=== PATIENT | male | born 1940 | race Caucasian/White ===

== ENCOUNTER 2022-05-02 13:42 | Emergency (ER) | payer MEDICARE, BC, SELFPAY ==
[2022-05-02 13:44] VITALS: BP 141/125; PULSE 75; RESP 18; TEMP 36.8; O2SAT 91; BMI 23.0
--- NOTE | 2022-05-02 15:20 | ED.VIS.LOWEX ---
HPI <CAYETANO Solis - Last Filed: 05/02/22 19:23> History of Present Illness Chief Complaint: Wound Narrative Narrative: Patient presents with an erythemic and seeping wound on the top of his right foot. He has had chronic wounds on this foot for the past 10+ years. He has seen wound care in the past and has been in and out of hospitals for this issue. He is now living at [facility] in [place] where the wound recently broke open. They were trying to treat with wound care but have been unsuccessful. Patient's sister reports that the detention advised him to come to the ED because they wanted him to see wound care. He has a permanent contracture of the right knee is not able to walk on his right foot without a walker. He ambulates using a wheelchair primarily. Patient denies any pain, fever, and chills. PFSH <CAYETANO Solis - Last Filed: 05/02/22 19:23> [facility] Medical History (Updated 05/02/22 @ 15:[address] Joel Redmond MD) Diabetes Heart failure Hyperlipidemia Hypertension Peripheral vascular disease Polyneuropathy Vascular dementia Allergy/AdvReac Type Severity Reaction Status Date / Time No Known Allergies Allergy Verified 05/02/22 13:43 Surgical History unable to obtain Social History Smoking Status: Unknown if ever smoked ROS <CAYETANO Solis - Last Filed: 05/02/22 19:23> ROS ED Constitutional Constitutional ED: Denies chills or fever(s) Eyes Eyes: Denies change in vision ENT ENT ED: Denies rhinorrhea or sore throat Cardiovascular Cardiovascular: Denies chest pain Respiratory/Chest Respiratory/Chest: Denies cough or dyspnea Gastrointestinal Gastrointestinal: Denies abdominal pain, constipation, diarrhea, nausea or vomiting Genitourinary Genitourinary ED: Denies dysuria Musculoskeletal Musculoskeletal: Denies arthralgias Integumentary Reports non-healing lesions and wounds Neurologic Neurologic: Denies weakness EXAM <CAYETANO Solis - Last Filed: 05/02/22 19:23> Physical Exam Const Vital Signs: 05/02/22 13:44 Temperature 98.2 F Temperature Source Temporal Pulse Rate 75 Respiratory Rate 18 Blood Pressure 141/125 H Blood Pressure Mean 130 Pulse Ox 91 Oxygen Delivery Method Room Air Positive well nourished HEENT Reports moist mucous membranes normocephalic and atraumatic Eyes PERRL Neck full ROM and supple Chest Wall inspection of chest normal Resp normal respiratory effort, no retractions and clear to auscultation bilaterally Auscultation: Negative for rales, rhonchi or wheezes Cardio regular rate, regular rhythm and no murmurs GI non-tender, non-distended and no masses Extremity Extremity Narrative: Patient has a chronic contracture of the right knee. Neuro oriented x3 Sensorium / Orientation: alert, oriented to person, oriented to place and oriented to time Skin Skin Narrative: Patient has a chronic erythematous wound on the top of the right foot. No signs of acute infection. Wound is not warm to the touch and is not seeping any purulent discharge. <Dr. Joel Redmond MD - Last Filed: 05/02/22 15:39> Physical Exam Const Vital Signs: 05/02/22 13:44 Temperature 98.2 F Temperature Source Temporal Pulse Rate 75 Respiratory Rate 18 Blood Pressure 141/125 H Blood Pressure Mean 130 Pulse Ox 91 Oxygen Delivery Method Room Air MDM <CAYETANO Solis - Last Filed: 05/02/22 19:23> [facility] Narrative Medical decision making narrative: No signs of acute infection of the right foot. He will be following up with wound care. There is no need for labs or x-ray. Patient is stable and can discharge with at home care. <Dr. Joel Redmond MD - Last Filed: 05/02/22 15:39> [facility] Narrative Medical decision making narrative: No signs of acute infection of the right foot. He will be following up with wound care. There is no need for labs or x-ray. Patient is stable and can discharge with at home care. I have personally performed a face to face assessment of the patient and have reviewed the KERMIT Note. I performed a substantive portion of the visit including all aspects of the following. My elizalde findings include: History is [evaluating this patient with our PA. 82-year-old male to local [facility] care facility has chronic wounds to his right foot. Sent to emergency department to be referred to the wound care center. This has been going on for 5 to 10 years. He has not had any fever. No recent injury.] Exam is [82-year-old male no acute distress. Vital signs stable afebrile. Initial blood pressure elevated at 141/125. That will need to be rechecked. Lungs are clear. Heart regular rhythm. Abdomen soft nontender. Moving all 4 extremities. The right knee is flexed about 90 degrees he is unable to extend it. That is chronic. His right lower leg has chronic venous stasis changes. And chronic wounds on the top of his right foot with breakdown of the skin. His toes on the right foot are contracted and hyperflexed. They have decreased range of motion. There is chronic swelling to the foot. Breakdown of the skin. There is no acute cellulitis or lymphangitic streaking. There is no inguinal lymphadenopathy.] Medical Decision Making [this is all chronic wound care problems of the patient's foot. Him and I discussed discussing possibly having this lower leg amputated below the knee. He will discuss that with other physicians. Will be cleaned and dressed to be discharged home.] Other additions or changes: [None] Discharge Plan Triage Chief Complaint: Wound ED Midlevel Provider: Jerrica Be ED Provider: Joel Redmond Dx/Rx/DC Orders Clinical Impression: Encounter for wound care Instructions: ED Wound Care Primary Care Provider: Michael Whitmore Referrals: Michael Whitmore, DO [Primary Care Provider] - As Needed Center,Wound [Non-Staff] - As soon as possible Activity Restrictions/Additional Instructions: Keep the area clean and apply antibiotic ointment daily. Call and follow-up with the wound care center soon as possible. Long-term I would discuss with them the possibility of having a lower leg amputation. Disposition Disposition: Home, Self Care Discharge Date/Time: 05/02/22 16:30
== END 2022-05-02 16:30 | disposition home or self-care (01) ==
PROVIDERS: Emergency Provider Emergency Medicine; PCP Family Medicine; Visit Provider Emergency Medicine
DX: S91.301A Unspecified open wound, right foot, initial encounter (principal); F01.50 Vascular dementia, unspecified severity, without behavioral disturbance, psychotic disturbance, mood disturbance, and anxiety; I11.0 Hypertensive heart disease with heart failure; I50.9 Heart failure, unspecified; E11.42 Type 2 diabetes mellitus with diabetic polyneuropathy; I73.9 Peripheral vascular disease, unspecified; M24.561 Contracture, right knee; E78.5 Hyperlipidemia, unspecified; I87.8 Other specified disorders of veins
CPT/HCPCS: 99282

== ENCOUNTER 2022-10-16 10:45 | Outpatient (RCR) | payer MEDICARE, BC, SELFPAY ==
[2022-10-02 09:12] VITALS: BP 106/54; PULSE 69; RESP 18; TEMP 36.2
--- NOTE | 2022-10-02 11:46 | HP.PCM_ITS ---
History of Present Illness Date of Service: 10/02/22 Chief Complaint: Nonhealing bilateral lower extremity ulcers History of Wound: Ms. Rodriguez is an 82-year-old who was brought in here from his [place] [facility] facility due to nonhealing bilateral lower extremity ulcers. Has had recurrent ulcerations for over 10 years with most recent episode being more severe late last year. He was seen at the emergency room and subsequently advised to follow-up at wound center which he did at [facility] without any significant improvement. A month ago, he was hospitalized for sepsis secondary to bilateral lower extremity ulcers. Following his admission and hospital stay, he did not return to the prior wound center. He reports a lot of drainage from his ulcers. They have been inconsistent dressing changes at his facility. He feels well otherwise and denies chills, fever. Currently has a PICC line and he is on IV vancomycin and cephalosporin. [facility] Medical History (Updated 10/02/22 @ 12:[address] Carlito Todd MD) Debility Diabetes Heart failure Hyperlipidemia Hypertension Peripheral vascular disease Polyneuropathy Ulcer of left lower extremity with fat layer exposed Ulcer of right heel and midfoot with fat layer exposed Ulcer of right lower extremity with fat layer exposed Vascular dementia Allergy/AdvReac Type Severity Reaction Status Date / Time No Known Allergies Allergy Verified 05/02/22 13:43 Social History Smoking Status: Never smoker ROS Constitutional Constitutional: Denies excessive sweating, fatigue, fever(s), headache(s), night sweats or snoring Eyes Eyes: Denies change in eye color, change in vision, diplopia, discharge from eye(s), discongugate gaze, erythema or excessive blinking ENT HEENT: Denies dysphagia, ear discharge, ear pain, epistaxis, facial pain, foreign body in nose, halitosis, headache(s) or hearing loss Cardiovascular Cardiovascular: Reports leg ulcers; Denies cold extremities, cyanosis, diaphoresis, dyspnea or dyspnea at rest Respiratory/Chest Respiratory/Chest: Denies difficulty clearing secretions, dry cough, excessive phlegm production, hemoptysis, hoarseness, inability to speak or mouth breathing Gastrointestinal Gastrointestinal: Denies belching, chewing difficulty, coffee ground emesis, dry heaves, dysphagia or excessive flatus Genitourinary Genitourinary: Denies flank pain Musculoskeletal Musculoskeletal: Reports extremity pain, joint pain, joint stiffness and limited range of motion; Denies tremors Neurologic Neurologic: Denies abnormal speech, behavior changes, dizziness, headache(s), loss of vision, memory loss or numbness Psychiatric Psychiatric: Denies behavioral changes, confusion, difficulty concentrating, hallucinations, homicidal ideation, hopelessness, irritability or memory loss Endocrine Endocrinology: Denies deepening of the voice, flushing, heat intolerance, palpitations, polydipsia, polyphagia or polyuria Allergic/Immunologic Allergic/Immunologic: Denies lip swelling, tongue swelling, hives, urticaria, eczemia or wheezing Vital Signs Vital Signs Vital Signs: 10/02/22 09:12 Temperature 97.1 F L Temperature Source Temporal Pulse Rate 69 Respiratory Rate 18 Blood Pressure 106/54 L Blood Pressure Mean 71 Blood Pressure Source Monitor Physical Exam Const alert and no apparent distress General Appearance: cooperative and comfortable HEENT normocephalic, head/scalp atraumatic and hearing grossly normal bilaterally Head and Scalp: normal to inspection, normocephalic and atraumatic Eyes EOMs intact bilaterally Neck full ROM General: normal visual inspection Resp normal respiratory effort Effort and Inspection: able to speak in complete sentences Extremity General Extremity: deformity Skin Wounds: wounds noted Neuro CN's II-XII intact bilaterally, moves all extremities and no focal motor deficits Psych mental status grossly normal Appearance: grossly normal Attitude: calm Activity / Motor Behavior: appropriate eye contact Debridement Note Debridement Note Wound debrided: Left Lateral ankle/Lower extremity Type of Debridement: Excisional debridement Anesthesia Used: 4% Lidocaine Solution Depth: Down to and including healthy tissue and in the subcutaneous layer Percentage of wound debrided: 100 Instrument Used: 5mm curette, #15 blade and Forceps Tissue Removed: Slough and devitalized tissue Severity: Fat Layer Exposed Amount of bleeding with debridement: Mild Bleeding Controlled with: Pressure Patient tolerated procedure: Patient tolerated procedure well Post-Debridement Measurements and Additional Note: Post-Debridement Measurements/Treatment - Nurse 1 - General Ulcer Assessment Start: 10/02/22 09:12 Freq: Status: Active Protocol: MARTA Activity Type Activity Date Activity User E-sign Co-sign Detail Recorded Client Recorded Date Recorded By Document 10/02/22 09:12 DL [id number] 10/02/22 09:51 DL 10/02/22 09:12 - Today's Visit Information Type of service Initial Visit Arrival Mode Wheelchair Patient Identification Verified (Name & Yes ) Patient Requires Transmission-Based No Precautions Vital Signs Temperature (97.8 F-99.1 F) 97.1 F L Temperature Source Temporal Pulse Rate (60-100) 69 Respiratory Rate (12-18) 18 Respiratory rate source Observation Blood Pressure (90/60-120/80) 106/54 L Blood Pressure Mean 71 Source Monitor History Since Last Visit- (Skip if this is Patient's initial visit) Left Footwear Surgical Shoe with pressure relief insole Right Footwear Surgical Shoe with pressure relief insole Pain Scale: 0-10 Numeric Is Patient Pain Free? Yes Communication Assessment Preferred language Tongan Able to Read Yes Able to Write Yes Communication Tools None Right Hearing Abillity Normal Left Hearing Abillity Normal Visual Assistive Devices Glasses Teaching Assessment Preferences Verbal,Written, Demonstration Barriers to Learning None Readiness To Learn Fair Willingness to Engage in Self Management Med Activies Readiness to Engage in Self Management Med Activities Anxiety Level Calm Cooperation Cooperative Perception Coherent Interest in Health Problem Asks Questions Education Importance Acknowledges Need Does Patient Smoke tobacco or other No substances Smoking Status Never smoker Is Patient Diabetic Yes Functional Assessment Recent Decline in Ability to Perform Bathing,Lower Body Dressing, Transferring Culture/Voodoo/Specialized Developer Cultural/Voodoo Needs that may affect No Treatment Plan Would you allow our hospital director of business applications to No meet you for the purpose of spiritual/ emotional support? Specialized Developer to contact place of scientology No Teaching: Wound Center Dressing Your Wound -Person Taught Patient Discharge Instructions -Person Taught Patient Diagnostic Tests Ordered -Person Taught Patient *Venous -Person Taught Patient WC - Nurse 1 - General Ulcer Measurement Start: 10/02/22 09:12 Freq: Status: Active Protocol: Activity Type Activity Date Activity User E-sign Co-sign Detail Recorded Client Recorded Date Recorded By Document 10/02/22 09:12 DL [id number] 10/02/22 09:51 DL 10/02/22 09:12 Wound Center Nurse 1 #5 L Med foot -Current Size (cm) - Length 6.8 -Current Size (cm) - Width 3.5 -Current Size (cm) - Depth 0.1 -Total Square Cm 23.80 -Photo Taken Yes -Exudate Amt Medium -Exudate Type Serosanguineous -Wound Margin Thickened -Granulation Amt None Present (0 %) -Necrosis Amt Large (67-100%) -Necrotic Tissue Type Adherent Slough -Structure Exposed N/A -Texture (Yuliet-wound Skin Appearance) Scarring -Moisture (Yuliet-wound Skin Appearance) Dry/Scaly -Color (Yuliet-wound Skin Appearance) Hemosiderin Staining -Temperature (Yuliet-wound Skin No Abnormality Appearance) (Pt Warm) -Tenderness on Palpation (Yuliet-wound No Skin Appearance) -Ulcer Cleansing Soap and Water -Foul Odor after Cleansing No -Anesthetic Used 4% Lidocaine Solution #4 L Lat Foot -Current Size (cm) - Length 1.2 -Current Size (cm) - Width 1.5 -Current Size (cm) - Depth 0.1 -Total Square Cm 1.80 -Photo Taken Yes -Exudate Amt Medium -Exudate Type Serosanguineous -Wound Margin Thickened -Granulation Amt None Present (0 %) -Necrosis Amt Large (67-100%) -Necrotic Tissue Type Adherent Slough -Structure Exposed N/A -Texture (Yuliet-wound Skin Appearance) Scarring -Moisture (Yuliet-wound Skin Appearance) Dry/Scaly -Color (Yuliet-wound Skin Appearance) Hemosiderin Staining -Temperature (Yuliet-wound Skin No Abnormality Appearance) (Pt Warm) -Tenderness on Palpation (Yuliet-wound No Skin Appearance) -Ulcer Cleansing Soap and Water -Foul Odor after Cleansing No -Anesthetic Used 4% Lidocaine Solution #3 R Med Foot -Current Size (cm) - Length 2 -Current Size (cm) - Width 7 -Current Size (cm) - Depth 0.1 -Total Square Cm 14 -Photo Taken Yes -Exudate Amt Small -Exudate Type Serosanguineous -Wound Margin Thickened -Granulation Amt None Present (0 %) -Necrosis Amt Large (67-100%) -Necrotic Tissue Type Adherent Slough -Structure Exposed N/A -Texture (Yuliet-wound Skin Appearance) Scarring -Moisture (Yuliet-wound Skin Appearance) Dry/Scaly -Color (Yuliet-wound Skin Appearance) Hemosiderin Staining -Temperature (Yuliet-wound Skin No Abnormality Appearance) (Pt Warm) -Ulcer Cleansing Soap and Water -Foul Odor after Cleansing No -Anesthetic Used 4% Lidocaine Solution #2 R Lat foot -Current Size (cm) - Length 6 -Current Size (cm) - Width 8.5 -Current Size (cm) - Depth 0.1 -Total Square Cm 51.0 -Photo Taken Yes -Exudate Amt Medium -Exudate Type Serosanguineous -Wound Margin Thickened -Granulation Amt None Present (0 %) -Necrosis Amt Large (67-100%) -Necrotic Tissue Type Adherent Slough -Texture (Yuliet-wound Skin Appearance) Scarring -Moisture (Yuliet-wound Skin Appearance) Dry/Scaly -Color (Yuliet-wound Skin Appearance) Hemosiderin Staining -Temperature (Yuliet-wound Skin No Abnormality Appearance) (Pt Warm) -Tenderness on Palpation (Yuliet-wound Yes Skin Appearance) -Ulcer Cleansing Soap and Water -Foul Odor after Cleansing No -Anesthetic Used 4% Lidocaine Solution #1 R Heel -Current Size (cm) - Length 3.5 -Current Size (cm) - Width 4 -Current Size (cm) - Depth 0.1 -Total Square Cm 14.0 -Photo Taken Yes -Exudate Amt Medium -Exudate Type Serosanguineous -Wound Margin Thickened -Granulation Amt None Present (0 %) -Necrosis Amt Large (67-100%) -Necrotic Tissue Type Adherent Slough -Structure Exposed N/A -Texture (Yuliet-wound Skin Appearance) Scarring -Moisture (Yuliet-wound Skin Appearance) Dry/Scaly -Color (Yuliet-wound Skin Appearance) Hemosiderin Staining -Temperature (Yuliet-wound Skin No Abnormality Appearance) (Pt Warm) -Tenderness on Palpation (Yuliet-wound No Skin Appearance) -Ulcer Cleansing Soap and Water -Foul Odor after Cleansing No -Anesthetic Used 4% Lidocaine Solution Right Calf (cm) 35 Right Ankle (cm) 24 Left Calf (cm) 33.8 Left Ankle (cm) 23.5 WC - Nurse 2 - General Ulcer CM Notes Start: 10/02/22 09:12 Freq: Status: Active Protocol: Activity Type Activity Date Activity User E-sign Co-sign Detail Recorded Client Recorded Date Recorded By Document 10/02/22 10:27 MW [id number] 10/02/22 10:59 MW 10/02/22 10:27 Wound Center Nurse 2 #5 L Med foot -Time 10:37 -Correct Patient Yes -Correct Side, Site, Position Yes -Correct Procedure Yes -Procedure Performed Yes -Type of Procedure Debridement -Clinical Debridement Subcutaneous -Tissue Removed Subcutaneous -Post Debridement (cm) - Length 7.5 -Post Debridement (cm) - Width 5.0 -Post Debridement (cm) - Depth 0.1 -Total Square (Post) (cm) 37.50 -Area of Debridement (cm) - Length 7.5 -Area of Debridement (cm) - Width 5.0 -Total Square (Area) (cm) 37.50 -Tunneling No -Undermining/Tunneling No -Circular Undermining No -Wound/Ulcer Outcome Not Healed -Ulcer Cleansing Rinsed/ Irrigated with Saline -Foul Odor after Cleansing No -Bioengineered Tissue No -Bleeding Controlled with Pressure -Treatment Response Procedure Tolerated Well -Offloading No -Debridement - Subq, 1st 20sq cm Yes -Debridement, SubQ, ea addt'l 20sq cm 8 or part thereof #4 L Lat Foot -Time 10:38 -Correct Patient Yes -Correct Side, Site, Position Yes -Correct Procedure Yes -Procedure Performed Yes -Type of Procedure Debridement -Clinical Debridement Subcutaneous -Tissue Removed Subcutaneous -Post Debridement (cm) - Length 1.5 -Post Debridement (cm) - Width 1.5 -Post Debridement (cm) - Depth 0.1 -Total Square (Post) (cm) 2.25 -Area of Debridement (cm) - Length 1.5 -Area of Debridement (cm) - Width 1.5 -Total Square (Area) (cm) 2.25 -Tunneling No -Undermining/Tunneling No -Circular Undermining No -Wound/Ulcer Outcome Not Healed -Ulcer Cleansing Rinsed/ Irrigated with Saline -Foul Odor after Cleansing No -Bioengineered Tissue No -Bleeding Controlled with Pressure -Treatment Response Procedure Tolerated Well -Offloading No -Debridement - Subq, 1st 20sq cm No #3 R Med Foot -Time 10:38 -Correct Patient Yes -Correct Side, Site, Position Yes -Correct Procedure Yes -Procedure Performed Yes -Type of Procedure Debridement -Clinical Debridement Subcutaneous -Tissue Removed Subcutaneous -Post Debridement (cm) - Length 8.5 -Post Debridement (cm) - Width 10.0 -Post Debridement (cm) - Depth 0.2 -Total Square (Post) (cm) 85.00 -Area of Debridement (cm) - Length 8.5 -Area of Debridement (cm) - Width 10.0 -Total Square (Area) (cm) 85.00 -Tunneling No -Undermining/Tunneling No -Circular Undermining No -Wound/Ulcer Outcome Not Healed -Ulcer Cleansing Rinsed/ Irrigated with Saline -Foul Odor after Cleansing No -Bioengineered Tissue No -Bleeding Controlled with Pressure -Treatment Response Procedure Tolerated Well -Offloading No -Debridement - Subq, 1st 20sq cm No #2 R Lat foot -Time 10:39 -Correct Patient Yes -Correct Side, Site, Position Yes -Correct Procedure Yes -Procedure Performed Yes -Type of Procedure Debridement -Clinical Debridement Subcutaneous -Tissue Removed Subcutaneous -Post Debridement (cm) - Length 5.0 -Post Debridement (cm) - Width 7.5 -Post Debridement (cm) - Depth 0.1 -Total Square (Post) (cm) 37.50 -Area of Debridement (cm) - Length 5.0 -Area of Debridement (cm) - Width 7.5 -Total Square (Area) (cm) 37.50 -Tunneling No -Undermining/Tunneling No -Circular Undermining No -Wound/Ulcer Outcome Not Healed -Ulcer Cleansing Rinsed/ Irrigated with Saline -Foul Odor after Cleansing No -Bioengineered Tissue No -Bleeding Controlled with Pressure -Treatment Response Procedure Tolerated Well -Offloading No -Debridement - Subq, 1st 20sq cm No #1 R Heel -Time 10:39 -Correct Patient Yes -Correct Side, Site, Position Yes -Correct Procedure Yes -Procedure Performed Yes -Type of Procedure Debridement -Clinical Debridement Subcutaneous -Tissue Removed Subcutaneous -Post Debridement (cm) - Length 1.0 -Post Debridement (cm) - Width 0.8 -Post Debridement (cm) - Depth 0.1 -Total Square (Post) (cm) 0.80 -Area of Debridement (cm) - Length 1.0 -Area of Debridement (cm) - Width 0.8 -Total Square (Area) (cm) 0.80 -Tunneling No -Undermining/Tunneling No -Circular Undermining No -Wound/Ulcer Outcome Not Healed -Ulcer Cleansing Rinsed/ Irrigated with Saline -Foul Odor after Cleansing No -Bioengineered Tissue No -Bleeding Controlled with Pressure -Treatment Response Procedure Tolerated Well -Offloading No -Debridement - Subq, 1st 20sq cm No Pain Scale: 0-10 Numeric Is Patient Pain Free? Yes Additional Wound Wound debrided: Left medial ankle/lower extremity Type of Debridement: Excisional debridement Anesthesia Used: 4% Lidocaine Solution Depth: Down to and including healthy tissue and in the subcutaneous layer Percentage of wound debrided: 100 Instrument Used: 5mm curette, #15 blade and Forceps Tissue Removed: Slough and devitalized tissue Severity: Fat Layer Exposed Amount of bleeding with debridement: Mild Bleeding Controlled with: Pressure Patient tolerated procedure: Patient tolerated procedure well Additional Wound Wound debrided: Right medial ankle/lower extremity Type of Debridement: Excisional debridement Anesthesia Used: 4% Lidocaine Solution Depth: Down to and including healthy tissue and in the subcutaneous layer Percentage of wound debrided: 100 Instrument Used: 5mm curette, #15 blade and Forceps Tissue Removed: Slough and devitalized tissue Severity: Fat Layer Exposed Amount of bleeding with debridement: Mild Bleeding Controlled with: Pressure Patient tolerated procedure: Patient tolerated procedure well Additional Wound Wound debrided: Right heel Type of Debridement: Excisional debridement Anesthesia Used: 4% Lidocaine Solution Depth: Down to and including healthy tissue and in the subcutaneous layer Percentage of wound debrided: 100 Instrument Used: 5mm curette, #15 blade and Forceps Tissue Removed: Slough and devitalized tissue Severity: Fat Layer Exposed Amount of bleeding with debridement: Mild Bleeding Controlled with: Pressure Patient tolerated procedure: Patient tolerated procedure well Additional Wound Wound debrided: Right lower extremity( Lateral ) Type of Debridement: Excisional debridement Anesthesia Used: 5% Lidocaine Gel Depth: Down to and including healthy tissue and in the subcutaneous layer Instrument Used: 5mm curette, #15 blade and Forceps Tissue Removed: Slough and devitalized tissue Severity: Fat Layer Exposed Amount of bleeding with debridement: Mild Bleeding Controlled with: Pressure Patient tolerated procedure: Patient tolerated procedure well Charges/Coding Visit Charges Office Visits / Consults: [id number] OV L4 New Procedures Integumentary [id number]: [id number] Samina subq tissue 20 sq cm/< Add On Codes: [id number] Samina subq tissue add-on (x8 additional square centimeter debrided, please refer to clinical note. ) Assessment/Plan Assessment/Plan (1) Ulcer of right lower extremity with fat layer exposed: CODE(S): L97.912 - Non-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 (2) Ulcer of left lower extremity with fat layer exposed: CODE(S): L97.922 - Non-pressure chronic ulcer of unspecified part of left lower leg with fat layer exposed (3) Ulcer of right heel and midfoot with fat layer exposed: CODE(S): L97.412 - Non-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 Significant crusting and dry slough debrided. Poor overall ulcer hygiene and dressing c hanges. Dried up gauze noted in some of the ulcers. Currently on IV antibiotics, no cultures taken. Aquacel extra to all ulcers, cover with gauze. Change daily to twice daily depending on drainage. Tubigrip for edema management. Leg elevation, optimize protein and nutrition. Will review labs from recent hospital stay. Caregiver present during visit and she states that she will relay information to facility as well. Their questions were answered and they were advised to let us know if they have any further questions or concerns. Follow-up in 1 week or sooner if needed. This note was generated with [employer] dictation software. It may contain incorrect words, spelling, and punctuation that were not noted in checking the note before signing.
[2022-10-09 10:57] VITALS: BP 102/54; PULSE 70; RESP 16; TEMP 36.2
--- NOTE | 2022-10-09 12:41 | PCM.WC.PN ---
History of Present Illness Date of Service: 10/09/22 Chief Complaint: Nonhealing bilateral lower extremity ulcers History of Wound: Ms. Rodriguez is an 82-year-old who was brought in here from his long term due to nonhealing bilateral lower extremity ulcers. Has had recurrent ulcerations for over 10 years with most recent episode being more severe late last year. He was seen at the emergency room and subsequently advised to follow-up at wound center which he did at [facility] without any significant improvement. A month ago, he was hospitalized for sepsis secondary to bilateral lower extremity ulcers. Following his admission and hospital stay, he did not return to the prior wound center. He reports a lot of drainage from his ulcers. They have been inconsistent dressing changes at his facility. He feels well otherwise and denies chills, fever. Currently has a PICC line and he is on IV vancomycin and cephalosporin. Progress of Wound: Presents with a new right dorsal ulcer. No known precipitating factor. Previous ulcers appear stable. Objective Data Objective Data Vital Signs: Vital Signs Temp Pulse Resp BP O2 Del Method 97.2 F L 70 16 102/54 L Room Air 10/09/22 10:57 10/09/22 10:57 10/09/22 10:57 10/09/22 10:57 10/09/22 10:57 Oxygen Delivery Method Room Air Charges/Coding Procedures Integumentary 111xxx-113xx: 28862 Samina subq tissue 20 sq cm/< Add On Codes: 29308 Samina subq tissue add-on (x4. Additional square centimeters debrided, please refer to clinical note.) Physical Exam Const alert and no apparent distress General Appearance: cooperative and comfortable HEENT normocephalic, head/scalp atraumatic and hearing grossly normal bilaterally Head and Scalp: normal to inspection, normocephalic and atraumatic Eyes EOMs intact bilaterally Neck full ROM General: normal visual inspection Resp normal respiratory effort Effort and Inspection: able to speak in complete sentences Extremity General Extremity: deformity Skin Wounds: wounds noted Neuro CN's II-XII intact bilaterally, moves all extremities and no focal motor deficits Psych mental status grossly normal Appearance: grossly normal Attitude: calm Activity / Motor Behavior: appropriate eye contact Debridement Note Debridement Note Wound debrided: Left Lateral ankle/Lower extremity Type of Debridement: Excisional debridement Anesthesia Used: 4% Lidocaine Solution Depth: Down to and including healthy tissue and in the subcutaneous layer Percentage of wound debrided: 100 Instrument Used: 5mm curette, #15 blade and Forceps Tissue Removed: Slough and devitalized tissue Severity: Fat Layer Exposed Amount of bleeding with debridement: Mild Bleeding Controlled with: Pressure Patient tolerated procedure: Patient tolerated procedure well Post-Debridement Measurements and Additional Note: Post-Debridement Measurements/Treatment SASHA - Nurse 1 - General Ulcer Assessment Start: 10/02/22 09:12 Freq: Status: Active Protocol: MARTA Activity Type Activity Date Activity User E-sign Co-sign Detail Recorded Client Recorded Date Recorded By Document 10/02/22 09:12 DL [id number] 10/02/22 09:51 DL Document 10/09/22 10:57 [facility] [id number] 10/09/22 11:22 BMF 10/02/22 10/09/22 09:12 10:57 - Today's Visit Information Type of service Initial Visit 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 ) Arrival Mode Wheelchair Wheelchair Transfer Assistance Other Transfer Assist (Other) 2 ASSIST Accompanied by ECF AIDE/ TRANSPORT Patient Identification Verified (Name & Yes Yes ) Patient Requires Transmission-Based No No Precautions Vital Signs Temperature (97.8 F-99.1 F) 97.1 F L 97.2 F L Temperature Source Temporal Temporal Pulse Rate (60-100) 69 70 Pulse Location Monitor Respiratory Rate (12-18) 18 16 Respiratory rate source Observation Observation Oxygen Delivery Method Room Air Blood Pressure (90/60-120/80) 106/54 L 102/54 L Blood Pressure Mean (mm Hg) 71 70 Source Monitor Monitor Position Sitting Blood Pressure Location Left Forearm History Since Last Visit- (Skip if this is Patient's initial visit) Have you changed medications since your No last visit? Any new allergies or adverse reactions No Had a fall/change in ADL's that may No increase risk of falls Signs or symptoms of abuse and/or No neglect since last visit Have you been in the hospital since your No last visit? Has dressing in place as prescribed Yes Has compression in place as prescribed N/A Has offloadiing in place as prescribed Yes Experienced any changes in pain level or No management Left Footwear Surgical Shoe Surgical Shoe with pressure with pressure relief insole relief insole Right Footwear Surgical Shoe Surgical Shoe with pressure with pressure relief insole relief insole Pain Scale: 0-10 Numeric Is Patient Pain Free? Yes Yes Communication Assessment Preferred language Uzbek Able to Read Yes Able to Write Yes Communication Tools None Right Hearing Abillity Normal Left Hearing Abillity Normal Visual Assistive Devices Glasses Teaching Assessment Preferences Verbal,Written, Demonstration Barriers to Learning None Readiness To Learn Fair Willingness to Engage in Self Management Med Activies Readiness to Engage in Self Management Med Activities Anxiety Level Calm Cooperation Cooperative Perception Coherent Interest in Health Problem Asks Questions Education Importance Acknowledges Need Does Patient Smoke tobacco or other No substances Smoking Status Never smoker Is Patient Diabetic Yes Functional Assessment Recent Decline in Ability to Perform Bathing,Lower Body Dressing, Transferring Culture/Uatsdin/Kiln Stoker Cultural/Uatsdin Needs that may affect No Treatment Plan Would you allow our hospital hydraulic modeling engineer to No meet you for the purpose of spiritual/ emotional support? Kiln Stoker to contact place of orthodoxy No Teaching: Wound Center Dressing Your Wound -Person Taught Patient Discharge Instructions -Person Taught Patient Diagnostic Tests Ordered -Person Taught Patient *Venous -Person Taught Patient WC - Nurse 1 - General Ulcer Measurement Start: 10/02/22 09:12 Freq: Status: Active Protocol: Activity Type Activity Date Activity User E-sign Co-sign Detail Recorded Client Recorded Date Recorded By Document 10/02/22 09:12 [id number] 10/02/22 09:51 DL Document 10/09/22 10:57 [facility] [id number] 10/09/22 11:22 [facility] 10/02/22 10/09/22 09:12 10:57 Wound Center Nurse 1 #6 R DORSAL foot -Current Size (cm) - Length 2.5 -Current Size (cm) - Width 6 -Current Size (cm) - Depth 0.1 -Total Square Cm 15.0 -Photo Taken Yes -Exudate Amt Medium -Exudate Type Serosanguineous -Wound Margin Distinct, Outline Attached -Granulation Amt Large (67-100%) -Granulation Quality Inchelium -Necrosis Amt Small (1-33%) -Necrotic Tissue Type Adherent Slough -Structure Exposed N/A -Texture (Yuliet-wound Skin Appearance) Friable, Scarring -Moisture (Yuliet-wound Skin Appearance) Dry/Scaly -Color (Yuliet-wound Skin Appearance) Hemosiderin Staining -Temperature (Yuliet-wound Skin No Abnormality Appearance) (Pt Warm) -Ulcer Cleansing Soap and Water -Foul Odor after Cleansing No -Anesthetic Used 4% Lidocaine Solution #5 L Med foot -Current Size (cm) - Length 6.8 2.5 -Current Size (cm) - Width 3.5 2.8 -Current Size (cm) - Depth 0.1 0.2 -Total Square Cm 23.80 7.00 -Photo Taken Yes Yes -Exudate Amt Medium Medium -Exudate Type Serosanguineous Serosanguineous -Wound Margin Thickened Distinct, Outline Attached -Granulation Amt None Present (0 Medium (34-66%) %) -Granulation Quality Inchelium -Necrosis Amt Large (67-100%) Medium (34-66%) -Necrotic Tissue Type Adherent Slough Adherent Slough -Structure Exposed N/A N/A -Texture (Yuliet-wound Skin Appearance) Scarring Friable, Scarring -Moisture (Yuliet-wound Skin Appearance) Dry/Scaly Dry/Scaly -Color (Yuliet-wound Skin Appearance) Hemosiderin Hemosiderin Staining Staining -Temperature (Yuliet-wound Skin No Abnormality No Abnormality Appearance) (Pt Warm) (Pt Warm) -Tenderness on Palpation (Yuliet-wound No No Skin Appearance) -Ulcer Cleansing Soap and Water Soap and Water -Foul Odor after Cleansing No No -Anesthetic Used 4% Lidocaine 4% Lidocaine Solution Solution #4 L Lat Foot -Current Size (cm) - Length 1.2 1.1 -Current Size (cm) - Width 1.5 1 -Current Size (cm) - Depth 0.1 0.2 -Total Square Cm 1.80 1.1 -Photo Taken Yes Yes -Exudate Amt Medium Medium -Exudate Type Serosanguineous Serosanguineous -Wound Margin Thickened Distinct, Outline Attached -Granulation Amt None Present (0 Medium (34-66%) %) -Granulation Quality Inchelium,Red -Necrosis Amt Large (67-100%) Medium (34-66%) -Necrotic Tissue Type Adherent Slough Adherent Slough -Structure Exposed N/A N/A -Texture (Yuliet-wound Skin Appearance) Scarring Friable, Scarring -Moisture (Yuliet-wound Skin Appearance) Dry/Scaly Dry/Scaly -Color (Yuliet-wound Skin Appearance) Hemosiderin Hemosiderin Staining Staining -Temperature (Yuliet-wound Skin No Abnormality No Abnormality Appearance) (Pt Warm) (Pt Warm) -Tenderness on Palpation (Yuliet-wound No No Skin Appearance) -Ulcer Cleansing Soap and Water Soap and Water -Foul Odor after Cleansing No No -Anesthetic Used 4% Lidocaine 4% Lidocaine Solution Solution #3 R Med Foot -Current Size (cm) - Length 2 5.4 -Current Size (cm) - Width 7 1.3 -Current Size (cm) - Depth 0.1 0.3 -Total Square Cm 14 7.02 -Photo Taken Yes Yes -Exudate Amt Small Medium -Exudate Type Serosanguineous Serosanguineous -Wound Margin Thickened Distinct, Outline Attached -Granulation Amt None Present (0 Medium (34-66%) %) -Granulation Quality Red -Necrosis Amt Large (67-100%) Medium (34-66%) -Necrotic Tissue Type Adherent Slough Adherent Slough -Structure Exposed N/A N/A -Texture (Yuliet-wound Skin Appearance) Scarring Friable, Scarring -Moisture (Yuliet-wound Skin Appearance) Dry/Scaly Dry/Scaly -Color (Yuliet-wound Skin Appearance) Hemosiderin Hemosiderin Staining Staining -Temperature (Yuliet-wound Skin No Abnormality No Abnormality Appearance) (Pt Warm) (Pt Warm) -Tenderness on Palpation (Yuliet-wound No Skin Appearance) -Ulcer Cleansing Soap and Water Soap and Water -Foul Odor after Cleansing No No -Anesthetic Used 4% Lidocaine 4% Lidocaine Solution Solution #2 R Lat foot -Current Size (cm) - Length 6 7.2 -Current Size (cm) - Width 8.5 4 -Current Size (cm) - Depth 0.1 0.3 -Total Square Cm 51.0 28.8 -Photo Taken Yes Yes -Exudate Amt Medium Medium -Exudate Type Serosanguineous Serosanguineous -Wound Margin Thickened Distinct, Outline Attached -Granulation Amt None Present (0 Medium (34-66%) %) -Granulation Quality Inchelium,Red -Necrosis Amt Large (67-100%) Medium (34-66%) -Necrotic Tissue Type Adherent Slough Adherent Slough -Structure Exposed N/A -Texture (Yuliet-wound Skin Appearance) Scarring Friable, Scarring -Moisture (Yuliet-wound Skin Appearance) Dry/Scaly Dry/Scaly -Color (Yuliet-wound Skin Appearance) Hemosiderin Hemosiderin Staining Staining -Temperature (Yuliet-wound Skin No Abnormality No Abnormality Appearance) (Pt Warm) (Pt Warm) -Tenderness on Palpation (Yuliet-wound Yes No Skin Appearance) -Ulcer Cleansing Soap and Water Soap and Water -Foul Odor after Cleansing No No -Anesthetic Used 4% Lidocaine 4% Lidocaine Solution Solution #1 R Heel -Current Size (cm) - Length 3.5 0.6 -Current Size (cm) - Width 4 0.6 -Current Size (cm) - Depth 0.1 0.1 -Total Square Cm 14.0 0.36 -Photo Taken Yes Yes -Exudate Amt Medium Small -Exudate Type Serosanguineous Serosanguineous -Wound Margin Thickened Distinct, Outline Attached -Granulation Amt None Present (0 Medium (34-66%) %) -Granulation Quality Inchelium -Necrosis Amt Large (67-100%) Medium (34-66%) -Necrotic Tissue Type Adherent Slough Adherent Slough -Structure Exposed N/A N/A -Texture (Yuliet-wound Skin Appearance) Scarring Scarring -Moisture (Yuliet-wound Skin Appearance) Dry/Scaly Dry/Scaly -Color (Yuliet-wound Skin Appearance) Hemosiderin Hemosiderin Staining Staining -Temperature (Yuliet-wound Skin No Abnormality No Abnormality Appearance) (Pt Warm) (Pt Warm) -Tenderness on Palpation (Yuliet-wound No No Skin Appearance) -Ulcer Cleansing Soap and Water Soap and Water -Foul Odor after Cleansing No No -Anesthetic Used 4% Lidocaine 5% Lidocaine Solution Gel Right Calf (cm) 35 Right Ankle (cm) 24 Left Calf (cm) 33.8 Left Ankle (cm) 23.5 WC - Nurse 2 - General Ulcer CM Notes Start: 10/02/22 09:12 Freq: Status: Active Protocol: Activity Type Activity Date Activity User E-sign Co-sign Detail Recorded Client Recorded Date Recorded By Document 10/02/22 10:27 MW [id number] 10/02/22 10:59 MW Document 10/09/22 11:30 MW [id number] 10/09/22 11:56 MW 10/02/22 10/09/22 10:27 11:30 Wound Center Nurse 2 #6 R DORSAL foot -Time 11:31 -Correct Patient Yes -Correct Side, Site, Position Yes -Correct Procedure Yes -Procedure Performed Yes -Type of Procedure Debridement -Clinical Debridement Subcutaneous -Tissue Removed Subcutaneous -Post Debridement (cm) - Length 2.5 -Post Debridement (cm) - Width 6.0 -Post Debridement (cm) - Depth 0.1 -Total Square (Post) (cm) 15.00 -Area of Debridement (cm) - Length 2.5 -Area of Debridement (cm) - Width 6.0 -Total Square (Area) (cm) 15.00 -Tunneling No -Undermining/Tunneling No -Circular Undermining No -Wound/Ulcer Outcome Not Healed -Ulcer Cleansing Rinsed/ Irrigated with Saline -Foul Odor after Cleansing No -Bioengineered Tissue No -Bleeding Controlled with Pressure -Treatment Response Procedure Tolerated Well -Offloading No -Debridement - Subq, 1st 20sq cm Yes -Debridement, SubQ, ea addt'l 20sq cm 4 or part thereof #5 L Med foot -Time 10:37 11:31 -Correct Patient Yes Yes -Correct Side, Site, Position Yes Yes -Correct Procedure Yes Yes -Procedure Performed Yes Yes -Type of Procedure Debridement Debridement -Clinical Debridement Subcutaneous Subcutaneous -Tissue Removed Subcutaneous Subcutaneous -Post Debridement (cm) - Length 7.5 5.5 -Post Debridement (cm) - Width 5.0 4.5 -Post Debridement (cm) - Depth 0.1 0.1 -Total Square (Post) (cm) 37.50 24.75 -Area of Debridement (cm) - Length 7.5 5.5 -Area of Debridement (cm) - Width 5.0 4.5 -Total Square (Area) (cm) 37.50 24.75 -Tunneling No No -Undermining/Tunneling No No -Circular Undermining No No -Wound/Ulcer Outcome Not Healed Not Healed -Ulcer Cleansing Rinsed/ Rinsed/ Irrigated with Irrigated with Saline Saline -Foul Odor after Cleansing No No -Bioengineered Tissue No No -Bleeding Controlled with Pressure Pressure -Treatment Response Procedure Procedure Tolerated Well Tolerated Well -Offloading No No -Debridement - Subq, 1st 20sq cm Yes No -Debridement, SubQ, ea addt'l 20sq cm 8 or part thereof #4 L Lat Foot -Time 10:38 11:32 -Correct Patient Yes Yes -Correct Side, Site, Position Yes Yes -Correct Procedure Yes Yes -Procedure Performed Yes Yes -Type of Procedure Debridement Debridement -Clinical Debridement Subcutaneous Subcutaneous -Tissue Removed Subcutaneous Subcutaneous -Post Debridement (cm) - Length 1.5 1.5 -Post Debridement (cm) - Width 1.5 1.1 -Post Debridement (cm) - Depth 0.1 0.1 -Total Square (Post) (cm) 2.25 1.65 -Area of Debridement (cm) - Length 1.5 1.5 -Area of Debridement (cm) - Width 1.5 1.1 -Total Square (Area) (cm) 2.25 1.65 -Tunneling No No -Undermining/Tunneling No No -Circular Undermining No No -Wound/Ulcer Outcome Not Healed Not Healed -Ulcer Cleansing Rinsed/ Rinsed/ Irrigated with Irrigated with Saline Saline -Foul Odor after Cleansing No No -Bioengineered Tissue No No -Bleeding Controlled with Pressure Pressure -Treatment Response Procedure Procedure Tolerated Well Tolerated Well -Offloading No No -Debridement - Subq, 1st 20sq cm No No #3 R Med Foot -Time 10:38 11:32 -Correct Patient Yes Yes -Correct Side, Site, Position Yes Yes -Correct Procedure Yes Yes -Procedure Performed Yes Yes -Type of Procedure Debridement Debridement -Clinical Debridement Subcutaneous Subcutaneous -Tissue Removed Subcutaneous Subcutaneous -Post Debridement (cm) - Length 8.5 2.0 -Post Debridement (cm) - Width 10.0 6.0 -Post Debridement (cm) - Depth 0.2 0.2 -Total Square (Post) (cm) 85.00 12.00 -Area of Debridement (cm) - Length 8.5 2.0 -Area of Debridement (cm) - Width 10.0 6.0 -Total Square (Area) (cm) 85.00 12.00 -Tunneling No No -Undermining/Tunneling No No -Circular Undermining No No -Wound/Ulcer Outcome Not Healed Not Healed -Ulcer Cleansing Rinsed/ Rinsed/ Irrigated with Irrigated with Saline Saline -Foul Odor after Cleansing No No -Bioengineered Tissue No No -Bleeding Controlled with Pressure Pressure -Treatment Response Procedure Tolerated Well -Offloading No No -Debridement - Subq, 1st 20sq cm No No #2 R Lat foot -Time 10:39 11:33 -Correct Patient Yes Yes -Correct Side, Site, Position Yes Yes -Correct Procedure Yes Yes -Procedure Performed Yes Yes -Type of Procedure Debridement Debridement -Clinical Debridement Subcutaneous Subcutaneous -Tissue Removed Subcutaneous Subcutaneous -Post Debridement (cm) - Length 5.0 4.5 -Post Debridement (cm) - Width 7.5 7.5 -Post Debridement (cm) - Depth 0.1 0.2 -Total Square (Post) (cm) 37.50 33.75 -Area of Debridement (cm) - Length 5.0 4.5 -Area of Debridement (cm) - Width 7.5 7.5 -Total Square (Area) (cm) 37.50 33.75 -Tunneling No No -Undermining/Tunneling No No -Circular Undermining No No -Wound/Ulcer Outcome Not Healed Not Healed -Ulcer Cleansing Rinsed/ Rinsed/ Irrigated with Irrigated with Saline Saline -Foul Odor after Cleansing No No -Bioengineered Tissue No No -Bleeding Controlled with Pressure Pressure -Treatment Response Procedure Procedure Tolerated Well Tolerated Well -Offloading No No -Debridement - Subq, 1st 20sq cm No No #1 R Heel -Time 10:39 11:33 -Correct Patient Yes Yes -Correct Side, Site, Position Yes Yes -Correct Procedure Yes Yes -Procedure Performed Yes Yes -Type of Procedure Debridement Debridement -Clinical Debridement Subcutaneous Subcutaneous -Tissue Removed Subcutaneous Subcutaneous -Post Debridement (cm) - Length 1.0 0.9 -Post Debridement (cm) - Width 0.8 0.6 -Post Debridement (cm) - Depth 0.1 0.1 -Total Square (Post) (cm) 0.80 0.54 -Area of Debridement (cm) - Length 1.0 0.9 -Area of Debridement (cm) - Width 0.8 0.6 -Total Square (Area) (cm) 0.80 0.54 -Tunneling No No -Undermining/Tunneling No No -Circular Undermining No No -Wound/Ulcer Outcome Not Healed Not Healed -Ulcer Cleansing Rinsed/ Rinsed/ Irrigated with Irrigated with Saline Saline -Foul Odor after Cleansing No No -Bioengineered Tissue No No -Bleeding Controlled with Pressure Pressure -Treatment Response Procedure Procedure Tolerated Well Tolerated Well -Offloading No No -Debridement - Subq, 1st 20sq cm No No Pain Scale: 0-10 Numeric Is Patient Pain Free? Yes Yes - Nurse 3 - General Ulcer D/C NN Start: 10/02/22 09:12 Freq: Status: Active Protocol: Activity Type Activity Date Activity User E-sign Co-sign Detail Recorded Client Recorded Date Recorded By Document 10/09/22 12:01 ADRIANA [id number] 10/09/22 12:12 ADRIANA 10/09/22 12:01 Wound Care Center Nurse 3 #6 R DORSAL foot -Ulcer Cleansing Rinsed/ Irrigated with Saline -Foul Odor after Cleansing No -Primary Dressing Applied Aquacel Extra, NonAdherent Contact Layer -Primary Dressing Covered/Secured with Dry Gauze & Roll Gauze, Secured with Tape -Aquacel Extra 1 #5 L Med foot -Ulcer Cleansing Rinsed/ Irrigated with Saline -Foul Odor after Cleansing No -Primary Dressing Applied NonAdherent Contact Layer -Other Dressing aquacel Ex -Primary Dressing Covered/Secured with Dry Gauze & Roll Gauze, Secured with Tape #4 L Lat Foot -Ulcer Cleansing Rinsed/ Irrigated with Saline -Foul Odor after Cleansing No -Primary Dressing Applied NonAdherent Contact Layer -Other Dressing auqacel ex -Primary Dressing Covered/Secured with Dry Gauze & Roll Gauze, Secured with Tape #3 R Med Foot -Ulcer Cleansing Rinsed/ Irrigated with Saline -Foul Odor after Cleansing No -Primary Dressing Applied NonAdherent Contact Layer -Other Dressing aquacel ex -Primary Dressing Covered/Secured with Dry Gauze & Roll Gauze, Secured with Tape #2 R Lat foot -Ulcer Cleansing Rinsed/ Irrigated with Saline -Foul Odor after Cleansing No -Primary Dressing Applied NonAdherent Contact Layer -Other Dressing aqucel ex -Primary Dressing Covered/Secured with Dry Gauze & Roll Gauze, Secured with Tape #1 R Heel -Ulcer Cleansing Rinsed/ Irrigated with Saline -Foul Odor after Cleansing No -Primary Dressing Applied NonAdherent Contact Layer -Other Dressing aqucel ex -Primary Dressing Covered/Secured with Dry Gauze & Roll Gauze, Secured with Tape -Other Covering padding Right -Tubular Bandage Single Layer -Size of Tubigrip Used Size D -Size D ($) 1 Left -Tubular Bandage Single Layer -Size of Tubigrip Used Size D -Size D ($) 1 Treatment Response Procedure Tolerated Well Pain Scale: 0-10 Numeric Is Patient Pain Free? Yes WC - Visit Discharge Discharge Condition Stable Ambulatory Status Wheelchair Transportation Private [facility] Facility Type Residential Care Facility Orders Sent Yes Additional Wound Wound debrided: Left medial ankle/lower extremity Type of Debridement: Excisional debridement Anesthesia Used: 4% Lidocaine Solution Depth: Down to and including healthy tissue and in the subcutaneous layer Percentage of wound debrided: 100 Instrument Used: 5mm curette, #15 blade and Forceps Tissue Removed: Slough and devitalized tissue Severity: Fat Layer Exposed Amount of bleeding with debridement: Mild Bleeding Controlled with: Pressure Patient tolerated procedure: Patient tolerated procedure well Additional Wound Wound debrided: Right medial ankle/lower extremity Type of Debridement: Excisional debridement Anesthesia Used: 4% Lidocaine Solution Depth: Down to and including healthy tissue and in the subcutaneous layer Percentage of wound debrided: 100 Instrument Used: 5mm curette, #15 blade and Forceps Tissue Removed: Slough and devitalized tissue Severity: Fat Layer Exposed Amount of bleeding with debridement: Mild Bleeding Controlled with: Pressure Patient tolerated procedure: Patient tolerated procedure well Additional Wound Wound debrided: Right heel Type of Debridement: Excisional debridement Anesthesia Used: 4% Lidocaine Solution Depth: Down to and including healthy tissue and in the subcutaneous layer Percentage of wound debrided: 100 Instrument Used: 5mm curette, #15 blade and Forceps Tissue Removed: Slough and devitalized tissue Severity: Fat Layer Exposed Amount of bleeding with debridement: Mild Bleeding Controlled with: Pressure Patient tolerated procedure: Patient tolerated procedure well Additional Wound Wound debrided: Right lower extremity( Lateral ) Type of Debridement: Excisional debridement Anesthesia Used: 5% Lidocaine Gel Depth: Down to and including healthy tissue and in the subcutaneous layer Instrument Used: 5mm curette, #15 blade and Forceps Tissue Removed: Slough and devitalized tissue Severity: Fat Layer Exposed Amount of bleeding with debridement: Mild Bleeding Controlled with: Pressure Patient tolerated procedure: Patient tolerated procedure well Additional Wound Wound debrided: Right Dorsal Foot Type of Debridement: Excisional debridement Anesthesia Used: 4% Lidocaine Solution Depth: Down to and including healthy tissue and in the subcutaneous layer Percentage of wound debrided: 100 Instrument Used: 7mm curette Tissue Removed: Slough and devitalized tissue Severity: Fat Layer Exposed Amount of bleeding with debridement: Mild Bleeding Controlled with: Pressure Patient tolerated procedure: Patient tolerated procedure well Assessment/Plan Assessment/Plan (1) Ulcer of right lower extremity with fat layer exposed: CODE(S): L97.912 - Non-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 (2) Ulcer of left lower extremity with fat layer exposed: CODE(S): L97.922 - Non-pressure chronic ulcer of unspecified part of left lower leg with fat layer exposed (3) Ulcer of right heel and midfoot with fat layer exposed: CODE(S): L97.412 - Non-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 New right dorsal foot ulceration but other ulcers appear stable/improved. Continue Aquacel extra to all ulcers, cover with gauze. Change daily to twice daily depending on drainage. Tubigrip for edema management. Leg elevation, optimize protein and nutrition. Will review labs from recent hospital stay. Caregiver present during visit and she states that she will relay information to facility as well. Their questions were answered and they were advised to let us know if they have any further questions or concerns. Follow-up in 1 week or sooner if needed. This note was generated with [employer] dictation software. It may contain incorrect words, spelling, and punctuation that were not noted in checking the note before signing.
[2022-10-16 10:54] VITALS: BP 103/49; PULSE 70; RESP 20; TEMP 36.8
--- NOTE | 2022-10-16 12:32 | PN.PCM_ITS ---
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 Has had recurrent ulcerations for over 10 years with most recent episode being more severe late last year. He was seen at the emergency room and subsequently advised to follow-up at a wound center which he did at [facility] without any significant improvement. A month ago, he was hospitalized for sepsis secondary to bilateral lower extremity ulcers. Following his admission and hospital stay, he did not return to the prior wound center. He reports a lot of drainage from his ulcers. They have been inconsistent dressing changes at his facility. He feels well otherwise and denies chills, fever. Currently has a PICC line and he is on IV vancomycin and cephalosporin. Progress of Wound: No new concerns at this time. Stable/improving ulcers. Objective Data Objective Data Vital Signs: Vital Signs Temp Pulse Resp BP O2 Del Method 98.2 F 70 20 H 103/49 L Room Air 10/16/22 10:54 10/16/22 10:54 10/16/22 10:54 10/16/22 10:54 10/09/22 10:57 Oxygen Delivery Method Room Air Charges/Coding Procedures Integumentary 111xxx-113xx: [id number] Samina subq tissue 20 sq cm/< Add On Codes: 30486 Samina subq tissue add-on (x3. Additional square centimeter debrided, please refer to clinical note.) Physical Exam Const alert and no apparent distress General Appearance: cooperative and comfortable HEENT normocephalic, head/scalp atraumatic and hearing grossly normal bilaterally Head and Scalp: normal to inspection, normocephalic and atraumatic Eyes EOMs intact bilaterally Neck full ROM General: normal visual inspection Resp normal respiratory effort Effort and Inspection: able to speak in complete sentences Extremity General Extremity: deformity Skin Wounds: wounds noted Neuro CN's II-XII intact bilaterally, moves all extremities and no focal motor deficits Psych mental status grossly normal Appearance: grossly normal Attitude: calm Activity / Motor Behavior: appropriate eye contact Debridement Note Debridement Note Wound debrided: Left Lateral ankle/Lower extremity Type of Debridement: Excisional debridement Anesthesia Used: 4% Lidocaine Solution Depth: Down to and including healthy tissue and in the subcutaneous layer Percentage of wound debrided: 100 Instrument Used: 5mm curette, #15 blade and Forceps Tissue Removed: Slough and devitalized tissue Severity: Fat Layer Exposed Amount of bleeding with debridement: Mild Bleeding Controlled with: Pressure Patient tolerated procedure: Patient tolerated procedure well Post-Debridement Measurements and Additional Note: Post-Debridement Measurements/Treatment SASHA - Nurse 1 - General Ulcer Assessment Start: 10/02/22 09:12 Freq: Status: Active Protocol: MARTA Activity Type Activity Date Activity User E-sign Co-sign Detail Recorded Client Recorded Date Recorded By Document 10/02/22 09:12 DL [id number] 10/02/22 09:51 DL Document 10/09/22 10:57 BM [id number] 10/09/22 11:22 BMF Document 10/16/22 10:54 DL [id number] 10/16/22 11:16 DL 10/02/22 10/09/22 10/16/22 09:12 10:57 10:54 - Today's Visit Information Type of service Initial Visit Follow-up Visit Follow-up Visit (Physician/ENAMEL PULVERIZER (Physician/ENAMEL PULVERIZER ) ) Arrival Mode Wheelchair Wheelchair Wheelchair Transfer Assistance Other Manual Transfer Assist (Other) 2 ASSIST x2 Accompanied by ECF AIDE/ TRANSPORT Patient Identification Verified (Name & Yes Yes No ) Patient Requires Transmission-Based No No Precautions Finger Stick Blood Sugar(mg/dl) (if not checked indicated): Blood Sugar Stated by Patient Vital Signs Temperature (97.8 F-99.1 F) 97.1 F L 97.2 F L 98.2 F Temperature Source Temporal Temporal Temporal Pulse Rate (60-100) 69 70 70 Pulse Location Monitor Monitor Respiratory Rate (12-18) 18 16 20 H Respiratory rate source Observation Observation Observation Oxygen Delivery Method Room Air Blood Pressure (90/60-120/80) 106/54 L 102/54 L 103/49 L Blood Pressure Mean (mm Hg) 71 70 67 Source Monitor Monitor Monitor Position Sitting Blood Pressure Location Left Forearm History Since Last Visit- (Skip if this is Patient's initial visit) Have you changed medications since your No No last visit? Any new allergies or adverse reactions No No Had a fall/change in ADL's that may No No increase risk of falls Signs or symptoms of abuse and/or No No neglect since last visit Have you been in the hospital since your No No last visit? Has dressing in place as prescribed Yes Yes Has compression in place as prescribed N/A Yes Has offloadiing in place as prescribed Yes N/A Experienced any changes in pain level or No No management Left Footwear Surgical Shoe Surgical Shoe with pressure with pressure relief insole relief insole Right Footwear Surgical Shoe Surgical Shoe with pressure with pressure relief insole relief insole Pain Scale: 0-10 Numeric Is Patient Pain Free? Yes Yes Yes Communication Assessment Preferred language Cymraes Able to Read Yes Able to Write Yes Communication Tools None Right Hearing Abillity Normal Left Hearing Abillity Normal Visual Assistive Devices Glasses Teaching Assessment Preferences Verbal,Written, Demonstration Barriers to Learning None Readiness To Learn Fair Willingness to Engage in Self Management Med Activies Readiness to Engage in Self Management Med Activities Anxiety Level Calm Cooperation Cooperative Perception Coherent Interest in Health Problem Asks Questions Education Importance Acknowledges Need Does Patient Smoke tobacco or other No substances Smoking Status Never smoker Is Patient Diabetic Yes Functional Assessment Recent Decline in Ability to Perform Bathing,Lower Body Dressing, Transferring Culture/Rastafarian/Rug Hooker Hand Cultural/Rastafarian Needs that may affect No Treatment Plan Would you allow our hospital inside plant supervisor to No meet you for the purpose of spiritual/ emotional support? Rug Hooker Hand to contact place of [facility] No Teaching: Wound Center Dressing Your Wound -Person Taught Patient Discharge Instructions -Person Taught Patient Diagnostic Tests Ordered -Person Taught Patient *Venous -Person Taught Patient WC - Nurse 1 - General Ulcer Measurement Start: 10/02/22 09:12 Freq: Status: Active Protocol: Activity Type Activity Date Activity User E-sign Co-sign Detail Recorded Client Recorded Date Recorded By Document 10/02/22 09:12 DL [id number] 10/02/22 09:51 DL Document 10/09/22 10:57 [facility] [id number] 10/09/22 11:22 BMF Document 10/16/22 10:54 DL [id number] 10/16/22 11:16 DL 10/02/22 10/09/22 10/16/22 09:12 10:57 10:54 Wound Center Nurse 1 #6 R DORSAL foot -Current Size (cm) - Length 2.5 0.1 -Current Size (cm) - Width 6 0.1 -Current Size (cm) - Depth 0.1 0.1 -Total Square Cm 15.0 0.01 -Photo Taken Yes No -Exudate Amt Medium Small -Exudate Type Serosanguineous Serosanguineous -Wound Margin Distinct, Distinct, Outline Outline Attached Attached -Granulation Amt Large (67-100%) Small (1-33%) -Granulation Quality [place] -Necrosis Amt Small (1-33%) Large (67-100%) -Necrotic Tissue Type Adherent Slough Adherent Slough -Structure Exposed N/A N/A -Texture (Yuliet-wound Skin Appearance) Friable, Scarring Scarring -Moisture (Yuliet-wound Skin Appearance) Dry/Scaly Dry/Scaly -Color (Yuliet-wound Skin Appearance) Hemosiderin Hemosiderin Staining Staining -Temperature (Yul[place]-wound Skin No Abnormality No Abnormality Appearance) (Pt Warm) (Pt Warm) -Tenderness on Palpation (Yuliet-wound No Skin Appearance) -Ulcer Cleansing Soap and Water Soap and Water -Foul Odor after Cleansing No No -Anesthetic Used 4% Lidocaine 4% Lidocaine Solution Solution #5 L Med foot -Current Size (cm) - Length 6.8 2.5 1.4 -Current Size (cm) - Width 3.5 2.8 6.7 -Current Size (cm) - Depth 0.1 0.2 0.3 -Total Square Cm 23.80 7.00 9.38 -Photo Taken Yes Yes No -Exudate Amt Medium Medium Small -Exudate Type Serosanguineous Serosanguineous Serosanguineous -Wound Margin Thickened Distinct, Distinct, Outline Outline Attached Attached -Granulation Amt None Present (0 Medium (34-66%) Medium (34-66%) %) -Granulation Quality [place] -Necrosis Amt Large (67-100%) Medium (34-66%) Medium (34-66%) -Necrotic Tissue Type Adherent Slough Adherent Slough Adherent Slough -Structure Exposed N/A N/A N/A -Texture (Yuliet-wound Skin Appearance) Scarring Friable, Scarring Scarring -Moisture (Yuliet-wound Skin Appearance) Dry/Scaly Dry/Scaly Dry/Scaly -Color (Yuliet-wound Skin Appearance) Hemosiderin Hemosiderin Hemosiderin Staining Staining Staining -Temperature (Yuliet-wound Skin No Abnormality No Abnormality No Abnormality Appearance) (Pt Warm) (Pt Warm) (Pt Warm) -Tenderness on Palpation (Yuliet-wound No No No Skin Appearance) -Ulcer Cleansing Soap and Water Soap and Water Soap and Water -Foul Odor after Cleansing No No No -Anesthetic Used 4% Lidocaine 4% Lidocaine 4% Lidocaine Solution Solution Solution #4 L Lat Foot -Current Size (cm) - Length 1.2 1.1 1 -Current Size (cm) - Width 1.5 1 1.9 -Current Size (cm) - Depth 0.1 0.2 0.2 -Total Square Cm 1.80 1.1 1.9 -Photo Taken Yes Yes -Exudate Amt Medium Medium Small -Exudate Type Serosanguineous Serosanguineous Serosanguineous -Wound Margin Thickened Distinct, Distinct, Outline Outline Attached Attached -Granulation Amt None Present (0 Medium (34-66%) None Present (0 %) %) -Granulation Quality [place],Red -Necrosis Amt Large (67-100%) Medium (34-66%) Large (67-100%) -Necrotic Tissue Type Adherent Slough Adherent Slough Adherent Slough -Structure Exposed N/A N/A N/A -Texture (Yuliet-wound Skin Appearance) Scarring Friable, Scarring Scarring -Moisture (Yuliet-wound Skin Appearance) Dry/Scaly Dry/Scaly Dry/Scaly -Color (Yuliet-wound Skin Appearance) Hemosiderin Hemosiderin Hemosiderin Staining Staining Staining -Temperature (Yuliet-wound Skin No Abnormality No Abnormality No Abnormality Appearance) (Pt Warm) (Pt Warm) (Pt Warm) -Tenderness on Palpation (Yuliet-wound No No No Skin Appearance) -Ulcer Cleansing Soap and Water Soap and Water Soap and Water -Foul Odor after Cleansing No No No -Anesthetic Used 4% Lidocaine 4% Lidocaine 4% Lidocaine Solution Solution Solution #3 R Med Foot -Current Size (cm) - Length 2 5.4 1.4 -Current Size (cm) - Width 7 1.3 6.7 -Current Size (cm) - Depth 0.1 0.3 0.3 -Total Square Cm 14 7.02 9.38 -Photo Taken Yes Yes No -Exudate Amt Small Medium Medium -Exudate Type Serosanguineous Serosanguineous Serosanguineous -Wound Margin Thickened Distinct, Distinct, Outline Outline Attached Attached -Granulation Amt None Present (0 Medium (34-66%) Medium (34-66%) %) -Granulation Quality [place] -Necrosis Amt Large (67-100%) Medium (34-66%) Medium (34-66%) -Necrotic Tissue Type Adherent Slough Adherent Slough Adherent Slough -Structure Exposed N/A N/A N/A -Texture (Yuliet-wound Skin Appearance) Scarring Friable, Scarring Scarring -Moisture (Yuliet-wound Skin Appearance) Dry/Scaly Dry/Scaly Dry/Scaly -Color (Yuliet-wound Skin Appearance) Hemosiderin Hemosiderin Hemosiderin Staining Staining Staining -Temperature (Yuliet-wound Skin No Abnormality No Abnormality No Abnormality Appearance) (Pt Warm) (Pt Warm) (Pt Warm) -Tenderness on Palpation (Yuliet-wound No Skin Appearance) -Ulcer Cleansing Soap and Water Soap and Water Soap and Water -Foul Odor after Cleansing No No No -Anesthetic Used 4% Lidocaine 4% Lidocaine 4% Lidocaine Solution Solution Solution #2 R Lat foot -Current Size (cm) - Length 6 7.2 4.1 -Current Size (cm) - Width 8.5 4 6.6 -Current Size (cm) - Depth 0.1 0.3 0.2 -Total Square Cm 51.0 28.8 27.06 -Photo Taken Yes Yes No -Exudate Amt Medium Medium Medium -Exudate Type Serosanguineous Serosanguineous Serosanguineous -Wound Margin Thickened Distinct, Distinct, Outline Outline Attached Attached -Granulation Amt None Present (0 Medium (34-66%) Medium (34-66%) %) -Granulation Quality [place],Red Pale -Necrosis Amt Large (67-100%) Medium (34-66%) Medium (34-66%) -Necrotic Tissue Type Adherent Slough Adherent Slough -Structure Exposed N/A N/A -Texture (Yuliet-wound Skin Appearance) Scarring Friable, Localized Edema Scarring -Moisture (Yuliet-wound Skin Appearance) Dry/Scaly Dry/Scaly Dry/Scaly -Color (Yuliet-wound Skin Appearance) Hemosiderin Hemosiderin Hemosiderin Staining Staining Staining -Temperature (Yuliet-wound Skin No Abnormality No Abnormality No Abnormality Appearance) (Pt Warm) (Pt Warm) (Pt Warm) -Tenderness on Palpation (Yuliet-wound Yes No No Skin Appearance) -Ulcer Cleansing Soap and Water Soap and Water Soap and Water -Foul Odor after Cleansing No No No -Anesthetic Used 4% Lidocaine 4% Lidocaine 4% Lidocaine Solution Solution Solution #1 R Heel -Current Size (cm) - Length 3.5 0.6 0.1 -Current Size (cm) - Width 4 0.6 0.1 -Current Size (cm) - Depth 0.1 0.1 0.1 -Total Square Cm 14.0 0.36 0.01 -Photo Taken Yes Yes No -Exudate Amt Medium Small Small -Exudate Type Serosanguineous Serosanguineous Serosanguineous -Wound Margin Thickened Distinct, Well Defined, Outline Not Attached Attached -Granulation Amt None Present (0 Medium (34-66%) Medium (34-66%) %) -Granulation Quality [place] -Necrosis Amt Large (67-100%) Medium (34-66%) Medium (34-66%) -Necrotic Tissue Type Adherent Slough Adherent Slough Adherent Slough -Structure Exposed N/A N/A N/A -Texture (Yuliet-wound Skin Appearance) Scarring Scarring Scarring -Moisture (Yuliet-wound Skin Appearance) Dry/Scaly Dry/Scaly Dry/Scaly -Color (Yuliet-wound Skin Appearance) Hemosiderin Hemosiderin Hemosiderin Staining Staining Staining -Temperature (Yuliet-wound Skin No Abnormality No Abnormality No Abnormality Appearance) (Pt Warm) (Pt Warm) (Pt Warm) -Tenderness on Palpation (Yuliet-wound No No Skin Appearance) -Ulcer Cleansing Soap and Water Soap and Water Soap and Water -Foul Odor after Cleansing No No No -Anesthetic Used 4% Lidocaine 5% Lidocaine 4% Lidocaine Solution Gel Solution Right Calf (cm) 35 34.5 Right Ankle (cm) 24 23.5 Left Calf (cm) 33.8 36 Left Ankle (cm) 23.5 23.5 WC - Nurse 2 - General Ulcer CM Notes Start: 10/02/22 09:12 Freq: Status: Active Protocol: Activity Type Activity Date Activity User E-sign Co-sign Detail Recorded Client Recorded Date Recorded By Document 10/02/22 10:27 MW [id number] 10/02/22 10:59 MW Document 04/13/23 11:30 MW [id number] 10/09/22 11:56 MW Document 10/16/22 11:37 MW [id number] 10/16/22 12:02 MW 10/02/22 10/09/22 10/16/22 10:27 11:30 11:37 Wound Center Nurse 2 #6 R DORSAL foot -Time 11:31 11:38 -Correct Patient Yes Yes -Correct Side, Site, Position Yes Yes -Correct Procedure Yes Yes -Procedure Performed Yes Yes -Type of Procedure Debridement Debridement -Clinical Debridement Subcutaneous Subcutaneous -Tissue Removed Subcutaneous Subcutaneous -Post Debridement (cm) - Length 2.5 1.5 -Post Debridement (cm) - Width 6.0 5.5 -Post Debridement (cm) - Depth 0.1 0.1 -Total Square (Post) (cm) 15.00 8.25 -Area of Debridement (cm) - Length 2.5 1.5 -Area of Debridement (cm) - Width 6.0 5.5 -Total Square (Area) (cm) 15.00 8.25 -Tunneling No No -Undermining/Tunneling No No -Circular Undermining No No -Wound/Ulcer Outcome Not Healed Not Healed -Ulcer Cleansing Rinsed/ Rinsed/ Irrigated with Irrigated with Saline Saline -Foul Odor after Cleansing No No -Bioengineered Tissue No No -Bleeding Controlled with Pressure Pressure -Treatment Response Procedure Procedure Tolerated Well Tolerated Well -Offloading No No -Debridement - Subq, 1st 20sq cm Yes Yes -Debridement, SubQ, ea addt'l 20sq cm 4 3 or part thereof #5 L Med foot -Time 10:37 11:31 11:38 -Correct Patient Yes Yes Yes -Correct Side, Site, Position Yes Yes Yes -Correct Procedure Yes Yes Yes -Procedure Performed Yes Yes Yes -Type of Procedure Debridement Debridement Debridement -Clinical Debridement Subcutaneous Subcutaneous Subcutaneous -Tissue Removed Subcutaneous Subcutaneous Subcutaneous -Post Debridement (cm) - Length 7.5 5.5 3.5 -Post Debridement (cm) - Width 5.0 4.5 4.5 -Post Debridement (cm) - Depth 0.1 0.1 0.2 -Total Square (Post) (cm) 37.50 24.75 15.75 -Area of Debridement (cm) - Length 7.5 5.5 3.5 -Area of Debridement (cm) - Width 5.0 4.5 4.5 -Total Square (Area) (cm) 37.50 24.75 15.75 -Tunneling No No No -Undermining/Tunneling No No No -Circular Undermining No No No -Wound/Ulcer Outcome Not Healed Not Healed Not Healed -Ulcer Cleansing Rinsed/ Rinsed/ Rinsed/ Irrigated with Irrigated with Irrigated with Saline Saline Saline -Foul Odor after Cleansing No No No -Bioengineered Tissue No No No -Bleeding Controlled with Pressure Pressure Pressure -Treatment Response Procedure Procedure Procedure Tolerated Well Tolerated Well Tolerated Well -Offloading No No No -Debridement - Subq, 1st 20sq cm Yes No No -Debridement, SubQ, ea addt'l 20sq cm 8 or part thereof #4 L Lat Foot -Time 10: 11:32 11:38 -Correct Patient Yes Yes Yes -Correct Side, Site, Position Yes Yes Yes -Correct Procedure Yes Yes Yes -Procedure Performed Yes Yes Yes -Type of Procedure Debridement Debridement Debridement -Clinical Debridement Subcutaneous Subcutaneous Subcutaneous -Tissue Removed Subcutaneous Subcutaneous Subcutaneous -Post Debridement (cm) - Length 1.5 1.5 1.5 -Post Debridement (cm) - Width 1.5 1.1 0.9 -Post Debridement (cm) - Depth 0.1 0.1 0.2 -Total Square (Post) (cm) 2.25 1.65 1.35 -Area of Debridement (cm) - Length 1.5 1.5 1.5 -Area of Debridement (cm) - Width 1.5 1.1 0.9 -Total Square (Area) (cm) 2.25 1.65 1.35 -Tunneling No No No -Undermining/Tunneling No No No -Circular Undermining No No No -Wound/Ulcer Outcome Not Healed Not Healed Not Healed -Ulcer Cleansing Rinsed/ Rinsed/ Rinsed/ Irrigated with Irrigated with Irrigated with Saline Saline Saline -Foul Odor after Cleansing No No No -Bioengineered Tissue No No No -Bleeding Controlled with Pressure Pressure Pressure -Treatment Response Procedure Procedure Procedure Tolerated Well Tolerated Well Tolerated Well -Offloading No No No -Debridement - Subq, 1st 20sq cm No No No #3 R Med Foot -Time 10:38 11:32 11:39 -Correct Patient Yes Yes Yes -Correct Side, Site, Position Yes Yes Yes -Correct Procedure Yes Yes Yes -Procedure Performed Yes Yes Yes -Type of Procedure Debridement Debridement Debridement -Clinical Debridement Subcutaneous Subcutaneous Subcutaneous -Tissue Removed Subcutaneous Subcutaneous Subcutaneous -Post Debridement (cm) - Length 8.5 2.0 1.5 -Post Debridement (cm) - Width 10.0 6.0 5.5 -Post Debridement (cm) - Depth 0.2 0.2 0.2 -Total Square (Post) (cm) 85.00 12.00 8.25 -Area of Debridement (cm) - Length 8.5 2.0 1.5 -Area of Debridement (cm) - Width 10.0 6.0 5.5 -Total Square (Area) (cm) 85.00 12.00 8.25 -Tunneling No No No -Undermining/Tunneling No No No -Circular Undermining No No No -Wound/Ulcer Outcome Not Healed Not Healed Not Healed -Ulcer Cleansing Rinsed/ Rinsed/ Rinsed/ Irrigated with Irrigated with Irrigated with Saline Saline Saline -Foul Odor after Cleansing No No No -Bioengineered Tissue No No No -Bleeding Controlled with Pressure Pressure Pressure -Treatment Response Procedure Procedure Tolerated Well Tolerated Well -Offloading No No No -Debridement - Subq, 1st 20sq cm No No No #2 R Lat foot -Time 10:39 11:33 11:39 -Correct Patient Yes Yes Yes -Correct Side, Site, Position Yes Yes Yes -Correct Procedure Yes Yes Yes -Procedure Performed Yes Yes Yes -Type of Procedure Debridement Debridement Debridement -Clinical Debridement Subcutaneous Subcutaneous Subcutaneous -Tissue Removed Subcutaneous Subcutaneous Subcutaneous -Post Debridement (cm) - Length 5.0 4.5 4.0 -Post Debridement (cm) - Width 7.5 7.5 7.0 -Post Debridement (cm) - Depth 0.1 0.2 0.2 -Total Square (Post) (cm) 37.50 33.75 28.00 -Area of Debridement (cm) - Length 5.0 4.5 4.0 -Area of Debridement (cm) - Width 7.5 7.5 7.0 -Total Square (Area) (cm) 37.50 33.75 28.00 -Tunneling No No No -Undermining/Tunneling No No No -Circular Undermining No No No -Wound/Ulcer Outcome Not Healed Not Healed Not Healed -Ulcer Cleansing Rinsed/ Rinsed/ Rinsed/ Irrigated with Irrigated with Irrigated with Saline Saline Saline -Foul Odor after Cleansing No No No -Bioengineered Tissue No No No -Bleeding Controlled with Pressure Pressure Pressure -Treatment Response Procedure Procedure Procedure Tolerated Well Tolerated Well Tolerated Well -Offloading No No No -Debridement - Subq, 1st 20sq cm No No No #1 R Heel -Time 10:39 11:33 11:39 -Correct Patient Yes Yes Yes -Correct Side, Site, Position Yes Yes Yes -Correct Procedure Yes Yes Yes -Procedure Performed Yes Yes Yes -Type of Procedure Debridement Debridement Debridement -Clinical Debridement Subcutaneous Subcutaneous Subcutaneous -Tissue Removed Subcutaneous Subcutaneous Subcutaneous -Post Debridement (cm) - Length 1.0 0.9 0.4 -Post Debridement (cm) - Width 0.8 0.6 0.2 -Post Debridement (cm) - Depth 0.1 0.1 0.1 -Total Square (Post) (cm) 0.80 0.54 0.08 -Area of Debridement (cm) - Length 1.0 0.9 0.4 -Area of Debridement (cm) - Width 0.8 0.6 0.2 -Total Square (Area) (cm) 0.80 0.54 0.08 -Tunneling No No No -Undermining/Tunneling No No No -Circular Undermining No No No -Wound/Ulcer Outcome Not Healed Not Healed Not Healed -Ulcer Cleansing Rinsed/ Rinsed/ Rinsed/ Irrigated with Irrigated with Irrigated with Saline Saline Saline -Foul Odor after Cleansing No No No -Bioengineered Tissue No No No -Bleeding Controlled with Pressure Pressure Pressure -Treatment Response Procedure Procedure Procedure Tolerated Well Tolerated Well Tolerated Well -Offloading No No No -Debridement - Subq, 1st 20sq cm No No No Pain Scale: 0-10 Numeric Is Patient Pain Free? Yes Yes Yes WC - Nurse 3 - General Ulcer D/C NN Start: 10/02/22 09:12 Freq: Status: Active Protocol: Activity Type Activity Date Activity User E-sign Co-sign Detail Recorded Client Recorded Date Recorded By Document 10/09/22 12:01 DL [id number] 10/09/22 12:12 DL Document 10/16/22 12:08 [facility] [id number] 10/16/22 12:12 BMF 10/09/22 10/16/22 12:01 12:08 Wound Care Center Nurse 3 #6 R DORSAL foot -Ulcer Cleansing Rinsed/ Rinsed/ Irrigated with Irrigated with Saline Saline -Foul Odor after Cleansing No No -Primary Dressing Applied Aquacel Extra, Aquacel Extra, NonAdherent NonAdherent Contact Layer Contact Layer -Other Dressing per dl ln -Primary Dressing Covered/Secured with Dry Gauze & Dry Gauze & Roll Gauze, Roll Gauze, Secured with Secured with Tape Tape -Aquacel Extra 1 2 #5 L Med foot -Ulcer Cleansing Rinsed/ Rinsed/ Irrigated with Irrigated with Saline Saline -Foul Odor after Cleansing No No -Primary Dressing Applied NonAdherent Aquacel Extra, Contact Layer NonAdherent Contact Layer -Other Dressing aquacel Ex per dl production planning manager -Primary Dressing Covered/Secured with Dry Gauze & Dry Gauze & Roll Gauze, Roll Gauze, Secured with Secured with Tape Tape -Other Covering abds -Aquacel Extra 0 #4 L Lat Foot -Ulcer Cleansing Rinsed/ Rinsed/ Irrigated with Irrigated with Saline Saline -Foul Odor after Cleansing No No -Primary Dressing Applied NonAdherent Aquacel Extra, Contact Layer NonAdherent Contact Layer -Other Dressing auqacel ex per dl production planning manager -Primary Dressing Covered/Secured with Dry Gauze & Dry Gauze & Roll Gauze, Roll Gauze, Secured with Secured with Tape Tape -Other Covering abds -Aquacel Extra 0 #3 R Med Foot -Ulcer Cleansing Rinsed/ Rinsed/ Irrigated with Irrigated with Saline Saline -Foul Odor after Cleansing No No -Primary Dressing Applied NonAdherent Aquacel Extra, Contact Layer NonAdherent Contact Layer -Other Dressing aquacel ex per dl production planning manager -Primary Dressing Covered/Secured with Dry Gauze & Dry Gauze & Roll Gauze, Roll Gauze, Secured with Secured with Tape Tape -Other Covering abd -Aquacel Extra 0 #2 R Lat foot -Ulcer Cleansing Rinsed/ Rinsed/ Irrigated with Irrigated with Saline Saline -Foul Odor after Cleansing No No -Primary Dressing Applied NonAdherent Aquacel Extra, Contact Layer NonAdherent Contact Layer -Other Dressing aqucel ex abds, per dl production planning manager -Primary Dressing Covered/Secured with Dry Gauze & Dry Gauze & Roll Gauze, Roll Gauze, Secured with Secured with Tape Tape -Aquacel Extra 0 #1 R Heel -Ulcer Cleansing Rinsed/ Rinsed/ Irrigated with Irrigated with Saline Saline -Foul Odor after Cleansing No No -Primary Dressing Applied NonAdherent Aquacel Extra, Contact Layer NonAdherent Contact Layer -Other Dressing aqucel ex abd; 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 Yes Yes WC - Visit Discharge Discharge Condition Stable Stable Ambulatory Status Wheelchair Wheelchair Transportation Private [facility] Facility Type Skilled Nursing Care Skilled Nursing Care Facility Facility Orders Sent Yes Additional Wound Wound debrided: Left medial ankle/lower extremity Type of Debridement: Excisional debridement Anesthesia Used: 4% Lidocaine Solution Depth: Down to and including healthy tissue and in the subcutaneous layer Percentage of wound debrided: 100 Instrument Used: 5mm curette, #15 blade and Forceps Tissue Removed: Slough and devitalized tissue Severity: Fat Layer Exposed Amount of bleeding with debridement: Mild Bleeding Controlled with: Pressure Patient tolerated procedure: Patient tolerated procedure well Additional Wound Wound debrided: Right medial ankle/lower extremity Type of Debridement: Excisional debridement Anesthesia Used: 4% Lidocaine Solution Depth: Down to and including healthy tissue and in the subcutaneous layer Percentage of wound debrided: 100 Instrument Used: 5mm curette, #15 blade and Forceps Tissue Removed: Slough and devitalized tissue Severity: Fat Layer Exposed Amount of bleeding with debridement: Mild Bleeding Controlled with: Pressure Patient tolerated procedure: Patient tolerated procedure well Additional Wound Wound debrided: Right heel Type of Debridement: Excisional debridement Anesthesia Used: 4% Lidocaine Solution Depth: Down to and including healthy tissue and in the subcutaneous layer Percentage of wound debrided: 100 Instrument Used: 5mm curette, #15 blade and Forceps Tissue Removed: Slough and devitalized tissue Severity: Fat Layer Exposed Amount of bleeding with debridement: Mild Bleeding Controlled with: Pressure Patient tolerated procedure: Patient tolerated procedure well Additional Wound Wound debrided: Right lower extremity( Lateral ) Type of Debridement: Excisional debridement Anesthesia Used: 4% Lidocaine Solution Depth: Down to and including healthy tissue and in the subcutaneous layer Instrument Used: 5mm curette, #15 blade and Forceps Tissue Removed: Slough and devitalized tissue Severity: Fat Layer Exposed Amount of bleeding with debridement: Mild Bleeding Controlled with: Pressure Patient tolerated procedure: Patient tolerated procedure well Additional Wound Wound debrided: Right Dorsal Foot Type of Debridement: Excisional debridement Anesthesia Used: 4% Lidocaine Solution Depth: Down to and including healthy tissue and in the subcutaneous layer Percentage of wound debrided: 100 Instrument Used: 7mm curette Tissue Removed: Slough and devitalized tissue Severity: Fat Layer Exposed Amount of bleeding with debridement: Mild Bleeding Controlled with: Pressure Patient tolerated procedure: Patient tolerated procedure well Assessment/Plan Assessment/Plan (1) Ulcer of right lower extremity with fat layer exposed: CODE(S): L97.912 - Non-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 (2) Ulcer of left lower extremity with fat layer exposed: CODE(S): L97.922 - Non-pressure chronic ulcer of unspecified part of left lower leg with fat layer exposed (3) Ulcer of right heel and midfoot with fat layer exposed: CODE(S): L97.412 - Non-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 Stable/improving ulcers. Continue Aquacel extra to all ulcers, cover with Adaptic and gauze. Change daily to twice daily depending on drainage. Tubigrip for edema management. Leg elevation, optimize protein and nutrition. Will review labs from recent hospital stay. Caregiver present during visit and she states that she will relay information to facility as well. Their questions were answered and they were advised to let us know if they have any further questions or concerns. Follow-up in 2 weeks or sooner if needed. This note was generated with [employer] software. It may contain incorrect words, spelling, and punctuation that were not noted in checking the note before signing.
== END 2022-10-26 23:59 | disposition home or self-care (01) ==
LOC: WC 10:45
PROVIDERS: PCP Family Medicine; Referring Provider Family Medicine; Visit Provider Internal Medicine
DX: E11.621 Type 2 diabetes mellitus with foot ulcer (principal); E11.51 Type 2 diabetes mellitus with diabetic peripheral angiopathy without gangrene; L97.412 Non-pressure chronic ulcer of right heel and midfoot with fat layer exposed; L97.922 Non-pressure chronic ulcer of unspecified part of left lower leg with fat layer exposed; I11.0 Hypertensive heart disease with heart failure; I50.9 Heart failure, unspecified; E11.42 Type 2 diabetes mellitus with diabetic polyneuropathy; R53.81 Other malaise; E78.5 Hyperlipidemia, unspecified
CPT/HCPCS: 11042; 11045; 99204; G0463

== ENCOUNTER 2022-11-20 10:45 | Outpatient (RCR) | payer MEDICARE, BC, SELFPAY ==
[2022-10-27 00:09] VITALS: BP 103/49; PULSE 70; RESP 20; TEMP 36.8
[2022-10-30 11:32] VITALS: BP 92/35; PULSE 70; RESP 18; TEMP 36.2
--- NOTE | 2022-10-30 12:59 | PCM.WC.PN ---
History of Present Illness Date of Service: 10/30/22 Chief Complaint: Nonhealing bilateral lower extremity ulcers History of Wound: Mr Wilson is an 82-year-old who was brought in here from his assisted due to nonhealing bilateral lower extremity ulcers. Has had recurrent ulcerations for over 10 years with most recent episode being more severe late last year. He was seen at the emergency room and subsequently advised to follow-up at a wound center which he did at [facility] without any significant improvement. A month ago, he was hospitalized for sepsis secondary to bilateral lower extremity ulcers. Following his admission and hospital stay, he did not return to the prior wound center. He reports a lot of drainage from his ulcers. They have been inconsistent dressing changes at his facility. He feels well otherwise and denies chills, fever. Currently has a PICC line and he is on IV vancomycin and cephalosporin. Progress of Wound: Overall stable ulcers. No new concerns at this time. Right heel ulcer is healed. Objective Data Objective Data Vital Signs: Vital Signs Temp Pulse Resp BP 97.1 F L 70 18 92/35 L 10/30/22 11:32 10/30/22 11:32 10/30/22 11:32 10/30/22 11:32 Charges/Coding Procedures Integumentary 111xxx-113xx: [id number] Samina subq tissue 20 sq cm/< Add On Codes: 86967 Samina subq tissue add-on (x3. Additional square centimeter debrided, please refer to clinical note.) Physical Exam Const alert and no apparent distress General Appearance: cooperative and comfortable HEENT normocephalic, head/scalp atraumatic and hearing grossly normal bilaterally Head and Scalp: normal to inspection, normocephalic and atraumatic Eyes EOMs intact bilaterally Neck full ROM General: normal visual inspection Resp normal respiratory effort Effort and Inspection: able to speak in complete sentences Extremity General Extremity: deformity Skin Wounds: wounds noted Neuro CN's II-XII intact bilaterally, moves all extremities and no focal motor deficits Psych mental status grossly normal Appearance: grossly normal Attitude: calm Activity / Motor Behavior: appropriate eye contact Debridement Note Debridement Note Wound debrided: Left Lateral ankle/Lower extremity Type of Debridement: Excisional debridement Anesthesia Used: 4% Lidocaine Solution Depth: Down to and including healthy tissue and in the subcutaneous layer Percentage of wound debrided: 100 Instrument Used: 5mm curette, #15 blade and Forceps Tissue Removed: Slough and devitalized tissue Severity: Fat Layer Exposed Amount of bleeding with debridement: Mild Bleeding Controlled with: Pressure Patient tolerated procedure: Patient tolerated procedure well Post-Debridement Measurements and Additional Note: Post-Debridement Measurements/Treatment - Nurse 1 - General Ulcer Assessment Start: 10/30/22 11:32 Freq: Status: Active Protocol: MARTA Activity Type Activity Date Activity User E-sign Co-sign Detail Recorded Client Recorded Date Recorded By Document 10/30/22 11:32 RB [id number] 10/30/22 11:45 RB 10/30/22 11:32 WC - Today's Visit Information Type of service Follow-up Visit (Physician/LENS EDGER ) Arrival Mode Wheelchair Transfer Assistance Manual Patient Identification Verified (Name & Yes ) Vital Signs Temperature (97.8 F-99.1 F) 97.1 F L Temperature Source Temporal Pulse Rate (60-100) 70 Pulse Location Monitor Respiratory Rate (12-18) 18 Respiratory rate source Observation Blood Pressure (90/60-120/80) 92/35 L Blood Pressure Mean (mm Hg) 54 Source Monitor Position Sitting Blood Pressure Location Left Arm History Since Last Visit- (Skip if this is Patient's initial visit) Have you changed medications since your No last visit? Any new allergies or adverse reactions No Had a fall/change in ADL's that may No increase risk of falls Signs or symptoms of abuse and/or No neglect since last visit Have you been in the hospital since your No last visit? Has dressing in place as prescribed Yes Has compression in place as prescribed No Has offloadiing in place as prescribed Yes Experienced any changes in pain level or No management Pain Scale: 0-10 Numeric Is Patient Pain Free? Yes - Nurse 1 - General Ulcer Measurement Start: 10/30/22 11:32 Freq: Status: Active Protocol: Activity Type Activity Date Activity User E-sign Co-sign Detail Recorded Client Recorded Date Recorded By Document 10/30/22 11:32 RB [id number] 10/30/22 11:45 RB 10/30/22 11:32 Wound Center Nurse 1 #1 R Heel -Combined with other wound No -Current Size (cm) - Length 0.1 -Current Size (cm) - Width 0.1 -Current Size (cm) - Depth 0.1 -Total Square Cm 0.01 -Epithelialization Large 67-100% -Tunneling No -Undermining/Tunneling No -Circular Undermining No -Exudate Amt None Present -Wound Margin Distinct, Outline Attached -Granulation Amt Large (67-100%) -Granulation Quality [place] -Slough/Fibrin No -Necrosis Amt None Present (0 %) -Structure Exposed N/A -Texture ([place]uliet-wound Skin Appearance) Assessed -Moisture ([place]ul[place]-wound Skin Appearance) Assessed -Color ([place]uliet-wound Skin Appearance) Assessed -Temperature ([place]ul[place]-wound Skin No Abnormality Appearance) (Pt Warm) -Tenderness on Palpation (Yuliet-wound No Skin Appearance) -Ulcer Cleansing Wound Cleanser -Foul Odor after Cleansing No #6 R DORSAL foot -Combined with other wound No -Current Size (cm) - Length 1.5 -Current Size (cm) - Width 5.5 -Current Size (cm) - Depth 0.1 -Total Square Cm 8.25 -Tunneling No -Undermining/Tunneling No -Circular Undermining No -Exudate Amt Medium -Exudate Type Serosanguineous -Wound Margin Distinct, Outline Attached -Granulation Amt Medium (34-66%) -Granulation Quality [place] -Slough/Fibrin Yes -Necrosis Amt Medium (34-66%) -Necrotic Tissue Type Adherent Slough -Structure Exposed N/A -Texture ([place]ul[place]-wound Skin Appearance) Assessed -Moisture ([place]ul[place]-wound Skin Appearance) Assessed,Dry/ Scaly -Color ([place]ul[place]-wound Skin Appearance) Assessed -Temperature ([place]-wound Skin No Abnormality Appearance) (Pt Warm) -Tenderness on Palpation ([place]ul[place]-wound No Skin Appearance) -Ulcer Cleansing Wound Cleanser -Foul Odor after Cleansing No -Anesthetic Used 5% Lidocaine Gel #5 L Med foot -Combined with other wound No -Current Size (cm) - Length 6 -Current Size (cm) - Width 3.7 -Current Size (cm) - Depth 0.2 -Total Square Cm 22.2 -Tunneling No -Undermining/Tunneling No -Circular Undermining No -Exudate Amt Medium -Exudate Type Serosanguineous -Wound Margin Distinct, Outline Attached -Granulation Amt Medium (34-66%) -Granulation Quality [place] -Slough/Fibrin Yes -Necrosis Amt Medium (34-66%) -Necrotic Tissue Type Adherent Slough -Structure Exposed N/A -Texture ([place]ul[place]-wound Skin Appearance) Assessed -Moisture ([place]ul[place]-wound Skin Appearance) Assessed,Dry/ Scaly -Color (Yuliet-wound Skin Appearance) Assessed -Temperature ([place]ul[place]-wound Skin No Abnormality Appearance) (Pt Warm) -Tenderness on Palpation ([place]uliet-wound No Skin Appearance) -Ulcer Cleansing Wound Cleanser -Foul Odor after Cleansing No -Anesthetic Used 5% Lidocaine Gel #4 L Lat Foot -Combined with other wound No -Current Size (cm) - Length 0.8 -Current Size (cm) - Width 2 -Current Size (cm) - Depth 0.2 -Total Square Cm 1.6 -Tunneling No -Undermining/Tunneling No -Circular Undermining No -Exudate Amt Medium -Exudate Type Serosanguineous -Wound Margin Distinct, Outline Attached -Granulation Amt Medium (34-66%) -Granulation Quality [place] -Slough/Fibrin Yes -Necrosis Amt Large (67-100%) -Necrotic Tissue Type Adherent Slough -Structure Exposed N/A -Texture (Yuliet-wound Skin Appearance) Assessed -Moisture (Yuliet-wound Skin Appearance) Dry/Scaly -Color (Yuliet-wound Skin Appearance) Assessed -Temperature ([place]ul[place]-wound Skin No Abnormality Appearance) (Pt Warm) -Tenderness on Palpation (Yuliet-wound No Skin Appearance) -Ulcer Cleansing Wound Cleanser -Foul Odor after Cleansing No -Anesthetic Used 5% Lidocaine Gel #3 R Med Foot -Combined with other wound No -Current Size (cm) - Length 1.2 -Current Size (cm) - Width 6 -Current Size (cm) - Depth 0.1 -Total Square Cm 7.2 -Tunneling No -Undermining/Tunneling No -Circular Undermining No -Exudate Amt Medium -Exudate Type Serosanguineous -Wound Margin Distinct, Outline Attached -Granulation Amt Medium (34-66%) -Granulation Quality [place] -Slough/Fibrin Yes -Necrosis Amt Medium (34-66%) -Necrotic Tissue Type Adherent Slough -Structure Exposed N/A -Texture (Yuliet-wound Skin Appearance) Assessed -Moisture ([place]ul[place]-wound Skin Appearance) Assessed,Dry/ Scaly -Color ([place]ul[place]-wound Skin Appearance) Assessed -Temperature ([place]ul[place]-wound Skin No Abnormality Appearance) (Pt Warm) -Tenderness on Palpation (Yuliet-wound No Skin Appearance) -Ulcer Cleansing Wound Cleanser -Foul Odor after Cleansing No -Anesthetic Used 5% Lidocaine Gel #2 R Lat foot -Combined with other wound No -Current Size (cm) - Length 4.5 -Current Size (cm) - Width 6.4 -Current Size (cm) - Depth 0.2 -Total Square Cm 28.80 -Tunneling No -Undermining/Tunneling No -Circular Undermining No -Exudate Amt Medium -Exudate Type Serosanguineous -Wound Margin Distinct, Outline Attached -Granulation Amt Medium (34-66%) -Granulation Quality [place] -Slough/Fibrin Yes -Necrosis Amt Medium (34-66%) -Necrotic Tissue Type Adherent Slough -Structure Exposed N/A -Texture (Yuliet-wound Skin Appearance) Assessed -Moisture (Yuliet-wound Skin Appearance) Dry/Scaly -Color (Yuliet-wound Skin Appearance) Assessed -Temperature ([place]ul[place]-wound Skin No Abnormality Appearance) (Pt Warm) -Tenderness on Palpation (Yuliet-wound No Skin Appearance) -Ulcer Cleansing Wound Cleanser -Foul Odor after Cleansing No -Anesthetic Used 5% Lidocaine Gel Lower Limb Edema Present Yes Right Calf (cm) 33 Right Ankle (cm) 25 Left Calf (cm) 36.5 Left Ankle (cm) 26 WC - Nurse 2 - General Ulcer CM Notes Start: 10/30/22 11:32 Freq: Status: Active Protocol: Activity Type Activity Date Activity User E-sign Co-sign Detail Recorded Client Recorded Date Recorded By Document 10/30/22 11:49 MW [id number] 10/30/22 12:22 MW 10/30/22 11:49 Wound Center Nurse 2 #1 R Heel -Time 11:54 -Correct Patient Yes -Correct Side, Site, Position Yes -Correct Procedure Yes -Procedure Performed No -Post Debridement (cm) - Length 0 -Post Debridement (cm) - Width 0 -Total Square (Post) (cm) 0 -Tunneling No -Undermining/Tunneling No -Circular Undermining No -Wound/Ulcer Outcome Healed- Epithelialized #6 R DORSAL foot -Time 11:51 -Correct Patient Yes -Correct Side, Site, Position Yes -Correct Procedure Yes -Procedure Performed Yes -Type of Procedure Debridement -Clinical Debridement Subcutaneous -Tissue Removed Subcutaneous -Post Debridement (cm) - Length 2.0 -Post Debridement (cm) - Width 6.5 -Post Debridement (cm) - Depth 0.1 -Total Square (Post) (cm) 13.00 -Area of Debridement (cm) - Length 2.0 -Area of Debridement (cm) - Width 6.5 -Total Square (Area) (cm) 13.00 -Tunneling No -Undermining/Tunneling No -Circular Undermining No -Wound/Ulcer Outcome Not Healed -Ulcer Cleansing Rinsed/ Irrigated with Saline -Foul Odor after Cleansing No -Bioengineered Tissue No -Bleeding Controlled with Pressure -Treatment Response Procedure Tolerated Well -Offloading No -Debridement - Subq, 1st 20sq cm Yes -Debridement, SubQ, ea addt'l 20sq cm 3 or part thereof #5 L Med foot -Time 11:52 -Correct Patient Yes -Correct Side, Site, Position Yes -Correct Procedure Yes -Procedure Performed Yes -Type of Procedure Debridement -Clinical Debridement Subcutaneous -Tissue Removed Subcutaneous -Post Debridement (cm) - Length 3.5 -Post Debridement (cm) - Width 3.5 -Post Debridement (cm) - Depth 0.1 -Total Square (Post) (cm) 12.25 -Area of Debridement (cm) - Length 3.5 -Area of Debridement (cm) - Width 3.5 -Total Square (Area) (cm) 12.25 -Tunneling No -Undermining/Tunneling No -Circular Undermining No -Wound/Ulcer Outcome Not Healed -Ulcer Cleansing Rinsed/ Irrigated with Saline -Foul Odor after Cleansing No -Bioengineered Tissue No -Bleeding Controlled with Pressure -Treatment Response Procedure Tolerated Well -Offloading No -Debridement - Subq, 1st 20sq cm No #4 L Lat Foot -Time 11:52 -Correct Patient Yes -Correct Side, Site, Position Yes -Correct Procedure Yes -Procedure Performed Yes -Type of Procedure Debridement -Clinical Debridement Subcutaneous -Tissue Removed Subcutaneous -Post Debridement (cm) - Length 1.1 -Post Debridement (cm) - Width 0.6 -Post Debridement (cm) - Depth 0.2 -Total Square (Post) (cm) 0.66 -Area of Debridement (cm) - Length 1.1 -Area of Debridement (cm) - Width 0.6 -Total Square (Area) (cm) 0.66 -Tunneling No -Undermining/Tunneling No -Circular Undermining No -Wound/Ulcer Outcome Not Healed -Ulcer Cleansing Rinsed/ Irrigated with Saline -Foul Odor after Cleansing No -Bioengineered Tissue No -Bleeding Controlled with Pressure -Treatment Response Procedure Tolerated Well -Offloading No -Debridement - Subq, 1st 20sq cm No #3 R Med Foot -Time 11:52 -Correct Patient Yes -Correct Side, Site, Position Yes -Correct Procedure Yes -Procedure Performed Yes -Type of Procedure Debridement -Clinical Debridement Subcutaneous -Tissue Removed Subcutaneous -Post Debridement (cm) - Length 1.5 -Post Debridement (cm) - Width 7.5 -Post Debridement (cm) - Depth 0.2 -Total Square (Post) (cm) 11.25 -Area of Debridement (cm) - Length 1.5 -Area of Debridement (cm) - Width 7.5 -Total Square (Area) (cm) 11.25 -Tunneling No -Undermining/Tunneling No -Circular Undermining No -Wound/Ulcer Outcome Not Healed -Ulcer Cleansing Rinsed/ Irrigated with Saline -Foul Odor after Cleansing No -Bioengineered Tissue No -Bleeding Controlled with Pressure -Treatment Response Procedure Tolerated Well -Offloading No -Debridement - Subq, 1st 20sq cm No #2 R Lat foot -Time 11:53 -Correct Patient Yes -Correct Side, Site, Position Yes -Correct Procedure Yes -Procedure Performed Yes -Type of Procedure Debridement -Clinical Debridement Subcutaneous -Tissue Removed Subcutaneous -Post Debridement (cm) - Length 4.0 -Post Debridement (cm) - Width 7.3 -Post Debridement (cm) - Depth 0.2 -Total Square (Post) (cm) 29.20 -Area of Debridement (cm) - Length 4.0 -Area of Debridement (cm) - Width 7.3 -Total Square (Area) (cm) 29.20 -Tunneling No -Undermining/Tunneling No -Circular Undermining No -Wound/Ulcer Outcome Not Healed -Ulcer Cleansing Rinsed/ Irrigated with Saline -Foul Odor after Cleansing No -Bioengineered Tissue No -Bleeding Controlled with Pressure -Treatment Response Procedure Tolerated Well -Offloading No -Debridement - Subq, 1st 20sq cm No Pain Scale: 0-10 Numeric Is Patient Pain Free? Yes - Nurse 3 - General Ulcer D/C NN Start: 10/30/22 11:32 Freq: Status: Active Protocol: Activity Type Activity Date Activity User E-sign Co-sign Detail Recorded Client Recorded Date Recorded By Document 10/30/22 12:22 MW [id number] 10/30/22 12:26 MW 10/30/22 12:22 Wound Care Center Nurse 3 #6 R DORSAL foot -Ulcer Cleansing Rinsed/ Irrigated with Saline -Foul Odor after Cleansing No -Negative Pressure Wound Therapy N/A -Primary Dressing Applied Aquacel Extra, NonAdherent Contact Layer -Primary Dressing Covered/Secured with Dry Gauze & Roll Gauze, Secured with Tape -Aquacel Extra 2 #5 L Med foot -Ulcer Cleansing Not Cleansed -Foul Odor after Cleansing No -Negative Pressure Wound Therapy N/A -Primary Dressing Applied NonAdherent Contact Layer -Other Dressing aquacel extra -Primary Dressing Covered/Secured with Dry Gauze & Roll Gauze, Secured with Tape #4 L Lat Foot -Ulcer Cleansing Rinsed/ Irrigated with Saline -Foul Odor after Cleansing No -Negative Pressure Wound Therapy N/A -Primary Dressing Applied NonAdherent Contact Layer -Other Dressing aquacel extra -Primary Dressing Covered/Secured with Dry Gauze & Roll Gauze, Secured with Tape #3 R Med Foot -Ulcer Cleansing Rinsed/ Irrigated with Saline -Foul Odor after Cleansing No -Negative Pressure Wound Therapy N/A -Primary Dressing Applied NonAdherent Contact Layer -Other Dressing Aquacel Extra -Primary Dressing Covered/Secured with Dry Gauze & Roll Gauze, Secured with Tape #2 R Lat foot -Ulcer Cleansing Rinsed/ Irrigated with Saline -Foul Odor after Cleansing No -Negative Pressure Wound Therapy N/A -Primary Dressing Applied NonAdherent Contact Layer -Other Dressing Aquacel Extra -Primary Dressing Covered/Secured with Dry Gauze & Roll Gauze, Secured with Tape Right -Lotion applied to leg before No compression wrap -Compression Wrap Cole Wrap Left -Lotion applied to leg before No compression wrap -Compression Wrap Cole Wrap Treatment Response Procedure Tolerated Well Pain Scale: 0-10 Numeric Is Patient Pain Free? Yes Teaching: Wound Center Compression Wraps & Stockings -Person Taught Patient -Teaching Method Discussion -Response to teaching Verbalize understanding Control Swelling with Leg Elevation -Person Taught Patient -Teaching Method Discussion -Response to teaching Verbalize understanding Dressing Your Wound -Person Taught Patient -Teaching Method Discussion -Response to teaching Verbalize understanding WC - Visit Discharge Discharge Condition Stable Ambulatory Status Walker Transportation [facility] Medication Reconcilliation completed & No provided to patient/care provider Clinical Summary of Care Provided Yes Additional Wound Wound debrided: Left medial ankle/lower extremity Type of Debridement: Excisional debridement Anesthesia Used: 4% Lidocaine Solution Depth: Down to and including healthy tissue and in the subcutaneous layer Percentage of wound debrided: 100 Instrument Used: 5mm curette, #15 blade and Forceps Tissue Removed: Slough and devitalized tissue Severity: Fat Layer Exposed Amount of bleeding with debridement: Mild Bleeding Controlled with: Pressure Patient tolerated procedure: Patient tolerated procedure well Additional Wound Wound debrided: Right medial ankle/lower extremity Type of Debridement: Excisional debridement Anesthesia Used: 4% Lidocaine Solution Depth: Down to and including healthy tissue and in the subcutaneous layer Percentage of wound debrided: 100 Instrument Used: 5mm curette, #15 blade and Forceps Tissue Removed: Slough and devitalized tissue Severity: Fat Layer Exposed Amount of bleeding with debridement: Mild Bleeding Controlled with: Pressure Patient tolerated procedure: Patient tolerated procedure well Additional Wound Wound debrided: Right lower extremity( Lateral ) Type of Debridement: Excisional debridement Anesthesia Used: 4% Lidocaine Solution Depth: Down to and including healthy tissue and in the subcutaneous layer Instrument Used: 5mm curette, #15 blade and Forceps Tissue Removed: Slough and devitalized tissue Severity: Fat Layer Exposed Amount of bleeding with debridement: Mild Bleeding Controlled with: Pressure Patient tolerated procedure: Patient tolerated procedure well Additional Wound Wound debrided: Right Dorsal Foot Type of Debridement: Excisional debridement Anesthesia Used: 4% Lidocaine Solution Depth: Down to and including healthy tissue and in the subcutaneous layer Percentage of wound debrided: 100 Instrument Used: 7mm curette Tissue Removed: Slough and devitalized tissue Severity: Fat Layer Exposed Amount of bleeding with debridement: Mild Bleeding Controlled with: Pressure Patient tolerated procedure: Patient tolerated procedure well Assessment/Plan Assessment/Plan (1) Ulcer of right lower extremity with fat layer exposed: CODE(S): L97.912 - Non-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 (2) Ulcer of left lower extremity with fat layer exposed: CODE(S): L97.922 - Non-pressure chronic ulcer of unspecified part of left lower leg with fat layer exposed (3) Ulcer of right heel and midfoot with fat layer exposed: CODE(S): L97.412 - Non-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 Stable/improving ulcers. Right heel is healed. Continue Aquacel extra to all ulcers, cover with Adaptic and gauze. Change daily to twice daily depending on drainage. Moisturize dry areas adequately with Vaseline or Aquaphor. Tubigrip for edema management. Leg elevation, optimize protein and nutrition. Will review labs from recent hospital stay. Their questions were answered and they were advised to let us know if they have any further questions or concerns. Follow-up in 1 week. This note was generated with [employer] dictation software. It may contain incorrect words, spelling, and punctuation that were not noted in checking the note before signing.
[2022-11-06 11:04] VITALS: BP 91/31; PULSE 63; RESP 20; TEMP 36.2
--- NOTE | 2022-11-06 12:42 | PCM.WC.PN ---
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 Has had recurrent ulcerations for over 10 years with most recent episode being more severe late last year. He was seen at the emergency room and subsequently advised to follow-up at a wound center which he did at [facility] without any significant improvement. A month ago, he was hospitalized for sepsis secondary to bilateral lower extremity ulcers. Following his admission and hospital stay, he did not return to the prior wound center. He reports a lot of drainage from his ulcers. They have been inconsistent dressing changes at his facility. He feels well otherwise and denies chills, fever. Currently has a PICC line and he is on IV vancomycin and cephalosporin. Progress of Wound: Right foot with a lot of maceration and increase in the ulcer size. Increased Right leg edema. He states that his right leg has not been wrapped as recommended. Objective Data Objective Data Vital Signs: Vital Signs Temp Pulse Resp BP 97.1 F L 63 20 H 91/31 L 11/06/22 11:04 11/06/22 11:04 11/06/22 11:04 11/06/22 11:04 Charges/Coding Procedures Integumentary [id number]: [id number] Samina subq tissue 20 sq cm/< Add On Codes: 73811 Samina subq tissue add-on (x4. Additional square centimeter debrided, please refer to clinical note.) Physical Exam Const alert and no apparent distress General Appearance: cooperative and comfortable HEENT normocephalic, head/scalp atraumatic and hearing grossly normal bilaterally Head and Scalp: normal to inspection, normocephalic and atraumatic Eyes EOMs intact bilaterally Neck full ROM General: normal visual inspection Resp normal respiratory effort Effort and Inspection: able to speak in complete sentences Extremity General Extremity: deformity Skin Wounds: wounds noted Neuro CN's II-XII intact bilaterally, moves all extremities and no focal motor deficits Psych mental status grossly normal Appearance: grossly normal Attitude: calm Activity / Motor Behavior: appropriate eye contact Debridement Note Debridement Note Wound debrided: Left Lateral ankle/Lower extremity Type of Debridement: Excisional debridement Anesthesia Used: 5% Lidocaine Gel Depth: Down to and including healthy tissue and in the subcutaneous layer Percentage of wound debrided: 100 Instrument Used: 5mm curette, #15 blade and Forceps Tissue Removed: Slough and devitalized tissue Severity: Fat Layer Exposed Amount of bleeding with debridement: Mild Bleeding Controlled with: Pressure Patient tolerated procedure: Patient tolerated procedure well Post-Debridement Measurements and Additional Note: Post-Debridement Measurements/Treatment SASHA - Nurse 1 - General Ulcer Assessment Start: 10/30/22 11:32 Freq: Status: Active Protocol: MARTA Activity Type Activity Date Activity User E-sign Co-sign Detail Recorded Client Recorded Date Recorded By Document 10/30/22 11:32 RB [id number] 10/30/22 11:45 RB Document 11/06/22 11:04 DL [id number] 11/06/22 11:20 DL 10/30/22 11/06/22 11:32 11:04 WC - Today's Visit Information Type of service Follow-up Visit Follow-up Visit (Physician/TRAVEL WRITER (Physician/TRAVEL WRITER ) ) Arrival Mode Wheelchair Wheelchair Transfer Assistance Manual None Patient Identification Verified (Name & Yes Yes ) Patient Requires Transmission-Based No Precautions Vital Signs Temperature (97.8 F-99.1 F) 97.1 F L 97.1 F L Temperature Source Temporal Temporal Pulse Rate (60-100) 70 63 Pulse Location Monitor Monitor Respiratory Rate (12-18) 18 20 H Respiratory rate source Observation Observation Blood Pressure (90/60-120/80) 92/35 L 91/31 L Blood Pressure Mean (mm Hg) 54 51 Source Monitor Monitor Position Sitting Blood Pressure Location Left Arm History Since Last Visit- (Skip if this is Patient's initial visit) Have you changed medications since your No No last visit? Any new allergies or adverse reactions No No Had a fall/change in ADL's that may No No increase risk of falls Signs or symptoms of abuse and/or No No neglect since last visit Have you been in the hospital since your No No last visit? Has dressing in place as prescribed Yes Yes Has compression in place as prescribed No Yes Has offloadiing in place as prescribed Yes Yes Experienced any changes in pain level or No No management Pain Scale: 0-10 Numeric Is Patient Pain Free? Yes Yes SASHA Holden Nurse 1 - General Ulcer Measurement Start: 10/30/22 11:32 Freq: Status: Active Protocol: Activity Type Activity Date Activity User E-sign Co-sign Detail Recorded Client Recorded Date Recorded By Document 10/30/22 11:32 RB [id number] 10/30/22 11:45 RB Document 11/06/22 11:04 DL [id number] 11/06/22 11:20 DL 10/30/22 11/06/22 11:32 11:04 Wound Center Nurse 1 #1 R Heel -Combined with other wound No -Current Size (cm) - Length 0.1 -Current Size (cm) - Width 0.1 -Current Size (cm) - Depth 0.1 -Total Square Cm 0.01 -Epithelialization Large 67-100% -Tunneling No -Undermining/Tunneling No -Circular Undermining No -Exudate Amt None Present -Wound Margin Distinct, Outline Attached -Granulation Amt Large (67-100%) -Granulation Quality [place] -Slough/Fibrin No -Necrosis Amt None Present (0 %) -Structure Exposed N/A -Texture (Yul[place]-wound Skin Appearance) Assessed -Moisture ([place]ul[place]-wound Skin Appearance) Assessed -Color (Yuliet-wound Skin Appearance) Assessed -Temperature ([place]ul[place]-wound Skin No Abnormality Appearance) (Pt Warm) -Tenderness on Palpation (Yuliet-wound No Skin Appearance) -Ulcer Cleansing Wound Cleanser -Foul Odor after Cleansing No #6 R DORSAL foot -Combined with other wound No -Current Size (cm) - Length 1.5 1.5 -Current Size (cm) - Width 5.5 4.9 -Current Size (cm) - Depth 0.1 0.1 -Total Square Cm 8.25 7.35 -Photo Taken No -Tunneling No -Undermining/Tunneling No -Circular Undermining No -Exudate Amt Medium Medium -Exudate Type Serosanguineous Serosanguineous -Wound Margin Distinct, Distinct, Outline Outline Attached Attached -Granulation Amt Medium (34-66%) Medium (34-66%) -Granulation Quality [place] -Slough/Fibrin Yes -Necrosis Amt Medium (34-66%) Medium (34-66%) -Necrotic Tissue Type Adherent Slough Adherent Slough -Structure Exposed N/A N/A -Texture (Yuliet-wound Skin Appearance) Assessed Scarring -Moisture (Yuliet-wound Skin Appearance) Assessed,Dry/ Dry/Scaly Scaly -Color (Yuliet-wound Skin Appearance) Assessed Hemosiderin Staining -Temperature ([place]ul[place]-wound Skin No Abnormality No Abnormality Appearance) (Pt Warm) (Pt Warm) -Tenderness on Palpation (Yuliet-wound No Skin Appearance) -Ulcer Cleansing Wound Cleanser Soap and Water -Foul Odor after Cleansing No No -Anesthetic Used 5% Lidocaine 5% Lidocaine Gel Gel #5 L Med foot -Combined with other wound No -Current Size (cm) - Length 6 0.1 -Current Size (cm) - Width 3.7 0.1 -Current Size (cm) - Depth 0.2 0.1 -Total Square Cm 22.2 0.01 -Photo Taken No -Tunneling No -Undermining/Tunneling No -Circular Undermining No -Exudate Amt Medium None Present -Exudate Type Serosanguineous -Wound Margin Distinct, Indistinct, Non Outline -Visible Attached -Granulation Amt Medium (34-66%) Small (1-33%) -Granulation Quality [place] -Slough/Fibrin Yes -Necrosis Amt Medium (34-66%) Small (1-33%) -Necrotic Tissue Type Adherent Slough Adherent Slough -Structure Exposed N/A N/A -Texture (Yuliet-wound Skin Appearance) Assessed Scarring -Moisture (Yuliet-wound Skin Appearance) Assessed,Dry/ Dry/Scaly Scaly -Color (Yuliet-wound Skin Appearance) Assessed Hemosiderin Staining -Temperature ([place]ul[place]-wound Skin No Abnormality No Abnormality Appearance) (Pt Warm) (Pt Warm) -Tenderness on Palpation (Yuliet-wound No Skin Appearance) -Ulcer Cleansing Wound Cleanser Soap and Water -Foul Odor after Cleansing No No -Anesthetic Used 5% Lidocaine 5% Lidocaine Gel Gel #4 L Lat Foot -Combined with other wound No -Current Size (cm) - Length 0.8 0.5 -Current Size (cm) - Width 2 0.5 -Current Size (cm) - Depth 0.2 0.3 -Total Square Cm 1.6 0.25 -Photo Taken No -Tunneling No -Undermining/Tunneling No -Circular Undermining No -Exudate Amt Medium Small -Exudate Type Serosanguineous Serosanguineous -Wound Margin Distinct, Distinct, Outline Outline Attached Attached -Granulation Amt Medium (34-66%) Small (1-33%) -Granulation Quality [place] -Slough/Fibrin Yes -Necrosis Amt Large (67-100%) Small (1-33%) -Necrotic Tissue Type Adherent Slough Adherent Slough -Structure Exposed N/A N/A -Texture (Yuliet-wound Skin Appearance) Assessed Scarring -Moisture (Yuliet-wound Skin Appearance) Dry/Scaly Dry/Scaly -Color (Yuliet-wound Skin Appearance) Assessed Hemosiderin Staining -Temperature ([place]ul[place]-wound Skin No Abnormality No Abnormality Appearance) (Pt Warm) (Pt Warm) -Tenderness on Palpation (Yuliet-wound No No Skin Appearance) -Ulcer Cleansing Wound Cleanser Soap and Water -Foul Odor after Cleansing No No -Anesthetic Used 5% Lidocaine 5% Lidocaine Gel Gel #3 R Med Foot -Combined with other wound No -Current Size (cm) - Length 1.2 1.8 -Current Size (cm) - Width 6 8.5 -Current Size (cm) - Depth 0.1 0.3 -Total Square Cm 7.2 15.30 -Photo Taken No -Tunneling No -Undermining/Tunneling No -Circular Undermining No -Exudate Amt Medium Medium -Exudate Type Serosanguineous Serosanguineous -Wound Margin Distinct, Indistinct, Non Outline -Visible Attached -Granulation Amt Medium (34-66%) Medium (34-66%) -Granulation Quality [place] -Slough/Fibrin Yes -Necrosis Amt Medium (34-66%) Medium (34-66%) -Necrotic Tissue Type Adherent Slough Adherent Slough -Structure Exposed N/A N/A -Texture (Yuliet-wound Skin Appearance) Assessed Scarring -Moisture (Yuliet-wound Skin Appearance) Assessed,Dry/ Dry/Scaly Scaly -Color (Yuliet-wound Skin Appearance) Assessed Hemosiderin Staining -Temperature (Yuliet-wound Skin No Abnormality No Abnormality Appearance) (Pt Warm) (Pt Warm) -Tenderness on Palpation (Yuliet-wound No No Skin Appearance) -Ulcer Cleansing Wound Cleanser Soap and Water -Foul Odor after Cleansing No No -Anesthetic Used 5% Lidocaine 5% Lidocaine Gel Gel #2 R Lat foot -Combined with other wound No -Current Size (cm) - Length 4.5 6 -Current Size (cm) - Width 6.4 3.5 -Current Size (cm) - Depth 0.2 0.1 -Total Square Cm 28.80 21.0 -Photo Taken No -Tunneling No -Undermining/Tunneling No -Circular Undermining No -Exudate Amt Medium Small -Exudate Type Serosanguineous Serosanguineous -Wound Margin Distinct, Distinct, Outline Outline Attached Attached -Granulation Amt Medium (34-66%) Medium (34-66%) -Granulation Quality [place] -Slough/Fibrin Yes -Necrosis Amt Medium (34-66%) Medium (34-66%) -Necrotic Tissue Type Adherent Slough Adherent Slough -Structure Exposed N/A N/A -Texture (Yuliet-wound Skin Appearance) Assessed Scarring -Moisture (Yuliet-wound Skin Appearance) Dry/Scaly Dry/Scaly -Color (Yuliet-wound Skin Appearance) Assessed Hemosiderin Staining -Temperature (Yuliet-wound Skin No Abnormality No Abnormality Appearance) (Pt Warm) (Pt Warm) -Tenderness on Palpation (Yuliet-wound No No Skin Appearance) -Ulcer Cleansing Wound Cleanser Soap and Water -Foul Odor after Cleansing No No -Anesthetic Used 5% Lidocaine 5% Lidocaine Gel Gel Lower Limb Edema Present Yes Right Calf (cm) 33 Right Ankle (cm) 25 Left Calf (cm) 36.5 Left Ankle (cm) 26 WC - Nurse 2 - General Ulcer CM Notes Start: 10/30/22 11:32 Freq: Status: Active Protocol: Activity Type Activity Date Activity User E-sign Co-sign Detail Recorded Client Recorded Date Recorded By Document 10/30/22 11:49 MW [id number] 10/30/22 12:22 MW Document 11/06/22 11:29 MW [id number] 11/06/22 11:49 MW 10/30/22 11/06/22 11:49 11:29 Wound Center Nurse 2 #1 R Heel -Time 11:54 -Correct Patient Yes -Correct Side, Site, Position Yes -Correct Procedure Yes -Procedure Performed No -Post Debridement (cm) - Length 0 -Post Debridement (cm) - Width 0 -Total Square (Post) (cm) 0 -Tunneling No -Undermining/Tunneling No -Circular Undermining No -Wound/Ulcer Outcome Healed- Epithelialized #7 right buttock -Time 11:48 -Correct Patient Yes -Correct Side, Site, Position Yes -Correct Procedure Yes -Procedure Performed No -Post Debridement (cm) - Length 0.1 -Post Debridement (cm) - Width 0.1 -Post Debridement (cm) - Depth 0.1 -Total Square (Post) (cm) 0.01 -Wound/Ulcer Outcome Not Healed #6 R DORSAL foot -Time 11:51 11:30 -Correct Patient Yes Yes -Correct Side, Site, Position Yes Yes -Correct Procedure Yes Yes -Procedure Performed Yes Yes -Type of Procedure Debridement Debridement -Clinical Debridement Subcutaneous Subcutaneous -Tissue Removed Subcutaneous Subcutaneous -Post Debridement (cm) - Length 2.0 2.5 -Post Debridement (cm) - Width 6.5 8.0 -Post Debridement (cm) - Depth 0.1 0.1 -Total Square (Post) (cm) 13.00 20.00 -Area of Debridement (cm) - Length 2.0 2.5 -Area of Debridement (cm) - Width 6.5 8.0 -Total Square (Area) (cm) 13.00 20.00 -Tunneling No No -Undermining/Tunneling No No -Circular Undermining No No -Wound/Ulcer Outcome Not Healed Not Healed -Ulcer Cleansing Rinsed/ Rinsed/ Irrigated with Irrigated with Saline Saline -Foul Odor after Cleansing No No -Bioengineered Tissue No No -Bleeding Controlled with Pressure Pressure -Treatment Response Procedure Procedure Tolerated Well Tolerated Well -Offloading No No -Debridement - Subq, 1st 20sq cm Yes Yes -Debridement, SubQ, ea addt'l 20sq cm 3 4 or part thereof #5 L Med foot -Time 11:52 11:31 -Correct Patient Yes Yes -Correct Side, Site, Position Yes Yes -Correct Procedure Yes Yes -Procedure Performed Yes Yes -Type of Procedure Debridement Debridement -Clinical Debridement Subcutaneous Subcutaneous -Tissue Removed Subcutaneous Subcutaneous -Post Debridement (cm) - Length 3.5 2.2 -Post Debridement (cm) - Width 3.5 3.0 -Post Debridement (cm) - Depth 0.1 0.1 -Total Square (Post) (cm) 12.25 6.60 -Area of Debridement (cm) - Length 3.5 2.2 -Area of Debridement (cm) - Width 3.5 3.0 -Total Square (Area) (cm) 12.25 6.60 -Tunneling No No -Undermining/Tunneling No No -Circular Undermining No No -Wound/Ulcer Outcome Not Healed Not Healed -Ulcer Cleansing Rinsed/ Rinsed/ Irrigated with Irrigated with Saline Saline -Foul Odor after Cleansing No No -Bioengineered Tissue No No -Bleeding Controlled with Pressure Pressure -Treatment Response Procedure Procedure Tolerated Well Tolerated Well -Offloading No No -Debridement - Subq, 1st 20sq cm No No #4 L Lat Foot -Time 11: 11:31 -Correct Patient Yes Yes -Correct Side, Site, Position Yes Yes -Correct Procedure Yes Yes -Procedure Performed Yes Yes -Type of Procedure Debridement Debridement -Clinical Debridement Subcutaneous Subcutaneous -Tissue Removed Subcutaneous Subcutaneous -Post Debridement (cm) - Length 1.1 1.5 -Post Debridement (cm) - Width 0.6 0.7 -Post Debridement (cm) - Depth 0.2 0.2 -Total Square (Post) (cm) 0.66 1.05 -Area of Debridement (cm) - Length 1.1 1.5 -Area of Debridement (cm) - Width 0.6 0.7 -Total Square (Area) (cm) 0.66 1.05 -Tunneling No No -Undermining/Tunneling No No -Circular Undermining No No -Wound/Ulcer Outcome Not Healed Not Healed -Ulcer Cleansing Rinsed/ Rinsed/ Irrigated with Irrigated with Saline Saline -Foul Odor after Cleansing No No -Bioengineered Tissue No No -Bleeding Controlled with Pressure Pressure -Treatment Response Procedure Procedure Tolerated Well Tolerated Well -Offloading No No -Debridement - Subq, 1st 20sq cm No No #3 R Med Foot -Time : 11:33 -Correct Patient Yes Yes -Correct Side, Site, Position Yes Yes -Correct Procedure Yes Yes -Procedure Performed Yes Yes -Type of Procedure Debridement Debridement -Clinical Debridement Subcutaneous Subcutaneous -Tissue Removed Subcutaneous Subcutaneous -Post Debridement (cm) - Length 1.5 2.0 -Post Debridement (cm) - Width 7.5 9.5 -Post Debridement (cm) - Depth 0.2 0.3 -Total Square (Post) (cm) 11.25 19.00 -Area of Debridement (cm) - Length 1.5 2.0 -Area of Debridement (cm) - Width 7.5 9.5 -Total Square (Area) (cm) 11.25 19.00 -Tunneling No No -Undermining/Tunneling No No -Circular Undermining No No -Wound/Ulcer Outcome Not Healed Not Healed -Ulcer Cleansing Rinsed/ Rinsed/ Irrigated with Irrigated with Saline Saline -Foul Odor after Cleansing No No -Bioengineered Tissue No No -Bleeding Controlled with Pressure Pressure -Treatment Response Procedure Procedure Tolerated Well Tolerated Well -Offloading No No -Debridement - Subq, 1st 20sq cm No No #2 R Lat foot -Time 11:53 11:34 -Correct Patient Yes Yes -Correct Side, Site, Position Yes Yes -Correct Procedure Yes Yes -Procedure Performed Yes Yes -Type of Procedure Debridement Debridement -Clinical Debridement Subcutaneous Subcutaneous -Tissue Removed Subcutaneous Subcutaneous -Post Debridement (cm) - Length 4.0 4.0 -Post Debridement (cm) - Width 7.3 9.0 -Post Debridement (cm) - Depth 0.2 0.2 -Total Square (Post) (cm) 29.20 36.00 -Area of Debridement (cm) - Length 4.0 4.0 -Area of Debridement (cm) - Width 7.3 9.0 -Total Square (Area) (cm) 29.20 36.00 -Tunneling No No -Undermining/Tunneling No No -Circular Undermining No No -Wound/Ulcer Outcome Not Healed Not Healed -Ulcer Cleansing Rinsed/ Rinsed/ Irrigated with Irrigated with Saline Saline -Foul Odor after Cleansing No No -Bioengineered Tissue No No -Bleeding Controlled with Pressure Pressure -Treatment Response Procedure Procedure Tolerated Well Tolerated Well -Offloading No No -Debridement - Subq, 1st 20sq cm No No Pain Scale: 0-10 Numeric Is Patient Pain Free? Yes Yes - Nurse 3 - General Ulcer D/C NN Start: 10/30/22 11:32 Freq: Status: Active Protocol: Activity Type Activity Date Activity User E-sign Co-sign Detail Recorded Client Recorded Date Recorded By Document 10/30/22 12:22 MW [id number] 10/30/22 12:26 MW Document 11/06/22 12:11 RB [id number] 11/06/22 12:17 RB 10/30/22 11/06/22 12:22 12:11 Wound Care Center Nurse 3 #7 right buttock -Ulcer Cleansing Rinsed/ Irrigated with Saline -Primary Dressing Applied NonAdherent Contact Layer, Mepilex Border -Mepilex Border 1 #6 R DORSAL foot -Ulcer Cleansing Rinsed/ Rinsed/ Irrigated with Irrigated with Saline Saline -Foul Odor after Cleansing No -Negative Pressure Wound Therapy N/A -Primary Dressing Applied Aquacel Extra, Aquacel Extra, NonAdherent Optilok 6.5x10 Contact Layer -Primary Dressing Covered/Secured with Dry Gauze & Dry Gauze & Roll Gauze, Roll Gauze, Secured with Secured with Tape Tape -Aquacel Extra 2 1 -Optilok 6.5x10 1 #5 L Med foot -Ulcer Cleansing Not Cleansed Rinsed/ Irrigated with Saline -Foul Odor after Cleansing No -Negative Pressure Wound Therapy N/A -Primary Dressing Applied NonAdherent NonAdherent Contact Layer Contact Layer, Promogran -Other Dressing aquacel extra -Primary Dressing Covered/Secured with Dry Gauze & Dry Gauze & Roll Gauze, Roll Gauze, Secured with Secured with Tape Tape -Promogran 1 #4 L Lat Foot -Ulcer Cleansing Rinsed/ Irrigated with Saline -Foul Odor after Cleansing No -Negative Pressure Wound Therapy N/A -Primary Dressing Applied NonAdherent NonAdherent Contact Layer Contact Layer -Other Dressing aquacel extra promogran -Primary Dressing Covered/Secured with Dry Gauze & Dry Gauze & Roll Gauze, Roll Gauze, Secured with Secured with Tape Tape #3 R Med Foot -Ulcer Cleansing Rinsed/ Rinsed/ Irrigated with Irrigated with Saline Saline -Foul Odor after Cleansing No -Negative Pressure Wound Therapy N/A -Primary Dressing Applied NonAdherent Contact Layer -Other Dressing Aquacel Extra aquacel extra -Primary Dressing Covered/Secured with Dry Gauze & Dry Gauze & Roll Gauze, Roll Gauze, Secured with Secured with Tape Tape #2 R Lat foot -Ulcer Cleansing Rinsed/ Irrigated with Saline -Foul Odor after Cleansing No -Negative Pressure Wound Therapy N/A -Primary Dressing Applied NonAdherent Contact Layer -Other Dressing Aquacel Extra aquacel -Primary Dressing Covered/Secured with Dry Gauze & Dry Gauze & Roll Gauze, Roll Gauze, Secured with Secured with Tape Tape Right -Lotion applied to leg before No compression wrap -Compression Wrap Cole Wrap -Other cole Left -Lotion applied to leg before No compression wrap -Compression Wrap Cole Wrap -Other cole Treatment Response Procedure Procedure Tolerated Well Tolerated Well Pain Scale: 0-10 Numeric Is Patient Pain Free? Yes Yes Teaching: Wound Center Compression Wraps & Stockings -Person Taught Patient -Teaching Method Discussion -Response to teaching Verbalize understanding Control Swelling with Leg Elevation -Person Taught Patient -Teaching Method Discussion -Response to teaching Verbalize understanding Dressing Your Wound -Person Taught Patient -Teaching Method Discussion -Response to teaching Verbalize understanding WC - Visit Discharge Discharge Condition Stable Stable Ambulatory Status Walker Wheelchair Transportation [facility] Medication Reconcilliation completed & No No provided to patient/care provider Clinical Summary of Care Provided Yes Yes Additional Wound Wound debrided: Left medial ankle/lower extremity Type of Debridement: Excisional debridement Anesthesia Used: 5% Lidocaine Gel Depth: Down to and including healthy tissue and in the subcutaneous layer Percentage of wound debrided: 100 Instrument Used: 5mm curette, #15 blade and Forceps Tissue Removed: Slough and devitalized tissue Severity: Fat Layer Exposed Amount of bleeding with debridement: Mild Bleeding Controlled with: Pressure Patient tolerated procedure: Patient tolerated procedure well Additional Wound Wound debrided: Right medial ankle/lower extremity Type of Debridement: Excisional debridement Anesthesia Used: 5% Lidocaine Gel Depth: Down to and including healthy tissue and in the subcutaneous layer Percentage of wound debrided: 100 Instrument Used: 5mm curette, #15 blade and Forceps Tissue Removed: Slough and devitalized tissue Severity: Fat Layer Exposed Amount of bleeding with debridement: Mild Bleeding Controlled with: Pressure Patient tolerated procedure: Patient tolerated procedure well Additional Wound Wound debrided: Right lower extremity( Lateral ) Type of Debridement: Excisional debridement Anesthesia Used: 4% Lidocaine Solution Depth: Down to and including healthy tissue and in the subcutaneous layer Instrument Used: 5mm curette, #15 blade and Forceps Tissue Removed: Slough and devitalized tissue Severity: Fat Layer Exposed Amount of bleeding with debridement: Mild Bleeding Controlled with: Pressure Patient tolerated procedure: Patient tolerated procedure well Additional Wound Wound debrided: Right Dorsal Foot Type of Debridement: Excisional debridement Anesthesia Used: 4% Lidocaine Solution Depth: Down to and including healthy tissue and in the subcutaneous layer Percentage of wound debrided: 100 Instrument Used: 7mm curette Tissue Removed: Slough and devitalized tissue Severity: Fat Layer Exposed Amount of bleeding with debridement: Mild Bleeding Controlled with: Pressure Patient tolerated procedure: Patient tolerated procedure well Assessment/Plan Assessment/Plan (1) Ulcer of right lower extremity with fat layer exposed: CODE(S): L97.912 - Non-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 (2) Ulcer of left lower extremity with fat layer exposed: CODE(S): L97.922 - Non-pressure chronic ulcer of unspecified part of left lower leg with fat layer exposed (3) Ulcer of right heel and midfoot with fat layer exposed: CODE(S): L97.412 - Non-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 Right heel remains healed but right lateral and medial foot have worsened. Maceration of foot also noted. Increased right leg edema with blisters. Patient not been applied to the right leg at his facility. Continue Aquacel extra to right foot ulcers and cover with superabsorbent dressing/ ABD Change daily to twice daily depending on drainage. Moistened Promogran and Adaptic to left foot ulcers. Cole wrap stability extremity for edema management. Leg elevation, optimize protein and nutrition. Their questions were answered and they were advised to let us know if they have any further questions or concerns. Follow-up in 1 week. This note was generated with [employer] dictation software. It may contain incorrect words, spelling, and punctuation that were not noted in checking the note before signing.
[2022-11-20 10:52] VITALS: BP 96/43; PULSE 64; RESP 16; TEMP 36.1
--- NOTE | 2022-11-20 12:31 | PCM.WC.PN ---
History of Present Illness Date of Service: 11/20/22 Chief Complaint: Nonhealing bilateral lower extremity ulcers History of Wound: Mr Wilson is an 82-year-old who [facility] to nonhealing bilateral lower extremity ulcers. Has had recurrent ulcerations for over 10 years with most recent episode being more severe late last year. He was seen at the emergency room and subsequently advised to follow-up at a wound center which he did at [facility] without any significant improvement. A month ago, he was hospitalized for sepsis secondary to bilateral lower extremity ulcers. Following his admission and hospital stay, he did not return to the prior wound center. He reports a lot of drainage from his ulcers. They have been inconsistent dressing changes at his facility. He feels well otherwise and denies chills, fever. Currently has a PICC line and he is on IV vancomycin and cephalosporin. Progress of Wound: Missed his appointment last week, had an appointment with his infectious disease physician and was given a 1 week course of antibiotics. The right lower extremity ulcers. Prior ulcers with some improvement. Objective Data Objective Data Vital Signs: Vital Signs Temp Pulse Resp BP O2 Del Method 96.9 F L 64 16 96/43 L Room Air 11/20/22 10:52 11/20/22 10:52 11/20/22 10:52 11/20/22 10:52 11/20/22 10:52 Oxygen Delivery Method Room Air Charges/Coding Procedures Integumentary 111xxx-113xx: [id number] Samina subq tissue 20 sq cm/< Add On Codes: 80235 Samina subq tissue add-on (x9 additional square centimeters debrided, please refer to clinical note.) Physical Exam Const alert and no apparent distress General Appearance: cooperative and comfortable HEENT normocephalic, head/scalp atraumatic and hearing grossly normal bilaterally Head and Scalp: normal to inspection, normocephalic and atraumatic Eyes EOMs intact bilaterally Neck full ROM General: normal visual inspection Resp normal respiratory effort Effort and Inspection: able to speak in complete sentences Extremity General Extremity: deformity Skin Wounds: wounds noted Neuro CN's II-XII intact bilaterally, moves all extremities and no focal motor deficits Psych mental status grossly normal Appearance: grossly normal Attitude: calm Activity / Motor Behavior: appropriate eye contact Debridement Note Debridement Note Wound debrided: Left Lateral ankle/Lower extremity Type of Debridement: Excisional debridement Anesthesia Used: 5% Lidocaine Gel Depth: Down to and including healthy tissue and in the subcutaneous layer Percentage of wound debrided: 100 Instrument Used: 5mm curette, #15 blade and Forceps Tissue Removed: Slough and devitalized tissue Severity: Fat Layer Exposed Amount of bleeding with debridement: Mild Bleeding Controlled with: Pressure Patient tolerated procedure: Patient tolerated procedure well Post-Debridement Measurements and Additional Note: Post-Debridement Measurements/Treatment - Nurse 1 - General Ulcer Assessment Start: 10/30/22 11:32 Freq: Status: Active Protocol: MARTA Activity Type Activity Date Activity User E-sign Co-sign Detail Recorded Client Recorded Date Recorded By Document 10/30/22 11:32 RB [id number] 10/30/22 11:45 RB Document 11/06/22 11:04 DL [id number] 11/06/22 11:20 DL Document 11/20/22 10:52 [facility] [id number] 11/20/22 11:16 BM 10/30/22 11/06/22 11/20/22 11:32 11:04 10:52 - Today's Visit Information Type of service Follow-up Visit Follow-up Visit Follow-up Visit (Physician/LEGAL PROJECT MANAGER (Physician/LEGAL PROJECT MANAGER (Physician/LEGAL PROJECT MANAGER ) ) ) Arrival Mode Wheelchair Wheelchair Wheelchair Transfer Assistance Manual None Other Transfer Assist (Other) 2 Accompanied by CAREGIVER Patient Identification Verified (Name & Yes Yes Yes ) Patient Requires Transmission-Based No No Precautions Vital Signs Temperature (97.8 F-99.1 F) 97.1 F L 97.1 F L 96.9 F L Temperature Source Temporal Temporal Temporal Pulse Rate (60-100) 70 63 64 Pulse Location Monitor Monitor Monitor Respiratory Rate (12-18) 18 20 H 16 Respiratory rate source Observation Observation Observation Oxygen Delivery Method Room Air Blood Pressure (90/60-120/80) 92/35 L 91/31 L 96/43 L Blood Pressure Mean (mm Hg) 54 51 60 Source Monitor Monitor Monitor Position Sitting Sitting Blood Pressure Location Left Arm Right Arm History Since Last Visit- (Skip if this is Patient's initial visit) Have you changed medications since your No No No last visit? Any new allergies or adverse reactions No No No Had a fall/change in ADL's that may No No No increase risk of falls Signs or symptoms of abuse and/or No No No neglect since last visit Have you been in the hospital since your No No No last visit? Has dressing in place as prescribed Yes Yes Yes Has compression in place as prescribed No Yes Yes Has offloadiing in place as prescribed Yes Yes N/A Experienced any changes in pain level or No No No management Left Footwear Surgical Shoe with pressure relief insole Right Footwear Surgical Shoe with pressure relief insole Pain Scale: 0-10 Numeric Is Patient Pain Free? Yes Yes Yes WC - Nurse 1 - General Ulcer Measurement Start: 10/30/22 11:32 Freq: Status: Active Protocol: Activity Type Activity Date Activity User E-sign Co-sign Detail Recorded Client Recorded Date Recorded By Document 10/30/22 11:32 RB [id number] 10/30/22 11:45 RB Document 11/06/22 11:04 DL [id number] 11/06/22 11:20 DL Document 11/20/22 10:52 [facility] [id number] 11/20/22 11:16 BMF 10/30/22 11/06/22 11/20/22 11:32 11:04 10:52 Wound Center Nurse 1 #7 right buttock -Current Size (cm) - Length 0.1 -Current Size (cm) - Width 0.1 -Current Size (cm) - Depth 0.1 -Total Square Cm 0.01 -Photo Taken Yes -Exudate Amt None Present -Wound Margin Distinct, Outline Attached -Granulation Amt Large (67-100%) -Granulation Quality [place] -Necrosis Amt None Present (0 %) -Structure Exposed N/A -Texture ([place]ul[place]-wound Skin Appearance) Scarring -Moisture ([place]ul[place]-wound Skin Appearance) No Abnormality -Color ([place]ul[place]-wound Skin Appearance) No Abnormality -Temperature ([place]ul[place]-wound Skin No Abnormality Appearance) (Pt Warm) -Ulcer Cleansing Soap and Water -Foul Odor after Cleansing No #1 R Heel -Combined with other wound No -Current Size (cm) - Length 0.1 -Current Size (cm) - Width 0.1 -Current Size (cm) - Depth 0.1 -Total Square Cm 0.01 -Epithelialization Large 67-100% -Tunneling No -Undermining/Tunneling No -Circular Undermining No -Exudate Amt None Present -Wound Margin Distinct, Outline Attached -Granulation Amt Large (67-100%) -Granulation Quality [place] -Slough/Fibrin No -Necrosis Amt None Present (0 %) -Structure Exposed N/A -Texture (Yul[place]-wound Skin Appearance) Assessed -Moisture ([place]ul[place]-wound Skin Appearance) Assessed -Color ([place]ul[place]-wound Skin Appearance) Assessed -Temperature ([place]-wound Skin No Abnormality Appearance) (Pt Warm) -Tenderness on Palpation ([place]ul[place]-wound No Skin Appearance) -Ulcer Cleansing Wound Cleanser -Foul Odor after Cleansing No #6 R DORSAL foot -Combined with other wound No -Current Size (cm) - Length 1.5 1.5 1.5 -Current Size (cm) - Width 5.5 4.9 5 -Current Size (cm) - Depth 0.1 0.1 0.1 -Total Square Cm 8.25 7.35 7.5 -Photo Taken No Yes -Tunneling No -Undermining/Tunneling No -Circular Undermining No -Exudate Amt Medium Medium Medium -Exudate Type Serosanguineous Serosanguineous Serosanguineous -Wound Margin Distinct, Distinct, Distinct, Outline Outline Outline Attached Attached Attached -Granulation Amt Medium (34-66%) Medium (34-66%) Medium (34-66%) -Granulation Quality [place] -Slough/Fibrin Yes -Necrosis Amt Medium (34-66%) Medium (34-66%) Medium (34-66%) -Necrotic Tissue Type Adherent Slough Adherent Slough Adherent Slough -Structure Exposed N/A N/A N/A -Texture (Yul[place]-wound Skin Appearance) Assessed Scarring Scarring -Moisture ([place]ul[place]-wound Skin Appearance) Assessed,Dry/ Dry/Scaly Dry/Scaly Scaly -Color (Yuliet-wound Skin Appearance) Assessed Hemosiderin Hemosiderin Staining Staining -Temperature ([place]ul[place]-wound Skin No Abnormality No Abnormality No Abnormality Appearance) (Pt Warm) (Pt Warm) (Pt Warm) -Tenderness on Palpation ([place]ul[place]-wound No Skin Appearance) -Ulcer Cleansing Wound Cleanser Soap and Water Soap and Water -Foul Odor after Cleansing No No No -Anesthetic Used 5% Lidocaine 5% Lidocaine 4% Lidocaine Gel Gel Solution #5 L Med foot -Combined with other wound No -Current Size (cm) - Length 6 0.1 2.3 -Current Size (cm) - Width 3.7 0.1 2 -Current Size (cm) - Depth 0.2 0.1 0.2 -Total Square Cm 22.2 0.01 4.6 -Photo Taken No Yes -Tunneling No -Undermining/Tunneling No -Circular Undermining No -Exudate Amt Medium None Present Medium -Exudate Type Serosanguineous Serosanguineous -Wound Margin Distinct, Indistinct, Non Distinct, Outline -Visible Outline Attached Attached -Granulation Amt Medium (34-66%) Small (1-33%) Medium (34-66%) -Granulation Quality [place] -Slough/Fibrin Yes -Necrosis Amt Medium (34-66%) Small (1-33%) Medium (34-66%) -Necrotic Tissue Type Adherent Slough Adherent Slough Adherent Slough -Structure Exposed N/A N/A Fat Layer Exposed -Texture (Yuliet-wound Skin Appearance) Assessed Scarring Scarring -Moisture ([place]ul[place]-wound Skin Appearance) Assessed,Dry/ Dry/Scaly Dry/Scaly Scaly -Color (Yuliet-wound Skin Appearance) Assessed Hemosiderin Hemosiderin Staining Staining -Temperature ([place]ul[place]-wound Skin No Abnormality No Abnormality No Abnormality Appearance) (Pt Warm) (Pt Warm) (Pt Warm) -Tenderness on Palpation ([place]ul[place]-wound No No Skin Appearance) -Ulcer Cleansing Wound Cleanser Soap and Water Soap and Water -Foul Odor after Cleansing No No No -Anesthetic Used 5% Lidocaine 5% Lidocaine 4% Lidocaine Gel Gel Solution #4 L Lat Foot -Combined with other wound No -Current Size (cm) - Length 0.8 0.5 0.1 -Current Size (cm) - Width 2 0.5 0.1 -Current Size (cm) - Depth 0.2 0.3 0.1 -Total Square Cm 1.6 0.25 0.01 -Photo Taken No Yes -Tunneling No -Undermining/Tunneling No -Circular Undermining No -Exudate Amt Medium Small None Present -Exudate Type Serosanguineous Serosanguineous -Wound Margin Distinct, Distinct, Flat & Intact Outline Outline Attached Attached -Granulation Amt Medium (34-66%) Small (1-33%) Large (67-100%) -Granulation Quality [place] -Slough/Fibrin Yes -Necrosis Amt Large (67-100%) Small (1-33%) None Present (0 %) -Necrotic Tissue Type Adherent Slough Adherent Slough -Structure Exposed N/A N/A N/A -Texture (Yuliet-wound Skin Appearance) Assessed Scarring Scarring -Moisture ([place]ul[place]-wound Skin Appearance) Dry/Scaly Dry/Scaly Dry/Scaly -Color (Yuliet-wound Skin Appearance) Assessed Hemosiderin Hemosiderin Staining Staining -Temperature ([place]uliet-wound Skin No Abnormality No Abnormality No Abnormality Appearance) (Pt Warm) (Pt Warm) (Pt Warm) -Tenderness on Palpation (Yuliet-wound No No No Skin Appearance) -Ulcer Cleansing Wound Cleanser Soap and Water Soap and Water -Foul Odor after Cleansing No No No -Anesthetic Used 5% Lidocaine 5% Lidocaine 5% Lidocaine Gel Gel Gel #3 R Med Foot -Combined with other wound No -Current Size (cm) - Length 1.2 1.8 2.5 -Current Size (cm) - Width 6 8.5 0.5 -Current Size (cm) - Depth 0.1 0.3 0.1 -Total Square Cm 7.2 15.30 1.25 -Photo Taken No Yes -Tunneling No -Undermining/Tunneling No -Circular Undermining No -Exudate Amt Medium Medium Medium -Exudate Type Serosanguineous Serosanguineous Serosanguineous -Wound Margin Distinct, Indistinct, Non Distinct, Outline -Visible Outline Attached Attached -Granulation Amt Medium (34-66%) Medium (34-66%) Medium (34-66%) -Granulation Quality [place] Red -Slough/Fibrin Yes -Necrosis Amt Medium (34-66%) Medium (34-66%) Medium (34-66%) -Necrotic Tissue Type Adherent Slough Adherent Slough Adherent Slough -Structure Exposed N/A N/A N/A -Texture (Yuliet-wound Skin Appearance) Assessed Scarring Scarring -Moisture ([place]ul[place]-wound Skin Appearance) Assessed,Dry/ Dry/Scaly Dry/Scaly Scaly -Color (Yuliet-wound Skin Appearance) Assessed Hemosiderin Hemosiderin Staining Staining -Temperature (Yuliet-wound Skin No Abnormality No Abnormality No Abnormality Appearance) (Pt Warm) (Pt Warm) (Pt Warm) -Tenderness on Palpation (Yuliet-wound No No Skin Appearance) -Ulcer Cleansing Wound Cleanser Soap and Water Soap and Water -Foul Odor after Cleansing No No No -Anesthetic Used 5% Lidocaine 5% Lidocaine 4% Lidocaine Gel Gel Solution #2 R Lat foot -Combined with other wound No -Current Size (cm) - Length 4.5 6 1.5 -Current Size (cm) - Width 6.4 3.5 1 -Current Size (cm) - Depth 0.2 0.1 0.1 -Total Square Cm 28.80 21.0 1.5 -Photo Taken No Yes -Tunneling No -Undermining/Tunneling No -Circular Undermining No -Exudate Amt Medium Small Medium -Exudate Type Serosanguineous Serosanguineous Serosanguineous -Wound Margin Distinct, Distinct, Distinct, Outline Outline Outline Attached Attached Attached -Granulation Amt Medium (34-66%) Medium (34-66%) Medium (34-66%) -Granulation Quality [place] -Slough/Fibrin Yes -Necrosis Amt Medium (34-66%) Medium (34-66%) Medium (34-66%) -Necrotic Tissue Type Adherent Slough Adherent Slough Adherent Slough -Structure Exposed N/A N/A N/A -Texture (Yuliet-wound Skin Appearance) Assessed Scarring Scarring -Moisture (Yul[place]-wound Skin Appearance) Dry/Scaly Dry/Scaly Dry/Scaly -Color (Yuliet-wound Skin Appearance) Assessed Hemosiderin Hemosiderin Staining Staining -Temperature (Yuliet-wound Skin No Abnormality No Abnormality No Abnormality Appearance) (Pt Warm) (Pt Warm) (Pt Warm) -Tenderness on Palpation (Yuliet-wound No No No Skin Appearance) -Ulcer Cleansing Wound Cleanser Soap and Water Soap and Water -Foul Odor after Cleansing No No No -Anesthetic Used 5% Lidocaine 5% Lidocaine 4% Lidocaine Gel Gel Solution Lower Limb Edema Present Yes Right Calf (cm) 33 36.1 Right Ankle (cm) 25 23.8 Left Calf (cm) 36.5 35.6 Left Ankle (cm) 26 23.1 WC - Nurse 2 - General Ulcer CM Notes Start: 10/30/22 11:32 Freq: Status: Active Protocol: Activity Type Activity Date Activity User E-sign Co-sign Detail Recorded Client Recorded Date Recorded By Document 10/30/22 11:49 MW [id number] 10/30/22 12:22 MW Document 11/06/22 11:29 MW [id number] 11/06/22 11:49 MW Document 11/20/22 11:25 MW [id number] 11/20/22 11:47 MW 10/30/22 11/06/22 11/20/22 11:49 11:29 11:25 Wound Center Nurse 2 #7 right buttock -Time 11:48 11:26 -Correct Patient Yes Yes -Correct Side, Site, Position Yes Yes -Correct Procedure Yes Yes -Procedure Performed No No -Post Debridement (cm) - Length 0.1 0 -Post Debridement (cm) - Width 0.1 0 -Post Debridement (cm) - Depth 0.1 -Total Square (Post) (cm) 0.01 0 -Tunneling No -Undermining/Tunneling No -Circular Undermining No -Wound/Ulcer Outcome Not Healed Healed- Epithelialized #1 R Heel -Time 11:54 -Correct Patient Yes -Correct Side, Site, Position Yes -Correct Procedure Yes -Procedure Performed No -Post Debridement (cm) - Length 0 -Post Debridement (cm) - Width 0 -Total Square (Post) (cm) 0 -Tunneling No -Undermining/Tunneling No -Circular Undermining No -Wound/Ulcer Outcome Healed- Epithelialized #8 right lateral LE -Time 11:44 -Correct Patient Yes -Correct Side, Site, Position Yes -Correct Procedure Yes -Procedure Performed Yes -Type of Procedure Debridement -Clinical Debridement Subcutaneous -Tissue Removed Subcutaneous -Post Debridement (cm) - Length 11.0 -Post Debridement (cm) - Width 5.0 -Post Debridement (cm) - Depth 0.1 -Total Square (Post) (cm) 55.00 -Area of Debridement (cm) - Length 11.0 -Area of Debridement (cm) - Width 5.0 -Total Square (Area) (cm) 55.00 -Tunneling No -Undermining/Tunneling No -Circular Undermining No -Wound/Ulcer Outcome Not Healed -Ulcer Cleansing Rinsed/ Irrigated with Saline -Foul Odor after Cleansing No -Bioengineered Tissue No -Bleeding Controlled with Pressure -Treatment Response Procedure Tolerated Well -Offloading No -Debridement - Subq, 1st 20sq cm No #9 right medial LE -Time 11:42 -Correct Patient Yes -Correct Side, Site, Position Yes -Correct Procedure Yes -Procedure Performed Yes -Type of Procedure Debridement -Clinical Debridement Subcutaneous -Tissue Removed Subcutaneous -Post Debridement (cm) - Length 12.0 -Post Debridement (cm) - Width 4.5 -Post Debridement (cm) - Depth 0.1 -Total Square (Post) (cm) 54.00 -Area of Debridement (cm) - Length 12.0 -Area of Debridement (cm) - Width 4.5 -Total Square (Area) (cm) 54.00 -Tunneling No -Undermining/Tunneling No -Circular Undermining No -Wound/Ulcer Outcome Not Healed -Ulcer Cleansing Rinsed/ Irrigated with Saline -Foul Odor after Cleansing No -Bioengineered Tissue No -Bleeding Controlled with Pressure -Treatment Response Procedure Tolerated Well -Offloading No -Debridement - Subq, 20sq cm No #6 R DORSAL foot -Time 11:51 11:30 11:27 -Correct Patient Yes Yes Yes -Correct Side, Site, Position Yes Yes Yes -Correct Procedure Yes Yes Yes -Procedure Performed Yes Yes Yes -Type of Procedure Debridement Debridement Debridement -Clinical Debridement Subcutaneous Subcutaneous Subcutaneous -Tissue Removed Subcutaneous Subcutaneous Subcutaneous -Post Debridement (cm) - Length 2.0 2.5 1.5 -Post Debridement (cm) - Width 6.5 8.0 6.0 -Post Debridement (cm) - Depth 0.1 0.1 0.1 -Total Square (Post) (cm) 13.00 20.00 9.00 -Area of Debridement (cm) - Length 2.0 2.5 1.5 -Area of Debridement (cm) - Width 6.5 8.0 6.0 -Total Square (Area) (cm) 13.00 20.00 9.00 -Tunneling No No No -Undermining/Tunneling No No No -Circular Undermining No No No -Wound/Ulcer Outcome Not Healed Not Healed Not Healed -Ulcer Cleansing Rinsed/ Rinsed/ Rinsed/ Irrigated with Irrigated with Irrigated with Saline Saline Saline -Foul Odor after Cleansing No No No -Bioengineered Tissue No No No -Bleeding Controlled with Pressure Pressure Pressure -Treatment Response Procedure Procedure Procedure Tolerated Well Tolerated Well Tolerated Well -Offloading No No No -Debridement - Subq, 20sq cm Yes Yes Yes -Debridement, SubQ, ea addt'l 20sq cm 3 4 9 or part thereof #5 L Med foot -Time 11:31 11:27 -Correct Patient Yes Yes Yes -Correct Side, Site, Position Yes Yes Yes -Correct Procedure Yes Yes Yes -Procedure Performed Yes Yes Yes -Type of Procedure Debridement Debridement Debridement -Clinical Debridement Subcutaneous Subcutaneous Subcutaneous -Tissue Removed Subcutaneous Subcutaneous Subcutaneous -Post Debridement (cm) - Length 3.5 2.2 3.5 -Post Debridement (cm) - Width 3.5 3.0 3.3 -Post Debridement (cm) - Depth 0.1 0.1 0.1 -Total Square (Post) (cm) 12.25 6.60 11.55 -Area of Debridement (cm) - Length 3.5 2.2 3.5 -Area of Debridement (cm) - Width 3.5 3.0 3.3 -Total Square (Area) (cm) 12.25 6.60 11.55 -Tunneling No No No -Undermining/Tunneling No No No -Circular Undermining No No No -Wound/Ulcer Outcome Not Healed Not Healed Not Healed -Ulcer Cleansing Rinsed/ Rinsed/ Rinsed/ Irrigated with Irrigated with Irrigated with Saline Saline Saline -Foul Odor after Cleansing No No No -Bioengineered Tissue No No No -Bleeding Controlled with Pressure Pressure Pressure -Treatment Response Procedure Procedure Procedure Tolerated Well Tolerated Well Tolerated Well -Offloading No No No -Debridement - Subq, 1st 20sq cm No No No #4 L Lat Foot -Time 11:31 11:28 -Correct Patient Yes Yes Yes -Correct Side, Site, Position Yes Yes Yes -Correct Procedure Yes Yes Yes -Procedure Performed Yes Yes Yes -Type of Procedure Debridement Debridement Debridement -Clinical Debridement Subcutaneous Subcutaneous Subcutaneous -Tissue Removed Subcutaneous Subcutaneous Subcutaneous -Post Debridement (cm) - Length 1.1 1.5 1.5 -Post Debridement (cm) - Width 0.6 0.7 0.4 -Post Debridement (cm) - Depth 0.2 0.2 0.2 -Total Square (Post) (cm) 0.66 1.05 0.60 -Area of Debridement (cm) - Length 1.1 1.5 1.5 -Area of Debridement (cm) - Width 0.6 0.7 0.4 -Total Square (Area) (cm) 0.66 1.05 0.60 -Tunneling No No No -Undermining/Tunneling No No No -Circular Undermining No No No -Wound/Ulcer Outcome Not Healed Not Healed Not Healed -Ulcer Cleansing Rinsed/ Rinsed/ Rinsed/ Irrigated with Irrigated with Irrigated with Saline Saline Saline -Foul Odor after Cleansing No No No -Bioengineered Tissue No No No -Bleeding Controlled with Pressure Pressure Pressure -Treatment Response Procedure Procedure Procedure Tolerated Well Tolerated Well Tolerated Well -Offloading No No No -Debridement - Subq, 1st 20sq cm No No No #3 R Med Foot -Time 11:52 11:33 11:28 -Correct Patient Yes Yes Yes -Correct Side, Site, Position Yes Yes Yes -Correct Procedure Yes Yes Yes -Procedure Performed Yes Yes Yes -Type of Procedure Debridement Debridement Debridement -Clinical Debridement Subcutaneous Subcutaneous Subcutaneous -Tissue Removed Subcutaneous Subcutaneous Subcutaneous -Post Debridement (cm) - Length 1.5 2.0 2.0 -Post Debridement (cm) - Width 7.5 9.5 8.5 -Post Debridement (cm) - Depth 0.2 0.3 0.1 -Total Square (Post) (cm) 11.25 19.00 17.00 -Area of Debridement (cm) - Length 1.5 2.0 2.0 -Area of Debridement (cm) - Width 7.5 9.5 8.5 -Total Square (Area) (cm) 11.25 19.00 17.00 -Tunneling No No No -Undermining/Tunneling No No No -Circular Undermining No No No -Wound/Ulcer Outcome Not Healed Not Healed Not Healed -Ulcer Cleansing Rinsed/ Rinsed/ Rinsed/ Irrigated with Irrigated with Irrigated with Saline Saline Saline -Foul Odor after Cleansing No No No -Bioengineered Tissue No No No -Bleeding Controlled with Pressure Pressure Pressure -Treatment Response Procedure Procedure Procedure Tolerated Well Tolerated Well Tolerated Well -Offloading No No No -Debridement - Subq, 1st 20sq cm No No No #2 R Lat foot -Time 11:53 11:34 11:29 -Correct Patient Yes Yes Yes -Correct Side, Site, Position Yes Yes Yes -Correct Procedure Yes Yes Yes -Procedure Performed Yes Yes Yes -Type of Procedure Debridement Debridement Debridement -Clinical Debridement Subcutaneous Subcutaneous Subcutaneous -Tissue Removed Subcutaneous Subcutaneous Subcutaneous -Post Debridement (cm) - Length 4.0 4.0 5.0 -Post Debridement (cm) - Width 7.3 9.0 8.0 -Post Debridement (cm) - Depth 0.2 0.2 0.2 -Total Square (Post) (cm) 29.20 36.00 40.00 -Area of Debridement (cm) - Length 4.0 4.0 5.0 -Area of Debridement (cm) - Width 7.3 9.0 8.0 -Total Square (Area) (cm) 29.20 36.00 40.00 -Tunneling No No No -Undermining/Tunneling No No No -Circular Undermining No No No -Wound/Ulcer Outcome Not Healed Not Healed Not Healed -Ulcer Cleansing Rinsed/ Rinsed/ Rinsed/ Irrigated with Irrigated with Irrigated with Saline Saline Saline -Foul Odor after Cleansing No No No -Bioengineered Tissue No No No -Bleeding Controlled with Pressure Pressure Pressure -Treatment Response Procedure Procedure Procedure Tolerated Well Tolerated Well Tolerated Well -Offloading No No No -Debridement - Subq, 1st 20sq cm No No No Pain Scale: 0-10 Numeric Is Patient Pain Free? Yes Yes Yes WC - Nurse 3 - General Ulcer D/C NN Start: 10/30/22 11:32 Freq: Status: Active Protocol: Activity Type Activity Date Activity User E-sign Co-sign Detail Recorded Client Recorded Date Recorded By Document 10/30/22 12:22 MW [id number] 10/30/22 12:26 MW Document 11/06/22 12:11 RB [id number] 11/06/22 12:17 RB Document 11/20/22 11:55 DL [id number] 11/20/22 12:09 DL 10/30/22 11/06/22 11/20/22 12:22 12:11 11:55 Wound Care Center Nurse 3 #7 right buttock -Ulcer Cleansing Rinsed/ Rinsed/ Irrigated with Irrigated with Saline Saline -Foul Odor after Cleansing No -Primary Dressing Applied NonAdherent Mepilex Border, Contact Layer, NonAdherent Mepilex Border Contact Layer -Mepilex Border 1 #8 right lateral LE -Ulcer Cleansing Rinsed/ Irrigated with Saline -Foul Odor after Cleansing No -Primary Dressing Applied Aquacel Extra -Primary Dressing Covered/Secured with Dry Gauze & Roll Gauze, Secured with Tape -Other Covering ABD -Aquacel Extra 1 #9 right medial LE -Ulcer Cleansing Rinsed/ Irrigated with Saline -Foul Odor after Cleansing No -Primary Dressing Applied Aquacel Extra -Other Dressing ABD -Primary Dressing Covered/Secured with Dry Gauze & Roll Gauze, Secured with Tape -Aquacel Extra 1 #6 R DORSAL foot -Ulcer Cleansing Rinsed/ Rinsed/ Rinsed/ Irrigated with Irrigated with Irrigated with Saline Saline Saline -Foul Odor after Cleansing No No -Negative Pressure Wound Therapy N/A -Primary Dressing Applied Aquacel Extra, Aquacel Extra, NonAdherent Optilok 6.5x10 Contact Layer -Other Dressing Aqaucel EX -Primary Dressing Covered/Secured with Dry Gauze & Dry Gauze & Dry Gauze & Roll Gauze, Roll Gauze, Roll Gauze, Secured with Secured with Secured with Tape Tape Tape -Other Covering ABD -Aquacel Extra 2 1 -Optilok 6.5x10 1 #5 L Med foot -Ulcer Cleansing Not Cleansed Rinsed/ Rinsed/ Irrigated with Irrigated with Saline Saline -Foul Odor after Cleansing No No -Negative Pressure Wound Therapy N/A -Primary Dressing Applied NonAdherent NonAdherent Fibracol Plus Contact Layer Contact Layer, 4x4,NonAdherent Promogran Contact Layer -Other Dressing aquacel extra -Primary Dressing Covered/Secured with Dry Gauze & Dry Gauze & Dry Gauze & Roll Gauze, Roll Gauze, Roll Gauze, Secured with Secured with Secured with Tape Tape Tape -Fibracol Plus 4x4 1 -Promogran 1 #4 L Lat Foot -Ulcer Cleansing Rinsed/ Rinsed/ Irrigated with Irrigated with Saline Saline -Foul Odor after Cleansing No No -Negative Pressure Wound Therapy N/A -Primary Dressing Applied NonAdherent NonAdherent NonAdherent Contact Layer Contact Layer Contact Layer -Other Dressing aquacel extra promogran Fibricol -Primary Dressing Covered/Secured with Dry Gauze & Dry Gauze & Dry Gauze & Roll Gauze, Roll Gauze, Roll Gauze, Secured with Secured with Secured with Tape Tape Tape #3 R Med Foot -Ulcer Cleansing Rinsed/ Rinsed/ Rinsed/ Irrigated with Irrigated with Irrigated with Saline Saline Saline -Foul Odor after Cleansing No No -Negative Pressure Wound Therapy N/A -Primary Dressing Applied NonAdherent Contact Layer -Other Dressing Aquacel Extra aquacel extra Aquacel Ex -Primary Dressing Covered/Secured with Dry Gauze & Dry Gauze & Dry Gauze & Roll Gauze, Roll Gauze, Roll Gauze, Secured with Secured with Secured with Tape Tape Tape #2 R Lat foot -Ulcer Cleansing Rinsed/ Rinsed/ Irrigated with Irrigated with Saline Saline -Foul Odor after Cleansing No No -Negative Pressure Wound Therapy N/A -Primary Dressing Applied NonAdherent Contact Layer -Other Dressing Aquacel Extra aquacel aquacel Ex -Primary Dressing Covered/Secured with Dry Gauze & Dry Gauze & Dry Gauze & Roll Gauze, Roll Gauze, Roll Gauze, Secured with Secured with Secured with Tape Tape Tape -Other Covering ABD Right -Lotion applied to leg before No compression wrap -Compression Wrap Cole Wrap Cole Wrap -Other cole Left -Lotion applied to leg before No compression wrap -Compression Wrap Cole Wrap Cole Wrap -Other cole Treatment Response Procedure Procedure Procedure Tolerated Well Tolerated Well Tolerated Well Pain Scale: 0-10 Numeric Is Patient Pain Free? Yes Yes Yes Teaching: Wound Center Compression Wraps & Stockings -Person Taught Patient -Teaching Method Discussion -Response to teaching Verbalize understanding Control Swelling with Leg Elevation -Person Taught Patient -Teaching Method Discussion -Response to teaching Verbalize understanding Dressing Your Wound -Person Taught Patient -Teaching Method Discussion -Response to teaching Verbalize understanding WC - Visit Discharge Discharge Condition Stable Stable Stable Ambulatory Status Walker Wheelchair Wheelchair Transportation [facility] Medication Reconcilliation completed & No No provided to patient/care provider Clinical Summary of Care Provided Yes Yes Facility Type Longterm Care Facility Orders Sent Yes Additional Wound Wound debrided: Left medial ankle/lower extremity Type of Debridement: Excisional debridement Anesthesia Used: 5% Lidocaine Gel Depth: Down to and including healthy tissue and in the subcutaneous layer Percentage of wound debrided: 100 Instrument Used: 5mm curette, #15 blade and Forceps Tissue Removed: Slough and devitalized tissue Severity: Fat Layer Exposed Amount of bleeding with debridement: Mild Bleeding Controlled with: Pressure Patient tolerated procedure: Patient tolerated procedure well Additional Wound Wound debrided: Right medial ankle/lower extremity Type of Debridement: Excisional debridement Anesthesia Used: 5% Lidocaine Gel Depth: Down to and including healthy tissue and in the subcutaneous layer Percentage of wound debrided: 100 Instrument Used: 5mm curette, #15 blade and Forceps Tissue Removed: Slough and devitalized tissue Severity: Fat Layer Exposed Amount of bleeding with debridement: Mild Bleeding Controlled with: Pressure Patient tolerated procedure: Patient tolerated procedure well Additional Wound Wound debrided: Right Medial Leg ( Cluster ) Type of Debridement: Excisional debridement Anesthesia Used: 4% Lidocaine Solution Depth: Down to and including healthy tissue and in the subcutaneous layer Percentage of wound debrided: 100 Instrument Used: 7mm curette Tissue Removed: Slough and devitalized tissue Severity: Fat Layer Exposed Amount of bleeding with debridement: Mild Bleeding Controlled with: Pressure Patient tolerated procedure: Patient tolerated procedure well Additional Wound Wound debrided: Right leg( Lateral Cluster) Type of Debridement: Excisional debridement Anesthesia Used: 4% Lidocaine Solution Depth: Down to and including healthy tissue and in the subcutaneous layer Instrument Used: 5mm curette, #15 blade and Forceps Tissue Removed: Slough and devitalized tissue Severity: Fat Layer Exposed Amount of bleeding with debridement: Mild Bleeding Controlled with: Pressure Patient tolerated procedure: Patient tolerated procedure well Additional Wound Wound debrided: Right Dorsal Foot Type of Debridement: Excisional debridement Anesthesia Used: 4% Lidocaine Solution Depth: Down to and including healthy tissue and in the subcutaneous layer Percentage of wound debrided: 100 Instrument Used: 7mm curette Tissue Removed: Slough and devitalized tissue Severity: Fat Layer Exposed Amount of bleeding with debridement: Mild Bleeding Controlled with: Pressure Patient tolerated procedure: Patient tolerated procedure well Additional Wound Wound debrided: Right Lateral Ankle/Foot Type of Debridement: Excisional debridement Anesthesia Used: 4% Lidocaine Solution Depth: Down to and including healthy tissue and in the subcutaneous layer Percentage of wound debrided: 100 Instrument Used: 5mm curette Tissue Removed: Slough and devitalized tissue Severity: Fat Layer Exposed Amount of bleeding with debridement: Mild Bleeding Controlled with: Pressure Patient tolerated procedure: Patient tolerated procedure well Assessment/Plan Assessment/Plan (1) Ulcer of right lower extremity with fat layer exposed: CODE(S): L97.912 - Non-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 (2) Ulcer of left lower extremity with fat layer exposed: CODE(S): L97.922 - Non-pressure chronic ulcer of unspecified part of left lower leg with fat layer exposed (3) Ulcer of right heel and midfoot with fat layer exposed: CODE(S): L97.412 - Non-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 New right leg medial and lateral clusters. As above, currently on antibiotics prescribed by infectious disease. Continue Aquacel extra to right foot ulcers and cover with superabsorbent dressing/ ABD Change daily to twice daily depending on drainage. Moistened Fibracol and Adaptic to left foot ulcers. Cole wrap to both extremity for edema management. Leg elevation, optimize protein and nutrition. Their questions were answered and they were advised to let us know if they have any further questions or concerns. Follow-up in 1 week. This note was generated with [employer] dictation software. It may contain incorrect words, spelling, and punctuation that were not noted in checking the note before signing.
== END 2022-11-26 23:59 | disposition home or self-care (01) ==
LOC: WC 10:45
PROVIDERS: PCP Family Medicine; Referring Provider Family Medicine; Visit Provider Internal Medicine
DX: L97.412 Non-pressure chronic ulcer of right heel and midfoot with fat layer exposed (principal); L97.922 Non-pressure chronic ulcer of unspecified part of left lower leg with fat layer exposed; L97.912 Non-pressure chronic ulcer of unspecified part of right lower leg with fat layer exposed; I73.9 Peripheral vascular disease, unspecified; G62.9 Polyneuropathy, unspecified; R53.81 Other malaise; R60.0 Localized edema
CPT/HCPCS: 11042; 11045

== ENCOUNTER 2022-12-18 10:45 | Outpatient (RCR) | payer MEDICARE, BC, SELFPAY ==
[2022-11-27 00:14] VITALS: BP 96/43; PULSE 64; RESP 16; TEMP 36.1
[2022-11-27 11:02] VITALS: BP 110/47; PULSE 74; RESP 20; TEMP 36.2
--- NOTE | 2022-11-27 12:06 | PCM.WC.PN ---
History of Present Illness Date of Service: 11/27/22 Chief Complaint: Nonhealing bilateral lower extremity ulcers History of Wound: Mr Wilson is an 82-year-old who was brought in here from his skilled nursing due to nonhealing bilateral lower extremity ulcers. Has had recurrent ulcerations for over 10 years with most recent episode being more severe late last year. He was seen at the emergency room and subsequently advised to follow-up at a wound center which he did at [facility] without any significant improvement. A month ago, he was hospitalized for sepsis secondary to bilateral lower extremity ulcers. Following his admission and hospital stay, he did not return to the prior wound center. He reports a lot of drainage from his ulcers. They have been inconsistent dressing changes at his facility. He feels well otherwise and denies chills, fever. Currently has a PICC line and he is on IV vancomycin and cephalosporin. Progress of Wound: Right foot looks swollen and more erythematous. No chills or fever reported by the patient. Does admit to increased pain in his right foot. Dressing change has not been done as recommended. Objective Data Objective Data Vital Signs: Vital Signs Temp Pulse Resp BP 97.1 F L 74 20 H 110/47 L 11/27/22 11:02 11/27/22 11:02 11/27/22 11:02 11/27/22 11:02 Charges/Coding Procedures Integumentary [id number]: [id number] Samina subq tissue 20 sq cm/< Add On Codes: 87942 Samina subq tissue add-on (x 3.Additional square centimeter debrided, please refer to clinical note.) Physical Exam Const alert and no apparent distress General Appearance: cooperative and comfortable HEENT normocephalic, head/scalp atraumatic and hearing grossly normal bilaterally Head and Scalp: normal to inspection, normocephalic and atraumatic Eyes EOMs intact bilaterally Neck full ROM General: normal visual inspection Resp normal respiratory effort Effort and Inspection: able to speak in complete sentences Extremity General Extremity: deformity Skin Wounds: wounds noted Neuro CN's II-XII intact bilaterally, moves all extremities and no focal motor deficits Psych mental status grossly normal Appearance: grossly normal Attitude: calm Activity / Motor Behavior: appropriate eye contact Debridement Note Debridement Note Wound debrided: Left Lateral ankle/Lower extremity Type of Debridement: Excisional debridement Anesthesia Used: 5% Lidocaine Gel Depth: Down to and including healthy tissue and in the subcutaneous layer Percentage of wound debrided: 100 Instrument Used: 5mm curette, #15 blade and Forceps Tissue Removed: Slough and devitalized tissue Severity: Fat Layer Exposed Amount of bleeding with debridement: Mild Bleeding Controlled with: Pressure Patient tolerated procedure: Patient tolerated procedure well Post-Debridement Measurements and Additional Note: Post-Debridement Measurements/Treatment SASHA Holden Nurse 1 - General Ulcer Assessment Start: 11/27/22 10:57 Freq: Status: Active Protocol: MARTA Activity Type Activity Date Activity User E-sign Co-sign Detail Recorded Client Recorded Date Recorded By Document 11/27/22 11:02 DL [id number] 11/27/22 11:21 DL 11/27/22 11:02 WC - Today's Visit Information Type of service 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 ) Arrival Mode Wheelchair Transfer Assist (Other) x1 Patient Identification Verified (Name & Yes ) Patient Requires Transmission-Based No Precautions Finger Stick Blood Sugar(mg/dl) (if not checked indicated): Blood Sugar Stated by Patient Vital Signs Temperature (97.8 F-99.1 F) 97.1 F L Temperature Source Temporal Pulse Rate (60-100) 74 Pulse Location Monitor Respiratory Rate (12-18) 20 H Respiratory rate source Observation Blood Pressure (90/60-120/80) 110/47 L Blood Pressure Mean (mm Hg) 68 Source Monitor History Since Last Visit- (Skip if this is Patient's initial visit) Have you changed medications since your No last visit? Any new allergies or adverse reactions No Had a fall/change in ADL's that may No increase risk of falls Signs or symptoms of abuse and/or No neglect since last visit Have you been in the hospital since your No last visit? Has dressing in place as prescribed Yes Has compression in place as prescribed Yes Has offloadiing in place as prescribed Yes Left Footwear Surgical Shoe with pressure relief insole Right Footwear Surgical Shoe with pressure relief insole Pain Scale: 0-10 Numeric Is Patient Pain Free? Yes SASHA Holden Nurse 1 - General Ulcer Measurement Start: 11/27/22 10:57 Freq: Status: Active Protocol: Activity Type Activity Date Activity User E-sign Co-sign Detail Recorded Client Recorded Date Recorded By Document 11/27/22 11:02 DL [id number] 11/27/22 11:21 DL 11/27/22 11:02 Wound Center Nurse 1 #8 right lateral LE -Combined with other wound No -Current Size (cm) - Length 1 -Current Size (cm) - Width 0.8 -Current Size (cm) - Depth 0.2 -Total Square Cm 0.8 -Photo Taken No -Epithelialization Small 1-33% -Tunneling No -Undermining/Tunneling No -Circular Undermining No -Exudate Amt Medium -Exudate Type Serosanguineous -Wound Margin Distinct, Outline Attached -Granulation Amt Medium (34-66%) -Granulation Quality Red -Slough/Fibrin Yes -Necrosis Amt Medium (34-66%) -Necrotic Tissue Type Adherent Slough -Texture (Yuliet-wound Skin Appearance) Assessed, Scarring -Moisture (Yuliet-wound Skin Appearance) Assessed, Maceration,Dry/ Scaly -Color (Yuliet-wound Skin Appearance) Assessed, Erythema -Temperature (Yuliet-wound Skin No Abnormality Appearance) (Pt Warm) -Tenderness on Palpation (Yuliet-wound No Skin Appearance) -Ulcer Cleansing Soap and Water -Foul Odor after Cleansing No -Anesthetic Used 4% Lidocaine Solution #9 right medial LE -Combined with other wound No -Current Size (cm) - Length 8 -Current Size (cm) - Width 1.8 -Current Size (cm) - Depth 0.1 -Total Square Cm 14.4 -Photo Taken No -Epithelialization Medium 34-66% -Tunneling No -Undermining/Tunneling No -Circular Undermining No -Exudate Amt Medium -Exudate Type Serosanguineous -Wound Margin Distinct, Outline Attached -Granulation Amt Large (67-100%) -Granulation Quality Red -Slough/Fibrin No -Texture (Yuliet-wound Skin Appearance) Assessed, Excoriation, Scarring -Moisture (Yuliet-wound Skin Appearance) Assessed,Dry/ Scaly -Color (Yuliet-wound Skin Appearance) Assessed -Temperature (Yuliet-wound Skin No Abnormality Appearance) (Pt Warm) -Tenderness on Palpation (Yuliet-wound No Skin Appearance) -Ulcer Cleansing Soap and Water -Foul Odor after Cleansing No -Anesthetic Used 4% Lidocaine Solution #6 R DORSAL foot -Combined with other wound No -Current Size (cm) - Length 5 -Current Size (cm) - Width 1.5 -Current Size (cm) - Depth 0.1 -Total Square Cm 7.5 -Photo Taken No -Epithelialization None Present -Tunneling No -Undermining/Tunneling No -Circular Undermining No -Exudate Amt Medium -Exudate Type Serous -Wound Margin Distinct, Outline Attached -Granulation Amt None Present (0 %) -Slough/Fibrin Yes -Necrosis Amt Large (67-100%) -Necrotic Tissue Type Adherent Slough -Texture (Yuliet-wound Skin Appearance) Assessed, Scarring -Moisture (Yuliet-wound Skin Appearance) Assessed, Maceration -Color (Yuliet-wound Skin Appearance) Assessed, Erythema -Temperature (Yuliet-wound Skin No Abnormality Appearance) (Pt Warm) -Tenderness on Palpation (Yuliet-wound No Skin Appearance) -Ulcer Cleansing Soap and Water -Foul Odor after Cleansing No -Anesthetic Used 4% Lidocaine Solution #5 L Med foot -Combined with other wound No -Current Size (cm) - Length 0.1 -Current Size (cm) - Width 0.1 -Current Size (cm) - Depth 0.1 -Total Square Cm 0.01 -Epithelialization Large 67-100% -Tunneling No -Undermining/Tunneling No -Circular Undermining No -Exudate Amt Small -Exudate Type Serous -Wound Margin Distinct, Outline Attached -Granulation Amt Large (67-100%) -Granulation Quality Red -Texture (Yuliet-wound Skin Appearance) Assessed, Scarring -Moisture (Yuliet-wound Skin Appearance) Assessed,Dry/ Scaly -Color (Yuliet-wound Skin Appearance) Assessed -Temperature (Yuliet-wound Skin No Abnormality Appearance) (Pt Warm) -Tenderness on Palpation (Yuliet-wound No Skin Appearance) -Ulcer Cleansing Soap and Water -Foul Odor after Cleansing No -Anesthetic Used 4% Lidocaine Solution #4 L Lat Foot -Combined with other wound No -Current Size (cm) - Length 1 -Current Size (cm) - Width 0.3 -Current Size (cm) - Depth 0.1 -Total Square Cm 0.3 -Epithelialization Small 1-33% -Tunneling No -Undermining/Tunneling No -Circular Undermining No -Exudate Amt Small -Exudate Type Serous -Wound Margin Distinct, Outline Attached -Granulation Amt None Present (0 %) -Slough/Fibrin Yes -Necrosis Amt Large (67-100%) -Necrotic Tissue Type Adherent Slough -Texture (Yuliet-wound Skin Appearance) Assessed, Scarring -Moisture (Yuliet-wound Skin Appearance) Assessed -Color (Yuliet-wound Skin Appearance) Assessed -Temperature (Yuliet-wound Skin No Abnormality Appearance) (Pt Warm) -Tenderness on Palpation (Yuliet-wound No Skin Appearance) -Ulcer Cleansing Soap and Water -Foul Odor after Cleansing No -Anesthetic Used 4% Lidocaine Solution #3 R Med Foot -Combined with other wound No -Current Size (cm) - Length 5.4 -Current Size (cm) - Width 1 -Current Size (cm) - Depth 0.4 -Total Square Cm 5.4 -Epithelialization Small 1-33% -Tunneling No -Undermining/Tunneling No -Circular Undermining No -Exudate Amt Small -Exudate Type Serous -Wound Margin Thickened -Granulation Amt Medium (34-66%) -Granulation Quality [place] -Slough/Fibrin Yes -Necrosis Amt Medium (34-66%) -Necrotic Tissue Type Adherent Slough -Texture (Yuliet-wound Skin Appearance) Assessed, Scarring -Moisture (Yuliet-wound Skin Appearance) Assessed, Maceration,Dry/ Scaly -Color (Yuliet-wound Skin Appearance) Assessed -Temperature (Yuliet-wound Skin No Abnormality Appearance) (Pt Warm) -Tenderness on Palpation (Yuliet-wound No Skin Appearance) -Ulcer Cleansing Soap and Water -Foul Odor after Cleansing No -Anesthetic Used 4% Lidocaine Solution #2 R Lat foot -Combined with other wound No -Current Size (cm) - Length 0.1 -Current Size (cm) - Width 0.1 -Current Size (cm) - Depth 0.1 -Total Square Cm 0.01 -Epithelialization Large 67-100% -Tunneling No -Undermining/Tunneling No -Circular Undermining No -Exudate Amt Small -Exudate Type Serous -Wound Margin Distinct, Outline Attached -Granulation Amt Large (67-100%) -Granulation Quality Red -Slough/Fibrin Yes -Necrosis Amt Small (1-33%) -Necrotic Tissue Type Adherent Slough -Texture (Yuliet-wound Skin Appearance) Assessed, Scarring -Moisture (Yuliet-wound Skin Appearance) Assessed -Color (Yuliet-wound Skin Appearance) Assessed -Temperature (Yuliet-wound Skin No Abnormality Appearance) (Pt Warm) -Tenderness on Palpation (Yuliet-wound No Skin Appearance) -Ulcer Cleansing Soap and Water -Foul Odor after Cleansing No -Anesthetic Used 4% Lidocaine Solution Lower Limb Edema Present Yes Right Calf (cm) 31 Right Ankle (cm) 23.5 Left Calf (cm) 34.5 Left Ankle (cm) 23 Additional Wound Wound debrided: Left medial ankle/lower extremity Type of Debridement: Excisional debridement Anesthesia Used: 5% Lidocaine Gel Depth: Down to and including healthy tissue and in the subcutaneous layer Percentage of wound debrided: 100 Instrument Used: 5mm curette, #15 blade and Forceps Tissue Removed: Slough and devitalized tissue Severity: Fat Layer Exposed Amount of bleeding with debridement: Mild Bleeding Controlled with: Pressure Patient tolerated procedure: Patient tolerated procedure well Additional Wound Wound debrided: Right medial ankle/lower extremity Type of Debridement: Excisional debridement Anesthesia Used: 5% Lidocaine Gel Depth: Down to and including healthy tissue and in the subcutaneous layer Percentage of wound debrided: 100 Instrument Used: 5mm curette, #15 blade and Forceps Tissue Removed: Slough and devitalized tissue Severity: Fat Layer Exposed Amount of bleeding with debridement: Mild Bleeding Controlled with: Pressure Patient tolerated procedure: Patient tolerated procedure well Additional Wound Wound debrided: Right Medial Leg ( Cluster ) Type of Debridement: Excisional debridement Anesthesia Used: 4% Lidocaine Solution Depth: Down to and including healthy tissue and in the subcutaneous layer Percentage of wound debrided: 100 Instrument Used: 7mm curette Tissue Removed: Slough and devitalized tissue Severity: Fat Layer Exposed Amount of bleeding with debridement: Mild Bleeding Controlled with: Pressure Patient tolerated procedure: Patient tolerated procedure well Additional Wound Wound debrided: Right Dorsal Foot Type of Debridement: Excisional debridement Anesthesia Used: 4% Lidocaine Solution Depth: Down to and including healthy tissue and in the subcutaneous layer Percentage of wound debrided: 100 Instrument Used: 7mm curette Tissue Removed: Slough and devitalized tissue Severity: Fat Layer Exposed Amount of bleeding with debridement: Mild Bleeding Controlled with: Pressure Patient tolerated procedure: Patient tolerated procedure well Additional Wound Wound debrided: Right Lateral Ankle/Foot Type of Debridement: Excisional debridement Anesthesia Used: 4% Lidocaine Solution Depth: Down to and including healthy tissue and in the subcutaneous layer Percentage of wound debrided: 100 Instrument Used: 5mm curette Tissue Removed: Slough and devitalized tissue Severity: Fat Layer Exposed Amount of bleeding with debridement: Mild Bleeding Controlled with: Pressure Patient tolerated procedure: Patient tolerated procedure well Assessment/Plan Assessment/Plan (1) Ulcer of right lower extremity with fat layer exposed: CODE(S): L97.912 - Non-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 (2) Ulcer of left lower extremity with fat layer exposed: CODE(S): L97.922 - Non-pressure chronic ulcer of unspecified part of left lower leg with fat layer exposed (3) Ulcer of right heel and midfoot with fat layer exposed: CODE(S): L97.412 - Non-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 Concern for right foot cellulitis, imaging ordered to rule out other possibilities. Also started on Keflex and doxycycline empirically. Switch to silver cell to right foot ulcers and cover with superabsorbent dressing/ ABD Change daily to twice daily depending on drainage. Moistened Promogran and Adaptic to left foot ulcers. Cole wrap to both extremity for edema management. Leg elevation, optimize protein and nutrition. Their questions were answered and they were advised to let us know if they have any further questions or concerns. Follow-up in 1 week or sooner if needed. This note was generated with [employer] dictation software. It may contain incorrect words, spelling, and punctuation that were not noted in checking the note before signing.
[2022-12-04 10:54] VITALS: BP 96/43; PULSE 64; RESP 16; TEMP 36.5
--- NOTE | 2022-12-04 12:42 | PN.PCM_ITS ---
History of Present Illness Date of Service: 12/04/22 Chief Complaint: Nonhealing bilateral lower extremity ulcers History of Wound: Mr Wilson is an 82-year-old who was brought in here from his senior care due to nonhealing bilateral lower extremity ulcers. Has had recurrent ulcerations for over 10 years with most recent episode being more severe late last year. He was seen at the emergency room and subsequently advised to follow-up at a wound center which he did at [facility] without any significant improvement. A month ago, he was hospitalized for sepsis secondary to bilateral lower extremity ulcers. Following his admission and hospital stay, he did not return to the prior wound center. He reports a lot of drainage from his ulcers. They have been inconsistent dressing changes at his facility. He feels well otherwise and denies chills, fever. Currently has a PICC line and he is on IV vancomycin and cephalosporin. Progress of Wound: No new concerns at this time. X-ray done at his last visit not concerning for osteomyelitis. Redness/erythema has improved. Objective Data Objective Data Vital Signs: Vital Signs Temp Pulse Resp BP O2 Del Method 97.7 F L 64 16 96/43 L Room Air 12/04/22 10:54 12/04/22 10:54 12/04/22 10:54 12/04/22 10:54 12/04/22 10:54 Oxygen Delivery Method Room Air Charges/Coding Procedures Integumentary 111xxx-113xx: 69251 Samina subq tissue 20 sq cm/< Add On Codes: 46843 Samina subq tissue add-on (x 3.Additional square centimeter debrided, please refer to clinical note.) Physical Exam Const alert and no apparent distress General Appearance: cooperative and comfortable HEENT normocephalic, head/scalp atraumatic and hearing grossly normal bilaterally Head and Scalp: normal to inspection, normocephalic and atraumatic Eyes EOMs intact bilaterally Neck full ROM General: normal visual inspection Resp normal respiratory effort Effort and Inspection: able to speak in complete sentences Extremity General Extremity: deformity Skin Wounds: wounds noted Neuro CN's II-XII intact bilaterally, moves all extremities and no focal motor deficits Psych mental status grossly normal Appearance: grossly normal Attitude: calm Activity / Motor Behavior: appropriate eye contact Debridement Note Debridement Note Wound debrided: Left Lateral ankle/Lower extremity Type of Debridement: Excisional debridement Anesthesia Used: 5% Lidocaine Gel Depth: Down to and including healthy tissue and in the subcutaneous layer Percentage of wound debrided: 100 Instrument Used: 5mm curette, #15 blade and Forceps Tissue Removed: Slough and devitalized tissue Severity: Fat Layer Exposed Amount of bleeding with debridement: Mild Bleeding Controlled with: Pressure Patient tolerated procedure: Patient tolerated procedure well Post-Debridement Measurements and Additional Note: Post-Debridement Measurements/Treatment SASHA - Nurse 1 - General Ulcer Assessment Start: 11/27/22 10:57 Freq: Status: Active Protocol: MARTA Activity Type Activity Date Activity User E-sign Co-sign Detail Recorded Client Recorded Date Recorded By Document 11/27/22 11:02 DL [id number] 11/27/22 11:21 DL Document 12/04/22 10:54 [facility] [id number] 12/04/22 11:18 [facility] 11/27/22 12/04/22 11:02 10:54 - Today's Visit Information Type of service Follow-up Visit Follow-up Visit (Physician/ZIPPER CUTTER (Physician/ZIPPER CUTTER ) ) Arrival Mode Wheelchair Wheelchair Transfer Assistance Other Transfer Assist (Other) x1 2 Accompanied by TRANSPORT CAREGIVER FROM [facility] Patient Identification Verified (Name & Yes Yes ) Patient Requires Transmission-Based No No Precautions Finger Stick Blood Sugar(mg/dl) (if not checked indicated): Blood Sugar Stated by Patient Vital Signs Temperature (97.8 F-99.1 F) 97.1 F L 97.7 F L Temperature Source Temporal Temporal Pulse Rate (60-100) 74 64 Pulse Location Monitor Monitor Respiratory Rate (12-18) 20 H 16 Respiratory rate source Observation Observation Oxygen Delivery Method Room Air Blood Pressure (90/60-120/80) 110/47 L 96/43 L Blood Pressure Mean (mm Hg) 68 60 Source Monitor Monitor Position Sitting Blood Pressure Location Right Arm History Since Last Visit- (Skip if this is Patient's initial visit) Have you changed medications since your No No last visit? Any new allergies or adverse reactions No No Had a fall/change in ADL's that may No No increase risk of falls Signs or symptoms of abuse and/or No No neglect since last visit Have you been in the hospital since your No No last visit? Has dressing in place as prescribed Yes No Has compression in place as prescribed Yes Yes Has offloadiing in place as prescribed Yes Yes Experienced any changes in pain level or No management Left Footwear Surgical Shoe Surgical Shoe with pressure with pressure relief insole relief insole Right Footwear Surgical Shoe Surgical Shoe with pressure with pressure relief insole relief insole Pain Scale: 0-10 Numeric Is Patient Pain Free? Yes Yes WC - Nurse 1 - General Ulcer Measurement Start: 11/27/22 10:57 Freq: Status: Active Protocol: Activity Type Activity Date Activity User E-sign Co-sign Detail Recorded Client Recorded Date Recorded By Document 11/27/22 11:02 DL [id number] 11/27/22 11:21 DL Document 12/04/22 10:54 [facility] [id number] 12/04/22 11:18 BM 11/27/22 12/04/22 11:02 10:54 Wound Center Nurse 1 #8 right lateral LE -Combined with other wound No -Current Size (cm) - Length 1 -Current Size (cm) - Width 0.8 -Current Size (cm) - Depth 0.2 -Total Square Cm 0.8 -Photo Taken No -Epithelialization Small 1-33% -Tunneling No -Undermining/Tunneling No -Circular Undermining No -Exudate Amt Medium -Exudate Type Serosanguineous -Wound Margin Distinct, Outline Attached -Granulation Amt Medium (34-66%) -Granulation Quality Red -Slough/Fibrin Yes -Necrosis Amt Medium (34-66%) -Necrotic Tissue Type Adherent Slough -Texture (Yuliet-wound Skin Appearance) Assessed, Scarring -Moisture (Yuliet-wound Skin Appearance) Assessed, Maceration,Dry/ Scaly -Color (Yuliet-wound Skin Appearance) Assessed, Erythema -Temperature (Yuliet-wound Skin No Abnormality Appearance) (Pt Warm) -Tenderness on Palpation (Yuliet-wound No Skin Appearance) -Ulcer Cleansing Soap and Water -Foul Odor after Cleansing No -Anesthetic Used 4% Lidocaine Solution #9 right medial LE -Combined with other wound No No -Current Size (cm) - Length 8 4.5 -Current Size (cm) - Width 1.8 1.1 -Current Size (cm) - Depth 0.1 0.1 -Total Square Cm 14.4 4.95 -Date of Last Picture (Recall this 12/04/22 field) -Photo Taken No Yes -Epithelialization Medium 34-66% Small 1-33% -Tunneling No No -Undermining/Tunneling No No -Circular Undermining No No -Exudate Amt Medium Medium -Exudate Type Serosanguineous Serous -Wound Margin Distinct, Distinct, Outline Outline Attached Attached -Granulation Amt Large (67-100%) Medium (34-66%) -Granulation Quality Red [place] -Slough/Fibrin No Yes -Necrosis Amt Small (1-33%) -Texture (Yuliet-wound Skin Appearance) Assessed, Assessed, Excoriation, Scarring Scarring -Moisture (Yuliet-wound Skin Appearance) Assessed,Dry/ Assessed, Scaly Maceration,Dry/ Scaly -Color (Yuliet-wound Skin Appearance) Assessed Assessed -Temperature (Yuliet-wound Skin No Abnormality No Abnormality Appearance) (Pt Warm) (Pt Warm) -Tenderness on Palpation (Yuliet-wound No No Skin Appearance) -Ulcer Cleansing Soap and Water Soap and Water -Foul Odor after Cleansing No Yes, Due to Product Use -Anesthetic Used 4% Lidocaine 4% Lidocaine Solution Solution #6 R DORSAL foot -Combined with other wound No No -Current Size (cm) - Length 5 2 -Current Size (cm) - Width 1.5 5.5 -Current Size (cm) - Depth 0.1 0.1 -Total Square Cm 7.5 11.0 -Date of Last Picture (Recall this 12/04/22 field) -Photo Taken No Yes -Epithelialization None Present Small 1-33% -Tunneling No No -Undermining/Tunneling No No -Circular Undermining No No -Exudate Amt Medium Medium -Exudate Type Serous Serous -Wound Margin Distinct, Distinct, Outline Outline Attached Attached -Granulation Amt None Present (0 Small (1-33%) %) -Granulation Quality [place] -Slough/Fibrin Yes Yes -Necrosis Amt Large (67-100%) Large (67-100%) -Necrotic Tissue Type Adherent Slough Adherent Slough -Texture (Yuliet-wound Skin Appearance) Assessed, Assessed, Scarring Scarring -Moisture (Yuliet-wound Skin Appearance) Assessed, Assessed, Maceration Maceration -Color (Yuliet-wound Skin Appearance) Assessed, Assessed, Erythema Erythema -Temperature (Yuliet-wound Skin No Abnormality No Abnormality Appearance) (Pt Warm) (Pt Warm) -Tenderness on Palpation (Yuliet-wound No No Skin Appearance) -Ulcer Cleansing Soap and Water Soap and Water -Foul Odor after Cleansing No No -Anesthetic Used 4% Lidocaine 4% Lidocaine Solution Solution #5 L Med foot -Combined with other wound No No -Current Size (cm) - Length 0.1 2.5 -Current Size (cm) - Width 0.1 1.5 -Current Size (cm) - Depth 0.1 0.1 -Total Square Cm 0.01 3.75 -Date of Last Picture (Recall this 12/04/22 field) -Photo Taken Yes -Epithelialization Large 67-100% Small 1-33% -Tunneling No No -Undermining/Tunneling No No -Circular Undermining No No -Exudate Amt Small Small -Exudate Type Serous Serous -Wound Margin Distinct, Flat & Intact Outline Attached -Granulation Amt Large (67-100%) Medium (34-66%) -Granulation Quality [place] -Slough/Fibrin Yes -Necrosis Amt Medium (34-66%) -Necrotic Tissue Type Adherent Slough -Texture (Yuliet-wound Skin Appearance) Assessed, Assessed, Scarring Scarring -Moisture (Yuliet-wound Skin Appearance) Assessed,Dry/ Assessed,Dry/ Scaly Scaly -Color (Yuliet-wound Skin Appearance) Assessed Assessed -Temperature (Yuliet-wound Skin No Abnormality No Abnormality Appearance) (Pt Warm) (Pt Warm) -Tenderness on Palpation (Yuliet-wound No No Skin Appearance) -Ulcer Cleansing Soap and Water Soap and Water -Foul Odor after Cleansing No No -Anesthetic Used 4% Lidocaine 4% Lidocaine Solution Solution #4 L Lat Foot -Combined with other wound No No -Current Size (cm) - Length 1 0.1 -Current Size (cm) - Width 0.3 0.1 -Current Size (cm) - Depth 0.1 0.1 -Total Square Cm 0.3 0.01 -Date of Last Picture (Recall this 12/04/22 field) -Photo Taken Yes -Epithelialization Small 1-33% Large 67-100% -Tunneling No No -Undermining/Tunneling No No -Circular Undermining No No -Exudate Amt Small None Present -Exudate Type Serous -Wound Margin Distinct, Distinct, Outline Outline Attached Attached -Granulation Amt None Present (0 %) -Slough/Fibrin Yes -Necrosis Amt Large (67-100%) -Necrotic Tissue Type Adherent Slough -Texture (Yuliet-wound Skin Appearance) Assessed, Assessed, Scarring Scarring -Moisture (Yuliet-wound Skin Appearance) Assessed Assessed -Color (Yuliet-wound Skin Appearance) Assessed Assessed -Temperature (Yuliet-wound Skin No Abnormality No Abnormality Appearance) (Pt Warm) (Pt Warm) -Tenderness on Palpation (Yuliet-wound No No Skin Appearance) -Ulcer Cleansing Soap and Water Soap and Water -Foul Odor after Cleansing No No -Anesthetic Used 4% Lidocaine 4% Lidocaine Solution Solution #3 R Med Foot -Combined with other wound No No -Current Size (cm) - Length 5.4 1.5 -Current Size (cm) - Width 1 0.5 -Current Size (cm) - Depth 0.4 0.1 -Total Square Cm 5.4 0.75 -Date of Last Picture (Recall this 12/04/22 field) -Photo Taken Yes -Epithelialization Small 1-33% Small 1-33% -Tunneling No No -Undermining/Tunneling No No -Circular Undermining No No -Exudate Amt Small -Exudate Type Serous Serous -Wound Margin Thickened Distinct, Outline Attached -Granulation Amt Medium (34-66%) Small (1-33%) -Granulation Quality [place] -Slough/Fibrin Yes Yes -Necrosis Amt Medium (34-66%) Large (67-100%) -Necrotic Tissue Type Adherent Slough Adherent Slough -Texture (Yuliet-wound Skin Appearance) Assessed, Assessed, Scarring Scarring -Moisture (Yuliet-wound Skin Appearance) Assessed, Assessed, Maceration,Dry/ Maceration Scaly -Color (Yuliet-wound Skin Appearance) Assessed Assessed, Erythema -Temperature (Yuliet-wound Skin No Abnormality No Abnormality Appearance) (Pt Warm) (Pt Warm) -Tenderness on Palpation (Yuliet-wound No No Skin Appearance) -Ulcer Cleansing Soap and Water Soap and Water -Foul Odor after Cleansing No No -Anesthetic Used 4% Lidocaine 4% Lidocaine Solution Solution #2 R Lat foot -Combined with other wound No No -Current Size (cm) - Length 0.1 6.5 -Current Size (cm) - Width 0.1 0.1 -Current Size (cm) - Depth 0.1 0.1 -Total Square Cm 0.01 0.65 -Date of Last Picture (Recall this 12/04/22 field) -Photo Taken Yes -Epithelialization Large 67-100% Small 1-33% -Tunneling No No -Undermining/Tunneling No No -Circular Undermining No No -Exudate Amt Small Medium -Exudate Type Serous Serous -Wound Margin Distinct, Distinct, Outline Outline Attached Attached -Granulation Amt Large (67-100%) Small (1-33%) -Granulation Quality [place] -Slough/Fibrin Yes Yes -Necrosis Amt Small (1-33%) Large (67-100%) -Necrotic Tissue Type Adherent Slough Adherent Slough -Texture (Yuliet-wound Skin Appearance) Assessed, Assessed, Scarring Scarring -Moisture (Yuliet-wound Skin Appearance) Assessed Assessed, Maceration,Dry/ Scaly -Color (Yuliet-wound Skin Appearance) Assessed Assessed -Temperature (Yuliet-wound Skin No Abnormality No Abnormality Appearance) (Pt Warm) (Pt Warm) -Tenderness on Palpation (Yuliet-wound No No Skin Appearance) -Ulcer Cleansing Soap and Water Soap and Water -Foul Odor after Cleansing No No -Anesthetic Used 4% Lidocaine 4% Lidocaine Solution Solution Lower Limb Edema Present Yes Yes Right Calf (cm) 31 34 Right Ankle (cm) 23.5 23.5 Left Calf (cm) 34.5 Left Ankle (cm) 23 WC - Nurse 2 - General Ulcer CM Notes Start: 11/27/22 10:57 Freq: Status: Active Protocol: Activity Type Activity Date Activity User E-sign Co-sign Detail Recorded Client Recorded Date Recorded By Document 11/27/22 11:40 MW [id number] 11/27/22 12:09 MW Document 12/04/22 11:32 MW [id number] 12/04/22 11:58 MW 11/27/22 12/04/22 11:40 11:32 Wound Center Nurse 2 #8 right lateral LE -Time 11:40 -Correct Patient Yes -Correct Side, Site, Position Yes -Correct Procedure Yes -Procedure Performed No -Post Debridement (cm) - Length 0 -Post Debridement (cm) - Width 0 -Total Square (Post) (cm) 0 -Tunneling No -Undermining/Tunneling No -Circular Undermining No -Wound/Ulcer Outcome Healed- Epithelialized #9 right medial LE -Time 11:41 11:37 -Correct Patient Yes Yes -Correct Side, Site, Position Yes Yes -Correct Procedure Yes Yes -Procedure Performed Yes Yes -Type of Procedure Debridement Debridement -Clinical Debridement Subcutaneous Subcutaneous -Tissue Removed Subcutaneous Subcutaneous -Post Debridement (cm) - Length 10.0 1.5 -Post Debridement (cm) - Width 3.0 0.7 -Post Debridement (cm) - Depth 0.1 0.1 -Total Square (Post) (cm) 30.00 1.05 -Area of Debridement (cm) - Length 10.0 1.5 -Area of Debridement (cm) - Width 3.0 0.7 -Total Square (Area) (cm) 30.00 1.05 -Tunneling No No -Undermining/Tunneling No No -Circular Undermining No No -Wound/Ulcer Outcome Not Healed Not Healed -Ulcer Cleansing Rinsed/ Rinsed/ Irrigated with Irrigated with Saline Saline -Foul Odor after Cleansing No No -Bioengineered Tissue No No -Bleeding Controlled with Pressure Pressure -Treatment Response Procedure Tolerated Well -Offloading No -Debridement - Subq, 1st 20sq cm Yes Yes -Debridement, SubQ, ea addt'l 20sq cm 3 3 or part thereof #6 R DORSAL foot -Time : 11:39 -Correct Patient Yes Yes -Correct Side, Site, Position Yes Yes -Correct Procedure Yes Yes -Procedure Performed Yes Yes -Type of Procedure Debridement Debridement -Clinical Debridement Subcutaneous Subcutaneous -Tissue Removed Subcutaneous Epidermis, Subcutaneous -Post Debridement (cm) - Length 1.0 1.5 -Post Debridement (cm) - Width 0.8 5.5 -Post Debridement (cm) - Depth 0.1 0.1 -Total Square (Post) (cm) 0.80 8.25 -Area of Debridement (cm) - Length 1.0 1.5 -Area of Debridement (cm) - Width 0.8 5.5 -Total Square (Area) (cm) 0.80 8.25 -Tunneling No No -Undermining/Tunneling No No -Circular Undermining No No -Wound/Ulcer Outcome Not Healed Not Healed -Ulcer Cleansing Rinsed/ Rinsed/ Irrigated with Irrigated with Saline Saline -Foul Odor after Cleansing No No -Bioengineered Tissue No No -Bleeding Controlled with Pressure Pressure -Treatment Response Procedure Procedure Tolerated Well Tolerated Well -Offloading No No -Debridement - Subq, 1st 20sq cm No No #5 L Med foot -Time 11:41 11:53 -Correct Patient Yes Yes -Correct Side, Site, Position Yes Yes -Correct Procedure Yes Yes -Procedure Performed Yes Yes -Type of Procedure Debridement Debridement -Clinical Debridement Subcutaneous Subcutaneous -Tissue Removed Subcutaneous Subcutaneous -Post Debridement (cm) - Length 1.0 1.3 -Post Debridement (cm) - Width 2.0 3.0 -Post Debridement (cm) - Depth 0.1 0.2 -Total Square (Post) (cm) 2.00 3.90 -Area of Debridement (cm) - Length 1.0 1.3 -Area of Debridement (cm) - Width 2.0 3.0 -Total Square (Area) (cm) 2.00 3.90 -Tunneling No No -Undermining/Tunneling No No -Circular Undermining No No -Wound/Ulcer Outcome Not Healed Not Healed -Ulcer Cleansing Rinsed/ Rinsed/ Irrigated with Irrigated with Saline Saline -Foul Odor after Cleansing No No -Bioengineered Tissue No No -Bleeding Controlled with Pressure Pressure -Treatment Response Procedure Procedure Tolerated Well Tolerated Well -Offloading No No -Debridement - Subq, 20sq cm No No #4 L Lat Foot -Time 11:54 -Correct Patient Yes Yes -Correct Side, Site, Position Yes Yes -Correct Procedure Yes Yes -Procedure Performed Yes Yes -Type of Procedure Debridement Debridement -Clinical Debridement Subcutaneous Subcutaneous -Tissue Removed Subcutaneous Subcutaneous -Post Debridement (cm) - Length 1.6 1.0 -Post Debridement (cm) - Width 0.4 0.3 -Post Debridement (cm) - Depth 0.2 0.2 -Total Square (Post) (cm) 0.64 0.30 -Area of Debridement (cm) - Length 1.6 1.0 -Area of Debridement (cm) - Width 0.4 0.3 -Total Square (Area) (cm) 0.64 0.30 -Tunneling No No -Undermining/Tunneling No No -Circular Undermining No No -Wound/Ulcer Outcome Not Healed Not Healed -Ulcer Cleansing Rinsed/ Rinsed/ Irrigated with Irrigated with Saline Saline -Foul Odor after Cleansing No No -Bioengineered Tissue No No -Bleeding Controlled with Pressure Pressure -Treatment Response Procedure Procedure Tolerated Well Tolerated Well -Offloading No No -Debridement - Subq, 1st 20sq cm No No #3 R Med Foot -Time 11:55 -Correct Patient Yes Yes -Correct Side, Site, Position Yes Yes -Correct Procedure Yes Yes -Procedure Performed Yes Yes -Type of Procedure Debridement Debridement -Clinical Debridement Subcutaneous Subcutaneous -Tissue Removed Subcutaneous Epidermis, Subcutaneous -Post Debridement (cm) - Length 2.0 2.0 -Post Debridement (cm) - Width 8.5 9.0 -Post Debridement (cm) - Depth 0.2 0.3 -Total Square (Post) (cm) 17.00 18.00 -Area of Debridement (cm) - Length 2.0 2.0 -Area of Debridement (cm) - Width 8.5 9.0 -Total Square (Area) (cm) 17.00 18.00 -Tunneling No No -Undermining/Tunneling No No -Circular Undermining No No -Wound/Ulcer Outcome Not Healed Not Healed -Ulcer Cleansing Rinsed/ Rinsed/ Irrigated with Irrigated with Saline Saline -Foul Odor after Cleansing No No -Bioengineered Tissue No No -Bleeding Controlled with Pressure Pressure -Treatment Response Procedure Procedure Tolerated Well Tolerated Well -Offloading No No -Debridement - Subq, 1st 20sq cm No No #2 R Lat foot -Time 11:41 11:55 -Correct Patient Yes Yes -Correct Side, Site, Position Yes Yes -Correct Procedure Yes Yes -Procedure Performed Yes Yes -Type of Procedure Debridement Debridement -Clinical Debridement Subcutaneous Subcutaneous -Tissue Removed Subcutaneous Subcutaneous -Post Debridement (cm) - Length 4.0 5.0 -Post Debridement (cm) - Width 6.0 7.0 -Post Debridement (cm) - Depth 0.1 0.2 -Total Square (Post) (cm) 24.00 35.00 -Area of Debridement (cm) - Length 4.0 5.0 -Area of Debridement (cm) - Width 6.0 7.0 -Total Square (Area) (cm) 24.00 35.00 -Tunneling No No -Undermining/Tunneling No No -Circular Undermining No No -Wound/Ulcer Outcome Not Healed Not Healed -Ulcer Cleansing Rinsed/ Rinsed/ Irrigated with Irrigated with Saline Saline -Foul Odor after Cleansing No No -Bioengineered Tissue No No -Bleeding Controlled with Pressure Pressure -Treatment Response Procedure Procedure Tolerated Well Tolerated Well -Offloading No No -Debridement - Subq, 1st 20sq cm No No Pain Scale: 0-10 Numeric Is Patient Pain Free? Yes Yes WC - Nurse 3 - General Ulcer D/C NN Start: 11/27/22 10:57 Freq: Status: Active Protocol: Activity Type Activity Date Activity User E-sign Co-sign Detail Recorded Client Recorded Date Recorded By Document 12/04/22 12:03 BMF [id number] 12/04/22 12:06 BMF Edit Result 12/04/22 12:03 BMF (1) [id number] 12/04/22 12:18 BMF (1) #9 right medial LE - [place] 1 => 2 #5 L Med foot - Promogran 1 => 2 12/04/22 12:03 Wound Care Center Nurse 3 #9 right medial LE -Ulcer Cleansing Soap and Water -Foul Odor after Cleansing No -Primary Dressing Applied [place] -Other Dressing ABD, DRSG PER DL METER READERS SUPERVISOR -Primary Dressing Covered/Secured with Dry Gauze & Roll Gauze, Secured with Tape -[place] 2 #6 R DORSAL foot -Ulcer Cleansing Soap and Water -Foul Odor after Cleansing No -Primary Dressing Applied [place] -Other Dressing ABD; DRSG PER DL METER READERS SUPERVISOR -Primary Dressing Covered/Secured with Dry Gauze & Roll Gauze, Secured with Tape -[place] 0 #5 L Med foot -Ulcer Cleansing Soap and Water -Primary Dressing Applied NonAdherent Contact Layer, Promogran -Other Dressing ABD; DRSG PER DL METER READERS SUPERVISOR -Primary Dressing Covered/Secured with Dry Gauze & Roll Gauze, Secured with Tape -Promogran 2 #4 L Lat Foot -Ulcer Cleansing Soap and Water -Foul Odor after Cleansing No -Primary Dressing Applied NonAdherent Contact Layer, Promogran -Other Dressing ABD; DRSG PER DL METER READERS SUPERVISOR -Promogran 0 #3 R Med Foot -Ulcer Cleansing Soap and Water -Foul Odor after Cleansing No -Primary Dressing Applied [place] -Other Dressing ABD; PER DL METER READERS SUPERVISOR -Primary Dressing Covered/Secured with Dry Gauze & Roll Gauze, Secured with Tape -[place] 0 #2 R Lat foot -Ulcer Cleansing Soap and Water -Foul Odor after Cleansing No -Primary Dressing Applied [place] -Other Dressing ABD; DRSG PER DL METER READERS SUPERVISOR -Primary Dressing Covered/Secured with Dry Gauze & Roll Gauze, Secured with Tape -[place] 0 BLE -Compression Wrap Cole Wrap Treatment Response Procedure Tolerated Well Pain Scale: 0-10 Numeric Is Patient Pain Free? Yes WC - Visit Discharge Discharge Condition Stable Ambulatory Status Stretcher Transportation TRANSPORT Facility Type Paediatric Surgeon Care Facility Additional Wound Wound debrided: Left medial ankle/lower extremity Type of Debridement: Excisional debridement Anesthesia Used: 5% Lidocaine Gel Depth: Down to and including healthy tissue and in the subcutaneous layer Percentage of wound debrided: 100 Instrument Used: 5mm curette, #15 blade and Forceps Tissue Removed: Slough and devitalized tissue Severity: Fat Layer Exposed Amount of bleeding with debridement: Mild Bleeding Controlled with: Pressure Patient tolerated procedure: Patient tolerated procedure well Additional Wound Wound debrided: Right medial ankle/lower extremity Type of Debridement: Excisional debridement Anesthesia Used: 5% Lidocaine Gel Depth: Down to and including healthy tissue and in the subcutaneous layer Percentage of wound debrided: 100 Instrument Used: 5mm curette, #15 blade and Forceps Tissue Removed: Slough and devitalized tissue Severity: Fat Layer Exposed Amount of bleeding with debridement: Mild Bleeding Controlled with: Pressure Patient tolerated procedure: Patient tolerated procedure well Additional Wound Wound debrided: Right Medial Leg ( Cluster ) Type of Debridement: Excisional debridement Anesthesia Used: 4% Lidocaine Solution Depth: Down to and including healthy tissue and in the subcutaneous layer Percentage of wound debrided: 100 Instrument Used: 7mm curette Tissue Removed: Slough and devitalized tissue Severity: Fat Layer Exposed Amount of bleeding with debridement: Mild Bleeding Controlled with: Pressure Patient tolerated procedure: Patient tolerated procedure well Additional Wound Wound debrided: Right Dorsal Foot Type of Debridement: Excisional debridement Anesthesia Used: 4% Lidocaine Solution Depth: Down to and including healthy tissue and in the subcutaneous layer Percentage of wound debrided: 100 Instrument Used: 7mm curette Tissue Removed: Slough and devitalized tissue Severity: Fat Layer Exposed Amount of bleeding with debridement: Mild Bleeding Controlled with: Pressure Patient tolerated procedure: Patient tolerated procedure well Additional Wound Wound debrided: Right Lateral Ankle/Foot Type of Debridement: Excisional debridement Anesthesia Used: 4% Lidocaine Solution Depth: Down to and including healthy tissue and in the subcutaneous layer Percentage of wound debrided: 100 Instrument Used: 5mm curette Tissue Removed: Slough and devitalized tissue Severity: Fat Layer Exposed Amount of bleeding with debridement: Mild Bleeding Controlled with: Pressure Patient tolerated procedure: Patient tolerated procedure well Assessment/Plan Assessment/Plan (1) Ulcer of right lower extremity with fat layer exposed: CODE(S): L97.912 - Non-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 (2) Ulcer of left lower extremity with fat layer exposed: CODE(S): L97.922 - Non-pressure chronic ulcer of unspecified part of left lower leg with fat layer exposed (3) Ulcer of right heel and midfoot with fat layer exposed: CODE(S): L97.412 - Non-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 Erythema with some improvement this week. X-ray not concerning for osteomyelitis or significant subcu infection. Continue silver cell to right foot ulcers and cover with superabsorbent dressing/ ABD Change daily to twice daily depending on drainage. Moistened Promogran and Adaptic to left foot ulcers. Cole wrap to both extremity for edema management. Leg elevation, optimize protein and nutrition. Their questions were answered and they were advised to let us know if they have any further questions or concerns. Follow-up in 1 week or sooner if needed. This note was generated with [employer] dictation software. It may contain incorrect words, spelling, and punctuation that were not noted in checking the note before signing.
[2022-12-11 11:18] VITALS: BP 109/49; PULSE 68; RESP 18; TEMP 36.1
--- NOTE | 2022-12-11 12:37 | PN.PCM_ITS ---
History of Present Illness Date of Service: 12/11/22 Chief Complaint: Nonhealing bilateral lower extremity ulcers History of Wound: Mr Wilson is an 82-year-old who was brought in here from his residential due to nonhealing bilateral lower extremity ulcers. Has had recurrent ulcerations for over 10 years with most recent episode being more severe late last year. He was seen at the emergency room and subsequently advised to follow-up at a wound center which he did at [facility] without any significant improvement. A month ago, he was hospitalized for sepsis secondary to bilateral lower extremity ulcers. Following his admission and hospital stay, he did not return to the prior wound center. He reports a lot of drainage from his ulcers. They have been inconsistent dressing changes at his facility. He feels well otherwise and denies chills, fever. Currently has a PICC line and he is on IV vancomycin and cephalosporin. Progress of Wound: New right posterior leg ulcer. Blistering which subsequently opened up. Other ulcers with no significant change. Dressings not being done at facility as recommended. Objective Data Objective Data Vital Signs: Vital Signs Temp Pulse Resp BP O2 Del Method 97.0 F L 68 18 109/49 L Room Air 12/11/22 11:18 12/11/22 11:18 12/11/22 11:18 12/11/22 11:18 12/04/22 10:54 Oxygen Delivery Method Room Air Charges/Coding Procedures Integumentary 111xxx-113xx: 72021 Samina subq tissue 20 sq cm/< Add On Codes: 96058 Samina subq tissue add-on (x5. Additional square centimeter debrided, please refer to clinical note.) Physical Exam Const alert and no apparent distress General Appearance: cooperative and comfortable HEENT normocephalic, head/scalp atraumatic and hearing grossly normal bilaterally Head and Scalp: normal to inspection, normocephalic and atraumatic Eyes EOMs intact bilaterally Neck full ROM General: normal visual inspection Resp normal respiratory effort Effort and Inspection: able to speak in complete sentences Extremity General Extremity: deformity Skin Wounds: wounds noted Neuro CN's II-XII intact bilaterally, moves all extremities and no focal motor deficits Psych mental status grossly normal Appearance: grossly normal Attitude: calm Activity / Motor Behavior: appropriate eye contact Debridement Note Debridement Note Wound debrided: Left Lateral ankle/Lower extremity Type of Debridement: Excisional debridement Anesthesia Used: 5% Lidocaine Gel Depth: Down to and including healthy tissue and in the subcutaneous layer Percentage of wound debrided: 100 Instrument Used: 5mm curette, #15 blade and Forceps Tissue Removed: Slough and devitalized tissue Severity: Fat Layer Exposed Amount of bleeding with debridement: Mild Bleeding Controlled with: Pressure Patient tolerated procedure: Patient tolerated procedure well Post-Debridement Measurements and Additional Note: Post-Debridement Measurements/Treatment - Nurse 1 - General Ulcer Assessment Start: 11/27/22 10:57 Freq: Status: Active Protocol: MARTA Activity Type Activity Date Activity User E-sign Co-sign Detail Recorded Client Recorded Date Recorded By Document 11/27/22 11:02 DL [id number] 11/27/22 11:21 DL Document 12/04/22 10:54 [facility] [id number] 12/04/22 11:18 [facility] Document 12/11/22 11:18 [id number] 12/11/22 11:19 11/27/22 12/04/22 12/11/22 11:02 10:54 11:18 - Today's Visit Information Type of service Follow-up Visit Follow-up Visit Follow-up Visit (Physician/LIGHTING SPECIALIST (Physician/LIGHTING SPECIALIST (Physician/LIGHTING SPECIALIST ) ) ) Arrival Mode Wheelchair Wheelchair Wheelchair Transfer Assistance Other Manual Transfer Assist (Other) x1 2 Accompanied by TRANSPORT caregiver CAREGIVER FROM [facility] Patient Identification Verified (Name & Yes Yes Yes ) Patient Requires Transmission-Based No No No Precautions Finger Stick Blood Sugar(mg/dl) (if not checked indicated): Blood Sugar Stated by Patient Vital Signs Temperature (97.8 F-99.1 F) 97.1 F L 97.7 F L 97.0 F L Temperature Source Temporal Temporal Temporal Pulse Rate (60-100) 74 64 68 Pulse Location Monitor Monitor Monitor Respiratory Rate (12-18) 20 H 16 18 Respiratory rate source Observation Observation Observation Oxygen Delivery Method Room Air Blood Pressure (90/60-120/80) 110/47 L 96/43 L 109/49 L Blood Pressure Mean (mm Hg) 68 60 69 Source Monitor Monitor Monitor Position Sitting Sitting Blood Pressure Location Right Arm Left Arm History Since Last Visit- (Skip if this is Patient's initial visit) Have you changed medications since your No No last visit? Any new allergies or adverse reactions No No Had a fall/change in ADL's that may No No increase risk of falls Signs or symptoms of abuse and/or No No neglect since last visit Have you been in the hospital since your No No last visit? Has dressing in place as prescribed Yes No Has compression in place as prescribed Yes Yes Has offloadiing in place as prescribed Yes Yes Experienced any changes in pain level or No management Left Footwear Surgical Shoe Surgical Shoe Surgical Shoe with pressure with pressure with pressure relief insole relief insole relief insole Right Footwear Surgical Shoe Surgical Shoe Surgical Shoe with pressure with pressure with pressure relief insole relief insole relief insole Pain Scale: 0-10 Numeric Is Patient Pain Free? Yes Yes Yes WC - Nurse 1 - General Ulcer Measurement Start: 11/27/22 10:57 Freq: Status: Active Protocol: Activity Type Activity Date Activity User E-sign Co-sign Detail Recorded Client Recorded Date Recorded By Document 11/27/22 11:02 DL [id number] 11/27/22 11:21 DL Document 12/04/22 10:54 [facility] [id number] 12/04/22 11:18 [facility] Document 12/11/22 11:18 [id number] 12/11/22 11:19 11/27/22 12/04/22 12/11/22 11:02 10:54 11:18 Wound Center Nurse 1 #8 right lateral LE -Combined with other wound No -Current Size (cm) - Length 1 -Current Size (cm) - Width 0.8 -Current Size (cm) - Depth 0.2 -Total Square Cm 0.8 -Photo Taken No -Epithelialization Small 1-33% -Tunneling No -Undermining/Tunneling No -Circular Undermining No -Exudate Amt Medium -Exudate Type Serosanguineous -Wound Margin Distinct, Outline Attached -Granulation Amt Medium (34-66%) -Granulation Quality Red -Slough/Fibrin Yes -Necrosis Amt Medium (34-66%) -Necrotic Tissue Type Adherent Slough -Texture ([place]ul[place]-wound Skin Appearance) Assessed, Scarring -Moisture ([place]ul[place]-wound Skin Appearance) Assessed, Maceration,Dry/ Scaly -Color ([place]ul[place]-wound Skin Appearance) Assessed, Erythema -Temperature ([place]ul[place]-wound Skin No Abnormality Appearance) (Pt Warm) -Tenderness on Palpation (Yul[place]-wound No Skin Appearance) -Ulcer Cleansing Soap and Water -Foul Odor after Cleansing No -Anesthetic Used 4% Lidocaine Solution #9 right medial LE -Combined with other wound No No -Current Size (cm) - Length 8 4.5 -Current Size (cm) - Width 1.8 1.1 -Current Size (cm) - Depth 0.1 0.1 -Total Square Cm 14.4 4.95 -Date of Last Picture (Recall this 12/04/22 field) -Photo Taken No Yes -Epithelialization Medium 34-66% Small 1-33% -Tunneling No No -Undermining/Tunneling No No -Circular Undermining No No -Exudate Amt Medium Medium -Exudate Type Serosanguineous Serous -Wound Margin Distinct, Distinct, Outline Outline Attached Attached -Granulation Amt Large (67-100%) Medium (34-66%) -Granulation Quality Red [place] -Slough/Fibrin No Yes -Necrosis Amt Small (1-33%) -Texture (Yuliet-wound Skin Appearance) Assessed, Assessed, Excoriation, Scarring Scarring -Moisture ([place]ul[place]-wound Skin Appearance) Assessed,Dry/ Assessed, Scaly Maceration,Dry/ Scaly -Color ([place]ul[place]-wound Skin Appearance) Assessed Assessed -Temperature ([place]ul[place]-wound Skin No Abnormality No Abnormality Appearance) (Pt Warm) (Pt Warm) -Tenderness on Palpation (Yul[place]-wound No No Skin Appearance) -Ulcer Cleansing Soap and Water Soap and Water -Foul Odor after Cleansing No Yes, Due to Product Use -Anesthetic Used 4% Lidocaine 4% Lidocaine Solution Solution #6 R DORSAL foot -Combined with other wound No No -Current Size (cm) - Length 5 2 -Current Size (cm) - Width 1.5 5.5 -Current Size (cm) - Depth 0.1 0.1 -Total Square Cm 7.5 11.0 -Date of Last Picture (Recall this 12/04/22 field) -Photo Taken No Yes -Epithelialization None Present Small 1-33% -Tunneling No No -Undermining/Tunneling No No -Circular Undermining No No -Exudate Amt Medium Medium -Exudate Type Serous Serous -Wound Margin Distinct, Distinct, Outline Outline Attached Attached -Granulation Amt None Present (0 Small (1-33%) %) -Granulation Quality [place] -Slough/Fibrin Yes Yes -Necrosis Amt Large (67-100%) Large (67-100%) -Necrotic Tissue Type Adherent Slough Adherent Slough -Texture (Yuliet-wound Skin Appearance) Assessed, Assessed, Scarring Scarring -Moisture (Yul[place]-wound Skin Appearance) Assessed, Assessed, Maceration Maceration -Color ([place]ul[place]-wound Skin Appearance) Assessed, Assessed, Erythema Erythema -Temperature ([place]ul[place]-wound Skin No Abnormality No Abnormality Appearance) (Pt Warm) (Pt Warm) -Tenderness on Palpation ([place]ul[place]-wound No No Skin Appearance) -Ulcer Cleansing Soap and Water Soap and Water -Foul Odor after Cleansing No No -Anesthetic Used 4% Lidocaine 4% Lidocaine Solution Solution #5 L Med foot -Combined with other wound No No -Current Size (cm) - Length 0.1 2.5 -Current Size (cm) - Width 0.1 1.5 -Current Size (cm) - Depth 0.1 0.1 -Total Square Cm 0.01 3.75 -Date of Last Picture (Recall this 12/04/22 field) -Photo Taken Yes -Epithelialization Large 67-100% Small 1-33% -Tunneling No No -Undermining/Tunneling No No -Circular Undermining No No -Exudate Amt Small Small -Exudate Type Serous Serous -Wound Margin Distinct, Flat & Intact Outline Attached -Granulation Amt Large (67-100%) Medium (34-66%) -Granulation Quality Red [place] -Slough/Fibrin Yes -Necrosis Amt Medium (34-66%) -Necrotic Tissue Type Adherent Slough -Texture (Yuliet-wound Skin Appearance) Assessed, Assessed, Scarring Scarring -Moisture ([place]ul[place]-wound Skin Appearance) Assessed,Dry/ Assessed,Dry/ Scaly Scaly -Color (Yuliet-wound Skin Appearance) Assessed Assessed -Temperature ([place]ul[place]-wound Skin No Abnormality No Abnormality Appearance) (Pt Warm) (Pt Warm) -Tenderness on Palpation (Yuliet-wound No No Skin Appearance) -Ulcer Cleansing Soap and Water Soap and Water -Foul Odor after Cleansing No No -Anesthetic Used 4% Lidocaine 4% Lidocaine Solution Solution #4 L Lat Foot -Combined with other wound No No -Current Size (cm) - Length 1 0.1 -Current Size (cm) - Width 0.3 0.1 -Current Size (cm) - Depth 0.1 0.1 -Total Square Cm 0.3 0.01 -Date of Last Picture (Recall this 12/04/22 field) -Photo Taken Yes -Epithelialization Small 1-33% Large 67-100% -Tunneling No No -Undermining/Tunneling No No -Circular Undermining No No -Exudate Amt Small None Present -Exudate Type Serous -Wound Margin Distinct, Distinct, Outline Outline Attached Attached -Granulation Amt None Present (0 %) -Slough/Fibrin Yes -Necrosis Amt Large (67-100%) -Necrotic Tissue Type Adherent Slough -Texture (Yuliet-wound Skin Appearance) Assessed, Assessed, Scarring Scarring -Moisture (Yul[place]-wound Skin Appearance) Assessed Assessed -Color (Yuliet-wound Skin Appearance) Assessed Assessed -Temperature (Yul[place]-wound Skin No Abnormality No Abnormality Appearance) (Pt Warm) (Pt Warm) -Tenderness on Palpation (Yuliet-wound No No Skin Appearance) -Ulcer Cleansing Soap and Water Soap and Water -Foul Odor after Cleansing No No -Anesthetic Used 4% Lidocaine 4% Lidocaine Solution Solution #3 R Med Foot -Combined with other wound No No -Current Size (cm) - Length 5.4 1.5 -Current Size (cm) - Width 1 0.5 -Current Size (cm) - Depth 0.4 0.1 -Total Square Cm 5.4 0.75 -Date of Last Picture (Recall this 12/04/22 field) -Photo Taken Yes -Epithelialization Small 1-33% Small 1-33% -Tunneling No No -Undermining/Tunneling No No -Circular Undermining No No -Exudate Amt Small -Exudate Type Serous Serous -Wound Margin Thickened Distinct, Outline Attached -Granulation Amt Medium (34-66%) Small (1-33%) -Granulation Quality [place] -Slough/Fibrin Yes Yes -Necrosis Amt Medium (34-66%) Large (67-100%) -Necrotic Tissue Type Adherent Slough Adherent Slough -Texture (Yuliet-wound Skin Appearance) Assessed, Assessed, Scarring Scarring -Moisture (Yuliet-wound Skin Appearance) Assessed, Assessed, Maceration,Dry/ Maceration Scaly -Color (Yuliet-wound Skin Appearance) Assessed Assessed, Erythema -Temperature ([place]ul[place]-wound Skin No Abnormality No Abnormality Appearance) (Pt Warm) (Pt Warm) -Tenderness on Palpation (Yuliet-wound No No Skin Appearance) -Ulcer Cleansing Soap and Water Soap and Water -Foul Odor after Cleansing No No -Anesthetic Used 4% Lidocaine 4% Lidocaine Solution Solution #2 R Lat foot -Combined with other wound No No -Current Size (cm) - Length 0.1 6.5 -Current Size (cm) - Width 0.1 0.1 -Current Size (cm) - Depth 0.1 0.1 -Total Square Cm 0.01 0.65 -Date of Last Picture (Recall this 12/04/22 field) -Photo Taken Yes -Epithelialization Large 67-100% Small 1-33% -Tunneling No No -Undermining/Tunneling No No -Circular Undermining No No -Exudate Amt Small Medium -Exudate Type Serous Serous -Wound Margin Distinct, Distinct, Outline Outline Attached Attached -Granulation Amt Large (67-100%) Small (1-33%) -Granulation Quality Red [place] -Slough/Fibrin Yes Yes -Necrosis Amt Small (1-33%) Large (67-100%) -Necrotic Tissue Type Adherent Slough Adherent Slough -Texture (Yuliet-wound Skin Appearance) Assessed, Assessed, Scarring Scarring -Moisture (Yul[place]-wound Skin Appearance) Assessed Assessed, Maceration,Dry/ Scaly -Color ([place]ul[place]-wound Skin Appearance) Assessed Assessed -Temperature ([place]ul[place]-wound Skin No Abnormality No Abnormality Appearance) (Pt Warm) (Pt Warm) -Tenderness on Palpation (Yuliet-wound No No Skin Appearance) -Ulcer Cleansing Soap and Water Soap and Water -Foul Odor after Cleansing No No -Anesthetic Used 4% Lidocaine 4% Lidocaine Solution Solution Lower Limb Edema Present Yes Yes Yes Right Calf (cm) 31 34 32 Right Ankle (cm) 23.5 23.5 24 Left Calf (cm) 34.5 36 Left Ankle (cm) 23 22.5 WC - Nurse 2 - General Ulcer CM Notes Start: 11/27/22 10:57 Freq: Status: Active Protocol: Activity Type Activity Date Activity User E-sign Co-sign Detail Recorded Client Recorded Date Recorded By Document 11/27/22 11:40 MW [id number] 11/27/22 12:09 MW Document 12/04/22 11:32 MW [id number] 12/04/22 11:58 MW Document 12/11/22 11:32 MW Desktop 12/11/22 11:51 MW 11/27/22 12/04/22 12/11/22 11:40 11:32 11:32 Wound Center Nurse 2 #8 right lateral LE -Time 11:40 -Correct Patient Yes -Correct Side, Site, Position Yes -Correct Procedure Yes -Procedure Performed No -Post Debridement (cm) - Length 0 -Post Debridement (cm) - Width 0 -Total Square (Post) (cm) 0 -Tunneling No -Undermining/Tunneling No -Circular Undermining No -Wound/Ulcer Outcome Healed- Epithelialized #9 right medial LE -Time 11:41 11:37 11:34 -Correct Patient Yes Yes Yes -Correct Side, Site, Position Yes Yes Yes -Correct Procedure Yes Yes Yes -Procedure Performed Yes Yes No -Type of Procedure Debridement Debridement -Clinical Debridement Subcutaneous Subcutaneous -Tissue Removed Subcutaneous Subcutaneous -Post Debridement (cm) - Length 10.0 1.5 0 -Post Debridement (cm) - Width 3.0 0.7 0 -Post Debridement (cm) - Depth 0.1 0.1 0 -Total Square (Post) (cm) 30.00 1.05 0 -Area of Debridement (cm) - Length 10.0 1.5 -Area of Debridement (cm) - Width 3.0 0.7 -Total Square (Area) (cm) 30.00 1.05 -Tunneling No No No -Undermining/Tunneling No No No -Circular Undermining No No No -Wound/Ulcer Outcome Not Healed Not Healed Healed- Epithelialized -Ulcer Cleansing Rinsed/ Rinsed/ Irrigated with Irrigated with Saline Saline -Foul Odor after Cleansing No No -Bioengineered Tissue No No -Bleeding Controlled with Pressure Pressure -Treatment Response Procedure Tolerated Well -Offloading No -Debridement - Subq, 1st 20sq cm Yes Yes -Debridement, SubQ, ea addt'l 20sq cm 3 3 or part thereof #10 right posterior LE -Time 11:33 -Correct Patient Yes -Correct Side, Site, Position Yes -Procedure Performed Yes -Type of Procedure Debridement -Clinical Debridement Subcutaneous -Tissue Removed Subcutaneous -Post Debridement (cm) - Length 11.0 -Post Debridement (cm) - Width 4.0 -Post Debridement (cm) - Depth 0.1 -Total Square (Post) (cm) 44.00 -Area of Debridement (cm) - Length 11.0 -Area of Debridement (cm) - Width 4.0 -Total Square (Area) (cm) 44.00 -Tunneling No -Undermining/Tunneling No -Circular Undermining No -Wound/Ulcer Outcome Not Healed -Ulcer Cleansing Rinsed/ Irrigated with Saline -Foul Odor after Cleansing No -Bioengineered Tissue No -Bleeding Controlled with Pressure -Treatment Response Procedure Tolerated Well -Offloading No -Debridement - Subq, 1st 20sq cm No #6 R DORSAL foot -Time 11:41 11:39 11:34 -Correct Patient Yes Yes Yes -Correct Side, Site, Position Yes Yes Yes -Correct Procedure Yes Yes Yes -Procedure Performed Yes Yes Yes -Type of Procedure Debridement Debridement Debridement -Clinical Debridement Subcutaneous Subcutaneous Subcutaneous -Tissue Removed Subcutaneous Epidermis, Subcutaneous Subcutaneous -Post Debridement (cm) - Length 1.0 1.5 1.5 -Post Debridement (cm) - Width 0.8 5.5 5.2 -Post Debridement (cm) - Depth 0.1 0.1 0.1 -Total Square (Post) (cm) 0.80 8.25 7.80 -Area of Debridement (cm) - Length 1.0 1.5 1.5 -Area of Debridement (cm) - Width 0.8 5.5 5.2 -Total Square (Area) (cm) 0.80 8.25 7.80 -Tunneling No No No -Undermining/Tunneling No No No -Circular Undermining No No No -Wound/Ulcer Outcome Not Healed Not Healed Not Healed -Ulcer Cleansing Rinsed/ Rinsed/ Rinsed/ Irrigated with Irrigated with Irrigated with Saline Saline Saline -Foul Odor after Cleansing No No No -Bioengineered Tissue No No No -Bleeding Controlled with Pressure Pressure Pressure -Treatment Response Procedure Procedure Procedure Tolerated Well Tolerated Well Tolerated Well -Offloading No No No -Debridement - Subq, 1st 20sq cm No No Yes -Debridement, SubQ, ea addt'l 20sq cm 5 or part thereof #5 L Med foot -Time 11:41 11:53 11:35 -Correct Patient Yes Yes Yes -Correct Side, Site, Position Yes Yes Yes -Correct Procedure Yes Yes Yes -Procedure Performed Yes Yes Yes -Type of Procedure Debridement Debridement Debridement -Clinical Debridement Subcutaneous Subcutaneous Subcutaneous -Tissue Removed Subcutaneous Subcutaneous Subcutaneous -Post Debridement (cm) - Length 1.0 1.3 1.4 -Post Debridement (cm) - Width 2.0 3.0 1.5 -Post Debridement (cm) - Depth 0.1 0.2 0.2 -Total Square (Post) (cm) 2.00 3.90 2.10 -Area of Debridement (cm) - Length 1.0 1.3 1.4 -Area of Debridement (cm) - Width 2.0 3.0 1.5 -Total Square (Area) (cm) 2.00 3.90 2.10 -Tunneling No No No -Undermining/Tunneling No No No -Circular Undermining No No No -Wound/Ulcer Outcome Not Healed Not Healed Not Healed -Ulcer Cleansing Rinsed/ Rinsed/ Rinsed/ Irrigated with Irrigated with Irrigated with Saline Saline Saline -Foul Odor after Cleansing No No No -Bioengineered Tissue No No No -Bleeding Controlled with Pressure Pressure Pressure -Treatment Response Procedure Procedure Procedure Tolerated Well Tolerated Well Tolerated Well -Offloading No No No -Debridement - Subq, 1st 20sq cm No No No #4 L Lat Foot -Time 11:41 11:54 11:35 -Correct Patient Yes Yes Yes -Correct Side, Site, Position Yes Yes Yes -Correct Procedure Yes Yes Yes -Procedure Performed Yes Yes Yes -Type of Procedure Debridement Debridement Debridement -Clinical Debridement Subcutaneous Subcutaneous Subcutaneous -Tissue Removed Subcutaneous Subcutaneous Subcutaneous -Post Debridement (cm) - Length 1.6 1.0 1.0 -Post Debridement (cm) - Width 0.4 0.3 0.3 -Post Debridement (cm) - Depth 0.2 0.2 0.2 -Total Square (Post) (cm) 0.64 0.30 0.30 -Area of Debridement (cm) - Length 1.6 1.0 1.0 -Area of Debridement (cm) - Width 0.4 0.3 0.3 -Total Square (Area) (cm) 0.64 0.30 0.30 -Tunneling No No No -Undermining/Tunneling No No No -Circular Undermining No No No -Wound/Ulcer Outcome Not Healed Not Healed Not Healed -Ulcer Cleansing Rinsed/ Rinsed/ Rinsed/ Irrigated with Irrigated with Irrigated with Saline Saline Saline -Foul Odor after Cleansing No No No -Bioengineered Tissue No No No -Bleeding Controlled with Pressure Pressure Pressure -Treatment Response Procedure Procedure Procedure Tolerated Well Tolerated Well Tolerated Well -Offloading No No No -Debridement - Subq, 1st 20sq cm No No No #3 R Med Foot -Time 11: 11:40 -Correct Patient Yes Yes Yes -Correct Side, Site, Position Yes Yes Yes -Correct Procedure Yes Yes Yes -Procedure Performed Yes Yes Yes -Type of Procedure Debridement Debridement Debridement -Clinical Debridement Subcutaneous Subcutaneous Subcutaneous -Tissue Removed Subcutaneous Epidermis, Subcutaneous Subcutaneous -Post Debridement (cm) - Length 2.0 2.0 2.0 -Post Debridement (cm) - Width 8.5 9.0 8.5 -Post Debridement (cm) - Depth 0.2 0.3 0.1 -Total Square (Post) (cm) 17.00 18.00 17.00 -Area of Debridement (cm) - Length 2.0 2.0 2.0 -Area of Debridement (cm) - Width 8.5 9.0 8.5 -Total Square (Area) (cm) 17.00 18.00 17.00 -Tunneling No No No -Undermining/Tunneling No No No -Circular Undermining No No No -Wound/Ulcer Outcome Not Healed Not Healed Not Healed -Ulcer Cleansing Rinsed/ Rinsed/ Rinsed/ Irrigated with Irrigated with Irrigated with Saline Saline Saline -Foul Odor after Cleansing No No No -Bioengineered Tissue No No No -Bleeding Controlled with Pressure Pressure Pressure -Treatment Response Procedure Procedure Procedure Tolerated Well Tolerated Well Tolerated Well -Offloading No No No -Debridement - Subq, 1st 20sq cm No No No #2 R Lat foot -Time 11: 11:41 -Correct Patient Yes Yes Yes -Correct Side, Site, Position Yes Yes Yes -Correct Procedure Yes Yes Yes -Procedure Performed Yes Yes Yes -Type of Procedure Debridement Debridement Debridement -Clinical Debridement Subcutaneous Subcutaneous Subcutaneous -Tissue Removed Subcutaneous Subcutaneous Subcutaneous -Post Debridement (cm) - Length 4.0 5.0 4.8 -Post Debridement (cm) - Width 6.0 7.0 8.0 -Post Debridement (cm) - Depth 0.1 0.2 0.1 -Total Square (Post) (cm) 24.00 35.00 38.40 -Area of Debridement (cm) - Length 4.0 5.0 4.8 -Area of Debridement (cm) - Width 6.0 7.0 8.0 -Total Square (Area) (cm) 24.00 35.00 38.40 -Tunneling No No No -Undermining/Tunneling No No No -Circular Undermining No No No -Wound/Ulcer Outcome Not Healed Not Healed Not Healed -Ulcer Cleansing Rinsed/ Rinsed/ Rinsed/ Irrigated with Irrigated with Irrigated with Saline Saline Saline -Foul Odor after Cleansing No No No -Bioengineered Tissue No No No -Bleeding Controlled with Pressure Pressure Pressure -Treatment Response Procedure Procedure Procedure Tolerated Well Tolerated Well Tolerated Well -Offloading No No No -Debridement - Subq, 1st 20sq cm No No No Pain Scale: 0-10 Numeric Is Patient Pain Free? Yes Yes Yes WC - Nurse 3 - General Ulcer D/C NN Start: 11/27/22 10:57 Freq: Status: Active Protocol: Activity Type Activity Date Activity User E-sign Co-sign Detail Recorded Client Recorded Date Recorded By Document 12/04/22 12:03 BMF [id number] 12/04/22 12:06 BMF Edit Result 12/04/22 12:03 BMF (1) [id number] 12/04/22 12:18 BMF Document 12/11/22 12:14 AK [id number] 12/11/22 12:20 AK (1) #9 right medial LE - [place] 1 => 2 #5 L Med foot - Promogran 1 => 2 12/04/22 12/11/22 12:03 12:14 Wound Care Center Nurse 3 #9 right medial LE -Ulcer Cleansing Soap and Water -Foul Odor after Cleansing No -Primary Dressing Applied [place] -Other Dressing ABD, DRSG PER DL LIFT BUILDER WHOLE -Primary Dressing Covered/Secured with Dry Gauze & Roll Gauze, Secured with Tape -[place] 2 #10 right posterior LE -Ulcer Cleansing Rinsed/ Irrigated with Saline -Foul Odor after Cleansing No -Negative Pressure Wound Therapy N/A -Primary Dressing Applied [place] -Other Dressing ABD -Primary Dressing Covered/Secured with Dry Gauze & Roll Gauze, Secured with Tape -[place] 1 #6 R DORSAL foot -Ulcer Cleansing Soap and Water Soap and Water -Foul Odor after Cleansing No No -Negative Pressure Wound Therapy N/A -Primary Dressing Applied [place] -Other Dressing ABD; DRSG PER DL LIFT BUILDER WHOLE -Primary Dressing Covered/Secured with Dry Gauze & Dry Gauze & Roll Gauze, Roll Gauze, Secured with Secured with Tape Tape -Silvercel 0 1 #5 L Med foot -Ulcer Cleansing Soap and Water Rinsed/ Irrigated with Saline -Foul Odor after Cleansing No -Negative Pressure Wound Therapy N/A -Primary Dressing Applied NonAdherent Contact Layer, Promogran -Other Dressing ABD; DRSG PER DL LIFT BUILDER WHOLE -Primary Dressing Covered/Secured with Dry Gauze & Roll Gauze, Secured with Tape -Promogran 2 -Promogran Joan Matter 1 #4 L Lat Foot -Ulcer Cleansing Soap and Water -Foul Odor after Cleansing No -Primary Dressing Applied NonAdherent Contact Layer, Promogran -Other Dressing ABD; DRSG PER DL LIFT BUILDER WHOLE -Promogran 0 #3 R Med Foot -Ulcer Cleansing Soap and Water Soap and Water -Foul Odor after Cleansing No No -Negative Pressure Wound Therapy N/A -Primary Dressing Applied Silvercel -Other Dressing ABD; PER DL LIFT BUILDER WHOLE silvercel -Primary Dressing Covered/Secured with Dry Gauze & Dry Gauze & Roll Gauze, Roll Gauze, Secured with Secured with Tape Tape -Promogran Joan Matter 1 -Silvercel 0 #2 R Lat foot -Ulcer Cleansing Soap and Water -Foul Odor after Cleansing No No -Negative Pressure Wound Therapy N/A -Primary Dressing Applied Silvercel -Other Dressing ABD; DRSG PER DL LIFT BUILDER WHOLE -Primary Dressing Covered/Secured with Dry Gauze & Roll Gauze, Secured with Tape -Silvercel 0 BLE -Lotion applied to leg before Yes compression wrap -Compression Wrap Cole Wrap Cole Wrap Treatment Response Procedure Tolerated Well Pain Scale: 0-10 Numeric Is Patient Pain Free? Yes No WC - Visit Discharge Discharge Condition Stable Stable Ambulatory Status Stretcher Wheelchair Transportation TRANSPORT Private Auto Medication Reconcilliation completed & Yes provided to patient/care provider Clinical Summary of Care Provided Yes Facility Type Residential Care Facility Additional Wound Wound debrided: Left medial ankle/lower extremity Type of Debridement: Excisional debridement Anesthesia Used: 5% Lidocaine Gel Depth: Down to and including healthy tissue and in the subcutaneous layer Percentage of wound debrided: 100 Instrument Used: 5mm curette, #15 blade and Forceps Tissue Removed: Slough and devitalized tissue Severity: Fat Layer Exposed Amount of bleeding with debridement: Mild Bleeding Controlled with: Pressure Patient tolerated procedure: Patient tolerated procedure well Additional Wound Wound debrided: Right medial ankle/lower extremity Type of Debridement: Excisional debridement Anesthesia Used: 5% Lidocaine Gel Depth: Down to and including healthy tissue and in the subcutaneous layer Percentage of wound debrided: 100 Instrument Used: 5mm curette, #15 blade and Forceps Tissue Removed: Slough and devitalized tissue Severity: Fat Layer Exposed Amount of bleeding with debridement: Mild Bleeding Controlled with: Pressure Patient tolerated procedure: Patient tolerated procedure well Additional Wound Wound debrided: Right Posterior Leg ( Cluster ) Type of Debridement: Excisional debridement Anesthesia Used: 4% Lidocaine Solution Depth: Down to and including healthy tissue and in the subcutaneous layer Percentage of wound debrided: 100 Instrument Used: 7mm curette Tissue Removed: Slough and devitalized tissue Severity: Fat Layer Exposed Amount of bleeding with debridement: Mild Bleeding Controlled with: Pressure Patient tolerated procedure: Patient tolerated procedure well Additional Wound Wound debrided: Right Dorsal Foot Type of Debridement: Excisional debridement Anesthesia Used: 4% Lidocaine Solution Depth: Down to and including healthy tissue and in the subcutaneous layer Percentage of wound debrided: 100 Instrument Used: 7mm curette Tissue Removed: Slough and devitalized tissue Severity: Fat Layer Exposed Amount of bleeding with debridement: Mild Bleeding Controlled with: Pressure Patient tolerated procedure: Patient tolerated procedure well Additional Wound Wound debrided: Right Lateral Ankle/Foot Type of Debridement: Excisional debridement Anesthesia Used: 4% Lidocaine Solution Depth: Down to and including healthy tissue and in the subcutaneous layer Percentage of wound debrided: 100 Instrument Used: 5mm curette Tissue Removed: Slough and devitalized tissue Severity: Fat Layer Exposed Amount of bleeding with debridement: Mild Bleeding Controlled with: Pressure Patient tolerated procedure: Patient tolerated procedure well Assessment/Plan Assessment/Plan (1) Ulcer of right lower extremity with fat layer exposed: CODE(S): L97.912 - Non-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 (2) Ulcer of left lower extremity with fat layer exposed: CODE(S): L97.922 - Non-pressure chronic ulcer of unspecified part of left lower leg with fat layer exposed (3) Ulcer of right heel and midfoot with fat layer exposed: CODE(S): L97.412 - Non-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 New right posterior lower extremity ulceration from blistering. Continue silver cell to right foot ulcers and cover with ABD Change twice daily or more depending on drainage. Moistened Promogran and Adaptic to left foot ulcers. Cole wrap to both extremities for edema management. Leg elevation, optimize protein and nutrition. Their questions were answered and they were advised to let us know if they have any further questions or concerns. Follow-up in 1 week or sooner if needed. This note was generated with [employer] dictation software. It may contain incorrect words, spelling, and punctuation that were not noted in checking the note before signing.
[2022-12-18 10:59] VITALS: BP 79/40; PULSE 58; RESP 20; TEMP 35.4
--- NOTE | 2022-12-18 11:39 | PN.PCM_ITS ---
History of Present Illness Date of Service: 12/18/22 Chief Complaint: Nonhealing bilateral lower extremity ulcers History of Wound: Mr Wilson is an 82-year-old who [facility] to nonhealing bilateral lower extremity ulcers. Has had recurrent ulcerations for over 10 years with most recent episode being more severe late last year. He was seen at the emergency room and subsequently advised to follow-up at a wound center which he did at [facility] without any significant improvement. A month ago, he was hospitalized for sepsis secondary to bilateral lower extremity ulcers. Following his admission and hospital stay, he did not return to the prior wound center. He reports a lot of drainage from his ulcers. They have been inconsistent dressing changes at his facility. He feels well otherwise and denies chills, fever. Currently has a PICC line and he is on IV vancomycin and cephalosporin. Progress of Wound: No new concerns at this time. For the most part, less maceration on the right however, increased edema on the left. Objective Data Objective Data Vital Signs: Vital Signs Temp Pulse Resp BP O2 Del Method 95.7 F L 58 L 20 H 79/40 L Room Air 12/18/22 10:59 12/18/22 10:59 12/18/22 10:59 12/18/22 10:59 12/04/22 10:54 Oxygen Delivery Method Room Air Charges/Coding Procedures Integumentary 111xxx-113xx: [id number] Samina subq tissue 20 sq cm/< Add On Codes: 55904 Samina subq tissue add-on (x3. Additional square centimeter debrided, please refer to clinical note.) Physical Exam Const alert and no apparent distress General Appearance: cooperative and comfortable HEENT normocephalic, head/scalp atraumatic and hearing grossly normal bilaterally Head and Scalp: normal to inspection, normocephalic and atraumatic Eyes EOMs intact bilaterally Neck full ROM General: normal visual inspection Resp normal respiratory effort Effort and Inspection: able to speak in complete sentences Extremity General Extremity: deformity Skin Wounds: wounds noted Neuro CN's II-XII intact bilaterally, moves all extremities and no focal motor deficits Psych mental status grossly normal Appearance: grossly normal Attitude: calm Activity / Motor Behavior: appropriate eye contact Debridement Note Debridement Note Wound debrided: Left Lateral ankle/Lower extremity Type of Debridement: Excisional debridement Anesthesia Used: 5% Lidocaine Gel Depth: Down to and including healthy tissue and in the subcutaneous layer Percentage of wound debrided: 100 Instrument Used: 5mm curette, #15 blade and Forceps Tissue Removed: Slough and devitalized tissue Severity: Fat Layer Exposed Amount of bleeding with debridement: Mild Bleeding Controlled with: Pressure Patient tolerated procedure: Patient tolerated procedure well Post-Debridement Measurements and Additional Note: Post-Debridement Measurements/Treatment - Nurse 1 - General Ulcer Assessment Start: 11/27/22 10:57 Freq: Status: Active Protocol: MARTA Activity Type Activity Date Activity User E-sign Co-sign Detail Recorded Client Recorded Date Recorded By Document 11/27/22 11:02 DL [id number] 11/27/22 11:21 DL Document 12/04/22 10:54 [facility] [id number] 12/04/22 11:18 [facility] Document 12/11/22 11:18 [id number] 12/11/22 11:19 Document 12/18/22 10:59 DL [id number] 12/18/22 11:09 DL 11/27/22 12/04/22 12/11/22 11:02 10:54 11:18 - Today's Visit Information Type of service Follow-up Visit Follow-up Visit Follow-up Visit (Physician/LINT CLEANER (Physician/LINT CLEANER (Physician/LINT CLEANER ) ) ) Arrival Mode Wheelchair Wheelchair Wheelchair Transfer Assistance Other Manual Transfer Assist (Other) x1 2 Accompanied by TRANSPORT caregiver CAREGIVER FROM [facility] Patient Identification Verified (Name & Yes Yes Yes ) Patient Requires Transmission-Based No No No Precautions Finger Stick Blood Sugar(mg/dl) (if not checked indicated): Blood Sugar Stated by Patient Vital Signs Temperature (97.8 F-99.1 F) 97.1 F L 97.7 F L 97.0 F L Temperature Source Temporal Temporal Temporal Pulse Rate (60-100) 74 64 68 Pulse Location Monitor Monitor Monitor Respiratory Rate (12-18) 20 H 16 18 Respiratory rate source Observation Observation Observation Oxygen Delivery Method Room Air Blood Pressure (90/60-120/80) 110/47 L 96/43 L 109/49 L Blood Pressure Mean (mm Hg) 68 60 69 Source Monitor Monitor Monitor Position Sitting Sitting Blood Pressure Location Right Arm Left Arm History Since Last Visit- (Skip if this is Patient's initial visit) Have you changed medications since your No No last visit? Any new allergies or adverse reactions No No Had a fall/change in ADL's that may No No increase risk of falls Signs or symptoms of abuse and/or No No neglect since last visit Have you been in the hospital since your No No last visit? Has dressing in place as prescribed Yes No Has compression in place as prescribed Yes Yes Has offloadiing in place as prescribed Yes Yes Experienced any changes in pain level or No management Left Footwear Surgical Shoe Surgical Shoe Surgical Shoe with pressure with pressure with pressure relief insole relief insole relief insole Right Footwear Surgical Shoe Surgical Shoe Surgical Shoe with pressure with pressure with pressure relief insole relief insole relief insole Pain Scale: 0-10 Numeric Is Patient Pain Free? Yes Yes Yes 12/18/22 10:59 WC - Today's Visit Information Type of service Follow-up Visit (Physician/LINT CLEANER ) Arrival Mode Wheelchair Transfer Assistance Manual Transfer Assist (Other) Accompanied by Patient Identification Verified (Name & Yes ) Patient Requires Transmission-Based No Precautions Finger Stick Blood Sugar(mg/dl) (if didnt check indicated): Blood Sugar Stated by Patient Vital Signs Temperature (97.8 F-99.1 F) 95.7 F L Temperature Source Temporal Pulse Rate (60-100) 58 L Pulse Location Monitor Respiratory Rate (12-18) 20 H Respiratory rate source Observation Oxygen Delivery Method Blood Pressure (90/60-120/80) 79/40 L Blood Pressure Mean (mm Hg) 53 Source Monitor Position Blood Pressure Location History Since Last Visit- (Skip if this is Patient's initial visit) Have you changed medications since your No last visit? Any new allergies or adverse reactions No Had a fall/change in ADL's that may No increase risk of falls Signs or symptoms of abuse and/or No neglect since last visit Have you been in the hospital since your No last visit? Has dressing in place as prescribed Yes Has compression in place as prescribed Yes Has offloadiing in place as prescribed Yes Experienced any changes in pain level or No management Left Footwear Right Footwear Pain Scale: 0-10 Numeric Is Patient Pain Free? Yes - Nurse 1 - General Ulcer Measurement Start: 11/27/22 10:57 Freq: Status: Active Protocol: Activity Type Activity Date Activity User E-sign Co-sign Detail Recorded Client Recorded Date Recorded By Document 11/27/22 11:02 DL [id number] 11/27/22 11:21 DL Document 12/04/22 10:54 [facility] [id number] 12/04/22 11:18 BM Document 12/11/22 11:18 JF [id number] 12/11/22 11:19 Document 12/18/22 10:59 DL [id number] 12/18/22 11:09 DL 11/27/22 12/04/22 12/11/22 11:02 10:54 11:18 Wound Center Nurse 1 #8 right lateral LE -Combined with other wound No -Current Size (cm) - Length 1 -Current Size (cm) - Width 0.8 -Current Size (cm) - Depth 0.2 -Total Square Cm 0.8 -Photo Taken No -Epithelialization Small 1-33% -Tunneling No -Undermining/Tunneling No -Circular Undermining No -Exudate Amt Medium -Exudate Type Serosanguineous -Wound Margin Distinct, Outline Attached -Granulation Amt Medium (34-66%) -Granulation Quality Red -Slough/Fibrin Yes -Necrosis Amt Medium (34-66%) -Necrotic Tissue Type Adherent Slough -Texture (Yuliet-wound Skin Appearance) Assessed, Scarring -Moisture (Yuliet-wound Skin Appearance) Assessed, Maceration,Dry/ Scaly -Color (Yuliet-wound Skin Appearance) Assessed, Erythema -Temperature (Yuliet-wound Skin No Abnormality Appearance) (Pt Warm) -Tenderness on Palpation (Yuliet-wound No Skin Appearance) -Ulcer Cleansing Soap and Water -Foul Odor after Cleansing No -Anesthetic Used 4% Lidocaine Solution #9 right medial LE -Combined with other wound No No -Current Size (cm) - Length 8 4.5 -Current Size (cm) - Width 1.8 1.1 -Current Size (cm) - Depth 0.1 0.1 -Total Square Cm 14.4 4.95 -Date of Last Picture (Recall this 12/04/22 field) -Photo Taken No Yes -Epithelialization Medium 34-66% Small 1-33% -Tunneling No No -Undermining/Tunneling No No -Circular Undermining No No -Exudate Amt Medium Medium -Exudate Type Serosanguineous Serous -Wound Margin Distinct, Distinct, Outline Outline Attached Attached -Granulation Amt Large (67-100%) Medium (34-66%) -Granulation Quality [place] -Slough/Fibrin No Yes -Necrosis Amt Small (1-33%) -Texture (Yuliet-wound Skin Appearance) Assessed, Assessed, Excoriation, Scarring Scarring -Moisture (Yuliet-wound Skin Appearance) Assessed,Dry/ Assessed, Scaly Maceration,Dry/ Scaly -Color (Yuliet-wound Skin Appearance) Assessed Assessed -Temperature (Yuliet-wound Skin No Abnormality No Abnormality Appearance) (Pt Warm) (Pt Warm) -Tenderness on Palpation (Yuliet-wound No No Skin Appearance) -Ulcer Cleansing Soap and Water Soap and Water -Foul Odor after Cleansing No Yes, Due to Product Use -Anesthetic Used 4% Lidocaine 4% Lidocaine Solution Solution #10 right posterior LE -Current Size (cm) - Length -Current Size (cm) - Width -Current Size (cm) - Depth -Total Square Cm -Exudate Amt -Exudate Type -Wound Margin -Granulation Amt -Granulation Quality -Necrosis Amt -Structure Exposed -Texture (Yuliet-wound Skin Appearance) -Moisture (Yuliet-wound Skin Appearance) -Color (Yuliet-wound Skin Appearance) -Temperature (Yuliet-wound Skin Appearance) -Tenderness on Palpation (Yuliet-wound Skin Appearance) -Ulcer Cleansing -Foul Odor after Cleansing -Anesthetic Used #6 R DORSAL foot -Combined with other wound No No -Current Size (cm) - Length 5 2 -Current Size (cm) - Width 1.5 5.5 -Current Size (cm) - Depth 0.1 0.1 -Total Square Cm 7.5 11.0 -Date of Last Picture (Recall this 12/04/22 field) -Photo Taken No Yes -Epithelialization None Present Small 1-33% -Tunneling No No -Undermining/Tunneling No No -Circular Undermining No No -Exudate Amt Medium Medium -Exudate Type Serous Serous -Wound Margin Distinct, Distinct, Outline Outline Attached Attached -Granulation Amt None Present (0 Small (1-33%) %) -Granulation Quality [place] -Slough/Fibrin Yes Yes -Necrosis Amt Large (67-100%) Large (67-100%) -Necrotic Tissue Type Adherent Slough Adherent Slough -Structure Exposed -Texture (Yuliet-wound Skin Appearance) Assessed, Assessed, Scarring Scarring -Moisture (Yuliet-wound Skin Appearance) Assessed, Assessed, Maceration Maceration -Color (Yuliet-wound Skin Appearance) Assessed, Assessed, Erythema Erythema -Temperature (Yuliet-wound Skin No Abnormality No Abnormality Appearance) (Pt Warm) (Pt Warm) -Tenderness on Palpation (Yuliet-wound No No Skin Appearance) -Ulcer Cleansing Soap and Water Soap and Water -Foul Odor after Cleansing No No -Anesthetic Used 4% Lidocaine 4% Lidocaine Solution Solution #5 L Med foot -Combined with other wound No No -Current Size (cm) - Length 0.1 2.5 -Current Size (cm) - Width 0.1 1.5 -Current Size (cm) - Depth 0.1 0.1 -Total Square Cm 0.01 3.75 -Date of Last Picture (Recall this 12/04/22 field) -Photo Taken Yes -Epithelialization Large 67-100% Small 1-33% -Tunneling No No -Undermining/Tunneling No No -Circular Undermining No No -Exudate Amt Small Small -Exudate Type Serous Serous -Wound Margin Distinct, Flat & Intact Outline Attached -Granulation Amt Large (67-100%) Medium (34-66%) -Granulation Quality [place] -Slough/Fibrin Yes -Necrosis Amt Medium (34-66%) -Necrotic Tissue Type Adherent Slough -Structure Exposed -Texture (Yuliet-wound Skin Appearance) Assessed, Assessed, Scarring Scarring -Moisture (Yuliet-wound Skin Appearance) Assessed,Dry/ Assessed,Dry/ Scaly Scaly -Color (Yuliet-wound Skin Appearance) Assessed Assessed -Temperature (Yuliet-wound Skin No Abnormality No Abnormality Appearance) (Pt Warm) (Pt Warm) -Tenderness on Palpation (Yuliet-wound No No Skin Appearance) -Ulcer Cleansing Soap and Water Soap and Water -Foul Odor after Cleansing No No -Anesthetic Used 4% Lidocaine 4% Lidocaine Solution Solution #4 L Lat Foot -Combined with other wound No No -Current Size (cm) - Length 1 0.1 -Current Size (cm) - Width 0.3 0.1 -Current Size (cm) - Depth 0.1 0.1 -Total Square Cm 0.3 0.01 -Date of Last Picture (Recall this 12/04/22 field) -Photo Taken Yes -Epithelialization Small 1-33% Large 67-100% -Tunneling No No -Undermining/Tunneling No No -Circular Undermining No No -Exudate Amt Small None Present -Exudate Type Serous -Wound Margin Distinct, Distinct, Outline Outline Attached Attached -Granulation Amt None Present (0 %) -Granulation Quality -Slough/Fibrin Yes -Necrosis Amt Large (67-100%) -Necrotic Tissue Type Adherent Slough -Structure Exposed -Texture (Yuliet-wound Skin Appearance) Assessed, Assessed, Scarring Scarring -Moisture (Yuliet-wound Skin Appearance) Assessed Assessed -Color (Yuliet-wound Skin Appearance) Assessed Assessed -Temperature (Yuliet-wound Skin No Abnormality No Abnormality Appearance) (Pt Warm) (Pt Warm) -Tenderness on Palpation (Yuliet-wound No No Skin Appearance) -Ulcer Cleansing Soap and Water Soap and Water -Foul Odor after Cleansing No No -Anesthetic Used 4% Lidocaine 4% Lidocaine Solution Solution #3 R Med Foot -Combined with other wound No No -Current Size (cm) - Length 5.4 1.5 -Current Size (cm) - Width 1 0.5 -Current Size (cm) - Depth 0.4 0.1 -Total Square Cm 5.4 0.75 -Date of Last Picture (Recall this 12/04/22 field) -Photo Taken Yes -Epithelialization Small 1-33% Small 1-33% -Tunneling No No -Undermining/Tunneling No No -Circular Undermining No No -Exudate Amt Small -Exudate Type Serous Serous -Wound Margin Thickened Distinct, Outline Attached -Granulation Amt Medium (34-66%) Small (1-33%) -Granulation Quality [place] -Slough/Fibrin Yes Yes -Necrosis Amt Medium (34-66%) Large (67-100%) -Necrotic Tissue Type Adherent Slough Adherent Slough -Structure Exposed -Texture (Yuliet-wound Skin Appearance) Assessed, Assessed, Scarring Scarring -Moisture (Yuliet-wound Skin Appearance) Assessed, Assessed, Maceration,Dry/ Maceration Scaly -Color (Yuliet-wound Skin Appearance) Assessed Assessed, Erythema -Temperature (Yuliet-wound Skin No Abnormality No Abnormality Appearance) (Pt Warm) (Pt Warm) -Tenderness on Palpation (Yuliet-wound No No Skin Appearance) -Ulcer Cleansing Soap and Water Soap and Water -Foul Odor after Cleansing No No -Anesthetic Used 4% Lidocaine 4% Lidocaine Solution Solution #2 R Lat foot -Combined with other wound No No -Current Size (cm) - Length 0.1 6.5 -Current Size (cm) - Width 0.1 0.1 -Current Size (cm) - Depth 0.1 0.1 -Total Square Cm 0.01 0.65 -Date of Last Picture (Recall this 12/04/22 field) -Photo Taken Yes -Epithelialization Large 67-100% Small 1-33% -Tunneling No No -Undermining/Tunneling No No -Circular Undermining No No -Exudate Amt Small Medium -Exudate Type Serous Serous -Wound Margin Distinct, Distinct, Outline Outline Attached Attached -Granulation Amt Large (67-100%) Small (1-33%) -Granulation Quality [place] -Slough/Fibrin Yes Yes -Necrosis Amt Small (1-33%) Large (67-100%) -Necrotic Tissue Type Adherent Slough Adherent Slough -Structure Exposed -Texture (Yuliet-wound Skin Appearance) Assessed, Assessed, Scarring Scarring -Moisture (Yuliet-wound Skin Appearance) Assessed Assessed, Maceration,Dry/ Scaly -Color (Yuliet-wound Skin Appearance) Assessed Assessed -Temperature (Yuliet-wound Skin No Abnormality No Abnormality Appearance) (Pt Warm) (Pt Warm) -Tenderness on Palpation (Yuliet-wound No No Skin Appearance) -Ulcer Cleansing Soap and Water Soap and Water -Foul Odor after Cleansing No No -Anesthetic Used 4% Lidocaine 4% Lidocaine Solution Solution Lower Limb Edema Present Yes Yes Yes Right Calf (cm) 31 34 32 Right Ankle (cm) 23.5 23.5 24 Left Calf (cm) 34.5 36 Left Ankle (cm) 23 22.5 12/18/22 10:59 Wound Center Nurse 1 #8 right lateral LE -Combined with other wound -Current Size (cm) - Length -Current Size (cm) - Width -Current Size (cm) - Depth -Total Square Cm -Photo Taken -Epithelialization -Tunneling -Undermining/Tunneling -Circular Undermining -Exudate Amt -Exudate Type -Wound Margin -Granulation Amt -Granulation Quality -Slough/Fibrin -Necrosis Amt -Necrotic Tissue Type -Texture (Yuliet-wound Skin Appearance) -Moisture (Yuliet-wound Skin Appearance) -Color (Yuliet-wound Skin Appearance) -Temperature (Yuliet-wound Skin Appearance) -Tenderness on Palpation (Yuliet-wound Skin Appearance) -Ulcer Cleansing -Foul Odor after Cleansing -Anesthetic Used #9 right medial LE -Combined with other wound -Current Size (cm) - Length -Current Size (cm) - Width -Current Size (cm) - Depth -Total Square Cm -Date of Last Picture (Recall this field) -Photo Taken -Epithelialization -Tunneling -Undermining/Tunneling -Circular Undermining -Exudate Amt -Exudate Type -Wound Margin -Granulation Amt -Granulation Quality -Slough/Fibrin -Necrosis Amt -Texture (Yuliet-wound Skin Appearance) -Moisture (Yuliet-wound Skin Appearance) -Color (Yuliet-wound Skin Appearance) -Temperature (Yuliet-wound Skin Appearance) -Tenderness on Palpation (Yuliet-wound Skin Appearance) -Ulcer Cleansing -Foul Odor after Cleansing -Anesthetic Used #10 right posterior LE -Current Size (cm) - Length 1.9 -Current Size (cm) - Width 2 -Current Size (cm) - Depth 0.1 -Total Square Cm 3.8 -Exudate Amt Medium -Exudate Type Serosanguineous -Wound Margin Distinct, Outline Attached -Granulation Amt Large (67-100%) -Granulation Quality [place] -Necrosis Amt None Present (0 %) -Structure Exposed N/A -Texture (Yuliet-wound Skin Appearance) Scarring -Moisture (Yuliet-wound Skin Appearance) Dry/Scaly -Color (Yuliet-wound Skin Appearance) Hemosiderin Staining -Temperature (Yuliet-wound Skin No Abnormality Appearance) (Pt Warm) -Tenderness on Palpation (Yuliet-wound No Skin Appearance) -Ulcer Cleansing Soap and Water -Foul Odor after Cleansing No -Anesthetic Used 4% Lidocaine Solution #6 R DORSAL foot -Combined with other wound -Current Size (cm) - Length 2 -Current Size (cm) - Width 5.4 -Current Size (cm) - Depth 0.1 -Total Square Cm 10.8 -Date of Last Picture (Recall this field) -Photo Taken -Epithelialization -Tunneling -Undermining/Tunneling -Circular Undermining -Exudate Amt Medium -Exudate Type Serosanguineous -Wound Margin Indistinct, Non -Visible -Granulation Amt Large (67-100%) -Granulation Quality [place] -Slough/Fibrin -Necrosis Amt Large (67-100%) -Necrotic Tissue Type Adherent Slough -Structure Exposed N/A -Texture (Yuliet-wound Skin Appearance) Scarring -Moisture (Yuliet-wound Skin Appearance) Weeping,Dry/ Scaly -Color (Yuliet-wound Skin Appearance) Hemosiderin Staining -Temperature (Yuliet-wound Skin No Abnormality Appearance) (Pt Warm) -Tenderness on Palpation (Yuliet-wound No Skin Appearance) -Ulcer Cleansing Soap and Water -Foul Odor after Cleansing No -Anesthetic Used 4% Lidocaine Solution #5 L Med foot -Combined with other wound -Current Size (cm) - Length 0.8 -Current Size (cm) - Width 0.7 -Current Size (cm) - Depth 0.1 -Total Square Cm 0.56 -Date of Last Picture (Recall this field) -Photo Taken -Epithelialization -Tunneling -Undermining/Tunneling -Circular Undermining -Exudate Amt Small -Exudate Type -Wound Margin Distinct, Outline Attached -Granulation Amt Small (1-33%) -Granulation Quality [place] -Slough/Fibrin -Necrosis Amt Small (1-33%) -Necrotic Tissue Type Adherent Slough -Structure Exposed N/A -Texture (Yuliet-wound Skin Appearance) Scarring -Moisture (Yuliet-wound Skin Appearance) Dry/Scaly -Color (Yuliet-wound Skin Appearance) No Abnormality, Erythema, Hemosiderin Staining -Temperature (Yuliet-wound Skin No Abnormality Appearance) (Pt Warm) -Tenderness on Palpation (Yuliet-wound No Skin Appearance) -Ulcer Cleansing Soap and Water -Foul Odor after Cleansing No -Anesthetic Used 5% Lidocaine Gel #4 L Lat Foot -Combined with other wound -Current Size (cm) - Length 0.9 -Current Size (cm) - Width 0.4 -Current Size (cm) - Depth 0.3 -Total Square Cm 0.36 -Date of Last Picture (Recall this field) -Photo Taken -Epithelialization -Tunneling -Undermining/Tunneling -Circular Undermining -Exudate Amt Medium -Exudate Type Serosanguineous -Wound Margin Thickened -Granulation Amt Medium (34-66%) -Granulation Quality [place] -Slough/Fibrin -Necrosis Amt Medium (34-66%) -Necrotic Tissue Type Adherent Slough -Structure Exposed N/A -Texture (Yuliet-wound Skin Appearance) Scarring -Moisture (Yuliet-wound Skin Appearance) Dry/Scaly -Color (Yuliet-wound Skin Appearance) Hemosiderin Staining -Temperature (Yuliet-wound Skin No Abnormality Appearance) (Pt Warm) -Tenderness on Palpation (Yuliet-wound No Skin Appearance) -Ulcer Cleansing Soap and Water -Foul Odor after Cleansing No -Anesthetic Used 4% Lidocaine Solution #3 R Med Foot -Combined with other wound -Current Size (cm) - Length 0.8 -Current Size (cm) - Width 0.7 -Current Size (cm) - Depth 0.1 -Total Square Cm 0.56 -Date of Last Picture (Recall this field) -Photo Taken -Epithelialization -Tunneling -Undermining/Tunneling -Circular Undermining -Exudate Amt Medium -Exudate Type Serosanguineous -Wound Margin Distinct, Outline Attached -Granulation Amt Medium (34-66%) -Granulation Quality [place] -Slough/Fibrin -Necrosis Amt Medium (34-66%) -Necrotic Tissue Type Adherent Slough -Structure Exposed N/A -Texture (Yuliet-wound Skin Appearance) Scarring -Moisture (Yuliet-wound Skin Appearance) Dry/Scaly -Color (Yuliet-wound Skin Appearance) Hemosiderin Staining -Temperature (Yuliet-wound Skin No Abnormality Appearance) (Pt Warm) -Tenderness on Palpation (Yuliet-wound No Skin Appearance) -Ulcer Cleansing Soap and Water -Foul Odor after Cleansing No -Anesthetic Used 4% Lidocaine Solution #2 R Lat foot -Combined with other wound -Current Size (cm) - Length 4.6 -Current Size (cm) - Width 5.5 -Current Size (cm) - Depth 0.1 -Total Square Cm 25.30 -Date of Last Picture (Recall this field) -Photo Taken -Epithelialization -Tunneling -Undermining/Tunneling -Circular Undermining -Exudate Amt Medium -Exudate Type Serosanguineous -Wound Margin Distinct, Outline Attached -Granulation Amt Medium (34-66%) -Granulation Quality [place] -Slough/Fibrin -Necrosis Amt Medium (34-66%) -Necrotic Tissue Type Adherent Slough -Structure Exposed None/Limited to Skin Breakdown -Texture (Yuliet-wound Skin Appearance) Scarring -Moisture (Yuliet-wound Skin Appearance) Dry/Scaly -Color (Yuliet-wound Skin Appearance) Hemosiderin Staining -Temperature (Yuliet-wound Skin No Abnormality Appearance) (Pt Warm) -Tenderness on Palpation (Yuliet-wound No Skin Appearance) -Ulcer Cleansing Soap and Water -Foul Odor after Cleansing No -Anesthetic Used 4% Lidocaine Solution Lower Limb Edema Present Right Calf (cm) 35.5 Right Ankle (cm) 24.3 Left Calf (cm) 36.6 Left Ankle (cm) 24.2 WC - Nurse 2 - General Ulcer CM Notes Start: 11/27/22 10:57 Freq: Status: Active Protocol: Activity Type Activity Date Activity User E-sign Co-sign Detail Recorded Client Recorded Date Recorded By Document 11/27/22 11:40 MW [id number] 11/27/22 12:09 MW Document 12/04/22 11:32 MW [id number] 12/04/22 11:58 MW Document 12/11/22 11:32 MW Desktop 12/11/22 11:51 MW Document 12/18/22 11:18 MW [id number] 12/18/22 11:38 MW 11/27/22 12/04/22 12/11/22 11:40 11:32 11:32 Wound Center Nurse 2 #8 right lateral LE -Time 11:40 -Correct Patient Yes -Correct Side, Site, Position Yes -Correct Procedure Yes -Procedure Performed No -Post Debridement (cm) - Length 0 -Post Debridement (cm) - Width 0 -Total Square (Post) (cm) 0 -Tunneling No -Undermining/Tunneling No -Circular Undermining No -Wound/Ulcer Outcome Healed- Epithelialized #9 right medial LE -Time 11:41 11:37 11:34 -Correct Patient Yes Yes Yes -Correct Side, Site, Position Yes Yes Yes -Correct Procedure Yes Yes Yes -Procedure Performed Yes Yes No -Type of Procedure Debridement Debridement -Clinical Debridement Subcutaneous Subcutaneous -Tissue Removed Subcutaneous Subcutaneous -Post Debridement (cm) - Length 10.0 1.5 0 -Post Debridement (cm) - Width 3.0 0.7 0 -Post Debridement (cm) - Depth 0.1 0.1 0 -Total Square (Post) (cm) 30.00 1.05 0 -Area of Debridement (cm) - Length 10.0 1.5 -Area of Debridement (cm) - Width 3.0 0.7 -Total Square (Area) (cm) 30.00 1.05 -Tunneling No No No -Undermining/Tunneling No No No -Circular Undermining No No No -Wound/Ulcer Outcome Not Healed Not Healed Healed- Epithelialized -Ulcer Cleansing Rinsed/ Rinsed/ Irrigated with Irrigated with Saline Saline -Foul Odor after Cleansing No No -Bioengineered Tissue No No -Bleeding Controlled with Pressure Pressure -Treatment Response Procedure Tolerated Well -Offloading No -Debridement - Subq, 1st 20sq cm Yes Yes -Debridement, SubQ, ea addt'l 20sq cm 3 3 or part thereof #10 right posterior LE -Time 11:33 -Correct Patient Yes -Correct Side, Site, Position Yes -Correct Procedure -Procedure Performed Yes -Type of Procedure Debridement -Clinical Debridement Subcutaneous -Tissue Removed Subcutaneous -Post Debridement (cm) - Length 11.0 -Post Debridement (cm) - Width 4.0 -Post Debridement (cm) - Depth 0.1 -Total Square (Post) (cm) 44.00 -Area of Debridement (cm) - Length 11.0 -Area of Debridement (cm) - Width 4.0 -Total Square (Area) (cm) 44.00 -Tunneling No -Undermining/Tunneling No -Circular Undermining No -Wound/Ulcer Outcome Not Healed -Ulcer Cleansing Rinsed/ Irrigated with Saline -Foul Odor after Cleansing No -Bioengineered Tissue No -Bleeding Controlled with Pressure -Treatment Response Procedure Tolerated Well -Offloading No -Debridement - Subq, 1st 20sq cm No -Debridement, SubQ, ea addt'l 20sq cm or part thereof #6 R DORSAL foot -Time 11:41 11:39 11:34 -Correct Patient Yes Yes Yes -Correct Side, Site, Position Yes Yes Yes -Correct Procedure Yes Yes Yes -Procedure Performed Yes Yes Yes -Type of Procedure Debridement Debridement Debridement -Clinical Debridement Subcutaneous Subcutaneous Subcutaneous -Tissue Removed Subcutaneous Epidermis, Subcutaneous Subcutaneous -Post Debridement (cm) - Length 1.0 1.5 1.5 -Post Debridement (cm) - Width 0.8 5.5 5.2 -Post Debridement (cm) - Depth 0.1 0.1 0.1 -Total Square (Post) (cm) 0.80 8.25 7.80 -Area of Debridement (cm) - Length 1.0 1.5 1.5 -Area of Debridement (cm) - Width 0.8 5.5 5.2 -Total Square (Area) (cm) 0.80 8.25 7.80 -Tunneling No No No -Undermining/Tunneling No No No -Circular Undermining No No No -Wound/Ulcer Outcome Not Healed Not Healed Not Healed -Ulcer Cleansing Rinsed/ Rinsed/ Rinsed/ Irrigated with Irrigated with Irrigated with Saline Saline Saline -Foul Odor after Cleansing No No No -Bioengineered Tissue No No No -Bleeding Controlled with Pressure Pressure Pressure -Treatment Response Procedure Procedure Procedure Tolerated Well Tolerated Well Tolerated Well -Offloading No No No -Debridement - Subq, 1st 20sq cm No No Yes -Debridement, SubQ, ea addt'l 20sq cm 5 or part thereof #5 L Med foot -Time 11:53 11:35 -Correct Patient Yes Yes Yes -Correct Side, Site, Position Yes Yes Yes -Correct Procedure Yes Yes Yes -Procedure Performed Yes Yes Yes -Type of Procedure Debridement Debridement Debridement -Clinical Debridement Subcutaneous Subcutaneous Subcutaneous -Tissue Removed Subcutaneous Subcutaneous Subcutaneous -Post Debridement (cm) - Length 1.0 1.3 1.4 -Post Debridement (cm) - Width 2.0 3.0 1.5 -Post Debridement (cm) - Depth 0.1 0.2 0.2 -Total Square (Post) (cm) 2.00 3.90 2.10 -Area of Debridement (cm) - Length 1.0 1.3 1.4 -Area of Debridement (cm) - Width 2.0 3.0 1.5 -Total Square (Area) (cm) 2.00 3.90 2.10 -Tunneling No No No -Undermining/Tunneling No No No -Circular Undermining No No No -Wound/Ulcer Outcome Not Healed Not Healed Not Healed -Ulcer Cleansing Rinsed/ Rinsed/ Rinsed/ Irrigated with Irrigated with Irrigated with Saline Saline Saline -Foul Odor after Cleansing No No No -Bioengineered Tissue No No No -Bleeding Controlled with Pressure Pressure Pressure -Treatment Response Procedure Procedure Procedure Tolerated Well Tolerated Well Tolerated Well -Offloading No No No -Debridement - Subq, 1st 20sq cm No No No #4 L Lat Foot -Time 11:54 11:35 -Correct Patient Yes Yes Yes -Correct Side, Site, Position Yes Yes Yes -Correct Procedure Yes Yes Yes -Procedure Performed Yes Yes Yes -Type of Procedure Debridement Debridement Debridement -Clinical Debridement Subcutaneous Subcutaneous Subcutaneous -Tissue Removed Subcutaneous Subcutaneous Subcutaneous -Post Debridement (cm) - Length 1.6 1.0 1.0 -Post Debridement (cm) - Width 0.4 0.3 0.3 -Post Debridement (cm) - Depth 0.2 0.2 0.2 -Total Square (Post) (cm) 0.64 0.30 0.30 -Area of Debridement (cm) - Length 1.6 1.0 1.0 -Area of Debridement (cm) - Width 0.4 0.3 0.3 -Total Square (Area) (cm) 0.64 0.30 0.30 -Tunneling No No No -Undermining/Tunneling No No No -Circular Undermining No No No -Wound/Ulcer Outcome Not Healed Not Healed Not Healed -Ulcer Cleansing Rinsed/ Rinsed/ Rinsed/ Irrigated with Irrigated with Irrigated with Saline Saline Saline -Foul Odor after Cleansing No No No -Bioengineered Tissue No No No -Bleeding Controlled with Pressure Pressure Pressure -Treatment Response Procedure Procedure Procedure Tolerated Well Tolerated Well Tolerated Well -Offloading No No No -Debridement - Subq, 1st 20sq cm No No No #3 R Med Foot -Time 11:41 11:55 11:40 -Correct Patient Yes Yes Yes -Correct Side, Site, Position Yes Yes Yes -Correct Procedure Yes Yes Yes -Procedure Performed Yes Yes Yes -Type of Procedure Debridement Debridement Debridement -Clinical Debridement Subcutaneous Subcutaneous Subcutaneous -Tissue Removed Subcutaneous Epidermis, Subcutaneous Subcutaneous -Post Debridement (cm) - Length 2.0 2.0 2.0 -Post Debridement (cm) - Width 8.5 9.0 8.5 -Post Debridement (cm) - Depth 0.2 0.3 0.1 -Total Square (Post) (cm) 17.00 18.00 17.00 -Area of Debridement (cm) - Length 2.0 2.0 2.0 -Area of Debridement (cm) - Width 8.5 9.0 8.5 -Total Square (Area) (cm) 17.00 18.00 17.00 -Tunneling No No No -Undermining/Tunneling No No No -Circular Undermining No No No -Wound/Ulcer Outcome Not Healed Not Healed Not Healed -Ulcer Cleansing Rinsed/ Rinsed/ Rinsed/ Irrigated with Irrigated with Irrigated with Saline Saline Saline -Foul Odor after Cleansing No No No -Bioengineered Tissue No No No -Bleeding Controlled with Pressure Pressure Pressure -Treatment Response Procedure Procedure Procedure Tolerated Well Tolerated Well Tolerated Well -Offloading No No No -Debridement - Subq, 1st 20sq cm No No No #2 R Lat foot -Time 11:41 11:55 11:41 -Correct Patient Yes Yes Yes -Correct Side, Site, Position Yes Yes Yes -Correct Procedure Yes Yes Yes -Procedure Performed Yes Yes Yes -Type of Procedure Debridement Debridement Debridement -Clinical Debridement Subcutaneous Subcutaneous Subcutaneous -Tissue Removed Subcutaneous Subcutaneous Subcutaneous -Post Debridement (cm) - Length 4.0 5.0 4.8 -Post Debridement (cm) - Width 6.0 7.0 8.0 -Post Debridement (cm) - Depth 0.1 0.2 0.1 -Total Square (Post) (cm) 24.00 35.00 38.40 -Area of Debridement (cm) - Length 4.0 5.0 4.8 -Area of Debridement (cm) - Width 6.0 7.0 8.0 -Total Square (Area) (cm) 24.00 35.00 38.40 -Tunneling No No No -Undermining/Tunneling No No No -Circular Undermining No No No -Wound/Ulcer Outcome Not Healed Not Healed Not Healed -Ulcer Cleansing Rinsed/ Rinsed/ Rinsed/ Irrigated with Irrigated with Irrigated with Saline Saline Saline -Foul Odor after Cleansing No No No -Bioengineered Tissue No No No -Bleeding Controlled with Pressure Pressure Pressure -Treatment Response Procedure Procedure Procedure Tolerated Well Tolerated Well Tolerated Well -Offloading No No No -Debridement - Subq, 1st 20sq cm No No No Pain Scale: 0-10 Numeric Is Patient Pain Free? Yes Yes Yes 12/18/22 11:18 Wound Center Nurse 2 #8 right lateral LE -Time -Correct Patient -Correct Side, Site, Position -Correct Procedure -Procedure Performed -Post Debridement (cm) - Length -Post Debridement (cm) - Width -Total Square (Post) (cm) -Tunneling -Undermining/Tunneling -Circular Undermining -Wound/Ulcer Outcome #9 right medial LE -Time -Correct Patient -Correct Side, Site, Position -Correct Procedure -Procedure Performed -Type of Procedure -Clinical Debridement -Tissue Removed -Post Debridement (cm) - Length -Post Debridement (cm) - Width -Post Debridement (cm) - Depth -Total Square (Post) (cm) -Area of Debridement (cm) - Length -Area of Debridement (cm) - Width -Total Square (Area) (cm) -Tunneling -Undermining/Tunneling -Circular Undermining -Wound/Ulcer Outcome -Ulcer Cleansing -Foul Odor after Cleansing -Bioengineered Tissue -Bleeding Controlled with -Treatment Response -Offloading -Debridement - Subq, 1st 20sq cm -Debridement, SubQ, ea addt'l 20sq cm or part thereof #10 right posterior LE -Time 11:20 -Correct Patient Yes -Correct Side, Site, Position Yes -Correct Procedure Yes -Procedure Performed Yes -Type of Procedure Debridement -Clinical Debridement Subcutaneous -Tissue Removed Subcutaneous -Post Debridement (cm) - Length 8.0 -Post Debridement (cm) - Width 3.0 -Post Debridement (cm) - Depth 0.1 -Total Square (Post) (cm) 24.00 -Area of Debridement (cm) - Length 8.0 -Area of Debridement (cm) - Width 3.0 -Total Square (Area) (cm) 24.00 -Tunneling No -Undermining/Tunneling No -Circular Undermining No -Wound/Ulcer Outcome Not Healed -Ulcer Cleansing Rinsed/ Irrigated with Saline -Foul Odor after Cleansing No -Bioengineered Tissue No -Bleeding Controlled with Pressure -Treatment Response Procedure Tolerated Well -Offloading No -Debridement - Subq, 1st 20sq cm Yes -Debridement, SubQ, ea addt'l 20sq cm 3 or part thereof #6 R DORSAL foot -Time 11:20 -Correct Patient Yes -Correct Side, Site, Position Yes -Correct Procedure Yes -Procedure Performed Yes -Type of Procedure Debridement -Clinical Debridement Subcutaneous -Tissue Removed Subcutaneous -Post Debridement (cm) - Length 2.0 -Post Debridement (cm) - Width 6.0 -Post Debridement (cm) - Depth 0.1 -Total Square (Post) (cm) 12.00 -Area of Debridement (cm) - Length 2.0 -Area of Debridement (cm) - Width 6.0 -Total Square (Area) (cm) 12.00 -Tunneling No -Undermining/Tunneling No -Circular Undermining No -Wound/Ulcer Outcome Not Healed -Ulcer Cleansing Rinsed/ Irrigated with Saline -Foul Odor after Cleansing No -Bioengineered Tissue No -Bleeding Controlled with Pressure -Treatment Response Procedure Tolerated Well -Offloading No -Debridement - Subq, 1st 20sq cm No -Debridement, SubQ, ea addt'l 20sq cm or part thereof #5 L Med foot -Time 11:21 -Correct Patient Yes -Correct Side, Site, Position Yes -Correct Procedure Yes -Procedure Performed Yes -Type of Procedure Debridement -Clinical Debridement Subcutaneous -Tissue Removed Subcutaneous -Post Debridement (cm) - Length 1.0 -Post Debridement (cm) - Width 3.2 -Post Debridement (cm) - Depth 0.1 -Total Square (Post) (cm) 3.20 -Area of Debridement (cm) - Length 1.0 -Area of Debridement (cm) - Width 3.2 -Total Square (Area) (cm) 3.20 -Tunneling No -Undermining/Tunneling No -Circular Undermining No -Wound/Ulcer Outcome Not Healed -Ulcer Cleansing Rinsed/ Irrigated with Saline -Foul Odor after Cleansing No -Bioengineered Tissue No -Bleeding Controlled with Pressure -Treatment Response Procedure Tolerated Well -Offloading No -Debridement - Subq, 1st 20sq cm No #4 L Lat Foot -Time 11:21 -Correct Patient Yes -Correct Side, Site, Position Yes -Correct Procedure Yes -Procedure Performed Yes -Type of Procedure Debridement -Clinical Debridement Subcutaneous -Tissue Removed Subcutaneous -Post Debridement (cm) - Length 0.9 -Post Debridement (cm) - Width 0.5 -Post Debridement (cm) - Depth 0.2 -Total Square (Post) (cm) 0.45 -Area of Debridement (cm) - Length 0.9 -Area of Debridement (cm) - Width 0.5 -Total Square (Area) (cm) 0.45 -Tunneling No -Undermining/Tunneling No -Circular Undermining No -Wound/Ulcer Outcome Not Healed -Ulcer Cleansing Rinsed/ Irrigated with Saline -Foul Odor after Cleansing No -Bioengineered Tissue No -Bleeding Controlled with Pressure -Treatment Response Procedure Tolerated Well -Offloading No -Debridement - Subq, 1st 20sq cm No #3 R Med Foot -Time 11:21 -Correct Patient Yes -Correct Side, Site, Position Yes -Correct Procedure Yes -Procedure Performed Yes -Type of Procedure Debridement -Clinical Debridement Subcutaneous -Tissue Removed Subcutaneous -Post Debridement (cm) - Length 2.0 -Post Debridement (cm) - Width 8.5 -Post Debridement (cm) - Depth 0.2 -Total Square (Post) (cm) 17.00 -Area of Debridement (cm) - Length 2.0 -Area of Debridement (cm) - Width 8.5 -Total Square (Area) (cm) 17.00 -Tunneling No -Undermining/Tunneling No -Circular Undermining No -Wound/Ulcer Outcome Not Healed -Ulcer Cleansing Rinsed/ Irrigated with Saline -Foul Odor after Cleansing No -Bioengineered Tissue No -Bleeding Controlled with Pressure -Treatment Response Procedure Tolerated Well -Offloading No -Debridement - Subq, 1st 20sq cm No #2 R Lat foot -Time 11:22 -Correct Patient Yes -Correct Side, Site, Position Yes -Correct Procedure Yes -Procedure Performed Yes -Type of Procedure Debridement -Clinical Debridement Subcutaneous -Tissue Removed Subcutaneous -Post Debridement (cm) - Length 5.0 -Post Debridement (cm) - Width 2.0 -Post Debridement (cm) - Depth 0.1 -Total Square (Post) (cm) 10.00 -Area of Debridement (cm) - Length 5.0 -Area of Debridement (cm) - Width 2.0 -Total Square (Area) (cm) 10.00 -Tunneling No -Undermining/Tunneling No -Circular Undermining No -Wound/Ulcer Outcome Not Healed -Ulcer Cleansing Rinsed/ Irrigated with Saline -Foul Odor after Cleansing No -Bioengineered Tissue No -Bleeding Controlled with Pressure -Treatment Response Procedure Tolerated Well -Offloading No -Debridement - Subq, 1st 20sq cm No Pain Scale: 0-10 Numeric Is Patient Pain Free? Yes WC - Nurse 3 - General Ulcer D/C NN Start: 11/27/22 10:57 Freq: Status: Active Protocol: Activity Type Activity Date Activity User E-sign Co-sign Detail Recorded Client Recorded Date Recorded By Document 12/04/22 12:03 BMF [id number] 12/04/22 12:06 BMF Edit Result 12/04/22 12:03 BMF (1) [id number] 12/04/22 12:18 BMF Document 12/11/22 12:14 AK [id number] 12/11/22 12:20 AK (1) #9 right medial LE - [place] 1 => 2 #5 L Med foot - Promogran 1 => 2 12/04/22 12/11/22 12:03 12:14 Wound Care Center Nurse 3 #9 right medial LE -Ulcer Cleansing Soap and Water -Foul Odor after Cleansing No -Primary Dressing Applied [place] -Other Dressing ABD, DRSG PER DL PHYSICIAN REPRESENTATIVE -Primary Dressing Covered/Secured with Dry Gauze & Roll Gauze, Secured with Tape -[place] 2 #10 right posterior LE -Ulcer Cleansing Rinsed/ Irrigated with Saline -Foul Odor after Cleansing No -Negative Pressure Wound Therapy N/A -Primary Dressing Applied [place] -Other Dressing ABD -Primary Dressing Covered/Secured with Dry Gauze & Roll Gauze, Secured with Tape -[place] 1 #6 R DORSAL foot -Ulcer Cleansing Soap and Water Soap and Water -Foul Odor after Cleansing No No -Negative Pressure Wound Therapy N/A -Primary Dressing Applied [place]cel Silvercel -Other Dressing ABD; DRSG PER DL PHYSICIAN REPRESENTATIVE -Primary Dressing Covered/Secured with Dry Gauze & Dry Gauze & Roll Gauze, Roll Gauze, Secured with Secured with Tape Tape -[place] 0 1 #5 L Med foot -Ulcer Cleansing Soap and Water Rinsed/ Irrigated with Saline -Foul Odor after Cleansing No -Negative Pressure Wound Therapy N/A -Primary Dressing Applied NonAdherent Contact Layer, Promogran -Other Dressing ABD; DRSG PER DL PHYSICIAN REPRESENTATIVE -Primary Dressing Covered/Secured with Dry Gauze & Roll Gauze, Secured with Tape -Promogran 2 -Promogran Joan Matter 1 #4 L Lat Foot -Ulcer Cleansing Soap and Water -Foul Odor after Cleansing No -Primary Dressing Applied NonAdherent Contact Layer, Promogran -Other Dressing ABD; DRSG PER DL PHYSICIAN REPRESENTATIVE -Promogran 0 #3 R Med Foot -Ulcer Cleansing Soap and Water Soap and Water -Foul Odor after Cleansing No No -Negative Pressure Wound Therapy N/A -Primary Dressing Applied [place] -Other Dressing ABD; PER DL PHYSICIAN REPRESENTATIVE silvercel -Primary Dressing Covered/Secured with Dry Gauze & Dry Gauze & Roll Gauze, Roll Gauze, Secured with Secured with Tape Tape -Promogran Joan Matter 1 -[place] 0 #2 R Lat foot -Ulcer Cleansing Soap and Water -Foul Odor after Cleansing No No -Negative Pressure Wound Therapy N/A -Primary Dressing Applied [place] -Other Dressing ABD; DRSG PER DL PHYSICIAN REPRESENTATIVE -Primary Dressing Covered/Secured with Dry Gauze & Roll Gauze, Secured with Tape -[place] 0 BLE -Lotion applied to leg before Yes compression wrap -Compression Wrap Cole Wrap Cole Wrap Treatment Response Procedure Tolerated Well Pain Scale: 0-10 Numeric Is Patient Pain Free? Yes No WC - Visit Discharge Discharge Condition Stable Stable Ambulatory Status Stretcher Wheelchair Transportation TRANSPORT Private Auto Medication Reconcilliation completed & Yes provided to patient/care provider Clinical Summary of Care Provided Yes Facility Type [facility] Care Facility Additional Wound Wound debrided: Left medial ankle/lower extremity Type of Debridement: Excisional debridement Anesthesia Used: 5% Lidocaine Gel Depth: Down to and including healthy tissue and in the subcutaneous layer Percentage of wound debrided: 100 Instrument Used: 5mm curette, #15 blade and Forceps Tissue Removed: Slough and devitalized tissue Severity: Fat Layer Exposed Amount of bleeding with debridement: Mild Bleeding Controlled with: Pressure Patient tolerated procedure: Patient tolerated procedure well Additional Wound Wound debrided: Right medial ankle/lower extremity Type of Debridement: Excisional debridement Anesthesia Used: 5% Lidocaine Gel Depth: Down to and including healthy tissue and in the subcutaneous layer Percentage of wound debrided: 100 Instrument Used: 5mm curette, #15 blade and Forceps Tissue Removed: Slough and devitalized tissue Severity: Fat Layer Exposed Amount of bleeding with debridement: Mild Bleeding Controlled with: Pressure Patient tolerated procedure: Patient tolerated procedure well Additional Wound Wound debrided: Right Posterior Leg ( Cluster ) Type of Debridement: Excisional debridement Anesthesia Used: 4% Lidocaine Solution Depth: Down to and including healthy tissue and in the subcutaneous layer Percentage of wound debrided: 100 Instrument Used: 7mm curette Tissue Removed: Slough and devitalized tissue Severity: Fat Layer Exposed Amount of bleeding with debridement: Mild Bleeding Controlled with: Pressure Patient tolerated procedure: Patient tolerated procedure well Additional Wound Wound debrided: Right Dorsal Foot Type of Debridement: Excisional debridement Anesthesia Used: 4% Lidocaine Solution Depth: Down to and including healthy tissue and in the subcutaneous layer Percentage of wound debrided: 100 Instrument Used: 7mm curette Tissue Removed: Slough and devitalized tissue Severity: Fat Layer Exposed Amount of bleeding with debridement: Mild Bleeding Controlled with: Pressure Patient tolerated procedure: Patient tolerated procedure well Additional Wound Wound debrided: Right Lateral Ankle/Foot Type of Debridement: Excisional debridement Anesthesia Used: 4% Lidocaine Solution Depth: Down to and including healthy tissue and in the subcutaneous layer Percentage of wound debrided: 100 Instrument Used: 5mm curette Tissue Removed: Slough and devitalized tissue Severity: Fat Layer Exposed Amount of bleeding with debridement: Mild Bleeding Controlled with: Pressure Patient tolerated procedure: Patient tolerated procedure well Assessment/Plan Assessment/Plan (1) Ulcer of right lower extremity with fat layer exposed: CODE(S): L97.912 - Non-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 (2) Ulcer of left lower extremity with fat layer exposed: CODE(S): L97.922 - Non-pressure chronic ulcer of unspecified part of left lower leg with fat layer exposed (3) Ulcer of right heel and midfoot with fat layer exposed: CODE(S): L97.412 - Non-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 New right posterior lower extremity ulceration from blistering. Continue silver alginate to all ulcers and cover with ABD. Change twice daily or more depending on drainage. Cole wrap to both extremities for edema management. Leg elevation, optimize protein and nutrition. Their questions were answered and they were advised to let us know if they have any further questions or concerns. Follow- up in 2 weeks or sooner if needed. This note was generated with [employer] software. It may contain incorrect words, spelling, and punctuation that were not noted in checking the note before signing.
== END 2022-12-26 23:59 | disposition home or self-care (01) ==
LOC: WC 10:45
PROVIDERS: PCP Family Medicine; Referring Provider Family Medicine; Visit Provider Internal Medicine
DX: L97.922 Non-pressure chronic ulcer of unspecified part of left lower leg with fat layer exposed (principal); L97.412 Non-pressure chronic ulcer of right heel and midfoot with fat layer exposed; L97.912 Non-pressure chronic ulcer of unspecified part of right lower leg with fat layer exposed; I73.9 Peripheral vascular disease, unspecified; R53.81 Other malaise; M79.671 Pain in right foot; G62.9 Polyneuropathy, unspecified
CPT/HCPCS: 11042; 11045

== ENCOUNTER 2023-01-08 11:00 | Outpatient (RCR) | payer MEDICARE, BC, SELFPAY ==
[2022-12-27 00:37] VITALS: BP 79/40; PULSE 58; RESP 20; TEMP 35.4
[2023-01-01 11:14] VITALS: BP 97/44; PULSE 60; RESP 18; TEMP 36.3
--- NOTE | 2023-01-01 13:09 | PCM.WC.PN ---
History of Present Illness Date of Service: 01/01/23 Chief Complaint: Nonhealing bilateral lower extremity ulcers History of Wound: Mr Wilson is an 82-year-old who was brought in here from his assisted due to nonhealing bilateral lower extremity ulcers. Has had recurrent ulcerations for over 10 years with most recent episode being more severe late last year. He was seen at the emergency room and subsequently advised to follow-up at a wound center which he did at [facility] without any significant improvement. A month ago, he was hospitalized for sepsis secondary to bilateral lower extremity ulcers. Following his admission and hospital stay, he did not return to the prior wound center. He reports a lot of drainage from his ulcers. They have been inconsistent dressing changes at his facility. He feels well otherwise and denies chills, fever. Currently has a PICC line and he is on IV vancomycin and cephalosporin. Progress of Wound: No new concerns at this time. has remained relatively stable. Objective Data Objective Data Vital Signs: Vital Signs Temp Pulse Resp BP 97.4 F L 60 18 97/44 L 01/01/23 11:14 01/01/23 11:14 01/01/23 11:14 01/01/23 11:14 Charges/Coding Procedures Integumentary 111xxx-113xx: [id number] Samina subq tissue 20 sq cm/< Add On Codes: 33792 Samina subq tissue add-on (x4. Additional square centimeter debrided, please refer to clinical note.) Physical Exam Const alert and no apparent distress General Appearance: cooperative and comfortable HEENT normocephalic, head/scalp atraumatic and hearing grossly normal bilaterally Head and Scalp: normal to inspection, normocephalic and atraumatic Eyes EOMs intact bilaterally Neck full ROM General: normal visual inspection Resp normal respiratory effort Effort and Inspection: able to speak in complete sentences Extremity General Extremity: deformity Skin Wounds: wounds noted Neuro CN's II-XII intact bilaterally, moves all extremities and no focal motor deficits Psych mental status grossly normal Appearance: grossly normal Attitude: calm Activity / Motor Behavior: appropriate eye contact Debridement Note Debridement Note Wound debrided: Left Lateral ankle/Lower extremity Type of Debridement: Excisional debridement Anesthesia Used: 5% Lidocaine Gel Depth: Down to and including healthy tissue and in the subcutaneous layer Percentage of wound debrided: 100 Instrument Used: 5mm curette, #15 blade and Forceps Tissue Removed: Slough and devitalized tissue Severity: Fat Layer Exposed Amount of bleeding with debridement: Mild Bleeding Controlled with: Pressure Patient tolerated procedure: Patient tolerated procedure well Post-Debridement Measurements and Additional Note: Post-Debridement Measurements/Treatment - Nurse 1 - General Ulcer Assessment Start: 01/01/23 11:13 Freq: Status: Active Protocol: MARTA Activity Type Activity Date Activity User E-sign Co-sign Detail Recorded Client Recorded Date Recorded By Document 01/01/23 11:14 JERILYN [id number] 01/01/23 11:28 RB 01/01/23 11:14 - Today's Visit Information Type of service 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 Any new allergies or adverse reactions No Had a fall/change in ADL's that may No increase risk of falls Signs or symptoms of abuse and/or No neglect since last visit Have you been in the hospital since your No last visit? Has dressing in place as prescribed Yes Has compression in place as prescribed Yes Has offloadiing in place as prescribed No Experienced any changes in pain level or No management Pain Scale: 0-10 Numeric Is Patient Pain Free? Yes - Nurse 1 - General Ulcer Measurement Start: 01/01/23 11:13 Freq: Status: Active Protocol: Activity Type Activity Date Activity User E-sign Co-sign Detail Recorded Client Recorded Date Recorded By Document 01/01/23 11:14 JERILYN [id number] 01/01/23 11:28 RB 01/01/23 11:14 Wound Center Nurse 1 #10 right posterior LE -Combined with other wound No -Current Size (cm) - Length 0.1 -Current Size (cm) - Width 0.1 -Current Size (cm) - Depth 0.1 -Total Square Cm 0.01 -Tunneling No -Undermining/Tunneling No -Circular Undermining No -Exudate Amt Medium -Exudate Type Serosanguineous -Wound Margin Distinct, Outline Attached -Granulation Amt Medium (34-66%) -Granulation Quality [place] -Slough/Fibrin Yes -Necrosis Amt Medium (34-66%) -Necrotic Tissue Type Adherent Slough -Structure Exposed N/A -Texture ([place]-wound Skin Appearance) Assessed -Moisture ([place]-wound Skin Appearance) Assessed -Color ([place]-wound Skin Appearance) Assessed -Temperature ([place]-wound Skin No Abnormality Appearance) (Pt Warm) -Tenderness on Palpation ([place]-wound No Skin Appearance) -Ulcer Cleansing Wound Cleanser -Foul Odor after Cleansing No -Anesthetic Used 5% Lidocaine Gel #6 R DORSAL foot -Tunneling No -Undermining/Tunneling No -Circular Undermining No -Exudate Amt Medium -Exudate Type Serosanguineous #5 L Med foot -Exudate Amt Medium -Exudate Type Serosanguineous #4 L Lat Foot -Exudate Amt Medium -Exudate Type Serosanguineous #3 R Med Foot -Exudate Amt Medium -Exudate Type Serosanguineous #2 R Lat foot -Exudate Amt Medium -Exudate Type Serosanguineous WC - Nurse 2 - General Ulcer CM Notes Start: 01/01/23 11:13 Freq: Status: Active Protocol: Activity Type Activity Date Activity User E-sign Co-sign Detail Recorded Client Recorded Date Recorded By Document 01/01/23 11:49 MW [id number] 01/01/23 12:04 MW 01/01/23 11:49 Wound Center Nurse 2 #10 right posterior LE -Time 11:57 -Correct Patient Yes -Correct Side, Site, Position Yes -Correct Procedure Yes -Procedure Performed Yes -Type of Procedure Debridement -Clinical Debridement Subcutaneous -Tissue Removed Subcutaneous -Post Debridement (cm) - Length 7.0 -Post Debridement (cm) - Width 2.0 -Post Debridement (cm) - Depth 0.1 -Total Square (Post) (cm) 14.00 -Area of Debridement (cm) - Length 7.0 -Area of Debridement (cm) - Width 2.0 -Total Square (Area) (cm) 14.00 -Tunneling No -Undermining/Tunneling No -Circular Undermining No -Wound/Ulcer Outcome Not Healed -Ulcer Cleansing Rinsed/ Irrigated with Saline -Foul Odor after Cleansing No -Bioengineered Tissue No -Bleeding Controlled with Pressure -Treatment Response Procedure Tolerated Well -Offloading No -Debridement - Subq, 1st 20sq cm Yes -Debridement, SubQ, ea addt'l 20sq cm 4 or part thereof #6 R DORSAL foot -Time 11:57 -Correct Patient Yes -Correct Side, Site, Position Yes -Correct Procedure Yes -Procedure Performed Yes -Type of Procedure Debridement -Clinical Debridement Subcutaneous -Tissue Removed Subcutaneous -Post Debridement (cm) - Length 1.5 -Post Debridement (cm) - Width 6.0 -Post Debridement (cm) - Depth 0.1 -Total Square (Post) (cm) 9.00 -Area of Debridement (cm) - Length 1.5 -Area of Debridement (cm) - Width 6.0 -Total Square (Area) (cm) 9.00 -Tunneling No -Undermining/Tunneling No -Circular Undermining No -Wound/Ulcer Outcome Not Healed -Ulcer Cleansing Rinsed/ Irrigated with Saline -Foul Odor after Cleansing No -Bioengineered Tissue No -Bleeding Controlled with Pressure -Treatment Response Procedure Tolerated Well -Offloading No -Debridement - Subq, 1st 20sq cm No #5 L Med foot -Time 11:54 -Correct Patient Yes -Correct Side, Site, Position Yes -Correct Procedure Yes -Procedure Performed Yes -Type of Procedure Debridement -Clinical Debridement Subcutaneous -Tissue Removed Subcutaneous -Post Debridement (cm) - Length 0.6 -Post Debridement (cm) - Width 1.0 -Post Debridement (cm) - Depth 0.1 -Total Square (Post) (cm) 0.60 -Area of Debridement (cm) - Length 0.6 -Area of Debridement (cm) - Width 1.0 -Total Square (Area) (cm) 0.60 -Tunneling No -Undermining/Tunneling No -Circular Undermining No -Wound/Ulcer Outcome Not Healed -Ulcer Cleansing Rinsed/ Irrigated with Saline -Foul Odor after Cleansing No -Bioengineered Tissue No -Bleeding Controlled with Pressure -Treatment Response Procedure Tolerated Well -Offloading No -Debridement - Subq, 1st 20sq cm No #4 L Lat Foot -Time 11:55 -Correct Patient Yes -Correct Side, Site, Position Yes -Correct Procedure Yes -Procedure Performed Yes -Type of Procedure Debridement -Clinical Debridement Subcutaneous -Tissue Removed Subcutaneous -Post Debridement (cm) - Length 0.4 -Post Debridement (cm) - Width 0.8 -Post Debridement (cm) - Depth 0.1 -Total Square (Post) (cm) 0.32 -Area of Debridement (cm) - Length 0.4 -Area of Debridement (cm) - Width 0.8 -Total Square (Area) (cm) 0.32 -Tunneling No -Undermining/Tunneling No -Circular Undermining No -Wound/Ulcer Outcome Not Healed -Ulcer Cleansing Rinsed/ Irrigated with Saline -Foul Odor after Cleansing No -Bioengineered Tissue No -Bleeding Controlled with Pressure -Treatment Response Procedure Tolerated Well -Offloading No -Debridement - Subq, 20sq cm No #3 R Med Foot -Time 11:55 -Correct Patient Yes -Correct Side, Site, Position Yes -Correct Procedure Yes -Procedure Performed Yes -Type of Procedure Debridement -Clinical Debridement Subcutaneous -Tissue Removed Subcutaneous -Post Debridement (cm) - Length 1.5 -Post Debridement (cm) - Width 9.0 -Post Debridement (cm) - Depth 0.2 -Total Square (Post) (cm) 13.50 -Area of Debridement (cm) - Length 1.5 -Area of Debridement (cm) - Width 9.0 -Total Square (Area) (cm) 13.50 -Tunneling No -Undermining/Tunneling No -Circular Undermining No -Wound/Ulcer Outcome Not Healed -Ulcer Cleansing Rinsed/ Irrigated with Saline -Foul Odor after Cleansing No -Bioengineered Tissue No -Bleeding Controlled with Pressure -Treatment Response Procedure Tolerated Well -Offloading No -Debridement - Subq, 1st 20sq cm No #2 R Lat foot -Time 11:56 -Correct Patient Yes -Correct Side, Site, Position Yes -Correct Procedure Yes -Procedure Performed Yes -Type of Procedure Debridement -Clinical Debridement Subcutaneous -Tissue Removed Subcutaneous -Post Debridement (cm) - Length 4.5 -Post Debridement (cm) - Width 10.0 -Post Debridement (cm) - Depth 0.1 -Total Square (Post) (cm) 45.00 -Area of Debridement (cm) - Length 4.5 -Area of Debridement (cm) - Width 10.0 -Total Square (Area) (cm) 45.00 -Tunneling No -Undermining/Tunneling No -Circular Undermining No -Wound/Ulcer Outcome Not Healed -Ulcer Cleansing Rinsed/ Irrigated with Saline -Foul Odor after Cleansing No -Bioengineered Tissue No -Bleeding Controlled with Pressure -Treatment Response Procedure Tolerated Well -Offloading No -Debridement - Subq, 1st 20sq cm No Pain Scale: 0-10 Numeric Is Patient Pain Free? Yes WC - Nurse 3 - General Ulcer D/C NN Start: 01/01/23 11:13 Freq: Status: Active Protocol: Activity Type Activity Date Activity User E-sign Co-sign Detail Recorded Client Recorded Date Recorded By Document 01/01/23 12:10 JUAN RAMON [id number] 01/01/23 12:11 JUAN RAMON 01/01/23 12:10 Wound Care Center Nurse 3 #10 right posterior LE -Ulcer Cleansing Wound Cleanser -Foul Odor after Cleansing No -Primary Dressing Applied Silvercel -Primary Dressing Covered/Secured with Dry Gauze & Roll Gauze -Silvercel 2 #6 R DORSAL foot -Ulcer Cleansing Rinsed/ Irrigated with Saline -Foul Odor after Cleansing No -Primary Dressing Applied Silvercel -Primary Dressing Covered/Secured with Dry Gauze & Roll Gauze, Secured with Tape -[place]cel 0 #5 L Med foot -Ulcer Cleansing Rinsed/ Irrigated with Saline -Foul Odor after Cleansing No -Primary Dressing Applied Silvercel -Primary Dressing Covered/Secured with Dry Gauze & Roll Gauze, Secured with Tape -[place]cel 0 #4 L Lat Foot -Ulcer Cleansing Rinsed/ Irrigated with Saline -Foul Odor after Cleansing No -Primary Dressing Applied Silvercel -Primary Dressing Covered/Secured with Dry Gauze & Roll Gauze, Secured with Tape -[place]cel 0 #3 R Med Foot -Ulcer Cleansing Rinsed/ Irrigated with Saline -Foul Odor after Cleansing No -Primary Dressing Applied Silvercel -Primary Dressing Covered/Secured with Dry Gauze & Roll Gauze, Secured with Tape -Silvercel 0 #2 R Lat foot -Ulcer Cleansing Rinsed/ Irrigated with Saline -Foul Odor after Cleansing No -Primary Dressing Applied Silvercel -Primary Dressing Covered/Secured with Dry Gauze & Roll Gauze, Secured with Tape -Silvercel 0 Right -Compression Wrap Cole Wrap Left -Compression Wrap Cole Wrap Pain Scale: 0-10 Numeric Is Patient Pain Free? Yes WC - Visit Discharge Discharge Condition Stable Ambulatory Status Wheelchair Transportation Private Auto Accompanied by NH attendent Medication Reconcilliation completed & Yes provided to patient/care provider Clinical Summary of Care Provided Yes Additional Wound Wound debrided: Left medial ankle/lower extremity Type of Debridement: Excisional debridement Anesthesia Used: 5% Lidocaine Gel Depth: Down to and including healthy tissue and in the subcutaneous layer Percentage of wound debrided: 100 Instrument Used: 5mm curette, #15 blade and Forceps Tissue Removed: Slough and devitalized tissue Severity: Fat Layer Exposed Amount of bleeding with debridement: Mild Bleeding Controlled with: Pressure Patient tolerated procedure: Patient tolerated procedure well Additional Wound Wound debrided: Right medial ankle/lower extremity Type of Debridement: Excisional debridement Anesthesia Used: 5% Lidocaine Gel Depth: Down to and including healthy tissue and in the subcutaneous layer Percentage of wound debrided: 100 Instrument Used: 5mm curette, #15 blade and Forceps Tissue Removed: Slough and devitalized tissue Severity: Fat Layer Exposed Amount of bleeding with debridement: Mild Bleeding Controlled with: Pressure Patient tolerated procedure: Patient tolerated procedure well Additional Wound Wound debrided: Right Posterior Leg ( Cluster ) Type of Debridement: Excisional debridement Anesthesia Used: 4% Lidocaine Solution Depth: Down to and including healthy tissue and in the subcutaneous layer Percentage of wound debrided: 100 Instrument Used: 7mm curette Tissue Removed: Slough and devitalized tissue Severity: Fat Layer Exposed Amount of bleeding with debridement: Mild Bleeding Controlled with: Pressure Patient tolerated procedure: Patient tolerated procedure well Additional Wound Wound debrided: Right Dorsal Foot Type of Debridement: Excisional debridement Anesthesia Used: 4% Lidocaine Solution Depth: Down to and including healthy tissue and in the subcutaneous layer Percentage of wound debrided: 100 Instrument Used: 7mm curette Tissue Removed: Slough and devitalized tissue Severity: Fat Layer Exposed Amount of bleeding with debridement: Mild Bleeding Controlled with: Pressure Patient tolerated procedure: Patient tolerated procedure well Additional Wound Wound debrided: Right Lateral Ankle/Foot Type of Debridement: Excisional debridement Anesthesia Used: 4% Lidocaine Solution Depth: Down to and including healthy tissue and in the subcutaneous layer Percentage of wound debrided: 100 Instrument Used: 5mm curette Tissue Removed: Slough and devitalized tissue Severity: Fat Layer Exposed Amount of bleeding with debridement: Mild Bleeding Controlled with: Pressure Patient tolerated procedure: Patient tolerated procedure well Assessment/Plan Assessment/Plan (1) Ulcer of right lower extremity with fat layer exposed: CODE(S): L97.912 - Non-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 (2) Ulcer of left lower extremity with fat layer exposed: CODE(S): L97.922 - Non-pressure chronic ulcer of unspecified part of left lower leg with fat layer exposed (3) Ulcer of right heel and midfoot with fat layer exposed: CODE(S): L97.412 - Non-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 No new concerns at this time. Continue silver alginate to all ulcers and cover with ABD. Change twice daily or more depending on drainage. Cole wrap to both extremities for edema management. Leg elevation, optimize protein and nutrition. Their questions were answered and they were advised to let us know if they have any further questions or concerns. Follow-up in 1 week or sooner if needed. This note was generated with [employer] dictation software. It may contain incorrect words, spelling, and punctuation that were not noted in checking the note before signing.
[2023-01-08 11:13] VITALS: BP 100/45; PULSE 66; RESP 16; TEMP 36.3
--- NOTE | 2023-01-08 12:33 | PCM.WC.PN ---
History of Present Illness Date of Service: 01/08/23 Chief Complaint: Nonhealing bilateral lower extremity ulcers History of Wound: Mr Wilson is an 82-year-old who was brought in here from his [facility] due to nonhealing bilateral lower extremity ulcers. Has had recurrent ulcerations for over 10 years with most recent episode being more severe late last year. He was seen at the emergency room and subsequently advised to follow-up at a wound center which he did at [facility] without any significant improvement. A month ago, he was hospitalized for sepsis secondary to bilateral lower extremity ulcers. Following his admission and hospital stay, he did not return to the prior wound center. He reports a lot of drainage from his ulcers. They have been inconsistent dressing changes at his facility. He feels well otherwise and denies chills, fever. Currently has a PICC line and he is on IV vancomycin and cephalosporin. Progress of Wound: New right leg ulcer likely from edema/blistering. Prior ulcers largely stable/improving. Objective Data Objective Data Vital Signs: Vital Signs Temp Pulse Resp BP O2 Del Method 97.3 F L 66 16 100/45 L Room Air 01/08/23 11:13 01/08/23 11:13 01/08/23 11:13 01/08/23 11:13 01/08/23 11:13 Oxygen Delivery Method Room Air Charges/Coding Procedures Integumentary 111xxx-113xx: [id number] Samina subq tissue 20 sq cm/< Add On Codes: 33375 Samina subq tissue add-on (x3. Additional square centimeter debrided, please refer to clinical note.) Physical Exam Const alert and no apparent distress General Appearance: cooperative and comfortable HEENT normocephalic, head/scalp atraumatic and hearing grossly normal bilaterally Head and Scalp: normal to inspection, normocephalic and atraumatic Eyes EOMs intact bilaterally Neck full ROM General: normal visual inspection Resp normal respiratory effort Effort and Inspection: able to speak in complete sentences Extremity General Extremity: deformity Skin Wounds: wounds noted Neuro CN's II-XII intact bilaterally, moves all extremities and no focal motor deficits Psych mental status grossly normal Appearance: grossly normal Attitude: calm Activity / Motor Behavior: appropriate eye contact Debridement Note Debridement Note Wound debrided: Left Lateral ankle/Lower extremity Type of Debridement: Excisional debridement Anesthesia Used: 5% Lidocaine Gel Depth: Down to and including healthy tissue and in the subcutaneous layer Percentage of wound debrided: 100 Instrument Used: 5mm curette Tissue Removed: Slough and devitalized tissue Severity: Fat Layer Exposed Amount of bleeding with debridement: Mild Bleeding Controlled with: Pressure Patient tolerated procedure: Patient tolerated procedure well Post-Debridement Measurements and Additional Note: Post-Debridement Measurements/Treatment SASHA - Nurse 1 - General Ulcer Assessment Start: 01/01/23 11:13 Freq: Status: Active Protocol: MARTA Activity Type Activity Date Activity User E-sign Co-sign Detail Recorded Client Recorded Date Recorded By Document 01/01/23 11:14 RB [id number] 01/01/23 11:28 RB Document 01/08/23 11:13 JF [id number] 01/08/23 11:32 JF 01/01/23 01/08/23 11:14 11:13 - Today's Visit Information Type of service Follow-up Visit Follow-up Visit (Physician/CARTOGRAPHY SUPERVISOR (Physician/CARTOGRAPHY SUPERVISOR ) ) Arrival Mode Wheelchair Wheelchair Transfer Assistance None Manual Accompanied by Froy Sequeira Patient Identification Verified (Name & Yes ) Patient Requires Transmission-Based No Precautions Vital Signs Temperature (97.8 F-99.1 F) 97.4 F L 97.3 F L Temperature Source Temporal Temporal Pulse Rate (60-100) 60 66 Pulse Location Monitor Monitor Respiratory Rate (12-18) 18 16 Respiratory rate source Observation Observation Oxygen Delivery Method Room Air Blood Pressure (90/60-120/80) 97/44 L 100/45 L Blood Pressure Mean (mm Hg) 61 63 Source Monitor Monitor Position Semi-Fowlers Sitting Blood Pressure Location Left Arm Left Arm History Since Last Visit- (Skip if this is Patient's initial visit) Have you changed medications since your No No last visit? Any new allergies or adverse reactions No No Had a fall/change in ADL's that may No No increase risk of falls Signs or symptoms of abuse and/or No No neglect since last visit Have you been in the hospital since your No No last visit? Has dressing in place as prescribed Yes Yes Has compression in place as prescribed Yes Yes Has offloadiing in place as prescribed No Experienced any changes in pain level or No management Left Footwear Surgical Shoe with pressure relief insole Right Footwear Surgical Shoe with pressure relief insole Pain Scale: 0-10 Numeric Is Patient Pain Free? Yes Yes WC - Nurse 1 - General Ulcer Measurement Start: 01/01/23 11:13 Freq: Status: Active Protocol: Activity Type Activity Date Activity User E-sign Co-sign Detail Recorded Client Recorded Date Recorded By Document 01/01/23 11:14 RB [id number] 01/01/23 11:28 RB Document 01/08/23 11:13 JF [id number] 01/08/23 11:32 JF 01/01/23 01/08/23 11:14 11:13 Wound Center Nurse 1 #10 right posterior LE -Combined with other wound No No -Current Size (cm) - Length 0.1 4.5 -Current Size (cm) - Width 0.1 2 -Current Size (cm) - Depth 0.1 0.1 -Total Square Cm 0.01 9.0 -Tunneling No -Undermining/Tunneling No -Circular Undermining No -Exudate Amt Medium Small -Exudate Type Serosanguineous -Wound Margin Distinct, Outline Attached -Granulation Amt Medium (34-66%) Large (67-100%) -Granulation Quality [place] Red -Slough/Fibrin Yes -Necrosis Amt Medium (34-66%) Small (1-33%) -Necrotic Tissue Type Adherent Slough Adherent Slough -Structure Exposed N/A -Texture (Yuliet-wound Skin Appearance) Assessed -Moisture ([place]ul[place]-wound Skin Appearance) Assessed -Color ([place]ul[place]-wound Skin Appearance) Assessed -Temperature ([place]ul[place]-wound Skin No Abnormality Appearance) (Pt Warm) -Tenderness on Palpation ([place]ul[place]-wound No Skin Appearance) -Ulcer Cleansing Wound Cleanser -Foul Odor after Cleansing No -Anesthetic Used 5% Lidocaine Gel #8 right lateral LE -Current Size (cm) - Length 3.3 -Current Size (cm) - Width 2.3 -Current Size (cm) - Depth 0.1 -Total Square Cm 7.59 -Exudate Amt Small -Wound Margin Distinct, Outline Attached -Granulation Amt Large (67-100%) -Granulation Quality Red -Necrosis Amt Small (1-33%) -Necrotic Tissue Type Adherent Slough -Texture (Yul[place]-wound Skin Appearance) Assessed -Moisture ([place]ul[place]-wound Skin Appearance) Assessed -Color ([place]ul[place]-wound Skin Appearance) Assessed -Temperature ([place]-wound Skin No Abnormality Appearance) (Pt Warm) -Ulcer Cleansing Soap and Water -Foul Odor after Cleansing No -Anesthetic Used 5% Lidocaine Gel #6 R DORSAL foot -Tunneling No -Undermining/Tunneling No -Circular Undermining No -Exudate Amt Medium -Exudate Type Serosanguineous #5 L Med foot -Combined with other wound No -Current Size (cm) - Length 1.6 -Current Size (cm) - Width 0.5 -Current Size (cm) - Depth 0.2 -Total Square Cm 0.80 -Date of Last Picture (Recall this 01/08/23 field) -Photo Taken Yes -Epithelialization Large 67-100% -Tunneling No -Undermining/Tunneling No -Circular Undermining No -Exudate Amt Medium Small -Exudate Type Serosanguineous -Wound Margin Distinct, Outline Attached -Granulation Amt Large (67-100%) -Granulation Quality [place] -Necrosis Amt Small (1-33%) -Necrotic Tissue Type Adherent Slough -Texture (Yuliet-wound Skin Appearance) Assessed -Moisture ([place]ul[place]-wound Skin Appearance) Assessed -Color ([place]ul[place]-wound Skin Appearance) Assessed -Temperature ([place]ul[place]-wound Skin No Abnormality Appearance) (Pt Warm) -Ulcer Cleansing Soap and Water -Anesthetic Used 5% Lidocaine Gel #4 L Lat Foot -Combined with other wound No -Current Size (cm) - Length 0.3 -Current Size (cm) - Width 0.5 -Current Size (cm) - Depth 0.2 -Total Square Cm 0.15 -Date of Last Picture (Recall this 01/08/23 field) -Photo Taken Yes -Exudate Amt Medium Small -Exudate Type Serosanguineous -Wound Margin Distinct, Outline Attached -Granulation Amt Large (67-100%) -Granulation Quality Pale -Necrosis Amt Small (1-33%) -Necrotic Tissue Type Adherent Slough -Texture (Yuliet-wound Skin Appearance) Assessed -Moisture ([place]uliet-wound Skin Appearance) Assessed -Color ([place]ul[place]-wound Skin Appearance) Assessed -Temperature ([place]ul[place]-wound Skin No Abnormality Appearance) (Pt Warm) -Ulcer Cleansing Soap and Water -Foul Odor after Cleansing No -Anesthetic Used 5% Lidocaine Gel #3 R Med Foot -Current Size (cm) - Length 1.5 -Current Size (cm) - Width 8.7 -Current Size (cm) - Depth 0.3 -Total Square Cm 13.05 -Date of Last Picture (Recall this 01/08/23 field) -Photo Taken Yes -Exudate Amt Medium -Exudate Type Serosanguineous -Granulation Amt Small (1-33%) -Granulation Quality [place] -Necrosis Amt Large (67-100%) -Necrotic Tissue Type Adherent Slough -Texture ([place]ul[place]-wound Skin Appearance) Assessed -Moisture ([place]ul[place]-wound Skin Appearance) Assessed -Color ([place]ul[place]-wound Skin Appearance) Assessed -Temperature ([place]ul[place]-wound Skin No Abnormality Appearance) (Pt Warm) -Ulcer Cleansing Soap and Water -Foul Odor after Cleansing No -Anesthetic Used 5% Lidocaine Gel #2 R Lat foot -Current Size (cm) - Length 1.5 -Current Size (cm) - Width 8.7 -Current Size (cm) - Depth 0.3 -Total Square Cm 13.05 -Exudate Amt Medium -Exudate Type Serosanguineous -Granulation Amt Large (67-100%) -Granulation Quality Red -Necrosis Amt Small (1-33%) -Necrotic Tissue Type Adherent Slough -Texture (Yuliet-wound Skin Appearance) Assessed -Moisture (Yuliet-wound Skin Appearance) Assessed -Color ([place]ul[place]-wound Skin Appearance) Assessed -Temperature ([place]ul[place]-wound Skin No Abnormality Appearance) (Pt Warm) -Ulcer Cleansing Soap and Water -Foul Odor after Cleansing No -Anesthetic Used 5% Lidocaine Gel Right Calf (cm) 34 Right Ankle (cm) 23.7 Left Calf (cm) 36.5 Left Ankle (cm) 23.6 WC - Nurse 2 - General Ulcer CM Notes Start: 01/01/23 11:13 Freq: Status: Active Protocol: Activity Type Activity Date Activity User E-sign Co-sign Detail Recorded Client Recorded Date Recorded By Document 01/01/23 11:49 MW [id number] 01/01/23 12:04 MW Document 01/08/23 11:41 MW [id number] 01/08/23 11:55 MW 01/01/23 01/08/23 11:49 11:41 Wound Center Nurse 2 #10 right posterior LE -Time 11:57 11:41 -Correct Patient Yes Yes -Correct Side, Site, Position Yes Yes -Correct Procedure Yes Yes -Procedure Performed Yes Yes -Type of Procedure Debridement Debridement -Clinical Debridement Subcutaneous Subcutaneous -Tissue Removed Subcutaneous Subcutaneous -Post Debridement (cm) - Length 7.0 6.0 -Post Debridement (cm) - Width 2.0 3.5 -Post Debridement (cm) - Depth 0.1 0.1 -Total Square (Post) (cm) 14.00 21.00 -Area of Debridement (cm) - Length 7.0 6.0 -Area of Debridement (cm) - Width 2.0 3.5 -Total Square (Area) (cm) 14.00 21.00 -Tunneling No No -Undermining/Tunneling No No -Circular Undermining No No -Wound/Ulcer Outcome Not Healed Not Healed -Ulcer Cleansing Rinsed/ Rinsed/ Irrigated with Irrigated with Saline Saline -Foul Odor after Cleansing No No -Bioengineered Tissue No No -Bleeding Controlled with Pressure Pressure -Treatment Response Procedure Procedure Tolerated Well Tolerated Well -Offloading No No -Debridement - Subq, 1st 20sq cm Yes Yes -Debridement, SubQ, ea addt'l 20sq cm 4 3 or part thereof #8 right lateral LE -Time 11:42 -Correct Patient Yes -Correct Side, Site, Position Yes -Correct Procedure Yes -Procedure Performed Yes -Type of Procedure Debridement -Clinical Debridement Subcutaneous -Tissue Removed Subcutaneous -Post Debridement (cm) - Length 4.2 -Post Debridement (cm) - Width 2.5 -Post Debridement (cm) - Depth 0.1 -Total Square (Post) (cm) 10.50 -Area of Debridement (cm) - Length 4.2 -Area of Debridement (cm) - Width 2.5 -Total Square (Area) (cm) 10.50 -Tunneling No -Undermining/Tunneling No -Circular Undermining No -Wound/Ulcer Outcome Not Healed -Ulcer Cleansing Rinsed/ Irrigated with Saline -Foul Odor after Cleansing No -Bioengineered Tissue No -Bleeding Controlled with Pressure -Treatment Response Procedure Tolerated Well -Offloading No -Debridement - Subq, 1st 20sq cm No #6 R DORSAL foot -Time 11:57 11:42 -Correct Patient Yes Yes -Correct Side, Site, Position Yes Yes -Correct Procedure Yes Yes -Procedure Performed Yes Yes -Type of Procedure Debridement Debridement -Clinical Debridement Subcutaneous Subcutaneous -Tissue Removed Subcutaneous Subcutaneous -Post Debridement (cm) - Length 1.5 2.0 -Post Debridement (cm) - Width 6.0 5.5 -Post Debridement (cm) - Depth 0.1 0.1 -Total Square (Post) (cm) 9.00 11.00 -Area of Debridement (cm) - Length 1.5 2.0 -Area of Debridement (cm) - Width 6.0 5.5 -Total Square (Area) (cm) 9.00 11.00 -Tunneling No No -Undermining/Tunneling No No -Circular Undermining No No -Wound/Ulcer Outcome Not Healed Not Healed -Ulcer Cleansing Rinsed/ Rinsed/ Irrigated with Irrigated with Saline Saline -Foul Odor after Cleansing No No -Bioengineered Tissue No No -Bleeding Controlled with Pressure Pressure -Treatment Response Procedure Procedure Tolerated Well Tolerated Well -Offloading No No -Debridement - Subq, 1st 20sq cm No No #5 L Med foot -Time 11:54 11:43 -Correct Patient Yes Yes -Correct Side, Site, Position Yes Yes -Correct Procedure Yes Yes -Procedure Performed Yes Yes -Type of Procedure Debridement Debridement -Clinical Debridement Subcutaneous Subcutaneous -Tissue Removed Subcutaneous Subcutaneous -Post Debridement (cm) - Length 0.6 2.0 -Post Debridement (cm) - Width 1.0 1.0 -Post Debridement (cm) - Depth 0.1 0.2 -Total Square (Post) (cm) 0.60 2.00 -Area of Debridement (cm) - Length 0.6 2.0 -Area of Debridement (cm) - Width 1.0 1.0 -Total Square (Area) (cm) 0.60 2.00 -Tunneling No No -Undermining/Tunneling No No -Circular Undermining No No -Wound/Ulcer Outcome Not Healed Not Healed -Ulcer Cleansing Rinsed/ Rinsed/ Irrigated with Irrigated with Saline Saline -Foul Odor after Cleansing No No -Bioengineered Tissue No No -Bleeding Controlled with Pressure Pressure -Treatment Response Procedure Procedure Tolerated Well Tolerated Well -Offloading No No -Debridement - Subq, 1st 20sq cm No No #4 L Lat Foot -Time 11:55 11:43 -Correct Patient Yes Yes -Correct Side, Site, Position Yes Yes -Correct Procedure Yes Yes -Procedure Performed Yes Yes -Type of Procedure Debridement Debridement -Clinical Debridement Subcutaneous Subcutaneous -Tissue Removed Subcutaneous Subcutaneous -Post Debridement (cm) - Length 0.4 0.7 -Post Debridement (cm) - Width 0.8 0.5 -Post Debridement (cm) - Depth 0.1 0.2 -Total Square (Post) (cm) 0.32 0.35 -Area of Debridement (cm) - Length 0.4 0.7 -Area of Debridement (cm) - Width 0.8 0.5 -Total Square (Area) (cm) 0.32 0.35 -Tunneling No No -Undermining/Tunneling No No -Circular Undermining No No -Wound/Ulcer Outcome Not Healed Not Healed -Ulcer Cleansing Rinsed/ Rinsed/ Irrigated with Irrigated with Saline Saline -Foul Odor after Cleansing No No -Bioengineered Tissue No No -Bleeding Controlled with Pressure Pressure -Treatment Response Procedure Procedure Tolerated Well Tolerated Well -Offloading No No -Debridement - Subq, 1st 20sq cm No No #3 R Med Foot -Time 11:55 11:43 -Correct Patient Yes Yes -Correct Side, Site, Position Yes Yes -Correct Procedure Yes Yes -Procedure Performed Yes Yes -Type of Procedure Debridement Debridement -Clinical Debridement Subcutaneous Subcutaneous -Tissue Removed Subcutaneous Subcutaneous -Post Debridement (cm) - Length 1.5 2.5 -Post Debridement (cm) - Width 9.0 7.5 -Post Debridement (cm) - Depth 0.2 0.3 -Total Square (Post) (cm) 13.50 18.75 -Area of Debridement (cm) - Length 1.5 2.5 -Area of Debridement (cm) - Width 9.0 7.5 -Total Square (Area) (cm) 13.50 18.75 -Tunneling No No -Undermining/Tunneling No No -Circular Undermining No No -Wound/Ulcer Outcome Not Healed Not Healed -Ulcer Cleansing Rinsed/ Rinsed/ Irrigated with Irrigated with Saline Saline -Foul Odor after Cleansing No No -Bioengineered Tissue No No -Bleeding Controlled with Pressure Pressure -Treatment Response Procedure Procedure Tolerated Well Tolerated Well -Offloading No No -Debridement - Subq, 1st 20sq cm No No #2 R Lat foot -Time 11:56 11:44 -Correct Patient Yes Yes -Correct Side, Site, Position Yes Yes -Correct Procedure Yes Yes -Procedure Performed Yes Yes -Type of Procedure Debridement Debridement -Clinical Debridement Subcutaneous Subcutaneous -Tissue Removed Subcutaneous Subcutaneous -Post Debridement (cm) - Length 4.5 1.5 -Post Debridement (cm) - Width 10.0 9.2 -Post Debridement (cm) - Depth 0.1 0.1 -Total Square (Post) (cm) 45.00 13.80 -Area of Debridement (cm) - Length 4.5 1.5 -Area of Debridement (cm) - Width 10.0 9.2 -Total Square (Area) (cm) 45.00 13.80 -Tunneling No No -Undermining/Tunneling No No -Circular Undermining No No -Wound/Ulcer Outcome Not Healed Not Healed -Ulcer Cleansing Rinsed/ Rinsed/ Irrigated with Irrigated with Saline Saline -Foul Odor after Cleansing No No -Bioengineered Tissue No No -Bleeding Controlled with Pressure Pressure -Treatment Response Procedure Procedure Tolerated Well Tolerated Well -Offloading No No -Debridement - Subq, 1st 20sq cm No No Pain Scale: 0-10 Numeric Is Patient Pain Free? Yes Yes WC - Nurse 3 - General Ulcer D/C NN Start: 01/01/23 11:13 Freq: Status: Active Protocol: Activity Type Activity Date Activity User E-sign Co-sign Detail Recorded Client Recorded Date Recorded By Document 01/01/23 12:10 [id number] 01/01/23 12:11 Document 01/08/23 12:17 JUAN RAMON [id number] 01/08/23 12:18 01/01/23 01/08/23 12:10 12:17 Wound Care Center Nurse 3 #10 right posterior LE -Ulcer Cleansing Wound Cleanser Rinsed/ Irrigated with Saline -Foul Odor after Cleansing No No -Primary Dressing Applied Silvercel Silvercel -Primary Dressing Covered/Secured with Dry Gauze & Dry Gauze & Roll Gauze Roll Gauze -Silvercel 2 1 #8 right lateral LE -Ulcer Cleansing Rinsed/ Irrigated with Saline -Foul Odor after Cleansing No -Primary Dressing Applied Silvercel -Primary Dressing Covered/Secured with Dry Gauze & Roll Gauze, Secured with Tape -[place]cel 0 #6 R DORSAL foot -Ulcer Cleansing Rinsed/ Rinsed/ Irrigated with Irrigated with Saline Saline -Foul Odor after Cleansing No No -Primary Dressing Applied Silvercel Silvercel -Primary Dressing Covered/Secured with Dry Gauze & Dry Gauze & Roll Gauze, Roll Gauze, Secured with Secured with Tape Tape -[place] 0 0 #5 L Med foot -Ulcer Cleansing Rinsed/ Rinsed/ Irrigated with Irrigated with Saline Saline -Foul Odor after Cleansing No No -Primary Dressing Applied Silvercel Silvercel -Primary Dressing Covered/Secured with Dry Gauze & Dry Gauze,Dry Roll Gauze, Gauze & Roll Secured with Gauze,Secured Tape with Tape -[place] 0 0 #4 L Lat Foot -Ulcer Cleansing Rinsed/ Rinsed/ Irrigated with Irrigated with Saline Saline -Foul Odor after Cleansing No No -Primary Dressing Applied Silvercel Silvercel -Primary Dressing Covered/Secured with Dry Gauze & Dry Gauze & Roll Gauze, Roll Gauze, Secured with Secured with Tape Tape -[place] 0 0 #3 R Med Foot -Ulcer Cleansing Rinsed/ Rinsed/ Irrigated with Irrigated with Saline Saline -Foul Odor after Cleansing No No -Primary Dressing Applied Silvercel Silvercel -Primary Dressing Covered/Secured with Dry Gauze & Dry Gauze & Roll Gauze, Roll Gauze, Secured with Secured with Tape Tape -[place]cel 0 0 #2 R Lat foot -Ulcer Cleansing Rinsed/ Rinsed/ Irrigated with Irrigated with Saline Saline -Foul Odor after Cleansing No No -Primary Dressing Applied Silvercel Silvercel -Primary Dressing Covered/Secured with Dry Gauze & Dry Gauze & Roll Gauze, Roll Gauze, Secured with Secured with Tape Tape -Silvercel 0 0 Right -Compression Wrap Cole Wrap Cole Wrap Left -Compression Wrap Cole Wrap Cole Wrap Pain Scale: 0-10 Numeric Is Patient Pain Free? Yes Yes WC - Visit Discharge Discharge Condition Stable Stable Ambulatory Status Wheelchair Walker, Wheelchair Transportation Private Auto Private Auto Accompanied by NH attendent Medication Reconcilliation completed & Yes Yes provided to patient/care provider Clinical Summary of Care Provided Yes Yes Additional Wound Wound debrided: Left medial ankle/lower extremity Type of Debridement: Excisional debridement Anesthesia Used: 5% Lidocaine Gel Depth: Down to and including healthy tissue and in the subcutaneous layer Percentage of wound debrided: 100 Instrument Used: 5mm curette Tissue Removed: Slough and devitalized tissue Severity: Fat Layer Exposed Amount of bleeding with debridement: Mild Bleeding Controlled with: Pressure Patient tolerated procedure: Patient tolerated procedure well Additional Wound Wound debrided: Right medial ankle/lower extremity Type of Debridement: Excisional debridement Anesthesia Used: 5% Lidocaine Gel Depth: Down to and including healthy tissue and in the subcutaneous layer Percentage of wound debrided: 100 Instrument Used: 5mm curette Tissue Removed: Slough and devitalized tissue Severity: Fat Layer Exposed Amount of bleeding with debridement: Mild Bleeding Controlled with: Pressure Patient tolerated procedure: Patient tolerated procedure well Additional Wound Wound debrided: Right Posterior Leg ( Cluster ) Type of Debridement: Excisional debridement Anesthesia Used: 4% Lidocaine Solution Depth: Down to and including healthy tissue and in the subcutaneous layer Percentage of wound debrided: 100 Instrument Used: 5mm curette Tissue Removed: Slough and devitalized tissue Severity: Fat Layer Exposed Amount of bleeding with debridement: Mild Bleeding Controlled with: Pressure Patient tolerated procedure: Patient tolerated procedure well Additional Wound Wound debrided: Right Lateral leg Type of Debridement: Excisional debridement Anesthesia Used: 5% Lidocaine Gel Depth: Down to and including healthy tissue and in the subcutaneous layer Percentage of wound debrided: 100 Instrument Used: 5mm curette Tissue Removed: Slough and devitalized tissue Severity: Fat Layer Exposed Amount of bleeding with debridement: Mild Bleeding Controlled with: Pressure Patient tolerated procedure: Patient tolerated procedure well Additional Wound Wound debrided: Right Dorsal Foot Type of Debridement: Excisional debridement Anesthesia Used: 4% Lidocaine Solution Depth: Down to and including healthy tissue and in the subcutaneous layer Percentage of wound debrided: 100 Instrument Used: 7mm curette Tissue Removed: Slough and devitalized tissue Severity: Fat Layer Exposed Amount of bleeding with debridement: Mild Bleeding Controlled with: Pressure Patient tolerated procedure: Patient tolerated procedure well Additional Wound Wound debrided: Right Lateral Ankle/Foot Type of Debridement: Excisional debridement Anesthesia Used: 4% Lidocaine Solution Depth: Down to and including healthy tissue and in the subcutaneous layer Percentage of wound debrided: 100 Instrument Used: 5mm curette Tissue Removed: Slough and devitalized tissue Severity: Fat Layer Exposed Amount of bleeding with debridement: Mild Bleeding Controlled with: Pressure Patient tolerated procedure: Patient tolerated procedure well Assessment/Plan Assessment/Plan (1) Ulcer of right lower extremity with fat layer exposed: CODE(S): L97.912 - Non-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 (2) Ulcer of left lower extremity with fat layer exposed: CODE(S): L97.922 - Non-pressure chronic ulcer of unspecified part of left lower leg with fat layer exposed (3) Ulcer of right heel and midfoot with fat layer exposed: CODE(S): L97.412 - Non-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 Overall, seems to be making progress. Continue silver alginate to all ulcers and cover with ABD. Change twice daily or more depending on drainage. Cole wrap to both extremities for edema management, still has significant edema. Leg elevation, optimize protein and nutrition. Their questions were answered and they were advised to let us know if they have any further questions or concerns. Follow-up in 2 weeks or sooner if needed. This note was generated with [employer] dictation software. It may contain incorrect words, spelling, and punctuation that were not noted in checking the note before signing.
== END 2023-01-26 23:59 | disposition home or self-care (01) ==
LOC: WC 11:00
PROVIDERS: PCP Family Medicine; Referring Provider Family Medicine; Visit Provider Internal Medicine
DX: L97.922 Non-pressure chronic ulcer of unspecified part of left lower leg with fat layer exposed (principal); L97.912 Non-pressure chronic ulcer of unspecified part of right lower leg with fat layer exposed; L97.412 Non-pressure chronic ulcer of right heel and midfoot with fat layer exposed; I73.9 Peripheral vascular disease, unspecified; G62.9 Polyneuropathy, unspecified; R60.0 Localized edema; R53.81 Other malaise
CPT/HCPCS: 11042; 11045

== ENCOUNTER 2023-02-26 10:15 | Outpatient (RCR) | payer MEDICARE, BC, SELFPAY ==
[2023-01-27 00:29] VITALS: BP 100/45; PULSE 66; RESP 16; TEMP 36.3
[2023-02-05 11:27] VITALS: BP 110/42; PULSE 67; RESP 16; TEMP 36.1
--- NOTE | 2023-02-05 12:56 | PCM.WC.PN ---
History of Present Illness Date of Service: 02/05/23 Chief Complaint: Nonhealing bilateral lower extremity ulcers History of Wound: Mr Wilson is an 82-year-old who was brought in here from his halfway due to nonhealing bilateral lower extremity ulcers. Has had recurrent ulcerations for over 10 years with most recent episode being more severe late last year. He was seen at the emergency room and subsequently advised to follow-up at a wound center which he did at [facility] without any significant improvement. A month ago, he was hospitalized for sepsis secondary to bilateral lower extremity ulcers. Following his admission and hospital stay, he did not return to the prior wound center. He reports a lot of drainage from his ulcers. They have been inconsistent dressing changes at his facility. He feels well otherwise and denies chills, fever. Currently has a PICC line and he is on IV vancomycin and cephalosporin. Progress of Wound: Has not been seen here in a few weeks. No new concerns reported.. Most of the ulcers are largely stable with left lateral foot healed. Right medial foot with some worsening. He feels well. Objective Data Objective Data Vital Signs: Vital Signs Temp Pulse Resp BP O2 Del Method 97 F L 67 16 110/42 L Room Air 02/05/23 11:27 02/05/23 11:27 02/05/23 11:27 02/05/23 11:27 02/05/23 11:27 Oxygen Delivery Method Room Air Charges/Coding Procedures Integumentary 111xxx-113xx: 24082 Samina subq tissue 20 sq cm/< Add On Codes: 78631 Samina subq tissue add-on (x3. Additional square centimeter debrided, please refer to clinical note.) Physical Exam Const alert and no apparent distress General Appearance: cooperative and comfortable HEENT normocephalic, head/scalp atraumatic and hearing grossly normal bilaterally Head and Scalp: normal to inspection, normocephalic and atraumatic Neck full ROM General: normal visual inspection Resp normal respiratory effort Effort and Inspection: able to speak in complete sentences Extremity General Extremity: deformity Skin Wounds: wounds noted Neuro CN's II-XII intact bilaterally, moves all extremities and no focal motor deficits Psych mental status grossly normal Appearance: grossly normal Attitude: calm Activity / Motor Behavior: appropriate eye contact Debridement Note Debridement Note Wound debrided: Left Lateral ankle/Lower extremity Type of Debridement: Selective debridement Anesthesia Used: 5% Lidocaine Gel Depth: Down to and including healthy tissue Percentage of wound debrided: 100 Instrument Used: 3mm curette Tissue Removed: Devitalized tissue Severity: Limited To Skin Breakdown Amount of bleeding with debridement: None Bleeding Controlled with: Pressure Patient tolerated procedure: Patient tolerated procedure well Post-Debridement Measurements and Additional Note: Post-Debridement Measurements/Treatment - Nurse 1 - General Ulcer Assessment Start: 02/05/23 11:27 Freq: Status: Active Protocol: MARTA Activity Type Activity Date Activity User E-sign Co-sign Detail Recorded Client Recorded Date Recorded By Document 02/05/23 11:27 [facility] [id number] 02/05/23 11:41 [facility] 02/05/23 11:27 - Today's Visit Information Type of service Follow-up Visit (Physician/[facility]ROLLER ) Arrival Mode Wheelchair Transfer Assistance Other Transfer Assist (Other) 2 Accompanied by caregiver Patient Identification Verified (Name & Yes ) Patient Requires Transmission-Based No Precautions Vital Signs Temperature (97.8 F-99.1 F) 97 F L Temperature Source Temporal Pulse Rate (60-100) 67 Pulse Location Monitor Respiratory Rate (12-18) 16 Respiratory rate source Observation Oxygen Delivery Method Room Air Blood Pressure (90/60-120/80) 110/42 L Blood Pressure Mean (mm Hg) 64 Source Monitor Position Sitting Blood Pressure Location Left Arm Pain Scale: 0-10 Numeric Is Patient Pain Free? Yes Adina Nurse 1 - General Ulcer Measurement Start: 02/05/23 11:27 Freq: Status: Active Protocol: Activity Type Activity Date Activity User E-sign Co-sign Detail Recorded Client Recorded Date Recorded By Document 02/05/23 11:27 [facility] [id number] 02/05/23 11:41 [facility] 02/05/23 11:27 Wound Center Nurse 1 #10 right posterior LE -Combined with other wound No -Current Size (cm) - Length 0 -Current Size (cm) - Width 0 -Current Size (cm) - Depth 0 -Total Square Cm 0 -Date of Last Picture (Recall this 02/05/23 field) -Photo Taken Yes -Epithelialization Large 67-100% -Texture (Yuliet-wound Skin Appearance) Assessed -Moisture (Yuliet-wound Skin Appearance) Assessed,Dry/ Scaly -Color (Yuliet-wound Skin Appearance) Assessed, Hemosiderin Staining -Temperature (Yuliet-wound Skin No Abnormality Appearance) (Pt Warm) -Tenderness on Palpation (Yuliet-wound No Skin Appearance) -Ulcer Cleansing Soap and Water -Foul Odor after Cleansing No #8 right lateral LE -Combined with other wound No -Current Size (cm) - Length 0.1 -Current Size (cm) - Width 0.1 -Current Size (cm) - Depth 0.1 -Total Square Cm 0.01 -Date of Last Picture (Recall this 02/05/23 field) -Photo Taken Yes -Exudate Amt Medium -Exudate Type Serosanguineous -Wound Margin Distinct, Outline Attached -Granulation Amt Large (67-100%) -Granulation Quality Red -Slough/Fibrin Yes -Necrosis Amt Small (1-33%) -Necrotic Tissue Type Adherent Slough -Texture (Yuliet-wound Skin Appearance) Assessed, Scarring -Moisture (Yuliet-wound Skin Appearance) Assessed -Color (Yuliet-wound Skin Appearance) Assessed -Temperature (Yuliet-wound Skin No Abnormality Appearance) (Pt Warm) -Tenderness on Palpation (Yuliet-wound No Skin Appearance) -Ulcer Cleansing Soap and Water -Foul Odor after Cleansing No -Anesthetic Used 4% Lidocaine Solution #6 R DORSAL foot -Combined with other wound No -Current Size (cm) - Length 0.1 -Current Size (cm) - Width 0.1 -Current Size (cm) - Depth 0.1 -Total Square Cm 0.01 -Date of Last Picture (Recall this 02/05/23 field) -Photo Taken Yes -Epithelialization None Present -Tunneling No -Undermining/Tunneling No -Circular Undermining No -Exudate Amt Medium -Exudate Type Serosanguineous -Wound Margin Distinct, Outline Attached -Granulation Amt None Present (0 %) -Slough/Fibrin Yes -Necrosis Amt Large (67-100%) -Necrotic Tissue Type Adherent Slough -Texture (Yuliet-wound Skin Appearance) Assessed, Scarring -Moisture (Yuliet-wound Skin Appearance) Assessed -Color (Yuliet-wound Skin Appearance) Assessed, Erythema -Temperature (Yuliet-wound Skin No Abnormality Appearance) (Pt Warm) -Tenderness on Palpation (Yuliet-wound No Skin Appearance) -Ulcer Cleansing Soap and Water -Foul Odor after Cleansing No -Anesthetic Used 4% Lidocaine Solution #5 L Med foot -Combined with other wound No -Current Size (cm) - Length 0.1 -Current Size (cm) - Width 0.1 -Current Size (cm) - Depth 0.1 -Total Square Cm 0.01 -Date of Last Picture (Recall this 02/05/23 field) -Photo Taken Yes -Epithelialization None Present -Tunneling No -Undermining/Tunneling No -Circular Undermining No -Exudate Amt Medium -Exudate Type Serosanguineous -Wound Margin Distinct, Outline Attached -Granulation Amt None Present (0 %) -Slough/Fibrin Yes -Necrosis Amt Large (67-100%) -Necrotic Tissue Type Adherent Slough -Texture (Yuliet-wound Skin Appearance) Assessed, Scarring -Moisture (Yuliet-wound Skin Appearance) Assessed -Color (Yuliet-wound Skin Appearance) Assessed -Temperature (Yuliet-wound Skin No Abnormality Appearance) (Pt Warm) -Tenderness on Palpation (Yuliet-wound No Skin Appearance) -Ulcer Cleansing Rinsed/ Irrigated with Saline -Foul Odor after Cleansing No -Anesthetic Used 4% Lidocaine Solution #4 L Lat Foot -Combined with other wound No -Current Size (cm) - Length 0.1 -Current Size (cm) - Width 0.1 -Current Size (cm) - Depth 0.1 -Total Square Cm 0.01 -Date of Last Picture (Recall this 02/05/23 field) -Photo Taken Yes -Epithelialization Medium 34-66% -Tunneling No -Undermining/Tunneling No -Circular Undermining No -Exudate Amt None Present -Wound Margin Distinct, Outline Attached -Granulation Amt None Present (0 %) -Slough/Fibrin Yes -Necrosis Amt Large (67-100%) -Necrotic Tissue Type Adherent Slough -Texture (Yuliet-wound Skin Appearance) Assessed, Scarring -Moisture (Yuliet-wound Skin Appearance) Assessed,Dry/ Scaly -Color (Yuliet-wound Skin Appearance) Assessed -Temperature (Yuliet-wound Skin No Abnormality Appearance) (Pt Warm) -Tenderness on Palpation (Yuliet-wound No Skin Appearance) -Ulcer Cleansing Soap and Water -Foul Odor after Cleansing No -Anesthetic Used 4% Lidocaine Solution #3 R Med Foot -Combined with other wound No -Current Size (cm) - Length 0.1 -Current Size (cm) - Width 0.1 -Current Size (cm) - Depth 0.1 -Total Square Cm 0.01 -Date of Last Picture (Recall this 02/05/23 field) -Photo Taken Yes -Epithelialization None Present -Tunneling No -Undermining/Tunneling No -Circular Undermining No -Exudate Amt Medium -Exudate Type Serosanguineous -Wound Margin Distinct, Outline Attached -Granulation Amt None Present (0 %) -Slough/Fibrin Yes -Necrosis Amt Large (67-100%) -Necrotic Tissue Type Adherent Slough -Texture (Yuliet-wound Skin Appearance) Assessed, Scarring -Moisture (Yuliet-wound Skin Appearance) Assessed, Maceration -Color (Yuliet-wound Skin Appearance) Assessed -Temperature (Yuliet-wound Skin No Abnormality Appearance) (Pt Warm) -Tenderness on Palpation (Yuliet-wound No Skin Appearance) -Ulcer Cleansing Soap and Water -Foul Odor after Cleansing No -Anesthetic Used 4% Lidocaine Solution #2 R Lat foot -Combined with other wound No -Current Size (cm) - Length 0.1 -Current Size (cm) - Width 0.1 -Current Size (cm) - Depth 0.1 -Total Square Cm 0.01 -Date of Last Picture (Recall this 02/05/23 field) -Photo Taken Yes -Epithelialization None Present -Tunneling No -Undermining/Tunneling No -Circular Undermining No -Exudate Amt Medium -Exudate Type Serosanguineous -Wound Margin Distinct, Outline Attached -Granulation Amt None Present (0 %) -Slough/Fibrin Yes -Necrosis Amt Large (67-100%) -Necrotic Tissue Type Adherent Slough -Texture (Yuliet-wound Skin Appearance) Assessed, Scarring -Moisture (Yuliet-wound Skin Appearance) Assessed -Color (Yuliet-wound Skin Appearance) Assessed -Temperature (Yuliet-wound Skin No Abnormality Appearance) (Pt Warm) -Tenderness on Palpation (Yuliet-wound No Skin Appearance) -Ulcer Cleansing Soap and Water -Foul Odor after Cleansing No -Anesthetic Used 4% Lidocaine Solution WC - Nurse 2 - General Ulcer CM Notes Start: 02/05/23 11:27 Freq: Status: Active Protocol: Activity Type Activity Date Activity User E-sign Co-sign Detail Recorded Client Recorded Date Recorded By Document 02/05/23 12:04 MW [id number] 02/05/23 12:14 MW 02/05/23 12:04 Wound Center Nurse 2 #10 right posterior LE -Time 12:04 -Correct Patient Yes -Correct Side, Site, Position Yes -Correct Procedure Yes -Procedure Performed No -Post Debridement (cm) - Length 0 -Post Debridement (cm) - Width 0 -Total Square (Post) (cm) 0 -Wound/Ulcer Outcome Healed- Epithelialized #8 right lateral LE -Time 12:04 -Correct Patient Yes -Correct Side, Site, Position Yes -Correct Procedure Yes -Procedure Performed Yes -Type of Procedure Debridement -Clinical Debridement Subcutaneous -Tissue Removed Subcutaneous -Post Debridement (cm) - Length 6.0 -Post Debridement (cm) - Width 1.3 -Post Debridement (cm) - Depth 0.1 -Total Square (Post) (cm) 7.80 -Area of Debridement (cm) - Length 6.0 -Area of Debridement (cm) - Width 1.3 -Total Square (Area) (cm) 7.80 -Tunneling No -Undermining/Tunneling No -Circular Undermining No -Wound/Ulcer Outcome Not Healed -Ulcer Cleansing Rinsed/ Irrigated with Saline -Foul Odor after Cleansing No -Bioengineered Tissue No -Bleeding Controlled with Pressure -Treatment Response Procedure Tolerated Well -Offloading No -Debridement - Subq, 1st 20sq cm Yes -Debridement, SubQ, ea addt'l 20sq cm 3 or part thereof #6 R DORSAL foot -Time 12:04 -Correct Patient Yes -Correct Side, Site, Position Yes -Correct Procedure Yes -Procedure Performed Yes -Type of Procedure Debridement -Clinical Debridement Subcutaneous -Tissue Removed Subcutaneous -Post Debridement (cm) - Length 2.5 -Post Debridement (cm) - Width 6.0 -Post Debridement (cm) - Depth 0.2 -Total Square (Post) (cm) 15.00 -Area of Debridement (cm) - Length 2.5 -Area of Debridement (cm) - Width 6.0 -Total Square (Area) (cm) 15.00 -Tunneling No -Undermining/Tunneling No -Circular Undermining No -Wound/Ulcer Outcome Not Healed -Ulcer Cleansing Rinsed/ Irrigated with Saline -Foul Odor after Cleansing No -Bioengineered Tissue No -Bleeding Controlled with Pressure -Treatment Response Procedure Tolerated Well -Offloading No -Debridement - Subq, 1st 20sq cm No #5 L Med foot -Time 12:05 -Correct Patient Yes -Correct Side, Site, Position Yes -Correct Procedure Yes -Procedure Performed Yes -Type of Procedure Debridement -Clinical Debridement Subcutaneous -Tissue Removed Subcutaneous -Post Debridement (cm) - Length 1.0 -Post Debridement (cm) - Width 1.0 -Post Debridement (cm) - Depth 0.2 -Total Square (Post) (cm) 1.00 -Area of Debridement (cm) - Length 1.0 -Area of Debridement (cm) - Width 1.0 -Total Square (Area) (cm) 1.00 -Tunneling No -Undermining/Tunneling No -Circular Undermining No -Wound/Ulcer Outcome Not Healed -Ulcer Cleansing Rinsed/ Irrigated with Saline -Foul Odor after Cleansing No -Bioengineered Tissue No -Bleeding Controlled with Pressure -Treatment Response Procedure Tolerated Well -Offloading No -Debridement - Subq, 20sq cm No #4 L Lat Foot -Time 12:05 -Correct Patient Yes -Correct Side, Site, Position Yes -Correct Procedure Yes -Procedure Performed Yes -Type of Procedure Debridement -Clinical Debridement Subcutaneous -Tissue Removed Subcutaneous -Post Debridement (cm) - Length 0.1 -Post Debridement (cm) - Width 0.1 -Post Debridement (cm) - Depth 0.1 -Total Square (Post) (cm) 0.01 -Area of Debridement (cm) - Length 0.1 -Area of Debridement (cm) - Width 0.1 -Total Square (Area) (cm) 0.01 -Tunneling No -Undermining/Tunneling No -Circular Undermining No -Wound/Ulcer Outcome Not Healed -Ulcer Cleansing Rinsed/ Irrigated with Saline -Foul Odor after Cleansing No -Bioengineered Tissue No -Bleeding Controlled with Pressure -Treatment Response Procedure Tolerated Well -Offloading No -Debridement - Subq, 1st 20sq cm No #3 R Med Foot -Time 12:05 -Correct Patient Yes -Correct Side, Site, Position Yes -Correct Procedure Yes -Procedure Performed Yes -Type of Procedure Debridement -Clinical Debridement Subcutaneous -Tissue Removed Subcutaneous -Post Debridement (cm) - Length 2.5 -Post Debridement (cm) - Width 10.0 -Post Debridement (cm) - Depth 0.3 -Total Square (Post) (cm) 25.00 -Area of Debridement (cm) - Length 2.5 -Area of Debridement (cm) - Width 10.0 -Total Square (Area) (cm) 25.00 -Tunneling No -Undermining/Tunneling No -Circular Undermining No -Wound/Ulcer Outcome Not Healed -Ulcer Cleansing Rinsed/ Irrigated with Saline -Foul Odor after Cleansing No -Bioengineered Tissue No -Bleeding Controlled with Pressure -Treatment Response Procedure Tolerated Well -Offloading No -Debridement - Subq, 1st 20sq cm No #2 R Lat foot -Time 12:06 -Correct Patient Yes -Correct Side, Site, Position Yes -Correct Procedure Yes -Procedure Performed Yes -Type of Procedure Debridement -Clinical Debridement Subcutaneous -Tissue Removed Subcutaneous -Post Debridement (cm) - Length 3.0 -Post Debridement (cm) - Width 7.0 -Post Debridement (cm) - Depth 0.2 -Total Square (Post) (cm) 21.00 -Area of Debridement (cm) - Length 3.0 -Area of Debridement (cm) - Width 7.0 -Total Square (Area) (cm) 21.00 -Tunneling No -Undermining/Tunneling No -Circular Undermining No -Wound/Ulcer Outcome Not Healed -Ulcer Cleansing Rinsed/ Irrigated with Saline -Foul Odor after Cleansing No -Bioengineered Tissue No -Bleeding Controlled with Pressure -Treatment Response Procedure Tolerated Well -Offloading No -Debridement - Subq, 1st 20sq cm No Pain Scale: 0-10 Numeric Is Patient Pain Free? Yes WC - Nurse 3 - General Ulcer D/C NN Start: 02/05/23 11:27 Freq: Status: Active Protocol: Activity Type Activity Date Activity User E-sign Co-sign Detail Recorded Client Recorded Date Recorded By Document 02/05/23 12:19 [facility] [id number] 02/05/23 12:21 [facility] 02/05/23 12:19 Wound Care Center Nurse 3 #8 right lateral LE -Ulcer Cleansing Rinsed/ Irrigated with Saline -Foul Odor after Cleansing No -Primary Dressing Applied Silvercel -Other Dressing ABD, PER JF RN -Primary Dressing Covered/Secured with Dry Gauze & Roll Gauze, Secured with Tape -Silvercel 2 #6 R DORSAL foot -Ulcer Cleansing Rinsed/ Irrigated with Saline -Foul Odor after Cleansing No -Primary Dressing Applied Silvercel -Other Dressing ABD; PER RN -Primary Dressing Covered/Secured with Dry Gauze & Roll Gauze, Secured with Tape -Silvercel 0 #5 L Med foot -Ulcer Cleansing Rinsed/ Irrigated with Saline -Foul Odor after Cleansing No -Primary Dressing Applied Silvercel -Other Dressing ABD; PER RN -Primary Dressing Covered/Secured with Dry Gauze & Roll Gauze, Secured with Tape -Silvercel 0 #4 L Lat Foot -Ulcer Cleansing Rinsed/ Irrigated with Saline -Foul Odor after Cleansing No -Primary Dressing Applied Silvercel -Other Dressing ABD; PER RN -Primary Dressing Covered/Secured with Dry Gauze & Roll Gauze, Secured with Tape -Silvercel 0 #3 R Med Foot -Ulcer Cleansing Rinsed/ Irrigated with Saline -Foul Odor after Cleansing No -Primary Dressing Applied Silvercel -Other Dressing ABD, PER RN -Primary Dressing Covered/Secured with Dry Gauze & Roll Gauze, Secured with Tape -Silvercel 0 #2 R Lat foot -Ulcer Cleansing Soap and Water -Foul Odor after Cleansing No -Primary Dressing Applied Silvercel -Other Dressing ABD, PER RN -Primary Dressing Covered/Secured with Dry Gauze & Roll Gauze, Secured with Tape -Silvercel 0 BLE -Compression Wrap Cole Wrap Treatment Response Procedure Tolerated Well Pain Scale: 0-10 Numeric Is Patient Pain Free? Yes WC - Visit Discharge Discharge Condition Stable Ambulatory Status Wheelchair Transportation Private Auto Accompanied by C[facility]GIVER FROM [facility] Facility Type [facility] Additional Wound Wound debrided: Left medial ankle/lower extremity Type of Debridement: Excisional debridement Anesthesia Used: 5% Lidocaine Gel Depth: Down to and including healthy tissue and in the subcutaneous layer Percentage of wound debrided: 100 Instrument Used: 5mm curette Tissue Removed: Slough and devitalized tissue Severity: Fat Layer Exposed Amount of bleeding with debridement: Mild Bleeding Controlled with: Pressure Patient tolerated procedure: Patient tolerated procedure well Additional Wound Wound debrided: Right medial ankle/lower extremity Type of Debridement: Excisional debridement Anesthesia Used: 5% Lidocaine Gel Depth: Down to and including healthy tissue and in the subcutaneous layer Percentage of wound debrided: 100 Instrument Used: 5mm curette Tissue Removed: Slough and devitalized tissue Severity: Fat Layer Exposed Amount of bleeding with debridement: Mild Bleeding Controlled with: Pressure Patient tolerated procedure: Patient tolerated procedure well Additional Wound Wound debrided: Right Lateral leg Type of Debridement: Excisional debridement Anesthesia Used: 5% Lidocaine Gel Depth: Down to and including healthy tissue and in the subcutaneous layer Percentage of wound debrided: 100 Instrument Used: 5mm curette Tissue Removed: Slough and devitalized tissue Severity: Fat Layer Exposed Amount of bleeding with debridement: Mild Bleeding Controlled with: Pressure Patient tolerated procedure: Patient tolerated procedure well Additional Wound Wound debrided: Right Dorsal Foot Type of Debridement: Excisional debridement Anesthesia Used: 4% Lidocaine Solution Depth: Down to and including healthy tissue and in the subcutaneous layer Percentage of wound debrided: 100 Instrument Used: 7mm curette Tissue Removed: Slough and devitalized tissue Severity: Fat Layer Exposed Amount of bleeding with debridement: Mild Bleeding Controlled with: Pressure Patient tolerated procedure: Patient tolerated procedure well Additional Wound Wound debrided: Right Lateral Ankle/Foot Type of Debridement: Excisional debridement Anesthesia Used: 4% Lidocaine Solution Depth: Down to and including healthy tissue and in the subcutaneous layer Percentage of wound debrided: 100 Instrument Used: 5mm curette Tissue Removed: Slough and devitalized tissue Severity: Fat Layer Exposed Amount of bleeding with debridement: Mild Bleeding Controlled with: Pressure Patient tolerated procedure: Patient tolerated procedure well Assessment/Plan Assessment/Plan (1) Ulcer of right lower extremity with fat layer exposed: CODE(S): L97.912 - Non-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 (2) Ulcer of left lower extremity with fat layer exposed: CODE(S): L97.922 - Non-pressure chronic ulcer of unspecified part of left lower leg with fat layer exposed (3) Ulcer of right heel and midfoot with fat layer exposed: CODE(S): L97.412 - Non-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 Overall stable except for the right medial foot which showed slight increase. Continue silver alginate to all ulcers and cover with ABD. Change twice daily or more depending on drainage. Adaptic and gauze to the left lateral foot. Cole wrap to both extremities for edema management, still has significant edema. Leg elevation, optimize protein and nutrition. Their questions were answered and they were advised to let us know if they have any further questions or concerns. Follow-up in 2 weeks or sooner if needed. This note was generated with [employer] software. It may contain incorrect words, spelling, and punctuation that were not noted in checking the note before signing.
[2023-02-19 11:30] VITALS: BP 125/55; PULSE 69; RESP 16; TEMP 35.7
--- NOTE | 2023-02-19 12:35 | PCM.WC.PN ---
History of Present Illness Date of Service: 02/19/23 Chief Complaint: Nonhealing bilateral lower extremity ulcers History of Wound: Mr Wilson is an 82-year-old who was brought in here from his residential due to nonhealing bilateral lower extremity ulcers. Has had recurrent ulcerations for over 10 years with most recent episode being more severe late last year. He was seen at the emergency room and subsequently advised to follow-up at a wound center which he did at [facility] without any significant improvement. A month ago, he was hospitalized for sepsis secondary to bilateral lower extremity ulcers. Following his admission and hospital stay, he did not return to the prior wound center. He reports a lot of drainage from his ulcers. They have been inconsistent dressing changes at his facility. He feels well otherwise and denies chills, fever. Currently has a PICC line and he is on IV vancomycin and cephalosporin. Progress of Wound: Left Lateral Foot stay healed. Others ulcers with slight worsening/maceration. New right buttock ulcer Objective Data Objective Data Vital Signs: Vital Signs Temp Pulse Resp BP O2 Del Method 96.3 F L 69 16 125/55 H Room Air 02/19/23 11:30 02/19/23 11:30 02/19/23 11:30 02/19/23 11:30 02/19/23 11:30 Oxygen Delivery Method Room Air Charges/Coding Procedures Integumentary 111xxx-113xx: [id number] Samina subq tissue 20 sq cm/< Add On Codes: 12543 Samina subq tissue add-on (x3. Additional Sq.Cm debrided, please refer to clinical note. ) Physical Exam Const alert and no apparent distress General Appearance: cooperative and comfortable HEENT normocephalic, head/scalp atraumatic and hearing grossly normal bilaterally Head and Scalp: normal to inspection, normocephalic and atraumatic Neck full ROM General: normal visual inspection Resp normal respiratory effort Effort and Inspection: able to speak in complete sentences Extremity General Extremity: deformity Skin Wounds: wounds noted Neuro CN's II-XII intact bilaterally, moves all extremities and no focal motor deficits Psych mental status grossly normal Appearance: grossly normal Attitude: calm Activity / Motor Behavior: appropriate eye contact Debridement Note Debridement Note Wound debrided: Right Buttock Type of Debridement: Excisional debridement Anesthesia Used: 4% Lidocaine Solution Depth: Down to and including healthy tissue and in the subcutaneous layer Percentage of wound debrided: 100 Instrument Used: 3mm curette Tissue Removed: Slough and devitalized tissue Amount of bleeding with debridement: Mild Bleeding Controlled with: Pressure Patient tolerated procedure: Patient tolerated procedure well Post-Debridement Measurements and Additional Note: Post-Debridement Measurements/Treatment SASHA - Nurse 1 - General Ulcer Assessment Start: 02/05/23 11:27 Freq: Status: Active Protocol: MARTA Activity Type Activity Date Activity User E-sign Co-sign Detail Recorded Client Recorded Date Recorded By Document 02/05/23 11:27 BMF [id number] 02/05/23 11:41 BMF Document 02/19/23 11:30 DL [id number] 02/19/23 11:44 DL 02/05/23 02/19/23 11:27 11:30 WC - Today's Visit Information Type of service Follow-up Visit Follow-up Visit (Physician/CORPORATE CLAIMS EXAMINER (Physician/CORPORATE CLAIMS EXAMINER ) ) Arrival Mode Wheelchair Wheelchair Transfer Assistance Other Other Transfer Assist (Other) 2 2 Accompanied by caregiver sister Patient Identification Verified (Name & Yes Yes ) Patient Requires Transmission-Based No No Precautions Vital Signs Temperature (97.8 F-99.1 F) 97 F L 96.3 F L Temperature Source Temporal Temporal Pulse Rate (60-100) 67 69 Pulse Location Monitor Monitor Respiratory Rate (12-18) 16 16 Respiratory rate source Observation Observation Oxygen Delivery Method Room Air Room Air Blood Pressure (90/60-120/80) 110/42 L 125/55 H Blood Pressure Mean (mm Hg) 64 78 Source Monitor Monitor Position Sitting Sitting Blood Pressure Location Left Arm Right Arm History Since Last Visit- (Skip if this is Patient's initial visit) Have you changed medications since your No last visit? Any new allergies or adverse reactions No Had a fall/change in ADL's that may No increase risk of falls Signs or symptoms of abuse and/or No neglect since last visit Have you been in the hospital since your No last visit? Has dressing in place as prescribed Yes Has compression in place as prescribed Yes Has offloadiing in place as prescribed N/A Experienced any changes in pain level or No management Left Footwear Surgical Shoe with pressure relief insole Right Footwear Surgical Shoe with pressure relief insole Pain Scale: 0-10 Numeric Is Patient Pain Free? Yes Yes SASHA - Nurse 1 - General Ulcer Measurement Start: 02/05/23 11:27 Freq: Status: Active Protocol: Activity Type Activity Date Activity User E-sign Co-sign Detail Recorded Client Recorded Date Recorded By Document 02/05/23 11:27 [facility] [id number] 02/05/23 11:41 BMF Document 02/19/23 11:30 DL [id number] 02/19/23 11:44 DL Edit Result 02/19/23 11:30 DL (1) [id number] 02/19/23 11:52 DL (1) #11 R Buttocks - Current Size (cm) - Length => 0.5 - Current Size (cm) - Width => 1 - Current Size (cm) - Depth => 0.1 - Total Square Cm => 0.5 - Exudate Amt => Small - Exudate Type => Serosanguineous - Wound Margin => Distinct, Outline => Attached - Granulation Amt => Large (67-100%) - Granulation Quality => [place] - Necrosis Amt => None Present (0%) - Structure Exposed => N/A - Texture (Yuliet-wound Skin Appearance) => No Abnormality - Moisture (Yuliet-wound Skin Appearance) => No Abnormality - Color (Yuliet-wound Skin Appearance) => No Abnormality - Temperature (Yuliet-wound Skin => No Abnormality (Pt Appearance) => Warm) - Tenderness on Palpation (Yuliet-wound => No Skin Appearance) - Ulcer Cleansing => Rinsed/Irrigated => with Saline - Foul Odor after Cleansing => No - Anesthetic Used => 5% Lidocaine Gel 02/05/23 02/19/23 11:27 11:30 Wound Center Nurse 1 #10 right posterior LE -Combined with other wound No -Current Size (cm) - Length 0 -Current Size (cm) - Width 0 -Current Size (cm) - Depth 0 -Total Square Cm 0 -Date of Last Picture (Recall this 02/05/23 field) -Photo Taken Yes -Epithelialization Large 67-100% -Texture (Yuliet-wound Skin Appearance) Assessed -Moisture (Yuliet-wound Skin Appearance) Assessed,Dry/ Scaly -Color (Yuliet-wound Skin Appearance) Assessed, Hemosiderin Staining -Temperature (Yuliet-wound Skin No Abnormality Appearance) (Pt Warm) -Tenderness on Palpation (Yuliet-wound No Skin Appearance) -Ulcer Cleansing Soap and Water -Foul Odor after Cleansing No #11 R Buttocks -Current Size (cm) - Length 0.5 -Current Size (cm) - Width 1 -Current Size (cm) - Depth 0.1 -Total Square Cm 0.5 -Exudate Amt Small -Exudate Type Serosanguineous -Wound Margin Distinct, Outline Attached -Granulation Amt Large (67-100%) -Granulation Quality [place] -Necrosis Amt None Present (0 %) -Structure Exposed N/A -Texture (Yuliet-wound Skin Appearance) No Abnormality -Moisture (Yuliet-wound Skin Appearance) No Abnormality -Color (Yuliet-wound Skin Appearance) No Abnormality -Temperature (Yuliet-wound Skin No Abnormality Appearance) (Pt Warm) -Tenderness on Palpation (Yuliet-wound No Skin Appearance) -Ulcer Cleansing Rinsed/ Irrigated with Saline -Foul Odor after Cleansing No -Anesthetic Used 5% Lidocaine Gel #8 right lateral LE -Combined with other wound No No -Current Size (cm) - Length 0.1 8.8 -Current Size (cm) - Width 0.1 4 -Current Size (cm) - Depth 0.1 0.1 -Total Square Cm 0.01 35.2 -Date of Last Picture (Recall this 02/05/23 field) -Photo Taken Yes -Epithelialization None Present -Tunneling No -Undermining/Tunneling No -Circular Undermining No -Exudate Amt Medium None Present -Exudate Type Serosanguineous -Wound Margin Distinct, Distinct, Outline Outline Attached Attached -Granulation Amt Large (67-100%) Small (1-33%) -Granulation Quality [place] -Slough/Fibrin Yes Yes -Necrosis Amt Small (1-33%) Large (67-100%) -Necrotic Tissue Type Adherent Slough Eschar -Texture (Yuliet-wound Skin Appearance) Assessed, Assessed, Scarring Scarring -Moisture (Yuliet-wound Skin Appearance) Assessed Assessed,Dry/ Scaly -Color (Yuliet-wound Skin Appearance) Assessed Assessed -Temperature (Yuliet-wound Skin No Abnormality No Abnormality Appearance) (Pt Warm) (Pt Warm) -Tenderness on Palpation (Yuliet-wound No No Skin Appearance) -Ulcer Cleansing Soap and Water Soap and Water -Foul Odor after Cleansing No No -Anesthetic Used 4% Lidocaine 4% Lidocaine Solution Solution #6 R DORSAL foot -Combined with other wound No No -Current Size (cm) - Length 0.1 2 -Current Size (cm) - Width 0.1 5.6 -Current Size (cm) - Depth 0.1 0.1 -Total Square Cm 0.01 11.2 -Date of Last Picture (Recall this 02/05/23 field) -Photo Taken Yes -Epithelialization None Present None Present -Tunneling No No -Undermining/Tunneling No No -Circular Undermining No No -Exudate Amt Medium Medium -Exudate Type Serosanguineous Serosanguineous -Wound Margin Distinct, Distinct, Outline Outline Attached Attached -Granulation Amt None Present (0 None Present (0 %) %) -Slough/Fibrin Yes Yes -Necrosis Amt Large (67-100%) Large (67-100%) -Necrotic Tissue Type Adherent Slough Adherent Slough -Texture (Yuliet-wound Skin Appearance) Assessed, Assessed, Scarring Scarring -Moisture (Yuliet-wound Skin Appearance) Assessed Assessed -Color (Yuliet-wound Skin Appearance) Assessed, Assessed, Erythema Erythema -Temperature (Yuliet-wound Skin No Abnormality No Abnormality Appearance) (Pt Warm) (Pt Warm) -Tenderness on Palpation (Yuliet-wound No No Skin Appearance) -Ulcer Cleansing Soap and Water Soap and Water -Foul Odor after Cleansing No No -Anesthetic Used 4% Lidocaine 4% Lidocaine Solution Solution #5 L Med foot -Combined with other wound No No -Current Size (cm) - Length 0.1 1 -Current Size (cm) - Width 0.1 0.8 -Current Size (cm) - Depth 0.1 0.1 -Total Square Cm 0.01 0.8 -Date of Last Picture (Recall this 02/05/23 field) -Photo Taken Yes No -Epithelialization None Present None Present -Tunneling No No -Undermining/Tunneling No No -Circular Undermining No No -Exudate Amt Medium Small -Exudate Type Serosanguineous Serosanguineous -Wound Margin Distinct, Distinct, Outline Outline Attached Attached -Granulation Amt None Present (0 None Present (0 %) %) -Slough/Fibrin Yes Yes -Necrosis Amt Large (67-100%) Large (67-100%) -Necrotic Tissue Type Adherent Slough Eschar -Texture (Yuliet-wound Skin Appearance) Assessed, Assessed, Scarring Scarring -Moisture (Yuliet-wound Skin Appearance) Assessed Assessed,Dry/ Scaly -Color (Yuliet-wound Skin Appearance) Assessed Assessed -Temperature (Yuliet-wound Skin No Abnormality No Abnormality Appearance) (Pt Warm) (Pt Warm) -Tenderness on Palpation (Yuliet-wound No No Skin Appearance) -Ulcer Cleansing Rinsed/ Soap and Water Irrigated with Saline -Foul Odor after Cleansing No No -Anesthetic Used 4% Lidocaine 4% Lidocaine Solution Solution #4 L Lat Foot -Combined with other wound No No -Current Size (cm) - Length 0.1 0.1 -Current Size (cm) - Width 0.1 0.1 -Current Size (cm) - Depth 0.1 0.1 -Total Square Cm 0.01 0.01 -Date of Last Picture (Recall this 02/05/23 field) -Photo Taken Yes -Epithelialization Medium 34-66% Large 67-100% -Tunneling No No -Undermining/Tunneling No No -Circular Undermining No No -Exudate Amt None Present None Present -Wound Margin Distinct, Distinct, Outline Outline Attached Attached -Granulation Amt None Present (0 None Present (0 %) %) -Slough/Fibrin Yes Yes -Necrosis Amt Large (67-100%) Large (67-100%) -Necrotic Tissue Type Adherent Slough Eschar -Texture (Yuliet-wound Skin Appearance) Assessed, Assessed, Scarring Scarring -Moisture (Yuliet-wound Skin Appearance) Assessed,Dry/ Assessed Scaly -Color (Yuliet-wound Skin Appearance) Assessed Assessed -Temperature (Yuliet-wound Skin No Abnormality No Abnormality Appearance) (Pt Warm) (Pt Warm) -Tenderness on Palpation (Yuliet-wound No No Skin Appearance) -Ulcer Cleansing Soap and Water Soap and Water -Foul Odor after Cleansing No No -Anesthetic Used 4% Lidocaine 4% Lidocaine Solution Solution #3 R Med Foot -Combined with other wound No No -Current Size (cm) - Length 0.1 2.4 -Current Size (cm) - Width 0.1 8.5 -Current Size (cm) - Depth 0.1 0.4 -Total Square Cm 0.01 20.40 -Date of Last Picture (Recall this 02/05/23 field) -Photo Taken Yes No -Epithelialization None Present None Present -Tunneling No No -Undermining/Tunneling No No -Circular Undermining No No -Exudate Amt Medium Medium -Exudate Type Serosanguineous Serosanguineous -Wound Margin Distinct, Distinct, Outline Outline Attached Attached -Granulation Amt None Present (0 None Present (0 %) %) -Slough/Fibrin Yes Yes -Necrosis Amt Large (67-100%) Large (67-100%) -Necrotic Tissue Type Adherent Slough Adherent Slough -Texture (Yuliet-wound Skin Appearance) Assessed, Assessed, Scarring Scarring -Moisture (Yuliet-wound Skin Appearance) Assessed, Assessed,Dry/ Maceration Scaly -Color (Yuliet-wound Skin Appearance) Assessed Assessed, Erythema -Temperature (Yuliet-wound Skin No Abnormality No Abnormality Appearance) (Pt Warm) (Pt Warm) -Tenderness on Palpation (Yuliet-wound No No Skin Appearance) -Ulcer Cleansing Soap and Water Soap and Water -Foul Odor after Cleansing No No -Anesthetic Used 4% Lidocaine 4% Lidocaine Solution Solution #2 R Lat foot -Combined with other wound No No -Current Size (cm) - Length 0.1 3 -Current Size (cm) - Width 0.1 7.1 -Current Size (cm) - Depth 0.1 0.5 -Total Square Cm 0.01 21.3 -Date of Last Picture (Recall this 02/05/23 field) -Photo Taken Yes No -Epithelialization None Present Small 1-33% -Tunneling No No -Undermining/Tunneling No No -Circular Undermining No No -Exudate Amt Medium Large -Exudate Type Serosanguineous Serosanguineous -Wound Margin Distinct, Distinct, Outline Outline Attached Attached -Granulation Amt None Present (0 None Present (0 %) %) -Slough/Fibrin Yes Yes -Necrosis Amt Large (67-100%) Large (67-100%) -Necrotic Tissue Type Adherent Slough Adherent Slough -Texture (Yuliet-wound Skin Appearance) Assessed, Assessed, Scarring Scarring -Moisture (Yuliet-wound Skin Appearance) Assessed Assessed,Dry/ Scaly -Color (Yuliet-wound Skin Appearance) Assessed Assessed, Erythema -Temperature (Yuliet-wound Skin No Abnormality No Abnormality Appearance) (Pt Warm) (Pt Warm) -Tenderness on Palpation (Yuliet-wound No No Skin Appearance) -Ulcer Cleansing Soap and Water Soap and Water -Foul Odor after Cleansing No No -Anesthetic Used 4% Lidocaine 4% Lidocaine Solution Solution WC - Nurse 2 - General Ulcer CM Notes Start: 02/05/23 11:27 Freq: Status: Active Protocol: Activity Type Activity Date Activity User E-sign Co-sign Detail Recorded Client Recorded Date Recorded By Document 02/05/23 12:04 MW [id number] 02/05/23 12:14 MW Document 02/19/23 11:56 MW [id number] 02/19/23 12:18 MW 02/05/23 02/19/23 12:04 11:56 Wound Center Nurse 2 #10 right posterior LE -Time 12:04 -Correct Patient Yes -Correct Side, Site, Position Yes -Correct Procedure Yes -Procedure Performed No -Post Debridement (cm) - Length 0 -Post Debridement (cm) - Width 0 -Total Square (Post) (cm) 0 -Wound/Ulcer Outcome Healed- Epithelialized #11 R Buttocks -Time 11:57 -Correct Patient Yes -Correct Side, Site, Position Yes -Correct Procedure Yes -Procedure Performed Yes -Type of Procedure Debridement -Clinical Debridement Subcutaneous -Tissue Removed Subcutaneous -Post Debridement (cm) - Length 0.7 -Post Debridement (cm) - Width 0.5 -Post Debridement (cm) - Depth 0.1 -Total Square (Post) (cm) 0.35 -Area of Debridement (cm) - Length 0.7 -Area of Debridement (cm) - Width 0.5 -Total Square (Area) (cm) 0.35 -Tunneling No -Undermining/Tunneling No -Circular Undermining No -Wound/Ulcer Outcome Not Healed -Ulcer Cleansing Rinsed/ Irrigated with Saline -Foul Odor after Cleansing No -Bioengineered Tissue No -Bleeding Controlled with Pressure -Treatment Response Procedure Tolerated Well -Offloading No -Debridement - Subq, 1st 20sq cm Yes -Debridement, SubQ, ea addt'l 20sq cm 3 or part thereof #8 right lateral LE -Time 12:04 11:57 -Correct Patient Yes Yes -Correct Side, Site, Position Yes Yes -Correct Procedure Yes Yes -Procedure Performed Yes Yes -Type of Procedure Debridement Debridement -Clinical Debridement Subcutaneous Subcutaneous -Tissue Removed Subcutaneous Subcutaneous -Post Debridement (cm) - Length 6.0 6.8 -Post Debridement (cm) - Width 1.3 1.0 -Post Debridement (cm) - Depth 0.1 0.1 -Total Square (Post) (cm) 7.80 6.80 -Area of Debridement (cm) - Length 6.0 6.8 -Area of Debridement (cm) - Width 1.3 1.0 -Total Square (Area) (cm) 7.80 6.80 -Tunneling No No -Undermining/Tunneling No No -Circular Undermining No No -Wound/Ulcer Outcome Not Healed Not Healed -Ulcer Cleansing Rinsed/ Rinsed/ Irrigated with Irrigated with Saline Saline -Foul Odor after Cleansing No No -Bioengineered Tissue No No -Bleeding Controlled with Pressure Pressure -Treatment Response Procedure Procedure Tolerated Well Tolerated Well -Offloading No No -Debridement - Subq, 1st 20sq cm Yes No -Debridement, SubQ, ea addt'l 20sq cm 3 or part thereof #6 R DORSAL foot -Time 12:04 11:58 -Correct Patient Yes Yes -Correct Side, Site, Position Yes Yes -Correct Procedure Yes Yes -Procedure Performed Yes Yes -Type of Procedure Debridement Debridement -Clinical Debridement Subcutaneous Subcutaneous -Tissue Removed Subcutaneous Subcutaneous -Post Debridement (cm) - Length 2.5 2.0 -Post Debridement (cm) - Width 6.0 6.5 -Post Debridement (cm) - Depth 0.2 0.2 -Total Square (Post) (cm) 15.00 13.00 -Area of Debridement (cm) - Length 2.5 2.0 -Area of Debridement (cm) - Width 6.0 6.5 -Total Square (Area) (cm) 15.00 13.00 -Tunneling No No -Undermining/Tunneling No No -Circular Undermining No No -Wound/Ulcer Outcome Not Healed Not Healed -Ulcer Cleansing Rinsed/ Rinsed/ Irrigated with Irrigated with Saline Saline -Foul Odor after Cleansing No No -Bioengineered Tissue No No -Bleeding Controlled with Pressure Pressure -Treatment Response Procedure Procedure Tolerated Well Tolerated Well -Offloading No No -Debridement - Subq, 1st 20sq cm No No #5 L Med foot -Time 12:05 11:58 -Correct Patient Yes Yes -Correct Side, Site, Position Yes Yes -Correct Procedure Yes Yes -Procedure Performed Yes Yes -Type of Procedure Debridement Debridement -Clinical Debridement Subcutaneous Subcutaneous -Tissue Removed Subcutaneous Subcutaneous -Post Debridement (cm) - Length 1.0 1.5 -Post Debridement (cm) - Width 1.0 1.2 -Post Debridement (cm) - Depth 0.2 0.1 -Total Square (Post) (cm) 1.00 1.80 -Area of Debridement (cm) - Length 1.0 1.5 -Area of Debridement (cm) - Width 1.0 1.2 -Total Square (Area) (cm) 1.00 1.80 -Tunneling No No -Undermining/Tunneling No No -Circular Undermining No No -Wound/Ulcer Outcome Not Healed Not Healed -Ulcer Cleansing Rinsed/ Rinsed/ Irrigated with Irrigated with Saline Saline -Foul Odor after Cleansing No No -Bioengineered Tissue No No -Bleeding Controlled with Pressure Pressure -Treatment Response Procedure Procedure Tolerated Well Tolerated Well -Offloading No No -Debridement - Subq, 1st 20sq cm No No #4 L Lat Foot -Time 12:05 11:59 -Correct Patient Yes Yes -Correct Side, Site, Position Yes Yes -Correct Procedure Yes Yes -Procedure Performed Yes No -Type of Procedure Debridement -Clinical Debridement Subcutaneous -Tissue Removed Subcutaneous -Post Debridement (cm) - Length 0.1 0.1 -Post Debridement (cm) - Width 0.1 0.1 -Post Debridement (cm) - Depth 0.1 0.1 -Total Square (Post) (cm) 0.01 0.01 -Area of Debridement (cm) - Length 0.1 -Area of Debridement (cm) - Width 0.1 -Total Square (Area) (cm) 0.01 -Tunneling No No -Undermining/Tunneling No No -Circular Undermining No -Wound/Ulcer Outcome Not Healed Not Healed -Ulcer Cleansing Rinsed/ Rinsed/ Irrigated with Irrigated with Saline Saline -Foul Odor after Cleansing No -Bioengineered Tissue No -Bleeding Controlled with Pressure -Treatment Response Procedure Tolerated Well -Offloading No -Debridement - Subq, 1st 20sq cm No #3 R Med Foot -Time 12:05 11:59 -Correct Patient Yes Yes -Correct Side, Site, Position Yes Yes -Correct Procedure Yes Yes -Procedure Performed Yes Yes -Type of Procedure Debridement Debridement -Clinical Debridement Subcutaneous Subcutaneous -Tissue Removed Subcutaneous Subcutaneous -Post Debridement (cm) - Length 2.5 8.6 -Post Debridement (cm) - Width 10.0 2.5 -Post Debridement (cm) - Depth 0.3 0.2 -Total Square (Post) (cm) 25.00 21.50 -Area of Debridement (cm) - Length 2.5 8.6 -Area of Debridement (cm) - Width 10.0 2.5 -Total Square (Area) (cm) 25.00 21.50 -Tunneling No No -Undermining/Tunneling No No -Circular Undermining No No -Wound/Ulcer Outcome Not Healed Not Healed -Ulcer Cleansing Rinsed/ Rinsed/ Irrigated with Irrigated with Saline Saline -Foul Odor after Cleansing No No -Bioengineered Tissue No No -Bleeding Controlled with Pressure Pressure -Treatment Response Procedure Procedure Tolerated Well Tolerated Well -Offloading No No -Debridement - Subq, 1st 20sq cm No No #2 R Lat foot -Time 12:06 12:00 -Correct Patient Yes Yes -Correct Side, Site, Position Yes Yes -Correct Procedure Yes Yes -Procedure Performed Yes Yes -Type of Procedure Debridement Debridement -Clinical Debridement Subcutaneous Subcutaneous -Tissue Removed Subcutaneous Subcutaneous -Post Debridement (cm) - Length 3.0 3.0 -Post Debridement (cm) - Width 7.0 7.3 -Post Debridement (cm) - Depth 0.2 0.2 -Total Square (Post) (cm) 21.00 21.90 -Area of Debridement (cm) - Length 3.0 3.0 -Area of Debridement (cm) - Width 7.0 7.3 -Total Square (Area) (cm) 21.00 21.90 -Tunneling No No -Undermining/Tunneling No No -Circular Undermining No No -Wound/Ulcer Outcome Not Healed Not Healed -Ulcer Cleansing Rinsed/ Rinsed/ Irrigated with Irrigated with Saline Saline -Foul Odor after Cleansing No No -Bioengineered Tissue No No -Bleeding Controlled with Pressure Pressure -Treatment Response Procedure Procedure Tolerated Well Tolerated Well -Offloading No No -Debridement - Subq, 1st 20sq cm No No Pain Scale: 0-10 Numeric Is Patient Pain Free? Yes Yes WC - Nurse 3 - General Ulcer D/C NN Start: 02/05/23 11:27 Freq: Status: Active Protocol: Activity Type Activity Date Activity User E-sign Co-sign Detail Recorded Client Recorded Date Recorded By Document 02/05/23 12:19 [facility] [id number] 02/05/23 12:21 BMF Document 02/19/23 12:23 MW [id number] 02/19/23 12:26 MW 02/05/23 02/19/23 12:19 12:23 Wound Care Center Nurse 3 #11 R Buttocks -Ulcer Cleansing Rinsed/ Irrigated with Saline -Primary Dressing Applied Mepilex Border, [place] -Mepilex Border 1 -[place] 1 #8 right lateral LE -Ulcer Cleansing Rinsed/ Rinsed/ Irrigated with Irrigated with Saline Saline -Foul Odor after Cleansing No -Primary Dressing Applied Silvercel Silvercel -Other Dressing ABD, PER RN -Primary Dressing Covered/Secured with Dry Gauze & Dry Gauze,Dry Roll Gauze, Gauze & Roll Secured with Gauze,Secured Tape with Tape -[place] 2 1 #6 R DORSAL foot -Ulcer Cleansing Rinsed/ Rinsed/ Irrigated with Irrigated with Saline Saline -Foul Odor after Cleansing No -Primary Dressing Applied [place] -Other Dressing ABD; PER RN silvercel -Primary Dressing Covered/Secured with Dry Gauze & Dry Gauze,Dry Roll Gauze, Gauze & Roll Secured with Gauze,Secured Tape with Tape -[place] 0 #5 L Med foot -Ulcer Cleansing Rinsed/ Irrigated with Saline -Foul Odor after Cleansing No -Primary Dressing Applied [place] -Other Dressing ABD; PER RN silvercel -Primary Dressing Covered/Secured with Dry Gauze & Dry Gauze,Dry Roll Gauze, Gauze & Roll Secured with Gauze,Secured Tape with Tape -[place] 0 #4 L Lat Foot -Ulcer Cleansing Rinsed/ Irrigated with Saline -Foul Odor after Cleansing No -Primary Dressing Applied [place] -Other Dressing ABD; PER RN silvercel -Primary Dressing Covered/Secured with Dry Gauze & Dry Gauze,Dry Roll Gauze, Gauze & Roll Secured with Gauze,Secured Tape with Tape -[place] 0 #3 R Med Foot -Ulcer Cleansing Rinsed/ Irrigated with Saline -Foul Odor after Cleansing No -Primary Dressing Applied [place] -Other Dressing ABD, PER RN silvercel -Primary Dressing Covered/Secured with Dry Gauze & Dry Gauze,Dry Roll Gauze, Gauze & Roll Secured with Gauze,Secured Tape with Tape -Silvercel 0 #2 R Lat foot -Ulcer Cleansing Soap and Water -Foul Odor after Cleansing No -Primary Dressing Applied Silvercel -Other Dressing HENRY COOPER RN silvercel -Primary Dressing Covered/Secured with Dry Gauze & Dry Gauze,Dry Roll Gauze, Gauze & Roll Secured with Gauze,Secured Tape with Tape -Silvercel 0 BLE -Compression Wrap Cole Wrap -Other cole Treatment Response Procedure Procedure Tolerated Well Tolerated Well Pain Scale: 0-10 Numeric Is Patient Pain Free? Yes Yes Teaching: Wound Center Dressing Your Wound -Person Taught Patient,Family -Teaching Method Discussion, Demonstration -Response to teaching Reinforcement needed WC - Visit Discharge Discharge Condition Stable Stable Ambulatory Status Wheelchair Wheelchair Transportation Private Auto Private Auto Accompanied by C[facility]GIVER FROM [facility] Medication Reconcilliation completed & No provided to patient/care provider Clinical Summary of Care Provided Yes Facility Type Identification Officer Care Facility Additional Wound Wound debrided: Left medial ankle/lower extremity Type of Debridement: Excisional debridement Anesthesia Used: 5% Lidocaine Gel Depth: Down to and including healthy tissue and in the subcutaneous layer Percentage of wound debrided: 100 Instrument Used: 5mm curette Tissue Removed: Slough and devitalized tissue Severity: Fat Layer Exposed Amount of bleeding with debridement: Mild Bleeding Controlled with: Pressure Patient tolerated procedure: Patient tolerated procedure well Additional Wound Wound debrided: Right medial ankle/lower extremity Type of Debridement: Excisional debridement Anesthesia Used: 5% Lidocaine Gel Depth: Down to and including healthy tissue and in the subcutaneous layer Percentage of wound debrided: 100 Instrument Used: 5mm curette Tissue Removed: Slough and devitalized tissue Severity: Fat Layer Exposed Amount of bleeding with debridement: Mild Bleeding Controlled with: Pressure Patient tolerated procedure: Patient tolerated procedure well Additional Wound Wound debrided: Right Lateral leg Type of Debridement: Excisional debridement Anesthesia Used: 5% Lidocaine Gel Depth: Down to and including healthy tissue and in the subcutaneous layer Percentage of wound debrided: 100 Instrument Used: 5mm curette Tissue Removed: Slough and devitalized tissue Severity: Fat Layer Exposed Amount of bleeding with debridement: Mild Bleeding Controlled with: Pressure Patient tolerated procedure: Patient tolerated procedure well Additional Wound Wound debrided: Right Dorsal Foot Type of Debridement: Excisional debridement Anesthesia Used: 4% Lidocaine Solution Depth: Down to and including healthy tissue and in the subcutaneous layer Percentage of wound debrided: 100 Instrument Used: 7mm curette Tissue Removed: Slough and devitalized tissue Severity: Fat Layer Exposed Amount of bleeding with debridement: Mild Bleeding Controlled with: Pressure Patient tolerated procedure: Patient tolerated procedure well Additional Wound Wound debrided: Right Lateral Ankle/Foot Type of Debridement: Excisional debridement Anesthesia Used: 4% Lidocaine Solution Depth: Down to and including healthy tissue and in the subcutaneous layer Percentage of wound debrided: 100 Instrument Used: 5mm curette Tissue Removed: Slough and devitalized tissue Severity: Fat Layer Exposed Amount of bleeding with debridement: Mild Bleeding Controlled with: Pressure Patient tolerated procedure: Patient tolerated procedure well Assessment/Plan Assessment/Plan (1) Ulcer of right lower extremity with fat layer exposed: CODE(S): L97.912 - Non-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 (2) Ulcer of left lower extremity with fat layer exposed: CODE(S): L97.922 - Non-pressure chronic ulcer of unspecified part of left lower leg with fat layer exposed (3) Ulcer of right heel and midfoot with fat layer exposed: CODE(S): L97.412 - Non-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 Significant slough and maceration noted. Note sent back to [place] to avoid soaking his feet during dressing changes. Just clean with wash cloth, soap and water. Continue silver alginate to all ulcers and cover with ABD. Change twice daily or more depending on drainage. Adaptic and gauze to the left lateral foot. Cole wrap to both extremities for edema management, still has significant edema. Leg elevation, optimize protein and nutrition. Their questions were answered and they were advised to let us know if they have any further questions or concerns. Follow up in 1 week or sooner if needed. This note was generated with [employer] software. It may contain incorrect words, spelling, and punctuation that were not noted in checking the note before signing.
[2023-02-26 10:31] VITALS: BP 98/47; PULSE 65; RESP 16; TEMP 36
--- NOTE | 2023-02-26 12:47 | PN.PCM_ITS ---
History of Present Illness Date of Service: 02/26/23 Chief Complaint: Nonhealing bilateral lower extremity ulcers History of Wound: Mr Wilson is an 82-year-old who [facility] due to nonhealing bilateral lower extremity ulcers. Has had recurrent ulcerations for over 10 years with most recent episode being more severe late last year. He was seen at the emergency room and subsequently advised to follow-up at a wound center which he did at [facility] without any significant improvement. A month ago, he was hospitalized for sepsis secondary to bilateral lower extremity ulcers. Following his admission and hospital stay, he did not return to the prior wound center. He reports a lot of drainage from his ulcers. They have been inconsistent dressing changes at his facility. He feels well otherwise and denies chills, fever. Currently has a PICC line and he is on IV vancomycin and cephalosporin. Progress of Wound: Buttock ulcer is healed. Left lateral foot stays healed. Right lateral leg with some improvement. Right dorsal foot again with slough/? Silver staining. Ongoing plantar foot maceration, he states that they have stopped soaking his feet since changes are done twice daily as recommended. Objective Data Objective Data Vital Signs: Vital Signs Temp Pulse Resp BP O2 Del Method 96.8 F L 65 16 98/47 L Room Air 02/26/23 10:31 02/26/23 10:31 02/26/23 10:31 02/26/23 10:31 02/26/23 10:31 Oxygen Delivery Method Room Air Charges/Coding Procedures Integumentary 111xxx-113xx: [id number] Samina subq tissue 20 sq cm/< Add On Codes: 93594 Samina subq tissue add-on (x3. Additional square centimeter debrided, please refer to clinical note.) Physical Exam Const alert and no apparent distress General Appearance: cooperative and comfortable HEENT normocephalic, head/scalp atraumatic and hearing grossly normal bilaterally Head and Scalp: normal to inspection, normocephalic and atraumatic Neck full ROM General: normal visual inspection Resp normal respiratory effort Effort and Inspection: able to speak in complete sentences Extremity General Extremity: deformity Skin Wounds: wounds noted Neuro CN's II-XII intact bilaterally, moves all extremities and no focal motor deficits Psych mental status grossly normal Appearance: grossly normal Attitude: calm Activity / Motor Behavior: appropriate eye contact Debridement Note Debridement Note Wound debrided: Right Lateral Ankle/Foot Type of Debridement: Excisional debridement Anesthesia Used: 4% Lidocaine Solution Depth: Down to and including healthy tissue and in the subcutaneous layer Percentage of wound debrided: 100 Instrument Used: 7mm curette Tissue Removed: Slough and devitalized tissue Severity: Fat Layer Exposed Amount of bleeding with debridement: Mild Bleeding Controlled with: Pressure Patient tolerated procedure: Patient tolerated procedure well Post-Debridement Measurements and Additional Note: Post-Debridement Measurements/Treatment - Nurse 1 - General Ulcer Assessment Start: 02/05/23 11:27 Freq: Status: Active Protocol: MARTA Activity Type Activity Date Activity User E-sign Co-sign Detail Recorded Client Recorded Date Recorded By Document 02/05/23 11:27 [facility] [id number] 02/05/23 11:41 BMF Document 02/19/23 11:30 DL [id number] 02/19/23 11:44 DL Document 02/26/23 10:31 [facility] [id number] 02/26/23 10:59 [facility] 02/05/23 02/19/23 02/26/23 11:27 11:30 10:31 - Today's Visit Information Type of service Follow-up Visit Follow-up Visit Follow-up Visit (Physician/ASSEMBLY ROOM SUPERVISOR (Physician/ASSEMBLY ROOM SUPERVISOR (Physician/ASSEMBLY ROOM SUPERVISOR ) ) ) Arrival Mode Wheelchair Wheelchair Wheelchair Transfer Assistance Other Other Other Transfer Assist (Other) 2 2 2 MAX Accompanied by caregiver sister SISTER Patient Identification Verified (Name & Yes Yes Yes ) Patient Requires Transmission-Based No No No Precautions Vital Signs Temperature (97.8 F-99.1 F) 97 F L 96.3 F L 96.8 F L Temperature Source Temporal Temporal Temporal Pulse Rate (60-100) 67 69 65 Pulse Location Monitor Monitor Monitor Respiratory Rate (12-18) 16 16 16 Respiratory rate source Observation Observation Observation Oxygen Delivery Method Room Air Room Air Room Air Blood Pressure (90/60-120/80) 110/42 L 125/55 H 98/47 L Blood Pressure Mean (mm Hg) 64 78 64 Source Monitor Monitor Monitor Position Sitting Sitting Sitting Blood Pressure Location Left Arm Right Arm Right Arm History Since Last Visit- (Skip if this is Patient's initial visit) Have you changed medications since your No No last visit? Any new allergies or adverse reactions No No Had a fall/change in ADL's that may No No increase risk of falls Signs or symptoms of abuse and/or No No neglect since last visit Have you been in the hospital since your No No last visit? Has dressing in place as prescribed Yes Yes Has compression in place as prescribed Yes Yes Has offloadiing in place as prescribed N/A Yes Experienced any changes in pain level or No No management Left Footwear Surgical Shoe Surgical Shoe with pressure with pressure relief insole relief insole Right Footwear Surgical Shoe Surgical Shoe with pressure with pressure relief insole relief insole Pain Scale: 0-10 Numeric Is Patient Pain Free? Yes Yes Yes WC - Nurse 1 - General Ulcer Measurement Start: 02/05/23 11:27 Freq: Status: Active Protocol: Activity Type Activity Date Activity User E-sign Co-sign Detail Recorded Client Recorded Date Recorded By Document 02/05/23 11:27 BMF [id number] 02/05/23 11:41 BMF Document 02/19/23 11:30 DL [id number] 02/19/23 11:44 DL Edit Result 02/19/23 11:30 DL (1) [id number] 02/19/23 11:52 DL Document 02/26/23 10:31 BMF [id number] 02/26/23 10:59 BMF (1) #11 R Buttocks - Current Size (cm) - Length => 0.5 - Current Size (cm) - Width => 1 - Current Size (cm) - Depth => 0.1 - Total Square Cm => 0.5 - Exudate Amt => Small - Exudate Type => Serosanguineous - Wound Margin => Distinct, Outline => Attached - Granulation Amt => Large (67-100%) - Granulation Quality => [place] - Necrosis Amt => None Present (0%) - Structure Exposed => N/A - Texture (Yuliet-wound Skin Appearance) => No Abnormality - Moisture (Yuliet-wound Skin Appearance) => No Abnormality - Color (Yuliet-wound Skin Appearance) => No Abnormality - Temperature (Yuliet-wound Skin => No Abnormality (Pt Appearance) => Warm) - Tenderness on Palpation (Yuliet-wound => No Skin Appearance) - Ulcer Cleansing => Rinsed/Irrigated => with Saline - Foul Odor after Cleansing => No - Anesthetic Used => 5% Lidocaine Gel 02/05/23 02/19/23 02/26/23 11:27 11:30 10:31 Wound Center Nurse 1 #11 R Buttocks -Combined with other wound No -Current Size (cm) - Length 0.5 0.1 -Current Size (cm) - Width 1 0.1 -Current Size (cm) - Depth 0.1 0.1 -Total Square Cm 0.5 0.01 -Epithelialization Large 67-100% -Exudate Amt Small -Exudate Type Serosanguineous -Wound Margin Distinct, Outline Attached -Granulation Amt Large (67-100%) -Granulation Quality [place] -Necrosis Amt None Present (0 %) -Structure Exposed N/A -Texture (Yuliet-wound Skin Appearance) No Abnormality Assessed -Moisture (Yuliet-wound Skin Appearance) No Abnormality Assessed -Color (Yuliet-wound Skin Appearance) No Abnormality Assessed, Erythema -Temperature (Yuliet-wound Skin No Abnormality No Abnormality Appearance) (Pt Warm) (Pt Warm) -Tenderness on Palpation (Yuliet-wound No No Skin Appearance) -Ulcer Cleansing Rinsed/ Rinsed/ Irrigated with Irrigated with Saline Saline -Foul Odor after Cleansing No No -Anesthetic Used 5% Lidocaine Gel #10 right posterior LE -Combined with other wound No -Current Size (cm) - Length 0 -Current Size (cm) - Width 0 -Current Size (cm) - Depth 0 -Total Square Cm 0 -Date of Last Picture (Recall this 02/05/23 field) -Photo Taken Yes -Epithelialization Large 67-100% -Texture (Yuliet-wound Skin Appearance) Assessed -Moisture (Yuliet-wound Skin Appearance) Assessed,Dry/ Scaly -Color (Yluiet-wound Skin Appearance) Assessed, Hemosiderin Staining -Temperature (Yuliet-wound Skin No Abnormality Appearance) (Pt Warm) -Tenderness on Palpation (Yuliet-wound No Skin Appearance) -Ulcer Cleansing Soap and Water -Foul Odor after Cleansing No #4 L Lat Foot -Combined with other wound No No No -Current Size (cm) - Length 0.1 0.1 0.1 -Current Size (cm) - Width 0.1 0.1 0.1 -Current Size (cm) - Depth 0.1 0.1 0.1 -Total Square Cm 0.01 0.01 0.01 -Date of Last Picture (Recall this 02/05/23 field) -Photo Taken Yes No -Epithelialization Medium 34-66% Large 67-100% Large 67-100% -Tunneling No No No -Undermining/Tunneling No No No -Circular Undermining No No No -Exudate Amt None Present None Present None Present -Wound Margin Distinct, Distinct, Distinct, Outline Outline Outline Attached Attached Attached -Granulation Amt None Present (0 None Present (0 None Present (0 %) %) %) -Slough/Fibrin Yes Yes Yes -Necrosis Amt Large (67-100%) Large (67-100%) Small (1-33%) -Necrotic Tissue Type Adherent Slough Eschar Eschar -Texture (Yuliet-wound Skin Appearance) Assessed, Assessed, Assessed, Scarring Scarring Scarring -Moisture (Yuliet-wound Skin Appearance) Assessed,Dry/ Assessed Assessed,Dry/ Scaly Scaly -Color (Yuliet-wound Skin Appearance) Assessed Assessed Assessed -Temperature (Yuliet-wound Skin No Abnormality No Abnormality No Abnormality Appearance) (Pt Warm) (Pt Warm) (Pt Warm) -Tenderness on Palpation (Yuliet-wound No No No Skin Appearance) -Ulcer Cleansing Soap and Water Soap and Water Soap and Water -Foul Odor after Cleansing No No No -Anesthetic Used 4% Lidocaine 4% Lidocaine 4% Lidocaine Solution Solution Solution -Wound Comment(s) SMALL SCAB ONLY #8 right lateral LE -Combined with other wound No No No -Current Size (cm) - Length 0.1 8.8 0.8 -Current Size (cm) - Width 0.1 4 0.5 -Current Size (cm) - Depth 0.1 0.1 0.2 -Total Square Cm 0.01 35.2 0.40 -Date of Last Picture (Recall this 02/05/23 field) -Photo Taken Yes No -Epithelialization None Present Small 1-33% -Tunneling No No -Undermining/Tunneling No No -Circular Undermining No No -Exudate Amt Medium None Present Small -Exudate Type Serosanguineous Serosanguineous -Wound Margin Distinct, Distinct, Distinct, Outline Outline Outline Attached Attached Attached -Granulation Amt Large (67-100%) Small (1-33%) Large (67-100%) -Granulation Quality Red Red Red -Slough/Fibrin Yes Yes Yes -Necrosis Amt Small (1-33%) Large (67-100%) Small (1-33%) -Necrotic Tissue Type Adherent Slough Eschar Eschar -Texture (Yuliet-wound Skin Appearance) Assessed, Assessed, Assessed, Scarring Scarring Scarring -Moisture (Yuliet-wound Skin Appearance) Assessed Assessed,Dry/ Assessed,Dry/ Scaly Scaly -Color (Yuliet-wound Skin Appearance) Assessed Assessed Assessed -Temperature (Yuliet-wound Skin No Abnormality No Abnormality No Abnormality Appearance) (Pt Warm) (Pt Warm) (Pt Warm) -Tenderness on Palpation (Yuliet-wound No No No Skin Appearance) -Ulcer Cleansing Soap and Water Soap and Water Soap and Water -Foul Odor after Cleansing No No No -Anesthetic Used 4% Lidocaine 4% Lidocaine 5% Lidocaine Solution Solution Gel #6 R DORSAL foot -Combined with other wound No No No -Current Size (cm) - Length 0.1 2 2 -Current Size (cm) - Width 0.1 5.6 6.2 -Current Size (cm) - Depth 0.1 0.1 0.2 -Total Square Cm 0.01 11.2 12.4 -Date of Last Picture (Recall this 02/05/23 field) -Photo Taken Yes No -Epithelialization None Present None Present None Present -Tunneling No No No -Undermining/Tunneling No No No -Circular Undermining No No No -Exudate Amt Medium Medium Large -Exudate Type Serosanguineous Serosanguineous Serosanguineous -Wound Margin Distinct, Distinct, Distinct, Outline Outline Outline Attached Attached Attached -Granulation Amt None Present (0 None Present (0 None Present (0 %) %) %) -Slough/Fibrin Yes Yes Yes -Necrosis Amt Large (67-100%) Large (67-100%) Large (67-100%) -Necrotic Tissue Type Adherent Slough Adherent Slough Adherent Slough -Texture (Yuliet-wound Skin Appearance) Assessed, Assessed, Assessed, Scarring Scarring Scarring -Moisture (Yuliet-wound Skin Appearance) Assessed Assessed Assessed, Maceration -Color (Yuliet-wound Skin Appearance) Assessed, Assessed, Assessed, Erythema Erythema Erythema -Temperature (Yuliet-wound Skin No Abnormality No Abnormality No Abnormality Appearance) (Pt Warm) (Pt Warm) (Pt Warm) -Tenderness on Palpation (Yuliet-wound No No No Skin Appearance) -Ulcer Cleansing Soap and Water Soap and Water Soap and Water -Foul Odor after Cleansing No No No -Anesthetic Used 4% Lidocaine 4% Lidocaine 4% Lidocaine Solution Solution Solution #5 L Med foot -Combined with other wound No No No -Current Size (cm) - Length 0.1 1 1.4 -Current Size (cm) - Width 0.1 0.8 0.9 -Current Size (cm) - Depth 0.1 0.1 0.3 -Total Square Cm 0.01 0.8 1.26 -Date of Last Picture (Recall this 02/05/23 field) -Photo Taken Yes No -Epithelialization None Present None Present None Present -Tunneling No No No -Undermining/Tunneling No No No -Circular Undermining No No No -Exudate Amt Medium Small Medium -Exudate Type Serosanguineous Serosanguineous Serosanguineous -Wound Margin Distinct, Distinct, Distinct, Outline Outline Outline Attached Attached Attached -Granulation Amt None Present (0 None Present (0 Small (1-33%) %) %) -Granulation Quality Red -Slough/Fibrin Yes Yes Yes -Necrosis Amt Large (67-100%) Large (67-100%) Large (67-100%) -Necrotic Tissue Type Adherent Slough Eschar Adherent Slough -Texture (Yuliet-wound Skin Appearance) Assessed, Assessed, Assessed, Scarring Scarring Scarring -Moisture (Yuliet-wound Skin Appearance) Assessed Assessed,Dry/ Assessed,Dry/ Scaly Scaly -Color (Yuliet-wound Skin Appearance) Assessed Assessed Assessed -Temperature (Yuliet-wound Skin No Abnormality No Abnormality No Abnormality Appearance) (Pt Warm) (Pt Warm) (Pt Warm) -Tenderness on Palpation (Yuliet-wound No No No Skin Appearance) -Ulcer Cleansing Rinsed/ Soap and Water Soap and Water Irrigated with Saline -Foul Odor after Cleansing No No No -Anesthetic Used 4% Lidocaine 4% Lidocaine 4% Lidocaine Solution Solution Solution #3 R Med Foot -Combined with other wound No No No -Current Size (cm) - Length 0.1 2.4 8.7 -Current Size (cm) - Width 0.1 8.5 2.1 -Current Size (cm) - Depth 0.1 0.4 0.3 -Total Square Cm 0.01 20.40 18.27 -Date of Last Picture (Recall this 02/05/23 field) -Photo Taken Yes No No -Epithelialization None Present None Present None Present -Tunneling No No No -Undermining/Tunneling No No No -Circular Undermining No No No -Exudate Amt Medium Medium Large -Exudate Type Serosanguineous Serosanguineous Serosanguineous -Wound Margin Distinct, Distinct, Thickened Outline Outline Attached Attached -Granulation Amt None Present (0 None Present (0 Medium (34-66%) %) %) -Granulation Quality [place] -Slough/Fibrin Yes Yes Yes -Necrosis Amt Large (67-100%) Large (67-100%) Medium (34-66%) -Necrotic Tissue Type Adherent Slough Adherent Slough Adherent Slough -Texture (Yuliet-wound Skin Appearance) Assessed, Assessed, Assessed, Scarring Scarring Scarring -Moisture (Yuliet-wound Skin Appearance) Assessed, Assessed,Dry/ Assessed, Maceration Scaly Maceration,Dry/ Scaly -Color (Yuliet-wound Skin Appearance) Assessed Assessed, Assessed, Erythema Erythema -Temperature (Yuliet-wound Skin No Abnormality No Abnormality No Abnormality Appearance) (Pt Warm) (Pt Warm) (Pt Warm) -Tenderness on Palpation (Yuliet-wound No No No Skin Appearance) -Ulcer Cleansing Soap and Water Soap and Water Soap and Water -Foul Odor after Cleansing No No No -Anesthetic Used 4% Lidocaine 4% Lidocaine 4% Lidocaine Solution Solution Solution #2 R Lat foot -Combined with other wound No No No -Current Size (cm) - Length 0.1 3 9.5 -Current Size (cm) - Width 0.1 7.1 2.7 -Current Size (cm) - Depth 0.1 0.5 0.4 -Total Square Cm 0.01 21.3 25.65 -Date of Last Picture (Recall this 02/05/23 field) -Photo Taken Yes No No -Epithelialization None Present Small 1-33% None Present -Tunneling No No No -Undermining/Tunneling No No No -Circular Undermining No No No -Exudate Amt Medium Large Large -Exudate Type Serosanguineous Serosanguineous Serosanguineous -Wound Margin Distinct, Distinct, Thickened Outline Outline Attached Attached -Granulation Amt None Present (0 None Present (0 Medium (34-66%) %) %) -Granulation Quality [place] -Slough/Fibrin Yes Yes Yes -Necrosis Amt Large (67-100%) Large (67-100%) Medium (34-66%) -Necrotic Tissue Type Adherent Slough Adherent Slough Adherent Slough -Texture (Yuliet-wound Skin Appearance) Assessed, Assessed, Assessed, Scarring Scarring Scarring -Moisture (Yuliet-wound Skin Appearance) Assessed Assessed,Dry/ Assessed, Scaly Maceration,Dry/ Scaly -Color (Yuliet-wound Skin Appearance) Assessed Assessed, Assessed Erythema -Temperature (Yuliet-wound Skin No Abnormality No Abnormality No Abnormality Appearance) (Pt Warm) (Pt Warm) (Pt Warm) -Tenderness on Palpation (Yuliet-wound No No No Skin Appearance) -Ulcer Cleansing Soap and Water Soap and Water Soap and Water -Foul Odor after Cleansing No No No -Anesthetic Used 4% Lidocaine 4% Lidocaine 4% Lidocaine Solution Solution Solution WC - Nurse 2 - General Ulcer CM Notes Start: 02/05/23 11:27 Freq: Status: Active Protocol: Activity Type Activity Date Activity User E-sign Co-sign Detail Recorded Client Recorded Date Recorded By Document 02/05/23 12:04 MW [id number] 02/05/23 12:14 MW Document 02/19/23 11:56 MW [id number] 02/19/23 12:18 MW Document 02/26/23 11:34 [id number] 02/26/23 11:58 02/05/23 02/19/23 02/26/23 12:04 11:56 11:34 Wound Center Nurse 2 #11 R Buttocks -Time 11:57 11:35 -Correct Patient Yes No -Correct Side, Site, Position Yes No -Correct Procedure Yes No -Procedure Performed Yes No -Type of Procedure Debridement -Clinical Debridement Subcutaneous -Tissue Removed Subcutaneous -Post Debridement (cm) - Length 0.7 0 -Post Debridement (cm) - Width 0.5 0 -Post Debridement (cm) - Depth 0.1 0 -Total Square (Post) (cm) 0.35 0 -Area of Debridement (cm) - Length 0.7 0 -Area of Debridement (cm) - Width 0.5 0 -Total Square (Area) (cm) 0.35 0 -Tunneling No No -Undermining/Tunneling No No -Circular Undermining No No -Wound/Ulcer Outcome Not Healed Healed- Epithelialized -Ulcer Cleansing Rinsed/ Rinsed/ Irrigated with Irrigated with Saline Saline -Foul Odor after Cleansing No No -Bioengineered Tissue No No -Bleeding Controlled with Pressure Pressure -Treatment Response Procedure Procedure Tolerated Well Tolerated Well -Offloading No No -Debridement - Subq, 1st 20sq cm Yes No -Debridement, SubQ, ea addt'l 20sq cm 3 or part thereof #10 right posterior LE -Time 12:04 -Correct Patient Yes -Correct Side, Site, Position Yes -Correct Procedure Yes -Procedure Performed No -Post Debridement (cm) - Length 0 -Post Debridement (cm) - Width 0 -Total Square (Post) (cm) 0 -Wound/Ulcer Outcome Healed- Epithelialized #4 L Lat Foot -Time 12:05 11:59 -Correct Patient Yes Yes No -Correct Side, Site, Position Yes Yes No -Correct Procedure Yes Yes No -Procedure Performed Yes No No -Type of Procedure Debridement -Clinical Debridement Subcutaneous -Tissue Removed Subcutaneous -Post Debridement (cm) - Length 0.1 0.1 0 -Post Debridement (cm) - Width 0.1 0.1 0 -Post Debridement (cm) - Depth 0.1 0.1 0 -Total Square (Post) (cm) 0.01 0.01 0 -Area of Debridement (cm) - Length 0.1 0 -Area of Debridement (cm) - Width 0.1 0 -Total Square (Area) (cm) 0.01 0 -Tunneling No No -Undermining/Tunneling No No -Circular Undermining No -Wound/Ulcer Outcome Not Healed Not Healed Healed- Epithelialized -Ulcer Cleansing Rinsed/ Rinsed/ Irrigated with Irrigated with Saline Saline -Foul Odor after Cleansing No -Bioengineered Tissue No -Bleeding Controlled with Pressure -Treatment Response Procedure Tolerated Well -Offloading No -Debridement - Subq, 1st 20sq cm No #8 right lateral LE -Time 12:04 11:57 11:36 -Correct Patient Yes Yes Yes -Correct Side, Site, Position Yes Yes Yes -Correct Procedure Yes Yes Yes -Procedure Performed Yes Yes Yes -Type of Procedure Debridement Debridement Debridement -Clinical Debridement Subcutaneous Subcutaneous Subcutaneous -Tissue Removed Subcutaneous Subcutaneous Subcutaneous -Post Debridement (cm) - Length 6.0 6.8 1.1 -Post Debridement (cm) - Width 1.3 1.0 0.6 -Post Debridement (cm) - Depth 0.1 0.1 0.1 -Total Square (Post) (cm) 7.80 6.80 0.66 -Area of Debridement (cm) - Length 6.0 6.8 1.1 -Area of Debridement (cm) - Width 1.3 1.0 0.6 -Total Square (Area) (cm) 7.80 6.80 0.66 -Tunneling No No No -Undermining/Tunneling No No No -Circular Undermining No No No -Wound/Ulcer Outcome Not Healed Not Healed Not Healed -Ulcer Cleansing Rinsed/ Rinsed/ Rinsed/ Irrigated with Irrigated with Irrigated with Saline Saline Saline -Foul Odor after Cleansing No No No -Bioengineered Tissue No No No -Bleeding Controlled with Pressure Pressure Pressure -Treatment Response Procedure Procedure Procedure Tolerated Well Tolerated Well Tolerated Well -Offloading No No No -Debridement - Subq, 1st 20sq cm Yes No No -Debridement, SubQ, ea addt'l 20sq cm 3 or part thereof #6 R DORSAL foot -Time 12:04 11:58 11:37 -Correct Patient Yes Yes Yes -Correct Side, Site, Position Yes Yes Yes -Correct Procedure Yes Yes Yes -Procedure Performed Yes Yes Yes -Type of Procedure Debridement Debridement Debridement -Clinical Debridement Subcutaneous Subcutaneous Subcutaneous -Tissue Removed Subcutaneous Subcutaneous Subcutaneous -Post Debridement (cm) - Length 2.5 2.0 2.5 -Post Debridement (cm) - Width 6.0 6.5 6.0 -Post Debridement (cm) - Depth 0.2 0.2 0.2 -Total Square (Post) (cm) 15.00 13.00 15.00 -Area of Debridement (cm) - Length 2.5 2.0 2.5 -Area of Debridement (cm) - Width 6.0 6.5 6.0 -Total Square (Area) (cm) 15.00 13.00 15.00 -Tunneling No No No -Undermining/Tunneling No No No -Circular Undermining No No No -Wound/Ulcer Outcome Not Healed Not Healed Not Healed -Ulcer Cleansing Rinsed/ Rinsed/ Rinsed/ Irrigated with Irrigated with Irrigated with Saline Saline Saline -Foul Odor after Cleansing No No No -Bioengineered Tissue No No No -Bleeding Controlled with Pressure Pressure Pressure -Treatment Response Procedure Procedure Procedure Tolerated Well Tolerated Well Tolerated Well -Offloading No No No -Debridement - Subq, 1st 20sq cm No No No #5 L Med foot -Time 12:05 11:58 11:38 -Correct Patient Yes Yes Yes -Correct Side, Site, Position Yes Yes Yes -Correct Procedure Yes Yes Yes -Procedure Performed Yes Yes Yes -Type of Procedure Debridement Debridement Debridement -Clinical Debridement Subcutaneous Subcutaneous Subcutaneous -Tissue Removed Subcutaneous Subcutaneous Subcutaneous -Post Debridement (cm) - Length 1.0 1.5 1.7 -Post Debridement (cm) - Width 1.0 1.2 1.1 -Post Debridement (cm) - Depth 0.2 0.1 0.2 -Total Square (Post) (cm) 1.00 1.80 1.87 -Area of Debridement (cm) - Length 1.0 1.5 1.7 -Area of Debridement (cm) - Width 1.0 1.2 1.1 -Total Square (Area) (cm) 1.00 1.80 1.87 -Tunneling No No No -Undermining/Tunneling No No No -Circular Undermining No No No -Wound/Ulcer Outcome Not Healed Not Healed Not Healed -Ulcer Cleansing Rinsed/ Rinsed/ Rinsed/ Irrigated with Irrigated with Irrigated with Saline Saline Saline -Foul Odor after Cleansing No No No -Bioengineered Tissue No No No -Bleeding Controlled with Pressure Pressure Pressure -Treatment Response Procedure Procedure Procedure Tolerated Well Tolerated Well Tolerated Well -Offloading No No No -Type of Offloading Surgical Shoe -Debridement - Subq, 1st 20sq cm No No No #3 R Med Foot -Time 12:05 11:59 11:39 -Correct Patient Yes Yes Yes -Correct Side, Site, Position Yes Yes Yes -Correct Procedure Yes Yes Yes -Procedure Performed Yes Yes Yes -Type of Procedure Debridement Debridement Debridement -Clinical Debridement Subcutaneous Subcutaneous Subcutaneous -Tissue Removed Subcutaneous Subcutaneous Subcutaneous -Post Debridement (cm) - Length 2.5 8.6 9.5 -Post Debridement (cm) - Width 10.0 2.5 2.5 -Post Debridement (cm) - Depth 0.3 0.2 0.2 -Total Square (Post) (cm) 25.00 21.50 23.75 -Area of Debridement (cm) - Length 2.5 8.6 9.5 -Area of Debridement (cm) - Width 10.0 2.5 2.5 -Total Square (Area) (cm) 25.00 21.50 23.75 -Tunneling No No No -Undermining/Tunneling No No No -Circular Undermining No No No -Wound/Ulcer Outcome Not Healed Not Healed Not Healed -Ulcer Cleansing Rinsed/ Rinsed/ Rinsed/ Irrigated with Irrigated with Irrigated with Saline Saline Saline -Foul Odor after Cleansing No No No -Bioengineered Tissue No No No -Bleeding Controlled with Pressure Pressure Pressure -Treatment Response Procedure Procedure Procedure Tolerated Well Tolerated Well Tolerated Well -Offloading No No Yes -Type of Offloading Surgical Shoe -Debridement - Subq, 1st 20sq cm No No No #2 R Lat foot -Time 12:06 12:00 11:35 -Correct Patient Yes Yes Yes -Correct Side, Site, Position Yes Yes Yes -Correct Procedure Yes Yes Yes -Procedure Performed Yes Yes Yes -Type of Procedure Debridement Debridement Debridement -Clinical Debridement Subcutaneous Subcutaneous Subcutaneous -Tissue Removed Subcutaneous Subcutaneous Subcutaneous -Post Debridement (cm) - Length 3.0 3.0 8.5 -Post Debridement (cm) - Width 7.0 7.3 3.0 -Post Debridement (cm) - Depth 0.2 0.2 0.2 -Total Square (Post) (cm) 21.00 21.90 25.50 -Area of Debridement (cm) - Length 3.0 3.0 8.5 -Area of Debridement (cm) - Width 7.0 7.3 3.0 -Total Square (Area) (cm) 21.00 21.90 25.50 -Tunneling No No No -Undermining/Tunneling No No No -Circular Undermining No No No -Wound/Ulcer Outcome Not Healed Not Healed Not Healed -Ulcer Cleansing Rinsed/ Rinsed/ Rinsed/ Irrigated with Irrigated with Irrigated with Saline Saline Saline -Foul Odor after Cleansing No No No -Bioengineered Tissue No No No -Bleeding Controlled with Pressure Pressure Pressure -Treatment Response Procedure Procedure Procedure Tolerated Well Tolerated Well Tolerated Well -Offloading No No No -Debridement - Subq, 1st 20sq cm No No Yes Pain Scale: 0-10 Numeric Is Patient Pain Free? Yes Yes Yes - Nurse 3 - General Ulcer D/C NN Start: 02/05/23 11:27 Freq: Status: Active Protocol: Activity Type Activity Date Activity User E-sign Co-sign Detail Recorded Client Recorded Date Recorded By Document 02/05/23 12:19 [facility] [id number] 02/05/23 12:21 BM Document 02/19/23 12:23 MW [id number] 02/19/23 12:26 MW Document 02/26/23 12:09 RB [id number] 02/26/23 12:11 RB 02/05/23 02/19/23 02/26/23 12:19 12:23 12:09 [facility] Nurse 3 #11 R Buttocks -Ulcer Cleansing Rinsed/ Irrigated with Saline -Primary Dressing Applied Mepilex Border, Silvercel -Mepilex Border 1 -Silvercel 1 #4 L Lat Foot -Ulcer Cleansing Rinsed/ Irrigated with Saline -Foul Odor after Cleansing No -Primary Dressing Applied Silvercel -Other Dressing ABD; PER JUAN RAMON RN silvercel -Primary Dressing Covered/Secured with Dry Gauze & Dry Gauze,Dry Roll Gauze, Gauze & Roll Secured with Gauze,Secured Tape with Tape -Silvercel 0 #8 right lateral LE -Ulcer Cleansing Rinsed/ Rinsed/ Irrigated with Irrigated with Saline Saline -Foul Odor after Cleansing No -Primary Dressing Applied Silvercel Silvercel -Other Dressing ABD, PER JUAN RAMON RN -Primary Dressing Covered/Secured with Dry Gauze & Dry Gauze,Dry Roll Gauze, Gauze & Roll Secured with Gauze,Secured Tape with Tape -Silvercel 2 1 #6 R DORSAL foot -Ulcer Cleansing Rinsed/ Rinsed/ Rinsed/ Irrigated with Irrigated with Irrigated with Saline Saline Saline -Foul Odor after Cleansing No -Primary Dressing Applied Silvercel -Other Dressing ABD; PER JUAN RAMON RN silvercel hydrogel -Primary Dressing Covered/Secured with Dry Gauze & Dry Gauze,Dry Dry Gauze,Dry Roll Gauze, Gauze & Roll Gauze & Roll Secured with Gauze,Secured Gauze,Secured Tape with Tape with Tape -Silvercel 0 #5 L Med foot -Ulcer Cleansing Rinsed/ Rinsed/ Irrigated with Irrigated with Saline Saline -Foul Odor after Cleansing No -Primary Dressing Applied Silvercel Silvercel -Other Dressing ABD; PER JUAN RAMON RN silvercel abd -Primary Dressing Covered/Secured with Dry Gauze & Dry Gauze,Dry Dry Gauze,Dry Roll Gauze, Gauze & Roll Gauze & Roll Secured with Gauze,Secured Gauze,Secured Tape with Tape with Tape -Silvercel 0 1 #3 R Med Foot -Ulcer Cleansing Rinsed/ Rinsed/ Irrigated with Irrigated with Saline Saline -Foul Odor after Cleansing No -Primary Dressing Applied Silvercel Optilok 6.5x10 -Other Dressing ABD, PER JF RN silvercel silvercel -Primary Dressing Covered/Secured with Dry Gauze & Dry Gauze,Dry Dry Gauze,Dry Roll Gauze, Gauze & Roll Gauze & Roll Secured with Gauze,Secured Gauze,Secured Tape with Tape with Tape -Optilok 6.5x10 1 -Silvercel 0 #2 R Lat foot -Ulcer Cleansing Soap and Water Rinsed/ Irrigated with Saline -Foul Odor after Cleansing No -Primary Dressing Applied Silvercel -Other Dressing ABD, PER JUAN RAMON RN silvercel silvercel -Primary Dressing Covered/Secured with Dry Gauze & Dry Gauze,Dry Dry Gauze,Dry Roll Gauze, Gauze & Roll Gauze & Roll Secured with Gauze,Secured Gauze,Secured Tape with Tape with Tape -Silvercel 0 BLE -Compression Wrap Cole Wrap -Other cole cole Treatment Response Procedure Procedure Procedure Tolerated Well Tolerated Well Tolerated Well Pain Scale: 0-10 Numeric Is Patient Pain Free? Yes Yes Yes Teaching: Wound Center Dressing Your Wound -Person Taught Patient,Family -Teaching Method Discussion, Demonstration -Response to teaching Reinforcement needed WC - Visit Discharge Discharge Condition Stable Stable Stable Ambulatory Status Wheelchair Wheelchair Wheelchair Transportation Private Auto Private Auto Private Auto Accompanied by [facility] Medication Reconcilliation completed & No No provided to patient/care provider Clinical Summary of Care Provided Yes Yes Facility Type [facility] Additional Wound Wound debrided: Left medial ankle/lower extremity Type of Debridement: Excisional debridement Anesthesia Used: 5% Lidocaine Gel Depth: Down to and including healthy tissue and in the subcutaneous layer Percentage of wound debrided: 100 Instrument Used: 5mm curette Tissue Removed: Slough and devitalized tissue Severity: Fat Layer Exposed Amount of bleeding with debridement: Mild Bleeding Controlled with: Pressure Patient tolerated procedure: Patient tolerated procedure well Additional Wound Wound debrided: Right medial ankle/lower extremity Type of Debridement: Excisional debridement Anesthesia Used: 5% Lidocaine Gel Depth: Down to and including healthy tissue and in the subcutaneous layer Percentage of wound debrided: 100 Instrument Used: 5mm curette Tissue Removed: Slough and devitalized tissue Severity: Fat Layer Exposed Amount of bleeding with debridement: Mild Bleeding Controlled with: Pressure Patient tolerated procedure: Patient tolerated procedure well Additional Wound Wound debrided: Right Lateral leg Type of Debridement: Excisional debridement Anesthesia Used: 5% Lidocaine Gel Depth: Down to and including healthy tissue and in the subcutaneous layer Percentage of wound debrided: 100 Instrument Used: 5mm curette Tissue Removed: Slough and devitalized tissue Severity: Fat Layer Exposed Amount of bleeding with debridement: Mild Bleeding Controlled with: Pressure Patient tolerated procedure: Patient tolerated procedure well Additional Wound Wound debrided: Right Dorsal Foot Type of Debridement: Excisional debridement Anesthesia Used: 4% Lidocaine Solution Depth: Down to and including healthy tissue and in the subcutaneous layer Percentage of wound debrided: 100 Instrument Used: 7mm curette Tissue Removed: Slough and devitalized tissue Severity: Fat Layer Exposed Amount of bleeding with debridement: Mild Bleeding Controlled with: Pressure Patient tolerated procedure: Patient tolerated procedure well Assessment/Plan Assessment/Plan (1) Ulcer of right lower extremity with fat layer exposed: CODE(S): L97.912 - Non-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 (2) Ulcer of left lower extremity with fat layer exposed: CODE(S): L97.922 - Non-pressure chronic ulcer of unspecified part of left lower leg with fat layer exposed (3) Ulcer of right heel and midfoot with fat layer exposed: CODE(S): L97.412 - Non-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 Still significant slough/silver staining to right dorsal foot. Switch to Santyl. Continue silver alginate to other ulcers and cover with superabsorbent dressing. Change twice daily or more depending on drainage. Adaptic and gauze to the left lateral foot. Cole wrap to both extremities for edema management, still has significant edema. Leg elevation, optimize protein and nutrition. Their questions were answered and they were advised to let us know if they have any further questions or concerns. Follow up in 1 week or sooner if needed. This note was generated with [employer] dictation software. It may contain incorrect words, spelling, and punctuation that were not noted in checking the note before signing.
== END 2023-02-26 23:59 | disposition home or self-care (01) ==
LOC: WC 10:15
PROVIDERS: PCP Family Medicine; Referring Provider Family Medicine; Visit Provider Internal Medicine
DX: L97.412 Non-pressure chronic ulcer of right heel and midfoot with fat layer exposed (principal); L97.922 Non-pressure chronic ulcer of unspecified part of left lower leg with fat layer exposed; L97.912 Non-pressure chronic ulcer of unspecified part of right lower leg with fat layer exposed; I73.9 Peripheral vascular disease, unspecified; R53.81 Other malaise; G62.9 Polyneuropathy, unspecified
CPT/HCPCS: 11042; 11045; 99213; G0463

== ENCOUNTER 2023-03-26 11:30 | Outpatient (RCR) | payer MEDICARE, BC, SELFPAY ==
[2023-02-27 00:15] VITALS: BP 98/47; PULSE 65; RESP 16; TEMP 36
[2023-03-05 10:24] VITALS: BP 112/87; PULSE 88; RESP 16; TEMP 35.9
--- NOTE | 2023-03-05 12:28 | PCM.WC.PN ---
History of Present Illness Date of Service: 03/05/23 Chief Complaint: Nonhealing bilateral lower extremity ulcers History of Wound: Mr Wilson is an 82-year-old who was brought in here from his [place] [facility] facility due to nonhealing bilateral lower extremity ulcers. Has had recurrent ulcerations for over 10 years with most recent episode being more severe late last year. He was seen at the emergency room and subsequently advised to follow-up at a wound center which he did at [facility] without any significant improvement. A month ago, he was hospitalized for sepsis secondary to bilateral lower extremity ulcers. Following his admission and hospital stay, he did not return to the prior wound center. He reports a lot of drainage from his ulcers. They have been inconsistent dressing changes at his facility. He feels well otherwise and denies chills, fever. Currently has a PICC line and he is on IV vancomycin and cephalosporin. Progress of Wound: No new concerns at this time. Still a lot of moisture/maceration. Dorsal Ulcer with some improvement following Santyl. Objective Data Objective Data Vital Signs: Vital Signs Temp Pulse Resp BP 96.6 F L 88 16 112/87 H 03/05/23 10:24 03/05/23 10:24 03/05/23 10:24 03/05/23 10:24 Charges/Coding Procedures Integumentary 111xxx-113xx: [id number] Samina subq tissue 20 sq cm/< Add On Codes: 27982 Samina subq tissue add-on (x3. Additional square centimeter debrided, please refer to clinical note) Physical Exam Const alert and no apparent distress General Appearance: cooperative and comfortable HEENT normocephalic, head/scalp atraumatic and hearing grossly normal bilaterally Head and Scalp: normal to inspection, normocephalic and atraumatic Neck full ROM General: normal visual inspection Resp normal respiratory effort Effort and Inspection: able to speak in complete sentences Extremity General Extremity: deformity Skin Wounds: wounds noted Neuro CN's II-XII intact bilaterally, moves all extremities and no focal motor deficits Psych mental status grossly normal Appearance: grossly normal Attitude: calm Activity / Motor Behavior: appropriate eye contact Debridement Note Debridement Note Wound debrided: Right Lateral Ankle/Foot Type of Debridement: Excisional debridement Anesthesia Used: 4% Lidocaine Solution Depth: Down to and including healthy tissue and in the subcutaneous layer Percentage of wound debrided: 100 Instrument Used: 7mm curette Tissue Removed: Slough and devitalized tissue Severity: Fat Layer Exposed Amount of bleeding with debridement: Mild Bleeding Controlled with: Pressure Patient tolerated procedure: Patient tolerated procedure well Post-Debridement Measurements and Additional Note: Post-Debridement Measurements/Treatment - Nurse 1 - General Ulcer Assessment Start: 03/05/23 10:23 Freq: Status: Active Protocol: MARTA Activity Type Activity Date Activity User E-sign Co-sign Detail Recorded Client Recorded Date Recorded By Document 03/05/23 10:24 JF [id number] 03/05/23 10:37 03/05/23 10:24 - Today's Visit Information Type of service Follow-up Visit (Physician/COKE DRAWER ) Arrival Mode Wheelchair Transfer Assistance Manual Patient Identification Verified (Name & Yes ) Patient Requires Transmission-Based No Precautions Vital Signs Temperature (97.8 F-99.1 F) 96.6 F L Temperature Source Temporal Pulse Rate (60-100) 88 Pulse Location Monitor Respiratory Rate (12-18) 16 Respiratory rate source Observation Blood Pressure (90/60-120/80) 112/87 H Blood Pressure Mean (mm Hg) 95 Source Monitor Position Semi-Fowlers Blood Pressure Location Right Arm History Since Last Visit- (Skip if this is Patient's initial visit) Have you changed medications since your No last visit? Any new allergies or adverse reactions No Had a fall/change in ADL's that may No increase risk of falls Signs or symptoms of abuse and/or No neglect since last visit Have you been in the hospital since your No last visit? Has dressing in place as prescribed Yes Has compression in place as prescribed Yes Has offloadiing in place as prescribed Yes Experienced any changes in pain level or No management Left Footwear No Footwear Right Footwear No Footwear Pain Scale: 0-10 Numeric Is Patient Pain Free? Yes - Nurse 1 - General Ulcer Measurement Start: 03/05/23 10:23 Freq: Status: Active Protocol: Activity Type Activity Date Activity User E-sign Co-sign Detail Recorded Client Recorded Date Recorded By Document 03/05/23 10:24 JF [id number] 03/05/23 10:37 03/05/23 10:24 Wound Center Nurse 1 #10 right posterior LE -Combined with other wound No -Current Size (cm) - Length 0.1 -Current Size (cm) - Width 0.1 -Current Size (cm) - Depth 0.1 -Total Square Cm 0.01 -Photo Taken No -Epithelialization Large 67-100% -Tunneling No -Undermining/Tunneling No -Circular Undermining No -Exudate Type Serosanguineous -Wound Margin Indistinct, Non -Visible -Granulation Amt None Present (0 %) -Slough/Fibrin No -Structure Exposed N/A -Texture (Yuliet-wound Skin Appearance) Assessed, Localized Edema -Moisture (Yuliet-wound Skin Appearance) Assessed,Dry/ Scaly -Color (Yuliet-wound Skin Appearance) Assessed -Temperature (Yuliet-wound Skin No Abnormality Appearance) (Pt Warm) -Ulcer Cleansing Wound Cleanser -Foul Odor after Cleansing No -Anesthetic Used 4% Lidocaine Solution #8 right lateral LE -Combined with other wound No -Current Size (cm) - Length 0.1 -Current Size (cm) - Width 0.1 -Current Size (cm) - Depth 0.1 -Total Square Cm 0.01 -Photo Taken No -Epithelialization Small 1-33% -Tunneling No -Undermining/Tunneling No -Circular Undermining No -Exudate Amt Small -Exudate Type Serosanguineous -Wound Margin Flat & Intact -Granulation Amt None Present (0 %) -Slough/Fibrin No -Structure Exposed N/A -Texture (Yuliet-wound Skin Appearance) Assessed, Localized Edema -Moisture (Yuliet-wound Skin Appearance) Assessed,Dry/ Scaly -Color (Yuliet-wound Skin Appearance) Assessed -Temperature (Yuliet-wound Skin No Abnormality Appearance) (Pt Warm) -Tenderness on Palpation (Yuliet-wound No Skin Appearance) -Ulcer Cleansing Wound Cleanser -Foul Odor after Cleansing No -Anesthetic Used 4% Lidocaine Solution #6 R DORSAL foot -Combined with other wound No -Current Size (cm) - Length 2 -Current Size (cm) - Width 7 -Current Size (cm) - Depth 0.3 -Total Square Cm 14 -Photo Taken No -Epithelialization Small 1-33% -Tunneling No -Undermining/Tunneling No -Circular Undermining No -Exudate Amt Medium -Exudate Type Serosanguineous -Wound Margin Flat & Intact -Granulation Amt Medium (34-66%) -Granulation Quality Red -Slough/Fibrin Yes -Necrosis Amt Small (1-33%) -Necrotic Tissue Type Adherent Slough -Structure Exposed N/A -Texture (Yuliet-wound Skin Appearance) Assessed, Excoriation, Localized Edema -Moisture (Yuliet-wound Skin Appearance) Assessed -Color (Yuliet-wound Skin Appearance) Assessed, Hemosiderin Staining -Temperature (Yuliet-wound Skin No Abnormality Appearance) (Pt Warm) -Tenderness on Palpation (Yuliet-wound No Skin Appearance) -Ulcer Cleansing Wound Cleanser -Foul Odor after Cleansing No -Anesthetic Used 4% Lidocaine Solution #5 L Med foot -Combined with other wound No -Current Size (cm) - Length 1.6 -Current Size (cm) - Width 1.0 -Current Size (cm) - Depth 0.2 -Total Square Cm 1.60 -Photo Taken No -Epithelialization Medium 34-66% -Tunneling No -Undermining/Tunneling No -Circular Undermining No -Exudate Amt Medium -Exudate Type Serosanguineous -Wound Margin Flat & Intact -Granulation Amt Medium (34-66%) -Granulation Quality Red -Slough/Fibrin Yes -Necrosis Amt Medium (34-66%) -Necrotic Tissue Type Adherent Slough -Structure Exposed N/A -Texture (Yuliet-wound Skin Appearance) Assessed, Excoriation, Localized Edema -Moisture (Yuliet-wound Skin Appearance) Assessed, Maceration, Weeping -Color (Yuliet-wound Skin Appearance) Assessed, Hemosiderin Staining -Temperature (Yuliet-wound Skin Cool/Cold Appearance) -Tenderness on Palpation (Yuliet-wound No Skin Appearance) -Ulcer Cleansing Wound Cleanser -Foul Odor after Cleansing No -Anesthetic Used 4% Lidocaine Solution #3 R Med Foot -Combined with other wound No -Current Size (cm) - Length 2.4 -Current Size (cm) - Width 9 -Current Size (cm) - Depth 0.3 -Total Square Cm 21.6 -Photo Taken No -Epithelialization Small 1-33% -Tunneling No -Undermining/Tunneling No -Circular Undermining No -Exudate Amt Large -Exudate Type Serosanguineous -Wound Margin Flat & Intact -Granulation Amt Medium (34-66%) -Granulation Quality Red -Slough/Fibrin Yes -Necrosis Amt Medium (34-66%) -Necrotic Tissue Type Adherent Slough -Structure Exposed N/A -Texture (Yuliet-wound Skin Appearance) Assessed, Excoriation, Localized Edema -Moisture (Yuliet-wound Skin Appearance) Assessed -Color (Yuliet-wound Skin Appearance) Assessed, Hemosiderin Staining -Temperature (Yuliet-wound Skin No Abnormality Appearance) (Pt Warm) -Tenderness on Palpation (Yuliet-wound No Skin Appearance) -Ulcer Cleansing Wound Cleanser -Foul Odor after Cleansing No -Anesthetic Used 4% Lidocaine Solution #2 R Lat foot -Combined with other wound No -Current Size (cm) - Length 3 -Current Size (cm) - Width 8 -Current Size (cm) - Depth 0.3 -Total Square Cm 24 -Photo Taken No -Epithelialization Small 1-33% -Tunneling No -Undermining/Tunneling No -Circular Undermining No -Exudate Amt Medium -Exudate Type Serosanguineous -Wound Margin Flat & Intact -Granulation Amt Medium (34-66%) -Granulation Quality Red -Slough/Fibrin Yes -Necrosis Amt Medium (34-66%) -Necrotic Tissue Type Adherent Slough -Structure Exposed N/A -Texture (Yuliet-wound Skin Appearance) Assessed, Friable, Localized Edema -Moisture (Yuliet-wound Skin Appearance) Assessed, Maceration,Dry/ Scaly -Color (Yuliet-wound Skin Appearance) Assessed, Hemosiderin Staining -Temperature (Yuliet-wound Skin No Abnormality Appearance) (Pt Warm) -Tenderness on Palpation (Yuliet-wound No Skin Appearance) -Ulcer Cleansing Wound Cleanser -Foul Odor after Cleansing No -Anesthetic Used 4% Lidocaine Solution Lower Limb Edema Present Yes Right Calf (cm) 33.1 Right Ankle (cm) 23.1 Left Calf (cm) 38 Left Ankle (cm) 23 - Nurse 2 - General Ulcer CM Notes Start: 03/05/23 10:23 Freq: Status: Active Protocol: Activity Type Activity Date Activity User E-sign Co-sign Detail Recorded Client Recorded Date Recorded By Document 03/05/23 10:41 JUAN RAMON [id number] 03/05/23 11:05 JUAN RAMON 03/05/23 10:41 Wound Center Nurse 2 #8 right lateral LE -Time 10:45 -Correct Patient Yes -Correct Side, Site, Position Yes -Correct Procedure Yes -Procedure Performed Yes -Type of Procedure Debridement -Clinical Debridement Subcutaneous -Tissue Removed Subcutaneous -Post Debridement (cm) - Length 3.1 -Post Debridement (cm) - Width 9 -Post Debridement (cm) - Depth 0.1 -Total Square (Post) (cm) 27.9 -Area of Debridement (cm) - Length 3.1 -Area of Debridement (cm) - Width 9 -Total Square (Area) (cm) 27.9 -Tunneling No -Undermining/Tunneling No -Circular Undermining No -Wound/Ulcer Outcome Not Healed -Ulcer Cleansing Rinsed/ Irrigated with Saline -Foul Odor after Cleansing No -Bioengineered Tissue No -Bleeding Controlled with Pressure -Treatment Response Procedure Tolerated Well -Offloading No -Debridement - Subq, 1st 20sq cm No #6 R DORSAL foot -Time 10:45 -Correct Patient Yes -Correct Side, Site, Position Yes -Correct Procedure Yes -Procedure Performed Yes -Type of Procedure Debridement -Clinical Debridement Subcutaneous -Tissue Removed Subcutaneous -Post Debridement (cm) - Length 2.5 -Post Debridement (cm) - Width 7 -Post Debridement (cm) - Depth 0.2 -Total Square (Post) (cm) 17.5 -Area of Debridement (cm) - Length 2.5 -Area of Debridement (cm) - Width 7 -Total Square (Area) (cm) 17.5 -Tunneling No -Undermining/Tunneling No -Circular Undermining No -Wound/Ulcer Outcome Not Healed -Ulcer Cleansing Rinsed/ Irrigated with Saline -Foul Odor after Cleansing No -Bioengineered Tissue No -Bleeding Controlled with Pressure -Treatment Response Procedure Tolerated Well -Offloading No -Debridement - Subq, 1st 20sq cm No #5 L Med foot -Time 10:46 -Correct Patient Yes -Correct Side, Site, Position Yes -Correct Procedure Yes -Procedure Performed Yes -Type of Procedure Debridement -Clinical Debridement Subcutaneous -Tissue Removed Subcutaneous -Post Debridement (cm) - Length 1.6 -Post Debridement (cm) - Width 1.3 -Post Debridement (cm) - Depth 0.2 -Total Square (Post) (cm) 2.08 -Area of Debridement (cm) - Length 1.6 -Area of Debridement (cm) - Width 1.3 -Total Square (Area) (cm) 2.08 -Tunneling No -Undermining/Tunneling No -Circular Undermining No -Wound/Ulcer Outcome Not Healed -Ulcer Cleansing Rinsed/ Irrigated with Saline -Foul Odor after Cleansing No -Bioengineered Tissue No -Bleeding Controlled with Pressure -Treatment Response Procedure Tolerated Well -Offloading No -Debridement - Subq, 1st 20sq cm No #3 R Med Foot -Time 10:46 -Correct Patient Yes -Correct Side, Site, Position Yes -Correct Procedure Yes -Procedure Performed Yes -Type of Procedure Debridement -Clinical Debridement Subcutaneous -Tissue Removed Subcutaneous -Post Debridement (cm) - Length 2.5 -Post Debridement (cm) - Width 9 -Post Debridement (cm) - Depth 0.2 -Total Square (Post) (cm) 22.5 -Area of Debridement (cm) - Length 2.5 -Area of Debridement (cm) - Width 9 -Total Square (Area) (cm) 22.5 -Tunneling No -Undermining/Tunneling No -Circular Undermining No -Wound/Ulcer Outcome Not Healed -Ulcer Cleansing Rinsed/ Irrigated with Saline -Foul Odor after Cleansing No -Bioengineered Tissue No -Bleeding Controlled with Pressure -Treatment Response Procedure Tolerated Well -Offloading No -Debridement - Subq, 1st 20sq cm No #2 R Lat foot -Time 10:47 -Correct Patient Yes -Correct Side, Site, Position Yes -Correct Procedure Yes -Procedure Performed Yes -Type of Procedure Debridement -Tissue Removed Epidermis, Subcutaneous -Post Debridement (cm) - Length 0.7 -Post Debridement (cm) - Width 0.4 -Post Debridement (cm) - Depth 0.1 -Total Square (Post) (cm) 0.28 -Area of Debridement (cm) - Length 0.7 -Area of Debridement (cm) - Width 0.4 -Total Square (Area) (cm) 0.28 -Tunneling No -Circular Undermining No -Wound/Ulcer Outcome Not Healed -Ulcer Cleansing Rinsed/ Irrigated with Saline -Foul Odor after Cleansing No -Bioengineered Tissue No -Bleeding Controlled with Pressure -Treatment Response Procedure Tolerated Well -Offloading No -Debridement - Subq, 1st 20sq cm Yes -Debridement, SubQ, ea addt'l 20sq cm 3 or part thereof Pain Scale: 0-10 Numeric Is Patient Pain Free? Yes WC - Nurse 3 - General Ulcer D/C NN Start: 03/05/23 10:23 Freq: Status: Active Protocol: Activity Type Activity Date Activity User E-sign Co-sign Detail Recorded Client Recorded Date Recorded By Document 03/05/23 12:19 JERILYN [id number] 03/05/23 12:22 JERILYN 03/05/23 12:19 Wound Care Center Nurse 3 #8 right lateral LE -Primary Dressing Applied Hysept ($) -Other Dressing dakins moistened gauze -Primary Dressing Covered/Secured with Dry Gauze & Roll Gauze, Secured with Tape #6 R DORSAL foot -Other Dressing hydrogel -Primary Dressing Covered/Secured with Dry Gauze & Roll Gauze, Secured with Tape #5 L Med foot -Other Dressing dakins moistened gauze -Primary Dressing Covered/Secured with Dry Gauze & Roll Gauze, Secured with Tape #3 R Med Foot -Other Dressing dakins moistened gauze -Primary Dressing Covered/Secured with Dry Gauze & Roll Gauze, Secured with Tape #2 R Lat foot -Other Dressing dakins moistened guze -Primary Dressing Covered/Secured with Dry Gauze & Roll Gauze, Secured with Tape -Other Covering abd Right -Other cole Left -Other cole Treatment Response Procedure Tolerated Well Pain Scale: 0-10 Numeric Is Patient Pain Free? Yes WC - Visit Discharge Discharge Condition Stable Ambulatory Status Walker, Wheelchair Transportation Private Auto Medication Reconcilliation completed & No provided to patient/care provider Clinical Summary of Care Provided Yes Additional Wound Wound debrided: Left medial ankle/lower extremity Type of Debridement: Excisional debridement Anesthesia Used: 5% Lidocaine Gel Depth: Down to and including healthy tissue and in the subcutaneous layer Percentage of wound debrided: 100 Instrument Used: 5mm curette Tissue Removed: Slough and devitalized tissue Severity: Fat Layer Exposed Amount of bleeding with debridement: Mild Bleeding Controlled with: Pressure Patient tolerated procedure: Patient tolerated procedure well Additional Wound Wound debrided: Right medial ankle/lower extremity Type of Debridement: Excisional debridement Anesthesia Used: 5% Lidocaine Gel Depth: Down to and including healthy tissue and in the subcutaneous layer Percentage of wound debrided: 100 Instrument Used: 5mm curette Tissue Removed: Slough and devitalized tissue Severity: Fat Layer Exposed Amount of bleeding with debridement: Mild Bleeding Controlled with: Pressure Patient tolerated procedure: Patient tolerated procedure well Additional Wound Wound debrided: Right Lateral leg Type of Debridement: Excisional debridement Anesthesia Used: 5% Lidocaine Gel Depth: Down to and including healthy tissue and in the subcutaneous layer Percentage of wound debrided: 100 Instrument Used: 5mm curette Tissue Removed: Slough and devitalized tissue Severity: Fat Layer Exposed Amount of bleeding with debridement: Mild Bleeding Controlled with: Pressure Patient tolerated procedure: Patient tolerated procedure well Additional Wound Wound debrided: Right Dorsal Foot Type of Debridement: Excisional debridement Anesthesia Used: 4% Lidocaine Solution Depth: Down to and including healthy tissue and in the subcutaneous layer Percentage of wound debrided: 100 Instrument Used: 7mm curette Tissue Removed: Slough and devitalized tissue Severity: Fat Layer Exposed Amount of bleeding with debridement: Mild Bleeding Controlled with: Pressure Patient tolerated procedure: Patient tolerated procedure well Assessment/Plan Assessment/Plan (1) Ulcer of right lower extremity with fat layer exposed: CODE(S): L97.912 - Non-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 (2) Ulcer of left lower extremity with fat layer exposed: CODE(S): L97.922 - Non-pressure chronic ulcer of unspecified part of left lower leg with fat layer exposed (3) Ulcer of right heel and midfoot with fat layer exposed: CODE(S): L97.412 - Non-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 Slough burden to right dorsal foot improved, continue Santyl. Other areas with no significant improvement or change. We will switch to lightly moistened Dakin's/gauze dressing. Change twice daily or more depending on drainage. Cole wrap to both extremities for edema management, still has significant edema. Leg elevation, optimized protein and nutrition again very strongly recommended. Vascular studies ordered, will review. Additional records from [facility] also requested. Patient is open to intervention if needed. Has had procedures done in the past and he states that he was told that his flow was normal. Their questions were answered and they were advised to let us know if they have any further questions or concerns. Follow up in 1 week or sooner if needed. This note was generated with [employer] software. It may contain incorrect words, spelling, and punctuation that were not noted in checking the note before signing.
[2023-03-12 11:52] VITALS: RESP 16; TEMP 36.2
--- NOTE | 2023-03-12 12:05 | WC ---
Yartiza Woodruff assisted with measuring wounds
--- NOTE | 2023-03-12 13:12 | PN.PCM_ITS ---
History of Present Illness Date of Service: 03/12/23 Chief Complaint: Nonhealing bilateral lower extremity ulcers History of Wound: Mr Wilson is an 82-year-old who was brought in here from his alf due to nonhealing bilateral lower extremity ulcers. Has had recurrent ulcerations for over 10 years with most recent episode being more severe late last year. He was seen at the emergency room and subsequently advised to follow-up at a wound center which he did at [facility] without any significant improvement. A month ago, he was hospitalized for sepsis secondary to bilateral lower extremity ulcers. Following his admission and hospital stay, he did not return to the prior wound center. He reports a lot of drainage from his ulcers. They have been inconsistent dressing changes at his facility. He feels well otherwise and denies chills, fever. Currently has a PICC line and he is on IV vancomycin and cephalosporin. Progress of Wound: No new reported concerns at this time. Still a lot of moisture/maceration. Dorsal Ulcer with some improvement following Santyl. Objective Data Objective Data Vital Signs: Vital Signs Temp Pulse Resp BP O2 Del Method 97.2 F L 88 16 112/87 H Room Air 03/12/23 11:52 03/05/23 10:24 03/12/23 11:52 03/05/23 10:24 03/12/23 11:52 Oxygen Delivery Method Room Air Charges/Coding Procedures Integumentary 111xxx-113xx: [id number] Samina subq tissue 20 sq cm/< Add On Codes: 00913 Samina subq tissue add-on (x3. Additional Sq Cm debrided, please refer to clinical note) Physical Exam Const alert and no apparent distress General Appearance: cooperative and comfortable HEENT normocephalic, head/scalp atraumatic and hearing grossly normal bilaterally Head and Scalp: normal to inspection, normocephalic and atraumatic Neck full ROM General: normal visual inspection Resp normal respiratory effort Effort and Inspection: able to speak in complete sentences Extremity General Extremity: deformity Skin Wounds: wounds noted Neuro CN's II-XII intact bilaterally, moves all extremities and no focal motor deficits Psych mental status grossly normal Appearance: grossly normal Attitude: calm Activity / Motor Behavior: appropriate eye contact Debridement Note Debridement Note Wound debrided: Right Lateral Ankle/Foot Type of Debridement: Excisional debridement Anesthesia Used: 5% Lidocaine Gel Depth: Down to and including healthy tissue and in the subcutaneous layer Percentage of wound debrided: 100 Instrument Used: 7mm curette Tissue Removed: Slough and devitalized tissue Severity: Fat Layer Exposed Amount of bleeding with debridement: Mild Bleeding Controlled with: Pressure Patient tolerated procedure: Patient tolerated procedure well Post-Debridement Measurements and Additional Note: Post-Debridement Measurements/Treatment - Nurse 1 - General Ulcer Assessment Start: 03/05/23 10:23 Freq: Status: Active Protocol: MARTA Activity Type Activity Date Activity User E-sign Co-sign Detail Recorded Client Recorded Date Recorded By Document 03/05/23 10:24 [id number] 03/05/23 10:37 Document 03/12/23 11:52 [facility] [id number] 03/12/23 12:06 [facility] 03/05/23 03/12/23 10:24 11:52 - Today's Visit Information Type of service Follow-up Visit Follow-up Visit (Physician/UNDERWRITER (Physician/UNDERWRITER ) ) Arrival Mode Wheelchair Wheelchair Transfer Assistance Manual Other Transfer Assist (Other) 2 Accompanied by sister Patient Identification Verified (Name & Yes Yes ) Patient Requires Transmission-Based No No Precautions Vital Signs Temperature (97.8 F-99.1 F) 96.6 F L 97.2 F L Temperature Source Temporal Temporal Pulse Rate (60-100) 88 Pulse Location Monitor Monitor Respiratory Rate (12-18) 16 16 Respiratory rate source Observation Observation Oxygen Delivery Method Room Air Blood Pressure (90/60-120/80) 112/87 H Blood Pressure Mean (mm Hg) 95 Source Monitor Monitor Position Semi-Fowlers Sitting Blood Pressure Location Right Arm Right Forearm History Since Last Visit- (Skip if this is Patient's initial visit) Have you changed medications since your No No last visit? Any new allergies or adverse reactions No No Had a fall/change in ADL's that may No No increase risk of falls Signs or symptoms of abuse and/or No No neglect since last visit Have you been in the hospital since your No No last visit? Has dressing in place as prescribed Yes Yes Has compression in place as prescribed Yes Yes Has offloadiing in place as prescribed Yes Yes Experienced any changes in pain level or No No management Left Footwear No Footwear Surgical Shoe with pressure relief insole Right Footwear No Footwear Wedge Shoe Pain Scale: 0-10 Numeric Is Patient Pain Free? Yes Yes WC - Nurse 1 - General Ulcer Measurement Start: 03/05/23 10:23 Freq: Status: Active Protocol: Activity Type Activity Date Activity User E-sign Co-sign Detail Recorded Client Recorded Date Recorded By Document 03/05/23 10:24 JUAN RAMON [id number] 03/05/23 10:37 Document 03/12/23 11:52 [facility] [id number] 03/12/23 12:06 [facility] 03/05/23 03/12/23 10:24 11:52 Wound Center Nurse 1 #10 right posterior LE -Combined with other wound No -Current Size (cm) - Length 0.1 -Current Size (cm) - Width 0.1 -Current Size (cm) - Depth 0.1 -Total Square Cm 0.01 -Photo Taken No -Epithelialization Large 67-100% -Tunneling No -Undermining/Tunneling No -Circular Undermining No -Exudate Type Serosanguineous -Wound Margin Indistinct, Non -Visible -Granulation Amt None Present (0 %) -Slough/Fibrin No -Structure Exposed N/A -Texture (Yuliet-wound Skin Appearance) Assessed, Localized Edema -Moisture (Yuliet-wound Skin Appearance) Assessed,Dry/ Scaly -Color (Yuliet-wound Skin Appearance) Assessed -Temperature (Yuliet-wound Skin No Abnormality Appearance) (Pt Warm) -Ulcer Cleansing Wound Cleanser -Foul Odor after Cleansing No -Anesthetic Used 4% Lidocaine Solution #8 right lateral LE -Combined with other wound No No -Current Size (cm) - Length 0.1 0.7 -Current Size (cm) - Width 0.1 1.3 -Current Size (cm) - Depth 0.1 0.1 -Total Square Cm 0.01 0.91 -Photo Taken No -Epithelialization Small 1-33% -Tunneling No No -Undermining/Tunneling No No -Circular Undermining No No -Exudate Amt Small Medium -Exudate Type Serosanguineous Serosanguineous -Wound Margin Flat & Intact Distinct, Outline Attached -Granulation Amt None Present (0 Medium (34-66%) %) -Granulation Quality Ben Arnold -Slough/Fibrin No Yes -Necrosis Amt Large (67-100%) -Necrotic Tissue Type Adherent Slough -Structure Exposed N/A N/A -Texture (Yuliet-wound Skin Appearance) Assessed, Assessed Localized Edema -Moisture (Yuliet-wound Skin Appearance) Assessed,Dry/ Assessed,Dry/ Scaly Scaly -Color (Yuliet-wound Skin Appearance) Assessed Assessed -Temperature (Yuliet-wound Skin No Abnormality No Abnormality Appearance) (Pt Warm) (Pt Warm) -Tenderness on Palpation (Yuliet-wound No No Skin Appearance) -Ulcer Cleansing Wound Cleanser Wound Cleanser -Foul Odor after Cleansing No No -Anesthetic Used 4% Lidocaine 4% Lidocaine Solution Solution #6 R DORSAL foot -Combined with other wound No -Current Size (cm) - Length 2 2 -Current Size (cm) - Width 7 6.2 -Current Size (cm) - Depth 0.3 0.3 -Total Square Cm 14 12.4 -Photo Taken No -Epithelialization Small 1-33% -Tunneling No No -Undermining/Tunneling No No -Circular Undermining No No -Exudate Amt Medium Medium -Exudate Type Serosanguineous Serosanguineous -Wound Margin Flat & Intact Distinct, Outline Attached -Granulation Amt Medium (34-66%) Medium (34-66%) -Granulation Quality Red Ben Arnold -Slough/Fibrin Yes Yes -Necrosis Amt Small (1-33%) Medium (34-66%) -Necrotic Tissue Type Adherent Slough Adherent Slough -Structure Exposed N/A N/A -Texture (Yuliet-wound Skin Appearance) Assessed, Assessed Excoriation, Localized Edema -Moisture (Yuliet-wound Skin Appearance) Assessed Assessed -Color (Yuliet-wound Skin Appearance) Assessed, Assessed Hemosiderin Staining -Temperature (Yuliet-wound Skin No Abnormality No Abnormality Appearance) (Pt Warm) (Pt Warm) -Tenderness on Palpation (Yuliet-wound No No Skin Appearance) -Ulcer Cleansing Wound Cleanser Wound Cleanser -Foul Odor after Cleansing No No -Anesthetic Used 4% Lidocaine 4% Lidocaine Solution Solution #5 L Med foot -Combined with other wound No No -Current Size (cm) - Length 1.6 0.1 -Current Size (cm) - Width 1.0 0.1 -Current Size (cm) - Depth 0.2 0.1 -Total Square Cm 1.60 0.01 -Photo Taken No -Epithelialization Medium 34-66% -Tunneling No No -Undermining/Tunneling No No -Circular Undermining No No -Exudate Amt Medium Medium -Exudate Type Serosanguineous Serosanguineous -Wound Margin Flat & Intact Distinct, Outline Attached -Granulation Amt Medium (34-66%) Medium (34-66%) -Granulation Quality Red Ben Arnold -Slough/Fibrin Yes Yes -Necrosis Amt Medium (34-66%) Medium (34-66%) -Necrotic Tissue Type Adherent Slough Adherent Slough -Structure Exposed N/A N/A -Texture (Yuliet-wound Skin Appearance) Assessed, Assessed Excoriation, Localized Edema -Moisture (Yuliet-wound Skin Appearance) Assessed, Assessed Maceration, Weeping -Color (Yuliet-wound Skin Appearance) Assessed, Assessed Hemosiderin Staining -Temperature (Yuliet-wound Skin Cool/Cold No Abnormality Appearance) (Pt Warm) -Tenderness on Palpation (Yuliet-wound No No Skin Appearance) -Ulcer Cleansing Wound Cleanser Wound Cleanser -Foul Odor after Cleansing No No -Anesthetic Used 4% Lidocaine 4% Lidocaine Solution Solution #3 R Med Foot -Combined with other wound No No -Current Size (cm) - Length 2.4 10 -Current Size (cm) - Width 9 2 -Current Size (cm) - Depth 0.3 0.3 -Total Square Cm 21.6 20 -Photo Taken No -Epithelialization Small 1-33% -Tunneling No No -Undermining/Tunneling No No -Circular Undermining No No -Exudate Amt Large Medium -Exudate Type Serosanguineous Serosanguineous -Wound Margin Flat & Intact Distinct, Outline Attached -Granulation Amt Medium (34-66%) Large (67-100%) -Granulation Quality Red Ben Arnold -Slough/Fibrin Yes Yes -Necrosis Amt Medium (34-66%) Medium (34-66%) -Necrotic Tissue Type Adherent Slough Adherent Slough -Structure Exposed N/A N/A -Texture (Yuliet-wound Skin Appearance) Assessed, Assessed Excoriation, Localized Edema -Moisture (Yuliet-wound Skin Appearance) Assessed Assessed -Color (Yuliet-wound Skin Appearance) Assessed, Assessed Hemosiderin Staining -Temperature (Yuliet-wound Skin No Abnormality No Abnormality Appearance) (Pt Warm) (Pt Warm) -Tenderness on Palpation (Yuliet-wound No No Skin Appearance) -Ulcer Cleansing Wound Cleanser Wound Cleanser -Foul Odor after Cleansing No No -Anesthetic Used 4% Lidocaine 4% Lidocaine Solution Solution #2 R Lat foot -Combined with other wound No No -Current Size (cm) - Length 3 1.8 -Current Size (cm) - Width 8 1 -Current Size (cm) - Depth 0.3 0.3 -Total Square Cm 24 1.8 -Photo Taken No -Epithelialization Small 1-33% -Tunneling No No -Undermining/Tunneling No No -Circular Undermining No No -Exudate Amt Medium Medium -Exudate Type Serosanguineous Serosanguineous -Wound Margin Flat & Intact Distinct, Outline Attached -Granulation Amt Medium (34-66%) Medium (34-66%) -Granulation Quality Red Ben Arnold -Slough/Fibrin Yes Yes -Necrosis Amt Medium (34-66%) Medium (34-66%) -Necrotic Tissue Type Adherent Slough Adherent Slough -Structure Exposed N/A N/A -Texture (Yuliet-wound Skin Appearance) Assessed, Assessed Friable, Localized Edema -Moisture (Yuliet-wound Skin Appearance) Assessed, Assessed Maceration,Dry/ Scaly -Color (Yuliet-wound Skin Appearance) Assessed, Assessed Hemosiderin Staining -Temperature (Yuliet-wound Skin No Abnormality Appearance) (Pt Warm) -Tenderness on Palpation (Yuliet-wound No No Skin Appearance) -Ulcer Cleansing Wound Cleanser Wound Cleanser -Foul Odor after Cleansing No Yes, Due to Product Use -Anesthetic Used 4% Lidocaine 4% Lidocaine Solution Solution Lower Limb Edema Present Yes Right Calf (cm) 33.1 Right Ankle (cm) 23.1 Left Calf (cm) 38 Left Ankle (cm) 23 03/12/23 12:05 Wound Center by Yaritza Woodruff assisted with measuring wounds Initialized on 03/12/23 12:05 - END OF NOTE WC - Nurse 2 - General Ulcer CM Notes Start: 03/05/23 10:23 Freq: Status: Active Protocol: Activity Type Activity Date Activity User E-sign Co-sign Detail Recorded Client Recorded Date Recorded By Document 03/05/23 10:41 JUAN RAMON [id number] 03/05/23 11:05 JF Document 03/12/23 12:19 JUAN RAMON [id number] 03/12/23 12:42 JUAN RAMON 03/05/23 03/12/23 10:41 12:19 Wound Center Nurse 2 #8 right lateral LE -Time 10:45 12:19 -Correct Patient Yes Yes -Correct Side, Site, Position Yes Yes -Correct Procedure Yes Yes -Procedure Performed Yes Yes -Type of Procedure Debridement Debridement -Clinical Debridement Subcutaneous Subcutaneous -Tissue Removed Subcutaneous Subcutaneous -Post Debridement (cm) - Length 3.1 0.9 -Post Debridement (cm) - Width 9 1.3 -Post Debridement (cm) - Depth 0.1 0.1 -Total Square (Post) (cm) 27.9 1.17 -Area of Debridement (cm) - Length 3.1 0.9 -Area of Debridement (cm) - Width 9 1.3 -Total Square (Area) (cm) 27.9 1.17 -Tunneling No No -Undermining/Tunneling No No -Circular Undermining No No -Wound/Ulcer Outcome Not Healed Not Healed -Ulcer Cleansing Rinsed/ Rinsed/ Irrigated with Irrigated with Saline Saline -Foul Odor after Cleansing No No -Bioengineered Tissue No No -Bleeding Controlled with Pressure Pressure -Treatment Response Procedure Procedure Tolerated Well Tolerated Well -Offloading No No -Debridement - Subq, 1st 20sq cm No No #6 R DORSAL foot -Time 10:45 12:20 -Correct Patient Yes Yes -Correct Side, Site, Position Yes Yes -Correct Procedure Yes Yes -Procedure Performed Yes Yes -Type of Procedure Debridement Debridement -Clinical Debridement Subcutaneous Subcutaneous -Tissue Removed Subcutaneous Subcutaneous -Post Debridement (cm) - Length 2.5 2.5 -Post Debridement (cm) - Width 7 7.0 -Post Debridement (cm) - Depth 0.2 0.2 -Total Square (Post) (cm) 17.5 17.50 -Area of Debridement (cm) - Length 2.5 2.5 -Area of Debridement (cm) - Width 7 7.0 -Total Square (Area) (cm) 17.5 17.50 -Tunneling No No -Undermining/Tunneling No No -Circular Undermining No No -Wound/Ulcer Outcome Not Healed Not Healed -Ulcer Cleansing Rinsed/ Rinsed/ Irrigated with Irrigated with Saline Saline -Foul Odor after Cleansing No No -Bioengineered Tissue No No -Bleeding Controlled with Pressure Pressure -Treatment Response Procedure Procedure Tolerated Well Tolerated Well -Offloading No No -Debridement - Subq, 1st 20sq cm No No #5 L Med foot -Time 10:46 12:20 -Correct Patient Yes Yes -Correct Side, Site, Position Yes Yes -Correct Procedure Yes Yes -Procedure Performed Yes Yes -Type of Procedure Debridement Debridement -Clinical Debridement Subcutaneous Subcutaneous -Tissue Removed Subcutaneous Subcutaneous -Post Debridement (cm) - Length 1.6 2.5 -Post Debridement (cm) - Width 1.3 1.3 -Post Debridement (cm) - Depth 0.2 0.2 -Total Square (Post) (cm) 2.08 3.25 -Area of Debridement (cm) - Length 1.6 2.5 -Area of Debridement (cm) - Width 1.3 1.3 -Total Square (Area) (cm) 2.08 3.25 -Tunneling No No -Undermining/Tunneling No No -Circular Undermining No No -Wound/Ulcer Outcome Not Healed Not Healed -Ulcer Cleansing Rinsed/ Rinsed/ Irrigated with Irrigated with Saline Saline -Foul Odor after Cleansing No No -Bioengineered Tissue No No -Bleeding Controlled with Pressure Pressure -Treatment Response Procedure Procedure Tolerated Well Tolerated Well -Offloading No No -Debridement - Subq, 1st 20sq cm No Yes -Debridement, SubQ, ea addt'l 20sq cm 3 or part thereof #3 R Med Foot -Time 10:46 12:23 -Correct Patient Yes Yes -Correct Side, Site, Position Yes Yes -Correct Procedure Yes Yes -Procedure Performed Yes Yes -Type of Procedure Debridement Debridement -Clinical Debridement Subcutaneous Subcutaneous -Tissue Removed Subcutaneous Subcutaneous -Post Debridement (cm) - Length 2.5 2.5 -Post Debridement (cm) - Width 9 9.0 -Post Debridement (cm) - Depth 0.2 0.3 -Total Square (Post) (cm) 22.5 22.50 -Area of Debridement (cm) - Length 2.5 2.5 -Area of Debridement (cm) - Width 9 9.0 -Total Square (Area) (cm) 22.5 22.50 -Tunneling No No -Undermining/Tunneling No No -Circular Undermining No No -Wound/Ulcer Outcome Not Healed Not Healed -Ulcer Cleansing Rinsed/ Rinsed/ Irrigated with Irrigated with Saline Saline -Foul Odor after Cleansing No No -Bioengineered Tissue No No -Bleeding Controlled with Pressure Pressure -Treatment Response Procedure Procedure Tolerated Well Tolerated Well -Offloading No No -Debridement - Subq, 1st 20sq cm No No #2 R Lat foot -Time 10:47 12:26 -Correct Patient Yes Yes -Correct Side, Site, Position Yes Yes -Correct Procedure Yes Yes -Procedure Performed Yes Yes -Type of Procedure Debridement Debridement -Clinical Debridement Subcutaneous -Tissue Removed Epidermis, Subcutaneous Subcutaneous -Post Debridement (cm) - Length 0.7 2.8 -Post Debridement (cm) - Width 0.4 9.0 -Post Debridement (cm) - Depth 0.1 0.3 -Total Square (Post) (cm) 0.28 25.20 -Area of Debridement (cm) - Length 0.7 2.8 -Area of Debridement (cm) - Width 0.4 9.0 -Total Square (Area) (cm) 0.28 25.20 -Tunneling No No -Undermining/Tunneling No -Circular Undermining No No -Wound/Ulcer Outcome Not Healed Not Healed -Ulcer Cleansing Rinsed/ Rinsed/ Irrigated with Irrigated with Saline Saline -Foul Odor after Cleansing No No -Bioengineered Tissue No No -Bleeding Controlled with Pressure Pressure -Treatment Response Procedure Procedure Tolerated Well Tolerated Well -Offloading No No -Debridement - Subq, 1st 20sq cm Yes No -Debridement, SubQ, ea addt'l 20sq cm 3 or part thereof Pain Scale: 0-10 Numeric Is Patient Pain Free? Yes Yes - Nurse 3 - General Ulcer D/C NN Start: 03/05/23 10:23 Freq: Status: Active Protocol: Activity Type Activity Date Activity User E-sign Co-sign Detail Recorded Client Recorded Date Recorded By Document 03/05/23 12:19 RB [id number] 03/05/23 12:22 RB Document 03/12/23 13:01 [id number] 03/12/23 13:04 03/05/23 03/12/23 12:19 13:01 Wound Care Center Nurse 3 #8 right lateral LE -Ulcer Cleansing Rinsed/ Irrigated with Saline -Foul Odor after Cleansing No -Primary Dressing Applied Hysept ($) Aquacel Extra -Other Dressing dakins moistened gauze -Primary Dressing Covered/Secured with Dry Gauze & Dry Gauze & Roll Gauze, Roll Gauze Secured with Tape -Aquacel Extra 2 #6 R DORSAL foot -Ulcer Cleansing Rinsed/ Irrigated with Saline -Foul Odor after Cleansing No -Primary Dressing Applied Aquacel Extra -Other Dressing hydrogel -Primary Dressing Covered/Secured with Dry Gauze & Dry Gauze & Roll Gauze, Roll Gauze, Secured with Secured with Tape Tape -Aquacel Extra 0 #5 L Med foot -Ulcer Cleansing Rinsed/ Irrigated with Saline -Foul Odor after Cleansing No -Primary Dressing Applied Aquacel Extra -Other Dressing dakins moistened gauze -Primary Dressing Covered/Secured with Dry Gauze & Dry Gauze & Roll Gauze, Roll Gauze Secured with Tape -Aquacel Extra 0 #3 R Med Foot -Ulcer Cleansing Rinsed/ Irrigated with Saline -Foul Odor after Cleansing No -Primary Dressing Applied Aquacel Extra -Other Dressing dakins moistened gauze -Primary Dressing Covered/Secured with Dry Gauze & Dry Gauze & Roll Gauze, Roll Gauze Secured with Tape -Aquacel Extra 0 #2 R Lat foot -Ulcer Cleansing Rinsed/ Irrigated with Saline -Negative Pressure Wound Therapy Discontinue -Primary Dressing Applied Aquacel Extra -Other Dressing dakins moistened guze -Primary Dressing Covered/Secured with Dry Gauze & Dry Gauze & Roll Gauze, Roll Gauze Secured with Tape -Other Covering abd -Aquacel Extra 0 Right -Compression Wrap Cole Wrap -Other cole Left -Compression Wrap Cole Wrap -Other cole Treatment Response Procedure Tolerated Well Pain Scale: 0-10 Numeric Is Patient Pain Free? Yes Yes WC - Visit Discharge Discharge Condition Stable Stable Ambulatory Status Walker, Wheelchair Wheelchair Transportation Private Auto Private Auto Medication Reconcilliation completed & No Yes provided to patient/care provider Clinical Summary of Care Provided Yes Yes Additional Wound Wound debrided: Left medial ankle/lower extremity Type of Debridement: Excisional debridement Anesthesia Used: 5% Lidocaine Gel Depth: Down to and including healthy tissue and in the subcutaneous layer Percentage of wound debrided: 100 Instrument Used: 5mm curette Tissue Removed: Slough and devitalized tissue Severity: Fat Layer Exposed Amount of bleeding with debridement: Mild Bleeding Controlled with: Pressure Patient tolerated procedure: Patient tolerated procedure well Additional Wound Wound debrided: Right medial ankle/lower extremity Type of Debridement: Excisional debridement Anesthesia Used: 5% Lidocaine Gel Depth: Down to and including healthy tissue and in the subcutaneous layer Percentage of wound debrided: 100 Instrument Used: 5mm curette Tissue Removed: Slough and devitalized tissue Severity: Fat Layer Exposed Amount of bleeding with debridement: Mild Bleeding Controlled with: Pressure Patient tolerated procedure: Patient tolerated procedure well Additional Wound Wound debrided: Right Dorsal Foot Type of Debridement: Excisional debridement Anesthesia Used: 5% Lidocaine Gel Depth: Down to and including healthy tissue and in the subcutaneous layer Percentage of wound debrided: 100 Instrument Used: 5mm curette Tissue Removed: Slough and devitalized tissue Severity: Fat Layer Exposed Amount of bleeding with debridement: Mild Bleeding Controlled with: Pressure Patient tolerated procedure: Patient tolerated procedure well Additional Wound Wound debrided: Right Lateral leg Type of Debridement: Excisional debridement Anesthesia Used: 5% Lidocaine Gel Depth: Down to and including healthy tissue and in the subcutaneous layer Percentage of wound debrided: 100 Instrument Used: 5mm curette Tissue Removed: Slough and devitalized tissue Severity: Fat Layer Exposed Amount of bleeding with debridement: Mild Bleeding Controlled with: Pressure Patient tolerated procedure: Patient tolerated procedure well Assessment/Plan Assessment/Plan (1) Ulcer of right lower extremity with fat layer exposed: CODE(S): L97.912 - Non-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 (2) Ulcer of left lower extremity with fat layer exposed: CODE(S): L97.922 - Non-pressure chronic ulcer of unspecified part of left lower leg with fat layer exposed (3) Ulcer of right heel and midfoot with fat layer exposed: CODE(S): L97.412 - Non-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 Still has significant Maceration and wetness to the periwound area. Revert to Aquacel extra, cover with foam dressing. Change twice daily or more depending on dr villaseñor. Cole wrap to both extremities for edema management, still has significant edema. Leg elevation, optimized protein and nutrition again very strongly recommended. Additional records from [facility] also requested. Patient is open to intervention if needed. Has had procedures done in the past and he states that he was told that his flow was normal. Their questions were answered and they were advised to let us know if they have any further questions or concerns. Follow up in 1 week or sooner if needed. This note was generated with [employer] dictation software. It may contain incorrect words, spelling, and punctuation that were not noted in checking the note before signing.
--- NOTE | 2023-03-19 11:47 | WC ---
Dr. Todd reviewed vascular tests from 08/2022 which indicated poor arterial disease and would like to send a referral to Dr. Arvizu but would like to have patient's sister discuss it with him first. Patient cancelled today's appt so I left a detailed voicemail message with sister to discuss with patient on the vascular referral and encouraged her to call me for further questions regarding this matter.
[2023-03-26 11:52] VITALS: BP 97/55; PULSE 61; RESP 18
--- NOTE | 2023-03-26 13:32 | PN.PCM_ITS ---
History of Present Illness Date of Service: 03/26/23 Chief Complaint: Nonhealing bilateral lower extremity ulcers History of Wound: Mr Wilson is an 82-year-old who was brought in here from his [facility] due to nonhealing bilateral lower extremity ulcers. Has had recurrent ulcerations for over 10 years with most recent episode being more severe late last year. He was seen at the emergency room and subsequently advised to follow-up at a wound center which he did at [facility] without any significant improvement. A month ago, he was hospitalized for sepsis secondary to bilateral lower extremity ulcers. Following his admission and hospital stay, he did not return to the prior wound center. He reports a lot of drainage from his ulcers. They have been inconsistent dressing changes at his facility. He feels well otherwise and denies chills, fever. Currently has a PICC line and he is on IV vancomycin and cephalosporin. Progress of Wound: No new concerns reported concerns at this time. Better Moisture control. Objective Data Objective Data Vital Signs: Vital Signs Temp Pulse Resp BP O2 Del Method 97.2 F L 61 18 97/55 L Room Air 03/12/23 11:52 03/26/23 11:52 03/26/23 11:52 03/26/23 11:52 03/26/23 11:52 Oxygen Delivery Method Room Air Charges/Coding Procedures Integumentary 111xxx-113xx: [id number] Samina subq tissue 20 sq cm/< Add On Codes: 16970 Samina subq tissue add-on (x3. Additional Sq Cm debrided, please refer to clinical note) Physical Exam Const alert and no apparent distress General Appearance: cooperative and comfortable HEENT normocephalic, head/scalp atraumatic and hearing grossly normal bilaterally Head and Scalp: normal to inspection, normocephalic and atraumatic Neck full ROM General: normal visual inspection Resp normal respiratory effort Effort and Inspection: able to speak in complete sentences Extremity General Extremity: deformity Skin Wounds: wounds noted Neuro CN's II-XII intact bilaterally, moves all extremities and no focal motor deficits Psych mental status grossly normal Appearance: grossly normal Attitude: calm Activity / Motor Behavior: appropriate eye contact Debridement Note Debridement Note Wound debrided: Right Lateral Ankle/Foot Type of Debridement: Excisional debridement Anesthesia Used: 5% Lidocaine Gel Depth: Down to and including healthy tissue and in the subcutaneous layer Percentage of wound debrided: 100 Instrument Used: 7mm curette Tissue Removed: Slough and devitalized tissue Severity: Fat Layer Exposed Amount of bleeding with debridement: Mild Bleeding Controlled with: Pressure Patient tolerated procedure: Patient tolerated procedure well Post-Debridement Measurements and Additional Note: Post-Debridement Measurements/Treatment - Nurse 1 - General Ulcer Assessment Start: 03/05/23 10:23 Freq: Status: Active Protocol: MARTA Activity Type Activity Date Activity User E-sign Co-sign Detail Recorded Client Recorded Date Recorded By Document 03/05/23 10:24 [id number] 03/05/23 10:37 Document 03/12/23 11:52 [facility] [id number] 03/12/23 12:06 BMF Document 03/26/23 11:52 KW Desktop 03/26/23 12:05 KW 03/05/23 03/12/23 03/26/23 10:24 11:52 11:52 - Today's Visit Information Type of service Follow-up Visit Follow-up Visit Follow-up Visit (Physician/ARCHITECT INTERNSHIP (Physician/ARCHITECT INTERNSHIP (Physician/ARCHITECT INTERNSH[employer] ) ) ) Arrival Mode Wheelchair Wheelchair Ambulatory, Walker Transfer Assistance Manual Other Transfer Assist (Other) 2 Accompanied by sister Patient Identification Verified (Name & Yes Yes Yes ) Patient Requires Transmission-Based No No Precautions Vital Signs Temperature (97.8 F-99.1 F) 96.6 F L 97.2 F L Temperature Source Temporal Temporal Pulse Rate (60-100) 88 61 Pulse Location Monitor Monitor Monitor Respiratory Rate (12-18) 16 16 18 Respiratory rate source Observation Observation Observation Oxygen Delivery Method Room Air Room Air Blood Pressure (90/60-120/80) 112/87 H 97/55 L Blood Pressure Mean (mm Hg) 95 69 Source Monitor Monitor Monitor Position Semi-Fowlers Sitting Sitting Blood Pressure Location Right Arm Right Forearm Left Arm History Since Last Visit- (Skip if this is Patient's initial visit) Have you changed medications since your No No No last visit? Any new allergies or adverse reactions No No No Had a fall/change in ADL's that may No No No increase risk of falls Signs or symptoms of abuse and/or No No No neglect since last visit Have you been in the hospital since your No No No last visit? Has dressing in place as prescribed Yes Yes Yes Has compression in place as prescribed Yes Yes Yes Has offloadiing in place as prescribed Yes Yes No Experienced any changes in pain level or No No No management Left Footwear No Footwear Surgical Shoe Regular Shoe with pressure relief insole Right Footwear No Footwear Wedge Shoe Regular Shoe Pain Scale: 0-10 Numeric Is Patient Pain Free? Yes Yes Yes WC - Nurse 1 - General Ulcer Measurement Start: 03/05/23 10:23 Freq: Status: Active Protocol: Activity Type Activity Date Activity User E-sign Co-sign Detail Recorded Client Recorded Date Recorded By Document 03/05/23 10:24 [id number] 03/05/23 10:37 Document 03/12/23 11:52 [facility] [id number] 03/12/23 12:06 BM Document 03/26/23 11:52 KW Desktop 03/26/23 12:05 KW 03/05/23 03/12/23 03/26/23 10:24 11:52 11:52 Wound Center Nurse 1 #10 right posterior LE -Combined with other wound No -Current Size (cm) - Length 0.1 -Current Size (cm) - Width 0.1 -Current Size (cm) - Depth 0.1 -Total Square Cm 0.01 -Photo Taken No -Epithelialization Large 67-100% -Tunneling No -Undermining/Tunneling No -Circular Undermining No -Exudate Type Serosanguineous -Wound Margin Indistinct, Non -Visible -Granulation Amt None Present (0 %) -Slough/Fibrin No -Structure Exposed N/A -Texture (Yuliet-wound Skin Appearance) Assessed, Localized Edema -Moisture (Yuliet-wound Skin Appearance) Assessed,Dry/ Scaly -Color (Yuliet-wound Skin Appearance) Assessed -Temperature (Yul[place]-wound Skin No Abnormality Appearance) (Pt Warm) -Ulcer Cleansing Wound Cleanser -Foul Odor after Cleansing No -Anesthetic Used 4% Lidocaine Solution #8 right lateral LE -Combined with other wound No No -Current Size (cm) - Length 0.1 0.7 0.1 -Current Size (cm) - Width 0.1 1.3 0.1 -Current Size (cm) - Depth 0.1 0.1 0.1 -Total Square Cm 0.01 0.91 0.01 -Photo Taken No -Epithelialization Small 1-33% -Tunneling No No -Undermining/Tunneling No No -Circular Undermining No No -Exudate Amt Small Medium -Exudate Type Serosanguineous Serosanguineous -Wound Margin Flat & Intact Distinct, Outline Attached -Granulation Amt None Present (0 Medium (34-66%) %) -Granulation Quality [place] -Slough/Fibrin No Yes -Necrosis Amt Large (67-100%) Medium (34-66%) -Necrotic Tissue Type Adherent Slough Adherent Slough -Structure Exposed N/A N/A -Texture (Yuliet-wound Skin Appearance) Assessed, Assessed Assessed Localized Edema -Moisture (Yuliet-wound Skin Appearance) Assessed,Dry/ Assessed,Dry/ Assessed Scaly Scaly -Color (Yuliet-wound Skin Appearance) Assessed Assessed Assessed -Temperature (Yuliet-wound Skin No Abnormality No Abnormality No Abnormality Appearance) (Pt Warm) (Pt Warm) (Pt Warm) -Tenderness on Palpation (Yuliet-wound No No Skin Appearance) -Ulcer Cleansing Wound Cleanser Wound Cleanser Soap and Water -Foul Odor after Cleansing No No No -Anesthetic Used 4% Lidocaine 4% Lidocaine 4% Lidocaine Solution Solution Solution #6 R DORSAL foot -Combined with other wound No -Current Size (cm) - Length 2 2 3 -Current Size (cm) - Width 7 6.2 5 -Current Size (cm) - Depth 0.3 0.3 0.2 -Total Square Cm 14 12.4 15 -Photo Taken No -Epithelialization Small 1-33% -Tunneling No No -Undermining/Tunneling No No -Circular Undermining No No -Exudate Amt Medium Medium Medium -Exudate Type Serosanguineous Serosanguineous Serosanguineous -Wound Margin Flat & Intact Distinct, Thickened Outline Attached -Granulation Amt Medium (34-66%) Medium (34-66%) Small (1-33%) -Granulation Quality Red [place] -Slough/Fibrin Yes Yes -Necrosis Amt Small (1-33%) Medium (34-66%) Large (67-100%) -Necrotic Tissue Type Adherent Slough Adherent Slough Adherent Slough -Structure Exposed N/A N/A -Texture (Yuliet-wound Skin Appearance) Assessed, Assessed Not Assessed Excoriation, Localized Edema -Moisture (Yuliet-wound Skin Appearance) Assessed Assessed Assessed -Color (Yuliet-wound Skin Appearance) Assessed, Assessed Assessed Hemosiderin Staining -Temperature (Yuliet-wound Skin No Abnormality No Abnormality No Abnormality Appearance) (Pt Warm) (Pt Warm) (Pt Warm) -Tenderness on Palpation (Yuliet-wound No No Skin Appearance) -Ulcer Cleansing Wound Cleanser Wound Cleanser Soap and Water -Foul Odor after Cleansing No No -Anesthetic Used 4% Lidocaine 4% Lidocaine 4% Lidocaine Solution Solution Solution #5 L Med foot -Combined with other wound No No -Current Size (cm) - Length 1.6 0.1 1 -Current Size (cm) - Width 1.0 0.1 1.7 -Current Size (cm) - Depth 0.2 0.1 0.3 -Total Square Cm 1.60 0.01 1.7 -Photo Taken No -Epithelialization Medium 34-66% -Tunneling No No -Undermining/Tunneling No No -Circular Undermining No No -Exudate Amt Medium Medium Small -Exudate Type Serosanguineous Serosanguineous Serosanguineous -Wound Margin Flat & Intact Distinct, Thickened Outline Attached -Granulation Amt Medium (34-66%) Medium (34-66%) -Granulation Quality Red [place] -Slough/Fibrin Yes Yes -Necrosis Amt Medium (34-66%) Medium (34-66%) -Necrotic Tissue Type Adherent Slough Adherent Slough Adherent Slough -Structure Exposed N/A N/A -Texture (Yuliet-wound Skin Appearance) Assessed, Assessed Assessed Excoriation, Localized Edema -Moisture (Yuliet-wound Skin Appearance) Assessed, Assessed Assessed Maceration, Weeping -Color (Yuliet-wound Skin Appearance) Assessed, Assessed Assessed Hemosiderin Staining -Temperature (Yuliet-wound Skin Cool/Cold No Abnormality No Abnormality Appearance) (Pt Warm) (Pt Warm) -Tenderness on Palpation (Yuliet-wound No No Skin Appearance) -Ulcer Cleansing Wound Cleanser Wound Cleanser Soap and Water -Foul Odor after Cleansing No No -Anesthetic Used 4% Lidocaine 4% Lidocaine 4% Lidocaine Solution Solution Solution #3 R Med Foot -Combined with other wound No No -Current Size (cm) - Length 2.4 10 10.5 -Current Size (cm) - Width 9 2 2 -Current Size (cm) - Depth 0.3 0.3 0.2 -Total Square Cm 21.6 20 21.0 -Photo Taken No -Epithelialization Small 1-33% -Tunneling No No -Undermining/Tunneling No No -Circular Undermining No No -Exudate Amt Large Medium Medium -Exudate Type Serosanguineous Serosanguineous Serosanguineous -Wound Margin Flat & Intact Distinct, Thickened Outline Attached -Granulation Amt Medium (34-66%) Large (67-100%) -Granulation Quality Red [place] Red -Slough/Fibrin Yes Yes -Necrosis Amt Medium (34-66%) Medium (34-66%) -Necrotic Tissue Type Adherent Slough Adherent Slough Adherent Slough -Structure Exposed N/A N/A -Texture (Yuliet-wound Skin Appearance) Assessed, Assessed Excoriation, Localized Edema -Moisture (Yuliet-wound Skin Appearance) Assessed Assessed -Color (Yuliet-wound Skin Appearance) Assessed, Assessed Hemosiderin Staining -Temperature (Yuliet-wound Skin No Abnormality No Abnormality No Abnormality Appearance) (Pt Warm) (Pt Warm) (Pt Warm) -Tenderness on Palpation (Yuliet-wound No No Skin Appearance) -Ulcer Cleansing Wound Cleanser Wound Cleanser Soap and Water -Foul Odor after Cleansing No No -Anesthetic Used 4% Lidocaine 4% Lidocaine 4% Lidocaine Solution Solution Solution #2 R Lat foot -Combined with other wound No No -Current Size (cm) - Length 3 1.8 6.2 -Current Size (cm) - Width 8 1 2 -Current Size (cm) - Depth 0.3 0.3 0.2 -Total Square Cm 24 1.8 12.4 -Photo Taken No -Epithelialization Small 1-33% -Tunneling No No -Undermining/Tunneling No No -Circular Undermining No No -Exudate Amt Medium Medium -Exudate Type Serosanguineous Serosanguineous -Wound Margin Flat & Intact Distinct, Thickened Outline Attached -Granulation Amt Medium (34-66%) Medium (34-66%) -Granulation Quality [place] -Slough/Fibrin Yes Yes -Necrosis Amt Medium (34-66%) Medium (34-66%) -Necrotic Tissue Type Adherent Slough Adherent Slough Adherent Slough -Structure Exposed N/A N/A -Texture (Yuliet-wound Skin Appearance) Assessed, Assessed Assessed Friable, Localized Edema -Moisture (Yuliet-wound Skin Appearance) Assessed, Assessed Assessed Maceration,Dry/ Scaly -Color (Yuliet-wound Skin Appearance) Assessed, Assessed Assessed Hemosiderin Staining -Temperature (Yuliet-wound Skin No Abnormality Appearance) (Pt Warm) -Tenderness on Palpation (Yuliet-wound No No Skin Appearance) -Ulcer Cleansing Wound Cleanser Wound Cleanser -Foul Odor after Cleansing No Yes, Due to Product Use -Anesthetic Used 4% Lidocaine 4% Lidocaine 4% Lidocaine Solution Solution Solution Lower Limb Edema Present Yes Right Calf (cm) 33.1 Right Ankle (cm) 23.1 Left Calf (cm) 38 Left Ankle (cm) 23 03/12/23 12:05 Wound Center by Yaritza Woodruff assisted with measuring wounds Initialized on 03/12/23 12:05 - END OF NOTE WC - Nurse 2 - General Ulcer CM Notes Start: 03/05/23 10:23 Freq: Status: Active Protocol: Activity Type Activity Date Activity User E-sign Co-sign Detail Recorded Client Recorded Date Recorded By Document 03/05/23 10:41 [id number] 03/05/23 11:05 Document 03/12/23 12:19 [id number] 03/12/23 12:42 Document 03/26/23 13:24 [id number] 03/26/23 13:30 03/05/23 03/12/23 03/26/23 10:41 12:19 13:24 Wound Center Nurse 2 #8 right lateral LE -Time 10:45 12:19 -Correct Patient Yes Yes No -Correct Side, Site, Position Yes Yes No -Correct Procedure Yes Yes No -Procedure Performed Yes Yes No -Type of Procedure Debridement Debridement -Clinical Debridement Subcutaneous Subcutaneous -Tissue Removed Subcutaneous Subcutaneous -Post Debridement (cm) - Length 3.1 0.9 0 -Post Debridement (cm) - Width 9 1.3 0 -Post Debridement (cm) - Depth 0.1 0.1 0 -Total Square (Post) (cm) 27.9 1.17 0 -Area of Debridement (cm) - Length 3.1 0.9 0 -Area of Debridement (cm) - Width 9 1.3 0 -Total Square (Area) (cm) 27.9 1.17 0 -Tunneling No No -Undermining/Tunneling No No -Circular Undermining No No -Wound/Ulcer Outcome Not Healed Not Healed Healed- Epithelialized -Ulcer Cleansing Rinsed/ Rinsed/ Irrigated with Irrigated with Saline Saline -Foul Odor after Cleansing No No -Bioengineered Tissue No No -Bleeding Controlled with Pressure Pressure -Treatment Response Procedure Procedure Tolerated Well Tolerated Well -Offloading No No -Debridement - Subq, 1st 20sq cm No No #6 R DORSAL foot -Time 10:45 12:20 13:25 -Correct Patient Yes Yes Yes -Correct Side, Site, Position Yes Yes Yes -Correct Procedure Yes Yes Yes -Procedure Performed Yes Yes Yes -Type of Procedure Debridement Debridement Debridement -Clinical Debridement Subcutaneous Subcutaneous Subcutaneous -Tissue Removed Subcutaneous Subcutaneous Subcutaneous -Post Debridement (cm) - Length 2.5 2.5 3.0 -Post Debridement (cm) - Width 7 7.0 6.8 -Post Debridement (cm) - Depth 0.2 0.2 0.1 -Total Square (Post) (cm) 17.5 17.50 20.40 -Area of Debridement (cm) - Length 2.5 2.5 3.0 -Area of Debridement (cm) - Width 7 7.0 6.8 -Total Square (Area) (cm) 17.5 17.50 20.40 -Tunneling No No No -Undermining/Tunneling No No No -Circular Undermining No No No -Wound/Ulcer Outcome Not Healed Not Healed Not Healed -Ulcer Cleansing Rinsed/ Rinsed/ Rinsed/ Irrigated with Irrigated with Irrigated with Saline Saline Saline -Foul Odor after Cleansing No No No -Bioengineered Tissue No No No -Bleeding Controlled with Pressure Pressure Pressure -Treatment Response Procedure Procedure Procedure Tolerated Well Tolerated Well Tolerated Well -Offloading No No No -Debridement - Subq, 1st 20sq cm No No No #5 L Med foot -Time 10:46 12:20 13:26 -Correct Patient Yes Yes Yes -Correct Side, Site, Position Yes Yes Yes -Correct Procedure Yes Yes Yes -Procedure Performed Yes Yes Yes -Type of Procedure Debridement Debridement Debridement -Clinical Debridement Subcutaneous Subcutaneous Subcutaneous -Tissue Removed Subcutaneous Subcutaneous Subcutaneous -Post Debridement (cm) - Length 1.6 2.5 2.0 -Post Debridement (cm) - Width 1.3 1.3 1.5 -Post Debridement (cm) - Depth 0.2 0.2 0.4 -Total Square (Post) (cm) 2.08 3.25 3.00 -Area of Debridement (cm) - Length 1.6 2.5 2.0 -Area of Debridement (cm) - Width 1.3 1.3 1.5 -Total Square (Area) (cm) 2.08 3.25 3.00 -Tunneling No No No -Undermining/Tunneling No No No -Circular Undermining No No No -Wound/Ulcer Outcome Not Healed Not Healed Not Healed -Ulcer Cleansing Rinsed/ Rinsed/ Rinsed/ Irrigated with Irrigated with Irrigated with Saline Saline Saline -Foul Odor after Cleansing No No No -Bioengineered Tissue No No No -Bleeding Controlled with Pressure Pressure Pressure -Treatment Response Procedure Procedure Procedure Tolerated Well Tolerated Well Tolerated Well -Offloading No No No -Debridement - Subq, 1st 20sq cm No Yes No -Debridement, SubQ, ea addt'l 20sq cm 3 or part thereof #3 R Med Foot -Time 10:46 12:23 13:26 -Correct Patient Yes Yes Yes -Correct Side, Site, Position Yes Yes Yes -Correct Procedure Yes Yes Yes -Procedure Performed Yes Yes Yes -Type of Procedure Debridement Debridement Debridement -Clinical Debridement Subcutaneous Subcutaneous Subcutaneous -Tissue Removed Subcutaneous Subcutaneous Subcutaneous -Post Debridement (cm) - Length 2.5 2.5 11.0 -Post Debridement (cm) - Width 9 9.0 2.0 -Post Debridement (cm) - Depth 0.2 0.3 0.3 -Total Square (Post) (cm) 22.5 22.50 22.00 -Area of Debridement (cm) - Length 2.5 2.5 11.0 -Area of Debridement (cm) - Width 9 9.0 2.0 -Total Square (Area) (cm) 22.5 22.50 22.00 -Tunneling No No No -Undermining/Tunneling No No No -Circular Undermining No No No -Wound/Ulcer Outcome Not Healed Not Healed Not Healed -Ulcer Cleansing Rinsed/ Rinsed/ Rinsed/ Irrigated with Irrigated with Irrigated with Saline Saline Saline -Foul Odor after Cleansing No No No -Bioengineered Tissue No No No -Bleeding Controlled with Pressure Pressure Pressure -Treatment Response Procedure Procedure Procedure Tolerated Well Tolerated Well Tolerated Well -Offloading No No No -Debridement - Subq, 1st 20sq cm No No No #2 R Lat foot -Time 10:47 12:26 13:28 -Correct Patient Yes Yes Yes -Correct Side, Site, Position Yes Yes Yes -Correct Procedure Yes Yes Yes -Procedure Performed Yes Yes Yes -Type of Procedure Debridement Debridement Debridement -Clinical Debridement Subcutaneous Subcutaneous -Tissue Removed Epidermis, Subcutaneous Subcutaneous Subcutaneous -Post Debridement (cm) - Length 0.7 2.8 8 -Post Debridement (cm) - Width 0.4 9.0 3.0 -Post Debridement (cm) - Depth 0.1 0.3 0.2 -Total Square (Post) (cm) 0.28 25.20 24.0 -Area of Debridement (cm) - Length 0.7 2.8 8.0 -Area of Debridement (cm) - Width 0.4 9.0 3.0 -Total Square (Area) (cm) 0.28 25.20 24.00 -Tunneling No No No -Undermining/Tunneling No No -Circular Undermining No No No -Wound/Ulcer Outcome Not Healed Not Healed Not Healed -Ulcer Cleansing Rinsed/ Rinsed/ Rinsed/ Irrigated with Irrigated with Irrigated with Saline Saline Saline -Foul Odor after Cleansing No No No -Bioengineered Tissue No No No -Bleeding Controlled with Pressure Pressure Pressure -Treatment Response Procedure Procedure Procedure Tolerated Well Tolerated Well Tolerated Well -Offloading No No No -Debridement - Subq, 1st 20sq cm Yes No Yes -Debridement, SubQ, ea addt'l 20sq cm 3 3 or part thereof -Debridement - Muscle / Fascia, 1st No 20sq cm -Debridement - Bone, 1st 20sq cm No Pain Scale: 0-10 Numeric Is Patient Pain Free? Yes Yes Yes WC - Nurse 3 - General Ulcer D/C NN Start: 03/05/23 10:23 Freq: Status: Active Protocol: Activity Type Activity Date Activity User E-sign Co-sign Detail Recorded Client Recorded Date Recorded By Document 03/05/23 12:19 RB [id number] 03/05/23 12:22 RB Document 03/12/23 13:01 [id number] 03/12/23 13:04 Document 03/26/23 12:53 RB Desktop 03/26/23 12:55 RB 03/05/23 03/12/23 03/26/23 12:19 13:01 12:53 Wound Care Center Nurse 3 #8 right lateral LE -Ulcer Cleansing Rinsed/ Rinsed/ Irrigated with Irrigated with Saline Saline -Foul Odor after Cleansing No -Primary Dressing Applied Hysept ($) Aquacel Extra Aquacel Extra -Other Dressing dakins abd moistened gauze -Primary Dressing Covered/Secured with Dry Gauze & Dry Gauze & Dry Gauze,Dry Roll Gauze, Roll Gauze Gauze & Roll Secured with Gauze,Secured Tape with Tape -Aquacel Extra 2 1 #6 R DORSAL foot -Ulcer Cleansing Rinsed/ Wound Cleanser Irrigated with Saline -Foul Odor after Cleansing No -Primary Dressing Applied Aquacel Extra Aquacel Extra -Other Dressing hydrogel abd -Primary Dressing Covered/Secured with Dry Gauze & Dry Gauze & Dry Gauze,Dry Roll Gauze, Roll Gauze, Gauze & Roll Secured with Secured with Gauze,Secured Tape Tape with Tape -Aquacel Extra 0 1 #5 L Med foot -Ulcer Cleansing Rinsed/ Wound Cleanser Irrigated with Saline -Foul Odor after Cleansing No -Primary Dressing Applied Aquacel Extra -Other Dressing dakins aquacel extra moistened gauze -Primary Dressing Covered/Secured with Dry Gauze & Dry Gauze & Dry Gauze,Dry Roll Gauze, Roll Gauze Gauze & Roll Secured with Gauze,Secured Tape with Tape -Aquacel Extra 0 #3 R Med Foot -Ulcer Cleansing Rinsed/ Irrigated with Saline -Foul Odor after Cleansing No -Primary Dressing Applied Aquacel Extra -Other Dressing dakins aquacel extra moistened gauze -Primary Dressing Covered/Secured with Dry Gauze & Dry Gauze & Dry Gauze,Dry Roll Gauze, Roll Gauze Gauze & Roll Secured with Gauze,Secured Tape with Tape -Aquacel Extra 0 #2 R Lat foot -Ulcer Cleansing Rinsed/ Irrigated with Saline -Negative Pressure Wound Therapy Discontinue -Primary Dressing Applied Aquacel Extra -Other Dressing dakins aquacel extra moistened guze -Primary Dressing Covered/Secured with Dry Gauze & Dry Gauze & Dry Gauze,Dry Roll Gauze, Roll Gauze Gauze & Roll Secured with Gauze,Secured Tape with Tape -Other Covering abd -Aquacel Extra 0 Right -Compression Wrap Cole Wrap -Other cole cole Left -Compression Wrap Cole Wrap -Other cole cole Treatment Response Procedure Procedure Tolerated Well Tolerated Well Pain Scale: 0-10 Numeric Is Patient Pain Free? Yes Yes Yes Teaching: Wound Center Dressing Your Wound -Person Taught Patient -Teaching Method Discussion, Demonstration -Response to teaching Verbalize understanding WC - Visit Discharge Discharge Condition Stable Stable Stable Ambulatory Status Walker, Wheelchair Walker, Wheelchair Wheelchair Transportation Private Auto Private Auto Private Auto Medication Reconcilliation completed & No Yes No provided to patient/care provider Clinical Summary of Care Provided Yes Yes Yes Additional Wound Wound debrided: Left medial ankle/lower extremity Type of Debridement: Excisional debridement Anesthesia Used: 5% Lidocaine Gel Depth: Down to and including healthy tissue and in the subcutaneous layer Percentage of wound debrided: 100 Instrument Used: 5mm curette Tissue Removed: Slough and devitalized tissue Severity: Fat Layer Exposed Amount of bleeding with debridement: Mild Bleeding Controlled with: Pressure Patient tolerated procedure: Patient tolerated procedure well Additional Wound Wound debrided: Right medial ankle/lower extremity Type of Debridement: Excisional debridement Anesthesia Used: 5% Lidocaine Gel Depth: Down to and including healthy tissue and in the subcutaneous layer Percentage of wound debrided: 100 Instrument Used: 5mm curette Tissue Removed: Slough and devitalized tissue Severity: Fat Layer Exposed Amount of bleeding with debridement: Mild Bleeding Controlled with: Pressure Patient tolerated procedure: Patient tolerated procedure well Additional Wound Wound debrided: Right Dorsal Foot Type of Debridement: Excisional debridement Anesthesia Used: 5% Lidocaine Gel Depth: Down to and including healthy tissue and in the subcutaneous layer Percentage of wound debrided: 100 Instrument Used: 5mm curette Tissue Removed: Slough and devitalized tissue Severity: Fat Layer Exposed Amount of bleeding with debridement: Mild Bleeding Controlled with: Pressure Patient tolerated procedure: Patient tolerated procedure well Additional Wound Tissue Removed: Slough and devitalized tissue Assessment/Plan Assessment/Plan (1) Ulcer of right lower extremity with fat layer exposed: CODE(S): L97.912 - Non-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 (2) Ulcer of left lower extremity with fat layer exposed: CODE(S): L97.922 - Non-pressure chronic ulcer of unspecified part of left lower leg with fat layer exposed (3) Ulcer of right heel and midfoot with fat layer exposed: CODE(S): L97.412 - Non-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 Moisture control much better. Continue Aquacel extra, cover with foam dressing. Change twice daily or more depending on drainage. Cole wrap to both extremities for edema management. Leg elevation, optimized protein and nutrition again very strongly recommended. Patient is open to intervention if needed. Has had procedures done in the pas. Referred to Vascular surgery. Their questions were answered and they were advised to let us know if they have any further questions or concerns. Follow up in 2 weeks or sooner if needed. This note was generated with [employer] dictation software. It may contain incorrect words, spelling, and punctuation that were not noted in checking the note before signing.
--- NOTE | 2023-03-26 13:55 | WC ---
Called [facility] and spoke to Adarsh to ordered medium granufoam dressing kit rather than the bridge dressing per request. Estimated delivery 03/26/23. Also let [facility] know that patient never received full amount of dressings and is already out of supplies. Adarsh from [facility] states will put a ticket in regarding this matter and called Rekha the updates on orders. [facility] reference # [id number].
== END 2023-03-28 23:59 | disposition home or self-care (01) ==
LOC: WC 11:30
PROVIDERS: PCP Family Medicine; Referring Provider Family Medicine; Visit Provider Internal Medicine
DX: L97.922 Non-pressure chronic ulcer of unspecified part of left lower leg with fat layer exposed (principal); L97.412 Non-pressure chronic ulcer of right heel and midfoot with fat layer exposed; L97.912 Non-pressure chronic ulcer of unspecified part of right lower leg with fat layer exposed; I73.9 Peripheral vascular disease, unspecified; G62.9 Polyneuropathy, unspecified; R53.81 Other malaise
CPT/HCPCS: 11042; 11045

== ENCOUNTER 2023-04-23 11:30 | Outpatient (RCR) | payer MEDICARE, BC, SELFPAY ==
[2023-03-29 00:14] VITALS: BP 97/55; PULSE 61; RESP 18; TEMP 36.2
[2023-04-09 11:44] VITALS: BP 114/68; PULSE 66; RESP 16; TEMP 36.2
--- NOTE | 2023-04-09 13:01 | PCM.WC.PN ---
History of Present Illness Date of Service: 04/09/23 Chief Complaint: Nonhealing bilateral lower extremity ulcers History of Wound: Mr Wilson is an 82-year-old who was [facility] in [facility] his [facility] due to nonhealing bilateral lower extremity ulcers. Has had recurrent ulcerations for over 10 years with most recent episode being more severe late last year. He was seen at the emergency room and subsequently advised to follow-up at a wound center which he did at [facility] without any significant improvement. A month ago, he was hospitalized for sepsis secondary to bilateral lower extremity ulcers. Following his admission and hospital stay, he did not return to the prior wound center. He reports a lot of drainage from his ulcers. They have been inconsistent dressing changes at his facility. He feels well otherwise and denies chills, fever. Currently has a PICC line and he is on IV vancomycin and cephalosporin. Progress of Wound: No new concerns at this time. Has an appointment with Vascular next week. Objective Data Objective Data Vital Signs: Vital Signs Temp Pulse Resp BP O2 Del Method 97.2 F L 66 16 114/68 Room Air 04/09/23 11:44 04/09/23 11:44 04/09/23 11:44 04/09/23 11:44 04/09/23 11:44 Oxygen Delivery Method Room Air Charges/Coding Procedures Integumentary 111xxx-113xx: [id number] Saimna subq tissue 20 sq cm/< Add On Codes: 67453 Samina subq tissue add-on (x2. Additional Sq Cm debrided, please refer to clinical note) Physical Exam Const alert and no apparent distress General Appearance: cooperative and comfortable HEENT normocephalic, head/scalp atraumatic and hearing grossly normal bilaterally Head and Scalp: normal to inspection, normocephalic and atraumatic Neck full ROM General: normal visual inspection Resp normal respiratory effort Effort and Inspection: able to speak in complete sentences Extremity General Extremity: deformity Skin Wounds: wounds noted Neuro CN's II-XII intact bilaterally, moves all extremities and no focal motor deficits Psych mental status grossly normal Appearance: grossly normal Attitude: calm Activity / Motor Behavior: appropriate eye contact Debridement Note Debridement Note Wound debrided: Right Lateral Ankle/Foot Type of Debridement: Excisional debridement Anesthesia Used: 4% Lidocaine Solution Depth: Down to and including healthy tissue and in the subcutaneous layer Percentage of wound debrided: 100 Instrument Used: 7mm curette Tissue Removed: Slough and devitalized tissue Severity: Fat Layer Exposed Amount of bleeding with debridement: Mild Bleeding Controlled with: Pressure Patient tolerated procedure: Patient tolerated procedure well Post-Debridement Measurements and Additional Note: Post-Debridement Measurements/Treatment - Nurse 1 - General Ulcer Assessment Start: 04/09/23 11:44 Freq: Status: Active Protocol: MARTA Activity Type Activity Date Activity User E-sign Co-sign Detail Recorded Client Recorded Date Recorded By Document 04/09/23 11:44 [facility] [employer] 04/09/23 11:48 [facility] 04/09/23 11:44 WC - Today's Visit Information Type of service Follow-up Visit (Physician/CIRCUS TRAINER ) Arrival Mode Wheelchair Transfer Assistance Other Transfer Assist (Other) 2 Patient Identification Verified (Name & Yes ) Patient Requires Transmission-Based No Precautions Vital Signs Temperature (97.8 F-99.1 F) 97.2 F L Temperature Source Temporal Pulse Rate (60-100) 66 Pulse Location Monitor Respiratory Rate (12-18) 16 Respiratory rate source Observation Oxygen Delivery Method Room Air Blood Pressure (90/60-120/80) 114/68 Blood Pressure Mean (mm Hg) 83 Source Monitor Position Sitting Blood Pressure Location Left Forearm History Since Last Visit- (Skip if this is Patient's initial visit) Left Footwear Surgical Shoe with pressure relief insole Right Footwear Surgical Shoe with pressure relief insole Pain Scale: 0-10 Numeric Is Patient Pain Free? Yes [facility] Nurse 1 - General Ulcer Measurement Start: 04/09/23 11:44 Freq: Status: Active Protocol: Activity Type Activity Date Activity User E-sign Co-sign Detail Recorded Client Recorded Date Recorded By Document 04/09/23 11:44 [facility] [employer] 04/09/23 11:48 [facility] 04/09/23 11:44 Wound Center Nurse 1 #6 R DORSAL foot -Combined with other wound No -Epithelialization Small 1-33% -Tunneling No -Undermining/Tunneling No -Circular Undermining No -Exudate Amt Large -Exudate Type Serosanguineous -Wound Margin Distinct, Outline Attached -Granulation Amt Small (1-33%) -Granulation Quality [place] -Slough/Fibrin Yes -Necrosis Amt Large (67-100%) -Necrotic Tissue Type Adherent Slough -Texture (Yuliet-wound Skin Appearance) Assessed, Scarring -Moisture ([place]ul[place]-wound Skin Appearance) Assessed,Dry/ Scaly -Color ([place]ul[place]-wound Skin Appearance) Assessed, Erythema -Temperature ([place]ul[place]-wound Skin No Abnormality Appearance) (Pt Warm) -Tenderness on Palpation (Yul[place]-wound No Skin Appearance) -Ulcer Cleansing Soap and Water -Foul Odor after Cleansing No -Anesthetic Used 4% Lidocaine Solution #5 L Med foot -Combined with other wound No -Epithelialization None Present -Tunneling No -Undermining/Tunneling No -Circular Undermining No -Exudate Amt Medium -Exudate Type Serosanguineous -Wound Margin Distinct, Outline Attached -Granulation Amt Small (1-33%) -Granulation Quality [place] -Slough/Fibrin Yes -Necrosis Amt Large (67-100%) -Necrotic Tissue Type Adherent Slough -Texture (Yuliet-wound Skin Appearance) Assessed, Scarring -Moisture (Yul[place]-wound Skin Appearance) Assessed, Maceration,Dry/ Scaly -Color ([place]ul[place]-wound Skin Appearance) Assessed -Temperature ([place]ul[place]-wound Skin No Abnormality Appearance) (Pt Warm) -Tenderness on Palpation (Yuliet-wound No Skin Appearance) -Ulcer Cleansing Soap and Water -Foul Odor after Cleansing No -Anesthetic Used 4% Lidocaine Solution #3 R Med Foot -Combined with other wound No -Epithelialization None Present -Tunneling No -Undermining/Tunneling No -Circular Undermining No -Exudate Amt Large -Exudate Type Serosanguineous -Wound Margin Thickened -Granulation Amt Small (1-33%) -Granulation Quality [place] -Slough/Fibrin Yes -Necrosis Amt Large (67-100%) -Necrotic Tissue Type Adherent Slough -Texture (Yuliet-wound Skin Appearance) Assessed, Scarring -Moisture ([place]ul[place]-wound Skin Appearance) Assessed -Color ([place]ul[place]-wound Skin Appearance) Assessed, Erythema -Temperature ([place]ul[place]-wound Skin No Abnormality Appearance) (Pt Warm) -Tenderness on Palpation (Yuliet-wound No Skin Appearance) -Ulcer Cleansing Soap and Water -Foul Odor after Cleansing No -Anesthetic Used 4% Lidocaine Solution #2 R Lat foot -Combined with other wound No -Epithelialization Small 1-33% -Tunneling No -Undermining/Tunneling No -Circular Undermining No -Exudate Amt Large -Exudate Type Serosanguineous -Wound Margin Distinct, Outline Attached -Granulation Amt Medium (34-66%) -Granulation Quality Red -Slough/Fibrin Yes -Necrosis Amt Medium (34-66%) -Necrotic Tissue Type Adherent Slough -Texture (Yuliet-wound Skin Appearance) Assessed, Scarring -Moisture (Yuliet-wound Skin Appearance) Assessed -Color (Yuliet-wound Skin Appearance) Assessed -Temperature ([place]ul[place]-wound Skin No Abnormality Appearance) (Pt Warm) -Tenderness on Palpation ([place]ul[place]-wound No Skin Appearance) -Ulcer Cleansing Soap and Water -Foul Odor after Cleansing No -Anesthetic Used 4% Lidocaine Solution WC - Nurse 2 - General Ulcer CM Notes Start: 04/09/23 11:44 Freq: Status: Active Protocol: Activity Type Activity Date Activity User E-sign Co-sign Detail Recorded Client Recorded Date Recorded By Document 04/09/23 11:56 GM Desktop 04/09/23 12:14 GM 04/09/23 11:56 Wound Center Nurse 2 #6 R DORSAL foot -Time 11:57 -Correct Patient Yes -Correct Side, Site, Position Yes -Correct Procedure Yes -Procedure Performed Yes -Type of Procedure Debridement -Clinical Debridement Subcutaneous -Tissue Removed Subcutaneous -Post Debridement (cm) - Length 2 -Post Debridement (cm) - Width 6.5 -Post Debridement (cm) - Depth 0.3 -Total Square (Post) (cm) 13.0 -Area of Debridement (cm) - Length 2 -Area of Debridement (cm) - Width 6.5 -Total Square (Area) (cm) 13.0 -Tunneling No -Undermining/Tunneling No -Circular Undermining No -Wound/Ulcer Outcome Not Healed -Ulcer Cleansing Rinsed/ Irrigated with Saline -Foul Odor after Cleansing No -Bioengineered Tissue No -Bleeding Controlled with Pressure -Treatment Response Procedure Tolerated Well -Debridement - Subq, 1st 20sq cm No #5 L Med foot -Time 11:58 -Correct Patient Yes -Correct Side, Site, Position Yes -Correct Procedure Yes -Procedure Performed Yes -Type of Procedure Debridement -Clinical Debridement Subcutaneous -Tissue Removed Subcutaneous -Post Debridement (cm) - Length 2.2 -Post Debridement (cm) - Width 1.7 -Post Debridement (cm) - Depth 0.2 -Total Square (Post) (cm) 3.74 -Area of Debridement (cm) - Length 2.2 -Area of Debridement (cm) - Width 1.7 -Total Square (Area) (cm) 3.74 -Tunneling No -Undermining/Tunneling No -Wound/Ulcer Outcome Not Healed -Ulcer Cleansing Rinsed/ Irrigated with Saline -Foul Odor after Cleansing No -Bioengineered Tissue No -Bleeding Controlled with Pressure -Treatment Response Procedure Tolerated Well -Debridement - Subq, 1st 20sq cm Yes -Debridement, SubQ, ea addt'l 20sq cm 2 or part thereof #3 R Med Foot -Time 11:58 -Correct Patient Yes -Correct Side, Site, Position Yes -Correct Procedure Yes -Procedure Performed Yes -Type of Procedure Debridement -Clinical Debridement Subcutaneous -Tissue Removed Subcutaneous -Post Debridement (cm) - Length 8 -Post Debridement (cm) - Width 2.5 -Post Debridement (cm) - Depth 0.3 -Total Square (Post) (cm) 20.0 -Area of Debridement (cm) - Length 2.5 -Area of Debridement (cm) - Width 0.4 -Total Square (Area) (cm) 1.00 -Tunneling No -Undermining/Tunneling No -Circular Undermining No -Wound/Ulcer Outcome Not Healed -Ulcer Cleansing Rinsed/ Irrigated with Saline -Foul Odor after Cleansing No -Bioengineered Tissue No -Bleeding Controlled with Pressure -Treatment Response Procedure Tolerated Well -Debridement - Subq, 1st 20sq cm No #2 R Lat foot -Time 12:03 -Correct Patient Yes -Correct Side, Site, Position Yes -Correct Procedure Yes -Procedure Performed Yes -Type of Procedure Debridement -Clinical Debridement Subcutaneous -Tissue Removed Subcutaneous -Post Debridement (cm) - Length 8 -Post Debridement (cm) - Width 2.5 -Post Debridement (cm) - Depth 0.4 -Total Square (Post) (cm) 20.0 -Area of Debridement (cm) - Length 8 -Area of Debridement (cm) - Width 2.5 -Total Square (Area) (cm) 20.0 -Tunneling No -Undermining/Tunneling No -Circular Undermining No -Wound/Ulcer Outcome Not Healed -Ulcer Cleansing Rinsed/ Irrigated with Saline -Foul Odor after Cleansing No -Bioengineered Tissue No -Bleeding Controlled with Pressure -Treatment Response Procedure Tolerated Well -Debridement - Subq, 1st 20sq cm No Pain Scale: 0-10 Numeric Is Patient Pain Free? Yes WC - Nurse 3 - General Ulcer D/C NN Start: 04/09/23 11:44 Freq: Status: Active Protocol: Activity Type Activity Date Activity User E-sign Co-sign Detail Recorded Client Recorded Date Recorded By Document 04/09/23 12:19 [facility] Desktop 04/09/23 12:21 [facility] Edit Result 04/09/23 12:19 BMF (1) Desktop 04/09/23 12:22 BMF (1) #6 R DORSAL foot - Aquacel Extra 1 => 2 04/09/23 12:19 Wound Care Center Nurse 3 #6 R DORSAL foot -Ulcer Cleansing Rinsed/ Irrigated with Saline -Foul Odor after Cleansing No -Primary Dressing Applied Aquacel Extra -Other Dressing ABD -Primary Dressing Covered/Secured with Dry Gauze & Roll Gauze, Secured with Tape -Other Covering PER RN -Aquacel Extra 2 #5 L Med foot -Ulcer Cleansing Rinsed/ Irrigated with Saline -Foul Odor after Cleansing No -Primary Dressing Applied Aquacel Extra -Other Dressing ABD -Primary Dressing Covered/Secured with Dry Gauze & Roll Gauze, Secured with Tape -Other Covering PER RN -Aquacel Extra 0 #3 R Med Foot -Ulcer Cleansing Rinsed/ Irrigated with Saline -Foul Odor after Cleansing No -Primary Dressing Applied Aquacel Extra -Other Dressing ABD, PER RN -Primary Dressing Covered/Secured with Dry Gauze & Roll Gauze, Secured with Tape -Aquacel Extra 0 #2 R Lat foot -Ulcer Cleansing Rinsed/ Irrigated with Saline -Foul Odor after Cleansing No -Primary Dressing Applied Aquacel Extra -Other Dressing ABD, PER RN -Primary Dressing Covered/Secured with Dry Gauze & Roll Gauze, Secured with Tape -Aquacel Extra 0 BLE -Compression Wrap Cole Wrap Treatment Response Procedure Tolerated Well Pain Scale: 0-10 Numeric Is Patient Pain Free? Yes WC - Visit Discharge Discharge Condition Stable Ambulatory Status Wheelchair Transportation TRANSPORT Facility Type Shelter Care Facility Additional Wound Wound debrided: Left medial ankle/lower extremity Type of Debridement: Excisional debridement Anesthesia Used: 4% Lidocaine Solution Depth: Down to and including healthy tissue and in the subcutaneous layer Percentage of wound debrided: 100 Instrument Used: 5mm curette Tissue Removed: Slough and devitalized tissue Severity: Fat Layer Exposed Amount of bleeding with debridement: Mild Bleeding Controlled with: Pressure Patient tolerated procedure: Patient tolerated procedure well Additional Wound Wound debrided: Right medial ankle/lower extremity Type of Debridement: Excisional debridement Anesthesia Used: 4% Lidocaine Solution Depth: Down to and including healthy tissue and in the subcutaneous layer Percentage of wound debrided: 100 Instrument Used: 5mm curette Tissue Removed: Slough and devitalized tissue Severity: Fat Layer Exposed Amount of bleeding with debridement: Mild Bleeding Controlled with: Pressure Patient tolerated procedure: Patient tolerated procedure well Additional Wound Wound debrided: Right Dorsal Foot Type of Debridement: Excisional debridement Anesthesia Used: 4% Lidocaine Solution Depth: Down to and including healthy tissue and in the subcutaneous layer Percentage of wound debrided: 100 Instrument Used: 5mm curette Tissue Removed: Slough and devitalized tissue Severity: Fat Layer Exposed Amount of bleeding with debridement: Mild Bleeding Controlled with: Pressure Patient tolerated procedure: Patient tolerated procedure well Additional Wound Tissue Removed: Slough and devitalized tissue Assessment/Plan Assessment/Plan (1) Ulcer of right lower extremity with fat layer exposed: CODE(S): L97.912 - Non-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 (2) Ulcer of left lower extremity with fat layer exposed: CODE(S): L97.922 - Non-pressure chronic ulcer of unspecified part of left lower leg with fat layer exposed (3) Ulcer of right heel and midfoot with fat layer exposed: CODE(S): L97.412 - Non-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 Overall stable, no new concerns. Continue Aquacel extra, cover with foam dressing. Change twice daily or more depending on drainage. Cole wrap to both extremities for edema management. Leg elevation, optimized protein and nutrition again very strongly recommended. Their questions were answered and they were advised to let us know if they have any further questions or concerns. Follow up in 1 week or sooner if needed. This note was generated with [employer] software. It may contain incorrect words, spelling, and punctuation that were not noted in checking the note before signing.
[2023-04-16 12:03] VITALS: BP 99/54; PULSE 63; RESP 18; TEMP 37
--- NOTE | 2023-04-16 12:53 | PN.PCM_ITS ---
History of Present Illness Date of Service: 04/16/23 Chief Complaint: Nonhealing bilateral lower extremity ulcers History of Wound: Mr Wilson is an 82-year-old who was brought in here from his correction due to nonhealing bilateral lower extremity ulcers. Has had recurrent ulcerations for over 10 years with most recent episode being more severe late last year. He was seen at the emergency room and subsequently advised to follow-up at a wound center which he did at [facility] without any significant improvement. A month ago, he was hospitalized for sepsis secondary to bilateral lower extremity ulcers. Following his admission and hospital stay, he did not return to the prior wound center. He reports a lot of drainage from his ulcers. They have been inconsistent dressing changes at his facility. He feels well otherwise and denies chills, fever. Currently has a PICC line and he is on IV vancomycin and cephalosporin. Progress of Wound: Established with Vascular recently and he states that plan is to review his prior records before further recommendation. No new concerns at this time. Objective Data Objective Data Vital Signs: Vital Signs Temp Pulse Resp BP O2 Del Method 98.6 F 63 18 99/54 L Room Air 04/16/23 12:03 04/16/23 12:03 04/16/23 12:03 04/16/23 12:03 04/09/23 11:44 Oxygen Delivery Method Room Air Charges/Coding Procedures Integumentary 111xxx-113xx: 16209 Samina subq tissue 20 sq cm/< Add On Codes: 47812 Samina subq tissue add-on (X 3. Additional sq Cm debrided, please refer to clinical note. ) Physical Exam Const alert and no apparent distress General Appearance: cooperative and comfortable HEENT normocephalic, head/scalp atraumatic and hearing grossly normal bilaterally Head and Scalp: normal to inspection, normocephalic and atraumatic Neck full ROM General: normal visual inspection Resp normal respiratory effort Effort and Inspection: able to speak in complete sentences Extremity General Extremity: deformity Skin Wounds: wounds noted Neuro CN's II-XII intact bilaterally, moves all extremities and no focal motor deficits Psych mental status grossly normal Appearance: grossly normal Attitude: calm Activity / Motor Behavior: appropriate eye contact Debridement Note Debridement Note Wound debrided: Right Lateral Ankle/Foot Type of Debridement: Excisional debridement Anesthesia Used: 4% Lidocaine Solution Depth: Down to and including healthy tissue and in the subcutaneous layer Percentage of wound debrided: 100 Instrument Used: 7mm curette Tissue Removed: Slough and devitalized tissue Severity: Fat Layer Exposed Amount of bleeding with debridement: Mild Bleeding Controlled with: Pressure Patient tolerated procedure: Patient tolerated procedure well Post-Debridement Measurements and Additional Note: Post-Debridement Measurements/Treatment SASHA - Nurse 1 - General Ulcer Assessment Start: 04/09/23 11:44 Freq: Status: Active Protocol: MARTA Activity Type Activity Date Activity User E-sign Co-sign Detail Recorded Client Recorded Date Recorded By Document 04/09/23 11:44 [facility] Desktop 04/09/23 11:48 BM Document 04/16/23 12:03 RB [id number] 04/16/23 12:09 RB 04/09/23 04/16/23 11:44 12:03 SASHA - Today's Visit Information Type of service Follow-up Visit Follow-up Visit (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 (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 ) ) Arrival Mode Wheelchair Wheelchair Transfer Assistance Other Manual Transfer Assist (Other) 2 Patient Identification Verified (Name & Yes Yes ) Patient Requires Transmission-Based No No Precautions Vital Signs Temperature (97.8 F-99.1 F) 97.2 F L 98.6 F Temperature Source Temporal Temporal Pulse Rate (60-100) 66 63 Pulse Location Monitor Monitor Respiratory Rate (12-18) 16 18 Respiratory rate source Observation Observation Oxygen Delivery Method Room Air Blood Pressure (90/60-120/80) 114/68 99/54 L Blood Pressure Mean (mm Hg) 83 69 Source Monitor Monitor Position Sitting Semi-Fowlers Blood Pressure Location Left Forearm Left Arm History Since Last Visit- (Skip if this is Patient's initial visit) Have you changed medications since your No last visit? Any new allergies or adverse reactions No Had a fall/change in ADL's that may No increase risk of falls Signs or symptoms of abuse and/or No neglect since last visit Have you been in the hospital since your No last visit? Has dressing in place as prescribed Yes Has compression in place as prescribed Yes Has offloadiing in place as prescribed No Experienced any changes in pain level or No management Left Footwear Surgical Shoe with pressure relief insole Right Footwear Surgical Shoe with pressure relief insole Pain Scale: 0-10 Numeric Is Patient Pain Free? Yes Yes SASHA - Nurse 1 - General Ulcer Measurement Start: 04/09/23 11:44 Freq: Status: Active Protocol: Activity Type Activity Date Activity User E-sign Co-sign Detail Recorded Client Recorded Date Recorded By Document 04/09/23 11:44 [facility] Desktop 04/09/23 11:48 BM Document 04/16/23 12:03 RB [id number] 04/16/23 12:09 RB 04/09/23 04/16/23 11:44 12:03 Wound Center Nurse 1 #6 R DORSAL foot -Combined with other wound No No -Current Size (cm) - Length 0.1 -Current Size (cm) - Width 0.1 -Current Size (cm) - Depth 0.1 -Total Square Cm 0.01 -Epithelialization Small 1-33% -Tunneling No No -Undermining/Tunneling No No -Circular Undermining No No -Exudate Amt Large Large -Exudate Type Serosanguineous Serosanguineous -Wound Margin Distinct, Distinct, Outline Outline Attached Attached -Granulation Amt Small (1-33%) Medium (34-66%) -Granulation Quality Hickman Hickman -Slough/Fibrin Yes Yes -Necrosis Amt Large (67-100%) Medium (34-66%) -Necrotic Tissue Type Adherent Slough Adherent Slough -Structure Exposed N/A -Texture (Yuliet-wound Skin Appearance) Assessed, Assessed Scarring -Moisture (Yuliet-wound Skin Appearance) Assessed,Dry/ Assessed,Dry/ Scaly Scaly -Color (Yuliet-wound Skin Appearance) Assessed, Assessed Erythema -Temperature (Yuliet-wound Skin No Abnormality No Abnormality Appearance) (Pt Warm) (Pt Warm) -Tenderness on Palpation (Yuliet-wound No No Skin Appearance) -Ulcer Cleansing Soap and Water Wound Cleanser -Foul Odor after Cleansing No No -Anesthetic Used 4% Lidocaine 4% Lidocaine Solution Solution #5 L Med foot -Combined with other wound No No -Current Size (cm) - Length 0.1 -Current Size (cm) - Width 0.1 -Current Size (cm) - Depth 0.1 -Total Square Cm 0.01 -Epithelialization None Present -Tunneling No No -Undermining/Tunneling No No -Circular Undermining No No -Exudate Amt Medium Large -Exudate Type Serosanguineous Serosanguineous -Wound Margin Distinct, Distinct, Outline Outline Attached Attached -Granulation Amt Small (1-33%) Medium (34-66%) -Granulation Quality Hickman Hickman -Slough/Fibrin Yes Yes -Necrosis Amt Large (67-100%) Medium (34-66%) -Necrotic Tissue Type Adherent Slough Adherent Slough -Structure Exposed N/A -Texture (Yuliet-wound Skin Appearance) Assessed, Assessed Scarring -Moisture (Yuliet-wound Skin Appearance) Assessed, Assessed,Dry/ Maceration,Dry/ Scaly Scaly -Color (Yuliet-wound Skin Appearance) Assessed Assessed -Temperature (Yuliet-wound Skin No Abnormality No Abnormality Appearance) (Pt Warm) (Pt Warm) -Tenderness on Palpation (Yuliet-wound No No Skin Appearance) -Ulcer Cleansing Soap and Water Wound Cleanser -Foul Odor after Cleansing No No -Anesthetic Used 4% Lidocaine 4% Lidocaine Solution Solution #3 R Med Foot -Combined with other wound No No -Current Size (cm) - Length 0.1 -Current Size (cm) - Width 0.1 -Current Size (cm) - Depth 0.1 -Total Square Cm 0.01 -Epithelialization None Present -Tunneling No No -Undermining/Tunneling No No -Circular Undermining No No -Exudate Amt Large Large -Exudate Type Serosanguineous Serosanguineous -Wound Margin Thickened Distinct, Outline Attached -Granulation Amt Small (1-33%) Medium (34-66%) -Granulation Quality Hickman Hickman -Slough/Fibrin Yes Yes -Necrosis Amt Large (67-100%) Medium (34-66%) -Necrotic Tissue Type Adherent Slough Adherent Slough -Structure Exposed N/A -Texture (Yuliet-wound Skin Appearance) Assessed, Assessed Scarring -Moisture (Yuliet-wound Skin Appearance) Assessed Dry/Scaly -Color (Yuliet-wound Skin Appearance) Assessed, Assessed Erythema -Temperature (Yuliet-wound Skin No Abnormality No Abnormality Appearance) (Pt Warm) (Pt Warm) -Tenderness on Palpation (Yuliet-wound No No Skin Appearance) -Ulcer Cleansing Soap and Water Wound Cleanser -Foul Odor after Cleansing No No -Anesthetic Used 4% Lidocaine 4% Lidocaine Solution Solution #2 R Lat foot -Combined with other wound No No -Current Size (cm) - Length 0.1 -Current Size (cm) - Width 0.1 -Current Size (cm) - Depth 0.1 -Total Square Cm 0.01 -Epithelialization Small 1-33% -Tunneling No No -Undermining/Tunneling No No -Circular Undermining No No -Exudate Amt Large Large -Exudate Type Serosanguineous Serosanguineous -Wound Margin Distinct, Distinct, Outline Outline Attached Attached -Granulation Amt Medium (34-66%) Medium (34-66%) -Granulation Quality Red Hickman -Slough/Fibrin Yes Yes -Necrosis Amt Medium (34-66%) Medium (34-66%) -Necrotic Tissue Type Adherent Slough Adherent Slough -Structure Exposed N/A -Texture (Yuliet-wound Skin Appearance) Assessed, Assessed Scarring -Moisture (Yuliet-wound Skin Appearance) Assessed Assessed,Dry/ Scaly -Color (Yuliet-wound Skin Appearance) Assessed Assessed -Temperature (Yuliet-wound Skin No Abnormality No Abnormality Appearance) (Pt Warm) (Pt Warm) -Tenderness on Palpation (Yuliet-wound No No Skin Appearance) -Ulcer Cleansing Soap and Water Wound Cleanser -Foul Odor after Cleansing No No -Anesthetic Used 4% Lidocaine 4% Lidocaine Solution Solution WC - Nurse 2 - General Ulcer CM Notes Start: 04/09/23 11:44 Freq: Status: Active Protocol: Activity Type Activity Date Activity User E-sign Co-sign Detail Recorded Client Recorded Date Recorded By Document 04/09/23 11:56 GM Desktop 04/09/23 12:14 GM Document 04/16/23 12:04 GM Desktop 04/16/23 12:18 04/09/23 04/16/23 11:56 12:04 Wound Center Nurse 2 #6 R DORSAL foot -Time 11:57 12:04 -Correct Patient Yes Yes -Correct Side, Site, Position Yes Yes -Correct Procedure Yes Yes -Procedure Performed Yes Yes -Type of Procedure Debridement Debridement -Clinical Debridement Subcutaneous Subcutaneous -Tissue Removed Subcutaneous Subcutaneous -Post Debridement (cm) - Length 2 2.5 -Post Debridement (cm) - Width 6.5 6.5 -Post Debridement (cm) - Depth 0.3 0.2 -Total Square (Post) (cm) 13.0 16.25 -Area of Debridement (cm) - Length 2 -Area of Debridement (cm) - Width 6.5 -Total Square (Area) (cm) 13.0 -Tunneling No No -Undermining/Tunneling No No -Circular Undermining No No -Wound/Ulcer Outcome Not Healed Not Healed -Ulcer Cleansing Rinsed/ Rinsed/ Irrigated with Irrigated with Saline Saline -Foul Odor after Cleansing No No -Bioengineered Tissue No No -Bleeding Controlled with Pressure Pressure -Treatment Response Procedure Procedure Tolerated Well Tolerated Well -Offloading Yes -Type of Offloading Wedge Shoe -Assistive Device(s) Wheelchair -Pressure Reduction Wheelchair cushion -Debridement - Subq, 1st 20sq cm No No #5 L Med foot -Time 11:58 12:04 -Correct Patient Yes Yes -Correct Side, Site, Position Yes Yes -Correct Procedure Yes Yes -Procedure Performed Yes Yes -Type of Procedure Debridement Debridement -Clinical Debridement Subcutaneous Subcutaneous -Tissue Removed Subcutaneous Subcutaneous -Post Debridement (cm) - Length 2.2 1.7 -Post Debridement (cm) - Width 1.7 2.0 -Post Debridement (cm) - Depth 0.2 0.2 -Total Square (Post) (cm) 3.74 3.40 -Area of Debridement (cm) - Length 2.2 -Area of Debridement (cm) - Width 1.7 -Total Square (Area) (cm) 3.74 -Tunneling No No -Undermining/Tunneling No No -Circular Undermining No -Wound/Ulcer Outcome Not Healed Not Healed -Ulcer Cleansing Rinsed/ Rinsed/ Irrigated with Irrigated with Saline Saline -Foul Odor after Cleansing No No -Bioengineered Tissue No No -Bleeding Controlled with Pressure -Treatment Response Procedure Tolerated Well -Offloading Yes -Type of Offloading Wedge Shoe -Assistive Device(s) Wheelchair -Pressure Reduction Wheelchair cushion -Debridement - Subq, 1st 20sq cm Yes Yes -Debridement, SubQ, ea addt'l 20sq cm 2 3 or part thereof #3 R Med Foot -Time 11:58 12:04 -Correct Patient Yes Yes -Correct Side, Site, Position Yes Yes -Correct Procedure Yes Yes -Procedure Performed Yes Yes -Type of Procedure Debridement Debridement -Clinical Debridement Subcutaneous Subcutaneous -Tissue Removed Subcutaneous Subcutaneous -Post Debridement (cm) - Length 8 10.5 -Post Debridement (cm) - Width 2.5 3 -Post Debridement (cm) - Depth 0.3 0.3 -Total Square (Post) (cm) 20.0 31.5 -Area of Debridement (cm) - Length 2.5 -Area of Debridement (cm) - Width 0.4 -Total Square (Area) (cm) 1.00 -Tunneling No No -Undermining/Tunneling No No -Circular Undermining No No -Wound/Ulcer Outcome Not Healed Not Healed -Ulcer Cleansing Rinsed/ Rinsed/ Irrigated with Irrigated with Saline Saline -Foul Odor after Cleansing No No -Bioengineered Tissue No No -Bleeding Controlled with Pressure Pressure -Treatment Response Procedure Procedure Tolerated Well Tolerated Well -Debridement - Subq, 1st 20sq cm No No #2 R Lat foot -Time 12:03 12:04 -Correct Patient Yes Yes -Correct Side, Site, Position Yes Yes -Correct Procedure Yes Yes -Procedure Performed Yes Yes -Type of Procedure Debridement Debridement -Clinical Debridement Subcutaneous Subcutaneous -Tissue Removed Subcutaneous Subcutaneous -Post Debridement (cm) - Length 8 9.0 -Post Debridement (cm) - Width 2.5 3.0 -Post Debridement (cm) - Depth 0.4 0.3 -Total Square (Post) (cm) 20.0 27.00 -Area of Debridement (cm) - Length 8 -Area of Debridement (cm) - Width 2.5 -Total Square (Area) (cm) 20.0 -Tunneling No No -Undermining/Tunneling No No -Circular Undermining No No -Wound/Ulcer Outcome Not Healed Not Healed -Ulcer Cleansing Rinsed/ Rinsed/ Irrigated with Irrigated with Saline Saline -Foul Odor after Cleansing No No -Bioengineered Tissue No No -Bleeding Controlled with Pressure Pressure -Treatment Response Procedure Procedure Tolerated Well Tolerated Well -Debridement - Subq, 1st 20sq cm No No Pain Scale: 0-10 Numeric Is Patient Pain Free? Yes Yes - Nurse 3 - General Ulcer D/C NN Start: 04/09/23 11:44 Freq: Status: Active Protocol: Activity Type Activity Date Activity User E-sign Co-sign Detail Recorded Client Recorded Date Recorded By Document 04/09/23 12:19 BMF Desktop 04/09/23 12:21 BMF Edit Result 04/09/23 12:19 BMF (1) Desktop 04/09/23 12:22 BMF Document 04/16/23 12:20 GM Desktop 04/16/23 12:22 GM (1) #6 R DORSAL foot - Aquacel Extra 1 => 2 04/09/23 04/16/23 12:19 12:20 Wound Care Center Nurse 3 #6 R DORSAL foot -Ulcer Cleansing Rinsed/ Not Cleansed Irrigated with Saline -Foul Odor after Cleansing No No -Negative Pressure Wound Therapy N/A -Primary Dressing Applied Aquacel Extra -Other Dressing ABD -Primary Dressing Covered/Secured with Dry Gauze & Dry Gauze & Roll Gauze, Roll Gauze Secured with Tape -Other Covering PER RN -Aquacel Extra 2 #5 L Med foot -Ulcer Cleansing Rinsed/ Not Cleansed Irrigated with Saline -Foul Odor after Cleansing No No -Negative Pressure Wound Therapy N/A -Primary Dressing Applied Aquacel Extra -Other Dressing ABD -Primary Dressing Covered/Secured with Dry Gauze & Dry Gauze & Roll Gauze, Roll Gauze Secured with Tape -Other Covering PER RN -Aquacel Extra 0 #3 R Med Foot -Ulcer Cleansing Rinsed/ Not Cleansed Irrigated with Saline -Foul Odor after Cleansing No No -Negative Pressure Wound Therapy N/A -Primary Dressing Applied Aquacel Extra -Other Dressing ABD, PER RN -Primary Dressing Covered/Secured with Dry Gauze & Dry Gauze & Roll Gauze, Roll Gauze Secured with Tape -Aquacel Extra 0 #2 R Lat foot -Ulcer Cleansing Rinsed/ Not Cleansed Irrigated with Saline -Foul Odor after Cleansing No No -Negative Pressure Wound Therapy N/A -Primary Dressing Applied Aquacel Extra -Other Dressing ABD, PER RN -Primary Dressing Covered/Secured with Dry Gauze & Dry Gauze & Roll Gauze, Roll Gauze Secured with Tape -Aquacel Extra 0 BLE -Compression Wrap Cole Wrap Cole Wrap Treatment Response Procedure Tolerated Well Pain Scale: 0-10 Numeric Is Patient Pain Free? Yes Yes - Visit Discharge Discharge Condition Stable Stable Ambulatory Status Wheelchair Wheelchair Transportation TRANSPORT [facility] Medication Reconcilliation completed & Yes provided to patient/care provider Clinical Summary of Care Provided Yes Facility Type [facility] Additional Wound Wound debrided: Left medial ankle/lower extremity Type of Debridement: Excisional debridement Anesthesia Used: 4% Lidocaine Solution Depth: Down to and including healthy tissue and in the subcutaneous layer Percentage of wound debrided: 100 Instrument Used: 5mm curette Tissue Removed: Slough and devitalized tissue Severity: Fat Layer Exposed Amount of bleeding with debridement: Mild Bleeding Controlled with: Pressure Patient tolerated procedure: Patient tolerated procedure well Additional Wound Wound debrided: Right medial ankle/lower extremity Type of Debridement: Excisional debridement Anesthesia Used: 4% Lidocaine Solution Depth: Down to and including healthy tissue and in the subcutaneous layer Percentage of wound debrided: 100 Instrument Used: 5mm curette Tissue Removed: Slough and devitalized tissue Severity: Fat Layer Exposed Amount of bleeding with debridement: Mild Bleeding Controlled with: Pressure Patient tolerated procedure: Patient tolerated procedure well Additional Wound Wound debrided: Right Dorsal Foot Type of Debridement: Excisional debridement Anesthesia Used: 4% Lidocaine Solution Depth: Down to and including healthy tissue and in the subcutaneous layer Percentage of wound debrided: 100 Instrument Used: 5mm curette Tissue Removed: Slough and devitalized tissue Severity: Fat Layer Exposed Amount of bleeding with debridement: Mild Bleeding Controlled with: Pressure Patient tolerated procedure: Patient tolerated procedure well Additional Wound Tissue Removed: Slough and devitalized tissue Assessment/Plan Assessment/Plan (1) Ulcer of right lower extremity with fat layer exposed: CODE(S): L97.912 - Non-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 (2) Ulcer of left lower extremity with fat layer exposed: CODE(S): L97.922 - Non-pressure chronic ulcer of unspecified part of left lower leg with fat layer exposed (3) Ulcer of right heel and midfoot with fat layer exposed: CODE(S): L97.412 - Non-pressure chronic ulcer of right heel and midfoot w ith fat layer exposed (4) Polyneuropathy: CODE(S): G62.9 - Polyneuropathy, unspecified (5) Peripheral vascular disease: CODE(S): I73.9 - Peripheral vascular disease, unspecified (6) Debility: CODE(S): R53.81 - Other malaise PLAN: Plan Debridement done as documented above, procedure was well-tolerated. Overall stable, no new concerns. Continue Aquacel extra, cover with foam dressing. Change twice daily or more depending on drainage. Cole wrap to both extremities for edema management. Leg elevation, optimized protein and nutrition again very strongly recommended. His questions were answered and he was advised to let us know if he has any further questions or concerns. Follow up in 1 week or sooner if needed. This note was generated with [employer] dictation software. It may contain incorrect words, spelling, and punctuation that were not noted in checking the note before signing.
[2023-04-23 11:29] VITALS: BP 87/42; PULSE 66; TEMP 36.8
--- NOTE | 2023-04-23 12:17 | PN.PCM_ITS ---
History of Present Illness Date of Service: 04/23/23 Chief Complaint: Nonhealing bilateral lower extremity ulcers History of Wound: Mr Wilson is an 82-year-old who [facility] to nonhealing bilateral lower extremity ulcers. Has had recurrent ulcerations for over 10 years with most recent episode being more severe late last year. He was seen at the emergency room and subsequently advised to follow-up at a wound center which he did at [facility] without any significant improvement. A month ago, he was hospitalized for sepsis secondary to bilateral lower extremity ulcers. Following his admission and hospital stay, he did not return to the prior wound center. He reports a lot of drainage from his ulcers. They have been inconsistent dressing changes at his facility. He feels well otherwise and denies chills, fever. Currently has a PICC line and he is on IV vancomycin and cephalosporin. Progress of Wound: Overall stable. No new concerns at this time. Still awaiting scheduling Vascular studies. Objective Data Objective Data Vital Signs: Vital Signs Temp Pulse Resp BP O2 Del Method 98.3 F 66 18 87/42 L Room Air 04/23/23 11:29 04/23/23 11:29 04/16/23 12:03 04/23/23 11:29 04/23/23 11:29 Oxygen Delivery Method Room Air Charges/Coding Procedures Integumentary [id number]: [id number] Samina subq tissue 20 sq cm/< Add On Codes: 11315 Samina subq tissue add-on (x3. Additional Sq Cm debrided, please refer to clinical note.) Physical Exam Const alert and no apparent distress General Appearance: cooperative and comfortable HEENT normocephalic, head/scalp atraumatic and hearing grossly normal bilaterally Head and Scalp: normal to inspection, normocephalic and atraumatic Neck full ROM General: normal visual inspection Resp normal respiratory effort Effort and Inspection: able to speak in complete sentences Extremity General Extremity: deformity Skin Wounds: wounds noted Neuro CN's II-XII intact bilaterally, moves all extremities and no focal motor deficits Psych mental status grossly normal Appearance: grossly normal Attitude: calm Activity / Motor Behavior: appropriate eye contact Debridement Note Debridement Note Wound debrided: Right Lateral Ankle/Foot Type of Debridement: Excisional debridement Anesthesia Used: 4% Lidocaine Solution Depth: Down to and including healthy tissue and in the subcutaneous layer Percentage of wound debrided: 100 Instrument Used: 7mm curette Tissue Removed: Slough and devitalized tissue Severity: Fat Layer Exposed Amount of bleeding with debridement: Mild Bleeding Controlled with: Pressure Patient tolerated procedure: Patient tolerated procedure well Post-Debridement Measurements and Additional Note: Post-Debridement Measurements/Treatment WC - Nurse 1 - General Ulcer Assessment Start: 04/09/23 11:44 Freq: Status: Active Protocol: MARTA Activity Type Activity Date Activity User E-sign Co-sign Detail Recorded Client Recorded Date Recorded By Document 04/09/23 11:44 BMF Desktop 04/09/23 11:48 BMF Document 04/16/23 12:03 RB [id number] 04/16/23 12:09 RB Document 04/23/23 11:29 GM Desktop 04/23/23 11:35 GM 04/09/23 04/16/23 04/23/23 11:44 12:03 11:29 WC - Today's Visit Information Type of service Follow-up Visit Follow-up Visit Initial Visit (Physician/CARNIVAL WORKER (Physician/CARNIVAL WORKER ) ) Arrival Mode Wheelchair Wheelchair Walker, Wheelchair Transfer Assistance Other Manual Other Transfer Assist (Other) 2 walker and nursing staff Patient Identification Verified (Name & Yes Yes ) Patient Requires Transmission-Based No No Precautions Safety Precautions Fall Prevention Vital Signs Temperature (97.8 F-99.1 F) 97.2 F L 98.6 F 98.3 F Temperature Source Temporal Temporal Temporal Pulse Rate (60-100) 66 63 66 Pulse Location Monitor Monitor Monitor Respiratory Rate (12-18) 16 18 Respiratory rate source Observation Observation Oxygen Delivery Method Room Air Room Air Blood Pressure (90/60-120/80) 114/68 99/54 L 87/42 L Blood Pressure Mean (mm Hg) 83 69 57 Source Monitor Monitor Monitor Position Sitting Semi-Fowlers Sitting Blood Pressure Location Left Forearm Left Arm Left Arm History Since Last Visit- (Skip if this is Patient's initial visit) Have you changed medications since your No No last visit? Any new allergies or adverse reactions No No Had a fall/change in ADL's that may No No increase risk of falls Signs or symptoms of abuse and/or No No neglect since last visit Have you been in the hospital since your No No last visit? Has dressing in place as prescribed Yes Yes Has compression in place as prescribed Yes Yes Has offloadiing in place as prescribed No Yes Experienced any changes in pain level or No No management Left Footwear Surgical Shoe Surgical Shoe with pressure with pressure relief insole relief insole Right Footwear Surgical Shoe Surgical Shoe with pressure with pressure relief insole relief insole Pain Scale: 0-10 Numeric Is Patient Pain Free? Yes Yes Yes WC - Nurse 1 - General Ulcer Measurement Start: 04/09/23 11:44 Freq: Status: Active Protocol: Activity Type Activity Date Activity User E-sign Co-sign Detail Recorded Client Recorded Date Recorded By Document 04/09/23 11:44 BM Desktop 04/09/23 11:48 BMF Document 04/16/23 12:03 RB [id number] 04/16/23 12:09 RB Document 04/23/23 11:29 GM Desktop 04/23/23 11:35 GM 04/09/23 04/16/23 04/23/23 11:44 12:03 11:29 Wound Center Nurse 1 #6 R DORSAL foot -Combined with other wound No No -Current Size (cm) - Length 0.1 -Current Size (cm) - Width 0.1 -Current Size (cm) - Depth 0.1 -Total Square Cm 0.01 -Epithelialization Small 1-33% -Tunneling No No -Undermining/Tunneling No No -Circular Undermining No No -Exudate Amt Large Large -Exudate Type Serosanguineous Serosanguineous -Wound Margin Distinct, Distinct, Outline Outline Attached Attached -Granulation Amt Small (1-33%) Medium (34-66%) -Granulation Quality [place] -Slough/Fibrin Yes Yes -Necrosis Amt Large (67-100%) Medium (34-66%) -Necrotic Tissue Type Adherent Slough Adherent Slough -Structure Exposed N/A -Texture ([place]ul[place]-wound Skin Appearance) Assessed, Assessed Scarring -Moisture ([place]ul[place]-wound Skin Appearance) Assessed,Dry/ Assessed,Dry/ Scaly Scaly -Color ([place]ul[place]-wound Skin Appearance) Assessed, Assessed Erythema -Temperature ([place]ul[place]-wound Skin No Abnormality No Abnormality Appearance) (Pt Warm) (Pt Warm) -Tenderness on Palpation ([place]ul[place]-wound No No Skin Appearance) -Ulcer Cleansing Soap and Water Wound Cleanser -Foul Odor after Cleansing No No -Anesthetic Used 4% Lidocaine 4% Lidocaine Solution Solution #5 L Med foot -Combined with other wound No No -Current Size (cm) - Length 0.1 -Current Size (cm) - Width 0.1 -Current Size (cm) - Depth 0.1 -Total Square Cm 0.01 -Epithelialization None Present -Tunneling No No -Undermining/Tunneling No No -Circular Undermining No No -Exudate Amt Medium Large -Exudate Type Serosanguineous Serosanguineous -Wound Margin Distinct, Distinct, Outline Outline Attached Attached -Granulation Amt Small (1-33%) Medium (34-66%) -Granulation Quality [place] -Slough/Fibrin Yes Yes -Necrosis Amt Large (67-100%) Medium (34-66%) -Necrotic Tissue Type Adherent Slough Adherent Slough -Structure Exposed N/A -Texture ([place]ul[place]-wound Skin Appearance) Assessed, Assessed Scarring -Moisture ([place]ul[place]-wound Skin Appearance) Assessed, Assessed,Dry/ Maceration,Dry/ Scaly Scaly -Color (Yuliet-wound Skin Appearance) Assessed Assessed -Temperature ([place]ul[place]-wound Skin No Abnormality No Abnormality Appearance) (Pt Warm) (Pt Warm) -Tenderness on Palpation ([place]ul[place]-wound No No Skin Appearance) -Ulcer Cleansing Soap and Water Wound Cleanser -Foul Odor after Cleansing No No -Anesthetic Used 4% Lidocaine 4% Lidocaine Solution Solution #3 R Med Foot -Combined with other wound No No -Current Size (cm) - Length 0.1 -Current Size (cm) - Width 0.1 -Current Size (cm) - Depth 0.1 -Total Square Cm 0.01 -Epithelialization None Present -Tunneling No No -Undermining/Tunneling No No -Circular Undermining No No -Exudate Amt Large Large -Exudate Type Serosanguineous Serosanguineous -Wound Margin Thickened Distinct, Outline Attached -Granulation Amt Small (1-33%) Medium (34-66%) -Granulation Quality [place] -Slough/Fibrin Yes Yes -Necrosis Amt Large (67-100%) Medium (34-66%) -Necrotic Tissue Type Adherent Slough Adherent Slough -Structure Exposed N/A -Texture (Yul[place]-wound Skin Appearance) Assessed, Assessed Scarring -Moisture ([place]ul[place]-wound Skin Appearance) Assessed Dry/Scaly -Color ([place]ul[place]-wound Skin Appearance) Assessed, Assessed Erythema -Temperature ([place]ul[place]-wound Skin No Abnormality No Abnormality Appearance) (Pt Warm) (Pt Warm) -Tenderness on Palpation ([place]ul[place]-wound No No Skin Appearance) -Ulcer Cleansing Soap and Water Wound Cleanser -Foul Odor after Cleansing No No -Anesthetic Used 4% Lidocaine 4% Lidocaine Solution Solution #2 R Lat foot -Combined with other wound No No -Current Size (cm) - Length 0.1 -Current Size (cm) - Width 0.1 -Current Size (cm) - Depth 0.1 -Total Square Cm 0.01 -Epithelialization Small 1-33% -Tunneling No No -Undermining/Tunneling No No -Circular Undermining No No -Exudate Amt Large Large -Exudate Type Serosanguineous Serosanguineous -Wound Margin Distinct, Distinct, Outline Outline Attached Attached -Granulation Amt Medium (34-66%) Medium (34-66%) -Granulation Quality [place] -Slough/Fibrin Yes Yes -Necrosis Amt Medium (34-66%) Medium (34-66%) -Necrotic Tissue Type Adherent Slough Adherent Slough -Structure Exposed N/A -Texture (Yuliet-wound Skin Appearance) Assessed, Assessed Scarring -Moisture ([place]ul[place]-wound Skin Appearance) Assessed Assessed,Dry/ Scaly -Color ([place]ul[place]-wound Skin Appearance) Assessed Assessed -Temperature ([place]ul[place]-wound Skin No Abnormality No Abnormality Appearance) (Pt Warm) (Pt Warm) -Tenderness on Palpation (Yuliet-wound No No Skin Appearance) -Ulcer Cleansing Soap and Water Wound Cleanser -Foul Odor after Cleansing No No -Anesthetic Used 4% Lidocaine 4% Lidocaine Solution Solution Right Calf (cm) 34.5 Right Ankle (cm) 25.2 Left Calf (cm) 34.5 Left Ankle (cm) 23.5 WC - Nurse 2 - General Ulcer CM Notes Start: 04/09/23 11:44 Freq: Status: Active Protocol: Activity Type Activity Date Activity User E-sign Co-sign Detail Recorded Client Recorded Date Recorded By Document 04/09/23 11:56 Desktop 04/09/23 12:14 Document 04/16/23 12:04 Desktop 04/16/23 12:18 GM Document 04/23/23 11:41 Desktop 04/23/23 11:57 1004/16/23 04/23/23 11:56 12:04 11:41 Wound Center Nurse 2 #6 R DORSAL foot -Time 11:57 12:04 11:43 -Correct Patient Yes Yes Yes -Correct Side, Site, Position Yes Yes Yes -Correct Procedure Yes Yes Yes -Procedure Performed Yes Yes Yes -Type of Procedure Debridement Debridement Debridement -Clinical Debridement Subcutaneous Subcutaneous Subcutaneous -Tissue Removed Subcutaneous Subcutaneous Subcutaneous -Post Debridement (cm) - Length 2 2.5 2.5 -Post Debridement (cm) - Width 6.5 6.5 6.5 -Post Debridement (cm) - Depth 0.3 0.2 0.3 -Total Square (Post) (cm) 13.0 16.25 16.25 -Area of Debridement (cm) - Length 2 2.5 -Area of Debridement (cm) - Width 6.5 6.5 -Total Square (Area) (cm) 13.0 16.25 -Tunneling No No No -Undermining/Tunneling No No No -Circular Undermining No No No -Wound/Ulcer Outcome Not Healed Not Healed Not Healed -Ulcer Cleansing Rinsed/ Rinsed/ Rinsed/ Irrigated with Irrigated with Irrigated with Saline Saline Saline -Foul Odor after Cleansing No No No -Bioengineered Tissue No No No -Bleeding Controlled with Pressure Pressure Pressure -Treatment Response Procedure Procedure Procedure Tolerated Well Tolerated Well Tolerated Well -Offloading Yes -Type of Offloading Wedge Shoe -Assistive Device(s) Wheelchair -Pressure Reduction Wheelchair cushion -Debridement - Subq, 1st 20sq cm No No No #5 L Med foot -Time 11:58 12:04 11:43 -Correct Patient Yes Yes Yes -Correct Side, Site, Position Yes Yes Yes -Correct Procedure Yes Yes Yes -Procedure Performed Yes Yes Yes -Type of Procedure Debridement Debridement Debridement -Clinical Debridement Subcutaneous Subcutaneous Subcutaneous -Tissue Removed Subcutaneous Subcutaneous Subcutaneous -Post Debridement (cm) - Length 2.2 1.7 2.5 -Post Debridement (cm) - Width 1.7 2.0 1.7 -Post Debridement (cm) - Depth 0.2 0.2 0.2 -Total Square (Post) (cm) 3.74 3.40 4.25 -Area of Debridement (cm) - Length 2.2 2.5 -Area of Debridement (cm) - Width 1.7 1.7 -Total Square (Area) (cm) 3.74 4.25 -Tunneling No No No -Undermining/Tunneling No No No -Circular Undermining No No -Wound/Ulcer Outcome Not Healed Not Healed Not Healed -Ulcer Cleansing Rinsed/ Rinsed/ Wound Cleanser Irrigated with Irrigated with Saline Saline -Foul Odor after Cleansing No No No -Bioengineered Tissue No No -Bleeding Controlled with Pressure Pressure -Treatment Response Procedure Procedure Tolerated Well Tolerated Well -Offloading Yes -Type of Offloading Wedge Shoe -Assistive Device(s) Wheelchair Wheelchair -Pressure Reduction Wheelchair cushion -Debridement - Subq, 1st 20sq cm Yes Yes Yes -Debridement, SubQ, ea addt'l 20sq cm 2 3 3 or part thereof #3 R Med Foot -Time 11:58 12:04 11:43 -Correct Patient Yes Yes Yes -Correct Side, Site, Position Yes Yes Yes -Correct Procedure Yes Yes Yes -Procedure Performed Yes Yes Yes -Type of Procedure Debridement Debridement Debridement -Clinical Debridement Subcutaneous Subcutaneous Subcutaneous -Tissue Removed Subcutaneous Subcutaneous Subcutaneous -Post Debridement (cm) - Length 8 10.5 10.0 -Post Debridement (cm) - Width 2.5 3 2.5 -Post Debridement (cm) - Depth 0.3 0.3 0.2 -Total Square (Post) (cm) 20.0 31.5 25.00 -Area of Debridement (cm) - Length 2.5 10.0 -Area of Debridement (cm) - Width 0.4 2.5 -Total Square (Area) (cm) 1.00 25.00 -Tunneling No No No -Undermining/Tunneling No No No -Circular Undermining No No No -Wound/Ulcer Outcome Not Healed Not Healed Not Healed -Ulcer Cleansing Rinsed/ Rinsed/ Rinsed/ Irrigated with Irrigated with Irrigated with Saline Saline Saline -Foul Odor after Cleansing No No No -Bioengineered Tissue No No No -Bleeding Controlled with Pressure Pressure Pressure -Treatment Response Procedure Procedure Procedure Tolerated Well Tolerated Well Tolerated Well -Type of Offloading Surgical Shoe -Assistive Device(s) Wheelchair, Walker -Debridement - Subq, 1st 20sq cm No No No #2 R Lat foot -Time 12:03 12:04 11:42 -Correct Patient Yes Yes Yes -Correct Side, Site, Position Yes Yes Yes -Correct Procedure Yes Yes Yes -Procedure Performed Yes Yes Yes -Type of Procedure Debridement Debridement Debridement -Clinical Debridement Subcutaneous Subcutaneous Subcutaneous -Tissue Removed Subcutaneous Subcutaneous Subcutaneous -Post Debridement (cm) - Length 8 9.0 3.0 -Post Debridement (cm) - Width 2.5 3.0 9.5 -Post Debridement (cm) - Depth 0.4 0.3 0.3 -Total Square (Post) (cm) 20.0 27.00 28.50 -Area of Debridement (cm) - Length 8 3.0 -Area of Debridement (cm) - Width 2.5 9.5 -Total Square (Area) (cm) 20.0 28.50 -Tunneling No No No -Undermining/Tunneling No No No -Circular Undermining No No No -Wound/Ulcer Outcome Not Healed Not Healed Not Healed -Ulcer Cleansing Rinsed/ Rinsed/ Wound Cleanser Irrigated with Irrigated with Saline Saline -Foul Odor after Cleansing No No No -Bioengineered Tissue No No No -Bleeding Controlled with Pressure Pressure Pressure -Treatment Response Procedure Procedure Procedure Tolerated Well Tolerated Well Tolerated Well -Debridement - Subq, 1st 20sq cm No No No Pain Scale: 0-10 Numeric Is Patient Pain Free? Yes Yes Yes WC - Nurse 3 - General Ulcer D/C NN Start: 04/09/23 11:44 Freq: Status: Active Protocol: Activity Type Activity Date Activity User E-sign Co-sign Detail Recorded Client Recorded Date Recorded By Document 04/09/23 12:19 BMF Desktop 04/09/23 12:21 BMF Edit Result 04/09/23 12:19 BMF (1) Desktop 04/09/23 12:22 BMF Document 04/16/23 12:20 GM Desktop 04/16/23 12:22 GM Document 04/23/23 11:57 GM Desktop 04/23/23 11:59 GM (1) #6 R DORSAL foot - Aquacel Extra 1 => 2 04/09/23 04/16/23 04/23/23 12:19 12:20 11:57 Wound Care Center Nurse 3 #6 R DORSAL foot -Ulcer Cleansing Rinsed/ Not Cleansed Not Cleansed Irrigated with Saline -Foul Odor after Cleansing No No No -Negative Pressure Wound Therapy N/A N/A -Primary Dressing Applied Aquacel Extra Aquacel Extra -Other Dressing ABD -Primary Dressing Covered/Secured with Dry Gauze & Dry Gauze & Dry Gauze & Roll Gauze, Roll Gauze Roll Gauze Secured with Tape -Other Covering PER RN -Aquacel Extra 2 1 #5 L Med foot -Ulcer Cleansing Rinsed/ Not Cleansed Not Cleansed Irrigated with Saline -Foul Odor after Cleansing No No No -Negative Pressure Wound Therapy N/A N/A -Primary Dressing Applied Aquacel Extra Aquacel Extra -Other Dressing ABD -Primary Dressing Covered/Secured with Dry Gauze & Dry Gauze & Dry Gauze & Roll Gauze, Roll Gauze Roll Gauze, Secured with Secured with Tape Tape -Other Covering PER RN -Aquacel Extra 0 1 #3 R Med Foot -Ulcer Cleansing Rinsed/ Not Cleansed Not Cleansed Irrigated with Saline -Foul Odor after Cleansing No No No -Negative Pressure Wound Therapy N/A N/A -Primary Dressing Applied Aquacel Extra -Other Dressing ABD, PER RN -Primary Dressing Covered/Secured with Dry Gauze & Dry Gauze & Dry Gauze & Roll Gauze, Roll Gauze Roll Gauze, Secured with Secured with Tape Tape -Aquacel Extra 0 #2 R Lat foot -Ulcer Cleansing Rinsed/ Not Cleansed Not Cleansed Irrigated with Saline -Foul Odor after Cleansing No No No -Negative Pressure Wound Therapy N/A N/A -Primary Dressing Applied Aquacel Extra -Other Dressing ABD, PER RN -Primary Dressing Covered/Secured with Dry Gauze & Dry Gauze & Dry Gauze & Roll Gauze, Roll Gauze Roll Gauze, Secured with Secured with Tape Tape -Aquacel Extra 0 BLE -Lotion applied to leg before No compression wrap -Compression Wrap Cole Wrap Cole Wrap Cole Wrap Treatment Response Procedure Tolerated Well Pain Scale: 0-10 Numeric Is Patient Pain Free? Yes Yes Yes Teaching: Wound Center Compression Wraps & Stockings -Person Taught Patient -Teaching Method Discussion -Response to teaching Verbalize understanding Dressing Your Wound -Person Taught Patient -Teaching Method Discussion -Response to teaching Verbalize understanding - Visit Discharge Discharge Condition Stable Stable Stable Ambulatory Status Wheelchair Wheelchair Wheelchair Transportation TRANSPORT [facility] transportation Medication Reconcilliation completed & Yes Yes provided to patient/care provider Clinical Summary of Care Provided Yes Yes Facility Type [facility] Facility Additional Wound Wound debrided: Left medial ankle/lower extremity Type of Debridement: Excisional debridement Anesthesia Used: 4% Lidocaine Solution Depth: Down to and including healthy tissue and in the subcutaneous layer Percentage of wound debrided: 100 Instrument Used: 5mm curette Tissue Removed: Slough and devitalized tissue Severity: Fat Layer Exposed Amount of bleeding with debridement: Mild Bleeding Controlled with: Pressure Patient tolerated procedure: Patient tolerated procedure well Additional Wound Wound debrided: Right medial ankle/lower extremity Type of Debridement: Excisional debridement Anesthesia Used: 4% Lidocaine Solution Depth: Down to and including healthy tissue and in the subcutaneous layer Percentage of wound debrided: 100 Instrument Used: 5mm curette Tissue Removed: Slough and devitalized tissue Severity: Fat Layer Exposed Amount of bleeding with debridement: Mild Bleeding Controlled with: Pressure Patient tolerated procedure: Patient tolerated procedure well Additional Wound Wound debrided: Right Dorsal Foot Type of Debridement: Excisional debridement Anesthesia Used: 4% Lidocaine Solution Depth: Down to and including healthy tissue and in the subcutaneous layer Percentage of wound debrided: 100 Instrument Used: 5mm curette Tissue Removed: Slough and devitalized tissue Severity: Fat Layer Exposed Amount of bleeding with debridement: Mild Bleeding Controlled with: Pressure Patient tolerated procedure: Patient tolerated procedure well Additional Wound Tissue Removed: Slough and devitalized tissue Assessment/Plan Assessment/Plan (1) Ulcer of right lower extremity with fat layer exposed: CODE(S): L97.912 - Non-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 (2) Ulcer of left lower extremity with fat layer exposed: CODE(S): L97.922 - Non-pressure chronic ulcer of unspecified part of left lower leg with fat layer exposed (3) Ulcer of right heel and midfoot with fat layer exposed: CODE(S): L97.412 - Non-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 Overall stable, no new concerns. Continue Aquacel extra, cover with foam dressing. Change twice daily or more depending on drainage. Cole wrap to both extremities for edema management. Leg elevation, optimized protein and nutrition recommended. His questions were answered and he was advised to let us know if he has any further questions or concerns. Follow up in 1 week or sooner if needed. This note was generated with [employer] dictation software. It may contain incorrect words, spelling, and punctuation that were not noted in checking the note before signing.
== END 2023-04-28 23:59 | disposition home or self-care (01) ==
LOC: WC 11:30
PROVIDERS: PCP Family Medicine; Referring Provider Family Medicine; Visit Provider Internal Medicine
DX: L97.922 Non-pressure chronic ulcer of unspecified part of left lower leg with fat layer exposed (principal); L97.412 Non-pressure chronic ulcer of right heel and midfoot with fat layer exposed; L97.912 Non-pressure chronic ulcer of unspecified part of right lower leg with fat layer exposed; I73.9 Peripheral vascular disease, unspecified; R53.81 Other malaise; G62.9 Polyneuropathy, unspecified
CPT/HCPCS: 11042; 11045

== ENCOUNTER 2023-05-28 11:15 | Outpatient (RCR) | payer MEDICARE, BC, SELFPAY ==
[2023-04-29 00:14] VITALS: BP 87/42; PULSE 66; RESP 18; TEMP 36.8
--- NOTE | 2023-04-30 08:56 | ART_ITS ---
Reason For Study: Ulcer Procedure A bilateral lower extremity continuous wave Doppler with analog waveform analysis,segmental pressures,and ankle brachial indexes without exercise. Limited study performed due to patient movement and contraction of legs. Left Segmental Pressures Left posterior tibial artery = 120mmHg. Left dorsalis pedis artery = 114mmHg. The left dorsalis pedis waveforms are biphasic. The left posterior tibial artery waveforms are biphasic. Right Segmental Pressures Right brachial= 96mmHg. Right posterior tibial artery = 102mmHg. Right dorsalis pedis artery = 101mmHg. The right dorsalis pedis waveforms are biphasic. The right posterior tibial artery waveforms are biphasic. Indices The right ankle brachial index by the dorsalis pedis is 1.05. The right ankle brachial index by the posterior tibial artery is 1.06. The left ankle brachial index by the dorsalis pedis is 1.19. The left ankle brachial index by the posterior tibial artery is 1.25. VL/Lower Ext Art Exam w/o Exercis Interpretation Summary Right SAMRA 1.06, normal. Doppler/PVR waveforms of the right ankle mildly diminis hed at rest. Left SAMRA 1.25, normal. Doppler/PVR waveforms of the left ankle mildly diminishe d at rest. Ordering Physician: Juliet Christopher Referring Physician: Jabari Alfonso Performed By: Hallie Heath RVT
--- NOTE | 2023-04-30 08:56 | VDLE_ITS ---
Reason For Study: Bilateral leg swelling RIGHT LEFT CFV is compressible, spontaneous, phasic, CFV is compressible, spontaneous, phasic, competent and demonstrates normal competent, and demonstrates normal augmentation. augmentation. FV is compressible, spontaneous, phasic, FV is compressible, spontaneous, phasic, competent and demonstrates normal competent and demonstrates normal augmentation. augmentation. POP V is compressible, spontaneous, phasic, T/P Trunk is compressible. competent and demonstrates normal PTV is compressible. augmentation. LT PerV is compressible. T/P Trunk is compressible. PopV visualized with color only. Normal PTV is compressible. venous flow with augmentation. RT PerV is compressible. SSV not visualized due to patient SFJ is competent and measures 1.24 x 0.86 cm. positioning. GSV proximal thigh measures 0.80 x 0.90 cm. SFJ is competent and measures 0.78 x 1.19 cm. GSV at knee measures 0.67 x 0.83 cm. GSV proximal thigh measures 0.41 x 0.44 cm. GSV is competent throughout. GSV at knee measures 0.37 x 0.48 cm. SSV proximal calf is competent and measures GSV is competent throughout. 0.51 x 0.55 cm. Procedure This is a venous duplex using B-mode, color flow and spectral Doppler. Exam performed in department. Technically difficult and limited study performed due to patient movement and contraction of legs. VL/Venous Duplex US - Jass Extrem Interpretation Summary Deep veins of the bilateral lower extremities are patent and compressible segme ntally. There is no evidence of bilateral lower extremity deep vein thrombosis. The bilateral great saphenous veins appear patent and compressible segmentally. Ordering Physician: Juliet Christopher Referring Physician: Jabari Alfonso Performed By: Hallie Heath RVT
[2023-04-30 10:18] VITALS: BP 102/48; PULSE 61; RESP 18; TEMP 36.9
--- NOTE | 2023-04-30 12:25 | PCM.WC.PN ---
History of Present Illness Date of Service: 04/30/23 Chief Complaint: Nonhealing bilateral lower extremity ulcers History of Wound: Mr Wilson is an 82-year-old who was brought in here from his snf due to nonhealing bilateral lower extremity ulcers. Has had recurrent ulcerations for over 10 years with most recent episode being more severe late last year. He was seen at the emergency room and subsequently advised to follow-up at a wound center which he did at [facility] without any significant improvement. A month ago, he was hospitalized for sepsis secondary to bilateral lower extremity ulcers. Following his admission and hospital stay, he did not return to the prior wound center. He reports a lot of drainage from his ulcers. They have been inconsistent dressing changes at his facility. He feels well otherwise and denies chills, fever. Currently has a PICC line and he is on IV vancomycin and cephalosporin. Progress of Wound: No new concerns at this time. Had Vascular testing done today. Right Lower edema improved. Lateral wounds appear much veneer drier feeder. Medial still with Maceration. Objective Data Objective Data Vital Signs: Vital Signs Temp Pulse Resp BP 98.4 F 61 18 102/48 L 04/30/23 10:18 04/30/23 10:18 04/30/23 10:18 04/30/23 10:18 Charges/Coding Procedures Integumentary [id number]: [id number] Samnia subq tissue 20 sq cm/< Add On Codes: 09746 Samina subq tissue add-on (x3. Additional Sq Cm debrided, please refer to clinical note. ) Physical Exam Const alert and no apparent distress General Appearance: cooperative and comfortable HEENT normocephalic, head/scalp atraumatic and hearing grossly normal bilaterally Head and Scalp: normal to inspection, normocephalic and atraumatic Neck full ROM General: normal visual inspection Resp normal respiratory effort Effort and Inspection: able to speak in complete sentences Extremity General Extremity: deformity Skin Wounds: wounds noted Neuro CN's II-XII intact bilaterally, moves all extremities and no focal motor deficits Psych mental status grossly normal Appearance: grossly normal Attitude: calm Activity / Motor Behavior: appropriate eye contact Debridement Note Debridement Note Wound debrided: Right Lateral Ankle/Foot Type of Debridement: Excisional debridement Anesthesia Used: 4% Lidocaine Solution Depth: Down to and including healthy tissue and in the subcutaneous layer Percentage of wound debrided: 100 Instrument Used: 7mm curette Tissue Removed: Slough and devitalized tissue Severity: Fat Layer Exposed Amount of bleeding with debridement: Mild Bleeding Controlled with: Pressure Patient tolerated procedure: Patient tolerated procedure well Post-Debridement Measurements and Additional Note: Post-Debridement Measurements/Treatment - Nurse 1 - General Ulcer Assessment Start: 04/30/23 08:44 Freq: Status: Active Protocol: MARTA Activity Type Activity Date Activity User E-sign Co-sign Detail Recorded Client Recorded Date Recorded By Document 04/30/23 10:18 DL RecordSledktop 04/30/23 10:33 DL 04/30/23 10:18 WC - Today's Visit Information Type of service 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 ) Arrival Mode Wheelchair Transfer Assistance Manual Transfer Assist (Other) x2 Patient Identification Verified (Name & Yes ) Patient Requires Transmission-Based No Precautions Vital Signs Temperature (97.8 F-99.1 F) 98.4 F Temperature Source Temporal Pulse Rate (60-100) 61 Pulse Location Monitor Respiratory Rate (12-18) 18 Respiratory rate source Observation Blood Pressure (90/60-120/80) 102/48 L Blood Pressure Mean (mm Hg) 66 Source Monitor History Since Last Visit- (Skip if this is Patient's initial visit) Any new allergies or adverse reactions No Had a fall/change in ADL's that may No increase risk of falls Signs or symptoms of abuse and/or No neglect since last visit Have you been in the hospital since your No last visit? Has dressing in place as prescribed Yes Has compression in place as prescribed Yes Has offloadiing in place as prescribed N/A Experienced any changes in pain level or No management Left Footwear Surgical Shoe with pressure relief insole Right Footwear Surgical Shoe with pressure relief insole Pain Scale: 0-10 Numeric Is Patient Pain Free? Yes - Nurse 1 - General Ulcer Measurement Start: 04/30/23 08:44 Freq: Status: Active Protocol: Activity Type Activity Date Activity User E-sign Co-sign Detail Recorded Client Recorded Date Recorded By Document 04/30/23 10:18 DL RecordSledktop 04/30/23 10:33 DL 04/30/23 10:18 Wound Center Nurse 1 #6 R DORSAL foot -Current Size (cm) - Length 2.4 -Current Size (cm) - Width 6 -Current Size (cm) - Depth 0.2 -Total Square Cm 14.4 -Exudate Amt Large -Exudate Type Serosanguineous -Wound Margin Distinct, Outline Attached -Granulation Amt Small (1-33%) -Granulation Quality Hoyt -Necrosis Amt Large (67-100%) -Necrotic Tissue Type Adherent Slough -Structure Exposed N/A -Texture (Yuliet-wound Skin Appearance) Localized Edema ,Scarring -Moisture (Yuliet-wound Skin Appearance) Maceration, Weeping -Color (Yuliet-wound Skin Appearance) Hemosiderin Staining -Temperature (Yuliet-wound Skin No Abnormality Appearance) (Pt Warm) -Ulcer Cleansing Not Cleansed -Foul Odor after Cleansing No -Anesthetic Used 4% Lidocaine Solution #5 L Med foot -Current Size (cm) - Length 5.5 -Current Size (cm) - Width 2.3 -Current Size (cm) - Depth 0.3 -Total Square Cm 12.65 -Exudate Amt Large -Exudate Type Serosanguineous -Wound Margin Distinct, Outline Attached -Granulation Amt Small (1-33%) -Granulation Quality Hoyt -Necrosis Amt Large (67-100%) -Necrotic Tissue Type Adherent Slough -Structure Exposed N/A -Texture (Yuliet-wound Skin Appearance) Scarring -Moisture (Yuliet-wound Skin Appearance) Maceration, Weeping -Color (Yuliet-wound Skin Appearance) Hemosiderin Staining -Temperature (Yuliet-wound Skin No Abnormality Appearance) (Pt Warm) -Tenderness on Palpation (Yuliet-wound No Skin Appearance) -Ulcer Cleansing Soap and Water -Foul Odor after Cleansing No -Anesthetic Used 4% Lidocaine Solution #3 R Med Foot -Current Size (cm) - Length 14 -Current Size (cm) - Width 2 -Current Size (cm) - Depth 0.3 -Total Square Cm 28 -Exudate Amt Large -Exudate Type Serosanguineous -Wound Margin Distinct, Outline Attached -Granulation Amt Small (1-33%) -Granulation Quality Hoyt -Necrosis Amt Large (67-100%) -Necrotic Tissue Type Adherent Slough -Structure Exposed N/A -Texture (Yuliet-wound Skin Appearance) Scarring -Moisture (Yuliet-wound Skin Appearance) Maceration, Weeping -Color (Yuliet-wound Skin Appearance) Hemosiderin Staining -Temperature (Yuliet-wound Skin No Abnormality Appearance) (Pt Warm) -Tenderness on Palpation (Yuliet-wound No Skin Appearance) -Ulcer Cleansing Not Cleansed -Foul Odor after Cleansing Yes, Due to Product Use -Anesthetic Used 4% Lidocaine Solution #2 R Lat foot -Current Size (cm) - Length 15 -Current Size (cm) - Width 3 -Current Size (cm) - Depth 0.3 -Total Square Cm 45 -Exudate Amt Large -Exudate Type Serosanguineous -Wound Margin Distinct, Outline Attached -Granulation Amt Small (1-33%) -Granulation Quality Hoyt -Necrosis Amt Large (67-100%) -Necrotic Tissue Type Adherent Slough -Structure Exposed N/A -Texture (Yuliet-wound Skin Appearance) Scarring -Moisture (Yuliet-wound Skin Appearance) Maceration, Weeping -Color (Yuliet-wound Skin Appearance) Hemosiderin Staining -Temperature (Yuliet-wound Skin No Abnormality Appearance) (Pt Warm) -Tenderness on Palpation (Yuliet-wound No Skin Appearance) -Ulcer Cleansing Soap and Water -Foul Odor after Cleansing No -Anesthetic Used 4% Lidocaine Solution Right Calf (cm) 34 Right Ankle (cm) 23.5 Left Calf (cm) 33.5 Left Ankle (cm) 22.5 WC - Nurse 2 - General Ulcer CM Notes Start: 04/30/23 08:44 Freq: Status: Active Protocol: Activity Type Activity Date Activity User E-sign Co-sign Detail Recorded Client Recorded Date Recorded By Document 04/30/23 10:49 GM Desktop 04/30/23 11:05 GM 04/30/23 10:49 Wound Center Nurse 2 #6 R DORSAL foot -Time 10:49 -Correct Patient Yes -Correct Side, Site, Position Yes -Correct Procedure Yes -Procedure Performed Yes -Type of Procedure Debridement -Clinical Debridement Subcutaneous -Tissue Removed Subcutaneous -Post Debridement (cm) - Length 2.5 -Post Debridement (cm) - Width 6.0 -Post Debridement (cm) - Depth 0.2 -Total Square (Post) (cm) 15.00 -Area of Debridement (cm) - Length 2.5 -Area of Debridement (cm) - Width 6.0 -Total Square (Area) (cm) 15.00 -Tunneling No -Undermining/Tunneling No -Circular Undermining No -Wound/Ulcer Outcome Not Healed -Ulcer Cleansing Rinsed/ Irrigated with Saline -Foul Odor after Cleansing No -Bioengineered Tissue No -Bleeding Controlled with Pressure -Treatment Response Procedure Tolerated Well -Debridement - Subq, 1st 20sq cm No #5 L Med foot -Time 10:51 -Correct Patient Yes -Correct Side, Site, Position Yes -Correct Procedure Yes -Procedure Performed Yes -Type of Procedure Debridement -Clinical Debridement Subcutaneous -Tissue Removed Subcutaneous -Post Debridement (cm) - Length 2.0 -Post Debridement (cm) - Width 1.5 -Post Debridement (cm) - Depth 0.2 -Total Square (Post) (cm) 3.00 -Area of Debridement (cm) - Length 2.0 -Area of Debridement (cm) - Width 1.5 -Total Square (Area) (cm) 3.00 -Tunneling No -Undermining/Tunneling No -Circular Undermining No -Wound/Ulcer Outcome Not Healed -Ulcer Cleansing Rinsed/ Irrigated with Saline -Foul Odor after Cleansing No -Bioengineered Tissue No -Bleeding Controlled with Pressure -Treatment Response Procedure Tolerated Well -Debridement - Subq, 1st 20sq cm No #3 R Med Foot -Time 10:51 -Correct Patient Yes -Correct Side, Site, Position Yes -Correct Procedure Yes -Procedure Performed Yes -Type of Procedure Debridement -Clinical Debridement Subcutaneous -Tissue Removed Subcutaneous -Post Debridement (cm) - Length 2.5 -Post Debridement (cm) - Width 11.0 -Post Debridement (cm) - Depth 0.2 -Total Square (Post) (cm) 27.50 -Area of Debridement (cm) - Length 2.5 -Area of Debridement (cm) - Width 11.0 -Total Square (Area) (cm) 27.50 -Tunneling No -Undermining/Tunneling No -Circular Undermining No -Wound/Ulcer Outcome Not Healed -Ulcer Cleansing Rinsed/ Irrigated with Saline -Foul Odor after Cleansing No -Bioengineered Tissue No -Bleeding Controlled with Pressure -Treatment Response Procedure Tolerated Well -Debridement - Subq, 1st 20sq cm Yes -Debridement, SubQ, ea addt'l 20sq cm 3 or part thereof #2 R Lat foot -Time 10:52 -Correct Patient Yes -Correct Side, Site, Position Yes -Correct Procedure Yes -Procedure Performed Yes -Type of Procedure Debridement -Clinical Debridement Subcutaneous -Tissue Removed Subcutaneous -Post Debridement (cm) - Length 2.5 -Post Debridement (cm) - Width 8.3 -Post Debridement (cm) - Depth 0.2 -Total Square (Post) (cm) 20.75 -Area of Debridement (cm) - Length 2.5 -Area of Debridement (cm) - Width 8.3 -Total Square (Area) (cm) 20.75 -Tunneling No -Undermining/Tunneling No -Circular Undermining No -Wound/Ulcer Outcome Not Healed -Ulcer Cleansing Rinsed/ Irrigated with Saline -Foul Odor after Cleansing No -Bioengineered Tissue No -Bleeding Controlled with Pressure -Treatment Response Procedure Tolerated Well -Debridement - Subq, 1st 20sq cm No Pain Scale: 0-10 Numeric Is Patient Pain Free? Yes Additional Wound Wound debrided: Left medial ankle/lower extremity Type of Debridement: Excisional debridement Anesthesia Used: 4% Lidocaine Solution Depth: Down to and including healthy tissue and in the subcutaneous layer Percentage of wound debrided: 100 Instrument Used: 5mm curette Tissue Removed: Slough and devitalized tissue Severity: Fat Layer Exposed Amount of bleeding with debridement: Mild Bleeding Controlled with: Pressure Patient tolerated procedure: Patient tolerated procedure well Additional Wound Wound debrided: Right medial ankle/lower extremity Type of Debridement: Excisional debridement Anesthesia Used: 4% Lidocaine Solution Depth: Down to and including healthy tissue and in the subcutaneous layer Percentage of wound debrided: 100 Instrument Used: 5mm curette Tissue Removed: Slough and devitalized tissue Severity: Fat Layer Exposed Amount of bleeding with debridement: Mild Bleeding Controlled with: Pressure Patient tolerated procedure: Patient tolerated procedure well Additional Wound Wound debrided: Right Dorsal Foot Type of Debridement: Excisional debridement Anesthesia Used: 4% Lidocaine Solution Depth: Down to and including healthy tissue and in the subcutaneous layer Percentage of wound debrided: 100 Instrument Used: 5mm curette Tissue Removed: Slough and devitalized tissue Severity: Fat Layer Exposed Amount of bleeding with debridement: Mild Bleeding Controlled with: Pressure Patient tolerated procedure: Patient tolerated procedure well Additional Wound Tissue Removed: Slough and devitalized tissue Assessment/Plan Assessment/Plan (1) Ulcer of right lower extremity with fat layer exposed: CODE(S): L97.912 - Non-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 (2) Ulcer of left lower extremity with fat layer exposed: CODE(S): L97.922 - Non-pressure chronic ulcer of unspecified part of left lower leg with fat layer exposed (3) Ulcer of right heel and midfoot with fat layer exposed: CODE(S): L97.412 - Non-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 Some improvement to the right lateral foot/ankle ulcers. Others fairly stable. Continue Aquacel extra, cover with foam dressing. Change twice daily or more depending on drainage. Cole wrap to both extremities for edema management. Leg elevation, optimized protein and nutrition recommended. Continue FU with Vascular, will review records. His questions were answered and he was advised to let us know if he has any further questions or concerns. Follow up in 1 week or sooner if needed. This note was generated with [employer] dictation software. It may contain incorrect words, spelling, and punctuation that were not noted in checking the note before signing.
[2023-05-07 11:55] VITALS: BP 97/47; PULSE 67; RESP 16; TEMP 36.6
--- NOTE | 2023-05-07 13:08 | PN.PCM_ITS ---
History of Present Illness Date of Service: 05/07/23 Chief Complaint: Nonhealing bilateral lower extremity ulcers History of Wound: Mr Wilson is an 82-year-old who was brought in here from his [facility] due to nonhealing bilateral lower extremity ulcers. Has had recurrent ulcerations for over 10 years with most recent episode being more severe late last year. He was seen at the emergency room and subsequently advised to follow-up at a wound center which he did at [facility] without any significant improvement. A month ago, he was hospitalized for sepsis secondary to bilateral lower extremity ulcers. Following his admission and hospital stay, he did not return to the prior wound center. He reports a lot of drainage from his ulcers. They have been inconsistent dressing changes at his facility. He feels well otherwise and denies chills, fever. Currently has a PICC line and he is on IV vancomycin and cephalosporin. Progress of Wound: No new concerns at this time. No significant change in ulcers however, less maceration noted today. Objective Data Objective Data Vital Signs: Vital Signs Temp Pulse Resp BP O2 Del Method 97.8 F 67 16 97/47 L Room Air 05/07/23 11:55 05/07/23 11:55 05/07/23 11:55 05/07/23 11:55 05/07/23 11:55 Oxygen Delivery Method Room Air Charges/Coding Procedures Integumentary 111xxx-113xx: [id number] Samina subq tissue 20 sq cm/< Add On Codes: 25508 Samina subq tissue add-on ( x 4. Additional Sq Cm debrided, please refer to clinical note. ) Physical Exam Const alert and no apparent distress General Appearance: cooperative and comfortable HEENT normocephalic, head/scalp atraumatic and hearing grossly normal bilaterally Head and Scalp: normal to inspection, normocephalic and atraumatic Neck full ROM General: normal visual inspection Resp normal respiratory effort Effort and Inspection: able to speak in complete sentences Extremity General Extremity: deformity Skin Wounds: wounds noted Neuro CN's II-XII intact bilaterally, moves all extremities and no focal motor deficits Psych mental status grossly normal Appearance: grossly normal Attitude: calm Debridement Note Debridement Note Wound debrided: Right Lateral Ankle/Foot Type of Debridement: Excisional debridement Anesthesia Used: 4% Lidocaine Solution Depth: Down to and including healthy tissue and in the subcutaneous layer Percentage of wound debrided: 100 Instrument Used: 5mm curette Tissue Removed: Slough and devitalized tissue Severity: Fat Layer Exposed Amount of bleeding with debridement: Mild Bleeding Controlled with: Pressure Patient tolerated procedure: Patient tolerated procedure well Post-Debridement Measurements and Additional Note: Post-Debridement Measurements/Treatment - Nurse 1 - General Ulcer Assessment Start: 04/30/23 08:44 Freq: Status: Active Protocol: MARTA Activity Type Activity Date Activity User E-sign Co-sign Detail Recorded Client Recorded Date Recorded By Document 04/30/23 10:18 DL Desktop 04/30/23 10:33 DL Document 05/07/23 11:55 BMF Desktop 05/07/23 11:59 BMF 04/30/23 05/07/23 10:18 11:55 WC - Today's Visit Information Type of service Follow-up Visit Follow-up Visit (Physician/BUSINESS IMPROVEMENT MANAGER (Physician/BUSINESS IMPROVEMENT MANAGER ) ) Arrival Mode Wheelchair Wheelchair Transfer Assistance Manual Other Transfer Assist (Other) x2 2 Patient Identification Verified (Name & Yes Yes ) Patient Requires Transmission-Based No No Precautions Vital Signs Temperature (97.8 F-99.1 F) 98.4 F 97.8 F Temperature Source Temporal Temporal Pulse Rate (60-100) 61 67 Pulse Location Monitor Monitor Respiratory Rate (12-18) 18 16 Respiratory rate source Observation Observation Oxygen Delivery Method Room Air Blood Pressure (90/60-120/80) 102/48 L 97/47 L Blood Pressure Mean (mm Hg) 66 63 Source Monitor Monitor Position Sitting Blood Pressure Location Right Arm History Since Last Visit- (Skip if this is Patient's initial visit) Have you changed medications since your No last visit? Any new allergies or adverse reactions No No Had a fall/change in ADL's that may No No increase risk of falls Signs or symptoms of abuse and/or No No neglect since last visit Have you been in the hospital since your No No last visit? Has dressing in place as prescribed Yes Yes Has compression in place as prescribed Yes Yes Has offloadiing in place as prescribed N/A N/A Experienced any changes in pain level or No No management Left Footwear Surgical Shoe Surgical Shoe with pressure with pressure relief insole relief insole Right Footwear Surgical Shoe Surgical Shoe with pressure with pressure relief insole relief insole Pain Scale: 0-10 Numeric Is Patient Pain Free? Yes Yes - Nurse 1 - General Ulcer Measurement Start: 04/30/23 08:44 Freq: Status: Active Protocol: Activity Type Activity Date Activity User E-sign Co-sign Detail Recorded Client Recorded Date Recorded By Document 04/30/23 10:18 DL Desktop 04/30/23 10:33 DL Document 05/07/23 11:55 BMF Desktop 05/07/23 11:59 BMF 04/30/23 05/07/23 10:18 11:55 Wound Center Nurse 1 #6 R DORSAL foot -Combined with other wound No -Current Size (cm) - Length 2.4 0.1 -Current Size (cm) - Width 6 0.1 -Current Size (cm) - Depth 0.2 0.1 -Total Square Cm 14.4 0.01 -Tunneling No -Undermining/Tunneling No -Circular Undermining No -Exudate Amt Large Large -Exudate Type Serosanguineous Serosanguineous -Wound Margin Distinct, Distinct, Outline Outline Attached Attached -Granulation Amt Small (1-33%) Medium (34-66%) -Granulation Quality Coward Coward -Slough/Fibrin Yes -Necrosis Amt Large (67-100%) Large (67-100%) -Necrotic Tissue Type Adherent Slough Adherent Slough -Structure Exposed N/A -Texture (Yuliet-wound Skin Appearance) Localized Edema Assessed, ,Scarring Scarring -Moisture (Yuliet-wound Skin Appearance) Maceration, Assessed, Weeping Maceration, Weeping -Color (Yuliet-wound Skin Appearance) Hemosiderin Assessed Staining -Temperature (Yuliet-wound Skin No Abnormality No Abnormality Appearance) (Pt Warm) (Pt Warm) -Tenderness on Palpation (Yuliet-wound No Skin Appearance) -Ulcer Cleansing Not Cleansed Soap and Water -Foul Odor after Cleansing No No -Anesthetic Used 4% Lidocaine 4% Lidocaine Solution Solution #5 L Med foot -Current Size (cm) - Length 5.5 0.1 -Current Size (cm) - Width 2.3 0.1 -Current Size (cm) - Depth 0.3 0.1 -Total Square Cm 12.65 0.01 -Tunneling No -Undermining/Tunneling No -Circular Undermining No -Exudate Amt Large -Exudate Type Serosanguineous -Wound Margin Distinct, Outline Attached -Granulation Amt Small (1-33%) -Granulation Quality Coward -Necrosis Amt Large (67-100%) -Necrotic Tissue Type Adherent Slough -Structure Exposed N/A -Texture (Yuliet-wound Skin Appearance) Scarring Assessed, Scarring -Moisture (Yuliet-wound Skin Appearance) Maceration, Assessed, Weeping Maceration,Dry/ Scaly -Color (Yuliet-wound Skin Appearance) Hemosiderin Assessed Staining -Temperature (Yuliet-wound Skin No Abnormality No Abnormality Appearance) (Pt Warm) (Pt Warm) -Tenderness on Palpation (Yuliet-wound No No Skin Appearance) -Ulcer Cleansing Soap and Water Soap and Water -Foul Odor after Cleansing No No -Anesthetic Used 4% Lidocaine 4% Lidocaine Solution Solution #3 R Med Foot -Combined with other wound No -Current Size (cm) - Length 14 -Current Size (cm) - Width 2 -Current Size (cm) - Depth 0.3 -Total Square Cm 28 -Tunneling No -Undermining/Tunneling No -Circular Undermining No -Exudate Amt Large Large -Exudate Type Serosanguineous Serosanguineous -Wound Margin Distinct, Distinct, Outline Outline Attached Attached -Granulation Amt Small (1-33%) Medium (34-66%) -Granulation Quality Coward Coward -Slough/Fibrin Yes -Necrosis Amt Large (67-100%) Large (67-100%) -Necrotic Tissue Type Adherent Slough Adherent Slough -Structure Exposed N/A -Texture (Yuliet-wound Skin Appearance) Scarring Assessed, Scarring -Moisture (Yuliet-wound Skin Appearance) Maceration, Assessed, Weeping Maceration,Dry/ Scaly -Color (Yuliet-wound Skin Appearance) Hemosiderin Assessed Staining -Temperature (Yuliet-wound Skin No Abnormality No Abnormality Appearance) (Pt Warm) (Pt Warm) -Tenderness on Palpation (Yuliet-wound No No Skin Appearance) -Ulcer Cleansing Not Cleansed Soap and Water -Foul Odor after Cleansing Yes, Due to No Product Use -Anesthetic Used 4% Lidocaine 4% Lidocaine Solution Solution #2 R Lat foot -Combined with other wound No -Current Size (cm) - Length 15 -Current Size (cm) - Width 3 -Current Size (cm) - Depth 0.3 -Total Square Cm 45 -Photo Taken No -Epithelialization None Present -Tunneling No -Undermining/Tunneling No -Circular Undermining No -Exudate Amt Large Large -Exudate Type Serosanguineous Serosanguineous -Wound Margin Distinct, Distinct, Outline Outline Attached Attached -Granulation Amt Small (1-33%) Small (1-33%) -Granulation Quality Coward Coward -Slough/Fibrin Yes -Necrosis Amt Large (67-100%) Large (67-100%) -Necrotic Tissue Type Adherent Slough Adherent Slough -Structure Exposed N/A -Texture (Yuliet-wound Skin Appearance) Scarring Assessed, Scarring -Moisture (Yuliet-wound Skin Appearance) Maceration, Assessed, Weeping Maceration,Dry/ Scaly -Color (Yuliet-wound Skin Appearance) Hemosiderin Assessed Staining -Temperature (Yuliet-wound Skin No Abnormality No Abnormality Appearance) (Pt Warm) (Pt Warm) -Tenderness on Palpation (Yuliet-wound No No Skin Appearance) -Ulcer Cleansing Soap and Water Soap and Water -Foul Odor after Cleansing No No -Anesthetic Used 4% Lidocaine 4% Lidocaine Solution Solution Right Calf (cm) 34 Right Ankle (cm) 23.5 Left Calf (cm) 33.5 Left Ankle (cm) 22.5 WC - Nurse 2 - General Ulcer CM Notes Start: 04/30/23 08:44 Freq: Status: Active Protocol: Activity Type Activity Date Activity User E-sign Co-sign Detail Recorded Client Recorded Date Recorded By Document 04/30/23 10:49 Desktop 04/30/23 11:05 Document 05/07/23 12:04 Desktop 05/07/23 12:23 04/30/23 05/07/23 10:49 12:04 Wound Center Nurse 2 #6 R DORSAL foot -Time 10:49 12:04 -Correct Patient Yes Yes -Correct Side, Site, Position Yes Yes -Correct Procedure Yes Yes -Procedure Performed Yes Yes -Type of Procedure Debridement Debridement -Clinical Debridement Subcutaneous Subcutaneous -Tissue Removed Subcutaneous Subcutaneous -Post Debridement (cm) - Length 2.5 2.0 -Post Debridement (cm) - Width 6.0 6.3 -Post Debridement (cm) - Depth 0.2 0.3 -Total Square (Post) (cm) 15.00 12.60 -Area of Debridement (cm) - Length 2.5 2.0 -Area of Debridement (cm) - Width 6.0 6.3 -Total Square (Area) (cm) 15.00 12.60 -Tunneling No No -Undermining/Tunneling No No -Circular Undermining No No -Wound/Ulcer Outcome Not Healed Not Healed -Ulcer Cleansing Rinsed/ Rinsed/ Irrigated with Irrigated with Saline Saline -Foul Odor after Cleansing No No -Bioengineered Tissue No No -Bleeding Controlled with Pressure Pressure -Treatment Response Procedure Procedure Tolerated Well Tolerated Well -Debridement - Subq, 1st 20sq cm No No #5 L Med foot -Time 10:51 12:04 -Correct Patient Yes Yes -Correct Side, Site, Position Yes Yes -Correct Procedure Yes Yes -Procedure Performed Yes Yes -Type of Procedure Debridement Debridement -Clinical Debridement Subcutaneous Subcutaneous -Tissue Removed Subcutaneous Subcutaneous -Post Debridement (cm) - Length 2.0 2.0 -Post Debridement (cm) - Width 1.5 2.0 -Post Debridement (cm) - Depth 0.2 0.2 -Total Square (Post) (cm) 3.00 4.00 -Area of Debridement (cm) - Length 2.0 2.0 -Area of Debridement (cm) - Width 1.5 2.0 -Total Square (Area) (cm) 3.00 4.00 -Tunneling No No -Undermining/Tunneling No No -Circular Undermining No No -Wound/Ulcer Outcome Not Healed Not Healed -Ulcer Cleansing Rinsed/ Rinsed/ Irrigated with Irrigated with Saline Saline -Foul Odor after Cleansing No No -Bioengineered Tissue No No -Bleeding Controlled with Pressure Pressure -Treatment Response Procedure Procedure Tolerated Well Tolerated Well -Offloading No -Assistive Device(s) Wheelchair -Debridement - Subq, 1st 20sq cm No Yes -Debridement, SubQ, ea addt'l 20sq cm 4 or part thereof #3 R Med Foot -Time 10:51 12:05 -Correct Patient Yes Yes -Correct Side, Site, Position Yes Yes -Correct Procedure Yes Yes -Procedure Performed Yes Yes -Type of Procedure Debridement Debridement -Clinical Debridement Subcutaneous Subcutaneous -Tissue Removed Subcutaneous Subcutaneous -Post Debridement (cm) - Length 2.5 3.0 -Post Debridement (cm) - Width 11.0 10.5 -Post Debridement (cm) - Depth 0.2 0.3 -Total Square (Post) (cm) 27.50 31.50 -Area of Debridement (cm) - Length 2.5 3.0 -Area of Debridement (cm) - Width 11.0 10.5 -Total Square (Area) (cm) 27.50 31.50 -Tunneling No No -Undermining/Tunneling No No -Circular Undermining No No -Wound/Ulcer Outcome Not Healed Not Healed -Ulcer Cleansing Rinsed/ Rinsed/ Irrigated with Irrigated with Saline Saline -Foul Odor after Cleansing No No -Bioengineered Tissue No No -Bleeding Controlled with Pressure Pressure -Treatment Response Procedure Procedure Tolerated Well Tolerated Well -Debridement - Subq, 1st 20sq cm Yes No -Debridement, SubQ, ea addt'l 20sq cm 3 or part thereof #2 R Lat foot -Time 10:52 12:06 -Correct Patient Yes Yes -Correct Side, Site, Position Yes Yes -Correct Procedure Yes Yes -Procedure Performed Yes Yes -Type of Procedure Debridement Debridement -Clinical Debridement Subcutaneous Subcutaneous -Tissue Removed Subcutaneous Subcutaneous -Post Debridement (cm) - Length 2.5 11.0 -Post Debridement (cm) - Width 8.3 3.1 -Post Debridement (cm) - Depth 0.2 0.3 -Total Square (Post) (cm) 20.75 34.10 -Area of Debridement (cm) - Length 2.5 11.0 -Area of Debridement (cm) - Width 8.3 3.1 -Total Square (Area) (cm) 20.75 34.10 -Tunneling No No -Undermining/Tunneling No No -Circular Undermining No No -Wound/Ulcer Outcome Not Healed Not Healed -Ulcer Cleansing Rinsed/ Rinsed/ Irrigated with Irrigated with Saline Saline -Foul Odor after Cleansing No No -Bioengineered Tissue No No -Bleeding Controlled with Pressure Pressure -Treatment Response Procedure Procedure Tolerated Well Tolerated Well -Debridement - Subq, 1st 20sq cm No No Pain Scale: 0-10 Numeric Is Patient Pain Free? Yes Yes Additional Wound Wound debrided: Left medial ankle/lower extremity Type of Debridement: Excisional debridement Anesthesia Used: 4% Lidocaine Solution Depth: Down to and including healthy tissue and in the subcutaneous layer Percentage of wound debrided: 100 Instrument Used: 5mm curette Tissue Removed: Slough and devitalized tissue Severity: Fat Layer Exposed Amount of bleeding with debridement: Mild Bleeding Controlled with: Pressure Patient tolerated procedure: Patient tolerated procedure well Additional Wound Wound debrided: Right medial ankle/lower extremity Type of Debridement: Excisional debridement Anesthesia Used: 4% Lidocaine Solution Depth: Down to and including healthy tissue and in the subcutaneous layer Percentage of wound debrided: 100 Instrument Used: 5mm curette Tissue Removed: Slough and devitalized tissue Severity: Fat Layer Exposed Amount of bleeding with debridement: Mild Bleeding Controlled with: Pressure Patient tolerated procedure: Patient tolerated procedure well Additional Wound Wound debrided: Right Dorsal Foot Type of Debridement: Excisional debridement Anesthesia Used: 4% Lidocaine Solution Depth: Down to and including healthy tissue and in the subcutaneous layer Percentage of wound debrided: 100 Instrument Used: 5mm curette Tissue Removed: Slough and devitalized tissue Severity: Fat Layer Exposed Amount of bleeding with debridement: Mild Bleeding Controlled with: Pressure Patient tolerated procedure: Patient tolerated procedure well Additional Wound Tissue Removed: Slough and devitalized tissue Assessment/Plan Assessment/Plan (1) Ulcer of right lower extremity with fat layer exposed: CODE(S): L97.912 - Non-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 (2) Ulcer of left lower extremity with fat layer exposed: CODE(S): L97.922 - Non-pressure chronic ulcer of unspecified part of left lower leg with fat layer exposed (3) Ulcer of right heel and midfoot with fat layer exposed: CODE(S): L97.412 - Non-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 Stable. No new concerns at this time. Slightly less maceration. Continue Aquacel extra, cover with foam dressing to all right lower extremity ulcers. Switch to Promogran and adaptic to left medial ankle ulcer. Change twice daily or more depending on drainage. Cole wraps to both extremities for edema management. Leg elevation, optimized protein and nutrition recommended. Continue FU with Vascular, will review records. His questions were answered and he was advised to let us know if he has any further questions or concerns. Follow up in 1 week or sooner if needed. This note was generated with [employer] software. It may contain incorrect words, spelling, and punctuation that were not noted in checking the note before signing.
[2023-05-14 11:38] VITALS: BP 82/38; PULSE 65; RESP 20; TEMP 36.6
--- NOTE | 2023-05-14 12:12 | PCM.WC.PN ---
History of Present Illness Date of Service: 05/14/23 Chief Complaint: Nonhealing bilateral lower extremity ulcers History of Wound: Mr Wilson is an 82-year-old who was brought in here from his senior living due to nonhealing bilateral lower extremity ulcers. Has had recurrent ulcerations for over 10 years with most recent episode being more severe late last year. He was seen at the emergency room and subsequently advised to follow-up at a wound center which he did at [facility] without any significant improvement. A month ago, he was hospitalized for sepsis secondary to bilateral lower extremity ulcers. Following his admission and hospital stay, he did not return to the prior wound center. He reports a lot of drainage from his ulcers. They have been inconsistent dressing changes at his facility. He feels well otherwise and denies chills, fever. Currently has a PICC line and he is on IV vancomycin and cephalosporin. Progress of Wound: No new concerns at this time. Scheduled for follow-up with vascular surgery on the 03 of June. Objective Data Objective Data Vital Signs: Vital Signs Temp Pulse Resp BP O2 Del Method 98 F 65 20 H 82/38 L Room Air 05/14/23 11:38 05/14/23 11:38 05/14/23 11:38 05/14/23 11:38 05/07/23 11:55 Oxygen Delivery Method Room Air Charges/Coding Procedures Integumentary [id number]: 90609 Samina subq tissue 20 sq cm/< Add On Codes: 28604 Samina subq tissue add-on (x3 additional square centimeter debrided, please refer to clinical note.) Physical Exam Const alert and no apparent distress General Appearance: cooperative and comfortable HEENT normocephalic, head/scalp atraumatic and hearing grossly normal bilaterally Head and Scalp: normal to inspection, normocephalic and atraumatic Neck full ROM General: normal visual inspection Resp normal respiratory effort Effort and Inspection: able to speak in complete sentences Extremity General Extremity: deformity Skin Wounds: wounds noted Neuro CN's II-XII intact bilaterally, moves all extremities and no focal motor deficits Psych mental status grossly normal Appearance: grossly normal Attitude: calm Debridement Note Debridement Note Wound debrided: Right Lateral Ankle/Foot Type of Debridement: Excisional debridement Anesthesia Used: 4% Lidocaine Solution Depth: Down to and including healthy tissue and in the subcutaneous layer Percentage of wound debrided: 100 Instrument Used: 5mm curette Tissue Removed: Slough and devitalized tissue Severity: Fat Layer Exposed Amount of bleeding with debridement: Mild Bleeding Controlled with: Pressure Patient tolerated procedure: Patient tolerated procedure well Post-Debridement Measurements and Additional Note: Post-Debridement Measurements/Treatment - Nurse 1 - General Ulcer Assessment Start: 04/30/23 08:44 Freq: Status: Active Protocol: [email or web address] Activity Type Activity Date Activity User E-sign Co-sign Detail Recorded Client Recorded Date Recorded By Document 04/30/23 10:18 DL Desktop 04/30/23 10:33 DL Document 05/07/23 11:55 BMF Desktop 05/07/23 11:59 BMF Document 05/14/23 11:38 DL Desktop 05/14/23 11:47 DL 04/30/23 05/07/23 05/14/23 10:18 11:55 11:38 - Today's Visit Information Type of service Follow-up Visit Follow-up Visit Follow-up Visit (Physician/BEAD FORMING MACHINE SET UP OPERATOR (Physician/BEAD FORMING MACHINE SET UP OPERATOR (Physician/BEAD FORMING MACHINE SET UP OPERATOR ) ) ) Arrival Mode Wheelchair Wheelchair Wheelchair Transfer Assistance Manual Other Manual Transfer Assist (Other) x2 2 x2 Patient Identification Verified (Name & Yes Yes Yes ) Patient Requires Transmission-Based No No No Precautions Vital Signs Temperature (97.8 F-99.1 F) 98.4 F 97.8 F 98 F Temperature Source Temporal Temporal Temporal Pulse Rate (60-100) 61 67 65 Pulse Location Monitor Monitor Monitor Respiratory Rate (12-18) 18 16 20 H Respiratory rate source Observation Observation Observation Oxygen Delivery Method Room Air Blood Pressure (90/60-120/80) 102/48 L 97/47 L 82/38 L Blood Pressure Mean (mm Hg) 66 63 52 Source Monitor Monitor Monitor Position Sitting Blood Pressure Location Right Arm History Since Last Visit- (Skip if this is Patient's initial visit) Have you changed medications since your No No last visit? Any new allergies or adverse reactions No No No Had a fall/change in ADL's that may No No No increase risk of falls Signs or symptoms of abuse and/or No No No neglect since last visit Have you been in the hospital since your No No No last visit? Has dressing in place as prescribed Yes Yes Yes Has compression in place as prescribed Yes Yes Yes Has offloadiing in place as prescribed N/A N/A Yes Experienced any changes in pain level or No No No management Left Footwear Surgical Shoe Surgical Shoe with pressure with pressure relief insole relief insole Right Footwear Surgical Shoe Surgical Shoe with pressure with pressure relief insole relief insole Pain Scale: 0-10 Numeric Is Patient Pain Free? Yes Yes Yes WC - Nurse 1 - General Ulcer Measurement Start: 04/30/23 08:44 Freq: Status: Active Protocol: Activity Type Activity Date Activity User E-sign Co-sign Detail Recorded Client Recorded Date Recorded By Document 04/30/23 10:18 DL Desktop 04/30/23 10:33 DL Document 05/07/23 11:55 BMF Desktop 05/07/23 11:59 BMF Document 05/14/23 11:38 DL Desktop 05/14/23 11:47 DL 04/30/23 05/07/23 05/14/23 10:18 11:55 11:38 Wound Center Nurse 1 #6 R DORSAL foot -Combined with other wound No -Current Size (cm) - Length 2.4 0.1 0.1 -Current Size (cm) - Width 6 0.1 0.1 -Current Size (cm) - Depth 0.2 0.1 0.1 -Total Square Cm 14.4 0.01 0.01 -Tunneling No -Undermining/Tunneling No -Circular Undermining No -Exudate Amt Large Large Large -Exudate Type Serosanguineous Serosanguineous Serosanguineous -Wound Margin Distinct, Distinct, Distinct, Outline Outline Outline Attached Attached Attached -Granulation Amt Small (1-33%) Medium (34-66%) Medium (34-66%) -Granulation Quality [place] Red -Slough/Fibrin Yes Yes -Necrosis Amt Large (67-100%) Large (67-100%) Medium (34-66%) -Necrotic Tissue Type Adherent Slough Adherent Slough Adherent Slough -Structure Exposed N/A -Texture (Yuliet-wound Skin Appearance) Localized Edema Assessed, Assessed, ,Scarring Scarring Scarring -Moisture (Yuliet-wound Skin Appearance) Maceration, Assessed, Assessed, Weeping Maceration, Maceration Weeping -Color (Yuliet-wound Skin Appearance) Hemosiderin Assessed Assessed, Staining Erythema -Temperature (Yuliet-wound Skin No Abnormality No Abnormality No Abnormality Appearance) (Pt Warm) (Pt Warm) (Pt Warm) -Tenderness on Palpation (Yuliet-wound No No Skin Appearance) -Ulcer Cleansing Not Cleansed Soap and Water Soap and Water -Foul Odor after Cleansing No No No -Anesthetic Used 4% Lidocaine 4% Lidocaine 4% Lidocaine Solution Solution Solution #5 L Med foot -Current Size (cm) - Length 5.5 0.1 0.1 -Current Size (cm) - Width 2.3 0.1 0.1 -Current Size (cm) - Depth 0.3 0.1 0.1 -Total Square Cm 12.65 0.01 0.01 -Photo Taken No -Tunneling No No -Undermining/Tunneling No No -Circular Undermining No No -Exudate Amt Large Medium -Exudate Type Serosanguineous Serosanguineous -Wound Margin Distinct, Distinct, Outline Outline Attached Attached -Granulation Amt Small (1-33%) Small (1-33%) -Granulation Quality [place] -Slough/Fibrin Yes -Necrosis Amt Large (67-100%) Large (67-100%) -Necrotic Tissue Type Adherent Slough Adherent Slough -Structure Exposed N/A -Texture (Yuliet-wound Skin Appearance) Scarring Assessed, Assessed, Scarring Scarring -Moisture (Yuliet-wound Skin Appearance) Maceration, Assessed, Assessed,Dry/ Weeping Maceration,Dry/ Scaly Scaly -Color (Yuliet-wound Skin Appearance) Hemosiderin Assessed Assessed Staining -Temperature (Yuliet-wound Skin No Abnormality No Abnormality No Abnormality Appearance) (Pt Warm) (Pt Warm) (Pt Warm) -Tenderness on Palpation (Yuliet-wound No No No Skin Appearance) -Ulcer Cleansing Soap and Water Soap and Water Soap and Water -Foul Odor after Cleansing No No No -Anesthetic Used 4% Lidocaine 4% Lidocaine 4% Lidocaine Solution Solution Solution #3 R Med Foot -Combined with other wound No No -Current Size (cm) - Length 14 0.1 -Current Size (cm) - Width 2 0.1 -Current Size (cm) - Depth 0.3 0.1 -Total Square Cm 28 0.01 -Tunneling No No -Undermining/Tunneling No No -Circular Undermining No No -Exudate Amt Large Large Large -Exudate Type Serosanguineous Serosanguineous Serosanguineous -Wound Margin Distinct, Distinct, Distinct, Outline Outline Outline Attached Attached Attached -Granulation Amt Small (1-33%) Medium (34-66%) Medium (34-66%) -Granulation Quality Oat[place] Oatfield Oatfield -Slough/Fibrin Yes Yes -Necrosis Amt Large (67-100%) Large (67-100%) Medium (34-66%) -Necrotic Tissue Type Adherent Slough Adherent Slough Adherent Slough -Structure Exposed N/A -Texture (Yuliet-wound Skin Appearance) Scarring Assessed, Assessed, Scarring Scarring -Moisture (Yuliet-wound Skin Appearance) Maceration, Assessed, Assessed, Weeping Maceration,Dry/ Maceration Scaly -Color (Yuliet-wound Skin Appearance) Hemosiderin Assessed Assessed, Staining Erythema -Temperature (Yuliet-wound Skin No Abnormality No Abnormality No Abnormality Appearance) (Pt Warm) (Pt Warm) (Pt Warm) -Tenderness on Palpation (Yuliet-wound No No No Skin Appearance) -Ulcer Cleansing Not Cleansed Soap and Water Soap and Water -Foul Odor after Cleansing Yes, Due to No No Product Use -Anesthetic Used 4% Lidocaine 4% Lidocaine 4% Lidocaine Solution Solution Solution #2 R Lat foot -Combined with other wound No No -Current Size (cm) - Length 15 0.1 -Current Size (cm) - Width 3 0.1 -Current Size (cm) - Depth 0.3 0.1 -Total Square Cm 45 0.01 -Photo Taken No No -Epithelialization None Present -Tunneling No No -Undermining/Tunneling No No -Circular Undermining No No -Exudate Amt Large Large Large -Exudate Type Serosanguineous Serosanguineous Serosanguineous -Wound Margin Distinct, Distinct, Distinct, Outline Outline Outline Attached Attached Attached -Granulation Amt Small (1-33%) Small (1-33%) Medium (34-66%) -Granulation Quality Oatfield Oatfield Oatfield -Slough/Fibrin Yes Yes -Necrosis Amt Large (67-100%) Large (67-100%) Large (67-100%) -Necrotic Tissue Type Adherent Slough Adherent Slough Adherent Slough -Structure Exposed N/A -Texture (Yuliet-wound Skin Appearance) Scarring Assessed, Assessed, Scarring Scarring -Moisture (Yuliet-wound Skin Appearance) Maceration, Assessed, Assessed, Weeping Maceration,Dry/ Maceration,Dry/ Scaly Scaly -Color (Yuliet-wound Skin Appearance) Hemosiderin Assessed Assessed, Staining Erythema -Temperature (Yuliet-wound Skin No Abnormality No Abnormality No Abnormality Appearance) (Pt Warm) (Pt Warm) (Pt Warm) -Tenderness on Palpation (Yuliet-wound No No No Skin Appearance) -Ulcer Cleansing Soap and Water Soap and Water Soap and Water -Foul Odor after Cleansing No No No -Anesthetic Used 4% Lidocaine 4% Lidocaine 4% Lidocaine Solution Solution Solution Right Calf (cm) 34 Right Ankle (cm) 23.5 Left Calf (cm) 33.5 Left Ankle (cm) 22.5 WC - Nurse 2 - General Ulcer CM Notes Start: 04/30/23 08:44 Freq: Status: Active Protocol: Activity Type Activity Date Activity User E-sign Co-sign Detail Recorded Client Recorded Date Recorded By Document 04/30/23 10:49 [employer] 04/30/23 11:05 GM Document 05/07/23 12:04 [employer] Desktop 05/07/23 12:23 GM Document 05/14/23 11:55 [employer] Desktop 05/14/23 12:10 04/30/23 05/07/23 05/14/23 10:49 12:04 11:55 Wound Center Nurse 2 #6 R DORSAL foot -Time 10:49 12:04 11:55 -Correct Patient Yes Yes Yes -Correct Side, Site, Position Yes Yes Yes -Correct Procedure Yes Yes Yes -Procedure Performed Yes Yes Yes -Type of Procedure Debridement Debridement Debridement -Clinical Debridement Subcutaneous Subcutaneous Subcutaneous -Tissue Removed Subcutaneous Subcutaneous Subcutaneous -Post Debridement (cm) - Length 2.5 2.0 2.0 -Post Debridement (cm) - Width 6.0 6.3 6.0 -Post Debridement (cm) - Depth 0.2 0.3 0.3 -Total Square (Post) (cm) 15.00 12.60 12.00 -Area of Debridement (cm) - Length 2.5 2.0 2.0 -Area of Debridement (cm) - Width 6.0 6.3 3.0 -Total Square (Area) (cm) 15.00 12.60 6.00 -Tunneling No No -Undermining/Tunneling No No No -Circular Undermining No No No -Wound/Ulcer Outcome Not Healed Not Healed Not Healed -Ulcer Cleansing Rinsed/ Rinsed/ Not Cleansed Irrigated with Irrigated with Saline Saline -Foul Odor after Cleansing No No No -Bioengineered Tissue No No No -Bleeding Controlled with Pressure Pressure Pressure -Treatment Response Procedure Procedure Procedure Tolerated Well Tolerated Well Tolerated Well -Debridement - Subq, 1st 20sq cm No No No #5 L Med foot -Time 10:51 12:04 11:55 -Correct Patient Yes Yes Yes -Correct Side, Site, Position Yes Yes Yes -Correct Procedure Yes Yes Yes -Procedure Performed Yes Yes Yes -Type of Procedure Debridement Debridement Debridement -Clinical Debridement Subcutaneous Subcutaneous Subcutaneous -Tissue Removed Subcutaneous Subcutaneous Subcutaneous -Post Debridement (cm) - Length 2.0 2.0 2.0 -Post Debridement (cm) - Width 1.5 2.0 2.0 -Post Debridement (cm) - Depth 0.2 0.2 0.2 -Total Square (Post) (cm) 3.00 4.00 4.00 -Area of Debridement (cm) - Length 2.0 2.0 2.0 -Area of Debridement (cm) - Width 1.5 2.0 2.0 -Total Square (Area) (cm) 3.00 4.00 4.00 -Tunneling No No No -Undermining/Tunneling No No No -Circular Undermining No No No -Wound/Ulcer Outcome Not Healed Not Healed Not Healed -Ulcer Cleansing Rinsed/ Rinsed/ Rinsed/ Irrigated with Irrigated with Irrigated with Saline Saline Saline -Foul Odor after Cleansing No No No -Bioengineered Tissue No No No -Bleeding Controlled with Pressure Pressure Pressure -Treatment Response Procedure Procedure Procedure Tolerated Well Tolerated Well Tolerated Well -Offloading No -Assistive Device(s) Wheelchair -Debridement - Subq, 1st 20sq cm No Yes No -Debridement, SubQ, ea addt'l 20sq cm 4 or part thereof #3 R Med Foot -Time 10:51 12:05 11:56 -Correct Patient Yes Yes Yes -Correct Side, Site, Position Yes Yes Yes -Correct Procedure Yes Yes Yes -Procedure Performed Yes Yes Yes -Type of Procedure Debridement Debridement Debridement -Clinical Debridement Subcutaneous Subcutaneous Subcutaneous -Tissue Removed Subcutaneous Subcutaneous Subcutaneous -Post Debridement (cm) - Length 2.5 3.0 12.0 -Post Debridement (cm) - Width 11.0 10.5 3.0 -Post Debridement (cm) - Depth 0.2 0.3 0.4 -Total Square (Post) (cm) 27.50 31.50 36.00 -Area of Debridement (cm) - Length 2.5 3.0 12.0 -Area of Debridement (cm) - Width 11.0 10.5 3.0 -Total Square (Area) (cm) 27.50 31.50 36.00 -Tunneling No No No -Undermining/Tunneling No No No -Circular Undermining No No No -Wound/Ulcer Outcome Not Healed Not Healed Not Healed -Ulcer Cleansing Rinsed/ Rinsed/ Rinsed/ Irrigated with Irrigated with Irrigated with Saline Saline Saline -Foul Odor after Cleansing No No No -Bioengineered Tissue No No No -Bleeding Controlled with Pressure Pressure Pressure -Treatment Response Procedure Procedure Procedure Tolerated Well Tolerated Well Tolerated Well -Debridement - Subq, 1st 20sq cm Yes No Yes -Debridement, SubQ, ea addt'l 20sq cm 3 3 or part thereof #2 R Lat foot -Time 10:52 12:06 11:56 -Correct Patient Yes Yes Yes -Correct Side, Site, Position Yes Yes Yes -Correct Procedure Yes Yes Yes -Procedure Performed Yes Yes Yes -Type of Procedure Debridement Debridement Debridement -Clinical Debridement Subcutaneous Subcutaneous Subcutaneous -Tissue Removed Subcutaneous Subcutaneous Subcutaneous -Post Debridement (cm) - Length 2.5 11.0 2.6 -Post Debridement (cm) - Width 8.3 3.1 10.5 -Post Debridement (cm) - Depth 0.2 0.3 0.3 -Total Square (Post) (cm) 20.75 34.10 27.30 -Area of Debridement (cm) - Length 2.5 11.0 2.6 -Area of Debridement (cm) - Width 8.3 3.1 10.5 -Total Square (Area) (cm) 20.75 34.10 27.30 -Tunneling No No No -Undermining/Tunneling No No No -Circular Undermining No No No -Wound/Ulcer Outcome Not Healed Not Healed Not Healed -Ulcer Cleansing Rinsed/ Rinsed/ Rinsed/ Irrigated with Irrigated with Irrigated with Saline Saline Saline -Foul Odor after Cleansing No No No -Bioengineered Tissue No No No -Bleeding Controlled with Pressure Pressure Pressure -Treatment Response Procedure Procedure Procedure Tolerated Well Tolerated Well Tolerated Well -Debridement - Subq, 1st 20sq cm No No No Pain Scale: 0-10 Numeric Is Patient Pain Free? Yes Yes Yes Additional Wound Wound debrided: Left medial ankle/lower extremity Type of Debridement: Excisional debridement Anesthesia Used: 4% Lidocaine Solution Depth: Down to and including healthy tissue and in the subcutaneous layer Percentage of wound debrided: 100 Instrument Used: 5mm curette Tissue Removed: Slough and devitalized tissue Severity: Fat Layer Exposed Amount of bleeding with debridement: Mild Bleeding Controlled with: Pressure Patient tolerated procedure: Patient tolerated procedure well Additional Wound Wound debrided: Right medial ankle/lower extremity Type of Debridement: Excisional debridement Anesthesia Used: 4% Lidocaine Solution Depth: Down to and including healthy tissue and in the subcutaneous layer Percentage of wound debrided: 100 Instrument Used: 5mm curette Tissue Removed: Slough and devitalized tissue Severity: Fat Layer Exposed Amount of bleeding with debridement: Mild Bleeding Controlled with: Pressure Patient tolerated procedure: Patient tolerated procedure well Additional Wound Wound debrided: Right Dorsal Foot Type of Debridement: Excisional debridement Anesthesia Used: 4% Lidocaine Solution Depth: Down to and including healthy tissue and in the subcutaneous layer Percentage of wound debrided: 100 Instrument Used: 5mm curette Tissue Removed: Slough and devitalized tissue Severity: Fat Layer Exposed Amount of bleeding with debridement: Mild Bleeding Controlled with: Pressure Patient tolerated procedure: Patient tolerated procedure well Additional Wound Tissue Removed: Slough and devitalized tissue Assessment/Plan Assessment/Plan (1) Ulcer of right lower extremity with fat layer exposed: CODE(S): L97.912 - Non-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 (2) Ulcer of left lower extremity with fat layer exposed: CODE(S): L97.922 - Non-pressure chronic ulcer of unspecified part of left lower leg with fat layer exposed (3) Ulcer of right heel and midfoot with fat layer exposed: CODE(S): L97.412 - Non-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 Mild improvement noted. Less maceration also appreciated today. Continue Aquacel extra, cover with foam dressing to all right lower extremity ulcers. Continue Promogran and adaptic to left medial ankle ulcer. Change twice daily or more depending on drainage. Cole wraps to both extremities for edema management. Leg elevation, optimized protein and nutrition recommended. Continue FU with Vascular, will review records. His questions were answered and he was advised to let us know if he has any further questions or concerns. Follow up in 2 weeks or sooner if needed. This note was generated with [employer] dictation software. It may contain incorrect words, spelling, and punctuation that were not noted in checking the note before signing.
[2023-05-28 11:41] VITALS: BP 112/59; PULSE 71; RESP 16; TEMP 36.7
--- NOTE | 2023-05-28 12:42 | PN.PCM_ITS ---
History of Present Illness Date of Service: 05/28/23 Chief Complaint: Nonhealing bilateral lower extremity ulcers History of Wound: Mr Wilson is an 82-year-old who was brought in here from his halfway due to nonhealing bilateral lower extremity ulcers. Has had recurrent ulcerations for over 10 years with most recent episode being more severe late last year. He was seen at the emergency room and subsequently advised to follow-up at a wound center which he did at [facility] without any significant improvement. A month ago, he was hospitalized for sepsis secondary to bilateral lower extremity ulcers. Following his admission and hospital stay, he did not return to the prior wound center. He reports a lot of drainage from his ulcers. They have been inconsistent dressing changes at his facility. He feels well otherwise and denies chills, fever. Currently has a PICC line and he is on IV vancomycin and cephalosporin. Progress of Wound: No new concerns at this time. Some improvement noted. Less maceration. Scheduled for follow-up with vascular surgery on the 03 of June. Objective Data Objective Data Vital Signs: Vital Signs Temp Pulse Resp BP O2 Del Method 98.1 F 71 16 112/59 L Room Air 05/28/23 11:41 05/28/23 11:41 05/28/23 11:41 05/28/23 11:41 05/07/23 11:55 Oxygen Delivery Method Room Air Charges/Coding Procedures Integumentary [id number]: [id number] Samina subq tissue 20 sq cm/< Add On Codes: 78673 Samina subq tissue add-on (x3 additional square centimeter debrided, please refer to clinical note.) Physical Exam Const alert and no apparent distress General Appearance: cooperative and comfortable HEENT normocephalic, head/scalp atraumatic and hearing grossly normal bilaterally Head and Scalp: normal to inspection, normocephalic and atraumatic Neck full ROM General: normal visual inspection Resp normal respiratory effort Effort and Inspection: able to speak in complete sentences Extremity General Extremity: deformity Skin Wounds: wounds noted Neuro CN's II-XII intact bilaterally, moves all extremities and no focal motor deficits Psych mental status grossly normal Appearance: grossly normal Attitude: calm Debridement Note Debridement Note Wound debrided: Right Lateral Ankle/Foot Type of Debridement: Excisional debridement Anesthesia Used: 4% Lidocaine Solution Depth: Down to and including healthy tissue and in the subcutaneous layer Percentage of wound debrided: 100 Instrument Used: 5mm curette Tissue Removed: Slough and devitalized tissue Severity: Fat Layer Exposed Amount of bleeding with debridement: Mild Bleeding Controlled with: Pressure Patient tolerated procedure: Patient tolerated procedure well Post-Debridement Measurements and Additional Note: Post-Debridement Measurements/Treatment WC - Nurse 1 - General Ulcer Assessment Start: 04/30/23 08:44 Freq: Status: Active Protocol: MARTA Activity Type Activity Date Activity User E-sign Co-sign Detail Recorded Client Recorded Date Recorded By Document 04/30/23 10:18 DL Desktop 04/30/23 10:33 DL Document 05/07/23 11:55 BMF Desktop 05/07/23 11:59 BMF Document 05/14/23 11:38 DL Desktop 05/14/23 11:47 DL Document 05/28/23 11:41 JF Laptop 05/28/23 11:42 JF 04/30/23 05/07/23 05/14/23 10:18 11:55 11:38 - Today's Visit Information Type of service Follow-up Visit Follow-up Visit Follow-up Visit (Physician/MULLING MACHINE OPERATOR (Physician/MULLING MACHINE OPERATOR (Physician/MULLING MACHINE OPERATOR ) ) ) Arrival Mode Wheelchair Wheelchair Wheelchair Transfer Assistance Manual Other Manual Transfer Assist (Other) x2 2 x2 Accompanied by Patient Identification Verified (Name & Yes Yes Yes ) Patient Requires Transmission-Based No No No Precautions Vital Signs Temperature (97.8 F-99.1 F) 98.4 F 97.8 F 98 F Temperature Source Temporal Temporal Temporal Pulse Rate (60-100) 61 67 65 Pulse Location Monitor Monitor Monitor Respiratory Rate (12-18) 18 16 20 H Respiratory rate source Observation Observation Observation Oxygen Delivery Method Room Air Blood Pressure (90/60-120/80) 102/48 L 97/47 L 82/38 L Blood Pressure Mean (mm Hg) 66 63 52 Source Monitor Monitor Monitor Position Sitting Blood Pressure Location Right Arm History Since Last Visit- (Skip if this is Patient's initial visit) Have you changed medications since your No No last visit? Any new allergies or adverse reactions No No No Had a fall/change in ADL's that may No No No increase risk of falls Signs or symptoms of abuse and/or No No No neglect since last visit Have you been in the hospital since your No No No last visit? Has dressing in place as prescribed Yes Yes Yes Has compression in place as prescribed Yes Yes Yes Has offloadiing in place as prescribed N/A N/A Yes Experienced any changes in pain level or No No No management Left Footwear Surgical Shoe Surgical Shoe with pressure with pressure relief insole relief insole Right Footwear Surgical Shoe Surgical Shoe with pressure with pressure relief insole relief insole Pain Scale: 0-10 Numeric Is Patient Pain Free? Yes Yes Yes 05/28/23 11:41 - Today's Visit Information Type of service Follow-up Visit (Physician/MULLING MACHINE OPERATOR ) Arrival Mode Wheelchair Transfer Assistance Manual Transfer Assist (Other) Accompanied by daughter Patient Identification Verified (Name & Yes ) Patient Requires Transmission-Based No Precautions Vital Signs Temperature (97.8 F-99.1 F) 98.1 F Temperature Source Temporal Pulse Rate (60-100) 71 Pulse Location Monitor Respiratory Rate (12-18) 16 Respiratory rate source Observation Oxygen Delivery Method Blood Pressure (90/60-120/80) 112/59 L Blood Pressure Mean (mm Hg) 76 Source Monitor Position Semi-Fowlers Blood Pressure Location Left Arm History Since Last Visit- (Skip if this is Patient's initial visit) Have you changed medications since your No last visit? Any new allergies or adverse reactions No Had a fall/change in ADL's that may No increase risk of falls Signs or symptoms of abuse and/or No neglect since last visit Have you been in the hospital since your No last visit? Has dressing in place as prescribed Yes Has compression in place as prescribed Yes Has offloadiing in place as prescribed Yes Experienced any changes in pain level or No management Left Footwear Surgical Shoe with pressure relief insole Right Footwear Surgical Shoe with pressure relief insole Pain Scale: 0-10 Numeric Is Patient Pain Free? Yes - Nurse 1 - General Ulcer Measurement Start: 04/30/23 08:44 Freq: Status: Active Protocol: Activity Type Activity Date Activity User E-sign Co-sign Detail Recorded Client Recorded Date Recorded By Document 04/30/23 10:18 DL Desktop 04/30/23 10:33 DL Document 05/07/23 11:55 BMF Desktop 05/07/23 11:59 BMF Document 05/14/23 11:38 DL Desktop 05/14/23 11:47 DL Document 05/28/23 11:41 JF Laptop 05/28/23 11:42 JF 04/30/23 05/07/23 05/14/23 10:18 11:55 11:38 Wound Center Nurse 1 #6 R DORSAL foot -Combined with other wound No -Current Size (cm) - Length 2.4 0.1 0.1 -Current Size (cm) - Width 6 0.1 0.1 -Current Size (cm) - Depth 0.2 0.1 0.1 -Total Square Cm 14.4 0.01 0.01 -Tunneling No -Undermining/Tunneling No -Circular Undermining No -Exudate Amt Large Large Large -Exudate Type Serosanguineous Serosanguineous Serosanguineous -Wound Margin Distinct, Distinct, Distinct, Outline Outline Outline Attached Attached Attached -Granulation Amt Small (1-33%) Medium (34-66%) Medium (34-66%) -Granulation Quality [place] Red -Slough/Fibrin Yes Yes -Necrosis Amt Large (67-100%) Large (67-100%) Medium (34-66%) -Necrotic Tissue Type Adherent Slough Adherent Slough Adherent Slough -Structure Exposed N/A -Texture (Yuliet-wound Skin Appearance) Localized Edema Assessed, Assessed, ,Scarring Scarring Scarring -Moisture (Yuliet-wound Skin Appearance) Maceration, Assessed, Assessed, Weeping Maceration, Maceration Weeping -Color (Yuliet-wound Skin Appearance) Hemosiderin Assessed Assessed, Staining Erythema -Temperature (Yuliet-wound Skin No Abnormality No Abnormality No Abnormality Appearance) (Pt Warm) (Pt Warm) (Pt Warm) -Tenderness on Palpation (Yuliet-wound No No Skin Appearance) -Ulcer Cleansing Not Cleansed Soap and Water Soap and Water -Foul Odor after Cleansing No No No -Anesthetic Used 4% Lidocaine 4% Lidocaine 4% Lidocaine Solution Solution Solution #5 L Med foot -Current Size (cm) - Length 5.5 0.1 0.1 -Current Size (cm) - Width 2.3 0.1 0.1 -Current Size (cm) - Depth 0.3 0.1 0.1 -Total Square Cm 12.65 0.01 0.01 -Photo Taken No -Tunneling No No -Undermining/Tunneling No No -Circular Undermining No No -Exudate Amt Large Medium -Exudate Type Serosanguineous Serosanguineous -Wound Margin Distinct, Distinct, Outline Outline Attached Attached -Granulation Amt Small (1-33%) Small (1-33%) -Granulation Quality [place] -Slough/Fibrin Yes -Necrosis Amt Large (67-100%) Large (67-100%) -Necrotic Tissue Type Adherent Slough Adherent Slough -Structure Exposed N/A -Texture (Yuliet-wound Skin Appearance) Scarring Assessed, Assessed, Scarring Scarring -Moisture (Yuliet-wound Skin Appearance) Maceration, Assessed, Assessed,Dry/ Weeping Maceration,Dry/ Scaly Scaly -Color (Yuliet-wound Skin Appearance) Hemosiderin Assessed Assessed Staining -Temperature (Yuliet-wound Skin No Abnormality No Abnormality No Abnormality Appearance) (Pt Warm) (Pt Warm) (Pt Warm) -Tenderness on Palpation (Yuliet-wound No No No Skin Appearance) -Ulcer Cleansing Soap and Water Soap and Water Soap and Water -Foul Odor after Cleansing No No No -Anesthetic Used 4% Lidocaine 4% Lidocaine 4% Lidocaine Solution Solution Solution #3 R Med Foot -Combined with other wound No No -Current Size (cm) - Length 14 0.1 -Current Size (cm) - Width 2 0.1 -Current Size (cm) - Depth 0.3 0.1 -Total Square Cm 28 0.01 -Tunneling No No -Undermining/Tunneling No No -Circular Undermining No No -Exudate Amt Large Large Large -Exudate Type Serosanguineous Serosanguineous Serosanguineous -Wound Margin Distinct, Distinct, Distinct, Outline Outline Outline Attached Attached Attached -Granulation Amt Small (1-33%) Medium (34-66%) Medium (34-66%) -Granulation Quality [place] -Slough/Fibrin Yes Yes -Necrosis Amt Large (67-100%) Large (67-100%) Medium (34-66%) -Necrotic Tissue Type Adherent Slough Adherent Slough Adherent Slough -Structure Exposed N/A -Texture (Yuliet-wound Skin Appearance) Scarring Assessed, Assessed, Scarring Scarring -Moisture (Yuliet-wound Skin Appearance) Maceration, Assessed, Assessed, Weeping Maceration,Dry/ Maceration Scaly -Color (Yuliet-wound Skin Appearance) Hemosiderin Assessed Assessed, Staining Erythema -Temperature (Yuliet-wound Skin No Abnormality No Abnormality No Abnormality Appearance) (Pt Warm) (Pt Warm) (Pt Warm) -Tenderness on Palpation (Yuliet-wound No No No Skin Appearance) -Ulcer Cleansing Not Cleansed Soap and Water Soap and Water -Foul Odor after Cleansing Yes, Due to No No Product Use -Anesthetic Used 4% Lidocaine 4% Lidocaine 4% Lidocaine Solution Solution Solution #2 R Lat foot -Combined with other wound No No -Current Size (cm) - Length 15 0.1 -Current Size (cm) - Width 3 0.1 -Current Size (cm) - Depth 0.3 0.1 -Total Square Cm 45 0.01 -Photo Taken No No -Epithelialization None Present -Tunneling No No -Undermining/Tunneling No No -Circular Undermining No No -Exudate Amt Large Large Large -Exudate Type Serosanguineous Serosanguineous Serosanguineous -Wound Margin Distinct, Distinct, Distinct, Outline Outline Outline Attached Attached Attached -Granulation Amt Small (1-33%) Small (1-33%) Medium (34-66%) -Granulation Quality [place] -Slough/Fibrin Yes Yes -Necrosis Amt Large (67-100%) Large (67-100%) Large (67-100%) -Necrotic Tissue Type Adherent Slough Adherent Slough Adherent Slough -Structure Exposed N/A -Texture (Yuliet-wound Skin Appearance) Scarring Assessed, Assessed, Scarring Scarring -Moisture (Yuliet-wound Skin Appearance) Maceration, Assessed, Assessed, Weeping Maceration,Dry/ Maceration,Dry/ Scaly Scaly -Color (Yuliet-wound Skin Appearance) Hemosiderin Assessed Assessed, Staining Erythema -Temperature (Yuliet-wound Skin No Abnormality No Abnormality No Abnormality Appearance) (Pt Warm) (Pt Warm) (Pt Warm) -Tenderness on Palpation (Yuliet-wound No No No Skin Appearance) -Ulcer Cleansing Soap and Water Soap and Water Soap and Water -Foul Odor after Cleansing No No No -Anesthetic Used 4% Lidocaine 4% Lidocaine 4% Lidocaine Solution Solution Solution Lower Limb Edema Present Right Calf (cm) 34 Right Ankle (cm) 23.5 Left Calf (cm) 33.5 Left Ankle (cm) 22.5 05/28/23 11:41 Wound Center Nurse 1 #6 R DORSAL foot -Combined with other wound -Current Size (cm) - Length -Current Size (cm) - Width -Current Size (cm) - Depth -Total Square Cm -Tunneling -Undermining/Tunneling -Circular Undermining -Exudate Amt -Exudate Type -Wound Margin -Granulation Amt -Granulation Quality -Slough/Fibrin -Necrosis Amt -Necrotic Tissue Type -Structure Exposed -Texture (Yuliet-wound Skin Appearance) -Moisture (Yuliet-wound Skin Appearance) -Color (Yuliet-wound Skin Appearance) -Temperature (Yuliet-wound Skin Appearance) -Tenderness on Palpation (Yuliet-wound Skin Appearance) -Ulcer Cleansing -Foul Odor after Cleansing -Anesthetic Used #5 L Med foot -Current Size (cm) - Length -Current Size (cm) - Width -Current Size (cm) - Depth -Total Square Cm -Photo Taken -Tunneling -Undermining/Tunneling -Circular Undermining -Exudate Amt -Exudate Type -Wound Margin -Granulation Amt -Granulation Quality -Slough/Fibrin -Necrosis Amt -Necrotic Tissue Type -Structure Exposed -Texture (Yuliet-wound Skin Appearance) -Moisture (Yuliet-wound Skin Appearance) -Color (Yuliet-wound Skin Appearance) -Temperature (Yuliet-wound Skin Appearance) -Tenderness on Palpation (Yuliet-wound Skin Appearance) -Ulcer Cleansing -Foul Odor after Cleansing -Anesthetic Used #3 R Med Foot -Combined with other wound -Current Size (cm) - Length -Current Size (cm) - Width -Current Size (cm) - Depth -Total Square Cm -Tunneling -Undermining/Tunneling -Circular Undermining -Exudate Amt -Exudate Type -Wound Margin -Granulation Amt -Granulation Quality -Slough/Fibrin -Necrosis Amt -Necrotic Tissue Type -Structure Exposed -Texture (Yuliet-wound Skin Appearance) -Moisture (Yuliet-wound Skin Appearance) -Color (Yuliet-wound Skin Appearance) -Temperature (Yuliet-wound Skin Appearance) -Tenderness on Palpation (Yuliet-wound Skin Appearance) -Ulcer Cleansing -Foul Odor after Cleansing -Anesthetic Used #2 R Lat foot -Combined with other wound -Current Size (cm) - Length -Current Size (cm) - Width -Current Size (cm) - Depth -Total Square Cm -Photo Taken -Epithelialization -Tunneling -Undermining/Tunneling -Circular Undermining -Exudate Amt -Exudate Type -Wound Margin -Granulation Amt -Granulation Quality -Slough/Fibrin -Necrosis Amt -Necrotic Tissue Type -Structure Exposed -Texture (Yuliet-wound Skin Appearance) -Moisture (Yuliet-wound Skin Appearance) -Color (Yuliet-wound Skin Appearance) -Temperature (Yuliet-wound Skin Appearance) -Tenderness on Palpation (Yuliet-wound Skin Appearance) -Ulcer Cleansing -Foul Odor after Cleansing -Anesthetic Used Lower Limb Edema Present Yes Right Calf (cm) 32 Right Ankle (cm) 23.5 Left Calf (cm) 34.6 Left Ankle (cm) 22 WC - Nurse 2 - General Ulcer CM Notes Start: 04/30/23 08:44 Freq: Status: Active Protocol: Activity Type Activity Date Activity User E-sign Co-sign Detail Recorded Client Recorded Date Recorded By Document 04/30/23 10:49 GM Desktop 04/30/23 11:05 GM Document 05/07/23 12:04 GM Desktop 05/07/23 12:23 GM Document 05/14/23 11:55 GM Desktop 05/14/23 12:10 GM Document 05/28/23 11:52 GM Desktop 05/28/23 12:09 GM 04/30/23 05/07/23 05/14/23 10:49 12:04 11:55 Wound Center Nurse 2 #6 R DORSAL foot -Time 10:49 12:04 11:55 -Correct Patient Yes Yes Yes -Correct Side, Site, Position Yes Yes Yes -Correct Procedure Yes Yes Yes -Procedure Performed Yes Yes Yes -Type of Procedure Debridement Debridement Debridement -Clinical Debridement Subcutaneous Subcutaneous Subcutaneous -Tissue Removed Subcutaneous Subcutaneous Subcutaneous -Post Debridement (cm) - Length 2.5 2.0 2.0 -Post Debridement (cm) - Width 6.0 6.3 6.0 -Post Debridement (cm) - Depth 0.2 0.3 0.3 -Total Square (Post) (cm) 15.00 12.60 12.00 -Area of Debridement (cm) - Length 2.5 2.0 2.0 -Area of Debridement (cm) - Width 6.0 6.3 3.0 -Total Square (Area) (cm) 15.00 12.60 6.00 -Tunneling No No -Undermining/Tunneling No No No -Circular Undermining No No No -Wound/Ulcer Outcome Not Healed Not Healed Not Healed -Ulcer Cleansing Rinsed/ Rinsed/ Not Cleansed Irrigated with Irrigated with Saline Saline -Foul Odor after Cleansing No No No -Bioengineered Tissue No No No -Bleeding Controlled with Pressure Pressure Pressure -Treatment Response Procedure Procedure Procedure Tolerated Well Tolerated Well Tolerated Well -Debridement - Subq, 1st 20sq cm No No No #5 L Med foot -Time 10:51 12:04 11:55 -Correct Patient Yes Yes Yes -Correct Side, Site, Position Yes Yes Yes -Correct Procedure Yes Yes Yes -Procedure Performed Yes Yes Yes -Type of Procedure Debridement Debridement Debridement -Clinical Debridement Subcutaneous Subcutaneous Subcutaneous -Tissue Removed Subcutaneous Subcutaneous Subcutaneous -Post Debridement (cm) - Length 2.0 2.0 2.0 -Post Debridement (cm) - Width 1.5 2.0 2.0 -Post Debridement (cm) - Depth 0.2 0.2 0.2 -Total Square (Post) (cm) 3.00 4.00 4.00 -Area of Debridement (cm) - Length 2.0 2.0 2.0 -Area of Debridement (cm) - Width 1.5 2.0 2.0 -Total Square (Area) (cm) 3.00 4.00 4.00 -Tunneling No No No -Undermining/Tunneling No No No -Circular Undermining No No No -Wound/Ulcer Outcome Not Healed Not Healed Not Healed -Ulcer Cleansing Rinsed/ Rinsed/ Rinsed/ Irrigated with Irrigated with Irrigated with Saline Saline Saline -Foul Odor after Cleansing No No No -Bioengineered Tissue No No No -Bleeding Controlled with Pressure Pressure Pressure -Treatment Response Procedure Procedure Procedure Tolerated Well Tolerated Well Tolerated Well -Offloading No -Assistive Device(s) Wheelchair -Debridement - Subq, 1st 20sq cm No Yes No -Debridement, SubQ, ea addt'l 20sq cm 4 or part thereof #3 R Med Foot -Time 10:51 12:05 11:56 -Correct Patient Yes Yes Yes -Correct Side, Site, Position Yes Yes Yes -Correct Procedure Yes Yes Yes -Procedure Performed Yes Yes Yes -Type of Procedure Debridement Debridement Debridement -Clinical Debridement Subcutaneous Subcutaneous Subcutaneous -Tissue Removed Subcutaneous Subcutaneous Subcutaneous -Post Debridement (cm) - Length 2.5 3.0 12.0 -Post Debridement (cm) - Width 11.0 10.5 3.0 -Post Debridement (cm) - Depth 0.2 0.3 0.4 -Total Square (Post) (cm) 27.50 31.50 36.00 -Area of Debridement (cm) - Length 2.5 3.0 12.0 -Area of Debridement (cm) - Width 11.0 10.5 3.0 -Total Square (Area) (cm) 27.50 31.50 36.00 -Tunneling No No No -Undermining/Tunneling No No No -Circular Undermining No No No -Wound/Ulcer Outcome Not Healed Not Healed Not Healed -Ulcer Cleansing Rinsed/ Rinsed/ Rinsed/ Irrigated with Irrigated with Irrigated with Saline Saline Saline -Foul Odor after Cleansing No No No -Bioengineered Tissue No No No -Bleeding Controlled with Pressure Pressure Pressure -Treatment Response Procedure Procedure Procedure Tolerated Well Tolerated Well Tolerated Well -Debridement - Subq, 1st 20sq cm Yes No Yes -Debridement, SubQ, ea addt'l 20sq cm 3 3 or part thereof #2 R Lat foot -Time 10:52 12:06 11:56 -Correct Patient Yes Yes Yes -Correct Side, Site, Position Yes Yes Yes -Correct Procedure Yes Yes Yes -Procedure Performed Yes Yes Yes -Type of Procedure Debridement Debridement Debridement -Clinical Debridement Subcutaneous Subcutaneous Subcutaneous -Tissue Removed Subcutaneous Subcutaneous Subcutaneous -Post Debridement (cm) - Length 2.5 11.0 2.6 -Post Debridement (cm) - Width 8.3 3.1 10.5 -Post Debridement (cm) - Depth 0.2 0.3 0.3 -Total Square (Post) (cm) 20.75 34.10 27.30 -Area of Debridement (cm) - Length 2.5 11.0 2.6 -Area of Debridement (cm) - Width 8.3 3.1 10.5 -Total Square (Area) (cm) 20.75 34.10 27.30 -Tunneling No No No -Undermining/Tunneling No No No -Circular Undermining No No No -Wound/Ulcer Outcome Not Healed Not Healed Not Healed -Ulcer Cleansing Rinsed/ Rinsed/ Rinsed/ Irrigated with Irrigated with Irrigated with Saline Saline Saline -Foul Odor after Cleansing No No No -Bioengineered Tissue No No No -Bleeding Controlled with Pressure Pressure Pressure -Treatment Response Procedure Procedure Procedure Tolerated Well Tolerated Well Tolerated Well -Debridement - Subq, 1st 20sq cm No No No -Debridement, SubQ, ea addt'l 20sq cm or part thereof Pain Scale: 0-10 Numeric Is Patient Pain Free? Yes Yes Yes 05/28/23 11:52 Wound Center Nurse 2 #6 R DORSAL foot -Time 11:52 -Correct Patient Yes -Correct Side, Site, Position Yes -Correct Procedure Yes -Procedure Performed Yes -Type of Procedure Debridement -Clinical Debridement Subcutaneous -Tissue Removed Subcutaneous -Post Debridement (cm) - Length 2.0 -Post Debridement (cm) - Width 5.5 -Post Debridement (cm) - Depth 0.3 -Total Square (Post) (cm) 11.00 -Area of Debridement (cm) - Length 2.0 -Area of Debridement (cm) - Width 5.5 -Total Square (Area) (cm) 11.00 -Tunneling No -Undermining/Tunneling No -Circular Undermining No -Wound/Ulcer Outcome Not Healed -Ulcer Cleansing Rinsed/ Irrigated with Saline -Foul Odor after Cleansing No -Bioengineered Tissue No -Bleeding Controlled with Pressure -Treatment Response Procedure Tolerated Well -Debridement - Subq, 1st 20sq cm No #5 L Med foot -Time 11:52 -Correct Patient Yes -Correct Side, Site, Position Yes -Correct Procedure Yes -Procedure Performed Yes -Type of Procedure Debridement -Clinical Debridement Subcutaneous -Tissue Removed Subcutaneous -Post Debridement (cm) - Length 2.0 -Post Debridement (cm) - Width 1.5 -Post Debridement (cm) - Depth 0.2 -Total Square (Post) (cm) 3.00 -Area of Debridement (cm) - Length 2.0 -Area of Debridement (cm) - Width 1.5 -Total Square (Area) (cm) 3.00 -Tunneling No -Undermining/Tunneling No -Circular Undermining No -Wound/Ulcer Outcome Not Healed -Ulcer Cleansing Rinsed/ Irrigated with Saline -Foul Odor after Cleansing No -Bioengineered Tissue No -Bleeding Controlled with Pressure -Treatment Response Procedure Tolerated Well -Offloading -Assistive Device(s) -Debridement - Subq, 1st 20sq cm No -Debridement, SubQ, ea addt'l 20sq cm or part thereof #3 R Med Foot -Time 11:53 -Correct Patient Yes -Correct Side, Site, Position Yes -Correct Procedure Yes -Procedure Performed Yes -Type of Procedure Debridement -Clinical Debridement Subcutaneous -Tissue Removed Subcutaneous -Post Debridement (cm) - Length 11.5 -Post Debridement (cm) - Width 3.5 -Post Debridement (cm) - Depth 0.3 -Total Square (Post) (cm) 40.25 -Area of Debridement (cm) - Length 11.5 -Area of Debridement (cm) - Width 3.5 -Total Square (Area) (cm) 40.25 -Tunneling No -Undermining/Tunneling No -Circular Undermining No -Wound/Ulcer Outcome Not Healed -Ulcer Cleansing Not Cleansed -Foul Odor after Cleansing No -Bioengineered Tissue No -Bleeding Controlled with Pressure -Treatment Response Procedure Tolerated Well -Debridement - Subq, 1st 20sq cm No -Debridement, SubQ, ea addt'l 20sq cm or part thereof #2 R Lat foot -Time 11:53 -Correct Patient Yes -Correct Side, Site, Position Yes -Correct Procedure Yes -Procedure Performed Yes -Type of Procedure Debridement -Clinical Debridement Subcutaneous -Tissue Removed Subcutaneous -Post Debridement (cm) - Length 2.0 -Post Debridement (cm) - Width 9.5 -Post Debridement (cm) - Depth 0.3 -Total Square (Post) (cm) 19.00 -Area of Debridement (cm) - Length 2.0 -Area of Debridement (cm) - Width 9.5 -Total Square (Area) (cm) 19.00 -Tunneling No -Undermining/Tunneling No -Circular Undermining No -Wound/Ulcer Outcome Not Healed -Ulcer Cleansing Rinsed/ Irrigated with Saline -Foul Odor after Cleansing No -Bioengineered Tissue No -Bleeding Controlled with Pressure -Treatment Response Procedure Tolerated Well -Debridement - Subq, 1st 20sq cm Yes -Debridement, SubQ, ea addt'l 20sq cm 3 or part thereof Pain Scale: 0-10 Numeric Is Patient Pain Free? Yes WC - Nurse 3 - General Ulcer D/C NN Start: 04/30/23 08:44 Freq: Status: Active Protocol: Activity Type Activity Date Activity User E-sign Co-sign Detail Recorded Client Recorded Date Recorded By Document 05/14/23 12:10 GM Desktop 05/14/23 12:17 GM Document 05/28/23 12:20 [facility] Desktop 05/28/23 12:21 BM 05/14/23 05/28/23 12:10 12:20 Wound Care Center Nurse 3 #6 R DORSAL foot -Ulcer Cleansing Not Cleansed Rinsed/ Irrigated with Saline -Foul Odor after Cleansing No No -Negative Pressure Wound Therapy N/A -Primary Dressing Applied Aquacel Extra Aquacel Extra -Other Dressing ABD -Primary Dressing Covered/Secured with Dry Gauze & Dry Gauze & Roll Gauze, Roll Gauze, Secured with Secured with Tape Tape -Aquacel Extra 1 1 #5 L Med foot -Ulcer Cleansing Not Cleansed Rinsed/ Irrigated with Saline -Foul Odor after Cleansing No No -Negative Pressure Wound Therapy N/A -Primary Dressing Applied Promogran NonAdherent Contact Layer, Promogran -Primary Dressing Covered/Secured with Dry Gauze & Dry Gauze & Roll Gauze, Roll Gauze, Secured with Secured with Tape Tape -Promogran 1 1 #3 R Med Foot -Ulcer Cleansing Not Cleansed Rinsed/ Irrigated with Saline -Foul Odor after Cleansing No No -Negative Pressure Wound Therapy N/A -Primary Dressing Applied Aquacel Extra -Other Dressing ABD -Primary Dressing Covered/Secured with Dry Gauze & Dry Gauze & Roll Gauze, Roll Gauze, Secured with Secured with Tape Tape -Aquacel Extra 0 #2 R Lat foot -Ulcer Cleansing Not Cleansed Rinsed/ Irrigated with Saline -Foul Odor after Cleansing No No -Negative Pressure Wound Therapy N/A -Primary Dressing Applied Aquacel Extra -Other Dressing ABD -Primary Dressing Covered/Secured with Dry Gauze & Dry Gauze & Roll Gauze, Roll Gauze, Secured with Secured with Tape Tape -Aquacel Extra 0 Right -Lotion applied to leg before No compression wrap -Compression Wrap Cole Wrap Cole Wrap Left -Lotion applied to leg before No compression wrap -Compression Wrap Cole Wrap Cole Wrap Treatment Response Procedure Tolerated Well Pain Scale: 0-10 Numeric Is Patient Pain Free? Yes Yes Teaching: Wound Center Compression Wraps & Stockings -Person Taught Patient,Family -Teaching Method Discussion -Response to teaching Verbalize understanding Control Swelling with Leg Elevation -Person Taught Patient,Family -Teaching Method Discussion -Response to teaching Verbalize understanding Dressing Your Wound -Person Taught Patient,Family -Teaching Method Discussion -Response to teaching Verbalize understanding WC - Visit Discharge Discharge Condition Stable Stable Ambulatory Status Walker Wheelchair Transportation Private Auto Private Auto Accompanied by SISTER Medication Reconcilliation completed & Yes provided to patient/care provider Clinical Summary of Care Provided Yes Facility Type [facility] Additional Wound Wound debrided: Left medial ankle/lower extremity Type of Debridement: Excisional debridement Anesthesia Used: 4% Lidocaine Solution Depth: Down to and including healthy tissue and in the subcutaneous layer Percentage of wound debrided: 100 Instrument Used: 5mm curette Tissue Removed: Slough and devitalized tissue Severity: Fat Layer Exposed Amount of bleeding with debridement: Mild Bleeding Controlled with: Pressure Patient tolerated procedure: Patient tolerated procedure well Additional Wound Wound debrided: Right medial ankle/lower extremity Type of Debridement: Excisional debridement Anesthesia Used: 4% Lidocaine Solution Depth: Down to and including healthy tissue and in the subcutaneous layer Percentage of wound debrided: 100 Instrument Used: 5mm curette Tissue Removed: Slough and devitalized tissue Severity: Fat Layer Exposed Amount of bleeding with debridement: Mild Bleeding Controlled with: Pressure Patient tolerated procedure: Patient tolerated procedure well Additional Wound Wound debrided: Right Dorsal Foot Type of Debridement: Excisional debridement Anesthesia Used: 4% Lidocaine Solution Depth: Down to and including healthy tissue and in the subcutaneous layer Percentage of wound debrided: 100 Instrument Used: 5mm curette Tissue Removed: Slough and devitalized tissue Severity: Fat Layer Exposed Amount of bleeding with debridement: Mild Bleeding Controlled with: Pressure Patient tolerated procedure: Patient tolerated procedure well Additional Wound Tissue Removed: Slough and devitalized tissue Assessment/Plan Assessment/Plan (1) Ulcer of right lower extremity with fat layer exposed: CODE(S): L97.912 - Non-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 (2) Ulcer of left lower extremity with fat layer exposed: CODE(S): L97.922 - Non-pressure chronic ulcer of unspecified part of left lower leg with fat layer exposed (3) Ulcer of right heel and midfoot with fat layer exposed: CODE(S): L97.412 - Non-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 Some impro vement noted. Less maceration also appreciated today. Continue Aquacel extra, cover with foam dressing to all right lower extremity ulcers. Continue Promogran and adaptic to left medial ankle ulcer. Change twice daily or more depending on drainage. Cole wraps to both extremities for edema management. Leg elevation, optimized protein and nutrition recommended. Continue FU with Vascular, will review records. His questions were answered and he was advised to let us know if he has any further questions or concerns. Follow up in 2 weeks or sooner if needed. This note was generated with [employer] dictation software. It may contain incorrect words, spelling, and punctuation that were not noted in checking the note before signing.
== END 2023-05-28 23:59 | disposition home or self-care (01) ==
LOC: WC 11:15
PROVIDERS: PCP Family Medicine; Referring Provider Family Medicine; Visit Provider Internal Medicine
DX: L97.412 Non-pressure chronic ulcer of right heel and midfoot with fat layer exposed (principal); L97.922 Non-pressure chronic ulcer of unspecified part of left lower leg with fat layer exposed; L97.912 Non-pressure chronic ulcer of unspecified part of right lower leg with fat layer exposed; I73.9 Peripheral vascular disease, unspecified; G62.9 Polyneuropathy, unspecified; R53.81 Other malaise
CPT/HCPCS: 11042; 11045; 93923; 93970

== ENCOUNTER 2023-06-25 11:15 | Outpatient (RCR) | payer MEDICARE, BC, SELFPAY ==
[2023-05-29 00:34] VITALS: BP 112/59; PULSE 71; RESP 16; TEMP 36.7
[2023-06-11 11:12] VITALS: BP 108/43; PULSE 64; RESP 16; TEMP 36.4
--- NOTE | 2023-06-11 12:49 | PCM.WC.PN ---
History of Present Illness Date of Service: 06/11/23 Chief Complaint: Nonhealing bilateral lower extremity ulcers History of Wound: Mr Wilson is an 82-year-old who was brought in here from his [place] [facility] facility due to nonhealing bilateral lower extremity ulcers. Has had recurrent ulcerations for over 10 years with most recent episode being more severe late last year. He was seen at the emergency room and subsequently advised to follow-up at a wound center which he did at [facility] without any significant improvement. A month ago, he was hospitalized for sepsis secondary to bilateral lower extremity ulcers. Following his admission and hospital stay, he did not return to the prior wound center. He reports a lot of drainage from his ulcers. They have been inconsistent dressing changes at his facility. He feels well otherwise and denies chills, fever. Currently has a PICC line and he is on IV vancomycin and cephalosporin. Progress of Wound: More maceration and slough noted today. Patient states that his wounds are not being cleaned with soap and water, just a saline rinse. Objective Data Objective Data Vital Signs: Vital Signs Temp Pulse Resp BP O2 Del Method 97.5 F L 64 16 108/43 L Room Air 06/11/23 11:12 06/11/23 11:12 06/11/23 11:12 06/11/23 11:12 06/11/23 11:12 Oxygen Delivery Method Room Air Charges/Coding Procedures Integumentary [id number]: [id number] Samina subq tissue 20 sq cm/< Add On Codes: 68423 Samina subq tissue add-on (x3 additional square centimeter debrided, please refer to clinical note.) Physical Exam Const alert and no apparent distress General Appearance: cooperative and comfortable HEENT normocephalic, head/scalp atraumatic and hearing grossly normal bilaterally Head and Scalp: normal to inspection, normocephalic and atraumatic Neck full ROM General: normal visual inspection Resp normal respiratory effort Effort and Inspection: able to speak in complete sentences Extremity General Extremity: deformity Skin Wounds: wounds noted Neuro CN's II-XII intact bilaterally, moves all extremities and no focal motor deficits Psych mental status grossly normal Appearance: grossly normal Attitude: calm Debridement Note Debridement Note Wound debrided: Right Lateral Ankle/Foot Type of Debridement: Excisional debridement Anesthesia Used: 4% Lidocaine Solution Depth: Down to and including healthy tissue and in the subcutaneous layer Percentage of wound debrided: 100 Instrument Used: 5mm curette Tissue Removed: Slough and devitalized tissue Severity: Fat Layer Exposed Amount of bleeding with debridement: Mild Bleeding Controlled with: Pressure Patient tolerated procedure: Patient tolerated procedure well Post-Debridement Measurements and Additional Note: Post-Debridement Measurements/Treatment - Nurse 1 - General Ulcer Assessment Start: 06/11/23 11:12 Freq: Status: Active Protocol: MARTA Activity Type Activity Date Activity User E-sign Co-sign Detail Recorded Client Recorded Date Recorded By Document 06/11/23 11:12 [facility] 06/11/23 11:23 [facility] 06/11/23 11:12 WC - Today's Visit Information Type of service Follow-up Visit (Physician/MANAGER BANKING ) Arrival Mode Wheelchair Transfer Assistance Other Transfer Assist (Other) 2 max Patient Identification Verified (Name & Yes ) Patient Requires Transmission-Based No Precautions Vital Signs Temperature (97.8 F-99.1 F) 97.5 F L Temperature Source Temporal Pulse Rate (60-100) 64 Pulse Location Monitor Respiratory Rate (12-18) 16 Respiratory rate source Observation Oxygen Delivery Method Room Air Blood Pressure (90/60-120/80) 108/43 L Blood Pressure Mean (mm Hg) 64 Source Monitor Position Sitting Blood Pressure Location Right Forearm History Since Last Visit- (Skip if this is Patient's initial visit) Have you changed medications since your No last visit? Any new allergies or adverse reactions No Had a fall/change in ADL's that may No increase risk of falls Signs or symptoms of abuse and/or No neglect since last visit Have you been in the hospital since your No last visit? Has dressing in place as prescribed Yes Has compression in place as prescribed Yes Has offloadiing in place as prescribed Yes Experienced any changes in pain level or No management Left Footwear Surgical Shoe with pressure relief insole Right Footwear Surgical Shoe with pressure relief insole Pain Scale: 0-10 Numeric Is Patient Pain Free? Yes - Nurse 1 - General Ulcer Measurement Start: 06/11/23 11:12 Freq: Status: Active Protocol: Activity Type Activity Date Activity User E-sign Co-sign Detail Recorded Client Recorded Date Recorded By Document 06/11/23 11:12 [facility] 06/11/23 11:23 [facility] 06/11/23 11:12 Wound Center Nurse 1 #6 R DORSAL foot -Combined with other wound No -Current Size (cm) - Length 0.1 -Current Size (cm) - Width 0.1 -Current Size (cm) - Depth 0.1 -Total Square Cm 0.01 -Epithelialization None Present -Tunneling No -Undermining/Tunneling No -Circular Undermining No -Exudate Amt Medium -Exudate Type Serosanguineous -Wound Margin Thickened -Granulation Amt Medium (34-66%) -Granulation Quality Red -Slough/Fibrin Yes -Necrosis Amt Medium (34-66%) -Necrotic Tissue Type Adherent Slough -Texture (Yuliet-wound Skin Appearance) Assessed,Callus ,Scarring -Moisture (Yuliet-wound Skin Appearance) Assessed,Dry/ Scaly -Color (Yuliet-wound Skin Appearance) Assessed, Erythema -Temperature (Yuliet-wound Skin No Abnormality Appearance) (Pt Warm) -Tenderness on Palpation (Yuliet-wound No Skin Appearance) -Ulcer Cleansing Soap and Water -Foul Odor after Cleansing No -Anesthetic Used 4% Lidocaine Solution #5 L Med foot -Combined with other wound No -Current Size (cm) - Length 0.1 -Current Size (cm) - Width 0.1 -Current Size (cm) - Depth 0.1 -Total Square Cm 0.01 -Epithelialization None Present -Tunneling No -Undermining/Tunneling No -Circular Undermining No -Exudate Amt Medium -Exudate Type Serosanguineous -Wound Margin Distinct, Outline Attached -Granulation Amt Small (1-33%) -Granulation Quality Red -Slough/Fibrin Yes -Necrosis Amt Large (67-100%) -Necrotic Tissue Type Adherent Slough -Texture (Yuliet-wound Skin Appearance) Assessed,Callus ,Scarring -Moisture (Yuliet-wound Skin Appearance) Assessed,Dry/ Scaly -Color (Yuliet-wound Skin Appearance) Assessed -Temperature (Yuliet-wound Skin No Abnormality Appearance) (Pt Warm) -Tenderness on Palpation (Yuliet-wound No Skin Appearance) -Ulcer Cleansing Soap and Water -Foul Odor after Cleansing No -Anesthetic Used 4% Lidocaine Solution #3 R Med Foot -Combined with other wound No -Current Size (cm) - Length 0.1 -Current Size (cm) - Width 0.1 -Current Size (cm) - Depth 0.1 -Total Square Cm 0.01 -Tunneling No -Undermining/Tunneling No -Circular Undermining No -Exudate Amt Large -Exudate Type Serosanguineous -Wound Margin Distinct, Outline Attached -Granulation Amt Medium (34-66%) -Granulation Quality [place] -Slough/Fibrin Yes -Necrosis Amt Medium (34-66%) -Necrotic Tissue Type Adherent Slough -Texture (Yuliet-wound Skin Appearance) Assessed, Scarring -Moisture (Yuliet-wound Skin Appearance) Assessed, Maceration,Dry/ Scaly -Color (Yuliet-wound Skin Appearance) Assessed, Erythema -Temperature (Yuliet-wound Skin No Abnormality Appearance) (Pt Warm) -Tenderness on Palpation (Yuliet-wound No Skin Appearance) -Ulcer Cleansing Soap and Water -Foul Odor after Cleansing No -Anesthetic Used 4% Lidocaine Solution #2 R Lat foot -Combined with other wound No -Current Size (cm) - Length 0.1 -Current Size (cm) - Width 0.1 -Current Size (cm) - Depth 0.1 -Total Square Cm 0.01 -Tunneling No -Undermining/Tunneling No -Circular Undermining No -Exudate Amt Large -Exudate Type Serosanguineous -Wound Margin Distinct, Outline Attached -Granulation Amt Medium (34-66%) -Granulation Quality Pale,Red -Slough/Fibrin Yes -Necrosis Amt Medium (34-66%) -Necrotic Tissue Type Adherent Slough -Texture (Yuliet-wound Skin Appearance) Assessed, Scarring -Moisture (Yuliet-wound Skin Appearance) Assessed,Dry/ Scaly -Color (Yuliet-wound Skin Appearance) Assessed -Temperature (Yuliet-wound Skin No Abnormality Appearance) (Pt Warm) -Tenderness on Palpation (Yuliet-wound No Skin Appearance) -Ulcer Cleansing Soap and Water -Foul Odor after Cleansing No -Anesthetic Used 4% Lidocaine Solution WC - Nurse 2 - General Ulcer CM Notes Start: 06/11/23 11:12 Freq: Status: Active Protocol: Activity Type Activity Date Activity User E-sign Co-sign Detail Recorded Client Recorded Date Recorded By Document 06/11/23 11:37 Laptop 06/11/23 12:00 06/11/23 11:37 Wound Center Nurse 2 #6 R DORSAL foot -Time 11:37 -Correct Patient Yes -Correct Side, Site, Position Yes -Correct Procedure Yes -Procedure Performed Yes -Type of Procedure Debridement -Clinical Debridement Subcutaneous -Tissue Removed Subcutaneous -Post Debridement (cm) - Length 2.0 -Post Debridement (cm) - Width 6.0 -Post Debridement (cm) - Depth 0.2 -Total Square (Post) (cm) 12.00 -Area of Debridement (cm) - Length 2.0 -Area of Debridement (cm) - Width 6.0 -Total Square (Area) (cm) 12.00 -Tunneling No -Undermining/Tunneling No -Circular Undermining No -Wound/Ulcer Outcome Not Healed -Ulcer Cleansing Rinsed/ Irrigated with Saline -Foul Odor after Cleansing No -Bioengineered Tissue No -Bleeding Controlled with Pressure -Treatment Response Procedure Tolerated Well -Offloading No -Debridement - Subq, 1st 20sq cm Yes -Debridement, SubQ, ea addt'l 20sq cm 4 or part thereof #5 L Med foot -Time 11:38 -Correct Patient Yes -Correct Side, Site, Position Yes -Correct Procedure Yes -Procedure Performed Yes -Type of Procedure Debridement -Clinical Debridement Subcutaneous -Tissue Removed Subcutaneous -Post Debridement (cm) - Length 1.8 -Post Debridement (cm) - Width 1.8 -Post Debridement (cm) - Depth 0.3 -Total Square (Post) (cm) 3.24 -Area of Debridement (cm) - Length 1.8 -Area of Debridement (cm) - Width 1.8 -Total Square (Area) (cm) 3.24 -Tunneling No -Undermining/Tunneling No -Circular Undermining No -Wound/Ulcer Outcome Not Healed -Ulcer Cleansing Rinsed/ Irrigated with Saline -Foul Odor after Cleansing No -Bioengineered Tissue No -Bleeding Controlled with Pressure -Treatment Response Procedure Tolerated Well -Offloading No -Type of Offloading Surgical Shoe -Debridement - Subq, 1st 20sq cm No #3 R Med Foot -Time 11:38 -Correct Patient Yes -Correct Side, Site, Position Yes -Correct Procedure Yes -Procedure Performed Yes -Type of Procedure Debridement -Clinical Debridement Subcutaneous -Tissue Removed Subcutaneous -Post Debridement (cm) - Length 4.5 -Post Debridement (cm) - Width 11.5 -Post Debridement (cm) - Depth 0.3 -Total Square (Post) (cm) 51.75 -Area of Debridement (cm) - Length 4.5 -Area of Debridement (cm) - Width 11.5 -Total Square (Area) (cm) 51.75 -Tunneling No -Undermining/Tunneling No -Circular Undermining No -Wound/Ulcer Outcome Not Healed -Ulcer Cleansing Rinsed/ Irrigated with Saline -Foul Odor after Cleansing No -Bioengineered Tissue No -Bleeding Controlled with Pressure -Treatment Response Procedure Tolerated Well -Offloading Yes -Type of Offloading Surgical Shoe -Debridement - Subq, 1st 20sq cm No #2 R Lat foot -Time 11:39 -Correct Patient Yes -Correct Side, Site, Position Yes -Correct Procedure Yes -Procedure Performed Yes -Type of Procedure Debridement -Clinical Debridement Subcutaneous -Tissue Removed Subcutaneous -Post Debridement (cm) - Length 2.5 -Post Debridement (cm) - Width 10.0 -Post Debridement (cm) - Depth 0.2 -Total Square (Post) (cm) 25.00 -Area of Debridement (cm) - Length 2.5 -Area of Debridement (cm) - Width 10 -Total Square (Area) (cm) 25.0 -Tunneling No -Undermining/Tunneling No -Circular Undermining No -Wound/Ulcer Outcome Not Healed -Ulcer Cleansing Rinsed/ Irrigated with Saline -Foul Odor after Cleansing No -Bioengineered Tissue No -Bleeding Controlled with Pressure -Treatment Response Procedure Tolerated Well -Offloading No -Debridement - Subq, 1st 20sq cm No Pain Scale: 0-10 Numeric Is Patient Pain Free? Yes WC - Nurse 3 - General Ulcer D/C NN Start: 06/11/23 11:12 Freq: Status: Active Protocol: Activity Type Activity Date Activity User E-sign Co-sign Detail Recorded Client Recorded Date Recorded By Document 06/11/23 12:16 [facility] Desktop 06/11/23 12:17 [facility] 06/11/23 12:16 Wound Care Center Nurse 3 #6 R DORSAL foot -Ulcer Cleansing Rinsed/ Irrigated with Saline -Foul Odor after Cleansing No -Primary Dressing Applied Aquacel Extra -Other Dressing abd -Primary Dressing Covered/Secured with Dry Gauze & Roll Gauze, Secured with Tape -Aquacel Extra 1 #5 L Med foot -Ulcer Cleansing Rinsed/ Irrigated with Saline -Foul Odor after Cleansing No -Primary Dressing Applied Promogran -Other Dressing abd -Primary Dressing Covered/Secured with Dry Gauze & Roll Gauze, Secured with Tape -Promogran 1 #3 R Med Foot -Ulcer Cleansing Rinsed/ Irrigated with Saline -Foul Odor after Cleansing No -Primary Dressing Applied Aquacel Extra -Other Dressing abd -Primary Dressing Covered/Secured with Dry Gauze & Roll Gauze, Secured with Tape -Aquacel Extra 0 #2 R Lat foot -Ulcer Cleansing Rinsed/ Irrigated with Saline -Foul Odor after Cleansing No -Primary Dressing Applied Aquacel Extra -Other Dressing abd -Primary Dressing Covered/Secured with Dry Gauze & Roll Gauze, Secured with Tape -Aquacel Extra 0 ble -Compression Wrap Cole Wrap Treatment Response Procedure Tolerated Well Pain Scale: 0-10 Numeric Is Patient Pain Free? Yes WC - Visit Discharge Discharge Condition Stable Ambulatory Status Wheelchair Transportation ecf Facility Type [facility] Additional Wound Wound debrided: Left medial ankle/lower extremity Type of Debridement: Excisional debridement Anesthesia Used: 4% Lidocaine Solution Depth: Down to and including healthy tissue and in the subcutaneous layer Percentage of wound debrided: 100 Instrument Used: 5mm curette Tissue Removed: Slough and devitalized tissue Severity: Fat Layer Exposed Amount of bleeding with debridement: Mild Bleeding Controlled with: Pressure Patient tolerated procedure: Patient tolerated procedure well Additional Wound Wound debrided: Right medial ankle/lower extremity Type of Debridement: Excisional debridement Anesthesia Used: 4% Lidocaine Solution Depth: Down to and including healthy tissue and in the subcutaneous layer Percentage of wound debrided: 100 Instrument Used: 5mm curette Tissue Removed: Slough and devitalized tissue Severity: Fat Layer Exposed Amount of bleeding with debridement: Mild Bleeding Controlled with: Pressure Patient tolerated procedure: Patient tolerated procedure well Additional Wound Wound debrided: Right Dorsal Foot Type of Debridement: Excisional debridement Anesthesia Used: 4% Lidocaine Solution Depth: Down to and including healthy tissue and in the subcutaneous layer Percentage of wound debrided: 100 Instrument Used: 5mm curette Tissue Removed: Slough and devitalized tissue Severity: Fat Layer Exposed Amount of bleeding with debridement: Mild Bleeding Controlled with: Pressure Patient tolerated procedure: Patient tolerated procedure well Additional Wound Tissue Removed: Slough and devitalized tissue Assessment/Plan Assessment/Plan (1) Ulcer of right lower extremity with fat layer exposed: CODE(S): L97.912 - Non-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 (2) Ulcer of left lower extremity with fat layer exposed: CODE(S): L97.922 - Non-pressure chronic ulcer of unspecified part of left lower leg with fat layer exposed (3) Ulcer of right heel and midfoot with fat layer exposed: CODE(S): L97.412 - Non-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 More maceration and slough noted today. Cultures taken, will review. Recommend cleaning with soap and water prior to going changes. Continue Aquacel extra, cover with foam dressing to all right lower extremity ulcers. Continue Promogran and adaptic to left medial ankle ulcer. Change twice daily or more depending on drainage. Cole wraps to both extremities for edema management. Leg elevation, optimized protein and nutrition recommended. Continue FU with Vascular, will review records. His questions were answered and he was advised to let us know if he has any further questions or concerns. Follow up in 1 week for courtesy visit and in 2 weeks with me. This note was generated with [employer] dictation software. It may contain incorrect words, spelling, and punctuation that were not noted in checking the note before signing.
--- NOTE | 2023-06-15 12:09 | WC ---
Called and spoke to Nurse Prudence at [facility] regarding Cipro that was ordered by Dr Todd due to positive wound cultures. Dr Todd states she wants PT/INR checked Q48 hours while on Cipro due to drug interaction with patient's coumadin. Order given to Prudence who verbalizes understanding.
[2023-06-18 11:21] VITALS: BP 105/55; PULSE 84; RESP 18; TEMP 35.9
--- NOTE | 2023-06-19 07:38 | PCM.WC.PN ---
History of Present Illness Date of Service: 06/18/23 Chief Complaint: Nonhealing bilateral lower extremity ulcers History of Wound: Mr Wilson is an 82-year-old who was [facility] in [facility] his [facility] due to nonhealing bilateral lower extremity ulcers. Has had recurrent ulcerations for over 10 years with most recent episode being more severe late last year. He was seen at the emergency room and subsequently advised to follow-up at a wound center which he did at [facility] without any significant improvement. A month ago, he was hospitalized for sepsis secondary to bilateral lower extremity ulcers. Following his admission and hospital stay, he did not return to the prior wound center. He reports a lot of drainage from his ulcers. They have been inconsistent dressing changes at his facility. He feels well otherwise and denies chills, fever. Currently has a PICC line and he is on IV vancomycin and cephalosporin. Progress of Wound: Wounds were macerated with a lot of excess moisture on exam today, dressings were soaked through. Patient reports that his dressings were not changed the evening prior, so he only had one dressing change yesterday. Objective Data Objective Data Vital Signs: Vital Signs Temp Pulse Resp BP O2 Del Method 96.7 F L 84 18 105/55 L Room Air 06/18/23 11:21 06/18/23 11:21 06/18/23 11:21 06/18/23 11:21 06/18/23 11:21 Oxygen Delivery Method Room Air Lab / Micro Data Micro: Microbiology 06/11/23 11:45 Wound - Right Foot Gram Stain - Final 06/11/23 11:45 Wound - Right Foot Wound Culture - Final Pseudomonas aeruginosa#2 Pseudomonas aeruginosa Proteus mirabilis 06/11/23 11:45 Wound - Right Foot Anaerobic Culture - Final No anaerobic bacteria isolated. Charges/Coding Procedures Integumentary 111xxx-113xx: [id number] Samina subq tissue 20 sq cm/< Add On Codes: 44547 Samina subq tissue add-on (x3 additional square centimeter debrided, please refer to clinical note.) Physical Exam Const alert and no apparent distress General Appearance: cooperative and comfortable HEENT normocephalic, head/scalp atraumatic and hearing grossly normal bilaterally Head and Scalp: normal to inspection, normocephalic and atraumatic Neck full ROM General: normal visual inspection Resp normal respiratory effort Effort and Inspection: able to speak in complete sentences Extremity General Extremity: deformity Skin Wounds: wounds noted Neuro CN's II-XII intact bilaterally, moves all extremities and no focal motor deficits Psych mental status grossly normal Appearance: grossly normal Attitude: calm Debridement Note Debridement Note Wound debrided: Right Lateral Ankle/Foot Type of Debridement: Excisional debridement Anesthesia Used: 4% Lidocaine Solution Depth: Down to and including healthy tissue and in the subcutaneous layer Percentage of wound debrided: 100 Instrument Used: 5mm curette Tissue Removed: Slough and devitalized tissue Severity: Fat Layer Exposed Amount of bleeding with debridement: Mild Bleeding Controlled with: Pressure Patient tolerated procedure: Patient tolerated procedure well Post-Debridement Measurements and Additional Note: Post-Debridement Measurements/Treatment - Nurse 1 - General Ulcer Assessment Start: 06/11/23 11:12 Freq: Status: Active Protocol: MARTA Activity Type Activity Date Activity User E-sign Co-sign Detail Recorded Client Recorded Date Recorded By Document 06/11/23 11:12 [employer] 06/11/23 11:23 [employer] Document 06/18/23 11:21 [employer] Desktop 06/18/23 11:31 KW 06/11/23 06/18/23 11:12 11:21 - Today's Visit Information Type of service Follow-up Visit Follow-up Visit (Physician/LOGISTICS COORDINATOR (Physician/LOGISTICS COORDINATOR ) ) Arrival Mode Wheelchair Wheelchair Transfer Assistance Other Transfer Assist (Other) 2 max Patient Identification Verified (Name & Yes Yes ) Patient Requires Transmission-Based No Precautions Vital Signs Temperature (97.8 F-99.1 F) 97.5 F L 96.7 F L Temperature Source Temporal Temporal Pulse Rate (60-100) 64 84 Pulse Location Monitor Monitor Respiratory Rate (12-18) 16 18 Respiratory rate source Observation Observation Oxygen Delivery Method Room Air Room Air Blood Pressure (90/60-120/80) 108/43 L 105/55 L Blood Pressure Mean (mm Hg) 64 71 Source Monitor Monitor Position Sitting Semi-Fowlers Blood Pressure Location Right Forearm Left Forearm History Since Last Visit- (Skip if this is Patient's initial visit) Have you changed medications since your No No last visit? Any new allergies or adverse reactions No No Had a fall/change in ADL's that may No No increase risk of falls Signs or symptoms of abuse and/or No No neglect since last visit Have you been in the hospital since your No No last visit? Has dressing in place as prescribed Yes Yes Has compression in place as prescribed Yes Yes Has offloadiing in place as prescribed Yes Yes Experienced any changes in pain level or No No management Left Footwear Surgical Shoe Surgical Shoe with pressure with pressure relief insole relief insole Right Footwear Surgical Shoe Surgical Shoe with pressure with pressure relief insole relief insole Pain Scale: 0-10 Numeric Is Patient Pain Free? Yes Yes WC - Nurse 1 - General Ulcer Measurement Start: 06/11/23 11:12 Freq: Status: Active Protocol: Activity Type Activity Date Activity User E-sign Co-sign Detail Recorded Client Recorded Date Recorded By Document 06/11/23 11:12 [employer] Desktop 06/11/23 11:23 [employer] Document 06/18/23 11:21 KW Desktop 06/18/23 11:31 KW 06/11/23 06/18/23 11:12 11:21 Wound Center Nurse 1 #6 R DORSAL foot -Combined with other wound No -Current Size (cm) - Length 0.1 0.1 -Current Size (cm) - Width 0.1 0.1 -Current Size (cm) - Depth 0.1 0.1 -Total Square Cm 0.01 0.01 -Epithelialization None Present -Tunneling No -Undermining/Tunneling No -Circular Undermining No -Exudate Amt Medium Medium -Exudate Type Serosanguineous Serosanguineous -Wound Margin Thickened -Granulation Amt Medium (34-66%) Small (1-33%) -Granulation Quality [place] -Slough/Fibrin Yes -Necrosis Amt Medium (34-66%) Large (67-100%) -Necrotic Tissue Type Adherent Slough Adherent Slough -Texture ([place]ul[place]-wound Skin Appearance) Assessed,Callus Assessed ,Scarring -Moisture ([place]-wound Skin Appearance) Assessed,Dry/ Assessed Scaly -Color ([place]ul[place]-wound Skin Appearance) Assessed, Assessed Erythema -Temperature ([place]-wound Skin No Abnormality No Abnormality Appearance) (Pt Warm) (Pt Warm) -Tenderness on Palpation ([place]-wound No Skin Appearance) -Ulcer Cleansing Soap and Water Soap and Water -Foul Odor after Cleansing No -Anesthetic Used 4% Lidocaine 4% Lidocaine Solution Solution,5% Lidocaine Gel #5 L Med foot -Combined with other wound No -Current Size (cm) - Length 0.1 0.1 -Current Size (cm) - Width 0.1 0.1 -Current Size (cm) - Depth 0.1 0.1 -Total Square Cm 0.01 0.01 -Epithelialization None Present -Tunneling No -Undermining/Tunneling No -Circular Undermining No -Exudate Amt Medium Medium -Exudate Type Serosanguineous Serosanguineous -Wound Margin Distinct, Outline Attached -Granulation Amt Small (1-33%) -Granulation Quality [place] -Slough/Fibrin Yes -Necrosis Amt Large (67-100%) Large (67-100%) -Necrotic Tissue Type Adherent Slough Adherent Slough -Texture ([place]-wound Skin Appearance) Assessed,Callus Assessed ,Scarring -Moisture ([place]-wound Skin Appearance) Assessed,Dry/ Assessed Scaly -Color ([place]-wound Skin Appearance) Assessed Assessed -Temperature ([place]-wound Skin No Abnormality Appearance) (Pt Warm) -Tenderness on Palpation ([place]-wound No Skin Appearance) -Ulcer Cleansing Soap and Water -Foul Odor after Cleansing No -Anesthetic Used 4% Lidocaine 4% Lidocaine Solution Solution,5% Lidocaine Gel #3 R Med Foot -Combined with other wound No -Current Size (cm) - Length 0.1 0.1 -Current Size (cm) - Width 0.1 0.1 -Current Size (cm) - Depth 0.1 0.1 -Total Square Cm 0.01 0.01 -Tunneling No -Undermining/Tunneling No -Circular Undermining No -Exudate Amt Large Medium -Exudate Type Serosanguineous Serosanguineous -Wound Margin Distinct, Outline Attached -Granulation Amt Medium (34-66%) -Granulation Quality [place] -Slough/Fibrin Yes -Necrosis Amt Medium (34-66%) Large (67-100%) -Necrotic Tissue Type Adherent Slough Adherent Slough -Texture ([place]ul[place]-wound Skin Appearance) Assessed, Assessed Scarring -Moisture ([place]ul[place]-wound Skin Appearance) Assessed, Assessed Maceration,Dry/ Scaly -Color ([place]-wound Skin Appearance) Assessed, Assessed Erythema -Temperature ([place]-wound Skin No Abnormality No Abnormality Appearance) (Pt Warm) (Pt Warm) -Tenderness on Palpation ([place]-wound No Skin Appearance) -Ulcer Cleansing Soap and Water Soap and Water -Foul Odor after Cleansing No -Anesthetic Used 4% Lidocaine 4% Lidocaine Solution Solution #2 R Lat foot -Combined with other wound No -Current Size (cm) - Length 0.1 0.1 -Current Size (cm) - Width 0.1 0.1 -Current Size (cm) - Depth 0.1 0.1 -Total Square Cm 0.01 0.01 -Tunneling No -Undermining/Tunneling No -Circular Undermining No -Exudate Amt Large Medium -Exudate Type Serosanguineous Serosanguineous -Wound Margin Distinct, Outline Attached -Granulation Amt Medium (34-66%) -Granulation Quality [place] -Slough/Fibrin Yes -Necrosis Amt Medium (34-66%) Large (67-100%) -Necrotic Tissue Type Adherent Slough Adherent Slough -Texture ([place]-wound Skin Appearance) Assessed, Assessed Scarring -Moisture ([place]-wound Skin Appearance) Assessed,Dry/ Assessed Scaly -Color ([place]-wound Skin Appearance) Assessed Assessed -Temperature ([place]-wound Skin No Abnormality No Abnormality Appearance) (Pt Warm) (Pt Warm) -Tenderness on Palpation ([place]-wound No Skin Appearance) -Ulcer Cleansing Soap and Water Soap and Water -Foul Odor after Cleansing No -Anesthetic Used 4% Lidocaine 4% Lidocaine Solution Solution WC - Nurse 2 - General Ulcer CM Notes Start: 06/11/23 11:12 Freq: Status: Active Protocol: Activity Type Activity Date Activity User E-sign Co-sign Detail Recorded Client Recorded Date Recorded By Document 06/11/23 11:37 [employer]aptop 06/11/23 12:00 Document 06/18/23 13:02 [id number] 06/18/23 13:08 06/11/23 06/18/23 11:37 13:02 Wound Center Nurse 2 #12 R Plantar Foot -Time 11:49 -Correct Patient Yes -Correct Side, Site, Position Yes -Correct Procedure Yes -Procedure Performed Yes -Type of Procedure Debridement -Clinical Debridement Subcutaneous -Tissue Removed Subcutaneous -Post Debridement (cm) - Length 3.4 -Post Debridement (cm) - Width 3.2 -Post Debridement (cm) - Depth 0.2 -Total Square (Post) (cm) 10.88 -Area of Debridement (cm) - Length 3.4 -Area of Debridement (cm) - Width 3.2 -Total Square (Area) (cm) 10.88 -Tunneling No -Undermining/Tunneling No -Circular Undermining No -Wound/Ulcer Outcome Not Healed -Ulcer Cleansing Rinsed/ Irrigated with Saline -Foul Odor after Cleansing No -Bioengineered Tissue No -Bleeding Controlled with Pressure -Treatment Response Procedure Tolerated Well -Debridement - Subq, 1st 20sq cm Yes -Debridement, SubQ, ea addt'l 20sq cm 5 or part thereof #6 R DORSAL foot -Time 11:37 11:49 -Correct Patient Yes Yes -Correct Side, Site, Position Yes Yes -Correct Procedure Yes Yes -Procedure Performed Yes Yes -Type of Procedure Debridement Debridement -Clinical Debridement Subcutaneous Subcutaneous -Tissue Removed Subcutaneous Subcutaneous -Post Debridement (cm) - Length 2.0 2.2 -Post Debridement (cm) - Width 6.0 6.0 -Post Debridement (cm) - Depth 0.2 0.2 -Total Square (Post) (cm) 12.00 13.20 -Area of Debridement (cm) - Length 2.0 2.2 -Area of Debridement (cm) - Width 6.0 6.0 -Total Square (Area) (cm) 12.00 13.20 -Tunneling No No -Undermining/Tunneling No No -Circular Undermining No No -Wound/Ulcer Outcome Not Healed Not Healed -Ulcer Cleansing Rinsed/ Rinsed/ Irrigated with Irrigated with Saline Saline -Foul Odor after Cleansing No No -Bioengineered Tissue No No -Bleeding Controlled with Pressure Pressure -Treatment Response Procedure Procedure Tolerated Well Tolerated Well -Offloading No -Debridement - Subq, 1st 20sq cm Yes No -Debridement, SubQ, ea addt'l 20sq cm 4 or part thereof #5 L Med foot -Time 11:38 11:49 -Correct Patient Yes Yes -Correct Side, Site, Position Yes Yes -Correct Procedure Yes Yes -Procedure Performed Yes Yes -Type of Procedure Debridement Debridement -Clinical Debridement Subcutaneous Subcutaneous -Tissue Removed Subcutaneous Subcutaneous -Post Debridement (cm) - Length 1.8 1.0 -Post Debridement (cm) - Width 1.8 2.0 -Post Debridement (cm) - Depth 0.3 0.2 -Total Square (Post) (cm) 3.24 2.00 -Area of Debridement (cm) - Length 1.8 1.0 -Area of Debridement (cm) - Width 1.8 2.0 -Total Square (Area) (cm) 3.24 2.00 -Tunneling No No -Undermining/Tunneling No No -Circular Undermining No No -Wound/Ulcer Outcome Not Healed Not Healed -Ulcer Cleansing Rinsed/ Rinsed/ Irrigated with Irrigated with Saline Saline -Foul Odor after Cleansing No No -Bioengineered Tissue No No -Bleeding Controlled with Pressure Pressure -Treatment Response Procedure Procedure Tolerated Well Tolerated Well -Offloading No -Type of Offloading Surgical Shoe -Debridement - Subq, 20sq cm No No #3 R Med Foot -Time 11:38 11:49 -Correct Patient Yes Yes -Correct Side, Site, Position Yes Yes -Correct Procedure Yes Yes -Procedure Performed Yes Yes -Type of Procedure Debridement Debridement -Clinical Debridement Subcutaneous Subcutaneous -Tissue Removed Subcutaneous Subcutaneous -Post Debridement (cm) - Length 4.5 3.7 -Post Debridement (cm) - Width 11.5 12.5 -Post Debridement (cm) - Depth 0.3 0.3 -Total Square (Post) (cm) 51.75 46.25 -Area of Debridement (cm) - Length 4.5 3.7 -Area of Debridement (cm) - Width 11.5 12.5 -Total Square (Area) (cm) 51.75 46.25 -Tunneling No No -Undermining/Tunneling No No -Circular Undermining No No -Wound/Ulcer Outcome Not Healed Not Healed -Ulcer Cleansing Rinsed/ Irrigated with Saline -Foul Odor after Cleansing No -Bioengineered Tissue No -Bleeding Controlled with Pressure -Treatment Response Procedure Tolerated Well -Offloading Yes -Type of Offloading Surgical Shoe -Debridement - Subq, 20sq cm No No #2 R Lat foot -Time 11:39 11:49 -Correct Patient Yes Yes -Correct Side, Site, Position Yes Yes -Correct Procedure Yes Yes -Procedure Performed Yes Yes -Type of Procedure Debridement Debridement -Clinical Debridement Subcutaneous Subcutaneous -Tissue Removed Subcutaneous Subcutaneous -Post Debridement (cm) - Length 2.5 2.9 -Post Debridement (cm) - Width 10.0 11.0 -Post Debridement (cm) - Depth 0.2 0.2 -Total Square (Post) (cm) 25.00 31.90 -Area of Debridement (cm) - Length 2.5 2.9 -Area of Debridement (cm) - Width 10 11.0 -Total Square (Area) (cm) 25.0 31.90 -Tunneling No No -Undermining/Tunneling No No -Circular Undermining No No -Wound/Ulcer Outcome Not Healed Not Healed -Ulcer Cleansing Rinsed/ Rinsed/ Irrigated with Irrigated with Saline Saline -Foul Odor after Cleansing No No -Bioengineered Tissue No No -Bleeding Controlled with Pressure Pressure -Treatment Response Procedure Procedure Tolerated Well Tolerated Well -Offloading No -Debridement - Subq, 1st 20sq cm No No Pain Scale: 0-10 Numeric Is Patient Pain Free? Yes Yes WC - Nurse 3 - General Ulcer D/C NN Start: 06/11/23 11:12 Freq: Status: Active Protocol: Activity Type Activity Date Activity User E-sign Co-sign Detail Recorded Client Recorded Date Recorded By Document 06/11/23 12:16 [facility] Desktop 06/11/23 12:17 [employer] Document 06/18/23 12:33 [employer] Desktop 06/18/23 12:35 06/11/23 06/18/23 12:16 12:33 Wound Care Center Nurse 3 #6 R DORSAL foot -Ulcer Cleansing Rinsed/ Irrigated with Saline -Foul Odor after Cleansing No -Primary Dressing Applied Aquacel Extra Aquacel Extra, Fibracol Plus 4x4 -Other Dressing abd -Primary Dressing Covered/Secured with Dry Gauze & Dry Gauze & Roll Gauze, Roll Gauze, Secured with Secured with Tape Tape -Aquacel Extra 1 1 -Fibracol Plus 4x4 1 #5 L Med foot -Ulcer Cleansing Rinsed/ Irrigated with Saline -Foul Odor after Cleansing No -Primary Dressing Applied Promogran Aquacel Extra, Fibracol Plus 4x4 -Other Dressing abd -Primary Dressing Covered/Secured with Dry Gauze & Dry Gauze & Roll Gauze, Roll Gauze, Secured with Secured with Tape Tape -Aquacel Extra 1 -Fibracol Plus 4x4 1 -Promogran 1 #3 R Med Foot -Ulcer Cleansing Rinsed/ Rinsed/ Irrigated with Irrigated with Saline Saline -Foul Odor after Cleansing No -Primary Dressing Applied Aquacel Extra -Other Dressing abd -Primary Dressing Covered/Secured with Dry Gauze & Dry Gauze & Roll Gauze, Roll Gauze, Secured with Secured with Tape Tape -Aquacel Extra 0 #2 R Lat foot -Ulcer Cleansing Rinsed/ Rinsed/ Irrigated with Irrigated with Saline Saline -Foul Odor after Cleansing No -Primary Dressing Applied Aquacel Extra -Other Dressing abd -Primary Dressing Covered/Secured with Dry Gauze & Dry Gauze & Roll Gauze, Roll Gauze, Secured with Secured with Tape Tape -Aquacel Extra 0 ble -Compression Wrap Cole Wrap Cole Wrap Treatment Response Procedure Tolerated Well Pain Scale: 0-10 Numeric Is Patient Pain Free? Yes Yes WC - Visit Discharge Discharge Condition Stable Stable Ambulatory Status Wheelchair Wheelchair Transportation ecf Medication Reconcilliation completed & No provided to patient/care provider Clinical Summary of Care Provided Yes Facility Type Residential Care Facility Additional Wound Wound debrided: Left medial ankle/lower extremity Type of Debridement: Excisional debridement Anesthesia Used: 4% Lidocaine Solution Depth: Down to and including healthy tissue and in the subcutaneous layer Percentage of wound debrided: 100 Instrument Used: 5mm curette Tissue Removed: Slough and devitalized tissue Severity: Fat Layer Exposed Amount of bleeding with debridement: Mild Bleeding Controlled with: Pressure Patient tolerated procedure: Patient tolerated procedure well Additional Wound Wound debrided: Right medial ankle/lower extremity Type of Debridement: Excisional debridement Anesthesia Used: 4% Lidocaine Solution Depth: Down to and including healthy tissue and in the subcutaneous layer Percentage of wound debrided: 100 Instrument Used: 5mm curette Tissue Removed: Slough and devitalized tissue Severity: Fat Layer Exposed Amount of bleeding with debridement: Mild Bleeding Controlled with: Pressure Patient tolerated procedure: Patient tolerated procedure well Additional Wound Wound debrided: Right Dorsal Foot Type of Debridement: Excisional debridement Anesthesia Used: 4% Lidocaine Solution Depth: Down to and including healthy tissue and in the subcutaneous layer Percentage of wound debrided: 100 Instrument Used: 5mm curette Tissue Removed: Slough and devitalized tissue Severity: Fat Layer Exposed Amount of bleeding with debridement: Mild Bleeding Controlled with: Pressure Patient tolerated procedure: Patient tolerated procedure well Additional Wound Wound debrided: Right Plantar Foot Laterality: Right Type of Debridement: Excisional debridement Anesthesia Used: 4% Lidocaine Solution Depth: Down to and including healthy tissue and in the subcutaneous layer Percentage of wound debrided: 100 Instrument Used: 7mm curette Tissue Removed: Slough and devitalized tissue Severity: Fat Layer Exposed Amount of bleeding with debridement: Mild Bleeding Controlled with: Pressure Patient tolerated procedure: Patient tolerated procedure well Assessment/Plan Assessment/Plan (1) Ulcer of right lower extremity with fat layer exposed: CODE(S): L97.912 - Non-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 (2) Ulcer of left lower extremity with fat layer exposed: CODE(S): L97.922 - Non-pressure chronic ulcer of unspecified part of left lower leg with fat layer exposed (3) Ulcer of right heel and midfoot with fat layer exposed: CODE(S): L97.412 - Non-pressure chronic ulcer of right heel and midfoot with fat layer exposed (4) Polyneuropathy: CODE(S): G62.9 - Polyneuropathy, unspecified (5) Peripheral vascular disease: CODE(S): I73.9 - Peripheral vascular disease, unspecified (6) Debility: CODE(S): R53.81 - Other malaise PLAN: Plan Patient seen as a courtesy visit today. Debridement was performed as above and he tolerated it well. There was significant slough and maceration on exam today. Cultures were reviewed and were positive for Pseudomonas and Proteus. A course of ciprofloxacin was initiated per sensitivity results. Continue to recommend cleansing with soap and water prior to dressing changes, ensuring patting to dry prior to applying new dressings. With increased size of the wounds, will apply fibracol followed by Aquacel Extra to the wound beds. Then cover with super-absorbent foam dressing if available and feasible otherwise kerlix wrap with ABD. Change at least twice daily, more often as needed depending on drainage. Continue with COLE wraps for compression. Continue with leg elevation and nutrition optimization. He is scheduled for venogram with Dr. Arvizu on 07/09/22. He will return to the wound center in [address] Todd.
[2023-06-25 11:22] VITALS: BP 106/68; PULSE 66; RESP 16; TEMP 37
--- NOTE | 2023-06-25 12:38 | PCM.WC.PN ---
History of Present Illness Date of Service: 06/25/23 Chief Complaint: Nonhealing bilateral lower extremity ulcers History of Wound: Mr Wilson is an 82-year-old who was brought in here from his assisted due to nonhealing bilateral lower extremity ulcers. Has had recurrent ulcerations for over 10 years with most recent episode being more severe late last year. He was seen at the emergency room and subsequently advised to follow-up at a wound center which he did at [facility] without any significant improvement. A month ago, he was hospitalized for sepsis secondary to bilateral lower extremity ulcers. Following his admission and hospital stay, he did not return to the prior wound center. He reports a lot of drainage from his ulcers. They have been inconsistent dressing changes at his facility. He feels well otherwise and denies chills, fever. Currently has a PICC line and he is on IV vancomycin and cephalosporin. Progress of Wound: No new concerns at this time. Less maceration appreciated however no significant change in wound size. He is unsure if he is currently on antibiotics. Prescription sent in by me and PA seen last week. Objective Data Objective Data Vital Signs: Vital Signs Temp Pulse Resp BP O2 Del Method 98.6 F 66 16 106/68 Room Air 06/25/23 11:22 06/25/23 11:22 06/25/23 11:22 06/25/23 11:22 06/25/23 11:22 Oxygen Delivery Method Room Air Lab / Micro Data Micro: Microbiology 06/11/23 11:45 Wound - Right Foot Gram Stain - Final 06/11/23 11:45 Wound - Right Foot Wound Culture - Final Pseudomonas aeruginosa#2 Pseudomonas aeruginosa Proteus mirabilis 06/11/23 11:45 Wound - Right Foot Anaerobic Culture - Final No anaerobic bacteria isolated. Charges/Coding Procedures Integumentary [id number]: [id number] Samina subq tissue 20 sq cm/< Add On Codes: 13313 Samina subq tissue add-on (x3 additional square centimeter debrided, please refer to clinical note.) Physical Exam Const alert and no apparent distress General Appearance: cooperative and comfortable HEENT normocephalic, head/scalp atraumatic and hearing grossly normal bilaterally Head and Scalp: normal to inspection, normocephalic and atraumatic Neck full ROM General: normal visual inspection Resp normal respiratory effort Effort and Inspection: able to speak in complete sentences Extremity General Extremity: deformity Skin Wounds: wounds noted Neuro CN's II-XII intact bilaterally, moves all extremities and no focal motor deficits Psych mental status grossly normal Appearance: grossly normal Attitude: calm Debridement Note Debridement Note Wound debrided: Right Lateral Ankle/Foot Type of Debridement: Excisional debridement Anesthesia Used: 4% Lidocaine Solution Depth: Down to and including healthy tissue and in the subcutaneous layer Percentage of wound debrided: 100 Instrument Used: 5mm curette Tissue Removed: Slough and devitalized tissue Severity: Fat Layer Exposed Amount of bleeding with debridement: Mild Bleeding Controlled with: Pressure Patient tolerated procedure: Patient tolerated procedure well Post-Debridement Measurements and Additional Note: Post-Debridement Measurements/Treatment - Nurse 1 - General Ulcer Assessment Start: 06/11/23 11:12 Freq: Status: Active Protocol: MARTA Activity Type Activity Date Activity User E-sign Co-sign Detail Recorded Client Recorded Date Recorded By Document 06/11/23 11:12 [employer] 06/11/23 11:23 [employer] Document 06/18/23 11:21 [employer] 06/18/23 11:31 [employer] Document 06/25/23 11:22 [employer] 06/25/23 11:25 [employer] 06/11/23 06/18/23 06/25/23 11:12 11:21 11:22 - Today's Visit Information Type of service Follow-up Visit Follow-up Visit Follow-up Visit (Physician/FOOD AND BEVERAGE CONTROLLER (Physician/FOOD AND BEVERAGE CONTROLLER (Physician/FOOD AND BEVERAGE CONTROLLER ) ) ) Arrival Mode Wheelchair Wheelchair Wheelchair Transfer Assistance Other Other Transfer Assist (Other) 2 max 1 MAX Patient Identification Verified (Name & Yes Yes Yes ) Patient Requires Transmission-Based No No Precautions Vital Signs Temperature (97.8 F-99.1 F) 97.5 F L 96.7 F L 98.6 F Temperature Source Temporal Temporal Temporal Pulse Rate (60-100) 64 84 66 Pulse Location Monitor Monitor Monitor Respiratory Rate (12-18) 16 18 16 Respiratory rate source Observation Observation Observation Oxygen Delivery Method Room Air Room Air Room Air Blood Pressure (90/60-120/80) 108/43 L 105/55 L 106/68 Blood Pressure Mean (mm Hg) 64 71 80 Source Monitor Monitor Monitor Position Sitting Semi-Fowlers Sitting Blood Pressure Location Right Forearm Left Forearm Right Forearm History Since Last Visit- (Skip if this is Patient's initial visit) Have you changed medications since your No No No last visit? Any new allergies or adverse reactions No No No Had a fall/change in ADL's that may No No No increase risk of falls Signs or symptoms of abuse and/or No No No neglect since last visit Have you been in the hospital since your No No No last visit? Has dressing in place as prescribed Yes Yes No Has compression in place as prescribed Yes Yes No Has offloadiing in place as prescribed Yes Yes N/A Experienced any changes in pain level or No No No management Left Footwear Surgical Shoe Surgical Shoe Surgical Shoe with pressure with pressure with pressure relief insole relief insole relief insole Right Footwear Surgical Shoe Surgical Shoe Surgical Shoe with pressure with pressure with pressure relief insole relief insole relief insole Pain Scale: 0-10 Numeric Is Patient Pain Free? Yes Yes Yes WC - Nurse 1 - General Ulcer Measurement Start: 06/11/23 11:12 Freq: Status: Active Protocol: Activity Type Activity Date Activity User E-sign Co-sign Detail Recorded Client Recorded Date Recorded By Document 06/11/23 11:12 [employer] 06/11/23 11:23 [employer] Document 06/18/23 11:21 [employer] 06/18/23 11:31 [employer] Document 06/25/23 11:22 [employer] 06/25/23 11:25 [employer] 06/11/23 06/18/23 06/25/23 11:12 11:21 11:22 Wound Center Nurse 1 #12 R Plantar Foot -Combined with other wound No -Current Size (cm) - Length 0.1 -Current Size (cm) - Width 0.1 -Current Size (cm) - Depth 0.1 -Total Square Cm 0.01 -Texture (Yuliet-wound Skin Appearance) Assessed, Scarring -Moisture (Yuliet-wound Skin Appearance) Assessed,Dry/ Scaly -Color (Yuliet-wound Skin Appearance) Assessed -Temperature (Yuliet-wound Skin No Abnormality Appearance) (Pt Warm) -Tenderness on Palpation (Yuliet-wound No Skin Appearance) -Ulcer Cleansing Soap and Water -Foul Odor after Cleansing No -Anesthetic Used 4% Lidocaine Solution #6 R DORSAL foot -Combined with other wound No No -Current Size (cm) - Length 0.1 0.1 0.1 -Current Size (cm) - Width 0.1 0.1 0.1 -Current Size (cm) - Depth 0.1 0.1 0.1 -Total Square Cm 0.01 0.01 0.01 -Epithelialization None Present -Tunneling No No -Undermining/Tunneling No No -Circular Undermining No No -Exudate Amt Medium Medium Large -Exudate Type Serosanguineous Serosanguineous Serosanguineous -Wound Margin Thickened Thickened -Granulation Amt Medium (34-66%) Small (1-33%) Small (1-33%) -Granulation Quality Red [place] -Slough/Fibrin Yes Yes -Necrosis Amt Medium (34-66%) Large (67-100%) Large (67-100%) -Necrotic Tissue Type Adherent Slough Adherent Slough Adherent Slough -Texture (Yuliet-wound Skin Appearance) Assessed,Callus Assessed Assessed, ,Scarring Scarring -Moisture (Yuliet-wound Skin Appearance) Assessed,Dry/ Assessed Assessed Scaly -Color (Yuliet-wound Skin Appearance) Assessed, Assessed Assessed Erythema -Temperature (Yuliet-wound Skin No Abnormality No Abnormality No Abnormality Appearance) (Pt Warm) (Pt Warm) (Pt Warm) -Tenderness on Palpation (Yuliet-wound No No Skin Appearance) -Ulcer Cleansing Soap and Water Soap and Water Soap and Water -Foul Odor after Cleansing No No -Anesthetic Used 4% Lidocaine 4% Lidocaine 4% Lidocaine Solution Solution,5% Solution Lidocaine Gel #5 L Med foot -Combined with other wound No No -Current Size (cm) - Length 0.1 0.1 0.1 -Current Size (cm) - Width 0.1 0.1 0.1 -Current Size (cm) - Depth 0.1 0.1 0.1 -Total Square Cm 0.01 0.01 0.01 -Photo Taken No -Epithelialization None Present None Present -Tunneling No No -Undermining/Tunneling No No -Circular Undermining No No -Exudate Amt Medium Medium Medium -Exudate Type Serosanguineous Serosanguineous Serosanguineous -Wound Margin Distinct, Distinct, Outline Outline Attached Attached -Granulation Amt Small (1-33%) Medium (34-66%) -Granulation Quality Red [place] Red -Slough/Fibrin Yes Yes -Necrosis Amt Large (67-100%) Large (67-100%) Medium (34-66%) -Necrotic Tissue Type Adherent Slough Adherent Slough Adherent Slough -Texture (Yuliet-wound Skin Appearance) Assessed,Callus Assessed Assessed,Callus ,Scarring ,Scarring -Moisture (Yuliet-wound Skin Appearance) Assessed,Dry/ Assessed Assessed,Dry/ Scaly Scaly -Color (Yuliet-wound Skin Appearance) Assessed Assessed Assessed -Temperature (Yuliet-wound Skin No Abnormality No Abnormality Appearance) (Pt Warm) (Pt Warm) -Tenderness on Palpation (Yuliet-wound No No Skin Appearance) -Ulcer Cleansing Soap and Water Soap and Water -Foul Odor after Cleansing No No -Anesthetic Used 4% Lidocaine 4% Lidocaine 4% Lidocaine Solution Solution,5% Solution Lidocaine Gel #3 R Med Foot -Combined with other wound No No -Current Size (cm) - Length 0.1 0.1 0.1 -Current Size (cm) - Width 0.1 0.1 0.1 -Current Size (cm) - Depth 0.1 0.1 0.1 -Total Square Cm 0.01 0.01 0.01 -Photo Taken No -Epithelialization None Present -Tunneling No No -Undermining/Tunneling No No -Circular Undermining No No -Exudate Amt Large Medium Large -Exudate Type Serosanguineous Serosanguineous Serosanguineous -Wound Margin Distinct, Thickened Outline Attached -Granulation Amt Medium (34-66%) Small (1-33%) -Granulation Quality [place] -Slough/Fibrin Yes Yes -Necrosis Amt Medium (34-66%) Large (67-100%) Large (67-100%) -Necrotic Tissue Type Adherent Slough Adherent Slough Adherent Slough -Texture (Yuliet-wound Skin Appearance) Assessed, Assessed Assessed, Scarring Scarring -Moisture (Yuliet-wound Skin Appearance) Assessed, Assessed Assessed,Dry/ Maceration,Dry/ Scaly Scaly -Color (Yuliet-wound Skin Appearance) Assessed, Assessed Assessed Erythema -Temperature (Yuliet-wound Skin No Abnormality No Abnormality No Abnormality Appearance) (Pt Warm) (Pt Warm) (Pt Warm) -Tenderness on Palpation (Yuliet-wound No No Skin Appearance) -Ulcer Cleansing Soap and Water Soap and Water Soap and Water -Foul Odor after Cleansing No No -Anesthetic Used 4% Lidocaine 4% Lidocaine 4% Lidocaine Solution Solution Solution #2 R Lat foot -Combined with other wound No No -Current Size (cm) - Length 0.1 0.1 0.1 -Current Size (cm) - Width 0.1 0.1 0.1 -Current Size (cm) - Depth 0.1 0.1 0.1 -Total Square Cm 0.01 0.01 0.01 -Epithelialization None Present -Tunneling No No -Undermining/Tunneling No No -Circular Undermining No No -Exudate Amt Large Medium Large -Exudate Type Serosanguineous Serosanguineous Serosanguineous -Wound Margin Distinct, Thickened Outline Attached -Granulation Amt Medium (34-66%) Small (1-33%) -Granulation Quality Pale,Red [place] -Slough/Fibrin Yes Yes -Necrosis Amt Medium (34-66%) Large (67-100%) Large (67-100%) -Necrotic Tissue Type Adherent Slough Adherent Slough Adherent Slough -Texture (Yuliet-wound Skin Appearance) Assessed, Assessed Assessed, Scarring Scarring -Moisture (Yuliet-wound Skin Appearance) Assessed,Dry/ Assessed Assessed Scaly -Color (Yuliet-wound Skin Appearance) Assessed Assessed Assessed -Temperature (Yuliet-wound Skin No Abnormality No Abnormality No Abnormality Appearance) (Pt Warm) (Pt Warm) (Pt Warm) -Tenderness on Palpation (Yuliet-wound No No Skin Appearance) -Ulcer Cleansing Soap and Water Soap and Water Soap and Water -Foul Odor after Cleansing No No -Anesthetic Used 4% Lidocaine 4% Lidocaine 4% Lidocaine Solution Solution Solution WC - Nurse 2 - General Ulcer CM Notes Start: 06/11/23 11:12 Freq: Status: Active Protocol: Activity Type Activity Date Activity User E-sign Co-sign Detail Recorded Client Recorded Date Recorded By Document 06/11/23 11:37 Laptop 06/11/23 12:00 Document 06/18/23 13:02 PL [id number] 06/18/23 13:08 PL Document 06/25/23 11:37 Desktop 06/25/23 11:48 06/11/23 06/18/23 06/25/23 11:37 13:02 11:37 Wound Center Nurse 2 #12 R Plantar Foot -Time 11:49 -Correct Patient Yes -Correct Side, Site, Position Yes -Correct Procedure Yes -Procedure Performed Yes -Type of Procedure Debridement -Clinical Debridement Subcutaneous -Tissue Removed Subcutaneous -Post Debridement (cm) - Length 3.4 -Post Debridement (cm) - Width 3.2 -Post Debridement (cm) - Depth 0.2 -Total Square (Post) (cm) 10.88 -Area of Debridement (cm) - Length 3.4 -Area of Debridement (cm) - Width 3.2 -Total Square (Area) (cm) 10.88 -Tunneling No -Undermining/Tunneling No -Circular Undermining No -Wound/Ulcer Outcome Not Healed -Ulcer Cleansing Rinsed/ Irrigated with Saline -Foul Odor after Cleansing No -Bioengineered Tissue No -Bleeding Controlled with Pressure -Treatment Response Procedure Tolerated Well -Debridement - Subq, 1st 20sq cm Yes -Debridement, SubQ, ea addt'l 20sq cm 5 or part thereof #6 R DORSAL foot -Time 11:37 11:49 11:39 -Correct Patient Yes Yes Yes -Correct Side, Site, Position Yes Yes Yes -Correct Procedure Yes Yes Yes -Procedure Performed Yes Yes Yes -Type of Procedure Debridement Debridement Debridement -Clinical Debridement Subcutaneous Subcutaneous Subcutaneous -Tissue Removed Subcutaneous Subcutaneous Subcutaneous -Post Debridement (cm) - Length 2.0 2.2 2.5 -Post Debridement (cm) - Width 6.0 6.0 6.0 -Post Debridement (cm) - Depth 0.2 0.2 0.3 -Total Square (Post) (cm) 12.00 13.20 15.00 -Area of Debridement (cm) - Length 2.0 2.2 2.5 -Area of Debridement (cm) - Width 6.0 6.0 6.0 -Total Square (Area) (cm) 12.00 13.20 15.00 -Tunneling No No No -Undermining/Tunneling No No No -Circular Undermining No No No -Wound/Ulcer Outcome Not Healed Not Healed Not Healed -Ulcer Cleansing Rinsed/ Rinsed/ Rinsed/ Irrigated with Irrigated with Irrigated with Saline Saline Saline -Foul Odor after Cleansing No No No -Bioengineered Tissue No No No -Bleeding Controlled with Pressure Pressure Pressure -Treatment Response Procedure Procedure Procedure Tolerated Well Tolerated Well Tolerated Well -Offloading No -Debridement - Subq, 1st 20sq cm Yes No No -Debridement, SubQ, ea addt'l 20sq cm 4 or part thereof #5 L Med foot -Time 11:38 11:49 -Correct Patient Yes Yes -Correct Side, Site, Position Yes Yes -Correct Procedure Yes Yes -Procedure Performed Yes Yes -Type of Procedure Debridement Debridement -Clinical Debridement Subcutaneous Subcutaneous -Tissue Removed Subcutaneous Subcutaneous -Post Debridement (cm) - Length 1.8 1.0 -Post Debridement (cm) - Width 1.8 2.0 -Post Debridement (cm) - Depth 0.3 0.2 -Total Square (Post) (cm) 3.24 2.00 -Area of Debridement (cm) - Length 1.8 1.0 -Area of Debridement (cm) - Width 1.8 2.0 -Total Square (Area) (cm) 3.24 2.00 -Tunneling No No -Undermining/Tunneling No No -Circular Undermining No No -Wound/Ulcer Outcome Not Healed Not Healed -Ulcer Cleansing Rinsed/ Rinsed/ Irrigated with Irrigated with Saline Saline -Foul Odor after Cleansing No No -Bioengineered Tissue No No -Bleeding Controlled with Pressure Pressure -Treatment Response Procedure Procedure Tolerated Well Tolerated Well -Offloading No -Type of Offloading Surgical Shoe -Debridement - Subq, 1st 20sq cm No No #3 R Med Foot -Time 11:38 11:49 11:44 -Correct Patient Yes Yes Yes -Correct Side, Site, Position Yes Yes Yes -Correct Procedure Yes Yes Yes -Procedure Performed Yes Yes Yes -Type of Procedure Debridement Debridement Debridement -Clinical Debridement Subcutaneous Subcutaneous Subcutaneous -Tissue Removed Subcutaneous Subcutaneous Subcutaneous -Post Debridement (cm) - Length 4.5 3.7 4.0 -Post Debridement (cm) - Width 11.5 12.5 12.5 -Post Debridement (cm) - Depth 0.3 0.3 0.3 -Total Square (Post) (cm) 51.75 46.25 50.00 -Area of Debridement (cm) - Length 4.5 3.7 4.0 -Area of Debridement (cm) - Width 11.5 12.5 12.5 -Total Square (Area) (cm) 51.75 46.25 50.00 -Tunneling No No No -Undermining/Tunneling No No No -Circular Undermining No No No -Wound/Ulcer Outcome Not Healed Not Healed Not Healed -Ulcer Cleansing Rinsed/ Rinsed/ Irrigated with Irrigated with Saline Saline -Foul Odor after Cleansing No No -Bioengineered Tissue No No -Bleeding Controlled with Pressure Pressure -Treatment Response Procedure Procedure Tolerated Well Tolerated Well -Offloading Yes -Type of Offloading Surgical Shoe -Debridement - Subq, 1st 20sq cm No No Yes #2 R Lat foot -Time 11:39 11:49 11:42 -Correct Patient Yes Yes Yes -Correct Side, Site, Position Yes Yes Yes -Correct Procedure Yes Yes Yes -Procedure Performed Yes Yes Yes -Type of Procedure Debridement Debridement Debridement -Clinical Debridement Subcutaneous Subcutaneous Subcutaneous -Tissue Removed Subcutaneous Subcutaneous Subcutaneous -Post Debridement (cm) - Length 2.5 2.9 10.0 -Post Debridement (cm) - Width 10.0 11.0 2.5 -Post Debridement (cm) - Depth 0.2 0.2 0.2 -Total Square (Post) (cm) 25.00 31.90 25.00 -Area of Debridement (cm) - Length 2.5 2.9 10.0 -Area of Debridement (cm) - Width 10 11.0 2.5 -Total Square (Area) (cm) 25.0 31.90 25.00 -Tunneling No No No -Undermining/Tunneling No No No -Circular Undermining No No No -Wound/Ulcer Outcome Not Healed Not Healed Not Healed -Ulcer Cleansing Rinsed/ Rinsed/ Rinsed/ Irrigated with Irrigated with Irrigated with Saline Saline Saline -Foul Odor after Cleansing No No No -Bioengineered Tissue No No No -Bleeding Controlled with Pressure Pressure Pressure -Treatment Response Procedure Procedure Procedure Tolerated Well Tolerated Well Tolerated Well -Offloading No -Debridement - Subq, 1st 20sq cm No No No Pain Scale: 0-10 Numeric Is Patient Pain Free? Yes Yes Yes WC - Nurse 3 - General Ulcer D/C NN Start: 06/11/23 11:12 Freq: Status: Active Protocol: Activity Type Activity Date Activity User E-sign Co-sign Detail Recorded Client Recorded Date Recorded By Document 06/11/23 12:16 [facility] Desktop 06/11/23 12:17 BM Document 06/18/23 12:33 [employer] Desktop 06/18/23 12:35 KW Document 06/25/23 12:04 [facility] Desktop 06/25/23 12:06 [facility] 06/11/23 06/18/2306/25/23 12:16 12:33 12:04 Wound Care Center Nurse 3 #12 R Plantar Foot -Ulcer Cleansing Rinsed/ Irrigated with Saline -Foul Odor after Cleansing No -Primary Dressing Applied Aquacel Extra, Fibracol Plus 4x4 -Other Dressing ABD -Primary Dressing Covered/Secured with Dry Gauze & Roll Gauze, Secured with Tape -Aquacel Extra 2 -Fibracol Plus 4x4 2 #6 R DORSAL foot -Ulcer Cleansing Rinsed/ Rinsed/ Irrigated with Irrigated with Saline Saline -Foul Odor after Cleansing No No -Primary Dressing Applied Aquacel Extra Aquacel Extra, Aquacel Extra, Fibracol Plus Fibracol Plus 4x4 4x4 -Other Dressing abd ABD -Primary Dressing Covered/Secured with Dry Gauze & Dry Gauze & Dry Gauze & Roll Gauze, Roll Gauze, Roll Gauze, Secured with Secured with Secured with Tape Tape Tape -Aquacel Extra 1 1 0 -Fibracol Plus 4x4 1 0 #5 L Med foot -Ulcer Cleansing Rinsed/ Rinsed/ Irrigated with Irrigated with Saline Saline -Foul Odor after Cleansing No No -Primary Dressing Applied Promogran Aquacel Extra, Aquacel Extra, Fibracol Plus Fibracol Plus 4x4 4x4 -Other Dressing abd ABD -Primary Dressing Covered/Secured with Dry Gauze & Dry Gauze & Dry Gauze & Roll Gauze, Roll Gauze, Roll Gauze, Secured with Secured with Secured with Tape Tape Tape -Aquacel Extra 1 0 -Fibracol Plus 4x4 1 0 -Promogran 1 #3 R Med Foot -Ulcer Cleansing Rinsed/ Rinsed/ Rinsed/ Irrigated with Irrigated with Irrigated with Saline Saline Saline -Foul Odor after Cleansing No No -Primary Dressing Applied Aquacel Extra Aquacel Extra, Fibracol Plus 4x4 -Other Dressing abd ABD -Primary Dressing Covered/Secured with Dry Gauze & Dry Gauze & Dry Gauze & Roll Gauze, Roll Gauze, Roll Gauze, Secured with Secured with Secured with Tape Tape Tape -Aquacel Extra 0 0 -Fibracol Plus 4x4 0 #2 R Lat foot -Ulcer Cleansing Rinsed/ Rinsed/ Rinsed/ Irrigated with Irrigated with Irrigated with Saline Saline Saline -Foul Odor after Cleansing No No -Primary Dressing Applied Aquacel Extra Aquacel Extra, Fibracol Plus 4x4 -Other Dressing abd ABD -Primary Dressing Covered/Secured with Dry Gauze & Dry Gauze & Roll Gauze, Roll Gauze, Secured with Secured with Tape Tape -Aquacel Extra 0 0 -Fibracol Plus 4x4 0 ble -Compression Wrap Cole Wrap Cole Wrap Cole Wrap Treatment Response Procedure Procedure Tolerated Well Tolerated Well Pain Scale: 0-10 Numeric Is Patient Pain Free? Yes Yes Yes WC - Visit Discharge Discharge Condition Stable Stable Stable Ambulatory Status Wheelchair Wheelchair Wheelchair Transportation ecf ECF Medication Reconcilliation completed & No provided to patient/care provider Clinical Summary of Care Provided Yes Facility Type [facility]idential [facility] Facility Additional Wound Wound debrided: Left medial ankle/lower extremity Type of Debridement: Excisional debridement Anesthesia Used: 4% Lidocaine Solution Depth: Down to and including healthy tissue and in the subcutaneous layer Percentage of wound debrided: 100 Instrument Used: 5mm curette Tissue Removed: Slough and devitalized tissue Severity: Fat Layer Exposed Amount of bleeding with debridement: Mild Bleeding Controlled with: Pressure Patient tolerated procedure: Patient tolerated procedure well Additional Wound Wound debrided: Right medial ankle/lower extremity Type of Debridement: Excisional debridement Anesthesia Used: 4% Lidocaine Solution Depth: Down to and including healthy tissue and in the subcutaneous layer Percentage of wound debrided: 100 Instrument Used: 5mm curette Tissue Removed: Slough and devitalized tissue Severity: Fat Layer Exposed Amount of bleeding with debridement: Mild Bleeding Controlled with: Pressure Patient tolerated procedure: Patient tolerated procedure well Additional Wound Wound debrided: Right Dorsal Foot Type of Debridement: Excisional debridement Anesthesia Used: 4% Lidocaine Solution Depth: Down to and including healthy tissue and in the subcutaneous layer Percentage of wound debrided: 100 Instrument Used: 5mm curette Tissue Removed: Slough and devitalized tissue Severity: Fat Layer Exposed Amount of bleeding with debridement: Mild Bleeding Controlled with: Pressure Patient tolerated procedure: Patient tolerated procedure well Additional Wound Tissue Removed: Slough and devitalized tissue Assessment/Plan Assessment/Plan (1) Ulcer of right lower extremity with fat layer exposed: CODE(S): L97.912 - Non-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 (2) Ulcer of left lower extremity with fat layer exposed: CODE(S): L97.922 - Non-pressure chronic ulcer of unspecified part of left lower leg with fat layer exposed (3) Ulcer of right heel and midfoot with fat layer exposed: CODE(S): L97.412 - Non-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 Less maceration appreciated today. He does not believe he is on antibiotics however, antibiotics were called in by me and as above the PA who he saw last week for a courtesy visit. Will speak with facility to clarify this. Do not recommend more than 7 days of antibiotics. Continue cleaning with soap and water prior to dressing changes. Continue Fibracol, Aquacel extra, cover with foam dressing to all ulcers. Change twice daily or more depending on drainage. Cole wraps to both extremities for edema management. Leg elevation, optimized protein and nutrition recommended. Continue FU with Vascular, will review records. His questions were answered and he was advised to let us know if he has any further questions or concerns. Follow-up in 1 week. This note was generated with [employer] software. It may contain incorrect words, spelling, and punctuation that were not noted in checking the note before signing.
--- NOTE | 2023-06-25 14:59 | WC ---
Spoke to Janet the nurse at [facility] clarifying that patient only needs the Cipro prescription that Dr Todd wrote for 7 days. The script that was written from [facility] was not started since they had already started the prescription from Dr Todd. Janet said he has completed the regimen from Dr Todd.
== END 2023-06-28 23:59 | disposition home or self-care (01) ==
LOC: WC 11:15
PROVIDERS: PCP Family Medicine; Referring Provider Family Medicine; Visit Provider Internal Medicine
DX: L97.922 Non-pressure chronic ulcer of unspecified part of left lower leg with fat layer exposed (principal); L97.412 Non-pressure chronic ulcer of right heel and midfoot with fat layer exposed; L97.912 Non-pressure chronic ulcer of unspecified part of right lower leg with fat layer exposed; I73.9 Peripheral vascular disease, unspecified; R53.81 Other malaise; G62.9 Polyneuropathy, unspecified
CPT/HCPCS: 11042; 11045; 87070; 87075; 87077; 87186; 87205

== ENCOUNTER 2023-07-09 06:27 | Day surgery (SDC) | payer MEDICARE, BC, SELFPAY ==
[2023-07-09 06:38] LABS: INR Fingerstick 1.4; Prothrombin Time Fingerstick 16.1 SEC (11.7-14.9)
[2023-07-09 06:51] VITALS: BMI 23.4
[2023-07-09 07:02] LABS: Hematocrit 38.3 % (40-54); Hemoglobin 11.6 g/dL (13.0-16.5); Mean Corp Hgb Conc 30.3 g/dL (32-36); Mean Corpuscular Hgb 29.1 pg (27.0-32.0); Mean Corpuscular Volume 96.2 fL (80-94); Mean Platelet Vol. 9.9 fl (6.2-12.0); Platelet Count 285 K/mm3 (150-450); RBC Distribution Width CV 13.7 % (11.6-14.6); RBC Distribution Width SD 48.4 fl (35.1-43.9); Red Blood Count 3.98 M/mm3 (4.6-6.2)
[2023-07-09 07:34] LABS: Anion Gap 4 (5-15); BUN 27 mg/dL (7-18); BUN/Creat Ratio 23.9 RATIO (10-20); Calcium,Total 8.9 mg/dL (8.5-10.1); Chloride 104 mmol/L (98-107); Creatinine, Serum 1.13 mg/dL (0.70-1.30); EST Glomerular Filtration Rate 66 mL/min (>60); Est Glom Filt Rate - Afr Amer 79 mL/min (>60); Estimated Creatinine Clearance 53.41 ml/min; Glucose 85 mg/dL (74-106); Potassium 3.7 mmol/L (3.5-5.1); Sodium Level 139 mmol/L (136-145)
--- NOTE | 2023-07-09 08:03 | PCM.HP.STD ---
HPI - General HPI Narrative CAMPBELL GOMEZ, is a 83 M who presents with right lower extremity chronic edema, skin pigment changes and ulceration consistent with venous insufficiency. He had a reflux study which was normal so he presents now for venogram to assess and possibly treat central venous obstruction. [facility] Medical History Debility Diabetes Heart failure Hyperlipidemia Hypertension Peripheral vascular disease Polyneuropathy Ulcer of left lower extremity with fat layer exposed Ulcer of right heel and midfoot with fat layer exposed Ulcer of right lower extremity with fat layer exposed Vascular dementia Home Medications atorvastatin 40 mg tablet 40 mg PO QHS 10/09/22 [History Last Taken Unknown] cefepime 2 gram solution for injection 2 g IV Q24H 10/09/22 [History Last Taken Unknown] cyanocobalamin (vitamin B-12) 500 mcg tablet 500 mcg PO DAILY 10/09/22 [History Last Taken Unknown] diphenhydramine 25 mg-acetaminophen 500 mg tablet (Acetaminophen PM Extra Strength) 2 tab PO QHS PRN Pain 10/09/22 [History Last Taken Unknown] docusate sodium 100 mg capsule 100 mg PO BID 10/09/22 [History Last Taken Unknown] furosemide 40 mg tablet (Lasix) 40 mg PO DAILY 10/09/22 [History Last Taken Unknown] gabapentin 300 mg capsule 300 mg PO TID 10/09/22 [History Last Taken Unknown] magnesium hydroxide 400 mg/5 mL oral suspension (Milk of Magnesia) 30 ml PO DAILY PRN Constipation 10/09/22 [History Last Taken Unknown] metformin 500 mg tablet,extended release 24 hr 500 mg PO DAILY 10/09/22 [History Last Taken Unknown] multivitamin 1 tab PO DAILY 10/09/22 [History Last Taken Unknown] polyethylene glycol 3350 17 gram oral powder packet (Miralax) 17 g PO DAILY 10/09/22 [History Last Taken Unknown] sennosides 8.6 mg capsule (senna) 8.6 mg PO DAILY 10/09/22 [History Last Taken Unknown] tamsulosin 0.4 mg capsule 0.8 mg PO QHS 10/09/22 [History Last Taken Unknown] vancomycin 750 mg intravenous solution 750 mg IV DAILY 10/09/22 [History Last Taken Unknown] warfarin 5 mg tablet 5 mg PO DAILY 10/09/22 [History Last Taken Unknown] ciprofloxacin HCl 500 mg tablet 500 mg PO BID #14 tabs 06/15/23 [Rx Last Taken Unknown] Allergy/AdvReac Type Severity Reaction Status Date / Time No Known Allergies Allergy Verified 06/03/23 13:59 Social History Smoking Status: Never smoker ROS Constitutional Constitutional: Denies chills, fever(s), frequent falls, lethargy or weakness Eyes Eyes: Denies blind spots, change in vision or loss of vision ENT HEENT: Denies bleeding gums, hoarseness or sore throat Cardiovascular Cardiovascular: Denies abdominal pain, bluish discoloration of hand/feet, chest pain with activity, claudication, cold extremities, cyanosis, dyspnea on exertion, erythema on extremities, irregular heart rhythm, leg edema, leg ulcers, numbness in extremities or weakness in extremities Respiratory/Chest Respiratory/Chest: Denies cough, excessive phlegm production, shortness of breath at rest, shortness of breath with exertion or wheezing Gastrointestinal Gastrointestinal: Denies anorexia, change in stool character, constipation, diarrhea, melena or rectal bleeding Genitourinary Genitourinary: Denies dysuria or hematuria Musculoskeletal Musculoskeletal: Denies abnormal gait Integumentary Integumentary: Reports other Details: ; Denies erythema, non-healing lesions or wounds Neurologic Neurologic: Denies abnormal speech, focal weakness, headache(s), loss of vision, numbness, paresthesias or sensory deficit Hematologic/Lymphatic Hematologic/Lymphatic: Denies easy bleeding, easy bruising or lymphadenopathy Vital Signs Vital Signs Vital Signs: Weight Weight: 173 lb Body Mass Index (BMI) 23.4 Physical Exam Const alert, oriented x3, no apparent distress and healthy appearing General Appearance: cooperative; Negative for combative or lethargic Orientation / Consciousness: awake Exam Limitations: no limitations HEENT Head and Scalp: normocephalic and atraumatic Eyes EOMs intact bilaterally General Eye: normal appearance of both eyes Neck full ROM, no lymphadenopathy, thyroid normal and No no carotid bruits General: trachea midline; Negative for lymphadenopathy or tenderness Thyroid: thyroid normal Lymph Lymphatic: Negative for no lymphadenopathy noted Resp normal respiratory effort, no use of accessory muscles and clear to auscultation bilaterally Effort and Inspection: Negative for labored, stridor or audible wheezes Cardio regular rate, regular rhythm and no murmurs Peripheral Pulses: brachial pulses present, radial pulses present, femoral pulses present, popliteal pulses present, posterior tibial pulses present and dorsalis pedis pulses present Back/Spine Cervical Spine: cervical ROM normal Extremity full ROM, normal capillary refill and no clubbing, cyanosis or edema Skin no rashes or lesions noted and no wounds Neuro oriented x3, CN's II-XII intact bilaterally, no focal motor deficits and no sensory deficits noted Psych thought process normal, cooperative, affect normal, speech normal and activity/motor behavior normal Results Lab / Micro Data 07/09/23 06:46 07/09/23 06:46 Labs: Laboratory Results - last 24 hr 07/09/23 06:36: POC PT 16.1 H, INR 1.4 07/09/23 06:46: WBC 4.0 L, RBC 3.98 L, Hgb 11.6 L, Hct 38.3 L, MCV 96.2 H, MCH 29.1, MCHC 30.3 L, RDW Std Deviation 48.4 H, RDW Coeff of Dee 13.7, Plt Count 285, MPV 9.9, Sodium 139, Potassium 3.7, Chloride 104, Carbon Dioxide 31.0, Anion Gap 4 L, BUN 27 H, Creatinine 1.13, Estim Creat Clear Calc 53.41, Est GFR (MDRD) Af Amer 79, Est GFR (MDRD) Non-Af 66, BUN/Creatinine Ratio 23.9 H, Glucose 85, Calcium 8.9 Assessment & Plan Assessment/Plan (1) Bilateral lower extremity edema: PLAN: -venogram
--- NOTE | 2023-07-09 12:43 | OP.PCM_ITS ---
Report of Operation Date of Procedure: 07/09/23 Pre-Operative Diagnosis: venous insufficiency with ulceration Post-Operative Diagnosis: same Surgery/Procedure Performed:: IVC venogram IVUS IVC, bilateral common/external iliac veins angioplasty/stent bilateral common iliac veins Surgeon: Hossein Arvizu Type of Anesthesia: Local and Sedation,Conscious Estimated Blood Loss (mL): 3 Description of Procedure: HPI: Patient is an 83-year-old male with venous insufficiency with ulceration who presents now for venogram with possible invention. Description of procedure: Upon obtaining informed consent and verification correct patient procedure site patient taken to the Inventory Management Specialist was positioned prepped and draped in usual fashion. Time was performed conscious sedation ad ministered with Versed and fentanyl. The right common femoral vein was anesthetized 1% lidocaine the vessel accessed with micropuncture needle wire under ultrasound guidance. This was exchanged for micropuncture sheath through which hand-injection ilio caval venogram was performed revealing satisfactory placement no extravasation or dissection. Through this a Bentson wire was advanced and micropuncture sheath exchanged for a 10 Bhutanese sheath. Next skin overlying the left common femoral vein was anesthetized 1% lidocaine the vessel accessed under ultrasound guidance with micropuncture needle wire. This was exchanged for micropuncture sheath through which injection ilio caval venogram was performed feeling satisfactory position with no extravasation dissection. This also revealed widening of the left common iliac vein. Through the micropuncture sheath a Bentson wire was advanced the micropuncture sheath exchanged out for a 10 [place]ut[place] sheath. Intravascular shunt probe was then broug ht in field prep for administrative clerk instructions. This was then advanced over the wire via the right femoral access sheath and recorded pullback to the IVC, right common iliac vein, right external venous performed. This revealed a 48% compression of the right common iliac vein just below the confluence. Next device withdrawn and advanced via the left femoral access sheath and recorded pullback performed of the IVC, left common iliac vein, left external iliac vein. This revealed a 50% compression of the mid proximal left common iliac vein. With the degree of compression on the left, its proximity to the confluence, and no infra inguinal reflux to explain his open venous ulcerations is felt that treatment of the compression was appropriate. In addition in order to adequately treat the left iliac vein there would be need to extend into the IVC so the right iliac vein would be stented as well. A Bard VeNovo 16 x 160 was then brought to field prep for administrative clerk instructions. He was advanced to the right femoral access sheath put into position. Next a Bard Venovo 16 x 120 brought on the field prep for administrative clerk instruction advanced via the left femoral access sheath. This was then aligned with the right-sided stent and the 2 stents deployed simultaneously maintaining alignment in the IVC. The delivery system was withdrawn and the right IVC iliac stent was postdilated with a 14 x 40 angioplasty balloon. Simultaneously the left iliac vein stents were also postdilated with a 14 x 40 angioplasty balloon. The balloon was then withdrawn and recorded pullback with intravesical ultrasound via each of the access sites confirmed satisfactory stent positioning with no residual compression, satisfactory stent wall apposition and satisfactory alignment. The ultrasound probe was then withdrawn and the wires and sheath withdrawn after which suture was placed in the skin and manual pressure held with satisfactory stasis. Patient was taken the recovery room for bedrest prior to discharge. Grafts/Implants Used: Bard Venovo 16 x 160 right iliac, [id number] left
== END 2023-07-09 13:40 | disposition home or self-care (01) ==
PROVIDERS: PCP Family Medicine; Referring Provider Surgery Trauma Surgery; Visit Provider Surgery Trauma Surgery
DX: I87.2 Venous insufficiency (chronic) (peripheral) (principal); L98.498 Non-pressure chronic ulcer of skin of other sites with other specified severity; E11.59 Type 2 diabetes mellitus with other circulatory complications; E11.42 Type 2 diabetes mellitus with diabetic polyneuropathy; I87.1 Compression of vein; Z79.84 Long term (current) use of oral hypoglycemic drugs; E78.5 Hyperlipidemia, unspecified; R60.0 Localized edema
CPT/HCPCS: 36010; 36415; 36416; 37221; 37238; 37252; 37253; 75825; 76937; 80048; 85027; 85610; 99152; 99153; C1753; C1769; C1894; J7040; Q9967; C1725; C1876

== ENCOUNTER 2023-07-23 11:30 | Outpatient (RCR) | payer MEDICARE, BC, SELFPAY ==
[2023-06-29 00:19] VITALS: BP 106/68; PULSE 66; RESP 16; TEMP 37
[2023-07-02 11:42] VITALS: BP 101/56; PULSE 68; RESP 16; TEMP 36.8
[2023-07-16 11:06] VITALS: BP 99/61; PULSE 67; RESP 16; TEMP 36.6
--- NOTE | 2023-07-16 12:47 | PN.PCM_ITS ---
History of Present Illness Date of Service: 07/16/23 Chief Complaint: Nonhealing bilateral lower extremity ulcers History of Wound: Mr Wilson is an 82-year-old who [facility] due to nonhealing bilateral lower extremity ulcers. Has had recurrent ulcerations for over 10 years with most recent episode being more severe late last year. He was seen at the emergency room and subsequently advised to follow-up at a wound center which he did at [facility] without any significant improvement. A month ago, he was hospitalized for sepsis secondary to bilateral lower extremity ulcers. Following his admission and hospital stay, he did not return to the prior wound center. He reports a lot of drainage from his ulcers. They have been inconsistent dressing changes at his facility. He feels well otherwise and denies chills, fever. Currently has a PICC line and he is on IV vancomycin and cephalosporin. Progress of Wound: No new concerns at this time. Had a venogram recently with stent placement in the IVC. Objective Data Objective Data Vital Signs: Vital Signs Temp Pulse Resp BP O2 Del Method 98 F 67 16 99/61 Room Air 07/16/23 11:06 07/16/23 11:06 07/16/23 11:06 07/16/23 11:06 07/16/23 11:06 Oxygen Delivery Method Room Air Charges/Coding Procedures Integumentary 111xxx-113xx: [id number] Samina subq tissue 20 sq cm/< Add On Codes: 98621 Samina subq tissue add-on (x3 additional square centimeter debrided, please refer to clinical note.) Physical Exam Const alert, oriented x3, no apparent distress and healthy appearing General Appearance: cooperative; Negative for combative or lethargic Orientation / Consciousness: awake Exam Limitations: no limitations HEENT Head and Scalp: normocephalic and atraumatic Eyes EOMs intact bilaterally General Eye: normal appearance of both eyes Neck full ROM and supple General: normal visual inspection Resp normal respiratory effort Back/Spine Cervical Spine: cervical ROM normal Extremity full ROM General Extremity: edema Skin Wounds: wounds noted Neuro oriented x3 Psych thought process normal, cooperative, affect normal, speech normal and activity/motor behavior normal Debridement Note Debridement Note Wound debrided: Right Lateral Ankle/Foot Type of Debridement: Excisional debridement Anesthesia Used: 4% Lidocaine Solution Depth: Down to and including healthy tissue and in the subcutaneous layer Percentage of wound debrided: 100 Instrument Used: 5mm curette Tissue Removed: Slough and devitalized tissue Severity: Fat Layer Exposed Amount of bleeding with debridement: Mild Bleeding Controlled with: Pressure Patient tolerated procedure: Patient tolerated procedure well Post-Debridement Measurements and Additional Note: Post-Debridement Measurements/Treatment - Nurse 1 - General Ulcer Assessment Start: 07/02/23 11:42 Freq: Status: Active Protocol: SASHA.LOWEXT Activity Type Activity Date Activity User E-sign Co-sign Detail Recorded Client Recorded Date Recorded By Document 07/02/23 11:42 [facility] Desktop 07/02/23 11:47 BM Document 07/16/23 11:06 [facility] Desktop 07/16/23 11:12 [facility] 07/02/23 07/16/23 11:42 11:06 - Today's Visit Information Type of service Follow-up Visit Follow-up Visit (Physician/PHARMACY CLINICAL SPECIALIST (Physician/PHARMACY CLINICAL SPECIALIST ) ) Arrival Mode Wheelchair Wheelchair Transfer Assistance Other Other Transfer Assist (Other) 2 2 Patient Identification Verified (Name & Yes Yes ) Patient Requires Transmission-Based No No Precautions Vital Signs Temperature (97.8 F-99.1 F) 98.2 F 98 F Temperature Source Temporal Temporal Pulse Rate (60-100) 68 67 Pulse Location Monitor Monitor Respiratory Rate (12-18) 16 16 Respiratory rate source Observation Observation Oxygen Delivery Method Room Air Room Air Blood Pressure (90/60-120/80) 101/56 L 99/61 Blood Pressure Mean (mm Hg) 71 73 Source Monitor Monitor Position Sitting Sitting Blood Pressure Location Right Forearm Right Forearm History Since Last Visit- (Skip if this is Patient's initial visit) Have you changed medications since your No No last visit? Any new allergies or adverse reactions No No Had a fall/change in ADL's that may No No increase risk of falls Signs or symptoms of abuse and/or No No neglect since last visit Have you been in the hospital since your No No last visit? Has dressing in place as prescribed No Yes Has compression in place as prescribed No Yes Has offloadiing in place as prescribed N/A N/A Experienced any changes in pain level or No No management Left Footwear Surgical Shoe Surgical Shoe with pressure with pressure relief insole relief insole Right Footwear Surgical Shoe Surgical Shoe with pressure with pressure relief insole relief insole Pain Scale: 0-10 Numeric Is Patient Pain Free? Yes Yes WC - Nurse 1 - General Ulcer Measurement Start: 07/02/23 11:42 Freq: Status: Active Protocol: Activity Type Activity Date Activity User E-sign Co-sign Detail Recorded Client Recorded Date Recorded By Document 07/02/23 11:42 [facility] Desktop 07/02/23 11:47 BMF Document 07/16/23 11:06 BM Desktop 07/16/23 11:12 BMF 07/02/23 07/16/23 11:42 11:06 Wound Center Nurse 1 #6 R DORSAL foot -Combined with other wound No No -Current Size (cm) - Length 0.1 0.1 -Current Size (cm) - Width 0.1 0.1 -Current Size (cm) - Depth 0.1 0.1 -Total Square Cm 0.01 0.01 -Date of Last Picture (Recall this 07/16/23 field) -Photo Taken No Yes -Epithelialization None Present -Tunneling No -Undermining/Tunneling No -Circular Undermining No -Exudate Amt Large Large -Exudate Type Serosanguineous Serosanguineous -Wound Margin Distinct, Distinct, Outline Outline Attached Attached -Granulation Amt Medium (34-66%) -Granulation Quality [place] -Slough/Fibrin Yes -Necrosis Amt Medium (34-66%) -Necrotic Tissue Type Eschar -Texture (Yuliet-wound Skin Appearance) Assessed, Assessed, Scarring Scarring -Moisture (Yuliet-wound Skin Appearance) Assessed, Assessed,Dry/ Maceration,Dry/ Scaly Scaly -Color (Yuliet-wound Skin Appearance) Assessed, Assessed Erythema -Temperature ([place]ul[place]-wound Skin No Abnormality No Abnormality Appearance) (Pt Warm) (Pt Warm) -Tenderness on Palpation (Yuliet-wound No No Skin Appearance) -Ulcer Cleansing Soap and Water Soap and Water -Foul Odor after Cleansing No No -Anesthetic Used 4% Lidocaine 4% Lidocaine Solution Solution #5 L Med foot -Combined with other wound No No -Current Size (cm) - Length 0.1 0.1 -Current Size (cm) - Width 0.1 0.1 -Current Size (cm) - Depth 0.1 0.1 -Total Square Cm 0.01 0.01 -Date of Last Picture (Recall this 07/16/23 field) -Photo Taken No Yes -Epithelialization None Present -Tunneling No -Undermining/Tunneling No -Circular Undermining No -Exudate Amt Medium Medium -Exudate Type Serosanguineous Serosanguineous -Wound Margin Distinct, Outline Attached -Granulation Amt Small (1-33%) -Granulation Quality Red -Slough/Fibrin Yes -Necrosis Amt Large (67-100%) -Necrotic Tissue Type Adherent Slough -Texture (Yul[place]-wound Skin Appearance) Assessed,Callus Assessed, ,Scarring Scarring -Moisture (Yuliet-wound Skin Appearance) Assessed,Dry/ Assessed,Dry/ Scaly Scaly -Color (Yuliet-wound Skin Appearance) Assessed Assessed -Temperature ([place]ul[place]-wound Skin No Abnormality No Abnormality Appearance) (Pt Warm) (Pt Warm) -Tenderness on Palpation (Yuliet-wound No No Skin Appearance) -Ulcer Cleansing Soap and Water Soap and Water -Foul Odor after Cleansing No No -Anesthetic Used 4% Lidocaine 4% Lidocaine Solution Solution #3 R Med Foot -Combined with other wound No No -Current Size (cm) - Length 0.1 0.1 -Current Size (cm) - Width 0.1 0.1 -Current Size (cm) - Depth 0.1 0.1 -Total Square Cm 0.01 0.01 -Date of Last Picture (Recall this 07/16/23 field) -Photo Taken No Yes -Epithelialization None Present -Tunneling No No -Undermining/Tunneling No No -Circular Undermining No No -Exudate Amt Large Large -Exudate Type Serosanguineous Serosanguineous -Wound Margin Thickened & Distinct, Rolled Under Outline Attached -Granulation Amt Large (67-100%) -Granulation Quality Pale,[place] -Slough/Fibrin Yes -Necrosis Amt Medium (34-66%) -Necrotic Tissue Type Adherent Slough -Texture (Yuliet-wound Skin Appearance) Assessed, Assessed, Scarring Scarring -Moisture ([place]ul[place]-wound Skin Appearance) Assessed,Dry/ Assessed Scaly -Color (Yuliet-wound Skin Appearance) Assessed Assessed -Temperature ([place]ul[place]-wound Skin No Abnormality No Abnormality Appearance) (Pt Warm) (Pt Warm) -Tenderness on Palpation (Yuliet-wound No No Skin Appearance) -Ulcer Cleansing Soap and Water Soap and Water -Foul Odor after Cleansing No No -Anesthetic Used 4% Lidocaine 4% Lidocaine Solution Solution #2 R Lat foot -Combined with other wound No No -Current Size (cm) - Length 0.1 0.1 -Current Size (cm) - Width 0.1 0.1 -Current Size (cm) - Depth 0.1 0.1 -Total Square Cm 0.01 0.01 -Date of Last Picture (Recall this 07/16/23 field) -Photo Taken No Yes -Epithelialization None Present -Tunneling No No -Undermining/Tunneling No No -Circular Undermining No No -Exudate Amt Large Large -Exudate Type Serosanguineous Serosanguineous -Wound Margin Distinct, Distinct, Outline Outline Attached Attached -Granulation Amt Small (1-33%) -Granulation Quality Pale,[place] -Slough/Fibrin Yes -Necrosis Amt Large (67-100%) -Necrotic Tissue Type Eschar -Texture (Yuliet-wound Skin Appearance) Assessed, Assessed, Scarring Scarring -Moisture (Yuliet-wound Skin Appearance) Assessed, Assessed Maceration,Dry/ Scaly -Color (Yuliet-wound Skin Appearance) Assessed Assessed -Temperature ([place]ul[place]-wound Skin No Abnormality No Abnormality Appearance) (Pt Warm) (Pt Warm) -Tenderness on Palpation (Yuliet-wound No No Skin Appearance) -Ulcer Cleansing Soap and Water Soap and Water -Foul Odor after Cleansing No No -Anesthetic Used 4% Lidocaine 4% Lidocaine Solution Solution WC - Nurse 2 - General Ulcer CM Notes Start: 07/02/23 11:42 Freq: Status: Active Protocol: Activity Type Activity Date Activity User E-sign Co-sign Detail Recorded Client Recorded Date Recorded By Document 07/02/23 11:56 [employer] 07/02/23 12:12 Document 07/16/23 11:26 Desktop 07/16/23 11:40 07/02/23 07/16/23 11:56 11:26 Wound Center Nurse 2 #6 R DORSAL foot -Time 11:56 11:26 -Correct Patient Yes Yes -Correct Side, Site, Position Yes Yes -Correct Procedure Yes Yes -Procedure Performed Yes Yes -Type of Procedure Debridement Debridement -Clinical Debridement Subcutaneous Subcutaneous -Tissue Removed Subcutaneous Subcutaneous -Post Debridement (cm) - Length 2.2 2.5 -Post Debridement (cm) - Width 6.0 6.0 -Post Debridement (cm) - Depth 0.3 0.4 -Total Square (Post) (cm) 13.20 15.00 -Area of Debridement (cm) - Length 2.2 2.5 -Area of Debridement (cm) - Width 6 6.0 -Total Square (Area) (cm) 13.2 15.00 -Tunneling No No -Undermining/Tunneling No No -Circular Undermining No No -Wound/Ulcer Outcome Not Healed Not Healed -Ulcer Cleansing Rinsed/ Rinsed/ Irrigated with Irrigated with Saline Saline -Foul Odor after Cleansing No No -Bioengineered Tissue No No -Bleeding Controlled with Pressure Pressure -Treatment Response Procedure Procedure Tolerated Well Tolerated Well -Offloading Yes -Type of Offloading Wedge Shoe -Assistive Device(s) Wheelchair -Debridement - Subq, 1st 20sq cm No No #5 L Med foot -Time 11:56 11:28 -Correct Patient Yes Yes -Correct Side, Site, Position Yes Yes -Correct Procedure Yes Yes -Procedure Performed Yes Yes -Type of Procedure Debridement Debridement -Clinical Debridement Subcutaneous Subcutaneous -Tissue Removed Subcutaneous Subcutaneous -Post Debridement (cm) - Length 1.2 1.5 -Post Debridement (cm) - Width 1.7 1.5 -Post Debridement (cm) - Depth 0.2 0.2 -Total Square (Post) (cm) 2.04 2.25 -Area of Debridement (cm) - Length 1.2 1.5 -Area of Debridement (cm) - Width 1.7 1.5 -Total Square (Area) (cm) 2.04 2.25 -Tunneling No No -Undermining/Tunneling No No -Circular Undermining No No -Wound/Ulcer Outcome Not Healed Not Healed -Ulcer Cleansing Not Cleansed Rinsed/ Irrigated with Saline -Foul Odor after Cleansing No No -Bioengineered Tissue No No -Bleeding Controlled with Pressure Pressure -Treatment Response Procedure Procedure Tolerated Well Tolerated Well -Offloading Yes -Type of Offloading Wedge Shoe -Total Non-Weight Bearing to Left Lower Extremity -Assistive Device(s) Wheelchair -Debridement - Subq, 1st 20sq cm No No #3 R Med Foot -Time 11:57 11:29 -Correct Patient Yes Yes -Correct Side, Site, Position Yes Yes -Correct Procedure Yes Yes -Procedure Performed Yes Yes -Type of Procedure Debridement Debridement -Clinical Debridement Subcutaneous Subcutaneous -Tissue Removed Subcutaneous Subcutaneous -Post Debridement (cm) - Length 3.5 2.5 -Post Debridement (cm) - Width 11 12 -Post Debridement (cm) - Depth 0.3 0.3 -Total Square (Post) (cm) 38.5 30.0 -Area of Debridement (cm) - Length 3.5 2.5 -Area of Debridement (cm) - Width 11 2.5 -Total Square (Area) (cm) 38.5 6.25 -Tunneling No No -Undermining/Tunneling No No -Circular Undermining No No -Wound/Ulcer Outcome Not Healed Not Healed -Ulcer Cleansing Rinsed/ Rinsed/ Irrigated with Irrigated with Saline Saline -Foul Odor after Cleansing No No -Bioengineered Tissue No No -Bleeding Controlled with Pressure Pressure -Treatment Response Procedure Procedure Tolerated Well Tolerated Well -Debridement - Subq, 1st 20sq cm No Yes -Debridement, SubQ, ea addt'l 20sq cm 3 or part thereof #2 R Lat foot -Time 11:57 11:30 -Correct Patient Yes Yes -Correct Side, Site, Position Yes Yes -Correct Procedure Yes Yes -Procedure Performed Yes Yes -Type of Procedure Debridement Debridement -Clinical Debridement Subcutaneous Subcutaneous -Tissue Removed Subcutaneous Subcutaneous -Post Debridement (cm) - Length 2.5 2.0 -Post Debridement (cm) - Width 9.7 9.5 -Post Debridement (cm) - Depth 0.2 0.3 -Total Square (Post) (cm) 24.25 19.00 -Area of Debridement (cm) - Length 2.5 2.0 -Area of Debridement (cm) - Width 9.7 9.5 -Total Square (Area) (cm) 24.25 19.00 -Tunneling No No -Undermining/Tunneling No No -Circular Undermining No No -Wound/Ulcer Outcome Not Healed Not Healed -Ulcer Cleansing Rinsed/ Rinsed/ Irrigated with Irrigated with Saline Saline -Foul Odor after Cleansing No No -Bioengineered Tissue No No -Bleeding Controlled with Pressure Pressure -Treatment Response Procedure Procedure Tolerated Well Tolerated Well -Offloading Yes -Type of Offloading Wedge Shoe -Assistive Device(s) Wheelchair -Debridement - Subq, 1st 20sq cm Yes No -Debridement, SubQ, ea addt'l 20sq cm 3 or part thereof Pain Scale: 0-10 Numeric Is Patient Pain Free? Yes Yes WC - Nurse 3 - General Ulcer D/C NN Start: 07/02/23 11:42 Freq: Status: Active Protocol: Activity Type Activity Date Activity User E-sign Co-sign Detail Recorded Client Recorded Date Recorded By Document 07/02/23 12:14 Desktop 07/02/23 12:19 Document 07/16/23 11:49 RB Desktop 07/16/23 11:53 RB 07/02/23 07/16/23 12:14 11:49 Wound Care Center Nurse 3 #6 R DORSAL foot -Ulcer Cleansing Soap and Water Rinsed/ Irrigated with Saline -Foul Odor after Cleansing No -Negative Pressure Wound Therapy N/A -Primary Dressing Applied Aquacel Extra, Aquacel Extra, Fibracol Plus Fibracol Plus 4x4 4x4 -Other Dressing abd -Primary Dressing Covered/Secured with Dry Gauze & Dry Gauze,Dry Roll Gauze, Gauze & Roll Secured with Gauze,Secured Tape with Tape -Aquacel Extra 1 1 -Fibracol Plus 4x4 1 1 #5 L Med foot -Ulcer Cleansing Soap and Water Rinsed/ Irrigated with Saline -Foul Odor after Cleansing No -Negative Pressure Wound Therapy N/A -Primary Dressing Applied Other Aquacel Extra, Fibracol Plus 4x4 -Other Dressing used remainder abd of supplies -Primary Dressing Covered/Secured with Dry Gauze & Dry Gauze,Dry Roll Gauze, Gauze & Roll Secured with Gauze,Secured Tape with Tape -Aquacel Extra 1 -Fibracol Plus 4x4 1 #3 R Med Foot -Ulcer Cleansing Soap and Water Rinsed/ Irrigated with Saline -Negative Pressure Wound Therapy N/A -Primary Dressing Applied Other -Other Dressing used remainder fibracol, of supplies aquacel extra, ABD pad kerlix -Primary Dressing Covered/Secured with Dry Gauze,Dry Gauze & Roll Gauze,Secured with Tape #2 R Lat foot -Ulcer Cleansing Soap and Water Rinsed/ Irrigated with Saline -Foul Odor after Cleansing No -Negative Pressure Wound Therapy N/A -Primary Dressing Applied Other -Other Dressing used remainder fibracol plus, of supplies aquacel extra, ABD kerlix -Primary Dressing Covered/Secured with Dry Gauze,Dry Gauze & Roll Gauze,Secured with Tape Right -Other cole Left -Other cole Treatment Response Procedure Tolerated Well Pain Scale: 0-10 Numeric Is Patient Pain Free? Yes Yes Teaching: Wound Center Compression Wraps & Stockings -Person Taught Patient Patient -Teaching Method Discussion Discussion -Response to teaching Verbalize Verbalize understanding understanding WC - Visit Discharge Discharge Condition Stable Stable Ambulatory Status Wheelchair Wheelchair Transportation [facility] Medication Reconcilliation completed & Yes No provided to patient/care provider Clinical Summary of Care Provided Yes Yes Additional Wound Wound debrided: Left medial ankle/lower extremity Type of Debridement: Excisional debridement Anesthesia Used: 4% Lidocaine Solution Depth: Down to and including healthy tissue and in the subcutaneous layer Percentage of wound debrided: 100 Instrument Used: 5mm curette Tissue Removed: Slough and devitalized tissue Severity: Fat Layer Exposed Amount of bleeding with debridement: Mild Bleeding Controlled with: Pressure Patient tolerated procedure: Patient tolerated procedure well Additional Wound Wound debrided: Right medial ankle/lower extremity Type of Debridement: Excisional debridement Anesthesia Used: 4% Lidocaine Solution Depth: Down to and including healthy tissue and in the subcutaneous layer Percentage of wound debrided: 100 Instrument Used: 5mm curette Tissue Removed: Slough and devitalized tissue Severity: Fat Layer Exposed Amount of bleeding with debridement: Mild Bleeding Controlled with: Pressure Patient tolerated procedure: Patient tolerated procedure well Additional Wound Wound debrided: Right Dorsal Foot Type of Debridement: Excisional debridement Anesthesia Used: 4% Lidocaine Solution Depth: Down to and including healthy tissue and in the subcutaneous layer Percentage of wound debrided: 100 Instrument Used: 5mm curette Tissue Removed: Slough and devitalized tissue Severity: Fat Layer Exposed Amount of bleeding with debridement: Mild Bleeding Controlled with: Pressure Patient tolerated procedure: Patient tolerated procedure well Additional Wound Tissue Removed: Slough and devitalized tissue Assessment/Plan Assessment/Plan (1) Ulcer of right lower extremity with fat layer exposed: CODE(S): L97.912 - Non-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 (2) Ulcer of left lower extremity with fat layer exposed: CODE(S): L97.922 - Non-pressure chronic ulcer of unspecified part of left lower leg with fat layer exposed (3) Ulcer of right heel and midfoot with fat layer exposed: CODE(S): L97.412 - Non-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 S/p Venogram with stent placement in the IVC. Continue cleaning with soap and water prior to dressing changes. Continue Fibracol, Aquacel extra, cover with foam dressing to all ulcers. Change twice daily or more depending on drainage. Cole wraps to both extremities for edema management. Leg elevation, optimized protein and nutrition recommended. Continue FU with Vascular, will review records. His questions were answered and he was advised to let us know if he has any further questions or concerns. Follow-up in 1 week. This note was generated with [employer] dictation software. It may contain incorrect words, spelling, and punctuation that were not noted in checking the note before signing.
[2023-07-23 10:54] VITALS: BP 94/55; PULSE 72; RESP 16; TEMP 37.1
--- NOTE | 2023-07-23 12:14 | PN.PCM_ITS ---
History of Present Illness Date of Service: 07/23/23 Chief Complaint: Nonhealing bilateral lower extremity ulcers History of Wound: Mr Wilson is an 82-year-old who [facility] due to nonhealing bilateral lower extremity ulcers. Has had recurrent ulcerations for over 10 years with most recent episode being more severe late last year. He was seen at the emergency room and subsequently advised to follow-up at a wound center which he did at [facility] without any significant improvement. A month ago, he was hospitalized for sepsis secondary to bilateral lower extremity ulcers. Following his admission and hospital stay, he did not return to the prior wound center. He reports a lot of drainage from his ulcers. They have been inconsistent dressing changes at his facility. He feels well otherwise and denies chills, fever. Currently has a PICC line and he is on IV vancomycin and cephalosporin. Progress of Wound: No new concerns at this time. No significant change. Objective Data Objective Data Vital Signs: Vital Signs Temp Pulse Resp BP O2 Del Method 98.8 F 72 16 94/55 L Room Air 07/23/23 10:54 07/23/23 10:54 07/23/23 10:54 07/23/23 10:54 07/23/23 10:54 Oxygen Delivery Method Room Air Charges/Coding Procedures Integumentary [id number]: [id number] Samina subq tissue 20 sq cm/< Add On Codes: 37327 Samina subq tissue add-on (x4 additional square centimeter debrided, please refer to clinical note.) Physical Exam Const alert, oriented x3 and no apparent distress General Appearance: cooperative and comfortable HEENT Head and Scalp: normocephalic and atraumatic Eyes EOMs intact bilaterally General Eye: normal appearance of both eyes Neck full ROM and supple General: normal visual inspection Resp normal respiratory effort Back/Spine Cervical Spine: cervical ROM normal Extremity full ROM General Extremity: edema Skin Wounds: wounds noted Neuro oriented x3 Psych thought process normal, cooperative, affect normal, speech normal and activity/motor behavior normal Debridement Note Debridement Note Wound debrided: Right Lateral Ankle/Foot Type of Debridement: Excisional debridement Anesthesia Used: 4% Lidocaine Solution Depth: Down to and including healthy tissue and in the subcutaneous layer Percentage of wound debrided: 100 Instrument Used: 5mm curette Tissue Removed: Slough and devitalized tissue Severity: Fat Layer Exposed Amount of bleeding with debridement: Mild Bleeding Controlled with: Pressure Patient tolerated procedure: Patient tolerated procedure well Post-Debridement Measurements and Additional Note: Post-Debridement Measurements/Treatment - Nurse 1 - General Ulcer Assessment Start: 07/02/23 11:42 Freq: Status: Active Protocol: MARTA Activity Type Activity Date Activity User E-sign Co-sign Detail Recorded Client Recorded Date Recorded By Document 07/02/23 11:42 [facility] Desktop 07/02/23 11:47 BMF Document 07/16/23 11:06 BMF Desktop 07/16/23 11:12 BMF Document 07/23/23 10:54 BM Desktop 07/23/23 11:05 BMF 07/02/23 07/16/23 07/23/23 11:42 11:06 10:54 - Today's Visit Information Type of service Follow-up Visit Follow-up Visit Follow-up Visit (Physician/COMMISSIONING AGENT (Physician/COMMISSIONING AGENT (Physician/COMMISSIONING AGENT ) ) ) Arrival Mode Wheelchair Wheelchair Wheelchair Transfer Assistance Other Other None Transfer Assist (Other) 2 2 Patient Identification Verified (Name & Yes Yes Yes ) Patient Requires Transmission-Based No No No Precautions Vital Signs Temperature (97.8 F-99.1 F) 98.2 F 98 F 98.8 F Temperature Source Temporal Temporal Temporal Pulse Rate (60-100) 68 67 72 Pulse Location Monitor Monitor Monitor Respiratory Rate (12-18) 16 16 16 Respiratory rate source Observation Observation Observation Oxygen Delivery Method Room Air Room Air Room Air Blood Pressure (90/60-120/80) 101/56 L 99/61 94/55 L Blood Pressure Mean (mm Hg) 71 73 68 Source Monitor Monitor Monitor Position Sitting Sitting Sitting Blood Pressure Location Right Forearm Right Forearm Right Forearm History Since Last Visit- (Skip if this is Patient's initial visit) Have you changed medications since your No No No last visit? Any new allergies or adverse reactions No No No Had a fall/change in ADL's that may No No No increase risk of falls Signs or symptoms of abuse and/or No No No neglect since last visit Have you been in the hospital since your No No No last visit? Has dressing in place as prescribed No Yes Yes Has compression in place as prescribed No Yes Has offloadiing in place as prescribed N/A N/A Experienced any changes in pain level or No No management Left Footwear Surgical Shoe Surgical Shoe Surgical Shoe with pressure with pressure with pressure relief insole relief insole relief insole Right Footwear Surgical Shoe Surgical Shoe Surgical Shoe with pressure with pressure with pressure relief insole relief insole relief insole Pain Scale: 0-10 Numeric Is Patient Pain Free? Yes Yes Yes WC - Nurse 1 - General Ulcer Measurement Start: 07/02/23 11:42 Freq: Status: Active Protocol: Activity Type Activity Date Activity User E-sign Co-sign Detail Recorded Client Recorded Date Recorded By Document 07/02/23 11:42 [employer] Desktop 07/02/23 11:47 [employer] Document 07/16/23 11:06 [employer] Desktop 07/16/23 11:12 [employer] Document 07/23/23 10:54 [employer] Desktop 07/23/23 11:05 BMF 07/02/23 07/16/23 07/23/23 11:42 11:06 10:54 Wound Center Nurse 1 #6 R DORSAL foot -Combined with other wound No No No -Current Size (cm) - Length 0.1 0.1 0.1 -Current Size (cm) - Width 0.1 0.1 0.1 -Current Size (cm) - Depth 0.1 0.1 0.1 -Total Square Cm 0.01 0.01 0.01 -Date of Last Picture (Recall this 07/16/23 field) -Photo Taken No Yes -Epithelialization None Present -Tunneling No -Undermining/Tunneling No -Circular Undermining No -Exudate Amt Large Large Medium -Exudate Type Serosanguineous Serosanguineous Serosanguineous -Wound Margin Distinct, Distinct, Distinct, Outline Outline Outline Attached Attached Attached -Granulation Amt Medium (34-66%) Small (1-33%) -Granulation Quality [place] -Slough/Fibrin Yes Yes -Necrosis Amt Medium (34-66%) Large (67-100%) -Necrotic Tissue Type Eschar Adherent Slough -Texture (Yuliet-wound Skin Appearance) Assessed, Assessed, Assessed, Scarring Scarring Scarring -Moisture (Yuliet-wound Skin Appearance) Assessed, Assessed,Dry/ Assessed Maceration,Dry/ Scaly Scaly -Color (Yuliet-wound Skin Appearance) Assessed, Assessed Assessed Erythema -Temperature (Yuliet-wound Skin No Abnormality No Abnormality No Abnormality Appearance) (Pt Warm) (Pt Warm) (Pt Warm) -Tenderness on Palpation (Yuliet-wound No No No Skin Appearance) -Ulcer Cleansing Soap and Water Soap and Water Soap and Water -Foul Odor after Cleansing No No No -Anesthetic Used 4% Lidocaine 4% Lidocaine 4% Lidocaine Solution Solution Solution #5 L Med foot -Combined with other wound No No No -Current Size (cm) - Length 0.1 0.1 0.1 -Current Size (cm) - Width 0.1 0.1 0.1 -Current Size (cm) - Depth 0.1 0.1 0.1 -Total Square Cm 0.01 0.01 0.01 -Date of Last Picture (Recall this 07/16/23 field) -Photo Taken No Yes -Epithelialization None Present -Tunneling No No -Undermining/Tunneling No No -Circular Undermining No No -Exudate Amt Medium Medium Large -Exudate Type Serosanguineous Serosanguineous Serosanguineous -Wound Margin Distinct, Thickened Outline Attached -Granulation Amt Small (1-33%) Large (67-100%) -Granulation Quality Red Pale,Red -Slough/Fibrin Yes Yes -Necrosis Amt Large (67-100%) Small (1-33%) -Necrotic Tissue Type Adherent Slough Adherent Slough -Texture (Yuliet-wound Skin Appearance) Assessed,Callus Assessed, Assessed, ,Scarring Scarring Scarring -Moisture (Yuliet-wound Skin Appearance) Assessed,Dry/ Assessed,Dry/ Assessed,Dry/ Scaly Scaly Scaly -Color (Yuliet-wound Skin Appearance) Assessed Assessed Assessed, Erythema -Temperature (Yuliet-wound Skin No Abnormality No Abnormality No Abnormality Appearance) (Pt Warm) (Pt Warm) (Pt Warm) -Tenderness on Palpation (Yuliet-wound No No No Skin Appearance) -Ulcer Cleansing Soap and Water Soap and Water Soap and Water -Foul Odor after Cleansing No No No -Anesthetic Used 4% Lidocaine 4% Lidocaine 4% Lidocaine Solution Solution Solution #3 R Med Foot -Combined with other wound No No No -Current Size (cm) - Length 0.1 0.1 0.1 -Current Size (cm) - Width 0.1 0.1 0.1 -Current Size (cm) - Depth 0.1 0.1 0.1 -Total Square Cm 0.01 0.01 0.01 -Date of Last Picture (Recall this 07/16/23 field) -Photo Taken No Yes No -Epithelialization None Present -Tunneling No No No -Undermining/Tunneling No No No -Circular Undermining No No No -Exudate Amt Large Large Large -Exudate Type Serosanguineous Serosanguineous Serosanguineous -Wound Margin Thickened & Distinct, Thickened Rolled Under Outline Attached -Granulation Amt Large (67-100%) Large (67-100%) -Granulation Quality Pale,[place] Pale,Red -Slough/Fibrin Yes Yes -Necrosis Amt Medium (34-66%) Medium (34-66%) -Necrotic Tissue Type Adherent Slough Adherent Slough -Texture (Yuliet-wound Skin Appearance) Assessed, Assessed, Assessed, Scarring Scarring Scarring -Moisture (Yuliet-wound Skin Appearance) Assessed,Dry/ Assessed Assessed,Dry/ Scaly Scaly -Color (Yuliet-wound Skin Appearance) Assessed Assessed Assessed -Temperature (Yuliet-wound Skin No Abnormality No Abnormality No Abnormality Appearance) (Pt Warm) (Pt Warm) (Pt Warm) -Tenderness on Palpation (Yuliet-wound No No No Skin Appearance) -Ulcer Cleansing Soap and Water Soap and Water Soap and Water -Foul Odor after Cleansing No No No -Anesthetic Used 4% Lidocaine 4% Lidocaine 4% Lidocaine Solution Solution Solution #2 R Lat foot -Combined with other wound No No No -Current Size (cm) - Length 0.1 0.1 0.1 -Current Size (cm) - Width 0.1 0.1 0.1 -Current Size (cm) - Depth 0.1 0.1 0.1 -Total Square Cm 0.01 0.01 0.01 -Date of Last Picture (Recall this 07/16/23 field) -Photo Taken No Yes -Epithelialization None Present -Tunneling No No No -Undermining/Tunneling No No No -Circular Undermining No No No -Exudate Amt Large Large Large -Exudate Type Serosanguineous Serosanguineous Serosanguineous -Wound Margin Distinct, Distinct, Thickened Outline Outline Attached Attached -Granulation Amt Small (1-33%) Medium (34-66%) -Granulation Quality Pale,[place] -Slough/Fibrin Yes Yes -Necrosis Amt Large (67-100%) Medium (34-66%) -Necrotic Tissue Type Eschar Adherent Slough -Texture (Yuliet-wound Skin Appearance) Assessed, Assessed, Assessed, Scarring Scarring Scarring -Moisture (Yuliet-wound Skin Appearance) Assessed, Assessed Assessed,Dry/ Maceration,Dry/ Scaly Scaly -Color (Yuliet-wound Skin Appearance) Assessed Assessed Assessed -Temperature (Yuliet-wound Skin No Abnormality No Abnormality No Abnormality Appearance) (Pt Warm) (Pt Warm) (Pt Warm) -Tenderness on Palpation (Yuliet-wound No No No Skin Appearance) -Ulcer Cleansing Soap and Water Soap and Water Soap and Water -Foul Odor after Cleansing No No No -Anesthetic Used 4% Lidocaine 4% Lidocaine 4% Lidocaine Solution Solution Solution WC - Nurse 2 - General Ulcer CM Notes Start: 07/02/23 11:42 Freq: Status: Active Protocol: Activity Type Activity Date Activity User E-sign Co-sign Detail Recorded Client Recorded Date Recorded By Document 07/02/23 11:56 [employer] 07/02/23 12:12 Document 07/16/23 11:26 [employer] 07/16/23 11:40 Document 07/23/23 11:19 [employer] 07/23/23 11:34 07/02/23 07/16/23 07/23/23 11:56 11:26 11:19 Wound Center Nurse 2 #6 R DORSAL foot -Time 11:56 11:26 11:19 -Correct Patient Yes Yes Yes -Correct Side, Site, Position Yes Yes Yes -Correct Procedure Yes Yes Yes -Procedure Performed Yes Yes Yes -Type of Procedure Debridement Debridement Debridement -Clinical Debridement Subcutaneous Subcutaneous Subcutaneous -Tissue Removed Subcutaneous Subcutaneous Subcutaneous -Post Debridement (cm) - Length 2.2 2.5 2.5 -Post Debridement (cm) - Width 6.0 6.0 6.0 -Post Debridement (cm) - Depth 0.3 0.4 0.3 -Total Square (Post) (cm) 13.20 15.00 15.00 -Area of Debridement (cm) - Length 2.2 2.5 2.5 -Area of Debridement (cm) - Width 6 6.0 6.0 -Total Square (Area) (cm) 13.2 15.00 15.00 -Tunneling No No No -Undermining/Tunneling No No No -Circular Undermining No No No -Wound/Ulcer Outcome Not Healed Not Healed Not Healed -Ulcer Cleansing Rinsed/ Rinsed/ Rinsed/ Irrigated with Irrigated with Irrigated with Saline Saline Saline -Foul Odor after Cleansing No No No -Bioengineered Tissue No No No -Bleeding Controlled with Pressure Pressure Pressure -Treatment Response Procedure Procedure Procedure Tolerated Well Tolerated Well Tolerated Well -Offloading Yes Yes -Type of Offloading Wedge Shoe Wedge Shoe -Assistive Device(s) Wheelchair -Debridement - Subq, 1st 20sq cm No No No #5 L Med foot -Time 11:56 11:28 11:19 -Correct Patient Yes Yes Yes -Correct Side, Site, Position Yes Yes Yes -Correct Procedure Yes Yes Yes -Procedure Performed Yes Yes Yes -Type of Procedure Debridement Debridement Debridement -Clinical Debridement Subcutaneous Subcutaneous Subcutaneous -Tissue Removed Subcutaneous Subcutaneous Subcutaneous -Post Debridement (cm) - Length 1.2 1.5 1.7 -Post Debridement (cm) - Width 1.7 1.5 1.3 -Post Debridement (cm) - Depth 0.2 0.2 0.1 -Total Square (Post) (cm) 2.04 2.25 2.21 -Area of Debridement (cm) - Length 1.2 1.5 1.7 -Area of Debridement (cm) - Width 1.7 1.5 1.3 -Total Square (Area) (cm) 2.04 2.25 2.21 -Tunneling No No No -Undermining/Tunneling No No No -Circular Undermining No No No -Wound/Ulcer Outcome Not Healed Not Healed Not Healed -Ulcer Cleansing Not Cleansed Rinsed/ Rinsed/ Irrigated with Irrigated with Saline Saline -Foul Odor after Cleansing No No No -Bioengineered Tissue No No No -Bleeding Controlled with Pressure Pressure Pressure -Treatment Response Procedure Procedure Procedure Tolerated Well Tolerated Well Tolerated Well -Offloading Yes -Type of Offloading Wedge Shoe -Total Non-Weight Bearing to Left Lower Extremity -Assistive Device(s) Wheelchair -Debridement - Subq, 1st 20sq cm No No No #3 R Med Foot -Time 11:57 11:29 11:20 -Correct Patient Yes Yes Yes -Correct Side, Site, Position Yes Yes Yes -Correct Procedure Yes Yes Yes -Procedure Performed Yes Yes Yes -Type of Procedure Debridement Debridement Debridement -Clinical Debridement Subcutaneous Subcutaneous Subcutaneous -Tissue Removed Subcutaneous Subcutaneous Subcutaneous -Post Debridement (cm) - Length 3.5 2.5 4.5 -Post Debridement (cm) - Width 11 12 11 -Post Debridement (cm) - Depth 0.3 0.3 0.3 -Total Square (Post) (cm) 38.5 30.0 49.5 -Area of Debridement (cm) - Length 3.5 2.5 4.5 -Area of Debridement (cm) - Width 11 2.5 11 -Total Square (Area) (cm) 38.5 6.25 49.5 -Tunneling No No No -Undermining/Tunneling No No No -Circular Undermining No No No -Wound/Ulcer Outcome Not Healed Not Healed Not Healed -Ulcer Cleansing Rinsed/ Rinsed/ Rinsed/ Irrigated with Irrigated with Irrigated with Saline Saline Saline -Foul Odor after Cleansing No No No -Bioengineered Tissue No No No -Bleeding Controlled with Pressure Pressure Pressure -Treatment Response Procedure Procedure Procedure Tolerated Well Tolerated Well Tolerated Well -Debridement - Subq, 1st 20sq cm No Yes Yes -Debridement, SubQ, ea addt'l 20sq cm 3 4 or part thereof #2 R Lat foot -Time 11:57 11:30 11:21 -Correct Patient Yes Yes Yes -Correct Side, Site, Position Yes Yes Yes -Correct Procedure Yes Yes Yes -Procedure Performed Yes Yes Yes -Type of Procedure Debridement Debridement Debridement -Clinical Debridement Subcutaneous Subcutaneous Subcutaneous -Tissue Removed Subcutaneous Subcutaneous Subcutaneous -Post Debridement (cm) - Length 2.5 2.0 2.5 -Post Debridement (cm) - Width 9.7 9.5 9.5 -Post Debridement (cm) - Depth 0.2 0.3 0.3 -Total Square (Post) (cm) 24.25 19.00 23.75 -Area of Debridement (cm) - Length 2.5 2.0 2.5 -Area of Debridement (cm) - Width 9.7 9.5 9.8 -Total Square (Area) (cm) 24.25 19.00 24.50 -Tunneling No No No -Undermining/Tunneling No No No -Circular Undermining No No No -Wound/Ulcer Outcome Not Healed Not Healed Not Healed -Ulcer Cleansing Rinsed/ Rinsed/ Rinsed/ Irrigated with Irrigated with Irrigated with Saline Saline Saline -Foul Odor after Cleansing No No No -Bioengineered Tissue No No No -Bleeding Controlled with Pressure Pressure Pressure -Treatment Response Procedure Procedure Procedure Tolerated Well Tolerated Well Tolerated Well -Offloading Yes -Type of Offloading Wedge Shoe -Assistive Device(s) Wheelchair -Debridement - Subq, 1st 20sq cm Yes No No -Debridement, SubQ, ea addt'l 20sq cm 3 or part thereof Pain Scale: 0-10 Numeric Is Patient Pain Free? Yes Yes Yes WC - Nurse 3 - General Ulcer D/C NN Start: 07/02/23 11:42 Freq: Status: Active Protocol: Activity Type Activity Date Activity User E-sign Co-sign Detail Recorded Client Recorded Date Recorded By Document 07/02/23 12:14 Desktop 07/02/23 12:19 Document 07/16/23 11:49 [facility] Desktop 07/16/23 11:53 RB Document 07/23/23 11:39 Desktop 07/23/23 11:42 07/02/23 07/16/23 07/23/23 12:14 11:49 11:39 Wound Care Center Nurse 3 #6 R DORSAL foot -Ulcer Cleansing Soap and Water Rinsed/ Soap and Water Irrigated with Saline -Foul Odor after Cleansing No No -Negative Pressure Wound Therapy N/A -Primary Dressing Applied Aquacel Extra, Aquacel Extra, Aquacel Extra, Fibracol Plus Fibracol Plus Promogran 4x4 4x4 -Other Dressing abd -Primary Dressing Covered/Secured with Dry Gauze & Dry Gauze,Dry Dry Gauze & Roll Gauze, Gauze & Roll Roll Gauze, Secured with Gauze,Secured Secured with Tape with Tape Tape -Aquacel Extra 1 1 1 -Fibracol Plus 4x4 1 1 -Promogran 1 #5 L Med foot -Ulcer Cleansing Soap and Water Rinsed/ Soap and Water Irrigated with Saline -Foul Odor after Cleansing No No -Negative Pressure Wound Therapy N/A -Primary Dressing Applied Other Aquacel Extra, Fibracol Plus 4x4 -Other Dressing used remainder abd used remainder of supplies of promogran and aquacel extra -Primary Dressing Covered/Secured with Dry Gauze & Dry Gauze,Dry Roll Gauze, Gauze & Roll Secured with Gauze,Secured Tape with Tape -Aquacel Extra 1 -Fibracol Plus 4x4 1 #3 R Med Foot -Ulcer Cleansing Soap and Water Rinsed/ Soap and Water Irrigated with Saline -Foul Odor after Cleansing No -Negative Pressure Wound Therapy N/A -Primary Dressing Applied Other Aquacel Extra, Promogran -Other Dressing used remainder fibracol, of supplies aquacel extra, ABD pad kerlix -Primary Dressing Covered/Secured with Dry Gauze,Dry Dry Gauze & Gauze & Roll Roll Gauze, Gauze,Secured Secured with with Tape Tape -Aquacel Extra 1 -Promogran 2 #2 R Lat foot -Ulcer Cleansing Soap and Water Rinsed/ Irrigated with Saline -Foul Odor after Cleansing No No -Negative Pressure Wound Therapy N/A -Primary Dressing Applied Other -Other Dressing used remainder fibracol plus, used remainder of supplies aquacel extra, of promogran ABD kerlix and aquacel extra -Primary Dressing Covered/Secured with Dry Gauze,Dry Gauze & Roll Gauze,Secured with Tape Right -Other cole Left -Other cole Treatment Response Procedure Tolerated Well Pain Scale: 0-10 Numeric Is Patient Pain Free? Yes Yes Yes Teaching: Wound Center Compression Wraps & Stockings -Person Taught Patient Patient Patient -Teaching Method Discussion Discussion Discussion -Response to teaching Verbalize Verbalize Verbalize understanding understanding understanding Dressing Your Wound -Person Taught Patient -Teaching Method Discussion, Demonstration -Response to teaching Verbalize understanding WC - Visit Discharge Discharge Condition Stable Stable Stable Ambulatory Status Wheelchair Wheelchair Wheelchair Transportation [facility] Medication Reconcilliation completed & Yes No Yes provided to patient/care provider Clinical Summary of Care Provided Yes Yes Yes Additional Wound Wound debrided: Left medial ankle/lower extremity Type of Debridement: Excisional debridement Anesthesia Used: 4% Lidocaine Solution Depth: Down to and including healthy tissue and in the subcutaneous layer Percentage of wound debrided: 100 Instrument Used: 5mm curette Tissue Removed: Slough and devitalized tissue Severity: Fat Layer Exposed Amount of bleeding with debridement: Mild Bleeding Controlled with: Pressure Patient tolerated procedure: Patient tolerated procedure well Additional Wound Wound debrided: Right medial ankle/lower extremity Type of Debridement: Excisional debridement Anesthesia Used: 4% Lidocaine Solution Depth: Down to and including healthy tissue and in the subcutaneous layer Percentage of wound debrided: 100 Instrument Used: 5mm curette Tissue Removed: Slough and devitalized tissue Severity: Fat Layer Exposed Amount of bleeding with debridement: Mild Bleeding Controlled with: Pressure Patient tolerated procedure: Patient tolerated procedure well Additional Wound Wound debrided: Right Dorsal Foot Type of Debridement: Excisional debridement Anesthesia Used: 4% Lidocaine Solution Depth: Down to and including healthy tissue and in the subcutaneous layer Percentage of wound debrided: 100 Instrument Used: 5mm curette Tissue Removed: Slough and devitalized tissue Severity: Fat Layer Exposed Amount of bleeding with debridement: Mild Bleeding Controlled with: Pressure Patient tolerated procedure: Patient tolerated procedure well Additional Wound Tissue Removed: Slough and devitalized tissue Assessment/Plan Assessment/Plan (1) Ulcer of right lower extremity with fat layer exposed: CODE(S): L97.912 - Non-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 (2) Ulcer of left lower extremity with fat layer exposed: CODE(S): L97.922 - Non-pressure chronic ulcer of unspecified part of left lower leg with fat layer exposed (3) Ulcer of right heel and midfoot with fat layer exposed: CODE(S): L97.412 - Non-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 S/p Venogram with stent placement in the IVC. No significant change in size at this time. Continue cleaning with soap and water prior to dressing changes. Continue Fibracol, Aquacel extra, cover with foam dressing to all ulcers. Change twice daily or more depending on drainage. Cole wraps to both extremities for edema management. Leg elevation, optimized protein and nutrition recommended. Continue FU with Vascular, will review records. His questions were answered and he was advised to let us know if he has any further questions or concerns. Follow-up in 1 week. This note was generated with [employer] dictation software. It may contain incorrect words, spelling, and punctuation that were not noted in checking the note before signing.
== END 2023-07-29 23:59 | disposition home or self-care (01) ==
LOC: WC 11:30
PROVIDERS: PCP Family Medicine; Referring Provider Family Medicine; Visit Provider Internal Medicine
DX: L97.412 Non-pressure chronic ulcer of right heel and midfoot with fat layer exposed (principal); L97.922 Non-pressure chronic ulcer of unspecified part of left lower leg with fat layer exposed; L97.912 Non-pressure chronic ulcer of unspecified part of right lower leg with fat layer exposed; I73.9 Peripheral vascular disease, unspecified; G62.9 Polyneuropathy, unspecified; R53.81 Other malaise
CPT/HCPCS: 11042; 11045

== ENCOUNTER 2023-08-25 10:30 | Outpatient (RCR) | payer MEDICARE, BC, SELFPAY ==
[2023-07-30 00:14] VITALS: BP 94/55; PULSE 72; RESP 16; TEMP 37.1
[2023-08-11 11:07] VITALS: BP 107/55; PULSE 64; RESP 18; TEMP 37.3
--- NOTE | 2023-08-11 11:38 | HP.PCM_ITS ---
History of Present Illness Date of Service: 08/11/23 Chief Complaint: Nonhealing bilateral lower extremity ulcers History of Wound: Mr Wilson is an 82-year-old who was brought in here from his [facility] due to nonhealing bilateral lower extremity ulcers. Has had recurrent ulcerations for over 10 years with most recent episode being more severe late last year. 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 Patient denies any fever chills nausea vomiting chest pain calf pain at current. Patient resides in long term facility. Patient receives daily dressing changes of alginate dressing. Patient has a minimally ambulatory status due to deformity and weakness. Patient states that he does ambulate assisted by walker within the confines of his room to the bathroom. States he does this on a daily basis. No other complaints. [facility] Medical History Debility Diabetes Heart failure Hyperlipidemia Hypertension Peripheral vascular disease Polyneuropathy Ulcer of left lower extremity with fat layer exposed Ulcer of right heel and midfoot with fat layer exposed Ulcer of right lower extremity with fat layer exposed Vascular dementia Home Medications atorvastatin 40 mg tablet 40 mg PO QHS 10/09/22 [History Last Taken Unknown] cefepime 2 gram solution for injection 2 g IV Q24H 10/09/22 [History Last Taken Unknown] cyanocobalamin (vitamin B-12) 500 mcg tablet 500 mcg PO DAILY 10/09/22 [History Last Taken Unknown] diphenhydramine 25 mg-acetaminophen 500 mg tablet (Acetaminophen PM Extra Strength) 2 tab PO QHS PRN Pain 10/09/22 [History Last Taken Unknown] docusate sodium 100 mg capsule 100 mg PO BID 10/09/22 [History Last Taken Unknown] furosemide 40 mg tablet (Lasix) 40 mg PO DAILY 10/09/22 [History Last Taken Unknown] gabapentin 300 mg capsule 300 mg PO TID 10/09/22 [History Last Taken Unknown] magnesium hydroxide 400 mg/5 mL oral suspension (Milk of Magnesia) 30 ml PO DAILY PRN Constipation 10/09/22 [History Last Taken Unknown] metformin 500 mg tablet,extended release 24 hr 500 mg PO DAILY 10/09/22 [History Last Taken Unknown] multivitamin 1 tab PO DAILY 10/09/22 [History Last Taken Unknown] polyethylene glycol 3350 17 gram oral powder packet (Miralax) 17 g PO DAILY 10/09/22 [History Last Taken Unknown] sennosides 8.6 mg capsule (senna) 8.6 mg PO DAILY 10/09/22 [History Last Taken Unknown] tamsulosin 0.4 mg capsule 0.8 mg PO QHS 10/09/22 [History Last Taken Unknown] vancomycin 750 mg intravenous solution 750 mg IV DAILY 10/09/22 [History Last Taken Unknown] warfarin 5 mg tablet 5 mg PO DAILY 10/09/22 [History Last Taken Unknown] ciprofloxacin HCl 500 mg tablet 500 mg PO BID #14 tabs 06/15/23 [Rx Last Taken Unknown] Allergy/AdvReac Type Severity Reaction Status Date / Time No Known Allergies Allergy Verified 06/03/23 13:59 Social History Smoking Status: Never smoker ROS Constitutional Constitutional: Denies body ache(s), change in weight or fever(s) Eyes Eyes: Denies change in eye color, discongugate gaze or floaters ENT HEENT: Denies abnormal hearing, bleeding gums or dysphagia Cardiovascular Cardiovascular: Denies abdominal bloating, abdominal edema or bluish discoloration of hand/feet Respiratory/Chest Respiratory/Chest: Denies change in mental status, change in phlegm color or difficulty clearing secretions Gastrointestinal Gastrointestinal: Denies anorexia, belching or coffee ground emesis Genitourinary Genitourinary: Denies abdominal discomfort, anuria or burning urination Vital Signs Vital Signs Vital Signs: 08/11/23 11:07 Temperature 99.1 F Temperature Source Temporal Pulse Rate 64 Respiratory Rate 18 Blood Pressure 107/55 L Blood Pressure Mean 72 Blood Pressure Source Monitor Blood Pressure Position Semi-Fowlers Blood Pressure Location Left Arm Physical Exam Narrative Vascular: Dorsalis pedis posterior tibial pulses palpable to bilateral lower extremity. Atrophic skin changes such as shiny taut appearance noted with absent digital hair growth. Patient does have +1 pitting edema to bilateral lower extremity with hemosiderin deposits noted. Neurologic: Light touch protective sensation diminished bilateral feet. Dermatologic: Multiple full-thickness wounds to right lower extremity noted to the lateral midfoot dorsal forefoot plantar forefoot medial foot and ankle. Full-thickness wound noted to the left medial ankle. these wounds are large in length and width but are limited in depth to subcutaneous tissue. Wounds demonstrate a mixed fibrogranular base with significant periwound maceration erythema and edema. There is no to be moderate drainage from these wounds. 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 This appears to contribute to wound formation and poor ambulatory status patient. Patient has diffuse muscular weakness 4 out of 5 to bilateral lower extremity compartments. On the left lower extremity patient has an equinus contracture to the hindfoot. Debridement Note Debridement Note Post-Debridement Measurements and Additional Note: Post-Debridement Measurements/Treatment - Nurse 1 - General Ulcer Assessment Start: 08/11/23 11:07 Freq: Status: Active Protocol: [email or web address] Activity Type Activity Date Activity User E-sign Co-sign Detail Recorded Client Recorded Date Recorded By Document 08/11/23 11:07 Desktop 08/11/23 11:15 RB 08/11/23 11:07 - Today's Visit Information Type of service Follow-up Visit (Physician/CARE INFORMATION ASSOCIATE ) Arrival Mode Wheelchair Transfer Assistance Manual Patient Identification Verified (Name & Yes ) Patient Requires Transmission-Based No Precautions Vital Signs Temperature (97.8 F-99.1 F) 99.1 F Temperature Source Temporal Pulse Rate (60-100) 64 Pulse Location Monitor Respiratory Rate (12-18) 18 Respiratory rate source Observation Blood Pressure (90/60-120/80) 107/55 L Blood Pressure Mean 72 Source Monitor Position Semi-Fowlers Blood Pressure Location Left Arm History Since Last Visit- (Skip if this is Patient's initial visit) Have you changed medications since your No last visit? Any new allergies or adverse reactions No Had a fall/change in ADL's that may No increase risk of falls Signs or symptoms of abuse and/or No neglect since last visit Have you been in the hospital since your No last visit? Has dressing in place as prescribed Yes Has compression in place as prescribed Yes Has offloadiing in place as prescribed Yes Experienced any changes in pain level or No management Left Footwear Surgical Shoe with pressure relief insole Right Footwear Surgical Shoe with pressure relief insole Pain Scale: 0-10 Numeric Is Patient Pain Free? Yes WC - Nurse 1 - General Ulcer Measurement Start: 08/11/23 11:07 Freq: Status: Active Protocol: Activity Type Activity Date Activity User E-sign Co-sign Detail Recorded Client Recorded Date Recorded By Document 08/11/23 11:07 RB Desktop 08/11/23 11:15 RB 08/11/23 11:07 Wound Center Nurse 1 #6 R DORSAL foot -Combined with other wound No -Current Size (cm) - Length 0.1 -Current Size (cm) - Width 0.1 -Current Size (cm) - Depth 0.1 -Total Square Cm 0.01 -Tunneling No -Undermining/Tunneling No -Circular Undermining No -Exudate Amt Large -Exudate Type Serosanguineous -Wound Margin Fibrotic Scar, Thickened Scar -Granulation Amt Medium (34-66%) -Granulation Quality [place] -Slough/Fibrin Yes -Necrosis Amt Large (67-100%) -Necrotic Tissue Type Adherent Slough -Structure Exposed N/A -Texture (Yuliet-wound Skin Appearance) Assessed -Moisture (Yuliet-wound Skin Appearance) Assessed,Dry/ Scaly -Color (Yuliet-wound Skin Appearance) Assessed, Erythema -Temperature (Yuliet-wound Skin No Abnormality Appearance) (Pt Warm) -Tenderness on Palpation (Yuliet-wound No Skin Appearance) -Ulcer Cleansing Wound Cleanser -Foul Odor after Cleansing No -Anesthetic Used 4% Lidocaine Solution #5 L Med foot -Combined with other wound No -Current Size (cm) - Length 0.1 -Current Size (cm) - Width 0.1 -Current Size (cm) - Depth 0.1 -Total Square Cm 0.01 -Tunneling No -Undermining/Tunneling No -Circular Undermining No -Exudate Amt Large -Exudate Type Serosanguineous -Wound Margin Distinct, Outline Attached -Granulation Amt Medium (34-66%) -Slough/Fibrin Yes -Necrosis Amt Large (67-100%) -Necrotic Tissue Type Adherent Slough -Structure Exposed N/A -Texture (Yuliet-wound Skin Appearance) Assessed -Moisture (Yuliet-wound Skin Appearance) Assessed -Color (Yuliet-wound Skin Appearance) Erythema -Temperature (Yuliet-wound Skin No Abnormality Appearance) (Pt Warm) -Tenderness on Palpation (Yuliet-wound No Skin Appearance) -Ulcer Cleansing Wound Cleanser -Foul Odor after Cleansing No -Anesthetic Used 4% Lidocaine Solution #3 R Med Foot -Combined with other wound No -Current Size (cm) - Length 0.1 -Current Size (cm) - Width 0.1 -Current Size (cm) - Depth 0.1 -Total Square Cm 0.01 -Tunneling No -Undermining/Tunneling No -Circular Undermining No -Exudate Amt Large -Exudate Type Serosanguineous -Wound Margin Distinct, Outline Attached -Granulation Amt Medium (34-66%) -Granulation Quality [place] -Slough/Fibrin Yes -Necrosis Amt Large (67-100%) -Necrotic Tissue Type Adherent Slough -Structure Exposed N/A -Texture (Yuliet-wound Skin Appearance) Assessed -Moisture (Yuliet-wound Skin Appearance) Assessed -Color (Yuliet-wound Skin Appearance) Assessed, Erythema -Temperature (Yuliet-wound Skin No Abnormality Appearance) (Pt Warm) -Tenderness on Palpation (Yuliet-wound No Skin Appearance) -Ulcer Cleansing Wound Cleanser -Foul Odor after Cleansing No -Anesthetic Used 4% Lidocaine Solution #2 R Lat foot -Combined with other wound No -Current Size (cm) - Length 0.1 -Current Size (cm) - Width 0.1 -Current Size (cm) - Depth 0.1 -Total Square Cm 0.01 -Tunneling No -Undermining/Tunneling No -Circular Undermining No -Exudate Amt Large -Exudate Type Serosanguineous -Wound Margin Distinct, Outline Attached -Granulation Amt Medium (34-66%) -Granulation Quality Pale -Slough/Fibrin Yes -Necrosis Amt Medium (34-66%) -Necrotic Tissue Type Adherent Slough -Structure Exposed N/A -Texture (Yuliet-wound Skin Appearance) Assessed -Moisture (Yuliet-wound Skin Appearance) Assessed -Color (Yuliet-wound Skin Appearance) Erythema -Temperature (Yuliet-wound Skin No Abnormality Appearance) (Pt Warm) -Tenderness on Palpation (Yuliet-wound No Skin Appearance) -Ulcer Cleansing Wound Cleanser -Anesthetic Used 4% Lidocaine Solution Assessment/Plan Assessment/Plan (1) Venous insufficiency (chronic) (peripheral): CODE(S): I87.2 - Venous insufficiency (chronic) (peripheral) PLAN: Exam performed Arterial and venous studies reviewed Patient on Coumadin Patient underwent recent venous procedure per Dr. Arvizu. This will likely help with patient's edema and wound healing moving forward. Today bilateral foot and ankle wounds were debrided excisionally down to including level of subcutaneous tissue of all nonviable tissue using a 5 mm dermal curette. No anesthesia due to neuropathy. Hemostasis with compression. Patient tolerated procedure well. Pre and postdebridement measurements documented nursing notes. Today I ordered radiographs of bilateral foot and ankle to evaluate patient deformity that may be contributing to wound formation. This is also ordered to rule out any underlying bone infection. Today I flushed the wounds and performed swab cultures to the right foot wounds as patient has at minimum cellulitis. Today I prescribed doxycycline and ciprofloxacin to help manage bioburden p ossible cellulitic infection to bilateral lower extremity. Will plan for daily Betadine wet-to-dry dressing changes with overlying dry sterile dressing and Tubigrip. This to be performed by [facility]. No weightbearing restrictions at current. This may change pending patient's healing status. Due to deformity advanced age, will consider BKA if there is any development of a life or limb threatening infection. At current we will continue with local wound care. 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
[2023-08-18 11:21] VITALS: BP 117/68; PULSE 72; RESP 18; TEMP 36.2
--- NOTE | 2023-08-18 11:47 | PCM.WC.PN ---
History of Present Illness Date of Service: 08/18/23 Chief Complaint: Nonhealing bilateral lower extremity ulcers History of Wound: Mr Wilson is an 82-year-old who was brought in here from his custodial due to nonhealing bilateral lower extremity ulcers. Has had recurrent ulcerations for over 10 years with most recent episode being more severe late last year. 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 No changes today. Patient denies any fever chills nausea vomiting chest pain calf pain at current. Patient resides in custodial facility. Patient receives daily Betadine DSD bilaterally. Patient has a minimally ambulatory status due to deformity and weakness. Patient states that he does ambulate assisted by walker within the confines of his room to the bathroom. States he does this on a daily basis. No other complaints. Objective Data Objective Data Vital Signs: Vital Signs Temp Pulse Resp BP 97.2 F L 72 18 117/68 08/18/23 11:21 08/18/23 11:21 08/18/23 11:21 08/18/23 11:21 Lab / Micro Data Micro: Microbiology 08/11/23 11:30 Wound - Right Foot Gram Stain - Final 08/11/23 11:30 Wound - Right Foot Wound Culture - Final Proteus mirabilis Pseudomonas aeruginosa Enterococcus faecalis Staphylococcus simulans 08/11/23 11:30 Wound - Right Foot Anaerobic Culture - Final Actinotignum schaalii Physical Exam Narrative Vascular: Dorsalis pedis posterior tibial pulses palpable to bilateral lower extremity. Atrophic skin changes such as shiny taut appearance noted with absent digital hair growth. Patient does have +1 pitting edema to bilateral lower extremity with hemosiderin deposits noted. Neurologic: Light touch protective sensation diminished bilateral feet. Dermatologic: Multiple full-thickness wounds to right lower extremity noted to the lateral midfoot dorsal forefoot plantar forefoot medial foot and ankle. Full-thickness wound noted to the left medial ankle. these wounds are large in length and width but are limited in depth to subcutaneous tissue. Wounds demonstrate a mixed fibrogranular base with significant periwound maceration erythema and edema. There is no to be moderate drainage from these wounds. 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 This appears to contribute to wound formation and poor ambulatory status patient. Patient has diffuse muscular weakness 4 out of 5 to bilateral lower extremity compartments. On the left lower extremity patient has an equinus contracture to the hindfoot. Debridement Note Debridement Note Post-Debridement Measurements and Additional Note: Post-Debridement Measurements/Treatment - Nurse 1 - General Ulcer Assessment Start: 08/11/23 11:07 Freq: Status: Active Protocol: SASHA.LOWEXT Activity Type Activity Date Activity User E-sign Co-sign Detail Recorded Client Recorded Date Recorded By Document 08/11/23 11:07 RB Desktop 08/11/23 11:15 RB Document 08/18/23 11:21 RB Desktop 08/18/23 11:33 RB 08/11/23 08/18/23 11:07 11:21 - Today's Visit Information Type of service Follow-up Visit Follow-up Visit (Physician/MANAGER CARD (Physician/MANAGER CARD ) ) Arrival Mode Wheelchair Wheelchair Transfer Assistance Manual Manual Patient Identification Verified (Name & Yes Yes ) Patient Requires Transmission-Based No No Precautions Vital Signs Temperature (97.8 F-99.1 F) 99.1 F 97.2 F L Temperature Source Temporal Temporal Pulse Rate (60-100) 64 72 Pulse Location Monitor Monitor Respiratory Rate (12-18) 18 18 Respiratory rate source Observation Observation Blood Pressure (90/60-120/80) 107/55 L 117/68 Blood Pressure Mean (mm Hg) 72 84 Source Monitor Monitor Position Semi-Fowlers Semi-Fowlers Blood Pressure Location Left Arm Left Arm History Since Last Visit- (Skip if this is Patient's initial visit) Have you changed medications since your No No last visit? Any new allergies or adverse reactions No No Had a fall/change in ADL's that may No No increase risk of falls Signs or symptoms of abuse and/or No No neglect since last visit Have you been in the hospital since your No No last visit? Has dressing in place as prescribed Yes Yes Has compression in place as prescribed Yes Yes Has offloadiing in place as prescribed Yes No Experienced any changes in pain level or No No management Left Footwear Surgical Shoe with pressure relief insole Right Footwear Surgical Shoe with pressure relief insole Pain Scale: 0-10 Numeric Is Patient Pain Free? Yes Yes WC - Nurse 1 - General Ulcer Measurement Start: 08/11/23 11:07 Freq: Status: Active Protocol: Activity Type Activity Date Activity User E-sign Co-sign Detail Recorded Client Recorded Date Recorded By Document 08/11/23 11:07 RB Desktop 08/11/23 11:15 RB Document 08/18/23 11:21 RB Desktop 08/18/23 11:33 RB 08/11/23 08/18/23 11:07 11:21 Wound Center Nurse 1 #6 R DORSAL foot -Combined with other wound No No -Current Size (cm) - Length 0.1 0.1 -Current Size (cm) - Width 0.1 0.1 -Current Size (cm) - Depth 0.1 0.1 -Total Square Cm 0.01 0.01 -Tunneling No No -Undermining/Tunneling No No -Circular Undermining No No -Exudate Amt Large -Exudate Type Serosanguineous -Wound Margin Fibrotic Scar, Thickened Scar -Granulation Amt Medium (34-66%) Medium (34-66%) -Granulation Quality [place] -Slough/Fibrin Yes Yes -Necrosis Amt Large (67-100%) Medium (34-66%) -Necrotic Tissue Type Adherent Slough Adherent Slough -Structure Exposed N/A N/A -Texture ([place]ul[place]-wound Skin Appearance) Assessed Assessed -Moisture ([place]-wound Skin Appearance) Assessed,Dry/ Assessed Scaly -Color ([place]ul[place]-wound Skin Appearance) Assessed, Hemosiderin Erythema Staining -Temperature ([place]-wound Skin No Abnormality No Abnormality Appearance) (Pt Warm) (Pt Warm) -Tenderness on Palpation ([place]ul[place]-wound No No Skin Appearance) -Ulcer Cleansing Wound Cleanser Wound Cleanser -Foul Odor after Cleansing No Yes, Due to Product Use -Anesthetic Used 4% Lidocaine 5% Lidocaine Solution Gel #5 L Med foot -Combined with other wound No No -Current Size (cm) - Length 0.1 0.1 -Current Size (cm) - Width 0.1 0.1 -Current Size (cm) - Depth 0.1 0.1 -Total Square Cm 0.01 0.01 -Tunneling No No -Undermining/Tunneling No No -Circular Undermining No No -Exudate Amt Large Medium -Exudate Type Serosanguineous Serosanguineous -Wound Margin Distinct, Distinct, Outline Outline Attached Attached -Granulation Amt Medium (34-66%) Medium (34-66%) -Granulation Quality [place] -Slough/Fibrin Yes Yes -Necrosis Amt Large (67-100%) -Necrotic Tissue Type Adherent Slough Adherent Slough -Structure Exposed N/A N/A -Texture ([place]ul[place]-wound Skin Appearance) Assessed Assessed -Moisture ([place]ul[place]-wound Skin Appearance) Assessed Assessed -Color ([place]ul[place]-wound Skin Appearance) Erythema Hemosiderin Staining -Temperature ([place]-wound Skin No Abnormality No Abnormality Appearance) (Pt Warm) (Pt Warm) -Tenderness on Palpation ([place]-wound No No Skin Appearance) -Ulcer Cleansing Wound Cleanser Wound Cleanser -Foul Odor after Cleansing No No -Anesthetic Used 4% Lidocaine 5% Lidocaine Solution Gel #3 R Med Foot -Combined with other wound No No -Current Size (cm) - Length 0.1 0.1 -Current Size (cm) - Width 0.1 0.1 -Current Size (cm) - Depth 0.1 0.1 -Total Square Cm 0.01 0.01 -Tunneling No No -Undermining/Tunneling No No -Circular Undermining No No -Exudate Amt Large Medium -Exudate Type Serosanguineous Serosanguineous -Wound Margin Distinct, Distinct, Outline Outline Attached Attached -Granulation Amt Medium (34-66%) Medium (34-66%) -Granulation Quality [place] -Slough/Fibrin Yes Yes -Necrosis Amt Large (67-100%) Large (67-100%) -Necrotic Tissue Type Adherent Slough Eschar -Structure Exposed N/A N/A -Texture ([place]ul[place]-wound Skin Appearance) Assessed Assessed -Moisture ([place]ul[place]-wound Skin Appearance) Assessed Assessed -Color ([place]ul[place]-wound Skin Appearance) Assessed, Hemosiderin Erythema Staining -Temperature ([place]-wound Skin No Abnormality No Abnormality Appearance) (Pt Warm) (Pt Warm) -Tenderness on Palpation ([place]ul[place]-wound No No Skin Appearance) -Ulcer Cleansing Wound Cleanser Wound Cleanser -Foul Odor after Cleansing No No -Anesthetic Used 4% Lidocaine 5% Lidocaine Solution Gel #2 R Lat foot -Combined with other wound No No -Current Size (cm) - Length 0.1 0.1 -Current Size (cm) - Width 0.1 0.1 -Current Size (cm) - Depth 0.1 0.1 -Total Square Cm 0.01 0.01 -Tunneling No No -Undermining/Tunneling No No -Circular Undermining No No -Exudate Amt Large Medium -Exudate Type Serosanguineous Serosanguineous -Wound Margin Distinct, Distinct, Outline Outline Attached Attached -Granulation Amt Medium (34-66%) Medium (34-66%) -Granulation Quality [place] -Slough/Fibrin Yes Yes -Necrosis Amt Medium (34-66%) Medium (34-66%) -Necrotic Tissue Type Adherent Slough Adherent Slough -Structure Exposed N/A N/A -Texture ([place]ul[place]-wound Skin Appearance) Assessed Assessed -Moisture ([place]ul[place]-wound Skin Appearance) Assessed Assessed -Color ([place]ul[place]-wound Skin Appearance) Erythema Hemosiderin Staining -Temperature ([place]-wound Skin No Abnormality No Abnormality Appearance) (Pt Warm) (Pt Warm) -Tenderness on Palpation ([place]ul[place]-wound No No Skin Appearance) -Ulcer Cleansing Wound Cleanser Wound Cleanser -Foul Odor after Cleansing No -Anesthetic Used 4% Lidocaine 5% Lidocaine Solution Gel Lower Limb Edema Present Yes Right Calf (cm) 34 Right Ankle (cm) 26.2 Left Calf (cm) 33.5 Left Ankle (cm) 25 WC - Nurse 2 - General Ulcer CM Notes Start: 08/11/23 11:07 Freq: Status: Active Protocol: Activity Type Activity Date Activity User E-sign Co-sign Detail Recorded Client Recorded Date Recorded By Document 08/11/23 11:38 Laptop 08/11/23 11:41 08/11/23 11:38 Wound Center Nurse 2 #6 R DORSAL foot -Time 11:38 -Correct Patient Yes -Correct Side, Site, Position Yes -Correct Procedure Yes -Procedure Performed Yes -Type of Procedure Debridement -Clinical Debridement Subcutaneous -Tissue Removed Subcutaneous -Post Debridement (cm) - Length 2.0 -Post Debridement (cm) - Width 6.2 -Post Debridement (cm) - Depth 0.1 -Total Square (Post) (cm) 12.40 -Area of Debridement (cm) - Length 2.0 -Area of Debridement (cm) - Width 6.2 -Total Square (Area) (cm) 12.40 -Tunneling No -Undermining/Tunneling No -Circular Undermining No -Wound/Ulcer Outcome Not Healed -Ulcer Cleansing Rinsed/ Irrigated with Saline -Foul Odor after Cleansing No -Bioengineered Tissue No -Bleeding Controlled with Pressure -Treatment Response Procedure Tolerated Well -Offloading Yes -Type of Offloading Surgical Shoe -Debridement - Subq, 20sq cm No #5 L Med foot -Time 11:39 -Correct Patient Yes -Correct Side, Site, Position Yes -Correct Procedure Yes -Procedure Performed Yes -Type of Procedure Debridement -Clinical Debridement Subcutaneous -Tissue Removed Subcutaneous -Post Debridement (cm) - Length 3.3 -Post Debridement (cm) - Width 1.3 -Post Debridement (cm) - Depth 0.3 -Total Square (Post) (cm) 4.29 -Area of Debridement (cm) - Length 3.3 -Area of Debridement (cm) - Width 1.3 -Total Square (Area) (cm) 4.29 -Tunneling No -Undermining/Tunneling No -Circular Undermining No -Wound/Ulcer Outcome Not Healed -Ulcer Cleansing Rinsed/ Irrigated with Saline -Foul Odor after Cleansing No -Bioengineered Tissue No -Bleeding Controlled with Pressure -Treatment Response Procedure Tolerated Well -Offloading Yes -Type of Offloading Surgical Shoe -Debridement - Subq, 20sq cm No #3 R Med Foot -Time 11:39 -Correct Patient Yes -Correct Side, Site, Position Yes -Correct Procedure Yes -Procedure Performed Yes -Type of Procedure Debridement -Clinical Debridement Subcutaneous -Tissue Removed Subcutaneous -Post Debridement (cm) - Length 12 -Post Debridement (cm) - Width 3 -Post Debridement (cm) - Depth 0.4 -Total Square (Post) (cm) 36 -Area of Debridement (cm) - Length 12 -Area of Debridement (cm) - Width 3 -Total Square (Area) (cm) 36 -Tunneling No -Undermining/Tunneling No -Circular Undermining No -Wound/Ulcer Outcome Not Healed -Ulcer Cleansing Rinsed/ Irrigated with Saline -Foul Odor after Cleansing No -Bioengineered Tissue No -Bleeding Controlled with Silver Nitrate -Treatment Response Procedure Tolerated Well -Offloading No -Debridement - Subq, 20sq cm No #2 R Lat foot -Time 11:40 -Correct Patient Yes -Correct Side, Site, Position Yes -Correct Procedure Yes -Procedure Performed Yes -Type of Procedure Debridement -Clinical Debridement Subcutaneous -Tissue Removed Subcutaneous -Post Debridement (cm) - Length 8.5 -Post Debridement (cm) - Width 2.5 -Post Debridement (cm) - Depth 0.4 -Total Square (Post) (cm) 21.25 -Area of Debridement (cm) - Length 8.5 -Area of Debridement (cm) - Width 2.5 -Total Square (Area) (cm) 21.25 -Tunneling No -Undermining/Tunneling No -Circular Undermining No -Wound/Ulcer Outcome Not Healed -Ulcer Cleansing Rinsed/ Irrigated with Saline -Foul Odor after Cleansing No -Bioengineered Tissue No -Bleeding Controlled with Pressure -Treatment Response Procedure Tolerated Well -Offloading Yes -Type of Offloading Surgical Shoe -Debridement - Subq, 1st 20sq cm Yes -Debridement, SubQ, ea addt'l 20sq cm 3 or part thereof Pain Scale: 0-10 Numeric Is Patient Pain Free? Yes WC - Nurse 3 - General Ulcer D/C NN Start: 08/11/23 11:07 Freq: Status: Active Protocol: Activity Type Activity Date Activity User E-sign Co-sign Detail Recorded Client Recorded Date Recorded By Document 08/11/23 11:45 [facility] Desktop 08/11/23 11:47 [facility] 08/11/23 11:45 Wound Care Center Nurse 3 #6 R DORSAL foot -Ulcer Cleansing Soap and Water -Foul Odor after Cleansing No -Other Dressing BETADINE SOAKED GAUZE -Primary Dressing Covered/Secured with Dry Gauze & Roll Gauze, Secured with Tape -Other Covering ABD; DRSG PER RB RN #5 L Med foot -Ulcer Cleansing Soap and Water -Foul Odor after Cleansing No -Other Dressing BETADINE SOAKED GAUZE -Primary Dressing Covered/Secured with Dry Gauze & Roll Gauze, Secured with Tape -Other Covering DRSG PER RB RN; ABD #3 R Med Foot -Ulcer Cleansing Rinsed/ Irrigated with Saline -Foul Odor after Cleansing No -Other Dressing BETADINE SOAKED GAUZE; DRSG PER RB RN -Primary Dressing Covered/Secured with Dry Gauze & Roll Gauze, Secured with Tape -Other Covering ABD #2 R Lat foot -Ulcer Cleansing Soap and Water -Foul Odor after Cleansing No -Other Dressing BETADINE SOAKED GAUZE; CHANTAL PER RB RN -Primary Dressing Covered/Secured with Dry Gauze & Roll Gauze, Secured with Tape -Other Covering ABD BLE -Tubular Bandage Double Layer -Size of Tubigrip Used Size E -Size E ($) 2 -Other [employer] [place] Treatment Response Procedure Tolerated Well Pain Scale: 0-10 Numeric Is Patient Pain Free? Yes WC - Visit Discharge Discharge Condition Stable Ambulatory Status Wheelchair Transportation ECF Facility Type Shelter Care Facility Assessment/Plan Assessment/Plan (1) Venous insufficiency (chronic) (peripheral): CODE(S): I87.2 - Venous insufficiency (chronic) (peripheral) PLAN: Exam performed Arterial and venous studies reviewed Patient on Coumadin Patient underwent recent venous procedure per Dr. Arvizu. This will likely help with patient's edema and wound healing moving forward. Today bilateral foot and ankle wounds were debrided excisionally down to including level of subcutaneous tissue of all nonviable tissue using a [employer] [place]-debrider. No anesthesia due to neuropathy. Hemostasis with compression. Patient tolerated procedure well. Pre and postdebridement measurements documented nursing notes. Awaiting radiograph results from custodial facility Wound cultures positive for Proteus Mirabillis, Pseudomonas aeruginosa, Enterococcus faecalis, staphylococcus stimulan, actinotignum schaalii. Continue Doxy, Cipro. Add Augmentin. Will plan for daily Betadine wet-to-dry dressing changes with overlying dry sterile dressing and Tubigrip. This to be performed by custodial. No weightbearing restrictions at current. This may change pending patient's healing status. Due to deformity advanced age, will consider BKA if there is any development of a life or limb threatening infection. At current we will continue with local wound care. 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
[2023-08-25 10:48] VITALS: BP 124/55; PULSE 70; RESP 18; TEMP 36.8
--- NOTE | 2023-08-25 11:46 | PN.PCM_ITS ---
History of Present Illness Date of Service: 08/25/23 Chief Complaint: Nonhealing bilateral lower extremity ulcers History of Wound: Mr Wilson is an 82-year-old who was brought in here from his longterm due to nonhealing bilateral lower extremity ulcers. Has had recurrent ulcerations for over 10 years with most recent episode being more severe late last year. 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 No changes today. Patient denies any fever chills nausea vomiting chest pain calf pain at current. [facility] Patient receives daily Betadine DSD bilaterally. Patient has a minimally ambulatory status due to deformity and weakness. Patient states that he does ambulate assisted by walker within the confines of his room to the bathroom. States he does this on a daily basis. No other complaints. Objective Data Objective Data Vital Signs: Vital Signs Temp Pulse Resp BP O2 Del Method 98.3 F 70 18 124/55 H Room Air 08/25/23 10:48 08/25/23 10:48 08/25/23 10:48 08/25/23 10:48 08/25/23 10:48 Oxygen Delivery Method Room Air Lab / Micro Data Micro: Microbiology 08/11/23 11:30 Wound - Right Foot Gram Stain - Final 08/11/23 11:30 Wound - Right Foot Wound Culture - Final Proteus mirabilis Pseudomonas aeruginosa Enterococcus faecalis Staphylococcus simulans 08/11/23 11:30 Wound - Right Foot Anaerobic Culture - Final Actinotignum schaalii Physical Exam Narrative Vascular: Dorsalis pedis posterior tibial pulses palpable to bilateral lower extremity. Atrophic skin changes such as shiny taut appearance noted with absent digital hair growth. Patient does have +1 pitting edema to bilateral lower extremity with hemosiderin deposits noted. Neurologic: Light touch protective sensation diminished bilateral feet. Dermatologic: Multiple full-thickness wounds to right lower extremity noted to the lateral midfoot dorsal forefoot plantar forefoot medial foot and ankle. Full-thickness wound noted to the left medial ankle. these wounds are large in length and width but are limited in depth to subcutaneous tissue. Wounds demonstrate a mixed fibrogranular base with significant periwound maceration erythema and edema. There is no to be moderate drainage from these wounds. 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 This appears to contribute to wound formation and poor ambulatory status patient. Patient has diffuse muscular weakness 4 out of 5 to bilateral lower extremity compartments. On the left lower extremity patient has an equinus contracture to the hindfoot. Debridement Note Debridement Note Post-Debridement Measurements and Additional Note: Post-Debridement Measurements/Treatment - Nurse 1 - General Ulcer Assessment Start: 08/11/23 11:07 Freq: Status: Active Protocol: [email or web address] Activity Type Activity Date Activity User E-sign Co-sign Detail Recorded Client Recorded Date Recorded By Document 08/11/23 11:07 RB Desktop 08/11/23 11:15 RB Document 08/18/23 11:21 RB Desktop 08/18/23 11:33 RB Document 08/25/23 10:48 Desktop 08/25/23 10:54 08/11/23 08/18/23 08/25/23 11:07 11:21 10:48 - Today's Visit Information Type of service Follow-up Visit Follow-up Visit Follow-up Visit (Physician/INTERMEDIATE MANAGER (Physician/INTERMEDIATE MANAGER (Physician/INTERMEDIATE MANAGER ) ) ) Arrival Mode Wheelchair Wheelchair Wheelchair Transfer Assistance Manual Manual Manual Patient Identification Verified (Name & Yes Yes Yes ) Patient Requires Transmission-Based No No Precautions Safety Precautions Fall Prevention Vital Signs Temperature (97.8 F-99.1 F) 99.1 F 97.2 F L 98.3 F Temperature Source Temporal Temporal Temporal Pulse Rate (60-100) 64 72 70 Pulse Location Monitor Monitor Monitor Respiratory Rate (12-18) 18 18 18 Respiratory rate source Observation Observation Observation Oxygen Delivery Method Room Air Blood Pressure (90/60-120/80) 107/55 L 117/68 124/55 H Blood Pressure Mean (mm Hg) 72 84 78 Source Monitor Monitor Monitor Position Semi-Fowlers Semi-Fowlers Semi-Fowlers Blood Pressure Location Left Arm Left Arm Right Arm History Since Last Visit- (Skip if this is Patient's initial visit) Have you changed medications since your No No No last visit? Any new allergies or adverse reactions No No No Had a fall/change in ADL's that may No No No increase risk of falls Signs or symptoms of abuse and/or No No No neglect since last visit Have you been in the hospital since your No No No last visit? Has dressing in place as prescribed Yes Yes Yes Has compression in place as prescribed Yes Yes Yes Has offloadiing in place as prescribed Yes No Yes Experienced any changes in pain level or No No No management Left Footwear Surgical Shoe Wedge Shoe with pressure relief insole Right Footwear Surgical Shoe Wedge Shoe with pressure relief insole Pain Scale: 0-10 Numeric Is Patient Pain Free? Yes Yes Yes WC - Nurse 1 - General Ulcer Measurement Start: 08/11/23 11:07 Freq: Status: Active Protocol: Activity Type Activity Date Activity User E-sign Co-sign Detail Recorded Client Recorded Date Recorded By Document 08/11/23 11:07 RB Desktop 08/11/23 11:15 RB Document 08/18/23 11:21 RB Desktop 08/18/23 11:33 RB Document 08/25/23 10:48 GM Desktop 08/25/23 10:54 GM 08/11/23 08/18/23 08/25/23 11:07 11:21 10:48 Wound Center Nurse 1 7-right plantar foot -Current Size (cm) - Length 0.1 -Current Size (cm) - Width 0.1 -Current Size (cm) - Depth 0.1 -Total Square Cm 0.01 -Photo Taken No -Epithelialization None Present -Tunneling No -Undermining/Tunneling No -Circular Undermining No -Exudate Amt Medium -Exudate Type Yellow/Green -Wound Margin Thickened -Granulation Amt Small (1-33%) -Granulation Quality [place] -Slough/Fibrin Yes -Necrosis Amt Large (67-100%) -Necrotic Tissue Type Adherent Slough -Structure Exposed N/A -Texture ([place]ul[place]-wound Skin Appearance) Assessed -Moisture ([place]-wound Skin Appearance) Assessed,Dry/ Scaly -Color ([place]-wound Skin Appearance) Assessed -Temperature ([place]-wound Skin No Abnormality Appearance) (Pt Warm) -Ulcer Cleansing Soap and Water -Anesthetic Used 4% Lidocaine Solution #6 R DORSAL foot -Combined with other wound No No -Current Size (cm) - Length 0.1 0.1 0.1 -Current Size (cm) - Width 0.1 0.1 0.1 -Current Size (cm) - Depth 0.1 0.1 0.1 -Total Square Cm 0.01 0.01 0.01 -Photo Taken No -Epithelialization None Present -Tunneling No No No -Undermining/Tunneling No No No -Circular Undermining No No No -Exudate Amt Large Large -Exudate Type Serosanguineous Yellow/Green -Wound Margin Fibrotic Scar, Distinct, Thickened Scar Outline Attached -Granulation Amt Medium (34-66%) Medium (34-66%) None Present (0 %) -Granulation Quality [place] -Slough/Fibrin Yes Yes Yes -Necrosis Amt Large (67-100%) Medium (34-66%) Large (67-100%) -Necrotic Tissue Type Adherent Slough Adherent Slough Adherent Slough -Structure Exposed N/A N/A N/A -Texture ([place]-wound Skin Appearance) Assessed Assessed Assessed -Moisture ([place]-wound Skin Appearance) Assessed,Dry/ Assessed Assessed Scaly -Color ([place]-wound Skin Appearance) Assessed, Hemosiderin Assessed Erythema Staining -Temperature ([place]-wound Skin No Abnormality No Abnormality No Abnormality Appearance) (Pt Warm) (Pt Warm) (Pt Warm) -Tenderness on Palpation ([place]-wound No No No Skin Appearance) -Ulcer Cleansing Wound Cleanser Wound Cleanser Soap and Water -Foul Odor after Cleansing No Yes, Due to No Product Use -Anesthetic Used 4% Lidocaine 5% Lidocaine 4% Lidocaine Solution Gel Solution #5 L Med foot -Combined with other wound No No -Current Size (cm) - Length 0.1 0.1 0.1 -Current Size (cm) - Width 0.1 0.1 0.1 -Current Size (cm) - Depth 0.1 0.1 0.1 -Total Square Cm 0.01 0.01 0.01 -Photo Taken No -Epithelialization None Present -Tunneling No No -Undermining/Tunneling No No No -Circular Undermining No No No -Change in Wound Grade/Stage No -Exudate Amt Large Medium -Exudate Type Serosanguineous Serosanguineous Yellow/Green -Wound Margin Distinct, Distinct, Distinct, Outline Outline Outline Attached Attached Attached -Granulation Amt Medium (34-66%) Medium (34-66%) Small (1-33%) -Granulation Quality [place] -Slough/Fibrin Yes Yes -Necrosis Amt Large (67-100%) None Present (0 %) -Necrotic Tissue Type Adherent Slough Adherent Slough Adherent Slough -Structure Exposed N/A N/A N/A -Texture ([place]-wound Skin Appearance) Assessed Assessed Assessed -Moisture ([place]-wound Skin Appearance) Assessed Assessed Assessed,Dry/ Scaly -Color ([place]-wound Skin Appearance) Erythema Hemosiderin Assessed Staining -Temperature ([place]-wound Skin No Abnormality No Abnormality No Abnormality Appearance) (Pt Warm) (Pt Warm) (Pt Warm) -Tenderness on Palpation ([place]-wound No No Skin Appearance) -Ulcer Cleansing Wound Cleanser Wound Cleanser Soap and Water -Foul Odor after Cleansing No No No -Anesthetic Used 4% Lidocaine 5% Lidocaine 4% Lidocaine Solution Gel Solution #3 R Med Foot -Combined with other wound No No -Current Size (cm) - Length 0.1 0.1 0.1 -Current Size (cm) - Width 0.1 0.1 0.1 -Current Size (cm) - Depth 0.1 0.1 0.1 -Total Square Cm 0.01 0.01 0.01 -Photo Taken No -Tunneling No No No -Undermining/Tunneling No No No -Circular Undermining No No No -Exudate Amt Large Medium Medium -Exudate Type Serosanguineous Serosanguineous Yellow/Green -Wound Margin Distinct, Distinct, Distinct, Outline Outline Outline Attached Attached Attached -Granulation Amt Medium (34-66%) Medium (34-66%) -Granulation Quality [place] -Slough/Fibrin Yes Yes -Necrosis Amt Large (67-100%) Large (67-100%) None Present (0 %) -Necrotic Tissue Type Adherent Slough Eschar Adherent Slough -Structure Exposed N/A N/A N/A -Texture ([place]ul[place]-wound Skin Appearance) Assessed Assessed Assessed -Moisture ([place]-wound Skin Appearance) Assessed Assessed Assessed -Color ([place]-wound Skin Appearance) Assessed, Hemosiderin Assessed Erythema Staining -Temperature ([place]-wound Skin No Abnormality No Abnormality No Abnormality Appearance) (Pt Warm) (Pt Warm) (Pt Warm) -Tenderness on Palpation ([place]ul[place]-wound No No No Skin Appearance) -Ulcer Cleansing Wound Cleanser Wound Cleanser Soap and Water -Foul Odor after Cleansing No No No -Anesthetic Used 4% Lidocaine 5% Lidocaine 4% Lidocaine Solution Gel Solution #2 R Lat foot -Combined with other wound No No -Current Size (cm) - Length 0.1 0.1 0.1 -Current Size (cm) - Width 0.1 0.1 0.1 -Current Size (cm) - Depth 0.1 0.1 0.1 -Total Square Cm 0.01 0.01 0.01 -Photo Taken No -Tunneling No No No -Undermining/Tunneling No No No -Circular Undermining No No No -Exudate Amt Large Medium Medium -Exudate Type Serosanguineous Serosanguineous Yellow/Green -Wound Margin Distinct, Distinct, Distinct, Outline Outline Outline Attached Attached Attached -Granulation Amt Medium (34-66%) Medium (34-66%) Small (1-33%) -Granulation Quality [place] -Slough/Fibrin Yes Yes -Necrosis Amt Medium (34-66%) Medium (34-66%) -Necrotic Tissue Type Adherent Slough Adherent Slough Adherent Slough -Structure Exposed N/A N/A N/A -Texture ([place]ul[place]-wound Skin Appearance) Assessed Assessed Assessed -Moisture ([place]ul[place]-wound Skin Appearance) Assessed Assessed Assessed,Dry/ Scaly -Color ([place]-wound Skin Appearance) Erythema Hemosiderin Assessed Staining -Temperature ([place]-wound Skin No Abnormality No Abnormality No Abnormality Appearance) (Pt Warm) (Pt Warm) (Pt Warm) -Tenderness on Palpation ([place]uliet-wound No No No Skin Appearance) -Ulcer Cleansing Wound Cleanser Wound Cleanser Soap and Water -Foul Odor after Cleansing No No -Anesthetic Used 4% Lidocaine 5% Lidocaine 4% Lidocaine Solution Gel Solution Lower Limb Edema Present Yes Right Calf (cm) 34 36.4 Right Ankle (cm) 26.2 25.3 Left Calf (cm) 33.5 33.7 Left Ankle (cm) 25 26.5 WC - Nurse 2 - General Ulcer CM Notes Start: 08/11/23 11:07 Freq: Status: Active Protocol: Activity Type Activity Date Activity User E-sign Co-sign Detail Recorded Client Recorded Date Recorded By Document 08/11/23 11:38 Laptop 08/11/23 11:41 Document 08/18/23 11:57 [id number] 08/18/23 12:01 Document 08/25/23 11:16 Laptop 08/25/23 11:20 08/11/23 08/18/23 08/25/23 11:38 11:57 11:16 Wound Center Nurse 2 7-right plantar foot -Time 12:00 11:16 -Correct Patient Yes Yes -Correct Side, Site, Position Yes Yes -Correct Procedure Yes Yes -Procedure Performed Yes Yes -Type of Procedure Debridement Debridement -Clinical Debridement Subcutaneous Subcutaneous -Tissue Removed Subcutaneous Subcutaneous -Post Debridement (cm) - Length 2.5 1.8 -Post Debridement (cm) - Width 1.0 0.8 -Post Debridement (cm) - Depth 0.4 0.2 -Total Square (Post) (cm) 2.50 1.44 -Area of Debridement (cm) - Length 2.5 1.8 -Area of Debridement (cm) - Width 1.0 0.8 -Total Square (Area) (cm) 2.50 1.44 -Tunneling No No -Undermining/Tunneling No No -Circular Undermining No No -Wound/Ulcer Outcome Not Healed Not Healed -Ulcer Cleansing Rinsed/ Rinsed/ Irrigated with Irrigated with Saline Saline -Foul Odor after Cleansing No No -Bioengineered Tissue No No -Bleeding Controlled with Pressure Pressure -Treatment Response Procedure Procedure Tolerated Well Tolerated Well -Offloading Yes Yes -Type of Offloading Surgical Shoe Surgical Shoe -Debridement - Subq, 1st 20sq cm Yes No -Debridement, SubQ, ea addt'l 20sq cm 2 or part thereof #6 R DORSAL foot -Time 11:38 11:57 11:17 -Correct Patient Yes Yes Yes -Correct Side, Site, Position Yes Yes Yes -Correct Procedure Yes Yes Yes -Procedure Performed Yes Yes Yes -Type of Procedure Debridement Debridement Debridement -Clinical Debridement Subcutaneous Subcutaneous Subcutaneous -Tissue Removed Subcutaneous Subcutaneous Subcutaneous -Post Debridement (cm) - Length 2.0 5.7 5.5 -Post Debridement (cm) - Width 6.2 1.7 1.0 -Post Debridement (cm) - Depth 0.1 0.4 0.2 -Total Square (Post) (cm) 12.40 9.69 5.50 -Area of Debridement (cm) - Length 2.0 5.7 5.5 -Area of Debridement (cm) - Width 6.2 1.7 1.0 -Total Square (Area) (cm) 12.40 9.69 5.50 -Tunneling No No No -Undermining/Tunneling No No No -Circular Undermining No No No -Wound/Ulcer Outcome Not Healed Not Healed Not Healed -Ulcer Cleansing Rinsed/ Rinsed/ Rinsed/ Irrigated with Irrigated with Irrigated with Saline Saline Saline -Foul Odor after Cleansing No No No -Bioengineered Tissue No No No -Bleeding Controlled with Pressure Pressure Pressure -Treatment Response Procedure Procedure Procedure Tolerated Well Tolerated Well Tolerated Well -Offloading Yes Yes Yes -Type of Offloading Surgical Shoe Surgical Shoe Surgical Shoe -Debridement - Subq, 1st 20sq cm No No No #5 L Med foot -Time 11: 11:58 11:17 -Correct Patient Yes Yes Yes -Correct Side, Site, Position Yes Yes Yes -Correct Procedure Yes Yes Yes -Procedure Performed Yes Yes Yes -Type of Procedure Debridement Debridement Debridement -Clinical Debridement Subcutaneous Subcutaneous Subcutaneous -Tissue Removed Subcutaneous Subcutaneous Subcutaneous -Post Debridement (cm) - Length 3.3 1.2 2.4 -Post Debridement (cm) - Width 1.3 1.2 1.4 -Post Debridement (cm) - Depth 0.3 0.2 0.2 -Total Square (Post) (cm) 4.29 1.44 3.36 -Area of Debridement (cm) - Length 3.3 1.2 2.4 -Area of Debridement (cm) - Width 1.3 1.2 1.4 -Total Square (Area) (cm) 4.29 1.44 3.36 -Tunneling No No No -Undermining/Tunneling No No No -Circular Undermining No No No -Wound/Ulcer Outcome Not Healed Not Healed Not Healed -Ulcer Cleansing Rinsed/ Rinsed/ Rinsed/ Irrigated with Irrigated with Irrigated with Saline Saline Saline -Foul Odor after Cleansing No No No -Bioengineered Tissue No No No -Bleeding Controlled with Pressure Pressure Pressure -Treatment Response Procedure Procedure Procedure Tolerated Well Tolerated Well Tolerated Well -Offloading Yes Yes Yes -Type of Offloading Surgical Shoe Surgical Shoe Surgical Shoe -Debridement - Subq, 1st 20sq cm No No No #3 R Med Foot -Time 11 11:59 11:18 -Correct Patient Yes Yes Yes -Correct Side, Site, Position Yes Yes Yes -Correct Procedure Yes Yes Yes -Procedure Performed Yes Yes Yes -Type of Procedure Debridement Debridement Debridement -Clinical Debridement Subcutaneous Subcutaneous Subcutaneous -Tissue Removed Subcutaneous Subcutaneous Subcutaneous -Post Debridement (cm) - Length 12 11 11.5 -Post Debridement (cm) - Width 3 3.1 2.5 -Post Debridement (cm) - Depth 0.4 0.4 0.2 -Total Square (Post) (cm) 36 34.1 28.75 -Area of Debridement (cm) - Length 12 11 11.5 -Area of Debridement (cm) - Width 3 3.1 2.5 -Total Square (Area) (cm) 36 34.1 28.75 -Tunneling No No No -Undermining/Tunneling No No No -Circular Undermining No No No -Wound/Ulcer Outcome Not Healed Not Healed Not Healed -Ulcer Cleansing Rinsed/ Rinsed/ Rinsed/ Irrigated with Irrigated with Irrigated with Saline Saline Saline -Foul Odor after Cleansing No No No -Bioengineered Tissue No No No -Bleeding Controlled with Silver Nitrate Pressure Pressure -Treatment Response Procedure Procedure Procedure Tolerated Well Tolerated Well Tolerated Well -Offloading No Yes Yes -Type of Offloading Surgical Shoe Surgical Shoe -Debridement - Subq, 1st 20sq cm No No No #2 R Lat foot -Time 11:40 11:59 11:19 -Correct Patient Yes Yes Yes -Correct Side, Site, Position Yes Yes Yes -Correct Procedure Yes Yes Yes -Procedure Performed Yes Yes Yes -Type of Procedure Debridement Debridement Debridement -Clinical Debridement Subcutaneous Subcutaneous Subcutaneous -Tissue Removed Subcutaneous Subcutaneous Subcutaneous -Post Debridement (cm) - Length 8.5 6.8 8.0 -Post Debridement (cm) - Width 2.5 1.7 2.0 -Post Debridement (cm) - Depth 0.4 0.4 0.2 -Total Square (Post) (cm) 21.25 11.56 16.00 -Area of Debridement (cm) - Length 8.5 6.8 8.0 -Area of Debridement (cm) - Width 2.5 1.7 2.0 -Total Square (Area) (cm) 21.25 11.56 16.00 -Tunneling No No No -Undermining/Tunneling No No No -Circular Undermining No No No -Wound/Ulcer Outcome Not Healed Not Healed Not Healed -Ulcer Cleansing Rinsed/ Rinsed/ Rinsed/ Irrigated with Irrigated with Irrigated with Saline Saline Saline -Foul Odor after Cleansing No No No -Bioengineered Tissue No No No -Bleeding Controlled with Pressure Pressure Pressure -Treatment Response Procedure Procedure Procedure Tolerated Well Tolerated Well Tolerated Well -Offloading Yes No Yes -Type of Offloading Surgical Shoe Surgical Shoe -Debridement - Subq, 1st 20sq cm Yes No Yes -Debridement, SubQ, ea addt'l 20sq cm 3 2 or part thereof Pain Scale: 0-10 Numeric Is Patient Pain Free? Yes Yes Yes WC - Nurse 3 - General Ulcer D/C NN Start: 08/11/23 11:07 Freq: Status: Active Protocol: Activity Type Activity Date Activity User E-sign Co-sign Detail Recorded Client Recorded Date Recorded By Document 08/11/23 11:45 [facility] Desktop 08/11/23 11:47 [facility] Document 08/18/23 12:11 RB Desktop 08/18/23 12:13 RB Document 08/25/23 11:30 Desktop 08/25/23 11:32 08/11/23 08/18/23 08/25/23 11:45 12:11 11:30 Wound Care Center Nurse 3 7-right plantar foot -Ulcer Cleansing betadine gauze -Other Dressing betadine gauze -Primary Dressing Covered/Secured with Dry Gauze & Roll Gauze, Secured with Tape #6 R DORSAL foot -Ulcer Cleansing Soap and Water Soap and Water -Foul Odor after Cleansing No No -Primary Dressing Applied Other -Other Dressing BETADINE SOAKED betadine gauze abds GAUZE -Primary Dressing Covered/Secured with Dry Gauze & Dry Gauze & Dry Gauze & Roll Gauze, Roll Gauze, Roll Gauze, Secured with Secured with Secured with Tape Tape Tape -Other Covering ABD; DRSG PER RB RN -Wound Comment(s) betadine gauze #5 L Med foot -Ulcer Cleansing Soap and Water Soap and Water -Foul Odor after Cleansing No No -Primary Dressing Applied Other -Other Dressing BETADINE SOAKED betadine gauze abds GAUZE -Primary Dressing Covered/Secured with Dry Gauze & Dry Gauze & Dry Gauze & Roll Gauze, Roll Gauze, Roll Gauze, Secured with Secured with Secured with Tape Tape Tape -Other Covering DRSG PER RB RN; ABD #3 R Med Foot -Ulcer Cleansing Rinsed/ Soap and Water Irrigated with Saline -Foul Odor after Cleansing No No -Other Dressing BETADINE SOAKED betadine gauze GAUZE; DRSG PER RB RN -Primary Dressing Covered/Secured with Dry Gauze & Dry Gauze & Dry Gauze Roll Gauze, Roll Gauze, Secured with Secured with Tape Tape -Other Covering ABD #2 R Lat foot -Ulcer Cleansing Soap and Water Soap and Water -Foul Odor after Cleansing No No -Other Dressing BETADINE SOAKED betadine gauze GAUZE; DRSG PER RB RN -Primary Dressing Covered/Secured with Dry Gauze & Dry Gauze & Dry Gauze Roll Gauze, Roll Gauze, Secured with Secured with Tape Tape -Other Covering ABD BLE -Compression Wrap Cole Wrap -Tubular Bandage Double Layer -Size of Tubigrip Used Size E -Size E ($) 2 -Other [employer]BI cole bilateral 2 cole wraps for each lower extremity Treatment Response Procedure Procedure Tolerated Well Tolerated Well Pain Scale: 0-10 Numeric Is Patient Pain Free? Yes Yes Yes Teaching: Wound Center Compression Wraps & Stockings -Person Taught Patient -Teaching Method Discussion -Response to teaching Verbalize understanding WC - Visit Discharge Discharge Condition Stable Stable Stable Ambulatory Status Wheelchair Wheelchair Wheelchair Transportation ECF Private Auto Private Auto Medication Reconcilliation completed & No Yes provided to patient/care provider Clinical Summary of Care Provided Yes Yes Facility Type Intermediate Care Facility Assessment/Plan Assessment/Plan (1) Venous insufficiency (chronic) (peripheral): CODE(S): I87.2 - Venous insufficiency (chronic) (peripheral) PLAN: Exam performed Arterial and venous studies reviewed Patient on Coumadin Patient underwent recent venous procedure per Dr. Arvizu. This will likely help with patient's edema and wound healing moving forward. Today bilateral foot and ankle wounds were debrided excisionally down to including level of subcutaneous tissue of all nonviable tissue using a Misnoix Lavalette-debrider. No anesthesia due to neuropathy. Hemostasis with compression. Patient tolerated procedure well. Pre and postdebridement measurements documented nursing notes. Awaiting [facility]ograph results from [facility] facility Wound cultures positive for Proteus Mirabillis, Pseudomonas aeruginosa, Enterococcus faecalis, staphylococcus stimulan, actinotignum schaalii. Continue Doxy, Cipro. Add Augmentin. Will plan for daily Betadine wet-to-dry dressing changes with overlying dry sterile dressing and Tubigrip. This to be performed by longterm. No weightbearing restrictions at current. This may change pending patient's healing status. Due to deformity advanced age, will consider BKA if there is any development of a life or limb threatening infection. At current we will continue with local wound care. 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
== END 2023-08-27 23:59 | disposition home or self-care (01) ==
LOC: WC 10:30
PROVIDERS: PCP Family Medicine; Referring Provider Family Medicine; Visit Provider Podiatrist
DX: I87.2 Venous insufficiency (chronic) (peripheral) (principal); L97.512 Non-pressure 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 foot with fat layer exposed; L97.522 Non-pressure chronic ulcer of other part of left foot with fat layer exposed; I11.0 Hypertensive heart disease with heart failure; I50.9 Heart failure, unspecified; E11.59 Type 2 diabetes mellitus with other circulatory complications; E11.42 Type 2 diabetes mellitus with diabetic polyneuropathy; E11.51 Type 2 diabetes mellitus with diabetic peripheral angiopathy without gangrene; M24.561 Contracture, right knee; Q66.11 Congenital talipes calcaneovarus, right foot; Z79.84 Long term (current) use of oral hypoglycemic drugs; E78.5 Hyperlipidemia, unspecified; R53.1 Weakness; L03.115 Cellulitis of right lower limb; I73.89 Other specified peripheral vascular diseases
CPT/HCPCS: 11042; 11045; 87070; 87075; 87077; 87186; 87205

== ENCOUNTER 2023-09-22 10:30 | Outpatient (RCR) | payer MEDICARE, BC, SELFPAY ==
[2023-08-28 00:25] VITALS: BP 124/55; PULSE 70; RESP 18; TEMP 36.8
--- NOTE | 2023-09-01 11:19 | PN.PCM_ITS ---
History of Present Illness Date of Service: 09/01/23 Chief Complaint: Nonhealing bilateral lower extremity ulcers History of Wound: Mr Wilson is an 82-year-old who was brought in here from his alf due to nonhealing bilateral lower extremity ulcers. Has had recurrent ulcerations for over 10 years with most recent episode being more severe late last year. 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 No changes today. Patient denies any fever chills nausea vomiting chest pain calf pain at current. Patient resides in senior living facility. Patient receives daily Betadine DSD bilaterally. Patient has a minimally ambulatory status due to deformity and weakness. Patient states that he does ambulate assisted by walker within the confines of his room to the bathroom. States he does this on a daily basis. No other complaints. Objective Data Objective Data Vital Signs: Vital Signs Temp Pulse Resp BP 98.3 F 70 18 124/55 H 08/28/23 00:25 08/28/23 00:25 08/28/23 00:25 08/28/23 00:25 Physical Exam Narrative Vascular: Dorsalis pedis posterior tibial pulses palpable to bilateral lower extremity. Atrophic skin changes such as shiny taut appearance noted with absent digital hair growth. Patient does have +1 pitting edema to bilateral lower extremity with hemosiderin deposits noted. Neurologic: Light touch protective sensation diminished bilateral feet. Dermatologic: Multiple full-thickness wounds to right lower extremity noted to the lateral midfoot dorsal forefoot plantar forefoot medial foot and ankle. Full-thickness wound noted to the left medial ankle. these wounds are large in length and width but are limited in depth to subcutaneous tissue. Wounds demonstrate a mixed fibrogranular base with significant periwound maceration erythema and edema. There is no to be moderate drainage from these wounds. 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 This appears to contribute to wound formation and poor ambulatory status patient. Patient has diffuse muscular weakness 4 out of 5 to bilateral lower extremity compartments. On the left lower extremity patient has an equinus contracture to the hindfoot. Assessment/Plan Assessment/Plan (1) Venous insufficiency (chronic) (peripheral): CODE(S): I87.2 - Venous insufficiency (chronic) (peripheral) PLAN: Exam performed Arterial and venous studies reviewed Patient on Coumadin Patient underwent recent venous procedure per Dr. Arvizu. This will likely help with patient's edema and wound healing moving forward. Today bilateral foot and ankle wounds were debrided excisionally down to including level of subcutaneous tissue of all nonviable tissue using a Misnoix Marcus-debrider. No anesthesia due to neuropathy. Hemostasis with compression. Patient tolerated procedure well. Pre and postdebridement measurements documented nursing notes. Awaiting radiograph results from senior living facility Wound cultures positive for Proteus Mirabillis, Pseudomonas aeruginosa, Enterococcus faecalis, staphylococcus stimulan, actinotignum schaalii. Continue Doxy, Cipro and Augmentin. Patient will complete 10-day course. Will plan for daily Betadine wet-to-dry dressing changes with overlying dry sterile dressing and Tubigrip. This to be performed by alf. No weightbearing restrictions at current. This may change pending patient's healing status. Due to deformity advanced age, will consider BKA if there is any development of a life or limb threatening infection. At current we will continue with local wound care. 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
[2023-09-01 12:11] VITALS: BP 117/56; PULSE 75; RESP 18; TEMP 37.1
[2023-09-08 10:59] VITALS: BP 100/61; PULSE 71; RESP 18; TEMP 36.2
--- NOTE | 2023-09-08 11:42 | PCM.WC.PN ---
History of Present Illness Date of Service: 09/08/23 Chief Complaint: Nonhealing bilateral lower extremity ulcers History of Wound: Mr Wilson is an 82-year-old who was brought in here from his intermediate due to nonhealing bilateral lower extremity ulcers. Has had recurrent ulcerations for over 10 years with most recent episode being more severe late last year. 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 No changes today. Patient denies any fever chills nausea vomiting chest pain calf pain at current. Patient resides in alf facility. Patient receives daily Betadine DSD bilaterally. Patient has a minimally ambulatory status due to deformity and weakness. Patient states that he does ambulate assisted by walker within the confines of his room to the bathroom. States he does this on a daily basis. No other complaints. Objective Data Objective Data Vital Signs: Vital Signs Temp Pulse Resp BP 97.1 F L 71 18 100/61 09/08/23 10:59 09/08/23 10:59 09/08/23 10:59 09/08/23 10:59 Physical Exam Narrative Vascular: Dorsalis pedis posterior tibial pulses palpable to bilateral lower extremity. Atrophic skin changes such as shiny taut appearance noted with absent digital hair growth. Patient does have +1 pitting edema to bilateral lower extremity with hemosiderin deposits noted. Neurologic: Light touch protective sensation diminished bilateral feet. Dermatologic: Multiple full-thickness wounds to right lower extremity noted to the lateral midfoot dorsal forefoot plantar forefoot medial foot and ankle. Full-thickness wound noted to the left medial ankle. these wounds are large in length and width but are limited in depth to subcutaneous tissue. Wounds demonstrate a mixed fibrogranular base with significant periwound maceration erythema and edema. There is no to be moderate drainage from these wounds. 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 This appears to contribute to wound formation and poor ambulatory status patient. Patient has diffuse muscular weakness 4 out of 5 to bilateral lower extremity compartments. On the left lower extremity patient has an equinus contracture to the hindfoot. Debridement Note Debridement Note Post-Debridement Measurements and Additional Note: Post-Debridement Measurements/Treatment WC - Nurse 1 - General Ulcer Assessment Start: 09/01/23 11:26 Freq: Status: Active Protocol: [email or web address].LOWEXT Activity Type Activity Date Activity User E-sign Co-sign Detail Recorded Client Recorded Date Recorded By Document 09/01/23 12:11 RB [id number] 09/01/23 12:12 RB Document 09/08/23 10:59 RB [id number] 09/08/23 11:04 RB 09/01/23 09/08/23 12:11 10:59 - Today's Visit Information Type of service Follow-up Visit Follow-up Visit (Physician/CRUSHER AND BINDER OPERATOR (Physician/CRUSHER AND BINDER OPERATOR ) ) Arrival Mode Wheelchair Wheelchair Transfer Assistance Manual Manual Transfer Assist (Other) TWO PEOPLE WITH WALKER Patient Identification Verified (Name & Yes Yes ) Patient Requires Transmission-Based No Precautions Vital Signs Temperature (97.8 F-99.1 F) 98.8 F 97.1 F L Temperature Source Temporal Temporal Pulse Rate (60-100) 75 71 Pulse Location Monitor Monitor Respiratory Rate (12-18) 18 18 Respiratory rate source Observation Observation Blood Pressure (90/60-120/80) 117/56 L 100/61 Blood Pressure Mean (mm Hg) 76 74 Source Monitor Monitor Position Semi-Fowlers Sitting Blood Pressure Location Left Arm Left Arm History Since Last Visit- (Skip if this is Patient's initial visit) Have you changed medications since your No No last visit? Any new allergies or adverse reactions No No Had a fall/change in ADL's that may No No increase risk of falls Signs or symptoms of abuse and/or No No neglect since last visit Have you been in the hospital since your No No last visit? Has dressing in place as prescribed Yes Yes Has compression in place as prescribed Yes Yes Has offloadiing in place as prescribed No No Experienced any changes in pain level or No No management Pain Scale: 0-10 Numeric Is Patient Pain Free? Yes No bilat lower legs -Description Aching -Intensity 3 -Duration (hours) Chronic -Pain Behavior Withdrawal from Touch -Pain Aggravating Factors Changing Position, Debridement -Alleviating Factors/Interventions Medication -Effectiveness of Alleviating Factor/ Minimally Intervention effective WC - Nurse 1 - General Ulcer Measurement Start: 09/01/23 11:26 Freq: Status: Active Protocol: Activity Type Activity Date Activity User E-sign Co-sign Detail Recorded Client Recorded Date Recorded By Document 09/01/23 12:11 RB [id number] 09/01/23 12:12 RB Document 09/08/23 10:59 RB [id number] 09/08/23 11:04 RB 09/01/23 09/08/23 12:11 10:59 Wound Center Nurse 1 7-right plantar foot -Combined with other wound No -Current Size (cm) - Length 0.1 -Current Size (cm) - Width 0.1 -Current Size (cm) - Depth 0.1 -Total Square Cm 0.01 -Exudate Amt Large -Exudate Type Serosanguineous -Wound Margin Distinct, Outline Attached -Granulation Amt Medium (34-66%) -Granulation Quality [place] -Slough/Fibrin Yes -Necrosis Amt Medium (34-66%) -Necrotic Tissue Type Adherent Slough -Structure Exposed N/A -Texture ([place]ul[place]-wound Skin Appearance) Assessed -Moisture ([place]ul[place]-wound Skin Appearance) Dry/Scaly -Color ([place]uliet-wound Skin Appearance) Assessed -Temperature ([place]ul[place]-wound Skin No Abnormality Appearance) (Pt Warm) -Tenderness on Palpation ([place]ul[place]-wound No Skin Appearance) -Ulcer Cleansing Wound Cleanser -Foul Odor after Cleansing No -Anesthetic Used 4% Lidocaine Solution #6 R DORSAL foot -Current Size (cm) - Length 0.1 -Current Size (cm) - Width 0.1 -Current Size (cm) - Depth 0.1 -Total Square Cm 0.01 -Exudate Amt Large -Exudate Type Serosanguineous -Wound Margin Distinct, Outline Attached -Granulation Amt Medium (34-66%) -Granulation Quality [place] -Slough/Fibrin Yes -Necrosis Amt Medium (34-66%) -Necrotic Tissue Type Adherent Slough -Structure Exposed N/A -Texture (Yuliet-wound Skin Appearance) Assessed -Moisture ([place]ul[place]-wound Skin Appearance) Assessed,Dry/ Scaly -Color ([place]uliet-wound Skin Appearance) Assessed -Temperature ([place]-wound Skin No Abnormality Appearance) (Pt Warm) -Tenderness on Palpation ([place]uliet-wound No Skin Appearance) -Ulcer Cleansing Wound Cleanser -Foul Odor after Cleansing No -Anesthetic Used 4% Lidocaine Solution #5 L Med foot -Current Size (cm) - Length 0.1 -Current Size (cm) - Width 0.1 -Current Size (cm) - Depth 0.1 -Total Square Cm 0.01 -Exudate Amt Large -Exudate Type Serosanguineous -Wound Margin Distinct, Outline Attached -Granulation Amt Medium (34-66%) -Granulation Quality [place] -Slough/Fibrin Yes -Necrosis Amt Medium (34-66%) -Necrotic Tissue Type Adherent Slough -Texture (Yuliet-wound Skin Appearance) Assessed -Moisture ([place]ul[place]-wound Skin Appearance) Assessed -Color (Yuliet-wound Skin Appearance) Assessed -Temperature ([place]ul[place]-wound Skin No Abnormality Appearance) (Pt Warm) -Ulcer Cleansing Wound Cleanser -Foul Odor after Cleansing No -Anesthetic Used 4% Lidocaine Solution #3 R Med Foot -Current Size (cm) - Length 0.1 -Current Size (cm) - Width 0.1 -Current Size (cm) - Depth 0.1 -Total Square Cm 0.01 -Exudate Amt Large -Exudate Type Serosanguineous -Wound Margin Distinct, Outline Attached -Granulation Amt Medium (34-66%) -Granulation Quality [place] -Slough/Fibrin Yes -Necrosis Amt Large (67-100%) -Necrotic Tissue Type Adherent Slough -Structure Exposed N/A -Texture (Yuliet-wound Skin Appearance) Assessed -Moisture (Yuliet-wound Skin Appearance) Assessed -Color (Yuliet-wound Skin Appearance) Assessed -Temperature ([place]ul[place]-wound Skin No Abnormality Appearance) (Pt Warm) -Tenderness on Palpation ([place]ul[place]-wound No Skin Appearance) -Ulcer Cleansing Wound Cleanser -Foul Odor after Cleansing No -Anesthetic Used 4% Lidocaine Solution #2 R Lat foot -Current Size (cm) - Length 0.1 -Current Size (cm) - Width 0.1 -Current Size (cm) - Depth 0.1 -Total Square Cm 0.01 -Exudate Amt Large -Exudate Type Serosanguineous -Wound Margin Distinct, Outline Attached -Granulation Amt Medium (34-66%) -Granulation Quality [place] -Slough/Fibrin Yes -Necrosis Amt Medium (34-66%) -Necrotic Tissue Type Adherent Slough -Structure Exposed N/A -Texture (Yuliet-wound Skin Appearance) Assessed -Moisture (Yuliet-wound Skin Appearance) Assessed -Color (Yuliet-wound Skin Appearance) Assessed -Temperature ([place]ul[place]-wound Skin No Abnormality Appearance) (Pt Warm) -Tenderness on Palpation (Yuliet-wound No Skin Appearance) -Ulcer Cleansing Wound Cleanser -Foul Odor after Cleansing No -Anesthetic Used 4% Lidocaine Solution Lower Limb Edema Present Yes Yes Right Calf (cm) 32 30.2 Right Ankle (cm) 24 22 Left Calf (cm) 32.2 32.2 Left Ankle (cm) 24 22.5 WC - Nurse 2 - General Ulcer CM Notes Start: 09/01/23 11:26 Freq: Status: Active Protocol: Activity Type Activity Date Activity User E-sign Co-sign Detail Recorded Client Recorded Date Recorded By Document 09/01/23 16:23 Laptop 09/01/23 16:32 Document 09/08/23 11:04 Laptop 09/08/23 11:13 09/01/23 09/08/23 16:23 11:04 Wound Center Nurse 2 7-right plantar foot -Time 16:23 11:08 -Correct Patient Yes Yes -Correct Side, Site, Position Yes Yes -Correct Procedure Yes Yes -Procedure Performed Yes Yes -Type of Procedure Debridement Debridement -Clinical Debridement Subcutaneous Subcutaneous -Tissue Removed Subcutaneous Subcutaneous -Post Debridement (cm) - Length 2.5 2.5 -Post Debridement (cm) - Width 1.2 1.0 -Post Debridement (cm) - Depth 0.5 0.2 -Total Square (Post) (cm) 3.00 2.50 -Area of Debridement (cm) - Length 2.5 2.5 -Area of Debridement (cm) - Width 1.2 1.0 -Total Square (Area) (cm) 3.00 2.50 -Tunneling No No -Undermining/Tunneling No No -Circular Undermining No No -Wound/Ulcer Outcome Not Healed Not Healed -Ulcer Cleansing Rinsed/ Rinsed/ Irrigated with Irrigated with Saline Saline -Foul Odor after Cleansing No No -Bioengineered Tissue No No -Bleeding Controlled with Pressure Pressure -Treatment Response Procedure Procedure Tolerated Well Tolerated Well -Offloading Yes No -Type of Offloading Surgical Shoe -Debridement - Subq, 1st 20sq cm No No #6 R DORSAL foot -Time 16:25 11:09 -Correct Patient Yes Yes -Correct Side, Site, Position Yes Yes -Correct Procedure Yes Yes -Procedure Performed Yes Yes -Type of Procedure Debridement Debridement -Clinical Debridement Subcutaneous Subcutaneous -Tissue Removed Subcutaneous Subcutaneous -Post Debridement (cm) - Length 0.8 1.0 -Post Debridement (cm) - Width 5.2 0.5 -Post Debridement (cm) - Depth 0.5 0.2 -Total Square (Post) (cm) 4.16 0.50 -Area of Debridement (cm) - Length 0.8 1.0 -Area of Debridement (cm) - Width 5.2 0.5 -Total Square (Area) (cm) 4.16 0.50 -Tunneling No No -Undermining/Tunneling No No -Circular Undermining No No -Wound/Ulcer Outcome Not Healed Not Healed -Ulcer Cleansing Rinsed/ Rinsed/ Irrigated with Irrigated with Saline Saline -Foul Odor after Cleansing No No -Bioengineered Tissue No No -Bleeding Controlled with Pressure Pressure -Treatment Response Procedure Procedure Tolerated Well Tolerated Well -Offloading Yes Yes -Type of Offloading Surgical Shoe Surgical Shoe -Debridement - Subq, 1st 20sq cm No No #5 L Med foot -Time 16:26 11:09 -Correct Patient Yes Yes -Correct Side, Site, Position Yes Yes -Correct Procedure Yes Yes -Procedure Performed Yes Yes -Type of Procedure Debridement Debridement -Clinical Debridement Subcutaneous Subcutaneous -Tissue Removed Subcutaneous Subcutaneous -Post Debridement (cm) - Length 1.8 1.2 -Post Debridement (cm) - Width 1.4 1.4 -Post Debridement (cm) - Depth 0.2 0.1 -Total Square (Post) (cm) 2.52 1.68 -Area of Debridement (cm) - Length 1.8 1.2 -Area of Debridement (cm) - Width 1.4 1.4 -Total Square (Area) (cm) 2.52 1.68 -Tunneling No No -Undermining/Tunneling No No -Circular Undermining No No -Wound/Ulcer Outcome Not Healed Not Healed -Ulcer Cleansing Rinsed/ Rinsed/ Irrigated with Irrigated with Saline Saline -Foul Odor after Cleansing No No -Bioengineered Tissue No No -Bleeding Controlled with Pressure Pressure -Treatment Response Procedure Procedure Tolerated Well Tolerated Well -Offloading Yes Yes -Type of Offloading Surgical Shoe Surgical Shoe -Debridement - Subq, 1st 20sq cm No No #3 R Med Foot -Time 16:27 11:10 -Correct Patient Yes Yes -Correct Side, Site, Position Yes Yes -Correct Procedure Yes Yes -Procedure Performed Yes Yes -Type of Procedure Debridement Debridement -Clinical Debridement Subcutaneous Subcutaneous -Tissue Removed Subcutaneous Subcutaneous -Post Debridement (cm) - Length 10.5 10.9 -Post Debridement (cm) - Width 2.4 2.5 -Post Debridement (cm) - Depth 0.2 0.3 -Total Square (Post) (cm) 25.20 27.25 -Area of Debridement (cm) - Length 10.5 10.9 -Area of Debridement (cm) - Width 2.4 2.5 -Total Square (Area) (cm) 25.20 27.25 -Tunneling No No -Undermining/Tunneling No No -Circular Undermining No No -Wound/Ulcer Outcome Not Healed Not Healed -Ulcer Cleansing Rinsed/ Rinsed/ Irrigated with Irrigated with Saline Saline -Foul Odor after Cleansing No No -Bioengineered Tissue No No -Bleeding Controlled with Pressure Pressure -Treatment Response Procedure Procedure Tolerated Well Tolerated Well -Offloading Yes Yes -Type of Offloading Surgical Shoe Surgical Shoe -Debridement - Subq, 1st 20sq cm No No #2 R Lat foot -Time 16:28 11:11 -Correct Patient Yes Yes -Correct Side, Site, Position Yes Yes -Correct Procedure Yes Yes -Procedure Performed Yes Yes -Type of Procedure Debridement Debridement -Clinical Debridement Subcutaneous Subcutaneous -Tissue Removed Subcutaneous Subcutaneous -Post Debridement (cm) - Length 6.5 6.0 -Post Debridement (cm) - Width 1.7 1.7 -Post Debridement (cm) - Depth 0.3 0.2 -Total Square (Post) (cm) 11.05 10.20 -Area of Debridement (cm) - Length 6.5 6.0 -Area of Debridement (cm) - Width 1.7 1.7 -Total Square (Area) (cm) 11.05 10.20 -Tunneling No No -Undermining/Tunneling No No -Circular Undermining No No -Wound/Ulcer Outcome Not Healed Not Healed -Ulcer Cleansing Rinsed/ Rinsed/ Irrigated with Irrigated with Saline Saline -Foul Odor after Cleansing No No -Bioengineered Tissue No No -Bleeding Controlled with Pressure Pressure -Treatment Response Procedure Procedure Tolerated Well Tolerated Well -Offloading Yes Yes -Type of Offloading Surgical Shoe Surgical Shoe -Debridement - Subq, 1st 20sq cm Yes Yes -Debridement, SubQ, ea addt'l 20sq cm 2 2 or part thereof Pain Scale: 0-10 Numeric Is Patient Pain Free? Yes Yes - Nurse 3 - General Ulcer D/C NN Start: 09/01/23 11:26 Freq: Status: Active Protocol: Activity Type Activity Date Activity User E-sign Co-sign Detail Recorded Client Recorded Date Recorded By Document 09/01/23 11:26 KW Desktop 09/01/23 11:27 KW 09/01/23 11:26 Wound Care Center Nurse 3 7-right plantar foot -Primary Dressing Applied Other -Other Dressing BETADINE -Primary Dressing Covered/Secured with Dry Gauze & Roll Gauze, Secured with Tape #6 R DORSAL foot -Primary Dressing Applied Other -Other Dressing BETADINE -Primary Dressing Covered/Secured with Dry Gauze & Roll Gauze, Secured with Tape #5 L Med foot -Primary Dressing Applied Other -Other Dressing BETADAINE -Primary Dressing Covered/Secured with Dry Gauze & Roll Gauze, Secured with Tape #3 R Med Foot -Primary Dressing Covered/Secured with Dry Gauze #2 R Lat foot -Primary Dressing Covered/Secured with Dry Gauze BLE -Compression Wrap Cole Wrap Pain Scale: 0-10 Numeric Is Patient Pain Free? Yes - Visit Discharge Ambulatory Status Wheelchair Transportation ACCORD Medication Reconcilliation completed & No provided to patient/care provider Clinical Summary of Care Provided Yes Assessment/Plan Assessment/Plan (1) Venous insufficiency (chronic) (peripheral): CODE(S): I87.2 - Venous insufficiency (chronic) (peripheral) PLAN: Exam performed Arterial and venous studies reviewed Patient on Coumadin Patient underwent recent venous procedure per Dr. Arvizu. This will likely help with patient's edema and wound healing moving forward. Today bilateral foot and ankle wounds were debrided excisionally down to including level of subcutaneous tissue of all nonviable tissue using 7mm dermal curette. No anesthesia due to neuropathy. Hemostasis with compression. Patient tolerated procedure well. Pre and postdebridement measurements documented nursing notes. radiographs negative for osteomyelitis patient off antibiotics, no residual signs of infection Will plan for daily Betadine wet-to-dry dressing changes with overlying dry sterile dressing and Tubigrip. This to be performed by intermediate. No weightbearing restrictions at current. This may change pending patient's healing status. Due to deformity advanced age, will consider BKA if there is any development of a life or limb threatening infection. At current we will continue with local wound care. 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
[2023-09-15 10:51] VITALS: BP 113/61; PULSE 59; RESP 18; TEMP 36.8
--- NOTE | 2023-09-15 11:41 | PCM.WC.PN ---
History of Present Illness Date of Service: 09/15/23 Chief Complaint: Nonhealing bilateral lower extremity ulcers History of Wound: Mr Wilson is an 82-year-old who was brought in here [facility] his [facility] due to nonhealing bilateral lower extremity ulcers. Has had recurrent ulcerations for over 10 years with most recent episode being more severe late last year. 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 No changes today. Patient denies any fever chills nausea vomiting chest pain calf pain at current. [facility] Patient receives daily Betadine DSD bilaterally. Patient has a minimally ambulatory status due to deformity and weakness. Patient states that he does ambulate assisted by walker within the confines of his room to the bathroom. States he does this on a daily basis. No other complaints. Objective Data Objective Data Vital Signs: Vital Signs Temp Pulse Resp BP O2 Del Method 98.2 F 59 L 18 113/61 Room Air 09/15/23 10:51 09/15/23 10:51 09/15/23 10:51 09/15/23 10:51 09/15/23 10:51 Oxygen Delivery Method Room Air Physical Exam Narrative Vascular: Dorsalis pedis posterior tibial pulses palpable to bilateral lower extremity. Atrophic skin changes such as shiny taut appearance noted with absent digital hair growth. Patient does have +1 pitting edema to bilateral lower extremity with hemosiderin deposits noted. Neurologic: Light touch protective sensation diminished bilateral feet. Dermatologic: Multiple full-thickness wounds to right lower extremity noted to the lateral midfoot dorsal forefoot plantar forefoot medial foot and ankle. Full-thickness wound noted to the left medial ankle. these wounds are large in length and width but are limited in depth to subcutaneous tissue. Wounds demonstrate a mixed fibrogranular base with significant periwound maceration erythema and edema. There is no to be moderate drainage from these wounds. 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 This appears to contribute to wound formation and poor ambulatory status patient. Patient has diffuse muscular weakness 4 out of 5 to bilateral lower extremity compartments. On the left lower extremity patient has an equinus contracture to the hindfoot. Debridement Note Debridement Note Post-Debridement Measurements and Additional Note: Post-Debridement Measurements/Treatment - Nurse 1 - General Ulcer Assessment Start: 09/01/23 11:26 Freq: Status: Active Protocol: SASHA.LOWEXT Activity Type Activity Date Activity User E-sign Co-sign Detail Recorded Client Recorded Date Recorded By Document 09/01/23 12:11 RB [id number] 09/01/23 12:12 RB Document 09/08/23 10:59 RB [id number] 09/08/23 11:04 RB Document 09/15/23 10:51 KW Desktop 09/15/23 11:13 KW 09/01/23 09/08/23 09/15/23 12:11 10:59 10:51 - Today's Visit Information Type of service Follow-up Visit Follow-up Visit Follow-up Visit (Physician/FISHER QUAHOG (Physician/FISHER QUAHOG (Physician/FISHER QUAHOG ) ) ) Arrival Mode Wheelchair Wheelchair Wheelchair Transfer Assistance Manual Manual Transfer Assist (Other) TWO PEOPLE WITH WALKER Patient Identification Verified (Name & Yes Yes Yes ) Patient Requires Transmission-Based No Precautions Vital Signs Temperature (97.8 F-99.1 F) 98.8 F 97.1 F L 98.2 F Temperature Source Temporal Temporal Temporal Pulse Rate (60-100) 75 71 59 L Pulse Location Monitor Monitor Monitor Respiratory Rate (12-18) 18 18 18 Respiratory rate source Observation Observation Observation Oxygen Delivery Method Room Air Blood Pressure (90/60-120/80) 117/56 L 100/61 113/61 Blood Pressure Mean (mm Hg) 76 74 78 Source Monitor Monitor Monitor Position Semi-Fowlers Sitting Semi-Fowlers Blood Pressure Location Left Arm Left Arm Left Arm History Since Last Visit- (Skip if this is Patient's initial visit) Have you changed medications since your No No No last visit? Any new allergies or adverse reactions No No No Had a fall/change in ADL's that may No No No increase risk of falls Signs or symptoms of abuse and/or No No No neglect since last visit Have you been in the hospital since your No No No last visit? Has dressing in place as prescribed Yes Yes Yes Has compression in place as prescribed Yes Yes Yes Has offloadiing in place as prescribed No No Yes Experienced any changes in pain level or No No No management Left Footwear Wedge Shoe Right Footwear Wedge Shoe Pain Scale: 0-10 Numeric Is Patient Pain Free? Yes No Yes bilat lower legs -Description Aching -Intensity 3 -Duration (hours) Chronic -Pain Behavior Withdrawal from Touch -Pain Aggravating Factors Changing Position, Debridement -Alleviating Factors/Interventions Medication -Effectiveness of Alleviating Factor/ Minimally Intervention effective WC - Nurse 1 - General Ulcer Measurement Start: 09/01/23 11:26 Freq: Status: Active Protocol: Activity Type Activity Date Activity User E-sign Co-sign Detail Recorded Client Recorded Date Recorded By Document 09/01/23 12:11 RB [id number] 09/01/23 12:12 RB Document 09/08/23 10:59 RB [id number] 09/08/23 11:04 RB Document 09/15/23 10:51 KW Desktop 09/15/23 11:13 KW 09/01/23 09/08/23 09/15/23 12:11 10:59 10:51 Wound Center Nurse 1 7-right plantar foot -Combined with other wound No -Current Size (cm) - Length 0.1 -Current Size (cm) - Width 0.1 -Current Size (cm) - Depth 0.1 -Total Square Cm 0.01 -Exudate Amt Large -Exudate Type Serosanguineous -Wound Margin Distinct, Outline Attached -Granulation Amt Medium (34-66%) -Granulation Quality [place] -Slough/Fibrin Yes -Necrosis Amt Medium (34-66%) -Necrotic Tissue Type Adherent Slough -Structure Exposed N/A -Texture ([place]ul[place]-wound Skin Appearance) Assessed Assessed -Moisture ([place]ul[place]-wound Skin Appearance) Dry/Scaly Assessed -Color ([place]ul[place]-wound Skin Appearance) Assessed Assessed -Temperature ([place]ul[place]-wound Skin No Abnormality Appearance) (Pt Warm) -Tenderness on Palpation ([place]ul[place]-wound No Skin Appearance) -Ulcer Cleansing Wound Cleanser Soap and Water -Foul Odor after Cleansing No -Anesthetic Used 4% Lidocaine 4% Lidocaine Solution Solution #6 R DORSAL foot -Current Size (cm) - Length 0.1 -Current Size (cm) - Width 0.1 -Current Size (cm) - Depth 0.1 -Total Square Cm 0.01 -Exudate Amt Large -Exudate Type Serosanguineous -Wound Margin Distinct, Outline Attached -Granulation Amt Medium (34-66%) -Granulation Quality [place] -Slough/Fibrin Yes -Necrosis Amt Medium (34-66%) -Necrotic Tissue Type Adherent Slough -Structure Exposed N/A -Texture ([place]ul[place]-wound Skin Appearance) Assessed -Moisture ([place]ul[place]-wound Skin Appearance) Assessed,Dry/ Scaly -Color ([place]ul[place]-wound Skin Appearance) Assessed -Temperature ([place]-wound Skin No Abnormality Appearance) (Pt Warm) -Tenderness on Palpation ([place]ul[place]-wound No Skin Appearance) -Ulcer Cleansing Wound Cleanser Soap and Water -Foul Odor after Cleansing No -Anesthetic Used 4% Lidocaine 4% Lidocaine Solution Solution #5 L Med foot -Current Size (cm) - Length 0.1 -Current Size (cm) - Width 0.1 -Current Size (cm) - Depth 0.1 -Total Square Cm 0.01 -Exudate Amt Large Small -Exudate Type Serosanguineous Serous -Wound Margin Distinct, Distinct, Outline Outline Attached Attached -Granulation Amt Medium (34-66%) Medium (34-66%) -Granulation Quality [place] -Slough/Fibrin Yes -Necrosis Amt Medium (34-66%) Medium (34-66%) -Necrotic Tissue Type Adherent Slough Adherent Slough -Texture (Yuliet-wound Skin Appearance) Assessed Assessed -Moisture ([place]ul[place]-wound Skin Appearance) Assessed Assessed -Color (Yuliet-wound Skin Appearance) Assessed Assessed -Temperature ([place]ul[place]-wound Skin No Abnormality Appearance) (Pt Warm) -Ulcer Cleansing Wound Cleanser Soap and Water -Foul Odor after Cleansing No -Anesthetic Used 4% Lidocaine 4% Lidocaine Solution Solution #3 R Med Foot -Current Size (cm) - Length 0.1 -Current Size (cm) - Width 0.1 -Current Size (cm) - Depth 0.1 -Total Square Cm 0.01 -Exudate Amt Large -Exudate Type Serosanguineous -Wound Margin Distinct, Outline Attached -Granulation Amt Medium (34-66%) Medium (34-66%) -Granulation Quality [place] -Slough/Fibrin Yes -Necrosis Amt Large (67-100%) Medium (34-66%) -Necrotic Tissue Type Adherent Slough Adherent Slough -Structure Exposed N/A -Texture (Yul[place]-wound Skin Appearance) Assessed Assessed -Moisture ([place]ul[place]-wound Skin Appearance) Assessed Assessed -Color ([place]ul[place]-wound Skin Appearance) Assessed Assessed -Temperature ([place]ul[place]-wound Skin No Abnormality No Abnormality Appearance) (Pt Warm) (Pt Warm) -Tenderness on Palpation ([place]uliet-wound No Skin Appearance) -Ulcer Cleansing Wound Cleanser Soap and Water -Foul Odor after Cleansing No No -Anesthetic Used 4% Lidocaine 4% Lidocaine Solution Solution #2 R Lat foot -Current Size (cm) - Length 0.1 -Current Size (cm) - Width 0.1 -Current Size (cm) - Depth 0.1 -Total Square Cm 0.01 -Exudate Amt Large Small -Exudate Type Serosanguineous Serosanguineous -Wound Margin Distinct, Distinct, Outline Outline Attached Attached -Granulation Amt Medium (34-66%) Medium (34-66%) -Granulation Quality [place] Red -Slough/Fibrin Yes -Necrosis Amt Medium (34-66%) Medium (34-66%) -Necrotic Tissue Type Adherent Slough Adherent Slough -Structure Exposed N/A -Texture (Yuliet-wound Skin Appearance) Assessed Assessed -Moisture (Yuliet-wound Skin Appearance) Assessed Assessed -Color ([place]uliet-wound Skin Appearance) Assessed Assessed -Temperature ([place]ul[place]-wound Skin No Abnormality No Abnormality Appearance) (Pt Warm) (Pt Warm) -Tenderness on Palpation (Yuliet-wound No No Skin Appearance) -Ulcer Cleansing Wound Cleanser Soap and Water -Foul Odor after Cleansing No No -Anesthetic Used 4% Lidocaine 4% Lidocaine Solution Solution Lower Limb Edema Present Yes Yes Right Calf (cm) 32 30.2 32.4 Right Ankle (cm) 24 22 23 Left Calf (cm) 32.2 32.2 33.2 Left Ankle (cm) 24 22.5 22.8 WC - Nurse 2 - General Ulcer CM Notes Start: 09/01/23 11:26 Freq: Status: Active Protocol: Activity Type Activity Date Activity User E-sign Co-sign Detail Recorded Client Recorded Date Recorded By Document 09/01/23 16:23 Laptop 09/01/23 16:32 Document 09/08/23 11:04 Laptop 09/08/23 11:13 Document 09/15/23 11:18 Laptop 09/15/23 11:26 09/01/23 09/08/23 09/15/23 16:23 11:04 11:18 Wound Center Nurse 2 7-right plantar foot -Time 16:23 11:08 11:19 -Correct Patient Yes Yes Yes -Correct Side, Site, Position Yes Yes Yes -Correct Procedure Yes Yes Yes -Procedure Performed Yes Yes Yes -Type of Procedure Debridement Debridement Debridement -Clinical Debridement Subcutaneous Subcutaneous Subcutaneous -Tissue Removed Subcutaneous Subcutaneous Subcutaneous -Post Debridement (cm) - Length 2.5 2.5 2.0 -Post Debridement (cm) - Width 1.2 1.0 1.0 -Post Debridement (cm) - Depth 0.5 0.2 0.2 -Total Square (Post) (cm) 3.00 2.50 2.00 -Area of Debridement (cm) - Length 2.5 2.5 2.0 -Area of Debridement (cm) - Width 1.2 1.0 1.0 -Total Square (Area) (cm) 3.00 2.50 2.00 -Tunneling No No No -Undermining/Tunneling No No No -Circular Undermining No No No -Wound/Ulcer Outcome Not Healed Not Healed Not Healed -Ulcer Cleansing Rinsed/ Rinsed/ Rinsed/ Irrigated with Irrigated with Irrigated with Saline Saline Saline -Foul Odor after Cleansing No No No -Bioengineered Tissue No No No -Bleeding Controlled with Pressure Pressure Pressure -Treatment Response Procedure Procedure Procedure Tolerated Well Tolerated Well Tolerated Well -Offloading Yes No Yes -Type of Offloading Surgical Shoe Surgical Shoe -Debridement - Subq, 1st 20sq cm No No No #6 R DORSAL foot -Time 16:25 11:09 11:19 -Correct Patient Yes Yes Yes -Correct Side, Site, Position Yes Yes Yes -Correct Procedure Yes Yes Yes -Procedure Performed Yes Yes Yes -Type of Procedure Debridement Debridement Debridement -Clinical Debridement Subcutaneous Subcutaneous Subcutaneous -Tissue Removed Subcutaneous Subcutaneous Subcutaneous -Post Debridement (cm) - Length 0.8 1.0 5.0 -Post Debridement (cm) - Width 5.2 0.5 0.5 -Post Debridement (cm) - Depth 0.5 0.2 0.2 -Total Square (Post) (cm) 4.16 0.50 2.50 -Area of Debridement (cm) - Length 0.8 1.0 5.0 -Area of Debridement (cm) - Width 5.2 0.5 0.5 -Total Square (Area) (cm) 4.16 0.50 2.50 -Tunneling No No No -Undermining/Tunneling No No No -Circular Undermining No No No -Wound/Ulcer Outcome Not Healed Not Healed Not Healed -Ulcer Cleansing Rinsed/ Rinsed/ Rinsed/ Irrigated with Irrigated with Irrigated with Saline Saline Saline -Foul Odor after Cleansing No No No -Bioengineered Tissue No No No -Bleeding Controlled with Pressure Pressure Pressure -Treatment Response Procedure Procedure Procedure Tolerated Well Tolerated Well Tolerated Well -Offloading Yes Yes Yes -Type of Offloading Surgical Shoe Surgical Shoe Surgical Shoe -Debridement - Subq, 1st 20sq cm No No No #5 L Med foot -Time 16:26 11:09 11:20 -Correct Patient Yes Yes Yes -Correct Side, Site, Position Yes Yes Yes -Correct Procedure Yes Yes Yes -Procedure Performed Yes Yes Yes -Type of Procedure Debridement Debridement Debridement -Clinical Debridement Subcutaneous Subcutaneous Subcutaneous -Tissue Removed Subcutaneous Subcutaneous Subcutaneous -Post Debridement (cm) - Length 1.8 1.2 1.6 -Post Debridement (cm) - Width 1.4 1.4 1.4 -Post Debridement (cm) - Depth 0.2 0.1 0.1 -Total Square (Post) (cm) 2.52 1.68 2.24 -Area of Debridement (cm) - Length 1.8 1.2 1.6 -Area of Debridement (cm) - Width 1.4 1.4 1.4 -Total Square (Area) (cm) 2.52 1.68 2.24 -Tunneling No No No -Undermining/Tunneling No No No -Circular Undermining No No No -Wound/Ulcer Outcome Not Healed Not Healed Not Healed -Ulcer Cleansing Rinsed/ Rinsed/ Rinsed/ Irrigated with Irrigated with Irrigated with Saline Saline Saline -Foul Odor after Cleansing No No No -Bioengineered Tissue No No No -Bleeding Controlled with Pressure Pressure Pressure -Treatment Response Procedure Procedure Procedure Tolerated Well Tolerated Well Tolerated Well -Offloading Yes Yes Yes -Type of Offloading Surgical Shoe Surgical Shoe Surgical Shoe -Debridement - Subq, 1st 20sq cm No No No #3 R Med Foot -Time 16:27 11:10 11:20 -Correct Patient Yes Yes Yes -Correct Side, Site, Position Yes Yes Yes -Correct Procedure Yes Yes Yes -Procedure Performed Yes Yes Yes -Type of Procedure Debridement Debridement Debridement -Clinical Debridement Subcutaneous Subcutaneous Subcutaneous -Tissue Removed Subcutaneous Subcutaneous Subcutaneous -Post Debridement (cm) - Length 10.5 10.9 10 -Post Debridement (cm) - Width 2.4 2.5 2 -Post Debridement (cm) - Depth 0.2 0.3 0.3 -Total Square (Post) (cm) 25.20 27.25 20 -Area of Debridement (cm) - Length 10.5 10.9 10 -Area of Debridement (cm) - Width 2.4 2.5 2 -Total Square (Area) (cm) 25.20 27.25 20 -Tunneling No No No -Undermining/Tunneling No No No -Circular Undermining No No No -Wound/Ulcer Outcome Not Healed Not Healed Not Healed -Ulcer Cleansing Rinsed/ Rinsed/ Rinsed/ Irrigated with Irrigated with Irrigated with Saline Saline Saline -Foul Odor after Cleansing No No No -Bioengineered Tissue No No No -Bleeding Controlled with Pressure Pressure Pressure -Treatment Response Procedure Procedure Procedure Tolerated Well Tolerated Well Tolerated Well -Offloading Yes Yes Yes -Type of Offloading Surgical Shoe Surgical Shoe Surgical Shoe -Debridement - Subq, 1st 20sq cm No No No #2 R Lat foot -Time 16:28 11:11 11:21 -Correct Patient Yes Yes Yes -Correct Side, Site, Position Yes Yes Yes -Correct Procedure Yes Yes Yes -Procedure Performed Yes Yes Yes -Type of Procedure Debridement Debridement Debridement -Clinical Debridement Subcutaneous Subcutaneous Subcutaneous -Tissue Removed Subcutaneous Subcutaneous Subcutaneous -Post Debridement (cm) - Length 6.5 6.0 6.5 -Post Debridement (cm) - Width 1.7 1.7 1.5 -Post Debridement (cm) - Depth 0.3 0.2 0.2 -Total Square (Post) (cm) 11.05 10.20 9.75 -Area of Debridement (cm) - Length 6.5 6.0 6.5 -Area of Debridement (cm) - Width 1.7 1.7 1.5 -Total Square (Area) (cm) 11.05 10.20 9.75 -Tunneling No No No -Undermining/Tunneling No No No -Circular Undermining No No No -Wound/Ulcer Outcome Not Healed Not Healed Not Healed -Ulcer Cleansing Rinsed/ Rinsed/ Rinsed/ Irrigated with Irrigated with Irrigated with Saline Saline Saline -Foul Odor after Cleansing No No No -Bioengineered Tissue No No No -Bleeding Controlled with Pressure Pressure Pressure -Treatment Response Procedure Procedure Procedure Tolerated Well Tolerated Well Tolerated Well -Offloading Yes Yes Yes -Type of Offloading Surgical Shoe Surgical Shoe Surgical Shoe -Debridement - Subq, 1st 20sq cm Yes Yes Yes -Debridement, SubQ, ea addt'l 20sq cm 2 2 1 or part thereof Pain Scale: 0-10 Numeric Is Patient Pain Free? Yes Yes Yes WC - Nurse 3 - General Ulcer D/C NN Start: 09/01/23 11:26 Freq: Status: Active Protocol: Activity Type Activity Date Activity User E-sign Co-sign Detail Recorded Client Recorded Date Recorded By Document 09/01/23 11:26 KW Desktop 09/01/23 11:27 KW Document 09/08/23 15:37 RB Desktop 09/08/23 15:39 RB 09/01/23 09/08/23 11:26 15:37 Wound Care Center Nurse 3 7-right plantar foot -Ulcer Cleansing Rinsed/ Irrigated with Saline -Primary Dressing Applied Other -Other Dressing BETADINE betadine moistened gauze -Primary Dressing Covered/Secured with Dry Gauze & Dry Gauze & Roll Gauze, Roll Gauze, Secured with Secured with Tape Tape #6 R DORSAL foot -Ulcer Cleansing Rinsed/ Irrigated with Saline -Primary Dressing Applied Other -Other Dressing BETADINE betadine moistened gauze -Primary Dressing Covered/Secured with Dry Gauze & Dry Gauze,Dry Roll Gauze, Gauze & Roll Secured with Gauze,Secured Tape with Tape #5 L Med foot -Ulcer Cleansing Rinsed/ Irrigated with Saline -Primary Dressing Applied Other -Other Dressing BETADAINE betadine moistened gauze -Primary Dressing Covered/Secured with Dry Gauze & Dry Gauze,Dry Roll Gauze, Gauze & Roll Secured with Gauze,Secured Tape with Tape -Other Covering abd #3 R Med Foot -Ulcer Cleansing Rinsed/ Irrigated with Saline -Other Dressing betadine moistened gauze -Primary Dressing Covered/Secured with Dry Gauze Dry Gauze,Dry Gauze & Roll Gauze,Secured with Tape -Other Covering abd #2 R Lat foot -Ulcer Cleansing Rinsed/ Irrigated with Saline -Other Dressing betadine moistened gauze -Primary Dressing Covered/Secured with Dry Gauze Dry Gauze,Dry Gauze & Roll Gauze,Secured with Tape BLE -Compression Wrap Cole Wrap -Other cole Treatment Response Procedure Tolerated Well Pain Scale: 0-10 Numeric Is Patient Pain Free? Yes Yes WC - Visit Discharge Discharge Condition Stable Ambulatory Status Wheelchair Wheelchair Transportation [facility] Auto Medication Reconcilliation completed & No No provided to patient/care provider Clinical Summary of Care Provided Yes Yes Assessment/Plan Assessment/Plan (1) Venous insufficiency (chronic) (peripheral): CODE(S): I87.2 - Venous insufficiency (chronic) (peripheral) PLAN: Exam performed Arterial and venous studies reviewed Patient on Coumadin Patient underwent recent venous procedure per Dr. Arvizu. This will likely help with patient's edema and wound healing moving forward. Today bilateral foot and ankle wounds were debrided excisionally down to including level of subcutaneous tissue of all nonviable tissue using 5mm dermal curette. No anesthesia due to neuropathy. Hemostasis with compression. Patient tolerated procedure well. Pre and postdebridement measurements documented nursing notes. radiographs negative for osteomyelitis patient off antibiotics, no residual signs of infection Will plan for daily Betadine wet-to-dry dressing changes with overlying dry sterile dressing and Tubigrip. This to be performed by [facility]pc. No weightbearing restrictions at current. This may change pending patient's healing status. Due to deformity advanced age, will consider BKA if there is any development of a life or limb threatening infection. At current we will continue with local wound care. 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
[2023-09-22 11:04] VITALS: BP 96/52; PULSE 66; RESP 18; TEMP 36.6
--- NOTE | 2023-09-22 11:36 | PCM.WC.PN ---
History of Present Illness Date of Service: 09/22/23 Chief Complaint: Nonhealing bilateral lower extremity ulcers History of Wound: Mr Wilson is an 82-year-old who was brought in here from his half-way due to nonhealing bilateral lower extremity ulcers. Has had recurrent ulcerations for over 10 years with most recent episode being more severe late last year. 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 No changes today. Patient denies any fever chills nausea vomiting chest pain calf pain at current. Patient resides in care home facility. Patient receives daily Betadine DSD bilaterally. Patient has a minimally ambulatory status due to deformity and weakness. Patient states that he does ambulate assisted by walker within the confines of his room to the bathroom. States he does this on a daily basis. No other complaints. Objective Data Objective Data Vital Signs: Vital Signs Temp Pulse Resp BP O2 Del Method 98 F 66 18 96/52 L Room Air 09/22/23 11:04 09/22/23 11:04 09/22/23 11:04 09/22/23 11:04 09/15/23 10:51 Oxygen Delivery Method Room Air Physical Exam Narrative Vascular: Dorsalis pedis posterior tibial pulses palpable to bilateral lower extremity. Atrophic skin changes such as shiny taut appearance noted with absent digital hair growth. Patient does have +1 pitting edema to bilateral lower extremity with hemosiderin deposits noted. Neurologic: Light touch protective sensation diminished bilateral feet. Dermatologic: Multiple full-thickness wounds to right lower extremity noted to the lateral midfoot dorsal forefoot plantar forefoot medial foot and ankle. Full-thickness wound noted to the left medial ankle. these wounds are large in length and width but are limited in depth to subcutaneous tissue. Wounds demonstrate a mixed fibrogranular base with significant periwound maceration erythema and edema. There is no to be moderate drainage from these wounds. 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 This appears to contribute to wound formation and poor ambulatory status patient. Patient has diffuse muscular weakness 4 out of 5 to bilateral lower extremity compartments. On the left lower extremity patient has an equinus contracture to the hindfoot. Debridement Note Debridement Note Post-Debridement Measurements and Additional Note: Post-Debridement Measurements/Treatment WC - Nurse 1 - General Ulcer Assessment Start: 09/01/23 11:26 Freq: Status: Active Protocol: SASHA.LOWEXT Activity Type Activity Date Activity User E-sign Co-sign Detail Recorded Client Recorded Date Recorded By Document 09/01/23 12:11 RB [id number] 09/01/23 12:12 RB Document 09/08/23 10:59 RB [id number] 09/08/23 11:04 RB Document 09/15/23 10:51 KW Desktop 09/15/23 11:13 KW Document 09/22/23 11:04 DL Desktop 09/22/23 11:20 DL 09/01/23 09/08/23 09/15/23 12:11 10:59 10:51 WC - Today's Visit Information Type of service Follow-up Visit Follow-up Visit Follow-up Visit (Physician/BUS AND SYS INTEGRATION SENIOR MANAGER (Physician/BUS AND SYS INTEGRATION SENIOR MANAGER (Physician/BUS AND SYS INTEGRATION SENIOR MANAGER ) ) ) Arrival Mode Wheelchair Wheelchair Wheelchair Transfer Assistance Manual Manual Transfer Assist (Other) TWO PEOPLE WITH WALKER Patient Identification Verified (Name & Yes Yes Yes ) Patient Requires Transmission-Based No Precautions Vital Signs Temperature (97.8 F-99.1 F) 98.8 F 97.1 F L 98.2 F Temperature Source Temporal Temporal Temporal Pulse Rate (60-100) 75 71 59 L Pulse Location Monitor Monitor Monitor Respiratory Rate (12-18) 18 18 18 Respiratory rate source Observation Observation Observation Oxygen Delivery Method Room Air Blood Pressure (90/60-120/80) 117/56 L 100/61 113/61 Blood Pressure Mean (mm Hg) 76 74 78 Source Monitor Monitor Monitor Position Semi-Fowlers Sitting Semi-Fowlers Blood Pressure Location Left Arm Left Arm Left Arm History Since Last Visit- (Skip if this is Patient's initial visit) Have you changed medications since your No No No last visit? Any new allergies or adverse reactions No No No Had a fall/change in ADL's that may No No No increase risk of falls Signs or symptoms of abuse and/or No No No neglect since last visit Have you been in the hospital since your No No No last visit? Has dressing in place as prescribed Yes Yes Yes Has compression in place as prescribed Yes Yes Yes Has offloadiing in place as prescribed No No Yes Experienced any changes in pain level or No No No management Left Footwear Wedge Shoe Right Footwear Wedge Shoe Pain Scale: 0-10 Numeric Is Patient Pain Free? Yes No Yes bilat lower legs -Description Aching -Intensity 3 -Duration (hours) Chronic -Pain Behavior Withdrawal from Touch -Pain Aggravating Factors Changing Position, Debridement -Alleviating Factors/Interventions Medication -Effectiveness of Alleviating Factor/ Minimally Intervention effective 09/22/23 11:04 - Today's Visit Information Type of service Follow-up Visit (Physician/[employer] AND SYS INTEGRATION SENIOR MANAGER ) Arrival Mode Wheelchair Transfer Assistance Manual Transfer Assist (Other) x2 Patient Identification Verified (Name & Yes ) Patient Requires Transmission-Based No Precautions Vital Signs Temperature (97.8 F-99.1 F) 98 F Temperature Source Temporal Pulse Rate (60-100) 66 Pulse Location Monitor Respiratory Rate (12-18) 18 Respiratory rate source Observation Oxygen Delivery Method Blood Pressure (90/60-120/80) 96/52 L Blood Pressure Mean (mm Hg) 66 Source Monitor Position Blood Pressure Location History Since Last Visit- (Skip if this is Patient's initial visit) Have you changed medications since your No last visit? Any new allergies or adverse reactions No Had a fall/change in ADL's that may No increase risk of falls Signs or symptoms of abuse and/or No neglect since last visit Have you been in the hospital since your No last visit? Has dressing in place as prescribed Yes Has compression in place as prescribed Yes Has offloadiing in place as prescribed Yes Experienced any changes in pain level or No management Left Footwear Surgical Shoe with pressure relief insole Right Footwear Surgical Shoe with pressure relief insole Pain Scale: 0-10 Numeric Is Patient Pain Free? Yes bilat lower legs -Description -Intensity -Duration (hours) -Pain Behavior -Pain Aggravating Factors -Alleviating Factors/Interventions -Effectiveness of Alleviating Factor/ Intervention - Nurse 1 - General Ulcer Measurement Start: 09/01/23 11:26 Freq: Status: Active Protocol: Activity Type Activity Date Activity User E-sign Co-sign Detail Recorded Client Recorded Date Recorded By Document 09/01/23 12:11 RB [id number] 09/01/23 12:12 RB Document 09/08/23 10:59 RB [id number] 09/08/23 11:04 RB Document 09/15/23 10:51 KW Desktop 09/15/23 11:13 KW Document 09/22/23 11:04 DL Desktop 09/22/23 11:20 DL 09/01/23 09/08/23 09/15/23 12:11 10:59 10:51 Wound Center Nurse 1 7-right plantar foot -Combined with other wound No -Current Size (cm) - Length 0.1 -Current Size (cm) - Width 0.1 -Current Size (cm) - Depth 0.1 -Total Square Cm 0.01 -Exudate Amt Large -Exudate Type Serosanguineous -Wound Margin Distinct, Outline Attached -Granulation Amt Medium (34-66%) -Granulation Quality [place] -Slough/Fibrin Yes -Necrosis Amt Medium (34-66%) -Necrotic Tissue Type Adherent Slough -Structure Exposed N/A -Texture (Yul[place]-wound Skin Appearance) Assessed Assessed -Moisture (Yuliet-wound Skin Appearance) Dry/Scaly Assessed -Color ([place]ul[place]-wound Skin Appearance) Assessed Assessed -Temperature ([place]ul[place]-wound Skin No Abnormality Appearance) (Pt Warm) -Tenderness on Palpation (Yuliet-wound No Skin Appearance) -Ulcer Cleansing Wound Cleanser Soap and Water -Foul Odor after Cleansing No -Anesthetic Used 4% Lidocaine 4% Lidocaine Solution Solution #6 R DORSAL foot -Current Size (cm) - Length 0.1 -Current Size (cm) - Width 0.1 -Current Size (cm) - Depth 0.1 -Total Square Cm 0.01 -Exudate Amt Large -Exudate Type Serosanguineous -Wound Margin Distinct, Outline Attached -Granulation Amt Medium (34-66%) -Granulation Quality [place] -Slough/Fibrin Yes -Necrosis Amt Medium (34-66%) -Necrotic Tissue Type Adherent Slough -Structure Exposed N/A -Texture ([place]ul[place]-wound Skin Appearance) Assessed -Moisture ([place]ul[place]-wound Skin Appearance) Assessed,Dry/ Scaly -Color ([place]ul[place]-wound Skin Appearance) Assessed -Temperature ([place]ul[place]-wound Skin No Abnormality Appearance) (Pt Warm) -Tenderness on Palpation (Yul[place]-wound No Skin Appearance) -Ulcer Cleansing Wound Cleanser Soap and Water -Foul Odor after Cleansing No -Anesthetic Used 4% Lidocaine 4% Lidocaine Solution Solution #5 L Med foot -Current Size (cm) - Length 0.1 -Current Size (cm) - Width 0.1 -Current Size (cm) - Depth 0.1 -Total Square Cm 0.01 -Exudate Amt Large Small -Exudate Type Serosanguineous Serous -Wound Margin Distinct, Distinct, Outline Outline Attached Attached -Granulation Amt Medium (34-66%) Medium (34-66%) -Granulation Quality [place] -Slough/Fibrin Yes -Necrosis Amt Medium (34-66%) Medium (34-66%) -Necrotic Tissue Type Adherent Slough Adherent Slough -Structure Exposed -Texture ([place]ul[place]-wound Skin Appearance) Assessed Assessed -Moisture ([place]ul[place]-wound Skin Appearance) Assessed Assessed -Color ([place]ul[place]-wound Skin Appearance) Assessed Assessed -Temperature ([place]ul[place]-wound Skin No Abnormality Appearance) (Pt Warm) -Ulcer Cleansing Wound Cleanser Soap and Water -Foul Odor after Cleansing No -Anesthetic Used 4% Lidocaine 4% Lidocaine Solution Solution #3 R Med Foot -Current Size (cm) - Length 0.1 -Current Size (cm) - Width 0.1 -Current Size (cm) - Depth 0.1 -Total Square Cm 0.01 -Exudate Amt Large -Exudate Type Serosanguineous -Wound Margin Distinct, Outline Attached -Granulation Amt Medium (34-66%) Medium (34-66%) -Granulation Quality [place] -Slough/Fibrin Yes -Necrosis Amt Large (67-100%) Medium (34-66%) -Necrotic Tissue Type Adherent Slough Adherent Slough -Structure Exposed N/A -Texture ([place]ul[place]-wound Skin Appearance) Assessed Assessed -Moisture ([place]ul[place]-wound Skin Appearance) Assessed Assessed -Color ([place]-wound Skin Appearance) Assessed Assessed -Temperature ([place]-wound Skin No Abnormality No Abnormality Appearance) (Pt Warm) (Pt Warm) -Tenderness on Palpation ([place]ul[place]-wound No Skin Appearance) -Ulcer Cleansing Wound Cleanser Soap and Water -Foul Odor after Cleansing No No -Anesthetic Used 4% Lidocaine 4% Lidocaine Solution Solution #2 R Lat foot -Current Size (cm) - Length 0.1 -Current Size (cm) - Width 0.1 -Current Size (cm) - Depth 0.1 -Total Square Cm 0.01 -Exudate Amt Large Small -Exudate Type Serosanguineous Serosanguineous -Wound Margin Distinct, Distinct, Outline Outline Attached Attached -Granulation Amt Medium (34-66%) Medium (34-66%) -Granulation Quality [place] Red -Slough/Fibrin Yes -Necrosis Amt Medium (34-66%) Medium (34-66%) -Necrotic Tissue Type Adherent Slough Adherent Slough -Structure Exposed N/A -Texture ([place]ul[place]-wound Skin Appearance) Assessed Assessed -Moisture ([place]ul[place]-wound Skin Appearance) Assessed Assessed -Color ([place]-wound Skin Appearance) Assessed Assessed -Temperature ([place]-wound Skin No Abnormality No Abnormality Appearance) (Pt Warm) (Pt Warm) -Tenderness on Palpation ([place]uliet-wound No No Skin Appearance) -Ulcer Cleansing Wound Cleanser Soap and Water -Foul Odor after Cleansing No No -Anesthetic Used 4% Lidocaine 4% Lidocaine Solution Solution Lower Limb Edema Present Yes Yes Right Calf (cm) 32 30.2 32.4 Right Ankle (cm) 24 22 23 Left Calf (cm) 32.2 32.2 33.2 Left Ankle (cm) 24 22.5 22.8 09/22/23 11:04 Wound Center Nurse 1 7-right plantar foot -Combined with other wound -Current Size (cm) - Length 0.1 -Current Size (cm) - Width 0.1 -Current Size (cm) - Depth 0.1 -Total Square Cm 0.01 -Exudate Amt Medium -Exudate Type Serosanguineous -Wound Margin Distinct, Outline Attached -Granulation Amt Medium (34-66%) -Granulation Quality Red -Slough/Fibrin -Necrosis Amt Medium (34-66%) -Necrotic Tissue Type Adherent Slough -Structure Exposed N/A -Texture (Yuliet-wound Skin Appearance) Scarring -Moisture (Yul[place]-wound Skin Appearance) Dry/Scaly -Color (Yuliet-wound Skin Appearance) Hemosiderin Staining -Temperature ([place]ul[place]-wound Skin No Abnormality Appearance) (Pt Warm) -Tenderness on Palpation (Yuliet-wound Skin Appearance) -Ulcer Cleansing Soap and Water -Foul Odor after Cleansing No -Anesthetic Used 4% Lidocaine Solution #6 R DORSAL foot -Current Size (cm) - Length 0.1 -Current Size (cm) - Width 0.1 -Current Size (cm) - Depth 0.1 -Total Square Cm 0.01 -Exudate Amt Medium -Exudate Type Serosanguineous -Wound Margin Distinct, Outline Attached -Granulation Amt Medium (34-66%) -Granulation Quality Red -Slough/Fibrin -Necrosis Amt Medium (34-66%) -Necrotic Tissue Type Adherent Slough -Structure Exposed N/A -Texture (Yuliet-wound Skin Appearance) Scarring -Moisture (Yuliet-wound Skin Appearance) Dry/Scaly -Color (Yuliet-wound Skin Appearance) Hemosiderin Staining -Temperature (Yuliet-wound Skin No Abnormality Appearance) (Pt Warm) -Tenderness on Palpation (Yuliet-wound Skin Appearance) -Ulcer Cleansing Soap and Water -Foul Odor after Cleansing No -Anesthetic Used 5% Lidocaine Gel #5 L Med foot -Current Size (cm) - Length 0.1 -Current Size (cm) - Width 0 -Current Size (cm) - Depth 0.1 -Total Square Cm 0 -Exudate Amt Medium -Exudate Type Serosanguineous -Wound Margin Distinct, Outline Attached -Granulation Amt Medium (34-66%) -Granulation Quality Red -Slough/Fibrin -Necrosis Amt Medium (34-66%) -Necrotic Tissue Type Adherent Slough -Structure Exposed N/A -Texture (Yul[place]-wound Skin Appearance) Scarring -Moisture (Yuliet-wound Skin Appearance) Dry/Scaly -Color (Yuliet-wound Skin Appearance) Hemosiderin Staining -Temperature ([place]ul[place]-wound Skin No Abnormality Appearance) (Pt Warm) -Ulcer Cleansing Soap and Water -Foul Odor after Cleansing No -Anesthetic Used 4% Lidocaine Solution #3 R Med Foot -Current Size (cm) - Length 0.1 -Current Size (cm) - Width 0.1 -Current Size (cm) - Depth 0.1 -Total Square Cm 0.01 -Exudate Amt Medium -Exudate Type Serosanguineous -Wound Margin Distinct, Outline Attached -Granulation Amt Medium (34-66%) -Granulation Quality Red -Slough/Fibrin -Necrosis Amt Medium (34-66%) -Necrotic Tissue Type Adherent Slough -Structure Exposed N/A -Texture ([place]ul[place]-wound Skin Appearance) Scarring -Moisture ([place]ul[place]-wound Skin Appearance) Dry/Scaly -Color (Yuliet-wound Skin Appearance) Hemosiderin Staining -Temperature (Yul[place]-wound Skin Appearance) -Tenderness on Palpation (Yuliet-wound No Skin Appearance) -Ulcer Cleansing Soap and Water -Foul Odor after Cleansing No -Anesthetic Used 4% Lidocaine Solution #2 R Lat foot -Current Size (cm) - Length 0.1 -Current Size (cm) - Width 0.1 -Current Size (cm) - Depth 0.1 -Total Square Cm 0.01 -Exudate Amt Medium -Exudate Type Serosanguineous -Wound Margin Distinct, Outline Attached -Granulation Amt Medium (34-66%) -Granulation Quality Red -Slough/Fibrin -Necrosis Amt Medium (34-66%) -Necrotic Tissue Type Adherent Slough -Structure Exposed N/A -Texture ([place]ul[place]-wound Skin Appearance) Scarring -Moisture ([place]ul[place]-wound Skin Appearance) Dry/Scaly -Color (Yuliet-wound Skin Appearance) Hemosiderin Staining -Temperature ([place]ul[place]-wound Skin No Abnormality Appearance) (Pt Warm) -Tenderness on Palpation (Yuliet-wound No Skin Appearance) -Ulcer Cleansing Soap and Water -Foul Odor after Cleansing No -Anesthetic Used 4% Lidocaine Solution Lower Limb Edema Present Right Calf (cm) Right Ankle (cm) Left Calf (cm) Left Ankle (cm) WC - Nurse 2 - General Ulcer CM Notes Start: 09/01/23 11:26 Freq: Status: Active Protocol: Activity Type Activity Date Activity User E-sign Co-sign Detail Recorded Client Recorded Date Recorded By Document 09/01/23 16:23 [employer] Laptop 09/01/23 16:32 Document 09/08/23 11:04 Laptop 09/08/23 11:13 Document 09/15/23 11:18 Laptop 09/15/23 11:26 09/01/23 09/08/23 09/15/23 16:23 11:04 11:18 Wound Center Nurse 2 7-right plantar foot -Time 16:23 11:08 11:19 -Correct Patient Yes Yes Yes -Correct Side, Site, Position Yes Yes Yes -Correct Procedure Yes Yes Yes -Procedure Performed Yes Yes Yes -Type of Procedure Debridement Debridement Debridement -Clinical Debridement Subcutaneous Subcutaneous Subcutaneous -Tissue Removed Subcutaneous Subcutaneous Subcutaneous -Post Debridement (cm) - Length 2.5 2.5 2.0 -Post Debridement (cm) - Width 1.2 1.0 1.0 -Post Debridement (cm) - Depth 0.5 0.2 0.2 -Total Square (Post) (cm) 3.00 2.50 2.00 -Area of Debridement (cm) - Length 2.5 2.5 2.0 -Area of Debridement (cm) - Width 1.2 1.0 1.0 -Total Square (Area) (cm) 3.00 2.50 2.00 -Tunneling No No No -Undermining/Tunneling No No No -Circular Undermining No No No -Wound/Ulcer Outcome Not Healed Not Healed Not Healed -Ulcer Cleansing Rinsed/ Rinsed/ Rinsed/ Irrigated with Irrigated with Irrigated with Saline Saline Saline -Foul Odor after Cleansing No No No -Bioengineered Tissue No No No -Bleeding Controlled with Pressure Pressure Pressure -Treatment Response Procedure Procedure Procedure Tolerated Well Tolerated Well Tolerated Well -Offloading Yes No Yes -Type of Offloading Surgical Shoe Surgical Shoe -Debridement - Subq, 1st 20sq cm No No No #6 R DORSAL foot -Time 16:25 11:09 11:19 -Correct Patient Yes Yes Yes -Correct Side, Site, Position Yes Yes Yes -Correct Procedure Yes Yes Yes -Procedure Performed Yes Yes Yes -Type of Procedure Debridement Debridement Debridement -Clinical Debridement Subcutaneous Subcutaneous Subcutaneous -Tissue Removed Subcutaneous Subcutaneous Subcutaneous -Post Debridement (cm) - Length 0.8 1.0 5.0 -Post Debridement (cm) - Width 5.2 0.5 0.5 -Post Debridement (cm) - Depth 0.5 0.2 0.2 -Total Square (Post) (cm) 4.16 0.50 2.50 -Area of Debridement (cm) - Length 0.8 1.0 5.0 -Area of Debridement (cm) - Width 5.2 0.5 0.5 -Total Square (Area) (cm) 4.16 0.50 2.50 -Tunneling No No No -Undermining/Tunneling No No No -Circular Undermining No No No -Wound/Ulcer Outcome Not Healed Not Healed Not Healed -Ulcer Cleansing Rinsed/ Rinsed/ Rinsed/ Irrigated with Irrigated with Irrigated with Saline Saline Saline -Foul Odor after Cleansing No No No -Bioengineered Tissue No No No -Bleeding Controlled with Pressure Pressure Pressure -Treatment Response Procedure Procedure Procedure Tolerated Well Tolerated Well Tolerated Well -Offloading Yes Yes Yes -Type of Offloading Surgical Shoe Surgical Shoe Surgical Shoe -Debridement - Subq, 20sq cm No No No #5 L Med foot -Time 16:26 11:09 11:20 -Correct Patient Yes Yes Yes -Correct Side, Site, Position Yes Yes Yes -Correct Procedure Yes Yes Yes -Procedure Performed Yes Yes Yes -Type of Procedure Debridement Debridement Debridement -Clinical Debridement Subcutaneous Subcutaneous Subcutaneous -Tissue Removed Subcutaneous Subcutaneous Subcutaneous -Post Debridement (cm) - Length 1.8 1.2 1.6 -Post Debridement (cm) - Width 1.4 1.4 1.4 -Post Debridement (cm) - Depth 0.2 0.1 0.1 -Total Square (Post) (cm) 2.52 1.68 2.24 -Area of Debridement (cm) - Length 1.8 1.2 1.6 -Area of Debridement (cm) - Width 1.4 1.4 1.4 -Total Square (Area) (cm) 2.52 1.68 2.24 -Tunneling No No No -Undermining/Tunneling No No No -Circular Undermining No No No -Wound/Ulcer Outcome Not Healed Not Healed Not Healed -Ulcer Cleansing Rinsed/ Rinsed/ Rinsed/ Irrigated with Irrigated with Irrigated with Saline Saline Saline -Foul Odor after Cleansing No No No -Bioengineered Tissue No No No -Bleeding Controlled with Pressure Pressure Pressure -Treatment Response Procedure Procedure Procedure Tolerated Well Tolerated Well Tolerated Well -Offloading Yes Yes Yes -Type of Offloading Surgical Shoe Surgical Shoe Surgical Shoe -Debridement - Subq, 20sq cm No No No #3 R Med Foot -Time 16:27 11:10 11:20 -Correct Patient Yes Yes Yes -Correct Side, Site, Position Yes Yes Yes -Correct Procedure Yes Yes Yes -Procedure Performed Yes Yes Yes -Type of Procedure Debridement Debridement Debridement -Clinical Debridement Subcutaneous Subcutaneous Subcutaneous -Tissue Removed Subcutaneous Subcutaneous Subcutaneous -Post Debridement (cm) - Length 10.5 10.9 10 -Post Debridement (cm) - Width 2.4 2.5 2 -Post Debridement (cm) - Depth 0.2 0.3 0.3 -Total Square (Post) (cm) 25.20 27.25 20 -Area of Debridement (cm) - Length 10.5 10.9 10 -Area of Debridement (cm) - Width 2.4 2.5 2 -Total Square (Area) (cm) 25.20 27.25 20 -Tunneling No No No -Undermining/Tunneling No No No -Circular Undermining No No No -Wound/Ulcer Outcome Not Healed Not Healed Not Healed -Ulcer Cleansing Rinsed/ Rinsed/ Rinsed/ Irrigated with Irrigated with Irrigated with Saline Saline Saline -Foul Odor after Cleansing No No No -Bioengineered Tissue No No No -Bleeding Controlled with Pressure Pressure Pressure -Treatment Response Procedure Procedure Procedure Tolerated Well Tolerated Well Tolerated Well -Offloading Yes Yes Yes -Type of Offloading Surgical Shoe Surgical Shoe Surgical Shoe -Debridement - Subq, 1st 20sq cm No No No #2 R Lat foot -Time 16:28 11:11 11:21 -Correct Patient Yes Yes Yes -Correct Side, Site, Position Yes Yes Yes -Correct Procedure Yes Yes Yes -Procedure Performed Yes Yes Yes -Type of Procedure Debridement Debridement Debridement -Clinical Debridement Subcutaneous Subcutaneous Subcutaneous -Tissue Removed Subcutaneous Subcutaneous Subcutaneous -Post Debridement (cm) - Length 6.5 6.0 6.5 -Post Debridement (cm) - Width 1.7 1.7 1.5 -Post Debridement (cm) - Depth 0.3 0.2 0.2 -Total Square (Post) (cm) 11.05 10.20 9.75 -Area of Debridement (cm) - Length 6.5 6.0 6.5 -Area of Debridement (cm) - Width 1.7 1.7 1.5 -Total Square (Area) (cm) 11.05 10.20 9.75 -Tunneling No No No -Undermining/Tunneling No No No -Circular Undermining No No No -Wound/Ulcer Outcome Not Healed Not Healed Not Healed -Ulcer Cleansing Rinsed/ Rinsed/ Rinsed/ Irrigated with Irrigated with Irrigated with Saline Saline Saline -Foul Odor after Cleansing No No No -Bioengineered Tissue No No No -Bleeding Controlled with Pressure Pressure Pressure -Treatment Response Procedure Procedure Procedure Tolerated Well Tolerated Well Tolerated Well -Offloading Yes Yes Yes -Type of Offloading Surgical Shoe Surgical Shoe Surgical Shoe -Debridement - Subq, 1st 20sq cm Yes Yes Yes -Debridement, SubQ, ea addt'l 20sq cm 2 2 1 or part thereof Pain Scale: 0-10 Numeric Is Patient Pain Free? Yes Yes Yes - Nurse 3 - General Ulcer D/C NN Start: 09/01/23 11:26 Freq: Status: Active Protocol: Activity Type Activity Date Activity User E-sign Co-sign Detail Recorded Client Recorded Date Recorded By Document 09/01/23 11:26 KW Desktop 09/01/23 11:27 KW Document 09/08/23 15:37 RB Desktop 09/08/23 15:39 RB Document 09/15/23 11:58 RB Desktop 09/15/23 12:01 RB 09/01/23 09/08/23 09/15/23 11:26 15:37 11:58 Wound Care Center Nurse 3 7-right plantar foot -Ulcer Cleansing Rinsed/ Rinsed/ Irrigated with Irrigated with Saline Saline -Primary Dressing Applied Other -Other Dressing BETADINE betadine betadine gauze moistened gauze -Primary Dressing Covered/Secured with Dry Gauze & Dry Gauze & Dry Gauze & Roll Gauze, Roll Gauze, Roll Gauze, Secured with Secured with Secured with Tape Tape Tape -Other Covering abd #6 R DORSAL foot -Ulcer Cleansing Rinsed/ Wound Cleanser Irrigated with Saline -Primary Dressing Applied Other -Other Dressing BETADINE betadine betadine gauze moistened gauze abd kerlix -Primary Dressing Covered/Secured with Dry Gauze & Dry Gauze,Dry Roll Gauze, Gauze & Roll Secured with Gauze,Secured Tape with Tape #5 L Med foot -Ulcer Cleansing Rinsed/ Rinsed/ Irrigated with Irrigated with Saline Saline -Primary Dressing Applied Other -Other Dressing BETADAINE betadine betadine gauze/ moistened gauze abd/kerlix /cole -Primary Dressing Covered/Secured with Dry Gauze & Dry Gauze,Dry Roll Gauze, Gauze & Roll Secured with Gauze,Secured Tape with Tape -Other Covering abd #3 R Med Foot -Ulcer Cleansing Rinsed/ Rinsed/ Irrigated with Irrigated with Saline Saline -Other Dressing betadine betadine gauze/ moistened gauze abd kerlix/cole -Primary Dressing Covered/Secured with Dry Gauze Dry Gauze,Dry Gauze & Roll Gauze,Secured with Tape -Other Covering abd #2 R Lat foot -Ulcer Cleansing Rinsed/ Rinsed/ Irrigated with Irrigated with Saline Saline -Other Dressing betadine betadine gauze/ moistened gauze abd/ kerlix/ cole -Primary Dressing Covered/Secured with Dry Gauze Dry Gauze,Dry Gauze & Roll Gauze,Secured with Tape BLE -Compression Wrap Cole Wrap -Other cole cole Treatment Response Procedure Procedure Tolerated Well Tolerated Well Pain Scale: 0-10 Numeric Is Patient Pain Free? Yes Yes Yes WC - Visit Discharge Discharge Condition Stable Stable Ambulatory Status Wheelchair Wheelchair Wheelchair Transportation [facility] Auto Medication Reconcilliation completed & No No No provided to patient/care provider Clinical Summary of Care Provided Yes Yes Yes Assessment/Plan Assessment/Plan (1) Venous insufficiency (chronic) (peripheral): CODE(S): I87.2 - Venous insufficiency (chronic) (peripheral) PLAN: Exam performed Arterial and venous studies reviewed Patient on Coumadin Patient underwent recent venous procedure per Dr. Arvizu. This will likely help with patient's edema and wound healing moving forward. Today bilateral foot and ankle wounds were debrided excisionally down to including level of subcutaneous tissue of all nonviable tissue using 5mm dermal curette. No anesthesia due to neuropathy. Hemostasis with compression. Patient tolerated procedure well. Pre and postdebridement measurements documented nursing notes. radiographs negative for osteomyelitis patient off antibiotics, no residual signs of infection Will plan for daily Betadine wet-to-dry dressing changes with overlying dry sterile dressing and Tubigrip. This to be performed by half-way. No weightbearing restrictions at current. This may change pending patient's healing status. Due to deformity advanced age, will consider BKA if there is any development of a life or limb threatening infection. At current we will continue with local wound care. 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
== END 2023-09-27 23:59 | disposition home or self-care (01) ==
LOC: WC 10:30
PROVIDERS: PCP Family Medicine; Referring Provider Family Medicine; Visit Provider Podiatrist
DX: I87.2 Venous insufficiency (chronic) (peripheral) (principal); L97.512 Non-pressure 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 foot with fat layer exposed; L97.522 Non-pressure chronic ulcer of other part of left foot with fat layer exposed; Q66.11 Congenital talipes calcaneovarus, right foot; M24.561 Contracture, right knee; G62.9 Polyneuropathy, unspecified; I73.89 Other specified peripheral vascular diseases; L03.115 Cellulitis of right lower limb
CPT/HCPCS: 11042; 11045

== ENCOUNTER 2023-10-20 10:30 | Outpatient (RCR) | payer MEDICARE, BC, SELFPAY ==
[2023-09-28 00:43] VITALS: BP 96/52; PULSE 66; RESP 18; TEMP 36.6
[2023-09-29 10:37] VITALS: BP 109/65; PULSE 73; RESP 16; TEMP 36.8
--- NOTE | 2023-09-29 11:44 | PCM.WC.PN ---
History of Present Illness Date of Service: 09/29/23 Chief Complaint: Nonhealing bilateral lower extremity ulcers History of Wound: Mr Wilson is an 82-year-old who [facility] to nonhealing bilateral lower extremity ulcers. Has had recurrent ulcerations for over 10 years with most recent episode being more severe late last year. 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 No changes today. Patient denies any fever chills nausea vomiting chest pain calf pain at current. [facility] Patient receives daily Betadine DSD bilaterally. Patient has a minimally ambulatory status due to deformity and weakness. Patient states that he does ambulate assisted by walker within the confines of his room to the bathroom. States he does this on a daily basis. No other complaints. Objective Data Objective Data Vital Signs: Vital Signs Temp Pulse Resp BP 98.3 F 73 16 109/65 09/29/23 10:37 09/29/23 10:37 09/29/23 10:37 09/29/23 10:37 Physical Exam Narrative Vascular: Dorsalis pedis posterior tibial pulses palpable to bilateral lower extremity. Atrophic skin changes such as shiny taut appearance noted with absent digital hair growth. Patient does have +1 pitting edema to bilateral lower extremity with hemosiderin deposits noted. Neurologic: Light touch protective sensation diminished bilateral feet. Dermatologic: Multiple full-thickness wounds to right lower extremity noted to the lateral midfoot dorsal forefoot plantar forefoot medial foot and ankle. Full-thickness wound noted to the left medial ankle. these wounds are large in length and width but are limited in depth to subcutaneous tissue. Wounds demonstrate a mixed fibrogranular base with significant periwound maceration erythema and edema. There is no to be moderate drainage from these wounds. 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 This appears to contribute to wound formation and poor ambulatory status patient. Patient has diffuse muscular weakness 4 out of 5 to bilateral lower extremity compartments. On the left lower extremity patient has an equinus contracture to the hindfoot. 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 ) Arrival Mode Wheelchair Transfer Assistance Manual Transfer Assist (Other) 1 Patient Identification Verified (Name & Yes ) Patient Requires Transmission-Based No Precautions Safety Precautions Fall Prevention Vital Signs Temperature (97.8 F-99.1 F) 98.3 F Temperature Source Temporal Pulse Rate (60-100) 73 Pulse Location Monitor Respiratory Rate (12-18) 16 Respiratory rate source Observation Blood Pressure (90/60-120/80) 109/65 Blood Pressure Mean (mm Hg) 79 Source Monitor Position Sitting Blood Pressure Location Left Forearm History Since Last Visit- (Skip if this is Patient's initial visit) Have you changed medications since your No last visit? Any new allergies or adverse reactions No Had a fall/change in ADL's that may No increase risk of falls Signs or symptoms of abuse and/or No neglect since last visit Have you been in the hospital since your No last visit? Has dressing in place as prescribed Yes Has compression in place as prescribed Yes Has offloadiing in place as prescribed Yes Left Footwear Surgical Shoe with pressure relief insole Right Footwear Surgical Shoe with pressure relief insole Pain Scale: 0-10 Numeric Is Patient Pain Free? Yes - Nurse 1 - General Ulcer Measurement Start: 09/29/23 10:36 Freq: Status: Active Protocol: Activity Type Activity Date Activity User E-sign Co-sign Detail Recorded Client Recorded Date Recorded By Document 09/29/23 10:37 KW [employer] 09/29/23 10:54 KW 09/29/23 10:37 Wound Center Nurse 1 #6 R DORSAL foot -Current Size (cm) - Length 0.1 -Current Size (cm) - Width 0.1 -Current Size (cm) - Depth 0.1 -Total Square Cm 0.01 -Exudate Amt Medium -Exudate Type Serosanguineous -Wound Margin Distinct, Outline Attached -Granulation Amt Large (67-100%) -Granulation Quality Red -Necrosis Amt Small (1-33%) -Necrotic Tissue Type Adherent Slough -Texture (Yuliet-wound Skin Appearance) Assessed,Callus -Moisture (Yuliet-wound Skin Appearance) Assessed -Color (Yuliet-wound Skin Appearance) Assessed -Temperature (Yuliet-wound Skin No Abnormality Appearance) (Pt Warm) -Ulcer Cleansing Soap and Water -Anesthetic Used 4% Lidocaine Solution 7-right plantar foot -Current Size (cm) - Length 0.1 -Current Size (cm) - Width 0.1 -Current Size (cm) - Depth 0.1 -Total Square Cm 0.01 -Granulation Amt Large (67-100%) -Granulation Quality Red -Necrosis Amt Small (1-33%) -Necrotic Tissue Type Adherent Slough -Texture (Yuliet-wound Skin Appearance) Assessed -Moisture (Yuliet-wound Skin Appearance) Assessed, Maceration -Color (Yuliet-wound Skin Appearance) Assessed -Temperature (Yuliet-wound Skin No Abnormality Appearance) (Pt Warm) -Ulcer Cleansing Soap and Water -Anesthetic Used 4% Lidocaine Solution #3 R Med Foot -Current Size (cm) - Length 0.1 -Current Size (cm) - Width 0.1 -Current Size (cm) - Depth 0.1 -Total Square Cm 0.01 -Exudate Amt Medium -Exudate Type Serosanguineous -Wound Margin Distinct, Outline Attached -Granulation Amt Large (67-100%) -Granulation Quality Red -Necrosis Amt Small (1-33%) -Necrotic Tissue Type Adherent Slough -Texture (Yuliet-wound Skin Appearance) Callus -Moisture (Yuliet-wound Skin Appearance) Assessed -Color (Yuliet-wound Skin Appearance) Assessed -Temperature (Yuliet-wound Skin No Abnormality Appearance) (Pt Warm) -Ulcer Cleansing Soap and Water -Anesthetic Used 4% Lidocaine Solution #2 R Lat foot -Current Size (cm) - Length 0.1 -Current Size (cm) - Width 0.1 -Current Size (cm) - Depth 0.1 -Total Square Cm 0.01 -Granulation Amt Large (67-100%) -Granulation Quality Red -Necrosis Amt Small (1-33%) -Necrotic Tissue Type Adherent Slough -Texture (Yuliet-wound Skin Appearance) Assessed -Moisture (Yuliet-wound Skin Appearance) Assessed -Color (Yuliet-wound Skin Appearance) Assessed -Temperature (Yuliet-wound Skin No Abnormality Appearance) (Pt Warm) -Ulcer Cleansing Soap and Water -Anesthetic Used 4% Lidocaine Solution WC - Nurse 2 - General Ulcer CM Notes Start: 09/29/23 10:36 Freq: Status: Active Protocol: Activity Type Activity Date Activity User E-sign Co-sign Detail Recorded Client Recorded Date Recorded By Document 09/29/23 11:36 Laptop 09/29/23 11:42 09/29/23 11:36 Wound Center Nurse 2 #6 R DORSAL foot -Correct Patient No -Correct Side, Site, Position No -Correct Procedure No -Procedure Performed No -Post Debridement (cm) - Length 0 -Post Debridement (cm) - Width 0 -Post Debridement (cm) - Depth 0 -Total Square (Post) (cm) 0 -Area of Debridement (cm) - Length 0 -Area of Debridement (cm) - Width 0 -Total Square (Area) (cm) 0 -Wound/Ulcer Outcome Healed- Epithelialized 7-right plantar foot -Time 11:38 -Correct Patient Yes -Correct Side, Site, Position Yes -Correct Procedure Yes -Procedure Performed Yes -Type of Procedure Debridement -Clinical Debridement Subcutaneous -Tissue Removed Subcutaneous -Post Debridement (cm) - Length 2.5 -Post Debridement (cm) - Width 1.0 -Post Debridement (cm) - Depth 0.1 -Total Square (Post) (cm) 2.50 -Area of Debridement (cm) - Length 2.5 -Area of Debridement (cm) - Width 1.0 -Total Square (Area) (cm) 2.50 -Tunneling No -Undermining/Tunneling No -Circular Undermining No -Wound/Ulcer Outcome Not Healed -Ulcer Cleansing Rinsed/ Irrigated with Saline -Foul Odor after Cleansing No -Bioengineered Tissue No -Bleeding Controlled with Pressure -Treatment Response Procedure Tolerated Well -Offloading Yes -Type of Offloading Surgical Shoe -Assistive Device(s) Wheelchair -Debridement - Subq, 1st 20sq cm No #5 L Med foot -Time 11:40 -Correct Patient Yes -Correct Side, Site, Position Yes -Correct Procedure Yes -Procedure Performed Yes -Type of Procedure Debridement -Clinical Debridement Subcutaneous -Tissue Removed Subcutaneous -Post Debridement (cm) - Length 1.5 -Post Debridement (cm) - Width 1.4 -Post Debridement (cm) - Depth 0.1 -Total Square (Post) (cm) 2.10 -Area of Debridement (cm) - Length 1.5 -Area of Debridement (cm) - Width 1.4 -Total Square (Area) (cm) 2.10 -Tunneling No -Undermining/Tunneling No -Circular Undermining No -Wound/Ulcer Outcome Not Healed -Ulcer Cleansing Rinsed/ Irrigated with Saline -Foul Odor after Cleansing No -Bioengineered Tissue No -Bleeding Controlled with Pressure -Treatment Response Procedure Tolerated Well -Offloading No -Debridement - Subq, 1st 20sq cm No #3 R Med Foot -Time 11:40 -Correct Patient Yes -Correct Side, Site, Position Yes -Correct Procedure Yes -Procedure Performed Yes -Type of Procedure Debridement -Clinical Debridement Subcutaneous -Tissue Removed Subcutaneous -Post Debridement (cm) - Length 9.0 -Post Debridement (cm) - Width 1.5 -Post Debridement (cm) - Depth 0.1 -Total Square (Post) (cm) 13.50 -Area of Debridement (cm) - Length 9.0 -Area of Debridement (cm) - Width 1.5 -Total Square (Area) (cm) 13.50 -Tunneling No -Undermining/Tunneling No -Circular Undermining No -Wound/Ulcer Outcome Not Healed -Ulcer Cleansing Rinsed/ Irrigated with Saline -Foul Odor after Cleansing No -Bioengineered Tissue No -Bleeding Controlled with Pressure -Treatment Response Procedure Tolerated Well -Offloading No -Debridement - Subq, 1st 20sq cm No #2 R Lat foot -Time 11:41 -Correct Patient Yes -Correct Side, Site, Position Yes -Correct Procedure Yes -Procedure Performed Yes -Type of Procedure Debridement -Clinical Debridement Subcutaneous -Tissue Removed Subcutaneous -Post Debridement (cm) - Length 5.5 -Post Debridement (cm) - Width 1.0 -Post Debridement (cm) - Depth 0.2 -Total Square (Post) (cm) 5.50 -Area of Debridement (cm) - Length 5.5 -Area of Debridement (cm) - Width 1.0 -Total Square (Area) (cm) 5.50 -Tunneling No -Undermining/Tunneling No -Circular Undermining No -Wound/Ulcer Outcome Not Healed -Ulcer Cleansing Rinsed/ Irrigated with Saline -Foul Odor after Cleansing No -Bioengineered Tissue No -Bleeding Controlled with Pressure -Treatment Response Procedure Tolerated Well -Offloading Yes -Type of Offloading Surgical Shoe -Assistive Device(s) Wheelchair -Debridement - Subq, 1st 20sq cm Yes -Debridement, SubQ, ea addt'l 20sq cm 1 or part thereof Pain Scale: 0-10 Numeric Is Patient Pain Free? Yes Assessment/Plan Assessment/Plan (1) Venous insufficiency (chronic) (peripheral): CODE(S): I87.2 - Venous insufficiency (chronic) (peripheral) PLAN: Exam performed Arterial and venous studies reviewed Patient on Coumadin Patient underwent recent venous procedure per Dr. Arvizu. This will likely help with patient's edema and wound healing moving forward. Today bilateral foot and ankle wounds were debrided excisionally down to including level of subcutaneous tissue of all nonviable tissue using 5mm dermal curette. No anesthesia due to neuropathy. Hemostasis with compression. Patient tolerated procedure well. Pre and postdebridement measurements documented nursing notes. radiographs negative for osteomyelitis patient off antibiotics, no residual signs of infection Will plan for daily Betadine wet-to-dry dressing changes with overlying dry sterile dressing and Tubigrip. [facility] No weightbearing restrictions at current. This may change pending patient's healing status. Due to deformity advanced age, will consider BKA if there is any development of a life or limb threatening infection. At current we will continue with local wound care. 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
[2023-10-06 10:52] VITALS: RESP 20; TEMP 36.7
--- NOTE | 2023-10-06 11:44 | PCM.WC.PN ---
History of Present Illness Date of Service: 10/06/23 Chief Complaint: Nonhealing bilateral lower extremity ulcers History of Wound: Mr Wilson is an 82-year-old who was brought in here from his snf due to nonhealing bilateral lower extremity ulcers. Has had recurrent ulcerations for over 10 years with most recent episode being more severe late last year. 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 No changes today. Patient denies any fever chills nausea vomiting chest pain calf pain at current. Patient resides in residential facility. Patient receives daily Betadine DSD bilaterally. Patient has a minimally ambulatory status due to deformity and weakness. Patient states that he does ambulate assisted by walker within the confines of his room to the bathroom. States he does this on a daily basis. No other complaints. Objective Data Objective Data Vital Signs: Vital Signs Temp Pulse Resp BP 98.1 F 73 20 H 109/65 10/06/23 10:52 09/29/23 10:37 10/06/23 10:52 09/29/23 10:37 Physical Exam Narrative Vascular: Dorsalis pedis posterior tibial pulses palpable to bilateral lower extremity. Atrophic skin changes such as shiny taut appearance noted with absent digital hair growth. Patient does have +1 pitting edema to bilateral lower extremity with hemosiderin deposits noted. Neurologic: Light touch protective sensation diminished bilateral feet. Dermatologic: Multiple full-thickness wounds to right lower extremity noted to the lateral midfoot dorsal forefoot plantar forefoot medial foot and ankle. Full-thickness wound noted to the left medial ankle. these wounds are large in length and width but are limited in depth to subcutaneous tissue. Wounds demonstrate a mixed fibrogranular base with significant periwound maceration erythema and edema. There is no to be moderate drainage from these wounds. 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 This appears to contribute to wound formation and poor ambulatory status patient. Patient has diffuse muscular weakness 4 out of 5 to bilateral lower extremity compartments. On the left lower extremity patient has an equinus contracture to the hindfoot. Debridement Note Debridement Note Post-Debridement Measurements and Additional Note: Post-Debridement Measurements/Treatment WC - Nurse 1 - General Ulcer Assessment Start: 09/29/23 10:36 Freq: Status: Active Protocol: MARTA Activity Type Activity Date Activity User E-sign Co-sign Detail Recorded Client Recorded Date Recorded By Document 09/29/23 10:37 KW Desktop 09/29/23 10:54 KW Document 10/06/23 10:52 DL Desktop 10/06/23 11:15 DL 09/29/23 10/06/23 10:37 10:52 WC - Today's Visit Information Type of service Follow-up Visit Follow-up Visit (Physician/NIPPLE MAKER (Physician/NIPPLE MAKER ) ) Arrival Mode Wheelchair Wheelchair Transfer Assistance Manual Manual Transfer Assist (Other) 1 x2 Patient Identification Verified (Name & Yes Yes ) Patient Requires Transmission-Based No No Precautions Safety Precautions Fall Prevention Vital Signs Temperature (97.8 F-99.1 F) 98.3 F 98.1 F Temperature Source Temporal Temporal Pulse Rate (60-100) 73 Pulse Location Monitor Respiratory Rate (12-18) 16 20 H Respiratory rate source Observation Observation Blood Pressure (90/60-120/80) 109/65 Blood Pressure Mean (mm Hg) 79 Source Monitor Position Sitting Blood Pressure Location Left Forearm History Since Last Visit- (Skip if this is Patient's initial visit) Have you changed medications since your No No last visit? Any new allergies or adverse reactions No No Had a fall/change in ADL's that may No No increase risk of falls Signs or symptoms of abuse and/or No No neglect since last visit Have you been in the hospital since your No No last visit? Has dressing in place as prescribed Yes Yes Has compression in place as prescribed Yes Yes Has offloadiing in place as prescribed Yes Yes Experienced any changes in pain level or No management Left Footwear Surgical Shoe Removable Cast with pressure Walker/Walking relief insole Boot Right Footwear Surgical Shoe Surgical Shoe with pressure with pressure relief insole relief insole Pain Scale: 0-10 Numeric Is Patient Pain Free? Yes Yes SASHA - Nurse 1 - General Ulcer Measurement Start: 09/29/23 10:36 Freq: Status: Active Protocol: Activity Type Activity Date Activity User E-sign Co-sign Detail Recorded Client Recorded Date Recorded By Document 09/29/23 10:37 KW Desktop 09/29/23 10:54 KW Document 10/06/23 10:52 DL Desktop 10/06/23 11:15 DL 09/29/23 10/06/23 10:37 10:52 Wound Center Nurse 1 #6 R DORSAL foot -Current Size (cm) - Length 0.1 -Current Size (cm) - Width 0.1 -Current Size (cm) - Depth 0.1 -Total Square Cm 0.01 -Exudate Amt Medium -Exudate Type Serosanguineous -Wound Margin Distinct, Outline Attached -Granulation Amt Large (67-100%) -Granulation Quality Red -Necrosis Amt Small (1-33%) -Necrotic Tissue Type Adherent Slough -Texture (Yuliet-wound Skin Appearance) Assessed,Callus -Moisture (Yuliet-wound Skin Appearance) Assessed -Color (Yuliet-wound Skin Appearance) Assessed -Temperature (Yuliet-wound Skin No Abnormality Appearance) (Pt Warm) -Ulcer Cleansing Soap and Water -Anesthetic Used 4% Lidocaine Solution 7-right plantar foot -Current Size (cm) - Length 0.1 0.1 -Current Size (cm) - Width 0.1 0.1 -Current Size (cm) - Depth 0.1 0.1 -Total Square Cm 0.01 0.01 -Exudate Amt Medium -Exudate Type Serosanguineous -Wound Margin Thickened -Granulation Amt Large (67-100%) Medium (34-66%) -Granulation Quality Red [place] -Necrosis Amt Small (1-33%) Medium (34-66%) -Necrotic Tissue Type Adherent Slough Adherent Slough -Structure Exposed N/A -Texture (Yuliet-wound Skin Appearance) Assessed Scarring -Moisture (Yuliet-wound Skin Appearance) Assessed, Dry/Scaly Maceration -Color (Yuliet-wound Skin Appearance) Assessed Hemosiderin Staining -Temperature (Yuliet-wound Skin No Abnormality No Abnormality Appearance) (Pt Warm) (Pt Warm) -Tenderness on Palpation (Yuliet-wound No Skin Appearance) -Ulcer Cleansing Soap and Water Soap and Water -Foul Odor after Cleansing No -Anesthetic Used 4% Lidocaine 4% Lidocaine Solution Solution #5 L Med foot -Current Size (cm) - Length 0.1 -Current Size (cm) - Width 0.1 -Current Size (cm) - Depth 0.1 -Total Square Cm 0.01 -Exudate Amt Medium -Exudate Type Serosanguineous -Wound Margin Distinct, Outline Attached -Granulation Amt Medium (34-66%) -Granulation Quality Red -Necrosis Amt Medium (34-66%) -Necrotic Tissue Type Adherent Slough -Structure Exposed N/A -Texture (Yuliet-wound Skin Appearance) Scarring -Moisture (Yuliet-wound Skin Appearance) Dry/Scaly -Color (Yuliet-wound Skin Appearance) Hemosiderin Staining -Temperature (Yuliet-wound Skin No Abnormality Appearance) (Pt Warm) -Tenderness on Palpation (Yuliet-wound No Skin Appearance) -Ulcer Cleansing Soap and Water -Foul Odor after Cleansing No -Anesthetic Used 4% Lidocaine Solution #3 R Med Foot -Current Size (cm) - Length 0.1 0.1 -Current Size (cm) - Width 0.1 0.1 -Current Size (cm) - Depth 0.1 0.1 -Total Square Cm 0.01 0.01 -Exudate Amt Medium Medium -Exudate Type Serosanguineous Serosanguineous -Wound Margin Distinct, Distinct, Outline Outline Attached Attached -Granulation Amt Large (67-100%) Large (67-100%) -Granulation Quality Red Red -Necrosis Amt Small (1-33%) Medium (34-66%) -Necrotic Tissue Type Adherent Slough Adherent Slough -Structure Exposed N/A -Texture (Yuliet-wound Skin Appearance) Callus Scarring -Moisture (Yuliet-wound Skin Appearance) Assessed Dry/Scaly -Color (Yuliet-wound Skin Appearance) Assessed Hemosiderin Staining -Temperature (Yuliet-wound Skin No Abnormality No Abnormality Appearance) (Pt Warm) (Pt Warm) -Ulcer Cleansing Soap and Water Soap and Water -Foul Odor after Cleansing No -Anesthetic Used 4% Lidocaine 4% Lidocaine Solution Solution #2 R Lat foot -Current Size (cm) - Length 0.1 0.1 -Current Size (cm) - Width 0.1 0.1 -Current Size (cm) - Depth 0.1 0.1 -Total Square Cm 0.01 0.01 -Exudate Amt Medium -Exudate Type Serosanguineous -Granulation Amt Large (67-100%) Medium (34-66%) -Granulation Quality Red Red -Necrosis Amt Small (1-33%) Large (67-100%) -Necrotic Tissue Type Adherent Slough Adherent Slough -Structure Exposed N/A -Texture (Yuliet-wound Skin Appearance) Assessed Scarring -Moisture (Yuliet-wound Skin Appearance) Assessed Dry/Scaly -Color (Yuliet-wound Skin Appearance) Assessed Hemosiderin Staining -Temperature (Yuliet-wound Skin No Abnormality No Abnormality Appearance) (Pt Warm) (Pt Warm) -Ulcer Cleansing Soap and Water Soap and Water -Foul Odor after Cleansing No -Anesthetic Used 4% Lidocaine 4% Lidocaine Solution Solution Right Calf (cm) 29.6 Right Ankle (cm) 21.6 Left Calf (cm) 29.3 Left Ankle (cm) 21.3 WC - Nurse 2 - General Ulcer CM Notes Start: 09/29/23 10:36 Freq: Status: Active Protocol: Activity Type Activity Date Activity User E-sign Co-sign Detail Recorded Client Recorded Date Recorded By Document 09/29/23 11:36 Laptop 09/29/23 11:42 09/29/23 11:36 Wound Center Nurse 2 #6 R DORSAL foot -Correct Patient No -Correct Side, Site, Position No -Correct Procedure No -Procedure Performed No -Post Debridement (cm) - Length 0 -Post Debridement (cm) - Width 0 -Post Debridement (cm) - Depth 0 -Total Square (Post) (cm) 0 -Area of Debridement (cm) - Length 0 -Area of Debridement (cm) - Width 0 -Total Square (Area) (cm) 0 -Wound/Ulcer Outcome Healed- Epithelialized 7-right plantar foot -Time 11:38 -Correct Patient Yes -Correct Side, Site, Position Yes -Correct Procedure Yes -Procedure Performed Yes -Type of Procedure Debridement -Clinical Debridement Subcutaneous -Tissue Removed Subcutaneous -Post Debridement (cm) - Length 2.5 -Post Debridement (cm) - Width 1.0 -Post Debridement (cm) - Depth 0.1 -Total Square (Post) (cm) 2.50 -Area of Debridement (cm) - Length 2.5 -Area of Debridement (cm) - Width 1.0 -Total Square (Area) (cm) 2.50 -Tunneling No -Undermining/Tunneling No -Circular Undermining No -Wound/Ulcer Outcome Not Healed -Ulcer Cleansing Rinsed/ Irrigated with Saline -Foul Odor after Cleansing No -Bioengineered Tissue No -Bleeding Controlled with Pressure -Treatment Response Procedure Tolerated Well -Offloading Yes -Type of Offloading Surgical Shoe -Assistive Device(s) Wheelchair -Debridement - Subq, 20sq cm No #5 L Med foot -Time 11:40 -Correct Patient Yes -Correct Side, Site, Position Yes -Correct Procedure Yes -Procedure Performed Yes -Type of Procedure Debridement -Clinical Debridement Subcutaneous -Tissue Removed Subcutaneous -Post Debridement (cm) - Length 1.5 -Post Debridement (cm) - Width 1.4 -Post Debridement (cm) - Depth 0.1 -Total Square (Post) (cm) 2.10 -Area of Debridement (cm) - Length 1.5 -Area of Debridement (cm) - Width 1.4 -Total Square (Area) (cm) 2.10 -Tunneling No -Undermining/Tunneling No -Circular Undermining No -Wound/Ulcer Outcome Not Healed -Ulcer Cleansing Rinsed/ Irrigated with Saline -Foul Odor after Cleansing No -Bioengineered Tissue No -Bleeding Controlled with Pressure -Treatment Response Procedure Tolerated Well -Offloading No -Debridement - Subq, 20sq cm No #3 R Med Foot -Time 11:40 -Correct Patient Yes -Correct Side, Site, Position Yes -Correct Procedure Yes -Procedure Performed Yes -Type of Procedure Debridement -Clinical Debridement Subcutaneous -Tissue Removed Subcutaneous -Post Debridement (cm) - Length 9.0 -Post Debridement (cm) - Width 1.5 -Post Debridement (cm) - Depth 0.1 -Total Square (Post) (cm) 13.50 -Area of Debridement (cm) - Length 9.0 -Area of Debridement (cm) - Width 1.5 -Total Square (Area) (cm) 13.50 -Tunneling No -Undermining/Tunneling No -Circular Undermining No -Wound/Ulcer Outcome Not Healed -Ulcer Cleansing Rinsed/ Irrigated with Saline -Foul Odor after Cleansing No -Bioengineered Tissue No -Bleeding Controlled with Pressure -Treatment Response Procedure Tolerated Well -Offloading No -Debridement - Subq, 20sq cm No #2 R Lat foot -Time 11:41 -Correct Patient Yes -Correct Side, Site, Position Yes -Correct Procedure Yes -Procedure Performed Yes -Type of Procedure Debridement -Clinical Debridement Subcutaneous -Tissue Removed Subcutaneous -Post Debridement (cm) - Length 5.5 -Post Debridement (cm) - Width 1.0 -Post Debridement (cm) - Depth 0.2 -Total Square (Post) (cm) 5.50 -Area of Debridement (cm) - Length 5.5 -Area of Debridement (cm) - Width 1.0 -Total Square (Area) (cm) 5.50 -Tunneling No -Undermining/Tunneling No -Circular Undermining No -Wound/Ulcer Outcome Not Healed -Ulcer Cleansing Rinsed/ Irrigated with Saline -Foul Odor after Cleansing No -Bioengineered Tissue No -Bleeding Controlled with Pressure -Treatment Response Procedure Tolerated Well -Offloading Yes -Type of Offloading Surgical Shoe -Assistive Device(s) Wheelchair -Debridement - Subq, 1st 20sq cm Yes -Debridement, SubQ, ea addt'l 20sq cm 1 or part thereof Pain Scale: 0-10 Numeric Is Patient Pain Free? Yes - Nurse 3 - General Ulcer D/C NN Start: 09/29/23 10:36 Freq: Status: Active Protocol: Activity Type Activity Date Activity User E-sign Co-sign Detail Recorded Client Recorded Date Recorded By Document 09/29/23 12:06 RB Desktop 09/29/23 12:09 RB 09/29/23 12:06 Wound Care Center Nurse 3 7-right plantar foot -Other Dressing betadine gauze -Primary Dressing Covered/Secured with Dry Gauze,Dry Gauze & Roll Gauze,Secured with Tape #5 L Med foot -Other Dressing betadine gauze -Primary Dressing Covered/Secured with Dry Gauze,Dry Gauze & Roll Gauze,Secured with Tape #3 R Med Foot -Other Dressing betadine gauze -Primary Dressing Covered/Secured with Dry Gauze,Dry Gauze & Roll Gauze,Secured with Tape #2 R Lat foot -Other Dressing betadine gauze/ ABD -Primary Dressing Covered/Secured with Dry Gauze,Dry Gauze & Roll Gauze,Secured with Tape Right -Other bridgette Left -Other bridgette Treatment Response Procedure Tolerated Well Pain Scale: 0-10 Numeric Is Patient Pain Free? Yes - Visit Discharge Discharge Condition Stable Ambulatory Status Wheelchair Transportation Private Auto Medication Reconcilliation completed & No provided to patient/care provider Clinical Summary of Care Provided Yes Assessment/Plan Assessment/Plan (1) Venous insufficiency (chronic) (peripheral): CODE(S): I87.2 - Venous insufficiency (chronic) (peripheral) PLAN: Exam performed Arterial and venous studies reviewed Patient on Coumadin Patient underwent recent venous procedure per Dr. Arvizu. This will likely help with patient's edema and wound healing moving forward. Today bilateral foot and ankle wounds were debrided excisionally down to including level of subcutaneous tissue of all nonviable tissue using 5mm dermal curette. No anesthesia due to neuropathy. Hemostasis with compression. Patient tolerated procedure well. Pre and postdebridement measurements documented nursing notes. radiographs negative for osteomyelitis patient off antibiotics, no residual signs of infection Will plan for daily Betadine wet-to-dry dressing changes with overlying dry sterile dressing and Tubigrip. This to be performed by snf. No weightbearing restrictions at current. This may change pending patient's healing status. Due to deformity advanced age, will consider BKA if there is any development of a life or limb threatening infection. At current we will continue with local wound care. 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
--- NOTE | 2023-10-06 11:45 | PCM.WC.PN ---
History of Present Illness Date of Service: 10/06/23 Chief Complaint: Nonhealing bilateral lower extremity ulcers History of Wound: Mr Wilson is an 82-year-old who was brought in here from his senior care due to nonhealing bilateral lower extremity ulcers. Has had recurrent ulcerations for over 10 years with most recent episode being more severe late last year. 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 No changes today. Patient denies any fever chills nausea vomiting chest pain calf pain at current. Patient resides in snf facility. Patient receives daily Betadine DSD bilaterally. Patient has a minimally ambulatory status due to deformity and weakness. Patient states that he does ambulate assisted by walker within the confines of his room to the bathroom. States he does this on a daily basis. No other complaints. Objective Data Objective Data Vital Signs: Vital Signs Temp Pulse Resp BP 98.1 F 73 20 H 109/65 10/06/23 10:52 09/29/23 10:37 10/06/23 10:52 09/29/23 10:37 Physical Exam Narrative Vascular: Dorsalis pedis posterior tibial pulses palpable to bilateral lower extremity. Atrophic skin changes such as shiny taut appearance noted with absent digital hair growth. Patient does have +1 pitting edema to bilateral lower extremity with hemosiderin deposits noted. Neurologic: Light touch protective sensation diminished bilateral feet. Dermatologic: Multiple full-thickness wounds to right lower extremity noted to the lateral midfoot dorsal forefoot plantar forefoot medial foot and ankle. Full-thickness wound noted to the left medial ankle. these wounds are large in length and width but are limited in depth to subcutaneous tissue. Wounds demonstrate a mixed fibrogranular base with significant periwound maceration erythema and edema. There is no to be moderate drainage from these wounds. 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 This appears to contribute to wound formation and poor ambulatory status patient. Patient has diffuse muscular weakness 4 out of 5 to bilateral lower extremity compartments. On the left lower extremity patient has an equinus contracture to the hindfoot. Debridement Note Debridement Note Post-Debridement Measurements and Additional Note: Post-Debridement Measurements/Treatment WC - Nurse 1 - General Ulcer Assessment Start: 09/29/23 10:36 Freq: Status: Active Protocol: MARTA Activity Type Activity Date Activity User E-sign Co-sign Detail Recorded Client Recorded Date Recorded By Document 09/29/23 10:37 KW Desktop 09/29/23 10:54 KW Document 10/06/23 10:52 DL Desktop 10/06/23 11:15 DL 09/29/23 10/06/23 10:37 10:52 WC - Today's Visit Information Type of service Follow-up Visit Follow-up Visit (Physician/DINING CAR CONDUCTOR (Physician/DINING CAR CONDUCTOR ) ) Arrival Mode Wheelchair Wheelchair Transfer Assistance Manual Manual Transfer Assist (Other) 1 x2 Patient Identification Verified (Name & Yes Yes ) Patient Requires Transmission-Based No No Precautions Safety Precautions Fall Prevention Vital Signs Temperature (97.8 F-99.1 F) 98.3 F 98.1 F Temperature Source Temporal Temporal Pulse Rate (60-100) 73 Pulse Location Monitor Respiratory Rate (12-18) 16 20 H Respiratory rate source Observation Observation Blood Pressure (90/60-120/80) 109/65 Blood Pressure Mean (mm Hg) 79 Source Monitor Position Sitting Blood Pressure Location Left Forearm History Since Last Visit- (Skip if this is Patient's initial visit) Have you changed medications since your No No last visit? Any new allergies or adverse reactions No No Had a fall/change in ADL's that may No No increase risk of falls Signs or symptoms of abuse and/or No No neglect since last visit Have you been in the hospital since your No No last visit? Has dressing in place as prescribed Yes Yes Has compression in place as prescribed Yes Yes Has offloadiing in place as prescribed Yes Yes Experienced any changes in pain level or No management Left Footwear Surgical Shoe Removable Cast with pressure Walker/Walking relief insole Boot Right Footwear Surgical Shoe Surgical Shoe with pressure with pressure relief insole relief insole Pain Scale: 0-10 Numeric Is Patient Pain Free? Yes Yes SASHA - Nurse 1 - General Ulcer Measurement Start: 09/29/23 10:36 Freq: Status: Active Protocol: Activity Type Activity Date Activity User E-sign Co-sign Detail Recorded Client Recorded Date Recorded By Document 09/29/23 10:37 KW Desktop 09/29/23 10:54 KW Document 10/06/23 10:52 DL Desktop 10/06/23 11:15 DL 09/29/23 10/06/23 10:37 10:52 Wound Center Nurse 1 #6 R DORSAL foot -Current Size (cm) - Length 0.1 -Current Size (cm) - Width 0.1 -Current Size (cm) - Depth 0.1 -Total Square Cm 0.01 -Exudate Amt Medium -Exudate Type Serosanguineous -Wound Margin Distinct, Outline Attached -Granulation Amt Large (67-100%) -Granulation Quality Red -Necrosis Amt Small (1-33%) -Necrotic Tissue Type Adherent Slough -Texture (Yuliet-wound Skin Appearance) Assessed,Callus -Moisture (Yuliet-wound Skin Appearance) Assessed -Color (Yuliet-wound Skin Appearance) Assessed -Temperature (Yuliet-wound Skin No Abnormality Appearance) (Pt Warm) -Ulcer Cleansing Soap and Water -Anesthetic Used 4% Lidocaine Solution 7-right plantar foot -Current Size (cm) - Length 0.1 0.1 -Current Size (cm) - Width 0.1 0.1 -Current Size (cm) - Depth 0.1 0.1 -Total Square Cm 0.01 0.01 -Exudate Amt Medium -Exudate Type Serosanguineous -Wound Margin Thickened -Granulation Amt Large (67-100%) Medium (34-66%) -Granulation Quality Red [place] -Necrosis Amt Small (1-33%) Medium (34-66%) -Necrotic Tissue Type Adherent Slough Adherent Slough -Structure Exposed N/A -Texture (Yuliet-wound Skin Appearance) Assessed Scarring -Moisture (Yuliet-wound Skin Appearance) Assessed, Dry/Scaly Maceration -Color (Yuliet-wound Skin Appearance) Assessed Hemosiderin Staining -Temperature (Yuliet-wound Skin No Abnormality No Abnormality Appearance) (Pt Warm) (Pt Warm) -Tenderness on Palpation (Yuliet-wound No Skin Appearance) -Ulcer Cleansing Soap and Water Soap and Water -Foul Odor after Cleansing No -Anesthetic Used 4% Lidocaine 4% Lidocaine Solution Solution #5 L Med foot -Current Size (cm) - Length 0.1 -Current Size (cm) - Width 0.1 -Current Size (cm) - Depth 0.1 -Total Square Cm 0.01 -Exudate Amt Medium -Exudate Type Serosanguineous -Wound Margin Distinct, Outline Attached -Granulation Amt Medium (34-66%) -Granulation Quality Red -Necrosis Amt Medium (34-66%) -Necrotic Tissue Type Adherent Slough -Structure Exposed N/A -Texture (Yuliet-wound Skin Appearance) Scarring -Moisture (Yuliet-wound Skin Appearance) Dry/Scaly -Color (Yuliet-wound Skin Appearance) Hemosiderin Staining -Temperature (Yuliet-wound Skin No Abnormality Appearance) (Pt Warm) -Tenderness on Palpation (Yuliet-wound No Skin Appearance) -Ulcer Cleansing Soap and Water -Foul Odor after Cleansing No -Anesthetic Used 4% Lidocaine Solution #3 R Med Foot -Current Size (cm) - Length 0.1 0.1 -Current Size (cm) - Width 0.1 0.1 -Current Size (cm) - Depth 0.1 0.1 -Total Square Cm 0.01 0.01 -Exudate Amt Medium Medium -Exudate Type Serosanguineous Serosanguineous -Wound Margin Distinct, Distinct, Outline Outline Attached Attached -Granulation Amt Large (67-100%) Large (67-100%) -Granulation Quality Red Red -Necrosis Amt Small (1-33%) Medium (34-66%) -Necrotic Tissue Type Adherent Slough Adherent Slough -Structure Exposed N/A -Texture (Yuliet-wound Skin Appearance) Callus Scarring -Moisture (Yuliet-wound Skin Appearance) Assessed Dry/Scaly -Color (Yuliet-wound Skin Appearance) Assessed Hemosiderin Staining -Temperature (Yuliet-wound Skin No Abnormality No Abnormality Appearance) (Pt Warm) (Pt Warm) -Ulcer Cleansing Soap and Water Soap and Water -Foul Odor after Cleansing No -Anesthetic Used 4% Lidocaine 4% Lidocaine Solution Solution #2 R Lat foot -Current Size (cm) - Length 0.1 0.1 -Current Size (cm) - Width 0.1 0.1 -Current Size (cm) - Depth 0.1 0.1 -Total Square Cm 0.01 0.01 -Exudate Amt Medium -Exudate Type Serosanguineous -Granulation Amt Large (67-100%) Medium (34-66%) -Granulation Quality Red Red -Necrosis Amt Small (1-33%) Large (67-100%) -Necrotic Tissue Type Adherent Slough Adherent Slough -Structure Exposed N/A -Texture (Yuliet-wound Skin Appearance) Assessed Scarring -Moisture (Yuliet-wound Skin Appearance) Assessed Dry/Scaly -Color (Yuliet-wound Skin Appearance) Assessed Hemosiderin Staining -Temperature (Yuliet-wound Skin No Abnormality No Abnormality Appearance) (Pt Warm) (Pt Warm) -Ulcer Cleansing Soap and Water Soap and Water -Foul Odor after Cleansing No -Anesthetic Used 4% Lidocaine 4% Lidocaine Solution Solution Right Calf (cm) 29.6 Right Ankle (cm) 21.6 Left Calf (cm) 29.3 Left Ankle (cm) 21.3 WC - Nurse 2 - General Ulcer CM Notes Start: 09/29/23 10:36 Freq: Status: Active Protocol: Activity Type Activity Date Activity User E-sign Co-sign Detail Recorded Client Recorded Date Recorded By Document 09/29/23 11:36 [employer] Laptop 09/29/23 11:42 Document 10/06/23 11:41 [employer] Laptop 10/06/23 11:45 09/29/23 10/06/23 11:36 11:41 Wound Center Nurse 2 #6 R DORSAL foot -Correct Patient No -Correct Side, Site, Position No -Correct Procedure No -Procedure Performed No -Post Debridement (cm) - Length 0 -Post Debridement (cm) - Width 0 -Post Debridement (cm) - Depth 0 -Total Square (Post) (cm) 0 -Area of Debridement (cm) - Length 0 -Area of Debridement (cm) - Width 0 -Total Square (Area) (cm) 0 -Wound/Ulcer Outcome Healed- Epithelialized 7-right plantar foot -Time 11:38 11:42 -Correct Patient Yes Yes -Correct Side, Site, Position Yes Yes -Correct Procedure Yes Yes -Procedure Performed Yes Yes -Type of Procedure Debridement Debridement -Clinical Debridement Subcutaneous Subcutaneous -Tissue Removed Subcutaneous Subcutaneous -Post Debridement (cm) - Length 2.5 1.0 -Post Debridement (cm) - Width 1.0 2.0 -Post Debridement (cm) - Depth 0.1 0.2 -Total Square (Post) (cm) 2.50 2.00 -Area of Debridement (cm) - Length 2.5 1.0 -Area of Debridement (cm) - Width 1.0 2.0 -Total Square (Area) (cm) 2.50 2.00 -Tunneling No No -Undermining/Tunneling No No -Circular Undermining No No -Wound/Ulcer Outcome Not Healed Not Healed -Ulcer Cleansing Rinsed/ Rinsed/ Irrigated with Irrigated with Saline Saline -Foul Odor after Cleansing No No -Bioengineered Tissue No No -Bleeding Controlled with Pressure Pressure -Treatment Response Procedure Procedure Tolerated Well Tolerated Well -Offloading Yes No -Type of Offloading Surgical Shoe -Assistive Device(s) Wheelchair -Debridement - Subq, 1st 20sq cm No No #5 L Med foot -Time 11:40 11:43 -Correct Patient Yes Yes -Correct Side, Site, Position Yes Yes -Correct Procedure Yes Yes -Procedure Performed Yes Yes -Type of Procedure Debridement Debridement -Clinical Debridement Subcutaneous Subcutaneous -Tissue Removed Subcutaneous Subcutaneous -Post Debridement (cm) - Length 1.5 1.3 -Post Debridement (cm) - Width 1.4 1.5 -Post Debridement (cm) - Depth 0.1 0.3 -Total Square (Post) (cm) 2.10 1.95 -Area of Debridement (cm) - Length 1.5 1.3 -Area of Debridement (cm) - Width 1.4 1.5 -Total Square (Area) (cm) 2.10 1.95 -Tunneling No No -Undermining/Tunneling No No -Circular Undermining No No -Wound/Ulcer Outcome Not Healed Not Healed -Ulcer Cleansing Rinsed/ Rinsed/ Irrigated with Irrigated with Saline Saline -Foul Odor after Cleansing No No -Bioengineered Tissue No No -Bleeding Controlled with Pressure Pressure -Treatment Response Procedure Procedure Tolerated Well Tolerated Well -Offloading No No -Debridement - Subq, 1st 20sq cm No No #3 R Med Foot -Time 11:40 11:44 -Correct Patient Yes Yes -Correct Side, Site, Position Yes Yes -Correct Procedure Yes Yes -Procedure Performed Yes Yes -Type of Procedure Debridement Debridement -Clinical Debridement Subcutaneous Subcutaneous -Tissue Removed Subcutaneous Subcutaneous -Post Debridement (cm) - Length 9.0 0.3 -Post Debridement (cm) - Width 1.5 0.3 -Post Debridement (cm) - Depth 0.1 0.2 -Total Square (Post) (cm) 13.50 0.09 -Area of Debridement (cm) - Length 9.0 0.3 -Area of Debridement (cm) - Width 1.5 0.3 -Total Square (Area) (cm) 13.50 0.09 -Tunneling No No -Undermining/Tunneling No No -Circular Undermining No No -Wound/Ulcer Outcome Not Healed Not Healed -Ulcer Cleansing Rinsed/ Rinsed/ Irrigated with Irrigated with Saline Saline -Foul Odor after Cleansing No No -Bioengineered Tissue No No -Bleeding Controlled with Pressure Pressure -Treatment Response Procedure Procedure Tolerated Well Tolerated Well -Offloading No No -Debridement - Subq, 1st 20sq cm No No #2 R Lat foot -Time 11:41 11:44 -Correct Patient Yes Yes -Correct Side, Site, Position Yes Yes -Correct Procedure Yes Yes -Procedure Performed Yes Yes -Type of Procedure Debridement Debridement -Clinical Debridement Subcutaneous Subcutaneous -Tissue Removed Subcutaneous Subcutaneous -Post Debridement (cm) - Length 5.5 5.0 -Post Debridement (cm) - Width 1.0 0.5 -Post Debridement (cm) - Depth 0.2 0.2 -Total Square (Post) (cm) 5.50 2.50 -Area of Debridement (cm) - Length 5.5 5.0 -Area of Debridement (cm) - Width 1.0 0.5 -Total Square (Area) (cm) 5.50 2.50 -Tunneling No No -Undermining/Tunneling No No -Circular Undermining No No -Wound/Ulcer Outcome Not Healed Not Healed -Ulcer Cleansing Rinsed/ Rinsed/ Irrigated with Irrigated with Saline Saline -Foul Odor after Cleansing No No -Bioengineered Tissue No No -Bleeding Controlled with Pressure Pressure -Treatment Response Procedure Procedure Tolerated Well Tolerated Well -Offloading Yes No -Type of Offloading Surgical Shoe -Assistive Device(s) Wheelchair -Debridement - Subq, 1st 20sq cm Yes Yes -Debridement, SubQ, ea addt'l 20sq cm 1 or part thereof Pain Scale: 0-10 Numeric Is Patient Pain Free? Yes Yes WC - Nurse 3 - General Ulcer D/C NN Start: 09/29/23 10:36 Freq: Status: Active Protocol: Activity Type Activity Date Activity User E-sign Co-sign Detail Recorded Client Recorded Date Recorded By Document 09/29/23 12:06 RB Desktop 09/29/23 12:09 RB 09/29/23 12:06 Wound Care Center Nurse 3 7-right plantar foot -Other Dressing betadine gauze -Primary Dressing Covered/Secured with Dry Gauze,Dry Gauze & Roll Gauze,Secured with Tape #5 L Med foot -Other Dressing betadine gauze -Primary Dressing Covered/Secured with Dry Gauze,Dry Gauze & Roll Gauze,Secured with Tape #3 R Med Foot -Other Dressing betadine gauze -Primary Dressing Covered/Secured with Dry Gauze,Dry Gauze & Roll Gauze,Secured with Tape #2 R Lat foot -Other Dressing betadine gauze/ ABD -Primary Dressing Covered/Secured with Dry Gauze,Dry Gauze & Roll Gauze,Secured with Tape Right -Other bridgette Left -Other bridgette Treatment Response Procedure Tolerated Well Pain Scale: 0-10 Numeric Is Patient Pain Free? Yes WC - Visit Discharge Discharge Condition Stable Ambulatory Status Wheelchair Transportation Private Auto Medication Reconcilliation completed & No provided to patient/care provider Clinical Summary of Care Provided Yes Assessment/Plan Assessment/Plan (1) Venous insufficiency (chronic) (peripheral): CODE(S): I87.2 - Venous insufficiency (chronic) (peripheral) PLAN: Exam performed Arterial and venous studies reviewed Patient on Coumadin Patient underwent recent venous procedure per Dr. Arvizu. This will likely help with patient's edema and wound healing moving forward. Today bilateral foot and ankle wounds were debrided excisionally down to including level of subcutaneous tissue of all nonviable tissue using 5mm dermal curette. No anesthesia due to neuropathy. Hemostasis with compression. Patient tolerated procedure well. Pre and postdebridement measurements documented nursing notes. radiographs negative for osteomyelitis patient off antibiotics, no residual signs of infection Will plan for daily Betadine wet-to-dry dressing changes with overlying dry sterile dressing and Tubigrip. This to be performed by senior care. No weightbearing restrictions at current. This may change pending patient's healing status. Due to deformity advanced age, will consider BKA if there is any development of a life or limb threatening infection. At current we will continue with local wound care. 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
--- NOTE | 2023-10-09 13:51 | WC ---
Gabriela, nurse at [facility], requested full report of October 05 visit. Faxed using number [phone].
[2023-10-13 10:48] VITALS: BP 101/53; PULSE 67; RESP 20; TEMP 36.6
--- NOTE | 2023-10-13 11:17 | PCM.WC.PN ---
History of Present Illness Date of Service: 10/13/23 Chief Complaint: Nonhealing bilateral lower extremity ulcers History of Wound: Mr Wilson is an 82-year-old who was brought in here from his [facility] due to nonhealing bilateral lower extremity ulcers. Has had recurrent ulcerations for over 10 years with most recent episode being more severe late last year. 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 No changes today. Patient denies any fever chills nausea vomiting chest pain calf pain at current. Patient resides in long-term facility. Patient receives daily Betadine DSD bilaterally. Patient has a minimally ambulatory status due to deformity and weakness. Patient states that he does ambulate assisted by walker within the confines of his room to the bathroom. States he does this on a daily basis. No other complaints. Objective Data Objective Data Vital Signs: Vital Signs Temp Pulse Resp BP 97.8 F 67 20 H 101/53 L 10/13/23 10:48 10/13/23 10:48 10/13/23 10:48 10/13/23 10:48 Physical Exam Narrative Vascular: Dorsalis pedis posterior tibial pulses palpable to bilateral lower extremity. Atrophic skin changes such as shiny taut appearance noted with absent digital hair growth. Patient does have +1 pitting edema to bilateral lower extremity with hemosiderin deposits noted. Neurologic: Light touch protective sensation diminished bilateral feet. Dermatologic: Healthy lateral right ankle wound. Plantar right foot wound. Healed dorsal right foot wound. Healed right medial ankle and foot wound. Healthy granular left medial ankle wound. No signs of infection bilaterally. 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 This appears to contribute to wound formation and poor ambulatory status patient. Patient has diffuse muscular weakness 4 out of 5 to bilateral lower extremity compartments. On the left lower extremity patient has an equinus contracture to the hindfoot. Debridement Note Debridement Note Post-Debridement Measurements and Additional Note: Post-Debridement Measurements/Treatment WC - Nurse 1 - General Ulcer Assessment Start: 09/29/23 10:36 Freq: Status: Active Protocol: WC.LOWEXT Activity Type Activity Date Activity User E-sign Co-sign Detail Recorded Client Recorded Date Recorded By Document 09/29/23 10:37 KW Desktop 09/29/23 10:54 KW Document 10/06/23 10:52 DL Desktop 10/06/23 11:15 DL Document 10/13/23 10:48 DL Desktop 10/13/23 11:05 DL 09/29/23 10/06/23 10/13/23 10:37 10:52 10:48 - Today's Visit Information Type of service Follow-up Visit Follow-up Visit Follow-up Visit (Physician/PRESIDENT AND [employer]IEF COMMERCIAL OFFICER (Physician/PRESIDENT AND CHIEF COMMERCIAL OFFICER (Physician/PRESIDENT AND CHIEF COMMERCIAL OFFICER ) ) ) Arrival Mode Wheelchair Wheelchair Wheelchair Transfer Assistance Manual Manual None Transfer Assist (Other) 1 x2 Patient Identification Verified (Name & Yes Yes Yes ) Patient Requires Transmission-Based No No No Precautions Safety Precautions Fall Prevention Vital Signs Temperature (97.8 F-99.1 F) 98.3 F 98.1 F 97.8 F Temperature Source Temporal Temporal Temporal Pulse Rate (60-100) 73 67 Pulse Location Monitor Monitor Respiratory Rate (12-18) 16 20 H 20 H Respiratory rate source Observation Observation Observation Blood Pressure (90/60-120/80) 109/65 101/53 L Blood Pressure Mean (mm Hg) 79 69 Source Monitor Monitor Position Sitting Blood Pressure Location Left Forearm History Since Last Visit- (Skip if this is Patient's initial visit) Have you changed medications since your No No No last visit? Any new allergies or adverse reactions No No No Had a fall/change in ADL's that may No No No increase risk of falls Signs or symptoms of abuse and/or No No No neglect since last visit Have you been in the hospital since your No No No last visit? Has dressing in place as prescribed Yes Yes Yes Has compression in place as prescribed Yes Yes Yes Has offloadiing in place as prescribed Yes Yes Yes Experienced any changes in pain level or No No management Left Footwear Surgical Shoe Removable Cast with pressure Walker/Walking relief insole Boot Right Footwear Surgical Shoe Surgical Shoe with pressure with pressure relief insole relief insole Pain Scale: 0-10 Numeric Is Patient Pain Free? Yes Yes Yes - Nurse 1 - General Ulcer Measurement Start: 09/29/23 10:36 Freq: Status: Active Protocol: Activity Type Activity Date Activity User E-sign Co-sign Detail Recorded Client Recorded Date Recorded By Document 09/29/23 10:37 KW Desktop 09/29/23 10:54 KW Document 10/06/23 10:52 DL Desktop 10/06/23 11:15 DL Document 10/13/23 10:48 DL Desktop 10/13/23 11:05 DL 09/29/23 10/06/23 10/13/23 10:37 10:52 10:48 Wound Center Nurse 1 #6 R DORSAL foot -Current Size (cm) - Length 0.1 -Current Size (cm) - Width 0.1 -Current Size (cm) - Depth 0.1 -Total Square Cm 0.01 -Exudate Amt Medium -Exudate Type Serosanguineous -Wound Margin Distinct, Outline Attached -Granulation Amt Large (67-100%) -Granulation Quality Red -Necrosis Amt Small (1-33%) -Necrotic Tissue Type Adherent Slough -Texture (Yuliet-wound Skin Appearance) Assessed,Callus -Moisture (Yuliet-wound Skin Appearance) Assessed -Color (Yuliet-wound Skin Appearance) Assessed -Temperature (Yuliet-wound Skin No Abnormality Appearance) (Pt Warm) -Ulcer Cleansing Soap and Water -Anesthetic Used 4% Lidocaine Solution 7-right plantar foot -Current Size (cm) - Length 0.1 0.1 0.1 -Current Size (cm) - Width 0.1 0.1 0.1 -Current Size (cm) - Depth 0.1 0.1 0.1 -Total Square Cm 0.01 0.01 0.01 -Exudate Amt Medium Medium -Exudate Type Serosanguineous Serosanguineous -Wound Margin Thickened Distinct, Outline Attached -Granulation Amt Large (67-100%) Medium (34-66%) Medium (34-66%) -Granulation Quality Red [place] Red -Necrosis Amt Small (1-33%) Medium (34-66%) Medium (34-66%) -Necrotic Tissue Type Adherent Slough Adherent Slough Adherent Slough -Structure Exposed N/A N/A -Texture (Yuliet-wound Skin Appearance) Assessed Scarring Scarring -Moisture (Yuliet-wound Skin Appearance) Assessed, Dry/Scaly Dry/Scaly Maceration -Color (Yuliet-wound Skin Appearance) Assessed Hemosiderin Hemosiderin Staining Staining -Temperature (Yuliet-wound Skin No Abnormality No Abnormality No Abnormality Appearance) (Pt Warm) (Pt Warm) (Pt Warm) -Tenderness on Palpation (Yuliet-wound No Skin Appearance) -Ulcer Cleansing Soap and Water Soap and Water Soap and Water -Foul Odor after Cleansing No No -Anesthetic Used 4% Lidocaine 4% Lidocaine 4% Lidocaine Solution Solution Solution #5 L Med foot -Current Size (cm) - Length 0.1 0.1 -Current Size (cm) - Width 0.1 0.1 -Current Size (cm) - Depth 0.1 0.1 -Total Square Cm 0.01 0.01 -Exudate Amt Medium Medium -Exudate Type Serosanguineous Serosanguineous -Wound Margin Distinct, Distinct, Outline Outline Attached Attached -Granulation Amt Medium (34-66%) Medium (34-66%) -Granulation Quality Red Red -Necrosis Amt Medium (34-66%) Medium (34-66%) -Necrotic Tissue Type Adherent Slough Adherent Slough -Structure Exposed N/A N/A -Texture (Yuliet-wound Skin Appearance) Scarring Scarring -Moisture (Yuliet-wound Skin Appearance) Dry/Scaly Dry/Scaly -Color (Yuliet-wound Skin Appearance) Hemosiderin Hemosiderin Staining Staining -Temperature (Yuliet-wound Skin No Abnormality No Abnormality Appearance) (Pt Warm) (Pt Warm) -Tenderness on Palpation (Yuliet-wound No No Skin Appearance) -Ulcer Cleansing Soap and Water Soap and Water -Foul Odor after Cleansing No No -Anesthetic Used 4% Lidocaine 4% Lidocaine Solution Solution #3 R Med Foot -Current Size (cm) - Length 0.1 0.1 0.1 -Current Size (cm) - Width 0.1 0.1 0.1 -Current Size (cm) - Depth 0.1 0.1 0.1 -Total Square Cm 0.01 0.01 0.01 -Exudate Amt Medium Medium Medium -Exudate Type Serosanguineous Serosanguineous Serosanguineous -Wound Margin Distinct, Distinct, Distinct, Outline Outline Outline Attached Attached Attached -Granulation Amt Large (67-100%) Large (67-100%) Medium (34-66%) -Granulation Quality Red Red Red -Necrosis Amt Small (1-33%) Medium (34-66%) Medium (34-66%) -Necrotic Tissue Type Adherent Slough Adherent Slough Adherent Slough -Structure Exposed N/A N/A -Texture (Yuliet-wound Skin Appearance) Callus Scarring Scarring -Moisture (Yuliet-wound Skin Appearance) Assessed Dry/Scaly Dry/Scaly -Color (Yuliet-wound Skin Appearance) Assessed Hemosiderin Hemosiderin Staining Staining -Temperature (Yuliet-wound Skin No Abnormality No Abnormality No Abnormality Appearance) (Pt Warm) (Pt Warm) (Pt Warm) -Tenderness on Palpation (Yuliet-wound No Skin Appearance) -Ulcer Cleansing Soap and Water Soap and Water Soap and Water -Foul Odor after Cleansing No No -Anesthetic Used 4% Lidocaine 4% Lidocaine 4% Lidocaine Solution Solution Solution #2 R Lat foot -Current Size (cm) - Length 0.1 0.1 0.1 -Current Size (cm) - Width 0.1 0.1 0.1 -Current Size (cm) - Depth 0.1 0.1 0.1 -Total Square Cm 0.01 0.01 0.01 -Exudate Amt Medium Medium -Exudate Type Serosanguineous Serosanguineous -Wound Margin Distinct, Outline Attached -Granulation Amt Large (67-100%) Medium (34-66%) Medium (34-66%) -Granulation Quality Red Red Red -Necrosis Amt Small (1-33%) Large (67-100%) Medium (34-66%) -Necrotic Tissue Type Adherent Slough Adherent Slough Adherent Slough -Structure Exposed N/A N/A -Texture (Yuliet-wound Skin Appearance) Assessed Scarring Scarring -Moisture (Yuliet-wound Skin Appearance) Assessed Dry/Scaly Dry/Scaly -Color (Yuliet-wound Skin Appearance) Assessed Hemosiderin Hemosiderin Staining Staining -Temperature (Yuliet-wound Skin No Abnormality No Abnormality No Abnormality Appearance) (Pt Warm) (Pt Warm) (Pt Warm) -Tenderness on Palpation (Yuliet-wound No Skin Appearance) -Ulcer Cleansing Soap and Water Soap and Water Soap and Water -Foul Odor after Cleansing No No -Anesthetic Used 4% Lidocaine 4% Lidocaine 4% Lidocaine Solution Solution Solution Right Calf (cm) 29.6 31 Right Ankle (cm) 21.6 23 Left Calf (cm) 29.3 32.6 Left Ankle (cm) 21.3 22.3 WC - Nurse 2 - General Ulcer CM Notes Start: 09/29/23 10:36 Freq: Status: Active Protocol: Activity Type Activity Date Activity User E-sign Co-sign Detail Recorded Client Recorded Date Recorded By Document 09/29/23 11:36 Laptop 09/29/23 11:42 Document 10/06/23 11:41 Laptop 10/06/23 11:45 Document 10/13/23 11:11 Laptop 10/13/23 11:16 09/29/23 10/06/23 10/13/23 11:36 11:41 11:11 Wound Center Nurse 2 #6 R DORSAL foot -Correct Patient No -Correct Side, Site, Position No -Correct Procedure No -Procedure Performed No -Post Debridement (cm) - Length 0 -Post Debridement (cm) - Width 0 -Post Debridement (cm) - Depth 0 -Total Square (Post) (cm) 0 -Area of Debridement (cm) - Length 0 -Area of Debridement (cm) - Width 0 -Total Square (Area) (cm) 0 -Wound/Ulcer Outcome Healed- Epithelialized 7-right plantar foot -Time 11:38 11:42 11:11 -Correct Patient Yes Yes Yes -Correct Side, Site, Position Yes Yes Yes -Correct Procedure Yes Yes Yes -Procedure Performed Yes Yes Yes -Type of Procedure Debridement Debridement Debridement -Clinical Debridement Subcutaneous Subcutaneous Subcutaneous -Tissue Removed Subcutaneous Subcutaneous Subcutaneous -Post Debridement (cm) - Length 2.5 1.0 2.5 -Post Debridement (cm) - Width 1.0 2.0 1.0 -Post Debridement (cm) - Depth 0.1 0.2 0.2 -Total Square (Post) (cm) 2.50 2.00 2.50 -Area of Debridement (cm) - Length 2.5 1.0 2.5 -Area of Debridement (cm) - Width 1.0 2.0 1.0 -Total Square (Area) (cm) 2.50 2.00 2.50 -Tunneling No No No -Undermining/Tunneling No No No -Circular Undermining No No No -Wound/Ulcer Outcome Not Healed Not Healed Not Healed -Ulcer Cleansing Rinsed/ Rinsed/ Rinsed/ Irrigated with Irrigated with Irrigated with Saline Saline Saline -Foul Odor after Cleansing No No No -Bioengineered Tissue No No No -Bleeding Controlled with Pressure Pressure Pressure -Treatment Response Procedure Procedure Procedure Tolerated Well Tolerated Well Tolerated Well -Offloading Yes No No -Type of Offloading Surgical Shoe -Assistive Device(s) Wheelchair -Debridement - Subq, 1st 20sq cm No No No #5 L Med foot -Time 11:40 11:43 11:14 -Correct Patient Yes Yes Yes -Correct Side, Site, Position Yes Yes Yes -Correct Procedure Yes Yes Yes -Procedure Performed Yes Yes Yes -Type of Procedure Debridement Debridement Debridement -Clinical Debridement Subcutaneous Subcutaneous Subcutaneous -Tissue Removed Subcutaneous Subcutaneous Subcutaneous -Post Debridement (cm) - Length 1.5 1.3 1.5 -Post Debridement (cm) - Width 1.4 1.5 1.1 -Post Debridement (cm) - Depth 0.1 0.3 0.2 -Total Square (Post) (cm) 2.10 1.95 1.65 -Area of Debridement (cm) - Length 1.5 1.3 1.5 -Area of Debridement (cm) - Width 1.4 1.5 1.1 -Total Square (Area) (cm) 2.10 1.95 1.65 -Tunneling No No No -Undermining/Tunneling No No No -Circular Undermining No No No -Wound/Ulcer Outcome Not Healed Not Healed Not Healed -Ulcer Cleansing Rinsed/ Rinsed/ Rinsed/ Irrigated with Irrigated with Irrigated with Saline Saline Saline -Foul Odor after Cleansing No No No -Bioengineered Tissue No No No -Bleeding Controlled with Pressure Pressure Pressure -Treatment Response Procedure Procedure Procedure Tolerated Well Tolerated Well Tolerated Well -Offloading No No No -Debridement - Subq, 1st 20sq cm No No No #3 R Med Foot -Time 11:40 11:44 -Correct Patient Yes Yes No -Correct Side, Site, Position Yes Yes No -Correct Procedure Yes Yes No -Procedure Performed Yes Yes No -Type of Procedure Debridement Debridement -Clinical Debridement Subcutaneous Subcutaneous -Tissue Removed Subcutaneous Subcutaneous -Post Debridement (cm) - Length 9.0 0.3 -Post Debridement (cm) - Width 1.5 0.3 -Post Debridement (cm) - Depth 0.1 0.2 -Total Square (Post) (cm) 13.50 0.09 -Area of Debridement (cm) - Length 9.0 0.3 -Area of Debridement (cm) - Width 1.5 0.3 -Total Square (Area) (cm) 13.50 0.09 -Tunneling No No -Undermining/Tunneling No No -Circular Undermining No No -Wound/Ulcer Outcome Not Healed Not Healed Not Healed -Ulcer Cleansing Rinsed/ Rinsed/ Irrigated with Irrigated with Saline Saline -Foul Odor after Cleansing No No -Bioengineered Tissue No No -Bleeding Controlled with Pressure Pressure -Treatment Response Procedure Procedure Tolerated Well Tolerated Well -Offloading No No -Debridement - Subq, 1st 20sq cm No No #2 R Lat foot -Time 11:41 11:44 11:15 -Correct Patient Yes Yes Yes -Correct Side, Site, Position Yes Yes Yes -Correct Procedure Yes Yes Yes -Procedure Performed Yes Yes Yes -Type of Procedure Debridement Debridement Debridement -Clinical Debridement Subcutaneous Subcutaneous Subcutaneous -Tissue Removed Subcutaneous Subcutaneous Subcutaneous -Post Debridement (cm) - Length 5.5 5.0 4.0 -Post Debridement (cm) - Width 1.0 0.5 0.5 -Post Debridement (cm) - Depth 0.2 0.2 0.2 -Total Square (Post) (cm) 5.50 2.50 2.00 -Area of Debridement (cm) - Length 5.5 5.0 4.0 -Area of Debridement (cm) - Width 1.0 0.5 0.5 -Total Square (Area) (cm) 5.50 2.50 2.00 -Tunneling No No No -Undermining/Tunneling No No No -Circular Undermining No No No -Wound/Ulcer Outcome Not Healed Not Healed Not Healed -Ulcer Cleansing Rinsed/ Rinsed/ Rinsed/ Irrigated with Irrigated with Irrigated with Saline Saline Saline -Foul Odor after Cleansing No No No -Bioengineered Tissue No No No -Bleeding Controlled with Pressure Pressure Pressure -Treatment Response Procedure Procedure Procedure Tolerated Well Tolerated Well Tolerated Well -Offloading Yes No No -Type of Offloading Surgical Shoe -Assistive Device(s) Wheelchair -Debridement - Subq, 1st 20sq cm Yes Yes Yes -Debridement, SubQ, ea addt'l 20sq cm 1 or part thereof Pain Scale: 0-10 Numeric Is Patient Pain Free? Yes Yes Yes WC - Nurse 3 - General Ulcer D/C NN Start: 09/29/23 10:36 Freq: Status: Active Protocol: Activity Type Activity Date Activity User E-sign Co-sign Detail Recorded Client Recorded Date Recorded By Document 09/29/23 12:06 RB Desktop 09/29/23 12:09 RB Document 10/06/23 11:56 KW Desktop 10/06/23 11:57 KW 09/29/23 10/06/23 12:06 11:56 Wound Care Center Nurse 3 7-right plantar foot -Ulcer Cleansing Rinsed/ Irrigated with Saline -Other Dressing betadine gauze betadine -Primary Dressing Covered/Secured with Dry Gauze,Dry Dry Gauze & Gauze & Roll Roll Gauze, Gauze,Secured Secured with with Tape Tape #5 L Med foot -Ulcer Cleansing Rinsed/ Irrigated with Saline -Other Dressing betadine gauze betadine -Primary Dressing Covered/Secured with Dry Gauze,Dry Dry Gauze Gauze & Roll Gauze,Secured with Tape #3 R Med Foot -Ulcer Cleansing Rinsed/ Irrigated with Saline -Other Dressing betadine gauze betadine -Primary Dressing Covered/Secured with Dry Gauze,Dry Dry Gauze & Gauze & Roll Roll Gauze, Gauze,Secured Secured with with Tape Tape #2 R Lat foot -Ulcer Cleansing Rinsed/ Irrigated with Saline -Other Dressing betadine gauze/ betadine ABD -Primary Dressing Covered/Secured with Dry Gauze,Dry Dry Gauze Gauze & Roll Gauze,Secured with Tape Right -Compression Wrap Cole Wrap -Other cole Left -Compression Wrap Cole Wrap -Other cole Treatment Response Procedure Tolerated Well Pain Scale: 0-10 Numeric Is Patient Pain Free? Yes Yes WC - Visit Discharge Discharge Condition Stable Stable Ambulatory Status Wheelchair Wheelchair Transportation Private Auto Medication Reconcilliation completed & No No provided to patient/care provider Clinical Summary of Care Provided Yes Yes Assessment/Plan Assessment/Plan (1) Venous insufficiency (chronic) (peripheral): CODE(S): I87.2 - Venous insufficiency (chronic) (peripheral) PLAN: Exam performed Arterial and venous studies reviewed Patient on Coumadin Patient underwent recent venous procedure per Dr. Arvizu. This will likely help with patient's edema and wound healing moving forward. Today bilateral foot and ankle wounds were debrided excisionally down to including level of subcutaneous tissue of all nonviable tissue using 5mm dermal curette. No anesthesia due to neuropathy. Hemostasis with compression. Patient tolerated procedure well. Pre and postdebridement measurements documented nursing notes. radiographs negative for osteomyelitis patient off antibiotics, no residual signs of infection Will plan for daily Betadine wet-to-dry dressing changes with overlying dry sterile dressing and Tubigrip. This to be performed by [facility]. No weightbearing restrictions at current. This may change pending patient's healing status. Due to deformity advanced age, will consider BKA if there is any development of a life or limb threatening infection. At current we will continue with local wound care. 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
[2023-10-20 10:56] VITALS: BP 124/76; PULSE 63; RESP 18; TEMP 36.2
--- NOTE | 2023-10-20 11:32 | PCM.WC.PN ---
History of Present Illness Date of Service: 10/20/23 Chief Complaint: Nonhealing bilateral lower extremity ulcers History of Wound: Mr Wilson is an 82-year-old who was brought in here from his long-term due to nonhealing bilateral lower extremity ulcers. Has had recurrent ulcerations for over 10 years with most recent episode being more severe late last year. 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 No changes today. Patient denies any fever chills nausea vomiting chest pain calf pain at current. Patient resides in longterm facility. Patient receives daily Betadine DSD bilaterally. Patient has a minimally ambulatory status due to deformity and weakness. Patient states that he does ambulate assisted by walker within the confines of his room to the bathroom. States he does this on a daily basis. No other complaints. Objective Data Objective Data Vital Signs: Vital Signs Temp Pulse Resp BP O2 Del Method 97.2 F L 63 18 124/76 H Room Air 10/20/23 10:56 10/20/23 10:56 10/20/23 10:56 10/20/23 10:56 10/20/23 10:56 Oxygen Delivery Method Room Air Physical Exam Narrative Vascular: Dorsalis pedis posterior tibial pulses palpable to bilateral lower extremity. Atrophic skin changes such as shiny taut appearance noted with absent digital hair growth. Patient does have +1 pitting edema to bilateral lower extremity with hemosiderin deposits noted. Neurologic: Light touch protective sensation diminished bilateral feet. Dermatologic: Healed medial right ankle and foot wound. Healed dorsal right foot wound. Significantly improved right lateral foot wound. Significantly improved right plantar foot wound. Significantly improved left medial ankle wound. All wounds demonstrate clean granular bases with no deep probing undermining or signs of infection. 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 This appears to contribute to wound formation and poor ambulatory status patient. Patient has diffuse muscular weakness 4 out of 5 to bilateral lower extremity compartments. On the left lower extremity patient has an equinus contracture to the hindfoot. Debridement Note Debridement Note Post-Debridement Measurements and Additional Note: Post-Debridement Measurements/Treatment - Nurse 1 - General Ulcer Assessment Start: 09/29/23 10:36 Freq: Status: Active Protocol: MARTA Activity Type Activity Date Activity User E-sign Co-sign Detail Recorded Client Recorded Date Recorded By Document 09/29/23 10:37 KW Desktop 09/29/23 10:54 KW Document 10/06/23 10:52 DL Desktop 10/06/23 11:15 DL Document 10/13/23 10:48 DL Desktop 10/13/23 11:05 DL Document 10/20/23 10:56 KW Desktop 10/20/23 11:19 KW 09/29/23 10/06/23 10/13/23 10:37 10:52 10:48 - Today's Visit Information Type of service Follow-up Visit Follow-up Visit Follow-up Visit (Physician/VISUAL TRAINING AIDE (Physician/VISUAL TRAINING AIDE (Physician/VISUAL TRAINING AIDE ) ) ) Arrival Mode Wheelchair Wheelchair Wheelchair Transfer Assistance Manual Manual None Transfer Assist (Other) 1 x2 Patient Identification Verified (Name & Yes Yes Yes ) Patient Requires Transmission-Based No No No Precautions Safety Precautions Fall Prevention Vital Signs Temperature (97.8 F-99.1 F) 98.3 F 98.1 F 97.8 F Temperature Source Temporal Temporal Temporal Pulse Rate (60-100) 73 67 Pulse Location Monitor Monitor Respiratory Rate (12-18) 16 20 H 20 H Respiratory rate source Observation Observation Observation Oxygen Delivery Method Blood Pressure (90/60-120/80) 109/65 101/53 L Blood Pressure Mean (mm Hg) 79 69 Source Monitor Monitor Position Sitting Blood Pressure Location Left Forearm History Since Last Visit- (Skip if this is Patient's initial visit) Have you changed medications since your No No No last visit? Any new allergies or adverse reactions No No No Had a fall/change in ADL's that may No No No increase risk of falls Signs or symptoms of abuse and/or No No No neglect since last visit Have you been in the hospital since your No No No last visit? Has dressing in place as prescribed Yes Yes Yes Has compression in place as prescribed Yes Yes Yes Has offloadiing in place as prescribed Yes Yes Yes Experienced any changes in pain level or No No management Left Footwear Surgical Shoe Removable Cast with pressure Walker/Walking relief insole Boot Right Footwear Surgical Shoe Surgical Shoe with pressure with pressure relief insole relief insole Pain Scale: 0-10 Numeric Is Patient Pain Free? Yes Yes Yes 10/20/23 10:56 WC - Today's Visit Information Type of service Follow-up Visit (Physician/VISUAL TRAINING AIDE ) Arrival Mode Wheelchair Transfer Assistance Transfer Assist (Other) Patient Identification Verified (Name & Yes ) Patient Requires Transmission-Based Precautions Safety Precautions Vital Signs Temperature (97.8 F-99.1 F) 97.2 F L Temperature Source Temporal Pulse Rate (60-100) 63 Pulse Location Monitor Respiratory Rate (12-18) 18 Respiratory rate source Observation Oxygen Delivery Method Room Air Blood Pressure (90/60-120/80) 124/76 H Blood Pressure Mean (mm Hg) 92 Source Monitor Position Sitting Blood Pressure Location Left Forearm History Since Last Visit- (Skip if this is Patient's initial visit) Have you changed medications since your No last visit? Any new allergies or adverse reactions No Had a fall/change in ADL's that may No increase risk of falls Signs or symptoms of abuse and/or No neglect since last visit Have you been in the hospital since your No last visit? Has dressing in place as prescribed Yes Has compression in place as prescribed Yes Has offloadiing in place as prescribed Yes Experienced any changes in pain level or No management Left Footwear Surgical Shoe with pressure relief insole Right Footwear Wedge Shoe Pain Scale: 0-10 Numeric Is Patient Pain Free? Yes - Nurse 1 - General Ulcer Measurement Start: 09/29/23 10:36 Freq: Status: Active Protocol: Activity Type Activity Date Activity User E-sign Co-sign Detail Recorded Client Recorded Date Recorded By Document 09/29/23 10:37 KW Desktop 09/29/23 10:54 KW Document 10/06/23 10:52 DL Desktop 10/06/23 11:15 DL Document 10/13/23 10:48 DL Desktop 10/13/23 11:05 DL Document 10/20/23 10:56 KW Desktop 10/20/23 11:19 KW 09/29/23 10/06/23 10/13/23 10:37 10:52 10:48 Wound Center Nurse 1 #6 R DORSAL foot -Current Size (cm) - Length 0.1 -Current Size (cm) - Width 0.1 -Current Size (cm) - Depth 0.1 -Total Square Cm 0.01 -Exudate Amt Medium -Exudate Type Serosanguineous -Wound Margin Distinct, Outline Attached -Granulation Amt Large (67-100%) -Granulation Quality Red -Necrosis Amt Small (1-33%) -Necrotic Tissue Type Adherent Slough -Texture (Yuliet-wound Skin Appearance) Assessed,Callus -Moisture (Yuliet-wound Skin Appearance) Assessed -Color (Yuliet-wound Skin Appearance) Assessed -Temperature (Yuliet-wound Skin No Abnormality Appearance) (Pt Warm) -Ulcer Cleansing Soap and Water -Anesthetic Used 4% Lidocaine Solution #3 R Med Foot -Current Size (cm) - Length 0.1 0.1 0.1 -Current Size (cm) - Width 0.1 0.1 0.1 -Current Size (cm) - Depth 0.1 0.1 0.1 -Total Square Cm 0.01 0.01 0.01 -Exudate Amt Medium Medium Medium -Exudate Type Serosanguineous Serosanguineous Serosanguineous -Wound Margin Distinct, Distinct, Distinct, Outline Outline Outline Attached Attached Attached -Granulation Amt Large (67-100%) Large (67-100%) Medium (34-66%) -Granulation Quality Red Red Red -Necrosis Amt Small (1-33%) Medium (34-66%) Medium (34-66%) -Necrotic Tissue Type Adherent Slough Adherent Slough Adherent Slough -Structure Exposed N/A N/A -Texture (Yuliet-wound Skin Appearance) Callus Scarring Scarring -Moisture (Yuliet-wound Skin Appearance) Assessed Dry/Scaly Dry/Scaly -Color (Yuliet-wound Skin Appearance) Assessed Hemosiderin Hemosiderin Staining Staining -Temperature (Yuliet-wound Skin No Abnormality No Abnormality No Abnormality Appearance) (Pt Warm) (Pt Warm) (Pt Warm) -Tenderness on Palpation (Yuliet-wound No Skin Appearance) -Ulcer Cleansing Soap and Water Soap and Water Soap and Water -Foul Odor after Cleansing No No -Anesthetic Used 4% Lidocaine 4% Lidocaine 4% Lidocaine Solution Solution Solution 7-right plantar foot -Current Size (cm) - Length 0.1 0.1 0.1 -Current Size (cm) - Width 0.1 0.1 0.1 -Current Size (cm) - Depth 0.1 0.1 0.1 -Total Square Cm 0.01 0.01 0.01 -Exudate Amt Medium Medium -Exudate Type Serosanguineous Serosanguineous -Wound Margin Thickened Distinct, Outline Attached -Granulation Amt Large (67-100%) Medium (34-66%) Medium (34-66%) -Granulation Quality Red Graball Red -Necrosis Amt Small (1-33%) Medium (34-66%) Medium (34-66%) -Necrotic Tissue Type Adherent Slough Adherent Slough Adherent Slough -Structure Exposed N/A N/A -Texture (Yuliet-wound Skin Appearance) Assessed Scarring Scarring -Moisture (Yuliet-wound Skin Appearance) Assessed, Dry/Scaly Dry/Scaly Maceration -Color (Yuliet-wound Skin Appearance) Assessed Hemosiderin Hemosiderin Staining Staining -Temperature (Yuliet-wound Skin No Abnormality No Abnormality No Abnormality Appearance) (Pt Warm) (Pt Warm) (Pt Warm) -Tenderness on Palpation (Yuliet-wound No Skin Appearance) -Ulcer Cleansing Soap and Water Soap and Water Soap and Water -Foul Odor after Cleansing No No -Anesthetic Used 4% Lidocaine 4% Lidocaine 4% Lidocaine Solution Solution Solution #5 L Med foot -Current Size (cm) - Length 0.1 0.1 -Current Size (cm) - Width 0.1 0.1 -Current Size (cm) - Depth 0.1 0.1 -Total Square Cm 0.01 0.01 -Exudate Amt Medium Medium -Exudate Type Serosanguineous Serosanguineous -Wound Margin Distinct, Distinct, Outline Outline Attached Attached -Granulation Amt Medium (34-66%) Medium (34-66%) -Granulation Quality Red Red -Necrosis Amt Medium (34-66%) Medium (34-66%) -Necrotic Tissue Type Adherent Slough Adherent Slough -Structure Exposed N/A N/A -Texture (Yuliet-wound Skin Appearance) Scarring Scarring -Moisture (Yuliet-wound Skin Appearance) Dry/Scaly Dry/Scaly -Color (Yuliet-wound Skin Appearance) Hemosiderin Hemosiderin Staining Staining -Temperature (Yuliet-wound Skin No Abnormality No Abnormality Appearance) (Pt Warm) (Pt Warm) -Tenderness on Palpation (Yuliet-wound No No Skin Appearance) -Ulcer Cleansing Soap and Water Soap and Water -Foul Odor after Cleansing No No -Anesthetic Used 4% Lidocaine 4% Lidocaine Solution Solution #2 R Lat foot -Current Size (cm) - Length 0.1 0.1 0.1 -Current Size (cm) - Width 0.1 0.1 0.1 -Current Size (cm) - Depth 0.1 0.1 0.1 -Total Square Cm 0.01 0.01 0.01 -Exudate Amt Medium Medium -Exudate Type Serosanguineous Serosanguineous -Wound Margin Distinct, Outline Attached -Granulation Amt Large (67-100%) Medium (34-66%) Medium (34-66%) -Granulation Quality Red Red Red -Necrosis Amt Small (1-33%) Large (67-100%) Medium (34-66%) -Necrotic Tissue Type Adherent Slough Adherent Slough Adherent Slough -Structure Exposed N/A N/A -Texture (Yuliet-wound Skin Appearance) Assessed Scarring Scarring -Moisture (Yuliet-wound Skin Appearance) Assessed Dry/Scaly Dry/Scaly -Color (Yuliet-wound Skin Appearance) Assessed Hemosiderin Hemosiderin Staining Staining -Temperature (Yuliet-wound Skin No Abnormality No Abnormality No Abnormality Appearance) (Pt Warm) (Pt Warm) (Pt Warm) -Tenderness on Palpation (Yuliet-wound No Skin Appearance) -Ulcer Cleansing Soap and Water Soap and Water Soap and Water -Foul Odor after Cleansing No No -Anesthetic Used 4% Lidocaine 4% Lidocaine 4% Lidocaine Solution Solution Solution Right Calf (cm) 29.6 31 Right Ankle (cm) 21.6 23 Left Calf (cm) 29.3 32.6 Left Ankle (cm) 21.3 22.3 10/20/23 10:56 Wound Center Nurse 1 #6 R DORSAL foot -Current Size (cm) - Length -Current Size (cm) - Width -Current Size (cm) - Depth -Total Square Cm -Exudate Amt -Exudate Type -Wound Margin -Granulation Amt -Granulation Quality -Necrosis Amt -Necrotic Tissue Type -Texture (Yuliet-wound Skin Appearance) -Moisture (Yuliet-wound Skin Appearance) -Color (Yuliet-wound Skin Appearance) -Temperature (Yuliet-wound Skin Appearance) -Ulcer Cleansing -Anesthetic Used #3 R Med Foot -Current Size (cm) - Length 8.8 -Current Size (cm) - Width 2 -Current Size (cm) - Depth 0.2 -Total Square Cm 17.6 -Exudate Amt Small -Exudate Type Serosanguineous -Wound Margin Distinct, Outline Attached -Granulation Amt Small (1-33%) -Granulation Quality Graball -Necrosis Amt Large (67-100%) -Necrotic Tissue Type Adherent Slough -Structure Exposed -Texture (Yuliet-wound Skin Appearance) Assessed -Moisture (Yuliet-wound Skin Appearance) Assessed -Color (Yuliet-wound Skin Appearance) Assessed -Temperature (Yuliet-wound Skin No Abnormality Appearance) (Pt Warm) -Tenderness on Palpation (Yuliet-wound Skin Appearance) -Ulcer Cleansing Soap and Water -Foul Odor after Cleansing -Anesthetic Used 4% Lidocaine Solution 7-right plantar foot -Current Size (cm) - Length 0.6 -Current Size (cm) - Width 1.2 -Current Size (cm) - Depth 0.5 -Total Square Cm 0.72 -Exudate Amt -Exudate Type -Wound Margin -Granulation Amt Medium (34-66%) -Granulation Quality Red -Necrosis Amt Medium (34-66%) -Necrotic Tissue Type Adherent Slough -Structure Exposed -Texture (Yuliet-wound Skin Appearance) Assessed -Moisture (Yuliet-wound Skin Appearance) Assessed -Color (Yuliet-wound Skin Appearance) Assessed -Temperature (Yuliet-wound Skin No Abnormality Appearance) (Pt Warm) -Tenderness on Palpation (Yuliet-wound Skin Appearance) -Ulcer Cleansing Soap and Water -Foul Odor after Cleansing No -Anesthetic Used 4% Lidocaine Solution #5 L Med foot -Current Size (cm) - Length 4.6 -Current Size (cm) - Width 2.2 -Current Size (cm) - Depth 0.5 -Total Square Cm 10.12 -Exudate Amt -Exudate Type -Wound Margin -Granulation Amt Small (1-33%) -Granulation Quality Red -Necrosis Amt Large (67-100%) -Necrotic Tissue Type Adherent Slough -Structure Exposed -Texture (Yuliet-wound Skin Appearance) Assessed -Moisture (Yuliet-wound Skin Appearance) Assessed -Color (Yuliet-wound Skin Appearance) Assessed -Temperature (Yuliet-wound Skin No Abnormality Appearance) (Pt Warm) -Tenderness on Palpation (Yuliet-wound No Skin Appearance) -Ulcer Cleansing Soap and Water -Foul Odor after Cleansing No -Anesthetic Used 4% Lidocaine Solution #2 R Lat foot -Current Size (cm) - Length 7.8 -Current Size (cm) - Width 2.3 -Current Size (cm) - Depth 0.1 -Total Square Cm 17.94 -Exudate Amt Small -Exudate Type Serosanguineous -Wound Margin Distinct, Outline Attached -Granulation Amt Small (1-33%) -Granulation Quality Graball -Necrosis Amt Large (67-100%) -Necrotic Tissue Type Adherent Slough -Structure Exposed -Texture (Yuliet-wound Skin Appearance) Assessed -Moisture (Yuliet-wound Skin Appearance) Assessed -Color (Yuliet-wound Skin Appearance) Assessed -Temperature (Yuliet-wound Skin No Abnormality Appearance) (Pt Warm) -Tenderness on Palpation (Yuliet-wound No Skin Appearance) -Ulcer Cleansing Soap and Water -Foul Odor after Cleansing -Anesthetic Used 4% Lidocaine Solution Right Calf (cm) Right Ankle (cm) Left Calf (cm) Left Ankle (cm) WC - Nurse 2 - General Ulcer CM Notes Start: 09/29/23 10:36 Freq: Status: Active Protocol: Activity Type Activity Date Activity User E-sign Co-sign Detail Recorded Client Recorded Date Recorded By Document 09/29/23 11:36 [employer] 09/29/23 11:42 Document 10/06/23 11:41 [employer] 10/06/23 11:45 Document 10/13/23 11:11 Laptop 10/13/23 11:16 Document 10/20/23 11:25 Laptop 10/20/23 11:31 09/29/23 10/06/23 10/13/23 11:36 11:41 11:11 Wound Center Nurse 2 #6 R DORSAL foot -Correct Patient No -Correct Side, Site, Position No -Correct Procedure No -Procedure Performed No -Post Debridement (cm) - Length 0 -Post Debridement (cm) - Width 0 -Post Debridement (cm) - Depth 0 -Total Square (Post) (cm) 0 -Area of Debridement (cm) - Length 0 -Area of Debridement (cm) - Width 0 -Total Square (Area) (cm) 0 -Wound/Ulcer Outcome Healed- Epithelialized #3 R Med Foot -Time 11:40 11:44 -Correct Patient Yes Yes No -Correct Side, Site, Position Yes Yes No -Correct Procedure Yes Yes No -Procedure Performed Yes Yes No -Type of Procedure Debridement Debridement -Clinical Debridement Subcutaneous Subcutaneous -Tissue Removed Subcutaneous Subcutaneous -Post Debridement (cm) - Length 9.0 0.3 -Post Debridement (cm) - Width 1.5 0.3 -Post Debridement (cm) - Depth 0.1 0.2 -Total Square (Post) (cm) 13.50 0.09 -Area of Debridement (cm) - Length 9.0 0.3 -Area of Debridement (cm) - Width 1.5 0.3 -Total Square (Area) (cm) 13.50 0.09 -Tunneling No No -Undermining/Tunneling No No -Circular Undermining No No -Wound/Ulcer Outcome Not Healed Not Healed Not Healed -Ulcer Cleansing Rinsed/ Rinsed/ Irrigated with Irrigated with Saline Saline -Foul Odor after Cleansing No No -Bioengineered Tissue No No -Bleeding Controlled with Pressure Pressure -Treatment Response Procedure Procedure Tolerated Well Tolerated Well -Offloading No No -Debridement - Subq, 1st 20sq cm No No 7-right plantar foot -Time 11:38 11:42 11:11 -Correct Patient Yes Yes Yes -Correct Side, Site, Position Yes Yes Yes -Correct Procedure Yes Yes Yes -Procedure Performed Yes Yes Yes -Type of Procedure Debridement Debridement Debridement -Clinical Debridement Subcutaneous Subcutaneous Subcutaneous -Tissue Removed Subcutaneous Subcutaneous Subcutaneous -Post Debridement (cm) - Length 2.5 1.0 2.5 -Post Debridement (cm) - Width 1.0 2.0 1.0 -Post Debridement (cm) - Depth 0.1 0.2 0.2 -Total Square (Post) (cm) 2.50 2.00 2.50 -Area of Debridement (cm) - Length 2.5 1.0 2.5 -Area of Debridement (cm) - Width 1.0 2.0 1.0 -Total Square (Area) (cm) 2.50 2.00 2.50 -Tunneling No No No -Undermining/Tunneling No No No -Circular Undermining No No No -Wound/Ulcer Outcome Not Healed Not Healed Not Healed -Ulcer Cleansing Rinsed/ Rinsed/ Rinsed/ Irrigated with Irrigated with Irrigated with Saline Saline Saline -Foul Odor after Cleansing No No No -Bioengineered Tissue No No No -Bleeding Controlled with Pressure Pressure Pressure -Treatment Response Procedure Procedure Procedure Tolerated Well Tolerated Well Tolerated Well -Offloading Yes No No -Type of Offloading Surgical Shoe -Assistive Device(s) Wheelchair -Debridement - Subq, 1st 20sq cm No No No #5 L Med foot -Time 11:40 11:43 11:14 -Correct Patient Yes Yes Yes -Correct Side, Site, Position Yes Yes Yes -Correct Procedure Yes Yes Yes -Procedure Performed Yes Yes Yes -Type of Procedure Debridement Debridement Debridement -Clinical Debridement Subcutaneous Subcutaneous Subcutaneous -Tissue Removed Subcutaneous Subcutaneous Subcutaneous -Post Debridement (cm) - Length 1.5 1.3 1.5 -Post Debridement (cm) - Width 1.4 1.5 1.1 -Post Debridement (cm) - Depth 0.1 0.3 0.2 -Total Square (Post) (cm) 2.10 1.95 1.65 -Area of Debridement (cm) - Length 1.5 1.3 1.5 -Area of Debridement (cm) - Width 1.4 1.5 1.1 -Total Square (Area) (cm) 2.10 1.95 1.65 -Tunneling No No No -Undermining/Tunneling No No No -Circular Undermining No No No -Wound/Ulcer Outcome Not Healed Not Healed Not Healed -Ulcer Cleansing Rinsed/ Rinsed/ Rinsed/ Irrigated with Irrigated with Irrigated with Saline Saline Saline -Foul Odor after Cleansing No No No -Bioengineered Tissue No No No -Bleeding Controlled with Pressure Pressure Pressure -Treatment Response Procedure Procedure Procedure Tolerated Well Tolerated Well Tolerated Well -Offloading No No No -Debridement - Subq, 1st 20sq cm No No No #2 R Lat foot -Time 11:41 11:44 11:15 -Correct Patient Yes Yes Yes -Correct Side, Site, Position Yes Yes Yes -Correct Procedure Yes Yes Yes -Procedure Performed Yes Yes Yes -Type of Procedure Debridement Debridement Debridement -Clinical Debridement Subcutaneous Subcutaneous Subcutaneous -Tissue Removed Subcutaneous Subcutaneous Subcutaneous -Post Debridement (cm) - Length 5.5 5.0 4.0 -Post Debridement (cm) - Width 1.0 0.5 0.5 -Post Debridement (cm) - Depth 0.2 0.2 0.2 -Total Square (Post) (cm) 5.50 2.50 2.00 -Area of Debridement (cm) - Length 5.5 5.0 4.0 -Area of Debridement (cm) - Width 1.0 0.5 0.5 -Total Square (Area) (cm) 5.50 2.50 2.00 -Tunneling No No No -Undermining/Tunneling No No No -Circular Undermining No No No -Wound/Ulcer Outcome Not Healed Not Healed Not Healed -Ulcer Cleansing Rinsed/ Rinsed/ Rinsed/ Irrigated with Irrigated with Irrigated with Saline Saline Saline -Foul Odor after Cleansing No No No -Bioengineered Tissue No No No -Bleeding Controlled with Pressure Pressure Pressure -Treatment Response Procedure Procedure Procedure Tolerated Well Tolerated Well Tolerated Well -Offloading Yes No No -Type of Offloading Surgical Shoe -Assistive Device(s) Wheelchair -Debridement - Subq, 1st 20sq cm Yes Yes Yes -Debridement, SubQ, ea addt'l 20sq cm 1 or part thereof Pain Scale: 0-10 Numeric Is Patient Pain Free? Yes Yes Yes 10/20/23 11:25 Wound Center Nurse 2 #6 R DORSAL foot -Correct Patient -Correct Side, Site, Position -Correct Procedure -Procedure Performed -Post Debridement (cm) - Length -Post Debridement (cm) - Width -Post Debridement (cm) - Depth -Total Square (Post) (cm) -Area of Debridement (cm) - Length -Area of Debridement (cm) - Width -Total Square (Area) (cm) -Wound/Ulcer Outcome #3 R Med Foot -Time -Correct Patient No -Correct Side, Site, Position No -Correct Procedure No -Procedure Performed No -Type of Procedure -Clinical Debridement -Tissue Removed -Post Debridement (cm) - Length 0 -Post Debridement (cm) - Width 0 -Post Debridement (cm) - Depth 0 -Total Square (Post) (cm) 0 -Area of Debridement (cm) - Length 0 -Area of Debridement (cm) - Width 0 -Total Square (Area) (cm) 0 -Tunneling -Undermining/Tunneling -Circular Undermining -Wound/Ulcer Outcome Healed- Epithelialized -Ulcer Cleansing -Foul Odor after Cleansing -Bioengineered Tissue -Bleeding Controlled with -Treatment Response -Offloading -Debridement - Subq, 1st 20sq cm 7-right plantar foot -Time 11:26 -Correct Patient Yes -Correct Side, Site, Position Yes -Correct Procedure Yes -Procedure Performed Yes -Type of Procedure Debridement -Clinical Debridement Subcutaneous -Tissue Removed Subcutaneous -Post Debridement (cm) - Length -Post Debridement (cm) - Width -Post Debridement (cm) - Depth -Total Square (Post) (cm) -Area of Debridement (cm) - Length -Area of Debridement (cm) - Width -Total Square (Area) (cm) -Tunneling No -Undermining/Tunneling No -Circular Undermining No -Wound/Ulcer Outcome Not Healed -Ulcer Cleansing Rinsed/ Irrigated with Saline -Foul Odor after Cleansing No -Bioengineered Tissue No -Bleeding Controlled with Pressure -Treatment Response Procedure Tolerated Well -Offloading No -Type of Offloading -Assistive Device(s) Wheelchair, Walker -Debridement - Subq, 1st 20sq cm No #5 L Med foot -Time 11:29 -Correct Patient Yes -Correct Side, Site, Position Yes -Correct Procedure Yes -Procedure Performed Yes -Type of Procedure Debridement -Clinical Debridement -Tissue Removed Epidermis, Dermis -Post Debridement (cm) - Length 0.8 -Post Debridement (cm) - Width 0.8 -Post Debridement (cm) - Depth 0.3 -Total Square (Post) (cm) 0.64 -Area of Debridement (cm) - Length 0.8 -Area of Debridement (cm) - Width 0.8 -Total Square (Area) (cm) 0.64 -Tunneling No -Undermining/Tunneling -Circular Undermining No -Wound/Ulcer Outcome Not Healed -Ulcer Cleansing Rinsed/ Irrigated with Saline -Foul Odor after Cleansing No -Bioengineered Tissue No -Bleeding Controlled with Pressure -Treatment Response Procedure Tolerated Well -Offloading No -Debridement - Subq, 1st 20sq cm No #2 R Lat foot -Time 11:30 -Correct Patient Yes -Correct Side, Site, Position Yes -Correct Procedure Yes -Procedure Performed Yes -Type of Procedure Debridement -Clinical Debridement Subcutaneous -Tissue Removed Subcutaneous -Post Debridement (cm) - Length 2.5 -Post Debridement (cm) - Width 0.4 -Post Debridement (cm) - Depth 0.2 -Total Square (Post) (cm) 1.00 -Area of Debridement (cm) - Length 2.5 -Area of Debridement (cm) - Width 0.4 -Total Square (Area) (cm) 1.00 -Tunneling No -Undermining/Tunneling No -Circular Undermining No -Wound/Ulcer Outcome Not Healed -Ulcer Cleansing Rinsed/ Irrigated with Saline -Foul Odor after Cleansing No -Bioengineered Tissue No -Bleeding Controlled with Pressure -Treatment Response Procedure Tolerated Well -Offloading No -Type of Offloading -Assistive Device(s) -Debridement - Subq, 1st 20sq cm Yes -Debridement, SubQ, ea addt'l 20sq cm or part thereof Pain Scale: 0-10 Numeric Is Patient Pain Free? Yes WC - Nurse 3 - General Ulcer D/C NN Start: 09/29/23 10:36 Freq: Status: Active Protocol: Activity Type Activity Date Activity User E-sign Co-sign Detail Recorded Client Recorded Date Recorded By Document 09/29/23 12:06 RB Desktop 09/29/23 12:09 RB Document 10/06/23 11:56 KW Desktop 10/06/23 11:57 KW Document 10/13/23 11:25 KW Desktop 10/13/23 11:26 KW 09/29/23 10/06/23 10/13/23 12:06 11:56 11:25 Wound Care Center Nurse 3 #3 R Med Foot -Ulcer Cleansing Rinsed/ Irrigated with Saline -Other Dressing betadine gauze betadine betadine -Primary Dressing Covered/Secured with Dry Gauze,Dry Dry Gauze & Dry Gauze Gauze & Roll Roll Gauze, Gauze,Secured Secured with with Tape Tape 7-right plantar foot -Ulcer Cleansing Rinsed/ Irrigated with Saline -Other Dressing betadine gauze betadine betadine -Primary Dressing Covered/Secured with Dry Gauze,Dry Dry Gauze & Dry Gauze Gauze & Roll Roll Gauze, Gauze,Secured Secured with with Tape Tape #5 L Med foot -Ulcer Cleansing Rinsed/ Irrigated with Saline -Other Dressing betadine gauze betadine betadine -Primary Dressing Covered/Secured with Dry Gauze,Dry Dry Gauze Dry Gauze & Gauze & Roll Roll Gauze, Gauze,Secured Secured with with Tape Tape #2 R Lat foot -Ulcer Cleansing Rinsed/ Irrigated with Saline -Other Dressing betadine gauze/ betadine betadine ABD -Primary Dressing Covered/Secured with Dry Gauze,Dry Dry Gauze Dry Gauze & Gauze & Roll Roll Gauze, Gauze,Secured Secured with with Tape Tape Right -Compression Wrap Cole Wrap Cole Wrap -Other cole Left -Compression Wrap Cole Wrap Cole Wrap -Other cole Treatment Response Procedure Tolerated Well Pain Scale: 0-10 Numeric Is Patient Pain Free? Yes Yes Yes WC - Visit Discharge Discharge Condition Stable Stable Stable Ambulatory Status Wheelchair Wheelchair Wheelchair Transportation Private Auto Medication Reconcilliation completed & No No No provided to patient/care provider Clinical Summary of Care Provided Yes Yes Yes Assessment/Plan Assessment/Plan (1) Venous insufficiency (chronic) (peripheral): CODE(S): I87.2 - Venous insufficiency (chronic) (peripheral) PLAN: Exam performed Arterial and venous studies reviewed Patient on Coumadin Patient underwent recent venous procedure per Dr. Arvizu. This will likely help with patient's edema and wound healing moving forward. Today bilateral foot and ankle wounds were debrided excisionally down to including level of subcutaneous tissue of all nonviable tissue using 5mm dermal curette. No anesthesia due to neuropathy. Hemostasis with compression. Patient tolerated procedure well. Pre and postdebridement measurements documented nursing notes. radiographs negative for osteomyelitis patient off antibiotics, no residual signs of infection Will plan for daily Betadine wet-to-dry dressing changes with overlying dry sterile dressing and Tubigrip. This to be performed by long-term. No weightbearing restrictions at current. This may change pending patient's healing status. Due to deformity advanced age, will consider BKA if there is any development of a life or limb threatening infection. At current we will continue with local wound care. 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
== END 2023-10-27 23:59 | disposition home or self-care (01) ==
LOC: WC 10:30
PROVIDERS: PCP Family Medicine; Referring Provider Family Medicine; Visit Provider Podiatrist
DX: L97.512 Non-pressure 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 foot with fat layer exposed (principal); L97.522 Non-pressure chronic ulcer of other part of left foot with fat layer exposed; R53.1 Weakness; G62.9 Polyneuropathy, unspecified; Q66.11 Congenital talipes calcaneovarus, right foot; M24.561 Contracture, right knee; I87.2 Venous insufficiency (chronic) (peripheral); Z79.01 Long term (current) use of anticoagulants; I73.89 Other specified peripheral vascular diseases; L03.115 Cellulitis of right lower limb
CPT/HCPCS: 11042; 11045

== ENCOUNTER 2023-11-24 10:30 | Outpatient (RCR) | payer MEDICARE, BC, SELFPAY ==
[2023-10-28 00:25] VITALS: BP 124/76; PULSE 63; RESP 18; TEMP 36.2
[2023-11-03 10:46] VITALS: BP 99/61; PULSE 97; RESP 18
--- NOTE | 2023-11-03 11:21 | PCM.WC.PN ---
History of Present Illness Date of Service: 11/03/23 Chief Complaint: Nonhealing bilateral lower extremity ulcers History of Wound: Mr Wilson is an 82-year-old who was brought in here from his group home due to nonhealing bilateral lower extremity ulcers. Has had recurrent ulcerations for over 10 years with most recent episode being more severe late last year. 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 No changes today. Patient denies any fever chills nausea vomiting chest pain calf pain at current. Patient resides in nursing home facility. Patient receives daily Betadine DSD bilaterally. Patient has a minimally ambulatory status due to deformity and weakness. Patient states that he does ambulate assisted by walker within the confines of his room to the bathroom. States he does this on a daily basis. No other complaints. Objective Data Objective Data Vital Signs: Vital Signs Temp Pulse Resp BP O2 Del Method 97.2 F L 97 18 99/61 Room Air 10/28/23 00:25 11/03/23 10:46 11/03/23 10:46 11/03/23 10:46 11/03/23 10:46 Oxygen Delivery Method Room Air Physical Exam Narrative Vascular: Dorsalis pedis posterior tibial pulses palpable to bilateral lower extremity. Atrophic skin changes such as shiny taut appearance noted with absent digital hair growth. Patient does have +1 pitting edema to bilateral lower extremity with hemosiderin deposits noted. Neurologic: Light touch protective sensation diminished bilateral feet. Dermatologic: Healed medial right ankle and lateral/dorsal foot wound. Significantly improved right plantar foot wound. Significantly improved left medial ankle wound. All wounds demonstrate clean granular bases with no deep probing undermining or signs of infection. 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 This appears to contribute to wound formation and poor ambulatory status patient. Patient has diffuse muscular weakness 4 out of 5 to bilateral lower extremity compartments. On the left lower extremity patient has an equinus contracture to the hindfoot. Debridement Note Debridement Note Post-Debridement Measurements and Additional Note: Post-Debridement Measurements/Treatment SASHA - Nurse 1 - General Ulcer Assessment Start: 11/03/23 10:46 Freq: Status: Active Protocol: MARTA Activity Type Activity Date Activity User E-sign Co-sign Detail Recorded Client Recorded Date Recorded By Document 11/03/23 10:46 [facility] 11[facility]03/23 10:48 KW 11/03/23 10:46 WC - Today's Visit Information Type of service Follow-up Visit (Physician/LEAD BURNER ) Arrival Mode Wheelchair Patient Identification Verified (Name & Yes ) Vital Signs Pulse Rate (60-100) 97 Pulse Location Monitor Respiratory Rate (12-18) 18 Respiratory rate source Observation Oxygen Delivery Method Room Air Blood Pressure (90/60-120/80) 99/61 Blood Pressure Mean (mm Hg) 73 Source Monitor Position Semi-Fowlers Blood Pressure Location Left Arm History Since Last Visit- (Skip if this is Patient's initial visit) Have you changed medications since your No last visit? Any new allergies or adverse reactions No Had a fall/change in ADL's that may No increase risk of falls Signs or symptoms of abuse and/or No neglect since last visit Have you been in the hospital since your No last visit? Has dressing in place as prescribed Yes Has compression in place as prescribed Yes Has offloadiing in place as prescribed No Experienced any changes in pain level or No management Left Footwear Surgical Shoe with pressure relief insole Right Footwear Wedge Shoe Pain Scale: 0-10 Numeric Is Patient Pain Free? Yes SASHA - Nurse 1 - General Ulcer Measurement Start: 11/03/23 10:46 Freq: Status: Active Protocol: Activity Type Activity Date Activity User E-sign Co-sign Detail Recorded Client Recorded Date Recorded By Document 11/03/23 10:46 KW [email or web address] 11/03/23 10:48 KW 11/03/23 10:46 Wound Center Nurse 1 #6 R DORSAL foot -Texture (Yuliet-wound Skin Appearance) Assessed -Moisture (Yuliet-wound Skin Appearance) Assessed -Color (Yuliet-wound Skin Appearance) Assessed -Temperature (Yuliet-wound Skin No Abnormality Appearance) (Pt Warm) -Tenderness on Palpation (Yuliet-wound No Skin Appearance) -Ulcer Cleansing Soap and Water -Foul Odor after Cleansing No -Anesthetic Used 4% Lidocaine Solution #3 R Med Foot -Texture (Yuliet-wound Skin Appearance) Assessed -Moisture (Yuliet-wound Skin Appearance) Assessed -Color (Yuliet-wound Skin Appearance) Assessed -Temperature (Yuliet-wound Skin No Abnormality Appearance) (Pt Warm) -Tenderness on Palpation (Yuliet-wound No Skin Appearance) -Ulcer Cleansing Soap and Water -Foul Odor after Cleansing No -Anesthetic Used 5% Lidocaine Gel #2 R Lat foot -Texture (Yuliet-wound Skin Appearance) Assessed -Moisture (Yuliet-wound Skin Appearance) Assessed -Color (Yuliet-wound Skin Appearance) Assessed -Temperature (Yuliet-wound Skin No Abnormality Appearance) (Pt Warm) -Ulcer Cleansing Rinsed/ Irrigated with Saline -Anesthetic Used 4% Lidocaine Solution 7-right plantar foot -Texture (Yuliet-wound Skin Appearance) Assessed -Moisture (Yuliet-wound Skin Appearance) Assessed -Color (Yuliet-wound Skin Appearance) Assessed -Ulcer Cleansing Soap and Water -Foul Odor after Cleansing No -Anesthetic Used 4% Lidocaine Solution #5 L Med foot -Texture (Yuliet-wound Skin Appearance) Assessed -Moisture (Yuliet-wound Skin Appearance) Assessed -Color (Yuliet-wound Skin Appearance) Assessed -Temperature (Yuliet-wound Skin No Abnormality Appearance) (Pt Warm) -Tenderness on Palpation (Yuliet-wound No Skin Appearance) -Ulcer Cleansing Soap and Water -Anesthetic Used 4% Lidocaine Solution Right Calf (cm) 33 Point of measurement (cm from the medial 24 instep) Left Calf (cm) 36.5 Left Ankle (cm) 24 WC - Nurse 2 - General Ulcer CM Notes Start: 11/03/23 10:46 Freq: Status: Active Protocol: Activity Type Activity Date Activity User E-sign Co-sign Detail Recorded Client Recorded Date Recorded By Document 11/03/23 11:14 Laptop 11/03/23 11:20 11/03/23 11:14 Wound Center Nurse 2 #6 R DORSAL foot -Correct Patient No -Correct Side, Site, Position No -Correct Procedure No -Procedure Performed No #3 R Med Foot -Correct Patient No -Correct Side, Site, Position No -Correct Procedure No -Procedure Performed No #2 R Lat foot -Correct Patient No -Correct Side, Site, Position No -Correct Procedure No -Procedure Performed No -Post Debridement (cm) - Length 0 -Post Debridement (cm) - Width 0 -Post Debridement (cm) - Depth 0 -Total Square (Post) (cm) 0 -Area of Debridement (cm) - Length 0 -Area of Debridement (cm) - Width 0 -Total Square (Area) (cm) 0 -Wound/Ulcer Outcome Healed- Epithelialized 7-right plantar foot -Time 11:16 -Correct Patient Yes -Correct Side, Site, Position Yes -Correct Procedure Yes -Procedure Performed Yes -Type of Procedure Debridement -Clinical Debridement Subcutaneous -Tissue Removed Subcutaneous -Post Debridement (cm) - Length 1.0 -Post Debridement (cm) - Width 0.4 -Post Debridement (cm) - Depth 0.2 -Total Square (Post) (cm) 0.40 -Area of Debridement (cm) - Length 1.0 -Area of Debridement (cm) - Width 0.4 -Total Square (Area) (cm) 0.40 -Tunneling No -Undermining/Tunneling No -Circular Undermining No -Wound/Ulcer Outcome Not Healed -Ulcer Cleansing Rinsed/ Irrigated with Saline -Foul Odor after Cleansing No -Bioengineered Tissue No -Bleeding Controlled with Pressure -Treatment Response Procedure Tolerated Well -Offloading No -Debridement - Subq, 1st 20sq cm No #5 L Med foot -Time 11:18 -Correct Patient Yes -Correct Side, Site, Position Yes -Correct Procedure Yes -Procedure Performed Yes -Type of Procedure Debridement -Clinical Debridement Subcutaneous -Tissue Removed Subcutaneous -Post Debridement (cm) - Length 0.5 -Post Debridement (cm) - Width 0.5 -Post Debridement (cm) - Depth 0.1 -Total Square (Post) (cm) 0.25 -Area of Debridement (cm) - Length 0.5 -Area of Debridement (cm) - Width 0.5 -Total Square (Area) (cm) 0.25 -Tunneling No -Undermining/Tunneling No -Circular Undermining No -Wound/Ulcer Outcome Not Healed -Ulcer Cleansing Rinsed/ Irrigated with Saline -Foul Odor after Cleansing No -Bioengineered Tissue No -Bleeding Controlled with Pressure -Treatment Response Procedure Tolerated Well -Offloading No -Debridement - Subq, 1st 20sq cm Yes Pain Scale: 0-10 Numeric Is Patient Pain Free? No right foot -Description Crushing -Intensity 2 -Duration (hours) Acute -Pain Behavior No Change in Behavior -Pain Aggravating Factors Debridement -Alleviating Factors/Interventions None Assessment/Plan Assessment/Plan (1) Venous insufficiency (chronic) (peripheral): CODE(S): I87.2 - Venous insufficiency (chronic) (peripheral) PLAN: Exam performed Arterial and venous studies reviewed Patient on Coumadin Patient underwent recent venous procedure per Dr. Arvizu. This will likely help with patient's edema and wound healing moving forward. Today bilateral foot and ankle wounds were debrided excisionally down to including level of subcutaneous tissue of all nonviable tissue using 5mm dermal curette. No anesthesia due to neuropathy. Hemostasis with compression. Patient tolerated procedure well. Pre and postdebridement measurements documented nursing notes. No recurrent infection. Will plan for daily Betadine wet-to-dry dressing changes with overlying dry sterile dressing and Tubigrip. This to be performed by group home. No weightbearing restrictions at current. This may change pending patient's healing status. Due to deformity advanced age, will consider BKA if there is any development of a life or limb threatening infection. At current we will continue with local wound care. 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
[2023-11-10 10:36] VITALS: BP 94/27; PULSE 70; RESP 18; TEMP 35.8
[2023-11-10 11:23] VITALS: BP 122/60
--- NOTE | 2023-11-10 11:24 | PCM.WC.PN ---
History of Present Illness Date of Service: 11/10/23 Chief Complaint: Nonhealing bilateral lower extremity ulcers History of Wound: Mr Wilson is an 82-year-old who was brought in here from his [facility] due to nonhealing bilateral lower extremity ulcers. Has had recurrent ulcerations for over 10 years with most recent episode being more severe late last year. 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 No changes today. Patient denies any fever chills nausea vomiting chest pain calf pain at current. Patient resides in care home facility. Patient receives daily Betadine DSD bilaterally. Patient has a minimally ambulatory status due to deformity and weakness. Patient states that he does ambulate assisted by walker within the confines of his room to the bathroom. States he does this on a daily basis. No other complaints. Objective Data Objective Data Vital Signs: Vital Signs Temp Pulse Resp BP O2 Del Method 96.5 F L 70 18 94/27 L Room Air 11/10/23 10:36 11/10/23 10:36 11/10/23 10:36 11/10/23 10:36 11/10/23 10:36 Oxygen Delivery Method Room Air Physical Exam Narrative Vascular: Dorsalis pedis posterior tibial pulses palpable to bilateral lower extremity. Atrophic skin changes such as shiny taut appearance noted with absent digital hair growth. Patient does have +1 pitting edema to bilateral lower extremity with hemosiderin deposits noted. Neurologic: Light touch protective sensation diminished bilateral feet. Dermatologic: Healed medial right ankle and lateral/dorsal foot wound. Significantly improved right plantar foot wound. Significantly improved left medial ankle wound. All wounds demonstrate clean granular bases with no deep probing undermining or signs of infection. Toenails x10 dystrophic, painful and elongated with subungual debris. 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 This appears to contribute to wound formation and poor ambulatory status patient. Patient has diffuse muscular weakness 4 out of 5 to bilateral lower extremity compartments. On the left lower extremity patient has an equinus contracture to the hindfoot. Debridement Note Debridement Note Post-Debridement Measurements and Additional Note: Post-Debridement Measurements/Treatment SASHA - Nurse 1 - General Ulcer Assessment Start: 11/03/23 10:46 Freq: Status: Active Protocol: MARTA Activity Type Activity Date Activity User E-sign Co-sign Detail Recorded Client Recorded Date Recorded By Document 11/03/23 10:46 KW Desktop 11/03/23 10:48 KW Document 11/10/23 10:36 [id number] [id number] 11/10/23 11:03 KW 11/03/23 11/10/23 10:46 10:36 WC - Today's Visit Information Type of service Follow-up Visit Follow-up Visit (Physician/MUSIC THERAPY SPECIALIST (Physician/MUSIC THERAPY SPECIALIST ) ) Arrival Mode Wheelchair Wheelchair Accompanied by SISTER Patient Identification Verified (Name & Yes Yes ) Vital Signs Temperature (97.8 F-99.1 F) 96.5 F L Temperature Source Temporal Pulse Rate (60-100) 97 70 Pulse Location Monitor Monitor Respiratory Rate (12-18) 18 18 Respiratory rate source Observation Observation Oxygen Delivery Method Room Air Room Air Blood Pressure (90/60-120/80) 99/61 94/27 L Blood Pressure Mean (mm Hg) 73 49 Source Monitor Monitor Position Semi-Fowlers Sitting Blood Pressure Location Left Arm Left Arm History Since Last Visit- (Skip if this is Patient's initial visit) Have you changed medications since your No No last visit? Any new allergies or adverse reactions No No Had a fall/change in ADL's that may No No increase risk of falls Signs or symptoms of abuse and/or No No neglect since last visit Have you been in the hospital since your No No last visit? Has dressing in place as prescribed Yes Yes Has compression in place as prescribed Yes Yes Has offloadiing in place as prescribed No Yes Experienced any changes in pain level or No No management Left Footwear Surgical Shoe Wedge Shoe with pressure relief insole Right Footwear Wedge Shoe Wedge Shoe Pain Scale: 0-10 Numeric Is Patient Pain Free? Yes Yes SASHA - Nurse 1 - General Ulcer Measurement Start: 11/03/23 10:46 Freq: Status: Active Protocol: Activity Type Activity Date Activity User E-sign Co-sign Detail Recorded Client Recorded Date Recorded By Document 11/03/23 10:46 KW Desktop 11/03/23 10:48 KW Document 11/10/23 10:36 KW [id number] 11/10/23 11:03 KW 11/03/23 11/10/23 10:46 10:36 Wound Center Nurse 1 #6 R DORSAL foot -Texture (Yuliet-wound Skin Appearance) Assessed -Moisture (Yuliet-wound Skin Appearance) Assessed -Color (Yuliet-wound Skin Appearance) Assessed -Temperature (Yuliet-wound Skin No Abnormality Appearance) (Pt Warm) -Tenderness on Palpation (Yuliet-wound No Skin Appearance) -Ulcer Cleansing Soap and Water -Foul Odor after Cleansing No -Anesthetic Used 4% Lidocaine Solution #3 R Med Foot -Texture (Yuliet-wound Skin Appearance) Assessed -Moisture (Yuliet-wound Skin Appearance) Assessed -Color (Yuliet-wound Skin Appearance) Assessed -Temperature (Yuliet-wound Skin No Abnormality Appearance) (Pt Warm) -Tenderness on Palpation (Yuliet-wound No Skin Appearance) -Ulcer Cleansing Soap and Water -Foul Odor after Cleansing No -Anesthetic Used 5% Lidocaine Gel #2 R Lat foot -Texture (Yuliet-wound Skin Appearance) Assessed -Moisture (Yuliet-wound Skin Appearance) Assessed -Color (Yuliet-wound Skin Appearance) Assessed -Temperature (Yuliet-wound Skin No Abnormality Appearance) (Pt Warm) -Ulcer Cleansing Rinsed/ Irrigated with Saline -Anesthetic Used 4% Lidocaine Solution 7-right plantar foot -Current Size (cm) - Length 0.9 -Current Size (cm) - Width 0.4 -Current Size (cm) - Depth 0.3 -Total Square Cm 0.36 -Exudate Amt Small -Exudate Type Serosanguineous -Wound Margin Distinct, Outline Attached -Granulation Amt Large (67-100%) -Granulation Quality Durand -Necrosis Amt Small (1-33%) -Necrotic Tissue Type Adherent Slough -Texture (Yuliet-wound Skin Appearance) Assessed Assessed,Callus -Moisture (Yuliet-wound Skin Appearance) Assessed Assessed -Color (Yuliet-wound Skin Appearance) Assessed Assessed -Temperature (Yuliet-wound Skin No Abnormality Appearance) (Pt Warm) -Tenderness on Palpation (Yuliet-wound No Skin Appearance) -Ulcer Cleansing Soap and Water Soap and Water -Foul Odor after Cleansing No No -Anesthetic Used 4% Lidocaine 5% Lidocaine Solution Gel #5 L Med foot -Current Size (cm) - Length 0.5 -Current Size (cm) - Width 0.5 -Current Size (cm) - Depth 0.2 -Total Square Cm 0.25 -Exudate Amt Small -Exudate Type Serosanguineous -Wound Margin Distinct, Outline Attached -Necrosis Amt Large (67-100%) -Necrotic Tissue Type Adherent Slough -Texture (Yuliet-wound Skin Appearance) Assessed Assessed -Moisture (Yuliet-wound Skin Appearance) Assessed Assessed -Color (Yuliet-wound Skin Appearance) Assessed Assessed -Temperature (Yuliet-wound Skin No Abnormality No Abnormality Appearance) (Pt Warm) (Pt Warm) -Tenderness on Palpation (Yuliet-wound No No Skin Appearance) -Ulcer Cleansing Soap and Water Soap and Water -Anesthetic Used 4% Lidocaine 5% Lidocaine Solution Gel Right Calf (cm) 33 Point of measurement (cm from the medial 24 instep) Left Calf (cm) 36.5 Left Ankle (cm) 24 WC - Nurse 2 - General Ulcer CM Notes Start: 11/03/23 10:46 Freq: Status: Active Protocol: Activity Type Activity Date Activity User E-sign Co-sign Detail Recorded Client Recorded Date Recorded By Document 11/03/23 11:14 Laptop 11/03/23 11:20 Emme [email or web address] Document 11/10/23 11:12 DS [id number] 11/10/23 11:15 DS 11/03/23 11/10/23 11:14 11:12 Wound Center Nurse 2 #6 R DORSAL foot -Correct Patient No -Correct Side, Site, Position No -Correct Procedure No -Procedure Performed No #3 R Med Foot -Correct Patient No -Correct Side, Site, Position No -Correct Procedure No -Procedure Performed No #2 R Lat foot -Correct Patient No -Correct Side, Site, Position No -Correct Procedure No -Procedure Performed No -Post Debridement (cm) - Length 0 -Post Debridement (cm) - Width 0 -Post Debridement (cm) - Depth 0 -Total Square (Post) (cm) 0 -Area of Debridement (cm) - Length 0 -Area of Debridement (cm) - Width 0 -Total Square (Area) (cm) 0 -Wound/Ulcer Outcome Healed- Epithelialized 7-right plantar foot -Time 11:16 11:14 -Correct Patient Yes Yes -Correct Side, Site, Position Yes Yes -Correct Procedure Yes Yes -Procedure Performed Yes Yes -Type of Procedure Debridement Debridement -Clinical Debridement Subcutaneous Subcutaneous -Tissue Removed Subcutaneous Subcutaneous -Post Debridement (cm) - Length 1.0 2.1 -Post Debridement (cm) - Width 0.4 0.8 -Post Debridement (cm) - Depth 0.2 0.4 -Total Square (Post) (cm) 0.40 1.68 -Area of Debridement (cm) - Length 1.0 2.1 -Area of Debridement (cm) - Width 0.4 0.8 -Total Square (Area) (cm) 0.40 1.68 -Tunneling No No -Undermining/Tunneling No No -Circular Undermining No No -Wound/Ulcer Outcome Not Healed Not Healed -Ulcer Cleansing Rinsed/ Irrigated with Saline -Foul Odor after Cleansing No -Bioengineered Tissue No -Bleeding Controlled with Pressure Pressure -Treatment Response Procedure Procedure Tolerated Well Tolerated Well -Offloading No -Debridement - Subq, 1st 20sq cm No Yes #5 L Med foot -Time 11:18 11:14 -Correct Patient Yes Yes -Correct Side, Site, Position Yes Yes -Correct Procedure Yes Yes -Procedure Performed Yes Yes -Type of Procedure Debridement Debridement -Clinical Debridement Subcutaneous Subcutaneous -Tissue Removed Subcutaneous Subcutaneous -Post Debridement (cm) - Length 0.5 0.2 -Post Debridement (cm) - Width 0.5 0.2 -Post Debridement (cm) - Depth 0.1 0.2 -Total Square (Post) (cm) 0.25 0.04 -Area of Debridement (cm) - Length 0.5 0.2 -Area of Debridement (cm) - Width 0.5 0.2 -Total Square (Area) (cm) 0.25 0.04 -Tunneling No No -Undermining/Tunneling No No -Circular Undermining No -Wound/Ulcer Outcome Not Healed Not Healed -Ulcer Cleansing Rinsed/ Rinsed/ Irrigated with Irrigated with Saline Saline -Foul Odor after Cleansing No -Bioengineered Tissue No -Bleeding Controlled with Pressure Pressure -Treatment Response Procedure Procedure Tolerated Well Tolerated Well -Offloading No -Debridement - Subq, 1st 20sq cm Yes No Pain Scale: 0-10 Numeric Is Patient Pain Free? No Yes right foot -Description Crushing -Intensity 2 -Duration (hours) Acute -Pain Behavior No Change in Behavior -Pain Aggravating Factors Debridement -Alleviating Factors/Interventions None WC - Nurse 3 - General Ulcer D/C NN Start: 11/03/23 10:46 Freq: Status: Active Protocol: Activity Type Activity Date Activity User E-sign Co-sign Detail Recorded Client Recorded Date Recorded By Document 11/03/23 11:26 RB Desktop 11/03/23 11:29 RB 11/03/23 11:26 Wound Care Center Nurse 3 7-right plantar foot -Other Dressing betadine gauze -Primary Dressing Covered/Secured with Dry Gauze & Roll Gauze, Secured with Tape #5 L Med foot -Other Dressing betadine gauze -Primary Dressing Covered/Secured with Dry Gauze & Roll Gauze, Secured with Tape bilateral -Other bridgette bilateral Treatment Response Procedure Tolerated Well Pain Scale: 0-10 Numeric Is Patient Pain Free? Yes WC - Visit Discharge Discharge Condition Stable Ambulatory Status Wheelchair Transportation Private Auto Medication Reconcilliation completed & No provided to patient/care provider Clinical Summary of Care Provided Yes Assessment/Plan Assessment/Plan (1) Venous insufficiency (chronic) (peripheral): CODE(S): I87.2 - Venous insufficiency (chronic) (peripheral) PLAN: Exam performed Arterial and venous studies reviewed Patient on Coumadin Patient underwent recent venous procedure per Dr. Arvizu. This will likely help with patient's edema and wound healing moving forward. Today bilateral foot and ankle wounds were debrided excisionally down to including level of subcutaneous tissue of all nonviable tissue using 5mm dermal curette. No anesthesia due to neuropathy. Hemostasis with compression. Patient tolerated procedure well. Pre and postdebridement measurements documented nursing notes. No recurrent infection. Will plan for daily Betadine wet-to-dry dressing changes with overlying dry sterile dressing and Tubigrip. This to be performed by [facility]. No weightbearing restrictions at current. This may change pending patient's healing status. Due to deformity advanced age, will consider BKA if there is any development of a life or limb threatening infection. At current we will continue with local wound care. Toenails x10 were mechanically debrided in length and thickness using sterile nail nippers without incident (2) Other specified peripheral vascular diseases: CODE(S): I73.89 - Other specified peripheral vascular diseases (3) Cellulitis of right lower limb: CODE(S): L03.115 - Cellulitis of right lower limb (4) Non-pressure 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 foot with fat layer exposed: CODE(S): L97.512 - Non-pressure 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 foot with fat layer exposed (5) Non-pressure chronic ulcer of other part of left foot with fat layer exposed: CODE(S): L97.522 - Non-pressure chronic ulcer of other part of left foot with fat layer exposed (6) Tinea unguium: CODE(S): B35.1 - Tinea unguium (7) Pain in right toe(s): CODE(S): M79.674 - Pain in right toe(s) (8) Pain in left toe(s): CODE(S): M79.675 - Pain in left toe(s)
[2023-11-24 10:59] VITALS: BP 112/66; PULSE 58; RESP 18; TEMP 36.6
--- NOTE | 2023-11-24 11:22 | PCM.WC.PN ---
History of Present Illness Date of Service: 11/24/23 Chief Complaint: Nonhealing bilateral lower extremity ulcers History of Wound: Mr Wilson is an 82-year-old who was brought in here from his intermediate due to nonhealing bilateral lower extremity ulcers. Has had recurrent ulcerations for over 10 years with most recent episode being more severe late last year. 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 No changes today. Patient denies any fever chills nausea vomiting chest pain calf pain at current. Patient resides in [facility] facility. Patient receives daily Betadine DSD bilaterally. Patient has a minimally ambulatory status due to deformity and weakness. Patient states that he does ambulate assisted by walker within the confines of his room to the bathroom. States he does this on a daily basis. No other complaints. Objective Data Objective Data Vital Signs: Vital Signs Temp Pulse Resp BP O2 Del Method 97.8 F 58 L 18 112/66 Room Air 11/24/23 10:59 11/24/23 10:59 11/24/23 10:59 11/24/23 10:59 11/10/23 10:36 Oxygen Delivery Method Room Air Physical Exam Narrative Vascular: Dorsalis pedis posterior tibial pulses palpable to bilateral lower extremity. Atrophic skin changes such as shiny taut appearance noted with absent digital hair growth. Patient does have +1 pitting edema to bilateral lower extremity with hemosiderin deposits noted. Neurologic: Light touch protective sensation diminished bilateral feet. Dermatologic: Healed medial right ankle and lateral/dorsal foot wound. Significantly improved right plantar foot wound. Significantly improved left medial ankle wound. All wounds demonstrate clean granular bases with no deep probing undermining or signs of infection. Toenails x10 dystrophic, painful and elongated with subungual debris. 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 This appears to contribute to wound formation and poor ambulatory status patient. Patient has diffuse muscular weakness 4 out of 5 to bilateral lower extremity compartments. On the left lower extremity patient has an equinus contracture to the hindfoot. Debridement Note Debridement Note Post-Debridement Measurements and Additional Note: Post-Debridement Measurements/Treatment - Nurse 1 - General Ulcer Assessment Start: 11/03/23 10:46 Freq: Status: Active Protocol: MARTA Activity Type Activity Date Activity User E-sign Co-sign Detail Recorded Client Recorded Date Recorded By Document 11/03/23 10:46 KW Desktop 11/03/23 10:48 KW Document 11/10/23 10:36 KW [id number] 11/10/23 11:03 KW Document 11/24/23 10:59 RB wound center 11/24/23 11:01 RB 11/03/23 11/10/23 11/24/23 10:46 10:36 10:59 - Today's Visit Information Type of service Follow-up Visit Follow-up Visit Follow-up Visit (Physician/MARKETING COMMUNICATION MANAGER (Physician/MARKETING COMMUNICATION MANAGER (Physician/MARKETING COMMUNICATION MANAGER ) ) ) Arrival Mode Wheelchair Wheelchair Wheelchair Transfer Assistance Manual Accompanied by SISTER Patient Identification Verified (Name & Yes Yes Yes ) Patient Requires Transmission-Based No Precautions Vital Signs Temperature (97.8 F-99.1 F) 96.5 F L 97.8 F Temperature Source Temporal Temporal Pulse Rate (60-100) 97 70 58 L Pulse Location Monitor Monitor Monitor Respiratory Rate (12-18) 18 18 18 Respiratory rate source Observation Observation Observation Oxygen Delivery Method Room Air Room Air Blood Pressure (90/60-120/80) 99/61 94/27 L 112/66 Blood Pressure Mean (mm Hg) 73 49 81 Source Monitor Monitor Monitor Position Semi-Fowlers Sitting Semi-Fowlers Blood Pressure Location Left Arm Left Arm Left Arm History Since Last Visit- (Skip if this is Patient's initial visit) Have you changed medications since your No No No last visit? Any new allergies or adverse reactions No No No Had a fall/change in ADL's that may No No No increase risk of falls Signs or symptoms of abuse and/or No No No neglect since last visit Have you been in the hospital since your No No No last visit? Has dressing in place as prescribed Yes Yes Yes Has compression in place as prescribed Yes Yes Yes Has offloadiing in place as prescribed No Yes No Experienced any changes in pain level or No No No management Left Footwear Surgical Shoe Wedge Shoe with pressure relief insole Right Footwear Wedge Shoe Wedge Shoe Pain Scale: 0-10 Numeric Is Patient Pain Free? Yes Yes Yes WC - Nurse 1 - General Ulcer Measurement Start: 11/03/23 10:46 Freq: Status: Active Protocol: Activity Type Activity Date Activity User E-sign Co-sign Detail Recorded Client Recorded Date Recorded By Document 11/03/23 10:46 KW Desktop 11/03/23 10:48 KW Document 11/10/23 10:36 KW [id number] 11/10/23 11:03 KW Document 11/24/23 10:59 RB wound center 11/24/23 11:01 RB 11/03/23 11/10/23 11/24/23 10:46 10:36 10:59 Wound Center Nurse 1 #6 R DORSAL foot -Texture (Yuliet-wound Skin Appearance) Assessed -Moisture (Yuliet-wound Skin Appearance) Assessed -Color (Yuliet-wound Skin Appearance) Assessed -Temperature (Yuliet-wound Skin No Abnormality Appearance) (Pt Warm) -Tenderness on Palpation (Yuliet-wound No Skin Appearance) -Ulcer Cleansing Soap and Water -Foul Odor after Cleansing No -Anesthetic Used 4% Lidocaine Solution #3 R Med Foot -Texture (Yuliet-wound Skin Appearance) Assessed -Moisture (Yuliet-wound Skin Appearance) Assessed -Color (Yuliet-wound Skin Appearance) Assessed -Temperature (Yuliet-wound Skin No Abnormality Appearance) (Pt Warm) -Tenderness on Palpation (Yuliet-wound No Skin Appearance) -Ulcer Cleansing Soap and Water -Foul Odor after Cleansing No -Anesthetic Used 5% Lidocaine Gel #2 R Lat foot -Texture (Yuliet-wound Skin Appearance) Assessed -Moisture (Yuliet-wound Skin Appearance) Assessed -Color (Yuliet-wound Skin Appearance) Assessed -Temperature (Yuliet-wound Skin No Abnormality Appearance) (Pt Warm) -Ulcer Cleansing Rinsed/ Irrigated with Saline -Anesthetic Used 4% Lidocaine Solution 7-right plantar foot -Combined with other wound No -Current Size (cm) - Length 0.9 0.1 -Current Size (cm) - Width 0.4 0.1 -Current Size (cm) - Depth 0.3 0.1 -Total Square Cm 0.36 0.01 -Tunneling No -Undermining/Tunneling No -Circular Undermining No -Exudate Amt Small Medium -Exudate Type Serosanguineous Serosanguineous -Wound Margin Distinct, Distinct, Outline Outline Attached Attached -Granulation Amt Large (67-100%) Medium (34-66%) -Granulation Quality Ronan Ronan -Slough/Fibrin Yes -Necrosis Amt Small (1-33%) Medium (34-66%) -Necrotic Tissue Type Adherent Slough Adherent Slough -Structure Exposed N/A -Texture (Yuliet-wound Skin Appearance) Assessed Assessed,Callus Assessed -Moisture (Yuliet-wound Skin Appearance) Assessed Assessed Dry/Scaly -Color (Yuliet-wound Skin Appearance) Assessed Assessed Assessed -Temperature (Yuliet-wound Skin No Abnormality No Abnormality Appearance) (Pt Warm) (Pt Warm) -Tenderness on Palpation (Yuliet-wound No No Skin Appearance) -Ulcer Cleansing Soap and Water Soap and Water Wound Cleanser -Foul Odor after Cleansing No No No -Anesthetic Used 4% Lidocaine 5% Lidocaine 4% Lidocaine Solution Gel Solution #5 L Med foot -Combined with other wound No -Current Size (cm) - Length 0.5 0.1 -Current Size (cm) - Width 0.5 0.1 -Current Size (cm) - Depth 0.2 0.1 -Total Square Cm 0.25 0.01 -Tunneling No -Undermining/Tunneling No -Circular Undermining No -Exudate Amt Small Medium -Exudate Type Serosanguineous Serosanguineous -Wound Margin Distinct, Distinct, Outline Outline Attached Attached -Granulation Amt Medium (34-66%) -Granulation Quality Ronan -Slough/Fibrin Yes -Necrosis Amt Large (67-100%) Medium (34-66%) -Necrotic Tissue Type Adherent Slough Adherent Slough -Structure Exposed N/A -Texture (Yuliet-wound Skin Appearance) Assessed Assessed Assessed -Moisture (Yuliet-wound Skin Appearance) Assessed Assessed Dry/Scaly -Color (Yuliet-wound Skin Appearance) Assessed Assessed Assessed -Temperature (Yuliet-wound Skin No Abnormality No Abnormality No Abnormality Appearance) (Pt Warm) (Pt Warm) (Pt Warm) -Tenderness on Palpation (Yuliet-wound No No No Skin Appearance) -Ulcer Cleansing Soap and Water Soap and Water Wound Cleanser -Foul Odor after Cleansing No -Anesthetic Used 4% Lidocaine 5% Lidocaine 4% Lidocaine Solution Gel Solution Lower Limb Edema Present Yes Right Calf (cm) 33 32.5 Point of measurement (cm from the medial 24 instep) Right Ankle (cm) 24.2 Left Calf (cm) 36.5 32.5 Left Ankle (cm) 24 26.6 WC - Nurse 2 - General Ulcer CM Notes Start: 11/03/23 10:46 Freq: Status: Active Protocol: Activity Type Activity Date Activity User E-sign Co-sign Detail Recorded Client Recorded Date Recorded By Document 11/03/23 11:14 Laptop 11/03/23 11:20 JF Document 11/10/23 11:12 DS [id number] 11/10/23 11:15 DS 11/03/23 11/10/23 11:14 11:12 Wound Center Nurse 2 #6 R DORSAL foot -Correct Patient No -Correct Side, Site, Position No -Correct Procedure No -Procedure Performed No #3 R Med Foot -Correct Patient No -Correct Side, Site, Position No -Correct Procedure No -Procedure Performed No #2 R Lat foot -Correct Patient No -Correct Side, Site, Position No -Correct Procedure No -Procedure Performed No -Post Debridement (cm) - Length 0 -Post Debridement (cm) - Width 0 -Post Debridement (cm) - Depth 0 -Total Square (Post) (cm) 0 -Area of Debridement (cm) - Length 0 -Area of Debridement (cm) - Width 0 -Total Square (Area) (cm) 0 -Wound/Ulcer Outcome Healed- Epithelialized 7-right plantar foot -Time 11:16 11:14 -Correct Patient Yes Yes -Correct Side, Site, Position Yes Yes -Correct Procedure Yes Yes -Procedure Performed Yes Yes -Type of Procedure Debridement Debridement -Clinical Debridement Subcutaneous Subcutaneous -Tissue Removed Subcutaneous Subcutaneous -Post Debridement (cm) - Length 1.0 2.1 -Post Debridement (cm) - Width 0.4 0.8 -Post Debridement (cm) - Depth 0.2 0.4 -Total Square (Post) (cm) 0.40 1.68 -Area of Debridement (cm) - Length 1.0 2.1 -Area of Debridement (cm) - Width 0.4 0.8 -Total Square (Area) (cm) 0.40 1.68 -Tunneling No No -Undermining/Tunneling No No -Circular Undermining No No -Wound/Ulcer Outcome Not Healed Not Healed -Ulcer Cleansing Rinsed/ Irrigated with Saline -Foul Odor after Cleansing No -Bioengineered Tissue No -Bleeding Controlled with Pressure Pressure -Treatment Response Procedure Procedure Tolerated Well Tolerated Well -Offloading No -Debridement - Subq, 1st 20sq cm No Yes #5 L Med foot -Time 11:18 11:14 -Correct Patient Yes Yes -Correct Side, Site, Position Yes Yes -Correct Procedure Yes Yes -Procedure Performed Yes Yes -Type of Procedure Debridement Debridement -Clinical Debridement Subcutaneous Subcutaneous -Tissue Removed Subcutaneous Subcutaneous -Post Debridement (cm) - Length 0.5 0.2 -Post Debridement (cm) - Width 0.5 0.2 -Post Debridement (cm) - Depth 0.1 0.2 -Total Square (Post) (cm) 0.25 0.04 -Area of Debridement (cm) - Length 0.5 0.2 -Area of Debridement (cm) - Width 0.5 0.2 -Total Square (Area) (cm) 0.25 0.04 -Tunneling No No -Undermining/Tunneling No No -Circular Undermining No -Wound/Ulcer Outcome Not Healed Not Healed -Ulcer Cleansing Rinsed/ Rinsed/ Irrigated with Irrigated with Saline Saline -Foul Odor after Cleansing No -Bioengineered Tissue No -Bleeding Controlled with Pressure Pressure -Treatment Response Procedure Procedure Tolerated Well Tolerated Well -Offloading No -Debridement - Subq, 1st 20sq cm Yes No Pain Scale: 0-10 Numeric Is Patient Pain Free? No Yes right foot -Description Crushing -Intensity 2 -Duration (hours) Acute -Pain Behavior No Change in Behavior -Pain Aggravating Factors Debridement -Alleviating Factors/Interventions None WC - Nurse 3 - General Ulcer D/C NN Start: 11/03/23 10:46 Freq: Status: Active Protocol: Activity Type Activity Date Activity User E-sign Co-sign Detail Recorded Client Recorded Date Recorded By Document 11/03/23 11:26 RB Desktop 11/03/23 11:29 RB Document 11/10/23 11:23 KW [id number] 11/10/23 11:32 KW Edit Result 11/10/23 11:23 KW (1) [id number] 11/10/23 11:52 RB (1) Blood Pressure (90/60-120/80) => 122/60 H Blood Pressure Mean (mm Hg) => 80 Source => Manual Position => Semi-Fowlers Blood Pressure Location => Left Arm 11/03/23 11/10/23 11:26 11:23 Wound Care Center Nurse 3 7-right plantar foot -Ulcer Cleansing BETADINE -Other Dressing betadine gauze -Primary Dressing Covered/Secured with Dry Gauze & Dry Gauze,Dry Roll Gauze, Gauze & Roll Secured with Gauze,Secured Tape with Tape #5 L Med foot -Ulcer Cleansing BETADINE -Other Dressing betadine gauze -Primary Dressing Covered/Secured with Dry Gauze & Dry Gauze,Dry Roll Gauze, Gauze & Roll Secured with Gauze,Secured Tape with Tape bilateral -Other edie bilateral EDIE Treatment Response Procedure Procedure Tolerated Well Tolerated Well Vital Signs Blood Pressure (90/60-120/80) 122/60 H Blood Pressure Mean (mm Hg) 80 Source Manual Position Semi-Fowlers Blood Pressure Location Left Arm Pain Scale: 0-10 Numeric Is Patient Pain Free? Yes Yes WC - Visit Discharge Discharge Condition Stable Stable Ambulatory Status Wheelchair Wheelchair Transportation Private Auto Private Auto Medication Reconcilliation completed & No No provided to patient/care provider Clinical Summary of Care Provided Yes Yes Assessment/Plan Assessment/Plan (1) Venous insufficiency (chronic) (peripheral): CODE(S): I87.2 - Venous insufficiency (chronic) (peripheral) PLAN: Exam performed Arterial and venous studies reviewed Patient on Coumadin Patient underwent recent venous procedure per Dr. Arvizu. This will likely help with patient's edema and wound healing moving forward. Today bilateral foot and ankle wounds were debrided excisionally down to including level of subcutaneous tissue of all nonviable tissue using 5mm dermal curette. No anesthesia due to neuropathy. Hemostasis with compression. Patient tolerated procedure well. Pre and postdebridement measurements documented nursing notes. No recurrent infection. Will plan for daily Betadine wet-to-dry dressing changes with overlying dry sterile dressing and Tubigrip. This to be performed by intermediate. No weightbearing restrictions at current. This may change pending patient's healing status. Due to deformity advanced age, will consider BKA if there is any development of a life or limb threatening infection. At current we will continue with local wound care. Toenails x10 were mechanically debrided in length and thickness using sterile nail nippers without incident (2) Other specified peripheral vascular diseases: CODE(S): I73.89 - Other specified peripheral vascular diseases (3) Cellulitis of right lower limb: CODE(S): L03.115 - Cellulitis of right lower limb (4) Non-pressure 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 foot with fat layer exposed: CODE(S): L97.512 - Non-pressure 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 foot with fat layer exposed (5) Non-pressure chronic ulcer of other part of left foot with fat layer exposed: CODE(S): L97.522 - Non-pressure chronic ulcer of other part of left foot with fat layer exposed (6) Tinea unguium: CODE(S): B35.1 - Tinea unguium (7) Pain in right toe(s): CODE(S): M79.674 - Pain in right toe(s) (8) Pain in left toe(s): CODE(S): M79.675 - Pain in left toe(s)
== END 2023-11-27 23:59 | disposition home or self-care (01) ==
LOC: WC 10:30
PROVIDERS: PCP Family Medicine; Referring Provider Family Medicine; Visit Provider Podiatrist
DX: L97.512 Non-pressure 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 foot with fat layer exposed (principal); L97.522 Non-pressure chronic ulcer of other part of left foot with fat layer exposed; G62.9 Polyneuropathy, unspecified; I87.2 Venous insufficiency (chronic) (peripheral); M24.561 Contracture, right knee; Q66.11 Congenital talipes calcaneovarus, right foot; R53.1 Weakness; I73.89 Other specified peripheral vascular diseases; L03.115 Cellulitis of right lower limb; B35.1 Tinea unguium; M79.674 Pain in right toe(s); M79.675 Pain in left toe(s)
CPT/HCPCS: 11042

== ENCOUNTER 2023-12-22 10:30 | Outpatient (RCR) | payer MEDICARE, BC, SELFPAY ==
[2023-11-28 01:52] VITALS: BP 124/76; PULSE 63; RESP 18; TEMP 36.2
[2023-12-01 10:48] VITALS: BP 95/62; PULSE 69; RESP 18; TEMP 35.9
--- NOTE | 2023-12-01 11:20 | PN.PCM_ITS ---
History of Present Illness Date of Service: 12/01/23 Chief Complaint: Nonhealing bilateral lower extremity ulcers History of Wound: Mr Wilson is an 82-year-old who was brought in here from his [facility] due to nonhealing bilateral lower extremity ulcers. Has had recurrent ulcerations for over 10 years with most recent episode being more severe late last year. 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 No changes today. Patient denies any fever chills nausea vomiting chest pain calf pain at current. Patient resides in alf facility. Patient receives daily Betadine DSD bilaterally. Patient has a minimally ambulatory status due to deformity and weakness. Patient states that he does ambulate assisted by walker within the confines of his room to the bathroom. States he does this on a daily basis. No other complaints. Objective Data Objective Data Vital Signs: Vital Signs Temp Pulse Resp BP O2 Del Method 96.7 F L 69 18 95/62 Room Air 12/01/23 10:48 12/01/23 10:48 12/01/23 10:48 12/01/23 10:48 12/01/23 10:48 Oxygen Delivery Method Room Air Physical Exam Narrative Vascular: Dorsalis pedis posterior tibial pulses palpable to bilateral lower extremity. Atrophic skin changes such as shiny taut appearance noted with absent digital hair growth. Patient does have +1 pitting edema to bilateral lower extremity with hemosiderin deposits noted. Neurologic: Light touch protective sensation diminished bilateral feet. Dermatologic: Healed medial right ankle and lateral/dorsal foot wound. Significantly improved right plantar foot wound. Significantly improved left medial ankle wound. All wounds demonstrate clean granular bases with no deep probing undermining or signs of infection. 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 This appears to contribute to wound formation and poor ambulatory status patient. Patient has diffuse muscular weakness 4 out of 5 to bilateral lower extremity compartments. On the left lower extremity patient has an equinus contracture to the hindfoot. Debridement Note Debridement Note Post-Debridement Measurements and Additional Note: Post-Debridement Measurements/Treatment SASHA - Nurse 1 - General Ulcer Assessment Start: 12/01/23 10:48 Freq: Status: Active Protocol: MARTA Activity Type Activity Date Activity User E-sign Co-sign Detail Recorded Client Recorded Date Recorded By Document 12/01/23 10:48 wound center 12/01/23 10:53 12/01/23 10:48 WC - Today's Visit Information Type of service Follow-up Visit (Physician/TUNNEL HEADING INSPECTOR ) Arrival Mode Wheelchair Patient Identification Verified (Name & Yes ) Vital Signs Temperature (97.8 F-99.1 F) 96.7 F L Temperature Source Temporal Pulse Rate (60-100) 69 Pulse Location Monitor Respiratory Rate (12-18) 18 Respiratory rate source Observation Oxygen Delivery Method Room Air Blood Pressure (90/60-120/80) 95/62 Blood Pressure Mean (mm Hg) 73 Source Monitor Position Sitting Blood Pressure Location Right Arm History Since Last Visit- (Skip if this is Patient's initial visit) Have you changed medications since your No last visit? Any new allergies or adverse reactions No Had a fall/change in ADL's that may No increase risk of falls Signs or symptoms of abuse and/or No neglect since last visit Have you been in the hospital since your No last visit? Has dressing in place as prescribed Yes Has compression in place as prescribed Yes Has offloadiing in place as prescribed Yes Experienced any changes in pain level or No management Left Footwear Wedge Shoe Right Footwear Wedge Shoe Pain Scale: 0-10 Numeric Is Patient Pain Free? Yes - Nurse 1 - General Ulcer Measurement Start: 12/01/23 10:48 Freq: Status: Active Protocol: Activity Type Activity Date Activity User E-sign Co-sign Detail Recorded Client Recorded Date Recorded By Document 12/01/23 10:48 wound center 12/01/23 10:53 12/01/23 10:48 Wound Center Nurse 1 7-right plantar foot -Exudate Amt Small -Exudate Type Serosanguineous -Wound Margin Distinct, Outline Attached -Granulation Amt Small (1-33%) -Granulation Quality [place] -Texture (Yuliet-wound Skin Appearance) Assessed -Moisture (Yuliet-wound Skin Appearance) Assessed,Dry/ Scaly -Color (Yuliet-wound Skin Appearance) Assessed, Erythema -Temperature (Yuliet-wound Skin No Abnormality Appearance) (Pt Warm) -Tenderness on Palpation (Yuliet-wound No Skin Appearance) -Ulcer Cleansing Soap and Water -Foul Odor after Cleansing No -Anesthetic Used 4% Lidocaine Solution #5 L Med foot -Texture (Yuliet-wound Skin Appearance) Assessed -Moisture (Yuliet-wound Skin Appearance) Assessed -Color (Yuliet-wound Skin Appearance) Assessed -Temperature (Yuliet-wound Skin No Abnormality Appearance) (Pt Warm) -Tenderness on Palpation (Yuliet-wound No Skin Appearance) -Ulcer Cleansing Soap and Water -Foul Odor after Cleansing No -Anesthetic Used 4% Lidocaine Solution Right Calf (cm) 34.5 Right Ankle (cm) 24.7 Left Calf (cm) 34.5 Left Ankle (cm) 23.2 WC - Nurse 2 - General Ulcer CM Notes Start: 12/01/23 10:48 Freq: Status: Active Protocol: Activity Type Activity Date Activity User E-sign Co-sign Detail Recorded Client Recorded Date Recorded By Document 12/01/23 11:07 JUAN RAMON [id number] 12/01/23 11:11 JUAN RAMON 12/01/23 11:07 Wound Center Nurse 2 7-right plantar foot -Time 11:07 -Correct Patient Yes -Correct Side, Site, Position Yes -Correct Procedure Yes -Procedure Performed Yes -Type of Procedure Debridement -Clinical Debridement Subcutaneous -Tissue Removed Subcutaneous -Post Debridement (cm) - Length 2.2 -Post Debridement (cm) - Width 1.5 -Post Debridement (cm) - Depth 0.2 -Total Square (Post) (cm) 3.30 -Area of Debridement (cm) - Length 2.2 -Area of Debridement (cm) - Width 1.5 -Total Square (Area) (cm) 3.30 -Tunneling No -Undermining/Tunneling No -Circular Undermining No -Wound/Ulcer Outcome Not Healed -Ulcer Cleansing Rinsed/ Irrigated with Saline -Foul Odor after Cleansing No -Bioengineered Tissue No -Bleeding Controlled with Pressure -Treatment Response Procedure Tolerated Well -Offloading Yes -Type of Offloading Surgical Shoe -Debridement - Subq, 1st 20sq cm No #5 L Med foot -Time 11:08 -Correct Patient Yes -Correct Side, Site, Position Yes -Correct Procedure Yes -Procedure Performed Yes -Type of Procedure Debridement -Clinical Debridement Subcutaneous -Tissue Removed Subcutaneous -Post Debridement (cm) - Length 0.2 -Post Debridement (cm) - Width 0.2 -Post Debridement (cm) - Depth 0.1 -Total Square (Post) (cm) 0.04 -Area of Debridement (cm) - Length 0.2 -Area of Debridement (cm) - Width 0.2 -Total Square (Area) (cm) 0.04 -Tunneling No -Undermining/Tunneling No -Circular Undermining No -Wound/Ulcer Outcome Not Healed -Ulcer Cleansing Rinsed/ Irrigated with Saline -Foul Odor after Cleansing No -Bioengineered Tissue No -Bleeding Controlled with Pressure -Treatment Response Procedure Tolerated Well -Offloading Yes -Type of Offloading Surgical Shoe -Debridement - Subq, 1st 20sq cm Yes Pain Scale: 0-10 Numeric Is Patient Pain Free? Yes Assessment/Plan Assessment/Plan (1) Venous insufficiency (chronic) (peripheral): CODE(S): I87.2 - Venous insufficiency (chronic) (peripheral) PLAN: Exam performed Arterial and venous studies reviewed Patient on Coumadin Patient underwent recent venous procedure per Dr. Arvizu. This will likely help with patient's edema and wound healing moving forward. Today bilateral foot and ankle wounds were debrided excisionally down to including level of subcutaneous tissue of all nonviable tissue using 5mm dermal curette. No anesthesia due to neuropathy. Hemostasis with compression. Patient tolerated procedure well. Pre and postdebridement measurements documented nursing notes. No recurrent infection. Will plan for daily Betadine wet-to-dry dressing changes with overlying dry sterile dressing and Tubigrip. This to be performed by [facility]. No weightbearing restrictions at current. This may change pending patient's healing status. Due to deformity advanced age, will consider BKA if there is any development of a life or limb threatening infection. At current we will continue with local wound care. 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
[2023-12-08 10:54] VITALS: BP 102/60; PULSE 61; RESP 18; TEMP 35.9
--- NOTE | 2023-12-08 11:19 | PN.PCM_ITS ---
History of Present Illness Date of Service: 12/08/23 Chief Complaint: Nonhealing bilateral lower extremity ulcers History of Wound: Mr Wilson is an 82-year-old who was brought in here from his longterm due to nonhealing bilateral lower extremity ulcers. Has had recurrent ulcerations for over 10 years with most recent episode being more severe late last year. 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 No changes today. Patient denies any fever chills nausea vomiting chest pain calf pain at current. [facility] Patient receives daily Betadine DSD bilaterally. Patient has a minimally ambulatory status due to deformity and weakness. Patient states that he does ambulate assisted by walker within the confines of his room to the bathroom. States he does this on a daily basis. No other complaints. Objective Data Objective Data Vital Signs: Vital Signs Temp Pulse Resp BP O2 Del Method 96.6 F L 61 18 102/60 Room Air 12/08/23 10:54 12/08/23 10:54 12/08/23 10:54 12/08/23 10:54 12/08/23 10:54 Oxygen Delivery Method Room Air Physical Exam Narrative Vascular: Dorsalis pedis posterior tibial pulses palpable to bilateral lower extremity. Atrophic skin changes such as shiny taut appearance noted with absent digital hair growth. Patient does have +1 pitting edema to bilateral lower extremity with hemosiderin deposits noted. Neurologic: Light touch protective sensation diminished bilateral feet. Dermatologic: Healed medial right ankle and lateral/dorsal foot wound. Significantly improved right plantar foot wound. Significantly improved left medial ankle wound. All wounds demonstrate clean granular bases with no deep probing undermining or signs of infection. 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 This appears to contribute to wound formation and poor ambulatory status patient. Patient has diffuse muscular weakness 4 out of 5 to bilateral lower extremity compartments. On the left lower extremity patient has an equinus contracture to the hindfoot. Debridement Note Debridement Note Post-Debridement Measurements and Additional Note: Post-Debridement Measurements/Treatment - Nurse 1 - General Ulcer Assessment Start: 12/01/23 10:48 Freq: Status: Active Protocol: MARTA Activity Type Activity Date Activity User E-sign Co-sign Detail Recorded Client Recorded Date Recorded By Document 12/01/23 10:48 KW wound center 12/01/23 10:53 KW Document 12/08/23 10:54 KW wound center 12/08/23 11:05 KW 12/01/23 12/08/23 10:48 10:54 WC - Today's Visit Information Type of service Follow-up Visit Follow-up Visit (Physician/TRAY DRIER (Physician/TRAY DRIER ) ) Arrival Mode Wheelchair Wheelchair Patient Identification Verified (Name & Yes Yes ) Vital Signs Temperature (97.8 F-99.1 F) 96.7 F L 96.6 F L Temperature Source Temporal Temporal Pulse Rate (60-100) 69 61 Pulse Location Monitor Monitor Respiratory Rate (12-18) 18 18 Respiratory rate source Observation Observation Oxygen Delivery Method Room Air Room Air Blood Pressure (90/60-120/80) 95/62 102/60 Blood Pressure Mean (mm Hg) 73 74 Source Monitor Monitor Position Sitting Sitting Blood Pressure Location Right Arm Left Forearm History Since Last Visit- (Skip if this is Patient's initial visit) Have you changed medications since your No No last visit? Any new allergies or adverse reactions No No Had a fall/change in ADL's that may No No increase risk of falls Signs or symptoms of abuse and/or No No neglect since last visit Have you been in the hospital since your No No last visit? Has dressing in place as prescribed Yes Yes Has compression in place as prescribed Yes Yes Has offloadiing in place as prescribed Yes Yes Experienced any changes in pain level or No No management Left Footwear Wedge Shoe Wedge Shoe Right Footwear Wedge Shoe Wedge Shoe Pain Scale: 0-10 Numeric Is Patient Pain Free? Yes Yes - Nurse 1 - General Ulcer Measurement Start: 12/01/23 10:48 Freq: Status: Active Protocol: Activity Type Activity Date Activity User E-sign Co-sign Detail Recorded Client Recorded Date Recorded By Document 12/01/23 10:48 KW wound center 12/01/23 10:53 KW Document 12/08/23 10:54 KW wound center 12/08/23 11:05 KW 12/01/23 12/08/23 10:48 10:54 Wound Center Nurse 1 7-right plantar foot -Current Size (cm) - Length 1.1 -Current Size (cm) - Width 3.8 -Current Size (cm) - Depth 0.2 -Total Square Cm 4.18 -Exudate Amt Small Small -Exudate Type Serosanguineous Serosanguineous -Wound Margin Distinct, Distinct, Outline Outline Attached Attached -Granulation Amt Small (1-33%) Large (67-100%) -Granulation Quality [place] -Texture (Yuliet-wound Skin Appearance) Assessed Assessed -Moisture (Yuliet-wound Skin Appearance) Assessed,Dry/ Assessed, Scaly Maceration -Color (Yuliet-wound Skin Appearance) Assessed, Assessed Erythema -Temperature (Yuliet-wound Skin No Abnormality No Abnormality Appearance) (Pt Warm) (Pt Warm) -Tenderness on Palpation (Yuliet-wound No No Skin Appearance) -Ulcer Cleansing Soap and Water Soap and Water -Foul Odor after Cleansing No -Anesthetic Used 4% Lidocaine 5% Lidocaine Solution Gel #5 L Med foot -Current Size (cm) - Length 0.1 -Current Size (cm) - Width 0.1 -Current Size (cm) - Depth 0.1 -Total Square Cm 0.01 -Texture (Yuliet-wound Skin Appearance) Assessed Assessed -Moisture (Yuliet-wound Skin Appearance) Assessed Assessed -Color (Yuliet-wound Skin Appearance) Assessed Assessed -Temperature (Yuliet-wound Skin No Abnormality Appearance) (Pt Warm) -Tenderness on Palpation (Yuliet-wound No Skin Appearance) -Ulcer Cleansing Soap and Water Soap and Water -Foul Odor after Cleansing No No -Anesthetic Used 4% Lidocaine 5% Lidocaine Solution Gel Right Calf (cm) 34.5 Right Ankle (cm) 24.7 Left Calf (cm) 34.5 Left Ankle (cm) 23.2 WC - Nurse 2 - General Ulcer CM Notes Start: 12/01/23 10:48 Freq: Status: Active Protocol: Activity Type Activity Date Activity User E-sign Co-sign Detail Recorded Client Recorded Date Recorded By Document 12/01/23 11:07 [id number] [id number] 12/01/23 11:11 JF Document 12/08/23 11:13 [id number] [id number] 12/08/23 11:16 JF 12/01/23 12/08/23 11:07 11:13 Wound Center Nurse 2 7-right plantar foot -Time 11: 11:14 -Correct Patient Yes Yes -Correct Side, Site, Position Yes Yes -Correct Procedure Yes Yes -Procedure Performed Yes Yes -Type of Procedure Debridement Debridement -Clinical Debridement Subcutaneous Subcutaneous -Tissue Removed Subcutaneous Subcutaneous -Post Debridement (cm) - Length 2.2 3.0 -Post Debridement (cm) - Width 1.5 1.5 -Post Debridement (cm) - Depth 0.2 0.1 -Total Square (Post) (cm) 3.30 4.50 -Area of Debridement (cm) - Length 2.2 3.0 -Area of Debridement (cm) - Width 1.5 1.5 -Total Square (Area) (cm) 3.30 4.50 -Tunneling No No -Undermining/Tunneling No No -Circular Undermining No No -Wound/Ulcer Outcome Not Healed Not Healed -Ulcer Cleansing Rinsed/ Rinsed/ Irrigated with Irrigated with Saline Saline -Foul Odor after Cleansing No No -Bioengineered Tissue No No -Bleeding Controlled with Pressure Pressure -Treatment Response Procedure Procedure Tolerated Well Tolerated Well -Offloading Yes No -Type of Offloading Surgical Shoe -Debridement - Subq, 1st 20sq cm No Yes #5 L Med foot -Time 11:08 -Correct Patient Yes No -Correct Side, Site, Position Yes No -Correct Procedure Yes No -Procedure Performed Yes No -Type of Procedure Debridement -Clinical Debridement Subcutaneous -Tissue Removed Subcutaneous -Post Debridement (cm) - Length 0.2 0.1 -Post Debridement (cm) - Width 0.2 0.1 -Post Debridement (cm) - Depth 0.1 0.1 -Total Square (Post) (cm) 0.04 0.01 -Area of Debridement (cm) - Length 0.2 0.1 -Area of Debridement (cm) - Width 0.2 0.1 -Total Square (Area) (cm) 0.04 0.01 -Tunneling No -Undermining/Tunneling No -Circular Undermining No -Wound/Ulcer Outcome Not Healed Not Healed -Ulcer Cleansing Rinsed/ Irrigated with Saline -Foul Odor after Cleansing No -Bioengineered Tissue No -Bleeding Controlled with Pressure -Treatment Response Procedure Tolerated Well -Offloading Yes -Type of Offloading Surgical Shoe -Debridement - Subq, 1st 20sq cm Yes Pain Scale: 0-10 Numeric Is Patient Pain Free? Yes Yes WC - Nurse 3 - General Ulcer D/C NN Start: 12/01/23 10:48 Freq: Status: Active Protocol: Activity Type Activity Date Activity User E-sign Co-sign Detail Recorded Client Recorded Date Recorded By Document 12/01/23 11:49 RB wound center 12/01/23 11:51 RB 12/01/23 11:49 Wound Care Center Nurse 3 7-right plantar foot -Ulcer Cleansing betadine -Other Dressing abd -Primary Dressing Covered/Secured with Dry Gauze & Roll Gauze, Secured with Tape #5 L Med foot -Ulcer Cleansing betadine -Other Dressing ABD -Primary Dressing Covered/Secured with Dry Gauze,Dry Gauze & Roll Gauze,Secured with Tape bilateral -Other bridgette Treatment Response Procedure Tolerated Well Pain Scale: 0-10 Numeric Is Patient Pain Free? Yes WC - Visit Discharge Discharge Condition Stable Ambulatory Status Walker, Wheelchair Transportation NM transport Medication Reconcilliation completed & No provided to patient/care provider Clinical Summary of Care Provided Yes Assessment/Plan Assessment/Plan (1) Venous insufficiency (chronic) (peripheral): CODE(S): I87.2 - Venous insufficiency (chronic) (peripheral) PLAN: Exam performed Arterial and venous studies reviewed Patient on Coumadin Patient underwent recent venous procedure per Dr. Arvizu. This will likely help with patient's edema and wound healing moving forward. Today bilateral foot and ankle wounds were debrided excisionally down to including level of subcutaneous tissue of all nonviable tissue using 5mm dermal curette. No anesthesia due to neuropathy. Hemostasis with compression. Patient tolerated procedure well. Pre and postdebridement measurements documented nursing notes. No recurrent infection. Will plan for daily Betadine wet-to-dry dressing changes with overlying dry sterile dressing and Tubigrip. This to be performed by longterm. No weightbearing restrictions at current. This may change pending patient's healing status. Due to deformity advanced age, will consider BKA if there is any development of a life or limb threatening infection. At current we will continue with local wound care. 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
[2023-12-22 10:40] VITALS: BP 116/52; PULSE 60; RESP 18; TEMP 36.3
--- NOTE | 2023-12-22 11:02 | PN.PCM_ITS ---
History of Present Illness Date of Service: 12/22/23 Chief Complaint: Nonhealing bilateral lower extremity ulcers History of Wound: Mr Wilson is an 82-year-old who was brought in here from his shelter due to nonhealing bilateral lower extremity ulcers. Has had recurrent ulcerations for over 10 years with most recent episode being more severe late last year. 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 No changes today. Patient denies any fever chills nausea vomiting chest pain calf pain at current. Patient resides in shelter facility. Patient receives daily Betadine DSD bilaterally. Patient has a minimally ambulatory status due to deformity and weakness. Patient states that he does ambulate assisted by walker within the confines of his room to the bathroom. States he does this on a daily basis. No other complaints. Objective Data Objective Data Vital Signs: Vital Signs Temp Pulse Resp BP O2 Del Method 97.3 F L 60 18 116/52 L Room Air 12/22/23 10:40 12/22/23 10:40 12/22/23 10:40 12/22/23 10:40 12/22/23 10:40 Oxygen Delivery Method Room Air Physical Exam Narrative Vascular: Dorsalis pedis posterior tibial pulses palpable to bilateral lower extremity. Atrophic skin changes such as shiny taut appearance noted with absent digital hair growth. Patient does have +1 pitting edema to bilateral lower extremity with hemosiderin deposits noted. Neurologic: Light touch protective sensation diminished bilateral feet. Dermatologic: Healed medial right ankle and lateral/dorsal foot wound. Significantly improved right plantar foot wound. Significantly improved left medial ankle wound. All wounds demonstrate clean granular bases with no deep probing undermining or signs of infection. 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 This appears to contribute to wound formation and poor ambulatory status patient. Patient has diffuse muscular weakness 4 out of 5 to bilateral lower extremity compartments. On the left lower extremity patient has an equinus contracture to the hindfoot. Debridement Note Debridement Note Post-Debridement Measurements and Additional Note: Post-Debridement Measurements/Treatment SASHA - Nurse 1 - General Ulcer Assessment Start: 12/01/23 10:48 Freq: Status: Active Protocol: MARTA Activity Type Activity Date Activity User E-sign Co-sign Detail Recorded Client Recorded Date Recorded By Document 12/01/23 10:48 KW wound center 12/01/23 10:53 KW Document 12/08/23 10:54 KW wound center 12/08/23 11:05 KW Document 12/22/23 10:40 KW l 12/22/23 10:56 KW 12/01/23 12/08/23 12/22/23 10:48 10:54 10:40 WC - Today's Visit Information Type of service Follow-up Visit Follow-up Visit Follow-up Visit (Physician/PATIENT ACCOUNTS MANAGER (Physician/PATIENT ACCOUNTS MANAGER (Physician/PATIENT ACCOUNTS MANAGER ) ) ) Arrival Mode Wheelchair Wheelchair Wheelchair Patient Identification Verified (Name & Yes Yes Yes ) Vital Signs Temperature (97.8 F-99.1 F) 96.7 F L 96.6 F L 97.3 F L Temperature Source Temporal Temporal Temporal Pulse Rate (60-100) 69 61 60 Pulse Location Monitor Monitor Monitor Respiratory Rate (12-18) 18 18 18 Respiratory rate source Observation Observation Observation Oxygen Delivery Method Room Air Room Air Room Air Blood Pressure (90/60-120/80) 95/62 102/60 116/52 L Blood Pressure Mean (mm Hg) 73 74 73 Source Monitor Monitor Monitor Position Sitting Sitting Semi-Fowlers Blood Pressure Location Right Arm Left Forearm Left Arm History Since Last Visit- (Skip if this is Patient's initial visit) Have you changed medications since your No No No last visit? Any new allergies or adverse reactions No No No Had a fall/change in ADL's that may No No No increase risk of falls Signs or symptoms of abuse and/or No No No neglect since last visit Have you been in the hospital since your No No No last visit? Has dressing in place as prescribed Yes Yes Yes Has compression in place as prescribed Yes Yes Yes Has offloadiing in place as prescribed Yes Yes Yes Experienced any changes in pain level or No No No management Left Footwear Wedge Shoe Wedge Shoe Wedge Shoe Right Footwear Wedge Shoe Wedge Shoe Wedge Shoe Pain Scale: 0-10 Numeric Is Patient Pain Free? Yes Yes Yes SASHA - Nurse 1 - General Ulcer Measurement Start: 12/01/23 10:48 Freq: Status: Active Protocol: Activity Type Activity Date Activity User E-sign Co-sign Detail Recorded Client Recorded Date Recorded By Document 12/01/23 10:48 KW wound center 12/01/23 10:53 KW Document 12/08/23 10:54 KW wound center 12/08/23 11:05 KW Document 12/22/23 10:40 KW l 12/22/23 10:56 KW 12/01/23 12/08/23 12/22/23 10:48 10:54 10:40 Wound Center Nurse 1 7-right plantar foot -Current Size (cm) - Length 1.1 5.2 -Current Size (cm) - Width 3.8 3.4 -Current Size (cm) - Depth 0.2 0.1 -Total Square Cm 4.18 17.68 -Date of Last Picture (Recall this 12/22/23 field) -Exudate Amt Small Small Small -Exudate Type Serosanguineous Serosanguineous Serosanguineous -Wound Margin Distinct, Distinct, Distinct, Outline Outline Outline Attached Attached Attached -Granulation Amt Small (1-33%) Large (67-100%) Large (67-100%) -Granulation Quality [place] -Texture (Yuliet-wound Skin Appearance) Assessed Assessed -Moisture (Yuliet-wound Skin Appearance) Assessed,Dry/ Assessed, Maceration Scaly Maceration -Color (Yuliet-wound Skin Appearance) Assessed, Assessed Assessed Erythema -Temperature (Yuliet-wound Skin No Abnormality No Abnormality No Abnormality Appearance) (Pt Warm) (Pt Warm) (Pt Warm) -Tenderness on Palpation (Yuliet-wound No No No Skin Appearance) -Ulcer Cleansing Soap and Water Soap and Water Soap and Water -Foul Odor after Cleansing No No -Anesthetic Used 4% Lidocaine 5% Lidocaine 5% Lidocaine Solution Gel Gel #5 L Med foot -Current Size (cm) - Length 0.1 0.1 -Current Size (cm) - Width 0.1 0.1 -Current Size (cm) - Depth 0.1 0 -Total Square Cm 0.01 0.01 -Date of Last Picture (Recall this 12/22/23 field) -Texture (Yuliet-wound Skin Appearance) Assessed Assessed -Moisture (Yuliet-wound Skin Appearance) Assessed Assessed -Color (Yuliet-wound Skin Appearance) Assessed Assessed -Temperature (Yuliet-wound Skin No Abnormality Appearance) (Pt Warm) -Tenderness on Palpation (Yuliet-wound No Skin Appearance) -Ulcer Cleansing Soap and Water Soap and Water -Foul Odor after Cleansing No No -Anesthetic Used 4% Lidocaine 5% Lidocaine Solution Gel Right Calf (cm) 34.5 30.2 Right Ankle (cm) 24.7 23.5 Left Calf (cm) 34.5 34.7 Left Ankle (cm) 23.2 23 WC - Nurse 2 - General Ulcer CM Notes Start: 12/01/23 10:48 Freq: Status: Active Protocol: Activity Type Activity Date Activity User E-sign Co-sign Detail Recorded Client Recorded Date Recorded By Document 12/01/23 11:07 [id number] 12/01/23 11:11 Document 12/08/23 11:13 [id number] 12/08/23 11:16 12/01/23 12/08/23 11:07 11:13 Wound Center Nurse 2 7-right plantar foot -Time 11:07 11:14 -Correct Patient Yes Yes -Correct Side, Site, Position Yes Yes -Correct Procedure Yes Yes -Procedure Performed Yes Yes -Type of Procedure Debridement Debridement -Clinical Debridement Subcutaneous Subcutaneous -Tissue Removed Subcutaneous Subcutaneous -Post Debridement (cm) - Length 2.2 3.0 -Post Debridement (cm) - Width 1.5 1.5 -Post Debridement (cm) - Depth 0.2 0.1 -Total Square (Post) (cm) 3.30 4.50 -Area of Debridement (cm) - Length 2.2 3.0 -Area of Debridement (cm) - Width 1.5 1.5 -Total Square (Area) (cm) 3.30 4.50 -Tunneling No No -Undermining/Tunneling No No -Circular Undermining No No -Wound/Ulcer Outcome Not Healed Not Healed -Ulcer Cleansing Rinsed/ Rinsed/ Irrigated with Irrigated with Saline Saline -Foul Odor after Cleansing No No -Bioengineered Tissue No No -Bleeding Controlled with Pressure Pressure -Treatment Response Procedure Procedure Tolerated Well Tolerated Well -Offloading Yes No -Type of Offloading Surgical Shoe -Debridement - Subq, 1st 20sq cm No Yes #5 L Med foot -Time 11:08 -Correct Patient Yes No -Correct Side, Site, Position Yes No -Correct Procedure Yes No -Procedure Performed Yes No -Type of Procedure Debridement -Clinical Debridement Subcutaneous -Tissue Removed Subcutaneous -Post Debridement (cm) - Length 0.2 0.1 -Post Debridement (cm) - Width 0.2 0.1 -Post Debridement (cm) - Depth 0.1 0.1 -Total Square (Post) (cm) 0.04 0.01 -Area of Debridement (cm) - Length 0.2 0.1 -Area of Debridement (cm) - Width 0.2 0.1 -Total Square (Area) (cm) 0.04 0.01 -Tunneling No -Undermining/Tunneling No -Circular Undermining No -Wound/Ulcer Outcome Not Healed Not Healed -Ulcer Cleansing Rinsed/ Irrigated with Saline -Foul Odor after Cleansing No -Bioengineered Tissue No -Bleeding Controlled with Pressure -Treatment Response Procedure Tolerated Well -Offloading Yes -Type of Offloading Surgical Shoe -Debridement - Subq, 1st 20sq cm Yes Pain Scale: 0-10 Numeric Is Patient Pain Free? Yes Yes - Nurse 3 - General Ulcer D/C NN Start: 12/01/23 10:48 Freq: Status: Active Protocol: Activity Type Activity Date Activity User E-sign Co-sign Detail Recorded Client Recorded Date Recorded By Document 12/01/23 11:49 wound center 12/01/23 11:51 12/01/23 11:49 Wound Care Center Nurse 3 7-right plantar foot -Ulcer Cleansing betadine -Other Dressing abd -Primary Dressing Covered/Secured with Dry Gauze & Roll Gauze, Secured with Tape #5 L Med foot -Ulcer Cleansing betadine -Other Dressing ABD -Primary Dressing Covered/Secured with Dry Gauze,Dry Gauze & Roll Gauze,Secured with Tape bilateral -Other bridgette Treatment Response Procedure Tolerated Well Pain Scale: 0-10 Numeric Is Patient Pain Free? Yes - Visit Discharge Discharge Condition Stable Ambulatory Status Walker, Wheelchair Transportation NH transport Medication Reconcilliation completed & No provided to patient/care provider Clinical Summary of Care Provided Yes Assessment/Plan Assessment/Plan (1) Venous insufficiency (chronic) (peripheral): CODE(S): I87.2 - Venous insufficiency (chronic) (peripheral) PLAN: Exam performed Arterial and venous studies reviewed Patient on Coumadin Patient underwent recent venous procedure per Dr. Arvizu. This will likely help with patient's edema and wound healing moving forward. Today bilateral foot and ankle wounds were debrided excisionally down to including level of subcutaneous tissue of all nonviable tissue using 5mm dermal curette. No anesthesia due to neuropathy. Hemostasis with compression. Patient tolerated procedure well. Pre and postdebridement measurements documented nursing notes. No recurrent infection. Will plan for daily Betadine wet-to-dry dressing changes with overlying dry sterile dressing and Tubigrip. This to be performed by shelter. No weightbearing restrictions at current. This may change pending patient's healing status. Due to deformity advanced age, will consider BKA if there is any development of a life or limb threatening infection. At current we will continue with local wound care. 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
== END 2023-12-27 23:59 | disposition home or self-care (01) ==
LOC: WC 10:30
PROVIDERS: PCP Family Medicine; Referring Provider Family Medicine; Visit Provider Podiatrist
DX: L97.512 Non-pressure 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 foot with fat layer exposed (principal); L97.522 Non-pressure chronic ulcer of other part of left foot with fat layer exposed; G62.9 Polyneuropathy, unspecified; M24.561 Contracture, right knee; I87.2 Venous insufficiency (chronic) (peripheral); Q66.11 Congenital talipes calcaneovarus, right foot; R53.1 Weakness; I73.89 Other specified peripheral vascular diseases; L03.115 Cellulitis of right lower limb; B35.1 Tinea unguium; M79.674 Pain in right toe(s); M79.675 Pain in left toe(s)
CPT/HCPCS: 11042

== ENCOUNTER 2024-01-26 10:30 | Outpatient (RCR) | payer MEDICARE, BC, SELFPAY ==
[2023-12-28 00:21] VITALS: BP 124/76; PULSE 63; RESP 18; TEMP 36.2
[2024-01-05 10:41] VITALS: BP 88/42; PULSE 64; RESP 18; TEMP 36.1
--- NOTE | 2024-01-05 11:09 | PCM.WC.PN ---
History of Present Illness Date of Service: 01/05/24 Chief Complaint: Nonhealing bilateral lower extremity ulcers History of Wound: Mr Wilson is an 82-year-old who [facility] to nonhealing bilateral lower extremity ulcers. Has had recurrent ulcerations for over 10 years with most recent episode being more severe late last year. 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 No changes today. Patient denies any fever chills nausea vomiting chest pain calf pain at current. Patient resides in group home facility. Patient receives daily Betadine DSD bilaterally. Patient has a minimally ambulatory status due to deformity and weakness. Patient states that he does ambulate assisted by walker within the confines of his room to the bathroom. States he does this on a daily basis. No other complaints. Objective Data Objective Data Vital Signs: Vital Signs Temp Pulse Resp BP O2 Del Method 96.9 F L 64 18 88/42 L Room Air 01/05/24 10:41 01/05/24 10:41 01/05/24 10:41 01/05/24 10:41 01/05/24 10:41 Oxygen Delivery Method Room Air Physical Exam Narrative Vascular: Dorsalis pedis posterior tibial pulses palpable to bilateral lower extremity. Atrophic skin changes such as shiny taut appearance noted with absent digital hair growth. Patient does have +1 pitting edema to bilateral lower extremity with hemosiderin deposits noted. Neurologic: Light touch protective sensation diminished bilateral feet. Dermatologic: Healed medial right ankle and lateral/dorsal foot wound. Significantly improved right plantar foot wound. healed left medial ankle wound. All wounds demonstrate clean granular bases with no deep probing undermining or signs of infection. 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 This appears to contribute to wound formation and poor ambulatory status patient. Patient has diffuse muscular weakness 4 out of 5 to bilateral lower extremity compartments. On the left lower extremity patient has an equinus contracture to the hindfoot. Debridement Note Debridement Note Post-Debridement Measurements and Additional Note: Post-Debridement Measurements/Treatment SASHA - Nurse 1 - General Ulcer Assessment Start: 01/05/24 10:41 Freq: Status: Active Protocol: MARTA Activity Type Activity Date Activity User E-sign Co-sign Detail Recorded Client Recorded Date Recorded By Document 01/05/24 10:41 KW l 01/05/24 10:50 KW 01/05/24 10:41 WC - Today's Visit Information Type of service Follow-up Visit (Physician/ROAD MACHINE OPERATOR ) Arrival Mode Wheelchair Patient Identification Verified (Name & Yes ) Vital Signs Temperature (97.8 F-99.1 F) 96.9 F L Temperature Source Temporal Pulse Rate (60-100) 64 Pulse Location Monitor Respiratory Rate (12-18) 18 Respiratory rate source Observation Oxygen Delivery Method Room Air Blood Pressure (90/60-120/80) 88/42 L Blood Pressure Mean (mm Hg) 57 Source Monitor Position Semi-Fowlers Blood Pressure Location Left Arm History Since Last Visit- (Skip if this is Patient's initial visit) Have you changed medications since your No last visit? Any new allergies or adverse reactions No Had a fall/change in ADL's that may No increase risk of falls Signs or symptoms of abuse and/or No neglect since last visit Have you been in the hospital since your No last visit? Has dressing in place as prescribed Yes Has compression in place as prescribed Yes Has offloadiing in place as prescribed Yes Experienced any changes in pain level or No management Left Footwear Wedge Shoe Right Footwear Wedge Shoe Pain Scale: 0-10 Numeric Is Patient Pain Free? Yes SASHA - Nurse 1 - General Ulcer Measurement Start: 01/05/24 10:41 Freq: Status: Active Protocol: Activity Type Activity Date Activity User E-sign Co-sign Detail Recorded Client Recorded Date Recorded By Document 01/05/24 10:41 KW l 01/05/24 10:50 KW 01/05/24 10:41 Wound Center Nurse 1 7-right plantar foot -Current Size (cm) - Length 1 -Current Size (cm) - Width 1.5 -Current Size (cm) - Depth 0.3 -Total Square Cm 1.5 -Date of Last Picture (Recall this 01/05/24 field) -Exudate Amt Small -Exudate Type Serosanguineous -Wound Margin Distinct, Outline Attached -Granulation Amt Large (67-100%) -Granulation Quality [place] -Necrosis Amt Small (1-33%) -Necrotic Tissue Type Adherent Slough -Texture (Yuliet-wound Skin Appearance) Assessed -Moisture (Yuliet-wound Skin Appearance) Maceration,Dry/ Scaly -Color (Yuliet-wound Skin Appearance) Assessed -Temperature (Yuliet-wound Skin No Abnormality Appearance) (Pt Warm) -Tenderness on Palpation (Yuliet-wound No Skin Appearance) -Ulcer Cleansing Rinsed/ Irrigated with Saline -Foul Odor after Cleansing No -Anesthetic Used 5% Lidocaine Gel WC - Nurse 2 - General Ulcer CM Notes Start: 01/05/24 10:41 Freq: Status: Active Protocol: Activity Type Activity Date Activity User E-sign Co-sign Detail Recorded Client Recorded Date Recorded By Document 01/05/24 11:07 DS 1 01/05/24 11:08 DS 01/05/24 11:07 Wound Center Nurse 2 -Time 11:07 -Correct Patient Yes -Correct Side, Site, Position Yes -Correct Procedure Yes -Procedure Performed Yes -Type of Procedure Debridement -Clinical Debridement Subcutaneous -Tissue Removed Subcutaneous -Post Debridement (cm) - Length 3.8 -Post Debridement (cm) - Width 0.7 -Post Debridement (cm) - Depth 0.2 -Total Square (Post) (cm) 2.66 -Area of Debridement (cm) - Length 3.8 -Area of Debridement (cm) - Width 0.7 -Total Square (Area) (cm) 2.66 -Tunneling No -Undermining/Tunneling No -Circular Undermining No -Wound/Ulcer Outcome Not Healed -Ulcer Cleansing Rinsed/ Irrigated with Saline -Bleeding Controlled with Pressure -Treatment Response Procedure Tolerated Well -Debridement - Subq, 1st 20sq cm Yes Pain Scale: 0-10 Numeric Is Patient Pain Free? Yes Assessment/Plan Assessment/Plan (1) Venous insufficiency (chronic) (peripheral): CODE(S): I87.2 - Venous insufficiency (chronic) (peripheral) PLAN: Exam performed Arterial and venous studies reviewed Patient on Coumadin Patient underwent recent venous procedure per Dr. Arvizu. This will likely help with patient's edema and wound healing moving forward. Today right foot wound was debrided excisionally down to including level of subcutaneous tissue of all nonviable tissue using 5mm dermal curette. No anesthesia due to neuropathy. Hemostasis with compression. Patient tolerated procedure well. Pre and postdebridement measurements documented nursing notes. No recurrent infection. Will plan for daily dakin's wety to dry dressing changes with overlying dry sterile dressing and Tubigrip. [facility] by jail. No weightbearing restrictions at current. This may change pending patient's healing status. Due to deformity advanced age, will consider BKA if there is any development of a life or limb threatening infection. At current we will continue with local wound care. 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
--- NOTE | 2024-01-07 10:03 | WC ---
PHOTO 01/05/2024 RT PLANTAR
[2024-01-19 10:59] VITALS: BP 119/57; PULSE 60; RESP 18; TEMP 35.9
--- NOTE | 2024-01-19 11:27 | PCM.WC.PN ---
History of Present Illness Date of Service: 01/19/24 Chief Complaint: Nonhealing bilateral lower extremity ulcers History of Wound: Mr Wilson is an 82-year-old who was brought in here from his senior care due to nonhealing bilateral lower extremity ulcers. Has had recurrent ulcerations for over 10 years with most recent episode being more severe late last year. 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 No changes today. Patient denies any fever chills nausea vomiting chest pain calf pain at current. [facility] Patient receives daily Betadine DSD bilaterally. Patient has a minimally ambulatory status due to deformity and weakness. Patient states that he does ambulate assisted by walker within the confines of his room to the bathroom. States he does this on a daily basis. No other complaints. Objective Data Objective Data Vital Signs: Vital Signs Temp Pulse Resp BP O2 Del Method 96.6 F L 60 18 119/57 L Room Air 01/19/24 10:59 01/19/24 10:59 01/19/24 10:59 01/19/24 10:59 01/19/24 10:59 Oxygen Delivery Method Room Air Physical Exam Narrative Vascular: Dorsalis pedis posterior tibial pulses palpable to bilateral lower extremity. Atrophic skin changes such as shiny taut appearance noted with absent digital hair growth. Patient does have +1 pitting edema to bilateral lower extremity with hemosiderin deposits noted. Neurologic: Light touch protective sensation diminished bilateral feet. Dermatologic: Healed medial right ankle and lateral. New dorsal foot wound right foot. Significantly improved right plantar foot wound, slight maceration today. healed left medial ankle wound. All wounds demonstrate clean granular bases with no deep probing undermining or signs of infection. 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 This appears to contribute to wound formation and poor ambulatory status patient. Patient has diffuse muscular weakness 4 out of 5 to bilateral lower extremity compartments. On the left lower extremity patient has an equinus contracture to the hindfoot. Debridement Note Debridement Note Post-Debridement Measurements and Additional Note: Post-Debridement Measurements/Treatment SASHA - Nurse 1 - General Ulcer Assessment Start: 01/05/24 10:41 Freq: Status: Active Protocol: MARTA Activity Type Activity Date Activity User E-sign Co-sign Detail Recorded Client Recorded Date Recorded By Document 01/05/24 10:41 KW l 01/05/24 10:50 KW Document 01/19/24 10:59 DS 1 01/19/24 11:01 DS 01/05/24 01/19/24 10:41 10:59 WC - Today's Visit Information Type of service Follow-up Visit Follow-up Visit (Physician/FACILITIES MANAGEMENT EXECUTIVE (Physician/FACILITIES MANAGEMENT EXECUTIVE ) ) Arrival Mode Wheelchair Walker, Wheelchair Patient Identification Verified (Name & Yes ) Safety Precautions Fall Prevention Vital Signs Temperature (97.8 F-99.1 F) 96.9 F L 96.6 F L Temperature Source Temporal Temporal Pulse Rate (60-100) 64 60 Pulse Location Monitor Monitor Respiratory Rate (12-18) 18 18 Respiratory rate source Observation Observation Oxygen Delivery Method Room Air Room Air Blood Pressure (90/60-120/80) 88/42 L 119/57 L Blood Pressure Mean (mm Hg) 57 77 Source Monitor Monitor Position Semi-Fowlers Semi-Fowlers Blood Pressure Location Left Arm Right Arm History Since Last Visit- (Skip if this is Patient's initial visit) Have you changed medications since your No No last visit? Any new allergies or adverse reactions No No Had a fall/change in ADL's that may No No increase risk of falls Signs or symptoms of abuse and/or No No neglect since last visit Have you been in the hospital since your No No last visit? Has dressing in place as prescribed Yes Yes Has compression in place as prescribed Yes N/A Has offloadiing in place as prescribed Yes Yes Experienced any changes in pain level or No No management Left Footwear Wedge Shoe Surgical Shoe with pressure relief insole Right Footwear Wedge Shoe Surgical Shoe with pressure relief insole Pain Scale: 0-10 Numeric Is Patient Pain Free? Yes Yes SASHA - Nurse 1 - General Ulcer Measurement Start: 01/05/24 10:41 Freq: Status: Active Protocol: Activity Type Activity Date Activity User E-sign Co-sign Detail Recorded Client Recorded Date Recorded By Document 01/05/24 10:41 KW l 07/09/24 10:50 KW Document 01/19/24 10:59 DS 1 01/19/24 11:01 DS 01/05/24 01/19/24 10:41 10:59 Wound Center Nurse 1 7-right plantar foot -Current Size (cm) - Length 1 0.1 -Current Size (cm) - Width 1.5 0.1 -Current Size (cm) - Depth 0.3 0.1 -Total Square Cm 1.5 0.01 -Date of Last Picture (Recall this 01/05/24 field) -Photo Taken No -Exudate Amt Small -Exudate Type Serosanguineous -Wound Margin Distinct, Distinct, Outline Outline Attached Attached -Granulation Amt Large (67-100%) Small (1-33%) -Granulation Quality [place] -Slough/Fibrin Yes -Necrosis Amt Small (1-33%) Medium (34-66%) -Necrotic Tissue Type Adherent Slough -Texture (Yuliet-wound Skin Appearance) Assessed Assessed -Moisture (Yuliet-wound Skin Appearance) Maceration,Dry/ Assessed Scaly -Color (Yuliet-wound Skin Appearance) Assessed Assessed -Temperature ([place]ul[place]-wound Skin No Abnormality No Abnormality Appearance) (Pt Warm) (Pt Warm) -Tenderness on Palpation (Yuliet-wound No No Skin Appearance) -Ulcer Cleansing Rinsed/ Rinsed/ Irrigated with Irrigated with Saline Saline -Foul Odor after Cleansing No -Anesthetic Used 5% Lidocaine 5% Lidocaine Gel Gel WC - Nurse 2 - General Ulcer CM Notes Start: 01/05/24 10:41 Freq: Status: Active Protocol: Activity Type Activity Date Activity User E-sign Co-sign Detail Recorded Client Recorded Date Recorded By Document 01/05/24 11:07 DS 1 01/05/24 11:08 DS 01/05/24 11:07 Wound Center Nurse 2 -Time 11:07 -Correct Patient Yes -Correct Side, Site, Position Yes -Correct Procedure Yes -Procedure Performed Yes -Type of Procedure Debridement -Clinical Debridement Subcutaneous -Tissue Removed Subcutaneous -Post Debridement (cm) - Length 3.8 -Post Debridement (cm) - Width 0.7 -Post Debridement (cm) - Depth 0.2 -Total Square (Post) (cm) 2.66 -Area of Debridement (cm) - Length 3.8 -Area of Debridement (cm) - Width 0.7 -Total Square (Area) (cm) 2.66 -Tunneling No -Undermining/Tunneling No -Circular Undermining No -Wound/Ulcer Outcome Not Healed -Ulcer Cleansing Rinsed/ Irrigated with Saline -Bleeding Controlled with Pressure -Treatment Response Procedure Tolerated Well -Debridement - Subq, 1st 20sq cm Yes Pain Scale: 0-10 Numeric Is Patient Pain Free? Yes - Nurse 3 - General Ulcer D/C NN Start: 01/05/24 10:41 Freq: Status: Active Protocol: Activity Type Activity Date Activity User E-sign Co-sign Detail Recorded Client Recorded Date Recorded By Document 01/05/24 11:21 KW l 01/05/24 11:44 KW 01/05/24 11:21 Wound Care Center Nurse 3 7-right plantar foot -Other Dressing dakins soaked gauze -Primary Dressing Covered/Secured with Dry Gauze & Roll Gauze, Secured with Tape bilateral -Compression Wrap Cole Wrap Pain Scale: 0-10 Numeric Is Patient Pain Free? Yes WC - Visit Discharge Discharge Condition Stable Ambulatory Status Wheelchair Medication Reconcilliation completed & No provided to patient/care provider Clinical Summary of Care Provided Yes Assessment/Plan Assessment/Plan (1) Venous insufficiency (chronic) (peripheral): CODE(S): I87.2 - Venous insufficiency (chronic) (peripheral) PLAN: Exam performed Arterial and venous studies reviewed Patient on Coumadin Patient underwent recent venous procedure per Dr. Arvizu. This will likely help with patient's edema and wound healing moving forward. Today right foot wound was debrided excisionally down to including level of subcutaneous tissue of all nonviable tissue using 5mm dermal curette. No anesthesia due to neuropathy. Hemostasis with compression. Patient tolerated procedure well. Pre and postdebridement measurements documented nursing notes. No recurrent infection. Will plan for daily dakin's wet to dry dressing changes with overlying dry sterile dressing and Tubigrip. This to be performed by senior care. No weightbearing restrictions at current. This may change pending patient's healing status. Due to deformity advanced age, will consider BKA if there is any development of a life or limb threatening infection. At current we will continue with local wound care. 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
[2024-01-26 10:34] VITALS: RESP 18
--- NOTE | 2024-01-26 11:06 | PN.PCM_ITS ---
History of Present Illness Date of Service: 01/26/24 Chief Complaint: Nonhealing bilateral lower extremity ulcers History of Wound: Mr Wilson is an 82-year-old who [facility] nonhealing bilateral lower extremity ulcers. Has had recurrent ulcerations for over 10 years with most recent episode being more severe late last year. 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 No changes today. Patient denies any fever chills nausea vomiting chest pain calf pain at current. Patient resides in [facility]. Patient receives daily Betadine DSD bilaterally. Patient has a minimally ambulatory status due to deformity and weakness. Patient states that he does ambulate assisted by walker within the confines of his room to the bathroom. States he does this on a daily basis. No other complaints. Objective Data Objective Data Vital Signs: Vital Signs Temp Pulse Resp BP O2 Del Method 96.6 F L 60 18 119/57 L Room Air 01/19/24 10:59 01/19/24 10:59 01/26/24 10:34 01/19/24 10:59 01/26/24 10:34 Oxygen Delivery Method Room Air Lab / Micro Data Micro: Microbiology 01/19/24 13:01 Wound - Right Foot Gram Stain - Final 01/19/24 13:01 Wound - Right Foot Wound Culture - Final Proteus mirabilis Staphylococcus simulans Enterococcus faecalis Serratia marcescens Pseudomonas aeruginosa 01/19/24 13:01 Wound - Right Foot Anaerobic Culture - Final No anaerobic bacteria isolated. Physical Exam Narrative Vascular: Dorsalis pedis posterior tibial pulses palpable to bilateral lower extremity. Atrophic skin changes such as shiny taut appearance noted with absent digital hair growth. Patient does have +1 pitting edema to bilateral lower extremity with hemosiderin deposits noted. Neurologic: Light touch protective sensation diminished bilateral feet. Dermatologic: Healed medial right ankle and lateral. New dorsal foot wound right foot. Significantly improved right plantar foot wound, slight maceration today. healed left medial ankle wound. All wounds demonstrate clean granular bases with no deep probing undermining or signs of infection. 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 This appears to contribute to wound formation and poor ambulatory status patient. Patient has diffuse muscular weakness 4 out of 5 to bilateral lower extremity compartments. On the left lower extremity patient has an equinus contracture to the hindfoot. Debridement Note Debridement Note Post-Debridement Measurements and Additional Note: Post-Debridement Measurements/Treatment - Nurse 1 - General Ulcer Assessment Start: 01/05/24 10:41 Freq: Status: Active Protocol: [email or web address] Activity Type Activity Date Activity User E-sign Co-sign Detail Recorded Client Recorded Date Recorded By Document 01/05/24 10:41 KW l 01/05/24 10:50 KW Document 01/19/24 10:59 DS 1 01/19/24 11:01 DS Document 01/26/24 10:34 KW gj 01/26/24 10:53 KW 01/05/24 01/19/24 01/26/24 10:41 10:59 10:34 - Today's Visit Information Type of service Follow-up Visit Follow-up Visit Follow-up Visit (Physician/FORKLIFT OPERATOR (Physician/FORKLIFT OPERATOR (Physician/FORKLIFT OPERATOR ) ) ) Arrival Mode Wheelchair Walker, Wheelchair Wheelchair Patient Identification Verified (Name & Yes Yes ) Safety Precautions Fall Prevention Vital Signs Temperature (97.8 F-99.1 F) 96.9 F L 96.6 F L Temperature Source Temporal Temporal Temporal Pulse Rate (60-100) 64 60 Pulse Location Monitor Monitor Monitor Respiratory Rate (12-18) 18 18 18 Respiratory rate source Observation Observation Observation Oxygen Delivery Method Room Air Room Air Room Air Blood Pressure (90/60-120/80) 88/42 L 119/57 L Blood Pressure Mean (mm Hg) 57 77 Source Monitor Monitor Monitor Position Semi-Fowlers Semi-Fowlers Sitting Blood Pressure Location Left Arm Right Arm Left Arm History Since Last Visit- (Skip if this is Patient's initial visit) Have you changed medications since your No No No last visit? Any new allergies or adverse reactions No No No Had a fall/change in ADL's that may No No No increase risk of falls Signs or symptoms of abuse and/or No No No neglect since last visit Have you been in the hospital since your No No No last visit? Has dressing in place as prescribed Yes Yes Yes Has compression in place as prescribed Yes N/A Yes Has offloadiing in place as prescribed Yes Yes Yes Experienced any changes in pain level or No No No management Left Footwear Wedge Shoe Surgical Shoe Surgical Shoe with pressure with pressure relief insole relief insole Right Footwear Wedge Shoe Surgical Shoe Surgical Shoe with pressure with pressure relief insole relief insole Pain Scale: 0-10 Numeric Is Patient Pain Free? Yes Yes Yes WC - Nurse 1 - General Ulcer Measurement Start: 01/05/24 10:41 Freq: Status: Active Protocol: Activity Type Activity Date Activity User E-sign Co-sign Detail Recorded Client Recorded Date Recorded By Document 01/05/24 10:41 KW l 01/05/24 10:50 KW Document 01/19/24 10:59 DS 1 01/19/24 11:01 DS Document 01/26/24 10:34 KW gj 01/26/24 10:53 KW 01/05/24 01/19/24 01/26/24 10:41 10:59 10:34 Wound Center Nurse 1 13-right dorsal foot -Current Size (cm) - Length 0.8 -Current Size (cm) - Width 1.4 -Current Size (cm) - Depth 0.1 -Total Square Cm 1.12 -Date of Last Picture (Recall this 01/26/24 field) -Exudate Amt Small -Exudate Type Serosanguineous -Wound Margin Distinct, Outline Attached -Granulation Amt Large (67-100%) -Granulation Quality [place] -Necrosis Amt Small (1-33%) -Necrotic Tissue Type Adherent Slough -Texture (Yuliet-wound Skin Appearance) Assessed -Moisture (Yuliet-wound Skin Appearance) Maceration -Color (Yuliet-wound Skin Appearance) Assessed -Temperature ([place]ul[place]-wound Skin No Abnormality Appearance) (Pt Warm) -Tenderness on Palpation (Yuliet-wound No Skin Appearance) -Ulcer Cleansing Soap and Water -Foul Odor after Cleansing No -Anesthetic Used 5% Lidocaine Gel 7-right plantar foot -Current Size (cm) - Length 1 0.1 1 -Current Size (cm) - Width 1.5 0.1 1.5 -Current Size (cm) - Depth 0.3 0.1 0.3 -Total Square Cm 1.5 0.01 1.5 -Date of Last Picture (Recall this 01/05/24 01/26/24 field) -Photo Taken No -Exudate Amt Small Small -Exudate Type Serosanguineous Serosanguineous -Wound Margin Distinct, Distinct, Distinct, Outline Outline Outline Attached Attached Attached -Granulation Amt Large (67-100%) Small (1-33%) Large (67-100%) -Granulation Quality [place] -Slough/Fibrin Yes -Necrosis Amt Small (1-33%) Medium (34-66%) Small (1-33%) -Necrotic Tissue Type Adherent Slough Adherent Slough -Texture (Yuliet-wound Skin Appearance) Assessed Assessed Assessed -Moisture (Yuliet-wound Skin Appearance) Maceration,Dry/ Assessed Assessed, Scaly Maceration -Color (Yuliet-wound Skin Appearance) Assessed Assessed Assessed -Temperature (Yuliet-wound Skin No Abnormality No Abnormality No Abnormality Appearance) (Pt Warm) (Pt Warm) (Pt Warm) -Tenderness on Palpation (Yuliet-wound No No No Skin Appearance) -Ulcer Cleansing Rinsed/ Rinsed/ Soap and Water Irrigated with Irrigated with Saline Saline -Foul Odor after Cleansing No No -Anesthetic Used 5% Lidocaine 5% Lidocaine 5% Lidocaine Gel Gel Gel WC - Nurse 2 - General Ulcer CM Notes Start: 01/05/24 10:41 Freq: Status: Active Protocol: Activity Type Activity Date Activity User E-sign Co-sign Detail Recorded Client Recorded Date Recorded By Document 01/05/24 11:07 DS 1 01/05/24 11:08 DS Document 01/19/24 11:25 0000 01/19/24 11:27 JF Document 01/26/24 11:03 0000 01/26/24 11:05 JF 01/05/24 01/19/24 01/26/24 11:07 11:25 11:03 Wound Center Nurse 2 13-right dorsal foot -Time 11:26 11:04 -Correct Patient Yes Yes -Correct Side, Site, Position Yes Yes -Correct Procedure Yes Yes -Procedure Performed Yes Yes -Type of Procedure Debridement Debridement -Clinical Debridement Subcutaneous Subcutaneous -Tissue Removed Subcutaneous Subcutaneous -Post Debridement (cm) - Length 1.2 -Post Debridement (cm) - Width 0.6 -Post Debridement (cm) - Depth 0.3 -Total Square (Post) (cm) 0.72 -Area of Debridement (cm) - Length 1.2 -Area of Debridement (cm) - Width 0.6 -Total Square (Area) (cm) 0.72 -Tunneling No No -Undermining/Tunneling No No -Circular Undermining No No -Wound/Ulcer Outcome Not Healed Not Healed -Ulcer Cleansing Rinsed/ Rinsed/ Irrigated with Irrigated with Saline Saline -Foul Odor after Cleansing No No -Bioengineered Tissue No No -Bleeding Controlled with Pressure Pressure -Treatment Response Procedure Procedure Tolerated Well Tolerated Well -Offloading No No -Debridement - Subq, 1st 20sq cm Yes Yes 7-right plantar foot -Time 11:07 11:26 11:05 -Correct Patient Yes Yes Yes -Correct Side, Site, Position Yes Yes Yes -Correct Procedure Yes Yes Yes -Procedure Performed Yes Yes Yes -Type of Procedure Debridement Debridement Debridement -Clinical Debridement Subcutaneous Subcutaneous Subcutaneous -Tissue Removed Subcutaneous Subcutaneous Subcutaneous -Post Debridement (cm) - Length 3.8 3.0 1.0 -Post Debridement (cm) - Width 0.7 1.5 1.3 -Post Debridement (cm) - Depth 0.2 0.2 0.1 -Total Square (Post) (cm) 2.66 4.50 1.30 -Area of Debridement (cm) - Length 3.8 3.0 1.0 -Area of Debridement (cm) - Width 0.7 1.5 1.3 -Total Square (Area) (cm) 2.66 4.50 1.30 -Tunneling No No No -Undermining/Tunneling No No No -Circular Undermining No No No -Wound/Ulcer Outcome Not Healed Not Healed Not Healed -Ulcer Cleansing Rinsed/ Rinsed/ Rinsed/ Irrigated with Irrigated with Irrigated with Saline Saline Saline -Foul Odor after Cleansing No No -Bioengineered Tissue No No -Bleeding Controlled with Pressure Pressure Pressure -Treatment Response Procedure Procedure Procedure Tolerated Well Tolerated Well Tolerated Well -Offloading No No -Type of Offloading Surgical Shoe -Debridement - Subq, 1st 20sq cm Yes No No Pain Scale: 0-10 Numeric Is Patient Pain Free? Yes Yes Yes WC - Nurse 3 - General Ulcer D/C NN Start: 01/05/24 10:41 Freq: Status: Active Protocol: Activity Type Activity Date Activity User E-sign Co-sign Detail Recorded Client Recorded Date Recorded By Document 01/05/24 11:21 KW l 01/05/24 11:44 KW Document 01/19/24 16:44 RB wound 01/19/24 16:45 RB 01/05/24 01/19/24 11:21 16:44 Wound Care Center Nurse 3 13-right dorsal foot -Ulcer Cleansing betadine -Primary Dressing Covered/Secured with Dry Gauze,Dry Gauze & Roll Gauze,Secured with Tape 7-right plantar foot -Ulcer Cleansing betadine -Other Dressing dakins soaked gauze -Primary Dressing Covered/Secured with Dry Gauze & Dry Gauze,Dry Roll Gauze, Gauze & Roll Secured with Gauze,Secured Tape with Tape Right -Other cole bilateral -Compression Wrap Cole Wrap Treatment Response Procedure Tolerated Well Pain Scale: 0-10 Numeric Is Patient Pain Free? Yes Yes WC - Visit Discharge Discharge Condition Stable Stable Ambulatory Status Wheelchair Wheelchair Transportation Private Auto Medication Reconcilliation completed & No No provided to patient/care provider Clinical Summary of Care Provided Yes Yes Assessment/Plan Assessment/Plan (1) Venous insufficiency (chronic) (peripheral): CODE(S): I87.2 - Venous insufficiency (chronic) (peripheral) PLAN: Exam performed Arterial and venous studies reviewed Patient on Coumadin Patient underwent recent venous procedure per Dr. Arvizu. This will likely help with patient's edema and wound healing moving forward. Today right foot wound was debrided excisionally down to including level of subcutaneous tissue of all nonviable tissue using 5mm dermal curette. No anesthesia due to neuropathy. Hemostasis with compression. Patient tolerated procedure well. Pre and postdebridement measurements documented nursing notes. No recurrent infection. Will plan for daily betadine wet to dry dressing changes with overlying dry sterile dressing and Tubigrip. [facility] No weightbearing restrictions at current. This may change pending patient's healing status. Due to deformity advanced age, will consider BKA if there is any development of a life or limb threatening infection. At current we will continue with local wound care. recent cultures + for E. Faeacalis, Staph Simulans, Pseudomonas Aeruginosa, proteus mirablis, serratia marscescens Rx for augmentin/cipro (2) Other specified peripheral vascular diseases: CODE(S): I73.89 - Other specified peripheral vascular diseases (3) Cellulitis of right lower limb: CODE(S): L03.115 - Cellulitis of right lower limb (4) Non-pressure 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 foot with fat layer exposed: CODE(S): L97.512 - Non-pressure 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 foot with fat layer exposed (5) Non-pressure chronic ulcer of other part of left foot with fat layer exposed: CODE(S): L97.522 - Non-pressure chronic ulcer of other part of left foot with fat layer exposed (6) Tinea unguium: CODE(S): B35.1 - Tinea unguium (7) Pain in right toe(s): CODE(S): M79.674 - Pain in right toe(s) (8) Pain in left toe(s): CODE(S): M79.675 - Pain in left toe(s)
--- NOTE | 2024-01-29 08:57 | WC ---
PHOTO 01/26/24 RT PLANTAR
--- NOTE | 2024-01-29 08:58 | WC ---
PHOTO 01/26/24 RIGHT DORSAL FOOT
== END 2024-01-27 23:59 ==
LOC: WC 10:30
PROVIDERS: PCP Family Medicine; Referring Provider Family Medicine; Visit Provider Podiatrist
DX: I87.2 Venous insufficiency (chronic) (peripheral) (principal); L97.512 Non-pressure 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 foot with fat layer exposed; L97.522 Non-pressure chronic ulcer of other part of left foot with fat layer exposed; Q66.11 Congenital talipes calcaneovarus, right foot; M24.561 Contracture, right knee; G62.9 Polyneuropathy, unspecified; R53.1 Weakness; I73.89 Other specified peripheral vascular diseases; L03.115 Cellulitis of right lower limb; B35.1 Tinea unguium; M79.674 Pain in right toe(s); M79.675 Pain in left toe(s)
CPT/HCPCS: 11042; 87070; 87075; 87077; 87186; 87205

== ENCOUNTER → 2024-01-28 | Outpatient (CLI) | payer MEDICARE, BC, SELFPAY ==
--- NOTE | 2024-01-28 09:05 | AAVD_ITS ---
Reason For Study: HX BLE Iliac Stent Inferior Vena Cava Proximal inferior vena cava measures 1.12 x 1.36 cm. in the cross-sectional axis. Proximal inferior vena cava measures 1.49 cm. in the longitudinal axis. Mid inferior vena cava measures 0.84 x 1.30 cm. in the cross-sectional axis. Mid inferior vena cava measures 0.83 cm. in the longitudinal axis. Distal inferior vena cava measures 1.29 x 1.27 cm. in the cross-sectional axis. Distal inferior vena cava measures 1.21 cm. in the longitudinal axis. The inferior vena cava has spontaneous, phasic flow throughout. Left Common Iliac Vein Left common iliac vein measures 1.37 x 1.38 cm. in the cross-sectional axis. Left common iliac vein measures 1.33 cm. in the longitudinal axis. The left common iliac vein has spontaneous, phasic flow throughout. Stent Noted. Right Common Iliac Vein Right common iliac vein measures 1.31 x 1.28 cm. in the cross-sectional axis. Right common iliac vein measures 1.34 cm. in the longitudinal axis. The right common iliac vein has spontaneous, phasic flow throughout. Stent Noted. VL/Abd Aortic/IVC Duplex scan Interpretation Summary Patent inferior vena cava and bilateral iliac vein stents with normal venous fl ow pattern. Ordering Physician: Juliet Christopher Referring Physician: Jabrai Alfonso Performed By: Colby Jerome RVT
== END | disposition home or self-care (01) ==
LOC: CVS 09:01
PROVIDERS: PCP Family Medicine; Referring Provider Physician Assistant; Visit Provider Physician Assistant
DX: Z48.812 Encounter for surgical aftercare following surgery on the circulatory system (principal)
CPT/HCPCS: 93978

== ENCOUNTER 2024-02-23 10:45 | Outpatient (RCR) | payer MEDICARE, BC, SELFPAY ==
[2024-01-28 00:12] VITALS: BP 124/76; PULSE 63; RESP 18; TEMP 36.2
[2024-02-02 10:45] VITALS: BP 95/59; PULSE 71; RESP 18; TEMP 36.4
--- NOTE | 2024-02-02 11:25 | PCM.WC.PN ---
History of Present Illness Date of Service: 02/02/24 Chief Complaint: Nonhealing bilateral lower extremity ulcers History of Wound: Mr Wilson is an 82-year-old who [facility] to nonhealing bilateral lower extremity ulcers. Has had recurrent ulcerations for over 10 years with most recent episode being more severe late last year. 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 No changes today. Patient denies any fever chills nausea vomiting chest pain calf pain at current. Patient resides in custodial facility. Patient receives daily Betadine DSD bilaterally. Patient has a minimally ambulatory status due to deformity and weakness. Patient states that he does ambulate assisted by walker within the confines of his room to the bathroom. States he does this on a daily basis. No other complaints. Progress of Wound: Patient has right plantar foot ulcer which does appear smaller in size. There is no maceration present. Objective Data Objective Data Vital Signs: Vital Signs Temp Pulse Resp BP O2 Del Method 97.6 F L 71 18 95/59 L Room Air 02/02/24 10:45 02/02/24 10:45 02/02/24 10:45 02/02/24 10:45 02/02/24 10:45 Oxygen Delivery Method Room Air Charges/Coding Procedures Integumentary [id number]: [id number] Samina subq tissue 20 sq cm/< Debridement Note Debridement Note Wound debrided: #7 Plantar foot ulcer Laterality: Right Type of Debridement: Excisional debridement Anesthesia Used: 5% Lidocaine Gel Depth: Down to and including healthy tissue and in the subcutaneous layer Percentage of wound debrided: 100 Instrument Used: 3mm curette Tissue Removed: Nonviable tissue and slough Severity: Fat Layer Exposed Amount of bleeding with debridement: Mild Bleeding Controlled with: Pressure and Compression and gauze Post-Debridement Measurements and Additional Note: Post-Debridement Measurements/Treatment - Nurse 1 - General Ulcer Assessment Start: 02/02/24 10:45 Freq: Status: Active Protocol: MARTA Activity Type Activity Date Activity User E-sign Co-sign Detail Recorded Client Recorded Date Recorded By Document 02/02/24 10:45 KW feroz 02/02/24 10:58 KW 02/02/24 10:45 - Today's Visit Information Type of service Follow-up Visit (Physician/ELECTRICAL APPLIANCE MECHANIC ) Arrival Mode Wheelchair Patient Identification Verified (Name & Yes ) Vital Signs Temperature (97.8 F-99.1 F) 97.6 F L Temperature Source Temporal Pulse Rate (60-100) 71 Pulse Location Monitor Respiratory Rate (12-18) 18 Respiratory rate source Observation Oxygen Delivery Method Room Air Blood Pressure (90/60-120/80) 95/59 L Blood Pressure Mean (mm Hg) 71 Source Monitor Position Sitting Blood Pressure Location Left Forearm Pain Scale: 0-10 Numeric Is Patient Pain Free? Yes - Nurse 1 - General Ulcer Measurement Start: 02/02/24 10:45 Freq: Status: Active Protocol: Activity Type Activity Date Activity User E-sign Co-sign Detail Recorded Client Recorded Date Recorded By Document 02/02/24 10:45 KW kl 02/02/24 10:58 KW 02/02/24 10:45 Wound Center Nurse 1 13-right dorsal foot -Current Size (cm) - Length 0.1 -Current Size (cm) - Width 0.1 -Current Size (cm) - Depth 0.1 -Total Square Cm 0.01 -Date of Last Picture (Recall this 02/02/24 field) -Texture (Yuliet-wound Skin Appearance) Assessed -Moisture (Yuliet-wound Skin Appearance) Assessed,Dry/ Scaly -Color (Yuliet-wound Skin Appearance) Assessed -Temperature (Yuliet-wound Skin No Abnormality Appearance) (Pt Warm) -Tenderness on Palpation (Yuliet-wound No Skin Appearance) -Ulcer Cleansing Soap and Water -Foul Odor after Cleansing No 7-right plantar foot -Current Size (cm) - Length 0.4 -Current Size (cm) - Width 0.7 -Current Size (cm) - Depth 0.1 -Total Square Cm 0.28 -Date of Last Picture (Recall this 02/02/24 field) -Exudate Amt Small -Exudate Type Serosanguineous -Wound Margin Distinct, Outline Attached -Granulation Amt Large (67-100%) -Granulation Quality [place] -Texture (Yuliet-wound Skin Appearance) Assessed -Moisture (Yuliet-wound Skin Appearance) Assessed, Maceration,Dry/ Scaly -Color (Yuliet-wound Skin Appearance) Assessed -Temperature (Yuliet-wound Skin No Abnormality Appearance) (Pt Warm) -Tenderness on Palpation (Yuliet-wound No Skin Appearance) -Ulcer Cleansing Soap and Water -Foul Odor after Cleansing No -Anesthetic Used 5% Lidocaine Gel WC - Nurse 2 - General Ulcer CM Notes Start: 02/02/24 10:45 Freq: Status: Active Protocol: Activity Type Activity Date Activity User E-sign Co-sign Detail Recorded Client Recorded Date Recorded By Document 02/02/24 11:03 JF 0000 02/02/24 11:06 JF 02/02/24 11:03 Wound Center Nurse 2 13-right dorsal foot -Correct Patient No -Correct Side, Site, Position No -Correct Procedure No -Procedure Performed No -Post Debridement (cm) - Length 0 -Post Debridement (cm) - Width 0 -Post Debridement (cm) - Depth 0 -Total Square (Post) (cm) 0 -Area of Debridement (cm) - Length 0 -Area of Debridement (cm) - Width 0 -Total Square (Area) (cm) 0 -Wound/Ulcer Outcome Healed- Epithelialized 7-right plantar foot -Time 11:03 -Correct Patient Yes -Correct Side, Site, Position Yes -Correct Procedure Yes -Procedure Performed Yes -Type of Procedure Debridement -Clinical Debridement Subcutaneous -Tissue Removed Subcutaneous -Post Debridement (cm) - Length 0.7 -Post Debridement (cm) - Width 1.2 -Post Debridement (cm) - Depth 0.3 -Total Square (Post) (cm) 0.84 -Area of Debridement (cm) - Length 0.7 -Area of Debridement (cm) - Width 1.2 -Total Square (Area) (cm) 0.84 -Tunneling No -Undermining/Tunneling No -Circular Undermining No -Wound/Ulcer Outcome Not Healed -Ulcer Cleansing Rinsed/ Irrigated with Saline -Foul Odor after Cleansing No -Bioengineered Tissue No -Bleeding Controlled with Pressure -Treatment Response Procedure Tolerated Well -Offloading No -Debridement - Subq, 1st 20sq cm Yes Pain Scale: 0-10 Numeric Is Patient Pain Free? Yes Assessment/Plan Assessment/Plan (1) Venous insufficiency (chronic) (peripheral): CODE(S): I87.2 - Venous insufficiency (chronic) (peripheral) (2) Other specified peripheral vascular diseases: CODE(S): I73.89 - Other specified peripheral vascular diseases (3) Cellulitis of right lower limb: CODE(S): L03.115 - Cellulitis of right lower limb (4) Non-pressure 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 foot with fat layer exposed: CODE(S): L97.512 - Non-pressure 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 foot with fat layer exposed (5) Non-pressure chronic ulcer of other part of left foot with fat layer exposed: CODE(S): L97.522 - Non-pressure chronic ulcer of other part of left foot with fat layer exposed (6) Tinea unguium: CODE(S): B35.1 - Tinea unguium (7) Pain in right toe(s): CODE(S): M79.674 - Pain in right toe(s) (8) Pain in left toe(s): CODE(S): M79.675 - Pain in left toe(s) PLAN: Plan Courtesy visit for Dr. Anna. Patient on Coumadin Patient underwent recent venous procedure per Dr. Arvizu. This will likely help with patient's edema and wound healing moving forward. Wound care -right plantar ulcer will continue Betadine and top with gauze daily. No weightbearing restrictions at current. This may change pending patient's healing status. recent cultures + for E. Faeacalis, Staph Simulans, Pseudomonas Aeruginosa, proteus mirablis, serratia marscescens Patient states he continues to be on Augmentin and Cipro. He should complete these in the next day or so. Follow-up [address] Anna.
--- NOTE | 2024-02-03 08:46 | WC ---
PHOTO RIGHT PLANTAR 02/02/24
[2024-02-09 10:48] VITALS: BP 114/66; PULSE 66; RESP 18; TEMP 36.4
--- NOTE | 2024-02-09 11:07 | PCM.WC.PN ---
History of Present Illness Date of Service: 02/09/24 Chief Complaint: Nonhealing bilateral lower extremity ulcers History of Wound: Mr Wilson is an 82-year-old who was brought in here from his [facility] due to nonhealing bilateral lower extremity ulcers. Has had recurrent ulcerations for over 10 years with most recent episode being more severe late last year. 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 No changes today. Patient denies any fever chills nausea vomiting chest pain calf pain at current. Patient resides in long-term facility. Patient receives daily Betadine DSD bilaterally. Patient has a minimally ambulatory status due to deformity and weakness. Patient states that he does ambulate assisted by walker within the confines of his room to the bathroom. States he does this on a daily basis. No other complaints. Progress of Wound: Patient has right plantar foot ulcer which does appear smaller in size. There is no maceration present. Objective Data Objective Data Vital Signs: Vital Signs Temp Pulse Resp BP O2 Del Method 97.5 F L 66 18 114/66 Room Air 02/09/24 10:48 02/09/24 10:48 02/09/24 10:48 02/09/24 10:48 02/09/24 10:48 Oxygen Delivery Method Room Air Physical Exam Narrative Vascular: Dorsalis pedis posterior tibial pulses palpable to bilateral lower extremity. Atrophic skin changes such as shiny taut appearance noted with absent digital hair growth. Patient does have +1 pitting edema to bilateral lower extremity with hemosiderin deposits noted. Neurologic: Light touch protective sensation diminished bilateral feet. Dermatologic: Healed medial right ankle and lateral. Healed dorsal foot wound right foot. Significantly improved right plantar foot wound, slight maceration today. healed left medial ankle wound. All wounds demonstrate clean granular bases with no deep probing undermining or signs of infection. 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 This appears to contribute to wound formation and poor ambulatory status patient. Patient has diffuse muscular weakness 4 out of 5 to bilateral lower extremity compartments. On the left lower extremity patient has an equinus contracture to the hindfoot. Debridement Note Debridement Note Post-Debridement Measurements and Additional Note: Post-Debridement Measurements/Treatment WC - Nurse 1 - General Ulcer Assessment Start: 02/02/24 10:45 Freq: Status: Active Protocol: MARTA Activity Type Activity Date Activity User E-sign Co-sign Detail Recorded Client Recorded Date Recorded By Document 02/02/24 10:45 KW feroz 02/02/24 10:58 KW Document 02/09/24 10:48 KW priscilla 02/09/24 11:03 KW 02/02/24 02/09/24 10:45 10:48 WC - Today's Visit Information Type of service Follow-up Visit Follow-up Visit (Physician/ORTHOPAEDIC TECHNOLOGIST (Physician/ORTHOPAEDIC TECHNOLOGIST ) ) Arrival Mode Wheelchair Wheelchair Patient Identification Verified (Name & Yes Yes ) Vital Signs Temperature (97.8 F-99.1 F) 97.6 F L 97.5 F L Temperature Source Temporal Temporal Pulse Rate (60-100) 71 66 Pulse Location Monitor Monitor Respiratory Rate (12-18) 18 18 Respiratory rate source Observation Observation Oxygen Delivery Method Room Air Room Air Blood Pressure (90/60-120/80) 95/59 L 114/66 Blood Pressure Mean (mm Hg) 71 82 Source Monitor Monitor Position Sitting Sitting Blood Pressure Location Left Forearm Right Forearm History Since Last Visit- (Skip if this is Patient's initial visit) Have you changed medications since your No last visit? Any new allergies or adverse reactions No Had a fall/change in ADL's that may No increase risk of falls Signs or symptoms of abuse and/or No neglect since last visit Have you been in the hospital since your No last visit? Has dressing in place as prescribed Yes Has compression in place as prescribed Yes Has offloadiing in place as prescribed Yes Experienced any changes in pain level or No management Left Footwear Surgical Shoe with pressure relief insole Right Footwear Surgical Shoe with pressure relief insole Pain Scale: 0-10 Numeric Is Patient Pain Free? Yes Yes SASHA Holden Nurse 1 - General Ulcer Measurement Start: 02/02/24 10:45 Freq: Status: Active Protocol: Activity Type Activity Date Activity User E-sign Co-sign Detail Recorded Client Recorded Date Recorded By Document 02/02/24 10:45 KW kl 02/02/24 10:58 KW Document 02/09/24 10:48 KW gfj 02/09/24 11:03 KW 02/02/24 02/09/24 10:45 10:48 Wound Center Nurse 1 13-right dorsal foot -Current Size (cm) - Length 0.1 -Current Size (cm) - Width 0.1 -Current Size (cm) - Depth 0.1 -Total Square Cm 0.01 -Date of Last Picture (Recall this 02/02/24 field) -Texture (Yuliet-wound Skin Appearance) Assessed -Moisture (Yuliet-wound Skin Appearance) Assessed,Dry/ Scaly -Color (Yuliet-wound Skin Appearance) Assessed -Temperature (Yuliet-wound Skin No Abnormality Appearance) (Pt Warm) -Tenderness on Palpation (Yuliet-wound No Skin Appearance) -Ulcer Cleansing Soap and Water -Foul Odor after Cleansing No 7-right plantar foot -Current Size (cm) - Length 0.4 0.5 -Current Size (cm) - Width 0.7 0.3 -Current Size (cm) - Depth 0.1 0.2 -Total Square Cm 0.28 0.15 -Date of Last Picture (Recall this 02/02/24 02/09/24 field) -Exudate Amt Small -Exudate Type Serosanguineous -Wound Margin Distinct, Outline Attached -Granulation Amt Large (67-100%) Large (67-100%) -Granulation Quality [place] -Texture (Yuliet-wound Skin Appearance) Assessed Assessed -Moisture (Yuliet-wound Skin Appearance) Assessed, Assessed Maceration,Dry/ Scaly -Color (Yuliet-wound Skin Appearance) Assessed Assessed -Temperature (Yuliet-wound Skin No Abnormality No Abnormality Appearance) (Pt Warm) (Pt Warm) -Tenderness on Palpation (Yuliet-wound No Skin Appearance) -Ulcer Cleansing Soap and Water Soap and Water -Foul Odor after Cleansing No No -Anesthetic Used 5% Lidocaine 5% Lidocaine Gel Gel WC - Nurse 2 - General Ulcer CM Notes Start: 02/02/24 10:45 Freq: Status: Active Protocol: Activity Type Activity Date Activity User E-sign Co-sign Detail Recorded Client Recorded Date Recorded By Document 02/02/24 11:03 JF 0000 02/02/24 11:06 JF 02/02/24 11:03 Wound Center Nurse 2 13-right dorsal foot -Correct Patient No -Correct Side, Site, Position No -Correct Procedure No -Procedure Performed No -Post Debridement (cm) - Length 0 -Post Debridement (cm) - Width 0 -Post Debridement (cm) - Depth 0 -Total Square (Post) (cm) 0 -Area of Debridement (cm) - Length 0 -Area of Debridement (cm) - Width 0 -Total Square (Area) (cm) 0 -Wound/Ulcer Outcome Healed- Epithelialized 7-right plantar foot -Time 11:03 -Correct Patient Yes -Correct Side, Site, Position Yes -Correct Procedure Yes -Procedure Performed Yes -Type of Procedure Debridement -Clinical Debridement Subcutaneous -Tissue Removed Subcutaneous -Post Debridement (cm) - Length 0.7 -Post Debridement (cm) - Width 1.2 -Post Debridement (cm) - Depth 0.3 -Total Square (Post) (cm) 0.84 -Area of Debridement (cm) - Length 0.7 -Area of Debridement (cm) - Width 1.2 -Total Square (Area) (cm) 0.84 -Tunneling No -Undermining/Tunneling No -Circular Undermining No -Wound/Ulcer Outcome Not Healed -Ulcer Cleansing Rinsed/ Irrigated with Saline -Foul Odor after Cleansing No -Bioengineered Tissue No -Bleeding Controlled with Pressure -Treatment Response Procedure Tolerated Well -Offloading No -Debridement - Subq, 1st 20sq cm Yes Pain Scale: 0-10 Numeric Is Patient Pain Free? Yes - Nurse 3 - General Ulcer D/C NN Start: 02/02/24 10:45 Freq: Status: Active Protocol: Activity Type Activity Date Activity User E-sign Co-sign Detail Recorded Client Recorded Date Recorded By Document 02/02/24 11:36 RB wound 02/02/24 11:37 RB 02/02/24 11:36 Wound Care Center Nurse 3 7-right plantar foot -Ulcer Cleansing betadine -Other Dressing betadine gauze between toes -Primary Dressing Covered/Secured with Dry Gauze,Dry Gauze & Roll Gauze,Secured with Tape bilateral -Other bridgette Treatment Response Procedure Tolerated Well Pain Scale: 0-10 Numeric Is Patient Pain Free? Yes - Visit Discharge Discharge Condition Stable Ambulatory Status Wheelchair Transportation [place] Medication Reconcilliation completed & No provided to patient/care provider Clinical Summary of Care Provided Yes Assessment/Plan Assessment/Plan (1) Venous insufficiency (chronic) (peripheral): CODE(S): I87.2 - Venous insufficiency (chronic) (peripheral) (2) Other specified peripheral vascular diseases: CODE(S): I73.89 - Other specified peripheral vascular diseases (3) Cellulitis of right lower limb: CODE(S): L03.115 - Cellulitis of right lower limb (4) Non-pressure 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 foot with fat layer exposed: CODE(S): L97.512 - Non-pressure 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 foot with fat layer exposed (5) Non-pressure chronic ulcer of other part of left foot with fat layer exposed: CODE(S): L97.522 - Non-pressure chronic ulcer of other part of left foot with fat layer exposed (6) Tinea unguium: CODE(S): B35.1 - Tinea unguium (7) Pain in right toe(s): CODE(S): M79.674 - Pain in right toe(s) (8) Pain in left toe(s): CODE(S): M79.675 - Pain in left toe(s) PLAN: Plan Exam performed Right foot wound plantarly excisionally debrided down to including level subcutaneous tissue of all nonviable tissue using dermal curette. Patient tolerated procedure well. Topical anesthesia used. Hemostasis obtained with light compression. Pre and postdebridement measurements documented nursing notes. Wound care -right plantar ulcer will continue Betadine and top with gauze daily. No weightbearing restrictions at current. This may change pending patient's healing status. No additional antibiotics at this time Follow-up in 2 weeks
--- NOTE | 2024-02-18 11:57 | WC ---
PHOTO 02/09/24 RIGHT PLANTAR FOOT
[2024-02-23 10:48] VITALS: BP 108/58; PULSE 60; RESP 18; TEMP 35.8
--- NOTE | 2024-02-23 11:29 | PCM.WC.PN ---
History of Present Illness Date of Service: 02/23/24 Chief Complaint: Nonhealing bilateral lower extremity ulcers History of Wound: Mr Wilson is an 82-year-old who was brought in here from his [facility] due to nonhealing bilateral lower extremity ulcers. Has had recurrent ulcerations for over 10 years with most recent episode being more severe late last year. 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 No changes today. Patient denies any fever chills nausea vomiting chest pain calf pain at current. Patient resides in [facility] facility. Patient receives daily Betadine DSD bilaterally. Patient has a minimally ambulatory status due to deformity and weakness. Patient states that he does ambulate assisted by walker within the confines of his room to the bathroom. States he does this on a daily basis. No other complaints. Progress of Wound: Patient has right plantar foot ulcer which does appear smaller in size. There is no maceration present. Objective Data Objective Data Vital Signs: Vital Signs Temp Pulse Resp BP O2 Del Method 96.5 F L 60 18 108/58 L Room Air 02/23/24 10:48 02/23/24 10:48 02/23/24 10:48 02/23/24 10:48 02/23/24 10:48 Oxygen Delivery Method Room Air Physical Exam Narrative Vascular: Dorsalis pedis posterior tibial pulses palpable to bilateral lower extremity. Atrophic skin changes such as shiny taut appearance noted with absent digital hair growth. Patient does have +1 pitting edema to bilateral lower extremity with hemosiderin deposits noted. Neurologic: Light touch protective sensation diminished bilateral feet. Dermatologic: Healed medial right ankle and lateral. Healed dorsal foot wound right foot. Significantly improved right plantar foot wound, slight maceration today. healed left medial ankle wound. All wounds demonstrate clean granular bases with no deep probing undermining or signs of infection. 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 This appears to contribute to wound formation and poor ambulatory status patient. Patient has diffuse muscular weakness 4 out of 5 to bilateral lower extremity compartments. On the left lower extremity patient has an equinus contracture to the hindfoot. Debridement Note Debridement Note Post-Debridement Measurements and Additional Note: Post-Debridement Measurements/Treatment - Nurse 1 - General Ulcer Assessment Start: 02/02/24 10:45 Freq: Status: Active Protocol: WC.LOWEXT Activity Type Activity Date Activity User E-sign Co-sign Detail Recorded Client Recorded Date Recorded By Document 02/02/24 10:45 KW kl 02/02/24 10:58 KW Document 02/09/24 10:48 KW gfj 02/09/24 11:03 KW Document 02/23/24 10:48 KW [id number] 02/23/24 11:01 KW 02/02/24 02/09/24 02/23/24 10:45 10:48 10:48 - Today's Visit Information Type of service Follow-up Visit Follow-up Visit Follow-up Visit (Physician/[facility] (Physician/[facility] (Physician/[facility] ) ) ) Arrival Mode Wheelchair Wheelchair Wheelchair Patient Identification Verified (Name & Yes Yes Yes ) Vital Signs Temperature (97.8 F-99.1 F) 97.6 F L 97.5 F L 96.5 F L Temperature Source Temporal Temporal Temporal Pulse Rate (60-100) 71 66 60 Pulse Location Monitor Monitor Monitor Respiratory Rate (12-18) 18 18 18 Respiratory rate source Observation Observation Observation Oxygen Delivery Method Room Air Room Air Room Air Blood Pressure (90/60-120/80) 95/59 L 114/66 108/58 L Blood Pressure Mean (mm Hg) 71 82 74 Source Monitor Monitor Monitor Position Sitting Sitting Sitting Blood Pressure Location Left Forearm Right Forearm Right Forearm History Since Last Visit- (Skip if this is Patient's initial visit) Have you changed medications since your No No last visit? Any new allergies or adverse reactions No No Had a fall/change in ADL's that may No No increase risk of falls Signs or symptoms of abuse and/or No No neglect since last visit Have you been in the hospital since your No No last visit? Has dressing in place as prescribed Yes Yes Has compression in place as prescribed Yes Yes Has offloadiing in place as prescribed Yes Yes Experienced any changes in pain level or No No management Left Footwear Surgical Shoe Surgical Shoe with pressure with pressure relief insole relief insole Right Footwear Surgical Shoe Surgical Shoe with pressure with pressure relief insole relief insole Pain Scale: 0-10 Numeric Is Patient Pain Free? Yes Yes Yes WC - Nurse 1 - General Ulcer Measurement Start: 02/02/24 10:45 Freq: Status: Active Protocol: Activity Type Activity Date Activity User E-sign Co-sign Detail Recorded Client Recorded Date Recorded By Document 02/02/24 10:45 KW kl 02/02/24 10:58 KW Document 02/09/24 10:48 KW gfj 02/09/24 11:03 KW Document 02/23/24 10:48 KW [id number] 02/23/24 11:01 KW 02/02/24 02/09/24 02/23/24 10:45 10:48 10:48 Wound Center Nurse 1 13-right dorsal foot -Current Size (cm) - Length 0.1 -Current Size (cm) - Width 0.1 -Current Size (cm) - Depth 0.1 -Total Square Cm 0.01 -Date of Last Picture (Recall this 02/02/24 field) -Texture (Yuliet-wound Skin Appearance) Assessed -Moisture (Yuliet-wound Skin Appearance) Assessed,Dry/ Scaly -Color (Yuliet-wound Skin Appearance) Assessed -Temperature (Yuliet-wound Skin No Abnormality Appearance) (Pt Warm) -Tenderness on Palpation (Yuliet-wound No Skin Appearance) -Ulcer Cleansing Soap and Water -Foul Odor after Cleansing No 7-right plantar foot -Current Size (cm) - Length 0.4 0.5 2.5 -Current Size (cm) - Width 0.7 0.3 2 -Current Size (cm) - Depth 0.1 0.2 0.4 -Total Square Cm 0.28 0.15 5.0 -Date of Last Picture (Recall this 02/02/24 02/09/24 field) -Exudate Amt Small Small -Exudate Type Serosanguineous Serosanguineous -Wound Margin Distinct, Distinct, Outline Outline Attached Attached -Granulation Amt Large (67-100%) Large (67-100%) Large (67-100%) -Granulation Quality [place] -Necrosis Amt Small (1-33%) -Necrotic Tissue Type Adherent Slough -Texture (Yuliet-wound Skin Appearance) Assessed Assessed Assessed,Callus -Moisture (Yuliet-wound Skin Appearance) Assessed, Assessed Assessed, Maceration,Dry/ Maceration Scaly -Color (Yuliet-wound Skin Appearance) Assessed Assessed Assessed -Temperature (Yuliet-wound Skin No Abnormality No Abnormality No Abnormality Appearance) (Pt Warm) (Pt Warm) (Pt Warm) -Tenderness on Palpation (Yuliet-wound No No Skin Appearance) -Ulcer Cleansing Soap and Water Soap and Water Soap and Water -Foul Odor after Cleansing No No No -Anesthetic Used 5% Lidocaine 5% Lidocaine 5% Lidocaine Gel Gel Gel WC - Nurse 2 - General Ulcer CM Notes Start: 02/02/24 10:45 Freq: Status: Active Protocol: Activity Type Activity Date Activity User E-sign Co-sign Detail Recorded Client Recorded Date Recorded By Document 02/02/24 11:03 0000 02/02/24 11:06 Document 02/09/24 11:07 0000 02/09/24 11:08 Document 02/23/24 11:23 [id number] 02/23/24 11:25 02/02/24 02/09/24 02/23/24 11:03 11:07 11:23 Wound Center Nurse 2 13-right dorsal foot -Correct Patient No -Correct Side, Site, Position No -Correct Procedure No -Procedure Performed No -Post Debridement (cm) - Length 0 -Post Debridement (cm) - Width 0 -Post Debridement (cm) - Depth 0 -Total Square (Post) (cm) 0 -Area of Debridement (cm) - Length 0 -Area of Debridement (cm) - Width 0 -Total Square (Area) (cm) 0 -Wound/Ulcer Outcome Healed- Epithelialized 7-right plantar foot -Time 11:03 11:08 11:24 -Correct Patient Yes Yes Yes -Correct Side, Site, Position Yes Yes Yes -Correct Procedure Yes Yes Yes -Procedure Performed Yes Yes Yes -Type of Procedure Debridement Debridement Debridement -Clinical Debridement Subcutaneous Subcutaneous Subcutaneous -Tissue Removed Subcutaneous Subcutaneous Subcutaneous -Post Debridement (cm) - Length 0.7 1.0 2.5 -Post Debridement (cm) - Width 1.2 0.5 1.0 -Post Debridement (cm) - Depth 0.3 0.3 0.3 -Total Square (Post) (cm) 0.84 0.50 2.50 -Area of Debridement (cm) - Length 0.7 1.0 2.5 -Area of Debridement (cm) - Width 1.2 0.5 1.0 -Total Square (Area) (cm) 0.84 0.50 2.50 -Tunneling No No No -Undermining/Tunneling No No No -Circular Undermining No No No -Wound/Ulcer Outcome Not Healed Not Healed Not Healed -Ulcer Cleansing Rinsed/ Rinsed/ Rinsed/ Irrigated with Irrigated with Irrigated with Saline Saline Saline -Foul Odor after Cleansing No No No -Bioengineered Tissue No No No -Bleeding Controlled with Pressure Pressure Pressure -Treatment Response Procedure Procedure Procedure Tolerated Well Tolerated Well Tolerated Well -Offloading No No No -Debridement - Subq, 1st 20sq cm Yes Yes Yes Pain Scale: 0-10 Numeric Is Patient Pain Free? Yes Yes Yes - Nurse 3 - General Ulcer D/C NN Start: 02/02/24 10:45 Freq: Status: Active Protocol: Activity Type Activity Date Activity User E-sign Co-sign Detail Recorded Client Recorded Date Recorded By Document 02/02/24 11:36 RB wound 02/02/24 11:37 RB Document 02/09/24 11:09 0000 02/09/24 11:09 02/02/24 02/09/24 11:36 11:09 Wound Care Center Nurse 3 7-right plantar foot -Ulcer Cleansing betadine Rinsed/ Irrigated with Saline -Foul Odor after Cleansing No -Other Dressing betadine gauze between toes -Primary Dressing Covered/Secured with Dry Gauze,Dry Dry Gauze Gauze & Roll Gauze,Secured with Tape -Other Covering betadine bilateral -Compression Wrap Cole Wrap -Other cole Treatment Response Procedure Tolerated Well Pain Scale: 0-10 Numeric Is Patient Pain Free? Yes Yes - Visit Discharge Discharge Condition Stable Stable Ambulatory Status Wheelchair Ambulatory, Wheelchair Transportation [facility] Medication Reconcilliation completed & No Yes provided to patient/care provider Clinical Summary of Care Provided Yes Yes Assessment/Plan Assessment/Plan (1) Venous insufficiency (chronic) (peripheral): CODE(S): I87.2 - Venous insufficiency (chronic) (peripheral) (2) Other specified peripheral vascular diseases: CODE(S): I73.89 - Other specified peripheral vascular diseases (3) Cellulitis of right lower limb: CODE(S): L03.115 - Cellulitis of right lower limb (4) Non-pressure 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 foot with fat layer exposed: CODE(S): L97.512 - Non-pressure 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 foot with fat layer exposed (5) Non-pressure chronic ulcer of other part of left foot with fat layer exposed: CODE(S): L97.522 - Non-pressure chronic ulcer of other part of left foot with fat layer exposed (6) Tinea unguium: CODE(S): B35.1 - Tinea unguium (7) Pain in right toe(s): CODE(S): M79.674 - Pain in right toe(s) (8) Pain in left toe(s): CODE(S): M79.675 - Pain in left toe(s) PLAN: Plan Exam performed Right foot wound plantarly excisionally debrided down to including level subcutaneous tissue of all nonviable tissue using dermal curette. Patient tolerated procedure well. Topical anesthesia used. Hemostasis obtained with light compression. Pre and postdebridement measurements documented nursing notes. Wound care -right plantar ulcer will continue Betadine and top with gauze daily. No weightbearing restrictions at current. This may change pending patient's healing status. No additional antibiotics at this time Follow-up in 2 weeks
== END 2024-02-27 23:59 | disposition home or self-care (01) ==
LOC: WC 10:45
PROVIDERS: PCP Family Medicine; Referring Provider Family Medicine; Visit Provider Podiatrist
DX: I87.2 Venous insufficiency (chronic) (peripheral) (principal); L97.512 Non-pressure 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 foot with fat layer exposed; L97.522 Non-pressure chronic ulcer of other part of left foot with fat layer exposed; L03.115 Cellulitis of right lower limb; M79.675 Pain in left toe(s); M79.674 Pain in right toe(s); G62.9 Polyneuropathy, unspecified; I73.9 Peripheral vascular disease, unspecified; Q66.11 Congenital talipes calcaneovarus, right foot; R53.1 Weakness; B35.1 Tinea unguium
CPT/HCPCS: 11042

== ENCOUNTER 2024-03-22 10:45 | Outpatient (RCR) | payer MEDICARE, BC, SELFPAY ==
[2024-02-28 00:40] VITALS: BP 124/76; PULSE 63; RESP 18; TEMP 36.2
[2024-03-08 10:43] VITALS: BP 110/52; PULSE 77; RESP 18; TEMP 36.4
--- NOTE | 2024-03-08 11:43 | PN.PCM_ITS ---
History of Present Illness Date of Service: 02/23/24 Chief Complaint: Nonhealing bilateral lower extremity ulcers History of Wound: Mr Wilson is an 82-year-old who was [facility] in here [facility] due to right plantar foot wound. Has had recurrent ulcerations for over 10 years with most recent episode being more severe late last year. 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 No changes today. Patient denies any fever chills nausea vomiting chest pain calf pain at current. Patient resides in longterm facility. Patient receives daily Betadine DSD bilaterally. Patient has a minimally ambulatory status due to deformity and weakness. Patient states that he does ambulate assisted by walker within the confines of his room to the bathroom. States he does this on a daily basis. No other complaints. Progress of Wound: Patient has right plantar foot ulcer which does appear smaller in size. There is no maceration present. Objective Data Objective Data Vital Signs: Vital Signs Temp Pulse Resp BP O2 Del Method 97.5 F L 77 18 110/52 L Room Air 03/08/24 10:43 03/08/24 10:43 03/08/24 10:43 03/08/24 10:43 03/08/24 10:43 Oxygen Delivery Method Room Air Physical Exam Narrative Vascular: Dorsalis pedis posterior tibial pulses palpable to bilateral lower extremity. Atrophic skin changes such as shiny taut appearance noted with absent digital hair growth. Patient does have +1 pitting edema to bilateral lower extremity with hemosiderin deposits noted. Neurologic: Light touch protective sensation diminished bilateral feet. Dermatologic: Healed medial right ankle and lateral wounds. Healed dorsal foot wound right foot. Significantly improved right plantar foot wound, slight maceration today. healed left medial ankle wound. Right plantar foot wound demonstrate clean granular bases with no deep probing undermining or signs of infection. 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 This appears to contribute to wound formation and poor ambulatory status patient. Patient has diffuse muscular weakness 4 out of 5 to bilateral lower extremity compartments. On the left lower extremity patient has an equinus contracture to the hindfoot. Debridement Note Debridement Note Post-Debridement Measurements and Additional Note: Post-Debridement Measurements/Treatment - Nurse 1 - General Ulcer Assessment Start: 03/08/24 10:43 Freq: Status: Active Protocol: MARTA Activity Type Activity Date Activity User E-sign Co-sign Detail Recorded Client Recorded Date Recorded By Document 03/08/24 10:43 UT [id number] 03/08/24 11:01 UT 03/08/24 10:43 - Today's Visit Information Type of service Follow-up Visit (Physician/[facility] OUT [facility]IER ) Arrival Mode Wheelchair Accompanied by Violet Patient Identification Verified (Name & Yes ) Safety Precautions Fall Prevention Vital Signs Temperature (97.8 F-99.1 F) 97.5 F L Temperature Source Temporal Pulse Rate (60-100) 77 Pulse Location Monitor Respiratory Rate (12-18) 18 Respiratory rate source Observation Oxygen Delivery Method Room Air Blood Pressure (90/60-120/80) 110/52 L Blood Pressure Mean (mm Hg) 71 Source Monitor Position Sitting Blood Pressure Location Left Arm History Since Last Visit- (Skip if this is Patient's initial visit) Has dressing in place as prescribed Yes Has compression in place as prescribed Yes Has offloadiing in place as prescribed Yes Experienced any changes in pain level or Yes management Left Footwear Regular Shoe Right Footwear Regular Shoe Pain Scale: 0-10 Numeric Is Patient Pain Free? Yes - Nurse 1 - General Ulcer Measurement Start: 03/08/24 10:43 Freq: Status: Active Protocol: Activity Type Activity Date Activity User E-sign Co-sign Detail Recorded Client Recorded Date Recorded By Document 03/08/24 10:43 UT [id number] 03/08/24 11:01 UT 03/08/24 10:43 Wound Center Nurse 1 7-right plantar foot -Current Size (cm) - Length 2.9 -Current Size (cm) - Width 0.8 -Current Size (cm) - Depth 0.1 -Total Square Cm 2.32 -Photo Taken Yes -Epithelialization Large 67-100% -Tunneling No -Undermining/Tunneling No -Circular Undermining No -Exudate Amt Medium -Exudate Type Serosanguineous -Wound Margin Thickened -Granulation Amt Small (1-33%) -Granulation Quality Pale,[place] -Necrosis Amt Large (67-100%) -Necrotic Tissue Type Adherent Slough -Texture (Yuliet-wound Skin Appearance) Assessed -Moisture (Yuliet-wound Skin Appearance) Assessed -Color (Yuliet-wound Skin Appearance) Assessed -Temperature (Yuliet-wound Skin No Abnormality Appearance) (Pt Warm) -Tenderness on Palpation (Yuliet-wound No Skin Appearance) -Ulcer Cleansing Soap and Water -Foul Odor after Cleansing No -Anesthetic Used 5% Lidocaine Gel WC - Nurse 2 - General Ulcer CM Notes Start: 03/08/24 10:43 Freq: Status: Active Protocol: Activity Type Activity Date Activity User E-sign Co-sign Detail Recorded Client Recorded Date Recorded By Document 03/08/24 11:17 JUAN RAMON [id number] 03/08/24 11:18 JUAN RAMON 03/08/24 11:17 Wound Center Nurse 2 -Time 11:17 -Correct Patient Yes -Correct Side, Site, Position Yes -Correct Procedure Yes -Procedure Performed Yes -Type of Procedure Debridement -Clinical Debridement Subcutaneous -Tissue Removed Subcutaneous -Post Debridement (cm) - Length 2.5 -Post Debridement (cm) - Width 0.8 -Post Debridement (cm) - Depth 0.2 -Total Square (Post) (cm) 2.00 -Area of Debridement (cm) - Length 2.5 -Area of Debridement (cm) - Width 0.8 -Total Square (Area) (cm) 2.00 -Tunneling No -Undermining/Tunneling No -Circular Undermining No -Wound/Ulcer Outcome Not Healed -Ulcer Cleansing Rinsed/ Irrigated with Saline -Foul Odor after Cleansing No -Bioengineered Tissue No -Bleeding Controlled with Pressure -Treatment Response Procedure Tolerated Well -Offloading No -Debridement - Subq, 1st 20sq cm Yes Pain Scale: 0-10 Numeric Is Patient Pain Free? Yes Assessment/Plan Assessment/Plan (1) Venous insufficiency (chronic) (peripheral): CODE(S): I87.2 - Venous insufficiency (chronic) (peripheral) (2) Other specified peripheral vascular diseases: CODE(S): I73.89 - Other specified peripheral vascular diseases (3) Cellulitis of right lower limb: CODE(S): L03.115 - Cellulitis of right lower limb (4) Non-pressure 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 foot with fat layer exposed: CODE(S): L97.512 - Non-pressure 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 foot with fat layer exposed (5) Non-pressure chronic ulcer of other part of left foot with fat layer exposed: CODE(S): L97.522 - Non-pressure chronic ulcer of other part of left foot with fat layer exposed (6) Tinea unguium: CODE(S): B35.1 - Tinea unguium (7) Pain in right toe(s): CODE(S): M79.674 - Pain in right toe(s) (8) Pain in left toe(s): CODE(S): M79.675 - Pain in left toe(s) PLAN: Plan Exam performed Right foot wound plantarly excisionally debrided down to including level subcutaneous tissue of all nonviable tissue using dermal curette. Patient tolerated procedure well. Topical anesthesia used. Hemostasis obtained with light compression. Pre and postdebridement measurements documented nursing notes. Wound care -right plantar ulcer will continue Betadine to periwound area applied Joan, dry sterile dressing, Tubigrip?daily No weightbearing restrictions at current. This may change pending patient's healing status. No additional antibiotics at this time Follow-up in 2 weeks
--- NOTE | 2024-03-09 08:37 | WC ---
PHOTO 03/08/24 PLANTAR FOOT
[2024-03-22 10:50] VITALS: BP 138/58; PULSE 70; RESP 18; TEMP 36.6
--- NOTE | 2024-03-22 11:05 | PN.PCM_ITS ---
History of Present Illness Date of Service: 03/22/24 Chief Complaint: Nonhealing bilateral lower extremity ulcers History of Wound: Mr Wilson is an 82-year-old who was brought in here from his group home due to right plantar foot wound. Has had recurrent ulcerations for over 10 years with most recent episode being more severe late last year. 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 No changes today. Patient denies any fever chills nausea vomiting chest pain calf pain at current. [facility] Patient receives daily Betadine DSD bilaterally. Patient has a minimally ambulatory status due to deformity and weakness. Patient states that he does ambulate assisted by walker within the confines of his room to the bathroom. States he does this on a daily basis. No other complaints. Progress of Wound: Patient has right plantar foot ulcer which does appear smaller in size. There is no maceration present. Objective Data Objective Data Vital Signs: Vital Signs Temp Pulse Resp BP O2 Del Method 97.9 F 70 18 138/58 H Room Air 03/22/24 10:50 03/22/24 10:50 03/22/24 10:50 03/22/24 10:50 03/22/24 10:50 Oxygen Delivery Method Room Air Physical Exam Narrative Vascular: Dorsalis pedis posterior tibial pulses palpable to bilateral lower extremity. Atrophic skin changes such as shiny taut appearance noted with absent digital hair growth. Patient does have +1 pitting edema to bilateral lower extremity with hemosiderin deposits noted. Neurologic: Light touch protective sensation diminished bilateral feet. Dermatologic: Healed medial right ankle and lateral wounds. Healed dorsal foot wound right foot. Significantly improved right plantar foot wound, slight maceration today. healed left medial ankle wound. Right plantar foot wound demonstrate clean granular bases with no deep probing undermining or signs of infection. 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 This appears to contribute to wound formation and poor ambulatory status patient. Patient has diffuse muscular weakness 4 out of 5 to bilateral lower extremity compartments. On the left lower extremity patient has an equinus contracture to the hindfoot. Debridement Note Debridement Note Post-Debridement Measurements and Additional Note: Post-Debridement Measurements/Treatment - Nurse 1 - General Ulcer Assessment Start: 03/08/24 10:43 Freq: Status: Active Protocol: MARTA Activity Type Activity Date Activity User E-sign Co-sign Detail Recorded Client Recorded Date Recorded By Document 03/08/24 10:43 MT [id number] 03/08/24 11:01 MT Document 03/22/24 10:50 KW [id number] 03/22/24 10:52 KW 03/08/24 03/22/24 10:43 10:50 WC - Today's Visit Information Type of service Follow-up Visit Follow-up Visit (Physician/TERRESTRIAL ECOLOGIST (Physician/TERRESTRIAL ECOLOGIST ) ) Arrival Mode Wheelchair Wheelchair Accompanied by Violet Patient Identification Verified (Name & Yes Yes ) Safety Precautions Fall Prevention Vital Signs Temperature (97.8 F-99.1 F) 97.5 F L 97.9 F Temperature Source Temporal Temporal Pulse Rate (60-100) 77 70 Pulse Location Monitor Monitor Respiratory Rate (12-18) 18 18 Respiratory rate source Observation Observation Oxygen Delivery Method Room Air Room Air Blood Pressure (90/60-120/80) 110/52 L 138/58 H Blood Pressure Mean (mm Hg) 71 84 Source Monitor Monitor Position Sitting Semi-Fowlers Blood Pressure Location Left Arm Left Forearm History Since Last Visit- (Skip if this is Patient's initial visit) Have you changed medications since your No last visit? Any new allergies or adverse reactions No Had a fall/change in ADL's that may No increase risk of falls Signs or symptoms of abuse and/or No neglect since last visit Have you been in the hospital since your No last visit? Has dressing in place as prescribed Yes Yes Has compression in place as prescribed Yes Yes Has offloadiing in place as prescribed Yes Yes Experienced any changes in pain level or Yes No management Left Footwear Regular Shoe Surgical Shoe with pressure relief insole Right Footwear Regular Shoe Surgical Shoe with pressure relief insole Pain Scale: 0-10 Numeric Is Patient Pain Free? Yes Yes SASHA Holden Nurse 1 - General Ulcer Measurement Start: 03/08/24 10:43 Freq: Status: Active Protocol: Activity Type Activity Date Activity User E-sign Co-sign Detail Recorded Client Recorded Date Recorded By Document 03/08/24 10:43 MT [id number] 03/08/24 11:01 MT Document 03/22/24 10:50 KW [id number] 03/22/24 10:52 KW 03/08/24 03/22/24 10:43 10:50 Wound Center Nurse 1 7-right plantar foot -Current Size (cm) - Length 2.9 2 -Current Size (cm) - Width 0.8 2.6 -Current Size (cm) - Depth 0.1 0.2 -Total Square Cm 2.32 5.2 -Photo Taken Yes -Epithelialization Large 67-100% -Tunneling No -Undermining/Tunneling No -Circular Undermining No -Exudate Amt Medium Medium -Exudate Type Serosanguineous Serosanguineous -Wound Margin Thickened Distinct, Outline Attached -Granulation Amt Small (1-33%) Large (67-100%) -Granulation Quality Pale,[place] Pale,[place] -Necrosis Amt Large (67-100%) -Necrotic Tissue Type Adherent Slough -Texture (Yuliet-wound Skin Appearance) Assessed Assessed -Moisture (Yuliet-wound Skin Appearance) Assessed Assessed, Maceration -Color (Yuliet-wound Skin Appearance) Assessed Assessed -Temperature (Yuliet-wound Skin No Abnormality No Abnormality Appearance) (Pt Warm) (Pt Warm) -Tenderness on Palpation (Yuliet-wound No No Skin Appearance) -Ulcer Cleansing Soap and Water Soap and Water -Foul Odor after Cleansing No No -Anesthetic Used 5% Lidocaine 5% Lidocaine Gel Gel WC - Nurse 2 - General Ulcer CM Notes Start: 03/08/24 10:43 Freq: Status: Active Protocol: Activity Type Activity Date Activity User E-sign Co-sign Detail Recorded Client Recorded Date Recorded By Document 03/08/24 11:17 JF [id number] 03/08/24 11:18 JF Document 03/22/24 11:04 JF [id number] 03/22/24 11:05 JF 03/08/24 03/22/24 11:17 11:04 Wound Center Nurse 2 7-right plantar foot -Time 11:17 11:04 -Correct Patient Yes Yes -Correct Side, Site, Position Yes Yes -Correct Procedure Yes Yes -Procedure Performed Yes Yes -Type of Procedure Debridement Debridement -Clinical Debridement Subcutaneous Subcutaneous -Tissue Removed Subcutaneous Subcutaneous -Post Debridement (cm) - Length 2.5 2.8 -Post Debridement (cm) - Width 0.8 1.8 -Post Debridement (cm) - Depth 0.2 0.2 -Total Square (Post) (cm) 2.00 5.04 -Area of Debridement (cm) - Length 2.5 2.8 -Area of Debridement (cm) - Width 0.8 1.8 -Total Square (Area) (cm) 2.00 5.04 -Tunneling No No -Undermining/Tunneling No No -Circular Undermining No No -Wound/Ulcer Outcome Not Healed Not Healed -Ulcer Cleansing Rinsed/ Rinsed/ Irrigated with Irrigated with Saline Saline -Foul Odor after Cleansing No No -Bioengineered Tissue No No -Bleeding Controlled with Pressure Pressure -Treatment Response Procedure Procedure Tolerated Well Tolerated Well -Offloading No No -Debridement - Subq, 1st 20sq cm Yes Yes Pain Scale: 0-10 Numeric Is Patient Pain Free? Yes Yes WC - Nurse 3 - General Ulcer D/C NN Start: 03/08/24 10:43 Freq: Status: Active Protocol: Activity Type Activity Date Activity User E-sign Co-sign Detail Recorded Client Recorded Date Recorded By Document 03/08/24 11:31 ML [id number] 03/08/24 11:50 ML 03/08/24 11:31 Wound Care Center Nurse 3 7-right plantar foot -Ulcer Cleansing Rinsed/ Irrigated with Saline -Foul Odor after Cleansing No -Primary Dressing Applied Promogran Joan Matter -Other Dressing betadine paint, bridgette -Primary Dressing Covered/Secured with Dry Gauze, Secured with Tape -Promogran Joan Matter 1 Pain Scale: 0-10 Numeric Is Patient Pain Free? Yes Assessment/Plan Assessment/Plan (1) Venous insufficiency (chronic) (peripheral): CODE(S): I87.2 - Venous insufficiency (chronic) (peripheral) (2) Other specified peripheral vascular diseases: CODE(S): I73.89 - Other specified peripheral vascular diseases (3) Cellulitis of right lower limb: CODE(S): L03.115 - Cellulitis of right lower limb (4) Non-pressure 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 foot with fat layer exposed: CODE(S): L97.512 - Non-pressure 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 foot with fat layer exposed (5) Non-pressure chronic ulcer of other part of left foot with fat layer exposed: CODE(S): L97.522 - Non-pressure chronic ulcer of other part of left foot with fat layer exposed (6) Tinea unguium: CODE(S): B35.1 - Tinea unguium (7) Pain in right toe(s): CODE(S): M79.674 - Pain in right toe(s) (8) Pain in left toe(s): CODE(S): M79.675 - Pain in left toe(s) PLAN: Plan Exam performed Right foot wound plantarly excisionally debrided down to including level subcutaneous tissue of all nonviable tissue using dermal curette. Patient tolerated procedure well. Topical anesthesia used. Hemostasis obtained with light compression. Pre and postdebridement measurements documented nursing notes. Wound care -right plantar ulcer will continue Betadine to periwound area applied Joan, dry sterile dressing, Tubigrip?daily No weightbearing restrictions at current. This may change pending patient's healing status. No additional antibiotics at this time Follow-up in 2 weeks
== END 2024-03-28 23:59 | disposition home or self-care (01) ==
LOC: WC 10:45
PROVIDERS: PCP Family Medicine; Referring Provider Family Medicine; Visit Provider Podiatrist
DX: I87.2 Venous insufficiency (chronic) (peripheral) (principal); L97.512 Non-pressure 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 foot with fat layer exposed; L97.522 Non-pressure chronic ulcer of other part of left foot with fat layer exposed; L03.115 Cellulitis of right lower limb; G62.9 Polyneuropathy, unspecified; Q66.11 Congenital talipes calcaneovarus, right foot; I73.9 Peripheral vascular disease, unspecified; M24.561 Contracture, right knee; R53.1 Weakness; B35.1 Tinea unguium; M79.675 Pain in left toe(s); M79.674 Pain in right toe(s)
CPT/HCPCS: 11042

== ENCOUNTER 2024-04-19 10:15 | Outpatient (RCR) | payer MEDICARE, BC, SELFPAY ==
[2024-03-29 00:41] VITALS: BP 124/76; PULSE 63; RESP 18; TEMP 36.2
[2024-04-19 10:41] VITALS: BP 113/63; PULSE 64; RESP 18; TEMP 36.8
--- NOTE | 2024-04-19 11:30 | PN.PCM_ITS ---
History of Present Illness Date of Service: 04/19/24 Chief Complaint: Nonhealing bilateral lower extremity ulcers History of Wound: Mr Wilson is an 82-year-old who was brought in here from his group home due to right plantar foot wound. Has had recurrent ulcerations for over 10 years with most recent episode being more severe late last year. 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 No changes today. Patient denies any fever chills nausea vomiting chest pain calf pain at current. Patient resides in long-term facility. Patient receives daily Betadine DSD bilaterally. Patient has a minimally ambulatory status due to deformity and weakness. Patient states that he does ambulate assisted by walker within the confines of his room to the bathroom. States he does this on a daily basis. No other complaints. Progress of Wound: Patient has right plantar foot ulcer which does appear smaller in size. There is no maceration present. Objective Data Objective Data Vital Signs: Vital Signs Temp Pulse Resp BP O2 Del Method 98.3 F 64 18 113/63 Room Air 04/19/24 10:41 04/19/24 10:41 04/19/24 10:41 04/19/24 10:41 04/19/24 10:41 Oxygen Delivery Method Room Air Physical Exam Narrative Vascular: Dorsalis pedis posterior tibial pulses palpable to bilateral lower extremity. Atrophic skin changes such as shiny taut appearance noted with absent digital hair growth. Patient does have +1 pitting edema to bilateral lower extremity with hemosiderin deposits noted. Neurologic: Light touch protective sensation diminished bilateral feet. Dermatologic: Healed medial right ankle and lateral wounds. Healed dorsal foot wound right foot. Significantly improved right plantar foot wound, slight maceration today. healed left medial ankle wound. Right plantar foot wound demonstrate clean granular bases with no deep probing undermining or signs of infection. 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 This appears to contribute to wound formation and poor ambulatory status patient. Patient has diffuse muscular weakness 4 out of 5 to bilateral lower extremity compartments. On the left lower extremity patient has an equinus contracture to the hindfoot. Debridement Note Debridement Note Post-Debridement Measurements and Additional Note: Post-Debridement Measurements/Treatment - Nurse 1 - General Ulcer Assessment Start: 04/19/24 10:40 Freq: Status: Active Protocol: MARTA Activity Type Activity Date Activity User E-sign Co-sign Detail Recorded Client Recorded Date Recorded By Document 04/19/24 10:41 KW [id number] 04/19/24 11:00 04/19/24 10:41 WC - Today's Visit Information Type of service Follow-up Visit (Physician/BILLIARD PARLOR MANAGER ) Arrival Mode Wheelchair Patient Identification Verified (Name & Yes ) Vital Signs Temperature (97.8 F-99.1 F) 98.3 F Temperature Source Temporal Pulse Rate (60-100) 64 Pulse Location Monitor Respiratory Rate (12-18) 18 Respiratory rate source Observation Oxygen Delivery Method Room Air Blood Pressure (90/60-120/80) 113/63 Blood Pressure Mean (mm Hg) 79 Source Monitor Position Sitting Blood Pressure Location Left Arm History Since Last Visit- (Skip if this is Patient's initial visit) Have you changed medications since your No last visit? Any new allergies or adverse reactions No Had a fall/change in ADL's that may No increase risk of falls Signs or symptoms of abuse and/or No neglect since last visit Have you been in the hospital since your No last visit? Has dressing in place as prescribed Yes Has compression in place as prescribed Yes Has offloadiing in place as prescribed Yes Experienced any changes in pain level or No management Left Footwear Surgical Shoe with pressure relief insole Right Footwear Surgical Shoe with pressure relief insole Pain Scale: 0-10 Numeric Is Patient Pain Free? Yes - Nurse 1 - General Ulcer Measurement Start: 04/19/24 10:40 Freq: Status: Active Protocol: Activity Type Activity Date Activity User E-sign Co-sign Detail Recorded Client Recorded Date Recorded By Document 04/19/24 10:41 KW [id number] 04/19/24 11:00 KW 04/19/24 10:41 Wound Center Nurse 1 7-right plantar foot -Combined with (Name of Wound-Exactly 3 as it is documented) -Current Size (cm) - Length 5.5 -Current Size (cm) - Width 0.3 -Total Square Cm 1.65 -Exudate Amt Medium -Exudate Type Serosanguineous -Wound Margin Distinct, Outline Attached -Granulation Amt Large (67-100%) -Granulation Quality [place] -Texture (Yuliet-wound Skin Appearance) Assessed -Moisture (Yul[place]-wound Skin Appearance) Assessed, Maceration,Dry/ Scaly -Color (Yuliet-wound Skin Appearance) Assessed -Temperature (Yuliet-wound Skin No Abnormality Appearance) (Pt Warm) -Tenderness on Palpation (Yuliet-wound No Skin Appearance) -Ulcer Cleansing Soap and Water -Foul Odor after Cleansing No -Anesthetic Used 5% Lidocaine Gel WC - Nurse 2 - General Ulcer CM Notes Start: 04/19/24 10:40 Freq: Status: Active Protocol: Activity Type Activity Date Activity User E-sign Co-sign Detail Recorded Client Recorded Date Recorded By Document 04/19/24 11:12 JUAN RAMON [id number] 04/19/24 11:16 JUAN RAMON 04/19/24 11:12 Wound Center Nurse 2 -Time 11:13 -Correct Patient Yes -Correct Side, Site, Position Yes -Correct Procedure Yes -Procedure Performed Yes -Type of Procedure Debridement -Clinical Debridement Subcutaneous -Tissue Removed Subcutaneous -Post Debridement (cm) - Length 3.5 -Post Debridement (cm) - Width 1 -Post Debridement (cm) - Depth 0.2 -Total Square (Post) (cm) 3.5 -Area of Debridement (cm) - Length 3.5 -Area of Debridement (cm) - Width 1.0 -Total Square (Area) (cm) 3.50 -Tunneling No -Undermining/Tunneling No -Circular Undermining No -Wound/Ulcer Outcome Not Healed -Ulcer Cleansing Rinsed/ Irrigated with Saline -Foul Odor after Cleansing No -Bioengineered Tissue No -Bleeding Controlled with Pressure -Treatment Response Procedure Tolerated Well -Offloading No -Debridement - Subq, 1st 20sq cm Yes Pain Scale: 0-10 Numeric Is Patient Pain Free? Yes Assessment/Plan Assessment/Plan (1) Venous insufficiency (chronic) (peripheral): CODE(S): I87.2 - Venous insufficiency (chronic) (peripheral) (2) Other specified peripheral vascular diseases: CODE(S): I73.89 - Other specified peripheral vascular diseases (3) Cellulitis of right lower limb: CODE(S): L03.115 - Cellulitis of right lower limb (4) Non-pressure 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 foot with fat layer exposed: CODE(S): L97.512 - Non-pressure 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 foot with fat layer exposed (5) Non-pressure chronic ulcer of other part of left foot with fat layer exposed: CODE(S): L97.522 - Non-pressure chronic ulcer of other part of left foot with fat layer exposed (6) Tinea unguium: CODE(S): B35.1 - Tinea unguium (7) Pain in right toe(s): CODE(S): M79.674 - Pain in right toe(s) (8) Pain in left toe(s): CODE(S): M79.675 - Pain in left toe(s) PLAN: Plan Exam performed Right foot wound plantarly excisionally debrided down to including level subcutaneous tissue of all nonviable tissue using dermal curette. Patient tolerated procedure well. Topical anesthesia used. Hemostasis obtained with light compression. Pre and postdebridement measurements documented nursing notes. Wound care -right plantar ulcer will continue Betadine to periwound area applied Joan, dry sterile dressing, Tubigrip?daily No weightbearing restrictions at current. This may change pending patient's healing status. No additional antibiotics at this time Follow-up in 2 weeks
== END 2024-04-28 23:59 | disposition home or self-care (01) ==
LOC: WC 10:15
PROVIDERS: PCP Family Medicine; Referring Provider Family Medicine; Visit Provider Podiatrist
DX: L03.115 Cellulitis of right lower limb (principal); L97.522 Non-pressure chronic ulcer of other part of left foot with fat layer exposed; L97.512 Non-pressure 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 foot with fat layer exposed; I87.2 Venous insufficiency (chronic) (peripheral); M24.561 Contracture, right knee; R53.1 Weakness; G62.9 Polyneuropathy, unspecified; B35.1 Tinea unguium; M79.675 Pain in left toe(s); M79.674 Pain in right toe(s); Q66.11 Congenital talipes calcaneovarus, right foot; I73.89 Other specified peripheral vascular diseases
CPT/HCPCS: 11042

== ENCOUNTER 2024-05-17 10:36 | Outpatient (RCR) | payer MEDICARE, BC, SELFPAY ==
[2024-04-29 00:44] VITALS: BP 124/76; PULSE 63; RESP 18; TEMP 36.2
[2024-05-17 10:41] VITALS: BP 86/50; PULSE 74; RESP 18; TEMP 36.7
--- NOTE | 2024-05-17 11:13 | PN.PCM_ITS ---
History of Present Illness Date of Service: 05/17/24 Chief Complaint: Nonhealing bilateral lower extremity ulcers History of Wound: Mr Wilson is an 82-year-old who was brought in here from his correction due to right plantar foot wound. Has had recurrent ulcerations for over 10 years with most recent episode being more severe late last year. 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 No changes today. Patient denies any fever chills nausea vomiting chest pain calf pain at current. Patient resides in [facility]. Patient receives daily Betadine DSD bilaterally. Patient has a minimally ambulatory status due to deformity and weakness. Patient states that he does ambulate assisted by walker within the confines of his room to the bathroom. States he does this on a daily basis. No other complaints. Progress of Wound: Patient has right plantar foot ulcer which does appear smaller in size. There is no maceration present. Objective Data Objective Data Vital Signs: Vital Signs Temp Pulse Resp BP O2 Del Method 98.1 F 74 18 86/50 L Room Air 05/17/24 10:41 05/17/24 10:41 05/17/24 10:41 05/17/24 10:41 05/17/24 10:41 Oxygen Delivery Method Room Air Physical Exam Narrative Vascular: Dorsalis pedis posterior tibial pulses palpable to bilateral lower extremity. Atrophic skin changes such as shiny taut appearance noted with absent digital hair growth. Patient does have +1 pitting edema to bilateral lower extremity with hemosiderin deposits noted. Neurologic: Light touch protective sensation diminished bilateral feet. Dermatologic: Healed medial right ankle and lateral wounds. Healed dorsal foot wound right foot. Significantly improved right plantar foot wound, slight maceration today. healed left medial ankle wound. Right plantar foot wound demonstrate clean granular bases with no deep probing undermining or signs of infection. 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 This appears to contribute to wound formation and poor ambulatory status patient. Patient has diffuse muscular weakness 4 out of 5 to bilateral lower extremity compartments. On the left lower extremity patient has an equinus contracture to the hindfoot. 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 Any new allergies or adverse reactions No Had a fall/change in ADL's that may No increase risk of falls Signs or symptoms of abuse and/or No neglect since last visit Have you been in the hospital since your No last visit? Has dressing in place as prescribed Yes Has compression in place as prescribed Yes Has offloadiing in place as prescribed Yes Experienced any changes in pain level or No management Left Footwear Surgical Shoe with pressure relief insole Right Footwear Surgical Shoe with pressure relief insole Pain Scale: 0-10 Numeric Is Patient Pain Free? Yes - Nurse 1 - General Ulcer Measurement Start: 05/17/24 10:41 Freq: Status: Active Protocol: Activity Type Activity Date Activity User E-sign Co-sign Detail Recorded Client Recorded Date Recorded By Document 05/17/24 10:41 [email or web address] [id number] 05/17/24 11:01 05/17/24 10:41 Wound Center Nurse 1 7-right plantar foot -Current Size (cm) - Length 2.2 -Current Size (cm) - Width 1.5 -Current Size (cm) - Depth 0.2 -Total Square Cm 3.30 -Date of Last Picture (Recall this 05/17/24 field) -Exudate Amt Small -Exudate Type Serosanguineous -Wound Margin Distinct, Outline Attached -Granulation Amt Large (67-100%) -Granulation Quality [place] -Texture (Yuliet-wound Skin Appearance) Assessed -Moisture (Yuliet-wound Skin Appearance) Assessed, Maceration,Dry/ Scaly -Color (Yuliet-wound Skin Appearance) Assessed -Temperature (Yuliet-wound Skin No Abnormality Appearance) (Pt Warm) -Tenderness on Palpation (Yuliet-wound No Skin Appearance) -Ulcer Cleansing Soap and Water -Foul Odor after Cleansing No -Anesthetic Used 5% Lidocaine Gel WC - Nurse 2 - General Ulcer CM Notes Start: 05/17/24 10:41 Freq: Status: Active Protocol: Activity Type Activity Date Activity User E-sign Co-sign Detail Recorded Client Recorded Date Recorded By Document 05/17/24 11:08 JUAN RAMON [id number] 05/17/24 11:11 JUAN RAMON 05/17/24 11:08 Wound Center Nurse 2 -Time 11:08 -Correct Patient Yes -Correct Side, Site, Position Yes -Correct Procedure Yes -Procedure Performed Yes -Type of Procedure Debridement -Clinical Debridement Subcutaneous -Tissue Removed Subcutaneous -Post Debridement (cm) - Length 2.5 -Post Debridement (cm) - Width 1.0 -Post Debridement (cm) - Depth 0.1 -Total Square (Post) (cm) 2.50 -Area of Debridement (cm) - Length 2.5 -Area of Debridement (cm) - Width 1.0 -Total Square (Area) (cm) 2.50 -Tunneling No -Undermining/Tunneling No -Circular Undermining No -Wound/Ulcer Outcome Not Healed -Ulcer Cleansing Rinsed/ Irrigated with Saline -Foul Odor after Cleansing No -Bioengineered Tissue No -Bleeding Controlled with Pressure -Treatment Response Procedure Tolerated Well -Offloading Yes -Type of Offloading Surgical Shoe -Debridement - Subq, 1st 20sq cm Yes Pain Scale: 0-10 Numeric Is Patient Pain Free? Yes Assessment/Plan Assessment/Plan (1) Venous insufficiency (chronic) (peripheral): CODE(S): I87.2 - Venous insufficiency (chronic) (peripheral) (2) Other specified peripheral vascular diseases: CODE(S): I73.89 - Other specified peripheral vascular diseases (3) Cellulitis of right lower limb: CODE(S): L03.115 - Cellulitis of right lower limb (4) Non-pressure 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 foot with fat layer exposed: CODE(S): L97.512 - Non-pressure 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 foot with fat layer exposed (5) Non-pressure chronic ulcer of other part of left foot with fat layer exposed: CODE(S): L97.522 - Non-pressure chronic ulcer of other part of left foot with fat layer exposed (6) Tinea unguium: CODE(S): B35.1 - Tinea unguium (7) Pain in right toe(s): CODE(S): M79.674 - Pain in right toe(s) (8) Pain in left toe(s): CODE(S): M79.675 - Pain in left toe(s) PLAN: Plan Exam performed Right foot wound plantarly excisionally debrided down to including level subcutaneous tissue of all nonviable tissue using dermal curette. Patient tolerated procedure well. Topical anesthesia used. Hemostasis obtained with light compression. Pre and postdebridement measurements documented nursing notes. Wound care -right plantar ulcer will continue Betadine to periwound area applied Joan, dry sterile dressing, Tubigrip?daily No weightbearing restrictions at current. This may change pending patient's healing status. No additional antibiotics at this time Follow-up in 4 weeks
--- NOTE | 2024-05-17 14:25 | WC ---
PHOTO 05/17/24 RIGHT DORSAL FOOT
== END 2024-05-28 23:59 | disposition home or self-care (01) ==
LOC: WC 10:36
PROVIDERS: PCP Family Medicine; Referring Provider Family Medicine; Visit Provider Podiatrist
DX: I87.2 Venous insufficiency (chronic) (peripheral) (principal); L97.512 Non-pressure 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 foot with fat layer exposed; L97.522 Non-pressure chronic ulcer of other part of left foot with fat layer exposed; L03.115 Cellulitis of right lower limb; M79.675 Pain in left toe(s); Q66.11 Congenital talipes calcaneovarus, right foot; B35.1 Tinea unguium; M79.674 Pain in right toe(s); G62.9 Polyneuropathy, unspecified; M24.561 Contracture, right knee; R53.1 Weakness; I73.89 Other specified peripheral vascular diseases
CPT/HCPCS: 11042

== ENCOUNTER 2024-07-26 10:30 | Outpatient (RCR) | payer MEDICARE, BC, SELFPAY ==
[2024-05-29 00:50] VITALS: BP 124/76; PULSE 63; RESP 18; TEMP 36.2
[2024-07-12 10:45] VITALS: BP 103/61; PULSE 75; RESP 18; TEMP 36.5
--- NOTE | 2024-07-12 11:17 | PN.PCM_ITS ---
History of Present Illness Date of Service: 07/12/24 Chief Complaint: Nonhealing bilateral lower extremity ulcers History of Wound: Mr Wilson is an 82-year-old who was brought in here from his [facility] due to right plantar foot wound. Has had recurrent ulcerations for over 10 years with most recent episode being more severe late last year. 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 No changes today. Patient denies any fever chills nausea vomiting chest pain calf pain at current. Patient resides in [facility] facility. Patient receives daily Betadine DSD bilaterally. Patient has a minimally ambulatory status due to deformity and weakness. Patient states that he does ambulate assisted by walker within the confines of his room to the bathroom. States he does this on a daily basis. No other complaints. Progress of Wound: Patient has right plantar foot ulcer which does appear smaller in size. There is no maceration present. Objective Data Objective Data Vital Signs: Vital Signs Temp Pulse Resp BP 97.7 F L 75 18 103/61 07/12/24 10:45 07/12/24 10:45 07/12/24 10:45 07/12/24 10:45 Physical Exam Narrative Vascular: Dorsalis pedis posterior tibial pulses palpable to bilateral lower extremity. Atrophic skin changes such as shiny taut appearance noted with absent digital hair growth. Patient does have +1 pitting edema to bilateral lower extremity with hemosiderin deposits noted. Neurologic: Light touch protective sensation diminished bilateral feet. Dermatologic: Healed medial right ankle and lateral wounds. recurrent dorsal foot wound right foot. Significantly improved right plantar foot wound, slight maceration today. healed left medial ankle wound. Right plantar foot wound demonstrate clean granular bases with no deep probing undermining or signs of infection. 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 This appears to contribute to wound formation and poor ambulatory status patient. Patient has diffuse muscular weakness 4 out of 5 to bilateral lower extremity compartments. On the left lower extremity patient has an equinus contracture to the hindfoot. 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 Any new allergies or adverse reactions No Had a fall/change in ADL's that may No increase risk of falls Signs or symptoms of abuse and/or No neglect since last visit Have you been in the hospital since your No last visit? Has dressing in place as prescribed Yes Has compression in place as prescribed Yes Has offloadiing in place as prescribed Yes Experienced any changes in pain level or No management Left Footwear Surgical Shoe with pressure relief insole Right Footwear Surgical Shoe with pressure relief insole Pain Scale: 0-10 Numeric Is Patient Pain Free? Yes - Nurse 1 - General Ulcer Measurement Start: 07/12/24 10:45 Freq: Status: Active Protocol: Activity Type Activity Date Activity User E-sign Co-sign Detail Recorded Client Recorded Date Recorded By Document 07/12/24 10:45 KW [id number] 07/12/24 10:49 KW 07/12/24 10:45 Wound Center Nurse 1 7-right plantar foot -Combined with other wound No -Current Size (cm) - Length 2.5 -Current Size (cm) - Width 1.3 -Current Size (cm) - Depth 0.1 -Total Square Cm 3.25 -Photo Taken Yes -Tunneling No -Undermining/Tunneling No -Circular Undermining No -Exudate Amt Medium -Exudate Type Serosanguineous -Wound Margin Distinct, Outline Attached -Granulation Amt Medium (34-66%) -Granulation Quality [place] -Slough/Fibrin Yes -Necrosis Amt Medium (34-66%) -Necrotic Tissue Type Adherent Slough -Structure Exposed N/A -Texture (Yuliet-wound Skin Appearance) Assessed, Scarring -Moisture (Yuliet-wound Skin Appearance) Assessed,Dry/ Scaly -Color (Yuliet-wound Skin Appearance) Assessed -Temperature (Yuliet-wound Skin No Abnormality Appearance) (Pt Warm) -Tenderness on Palpation (Yuliet-wound No Skin Appearance) -Ulcer Cleansing Wound Cleanser -Foul Odor after Cleansing No -Anesthetic Used 5% Lidocaine Gel Lower Limb Edema Present Yes Right Calf (cm) 34.5 Right Ankle (cm) 22.5 WC - Nurse 2 - General Ulcer CM Notes Start: 07/12/24 10:45 Freq: Status: Active Protocol: Activity Type Activity Date Activity User E-sign Co-sign Detail Recorded Client Recorded Date Recorded By Document 07/12/24 11:11 JUAN RAMON [id number] 07/12/24 11:13 JUAN RAMON 07/12/24 11:11 Wound Center Nurse 2 14-right dorsal foot -Time 11:12 -Correct Patient Yes -Correct Side, Site, Position Yes -Correct Procedure Yes -Procedure Performed Yes -Type of Procedure Debridement -Clinical Debridement Subcutaneous -Tissue Removed Subcutaneous -Post Debridement (cm) - Length 3.5 -Post Debridement (cm) - Width 1 -Post Debridement (cm) - Depth 0.1 -Total Square (Post) (cm) 3.5 -Area of Debridement (cm) - Length 3.5 -Area of Debridement (cm) - Width 1 -Total Square (Area) (cm) 3.5 -Tunneling No -Undermining/Tunneling No -Circular Undermining No -Wound/Ulcer Outcome Not Healed -Ulcer Cleansing Rinsed/ Irrigated with Saline -Foul Odor after Cleansing No -Bioengineered Tissue No -Bleeding Controlled with Pressure -Treatment Response Procedure Tolerated Well -Offloading Yes -Type of Offloading Surgical Shoe -Debridement - Subq, 1st 20sq cm Yes 7-right plantar foot -Time 11:11 -Correct Patient Yes -Correct Side, Site, Position Yes -Correct Procedure Yes -Procedure Performed Yes -Type of Procedure Debridement -Clinical Debridement Subcutaneous -Tissue Removed Subcutaneous -Post Debridement (cm) - Length 1.0 -Post Debridement (cm) - Width 2.5 -Post Debridement (cm) - Depth 0.2 -Total Square (Post) (cm) 2.50 -Area of Debridement (cm) - Length 1.0 -Area of Debridement (cm) - Width 2.5 -Total Square (Area) (cm) 2.50 -Tunneling No -Undermining/Tunneling No -Circular Undermining No -Wound/Ulcer Outcome Not Healed -Ulcer Cleansing Rinsed/ Irrigated with Saline -Foul Odor after Cleansing No -Bioengineered Tissue No -Bleeding Controlled with Pressure -Treatment Response Procedure Tolerated Well -Offloading Yes -Type of Offloading Surgical Shoe -Debridement - Subq, 1st 20sq cm No Pain Scale: 0-10 Numeric Is Patient Pain Free? Yes Assessment/Plan Assessment/Plan (1) Venous insufficiency (chronic) (peripheral): CODE(S): I87.2 - Venous insufficiency (chronic) (peripheral) (2) Other specified peripheral vascular diseases: CODE(S): I73.89 - Other specified peripheral vascular diseases (3) Cellulitis of right lower limb: CODE(S): L03.115 - Cellulitis of right lower limb (4) Non-pressure 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 foot with fat layer exposed: CODE(S): L97.512 - Non-pressure 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 Patient tolerated procedure well. Topical anesthesia used. Hemostasis obtained with light compression. Pre and postdebridement measurements documented nursing notes. Wound care -right plantar ulcer will continue Betadine to periwound area applied Joan, dry sterile dressing, Tubigrip?daily No weightbearing restrictions at current. This may change pending patient's healing status. No additional antibiotics at this time Follow-up in 4 weeks
--- NOTE | 2024-07-15 09:07 | WC ---
PHOTO 07/12/24 RIGHT PLANTAR
[2024-07-19 10:44] VITALS: BP 126/42; PULSE 57; RESP 18; TEMP 36.7
--- NOTE | 2024-07-19 11:13 | PN.PCM_ITS ---
History of Present Illness Date of Service: 07/19/24 Chief Complaint: Nonhealing bilateral lower extremity ulcers History of Wound: Mr Wilson is an 82-year-old who was brought in here from his long-term due to right plantar foot wound. Has had recurrent ulcerations for over 10 years with most recent episode being more severe late last year. 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 No changes today. Patient denies any fever chills nausea vomiting chest pain calf pain at current. Patient resides in [facility] facility. Patient receives daily Betadine DSD bilaterally. Patient has a minimally ambulatory status due to deformity and weakness. Patient states that he does ambulate assisted by walker within the confines of his room to the bathroom. States he does this on a daily basis. No other complaints. Progress of Wound: Patient has right plantar foot ulcer which does appear smaller in size. There is no maceration present. Objective Data Objective Data Vital Signs: Vital Signs Temp Pulse Resp BP 98.1 F 57 L 18 126/42 H 07/19/24 10:44 07/19/24 10:44 07/19/24 10:44 07/19/24 10:44 Physical Exam Narrative Vascular: Dorsalis pedis posterior tibial pulses palpable to bilateral lower extremity. Atrophic skin changes such as shiny taut appearance noted with absent digital hair growth. Patient does have +1 pitting edema to bilateral lower extremity with hemosiderin deposits noted. Neurologic: Light touch protective sensation diminished bilateral feet. Dermatologic: Healed medial right ankle and lateral wounds. recurrent dorsal foot wound right foot. Significantly improved right plantar foot wound, slight maceration today. healed left medial ankle wound. Right plantar foot wound demonstrate clean granular bases with no deep probing undermining or signs of infection. 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 This appears to contribute to wound formation and poor ambulatory status patient. Patient has diffuse muscular weakness 4 out of 5 to bilateral lower extremity compartments. On the left lower extremity patient has an equinus contracture to the hindfoot. Debridement Note Debridement Note Post-Debridement Measurements and Additional Note: Post-Debridement Measurements/Treatment - Nurse 1 - General Ulcer Assessment Start: 07/12/24 10:45 Freq: Status: Active Protocol: MARTA Activity Type Activity Date Activity User E-sign Co-sign Detail Recorded Client Recorded Date Recorded By Document 07/12/24 10:45 KW [id number] 07/12/24 10:49 KW Document 07/19/24 10:44 RB [id number] 07/19/24 10:53 RB 07/12/24 07/19/24 10:45 10:44 WC - Today's Visit Information Type of service Follow-up Visit Follow-up Visit (Physician/PLANNING ENGINEER (Physician/PLANNING ENGINEER ) ) Arrival Mode Wheelchair Wheelchair Transfer Assistance Manual Manual Patient Identification Verified (Name & Yes Yes ) Patient Requires Transmission-Based No No Precautions Vital Signs Temperature (97.8 F-99.1 F) 97.7 F L 98.1 F Temperature Source Temporal Temporal Pulse Rate (60-100) 75 57 L Pulse Location Monitor Monitor Respiratory Rate (12-18) 18 18 Respiratory rate source Observation Observation Blood Pressure (90/60-120/80) 103/61 126/42 H Blood Pressure Mean (mm Hg) 75 70 Source Monitor Monitor Position Semi-Fowlers Semi-Fowlers Blood Pressure Location Left Arm Left Arm History Since Last Visit- (Skip if this is Patient's initial visit) Have you changed medications since your No No last visit? Any new allergies or adverse reactions No No Had a fall/change in ADL's that may No No increase risk of falls Signs or symptoms of abuse and/or No No neglect since last visit Have you been in the hospital since your No No last visit? Has dressing in place as prescribed Yes Yes Has compression in place as prescribed Yes N/A Has offloadiing in place as prescribed Yes Yes Experienced any changes in pain level or No No management Left Footwear Surgical Shoe Surgical Shoe with pressure with pressure relief insole relief insole Right Footwear Surgical Shoe Surgical Shoe with pressure with pressure relief insole relief insole Pain Scale: 0-10 Numeric Is Patient Pain Free? Yes Yes SASHA - Nurse 1 - General Ulcer Measurement Start: 07/12/24 10:45 Freq: Status: Active Protocol: Activity Type Activity Date Activity User E-sign Co-sign Detail Recorded Client Recorded Date Recorded By Document 07/12/24 10:45 KW [id number] 07/12/24 10:49 KW Document 07/19/24 10:44 RB [id number] 07/19/24 10:53 RB 07/12/24 07/19/24 10:45 10:44 Wound Center Nurse 1 14-right dorsal foot -Combined with other wound No -Current Size (cm) - Length 2.3 -Current Size (cm) - Width 4.5 -Current Size (cm) - Depth 0.1 -Total Square Cm 10.35 -Tunneling No -Undermining/Tunneling No -Circular Undermining No -Exudate Amt Medium -Exudate Type Serosanguineous -Wound Margin Thickened -Granulation Amt Medium (34-66%) -Granulation Quality [place] -Slough/Fibrin Yes -Necrosis Amt Medium (34-66%) -Necrotic Tissue Type Adherent Slough -Structure Exposed N/A -Texture ([place]ul[place]-wound Skin Appearance) Assessed -Moisture ([place]-wound Skin Appearance) Assessed,Dry/ Scaly -Color ([place]-wound Skin Appearance) Assessed -Temperature ([place]-wound Skin No Abnormality Appearance) (Pt Warm) -Tenderness on Palpation ([place]-wound No Skin Appearance) -Ulcer Cleansing Wound Cleanser -Foul Odor after Cleansing No -Anesthetic Used 5% Lidocaine Gel 7-right plantar foot -Combined with other wound No No -Current Size (cm) - Length 2.5 1.5 -Current Size (cm) - Width 1.3 2 -Current Size (cm) - Depth 0.1 0.1 -Total Square Cm 3.25 3.0 -Photo Taken Yes -Tunneling No No -Undermining/Tunneling No No -Circular Undermining No No -Exudate Amt Medium Medium -Exudate Type Serosanguineous Serosanguineous -Wound Margin Distinct, Thickened Outline Attached -Granulation Amt Medium (34-66%) Medium (34-66%) -Granulation Quality [place] -Slough/Fibrin Yes Yes -Necrosis Amt Medium (34-66%) Medium (34-66%) -Necrotic Tissue Type Adherent Slough Adherent Slough -Structure Exposed N/A N/A -Texture ([place]ul[place]-wound Skin Appearance) Assessed, Assessed,Callus Scarring -Moisture ([place]ul[place]-wound Skin Appearance) Assessed,Dry/ Assessed,Dry/ Scaly Scaly -Color ([place]ul[place]-wound Skin Appearance) Assessed Assessed -Temperature ([place]-wound Skin No Abnormality No Abnormality Appearance) (Pt Warm) (Pt Warm) -Tenderness on Palpation ([place]ul[place]-wound No No Skin Appearance) -Ulcer Cleansing Wound Cleanser Wound Cleanser -Foul Odor after Cleansing No No -Anesthetic Used 5% Lidocaine 5% Lidocaine Gel Gel Lower Limb Edema Present Yes Right Calf (cm) 34.5 Right Ankle (cm) 22.5 WC - Nurse 2 - General Ulcer CM Notes Start: 07/12/24 10:45 Freq: Status: Active Protocol: Activity Type Activity Date Activity User E-sign Co-sign Detail Recorded Client Recorded Date Recorded By Document 07/12/24 11:11 JUAN RAMON [id number] 07/12/24 11:13 JUAN RAMON 07/12/24 11:11 Wound Center Nurse 2 14-right dorsal foot -Time 11:12 -Correct Patient Yes -Correct Side, Site, Position Yes -Correct Procedure Yes -Procedure Performed Yes -Type of Procedure Debridement -Clinical Debridement Subcutaneous -Tissue Removed Subcutaneous -Post Debridement (cm) - Length 3.5 -Post Debridement (cm) - Width 1 -Post Debridement (cm) - Depth 0.1 -Total Square (Post) (cm) 3.5 -Area of Debridement (cm) - Length 3.5 -Area of Debridement (cm) - Width 1 -Total Square (Area) (cm) 3.5 -Tunneling No -Undermining/Tunneling No -Circular Undermining No -Wound/Ulcer Outcome Not Healed -Ulcer Cleansing Rinsed/ Irrigated with Saline -Foul Odor after Cleansing No -Bioengineered Tissue No -Bleeding Controlled with Pressure -Treatment Response Procedure Tolerated Well -Offloading Yes -Type of Offloading Surgical Shoe -Debridement - Subq, 1st 20sq cm Yes 7-right plantar foot -Time 11:11 -Correct Patient Yes -Correct Side, Site, Position Yes -Correct Procedure Yes -Procedure Performed Yes -Type of Procedure Debridement -Clinical Debridement Subcutaneous -Tissue Removed Subcutaneous -Post Debridement (cm) - Length 1.0 -Post Debridement (cm) - Width 2.5 -Post Debridement (cm) - Depth 0.2 -Total Square (Post) (cm) 2.50 -Area of Debridement (cm) - Length 1.0 -Area of Debridement (cm) - Width 2.5 -Total Square (Area) (cm) 2.50 -Tunneling No -Undermining/Tunneling No -Circular Undermining No -Wound/Ulcer Outcome Not Healed -Ulcer Cleansing Rinsed/ Irrigated with Saline -Foul Odor after Cleansing No -Bioengineered Tissue No -Bleeding Controlled with Pressure -Treatment Response Procedure Tolerated Well -Offloading Yes -Type of Offloading Surgical Shoe -Debridement - Subq, 1st 20sq cm No Pain Scale: 0-10 Numeric Is Patient Pain Free? Yes - Nurse 3 - General Ulcer D/C NN Start: 07/12/24 10:45 Freq: Status: Active Protocol: Activity Type Activity Date Activity User E-sign Co-sign Detail Recorded Client Recorded Date Recorded By Document 07/12/24 11:52 RB [id number] 07/12/24 11:54 RB 07/12/24 11:52 Wound Care Center Nurse 3 14-right dorsal foot -Ulcer Cleansing Rinsed/ Irrigated with Saline -Primary Dressing Applied Aquacel AG 4x4 -Primary Dressing Covered/Secured with Dry Gauze,Dry Gauze & Roll Gauze,Secured with Tape 7-right plantar foot -Ulcer Cleansing Rinsed/ Irrigated with Saline -Other Dressing aquacel AG/ ABD -Primary Dressing Covered/Secured with Dry Gauze,Dry Gauze & Roll Gauze,Secured with Tape bilateral -Other bridgette Treatment Response Procedure Tolerated Well Pain Scale: 0-10 Numeric Is Patient Pain Free? Yes - Visit Discharge Discharge Condition Stable Ambulatory Status Wheelchair Transportation [facility] transport Medication Reconcilliation completed & No provided to patient/care provider Clinical Summary of Care Provided Yes Assessment/Plan Assessment/Plan (1) Venous insufficiency (chronic) (peripheral): CODE(S): I87.2 - Venous insufficiency (chronic) (peripheral) (2) Other specified peripheral vascular diseases: CODE(S): I73.89 - Other specified peripheral vascular diseases (3) Cellulitis of right lower limb: CODE(S): L03.115 - Cellulitis of right lower limb (4) Non-pressure 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 foot with fat layer exposed: CODE(S): L97.512 - Non-pressure 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 Patient tolerated procedure well. Topical anesthesia used. Hemostasis obtained with light compression. Pre and postdebridement measurements documented nursing notes. Wound care -right plantar ulcer will continue Betadine to periwound area applied Joan, dry sterile dressing, Tubigrip?daily No weightbearing restrictions at current. This may change pending patient's healing status. No additional antibiotics at this time plan for advance wound care grafting Follow-up in 4 weeks
[2024-07-26 10:42] VITALS: BP 103/56; PULSE 59; RESP 16; TEMP 36.5
--- NOTE | 2024-07-26 11:09 | PN.PCM_ITS ---
History of Present Illness Date of Service: 07/26/24 Chief Complaint: Nonhealing bilateral lower extremity ulcers History of Wound: Mr Wilson is an 82-year-old who was brought in here from his long term due to right plantar foot wound. Has had recurrent ulcerations for over 10 years with most recent episode being more severe late last year. 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 No changes today. Patient denies any fever chills nausea vomiting chest pain calf pain at current. Patient resides in [facility]. Patient receives daily Betadine DSD bilaterally. Patient has a minimally ambulatory status due to deformity and weakness. Patient states that he does ambulate assisted by walker within the confines of his room to the bathroom. States he does this on a daily basis. No other complaints. Progress of Wound: Patient has right plantar foot ulcer which does appear smaller in size. There is no maceration present. Objective Data Objective Data Vital Signs: Vital Signs Temp Pulse Resp BP O2 Del Method 97.7 F L 59 L 16 103/56 L Room Air 07/26/24 10:42 07/26/24 10:42 07/26/24 10:42 07/26/24 10:42 07/26/24 10:42 Oxygen Delivery Method Room Air Physical Exam Narrative Vascular: Dorsalis pedis posterior tibial pulses palpable to bilateral lower extremity. Atrophic skin changes such as shiny taut appearance noted with absent digital hair growth. Patient does have +1 pitting edema to bilateral lower extremity with hemosiderin deposits noted. Neurologic: Light touch protective sensation diminished bilateral feet. Dermatologic: Healed medial right ankle and lateral wounds. recurrent dorsal foot wound right foot. Significantly improved right plantar foot wound, slight maceration today. healed left medial ankle wound. Right plantar foot wound demonstrate clean granular bases with no deep probing undermining or signs of infection. 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 This appears to contribute to wound formation and poor ambulatory status patient. Patient has diffuse muscular weakness 4 out of 5 to bilateral lower extremity compartments. On the left lower extremity patient has an equinus contracture to the hindfoot. Debridement Note Debridement Note Post-Debridement Measurements and Additional Note: Post-Debridement Measurements/Treatment - Nurse 1 - General Ulcer Assessment Start: 07/12/24 10:45 Freq: Status: Active Protocol: WC.LOWEXT Activity Type Activity Date Activity User E-sign Co-sign Detail Recorded Client Recorded Date Recorded By Document 07/12/24 10:45 KW [id number] 07/12/24 10:49 KW Document 07/19/24 10:44 RB [id number] 07/19/24 10:53 RB Document 07/26/24 10:42 BMF [id number] 07/26/24 10:56 BMF 07/12/24 07/19/24 07/26/24 10:45 10:44 10:42 - Today's Visit Information Type of service Follow-up Visit Follow-up Visit Follow-up Visit (Physician/SHRINKING MACHINE OPERATOR (Physician/SHRINKING MACHINE OPERATOR (Physician/SHRINKING MACHINE OPERATOR ) ) ) Arrival Mode Wheelchair Wheelchair Wheelchair Transfer Assistance Manual Manual Other Transfer Assist (Other) 2 Patient Identification Verified (Name & Yes Yes Yes ) Patient Requires Transmission-Based No No No Precautions Vital Signs Temperature (97.8 F-99.1 F) 97.7 F L 98.1 F 97.7 F L Temperature Source Temporal Temporal Temporal Pulse Rate (60-100) 75 57 L 59 L Pulse Location Monitor Monitor Monitor Respiratory Rate (12-18) 18 18 16 Respiratory rate source Observation Observation Observation Oxygen Delivery Method Room Air Blood Pressure (90/60-120/80) 103/61 126/42 H 103/56 L Blood Pressure Mean (mm Hg) 75 70 71 Source Monitor Monitor Monitor Position Semi-Fowlers Semi-Fowlers Sitting Blood Pressure Location Left Arm Left Arm Right Forearm History Since Last Visit- (Skip if this is Patient's initial visit) Have you changed medications since your No No No last visit? Any new allergies or adverse reactions No No No Had a fall/change in ADL's that may No No No increase risk of falls Signs or symptoms of abuse and/or No No No neglect since last visit Have you been in the hospital since your No No No last visit? Has dressing in place as prescribed Yes Yes Yes Has compression in place as prescribed Yes N/A Yes Has offloadiing in place as prescribed Yes Yes N/A Experienced any changes in pain level or No No No management Left Footwear Surgical Shoe Surgical Shoe Surgical Shoe with pressure with pressure with pressure relief insole relief insole relief insole Right Footwear Surgical Shoe Surgical Shoe Surgical Shoe with pressure with pressure with pressure relief insole relief insole relief insole Pain Scale: 0-10 Numeric Is Patient Pain Free? Yes Yes Yes WC - Nurse 1 - General Ulcer Measurement Start: 07/12/24 10:45 Freq: Status: Active Protocol: Activity Type Activity Date Activity User E-sign Co-sign Detail Recorded Client Recorded Date Recorded By Document 07/12/24 10:45 KW [id number] 07/12/24 10:49 KW Document 07/19/24 10:44 RB [id number] 07/19/24 10:53 RB Document 07/26/24 10:42 BMF [id number] 07/26/24 10:56 BMF 07/12/24 07/19/24 07/26/24 10:45 10:44 10:42 Wound Center Nurse 1 14-right dorsal foot -Combined with other wound No No -Current Size (cm) - Length 2.3 1.6 -Current Size (cm) - Width 4.5 5 -Current Size (cm) - Depth 0.1 0.2 -Total Square Cm 10.35 8.0 -Date of Last Picture (Recall this 07/26/24 field) -Photo Taken Yes -Tunneling No No -Undermining/Tunneling No No -Circular Undermining No No -Exudate Amt Medium Medium -Exudate Type Serosanguineous Serosanguineous -Wound Margin Thickened Thickened -Granulation Amt Medium (34-66%) Medium (34-66%) -Granulation Quality [place] -Slough/Fibrin Yes Yes -Necrosis Amt Medium (34-66%) Medium (34-66%) -Necrotic Tissue Type Adherent Slough Adherent Slough -Structure Exposed N/A -Texture (Yuliet-wound Skin Appearance) Assessed Assessed -Moisture (Yuliet-wound Skin Appearance) Assessed,Dry/ Assessed, Scaly Maceration -Color (Yuliet-wound Skin Appearance) Assessed Assessed -Temperature (Yuliet-wound Skin No Abnormality No Abnormality Appearance) (Pt Warm) (Pt Warm) -Tenderness on Palpation (Yuliet-wound No No Skin Appearance) -Ulcer Cleansing Wound Cleanser Soap and Water -Foul Odor after Cleansing No No -Anesthetic Used 5% Lidocaine 5% Lidocaine Gel Gel 7-right plantar foot -Combined with other wound No No No -Current Size (cm) - Length 2.5 1.5 1.8 -Current Size (cm) - Width 1.3 2 1.8 -Current Size (cm) - Depth 0.1 0.1 0.1 -Total Square Cm 3.25 3.0 3.24 -Date of Last Picture (Recall this 07/26/24 field) -Photo Taken Yes Yes -Tunneling No No No -Undermining/Tunneling No No No -Circular Undermining No No No -Exudate Amt Medium Medium Medium -Exudate Type Serosanguineous Serosanguineous Serosanguineous -Wound Margin Distinct, Thickened Thickened Outline Attached -Granulation Amt Medium (34-66%) Medium (34-66%) Medium (34-66%) -Granulation Quality [place] Pale,[place] -Slough/Fibrin Yes Yes Yes -Necrosis Amt Medium (34-66%) Medium (34-66%) Medium (34-66%) -Necrotic Tissue Type Adherent Slough Adherent Slough Adherent Slough -Structure Exposed N/A N/A -Texture (Yuliet-wound Skin Appearance) Assessed, Assessed,Callus Assessed Scarring -Moisture (Yuliet-wound Skin Appearance) Assessed,Dry/ Assessed,Dry/ Assessed, Scaly Scaly Maceration,Dry/ Scaly -Color (Yuliet-wound Skin Appearance) Assessed Assessed Assessed -Temperature (Yuliet-wound Skin No Abnormality No Abnormality No Abnormality Appearance) (Pt Warm) (Pt Warm) (Pt Warm) -Tenderness on Palpation (Yuliet-wound No No No Skin Appearance) -Ulcer Cleansing Wound Cleanser Wound Cleanser Soap and Water -Foul Odor after Cleansing No No No -Anesthetic Used 5% Lidocaine 5% Lidocaine 5% Lidocaine Gel Gel Gel Lower Limb Edema Present Yes Yes Right Calf (cm) 34.5 29 Right Ankle (cm) 22.5 25 Left Calf (cm) 32 Left Ankle (cm) 23 WC - Nurse 2 - General Ulcer CM Notes Start: 07/12/24 10:45 Freq: Status: Active Protocol: Activity Type Activity Date Activity User E-sign Co-sign Detail Recorded Client Recorded Date Recorded By Document 07/12/24 11:11 [id number] 07/12/24 11:13 JF Document 07/19/24 11:10 JF [id number] 07/19/24 11:14 JF Document 07/26/24 11:07 JF [id number] 07/26/24 11:09 JF 07/12/24 07/19/24 07/26/24 11:11 11:10 11:07 Wound Center Nurse 2 14-right dorsal foot -Time 11:12 11:11 11:07 -Correct Patient Yes Yes Yes -Correct Side, Site, Position Yes Yes Yes -Correct Procedure Yes Yes Yes -Procedure Performed Yes Yes Yes -Type of Procedure Debridement Debridement Debridement -Clinical Debridement Subcutaneous Subcutaneous Subcutaneous -Tissue Removed Subcutaneous Subcutaneous Subcutaneous -Post Debridement (cm) - Length 3.5 4.2 2.5 -Post Debridement (cm) - Width 1 0.5 3.2 -Post Debridement (cm) - Depth 0.1 0.1 0.1 -Total Square (Post) (cm) 3.5 2.10 8.00 -Area of Debridement (cm) - Length 3.5 4.2 2.5 -Area of Debridement (cm) - Width 1 0.5 3.2 -Total Square (Area) (cm) 3.5 2.10 8.00 -Tunneling No No No -Undermining/Tunneling No No No -Circular Undermining No No No -Wound/Ulcer Outcome Not Healed Not Healed Not Healed -Ulcer Cleansing Rinsed/ Rinsed/ Rinsed/ Irrigated with Irrigated with Irrigated with Saline Saline Saline -Foul Odor after Cleansing No No No -Bioengineered Tissue No No No -Bleeding Controlled with Pressure Pressure Pressure -Treatment Response Procedure Procedure Procedure Tolerated Well Tolerated Well Tolerated Well -Offloading Yes Yes No -Type of Offloading Surgical Shoe Surgical Shoe -Debridement - Subq, 1st 20sq cm Yes Yes No 7-right plantar foot -Time 11:11 11:12 11:08 -Correct Patient Yes Yes Yes -Correct Side, Site, Position Yes Yes Yes -Correct Procedure Yes Yes Yes -Procedure Performed Yes Yes Yes -Type of Procedure Debridement Debridement Debridement -Clinical Debridement Subcutaneous Subcutaneous Subcutaneous -Tissue Removed Subcutaneous Subcutaneous Subcutaneous -Post Debridement (cm) - Length 1.0 1.4 5.0 -Post Debridement (cm) - Width 2.5 1.8 1.0 -Post Debridement (cm) - Depth 0.2 0.2 0.2 -Total Square (Post) (cm) 2.50 2.52 5.00 -Area of Debridement (cm) - Length 1.0 1.4 5.0 -Area of Debridement (cm) - Width 2.5 1.8 1.0 -Total Square (Area) (cm) 2.50 2.52 5.00 -Tunneling No No No -Undermining/Tunneling No No No -Circular Undermining No No No -Wound/Ulcer Outcome Not Healed Not Healed Not Healed -Ulcer Cleansing Rinsed/ Rinsed/ Rinsed/ Irrigated with Irrigated with Irrigated with Saline Saline Saline -Foul Odor after Cleansing No No No -Bioengineered Tissue No No No -Bleeding Controlled with Pressure Pressure Pressure -Treatment Response Procedure Procedure Procedure Tolerated Well Tolerated Well Tolerated Well -Offloading Yes Yes No -Type of Offloading Surgical Shoe Surgical Shoe -Debridement - Subq, 1st 20sq cm No No Yes Pain Scale: 0-10 Numeric Is Patient Pain Free? Yes Yes Yes WC - Nurse 3 - General Ulcer D/C NN Start: 07/12/24 10:45 Freq: Status: Active Protocol: Activity Type Activity Date Activity User E-sign Co-sign Detail Recorded Client Recorded Date Recorded By Document 07/12/24 11:52 RB [id number] 07/12/24 11:54 RB Document 07/19/24 11:24 ML [id number] 07/19/24 11:26 ML 07/12/24 07/19/24 11:52 11:24 Wound Care Center Nurse 3 14-right dorsal foot -Ulcer Cleansing Rinsed/ Rinsed/ Irrigated with Irrigated with Saline Saline -Foul Odor after Cleansing No -Primary Dressing Applied Aquacel AG 4x4 Aquacel AG 4x4 -Other Dressing bridgette -Primary Dressing Covered/Secured with Dry Gauze,Dry Dry Gauze & Gauze & Roll Roll Gauze, Gauze,Secured Secured with with Tape Tape -Aquacel AG 4x4 1 7-right plantar foot -Ulcer Cleansing Rinsed/ Rinsed/ Irrigated with Irrigated with Saline Saline -Foul Odor after Cleansing No -Primary Dressing Applied Aquacel AG 4x4 -Other Dressing aquacel AG/ ABD bridgette -Primary Dressing Covered/Secured with Dry Gauze,Dry Dry Gauze & Gauze & Roll Roll Gauze Gauze,Secured with Tape -Aquacel AG 4x4 0 bilateral -Other bridgette Treatment Response Procedure Tolerated Well Pain Scale: 0-10 Numeric Is Patient Pain Free? Yes Yes WC - Visit Discharge Discharge Condition Stable Ambulatory Status Wheelchair Transportation [facility] transport Medication Reconcilliation completed & No provided to patient/care provider Clinical Summary of Care Provided Yes Assessment/Plan Assessment/Plan (1) Venous insufficiency (chronic) (peripheral): CODE(S): I87.2 - Venous insufficiency (chronic) (peripheral) (2) Other specified peripheral vascular diseases: CODE(S): I73.89 - Other specified peripheral vascular diseases (3) Cellulitis of right lower limb: CODE(S): L03.115 - Cellulitis of right lower limb (4) Non-pressure 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 foot with fat layer exposed: CODE(S): L97.512 - Non-pressure 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 Patient tolerated procedure well. Topical anesthesia used. Hemostasis obtained with light compression. Pre and postdebridement measurements documented nursing notes. Wound care -right plantar ulcer will plan for daily dakins/DSD No weightbearing restrictions at current. This may change pending patient's healing status. No additional antibiotics at this time plan for advance wound care grafting - pending at this time Follow-up in 4 weeks
--- NOTE | 2024-07-27 09:04 | WC ---
PHOTO 07/26/24 RIGHT DORSAL FOOT
--- NOTE | 2024-07-27 09:05 | WC ---
PHOTO 07/26/24 RIGHT PLANTAR FOOT
== END 2024-07-29 23:59 | disposition skilled nursing facility (03) ==
LOC: WC 10:30
PROVIDERS: PCP Family Medicine; Referring Provider Family Medicine; Visit Provider Podiatrist
DX: L97.512 Non-pressure 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 foot with fat layer exposed (principal); L97.522 Non-pressure chronic ulcer of other part of left foot with fat layer exposed; I87.2 Venous insufficiency (chronic) (peripheral); L03.115 Cellulitis of right lower limb; Q66.11 Congenital talipes calcaneovarus, right foot; R53.1 Weakness; M79.674 Pain in right toe(s); G62.9 Polyneuropathy, unspecified; I73.9 Peripheral vascular disease, unspecified; M79.675 Pain in left toe(s); B35.1 Tinea unguium; M24.561 Contracture, right knee
CPT/HCPCS: 11042

== ENCOUNTER → 2024-08-18 | Outpatient (CLI) | payer MEDICARE, BC, SELFPAY ==
--- NOTE | 2024-08-18 09:05 | AAVD_ITS ---
Reason For Study Reason For Study: HX BLE Iliac Stents Inferior Vena Cava Proximal inferior vena cava measures 1.08 x 1.29 cm. in the cross-sectional axis. Proximal inferior vena cava measures 1.12 cm. in the longitudinal axis. Mid inferior vena cava measures 1.47 x 1.52 cm. in the cross-sectional axis. Mid inferior vena cava measures 1.30 cm. in the longitudinal axis. Distal inferior vena cava measures 1.40 x 1.59 cm. in the cross-sectional axis. Distal inferior vena cava measures 1.26 cm. in the longitudinal axis. The inferior vena cava has spontaneous, phasic flow throughout. Left Common Iliac Vein Left common iliac vein measures 0.96 x 1.18 cm. in the cross-sectional axis. Left common iliac vein measures 1.35 cm. in the longitudinal axis. The left common iliac vein has spontaneous, phasic flow throughout. Stent noted. Right Common Iliac Vein Right common iliac vein measures 1.08 x 1.06 cm. in the cross-sectional axis. Right common iliac vein measures 1.05 cm. in the longitudinal axis. The right common iliac vein has spontaneous, phasic flow throughout. Stent Noted. Procedure Aorta IVC Iliac vasculature or bypass grafts [id number]. The exam was diagnostic. Exam performed in department. VL/Abd Aortic/IVC Duplex scan Interpretation Summary Patent inferior vena cava and bilateral iliac vein stents with normal venous fl ow pattern. Ordering Physician: Juliet Christopher Referring Physician: Jabari Alfonso Performed By: Colby Jerome, RVT
== END | disposition home or self-care (01) ==
PROVIDERS: PCP Family Medicine; Referring Provider Physician Assistant; Visit Provider Physician Assistant
DX: Z48.812 Encounter for surgical aftercare following surgery on the circulatory system (principal); I87.2 Venous insufficiency (chronic) (peripheral); R60.0 Localized edema
CPT/HCPCS: 93978

== ENCOUNTER 2024-08-23 10:30 | Outpatient (RCR) | payer MEDICARE, BC, SELFPAY ==
[2024-07-30 00:18] VITALS: BP 103/56; PULSE 59; RESP 16; TEMP 36.5
[2024-08-02 10:49] VITALS: BP 100/34; PULSE 81; RESP 18; TEMP 36.1
--- NOTE | 2024-08-02 11:07 | PCM.WC.PN ---
History of Present Illness Date of Service: 08/02/24 Chief Complaint: Nonhealing bilateral lower extremity ulcers History of Wound: 84-year-old male presents with chronic ulcerations to right lower extremity in setting of venous insufficiency and right lower extremity flexion contracture about the knee flexion contracture about the ankle as well as varus deformity right ankle. Patient is minimally ambulatory and only transfers from bed to wheelchair and wheelchair to bed. Patient presents for follow-up and denies any constitutional symptoms. Patient denies any pain. Patient notes some increased drainage and swelling today. Objective Data Objective Data Vital Signs: Vital Signs Temp Pulse Resp BP 97 F L 81 18 100/34 L 08/02/24 10:49 08/02/24 10:49 08/02/24 10:49 08/02/24 10:49 Physical Exam Narrative Vascular: Dorsalis pedis posterior tibial pulses palpable to bilateral lower extremity. Atrophic skin changes such as shiny taut appearance noted with absent digital hair growth. Patient does have +1 pitting edema to bilateral lower extremity with hemosiderin deposits noted. Neurologic: Light touch protective sensation diminished bilateral feet. Dermatologic: Healed medial right ankle and lateral wounds. recurrent dorsal foot wound right foot. right plantar foot wound. Increased maceration to periwound edges to dorsal foot and right plantar foot along with periwound erythema edema and warmth. Moderate serosanguineous drainage noted. No deep probing undermining. Wounds demonstrate clean granular bases postdebridement. 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 This appears to contribute to wound formation and poor ambulatory status patient. Patient has diffuse muscular weakness 4 out of 5 to bilateral lower extremity compartments. On the left lower extremity patient has an equinus contracture to the hindfoot. Debridement Note Debridement Note Post-Debridement Measurements and Additional Note: Post-Debridement Measurements/Treatment SASHA - Nurse 1 - General Ulcer Assessment Start: 08/02/24 10:49 Freq: Status: Active Protocol: DHIRAJEXT Activity Type Activity Date Activity User E-sign Co-sign Detail Recorded Client Recorded Date Recorded By Document 08/02/24 10:49 JERILYN [id number] 08/02/24 10:57 JERILYN 08/02/24 10:49 - Today's Visit Information Type of service Follow-up Visit (Physician/VASCULAR TECHNICIAN ) Arrival Mode Wheelchair Transfer Assistance Manual Patient Identification Verified (Name & Yes ) Vital Signs Temperature (97.8 F-99.1 F) 97 F L Temperature Source Temporal Pulse Rate (60-100) 81 Pulse Location Monitor Respiratory Rate (12-18) 18 Respiratory rate source Observation Blood Pressure (90/60-120/80) 100/34 L Blood Pressure Mean (mm Hg) 56 Source Monitor Position Sitting Blood Pressure Location Right Forearm History Since Last Visit- (Skip if this is Patient's initial visit) Have you changed medications since your No last visit? Any new allergies or adverse reactions No Had a fall/change in ADL's that may No increase risk of falls Signs or symptoms of abuse and/or No neglect since last visit Have you been in the hospital since your No last visit? Has dressing in place as prescribed Yes Has compression in place as prescribed Yes Has offloadiing in place as prescribed Yes Experienced any changes in pain level or No management Left Footwear Surgical Shoe with pressure relief insole Right Footwear Surgical Shoe with pressure relief insole Pain Scale: 0-10 Numeric Is Patient Pain Free? Yes - Nurse 1 - General Ulcer Measurement Start: 08/02/24 10:49 Freq: Status: Active Protocol: Activity Type Activity Date Activity User E-sign Co-sign Detail Recorded Client Recorded Date Recorded By Document 08/02/24 10:49 JERILYN [id number] 08/02/24 10:57 JERILYN 08/02/24 10:49 Wound Center Nurse 1 14-right dorsal foot -Combined with other wound No -Current Size (cm) - Length 2.5 -Current Size (cm) - Width 6.6 -Current Size (cm) - Depth 0.1 -Total Square Cm 16.50 -Photo Taken Yes -Tunneling No -Undermining/Tunneling No -Circular Undermining No -Exudate Amt Medium -Exudate Type Serosanguineous -Wound Margin Thickened -Granulation Amt Medium (34-66%) -Granulation Quality [place] -Slough/Fibrin Yes -Necrosis Amt Medium (34-66%) -Necrotic Tissue Type Adherent Slough -Structure Exposed N/A -Texture (Yuliet-wound Skin Appearance) Assessed -Moisture (Yuliet-wound Skin Appearance) Maceration -Color (Yuliet-wound Skin Appearance) Assessed -Temperature (Yuliet-wound Skin No Abnormality Appearance) (Pt Warm) -Tenderness on Palpation (Yuliet-wound No Skin Appearance) -Ulcer Cleansing Wound Cleanser -Foul Odor after Cleansing No -Anesthetic Used 4% Lidocaine Solution 7-right plantar foot -Combined with other wound No -Current Size (cm) - Length 2.6 -Current Size (cm) - Width 3.5 -Current Size (cm) - Depth 0.1 -Total Square Cm 9.10 -Photo Taken Yes -Tunneling No -Undermining/Tunneling No -Circular Undermining No -Exudate Amt Medium -Exudate Type Serosanguineous -Wound Margin Thickened -Granulation Amt Medium (34-66%) -Granulation Quality [place] -Slough/Fibrin Yes -Necrosis Amt Medium (34-66%) -Necrotic Tissue Type Adherent Slough -Structure Exposed N/A -Texture (Yuliet-wound Skin Appearance) Assessed -Moisture (Yuliet-wound Skin Appearance) Maceration -Color (Yuliet-wound Skin Appearance) Assessed -Temperature (Yuliet-wound Skin No Abnormality Appearance) (Pt Warm) -Tenderness on Palpation (Yuliet-wound No Skin Appearance) -Ulcer Cleansing Wound Cleanser -Anesthetic Used 4% Lidocaine Solution Assessment/Plan Assessment/Plan (1) Venous insufficiency (chronic) (peripheral): CODE(S): I87.2 - Venous insufficiency (chronic) (peripheral) (2) Other specified peripheral vascular diseases: CODE(S): I73.89 - Other specified peripheral vascular diseases (3) Cellulitis of right lower limb: CODE(S): L03.115 - Cellulitis of right lower limb (4) Non-pressure 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 foot with fat layer exposed: CODE(S): L97.512 - Non-pressure 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 Patient tolerated procedure well. Topical anesthesia used. Hemostasis obtained with light compression. Pre and postdebridement measurements documented nursing notes. Patient approved for graft. But there is concern for new onset cellulitis to right lower extremity. Wound was flushed with saline swab cultures were taken. Patient was started on p.o. doxycycline and ciprofloxacin. Today wound was dressed with Betadine soaked gauze 4 x 4's dry sterile dressing and a 3M compression wrap. This will be kept on for 3 days and then we will continue daily Betadine dressings at the senior living facility. Patient weightbears only to transfer and will continue to do this. Will consider apical graft application on follow-up pending resolution of cellulitis Follow-up weekly
--- NOTE | 2024-08-03 12:13 | WC ---
PHOTO 08/02/24 RIGHT PLANTAR
--- NOTE | 2024-08-03 12:14 | WC ---
PHOTO 08/02/24 DORSAL RIGHT FOOT
[2024-08-09 10:48] VITALS: BP 110/64; PULSE 74; RESP 18; TEMP 36.9
--- NOTE | 2024-08-10 15:16 | NURSING ---
PHOTO 08/09/24 RIGHT FOOT
--- NOTE | 2024-08-10 15:17 | NURSING ---
PHOTO 08/09/24 RIGHT FOOT
--- NOTE | 2024-08-12 16:18 | PCM.WC.HP ---
History of Present Illness Date of Service: 08/09/24 Chief Complaint: Chronic, non-healing, right lower extremity ulcers History of Wound: This is an 84-year-old male with chronic ulcerations and excoriations in his right lower extremity, and a history of chronic venous insufficiency. Patient suffers from polyneuropathy and debility. Is a patient of Dr. John Anna, Telephone Advice Nurse, for whom the patient is evaluated today. The patient has a history of edema in his lower extremities. He is minimally ambulatory. 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 The patient is minimally ambulatory and only transfers from bed to wheelchair and wheelchair to bed. Cellulitis was diagnosed at the patient's last visit on August 02, 2024, and the patient was started on doxycycline and Cipro empirically. Cultures were obtained at that time, and since have been found to be positive for Proteus mirabilis, Enterococcus faecalis, coagulase-negative staph, gram-positive gio, Serratia marcescens, and Providencia stuartii. It is noted that Proteus species were noted in 2 previous recent cultures. The patient is a resident of the care home. It is noted that the patient has previously undergone angioplasty and stent placement in the common iliac veins bilaterally, a procedure performed by Dr. Hossein Arvizu on July 09, 2023. [facility] Medical History Cellulitis of leg, right Debility Ulcer of right heel and midfoot with fat layer exposed Ulcer of left lower extremity with fat layer exposed Ulcer of right lower extremity with fat layer exposed Hypertension Diabetes Vascular dementia Hyperlipidemia Polyneuropathy Heart failure Peripheral vascular disease Home Medications ?Medication ?Instructions ?Recorded ?Last Taken ?Type atorvastatin 40 mg tablet 40 mg PO QHS 10/09/22 Unknown History cyanocobalamin (vitamin B-12) 500 500 mcg PO DAILY 10/09/22 Unknown History mcg tablet diphenhydramine 25 2 tab PO QHS PRN Pain 10/09/22 Unknown History mg-acetaminophen 500 mg tablet (Acetaminophen PM Extra Strength) docusate sodium 100 mg capsule 100 mg PO BID 10/09/22 Unknown History furosemide 40 mg tablet (Lasix) 40 mg PO DAILY 10/09/22 Unknown History gabapentin 300 mg capsule 300 mg PO TID 10/09/22 Unknown History magnesium hydroxide 400 mg/5 mL 30 ml PO DAILY PRN Constipation 10/09/22 Unknown History oral suspension (Milk of Magnesia) metformin 500 mg tablet,extended 500 mg PO DAILY 10/09/22 Unknown History release 24 hr multivitamin 1 tab PO DAILY 10/09/22 Unknown History polyethylene glycol 3350 17 gram 17 g PO DAILY 10/09/22 Unknown History oral powder packet (Miralax) sennosides 8.6 mg capsule (senna) 8.6 mg PO DAILY 10/09/22 Unknown History tamsulosin 0.4 mg capsule 0.8 mg PO QHS 10/09/22 Unknown History ascorbic acid (vitamin C) 500 mg mg PO 08/13/23 Unknown History capsule cholecalciferol (vitamin D3) 25 25 mcg PO DAILY 08/13/23 Unknown History mcg (1,000 unit) capsule clopidogrel 75 mg tablet (Plavix) 75 mg PO DAILY 08/13/23 Unknown History warfarin 5 mg tablet 9 mg PO DAILY 08/13/23 Unknown History zinc acetate 50 mg (zinc) capsule 50 mg PO DAILY 08/13/23 Unknown History Allergy/AdvReac Type Severity Reaction Status Date / Time No Known Allergies Allergy Verified 01/13/24 11:13 Family History Other CAD (coronary artery disease) Colon cancer Heart disease Hypertension Myocardial infarction Thyroid disorder Social History Smoking Status: Never smoker Physical Exam Const alert, oriented x3, no apparent distress, no limitations and well nourished General Appearance: cooperative, comfortable and well developed Orientation / Consciousness: awake, oriented to person, oriented to place and oriented to time HEENT normocephalic and head/scalp atraumatic Head and Scalp: normal to inspection, normocephalic and atraumatic Face and Sinus: normal facial exam Nose: external nose normal External Ear: external ears normal Eyes PERRL and EOMs intact bilaterally General Eye: normal appearance of both eyes Resp normal respiratory effort, normal air movement, no retractions and no use of accessory muscles Effort and Inspection: able to speak in complete sentences Extremity no calf tenderness General Extremity: Negative for clubbing or cyanosis Skin Wound Narrative: An open wound is noted on the distal and dorsal portion of the right midfoot. It is full-thickness, extending into the subcutaneous tissues. Dimensions are documented elsewhere. There is no significant undermining. A large portion of the foot and lower leg demonstrate severe, scaly dermatitic changes and scattered superficial excoriations. A flexion contracture of the knee and an equinus contracture of the ankle with a varus hindfoot alignment are noted. Neuro oriented x3, CN's II-XII intact bilaterally, moves all extremities, no focal motor deficits and no sensory deficits noted Sensorium / Orientation: awake, alert, oriented to person, oriented to place and oriented to time Speech: speech normal Psych Appearance: grossly normal and appropriate Attitude: calm Activity / Motor Behavior: appropriate eye contact Speech: normal speech Mood & Affect: euthymic mood Thought Process: normal thought process Thought Content: normal thought content Attention / Concentration: attention grossly intact Debridement Note Debridement Note Wound debrided: Distal right foot ulceration Laterality: Right Type of Debridement: Excisional debridement Anesthesia Used: 5% Lidocaine Gel Depth: Down to and including healthy tissue and in the subcutaneous layer Percentage of wound debrided: 100 Instrument Used: 5mm curette Tissue Removed: Bioburden and nonviable tissue Severity: Fat Layer Exposed Amount of bleeding with debridement: Mild Bleeding Controlled with: Compression and gauze Patient tolerated procedure: Patient tolerated procedure well Post-Debridement Measurements and Additional Note: Post-Debridement Measurements/Treatment - Nurse 1 - General Ulcer Assessment Start: 08/02/24 10:49 Freq: Status: Active Protocol: SASHA.[email or web address] Activity Type Activity Date Activity User E-sign Co-sign Detail Recorded Client Recorded Date Recorded By Document 08/02/24 10:49 [id number] 08/02/24 10:57 RB Document 08/09/24 10:48 RB [id number] 08/09/24 10:50 RB 08/02/24 08/09/24 10:49 10:48 - Today's Visit Information Type of service Follow-up Visit Follow-up Visit (Physician/ENGINEERING MECHANIC (Physician/ENGINEERING MECHANIC ) ) Arrival Mode Wheelchair Wheelchair Transfer Assistance Manual Manual Patient Identification Verified (Name & Yes Yes ) Patient Requires Transmission-Based No Precautions Vital Signs Temperature (97.8 F-99.1 F) 97 F L 98.4 F Temperature Source Temporal Temporal Pulse Rate (60-100) 81 74 Pulse Location Monitor Monitor Respiratory Rate (12-18) 18 18 Respiratory rate source Observation Observation Blood Pressure (90/60-120/80) 100/34 L 110/64 Blood Pressure Mean 56 79 Source Monitor Monitor Position Sitting Semi-Fowlers Blood Pressure Location Right Forearm Left Arm History Since Last Visit- (Skip if this is Patient's initial visit) Have you changed medications since your No No last visit? Any new allergies or adverse reactions No No Had a fall/change in ADL's that may No No increase risk of falls Signs or symptoms of abuse and/or No No neglect since last visit Have you been in the hospital since your No No last visit? Has dressing in place as prescribed Yes Yes Has compression in place as prescribed Yes Yes Has offloadiing in place as prescribed Yes Yes Experienced any changes in pain level or No No management Left Footwear Surgical Shoe Surgical Shoe with pressure with pressure relief insole relief insole Right Footwear Surgical Shoe Surgical Shoe with pressure with pressure relief insole relief insole Pain Scale: 0-10 Numeric Is Patient Pain Free? Yes No right foot -Description Burning -Intensity 4 -Duration (hours) Acute -Pain Behavior Withdrawal from Touch -Pain Aggravating Factors Exercise/ Activity, Debridement -Alleviating Factors/Interventions None WC - Nurse 1 - General Ulcer Measurement Start: 08/02/24 10:49 Freq: Status: Active Protocol: Activity Type Activity Date Activity User E-sign Co-sign Detail Recorded Client Recorded Date Recorded By Document 08/02/24 10:49 RB [id number] 08/02/24 10:57 RB Document 08/09/24 10:48 RB [id number] 08/09/24 10:50 RB 08/02/24 08/09/24 10:49 10:48 Wound Center Nurse 1 14-right dorsal foot -Combined with other wound No No -Current Size (cm) - Length 2.5 1.5 -Current Size (cm) - Width 6.6 7.5 -Current Size (cm) - Depth 0.1 0.1 -Total Square Cm 16.50 11.25 -Photo Taken Yes Yes -Tunneling No No -Undermining/Tunneling No No -Circular Undermining No No -Exudate Amt Medium Medium -Exudate Type Serosanguineous Serosanguineous -Wound Margin Thickened Distinct, Outline Attached -Granulation Amt Medium (34-66%) Large (67-100%) -Granulation Quality [place] -Slough/Fibrin Yes Yes -Necrosis Amt Medium (34-66%) Medium (34-66%) -Necrotic Tissue Type Adherent Slough Adherent Slough -Structure Exposed N/A N/A -Texture (Yuliet-wound Skin Appearance) Assessed Assessed -Moisture (Yuliet-wound Skin Appearance) Maceration Maceration -Color (Yuliet-wound Skin Appearance) Assessed Assessed -Temperature (Yuliet-wound Skin No Abnormality No Abnormality Appearance) (Pt Warm) (Pt Warm) -Tenderness on Palpation (Yuliet-wound No No Skin Appearance) -Ulcer Cleansing Wound Cleanser Wound Cleanser -Foul Odor after Cleansing No No -Anesthetic Used 4% Lidocaine 5% Lidocaine Solution Gel 7-right plantar foot -Combined with other wound No No -Current Size (cm) - Length 2.6 3.5 -Current Size (cm) - Width 3.5 3.5 -Current Size (cm) - Depth 0.1 0.1 -Total Square Cm 9.10 12.25 -Photo Taken Yes Yes -Tunneling No No -Undermining/Tunneling No No -Circular Undermining No No -Exudate Amt Medium Medium -Exudate Type Serosanguineous Serosanguineous -Wound Margin Thickened Distinct, Outline Attached -Granulation Amt Medium (34-66%) Medium (34-66%) -Granulation Quality [place] -Slough/Fibrin Yes Yes -Necrosis Amt Medium (34-66%) Medium (34-66%) -Necrotic Tissue Type Adherent Slough Adherent Slough -Structure Exposed N/A N/A -Texture (Yuliet-wound Skin Appearance) Assessed Assessed -Moisture (Yuliet-wound Skin Appearance) Maceration Maceration -Color (Yuliet-wound Skin Appearance) Assessed Assessed -Temperature (Yuliet-wound Skin No Abnormality No Abnormality Appearance) (Pt Warm) (Pt Warm) -Tenderness on Palpation (Yuliet-wound No No Skin Appearance) -Ulcer Cleansing Wound Cleanser Wound Cleanser -Foul Odor after Cleansing No -Anesthetic Used 4% Lidocaine 5% Lidocaine Solution Gel Lower Limb Edema Present Yes Right Calf (cm) 31 Right Ankle (cm) 23.1 WC - Nurse 2 - General Ulcer CM Notes Start: 08/02/24 10:49 Freq: Status: Active Protocol: Activity Type Activity Date Activity User E-sign Co-sign Detail Recorded Client Recorded Date Recorded By Document 08/02/24 11:08 JUAN RAMON [id number] 08/02/24 11:09 JF Document 08/09/24 11:16 JUAN RAMON [id number] 08/09/24 11:19 JF Edit Result 08/09/24 11:16 JF (1) 000 08/11/24 08:23 JF (1) 14-right dorsal foot - Debridement - Subq, 1st 20sq cm Yes => No 08/02/24 08/09/24 11:08 11:16 Wound Center Nurse 2 14-right dorsal foot -Time 11:08 11:16 -Correct Patient Yes No -Correct Side, Site, Position Yes No -Correct Procedure Yes No -Procedure Performed Yes No -Type of Procedure Debridement -Clinical Debridement Subcutaneous -Tissue Removed Subcutaneous -Post Debridement (cm) - Length 7 -Post Debridement (cm) - Width 3.5 -Post Debridement (cm) - Depth 0.1 -Total Square (Post) (cm) 24.5 -Area of Debridement (cm) - Length 7 -Area of Debridement (cm) - Width 3.5 -Total Square (Area) (cm) 24.5 -Tunneling No No -Undermining/Tunneling No No -Circular Undermining No No -Wound/Ulcer Outcome Not Healed Not Healed -Ulcer Cleansing Rinsed/ Rinsed/ Irrigated with Irrigated with Saline Saline -Foul Odor after Cleansing No No -Bioengineered Tissue No -Bleeding Controlled with Pressure -Treatment Response Procedure Procedure Tolerated Well Tolerated Well -Offloading No No -Debridement - Subq, 1st 20sq cm No No 7-right plantar foot -Time 11:08 -Correct Patient Yes Yes -Correct Side, Site, Position Yes Yes -Correct Procedure Yes Yes -Procedure Performed Yes Yes -Type of Procedure Debridement Debridement -Clinical Debridement Subcutaneous Subcutaneous -Tissue Removed Subcutaneous Subcutaneous -Post Debridement (cm) - Length 5.5 0.8 -Post Debridement (cm) - Width 3.5 1.5 -Post Debridement (cm) - Depth 0.1 0.3 -Total Square (Post) (cm) 19.25 1.20 -Area of Debridement (cm) - Length 5.5 0.8 -Area of Debridement (cm) - Width 3.5 1.5 -Total Square (Area) (cm) 19.25 1.20 -Tunneling No No -Undermining/Tunneling No No -Circular Undermining No No -Wound/Ulcer Outcome Not Healed Not Healed -Ulcer Cleansing Rinsed/ Rinsed/ Irrigated with Irrigated with Saline Saline -Foul Odor after Cleansing No No -Bioengineered Tissue No No -Bleeding Controlled with Pressure Pressure -Treatment Response Procedure Procedure Tolerated Well Tolerated Well -Offloading No No -Debridement - Subq, 1st 20sq cm Yes Yes -Debridement, SubQ, ea addt'l 20sq cm 2 or part thereof Pain Scale: 0-10 Numeric Is Patient Pain Free? Yes Yes - Nurse 3 - General Ulcer D/C NN Start: 08/02/24 10:49 Freq: Status: Active Protocol: Activity Type Activity Date Activity User E-sign Co-sign Detail Recorded Client Recorded Date Recorded By Document 08/02/24 11:23 JF [id number] 08/02/24 11:24 Document 08/09/24 11:23 KW [id number] 08/09/24 11:27 KW 08/02/24 08/09/24 11:23 11:23 Wound Care Center Nurse 3 14-right dorsal foot -Ulcer Cleansing Rinsed/ Irrigated with Saline -Foul Odor after Cleansing No -Primary Dressing Applied Optilok 6.5x10 Nugauze, Iodoform 1/2in -Primary Dressing Covered/Secured with Dry Gauze -Nugauze, Iodoform 1/2in 1 -Optilok 6.5x10 1 7-right plantar foot -Ulcer Cleansing Rinsed/ Irrigated with Saline -Foul Odor after Cleansing No -Primary Dressing Applied Optilok 6.5x10 -Other Dressing betadine iodoform -Primary Dressing Covered/Secured with Dry Gauze -Optilok 6.5x10 1 Right -Multi-Layered Wrap Application Multi-Layer Unna Boot - Comp - Right ($ Right ($) ) Pain Scale: 0-10 Numeric Is Patient Pain Free? Yes Yes - Visit Discharge Discharge Condition Stable Stable Ambulatory Status Wheelchair Transportation Private Auto Medication Reconcilliation completed & Yes No provided to patient/care provider Clinical Summary of Care Provided Yes Yes Charges/Coding Multi Select Codes Visit Charges Office Visit/Consults: 45350 OV L3 New 30 min Integumentary Integumentary CPT Codes: 83834 Samina subq tissue 20 sq cm/< Assessment/Plan Assessment/Plan (1) Non-pressure 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 foot with fat layer exposed: CODE(S): L97.512 - Non-pressure 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 foot with fat layer exposed (2) Cellulitis of leg, right: CODE(S): L03.115 - Cellulitis of right lower limb (3) Venous insufficiency (chronic) (peripheral): CODE(S): I87.2 - Venous insufficiency (chronic) (peripheral) (4) Bilateral lower extremity edema: CODE(S): R60.0 - Localized edema (5) Tinea unguium: CODE(S): B35.1 - Tinea unguium (6) Debility: CODE(S): R53.81 - Other malaise (7) Polyneuropathy: CODE(S): G62.9 - Polyneuropathy, unspecified PLAN: Plan This is an 84-year-old male with deformities of his right lower extremity. He has an ulceration on the distal portion of his right foot. He also has severe dermatitic changes to the right foot and distal right lower extremity. A culture result from 1 week ago is positive for Proteus mirabilis, Enterococcus faecalis, coagulase-negative staph, gram-positive rods, Serratia marcescens, and Providencia stuartii. In accordance with the sensitivity results, the patient has been instructed to discontinue the doxycycline and Cipro, which were started on August 02, 2024. In its place, Bactrim double strength p.o. twice daily for 7 days and Augmentin 500 mg twice daily for 7 days have been prescribed. We are to implement the use of moistened iodoform gauze packing to the ulceration on the distal right foot. Relative to the severe dermatitic changes in the distal right lower extremity, an Unna compression boot is to be applied. Ideally, it would be preferred to change the Unna compression boot twice weekly, but it is unlikely the patient would return twice a week, given his residence in a care home. The patient will return in 1 week for reevaluation. Total time: 34 minutes
[2024-08-16 10:41] VITALS: BP 110/43; PULSE 78; RESP 18; TEMP 36.9
--- NOTE | 2024-08-17 08:09 | NURSING ---
PHOTO 08/16/24 Right Plantar Foot
--- NOTE | 2024-08-17 08:10 | NURSING ---
PHOTO 08/16/24 Right Dorsal Foot
--- NOTE | 2024-08-18 15:43 | PCM.WC.HP ---
History of Present Illness Date of Service: 08/16/24 Chief Complaint: Chronic, non-healing, right lower extremity ulcers History of Wound: This is an 84-year-old male with chronic ulcerations, dermatitis, and excoriations in his right lower extremity, and a history of chronic venous insufficiency. 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 He is a patient of Dr. John Anna, [employer], for whom the patient is evaluated today. The patient has a history of edema in his lower extremities. He is minimally ambulatory. 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 The patient is minimally ambulatory and only transfers from bed to wheelchair and wheelchair to bed. Cellulitis was diagnosed on August 02, 2024, and the patient was started on doxycycline and Cipro empirically. Cultures were obtained at that time, and were positive for Proteus mirabilis, Enterococcus faecalis, coagulase-negative staph, gram-positive gio, Serratia marcescens, and Providencia stuartii. It is noted that Proteus species were noted in 2 previous recent cultures. The [facility] a [facility]. 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 Hossein Arvizu on July 09, 2023. FORMERLY [facility] Medical History Cellulitis of leg, right Debility Ulcer of right heel and midfoot with fat layer exposed Ulcer of left lower extremity with fat layer exposed Ulcer of right lower extremity with fat layer exposed Hypertension Diabetes Vascular dementia Hyperlipidemia Polyneuropathy Heart failure Peripheral vascular disease Home Medications ?Medication ?Instructions ?Recorded ?Last Taken ?Type atorvastatin 40 mg tablet 40 mg PO QHS 10/09/22 Unknown History cyanocobalamin (vitamin B-12) 500 500 mcg PO DAILY 10/09/22 Unknown History mcg tablet diphenhydramine 25 2 tab PO QHS PRN Pain 10/09/22 Unknown History mg-acetaminophen 500 mg tablet (Acetaminophen PM Extra Strength) docusate sodium 100 mg capsule 100 mg PO BID 10/09/22 Unknown History furosemide 40 mg tablet (Lasix) 40 mg PO DAILY 10/09/22 Unknown History gabapentin 300 mg capsule 300 mg PO TID 10/09/22 Unknown History magnesium hydroxide 400 mg/5 mL 30 ml PO DAILY PRN Constipation 10/09/22 Unknown History oral suspension (Milk of Magnesia) metformin 500 mg tablet,extended 500 mg PO DAILY 10/09/22 Unknown History release 24 hr multivitamin 1 tab PO DAILY 10/09/22 Unknown History polyethylene glycol 3350 17 gram 17 g PO DAILY 10/09/22 Unknown History oral powder packet (Miralax) sennosides 8.6 mg capsule (senna) 8.6 mg PO DAILY 10/09/22 Unknown History tamsulosin 0.4 mg capsule 0.8 mg PO QHS 10/09/22 Unknown History ascorbic acid (vitamin C) 500 mg mg PO 08/13/23 Unknown History capsule cholecalciferol (vitamin D3) 25 25 mcg PO DAILY 08/13/23 Unknown History mcg (1,000 unit) capsule clopidogrel 75 mg tablet (Plavix) 75 mg PO DAILY 08/13/23 Unknown History warfarin 5 mg tablet 9 mg PO DAILY 08/13/23 Unknown History zinc acetate 50 mg (zinc) capsule 50 mg PO DAILY 08/13/23 Unknown History Allergy/AdvReac Type Severity Reaction Status Date / Time No Known Allergies Allergy Verified 01/13/24 11:13 Family History Other CAD (coronary artery disease) Colon cancer Heart disease Hypertension Myocardial infarction Thyroid disorder Social History Smoking Status: Never smoker Physical Exam Const alert, oriented x3, no apparent distress, no limitations and well nourished General Appearance: cooperative, comfortable and well developed Orientation / Consciousness: awake, oriented to person, oriented to place and oriented to time HEENT normocephalic and head/scalp atraumatic Head and Scalp: normal to inspection, normocephalic and atraumatic Face and Sinus: normal facial exam Nose: external nose normal External Ear: external ears normal Eyes PERRL and EOMs intact bilaterally General Eye: normal appearance of both eyes Resp normal respiratory effort, normal air movement, no retractions and no use of accessory muscles Effort and Inspection: able to speak in complete sentences Extremity no calf tenderness General Extremity: Negative for clubbing or cyanosis Skin Wound Narrative: An open wound is noted on the distal portion of the right foot. It is full-thickness, extending into the subcutaneous tissues. There is a moderate amount of bioburden, and nonviable tissue which has diminished since the patient's prior visit. Dimensions are documented elsewhere. There is no significant undermining. There is no overt sign of infection or cellulitis. A large portion of the foot and lower leg demonstrate severe, scaly dermatitic changes and scattered superficial excoriations. The dermatitic changes have improved significantly within the last week. A flexion contracture of the knee and an equinus contracture of the ankle with a varus hindfoot alignment are noted. Multiple right toe deformities and apparent prior amputations are noted. Neuro oriented x3, CN's II-XII intact bilaterally, moves all extremities, no focal motor deficits and no sensory deficits noted Sensorium / Orientation: awake, alert, oriented to person, oriented to place and oriented to time Speech: speech normal Psych Appearance: grossly normal and appropriate Attitude: calm Activity / Motor Behavior: appropriate eye contact Speech: normal speech Mood & Affect: euthymic mood Thought Process: normal thought process Thought Content: normal thought content Attention / Concentration: attention grossly intact Debridement Note Debridement Note Wound debrided: Distal right foot ulceration Laterality: Right Type of Debridement: Excisional debridement Anesthesia Used: 5% Lidocaine Gel Depth: Down to and including healthy tissue and in the subcutaneous layer Percentage of wound debrided: 100 Instrument Used: 5mm curette, Forceps and - (Scissors) Tissue Removed: Bioburden and nonviable tissue Severity: Fat Layer Exposed Amount of bleeding with debridement: Mild Bleeding Controlled with: Compression and gauze Patient tolerated procedure: Patient tolerated procedure well Post-Debridement Measurements and Additional Note: Post-Debridement Measurements/Treatment - Nurse 1 - General Ulcer Assessment Start: 08/02/24 10:49 Freq: Status: Active Protocol: SASHA.[email or web address] Activity Type Activity Date Activity User E-sign Co-sign Detail Recorded Client Recorded Date Recorded By Document 08/02/24 10:49 RB [id number] 08/02/24 10:57 RB Document 08/09/24 10:48 RB [id number] 08/09/24 10:50 RB Document 08/16/24 10:41 KW [id number] 08/16/24 10:50 KW 08/02/24 08/09/24 08/16/24 10:49 10:48 10:41 - Today's Visit Information Type of service Follow-up Visit Follow-up Visit Follow-up Visit (Physician/TONGUE CARRIER (Physician/TONGUE CARRIER (Physician/TONGUE CARRIER ) ) ) Arrival Mode Wheelchair Wheelchair Wheelchair Transfer Assistance Manual Manual Patient Identification Verified (Name & Yes Yes Yes ) Patient Requires Transmission-Based No Precautions Vital Signs Temperature (97.8 F-99.1 F) 97 F L 98.4 F 98.4 F Temperature Source Temporal Temporal Temporal Pulse Rate (60-100) 81 74 78 Pulse Location Monitor Monitor Monitor Respiratory Rate (12-18) 18 18 18 Respiratory rate source Observation Observation Observation Oxygen Delivery Method Room Air Blood Pressure (90/60-120/80) 100/34 L 110/64 110/43 L Blood Pressure Mean 56 79 65 Source Monitor Monitor Monitor Position Sitting Semi-Fowlers Semi-Fowlers Blood Pressure Location Right Forearm Left Arm Left Arm History Since Last Visit- (Skip if this is Patient's initial visit) Have you changed medications since your No No No last visit? Any new allergies or adverse reactions No No No Had a fall/change in ADL's that may No No No increase risk of falls Signs or symptoms of abuse and/or No No No neglect since last visit Have you been in the hospital since your No No No last visit? Has dressing in place as prescribed Yes Yes Yes Has compression in place as prescribed Yes Yes Yes Has offloadiing in place as prescribed Yes Yes Yes Experienced any changes in pain level or No No No management Left Footwear Surgical Shoe Surgical Shoe Surgical Shoe with pressure with pressure with pressure relief insole relief insole relief insole Right Footwear Surgical Shoe Surgical Shoe Surgical Shoe with pressure with pressure with pressure relief insole relief insole relief insole Pain Scale: 0-10 Numeric Is Patient Pain Free? Yes No Yes right foot -Description Burning -Intensity 4 -Duration (hours) Acute -Pain Behavior Withdrawal from Touch -Pain Aggravating Factors Exercise/ Activity, Debridement -Alleviating Factors/Interventions None WC - Nurse 1 - General Ulcer Measurement Start: 08/02/24 10:49 Freq: Status: Active Protocol: Activity Type Activity Date Activity User E-sign Co-sign Detail Recorded Client Recorded Date Recorded By Document 08/02/24 10:49 RB [id number] 08/02/24 10:57 RB Document 08/09/24 10:48 RB [id number] 08/09/24 10:50 RB Document 08/16/24 10:41 KW [id number] 08/16/24 10:50 KW 08/02/24 08/09/24 08/16/24 10:49 10:48 10:41 Wound Center Nurse 1 14-right dorsal foot -Combined with other wound No No -Current Size (cm) - Length 2.5 1.5 0.1 -Current Size (cm) - Width 6.6 7.5 0.1 -Current Size (cm) - Depth 0.1 0.1 0 -Total Square Cm 16.50 11.25 0.01 -Date of Last Picture (Recall this 08/16/24 field) -Photo Taken Yes Yes -Tunneling No No -Undermining/Tunneling No No -Circular Undermining No No -Exudate Amt Medium Medium Small -Exudate Type Serosanguineous Serosanguineous Serous -Wound Margin Thickened Distinct, Indistinct, Non Outline -Visible Attached -Granulation Amt Medium (34-66%) Large (67-100%) Large (67-100%) -Granulation Quality [place] -Slough/Fibrin Yes Yes -Necrosis Amt Medium (34-66%) Medium (34-66%) -Necrotic Tissue Type Adherent Slough Adherent Slough -Structure Exposed N/A N/A -Texture ([place]-wound Skin Appearance) Assessed Assessed Assessed -Moisture ([place]-wound Skin Appearance) Maceration Maceration Assessed, Maceration,Dry/ Scaly -Color ([place]-wound Skin Appearance) Assessed Assessed Assessed -Temperature ([place]-wound Skin No Abnormality No Abnormality Appearance) (Pt Warm) (Pt Warm) -Tenderness on Palpation ([place]-wound No No No Skin Appearance) -Ulcer Cleansing Wound Cleanser Wound Cleanser Soap and Water -Foul Odor after Cleansing No No No -Anesthetic Used 4% Lidocaine 5% Lidocaine 5% Lidocaine Solution Gel Gel 7-right plantar foot -Combined with other wound No No -Current Size (cm) - Length 2.6 3.5 2 -Current Size (cm) - Width 3.5 3.5 1.8 -Current Size (cm) - Depth 0.1 0.1 0.1 -Total Square Cm 9.10 12.25 3.6 -Date of Last Picture (Recall this 08/16/24 field) -Photo Taken Yes Yes -Tunneling No No -Undermining/Tunneling No No -Circular Undermining No No -Exudate Amt Medium Medium Medium -Exudate Type Serosanguineous Serosanguineous Serosanguineous -Wound Margin Thickened Distinct, Distinct, Outline Outline Attached Attached -Granulation Amt Medium (34-66%) Medium (34-66%) Large (67-100%) -Granulation Quality [place] -Slough/Fibrin Yes Yes -Necrosis Amt Medium (34-66%) Medium (34-66%) Small (1-33%) -Necrotic Tissue Type Adherent Slough Adherent Slough Adherent Slough -Structure Exposed N/A N/A -Texture ([place]-wound Skin Appearance) Assessed Assessed Assessed -Moisture ([place]-wound Skin Appearance) Maceration Maceration Assessed, Maceration,Dry/ Scaly -Color ([place]-wound Skin Appearance) Assessed Assessed Assessed -Temperature ([place]-wound Skin No Abnormality No Abnormality No Abnormality Appearance) (Pt Warm) (Pt Warm) (Pt Warm) -Tenderness on Palpation ([place]ul[place]-wound No No No Skin Appearance) -Ulcer Cleansing Wound Cleanser Wound Cleanser Soap and Water -Foul Odor after Cleansing No -Anesthetic Used 4% Lidocaine 5% Lidocaine 5% Lidocaine Solution Gel Gel Lower Limb Edema Present Yes Right Calf (cm) 31 31.3 Right Ankle (cm) 23.1 25.5 WC - Nurse 2 - General Ulcer CM Notes Start: 08/02/24 10:49 Freq: Status: Active Protocol: Activity Type Activity Date Activity User E-sign Co-sign Detail Recorded Client Recorded Date Recorded By Document 08/02/24 11:08 JUAN RAMON [id number] 08/02/24 11:09 Document 08/09/24 11:16 [id number] 08/09/24 11:19 Edit Result 08/09/24 11:16 JUAN RAMON (1) 000 08/11/24 08:23 Document 08/16/24 11:05 [id number] 08/16/24 11:10 (1) 14-right dorsal foot - Debridement - Subq, 1st 20sq cm Yes => No 08/02/24 08/09/24 08/16/24 11:08 11:16 11:05 Wound Center Nurse 2 14-right dorsal foot -Time 11:08 11:16 11:08 -Correct Patient Yes No No -Correct Side, Site, Position Yes No No -Correct Procedure Yes No No -Procedure Performed Yes No No -Type of Procedure Debridement -Clinical Debridement Subcutaneous -Tissue Removed Subcutaneous -Post Debridement (cm) - Length 7 -Post Debridement (cm) - Width 3.5 -Post Debridement (cm) - Depth 0.1 -Total Square (Post) (cm) 24.5 -Area of Debridement (cm) - Length 7 -Area of Debridement (cm) - Width 3.5 -Total Square (Area) (cm) 24.5 -Tunneling No No No -Undermining/Tunneling No No No -Circular Undermining No No No -Wound/Ulcer Outcome Not Healed Not Healed Not Healed -Ulcer Cleansing Rinsed/ Rinsed/ Rinsed/ Irrigated with Irrigated with Irrigated with Saline Saline Saline -Foul Odor after Cleansing No No No -Bioengineered Tissue No No -Bleeding Controlled with Pressure Pressure -Treatment Response Procedure Procedure Procedure Tolerated Well Tolerated Well Tolerated Well -Offloading No No No -Debridement - Subq, 1st 20sq cm No No 7-right plantar foot -Time 11:08 11:09 -Correct Patient Yes Yes Yes -Correct Side, Site, Position Yes Yes Yes -Correct Procedure Yes Yes Yes -Procedure Performed Yes Yes Yes -Type of Procedure Debridement Debridement Debridement -Clinical Debridement Subcutaneous Subcutaneous Subcutaneous -Tissue Removed Subcutaneous Subcutaneous Subcutaneous -Post Debridement (cm) - Length 5.5 0.8 1.0 -Post Debridement (cm) - Width 3.5 1.5 1.3 -Post Debridement (cm) - Depth 0.1 0.3 0.2 -Total Square (Post) (cm) 19.25 1.20 1.30 -Area of Debridement (cm) - Length 5.5 0.8 1.0 -Area of Debridement (cm) - Width 3.5 1.5 1.3 -Total Square (Area) (cm) 19.25 1.20 1.30 -Tunneling No No No -Undermining/Tunneling No No No -Circular Undermining No No No -Wound/Ulcer Outcome Not Healed Not Healed Not Healed -Ulcer Cleansing Rinsed/ Rinsed/ Rinsed/ Irrigated with Irrigated with Irrigated with Saline Saline Saline -Foul Odor after Cleansing No No No -Bioengineered Tissue No No No -Bleeding Controlled with Pressure Pressure Pressure -Treatment Response Procedure Procedure Procedure Tolerated Well Tolerated Well Tolerated Well -Offloading No No No -Debridement - Subq, 1st 20sq cm Yes Yes Yes -Debridement, SubQ, ea addt'l 20sq cm 2 or part thereof Pain Scale: 0-10 Numeric Is Patient Pain Free? Yes Yes Yes - Nurse 3 - General Ulcer D/C NN Start: 08/02/24 10:49 Freq: Status: Active Protocol: Activity Type Activity Date Activity User E-sign Co-sign Detail Recorded Client Recorded Date Recorded By Document 08/02/24 11:23 JF [id number] 08/02/24 11:24 JF Document 08/09/24 11:23 KW [id number] 08/09/24 11:27 KW Document 08/16/24 11:17 KW [id number] 08/16/24 11:19 KW 08/02/24 08/09/24 08/16/24 11:23 11:23 11:17 Wound Care Center Nurse 3 14-right dorsal foot -Ulcer Cleansing Rinsed/ Irrigated with Saline -Foul Odor after Cleansing No -Primary Dressing Applied Optilok 6.5x10 Nugauze, Nugauze, Iodoform 1/2in Iodoform 1in -Primary Dressing Covered/Secured with Dry Gauze Dry Gauze & Roll Gauze, Secured with Tape -Nugauze, Iodoform 1/2in 1 -Nugauze, Iodoform 1in 1 -Optilok 6.5x10 1 7-right plantar foot -Ulcer Cleansing Rinsed/ Irrigated with Saline -Foul Odor after Cleansing No -Primary Dressing Applied Optilok 6.5x10 -Other Dressing betadine iodoform iodoform -Primary Dressing Covered/Secured with Dry Gauze Dry Gauze -Optilok 6.5x10 1 Right -Multi-Layered Wrap Application Multi-Layer Unna Boot - Unna Boot - Comp - Right ($ Right ($) Right ($) ) Pain Scale: 0-10 Numeric Is Patient Pain Free? Yes Yes Yes - Visit Discharge Discharge Condition Stable Stable Stable Ambulatory Status Wheelchair Wheelchair Transportation Private Auto Medication Reconcilliation completed & Yes No No provided to patient/care provider Clinical Summary of Care Provided Yes Yes Yes Charges/Coding Procedures Integumentary [id number]: [id number] Samina subq tissue 20 sq cm/< Assessment/Plan Assessment/Plan (1) Non-pressure 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 foot with fat layer exposed: CODE(S): L97.512 - Non-pressure 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 foot with fat layer exposed (2) Cellulitis of leg, right: CODE(S): L03.115 - Cellulitis of right lower limb (3) Venous insufficiency (chronic) (peripheral): CODE(S): I87.2 - Venous insufficiency (chronic) (peripheral) (4) Bilateral lower extremity edema: CODE(S): R60.0 - Localized edema (5) Tinea unguium: CODE(S): B35.1 - Tinea unguium (6) Debility: CODE(S): R53.81 - Other malaise (7) Polyneuropathy: CODE(S): G62.9 - Polyneuropathy, unspecified PLAN: Plan This is an 84-year-old male with deformities of his right lower extremity. He has an ulceration on the distal portion of his right foot. He also has severe dermatitic changes to the right foot and distal right lower extremity. A culture result from 1 week ago is positive for Proteus mirabilis, Enterococcus faecalis, coagulase-negative staph, gram-positive rods, Serratia marcescens, and Providencia stuartii. In accordance with the sensitivity results, the patient was instructed to discontinue the doxycycline and Cipro, which were started on August 02, 2024. In its place, Bactrim double strength p.o. twice daily for 7 days and Augmentin 500 mg p.o. twice daily for 7 days have been prescribed, and are nearly completed. We are to continue the use of moistened iodoform gauze packing to the ulceration on the distal right foot. Relative to the severe dermatitic changes in the distal right lower extremity, an Unna compression boot is to be applied. Ideally, it would be preferred to change the Unna compression boot twice weekly, but it is unlikely the patient would return twice a week, given that he resides in a [facility]. The patient has been encouraged to elevate his lower extremities is much as possible. Elevation is to be to heart level, or higher. Current measures, which will be continued, appear to have resulted in noticeable improvement within the last week. The patient will return in 1 week for reevaluation. Total time: 25 minutes
[2024-08-23 10:57] VITALS: BP 111/74; PULSE 70; RESP 18; TEMP 36.8
--- NOTE | 2024-08-23 11:19 | PCM.WC.PN ---
History of Present Illness Date of Service: 08/23/24 Chief Complaint: Chronic, non-healing, right lower extremity ulcers History of Wound: This is an 84-year-old male with chronic ulcerations, dermatitis, and excoriations in his right lower extremity, and a history of chronic venous insufficiency. 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 He is a patient of Dr. John Anna, [employer] [facility], for whom the patient is evaluated today. The patient has a history of edema in his lower extremities. He is minimally ambulatory. 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 The patient is minimally ambulatory and only transfers from bed to wheelchair and wheelchair to bed. Cellulitis was diagnosed on August 02, 2024, and the patient was started on doxycycline and Cipro empirically. Cultures were obtained at that time, and were positive for Proteus mirabilis, Enterococcus faecalis, coagulase-negative staph, gram-positive gio, Serratia marcescens, and Providencia stuartii. It is noted that Proteus species were noted in 2 previous recent cultures. The [facility] a [facility] of the [facility]. 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 Hossein Arvizu on July 09, 2023. Objective Data Objective Data Vital Signs: Vital Signs Temp Pulse Resp BP O2 Del Method 98.3 F 70 18 111/74 Room Air 08/23/24 10:57 08/23/24 10:57 08/23/24 10:57 08/23/24 10:57 08/16/24 10:41 Oxygen Delivery Method Room Air Lab / Micro Data Micro: Microbiology 08/02/24 11:07 Ulcer, Decubitus - Right Foot Gram Stain - Final 08/02/24 11:07 Ulcer, Decubitus - Right Foot Wound Culture - Final Proteus mirabilis Enterococcus faecalis Coag Negative Staph Gram positive gio Serratia marcescens Providencia stuartii 08/02/24 11:07 Ulcer, Decubitus - Right Foot Anaerobic Culture - Final No anaerobic bacteria isolated. Physical Exam Narrative Vascular: Dorsalis pedis posterior tibial pulses palpable to bilateral lower extremity. Atrophic skin changes such as shiny taut appearance noted with absent digital hair growth. Patient does have +1 pitting edema to bilateral lower extremity with hemosiderin deposits noted. Neurologic: Light touch protective sensation diminished bilateral feet. Dermatologic: Healed medial right ankle and lateral wounds. recurrent dorsal foot wound right foot. right plantar foot wound. Increased maceration to periwound edges to dorsal foot and right plantar foot along with periwound erythema edema and warmth. Moderate serosanguineous drainage noted. No deep probing undermining. Wounds demonstrate clean granular bases postdebridement. 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 This appears to contribute to wound formation and poor ambulatory status patient. Patient has diffuse muscular weakness 4 out of 5 to bilateral lower extremity compartments. On the left lower extremity patient has an equinus contracture to the hindfoot. Const alert and oriented x3 Debridement Note Debridement Note Post-Debridement Measurements and Additional Note: Post-Debridement Measurements/Treatment - Nurse 1 - General Ulcer Assessment Start: 08/02/24 10:49 Freq: Status: Active Protocol: [email or web address] Activity Type Activity Date Activity User E-sign Co-sign Detail Recorded Client Recorded Date Recorded By Document 08/02/24 10:49 RB [id number] 08/02/24 10:57 RB Document 08/09/24 10:48 RB [id number] 08/09/24 10:50 RB Document 08/16/24 10:41 KW [id number] 08/16/24 10:50 KW Document 08/23/24 10:57 RB [id number] 08/23/24 11:00 RB 08/02/24 08/09/24 08/16/24 10:49 10:48 10:41 - Today's Visit Information Type of service Follow-up Visit Follow-up Visit Follow-up Visit (Physician/CROP OR [employer]IVESTOCK TENANT FARMER (Physician/CROP OR LIVESTOCK TENANT FARMER (Physician/CROP OR LIVESTOCK TENANT FARMER ) ) ) Arrival Mode Wheelchair Wheelchair Wheelchair Transfer Assistance Manual Manual Patient Identification Verified (Name & Yes Yes Yes ) Patient Requires Transmission-Based No Precautions Vital Signs Temperature (97.8 F-99.1 F) 97 F L 98.4 F 98.4 F Temperature Source Temporal Temporal Temporal Pulse Rate (60-100) 81 74 78 Pulse Location Monitor Monitor Monitor Respiratory Rate (12-18) 18 18 18 Respiratory rate source Observation Observation Observation Oxygen Delivery Method Room Air Blood Pressure (90/60-120/80) 100/34 L 110/64 110/43 L Blood Pressure Mean (mm Hg) 56 79 65 Source Monitor Monitor Monitor Position Sitting Semi-Fowlers Semi-Fowlers Blood Pressure Location Right Forearm Left Arm Left Arm History Since Last Visit- (Skip if this is Patient's initial visit) Have you changed medications since your No No No last visit? Any new allergies or adverse reactions No No No Had a fall/change in ADL's that may No No No increase risk of falls Signs or symptoms of abuse and/or No No No neglect since last visit Have you been in the hospital since your No No No last visit? Has dressing in place as prescribed Yes Yes Yes Has compression in place as prescribed Yes Yes Yes Has offloadiing in place as prescribed Yes Yes Yes Experienced any changes in pain level or No No No management Left Footwear Surgical Shoe Surgical Shoe Surgical Shoe with pressure with pressure with pressure relief insole relief insole relief insole Right Footwear Surgical Shoe Surgical Shoe Surgical Shoe with pressure with pressure with pressure relief insole relief insole relief insole Pain Scale: 0-10 Numeric Is Patient Pain Free? Yes No Yes right foot -Description Burning -Intensity 4 -Duration (hours) Acute -Pain Behavior Withdrawal from Touch -Pain Aggravating Factors Exercise/ Activity, Debridement -Alleviating Factors/Interventions None 08/23/24 10:57 WC - Today's Visit Information Type of service Follow-up Visit (Physician/CROP OR LIVESTOCK TENANT FARMER ) Arrival Mode Wheelchair Transfer Assistance None Patient Identification Verified (Name & Yes ) Patient Requires Transmission-Based No Precautions Vital Signs Temperature (97.8 F-99.1 F) 98.3 F Temperature Source Temporal Pulse Rate (60-100) 70 Pulse Location Monitor Respiratory Rate (12-18) 18 Respiratory rate source Observation Oxygen Delivery Method Blood Pressure (90/60-120/80) 111/74 Blood Pressure Mean (mm Hg) 86 Source Monitor Position Semi-Fowlers Blood Pressure Location Left Arm History Since Last Visit- (Skip if this is Patient's initial visit) Have you changed medications since your No last visit? Any new allergies or adverse reactions No Had a fall/change in ADL's that may No increase risk of falls Signs or symptoms of abuse and/or No neglect since last visit Have you been in the hospital since your No last visit? Has dressing in place as prescribed Yes Has compression in place as prescribed Yes Has offloadiing in place as prescribed Yes Experienced any changes in pain level or No management Left Footwear Surgical Shoe with pressure relief insole Right Footwear Surgical Shoe with pressure relief insole Pain Scale: 0-10 Numeric Is Patient Pain Free? Yes right foot -Description -Intensity -Duration (hours) -Pain Behavior -Pain Aggravating Factors -Alleviating Factors/Interventions WC - Nurse 1 - General Ulcer Measurement Start: 08/02/24 10:49 Freq: Status: Active Protocol: Activity Type Activity Date Activity User E-sign Co-sign Detail Recorded Client Recorded Date Recorded By Document 08/02/24 10:49 RB [id number] 08/02/24 10:57 RB Document 08/09/24 10:48 RB [id number] 08/09/24 10:50 RB Document 08/16/24 10:41 KW [id number] 08/16/24 10:50 KW Document 08/23/24 10:57 RB [id number] 08/23/24 11:00 RB 08/02/24 08/09/24 08/16/24 10:49 10:48 10:41 Wound Center Nurse 1 14-right dorsal foot -Combined with other wound No No -Current Size (cm) - Length 2.5 1.5 0.1 -Current Size (cm) - Width 6.6 7.5 0.1 -Current Size (cm) - Depth 0.1 0.1 0 -Total Square Cm 16.50 11.25 0.01 -Date of Last Picture (Recall this 08/16/24 field) -Photo Taken Yes Yes -Tunneling No No -Undermining/Tunneling No No -Circular Undermining No No -Exudate Amt Medium Medium Small -Exudate Type Serosanguineous Serosanguineous Serous -Wound Margin Thickened Distinct, Indistinct, Non Outline -Visible Attached -Granulation Amt Medium (34-66%) Large (67-100%) Large (67-100%) -Granulation Quality [place] -Slough/Fibrin Yes Yes -Necrosis Amt Medium (34-66%) Medium (34-66%) -Necrotic Tissue Type Adherent Slough Adherent Slough -Structure Exposed N/A N/A -Texture (Yuliet-wound Skin Appearance) Assessed Assessed Assessed -Moisture (Yuliet-wound Skin Appearance) Maceration Maceration Assessed, Maceration,Dry/ Scaly -Color (Yuliet-wound Skin Appearance) Assessed Assessed Assessed -Temperature ([place]ul[place]-wound Skin No Abnormality No Abnormality Appearance) (Pt Warm) (Pt Warm) -Tenderness on Palpation (Yuliet-wound No No No Skin Appearance) -Ulcer Cleansing Wound Cleanser Wound Cleanser Soap and Water -Foul Odor after Cleansing No No No -Anesthetic Used 4% Lidocaine 5% Lidocaine 5% Lidocaine Solution Gel Gel 7-right plantar foot -Combined with other wound No No -Current Size (cm) - Length 2.6 3.5 2 -Current Size (cm) - Width 3.5 3.5 1.8 -Current Size (cm) - Depth 0.1 0.1 0.1 -Total Square Cm 9.10 12.25 3.6 -Date of Last Picture (Recall this 08/16/24 field) -Photo Taken Yes Yes -Tunneling No No -Undermining/Tunneling No No -Circular Undermining No No -Exudate Amt Medium Medium Medium -Exudate Type Serosanguineous Serosanguineous Serosanguineous -Wound Margin Thickened Distinct, Distinct, Outline Outline Attached Attached -Granulation Amt Medium (34-66%) Medium (34-66%) Large (67-100%) -Granulation Quality [place] -Slough/Fibrin Yes Yes -Necrosis Amt Medium (34-66%) Medium (34-66%) Small (1-33%) -Necrotic Tissue Type Adherent Slough Adherent Slough Adherent Slough -Structure Exposed N/A N/A -Texture (Yuliet-wound Skin Appearance) Assessed Assessed Assessed -Moisture (Yuliet-wound Skin Appearance) Maceration Maceration Assessed, Maceration,Dry/ Scaly -Color (Yuliet-wound Skin Appearance) Assessed Assessed Assessed -Temperature (Yuliet-wound Skin No Abnormality No Abnormality No Abnormality Appearance) (Pt Warm) (Pt Warm) (Pt Warm) -Tenderness on Palpation (Yuliet-wound No No No Skin Appearance) -Ulcer Cleansing Wound Cleanser Wound Cleanser Soap and Water -Foul Odor after Cleansing No -Anesthetic Used 4% Lidocaine 5% Lidocaine 5% Lidocaine Solution Gel Gel Lower Limb Edema Present Yes Right Calf (cm) 31 31.3 Right Ankle (cm) 23.1 25.5 08/23/24 10:57 Wound Center Nurse 1 14-right dorsal foot -Combined with other wound No -Current Size (cm) - Length 1.3 -Current Size (cm) - Width 1.3 -Current Size (cm) - Depth 0.1 -Total Square Cm 1.69 -Date of Last Picture (Recall this field) -Photo Taken -Tunneling No -Undermining/Tunneling No -Circular Undermining No -Exudate Amt Medium -Exudate Type Serosanguineous -Wound Margin Distinct, Outline Attached -Granulation Amt Medium (34-66%) -Granulation Quality [place] -Slough/Fibrin Yes -Necrosis Amt Medium (34-66%) -Necrotic Tissue Type Adherent Slough -Structure Exposed N/A -Texture (Yuliet-wound Skin Appearance) Assessed -Moisture (Yuliet-wound Skin Appearance) Dry/Scaly -Color (Yuliet-wound Skin Appearance) Assessed -Temperature (Yuliet-wound Skin No Abnormality Appearance) (Pt Warm) -Tenderness on Palpation (Yuliet-wound No Skin Appearance) -Ulcer Cleansing Wound Cleanser -Foul Odor after Cleansing No -Anesthetic Used 5% Lidocaine Gel 7-right plantar foot -Combined with other wound No -Current Size (cm) - Length 0.8 -Current Size (cm) - Width 1 -Current Size (cm) - Depth 0.3 -Total Square Cm 0.8 -Date of Last Picture (Recall this field) -Photo Taken -Tunneling No -Undermining/Tunneling No -Circular Undermining No -Exudate Amt Medium -Exudate Type Serosanguineous -Wound Margin Thickened -Granulation Amt Medium (34-66%) -Granulation Quality [place] -Slough/Fibrin Yes -Necrosis Amt Medium (34-66%) -Necrotic Tissue Type Adherent Slough -Structure Exposed N/A -Texture (Yuliet-wound Skin Appearance) Callus -Moisture (Yuliet-wound Skin Appearance) Assessed,Dry/ Scaly -Color (Yuliet-wound Skin Appearance) Assessed -Temperature (Yuliet-wound Skin No Abnormality Appearance) (Pt Warm) -Tenderness on Palpation (Yuliet-wound No Skin Appearance) -Ulcer Cleansing Wound Cleanser -Foul Odor after Cleansing No -Anesthetic Used 5% Lidocaine Gel Lower Limb Edema Present Yes Right Calf (cm) 30.5 Right Ankle (cm) 23.7 WC - Nurse 2 - General Ulcer CM Notes Start: 08/02/24 10:49 Freq: Status: Active Protocol: Activity Type Activity Date Activity User E-sign Co-sign Detail Recorded Client Recorded Date Recorded By Document 08/02/24 11:08 JF [id number] 08/02/24 11:09 JF Document 08/09/24 11:16 JF [id number] 08/09/24 11:19 JF Edit Result 08/09/24 11:16 JF (1) 000 08/11/24 08:23 JF Document 08/16/24 11:05 JF [id number] 08/16/24 11:10 JF Document 08/23/24 11:02 [id number] 08/23/24 11:03 JF (1) 14-right dorsal foot - Debridement - Subq, 1st 20sq cm Yes => No 08/02/24 08/09/24 08/16/24 11:08 11:16 11:05 Wound Center Nurse 2 14-right dorsal foot -Time 11:08 11:16 11:08 -Correct Patient Yes No No -Correct Side, Site, Position Yes No No -Correct Procedure Yes No No -Procedure Performed Yes No No -Type of Procedure Debridement -Clinical Debridement Subcutaneous -Tissue Removed Subcutaneous -Post Debridement (cm) - Length 7 -Post Debridement (cm) - Width 3.5 -Post Debridement (cm) - Depth 0.1 -Total Square (Post) (cm) 24.5 -Area of Debridement (cm) - Length 7 -Area of Debridement (cm) - Width 3.5 -Total Square (Area) (cm) 24.5 -Tunneling No No No -Undermining/Tunneling No No No -Circular Undermining No No No -Wound/Ulcer Outcome Not Healed Not Healed Not Healed -Ulcer Cleansing Rinsed/ Rinsed/ Rinsed/ Irrigated with Irrigated with Irrigated with Saline Saline Saline -Foul Odor after Cleansing No No No -Bioengineered Tissue No No -Bleeding Controlled with Pressure Pressure -Treatment Response Procedure Procedure Procedure Tolerated Well Tolerated Well Tolerated Well -Offloading No No No -Debridement - Subq, 1st 20sq cm No No 7-right plantar foot -Time 11:08 11:09 -Correct Patient Yes Yes Yes -Correct Side, Site, Position Yes Yes Yes -Correct Procedure Yes Yes Yes -Procedure Performed Yes Yes Yes -Type of Procedure Debridement Debridement Debridement -Clinical Debridement Subcutaneous Subcutaneous Subcutaneous -Tissue Removed Subcutaneous Subcutaneous Subcutaneous -Post Debridement (cm) - Length 5.5 0.8 1.0 -Post Debridement (cm) - Width 3.5 1.5 1.3 -Post Debridement (cm) - Depth 0.1 0.3 0.2 -Total Square (Post) (cm) 19.25 1.20 1.30 -Area of Debridement (cm) - Length 5.5 0.8 1.0 -Area of Debridement (cm) - Width 3.5 1.5 1.3 -Total Square (Area) (cm) 19.25 1.20 1.30 -Tunneling No No No -Undermining/Tunneling No No No -Circular Undermining No No No -Wound/Ulcer Outcome Not Healed Not Healed Not Healed -Ulcer Cleansing Rinsed/ Rinsed/ Rinsed/ Irrigated with Irrigated with Irrigated with Saline Saline Saline -Foul Odor after Cleansing No No No -Bioengineered Tissue No No No -Bleeding Controlled with Pressure Pressure Pressure -Treatment Response Procedure Procedure Procedure Tolerated Well Tolerated Well Tolerated Well -Offloading No No No -Debridement - Subq, 1st 20sq cm Yes Yes Yes -Debridement, SubQ, ea addt'l 20sq cm 2 or part thereof Pain Scale: 0-10 Numeric Is Patient Pain Free? Yes Yes Yes 08/23/24 11:02 Wound Center Nurse 2 14-right dorsal foot -Time 11:02 -Correct Patient Yes -Correct Side, Site, Position Yes -Correct Procedure Yes -Procedure Performed Yes -Type of Procedure Debridement -Clinical Debridement Subcutaneous -Tissue Removed Subcutaneous -Post Debridement (cm) - Length 1.0 -Post Debridement (cm) - Width 1.4 -Post Debridement (cm) - Depth 0.1 -Total Square (Post) (cm) 1.40 -Area of Debridement (cm) - Length 1.0 -Area of Debridement (cm) - Width 1.4 -Total Square (Area) (cm) 1.40 -Tunneling No -Undermining/Tunneling No -Circular Undermining No -Wound/Ulcer Outcome Not Healed -Ulcer Cleansing Rinsed/ Irrigated with Saline -Foul Odor after Cleansing No -Bioengineered Tissue No -Bleeding Controlled with Pressure -Treatment Response Procedure Tolerated Well -Offloading No -Debridement - Subq, 1st 20sq cm No 7-right plantar foot -Time 11:02 -Correct Patient Yes -Correct Side, Site, Position Yes -Correct Procedure Yes -Procedure Performed Yes -Type of Procedure Debridement -Clinical Debridement Subcutaneous -Tissue Removed Subcutaneous -Post Debridement (cm) - Length 2 -Post Debridement (cm) - Width 1 -Post Debridement (cm) - Depth 0.2 -Total Square (Post) (cm) 2 -Area of Debridement (cm) - Length 2.0 -Area of Debridement (cm) - Width 1.0 -Total Square (Area) (cm) 2.00 -Tunneling No -Undermining/Tunneling No -Circular Undermining No -Wound/Ulcer Outcome Not Healed -Ulcer Cleansing Rinsed/ Irrigated with Saline -Foul Odor after Cleansing No -Bioengineered Tissue No -Bleeding Controlled with Pressure -Treatment Response Procedure Tolerated Well -Offloading No -Debridement - Subq, 1st 20sq cm Yes -Debridement, SubQ, ea addt'l 20sq cm or part thereof Pain Scale: 0-10 Numeric Is Patient Pain Free? Yes WC - Nurse 3 - General Ulcer D/C NN Start: 08/02/24 10:49 Freq: Status: Active Protocol: Activity Type Activity Date Activity User E-sign Co-sign Detail Recorded Client Recorded Date Recorded By Document 08/02/24 11:23 JF [id number] 08/02/24 11:24 JF Document 08/09/24 11:23 KW [id number] 08/09/24 11:27 KW Document 08/16/24 11:17 KW [id number] 08/16/24 11:19 KW 08/02/24 08/09/24 08/16/24 11:23 11:23 11:17 Wound Care Center Nurse 3 14-right dorsal foot -Ulcer Cleansing Rinsed/ Irrigated with Saline -Foul Odor after Cleansing No -Primary Dressing Applied Optilok 6.5x10 Nugauze, Nugauze, Iodoform 1/2in Iodoform 1in -Primary Dressing Covered/Secured with Dry Gauze Dry Gauze & Roll Gauze, Secured with Tape -Nugauze, Iodoform 1/2in 1 -Nugauze, Iodoform 1in 1 -Optilok 6.5x10 1 7-right plantar foot -Ulcer Cleansing Rinsed/ Irrigated with Saline -Foul Odor after Cleansing No -Primary Dressing Applied Optilok 6.5x10 -Other Dressing betadine iodoform iodoform -Primary Dressing Covered/Secured with Dry Gauze Dry Gauze -Optilok 6.5x10 1 Right -Multi-Layered Wrap Application Multi-Layer Unna Boot - Unna Boot - Comp - Right ($ Right ($) Right ($) ) Pain Scale: 0-10 Numeric Is Patient Pain Free? Yes Yes Yes WC - Visit Discharge Discharge Condition Stable Stable Stable Ambulatory Status Wheelchair Wheelchair Transportation Private Auto Medication Reconcilliation completed & Yes No No provided to patient/care provider Clinical Summary of Care Provided Yes Yes Yes Assessment/Plan Assessment/Plan (1) Venous insufficiency (chronic) (peripheral): CODE(S): I87.2 - Venous insufficiency (chronic) (peripheral) (2) Other specified peripheral vascular diseases: CODE(S): I73.89 - Other specified peripheral vascular diseases (3) Cellulitis of right lower limb: CODE(S): L03.115 - Cellulitis of right lower limb (4) Non-pressure 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 foot with fat layer exposed: CODE(S): L97.512 - Non-pressure 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 Patient tolerated procedure well. Topical anesthesia used. Hemostasis obtained with light compression. Pre and postdebridement measurements documented nursing notes. Patient approved for graft. will continue iodoform at current with DSD and tubigrip Wound was flushed with saline swab cultures were taken. no additional abx needed at current Will consider apical graft application on follow-up pending resolution of cellulitis patient is minimally ambulatory due to right lower extremity contracture Follow-up weekly
== END 2024-08-26 23:59 | disposition intermediate care facility (04) ==
LOC: WC 10:30
PROVIDERS: PCP Family Medicine; Referring Provider Family Medicine; Visit Provider Podiatrist
DX: E11.621 Type 2 diabetes mellitus with foot ulcer (principal); L97.512 Non-pressure 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 foot with fat layer exposed; L97.522 Non-pressure chronic ulcer of other part of left foot with fat layer exposed; I11.0 Hypertensive heart disease with heart failure; I50.9 Heart failure, unspecified; E11.42 Type 2 diabetes mellitus with diabetic polyneuropathy; E11.51 Type 2 diabetes mellitus with diabetic peripheral angiopathy without gangrene; E11.59 Type 2 diabetes mellitus with other circulatory complications; L03.115 Cellulitis of right lower limb; E78.5 Hyperlipidemia, unspecified; R53.81 Other malaise; B35.1 Tinea unguium; M24.561 Contracture, right knee; I87.2 Venous insufficiency (chronic) (peripheral)
CPT/HCPCS: 11042; 11045; 29580; 29581; 87070; 87075; 87077; 87186; 87205

== ENCOUNTER 2024-09-06 10:27 | Outpatient (RCR) | payer MEDICARE, BC, SELFPAY ==
[2024-08-27 00:29] VITALS: BP 111/74; PULSE 70; RESP 18; TEMP 36.8
[2024-09-06 10:40] VITALS: BP 100/41; PULSE 61; RESP 16; TEMP 35.9
--- NOTE | 2024-09-06 11:06 | PN.PCM_ITS ---
History of Present Illness Date of Service: 09/06/24 Chief Complaint: Chronic, non-healing, right lower extremity ulcers History of Wound: This is an 84-year-old male with chronic ulcerations, dermatitis, and excoriations in his right lower extremity, and a history of chronic venous insufficiency. 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 Patient has non-healing wound to right foot and is here for follow up. Patient denies constitutional symptoms. Patient denies any other complaints. Objective Data Objective Data Vital Signs: Vital Signs Temp Pulse Resp BP O2 Del Method 96.7 F L 61 16 100/41 L Room Air 09/06/24 10:40 09/06/24 10:40 09/06/24 10:40 09/06/24 10:40 09/06/24 10:40 Oxygen Delivery Method Room Air Physical Exam Narrative Vascular: Dorsalis pedis posterior tibial pulses palpable to bilateral lower extremity. Atrophic skin changes such as shiny taut appearance noted with absent digital hair growth. Patient does have +1 pitting edema to bilateral lower extremity with hemosiderin deposits noted. Neurologic: Light touch protective sensation diminished bilateral feet. Dermatologic: Healed medial right ankle and lateral wounds. recurrent dorsal foot wound right foot. right plantar foot wound. Increased maceration to periwound edges to dorsal foot and right plantar foot along with periwound erythema edema and warmth. Moderate serosanguineous drainage noted. No deep probing undermining. Wounds demonstrate clean granular bases postdebridement. 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 This appears to contribute to wound formation and poor ambulatory status patient. Patient has diffuse muscular weakness 4 out of 5 to bilateral lower extremity compartments. On the left lower extremity patient has an equinus contracture to the hindfoot. 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 Any new allergies or adverse reactions No Had a fall/change in ADL's that may No increase risk of falls Signs or symptoms of abuse and/or No neglect since last visit Have you been in the hospital since your No last visit? Has dressing in place as prescribed Yes Has compression in place as prescribed Yes Has offloadiing in place as prescribed Yes Experienced any changes in pain level or No management Left Footwear Surgical Shoe with pressure relief insole Right Footwear Surgical Shoe with pressure relief insole Pain Scale: 0-10 Numeric Is Patient Pain Free? Yes - Nurse 1 - General Ulcer Measurement Start: 09/06/24 10:37 Freq: Status: Active Protocol: Activity Type Activity Date Activity User E-sign Co-sign Detail Recorded Client Recorded Date Recorded By Document 09/06/24 10:40 KW [id number] 09/06/24 10:53 09/06/24 10:40 Wound Center Nurse 1 14-right dorsal foot -Current Size (cm) - Length 1 -Current Size (cm) - Width 2.6 -Current Size (cm) - Depth 0.2 -Total Square Cm 2.6 -Date of Last Picture (Recall this 09/06/24 field) -Epithelialization Medium 34-66% -Exudate Amt Small -Exudate Type Serosanguineous -Wound Margin Distinct, Outline Attached -Granulation Amt Large (67-100%) -Granulation Quality Pale,[place] -Texture (Yuliet-wound Skin Appearance) Assessed -Moisture (Yuliet-wound Skin Appearance) Assessed, Maceration,Dry/ Scaly -Color (Yuliet-wound Skin Appearance) Assessed -Temperature ([place]ul[place]-wound Skin No Abnormality Appearance) (Pt Warm) -Tenderness on Palpation (Yuliet-wound No Skin Appearance) -Ulcer Cleansing Soap and Water -Foul Odor after Cleansing No -Anesthetic Used 5% Lidocaine Gel 7-right plantar foot -Exudate Amt None Present -Texture (Yuliet-wound Skin Appearance) Assessed -Moisture (Yuliet-wound Skin Appearance) Assessed,Dry/ Scaly -Color (Yuliet-wound Skin Appearance) Assessed -Temperature (Yuliet-wound Skin No Abnormality Appearance) (Pt Warm) -Tenderness on Palpation (Yuliet-wound No Skin Appearance) -Ulcer Cleansing Soap and Water Right Calf (cm) 36.5 Point of measurement (cm from the medial 24.5 instep) Left Calf (cm) 35 Left Ankle (cm) 21 WC - Nurse 2 - General Ulcer CM Notes Start: 09/06/24 10:37 Freq: Status: Active Protocol: Activity Type Activity Date Activity User E-sign Co-sign Detail Recorded Client Recorded Date Recorded By Document 09/06/24 10:58 [id number] 09/06/24 11:03 09/06/24 10:58 Wound Center Nurse 2 14-right dorsal foot -Time 10:58 -Correct Patient Yes -Correct Side, Site, Position Yes -Correct Procedure Yes -Procedure Performed Yes -Type of Procedure Debridement -Clinical Debridement Subcutaneous -Tissue Removed Subcutaneous -Post Debridement (cm) - Length 0.8 -Post Debridement (cm) - Width 1.1 -Post Debridement (cm) - Depth 0.1 -Total Square (Post) (cm) 0.88 -Area of Debridement (cm) - Length 0.8 -Area of Debridement (cm) - Width 1.1 -Total Square (Area) (cm) 0.88 -Tunneling No -Undermining/Tunneling No -Circular Undermining No -Wound/Ulcer Outcome Not Healed -Ulcer Cleansing Rinsed/ Irrigated with Saline -Foul Odor after Cleansing No -Bioengineered Tissue No -Bleeding Controlled with Pressure -Treatment Response Procedure Tolerated Well -Offloading No -Debridement - Subq, 1st 20sq cm No 7-right plantar foot -Time 10:59 -Correct Patient Yes -Correct Side, Site, Position Yes -Correct Procedure Yes -Procedure Performed Yes -Type of Procedure Debridement -Clinical Debridement Subcutaneous -Tissue Removed Subcutaneous -Post Debridement (cm) - Length 1.0 -Post Debridement (cm) - Width 0.8 -Post Debridement (cm) - Depth 0.2 -Total Square (Post) (cm) 0.80 -Area of Debridement (cm) - Length 1.0 -Area of Debridement (cm) - Width 0.8 -Total Square (Area) (cm) 0.80 -Tunneling No -Undermining/Tunneling No -Circular Undermining No -Wound/Ulcer Outcome Not Healed -Ulcer Cleansing Rinsed/ Irrigated with Saline -Foul Odor after Cleansing No -Bioengineered Tissue No -Bleeding Controlled with Pressure -Treatment Response Procedure Tolerated Well -Offloading No -Debridement - Subq, 1st 20sq cm Yes Pain Scale: 0-10 Numeric Is Patient Pain Free? Yes Assessment/Plan Assessment/Plan (1) Venous insufficiency (chronic) (peripheral): CODE(S): I87.2 - Venous insufficiency (chronic) (peripheral) (2) Other specified peripheral vascular diseases: CODE(S): I73.89 - Other specified peripheral vascular diseases (3) Cellulitis of right lower limb: CODE(S): L03.115 - Cellulitis of right lower limb (4) Non-pressure 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 foot with fat layer e xposed: CODE(S): L97.512 - Non-pressure 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 foot with fat layer exposed (5) Non-pressure chronic ulcer of other part of left foot with fat layer exp osed: CODE(S): L97.522 - Non-pressure chronic ulcer of other part of left foot with fat layer exposed (6) Tinea unguium: CODE(S): B35.1 - Tinea unguium (7) Pain in right toe(s): CODE(S): M79.674 - Pain in right toe(s) (8) Pain in left toe(s): CODE(S): M79.675 - Pain in left toe(s) PLAN: Plan Exam performed wounds to right foot healing well Right foot wound plantarly and dorsally excisionally debrided down to including level subcutaneous tissue of all nonviable tissue using dermal curette. Patient tolerated procedure well. Topical anesthesia used. Hemostasis obtained with light compression. Pre and postdebridement measurements documented nursing notes. will continue iodoform at current with DSD and tubigrip patient is minimally ambulatory due to right lower extremity contracture Follow-up weekly
--- NOTE | 2024-09-08 09:45 | WC ---
PHOTO 09/06/24 PLANTAR
--- NOTE | 2024-09-08 09:48 | WC ---
PHOTO 09/06/24 RIGHT DORSAL
== END 2024-09-26 23:59 | disposition home or self-care (01) ==
LOC: WC 10:27
PROVIDERS: PCP Family Medicine; Referring Provider Family Medicine; Visit Provider Podiatrist
DX: I87.2 Venous insufficiency (chronic) (peripheral) (principal); L97.512 Non-pressure 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 foot with fat layer exposed; L97.522 Non-pressure chronic ulcer of other part of left foot with fat layer exposed; L03.115 Cellulitis of right lower limb; B35.1 Tinea unguium; G62.9 Polyneuropathy, unspecified; R53.81 Other malaise; I73.9 Peripheral vascular disease, unspecified; M79.674 Pain in right toe(s); M79.675 Pain in left toe(s)
CPT/HCPCS: 11042

== ENCOUNTER 2024-10-25 10:45 | Outpatient (RCR) | payer MEDICARE, BC, SELFPAY ==
[2024-09-27 00:39] VITALS: BP 100/41; PULSE 61; RESP 16; TEMP 35.9
[2024-10-04 10:52] VITALS: BP 106/60; PULSE 59; RESP 18; TEMP 35.8
--- NOTE | 2024-10-04 11:07 | PN.PCM_ITS ---
History of Present Illness Date of Service: 10/04/24 Chief Complaint: Chronic, non-healing, right lower extremity ulcers History of Wound: This is an 84-year-old male with chronic ulcerations, dermatitis, and excoriations in his right lower extremity, and a history of chronic venous insufficiency. 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 Patient has non-healing wound to right foot and is here for follow up. Patient denies constitutional symptoms. Patient denies any other complaints. Objective Data Objective Data Vital Signs: Vital Signs Temp Pulse Resp BP 96.5 F L 59 L 18 106/60 10/04/24 10:52 10/04/24 10:52 10/04/24 10:52 10/04/24 10:52 Physical Exam Narrative Vascular: Dorsalis pedis posterior tibial pulses palpable to bilateral lower extremity. Atrophic skin changes such as shiny taut appearance noted with absent digital hair growth. Patient does have +1 pitting edema to bilateral lower extremity with hemosiderin deposits noted. Neurologic: Light touch protective sensation diminished bilateral feet. Dermatologic: Healed medial right ankle and lateral wounds. recurrent dorsal foot wound right foot. right plantar foot wound. Increased maceration to periwound edges to dorsal foot and right plantar foot along with periwound erythema edema and warmth. Moderate serosanguineous drainage noted. No deep probing undermining. Wounds demonstrate clean granular bases postdebridement. 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 This appears to contribute to wound formation and poor ambulatory status patient. Patient has diffuse muscular weakness 4 out of 5 to bilateral lower extremity compartments. On the left lower extremity patient has an equinus contracture to the hindfoot. 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 Any new allergies or adverse reactions No Had a fall/change in ADL's that may No increase risk of falls Signs or symptoms of abuse and/or No neglect since last visit Have you been in the hospital since your No last visit? Has dressing in place as prescribed Yes Has compression in place as prescribed Yes Has offloadiing in place as prescribed Yes Experienced any changes in pain level or No management Left Footwear Surgical Shoe with pressure relief insole Right Footwear Surgical Shoe with pressure relief insole Pain Scale: 0-10 Numeric Is Patient Pain Free? Yes - Nurse 1 - General Ulcer Measurement Start: 10/04/24 10:52 Freq: Status: Active Protocol: Activity Type Activity Date Activity User E-sign Co-sign Detail Recorded Client Recorded Date Recorded By Document 10/04/24 10:52 JERILYN [id number] 10/04/24 10:54 10/04/24 10:52 Wound Center Nurse 1 14-right dorsal foot -Combined with other wound No -Current Size (cm) - Length 0.1 -Current Size (cm) - Width 0.1 -Current Size (cm) - Depth 0.1 -Total Square Cm 0.01 -Photo Taken Yes -Epithelialization Large 67-100% -Exudate Amt None Present -Wound Margin Distinct, Outline Attached -Granulation Amt Large (67-100%) -Granulation Quality [place] -Slough/Fibrin No -Structure Exposed N/A -Texture (Yuliet-wound Skin Appearance) Assessed -Moisture (Yuliet-wound Skin Appearance) Assessed -Color (Yuliet-wound Skin Appearance) Assessed -Temperature (Yuliet-wound Skin No Abnormality Appearance) (Pt Warm) -Tenderness on Palpation (Yuliet-wound No Skin Appearance) -Ulcer Cleansing Wound Cleanser -Foul Odor after Cleansing No 7-right plantar foot -Combined with other wound No -Current Size (cm) - Length 3.5 -Current Size (cm) - Width 3.5 -Current Size (cm) - Depth 0.2 -Total Square Cm 12.25 -Photo Taken Yes -Tunneling No -Undermining/Tunneling No -Circular Undermining No -Exudate Amt Medium -Exudate Type Serosanguineous -Wound Margin Distinct, Outline Attached -Granulation Amt Medium (34-66%) -Granulation Quality [place] -Slough/Fibrin Yes -Necrosis Amt Medium (34-66%) -Necrotic Tissue Type Adherent Slough -Structure Exposed N/A -Texture (Yuliet-wound Skin Appearance) Assessed -Moisture (Yuliet-wound Skin Appearance) Dry/Scaly -Color (Yuliet-wound Skin Appearance) No Abnormality -Temperature (Yuliet-wound Skin No Abnormality Appearance) (Pt Warm) -Tenderness on Palpation (Yuliet-wound No Skin Appearance) -Ulcer Cleansing Wound Cleanser -Foul Odor after Cleansing No -Anesthetic Used 5% Lidocaine Gel Lower Limb Edema Present Yes Right Calf (cm) 36 Right Ankle (cm) 25 - Nurse 2 - General Ulcer CM Notes Start: 10/04/24 10:52 Freq: Status: Active Protocol: Activity Type Activity Date Activity User E-sign Co-sign Detail Recorded Client Recorded Date Recorded By Document 10/04/24 10:58 JUAN RAMON [id number] 10/04/24 11:00 Edit Result 10/04/24 10:58 JF (1) [id number] 10/04/24 11:03 JF (1) 7-right plantar foot - Post Debridement (cm) - Length => 4 - Post Debridement (cm) - Width => 2 - Post Debridement (cm) - Depth => 0.2 - Total Square (Post) (cm) => 8 - Area of Debridement (cm) - Length => 4 - Area of Debridement (cm) - Width => 2 - Total Square (Area) (cm) => 8 10/04/24 10:58 Wound Center Nurse 2 14-right dorsal foot -Correct Patient Yes -Correct Side, Site, Position No -Correct Procedure No -Procedure Performed No -Post Debridement (cm) - Length 0 -Post Debridement (cm) - Width 0 -Post Debridement (cm) - Depth 0 -Total Square (Post) (cm) 0 -Area of Debridement (cm) - Length 0 -Area of Debridement (cm) - Width 0 -Total Square (Area) (cm) 0 -Wound/Ulcer Outcome Healed- Epithelialized 7-right plantar foot -Time 10:59 -Correct Patient Yes -Correct Side, Site, Position Yes -Correct Procedure Yes -Procedure Performed Yes -Type of Procedure Debridement -Clinical Debridement Subcutaneous -Tissue Removed Subcutaneous -Post Debridement (cm) - Length 4 -Post Debridement (cm) - Width 2 -Post Debridement (cm) - Depth 0.2 -Total Square (Post) (cm) 8 -Area of Debridement (cm) - Length 4 -Area of Debridement (cm) - Width 2 -Total Square (Area) (cm) 8 -Tunneling No -Undermining/Tunneling No -Circular Undermining No -Wound/Ulcer Outcome Not Healed -Ulcer Cleansing Rinsed/ Irrigated with Saline -Foul Odor after Cleansing No -Bioengineered Tissue No -Bleeding Controlled with Pressure -Treatment Response Procedure Tolerated Well -Offloading Yes -Type of Offloading Surgical Shoe -Debridement - Subq, 1st 20sq cm Yes Pain Scale: 0-10 Numeric Is Patient Pain Free? Yes Assessment/Plan Assessment/Plan (1) Venous insufficiency (chronic) (peripheral): CODE(S): I87.2 - Venous insufficiency (chronic) (peripheral) (2) Other specified peripheral vascular diseases: CODE(S): I73.89 - Other specified peripheral vascular diseases (3) Cellulitis of right lower limb: CODE(S): L03.115 - Cellulitis of right lower limb (4) Non-pressure 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 foot with fat layer exposed: CODE(S): L97.512 - Non-pressure 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 foot with fat layer exposed (5) Non-pressure chronic ulcer of other part of left foot with fat layer exposed: CODE(S): L97.522 - Non-pressure chronic ulcer of other part of left foot with fat layer exposed (6) Tinea unguium: CODE(S): B35.1 - Tinea unguium (7) Pain in right toe(s): CODE(S): M79.674 - Pain in right toe(s) (8) Pain in left toe(s): CODE(S): M79.675 - Pain in left toe(s) PLAN: Plan Exam performed wounds to right foot healing well Right foot wound plantarly and dorsally excisionally debrided down to including level subcutaneous tissue of all nonviable tissue using dermal curette. Patient tolerated procedure well. Topical anesthesia used. Hemostasis obtained with light compression. Pre and postdebridement measurements documented nursing notes. will start Fibracol at current with DSD and tubigrip patient is minimally ambulatory due to right lower extremity contracture Follow-up weekly
--- NOTE | 2024-10-05 08:39 | WC ---
PHOTO 10/05/24 RIGHT PLANTAR
--- NOTE | 2024-10-05 08:41 | WC ---
PHOTO 10/04/24 RIGHT DORSAL
[2024-10-11 10:48] VITALS: BP 94/54; PULSE 60; RESP 18; TEMP 36.7
--- NOTE | 2024-10-11 11:02 | PN.PCM_ITS ---
History of Present Illness Date of Service: 10/11/24 Chief Complaint: Chronic, non-healing, right lower extremity ulcers History of Wound: This is an 84-year-old male with chronic ulcerations, dermatitis, and excoriations in his right lower extremity, and a history of chronic venous insufficiency. 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 Patient has non-healing wound to right foot and is here for follow up. Patient denies constitutional symptoms. Patient denies any other complaints. Objective Data Objective Data Vital Signs: Vital Signs Temp Pulse Resp BP 98.1 F 60 18 94/54 L 10/11/24 10:48 10/11/24 10:48 10/11/24 10:48 10/11/24 10:48 Physical Exam Narrative Vascular: Dorsalis pedis posterior tibial pulses palpable to bilateral lower extremity. Atrophic skin changes such as shiny taut appearance noted with absent digital hair growth. Patient does have +1 pitting edema to bilateral lower extremity with hemosiderin deposits noted. Neurologic: Light touch protective sensation diminished bilateral feet. Dermatologic: Healed medial right ankle and lateral wounds. recurrent dorsal foot wound right foot. right plantar foot wound. Increased maceration to periwound edges to dorsal foot and right plantar foot along with periwound erythema edema and warmth. Moderate serosanguineous drainage noted. No deep probing undermining. Wounds demonstrate clean granular bases postdebridement. 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 This appears to contribute to wound formation and poor ambulatory status patient. Patient has diffuse muscular weakness 4 out of 5 to bilateral lower extremity compartments. On the left lower extremity patient has an equinus contracture to the hindfoot. Const alert and oriented x3 Debridement Note Debridement Note Post-Debridement Measurements and Additional Note: Post-Debridement Measurements/Treatment SASHA - Nurse 1 - General Ulcer Assessment Start: 10/04/24 10:52 Freq: Status: Active Protocol: SASHA.LOWEXT Activity Type Activity Date Activity User E-sign Co-sign Detail Recorded Client Recorded Date Recorded By Document 10/04/24 10:52 RB [id number] 10/04/24 10:54 RB Document 10/11/24 10:48 RB [id number] 10/11/24 10:51 RB 10/04/24 10/11/24 10:52 10:48 - Today's Visit Information Type of service Follow-up Visit Follow-up Visit (Physician/MEMBERSHIP SECRETARY (Physician/MEMBERSHIP SECRETARY ) ) Arrival Mode Wheelchair Wheelchair Transfer Assistance Manual Manual Patient Identification Verified (Name & Yes Yes ) Patient Requires Transmission-Based No No Precautions Vital Signs Temperature (97.8 F-99.1 F) 96.5 F L 98.1 F Temperature Source Temporal Temporal Pulse Rate (60-100) 59 L 60 Pulse Location Monitor Monitor Respiratory Rate (12-18) 18 18 Respiratory rate source Observation Observation Blood Pressure (90/60-120/80) 106/60 94/54 L Blood Pressure Mean (mm Hg) 75 67 Source Monitor Monitor Position Semi-Fowlers Semi-Fowlers Blood Pressure Location Left Arm Left Arm History Since Last Visit- (Skip if this is Patient's initial visit) Have you changed medications since your No No last visit? Any new allergies or adverse reactions No No Had a fall/change in ADL's that may No No increase risk of falls Signs or symptoms of abuse and/or No No neglect since last visit Have you been in the hospital since your No No last visit? Has dressing in place as prescribed Yes Yes Has compression in place as prescribed Yes Yes Has offloadiing in place as prescribed Yes Yes Experienced any changes in pain level or No No management Left Footwear Surgical Shoe Surgical Shoe with pressure with pressure relief insole relief insole Right Footwear Surgical Shoe Surgical Shoe with pressure with pressure relief insole relief insole Pain Scale: 0-10 Numeric Is Patient Pain Free? Yes Yes - Nurse 1 - General Ulcer Measurement Start: 10/04/24 10:52 Freq: Status: Active Protocol: Activity Type Activity Date Activity User E-sign Co-sign Detail Recorded Client Recorded Date Recorded By Document 10/04/24 10:52 RB [id number] 10/04/24 10:54 RB Document 10/11/24 10:48 RB [id number] 10/11/24 10:51 RB 10/04/24 10/11/24 10:52 10:48 Wound Center Nurse 1 14-right dorsal foot -Combined with other wound No -Current Size (cm) - Length 0.1 -Current Size (cm) - Width 0.1 -Current Size (cm) - Depth 0.1 -Total Square Cm 0.01 -Photo Taken Yes -Epithelialization Large 67-100% -Exudate Amt None Present -Wound Margin Distinct, Outline Attached -Granulation Amt Large (67-100%) -Granulation Quality Narciso Pena -Slough/Fibrin No -Structure Exposed N/A -Texture (Yuliet-wound Skin Appearance) Assessed -Moisture (Yuliet-wound Skin Appearance) Assessed -Color (Yuliet-wound Skin Appearance) Assessed -Temperature (Yuliet-wound Skin No Abnormality Appearance) (Pt Warm) -Tenderness on Palpation (Yuliet-wound No Skin Appearance) -Ulcer Cleansing Wound Cleanser -Foul Odor after Cleansing No 15. R blum cluster -Combined with other wound No -Current Size (cm) - Length 6 -Current Size (cm) - Width 4.4 -Current Size (cm) - Depth 0.1 -Total Square Cm 26.4 -Photo Taken Yes -Tunneling No -Undermining/Tunneling No -Circular Undermining No -Exudate Amt Medium -Exudate Type Serosanguineous -Wound Margin Distinct, Outline Attached -Granulation Amt Medium (34-66%) -Granulation Quality Narciso Pena -Slough/Fibrin Yes -Necrosis Amt Medium (34-66%) -Necrotic Tissue Type Adherent Slough -Structure Exposed N/A -Texture (Yuliet-wound Skin Appearance) Assessed -Moisture (Yuliet-wound Skin Appearance) Dry/Scaly -Color (Yuliet-wound Skin Appearance) Assessed -Temperature (Yuliet-wound Skin No Abnormality Appearance) (Pt Warm) -Tenderness on Palpation (Yuliet-wound No Skin Appearance) -Ulcer Cleansing Wound Cleanser -Foul Odor after Cleansing No -Anesthetic Used 5% Lidocaine Gel 7-right plantar foot -Combined with other wound No No -Current Size (cm) - Length 3.5 4 -Current Size (cm) - Width 3.5 3.2 -Current Size (cm) - Depth 0.2 0.1 -Total Square Cm 12.25 12.8 -Photo Taken Yes Yes -Tunneling No No -Undermining/Tunneling No No -Circular Undermining No No -Exudate Amt Medium Medium -Exudate Type Serosanguineous Serosanguineous -Wound Margin Distinct, Distinct, Outline Outline Attached Attached -Granulation Amt Medium (34-66%) Medium (34-66%) -Granulation Quality Narciso Pena Narciso Pena -Slough/Fibrin Yes Yes -Necrosis Amt Medium (34-66%) Small (1-33%) -Necrotic Tissue Type Adherent Slough Adherent Slough -Structure Exposed N/A None/Limited to Skin Breakdown -Texture (Yuliet-wound Skin Appearance) Assessed Callus -Moisture (Yuliet-wound Skin Appearance) Dry/Scaly Assessed -Color (Yuliet-wound Skin Appearance) No Abnormality Assessed -Temperature (Yuliet-wound Skin No Abnormality No Abnormality Appearance) (Pt Warm) (Pt Warm) -Tenderness on Palpation (Yuliet-wound No No Skin Appearance) -Ulcer Cleansing Wound Cleanser Wound Cleanser -Foul Odor after Cleansing No No -Anesthetic Used 5% Lidocaine 5% Lidocaine Gel Gel Lower Limb Edema Present Yes Yes Right Calf (cm) 36 37.5 Right Ankle (cm) 25 23.5 WC - Nurse 2 - General Ulcer CM Notes Start: 10/04/24 10:52 Freq: Status: Active Protocol: Activity Type Activity Date Activity User E-sign Co-sign Detail Recorded Client Recorded Date Recorded By Document 10/04/24 10:58 [id number] 10/04/24 11:00 Edit Result 10/04/24 10:58 (1) [id number] 10/04/24 11:03 JF Document 10/11/24 10:56 [id number] 10/11/24 10:59 (1) 7-right plantar foot - Post Debridement (cm) - Length => 4 - Post Debridement (cm) - Width => 2 - Post Debridement (cm) - Depth => 0.2 - Total Square (Post) (cm) => 8 - Area of Debridement (cm) - Length => 4 - Area of Debridement (cm) - Width => 2 - Total Square (Area) (cm) => 8 10/04/24 10/11/24 10:58 10:56 Wound Center Nurse 2 14-right dorsal foot -Correct Patient Yes -Correct Side, Site, Position No -Correct Procedure No -Procedure Performed No -Post Debridement (cm) - Length 0 -Post Debridement (cm) - Width 0 -Post Debridement (cm) - Depth 0 -Total Square (Post) (cm) 0 -Area of Debridement (cm) - Length 0 -Area of Debridement (cm) - Width 0 -Total Square (Area) (cm) 0 -Wound/Ulcer Outcome Healed- Epithelialized 15. R blum cluster -Correct Patient Yes -Correct Side, Site, Position No -Correct Procedure No -Procedure Performed No -Wound/Ulcer Outcome Not Healed -Ulcer Cleansing Rinsed/ Irrigated with Saline -Foul Odor after Cleansing No -Bioengineered Tissue No -Bleeding Controlled with Pressure -Treatment Response Procedure Tolerated Well -Offloading No -Debridement - Subq, 1st 20sq cm No 7-right plantar foot -Time 10:59 10:57 -Correct Patient Yes Yes -Correct Side, Site, Position Yes Yes -Correct Procedure Yes Yes -Procedure Performed Yes Yes -Type of Procedure Debridement Debridement -Clinical Debridement Subcutaneous Subcutaneous -Tissue Removed Subcutaneous Subcutaneous -Post Debridement (cm) - Length 4 3.5 -Post Debridement (cm) - Width 2 3.5 -Post Debridement (cm) - Depth 0.2 0.1 -Total Square (Post) (cm) 8 12.25 -Area of Debridement (cm) - Length 4 3.5 -Area of Debridement (cm) - Width 2 3.5 -Total Square (Area) (cm) 8 12.25 -Tunneling No No -Undermining/Tunneling No No -Circular Undermining No No -Wound/Ulcer Outcome Not Healed Not Healed -Ulcer Cleansing Rinsed/ Rinsed/ Irrigated with Irrigated with Saline Saline -Foul Odor after Cleansing No No -Bioengineered Tissue No No -Bleeding Controlled with Pressure Pressure -Treatment Response Procedure Procedure Tolerated Well Tolerated Well -Offloading Yes Yes -Type of Offloading Surgical Shoe Surgical Shoe -Debridement - Subq, 1st 20sq cm Yes Yes Pain Scale: 0-10 Numeric Is Patient Pain Free? Yes Yes - Nurse 3 - General Ulcer D/C NN Start: 10/04/24 10:52 Freq: Status: Active Protocol: Activity Type Activity Date Activity User E-sign Co-sign Detail Recorded Client Recorded Date Recorded By Document 10/04/24 11:21 JUAN RAMON [id number] 10/04/24 11:23 JF Document 10/11/24 10:59 JUAN RAMON [id number] 10/11/24 11:00 JF 10/04/24 10/11/24 11:21 10:59 Wound Care Center Nurse 3 15. R blum cluster -Ulcer Cleansing Rinsed/ Irrigated with Saline -Foul Odor after Cleansing No -Primary Dressing Applied Fibracol Plus 4x4 -Primary Dressing Covered/Secured with Dry Gauze & Roll Gauze, Secured with Tape -Fibracol Plus 4x4 1 7-right plantar foot -Ulcer Cleansing Rinsed/ Rinsed/ Irrigated with Irrigated with Saline Saline -Foul Odor after Cleansing No -Primary Dressing Applied Fibracol Plus Fibracol Plus 4x4 4x4 -Primary Dressing Covered/Secured with Dry Gauze & Dry Gauze & Roll Gauze, Roll Gauze, Secured with Secured with Tape Tape -Fibracol Plus 4x4 1 0 right leg -Tubular Bandage Double Layer -Size of Tubigrip Used Size E -Size E ($) 2 BLE -Tubular Bandage Single Layer -Size of Tubigrip Used Size D -Size D ($) 2 Pain Scale: 0-10 Numeric Is Patient Pain Free? Yes Yes WC - Visit Discharge Discharge Condition Stable Stable Ambulatory Status Wheelchair Wheelchair Transportation Private Auto Private Auto Medication Reconcilliation completed & Yes Yes provided to patient/care provider Clinical Summary of Care Provided Yes Yes Assessment/Plan Assessment/Plan (1) Venous insufficiency (chronic) (peripheral): CODE(S): I87.2 - Venous insufficiency (chronic) (peripheral) (2) Other specified peripheral vascular diseases: CODE(S): I73.89 - Other specified peripheral vascular diseases (3) Cellulitis of right lower limb: CODE(S): L03.115 - Cellulitis of right lower limb (4) Non-pressure 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 foot with fat layer exposed: CODE(S): L97.512 - Non-pressure 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 foot with fat layer exposed (5) Non-pressure chronic ulcer of other part of left foot with fat layer exposed: CODE(S): L97.522 - Non-pressure chronic ulcer of other part of left foot with fat layer exposed (6) Tinea unguium: CODE(S): B35.1 - Tinea unguium (7) Pain in right toe(s): CODE(S): M79.674 - Pain in right toe(s) (8) Pain in left toe(s): CODE(S): M79.675 - Pain in left toe(s) PLAN: Plan Exam performed wounds to right foot healing well Right foot wound plantarly excisionally debrided down to including level subcutaneous tissue of all nonviable tissue using dermal curette. Patient tolerated procedure well. Topical anesthesia used. Hemostasis obtained with light compression. Pre and postdebridement measurements documented nursing notes. will start Fibracol at current with DSD and tubigrip patient is minimally ambulatory due to right lower extremity contracture Follow-up weekly
--- NOTE | 2024-10-12 09:52 | WC ---
PHOTO 10/11/24 RIGHT ANGEL CLUSTER
--- NOTE | 2024-10-12 09:53 | WC ---
PHOTO 10/11/24 RIGHT PLANTAR
[2024-10-18 11:24] VITALS: BP 101/59; PULSE 58; RESP 18; TEMP 36.3
--- NOTE | 2024-10-18 11:44 | PCM.WC.PN ---
History of Present Illness Date of Service: 10/18/24 Chief Complaint: Chronic, non-healing, right lower extremity ulcers History of Wound: This is an 84-year-old male with chronic ulcerations, dermatitis, and excoriations in his right lower extremity, and a history of chronic venous insufficiency. 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 Patient has non-healing wound to right foot and is here for follow up. Patient denies constitutional symptoms. Patient denies any other complaints. Objective Data Objective Data Vital Signs: Vital Signs Temp Pulse Resp BP 97.4 F L 58 L 18 101/59 L 10/18/24 11:24 10/18/24 11:24 10/18/24 11:24 10/18/24 11:24 Physical Exam Narrative Vascular: Dorsalis pedis posterior tibial pulses palpable to bilateral lower extremity. Atrophic skin changes such as shiny taut appearance noted with absent digital hair growth. Patient does have +1 pitting edema to bilateral lower extremity with hemosiderin deposits noted. Neurologic: Light touch protective sensation diminished bilateral feet. Dermatologic: Healed medial right ankle and lateral wounds. recurrent dorsal foot wound right foot. right plantar foot wound. Increased maceration to periwound edges to dorsal foot and right plantar foot along with periwound erythema edema and warmth. Moderate serosanguineous drainage noted. No deep probing undermining. Wounds demonstrate clean granular bases postdebridement. 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 This appears to contribute to wound formation and poor ambulatory status patient. Patient has diffuse muscular weakness 4 out of 5 to bilateral lower extremity compartments. On the left lower extremity patient has an equinus contracture to the hindfoot. Const alert and oriented x3 Debridement Note Debridement Note Post-Debridement Measurements and Additional Note: Post-Debridement Measurements/Treatment WC - Nurse 1 - General Ulcer Assessment Start: 10/04/24 10:52 Freq: Status: Active Protocol: [email or web address] Activity Type Activity Date Activity User E-sign Co-sign Detail Recorded Client Recorded Date Recorded By Document 10/04/24 10:52 JERILYN [id number] 10/04/24 10:54 RB Document 10/11/24 10:48 RB [id number] 10/11/24 10:51 RB Document 10/18/24 11:24 RB [id number] 10/18/24 11:26 RB 10/04/24 10/11/24 10/18/24 10:52 10:48 11:24 - Today's Visit Information Type of service Follow-up Visit Follow-up Visit Follow-up Visit (Physician/JOINT MAKER MACHINE (Physician/JOINT MAKER MACHINE (Physician/JOINT MAKER MACHINE ) ) ) Arrival Mode Wheelchair Wheelchair Wheelchair Transfer Assistance Manual Manual Manual Patient Identification Verified (Name & Yes Yes Yes ) Patient Requires Transmission-Based No No No Precautions Vital Signs Temperature (97.8 F-99.1 F) 96.5 F L 98.1 F 97.4 F L Temperature Source Temporal Temporal Temporal Pulse Rate (60-100) 59 L 60 58 L Pulse Location Monitor Monitor Monitor Respiratory Rate (12-18) 18 18 18 Respiratory rate source Observation Observation Observation Blood Pressure (90/60-120/80) 106/60 94/54 L 101/59 L Blood Pressure Mean (mm Hg) 75 67 73 Source Monitor Monitor Monitor Position Semi-Fowlers Semi-Fowlers Sitting Blood Pressure Location Left Arm Left Arm Left Arm History Since Last Visit- (Skip if this is Patient's initial visit) Have you changed medications since your No No No last visit? Any new allergies or adverse reactions No No No Had a fall/change in ADL's that may No No No increase risk of falls Signs or symptoms of abuse and/or No No No neglect since last visit Have you been in the hospital since your No No No last visit? Has dressing in place as prescribed Yes Yes Yes Has compression in place as prescribed Yes Yes Yes Has offloadiing in place as prescribed Yes Yes Yes Experienced any changes in pain level or No No No management Left Footwear Surgical Shoe Surgical Shoe Surgical Shoe with pressure with pressure with pressure relief insole relief insole relief insole Right Footwear Surgical Shoe Surgical Shoe Surgical Shoe with pressure with pressure with pressure relief insole relief insole relief insole Pain Scale: 0-10 Numeric Is Patient Pain Free? Yes Yes Yes - Nurse 1 - General Ulcer Measurement Start: 10/04/24 10:52 Freq: Status: Active Protocol: Activity Type Activity Date Activity User E-sign Co-sign Detail Recorded Client Recorded Date Recorded By Document 10/04/24 10:52 RB [id number] 10/04/24 10:54 RB Document 10/11/24 10:48 RB [id number] 10/11/24 10:51 RB Document 10/18/24 11:24 RB [id number] 10/18/24 11:26 RB 10/04/24 10/11/24 10/18/24 10:52 10:48 11:24 Wound Center Nurse 1 14-right dorsal foot -Combined with other wound No -Current Size (cm) - Length 0.1 -Current Size (cm) - Width 0.1 -Current Size (cm) - Depth 0.1 -Total Square Cm 0.01 -Photo Taken Yes -Epithelialization Large 67-100% -Exudate Amt None Present -Wound Margin Distinct, Outline Attached -Granulation Amt Large (67-100%) -Granulation Quality [place] -Slough/Fibrin No -Structure Exposed N/A -Texture (Yul[place]-wound Skin Appearance) Assessed -Moisture ([place]-wound Skin Appearance) Assessed -Color ([place]ul[place]-wound Skin Appearance) Assessed -Temperature ([place]-wound Skin No Abnormality Appearance) (Pt Warm) -Tenderness on Palpation ([place]ul[place]-wound No Skin Appearance) -Ulcer Cleansing Wound Cleanser -Foul Odor after Cleansing No 15. R blum cluster -Combined with other wound No No -Current Size (cm) - Length 6 1.2 -Current Size (cm) - Width 4.4 0.6 -Current Size (cm) - Depth 0.1 0.1 -Total Square Cm 26.4 0.72 -Photo Taken Yes Yes -Tunneling No No -Undermining/Tunneling No No -Circular Undermining No No -Exudate Amt Medium Medium -Exudate Type Serosanguineous Serosanguineous -Wound Margin Distinct, Distinct, Outline Outline Attached Attached -Granulation Amt Medium (34-66%) Medium (34-66%) -Granulation Quality [place] -Slough/Fibrin Yes Yes -Necrosis Amt Medium (34-66%) Small (1-33%) -Necrotic Tissue Type Adherent Slough Adherent Slough -Structure Exposed N/A N/A -Texture ([place]ul[place]-wound Skin Appearance) Assessed Assessed -Moisture ([place]ul[place]-wound Skin Appearance) Dry/Scaly Dry/Scaly -Color ([place]ul[place]-wound Skin Appearance) Assessed Assessed -Temperature ([place]-wound Skin No Abnormality No Abnormality Appearance) (Pt Warm) (Pt Warm) -Tenderness on Palpation ([place]ul[place]-wound No No Skin Appearance) -Ulcer Cleansing Wound Cleanser Wound Cleanser -Foul Odor after Cleansing No No -Anesthetic Used 5% Lidocaine 5% Lidocaine Gel Gel 7-right plantar foot -Combined with other wound No No No -Current Size (cm) - Length 3.5 4 4 -Current Size (cm) - Width 3.5 3.2 3.8 -Current Size (cm) - Depth 0.2 0.1 0.1 -Total Square Cm 12.25 12.8 15.2 -Photo Taken Yes Yes Yes -Tunneling No No No -Undermining/Tunneling No No No -Circular Undermining No No No -Exudate Amt Medium Medium Medium -Exudate Type Serosanguineous Serosanguineous Serosanguineous -Wound Margin Distinct, Distinct, Distinct, Outline Outline Outline Attached Attached Attached -Granulation Amt Medium (34-66%) Medium (34-66%) Medium (34-66%) -Granulation Quality [place] -Slough/Fibrin Yes Yes Yes -Necrosis Amt Medium (34-66%) Small (1-33%) Small (1-33%) -Necrotic Tissue Type Adherent Slough Adherent Slough Adherent Slough -Structure Exposed N/A None/Limited to N/A Skin Breakdown -Texture (Yul[place]-wound Skin Appearance) Assessed Callus Callus -Moisture (Yul[place]-wound Skin Appearance) Dry/Scaly Assessed Assessed -Color ([place]ul[place]-wound Skin Appearance) No Abnormality Assessed Assessed -Temperature ([place]-wound Skin No Abnormality No Abnormality No Abnormality Appearance) (Pt Warm) (Pt Warm) (Pt Warm) -Tenderness on Palpation (Yuliet-wound No No No Skin Appearance) -Ulcer Cleansing Wound Cleanser Wound Cleanser Wound Cleanser -Foul Odor after Cleansing No No No -Anesthetic Used 5% Lidocaine 5% Lidocaine 5% Lidocaine Gel Gel Gel Lower Limb Edema Present Yes Yes Yes Right Calf (cm) 36 37.5 36.5 Right Ankle (cm) 25 23.5 24.5 Left Calf (cm) 34 Left Ankle (cm) 24 WC - Nurse 2 - General Ulcer CM Notes Start: 10/04/24 10:52 Freq: Status: Active Protocol: Activity Type Activity Date Activity User E-sign Co-sign Detail Recorded Client Recorded Date Recorded By Document 10/04/24 10:58 JUAN RAMON [id number] 10/04/24 11:00 Edit Result 10/04/24 10:58 JUAN RAMON (1) [id number] 10/04/24 11:03 JF Document 10/11/24 10:56 JUAN RAMON [id number] 10/11/24 10:59 JF (1) 7-right plantar foot - Post Debridement (cm) - Length => 4 - Post Debridement (cm) - Width => 2 - Post Debridement (cm) - Depth => 0.2 - Total Square (Post) (cm) => 8 - Area of Debridement (cm) - Length => 4 - Area of Debridement (cm) - Width => 2 - Total Square (Area) (cm) => 8 10/04/24 10/11/24 10:58 10:56 Wound Center Nurse 2 14-right dorsal foot -Correct Patient Yes -Correct Side, Site, Position No -Correct Procedure No -Procedure Performed No -Post Debridement (cm) - Length 0 -Post Debridement (cm) - Width 0 -Post Debridement (cm) - Depth 0 -Total Square (Post) (cm) 0 -Area of Debridement (cm) - Length 0 -Area of Debridement (cm) - Width 0 -Total Square (Area) (cm) 0 -Wound/Ulcer Outcome Healed- Epithelialized 15. R blum cluster -Correct Patient Yes -Correct Side, Site, Position No -Correct Procedure No -Procedure Performed No -Wound/Ulcer Outcome Not Healed -Ulcer Cleansing Rinsed/ Irrigated with Saline -Foul Odor after Cleansing No -Bioengineered Tissue No -Bleeding Controlled with Pressure -Treatment Response Procedure Tolerated Well -Offloading No -Debridement - Subq, 1st 20sq cm No 7-right plantar foot -Time 10:59 10:57 -Correct Patient Yes Yes -Correct Side, Site, Position Yes Yes -Correct Procedure Yes Yes -Procedure Performed Yes Yes -Type of Procedure Debridement Debridement -Clinical Debridement Subcutaneous Subcutaneous -Tissue Removed Subcutaneous Subcutaneous -Post Debridement (cm) - Length 4 3.5 -Post Debridement (cm) - Width 2 3.5 -Post Debridement (cm) - Depth 0.2 0.1 -Total Square (Post) (cm) 8 12.25 -Area of Debridement (cm) - Length 4 3.5 -Area of Debridement (cm) - Width 2 3.5 -Total Square (Area) (cm) 8 12.25 -Tunneling No No -Undermining/Tunneling No No -Circular Undermining No No -Wound/Ulcer Outcome Not Healed Not Healed -Ulcer Cleansing Rinsed/ Rinsed/ Irrigated with Irrigated with Saline Saline -Foul Odor after Cleansing No No -Bioengineered Tissue No No -Bleeding Controlled with Pressure Pressure -Treatment Response Procedure Procedure Tolerated Well Tolerated Well -Offloading Yes Yes -Type of Offloading Surgical Shoe Surgical Shoe -Debridement - Subq, 1st 20sq cm Yes Yes Pain Scale: 0-10 Numeric Is Patient Pain Free? Yes Yes - Nurse 3 - General Ulcer D/C NN Start: 10/04/24 10:52 Freq: Status: Active Protocol: Activity Type Activity Date Activity User E-sign Co-sign Detail Recorded Client Recorded Date Recorded By Document 10/04/24 11:21 [id number] 10/04/24 11:23 Document 10/11/24 10:59 [id number] 10/11/24 11:00 10/04/24 10/11/24 11:21 10:59 Wound Care Center Nurse 3 15. R blum cluster -Ulcer Cleansing Rinsed/ Irrigated with Saline -Foul Odor after Cleansing No -Primary Dressing Applied Fibracol Plus 4x4 -Primary Dressing Covered/Secured with Dry Gauze & Roll Gauze, Secured with Tape -Fibracol Plus 4x4 1 7-right plantar foot -Ulcer Cleansing Rinsed/ Rinsed/ Irrigated with Irrigated with Saline Saline -Foul Odor after Cleansing No -Primary Dressing Applied Fibracol Plus Fibracol Plus 4x4 4x4 -Primary Dressing Covered/Secured with Dry Gauze & Dry Gauze & Roll Gauze, Roll Gauze, Secured with Secured with Tape Tape -Fibracol Plus 4x4 1 0 right leg -Tubular Bandage Double Layer -Size of Tubigrip Used Size E -Size E ($) 2 BLE -Tubular Bandage Single Layer -Size of Tubigrip Used Size D -Size D ($) 2 Pain Scale: 0-10 Numeric Is Patient Pain Free? Yes Yes - Visit Discharge Discharge Condition Stable Stable Ambulatory Status Wheelchair Wheelchair Transportation Private Auto Private Auto Medication Reconcilliation completed & Yes Yes provided to patient/care provider Clinical Summary of Care Provided Yes Yes Assessment/Plan Assessment/Plan (1) Venous insufficiency (chronic) (peripheral): CODE(S): I87.2 - Venous insufficiency (chronic) (peripheral) (2) Other specified peripheral vascular diseases: CODE(S): I73.89 - Other specified peripheral vascular diseases (3) Cellulitis of right lower limb: CODE(S): L03.115 - Cellulitis of right lower limb (4) Non-pressure 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 foot with fat layer exposed: CODE(S): L97.512 - Non-pressure 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 foot with fat layer exposed (5) Non-pressure chronic ulcer of other part of left foot with fat layer exposed: CODE(S): L97.522 - Non-pressure chronic ulcer of other part of left foot with fat layer exposed (6) Tinea unguium: CODE(S): B35.1 - Tinea unguium (7) Pain in right toe(s): CODE(S): M79.674 - Pain in right toe(s) (8) Pain in left toe(s): CODE(S): M79.675 - Pain in left toe(s) PLAN: Plan Exam performed wounds to right foot healing well Right foot wound plantarly excisionally debrided down to including level subcutaneous tissue of all nonviable tissue using dermal curette. Patient tolerated procedure well. Topical anesthesia used. Hemostasis obtained with light compression. Pre and postdebridement measurements documented nursing notes. will start Fibracol at current with DSD and tubigrip patient is minimally ambulatory due to right lower extremity contracture Follow-up weekly
--- NOTE | 2024-10-20 09:32 | WC ---
PHOTO 10/18/24 RIGHT ANGEL
--- NOTE | 2024-10-20 09:33 | WC ---
PHOTO 10/18/24 RIGHT FOOT
[2024-10-25 10:35] VITALS: BP 89/41; PULSE 58; RESP 18; TEMP 36.1
--- NOTE | 2024-10-25 11:30 | PCM.WC.PN ---
History of Present Illness Date of Service: 10/25/24 Chief Complaint: Chronic, non-healing, right lower extremity ulcers History of Wound: This is an 84-year-old male with chronic ulcerations, dermatitis, and excoriations in his right lower extremity, and a history of chronic venous insufficiency. 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 Patient has non-healing wound to right foot and is here for follow up. Patient denies constitutional symptoms. Patient denies any other complaints. Objective Data Objective Data Vital Signs: Vital Signs Temp Pulse Resp BP O2 Del Method 97.0 F L 58 L 18 89/41 L Room Air 10/25/24 10:35 10/25/24 10:35 10/25/24 10:35 10/25/24 10:35 10/25/24 10:35 Oxygen Delivery Method Room Air Physical Exam Narrative Vascular: Dorsalis pedis posterior tibial pulses palpable to bilateral lower extremity. Atrophic skin changes such as shiny taut appearance noted with absent digital hair growth. Patient does have +1 pitting edema to bilateral lower extremity with hemosiderin deposits noted. Neurologic: Light touch protective sensation diminished bilateral feet. Dermatologic: Healed medial right ankle and lateral wounds. recurrent dorsal foot wound right foot. right plantar foot wound. Increased maceration to periwound edges to dorsal foot and right plantar foot along with periwound erythema edema and warmth. Moderate serosanguineous drainage noted. No deep probing undermining. Wounds demonstrate clean granular bases postdebridement. 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 This appears to contribute to wound formation and poor ambulatory status patient. Patient has diffuse muscular weakness 4 out of 5 to bilateral lower extremity compartments. On the left lower extremity patient has an equinus contracture to the hindfoot. Const alert and oriented x3 Debridement Note Debridement Note Post-Debridement Measurements and Additional Note: Post-Debridement Measurements/Treatment SASHA - Nurse 1 - General Ulcer Assessment Start: 10/04/24 10:52 Freq: Status: Active Protocol: MARTA Activity Type Activity Date Activity User E-sign Co-sign Detail Recorded Client Recorded Date Recorded By Document 10/04/24 10:52 RB [id number] 10/04/24 10:54 RB Document 10/11/24 10:48 RB [id number] 10/11/24 10:51 RB Document 10/18/24 11:24 RB [id number] 10/18/24 11:26 RB Document 10/25/24 10:35 KW [id number] 10/25/24 10:54 KW 10/04/24 10/11/24 10/18/24 10:52 10:48 11:24 WC - Today's Visit Information Type of service Follow-up Visit Follow-up Visit Follow-up Visit (Physician/ASSOCIATE CIVIL ENGINEER (Physician/ASSOCIATE CIVIL ENGINEER (Physician/ASSOCIATE CIVIL ENGINEER ) ) ) Arrival Mode Wheelchair Wheelchair Wheelchair Transfer Assistance Manual Manual Manual Patient Identification Verified (Name & Yes Yes Yes ) Patient Requires Transmission-Based No No No Precautions Vital Signs Temperature (97.8 F-99.1 F) 96.5 F L 98.1 F 97.4 F L Temperature Source Temporal Temporal Temporal Pulse Rate (60-100) 59 L 60 58 L Pulse Location Monitor Monitor Monitor Respiratory Rate (12-18) 18 18 18 Respiratory rate source Observation Observation Observation Oxygen Delivery Method Blood Pressure (90/60-120/80) 106/60 94/54 L 101/59 L Blood Pressure Mean (mm Hg) 75 67 73 Source Monitor Monitor Monitor Position Semi-Fowlers Semi-Fowlers Sitting Blood Pressure Location Left Arm Left Arm Left Arm History Since Last Visit- (Skip if this is Patient's initial visit) Have you changed medications since your No No No last visit? Any new allergies or adverse reactions No No No Had a fall/change in ADL's that may No No No increase risk of falls Signs or symptoms of abuse and/or No No No neglect since last visit Have you been in the hospital since your No No No last visit? Has dressing in place as prescribed Yes Yes Yes Has compression in place as prescribed Yes Yes Yes Has offloadiing in place as prescribed Yes Yes Yes Experienced any changes in pain level or No No No management Left Footwear Surgical Shoe Surgical Shoe Surgical Shoe with pressure with pressure with pressure relief insole relief insole relief insole Right Footwear Surgical Shoe Surgical Shoe Surgical Shoe with pressure with pressure with pressure relief insole relief insole relief insole Pain Scale: 0-10 Numeric Is Patient Pain Free? Yes Yes Yes 10/25/24 10:35 WC - Today's Visit Information Type of service Follow-up Visit (Physician/ASSOCIATE CIVIL ENGINEER ) Arrival Mode Wheelchair Transfer Assistance Patient Identification Verified (Name & Yes ) Patient Requires Transmission-Based Precautions Vital Signs Temperature (97.8 F-99.1 F) 97.0 F L Temperature Source Temporal Pulse Rate (60-100) 58 L Pulse Location Monitor Respiratory Rate (12-18) 18 Respiratory rate source Observation Oxygen Delivery Method Room Air Blood Pressure (90/60-120/80) 89/41 L Blood Pressure Mean (mm Hg) 57 Source Monitor Position Sitting Blood Pressure Location Left Arm History Since Last Visit- (Skip if this is Patient's initial visit) Have you changed medications since your No last visit? Any new allergies or adverse reactions No Had a fall/change in ADL's that may No increase risk of falls Signs or symptoms of abuse and/or No neglect since last visit Have you been in the hospital since your No last visit? Has dressing in place as prescribed Yes Has compression in place as prescribed Yes Has offloadiing in place as prescribed Yes Experienced any changes in pain level or No management Left Footwear Surgical Shoe with pressure relief insole Right Footwear Surgical Shoe with pressure relief insole Pain Scale: 0-10 Numeric Is Patient Pain Free? Yes WC - Nurse 1 - General Ulcer Measurement Start: 10/04/24 10:52 Freq: Status: Active Protocol: Activity Type Activity Date Activity User E-sign Co-sign Detail Recorded Client Recorded Date Recorded By Document 10/04/24 10:52 RB [id number] 10/04/24 10:54 RB Document 10/11/24 10:48 RB [id number] 10/11/24 10:51 RB Document 10/18/24 11:24 RB [id number] 10/18/24 11:26 RB Document 10/25/24 10:35 KW [id number] 10/25/24 10:54 KW 10/04/24 10/11/24 10/18/24 10:52 10:48 11:24 Wound Center Nurse 1 14-right dorsal foot -Combined with other wound No -Current Size (cm) - Length 0.1 -Current Size (cm) - Width 0.1 -Current Size (cm) - Depth 0.1 -Total Square Cm 0.01 -Photo Taken Yes -Epithelialization Large 67-100% -Exudate Amt None Present -Wound Margin Distinct, Outline Attached -Granulation Amt Large (67-100%) -Granulation Quality [place] -Slough/Fibrin No -Structure Exposed N/A -Texture ([place]ul[place]-wound Skin Appearance) Assessed -Moisture ([place]-wound Skin Appearance) Assessed -Color ([place]-wound Skin Appearance) Assessed -Temperature ([place]-wound Skin No Abnormality Appearance) (Pt Warm) -Tenderness on Palpation ([place]-wound No Skin Appearance) -Ulcer Cleansing Wound Cleanser -Foul Odor after Cleansing No 15. R blum cluster -Combined with other wound No No -Current Size (cm) - Length 6 1.2 -Current Size (cm) - Width 4.4 0.6 -Current Size (cm) - Depth 0.1 0.1 -Total Square Cm 26.4 0.72 -Date of Last Picture (Recall this field) -Photo Taken Yes Yes -Tunneling No No -Undermining/Tunneling No No -Circular Undermining No No -Exudate Amt Medium Medium -Exudate Type Serosanguineous Serosanguineous -Wound Margin Distinct, Distinct, Outline Outline Attached Attached -Granulation Amt Medium (34-66%) Medium (34-66%) -Granulation Quality [place] -Slough/Fibrin Yes Yes -Necrosis Amt Medium (34-66%) Small (1-33%) -Necrotic Tissue Type Adherent Slough Adherent Slough -Structure Exposed N/A N/A -Texture ([place]ul[place]-wound Skin Appearance) Assessed Assessed -Moisture ([place]-wound Skin Appearance) Dry/Scaly Dry/Scaly -Color ([place]-wound Skin Appearance) Assessed Assessed -Temperature ([place]-wound Skin No Abnormality No Abnormality Appearance) (Pt Warm) (Pt Warm) -Tenderness on Palpation ([place]-wound No No Skin Appearance) -Ulcer Cleansing Wound Cleanser Wound Cleanser -Foul Odor after Cleansing No No -Anesthetic Used 5% Lidocaine 5% Lidocaine Gel Gel 7-right plantar foot -Combined with other wound No No No -Current Size (cm) - Length 3.5 4 4 -Current Size (cm) - Width 3.5 3.2 3.8 -Current Size (cm) - Depth 0.2 0.1 0.1 -Total Square Cm 12.25 12.8 15.2 -Photo Taken Yes Yes Yes -Tunneling No No No -Undermining/Tunneling No No No -Circular Undermining No No No -Exudate Amt Medium Medium Medium -Exudate Type Serosanguineous Serosanguineous Serosanguineous -Wound Margin Distinct, Distinct, Distinct, Outline Outline Outline Attached Attached Attached -Granulation Amt Medium (34-66%) Medium (34-66%) Medium (34-66%) -Granulation Quality [place] -Slough/Fibrin Yes Yes Yes -Necrosis Amt Medium (34-66%) Small (1-33%) Small (1-33%) -Necrotic Tissue Type Adherent Slough Adherent Slough Adherent Slough -Structure Exposed N/A None/Limited to N/A Skin Breakdown -Texture ([place]ul[place]-wound Skin Appearance) Assessed Callus Callus -Moisture ([place]ul[place]-wound Skin Appearance) Dry/Scaly Assessed Assessed -Color ([place]-wound Skin Appearance) No Abnormality Assessed Assessed -Temperature ([place]-wound Skin No Abnormality No Abnormality No Abnormality Appearance) (Pt Warm) (Pt Warm) (Pt Warm) -Tenderness on Palpation ([place]ul[place]-wound No No No Skin Appearance) -Ulcer Cleansing Wound Cleanser Wound Cleanser Wound Cleanser -Foul Odor after Cleansing No No No -Anesthetic Used 5% Lidocaine 5% Lidocaine 5% Lidocaine Gel Gel Gel Lower Limb Edema Present Yes Yes Yes Right Calf (cm) 36 37.5 36.5 Right Ankle (cm) 25 23.5 24.5 Left Calf (cm) 34 Left Ankle (cm) 24 10/25/24 10:35 Wound Center Nurse 1 14-right dorsal foot -Combined with other wound -Current Size (cm) - Length -Current Size (cm) - Width -Current Size (cm) - Depth -Total Square Cm -Photo Taken -Epithelialization -Exudate Amt -Wound Margin -Granulation Amt -Granulation Quality -Slough/Fibrin -Structure Exposed -Texture (Yuliet-wound Skin Appearance) -Moisture ([place]ul[place]-wound Skin Appearance) -Color ([place]-wound Skin Appearance) -Temperature ([place]-wound Skin Appearance) -Tenderness on Palpation ([place]ul[place]-wound Skin Appearance) -Ulcer Cleansing -Foul Odor after Cleansing 15. R blum cluster -Combined with other wound -Current Size (cm) - Length 4 -Current Size (cm) - Width 3.5 -Current Size (cm) - Depth 0.2 -Total Square Cm 14.0 -Date of Last Picture (Recall this 10/25/24 field) -Photo Taken -Tunneling -Undermining/Tunneling -Circular Undermining -Exudate Amt Small -Exudate Type Serosanguineous -Wound Margin Distinct, Outline Attached -Granulation Amt Small (1-33%) -Granulation Quality Red -Slough/Fibrin -Necrosis Amt Medium (34-66%) -Necrotic Tissue Type Eschar -Structure Exposed -Texture (Yuliet-wound Skin Appearance) Assessed -Moisture ([place]ul[place]-wound Skin Appearance) Assessed,Dry/ Scaly -Color ([place]ul[place]-wound Skin Appearance) Assessed -Temperature ([place]-wound Skin No Abnormality Appearance) (Pt Warm) -Tenderness on Palpation ([place]ul[place]-wound No Skin Appearance) -Ulcer Cleansing Soap and Water -Foul Odor after Cleansing No -Anesthetic Used 5% Lidocaine Gel 7-right plantar foot -Combined with other wound -Current Size (cm) - Length -Current Size (cm) - Width -Current Size (cm) - Depth -Total Square Cm -Photo Taken -Tunneling -Undermining/Tunneling -Circular Undermining -Exudate Amt Large -Exudate Type Serosanguineous -Wound Margin Distinct, Outline Attached -Granulation Amt Large (67-100%) -Granulation Quality [place] -Slough/Fibrin -Necrosis Amt Medium (34-66%) -Necrotic Tissue Type Adherent Slough -Structure Exposed -Texture (Yuliet-wound Skin Appearance) Assessed,Callus -Moisture ([place]ul[place]-wound Skin Appearance) Assessed, Maceration -Color ([place]ul[place]-wound Skin Appearance) Assessed -Temperature ([place]-wound Skin No Abnormality Appearance) (Pt Warm) -Tenderness on Palpation ([place]ul[place]-wound No Skin Appearance) -Ulcer Cleansing Soap and Water -Foul Odor after Cleansing No -Anesthetic Used 5% Lidocaine Gel Lower Limb Edema Present Right Calf (cm) Right Ankle (cm) Left Calf (cm) Left Ankle (cm) WC - Nurse 2 - General Ulcer CM Notes Start: 10/04/24 10:52 Freq: Status: Active Protocol: Activity Type Activity Date Activity User E-sign Co-sign Detail Recorded Client Recorded Date Recorded By Document 10/04/24 10:58 JUAN RAMON [id number] 10/04/24 11:00 JUAN RAMON Edit Result 10/04/24 10:58 JF (1) [id number] 10/04/24 11:03 Document 10/11/24 10:56 JF [id number] 10/11/24 10:59 JF Document 10/18/24 11:43 JF [id number] 10/18/24 11:45 JF Document 10/25/24 11:17 JF [id number] 10/25/24 11:21 JF (1) 7-right plantar foot - Post Debridement (cm) - Length => 4 - Post Debridement (cm) - Width => 2 - Post Debridement (cm) - Depth => 0.2 - Total Square (Post) (cm) => 8 - Area of Debridement (cm) - Length => 4 - Area of Debridement (cm) - Width => 2 - Total Square (Area) (cm) => 8 10/04/24 10/11/24 10/18/24 10:58 10:56 11:43 Wound Center Nurse 2 14-right dorsal foot -Correct Patient Yes -Correct Side, Site, Position No -Correct Procedure No -Procedure Performed No -Post Debridement (cm) - Length 0 -Post Debridement (cm) - Width 0 -Post Debridement (cm) - Depth 0 -Total Square (Post) (cm) 0 -Area of Debridement (cm) - Length 0 -Area of Debridement (cm) - Width 0 -Total Square (Area) (cm) 0 -Wound/Ulcer Outcome Healed- Epithelialized 15. R blum cluster -Time 11:44 -Correct Patient Yes Yes -Correct Side, Site, Position No Yes -Correct Procedure No Yes -Procedure Performed No Yes -Type of Procedure Debridement -Clinical Debridement Subcutaneous -Tissue Removed Subcutaneous -Post Debridement (cm) - Length 7 -Post Debridement (cm) - Width 1 -Post Debridement (cm) - Depth 0.1 -Total Square (Post) (cm) 7 -Area of Debridement (cm) - Length 7 -Area of Debridement (cm) - Width 1 -Total Square (Area) (cm) 7 -Tunneling No -Undermining/Tunneling No -Circular Undermining No -Wound/Ulcer Outcome Not Healed Not Healed -Ulcer Cleansing Rinsed/ Rinsed/ Irrigated with Irrigated with Saline Saline -Foul Odor after Cleansing No No -Bioengineered Tissue No No -Bleeding Controlled with Pressure Pressure -Treatment Response Procedure Procedure Tolerated Well Tolerated Well -Offloading No No -Debridement - Subq, 1st 20sq cm No No 7-right plantar foot -Time 10:59 10:57 11:44 -Correct Patient Yes Yes Yes -Correct Side, Site, Position Yes Yes Yes -Correct Procedure Yes Yes Yes -Procedure Performed Yes Yes Yes -Type of Procedure Debridement Debridement Debridement -Clinical Debridement Subcutaneous Subcutaneous Subcutaneous -Tissue Removed Subcutaneous Subcutaneous Subcutaneous -Post Debridement (cm) - Length 4 3.5 4 -Post Debridement (cm) - Width 2 3.5 4 -Post Debridement (cm) - Depth 0.2 0.1 0.2 -Total Square (Post) (cm) 8 12.25 16 -Area of Debridement (cm) - Length 4 3.5 4 -Area of Debridement (cm) - Width 2 3.5 4 -Total Square (Area) (cm) 8 12.25 16 -Tunneling No No No -Undermining/Tunneling No No No -Circular Undermining No No No -Wound/Ulcer Outcome Not Healed Not Healed Not Healed -Ulcer Cleansing Rinsed/ Rinsed/ Rinsed/ Irrigated with Irrigated with Irrigated with Saline Saline Saline -Foul Odor after Cleansing No No No -Bioengineered Tissue No No No -Bleeding Controlled with Pressure Pressure Pressure -Treatment Response Procedure Procedure Procedure Tolerated Well Tolerated Well Tolerated Well -Offloading Yes Yes No -Type of Offloading Surgical Shoe Surgical Shoe -Debridement - Subq, 1st 20sq cm Yes Yes Yes -Debridement, SubQ, ea addt'l 20sq cm 1 or part thereof Pain Scale: 0-10 Numeric Is Patient Pain Free? Yes Yes Yes 10/25/24 11:17 Wound Center Nurse 2 14-right dorsal foot -Correct Patient -Correct Side, Site, Position -Correct Procedure -Procedure Performed -Post Debridement (cm) - Length -Post Debridement (cm) - Width -Post Debridement (cm) - Depth -Total Square (Post) (cm) -Area of Debridement (cm) - Length -Area of Debridement (cm) - Width -Total Square (Area) (cm) -Wound/Ulcer Outcome 15. R blum cluster -Time 11:17 -Correct Patient Yes -Correct Side, Site, Position Yes -Correct Procedure Yes -Procedure Performed Yes -Type of Procedure Debridement -Clinical Debridement Subcutaneous -Tissue Removed Subcutaneous -Post Debridement (cm) - Length 0.5 -Post Debridement (cm) - Width 0.5 -Post Debridement (cm) - Depth 0.1 -Total Square (Post) (cm) 0.25 -Area of Debridement (cm) - Length 0.5 -Area of Debridement (cm) - Width 0.5 -Total Square (Area) (cm) 0.25 -Tunneling No -Undermining/Tunneling No -Circular Undermining No -Wound/Ulcer Outcome Not Healed -Ulcer Cleansing Rinsed/ Irrigated with Saline -Foul Odor after Cleansing No -Bioengineered Tissue No -Bleeding Controlled with Pressure -Treatment Response Procedure Tolerated Well -Offloading No -Debridement - Subq, 1st 20sq cm Yes 7-right plantar foot -Time 11:20 -Correct Patient Yes -Correct Side, Site, Position Yes -Correct Procedure Yes -Procedure Performed Yes -Type of Procedure Debridement -Clinical Debridement Subcutaneous -Tissue Removed Subcutaneous -Post Debridement (cm) - Length 3.5 -Post Debridement (cm) - Width 3.5 -Post Debridement (cm) - Depth 0.2 -Total Square (Post) (cm) 12.25 -Area of Debridement (cm) - Length 3.5 -Area of Debridement (cm) - Width 3.5 -Total Square (Area) (cm) 12.25 -Tunneling No -Undermining/Tunneling No -Circular Undermining No -Wound/Ulcer Outcome Not Healed -Ulcer Cleansing Rinsed/ Irrigated with Saline -Foul Odor after Cleansing No -Bioengineered Tissue No -Bleeding Controlled with Pressure -Treatment Response Procedure Tolerated Well -Offloading Yes -Type of Offloading Surgical Shoe -Debridement - Subq, 1st 20sq cm No -Debridement, SubQ, ea addt'l 20sq cm or part thereof Pain Scale: 0-10 Numeric Is Patient Pain Free? Yes - Nurse 3 - General Ulcer D/C NN Start: 10/04/24 10:52 Freq: Status: Active Protocol: Activity Type Activity Date Activity User E-sign Co-sign Detail Recorded Client Recorded Date Recorded By Document 10/04/24 11:21 JF [id number] 10/04/24 11:23 JF Document 10/11/24 10:59 JF [id number] 10/11/24 11:00 JF Document 10/18/24 12:11 KW [id number] 10/18/24 12:11 KW 04/08/25 04/15/25 04/22/25 11:21 10:59 12:11 Wound Care Center Nurse 3 15. R blum cluster -Ulcer Cleansing Rinsed/ Irrigated with Saline -Foul Odor after Cleansing No -Primary Dressing Applied Fibracol Plus Fibracol Plus 4x4 4x4 -Primary Dressing Covered/Secured with Dry Gauze & Dry Gauze,Dry Roll Gauze, Gauze & Roll Secured with Gauze,Secured Tape with Tape -Fibracol Plus 4x4 1 1 7-right plantar foot -Ulcer Cleansing Rinsed/ Rinsed/ Irrigated with Irrigated with Saline Saline -Foul Odor after Cleansing No -Primary Dressing Applied Fibracol Plus Fibracol Plus 4x4 4x4 -Other Dressing fibrocol -Primary Dressing Covered/Secured with Dry Gauze & Dry Gauze & Dry Gauze,Dry Roll Gauze, Roll Gauze, Gauze & Roll Secured with Secured with Gauze,Secured Tape Tape with Tape -Fibracol Plus 4x4 1 0 LLE -Compression Wrap Cole Wrap -Size of Tubigrip Used Size F right leg -Compression Wrap Cole Wrap -Tubular Bandage Double Layer -Size of Tubigrip Used Size E Size F -Size E ($) 2 BLE -Tubular Bandage Single Layer -Size of Tubigrip Used Size D -Size D ($) 2 Pain Scale: 0-10 Numeric Is Patient Pain Free? Yes Yes Yes WC - Visit Discharge Discharge Condition Stable Stable Stable Ambulatory Status Wheelchair Wheelchair Wheelchair Transportation Private Auto Private Auto Medication Reconcilliation completed & Yes Yes No provided to patient/care provider Clinical Summary of Care Provided Yes Yes Yes Assessment/Plan Assessment/Plan (1) Venous insufficiency (chronic) (peripheral): CODE(S): I87.2 - Venous insufficiency (chronic) (peripheral) (2) Other specified peripheral vascular diseases: CODE(S): I73.89 - Other specified peripheral vascular diseases (3) Cellulitis of right lower limb: CODE(S): L03.115 - Cellulitis of right lower limb (4) Non-pressure 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 foot with fat layer exposed: CODE(S): L97.512 - Non-pressure 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 foot with fat layer exposed (5) Non-pressure chronic ulcer of other part of left foot with fat layer exposed: CODE(S): L97.522 - Non-pressure chronic ulcer of other part of left foot with fat layer exposed (6) Tinea unguium: CODE(S): B35.1 - Tinea unguium (7) Pain in right toe(s): CODE(S): M79.674 - Pain in right toe(s) (8) Pain in left toe(s): CODE(S): M79.675 - Pain in left toe(s) PLAN: Plan Exam performed wounds to right foot healing well Right foot wound plantarly excisionally debrided down to including level subcutaneous tissue of all nonviable tissue using dermal curette. Patient tolerated procedure well. Topical anesthesia used. Hemostasis obtained with light compression. Pre and postdebridement measurements documented nursing notes. will start Fibracol at current with DSD and tubigrip patient is minimally ambulatory due to right lower extremity contracture Follow-up weekly
--- NOTE | 2024-10-26 14:00 | WC ---
PHOTO 10/25/24 RIGHT FOOT ULCER
== END 2024-10-26 23:59 | disposition home or self-care (01) ==
LOC: WC 10:45
PROVIDERS: PCP Family Medicine; Referring Provider Family Medicine; Visit Provider Podiatrist
DX: I87.2 Venous insufficiency (chronic) (peripheral) (principal); L97.512 Non-pressure 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 foot with fat layer exposed; L97.522 Non-pressure chronic ulcer of other part of left foot with fat layer exposed; L03.115 Cellulitis of right lower limb; R53.81 Other malaise; G62.9 Polyneuropathy, unspecified; B35.1 Tinea unguium; M79.675 Pain in left toe(s); M79.674 Pain in right toe(s); I73.89 Other specified peripheral vascular diseases
CPT/HCPCS: 11042; 11045

== ENCOUNTER 2024-11-22 10:45 | Outpatient (RCR) | payer MEDICARE, BC, SELFPAY ==
[2024-10-27 00:14] VITALS: BP 89/41; PULSE 58; RESP 18; TEMP 36.1
[2024-11-01 10:42] VITALS: BP 109/62; PULSE 54; RESP 18; TEMP 36.3
--- NOTE | 2024-11-01 11:17 | PN.PCM_ITS ---
History of Present Illness Date of Service: 11/01/24 Chief Complaint: Chronic, non-healing, right lower extremity ulcers History of Wound: This is an 84-year-old male with chronic ulcerations, dermatitis, and excoriations in his right lower extremity, and a history of chronic venous insufficiency. 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 Patient has non-healing wound to right foot and is here for follow up. Patient denies constitutional symptoms. Patient denies any other complaints. Objective Data Objective Data Vital Signs: Vital Signs Temp Pulse Resp BP O2 Del Method 97.3 F L 54 L 18 109/62 Room Air 11/01/24 10:42 11/01/24 10:42 11/01/24 10:42 11/01/24 10:42 11/01/24 10:42 Oxygen Delivery Method Room Air Physical Exam Narrative Vascular: Dorsalis pedis posterior tibial pulses palpable to bilateral lower extremity. Atrophic skin changes such as shiny taut appearance noted with absent digital hair growth. Patient does have +1 pitting edema to bilateral lower extremity with hemosiderin deposits noted. Neurologic: Light touch protective sensation diminished bilateral feet. Dermatologic: Healed medial right ankle and lateral wounds. recurrent dorsal foot wound right foot. right plantar foot wound. Increased maceration to periwound edges to dorsal foot and right plantar foot along with periwound erythema edema and warmth. Moderate serosanguineous drainage noted. No deep probing undermining. Wounds demonstrate clean granular bases postdebridement. 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 This appears to contribute to wound formation and poor ambulatory status patient. Patient has diffuse muscular weakness 4 out of 5 to bilateral lower extremity compartments. On the left lower extremity patient has an equinus contracture to the hindfoot. Const alert and oriented x3 Debridement Note Debridement Note Post-Debridement Measurements and Additional Note: Post-Debridement Measurements/Treatment SASHA - Nurse 1 - General Ulcer Assessment Start: 11/01/24 10:42 Freq: Status: Active Protocol: MARTA Activity Type Activity Date Activity User E-sign Co-sign Detail Recorded Client Recorded Date Recorded By Document 11/01/24 10:42 KW [id number] 11/01/24 10:49 11/01/24 10:42 WC - Today's Visit Information Type of service Follow-up Visit (Physician/ACCOUNTS RECEIVABLE PROCESSOR ) Arrival Mode Wheelchair Patient Identification Verified (Name & Yes ) Vital Signs Temperature (97.8 F-99.1 F) 97.3 F L Temperature Source Temporal Pulse Rate (60-100) 54 L Pulse Location Monitor Respiratory Rate (12-18) 18 Respiratory rate source Observation Oxygen Delivery Method Room Air Blood Pressure (90/60-120/80) 109/62 Blood Pressure Mean (mm Hg) 77 Source Monitor Position Sitting Blood Pressure Location Left Forearm History Since Last Visit- (Skip if this is Patient's initial visit) Have you changed medications since your No last visit? Any new allergies or adverse reactions No Had a fall/change in ADL's that may No increase risk of falls Signs or symptoms of abuse and/or No neglect since last visit Have you been in the hospital since your No last visit? Has dressing in place as prescribed Yes Has compression in place as prescribed Yes Has offloadiing in place as prescribed Yes Experienced any changes in pain level or No management Left Footwear Surgical Shoe with pressure relief insole Right Footwear Surgical Shoe with pressure relief insole Pain Scale: 0-10 Numeric Is Patient Pain Free? Yes - Nurse 1 - General Ulcer Measurement Start: 11/01/24 10:42 Freq: Status: Active Protocol: Activity Type Activity Date Activity User E-sign Co-sign Detail Recorded Client Recorded Date Recorded By Document 11/01/24 10:42 KW [id number] 11/01/24 10:49 11/01/24 10:42 Wound Center Nurse 1 15. R blum cluster -Current Size (cm) - Length 0.1 -Current Size (cm) - Width 0.1 -Current Size (cm) - Depth 0 -Total Square Cm 0.01 -Date of Last Picture (Recall this 11/01/24 field) -Exudate Amt None Present -Granulation Amt None Present (0 %) -Necrosis Amt None Present (0 %) -Texture (Yuliet-wound Skin Appearance) Assessed -Moisture (Yuliet-wound Skin Appearance) Assessed -Color (Yuliet-wound Skin Appearance) Assessed, Hemosiderin Staining -Temperature (Yuliet-wound Skin No Abnormality Appearance) (Pt Warm) -Tenderness on Palpation (Yuliet-wound No Skin Appearance) -Ulcer Cleansing Soap and Water -Foul Odor after Cleansing No -Wound Comment(s) healed 7-right plantar foot -Current Size (cm) - Length 4 -Current Size (cm) - Width 4.3 -Current Size (cm) - Depth 0.4 -Total Square Cm 17.2 -Date of Last Picture (Recall this 11/01/24 field) -Exudate Amt Medium -Exudate Type Serosanguineous -Wound Margin Distinct, Outline Attached -Granulation Amt Medium (34-66%) -Granulation Quality [place] -Necrosis Amt Large (67-100%) -Necrotic Tissue Type Adherent Slough -Texture (Yuliet-wound Skin Appearance) Assessed -Moisture (Yuliet-wound Skin Appearance) Assessed -Color (Yuliet-wound Skin Appearance) Assessed -Temperature (Yuliet-wound Skin No Abnormality Appearance) (Pt Warm) -Tenderness on Palpation (Yuliet-wound No Skin Appearance) -Ulcer Cleansing Soap and Water -Foul Odor after Cleansing No -Anesthetic Used 5% Lidocaine Gel WC - Nurse 2 - General Ulcer CM Notes Start: 11/01/24 10:42 Freq: Status: Active Protocol: Activity Type Activity Date Activity User E-sign Co-sign Detail Recorded Client Recorded Date Recorded By Document 11/01/24 10:54 JUAN RAMON [id number] 11/01/24 10:56 JUAN RAMON 11/01/24 10:54 Wound Center Nurse 2 15. R blum cluster -Correct Patient Yes -Correct Side, Site, Position No -Correct Procedure No -Procedure Performed No -Post Debridement (cm) - Length 0 -Post Debridement (cm) - Width 0 -Post Debridement (cm) - Depth 0 -Total Square (Post) (cm) 0 -Area of Debridement (cm) - Length 0 -Area of Debridement (cm) - Width 0 -Total Square (Area) (cm) 0 -Wound/Ulcer Outcome Healed- Epithelialized 7-right plantar foot -Time 10:55 -Correct Patient Yes -Correct Side, Site, Position Yes -Correct Procedure Yes -Procedure Performed Yes -Type of Procedure Debridement -Clinical Debridement Subcutaneous -Tissue Removed Subcutaneous -Post Debridement (cm) - Length 3.4 -Post Debridement (cm) - Width 4.4 -Post Debridement (cm) - Depth 0.2 -Total Square (Post) (cm) 14.96 -Area of Debridement (cm) - Length 3.4 -Area of Debridement (cm) - Width 4.4 -Total Square (Area) (cm) 14.96 -Tunneling No -Undermining/Tunneling No -Circular Undermining No -Wound/Ulcer Outcome Not Healed -Ulcer Cleansing Rinsed/ Irrigated with Saline -Foul Odor after Cleansing No -Bioengineered Tissue No -Bleeding Controlled with Pressure -Treatment Response Procedure Tolerated Well -Offloading Yes -Type of Offloading Surgical Shoe -Debridement - Subq, 1st 20sq cm Yes Pain Scale: 0-10 Numeric Is Patient Pain Free? Yes Assessment/Plan Assessment/Plan (1) Venous insufficiency (chronic) (peripheral): CODE(S): I87.2 - Venous insufficiency (chronic) (peripheral) (2) Other specified peripheral vascular diseases: CODE(S): I73.89 - Other specified peripheral vascular diseases (3) Cellulitis of right lower limb: CODE(S): L03.115 - Cellulitis of right lower limb (4) Non-pressure 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 foot with fat layer exposed: CODE(S): L97.512 - Non-pressure 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 foot with fat layer exposed (5) Non-pressure chronic ulcer of other part of left foot with fat layer exposed: CODE(S): L97.522 - Non-pressure chronic ulcer of other part of left foot with fat layer exposed (6) Tinea unguium: CODE(S): B35.1 - Tinea unguium (7) Pain in right toe(s): CODE(S): M79.674 - Pain in right toe(s) (8) Pain in left toe(s): CODE(S): M79.675 - Pain in left toe(s) PLAN: Plan Exam performed wounds to right foot healing well Right foot wound plantarly excisionally debrided down to including level subcutaneous tissue of all nonviable tissue using dermal curette. Patient tolerated procedure well. Topical anesthesia used. Hemostasis obtained with light compression. Pre and postdebridement measurements documented nursing notes. will start betadine wet to dry every 3 days at current with DSD and tubigrip patient is minimally ambulatory due to right lower extremity contracture Follow-up weekly
--- NOTE | 2024-11-03 10:02 | WC ---
PHOTO 11/01/24 STANLEY BAUTISTA
--- NOTE | 2024-11-03 10:06 | WC ---
PHOTO 11/01/24 RIGHT PLANTAR FOOT
[2024-11-08 11:17] VITALS: BP 98/50; PULSE 71; RESP 18; TEMP 36.2
--- NOTE | 2024-11-08 11:47 | PN.PCM_ITS ---
History of Present Illness Date of Service: 11/08/24 Chief Complaint: Chronic, non-healing, right lower extremity ulcers History of Wound: This is an 84-year-old male with chronic ulcerations, dermatitis, and excoriations in his right lower extremity, and a history of chronic venous insufficiency. 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 Patient has non-healing wound to right foot and is here for follow up. Patient denies constitutional symptoms. Patient denies any other complaints. Objective Data Objective Data Vital Signs: Vital Signs Temp Pulse Resp BP O2 Del Method 97.1 F L 71 18 98/50 L Room Air 11/08/24 11:17 11/08/24 11:17 11/08/24 11:17 11/08/24 11:17 11/08/24 11:17 Oxygen Delivery Method Room Air Physical Exam Narrative Vascular: Dorsalis pedis posterior tibial pulses palpable to bilateral lower extremity. Atrophic skin changes such as shiny taut appearance noted with absent digital hair growth. Patient does have +1 pitting edema to bilateral lower extremity with hemosiderin deposits noted. Neurologic: Light touch protective sensation diminished bilateral feet. Dermatologic: Healed medial right ankle and lateral wounds. recurrent dorsal foot wound right foot. right plantar foot wound. Increased maceration to periwound edges to dorsal foot and right plantar foot along with periwound erythema edema and warmth. Moderate serosanguineous drainage noted. No deep probing undermining. Wounds demonstrate clean granular bases postdebridement. 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 This appears to contribute to wound formation and poor ambulatory status patient. Patient has diffuse muscular weakness 4 out of 5 to bilateral lower extremity compartments. On the left lower extremity patient has an equinus contracture to the hindfoot. Const alert and oriented x3 Debridement Note Debridement Note Post-Debridement Measurements and Additional Note: Post-Debridement Measurements/Treatment SASHA - Nurse 1 - General Ulcer Assessment Start: 11/01/24 10:42 Freq: Status: Active Protocol: MARTA Activity Type Activity Date Activity User E-sign Co-sign Detail Recorded Client Recorded Date Recorded By Document 11/01/24 10:42 KW [id number] 11/01/24 10:49 KW Document 11/08/24 11:17 KW [id number] 11/08/24 11:32 KW 11/01/24 11/08/24 10:42 11:17 - Today's Visit Information Type of service Follow-up Visit Follow-up Visit (Physician/RETAIL AND PROMOTIONS COORDINATOR (Physician/RETAIL AND PROMOTIONS COORDINATOR ) ) Arrival Mode Wheelchair Wheelchair Transfer Assistance None,Other Transfer Assist (Other) walker Patient Identification Verified (Name & Yes Yes ) Vital Signs Temperature (97.8 F-99.1 F) 97.3 F L 97.1 F L Temperature Source Temporal Temporal Pulse Rate (60-100) 54 L 71 Pulse Location Monitor Monitor Respiratory Rate (12-18) 18 18 Respiratory rate source Observation Observation Oxygen Delivery Method Room Air Room Air Blood Pressure (90/60-120/80) 109/62 98/50 L Blood Pressure Mean (mm Hg) 77 66 Source Monitor Monitor Position Sitting Sitting Blood Pressure Location Left Forearm Right Arm History Since Last Visit- (Skip if this is Patient's initial visit) Have you changed medications since your No No last visit? Any new allergies or adverse reactions No No Had a fall/change in ADL's that may No No increase risk of falls Signs or symptoms of abuse and/or No No neglect since last visit Have you been in the hospital since your No No last visit? Has dressing in place as prescribed Yes Yes Has compression in place as prescribed Yes Yes Has offloadiing in place as prescribed Yes Yes Experienced any changes in pain level or No No management Left Footwear Surgical Shoe Surgical Shoe with pressure with pressure relief insole relief insole Right Footwear Surgical Shoe Surgical Shoe with pressure with pressure relief insole relief insole Pain Scale: 0-10 Numeric Is Patient Pain Free? Yes Yes - Nurse 1 - General Ulcer Measurement Start: 11/01/24 10:42 Freq: Status: Active Protocol: Activity Type Activity Date Activity User E-sign Co-sign Detail Recorded Client Recorded Date Recorded By Document 11/01/24 10:42 KW [id number] 11/01/24 10:49 KW Document 11/08/24 11:17 KW [id number] 11/08/24 11:32 KW 11/01/24 11/08/24 10:42 11:17 Wound Center Nurse 1 15. R blum cluster -Current Size (cm) - Length 0.1 -Current Size (cm) - Width 0.1 -Current Size (cm) - Depth 0 -Total Square Cm 0.01 -Date of Last Picture (Recall this 11/01/24 field) -Exudate Amt None Present -Granulation Amt None Present (0 %) -Necrosis Amt None Present (0 %) -Texture (Yuliet-wound Skin Appearance) Assessed -Moisture (Yuliet-wound Skin Appearance) Assessed -Color (Yuliet-wound Skin Appearance) Assessed, Hemosiderin Staining -Temperature (Yuliet-wound Skin No Abnormality Appearance) (Pt Warm) -Tenderness on Palpation (Yuliet-wound No Skin Appearance) -Ulcer Cleansing Soap and Water -Foul Odor after Cleansing No -Wound Comment(s) healed 7-right plantar foot -Current Size (cm) - Length 4 4 -Current Size (cm) - Width 4.3 5 -Current Size (cm) - Depth 0.4 0.2 -Total Square Cm 17.2 20 -Date of Last Picture (Recall this 11/01/24 11/08/24 field) -Exudate Amt Medium Large -Exudate Type Serosanguineous Serosanguineous -Wound Margin Distinct, Distinct, Outline Outline Attached Attached -Granulation Amt Medium (34-66%) Large (67-100%) -Granulation Quality [place] -Necrosis Amt Large (67-100%) Small (1-33%) -Necrotic Tissue Type Adherent Slough Adherent Slough -Texture (Yuliet-wound Skin Appearance) Assessed Assessed -Moisture (Yuliet-wound Skin Appearance) Assessed Assessed, Maceration -Color (Yuliet-wound Skin Appearance) Assessed Assessed -Temperature (Yuliet-wound Skin No Abnormality No Abnormality Appearance) (Pt Warm) (Pt Warm) -Tenderness on Palpation (Yuliet-wound No No Skin Appearance) -Ulcer Cleansing Soap and Water Soap and Water -Foul Odor after Cleansing No No -Anesthetic Used 5% Lidocaine 5% Lidocaine Gel Gel WC - Nurse 2 - General Ulcer CM Notes Start: 11/01/24 10:42 Freq: Status: Active Protocol: Activity Type Activity Date Activity User E-sign Co-sign Detail Recorded Client Recorded Date Recorded By Document 11/01/24 10:54 JUAN RAMON [id number] 11/01/24 10:56 Document 11/08/24 11:41 [id number] 11/08/24 11:43 JF 11/01/24 11/08/24 10:54 11:41 Wound Center Nurse 2 15. R blum cluster -Correct Patient Yes -Correct Side, Site, Position No -Correct Procedure No -Procedure Performed No -Post Debridement (cm) - Length 0 -Post Debridement (cm) - Width 0 -Post Debridement (cm) - Depth 0 -Total Square (Post) (cm) 0 -Area of Debridement (cm) - Length 0 -Area of Debridement (cm) - Width 0 -Total Square (Area) (cm) 0 -Wound/Ulcer Outcome Healed- Epithelialized 7-right plantar foot -Time 10:55 11:41 -Correct Patient Yes Yes -Correct Side, Site, Position Yes Yes -Correct Procedure Yes Yes -Procedure Performed Yes Yes -Type of Procedure Debridement Debridement -Clinical Debridement Subcutaneous Subcutaneous -Tissue Removed Subcutaneous Subcutaneous -Post Debridement (cm) - Length 3.4 3.4 -Post Debridement (cm) - Width 4.4 4.5 -Post Debridement (cm) - Depth 0.2 0.2 -Total Square (Post) (cm) 14.96 15.30 -Area of Debridement (cm) - Length 3.4 3.4 -Area of Debridement (cm) - Width 4.4 4.5 -Total Square (Area) (cm) 14.96 15.30 -Tunneling No No -Undermining/Tunneling No No -Circular Undermining No No -Wound/Ulcer Outcome Not Healed Not Healed -Ulcer Cleansing Rinsed/ Rinsed/ Irrigated with Irrigated with Saline Saline -Foul Odor after Cleansing No No -Bioengineered Tissue No No -Bleeding Controlled with Pressure Pressure -Treatment Response Procedure Procedure Tolerated Well Tolerated Well -Offloading Yes No -Type of Offloading Surgical Shoe -Debridement - Subq, 1st 20sq cm Yes Yes Pain Scale: 0-10 Numeric Is Patient Pain Free? Yes Yes WC - Nurse 3 - General Ulcer D/C NN Start: 11/01/24 10:42 Freq: Status: Active Protocol: Activity Type Activity Date Activity User E-sign Co-sign Detail Recorded Client Recorded Date Recorded By Document 11/01/24 11:14 RB [id number] 11/01/24 11:17 RB 11/01/24 11:14 Wound Care Center Nurse 3 7-right plantar foot -Ulcer Cleansing Rinsed/ Irrigated with Saline -Other Dressing betadine soaked gauze -Primary Dressing Covered/Secured with Dry Gauze & Roll Gauze, Secured with Tape BLE -Compression Wrap Cole Wrap -Tubular Bandage Double Layer -Size of Tubigrip Used Size F -Size F ($) 4 Treatment Response Procedure Tolerated Well Pain Scale: 0-10 Numeric Is Patient Pain Free? Yes WC - Visit Discharge Discharge Condition Stable Ambulatory Status Wheelchair Transportation Accord Medication Reconcilliation completed & No provided to patient/care provider Clinical Summary of Care Provided Yes Assessment/Plan Assessment/Plan (1) Venous insufficiency (chronic) (peripheral): CODE(S): I87.2 - Venous insufficiency (chronic) (peripheral) (2) Other specified peripheral vascular diseases: CODE(S): I73.89 - Other specified peripheral vascular diseases (3) Cellulitis of right lower limb: CODE(S): L03.115 - Cellulitis of right lower limb (4) Non-pressure 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 foot with fat layer exposed: CODE(S): L97.512 - Non-pressure 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 foot with fat layer exposed (5) Non-pressure chronic ulcer of other part of left foot with fat layer exposed: CODE(S): L97.522 - Non-pressure chronic ulcer of other part of left foot with fat layer exposed (6) Tinea unguium: CODE(S): B35.1 - Tinea unguium (7) Pain in right toe(s): CODE(S): M79.674 - Pain in right toe(s) (8) Pain in left toe(s): CODE(S): M79.675 - Pain in left toe(s) PLAN: Plan Exam performed wounds to right foot healing well Right foot wound plantarly excisionally debrided down to including level subcutaneous tissue of all nonviable tissue using dermal curette. Patient tolerated procedure well. Topical anesthesia used. Hemostasis obtained with light compression. Pre and postdebridement measurements documented nursing notes. will start betadine wet to dry every 3 days at current with DSD and tubigrip patient is minimally ambulatory due to right lower extremity contracture Follow-up weekly
--- NOTE | 2024-11-09 09:47 | WC ---
PHOTO 11/08/24 RIGHT PLANTAR FOOT
[2024-11-15 10:39] VITALS: BP 104/54; PULSE 58; RESP 18; TEMP 36.2
--- NOTE | 2024-11-15 11:03 | PN.PCM_ITS ---
History of Present Illness Date of Service: 11/15/24 Chief Complaint: Chronic, non-healing, right lower extremity ulcers History of Wound: This is an 84-year-old male with chronic ulcerations, dermatitis, and excoriations in his right lower extremity, and a history of chronic venous insufficiency. 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 Patient has non-healing wound to right foot and is here for follow up. Patient denies constitutional symptoms. Patient denies any other complaints. Objective Data Objective Data Vital Signs: Vital Signs Temp Pulse Resp BP O2 Del Method 97.1 F L 58 L 18 104/54 L Room Air 11/15/24 10:39 11/15/24 10:39 11/15/24 10:39 11/15/24 10:39 11/08/24 11:17 Oxygen Delivery Method Room Air Lab / Micro Data Micro: Microbiology 11/08/24 11:45 Ulcer, Decubitus - Right Foot Gram Stain - Final 11/08/24 11:45 Ulcer, Decubitus - Right Foot Wound Culture - Final Pseudomonas aeruginosa Proteus mirabilis Rothia kristinae Staphylococcus simulans 11/08/24 11:45 Ulcer, Decubitus - Right Foot Anaerobic Culture - Final No anaerobic bacteria isolated. Physical Exam Narrative Vascular: Dorsalis pedis posterior tibial pulses palpable to bilateral lower extremity. Atrophic skin changes such as shiny taut appearance noted with absent digital hair growth. Patient does have +1 pitting edema to bilateral lower extremity with hemosiderin deposits noted. Neurologic: Light touch protective sensation diminished bilateral feet. Dermatologic: Healed medial right ankle and lateral wounds. recurrent dorsal foot wound right foot. right plantar foot wound. Increased maceration to periwound edges to dorsal foot and right plantar foot along with periwound erythema edema and warmth. Moderate serosanguineous drainage noted. No deep probing undermining. Wounds demonstrate clean granular bases postdebridement. 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 This appears to contribute to wound formation and poor ambulatory status patient. Patient has diffuse muscular weakness 4 out of 5 to bilateral lower extremity compartments. On the left lower extremity patient has an equinus contracture to the hindfoot. Const alert and oriented x3 Debridement Note Debridement Note Post-Debridement Measurements and Additional Note: Post-Debridement Measurements/Treatment WC - Nurse 1 - General Ulcer Assessment Start: 11/01/24 10:42 Freq: Status: Active Protocol: WC.LOWEXT Activity Type Activity Date Activity User E-sign Co-sign Detail Recorded Client Recorded Date Recorded By Document 11/01/24 10:42 KW [id number] 11/01/24 10:49 KW Document 11/08/24 11:17 KW [id number] 11/08/24 11:32 KW Document 11/15/24 10:39 RB [id number] 11/15/24 10:48 RB 11/01/24 11/08/24 11/15/24 10:42 11:17 10:39 - Today's Visit Information Type of service Follow-up Visit Follow-up Visit Follow-up Visit (Physician/ELECTRIC VEHICLE ELECTRICIAN (Physician/ELECTRIC VEHICLE ELECTRICIAN (Physician/ELECTRIC VEHICLE ELECTRICIAN ) ) ) Arrival Mode Wheelchair Wheelchair Wheelchair Transfer Assistance None,Other Manual Transfer Assist (Other) walker Patient Identification Verified (Name & Yes Yes Yes ) Patient Requires Transmission-Based No Precautions Vital Signs Temperature (97.8 F-99.1 F) 97.3 F L 97.1 F L 97.1 F L Temperature Source Temporal Temporal Temporal Pulse Rate (60-100) 54 L 71 58 L Pulse Location Monitor Monitor Monitor Respiratory Rate (12-18) 18 18 18 Respiratory rate source Observation Observation Observation Oxygen Delivery Method Room Air Room Air Blood Pressure (90/60-120/80) 109/62 98/50 L 104/54 L Blood Pressure Mean (mm Hg) 77 66 70 Source Monitor Monitor Monitor Position Sitting Sitting Sitting Blood Pressure Location Left Forearm Right Arm Left Arm History Since Last Visit- (Skip if this is Patient's initial visit) Have you changed medications since your No No No last visit? Any new allergies or adverse reactions No No No Had a fall/change in ADL's that may No No No increase risk of falls Signs or symptoms of abuse and/or No No No neglect since last visit Have you been in the hospital since your No No No last visit? Has dressing in place as prescribed Yes Yes Yes Has compression in place as prescribed Yes Yes Yes Has offloadiing in place as prescribed Yes Yes N/A Experienced any changes in pain level or No No No management Left Footwear Surgical Shoe Surgical Shoe Surgical Shoe with pressure with pressure with pressure relief insole relief insole relief insole Right Footwear Surgical Shoe Surgical Shoe Surgical Shoe with pressure with pressure with pressure relief insole relief insole relief insole Pain Scale: 0-10 Numeric Is Patient Pain Free? Yes Yes Yes WC - Nurse 1 - General Ulcer Measurement Start: 11/01/24 10:42 Freq: Status: Active Protocol: Activity Type Activity Date Activity User E-sign Co-sign Detail Recorded Client Recorded Date Recorded By Document 11/01/24 10:42 KW [id number] 11/01/24 10:49 KW Document 11/08/24 11:17 KW [id number] 11/08/24 11:32 KW Document 11/15/24 10:39 RB [id number] 11/15/24 10:48 RB 11/01/24 11/08/24 11/15/24 10:42 11:17 10:39 Wound Center Nurse 1 15. R blum cluster -Current Size (cm) - Length 0.1 -Current Size (cm) - Width 0.1 -Current Size (cm) - Depth 0 -Total Square Cm 0.01 -Date of Last Picture (Recall this 11/01/24 field) -Exudate Amt None Present -Granulation Amt None Present (0 %) -Necrosis Amt None Present (0 %) -Texture (Yuliet-wound Skin Appearance) Assessed -Moisture (Yuliet-wound Skin Appearance) Assessed -Color (Yuliet-wound Skin Appearance) Assessed, Hemosiderin Staining -Temperature (Yuliet-wound Skin No Abnormality Appearance) (Pt Warm) -Tenderness on Palpation (Yuliet-wound No Skin Appearance) -Ulcer Cleansing Soap and Water -Foul Odor after Cleansing No -Wound Comment(s) healed 7-right plantar foot -Combined with other wound No -Current Size (cm) - Length 4 4 3.3 -Current Size (cm) - Width 4.3 5 4.5 -Current Size (cm) - Depth 0.4 0.2 0.2 -Total Square Cm 17.2 20 14.85 -Date of Last Picture (Recall this 11/01/24 11/08/24 field) -Photo Taken Yes -Tunneling No -Undermining/Tunneling No -Circular Undermining No -Exudate Amt Medium Large Medium -Exudate Type Serosanguineous Serosanguineous Serosanguineous -Wound Margin Distinct, Distinct, Distinct, Outline Outline Outline Attached Attached Attached -Granulation Amt Medium (34-66%) Large (67-100%) Large (67-100%) -Granulation Quality Temperance Temperance Temperance -Slough/Fibrin Yes -Necrosis Amt Large (67-100%) Small (1-33%) Small (1-33%) -Necrotic Tissue Type Adherent Slough Adherent Slough Adherent Slough -Structure Exposed N/A -Texture (Yuliet-wound Skin Appearance) Assessed Assessed Assessed -Moisture (Yuliet-wound Skin Appearance) Assessed Assessed, Dry/Scaly Maceration -Color (Yuliet-wound Skin Appearance) Assessed Assessed Assessed -Temperature (Yuliet-wound Skin No Abnormality No Abnormality No Abnormality Appearance) (Pt Warm) (Pt Warm) (Pt Warm) -Tenderness on Palpation (Yuliet-wound No No No Skin Appearance) -Ulcer Cleansing Soap and Water Soap and Water Wound Cleanser -Foul Odor after Cleansing No No No -Anesthetic Used 5% Lidocaine 5% Lidocaine 5% Lidocaine Gel Gel Gel Lower Limb Edema Present Yes Right Calf (cm) 33 Right Ankle (cm) 24 WC - Nurse 2 - General Ulcer CM Notes Start: 11/01/24 10:42 Freq: Status: Active Protocol: Activity Type Activity Date Activity User E-sign Co-sign Detail Recorded Client Recorded Date Recorded By Document 11/01/24 10:54 [id number] 11/01/24 10:56 Document 11/08/24 11:41 [id number] 11/08/24 11:43 Document 11/15/24 11:01 [id number] 11/15/24 11:03 11/01/24 11/08/24 11/15/24 10:54 11:41 11:01 Wound Center Nurse 2 15. R blum cluster -Correct Patient Yes -Correct Side, Site, Position No -Correct Procedure No -Procedure Performed No -Post Debridement (cm) - Length 0 -Post Debridement (cm) - Width 0 -Post Debridement (cm) - Depth 0 -Total Square (Post) (cm) 0 -Area of Debridement (cm) - Length 0 -Area of Debridement (cm) - Width 0 -Total Square (Area) (cm) 0 -Wound/Ulcer Outcome Healed- Epithelialized 7-right plantar foot -Time 10:55 11:41 11:02 -Correct Patient Yes Yes Yes -Correct Side, Site, Position Yes Yes Yes -Correct Procedure Yes Yes Yes -Procedure Performed Yes Yes Yes -Type of Procedure Debridement Debridement Debridement -Clinical Debridement Subcutaneous Subcutaneous Subcutaneous -Tissue Removed Subcutaneous Subcutaneous Subcutaneous -Post Debridement (cm) - Length 3.4 3.4 2.4 -Post Debridement (cm) - Width 4.4 4.5 3.4 -Post Debridement (cm) - Depth 0.2 0.2 0.1 -Total Square (Post) (cm) 14.96 15.30 8.16 -Area of Debridement (cm) - Length 3.4 3.4 2.4 -Area of Debridement (cm) - Width 4.4 4.5 3.4 -Total Square (Area) (cm) 14.96 15.30 8.16 -Tunneling No No No -Undermining/Tunneling No No No -Circular Undermining No No No -Wound/Ulcer Outcome Not Healed Not Healed Not Healed -Ulcer Cleansing Rinsed/ Rinsed/ Rinsed/ Irrigated with Irrigated with Irrigated with Saline Saline Saline -Foul Odor after Cleansing No No No -Bioengineered Tissue No No No -Bleeding Controlled with Pressure Pressure Pressure -Treatment Response Procedure Procedure Procedure Tolerated Well Tolerated Well Tolerated Well -Offloading Yes No No -Type of Offloading Surgical Shoe -Debridement - Subq, 1st 20sq cm Yes Yes Yes Pain Scale: 0-10 Numeric Is Patient Pain Free? Yes Yes Yes WC - Nurse 3 - General Ulcer D/C NN Start: 11/01/24 10:42 Freq: Status: Active Protocol: Activity Type Activity Date Activity User E-sign Co-sign Detail Recorded Client Recorded Date Recorded By Document 11/01/24 11:14 RB [id number] 11/01/24 11:17 RB Document 11/08/24 12:03 KW [id number] 11/08/24 12:04 KW 11/01/24 11/08/24 11:14 12:03 Wound Care Center Nurse 3 7-right plantar foot -Ulcer Cleansing Rinsed/ Irrigated with Saline -Other Dressing betadine soaked betadine gauze gauze -Primary Dressing Covered/Secured with Dry Gauze & Dry Gauze & Roll Gauze, Roll Gauze, Secured with Secured with Tape Tape LLE -Compression Wrap Cole Wrap -Tubular Bandage Double Layer -Size of Tubigrip Used Size F -Size F ($) 2 -Other one 6 inch right leg -Compression Wrap Cole Wrap -Tubular Bandage Double Layer -Size of Tubigrip Used Size F -Size F ($) 2 -Other 6in inch cole BLE -Compression Wrap Cole Wrap -Tubular Bandage Double Layer -Size of Tubigrip Used Size F -Size F ($) 4 Treatment Response Procedure Tolerated Well Pain Scale: 0-10 Numeric Is Patient Pain Free? Yes Yes WC - Visit Discharge Discharge Condition Stable Stable Ambulatory Status Wheelchair Wheelchair Transportation Accord Medication Reconcilliation completed & No No provided to patient/care provider Clinical Summary of Care Provided Yes Yes Assessment/Plan Assessment/Plan (1) Venous insufficiency (chronic) (peripheral): CODE(S): I87.2 - Venous insufficiency (chronic) (peripheral) (2) Other specified peripheral vascular diseases: CODE(S): I73.89 - Other specified peripheral vascular diseases (3) Cellulitis of right lower limb: CODE(S): L03.115 - Cellulitis of right lower limb (4) Non-pressure 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 foot with fat layer exposed: CODE(S): L97.512 - Non-pressure 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 foot with fat layer exposed (5) Non-pressure chronic ulcer of other part of left foot with fat layer exposed: CODE(S): L97.522 - Non-pressure chronic ulcer of other part of left foot with fat layer exposed (6) Tinea unguium: CODE(S): B35.1 - Tinea unguium (7) Pain in right toe(s): CODE(S): M79.674 - Pain in right toe(s) (8) Pain in left toe(s): CODE(S): M79.675 - Pain in left toe(s) PLAN: Plan Exam performed wounds to right foot healing well reviewed cultures + for pseudomonas aeruginosa Rx for ciprofloxacin provided Right foot wound plantarly excisionally debrided down to including level subcutaneous tissue of all nonviable tissue using dermal curette. Patient tolerated procedure well. Topical anesthesia used. Hemostasis obtained with light compression. Pre and postdebridement measurements documented nursing notes. will start betadine wet to dry every 3 days at current with DSD and tubigrip patient is minimally ambulatory due to right lower extremity contracture Follow-up weekly
--- NOTE | 2024-11-15 13:17 | WC ---
R FOOT 10/2024
[2024-11-22 10:38] VITALS: BP 110/51; PULSE 68; RESP 16; TEMP 36.7
--- NOTE | 2024-11-22 11:14 | PN.PCM_ITS ---
History of Present Illness Date of Service: 11/22/24 Chief Complaint: Chronic, non-healing, right lower extremity ulcers History of Wound: This is an 84-year-old male with chronic ulcerations, dermatitis, and excoriations in his right lower extremity, and a history of chronic venous insufficiency. 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 Patient has non-healing wound to right foot and is here for follow up. Patient denies constitutional symptoms. Patient denies any other complaints. Objective Data Objective Data Vital Signs: Vital Signs Temp Pulse Resp BP O2 Del Method 98.1 F 68 16 110/51 L Room Air 11/22/24 10:38 11/22/24 10:38 11/22/24 10:38 11/22/24 10:38 11/22/24 10:38 Oxygen Delivery Method Room Air Lab / Micro Data Micro: Microbiology 11/08/24 11:45 Ulcer, Decubitus - Right Foot Gram Stain - Final 11/08/24 11:45 Ulcer, Decubitus - Right Foot Wound Culture - Final Pseudomonas aeruginosa Proteus mirabilis Rothia kristinae Staphylococcus simulans 11/08/24 11:45 Ulcer, Decubitus - Right Foot Anaerobic Culture - Final No anaerobic bacteria isolated. Physical Exam Narrative Vascular: Dorsalis pedis posterior tibial pulses palpable to bilateral lower extremity. Atrophic skin changes such as shiny taut appearance noted with absent digital hair growth. Patient does have +1 pitting edema to bilateral lower extremity with hemosiderin deposits noted. Neurologic: Light touch protective sensation diminished bilateral feet. Dermatologic: Healed medial right ankle and lateral wounds. recurrent dorsal foot wound right foot. right plantar foot wound. Increased maceration to periwound edges to dorsal foot and right plantar foot along with periwound erythema edema and warmth. Moderate serosanguineous drainage noted. No deep probing undermining. Wounds demonstrate clean granular bases postdebridement. 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 This appears to contribute to wound formation and poor ambulatory status patient. Patient has diffuse muscular weakness 4 out of 5 to bilateral lower extremity compartments. On the left lower extremity patient has an equinus contracture to the hindfoot. Const alert and oriented x3 Debridement Note Debridement Note Post-Debridement Measurements and Additional Note: Post-Debridement Measurements/Treatment WC - Nurse 1 - General Ulcer Assessment Start: 11/01/24 10:42 Freq: Status: Active Protocol: SASHA.LOWEXT Activity Type Activity Date Activity User E-sign Co-sign Detail Recorded Client Recorded Date Recorded By Document 11/01/24 10:42 KW [id number] 11/01/24 10:49 KW Document 11/08/24 11:17 KW [id number] 11/08/24 11:32 KW Document 11/15/24 10:39 RB [id number] 11/15/24 10:48 RB Document 11/22/24 10:38 DS [id number] 11/22/24 10:40 DS 11/01/24 11/08/24 11/15/24 10:42 11:17 10:39 - Today's Visit Information Type of service Follow-up Visit Follow-up Visit Follow-up Visit (Physician/DOG OR ANIMAL SITTER (Physician/DOG OR ANIMAL SITTER (Physician/DOG OR ANIMAL SITTER ) ) ) Arrival Mode Wheelchair Wheelchair Wheelchair Transfer Assistance None,Other Manual Transfer Assist (Other) walker Patient Identification Verified (Name & Yes Yes Yes ) Patient Requires Transmission-Based No Precautions Safety Precautions Vital Signs Temperature (97.8 F-99.1 F) 97.3 F L 97.1 F L 97.1 F L Temperature Source Temporal Temporal Temporal Pulse Rate (60-100) 54 L 71 58 L Pulse Location Monitor Monitor Monitor Respiratory Rate (12-18) 18 18 18 Respiratory rate source Observation Observation Observation Oxygen Delivery Method Room Air Room Air Blood Pressure (90/60-120/80) 109/62 98/50 L 104/54 L Blood Pressure Mean (mm Hg) 77 66 70 Source Monitor Monitor Monitor Position Sitting Sitting Sitting Blood Pressure Location Left Forearm Right Arm Left Arm History Since Last Visit- (Skip if this is Patient's initial visit) Have you changed medications since your No No No last visit? Any new allergies or adverse reactions No No No Had a fall/change in ADL's that may No No No increase risk of falls Signs or symptoms of abuse and/or No No No neglect since last visit Have you been in the hospital since your No No No last visit? Has dressing in place as prescribed Yes Yes Yes Has compression in place as prescribed Yes Yes Yes Has offloadiing in place as prescribed Yes Yes N/A Experienced any changes in pain level or No No No management Left Footwear Surgical Shoe Surgical Shoe Surgical Shoe with pressure with pressure with pressure relief insole relief insole relief insole Right Footwear Surgical Shoe Surgical Shoe Surgical Shoe with pressure with pressure with pressure relief insole relief insole relief insole Pain Scale: 0-10 Numeric Is Patient Pain Free? Yes Yes Yes 11/22/24 10:38 - Today's Visit Information Type of service Follow-up Visit (Physician/DOG OR ANIMAL SITTER ) Arrival Mode Wheelchair Transfer Assistance Manual Transfer Assist (Other) walker Patient Identification Verified (Name & Yes ) Patient Requires Transmission-Based No Precautions Safety Precautions Fall Prevention Vital Signs Temperature (97.8 F-99.1 F) 98.1 F Temperature Source Temporal Pulse Rate (60-100) 68 Pulse Location Monitor Respiratory Rate (12-18) 16 Respiratory rate source Observation Oxygen Delivery Method Room Air Blood Pressure (90/60-120/80) 110/51 L Blood Pressure Mean (mm Hg) 70 Source Monitor Position Sitting Blood Pressure Location Right Arm History Since Last Visit- (Skip if this is Patient's initial visit) Have you changed medications since your No last visit? Any new allergies or adverse reactions No Had a fall/change in ADL's that may No increase risk of falls Signs or symptoms of abuse and/or No neglect since last visit Have you been in the hospital since your No last visit? Has dressing in place as prescribed Yes Has compression in place as prescribed Yes Has offloadiing in place as prescribed N/A Experienced any changes in pain level or No management Left Footwear Surgical Shoe with pressure relief insole Right Footwear Surgical Shoe with pressure relief insole Pain Scale: 0-10 Numeric Is Patient Pain Free? Yes - Nurse 1 - General Ulcer Measurement Start: 11/01/24 10:42 Freq: Status: Active Protocol: Activity Type Activity Date Activity User E-sign Co-sign Detail Recorded Client Recorded Date Recorded By Document 11/01/24 10:42 KW [id number] 11/01/24 10:49 KW Document 11/08/24 11:17 KW [id number] 11/08/24 11:32 KW Document 11/15/24 10:39 RB [id number] 11/15/24 10:48 RB Document 11/22/24 10:40 DS [id number] 11/22/24 10:54 DS 11/01/24 11/08/24 11/15/24 10:42 11:17 10:39 Wound Center Nurse 1 15. R blum cluster -Current Size (cm) - Length 0.1 -Current Size (cm) - Width 0.1 -Current Size (cm) - Depth 0 -Total Square Cm 0.01 -Date of Last Picture (Recall this 11/01/24 field) -Exudate Amt None Present -Granulation Amt None Present (0 %) -Necrosis Amt None Present (0 %) -Texture (Yuliet-wound Skin Appearance) Assessed -Moisture (Yuliet-wound Skin Appearance) Assessed -Color (Yuliet-wound Skin Appearance) Assessed, Hemosiderin Staining -Temperature (Yuliet-wound Skin No Abnormality Appearance) (Pt Warm) -Tenderness on Palpation (Yuliet-wound No Skin Appearance) -Ulcer Cleansing Soap and Water -Foul Odor after Cleansing No -Wound Comment(s) healed 7-right plantar foot -Combined with other wound No -Current Size (cm) - Length 4 4 3.3 -Current Size (cm) - Width 4.3 5 4.5 -Current Size (cm) - Depth 0.4 0.2 0.2 -Total Square Cm 17.2 20 14.85 -Date of Last Picture (Recall this 11/01/24 11/08/24 field) -Photo Taken Yes -Tunneling No -Undermining/Tunneling No -Circular Undermining No -Exudate Amt Medium Large Medium -Exudate Type Serosanguineous Serosanguineous Serosanguineous -Wound Margin Distinct, Distinct, Distinct, Outline Outline Outline Attached Attached Attached -Granulation Amt Medium (34-66%) Large (67-100%) Large (67-100%) -Granulation Quality [place] -Slough/Fibrin Yes -Necrosis Amt Large (67-100%) Small (1-33%) Small (1-33%) -Necrotic Tissue Type Adherent Slough Adherent Slough Adherent Slough -Structure Exposed N/A -Texture (Yuliet-wound Skin Appearance) Assessed Assessed Assessed -Moisture (Yuliet-wound Skin Appearance) Assessed Assessed, Dry/Scaly Maceration -Color (Yuliet-wound Skin Appearance) Assessed Assessed Assessed -Temperature (Yuliet-wound Skin No Abnormality No Abnormality No Abnormality Appearance) (Pt Warm) (Pt Warm) (Pt Warm) -Tenderness on Palpation (Yuliet-wound No No No Skin Appearance) -Ulcer Cleansing Soap and Water Soap and Water Wound Cleanser -Foul Odor after Cleansing No No No -Anesthetic Used 5% Lidocaine 5% Lidocaine 5% Lidocaine Gel Gel Gel Lower Limb Edema Present Yes Right Calf (cm) 33 Right Ankle (cm) 24 11/22/24 10:40 Wound Center Nurse 1 15. R blum cluster -Current Size (cm) - Length -Current Size (cm) - Width -Current Size (cm) - Depth -Total Square Cm -Date of Last Picture (Recall this field) -Exudate Amt -Granulation Amt -Necrosis Amt -Texture (Yuliet-wound Skin Appearance) -Moisture (Yuliet-wound Skin Appearance) -Color (Yuliet-wound Skin Appearance) -Temperature (Yuliet-wound Skin Appearance) -Tenderness on Palpation (Yuliet-wound Skin Appearance) -Ulcer Cleansing -Foul Odor after Cleansing -Wound Comment(s) 7-right plantar foot -Combined with other wound No -Current Size (cm) - Length 1.7 -Current Size (cm) - Width 1.2 -Current Size (cm) - Depth 0.1 -Total Square Cm 2.04 -Date of Last Picture (Recall this 11/22/24 field) -Photo Taken Yes -Tunneling No -Undermining/Tunneling No -Circular Undermining No -Exudate Amt -Exudate Type -Wound Margin Distinct, Outline Attached -Granulation Amt Small (1-33%) -Granulation Quality [place] -Slough/Fibrin -Necrosis Amt Large (67-100%) -Necrotic Tissue Type Adherent Slough -Structure Exposed -Texture (Yuliet-wound Skin Appearance) Assessed -Moisture (Yuliet-wound Skin Appearance) Assessed, Maceration -Color (Yuliet-wound Skin Appearance) Assessed -Temperature (Yuliet-wound Skin No Abnormality Appearance) (Pt Warm) -Tenderness on Palpation (Yuliet-wound No Skin Appearance) -Ulcer Cleansing Soap and Water -Foul Odor after Cleansing No -Anesthetic Used 5% Lidocaine Gel Lower Limb Edema Present Right Calf (cm) Right Ankle (cm) WC - Nurse 2 - General Ulcer CM Notes Start: 11/01/24 10:42 Freq: Status: Active Protocol: Activity Type Activity Date Activity User E-sign Co-sign Detail Recorded Client Recorded Date Recorded By Document 11/01/24 10:54 [id number] 11/01/24 10:56 Document 11/08/24 11:41 [id number] 11/08/24 11:43 Document 11/15/24 11:01 [id number] 11/15/24 11:03 Document 11/22/24 11:09 [id number] 11/22/24 11:10 11/01/24 11/08/24 11/15/24 10:54 11:41 11:01 Wound Center Nurse 2 15. R blum cluster -Correct Patient Yes -Correct Side, Site, Position No -Correct Procedure No -Procedure Performed No -Post Debridement (cm) - Length 0 -Post Debridement (cm) - Width 0 -Post Debridement (cm) - Depth 0 -Total Square (Post) (cm) 0 -Area of Debridement (cm) - Length 0 -Area of Debridement (cm) - Width 0 -Total Square (Area) (cm) 0 -Wound/Ulcer Outcome Healed- Epithelialized 7-right plantar foot -Time 10:55 11:41 11:02 -Correct Patient Yes Yes Yes -Correct Side, Site, Position Yes Yes Yes -Correct Procedure Yes Yes Yes -Procedure Performed Yes Yes Yes -Type of Procedure Debridement Debridement Debridement -Clinical Debridement Subcutaneous Subcutaneous Subcutaneous -Tissue Removed Subcutaneous Subcutaneous Subcutaneous -Post Debridement (cm) - Length 3.4 3.4 2.4 -Post Debridement (cm) - Width 4.4 4.5 3.4 -Post Debridement (cm) - Depth 0.2 0.2 0.1 -Total Square (Post) (cm) 14.96 15.30 8.16 -Area of Debridement (cm) - Length 3.4 3.4 2.4 -Area of Debridement (cm) - Width 4.4 4.5 3.4 -Total Square (Area) (cm) 14.96 15.30 8.16 -Tunneling No No No -Undermining/Tunneling No No No -Circular Undermining No No No -Wound/Ulcer Outcome Not Healed Not Healed Not Healed -Ulcer Cleansing Rinsed/ Rinsed/ Rinsed/ Irrigated with Irrigated with Irrigated with Saline Saline Saline -Foul Odor after Cleansing No No No -Bioengineered Tissue No No No -Bleeding Controlled with Pressure Pressure Pressure -Treatment Response Procedure Procedure Procedure Tolerated Well Tolerated Well Tolerated Well -Offloading Yes No No -Type of Offloading Surgical Shoe -Debridement - Subq, 1st 20sq cm Yes Yes Yes Pain Scale: 0-10 Numeric Is Patient Pain Free? Yes Yes Yes 11/22/24 11:09 Wound Center Nurse 2 15. R blum cluster -Correct Patient -Correct Side, Site, Position -Correct Procedure -Procedure Performed -Post Debridement (cm) - Length -Post Debridement (cm) - Width -Post Debridement (cm) - Depth -Total Square (Post) (cm) -Area of Debridement (cm) - Length -Area of Debridement (cm) - Width -Total Square (Area) (cm) -Wound/Ulcer Outcome 7-right plantar foot -Time 11:09 -Correct Patient Yes -Correct Side, Site, Position Yes -Correct Procedure Yes -Procedure Performed Yes -Type of Procedure Debridement -Clinical Debridement Subcutaneous -Tissue Removed Subcutaneous -Post Debridement (cm) - Length 3.0 -Post Debridement (cm) - Width 1.5 -Post Debridement (cm) - Depth 0.2 -Total Square (Post) (cm) 4.50 -Area of Debridement (cm) - Length 3.0 -Area of Debridement (cm) - Width 1.5 -Total Square (Area) (cm) 4.50 -Tunneling No -Undermining/Tunneling No -Circular Undermining No -Wound/Ulcer Outcome Not Healed -Ulcer Cleansing Rinsed/ Irrigated with Saline -Foul Odor after Cleansing No -Bioengineered Tissue No -Bleeding Controlled with Pressure -Treatment Response Procedure Tolerated Well -Offloading Yes -Type of Offloading Surgical Shoe -Debridement - Subq, 1st 20sq cm Yes Pain Scale: 0-10 Numeric Is Patient Pain Free? Yes - Nurse 3 - General Ulcer D/C NN Start: 11/01/24 10:42 Freq: Status: Active Protocol: Activity Type Activity Date Activity User E-sign Co-sign Detail Recorded Client Recorded Date Recorded By Document 11/01/24 11:14 RB [id number] 11/01/24 11:17 RB Document 11/08/24 12:03 KW [id number] 11/08/24 12:04 KW Document 11/15/24 11:29 RB [id number] 11/15/24 11:29 RB Document 11/22/24 11:10 JF [id number] 11/22/24 11:10 11/01/24 11/08/24 11/15/24 11:14 12:03 11:29 Wound Care Center Nurse 3 7-right plantar foot -Ulcer Cleansing Rinsed/ Irrigated with Saline -Foul Odor after Cleansing -Other Dressing betadine soaked betadine gauze betadine gauze gauze -Primary Dressing Covered/Secured with Dry Gauze & Dry Gauze & Dry Gauze & Roll Gauze, Roll Gauze, Roll Gauze, Secured with Secured with Secured with Tape Tape Tape LLE -Compression Wrap Cole Wrap -Tubular Bandage Double Layer -Size of Tubigrip Used Size F -Size F ($) 2 -Other one 6 inch right leg -Compression Wrap Cole Wrap -Tubular Bandage Double Layer -Size of Tubigrip Used Size F -Size F ($) 2 -Other 6in inch cole BLE -Compression Wrap Cole Wrap Cole Wrap -Tubular Bandage Double Layer Double Layer -Size of Tubigrip Used Size F Size D -Size D ($) 4 -Size F ($) 4 Treatment Response Procedure Procedure Tolerated Well Tolerated Well Pain Scale: 0-10 Numeric Is Patient Pain Free? Yes Yes Yes WC - Visit Discharge Discharge Condition Stable Stable Stable Ambulatory Status Wheelchair Wheelchair Wheelchair Transportation [facility] Medication Reconcilliation completed & No No No provided to patient/care provider Clinical Summary of Care Provided Yes Yes Yes 11/22/24 11:10 Wound Care Center Nurse 3 7-right plantar foot -Ulcer Cleansing Rinsed/ Irrigated with Saline -Foul Odor after Cleansing No -Other Dressing betadine -Primary Dressing Covered/Secured with Dry Gauze & Roll Gauze, Secured with Tape LLE -Compression Wrap -Tubular Bandage -Size of Tubigrip Used -Size F ($) -Other right leg -Compression Wrap Cole Wrap -Tubular Bandage -Size of Tubigrip Used -Size F ($) -Other BLE -Compression Wrap -Tubular Bandage -Size of Tubigrip Used -Size D ($) -Size F ($) Treatment Response Pain Scale: 0-10 Numeric Is Patient Pain Free? Yes WC - Visit Discharge Discharge Condition Stable Ambulatory Status Wheelchair Transportation [facility] Medication Reconcilliation completed & Yes provided to patient/care provider Clinical Summary of Care Provided Yes Assessment/Plan Assessment/Plan (1) Venous insufficiency (chronic) (peripheral): CODE(S): I87.2 - Venous insufficiency (chronic) (peripheral) (2) Other specified peripheral vascular diseases: CODE(S): I73.89 - Other specified peripheral vascular diseases (3) Cellulitis of right lower limb: CODE(S): L03.115 - Cellulitis of right lower limb (4) Non-pressure 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 foot with fat layer exposed: CODE(S): L97.512 - Non-pressure 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 foot with fat layer exposed (5) Non-pressure chronic ulcer of other part of left foot with fat layer exposed: CODE(S): L97.522 - Non-pressure chronic ulcer of other part of left foot with fat layer exposed (6) Tinea unguium: CODE(S): B35.1 - Tinea unguium (7) Pain in right toe(s): CODE(S): M79.674 - Pain in right toe(s) (8) Pain in left toe(s): CODE(S): M79.675 - Pain in left toe(s) PLAN: Plan Exam performed wounds to right foot healing well complete 10 day course of ciprofloxacin that was provided Right foot wound plantarly excisionally debrided down to including level subcutaneous tissue of all nonviable tissue using dermal curette. Patient tolerated procedure well. Topical anesthesia used. Hemostasis obtained with light compression. Pre and postdebridement measurements documented nursing notes. will start betadine wet to dry every 3 days at current with DSD and tubigrip patient is minimally ambulatory due to right lower extremity contracture Follow-up weekly
--- NOTE | 2024-11-23 13:30 | WC ---
PHOTO 11/22/24 RIGHT FOOT
== END 2024-11-26 23:59 | disposition home or self-care (01) ==
LOC: WC 10:45
PROVIDERS: PCP Family Medicine; Referring Provider Family Medicine; Visit Provider Podiatrist
DX: L03.115 Cellulitis of right lower limb (principal); L97.512 Non-pressure 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 foot with fat layer exposed; L97.522 Non-pressure chronic ulcer of other part of left foot with fat layer exposed; I73.9 Peripheral vascular disease, unspecified; M79.675 Pain in left toe(s); R53.81 Other malaise; I87.2 Venous insufficiency (chronic) (peripheral); B35.1 Tinea unguium; G62.9 Polyneuropathy, unspecified
CPT/HCPCS: 11042; 87070; 87075; 87077; 87184; 87186; 87205

== ENCOUNTER 2024-12-20 10:45 | Outpatient (RCR) | payer MEDICARE, BC, SELFPAY ==
[2024-11-27 00:30] VITALS: BP 110/51; PULSE 68; RESP 16; TEMP 36.7
[2024-11-29 10:45] VITALS: BP 97/48; PULSE 68; RESP 16; TEMP 35.9
--- NOTE | 2024-11-29 11:28 | PN.PCM_ITS ---
History of Present Illness Date of Service: 11/22/24 Chief Complaint: Chronic, non-healing, right lower extremity ulcers History of Wound: This is an 84-year-old male with chronic ulcerations, dermatitis, and excoriations in his right lower extremity, and a history of chronic venous insufficiency. 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 Patient has non-healing wound to right foot and is here for follow up. Patient denies constitutional symptoms. Patient denies any other complaints. Objective Data Objective Data Vital Signs: Vital Signs Temp Pulse Resp BP O2 Del Method 96.6 F L 68 16 97/48 L Room Air 11/29/24 10:45 11/29/24 10:45 11/29/24 10:45 11/29/24 10:45 11/29/24 10:45 Oxygen Delivery Method Room Air Lab / Micro Data Micro: Microbiology 11/08/24 11:45 Ulcer, Decubitus - Right Foot Gram Stain - Final 11/08/24 11:45 Ulcer, Decubitus - Right Foot Wound Culture - Final Pseudomonas aeruginosa Proteus mirabilis Rothia kristinae Staphylococcus simulans 11/08/24 11:45 Ulcer, Decubitus - Right Foot Anaerobic Culture - Final No anaerobic bacteria isolated. Physical Exam Narrative Vascular: Dorsalis pedis posterior tibial pulses palpable to bilateral lower extremity. Atrophic skin changes such as shiny taut appearance noted with absent digital hair growth. Patient does have +1 pitting edema to bilateral lower extremity with hemosiderin deposits noted. Neurologic: Light touch protective sensation diminished bilateral feet. Dermatologic: Healed medial right ankle and lateral wounds. healed dorsal foot wound, right foot. right plantar foot wound. Increased maceration to periwound edges to dorsal foot and right plantar foot along with periwound erythema, edema and warmth. Moderate serosanguineous drainage noted. No deep probing undermining. Wounds demonstrate clean granular bases postdebridement. new onset full thickness ulceration to left medial ankle, no deep probing, undermining or acute signs of infection. 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 This appears to contribute to wound formation and poor ambulatory status patient. Patient has diffuse muscular weakness 4 out of 5 to bilateral lower extremity compartments. On the left lower extremity patient has an equinus contracture to the hindfoot. Const alert and oriented x3 Debridement Note Debridement Note Post-Debridement Measurements and Additional Note: Post-Debridement Measurements/Treatment - Nurse 1 - General Ulcer Assessment Start: 11/29/24 10:44 Freq: Status: Active Protocol: [id number] Activity Type Activity Date Activity User E-sign Co-sign Detail Recorded Client Recorded Date Recorded By Document 11/29/24 10:45 KW [id number] 11/29/24 11:12 11/29/24 10:45 WC - Today's Visit Information Type of service Follow-up Visit (Physician/COMMUNITY SERVICES COORDINATOR ) Arrival Mode Wheelchair Patient Identification Verified (Name & Yes ) Vital Signs Temperature (97.8 F-99.1 F) 96.6 F L Temperature Source Temporal Pulse Rate (60-100) 68 Pulse Location Monitor Respiratory Rate (12-18) 16 Respiratory rate source Monitor Oxygen Delivery Method Room Air Blood Pressure (90/60-120/80) 97/48 L Blood Pressure Mean (mm Hg) 64 Source Monitor Position Sitting Blood Pressure Location Right Arm History Since Last Visit- (Skip if this is Patient's initial visit) Have you changed medications since your No last visit? Any new allergies or adverse reactions No Had a fall/change in ADL's that may No increase risk of falls Signs or symptoms of abuse and/or No neglect since last visit Have you been in the hospital since your No last visit? Has dressing in place as prescribed Yes Has compression in place as prescribed Yes Has offloadiing in place as prescribed Yes Experienced any changes in pain level or No management Left Footwear Surgical Shoe with pressure relief insole Right Footwear Surgical Shoe with pressure relief insole Pain Scale: 0-10 Numeric Is Patient Pain Free? Yes - Nurse 1 - General Ulcer Measurement Start: 11/29/24 10:44 Freq: Status: Active Protocol: Activity Type Activity Date Activity User E-sign Co-sign Detail Recorded Client Recorded Date Recorded By Document 11/29/24 10:45 KW [id number] 11/29/24 11:12 11/29/24 10:45 Wound Center Nurse 1 #16 LT MED ANKLE -Current Size (cm) - Length 3 -Current Size (cm) - Width 1 -Current Size (cm) - Depth 0.2 -Total Square Cm 3 -Date of Last Picture (Recall this 11/29/24 field) -Exudate Amt Medium -Exudate Type Serosanguineous -Wound Margin Distinct, Outline Attached -Granulation Amt Small (1-33%) -Granulation Quality [place] -Necrosis Amt Large (67-100%) -Necrotic Tissue Type Adherent Slough -Texture (Yuliet-wound Skin Appearance) Assessed,Callus -Moisture (Yuliet-wound Skin Appearance) Assessed,Dry/ Scaly -Color (Yuliet-wound Skin Appearance) Assessed -Temperature (Yuliet-wound Skin No Abnormality Appearance) (Pt Warm) -Tenderness on Palpation (Yuliet-wound No Skin Appearance) -Ulcer Cleansing Soap and Water -Foul Odor after Cleansing No -Anesthetic Used 5% Lidocaine Gel 7-right plantar foot -Current Size (cm) - Length 3 -Current Size (cm) - Width 2 -Current Size (cm) - Depth 0.1 -Total Square Cm 6 -Exudate Amt Large -Exudate Type Serosanguineous -Wound Margin Thickened -Granulation Amt Large (67-100%) -Granulation Quality Pale,Gate -Texture (Yuliet-wound Skin Appearance) Assessed,Callus -Moisture (Yuliet-wound Skin Appearance) Assessed, Maceration -Color (Yuliet-wound Skin Appearance) Assessed -Temperature (Yuliet-wound Skin No Abnormality Appearance) (Pt Warm) -Tenderness on Palpation (Yuliet-wound No Skin Appearance) -Ulcer Cleansing Soap and Water -Foul Odor after Cleansing No -Anesthetic Used 5% Lidocaine Gel Right Calf (cm) 29.7 Right Ankle (cm) 22 Left Calf (cm) 38 Left Ankle (cm) 22 WC - Nurse 2 - General Ulcer CM Notes Start: 11/29/24 10:44 Freq: Status: Active Protocol: Activity Type Activity Date Activity User E-sign Co-sign Detail Recorded Client Recorded Date Recorded By Document 11/29/24 11:21 JUAN RAMON [id number] 11/29/24 11:23 JUAN RAMON 11/29/24 11:21 Wound Center Nurse 2 #16 LT MED ANKLE -Time 11:21 -Correct Patient Yes -Correct Side, Site, Position Yes -Correct Procedure Yes -Procedure Performed Yes -Type of Procedure Debridement -Clinical Debridement Subcutaneous -Tissue Removed Subcutaneous -Post Debridement (cm) - Length 0.5 -Post Debridement (cm) - Width 2.1 -Post Debridement (cm) - Depth 0.2 -Total Square (Post) (cm) 1.05 -Area of Debridement (cm) - Length 0.5 -Area of Debridement (cm) - Width 2.1 -Total Square (Area) (cm) 1.05 -Tunneling No -Undermining/Tunneling No -Circular Undermining No -Wound/Ulcer Outcome Not Healed -Ulcer Cleansing Rinsed/ Irrigated with Saline -Foul Odor after Cleansing No -Bioengineered Tissue No -Bleeding Controlled with Pressure -Treatment Response Procedure Tolerated Well -Offloading No -Debridement - Subq, 1st 20sq cm No 7-right plantar foot -Time 11:22 -Correct Patient Yes -Correct Side, Site, Position Yes -Correct Procedure Yes -Procedure Performed Yes -Type of Procedure Debridement -Clinical Debridement Subcutaneous -Tissue Removed Subcutaneous -Post Debridement (cm) - Length 1.5 -Post Debridement (cm) - Width 2.5 -Post Debridement (cm) - Depth 0.1 -Total Square (Post) (cm) 3.75 -Area of Debridement (cm) - Length 1.5 -Area of Debridement (cm) - Width 2.5 -Total Square (Area) (cm) 3.75 -Tunneling No -Undermining/Tunneling No -Circular Undermining No -Wound/Ulcer Outcome Not Healed -Ulcer Cleansing Rinsed/ Irrigated with Saline -Foul Odor after Cleansing No -Bioengineered Tissue No -Bleeding Controlled with Pressure -Treatment Response Procedure Tolerated Well -Offloading No -Debridement - Subq, 1st 20sq cm Yes Pain Scale: 0-10 Numeric Is Patient Pain Free? Yes Assessment/Plan Assessment/Plan (1) Venous insufficiency (chronic) (peripheral): CODE(S): I87.2 - Venous insufficiency (chronic) (peripheral) (2) Other specified peripheral vascular diseases: CODE(S): I73.89 - Other specified peripheral vascular diseases (3) Cellulitis of right lower limb: CODE(S): L03.115 - Cellulitis of right lower limb (4) Non-pressure 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 foot with fat layer exposed: CODE(S): L97.512 - Non-pressure 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 foot with fat layer exposed (5) Non-pressure chronic ulcer of other part of left foot with fat layer exposed: CODE(S): L97.522 - Non-pressure chronic ulcer of other part of left foot with fat layer exposed (6) Tinea unguium: CODE(S): B35.1 - Tinea unguium (7) Pain in right toe(s): CODE(S): M79.674 - Pain in right toe(s) (8) Pain in left toe(s): CODE(S): M79.675 - Pain in left toe(s) PLAN: Plan Exam performed wounds to right foot healing well complete 10 day course of ciprofloxacin that was provided Right foot wound plantarly and left medial ankle excisionally debrided down to including level subcutaneous tissue of all nonviable tissue using dermal curette. Patient tolerated procedure well. Topical anesthesia used. Hemostasis obtained with light compression. Pre and postdebridement measureme nts documented nursing notes. today dressed with sepideh, DSD and bilateral 3m compression wraps. patient is minimally ambulatory due to right lower extremity contracture Follow-up weekly
--- NOTE | 2024-11-30 09:20 | WC ---
PHOTO 11/29/24 [place]
--- NOTE | 2024-11-30 09:22 | WC ---
PHOTO 11/29/24 [place]
--- NOTE | 2024-11-30 09:22 | WC ---
PHOTO 11/29/24 RIGHT FOOT PLANTAR
--- NOTE | 2024-11-30 09:23 | WC ---
PHOTO 11/29/24 LEFT MED ANKLE
[2024-12-06 10:36] VITALS: BP 107/59; PULSE 62; RESP 16; TEMP 36.4
--- NOTE | 2024-12-06 11:12 | PCM.WC.PN ---
History of Present Illness Date of Service: 12/06/24 Chief Complaint: Chronic, non-healing, right lower extremity ulcers History of Wound: This is an 84-year-old male with chronic ulcerations, dermatitis, and excoriations in his right lower extremity, and a history of chronic venous insufficiency. 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 Patient has non-healing wound to right foot and is here for follow up. Patient denies constitutional symptoms. Patient denies any other complaints. Objective Data Objective Data Vital Signs: Vital Signs Temp Pulse Resp BP O2 Del Method 97.5 F L 62 16 107/59 L Room Air 12/06/24 10:36 12/06/24 10:36 12/06/24 10:36 12/06/24 10:36 12/06/24 10:36 Oxygen Delivery Method Room Air Physical Exam Narrative Vascular: Dorsalis pedis posterior tibial pulses palpable to bilateral lower extremity. Atrophic skin changes such as shiny taut appearance noted with absent digital hair growth. Patient does have +1 pitting edema to bilateral lower extremity with hemosiderin deposits noted. Neurologic: Light touch protective sensation diminished bilateral feet. Dermatologic: Healed medial right ankle and lateral wounds. healed dorsal foot wound, right foot. right plantar foot wound. Increased maceration to periwound edges to dorsal foot and right plantar foot along with periwound erythema, edema and warmth. Moderate serosanguineous drainage noted. No deep probing undermining. Wounds demonstrate clean granular bases postdebridement. new onset full thickness ulceration to left medial ankle, no deep probing, undermining or acute signs of infection. 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 This appears to contribute to wound formation and poor ambulatory status patient. Patient has diffuse muscular weakness 4 out of 5 to bilateral lower extremity compartments. On the left lower extremity patient has an equinus contracture to the hindfoot. Const alert and oriented x3 Debridement Note Debridement Note Post-Debridement Measurements and Additional Note: Post-Debridement Measurements/Treatment WC - Nurse 1 - General Ulcer Assessment Start: 11/29/24 10:44 Freq: Status: Active Protocol: MARTA Activity Type Activity Date Activity User E-sign Co-sign Detail Recorded Client Recorded Date Recorded By Document 11/29/24 10:45 KW [id number] 11/29/24 11:12 KW Document 12/06/24 10:36 KW [id number] 12/06/24 10:45 KW 11/29/24 12/06/24 10:45 10:36 - Today's Visit Information Type of service Follow-up Visit Follow-up Visit (Physician/LANOLIN PLANT OPERATOR (Physician/LANOLIN PLANT OPERATOR ) ) Arrival Mode Wheelchair Wheelchair Patient Identification Verified (Name & Yes Yes ) Vital Signs Temperature (97.8 F-99.1 F) 96.6 F L 97.5 F L Temperature Source Temporal Temporal Pulse Rate (60-100) 68 62 Pulse Location Monitor Monitor Respiratory Rate (12-18) 16 16 Respiratory rate source Monitor Observation Oxygen Delivery Method Room Air Room Air Blood Pressure (90/60-120/80) 97/48 L 107/59 L Blood Pressure Mean (mm Hg) 64 75 Source Monitor Monitor Position Sitting Sitting Blood Pressure Location Right Arm Right Arm History Since Last Visit- (Skip if this is Patient's initial visit) Have you changed medications since your No No last visit? Any new allergies or adverse reactions No No Had a fall/change in ADL's that may No No increase risk of falls Signs or symptoms of abuse and/or No No neglect since last visit Have you been in the hospital since your No No last visit? Has dressing in place as prescribed Yes Yes Has compression in place as prescribed Yes Yes Has offloadiing in place as prescribed Yes Yes Experienced any changes in pain level or No No management Left Footwear Surgical Shoe Surgical Shoe with pressure with pressure relief insole relief insole Right Footwear Surgical Shoe Surgical Shoe with pressure with pressure relief insole relief insole Pain Scale: 0-10 Numeric Is Patient Pain Free? Yes Yes - Nurse 1 - General Ulcer Measurement Start: 11/29/24 10:44 Freq: Status: Active Protocol: Activity Type Activity Date Activity User E-sign Co-sign Detail Recorded Client Recorded Date Recorded By Document 11/29/24 10:45 KW [id number] 11/29/24 11:12 KW Document 12/06/24 10:36 KW [id number] 12/06/24 10:45 KW 11/29/24 12/06/24 10:45 10:36 Wound Center Nurse 1 #16 LT MED ANKLE -Current Size (cm) - Length 3 0.5 -Current Size (cm) - Width 1 1.8 -Current Size (cm) - Depth 0.2 0.1 -Total Square Cm 3 0.90 -Date of Last Picture (Recall this 11/29/24 field) -Exudate Amt Medium Medium -Exudate Type Serosanguineous Serosanguineous -Wound Margin Distinct, Distinct, Outline Outline Attached Attached -Granulation Amt Small (1-33%) Medium (34-66%) -Granulation Quality [place] -Necrosis Amt Large (67-100%) Medium (34-66%) -Necrotic Tissue Type Adherent Slough Adherent Slough -Texture (Yuliet-wound Skin Appearance) Assessed,Callus Assessed,Callus -Moisture (Yuliet-wound Skin Appearance) Assessed,Dry/ Assessed Scaly -Color (Yuliet-wound Skin Appearance) Assessed Assessed -Temperature (Yuliet-wound Skin No Abnormality No Abnormality Appearance) (Pt Warm) (Pt Warm) -Tenderness on Palpation (Yuliet-wound No No Skin Appearance) -Ulcer Cleansing Soap and Water Soap and Water -Foul Odor after Cleansing No No -Anesthetic Used 5% Lidocaine 4% Lidocaine Gel Solution 7-right plantar foot -Current Size (cm) - Length 3 2 -Current Size (cm) - Width 2 1.3 -Current Size (cm) - Depth 0.1 0.2 -Total Square Cm 6 2.6 -Exudate Amt Large Medium -Exudate Type Serosanguineous Serosanguineous -Wound Margin Thickened Distinct, Outline Attached -Granulation Amt Large (67-100%) Large (67-100%) -Granulation Quality Pale,[place] -Texture (Yuliet-wound Skin Appearance) Assessed,Callus Assessed -Moisture (Yuliet-wound Skin Appearance) Assessed, Assessed, Maceration Maceration -Color (Yuliet-wound Skin Appearance) Assessed Assessed -Temperature (Yuliet-wound Skin No Abnormality No Abnormality Appearance) (Pt Warm) (Pt Warm) -Tenderness on Palpation (Yuliet-wound No No Skin Appearance) -Ulcer Cleansing Soap and Water Soap and Water -Foul Odor after Cleansing No No -Anesthetic Used 5% Lidocaine 4% Lidocaine Gel Solution Right Calf (cm) 29.7 Right Ankle (cm) 22 Left Calf (cm) 38 Left Ankle (cm) 22 - Nurse 2 - General Ulcer CM Notes Start: 11/29/24 10:44 Freq: Status: Active Protocol: Activity Type Activity Date Activity User E-sign Co-sign Detail Recorded Client Recorded Date Recorded By Document 11/29/24 11:21 JUAN RAMON [id number] 11/29/24 11:23 JF Document 12/06/24 11:07 JUAN RAMON [id number] 12/06/24 11:10 JF 11/29/24 12/06/24 11:21 11:07 Wound Center Nurse 2 #16 LT MED ANKLE -Time 11:21 11:08 -Correct Patient Yes Yes -Correct Side, Site, Position Yes Yes -Correct Procedure Yes Yes -Procedure Performed Yes Yes -Type of Procedure Debridement Debridement -Clinical Debridement Subcutaneous Subcutaneous -Tissue Removed Subcutaneous Subcutaneous -Post Debridement (cm) - Length 0.5 0.7 -Post Debridement (cm) - Width 2.1 2.5 -Post Debridement (cm) - Depth 0.2 0.1 -Total Square (Post) (cm) 1.05 1.75 -Area of Debridement (cm) - Length 0.5 0.7 -Area of Debridement (cm) - Width 2.1 2.5 -Total Square (Area) (cm) 1.05 1.75 -Tunneling No No -Undermining/Tunneling No No -Circular Undermining No No -Wound/Ulcer Outcome Not Healed -Ulcer Cleansing Rinsed/ Rinsed/ Irrigated with Irrigated with Saline Saline -Foul Odor after Cleansing No No -Bioengineered Tissue No No -Bleeding Controlled with Pressure Pressure -Treatment Response Procedure Procedure Tolerated Well Tolerated Well -Offloading No No -Debridement - Subq, 1st 20sq cm No No 7-right plantar foot -Time 11:22 11:08 -Correct Patient Yes Yes -Correct Side, Site, Position Yes Yes -Correct Procedure Yes Yes -Procedure Performed Yes Yes -Type of Procedure Debridement Debridement -Clinical Debridement Subcutaneous Subcutaneous -Tissue Removed Subcutaneous Subcutaneous -Post Debridement (cm) - Length 1.5 1.0 -Post Debridement (cm) - Width 2.5 2 -Post Debridement (cm) - Depth 0.1 0.1 -Total Square (Post) (cm) 3.75 2.0 -Area of Debridement (cm) - Length 1.5 1 -Area of Debridement (cm) - Width 2.5 2 -Total Square (Area) (cm) 3.75 2 -Tunneling No No -Undermining/Tunneling No No -Circular Undermining No No -Wound/Ulcer Outcome Not Healed Not Healed -Ulcer Cleansing Rinsed/ Rinsed/ Irrigated with Irrigated with Saline Saline -Foul Odor after Cleansing No No -Bioengineered Tissue No No -Bleeding Controlled with Pressure Pressure -Treatment Response Procedure Procedure Tolerated Well Tolerated Well -Offloading No No -Debridement - Subq, 1st 20sq cm Yes Yes Pain Scale: 0-10 Numeric Is Patient Pain Free? Yes Yes - Nurse 3 - General Ulcer D/C NN Start: 11/29/24 10:44 Freq: Status: Active Protocol: Activity Type Activity Date Activity User E-sign Co-sign Detail Recorded Client Recorded Date Recorded By Document 11/29/24 11:38 JUAN RAMON [id number] 11/29/24 11:39 JUAN RAMON 11/29/24 11:38 Wound Care Center Nurse 3 #16 LT MED ANKLE -Ulcer Cleansing Rinsed/ Irrigated with Saline -Foul Odor after Cleansing No -Primary Dressing Applied Optilok 5x5 1/2 ,Promogran Sepideh Matter -Optilok 5x5 1/2 1 -Promogran Sepideh Matter 1 7-right plantar foot -Ulcer Cleansing Rinsed/ Irrigated with Saline -Foul Odor after Cleansing No -Primary Dressing Applied Optilok 5x5 1/2 ,Promogran Sepideh Matter -Optilok 5x5 1/2 1 -Promogran Sepideh Matter 0 BLE -Multi-Layered Wrap Application Multi-Layer Comp - Bilat ($ ) -Multi-Layer Compression Bilat (Qty 1 applied) Pain Scale: 0-10 Numeric Is Patient Pain Free? Yes - Visit Discharge Discharge Condition Stable Ambulatory Status Wheelchair Transportation TRANSPORT Facility Type [employer] Care Facility Assessment/Plan Assessment/Plan (1) Venous insufficiency (chronic) (peripheral): CODE(S): I87.2 - Venous insufficiency (chronic) (peripheral) (2) Other specified peripheral vascular diseases: CODE(S): I73.89 - Other specified peripheral vascular diseases (3) Cellulitis of right lower limb: CODE(S): L03.115 - Cellulitis of right lower limb (4) Non-pressure 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 foot with fat layer exposed: CODE(S): L97.512 - Non-pressure 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 foot with fat layer exposed (5) Non-pressure chronic ulcer of other part of left foot with fat layer exposed: CODE(S): L97.522 - Non-pressure chronic ulcer of other part of left foot with fat layer exposed (6) Tinea unguium: CODE(S): B35.1 - Tinea unguium (7) Pain in right toe(s): CODE(S): M79.674 - Pain in right toe(s) (8) Pain in left toe(s): CODE(S): M79.675 - Pain in left toe(s) PLAN: Plan Exam performed wounds to right foot healing well complete 10 day course of ciprofloxacin that was provided Right foot wound plantarly and left medial ankle excisionally debrided down to including level subcutaneous tissue of all nonviable tissue using dermal curette. Patient tolerated procedure well. Topical anesthesia used. Hemostasis obtained with light compression. Pre and postdebridement measurements documented nursing notes. today dressed with sepideh, DSD and bilateral 3m compression wraps. patient is minimally ambulatory due to right lower extremity contracture Rx for Ciprofloxacin 500mg BID provided today Follow-up weekly
[2024-12-13 10:55] VITALS: BP 98/54; PULSE 60; RESP 18; TEMP 36.3
--- NOTE | 2024-12-13 11:27 | PCM.WC.PN ---
History of Present Illness Date of Service: 12/13/24 Chief Complaint: Chronic, non-healing, right lower extremity ulcers History of Wound: This is an 84-year-old male with chronic ulcerations, dermatitis, and excoriations in his right lower extremity, and a history of chronic venous insufficiency. 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 Patient has non-healing wound to right foot and is here for follow up. Patient denies constitutional symptoms. Patient denies any other complaints. Objective Data Objective Data Vital Signs: Vital Signs Temp Pulse Resp BP O2 Del Method 97.4 F L 60 18 98/54 L Room Air 12/13/24 10:55 12/13/24 10:55 12/13/24 10:55 12/13/24 10:55 12/13/24 10:55 Oxygen Delivery Method Room Air Physical Exam Narrative Vascular: Dorsalis pedis posterior tibial pulses palpable to bilateral lower extremity. Atrophic skin changes such as shiny taut appearance noted with absent digital hair growth. Patient does have +1 pitting edema to bilateral lower extremity with hemosiderin deposits noted. Neurologic: Light touch protective sensation diminished bilateral feet. Dermatologic: Healed medial right ankle and lateral wounds. healed dorsal foot wound, right foot. right plantar foot wound. Increased maceration to periwound edges to dorsal foot and right plantar foot along with periwound erythema, edema and warmth. Moderate serosanguineous drainage noted. No deep probing undermining. Wounds demonstrate clean granular bases postdebridement. new onset full thickness ulceration to left medial ankle, no deep probing, undermining or acute signs of infection. 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 This appears to contribute to wound formation and poor ambulatory status patient. Patient has diffuse muscular weakness 4 out of 5 to bilateral lower extremity compartments. On the left lower extremity patient has an equinus contracture to the hindfoot. Const alert and oriented x3 Debridement Note Debridement Note Post-Debridement Measurements and Additional Note: Post-Debridement Measurements/Treatment WC - Nurse 1 - General Ulcer Assessment Start: 11/29/24 10:44 Freq: Status: Active Protocol: .LOWEXT Activity Type Activity Date Activity User E-sign Co-sign Detail Recorded Client Recorded Date Recorded By Document 11/29/24 10:45 KW [id number] 11/29/24 11:12 KW Document 12/06/24 10:36 KW [id number] 12/06/24 10:45 KW Document 12/13/24 10:55 KW [id number] 12/13/24 11:13 KW 11/29/24 12/06/24 12/13/24 10:45 10:36 10:55 - Today's Visit Information Type of service Follow-up Visit Follow-up Visit Follow-up Visit (Physician/FEATHER CURLING MACHINE OPERATOR (Physician/FEATHER CURLING MACHINE OPERATOR (Physician/FEATHER CURLING MACHINE OPERATOR ) ) ) Arrival Mode Wheelchair Wheelchair Wheelchair Patient Identification Verified (Name & Yes Yes Yes ) Vital Signs Temperature (97.8 F-99.1 F) 96.6 F L 97.5 F L 97.4 F L Temperature Source Temporal Temporal Temporal Pulse Rate (60-100) 68 62 60 Pulse Location Monitor Monitor Monitor Respiratory Rate (12-18) 16 16 18 Respiratory rate source Monitor Observation Observation Oxygen Delivery Method Room Air Room Air Room Air Blood Pressure (90/60-120/80) 97/48 L 107/59 L 98/54 L Blood Pressure Mean (mm Hg) 64 75 68 Source Monitor Monitor Monitor Position Sitting Sitting Sitting Blood Pressure Location Right Arm Right Arm Left Arm History Since Last Visit- (Skip if this is Patient's initial visit) Have you changed medications since your No No No last visit? Any new allergies or adverse reactions No No No Had a fall/change in ADL's that may No No No increase risk of falls Signs or symptoms of abuse and/or No No No neglect since last visit Have you been in the hospital since your No No No last visit? Has dressing in place as prescribed Yes Yes Yes Has compression in place as prescribed Yes Yes Yes Has offloadiing in place as prescribed Yes Yes Yes Experienced any changes in pain level or No No No management Left Footwear Surgical Shoe Surgical Shoe Surgical Shoe with pressure with pressure with pressure relief insole relief insole relief insole Right Footwear Surgical Shoe Surgical Shoe Surgical Shoe with pressure with pressure with pressure relief insole relief insole relief insole Pain Scale: 0-10 Numeric Is Patient Pain Free? Yes Yes Yes - Nurse 1 - General Ulcer Measurement Start: 11/29/24 10:44 Freq: Status: Active Protocol: Activity Type Activity Date Activity User E-sign Co-sign Detail Recorded Client Recorded Date Recorded By Document 11/29/24 10:45 KW [id number] 11/29/24 11:12 KW Document 12/06/24 10:36 KW [id number] 12/06/24 10:45 KW Document 12/13/24 10:55 KW [id number] 12/13/24 11:13 KW 11/29/24 12/06/24 12/13/24 10:45 10:36 10:55 Wound Center Nurse 1 #16 LT MED ANKLE -Current Size (cm) - Length 3 0.5 0.8 -Current Size (cm) - Width 1 1.8 2 -Current Size (cm) - Depth 0.2 0.1 0.1 -Total Square Cm 3 0.90 1.6 -Date of Last Picture (Recall this 11/29/24 12/13/24 field) -Epithelialization Small 1-33% -Exudate Amt Medium Medium Medium -Exudate Type Serosanguineous Serosanguineous Serosanguineous -Wound Margin Distinct, Distinct, Distinct, Outline Outline Outline Attached Attached Attached -Granulation Amt Small (1-33%) Medium (34-66%) Large (67-100%) -Granulation Quality Bouton Bouton Bouton -Necrosis Amt Large (67-100%) Medium (34-66%) -Necrotic Tissue Type Adherent Slough Adherent Slough -Texture (Yuliet-wound Skin Appearance) Assessed,Callus Assessed,Callus Assessed,Callus -Moisture (Yuliet-wound Skin Appearance) Assessed,Dry/ Assessed Assessed, Scaly Maceration -Color (Yuliet-wound Skin Appearance) Assessed Assessed Assessed -Temperature (Yuliet-wound Skin No Abnormality No Abnormality No Abnormality Appearance) (Pt Warm) (Pt Warm) (Pt Warm) -Tenderness on Palpation (Yuliet-wound No No No Skin Appearance) -Ulcer Cleansing Soap and Water Soap and Water Soap and Water -Foul Odor after Cleansing No No No -Anesthetic Used 5% Lidocaine 4% Lidocaine 5% Lidocaine Gel Solution Gel 7-right plantar foot -Current Size (cm) - Length 3 2 2 -Current Size (cm) - Width 2 1.3 2 -Current Size (cm) - Depth 0.1 0.2 0.1 -Total Square Cm 6 2.6 4 -Date of Last Picture (Recall this 12/13/24 field) -Exudate Amt Large Medium Large -Exudate Type Serosanguineous Serosanguineous Serosanguineous -Wound Margin Thickened Distinct, Thickened Outline Attached -Granulation Amt Large (67-100%) Large (67-100%) Large (67-100%) -Granulation Quality Pale,Bouton Bouton Pale,Bouton -Texture (Yuliet-wound Skin Appearance) Assessed,Callus Assessed Assessed -Moisture (Yuliet-wound Skin Appearance) Assessed, Assessed, Assessed, Maceration Maceration Maceration -Color (Yuleit-wound Skin Appearance) Assessed Assessed Assessed -Temperature (Yuliet-wound Skin No Abnormality No Abnormality No Abnormality Appearance) (Pt Warm) (Pt Warm) (Pt Warm) -Tenderness on Palpation (Yuliet-wound No No No Skin Appearance) -Ulcer Cleansing Soap and Water Soap and Water Soap and Water -Foul Odor after Cleansing No No No -Anesthetic Used 5% Lidocaine 4% Lidocaine 5% Lidocaine Gel Solution Gel -Wound Comment(s) large amount of maceration this visit Right Calf (cm) 29.7 Right Ankle (cm) 22 Left Calf (cm) 38 Left Ankle (cm) 22 - Nurse 2 - General Ulcer CM Notes Start: 11/29/24 10:44 Freq: Status: Active Protocol: Activity Type Activity Date Activity User E-sign Co-sign Detail Recorded Client Recorded Date Recorded By Document 11/29/24 11:21 [id number] 11/29/24 11:23 Document 12/06/24 11:07 [id number] 12/06/24 11:10 11/29/24 12/06/24 11:21 11:07 Wound Center Nurse 2 #16 LT MED ANKLE -Time 11:21 11:08 -Correct Patient Yes Yes -Correct Side, Site, Position Yes Yes -Correct Procedure Yes Yes -Procedure Performed Yes Yes -Type of Procedure Debridement Debridement -Clinical Debridement Subcutaneous Subcutaneous -Tissue Removed Subcutaneous Subcutaneous -Post Debridement (cm) - Length 0.5 0.7 -Post Debridement (cm) - Width 2.1 2.5 -Post Debridement (cm) - Depth 0.2 0.1 -Total Square (Post) (cm) 1.05 1.75 -Area of Debridement (cm) - Length 0.5 0.7 -Area of Debridement (cm) - Width 2.1 2.5 -Total Square (Area) (cm) 1.05 1.75 -Tunneling No No -Undermining/Tunneling No No -Circular Undermining No No -Wound/Ulcer Outcome Not Healed -Ulcer Cleansing Rinsed/ Rinsed/ Irrigated with Irrigated with Saline Saline -Foul Odor after Cleansing No No -Bioengineered Tissue No No -Bleeding Controlled with Pressure Pressure -Treatment Response Procedure Procedure Tolerated Well Tolerated Well -Offloading No No -Debridement - Subq, 1st 20sq cm No No 7-right plantar foot -Time 11:22 11:08 -Correct Patient Yes Yes -Correct Side, Site, Position Yes Yes -Correct Procedure Yes Yes -Procedure Performed Yes Yes -Type of Procedure Debridement Debridement -Clinical Debridement Subcutaneous Subcutaneous -Tissue Removed Subcutaneous Subcutaneous -Post Debridement (cm) - Length 1.5 1.0 -Post Debridement (cm) - Width 2.5 2 -Post Debridement (cm) - Depth 0.1 0.1 -Total Square (Post) (cm) 3.75 2.0 -Area of Debridement (cm) - Length 1.5 1 -Area of Debridement (cm) - Width 2.5 2 -Total Square (Area) (cm) 3.75 2 -Tunneling No No -Undermining/Tunneling No No -Circular Undermining No No -Wound/Ulcer Outcome Not Healed Not Healed -Ulcer Cleansing Rinsed/ Rinsed/ Irrigated with Irrigated with Saline Saline -Foul Odor after Cleansing No No -Bioengineered Tissue No No -Bleeding Controlled with Pressure Pressure -Treatment Response Procedure Procedure Tolerated Well Tolerated Well -Offloading No No -Debridement - Subq, 1st 20sq cm Yes Yes Pain Scale: 0-10 Numeric Is Patient Pain Free? Yes Yes - Nurse 3 - General Ulcer D/C NN Start: 11/29/24 10:44 Freq: Status: Active Protocol: Activity Type Activity Date Activity User E-sign Co-sign Detail Recorded Client Recorded Date Recorded By Document 11/29/24 11:38 JF [id number] 11/29/24 11:39 JF Document 12/06/24 11:26 KW [id number] 12/06/24 11:27 KW 11/29/24 12/06/24 11:38 11:26 Wound Care Center Nurse 3 #16 LT MED ANKLE -Ulcer Cleansing Rinsed/ Irrigated with Saline -Foul Odor after Cleansing No -Primary Dressing Applied Optilok 5x5 1/2 Optilok 6.5x10, ,Promogran Promogran Nasreen Matter Nasreen Matter -Primary Dressing Covered/Secured with Dry Gauze & Roll Gauze, Secured with Tape -Optilok 5x5 1/2 1 -Optilok 6.5x10 1 -Promogran Nasreen Matter 1 1 7-right plantar foot -Ulcer Cleansing Rinsed/ Irrigated with Saline -Foul Odor after Cleansing No -Primary Dressing Applied Optilok 5x5 1/2 Optilok 6.5x10 ,Promogran Nasreen Matter -Other Dressing NASREEN -Optilok 5x5 1/2 1 -Optilok 6.5x10 1 -Promogran Nasreen Matter 0 1 BLE -Multi-Layered Wrap Application Multi-Layer Multi-Layer Comp - Bilat ($ Comp - Bilat ($ ) ) -Multi-Layer Compression Bilat (Qty 1 1 applied) Pain Scale: 0-10 Numeric Is Patient Pain Free? Yes Yes WC - Visit Discharge Discharge Condition Stable Stable Ambulatory Status Wheelchair Wheelchair Transportation TRANSPORT Medication Reconcilliation completed & No provided to patient/care provider Clinical Summary of Care Provided Yes Facility Type [facility] Assessment/Plan Assessment/Plan (1) Venous insufficiency (chronic) (peripheral): CODE(S): I87.2 - Venous insufficiency (chronic) (peripheral) (2) Other specified peripheral vascular diseases: CODE(S): I73.89 - Other specified peripheral vascular diseases (3) Cellulitis of right lower limb: CODE(S): L03.115 - Cellulitis of right lower limb (4) Non-pressure 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 foot with fat layer exposed: CODE(S): L97.512 - Non-pressure 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 foot with fat layer exposed (5) Non-pressure chronic ulcer of other part of left foot with fat layer exposed: CODE(S): L97.522 - Non-pressure chronic ulcer of other part of left foot with fat layer exposed (6) Tinea unguium: CODE(S): B35.1 - Tinea unguium (7) Pain in right toe(s): CODE(S): M79.674 - Pain in right toe(s) (8) Pain in left toe(s): CODE(S): M79.675 - Pain in left toe(s) PLAN: Plan Exam performed wounds to right foot healing well complete 10 day course of ciprofloxacin that was provided Right foot wound plantarly and left medial ankle excisionally debrided down to including level subcutaneous tissue of all nonviable tissue using dermal curette. Patient tolerated procedure well. Topical anesthesia used. Hemostasis obtained with light compression. Pre and postdebridement measurements documented nursing notes. today dressed with nasreen, DSD and bilateral 3m compression wraps. patient is minimally ambulatory due to right lower extremity contracture continue Rx for Ciprofloxacin 500mg BID provided today Follow-up weekly
--- NOTE | 2024-12-14 08:43 | WC ---
PHOTO 12/13/24 RIGHT FOOT
--- NOTE | 2024-12-14 08:46 | WC ---
PHOTO 12/13/24 LEFT [facility] ANKLE
[2024-12-20 10:47] VITALS: RESP 18; TEMP 36.4
--- NOTE | 2024-12-20 11:16 | PN.PCM_ITS ---
History of Present Illness Date of Service: 12/20/24 Chief Complaint: Chronic, non-healing, right lower extremity ulcers History of Wound: This is an 84-year-old male with chronic ulcerations, dermatitis, and excoriations in his right lower extremity, and a history of chronic venous insufficiency. 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 Patient has non-healing wound to right foot and is here for follow up. Patient denies constitutional symptoms. Patient denies any other complaints. Objective Data Objective Data Vital Signs: Vital Signs Temp Pulse Resp BP O2 Del Method 97.5 F L 60 18 98/54 L Room Air 12/20/24 10:47 12/13/24 10:55 12/20/24 10:47 12/13/24 10:55 12/20/24 10:47 Oxygen Delivery Method Room Air Physical Exam Narrative Vascular: Dorsalis pedis posterior tibial pulses palpable to bilateral lower extremity. Atrophic skin changes such as shiny taut appearance noted with absent digital hair growth. Patient does have +1 pitting edema to bilateral lower extremity with hemosiderin deposits noted. Neurologic: Light touch protective sensation diminished bilateral feet. Dermatologic: Healed medial right ankle and lateral wounds. healed dorsal foot wound, right foot. right plantar foot wound. resolved maceration to periwound edges to dorsal foot and right plantar foot, resolved periwound erythema, edema. Moderate serosanguineous drainage noted. No deep probing undermining. Wounds demonstrate clean granular bases postdebridement. new onset full thickness ulceration to left medial ankle, no deep probing, undermining or acute signs of infection. 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 This appears to contribute to wound formation and poor ambulatory status patient. Patient has diffuse muscular weakness 4 out of 5 to bilateral lower extremity compartments. On the left lower extremity patient has an equinus contracture to the hindfoot. Const alert and oriented x3 Debridement Note Debridement Note Post-Debridement Measurements and Additional Note: Post-Debridement Measurements/Treatment WC - Nurse 1 - General Ulcer Assessment Start: 11/29/24 10:44 Freq: Status: Active Protocol: SASHA.VIKIT Activity Type Activity Date Activity User E-sign Co-sign Detail Recorded Client Recorded Date Recorded By Document 11/29/24 10:45 KW [id number] 11/29/24 11:12 KW Document 12/06/24 10:36 KW [id number] 12/06/24 10:45 KW Document 12/13/24 10:55 KW [id number] 12/13/24 11:13 KW Document 12/20/24 10:47 KW [id number] 12/20/24 11:05 KW 11/29/24 12/06/24 12/13/24 10:45 10:36 10:55 - Today's Visit Information Type of service Follow-up Visit Follow-up Visit Follow-up Visit (Physician/SUPERVISOR TELEVISION CHASSIS REPAIR (Physician/SUPERVISOR TELEVISION CHASSIS REPAIR (Physician/SUPERVISOR TELEVISION CHASSIS REPAIR ) ) ) Arrival Mode Wheelchair Wheelchair Wheelchair Transfer Assistance Transfer Assist (Other) Patient Identification Verified (Name & Yes Yes Yes ) Vital Signs Temperature (97.8 F-99.1 F) 96.6 F L 97.5 F L 97.4 F L Temperature Source Temporal Temporal Temporal Pulse Rate (60-100) 68 62 60 Pulse Location Monitor Monitor Monitor Respiratory Rate (12-18) 16 16 18 Respiratory rate source Monitor Observation Observation Oxygen Delivery Method Room Air Room Air Room Air Blood Pressure (90/60-120/80) 97/48 L 107/59 L 98/54 L Blood Pressure Mean (mm Hg) 64 75 68 Source Monitor Monitor Monitor Position Sitting Sitting Sitting Blood Pressure Location Right Arm Right Arm Left Arm History Since Last Visit- (Skip if this is Patient's initial visit) Have you changed medications since your No No No last visit? Any new allergies or adverse reactions No No No Had a fall/change in ADL's that may No No No increase risk of falls Signs or symptoms of abuse and/or No No No neglect since last visit Have you been in the hospital since your No No No last visit? Has dressing in place as prescribed Yes Yes Yes Has compression in place as prescribed Yes Yes Yes Has offloadiing in place as prescribed Yes Yes Yes Experienced any changes in pain level or No No No management Left Footwear Surgical Shoe Surgical Shoe Surgical Shoe with pressure with pressure with pressure relief insole relief insole relief insole Right Footwear Surgical Shoe Surgical Shoe Surgical Shoe with pressure with pressure with pressure relief insole relief insole relief insole Pain Scale: 0-10 Numeric Is Patient Pain Free? Yes Yes Yes 12/20/24 10:47 WC - Today's Visit Information Type of service Follow-up Visit (Physician/SUPERVISOR TELEVISION CHASSIS REPAIR ) Arrival Mode Wheelchair Transfer Assistance Other Transfer Assist (Other) uses walker Patient Identification Verified (Name & Yes ) Vital Signs Temperature (97.8 F-99.1 F) 97.5 F L Temperature Source Temporal Pulse Rate (60-100) Pulse Location Monitor Respiratory Rate (12-18) 18 Respiratory rate source Observation Oxygen Delivery Method Room Air Blood Pressure (90/60-120/80) Blood Pressure Mean (mm Hg) Source Monitor Position Sitting Blood Pressure Location Right Arm History Since Last Visit- (Skip if this is Patient's initial visit) Have you changed medications since your No last visit? Any new allergies or adverse reactions No Had a fall/change in ADL's that may No increase risk of falls Signs or symptoms of abuse and/or No neglect since last visit Have you been in the hospital since your No last visit? Has dressing in place as prescribed Yes Has compression in place as prescribed Yes Has offloadiing in place as prescribed Yes Experienced any changes in pain level or No management Left Footwear Surgical Shoe with pressure relief insole Right Footwear Surgical Shoe with pressure relief insole Pain Scale: 0-10 Numeric Is Patient Pain Free? Yes - Nurse 1 - General Ulcer Measurement Start: 11/29/24 10:44 Freq: Status: Active Protocol: Activity Type Activity Date Activity User E-sign Co-sign Detail Recorded Client Recorded Date Recorded By Document 11/29/24 10:45 KW [id number] 11/29/24 11:12 KW Document 12/06/24 10:36 KW [id number] 12/06/24 10:45 KW Document 12/13/24 10:55 KW [id number] 12/13/24 11:13 KW Document 12/20/24 10:47 KW [id number] 12/20/24 11:05 KW 11/29/24 12/06/24 12/13/24 10:45 10:36 10:55 Wound Center Nurse 1 #16 LT MED ANKLE -Current Size (cm) - Length 3 0.5 0.8 -Current Size (cm) - Width 1 1.8 2 -Current Size (cm) - Depth 0.2 0.1 0.1 -Total Square Cm 3 0.90 1.6 -Date of Last Picture (Recall this 11/29/24 12/13/24 field) -Epithelialization Small 1-33% -Exudate Amt Medium Medium Medium -Exudate Type Serosanguineous Serosanguineous Serosanguineous -Wound Margin Distinct, Distinct, Distinct, Outline Outline Outline Attached Attached Attached -Granulation Amt Small (1-33%) Medium (34-66%) Large (67-100%) -Granulation Quality Emigrant Emigrant Emigrant -Necrosis Amt Large (67-100%) Medium (34-66%) -Necrotic Tissue Type Adherent Slough Adherent Slough -Texture (Yuliet-wound Skin Appearance) Assessed,Callus Assessed,Callus Assess ed,Callus -Moisture (Yuliet-wound Skin Appearance) Assessed,Dry/ Assessed Assessed, Scaly Maceration -Color (Yuliet-wound Skin Appearance) Assessed Assessed Assessed -Temperature (Yuliet-wound Skin No Abnormality No Abnormality No Abnormality Appearance) (Pt Warm) (Pt Warm) (Pt Warm) -Tenderness on Palpation (Yuliet-wound No No No Skin Appearance) -Ulcer Cleansing Soap and Water Soap and Water Soap and Water -Foul Odor after Cleansing No No No -Anesthetic Used 5% Lidocaine 4% Lidocaine 5% Lidocaine Gel Solution Gel 7-right plantar foot -Current Size (cm) - Length 3 2 2 -Current Size (cm) - Width 2 1.3 2 -Current Size (cm) - Depth 0.1 0.2 0.1 -Total Square Cm 6 2.6 4 -Date of Last Picture (Recall this 12/13/24 field) -Exudate Amt Large Medium Large -Exudate Type Serosanguineous Serosanguineous Serosanguineous -Wound Margin Thickened Distinct, Thickened Outline Attached -Granulation Amt Large (67-100%) Large (67-100%) Large (67-100%) -Granulation Quality Pale,Emigrant Emigrant Pale,Emigrant -Necrosis Amt -Necrotic Tissue Type -Texture (Yuliet-wound Skin Appearance) Assessed,Callus Assessed Assessed -Moisture (Yuliet-wound Skin Appearance) Assessed, Assessed, Assessed, Maceration Maceration Maceration -Color (Yuliet-wound Skin Appearance) Assessed Assessed Assessed -Temperature (Yuliet-wound Skin No Abnormality No Abnormality No Abnormality Appearance) (Pt Warm) (Pt Warm) (Pt Warm) -Tenderness on Palpation (Yuliet-wound No No No Skin Appearance) -Ulcer Cleansing Soap and Water Soap and Water Soap and Water -Foul Odor after Cleansing No No No -Anesthetic Used 5% Lidocaine 4% Lidocaine 5% Lidocaine Gel Solution Gel -Wound Comment(s) large amount of maceration this visit Right Calf (cm) 29.7 Right Ankle (cm) 22 Left Calf (cm) 38 Left Ankle (cm) 22 12/20/24 10:47 Wound Center Nurse 1 #16 LT MED ANKLE -Current Size (cm) - Length 0.1 -Current Size (cm) - Width 0.1 -Current Size (cm) - Depth 0.1 -Total Square Cm 0.01 -Date of Last Picture (Recall this 12/20/24 field) -Epithelialization -Exudate Amt None Present -Exudate Type -Wound Margin Indistinct, Non -Visible -Granulation Amt None Present (0 %) -Granulation Quality -Necrosis Amt Large (67-100%) -Necrotic Tissue Type Adherent Slough -Texture (Yuliet-wound Skin Appearance) Assessed -Moisture (Yuliet-wound Skin Appearance) Assessed,Dry/ Scaly -Color (Yuliet-wound Skin Appearance) Assessed -Temperature (Yuliet-wound Skin No Abnormality Appearance) (Pt Warm) -Tenderness on Palpation (Yuliet-wound No Skin Appearance) -Ulcer Cleansing Soap and Water -Foul Odor after Cleansing No -Anesthetic Used 5% Lidocaine Gel 7-right plantar foot -Current Size (cm) - Length 1.5 -Current Size (cm) - Width 1 -Current Size (cm) - Depth 0.3 -Total Square Cm 1.5 -Date of Last Picture (Recall this 12/20/24 field) -Exudate Amt Medium -Exudate Type Serosanguineous -Wound Margin Thickened -Granulation Amt Medium (34-66%) -Granulation Quality Pale,Emigrant -Necrosis Amt Medium (34-66%) -Necrotic Tissue Type Adherent Slough -Texture (Yuliet-wound Skin Appearance) Assessed -Moisture (Yuliet-wound Skin Appearance) Assessed, Maceration -Color (Yuliet-wound Skin Appearance) Assessed -Temperature (Yuliet-wound Skin No Abnormality Appearance) (Pt Warm) -Tenderness on Palpation (Yuliet-wound No Skin Appearance) -Ulcer Cleansing Soap and Water -Foul Odor after Cleansing No -Anesthetic Used 5% Lidocaine Gel -Wound Comment(s) Right Calf (cm) Right Ankle (cm) Left Calf (cm) Left Ankle (cm) WC - Nurse 2 - General Ulcer CM Notes Start: 11/29/24 10:44 Freq: Status: Active Protocol: Activity Type Activity Date Activity User E-sign Co-sign Detail Recorded Client Recorded Date Recorded By Document 11/29/24 11:21 [id number] 11/29/24 11:23 Document 12/06/24 11:07 [id number] 12/06/24 11:10 Document 12/13/24 11:26 [id number] 12/13/24 11:28 11/29/24 12/06/24 12/13/24 11:21 11:07 11:26 Wound Center Nurse 2 #16 LT MED ANKLE -Time 11:21 11:08 11:27 -Correct Patient Yes Yes Yes -Correct Side, Site, Position Yes Yes Yes -Correct Procedure Yes Yes Yes -Procedure Performed Yes Yes Yes -Type of Procedure Debridement Debridement Debridement -Clinical Debridement Subcutaneous Subcutaneous Subcutaneous -Tissue Removed Subcutaneous Subcutaneous Subcutaneous -Post Debridement (cm) - Length 0.5 0.7 0.5 -Post Debridement (cm) - Width 2.1 2.5 1.5 -Post Debridement (cm) - Depth 0.2 0.1 0.1 -Total Square (Post) (cm) 1.05 1.75 0.75 -Area of Debridement (cm) - Length 0.5 0.7 0.5 -Area of Debridement (cm) - Width 2.1 2.5 1.5 -Total Square (Area) (cm) 1.05 1.75 0.75 -Tunneling No No No -Undermining/Tunneling No No No -Circular Undermining No No No -Wound/Ulcer Outcome Not Healed Not Healed -Ulcer Cleansing Rinsed/ Rinsed/ Rinsed/ Irrigated with Irrigated with Irrigated with Saline Saline Saline -Foul Odor after Cleansing No No No -Bioengineered Tissue No No No -Bleeding Controlled with Pressure Pressure Pressure -Treatment Response Procedure Procedure Procedure Tolerated Well Tolerated Well Tolerated Well -Offloading No No No -Debridement - Subq, 1st 20sq cm No No No 7-right plantar foot -Time 11:22 11:08 11:27 -Correct Patient Yes Yes Yes -Correct Side, Site, Position Yes Yes Yes -Correct Procedure Yes Yes Yes -Procedure Performed Yes Yes Yes -Type of Procedure Debridement Debridement Debridement -Clinical Debridement Subcutaneous Subcutaneous Subcutaneous -Tissue Removed Subcutaneous Subcutaneous Subcutaneous -Post Debridement (cm) - Length 1.5 1.0 3.0 -Post Debridement (cm) - Width 2.5 2 0.6 -Post Debridement (cm) - Depth 0.1 0.1 0.1 -Total Square (Post) (cm) 3.75 2.0 1.80 -Area of Debridement (cm) - Length 1.5 1 3.0 -Area of Debridement (cm) - Width 2.5 2 0.6 -Total Square (Area) (cm) 3.75 2 1.80 -Tunneling No No No -Undermining/Tunneling No No No -Circular Undermining No No No -Wound/Ulcer Outcome Not Healed Not Healed Not Healed -Ulcer Cleansing Rinsed/ Rinsed/ Rinsed/ Irrigated with Irrigated with Irrigated with Saline Saline Saline -Foul Odor after Cleansing No No No -Bioengineered Tissue No No No -Bleeding Controlled with Pressure Pressure Pressure -Treatment Response Procedure Procedure Procedure Tolerated Well Tolerated Well Tolerated Well -Offloading No No No -Debridement - Subq, 1st 20sq cm Yes Yes Yes Pain Scale: 0-10 Numeric Is Patient Pain Free? Yes Yes Yes - Nurse 3 - General Ulcer D/C NN Start: 11/29/24 10:44 Freq: Status: Active Protocol: Activity Type Activity Date Activity User E-sign Co-sign Detail Recorded Client Recorded Date Recorded By Document 11/29/24 11:38 [id number] 11/29/24 11:39 Document 12/06/24 11:26 KW [id number] 12/06/24 11:27 KW Document 12/13/24 11:32 KW [id number] 12/13/24 11:33 KW 11/29/24 12/06/24 12/13/24 11:38 11:26 11:32 Wound Care Center Nurse 3 #16 LT MED ANKLE -Ulcer Cleansing Rinsed/ Irrigated with Saline -Foul Odor after Cleansing No -Primary Dressing Applied Optilok 5x5 1/2 Optilok 6.5x10, Promogran ,Promogran Promogran Nasreen Matter Nasreen Matter Nasreen Matter -Primary Dressing Covered/Secured with Dry Gauze & Dry Gauze & Roll Gauze, Roll Gauze, Secured with Secured with Tape Tape -Optilok 5x5 1/2 1 -Optilok 6.5x10 1 -Promogran Nasreen Matter 1 1 1 7-right plantar foot -Ulcer Cleansing Rinsed/ Irrigated with Saline -Foul Odor after Cleansing No -Primary Dressing Applied Optilok 5x5 1/2 Optilok 6.5x10 ,Promogran Nasreen Matter -Other Dressing NASREEN betadine -Primary Dressing Covered/Secured with Dry Gauze & Roll Gauze, Secured with Tape -Optilok 5x5 1/2 1 -Optilok 6.5x10 1 -Promogran Nasreen Matter 0 1 BLE -Multi-Layered Wrap Application Multi-Layer Multi-Layer Comp - Bilat ($ Comp - Bilat ($ ) ) -Tubular Bandage Double Layer -Size of Tubigrip Used Size E -Size E ($) 4 -Multi-Layer Compression Bilat (Qty 1 1 applied) Pain Scale: 0-10 Numeric Is Patient Pain Free? Yes Yes Yes WC - Visit Discharge Discharge Condition Stable Stable Stable Ambulatory Status Wheelchair Wheelchair Wheelchair Transportation TRANSPORT Medication Reconcilliation completed & No No provided to patient/care provider Clinical Summary of Care Provided Yes Yes Facility Type [facility] Assessment/Plan Assessment/Plan (1) Venous insufficiency (chronic) (peripheral): CODE(S): I87.2 - Venous insufficiency (chronic) (peripheral) (2) Other specified peripheral vascular diseases: CODE(S): I73.89 - Other specified peripheral vascular diseases (3) Cellulitis of right lower limb: CODE(S): L03.115 - Cellulitis of right lower limb (4) Non-pressure 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 foot with fat layer exp osed: CODE(S): L97.512 - Non-pressure 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 foot with fat layer exposed (5) Non-pressure chronic ulcer of other part of left foot with fat layer expos ed: CODE(S): L97.522 - Non-pressure chronic ulcer of other part of left foot with fat layer exposed (6) Tinea unguium: CODE(S): B35.1 - Tinea unguium (7) Pain in right toe(s): CODE(S): M79.674 - Pain in right toe(s) (8) Pain in left toe(s): CODE(S): M79.675 - Pain in left toe(s) PLAN: Plan Exam performed wounds to right foot healing well, left medial ankle wound healed today complete 10 day course of ciprofloxacin that was provided Right foot wound plantarly excisionally debrided down to including level subcutaneous tissue of all nonviable tissue using dermal curette. Patient tolerated procedure well. Topical anesthesia used. Hemostasis obtained with light compression. Pre and postdebridement measurements documented nursing notes. today dressed with nasreen, DSD and bilateral 3m compression wraps. patient is minimally ambulatory due to right lower extremity contracture continue Rx for Ciprofloxacin 500mg BID - previous wound cultures positive for pseudomonas and antibicaterial therapy has yielded positive results so far Follow-up weekly
--- NOTE | 2024-12-20 12:11 | WC ---
Transfer of care from Dr. Anna to Dr. Yip effective end of day 12/20/24
--- NOTE | 2024-12-20 13:50 | WC ---
PHOTO 12/20/24 RIGHT FOOT
--- NOTE | 2024-12-20 13:54 | WC ---
PHOTO 12/20/24 RIGHT FOOT
--- NOTE | 2024-12-20 13:57 | WC ---
PHOTO 12/20/24 LEFT [facility]
== END 2024-12-26 23:59 | disposition home or self-care (01) ==
LOC: WC 10:45
PROVIDERS: PCP Family Medicine; Referring Provider Family Medicine; Visit Provider Surgery
DX: I87.2 Venous insufficiency (chronic) (peripheral) (principal); L97.522 Non-pressure chronic ulcer of other part of left foot with fat layer exposed; L97.512 Non-pressure 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 foot with fat layer exposed; L03.115 Cellulitis of right lower limb; M79.674 Pain in right toe(s); B35.1 Tinea unguium; R53.81 Other malaise; G62.9 Polyneuropathy, unspecified; M79.675 Pain in left toe(s); I73.89 Other specified peripheral vascular diseases
CPT/HCPCS: 11042; 29581

== ENCOUNTER 2025-01-24 10:45 | Outpatient (RCR) | payer MEDICARE, BC, SELFPAY ==
[2024-12-27 10:46] VITALS: BP 100/55; PULSE 62; RESP 16; TEMP 36.9
--- NOTE | 2024-12-28 08:35 | WC ---
PHOTO 12/27/24 RIGHT ALISE ANGEL
--- NOTE | 2024-12-28 08:36 | WC ---
PHOTO 12/27/24 RIGHT FOOT
--- NOTE | 2024-12-30 15:45 | PCM.WC.HP ---
History of Present Illness Date of Service: 12/27/24 Chief Complaint: Chronic, non-healing, right lower extremity and foot ulcerations History of Wound: This is an 84-year-old male with chronic ulcerations, dermatitis, and excoriations in his right lower extremity and right foot. He has a history of chronic venous insufficiency. 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 The patient's care is to be assumed for Dr. John Anna, who has relocated his practice of Podiatry. 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 The patient has a history of edema in his lower extremities. 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 The patient is minimally ambulatory and only transfers from bed to wheelchair and wheelchair to bed. The patient is a [facility] of a detention. It is noted that the patient has previously undergone angioplasty and stent placement in the common iliac veins bilaterally, a procedure performed by Dr. Hossein Arvizu on July 09, 2023. 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 Cellulitis of leg, right Debility Ulcer of right heel and midfoot with fat layer exposed Ulcer of left lower extremity with fat layer exposed Ulcer of right lower extremity with fat layer exposed Hypertension Diabetes Vascular dementia Hyperlipidemia Polyneuropathy Heart failure Peripheral vascular disease Home Medications Medication Instructions Recorded Last Taken Type atorvastatin 40 mg tablet 40 mg PO QHS 10/09/22 Unknown History cyanocobalamin (vitamin B-12) 500 500 mcg PO DAILY 10/09/22 Unknown History mcg tablet diphenhydramine 25 2 tab PO QHS PRN Pain 10/09/22 Unknown History mg-acetaminophen 500 mg tablet (Acetaminophen PM Extra Strength) docusate sodium 100 mg capsule 100 mg PO BID 10/09/22 Unknown History furosemide 40 mg tablet (Lasix) 40 mg PO DAILY 10/09/22 Unknown History gabapentin 300 mg capsule 300 mg PO TID 10/09/22 Unknown History magnesium hydroxide 400 mg/5 mL 30 ml PO DAILY PRN Constipation 10/09/22 Unknown History oral suspension (Milk of Magnesia) metformin 500 mg tablet,extended 500 mg PO DAILY 10/09/22 Unknown History release 24 hr multivitamin 1 tab PO DAILY 10/09/22 Unknown History polyethylene glycol 3350 17 gram 17 g PO DAILY 10/09/22 Unknown History oral powder packet (Miralax) sennosides 8.6 mg capsule (senna) 8.6 mg PO DAILY 10/09/22 Unknown History tamsulosin 0.4 mg capsule 0.8 mg PO QHS 10/09/22 Unknown History ascorbic acid (vitamin C) 500 mg mg PO 08/13/23 Unknown History capsule cholecalciferol (vitamin D3) 25 25 mcg PO DAILY 08/13/23 Unknown History mcg (1,000 unit) capsule clopidogrel 75 mg tablet (Plavix) 75 mg PO DAILY 08/13/23 Unknown History warfarin 5 mg tablet 9 mg PO DAILY 08/13/23 Unknown History zinc acetate 50 mg (zinc) capsule 50 mg PO DAILY 08/13/23 Unknown History Allergy/AdvReac Type Severity Reaction Status Date / Time No Known Allergies Allergy Verified 01/13/24 11:13 Family History Other CAD (coronary artery disease) Colon cancer Heart disease Hypertension Myocardial infarction Thyroid disorder Social History Smoking Status: Never smoker Physical Exam Const alert, oriented x3 and no apparent distress General Appearance: cooperative, comfortable and well developed Orientation / Consciousness: awake, oriented to person, oriented to place and oriented to time Exam Limitations: no limitations HEENT normocephalic and head/scalp atraumatic Head and Scalp: normal to inspection, normocephalic and atraumatic Face and Sinus: normal facial exam Nose: external nose normal External Ear: external ears normal Eyes EOMs intact bilaterally Resp normal respiratory effort, normal air movement, no retractions and no use of accessory muscles Effort and Inspection: able to speak in complete sentences Skin Wound Narrative: An open ulceration is noted on the distal and dorsal portion of the right midfoot. It is full-thickness, extending into the subcutaneous tissues. A moderate amount of nonviable tissue and bioburden are present. Dimensions are documented elsewhere. There is no significant undermining. A large portion of the foot and lower leg demonstrate severe, scaly dermatitic changes and scattered superficial excoriations. Lipodermatosclerosis and hyperpigmentation are noted in the right gaiter area. Mild swelling and edema are noted in the patient's right lower extremity as well. A flexion contracture of the knee and an equinus contracture of the ankle with a varus hindfoot alignment are noted. A full-thickness ulceration is noted on the distal, medial right lower extremity. Ulcer margins are well beveled. There is a small amount of bioburden and nonviable tissue. There is no sign of infection or cellulitis. Dimensions are documented elsewhere. Neuro oriented x3, CN's II-XII intact bilaterally and moves all extremities Sensorium / Orientation: awake, alert, oriented to person, oriented to place and oriented to time Speech: speech normal Debridement Note Debridement Note Wound debrided: Right distal, medial lower extremity and right foot ulcerations Laterality: Right Type of Debridement: Excisional debridement Anesthesia Used: 5% Lidocaine Gel Depth: Down to and including healthy tissue and in the subcutaneous layer Percentage of wound debrided: 100 Instrument Used: 3mm curette Tissue Removed: Bioburden and nonviable tissue Severity: Fat Layer Exposed Amount of bleeding with debridement: Mild Bleeding Controlled with: Compression and gauze Patient tolerated procedure: Patient tolerated procedure well Post-Debridement Measurements and Additional Note: Post-Debridement Measurements/Treatment - Nurse 1 - General Ulcer Assessment Start: 12/27/24 10:45 Freq: Status: Active Protocol: MARTA Activity Type Activity Date Activity User E-sign Co-sign Detail Recorded Client Recorded Date Recorded By Document 12/27/24 10:46 [facility] [id number] 12/27/24 10:49 [facility] 12/27/24 10:46 - Today's Visit Information Type of service Follow-up Visit (Physician/CHILD PROTECTIVE SERVICES SPECIALIST ) Arrival Mode Wheelchair Transfer Assistance Other Transfer Assist (Other) 2 Patient Identification Verified (Name & Yes ) Patient Requires Transmission-Based No Precautions Vital Signs Temperature (97.8 F-99.1 F) 98.4 F Temperature Source Temporal Pulse Rate (60-100) 62 Pulse Location Monitor Respiratory Rate (12-18) 16 Respiratory rate source Observation Oxygen Delivery Method Room Air Blood Pressure (90/60-120/80) 100/55 L Blood Pressure Mean 70 Source Monitor Position Sitting Blood Pressure Location Right Arm History Since Last Visit- (Skip if this is Patient's initial visit) Have you changed medications since your No last visit? Any new allergies or adverse reactions No Had a fall/change in ADL's that may No increase risk of falls Signs or symptoms of abuse and/or No neglect since last visit Have you been in the hospital since your No last visit? Has dressing in place as prescribed Yes Has compression in place as prescribed Yes Has offloadiing in place as prescribed N/A Experienced any changes in pain level or No management Left Footwear Surgical Shoe with pressure relief insole Right Footwear Surgical Shoe with pressure relief insole Pain Scale: 0-10 Numeric Is Patient Pain Free? Yes WC - Nurse 1 - General Ulcer Measurement Start: 12/27/24 10:45 Freq: Status: Active Protocol: Activity Type Activity Date Activity User E-sign Co-sign Detail Recorded Client Recorded Date Recorded By Document 12/27/24 10:46 [facility] [id number] 12/27/24 10:49 [facility] 12/27/24 10:46 Wound Center Nurse 1 #18- R MED ANGEL -Combined with other wound No -Current Size (cm) - Length 2 -Current Size (cm) - Width 1.4 -Current Size (cm) - Depth 0.1 -Total Square Cm 2.8 -Date of Last Picture (Recall this 12/27/24 field) -Photo Taken Yes -Tunneling No -Undermining/Tunneling No -Circular Undermining No -Exudate Amt Medium -Exudate Type Serosanguineous -Wound Margin Distinct, Outline Attached -Granulation Amt Medium (34-66%) -Granulation Quality Red -Slough/Fibrin Yes -Necrosis Amt Medium (34-66%) -Necrotic Tissue Type Adherent Slough -Texture (Yuliet-wound Skin Appearance) Assessed, Scarring -Moisture (Yuliet-wound Skin Appearance) Assessed -Color (Yuliet-wound Skin Appearance) Assessed, Erythema -Temperature (Yuliet-wound Skin No Abnormality Appearance) (Pt Warm) -Tenderness on Palpation (Yuliet-wound No Skin Appearance) -Ulcer Cleansing Soap and Water -Foul Odor after Cleansing No -Anesthetic Used 5% Lidocaine Gel 7-right plantar foot -Combined with other wound No -Current Size (cm) - Length 1.2 -Current Size (cm) - Width 2 -Current Size (cm) - Depth 0.1 -Total Square Cm 2.4 -Date of Last Picture (Recall this 12/27/24 field) -Photo Taken Yes -Epithelialization Small 1-33% -Tunneling No -Undermining/Tunneling No -Circular Undermining No -Exudate Amt Medium -Exudate Type Serosanguineous -Wound Margin Distinct, Outline Attached -Granulation Amt Large (67-100%) -Granulation Quality [place] -Slough/Fibrin Yes -Necrosis Amt Small (1-33%) -Necrotic Tissue Type Adherent Slough -Texture (Yuliet-wound Skin Appearance) Assessed, Scarring -Moisture (Yuliet-wound Skin Appearance) Assessed,Dry/ Scaly -Color (Yuliet-wound Skin Appearance) Assessed -Temperature (Yuliet-wound Skin No Abnormality Appearance) (Pt Warm) -Tenderness on Palpation (Yuliet-wound No Skin Appearance) -Ulcer Cleansing Soap and Water -Foul Odor after Cleansing No -Anesthetic Used 5% Lidocaine Gel Lower Limb Edema Present Yes Right Calf (cm) 35.8 Right Ankle (cm) 24.2 WC - Nurse 2 - General Ulcer CM Notes Start: 12/27/24 10:45 Freq: Status: Active Protocol: Activity Type Activity Date Activity User E-sign Co-sign Detail Recorded Client Recorded Date Recorded By Document 12/27/24 11:18 DS [id number] 12/27/24 11:21 DS 12/27/24 11:18 Wound Center Nurse 2 #18- R MED ANGEL -Time 11:18 -Correct Patient Yes -Correct Side, Site, Position Yes -Correct Procedure Yes -Procedure Performed Yes -Type of Procedure Debridement -Clinical Debridement Subcutaneous -Tissue Removed Subcutaneous -Post Debridement (cm) - Length 2.0 -Post Debridement (cm) - Width 1.5 -Post Debridement (cm) - Depth 0.1 -Total Square (Post) (cm) 3.00 -Area of Debridement (cm) - Length 2.0 -Area of Debridement (cm) - Width 1.5 -Total Square (Area) (cm) 3.00 -Tunneling No -Undermining/Tunneling No -Circular Undermining No -Wound/Ulcer Outcome Not Healed -Ulcer Cleansing Rinsed/ Irrigated with Saline -Foul Odor after Cleansing No -Bioengineered Tissue No -Bleeding Controlled with Pressure -Treatment Response Procedure Tolerated Well -Debridement - Subq, 1st 20sq cm No 7-right plantar foot -Time 11:18 -Correct Patient Yes -Correct Side, Site, Position Yes -Correct Procedure Yes -Procedure Performed Yes -Type of Procedure Debridement -Clinical Debridement Subcutaneous -Tissue Removed Subcutaneous -Post Debridement (cm) - Length 2.1 -Post Debridement (cm) - Width 1.3 -Post Debridement (cm) - Depth 0.2 -Total Square (Post) (cm) 2.73 -Area of Debridement (cm) - Length 2.1 -Area of Debridement (cm) - Width 1.3 -Total Square (Area) (cm) 2.73 -Tunneling No -Undermining/Tunneling No -Circular Undermining No -Wound/Ulcer Outcome Not Healed -Ulcer Cleansing Rinsed/ Irrigated with Saline -Foul Odor after Cleansing No -Bioengineered Tissue No -Bleeding Controlled with Pressure -Treatment Response Procedure Tolerated Well -Debridement - Subq, 1st 20sq cm Yes Pain Scale: 0-10 Numeric Is Patient Pain Free? Yes - Nurse 3 - General Ulcer D/C NN Start: 12/27/24 10:45 Freq: Status: Active Protocol: Activity Type Activity Date Activity User E-sign Co-sign Detail Recorded Client Recorded Date Recorded By Document 12/27/24 11:27 [facility] [id number] 12/27/24 11:28 [facility] 12/27/24 11:27 Wound Care Center Nurse 3 #18- R MED ANGEL -Ulcer Cleansing Rinsed/ Irrigated with Saline -Foul Odor after Cleansing No -Primary Dressing Applied AMD Dressing 4x4,C Hydrogel -Primary Dressing Covered/Secured with Dry Gauze & Roll Gauze, Secured with Tape -Other Covering drsg per kw print binding and finishing worker -AMD Dressing 4x4 1 -Hydrogel 1 7-right plantar foot -Ulcer Cleansing Rinsed/ Irrigated with Saline -Foul Odor after Cleansing No -Primary Dressing Applied AMD Dressing 4x4,C Hydrogel -Other Dressing drsg per kw print binding and finishing worker -Primary Dressing Covered/Secured with Dry Gauze & Roll Gauze, Secured with Tape -AMD Dressing 4x4 1 -Hydrogel 0 BLE -Tubular Bandage Double Layer -Size of Tubigrip Used Size E -Size E ($) 2 Treatment Response Procedure Tolerated Well Pain Scale: 0-10 Numeric Is Patient Pain Free? 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: CODE(S): L97.902 - Non-pressure chronic ulcer of unspecified part of unspecified lower leg with fat layer exposed QUALIFIERS: Laterality: right Qualified Code(s): L97.912 - Non-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 (3) Non-pressure 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 foot with fat layer exposed: CODE(S): L97.512 - Non-pressure 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 foot with fat layer exposed (4) Venous stasis ulcer: CODE(S): I83.009 - Varicose veins of unspecified lower extremity with ulcer of unspecified site; L97.909 - Non-pressure chronic ulcer of unspecified part of unspecified lower leg with unspecified severity QUALIFIERS: Venous stasis ulcer site: calf Varicose vein presence: without varicose veins Laterality: right Non-pressure ulcer stage: with fat layer exposed Qualified Code(s): I87.2 - Venous insufficiency (chronic) (peripheral); L97.212 - Non-pressure chronic ulcer 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 (5) Venous stasis dermatitis of right lower extremity: CODE(S): I87.2 - Venous insufficiency (chronic) (peripheral) (6) Venous insufficiency (chronic) (peripheral): CODE(S): I87.2 - Venous insufficiency (chronic) (peripheral) (7) Peripheral vascular disease: CODE(S): I73.9 - Peripheral vascular disease, unspecified (8) Bilateral lower extremity edema: CODE(S): R60.0 - Localized edema (9) Debility: CODE(S): R53.81 - Other malaise (10) Tinea unguium: CODE(S): B35.1 - Tinea unguium PLAN: Plan This is an 84-year-old male with deformities in his right lower extremity and 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 He has ulcerations of the right distal lower extremity and right foot. The patient claims not to be diabetic. He has a history of venous and arterial disease. The patient is nonambulatory. We are to implement the use collagen hydrogel and Kike AMD foam with PHMB topically to the foot and right lower extremity ulcerations. These are to be applied on a daily basis. Tubigrips are to be used for compression purposes, and are to be donned daily. The patient has been encouraged to elevate his lower extremities as much as possible. Elevation is to be to heart level, or higher. The patient is to return in 1 week for reevaluation. Total time: 48 minutes
--- NOTE | 2025-01-04 08:51 | WC ---
PHOTO 01/03/25 RIGHT ALISE ANGEL
--- NOTE | 2025-01-04 08:53 | WC ---
PHOTO 01/03/25 RIGHT PLANTAR FT
--- NOTE | 2025-01-04 15:39 | PCM.WC.HP ---
History of Present Illness Date of Service: 01/03/25 Chief Complaint: Chronic, non-healing, right lower extremity and foot ulcerations History of Wound: This is an 84-year-old male with chronic ulcerations, dermatitis, and excoriations in his right lower extremity and right foot. He has a history of chronic venous insufficiency. 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 The patient's care is to be assumed from Dr. John Anna, who has relocated his practice of Podiatry. 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 The patient has a history of edema in his lower extremities. 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 The patient is minimally ambulatory and only transfers from bed to wheelchair and wheelchair to bed. The patient is a resident of a residential. It is noted that the patient has previously undergone angioplasty and stent placement in the common iliac veins bilaterally, a procedure performed by Dr. Hossein Arvizu on July 09, 2023. [facility] Medical History (Updated 01/04/25 @ 15:[address] Clive Yip MD) Non-pressure chronic ulcer 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 Venous stasis ulcer Venous stasis dermatitis of right lower extremity Non-pressure chronic ulcer of lower leg with fat layer exposed Cellulitis of leg, right Debility Ulcer of right heel and midfoot with fat layer exposed Ulcer of left lower extremity with fat layer exposed Ulcer of right lower extremity with fat layer exposed Hypertension Diabetes Vascular dementia Hyperlipidemia Polyneuropathy Heart failure Peripheral vascular disease Home Medications Medication Instructions Recorded Last Taken Type atorvastatin 40 mg tablet 40 mg PO QHS 10/09/22 Unknown History cyanocobalamin (vitamin B-12) 500 500 mcg PO DAILY 10/09/22 Unknown History mcg tablet diphenhydramine 25 2 tab PO QHS PRN Pain 10/09/22 Unknown History mg-acetaminophen 500 mg tablet (Acetaminophen PM Extra Strength) docusate sodium 100 mg capsule 100 mg PO BID 10/09/22 Unknown History furosemide 40 mg tablet (Lasix) 40 mg PO DAILY 10/09/22 Unknown History gabapentin 300 mg capsule 300 mg PO TID 10/09/22 Unknown History magnesium hydroxide 400 mg/5 mL 30 ml PO DAILY PRN Constipation 10/09/22 Unknown History oral suspension (Milk of Magnesia) metformin 500 mg tablet,extended 500 mg PO DAILY 10/09/22 Unknown History release 24 hr multivitamin 1 tab PO DAILY 10/09/22 Unknown History polyethylene glycol 3350 17 gram 17 g PO DAILY 10/09/22 Unknown History oral powder packet (Miralax) sennosides 8.6 mg capsule (senna) 8.6 mg PO DAILY 10/09/22 Unknown History tamsulosin 0.4 mg capsule 0.8 mg PO QHS 10/09/22 Unknown History ascorbic acid (vitamin C) 500 mg mg PO 08/13/23 Unknown History capsule cholecalciferol (vitamin D3) 25 25 mcg PO DAILY 08/13/23 Unknown History mcg (1,000 unit) capsule clopidogrel 75 mg tablet (Plavix) 75 mg PO DAILY 08/13/23 Unknown History warfarin 5 mg tablet 9 mg PO DAILY 08/13/23 Unknown History zinc acetate 50 mg (zinc) capsule 50 mg PO DAILY 08/13/23 Unknown History Allergy/AdvReac Type Severity Reaction Status Date / Time No Known Allergies Allergy Verified 01/13/24 11:13 Family History Other CAD (coronary artery disease) Colon cancer Heart disease Hypertension Myocardial infarction Thyroid disorder Social History Smoking Status: Never smoker Physical Exam Const alert, oriented x3 and no apparent distress General Appearance: cooperative, comfortable and well developed Orientation / Consciousness: awake, oriented to person, oriented to place and oriented to time Exam Limitations: no limitations HEENT normocephalic and head/scalp atraumatic Head and Scalp: normal to inspection, normocephalic and atraumatic Face and Sinus: normal facial exam Nose: external nose normal External Ear: external ears normal Eyes EOMs intact bilaterally Resp normal respiratory effort, normal air movement, no retractions and no use of accessory muscles Effort and Inspection: able to speak in complete sentences Skin Wound Narrative: The ulceration on the distal portion of the patient's right midfoot is now completely healed and epithelialized. There continues to be a large area of dry, scaly, eczematous epithelium on the plantar aspect of the distal foot. Lipodermatosclerosis and hyperpigmentation are noted in the right gaiter area. Mild swelling and edema are noted in the patient's right lower extremity as well, though this continues to improve. A flexion contracture of the knee and an equinus contracture of the ankle with a varus hindfoot alignment are noted. A full-thickness ulceration is noted on the distal, medial right lower extremity. Ulcer margins are well beveled. There is a small amount of bioburden and nonviable tissue. There is no sign of infection or cellulitis. Dimensions are documented elsewhere. Neuro oriented x3, CN's II-XII intact bilaterally and moves all extremities Sensorium / Orientation: awake, alert, oriented to person, oriented to place and oriented to time Speech: speech normal Debridement Note Debridement Note Wound debrided: Right distal, medial lower extremity ulceration Laterality: Right Type of Debridement: Excisional debridement Anesthesia Used: 5% Lidocaine Gel Depth: Down to and including healthy tissue and in the subcutaneous layer Percentage of wound debrided: 100 Instrument Used: 3mm curette Tissue Removed: Bioburden and nonviable tissue Severity: Fat Layer Exposed Amount of bleeding with debridement: Mild Bleeding Controlled with: Compression and gauze Patient tolerated procedure: Patient tolerated procedure well Post-Debridement Measurements and Additional Note: Post-Debridement Measurements/Treatment - Nurse 1 - General Ulcer Assessment Start: 12/27/24 10:45 Freq: Status: Active Protocol: MARTA Activity Type Activity Date Activity User E-sign Co-sign Detail Recorded Client Recorded Date Recorded By Document 12/27/24 10:46 [facility] [id number] 12/27/24 10:49 [facility] Document 01/03/25 10:36 [id number] 01/03/25 10:41 12/27/24 01/03/25 10:46 10:36 - Today's Visit Information Type of service Follow-up Visit (Physician/[employer] ) Arrival Mode Wheelchair Transfer Assistance Other Transfer Assist (Other) 2 Patient Identification Verified (Name & Yes ) Patient Requires Transmission-Based No Precautions Vital Signs Temperature (97.8 F-99.1 F) 98.4 F Temperature Source Temporal Pulse Rate (60-100) 62 Pulse Location Monitor Respiratory Rate (12-18) 16 Respiratory rate source Observation Oxygen Delivery Method Room Air Blood Pressure (90/60-120/80) 100/55 L Blood Pressure Mean 70 Source Monitor Position Sitting Blood Pressure Location Right Arm History Since Last Visit- (Skip if this is Patient's initial visit) Have you changed medications since your No last visit? Any new allergies or adverse reactions No Had a fall/change in ADL's that may No increase risk of falls Signs or symptoms of abuse and/or No neglect since last visit Have you been in the hospital since your No last visit? Has dressing in place as prescribed Yes Has compression in place as prescribed Yes Has offloadiing in place as prescribed N/A Experienced any changes in pain level or No management Left Footwear Surgical Shoe with pressure relief insole Right Footwear Surgical Shoe with pressure relief insole Pain Scale: 0-10 Numeric Is Patient Pain Free? Yes Yes WC - Nurse 1 - General Ulcer Measurement Start: 12/27/24 10:45 Freq: Status: Active Protocol: Activity Type Activity Date Activity User E-sign Co-sign Detail Recorded Client Recorded Date Recorded By Document 12/27/24 10:46 [facility] [id number] 12/27/24 10:49 [facility] Document 01/03/25 10:36 [id number] 01/03/25 10:41 KW 12/27/24 01/03/25 10:46 10:36 Wound Center Nurse 1 #18- R MED ANGEL -Combined with other wound No -Current Size (cm) - Length 2 1.7 -Current Size (cm) - Width 1.4 0.9 -Current Size (cm) - Depth 0.1 0.1 -Total Square Cm 2.8 1.53 -Date of Last Picture (Recall this 12/27/24 01/03/25 field) -Photo Taken Yes -Tunneling No -Undermining/Tunneling No -Circular Undermining No -Exudate Amt Medium Small -Exudate Type Serosanguineous Serosanguineous -Wound Margin Distinct, Distinct, Outline Outline Attached Attached -Granulation Amt Medium (34-66%) Large (67-100%) -Granulation Quality Red Lorraine -Slough/Fibrin Yes -Necrosis Amt Medium (34-66%) -Necrotic Tissue Type Adherent Slough -Texture (Yuliet-wound Skin Appearance) Assessed, Assessed Scarring -Moisture (Yuliet-wound Skin Appearance) Assessed Assessed,Dry/ Scaly -Color (Yuliet-wound Skin Appearance) Assessed, Assessed Erythema -Temperature (Yuliet-wound Skin No Abnormality No Abnormality Appearance) (Pt Warm) (Pt Warm) -Tenderness on Palpation (Yuliet-wound No No Skin Appearance) -Ulcer Cleansing Soap and Water Soap and Water -Foul Odor after Cleansing No No -Anesthetic Used 5% Lidocaine 5% Lidocaine Gel Gel 7-right plantar foot -Combined with other wound No -Current Size (cm) - Length 1.2 0.1 -Current Size (cm) - Width 2 0.1 -Current Size (cm) - Depth 0.1 0.1 -Total Square Cm 2.4 0.01 -Date of Last Picture (Recall this 12/27/24 01/03/25 field) -Photo Taken Yes -Epithelialization Small 1-33% -Tunneling No -Undermining/Tunneling No -Circular Undermining No -Exudate Amt Medium Small -Exudate Type Serosanguineous Serosanguineous -Wound Margin Distinct, Thickened Outline Attached -Granulation Amt Large (67-100%) Large (67-100%) -Granulation Quality Lorraine Lorraine -Slough/Fibrin Yes -Necrosis Amt Small (1-33%) -Necrotic Tissue Type Adherent Slough -Texture (Yuliet-wound Skin Appearance) Assessed, Assessed Scarring -Moisture (Yuliet-wound Skin Appearance) Assessed,Dry/ Assessed Scaly -Color (Yuliet-wound Skin Appearance) Assessed Assessed -Temperature (Yuliet-wound Skin No Abnormality No Abnormality Appearance) (Pt Warm) (Pt Warm) -Tenderness on Palpation (Yuliet-wound No No Skin Appearance) -Ulcer Cleansing Soap and Water Soap and Water -Foul Odor after Cleansing No No -Anesthetic Used 5% Lidocaine 5% Lidocaine Gel Gel Lower Limb Edema Present Yes Right Calf (cm) 35.8 Right Ankle (cm) 24.2 WC - Nurse 2 - General Ulcer CM Notes Start: 12/27/24 10:45 Freq: Status: Active Protocol: Activity Type Activity Date Activity User E-sign Co-sign Detail Recorded Client Recorded Date Recorded By Document 12/27/24 11:18 DS [id number] 12/27/24 11:21 DS Document 01/03/25 11:02 DS [id number] 01/03/25 11:10 DS 12/27/24 01/03/25 11:18 11:02 Wound Center Nurse 2 #18- R MED ANGEL -Time 11:18 11:05 -Correct Patient Yes Yes -Correct Side, Site, Position Yes Yes -Correct Procedure Yes Yes -Procedure Performed Yes Yes -Type of Procedure Debridement Debridement -Clinical Debridement Subcutaneous Subcutaneous -Tissue Removed Subcutaneous Subcutaneous -Post Debridement (cm) - Length 2.0 1.5 -Post Debridement (cm) - Width 1.5 1.1 -Post Debridement (cm) - Depth 0.1 0.1 -Total Square (Post) (cm) 3.00 1.65 -Area of Debridement (cm) - Length 2.0 1.5 -Area of Debridement (cm) - Width 1.5 1.1 -Total Square (Area) (cm) 3.00 1.65 -Tunneling No No -Undermining/Tunneling No No -Circular Undermining No No -Wound/Ulcer Outcome Not Healed Not Healed -Ulcer Cleansing Rinsed/ Irrigated with Saline -Foul Odor after Cleansing No No -Bioengineered Tissue No No -Bleeding Controlled with Pressure Pressure -Treatment Response Procedure Tolerated Well -Debridement - Subq, 1st 20sq cm No Yes 7-right plantar foot -Time 11:18 11:06 -Correct Patient Yes Yes -Correct Side, Site, Position Yes Yes -Correct Procedure Yes -Procedure Performed Yes No -Type of Procedure Debridement -Clinical Debridement Subcutaneous -Tissue Removed Subcutaneous -Post Debridement (cm) - Length 2.1 -Post Debridement (cm) - Width 1.3 -Post Debridement (cm) - Depth 0.2 -Total Square (Post) (cm) 2.73 -Area of Debridement (cm) - Length 2.1 -Area of Debridement (cm) - Width 1.3 -Total Square (Area) (cm) 2.73 -Tunneling No -Undermining/Tunneling No -Circular Undermining No -Wound/Ulcer Outcome Not Healed Healed- Epithelialized -Ulcer Cleansing Rinsed/ Irrigated with Saline -Foul Odor after Cleansing No -Bioengineered Tissue No -Bleeding Controlled with Pressure -Treatment Response Procedure Tolerated Well -Debridement - Subq, 1st 20sq cm Yes Pain Scale: 0-10 Numeric Is Patient Pain Free? Yes Yes - Nurse 3 - General Ulcer D/C NN Start: 12/27/24 10:45 Freq: Status: Active Protocol: Activity Type Activity Date Activity User E-sign Co-sign Detail Recorded Client Recorded Date Recorded By Document 12/27/24 11:27 [facility] [id number] 12/27/24 11:28 [facility] Document 01/03/25 11:27 DS [id number] 01/03/25 11:29 DS 12/27/24 01/03/25 11:27 11:27 Wound Care Center Nurse 3 #18- R MED ANGEL -Ulcer Cleansing Rinsed/ Irrigated with Saline -Foul Odor after Cleansing No -Primary Dressing Applied AMD Dressing Aquacel Extra 4x4,C Hydrogel -Primary Dressing Covered/Secured with Dry Gauze & Roll Gauze, Secured with Tape -Other Covering drsg per kw senior technical support engineer -AMD Dressing 4x4 1 -Aquacel Extra 1 -Hydrogel 1 7-right plantar foot -Ulcer Cleansing Rinsed/ Irrigated with Saline -Foul Odor after Cleansing No -Primary Dressing Applied AMD Dressing 4x4,C Hydrogel -Other Dressing drsg per kw senior technical support engineer -Primary Dressing Covered/Secured with Dry Gauze & Roll Gauze, Secured with Tape -AMD Dressing 4x4 1 -Hydrogel 0 LLE -Tubular Bandage Single Layer -Size of Tubigrip Used Size E -Size E ($) 1 BLE -Multi-Layered Wrap Application Unna Boot - Right -Tubular Bandage Double Layer -Size of Tubigrip Used Size E -Size E ($) 2 -Unna- Right (Qty applied) 1 Treatment Response Procedure Tolerated Well Pain Scale: 0-10 Numeric Is Patient Pain Free? Yes Yes WC - Visit Discharge Discharge Condition Stable Stable Ambulatory Status Wheelchair Ambulatory, Walker, Wheelchair Transportation [facility] transport Facility Type Photo Producer Care Facility Charges/Coding Procedures Integumentary [id number]: [id number] Samina subq tissue 20 sq cm/< Assessment/Plan Assessment/Plan (1) Non-pressure chronic ulcer 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: CODE(S): L97.212 - Non-pressure chronic ulcer 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 (2) Venous stasis ulcer: CODE(S): I83.009 - Varicose veins of unspecified lower extremity with ulcer of unspecified site; L97.909 - Non-pressure chronic ulcer of unspecified part of unspecified lower leg with unspecified severity QUALIFIERS: Venous stasis ulcer site: calf Varicose vein presence: without varicose veins Laterality: right Non-pressure ulcer stage: with fat layer exposed Qualified Code(s): I87.2 - Venous insufficiency (chronic) (peripheral); L97.212 - Non-pressure chronic ulcer 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 (3) Non-pressure chronic ulcer of lower leg with fat layer exposed: CODE(S): L97.902 - Non-pressure chronic ulcer of unspecified part of unspecified lower leg with fat layer exposed QUALIFIERS: Laterality: right Qualified Code(s): L97.912 - Non-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 (4) Non-pressure 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 foot with fat layer exposed: CODE(S): L97.512 - Non-pressure 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 foot with fat layer exposed (5) Venous stasis dermatitis of right lower extremity: CODE(S): I87.2 - Venous insufficiency (chronic) (peripheral) (6) Venous insufficiency (chronic) (peripheral): CODE(S): I87.2 - Venous insufficiency (chronic) (peripheral) (7) Peripheral vascular disease: CODE(S): I73.9 - Peripheral vascular disease, unspecified (8) Bilateral lower extremity edema: CODE(S): R60.0 - Localized edema (9) Debility: CODE(S): R53.81 - Other malaise (10) Tinea unguium: CODE(S): B35.1 - Tinea unguium PLAN: Plan This is an 84-year-old male with deformities in his right lower extremity and 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 He has ulcerations of the right distal lower extremity and right foot. The right foot ulcerations appear to be healed. The patient claims not to be diabetic. He has a history of venous and arterial disease. The patient is nonambulatory. We are to implement the use of moistened Aquacel Extra relative to the ulceration of the right medial calf. Unna compression wrap will be applied to the right lower extremity, with intent to change twice weekly. Aquaphor has been recommended for topical use relative to the dry, scaly, eczematous epithelium on the right foot. Tubigrips are to be used for compression on the left lower extremity, and donned daily. The patient has been encouraged to elevate his lower extremities as much as possible. Elevation is to be to heart level, or higher. The patient has been encouraged to optimize his nutritional intake. The patient is to return in 1 week for reevaluation. Total time: 25 minutes
[2025-01-10 10:43] VITALS: BP 109/54; PULSE 53; RESP 16; TEMP 36.3
--- NOTE | 2025-01-11 13:43 | WC ---
PHOTO 01/10/25 RIGHT ALISE ANGEL
--- NOTE | 2025-01-11 13:43 | WC ---
PHOTO 01/10/25 RIGHT PLANTAR
--- NOTE | 2025-01-14 16:39 | HP.PCM_ITS ---
History of Present Illness Date of Service: 01/10/25 Chief Complaint: Chronic, non-healing, right lower extremity and foot ulce rations History of Wound: This is an 85-year-old male with chronic ulcerations, dermatitis, and excoriations in his right lower extremity and right foot. He has a history of chronic venous insufficiency. 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 The patient's care has been assumed from Dr. John Anna, who has relocated his practice of Podiatry. The patient has a history of edema in his lower extremities. 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 The patient is minimally ambulatory and only transfers from bed to wheelchair and wheelchair to bed. The [facility] a [facility] a [facility]. It is noted that the patient has previously undergone angioplasty and stent placement in the common iliac veins bilaterally, a procedure performed by Dr. Hossein Arvizu on July 09, 2023. [facility] Medical History Non-pressure chronic ulcer 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 Venous stasis ulcer Venous stasis dermatitis of right lower extremity Non-pressure chronic ulcer of lower leg with fat layer exposed Cellulitis of leg, right Debility Ulcer of right heel and midfoot with fat layer exposed Ulcer of left lower extremity with fat layer exposed Ulcer of right lower extremity with fat layer exposed Hypertension Diabetes Vascular dementia Hyperlipidemia Polyneuropathy Heart failure Peripheral vascular disease Home Medications Medication Instructions Recorded Last Taken Type atorvastatin 40 mg tablet 40 mg PO QHS 10/09/22 Unknow n History cyanocobalamin (vitamin B-12) 500 500 mcg PO DAILY Unknown History mcg tablet diphenhydramine 25 2 tab PO QHS PRN Pain Unknown History mg-acetaminophen 500 mg tablet (Acetaminophen PM Extra Strength) docusate sodium 100 mg capsule 100 mg PO BID 10/09/22 Unknown History furosemide 40 mg tablet (Lasix) 40 mg PO DAILY 3 Unknown History gabapentin 300 mg capsule 300 mg PO TID 10/09/22 Unkno wn History magnesium hydroxide 400 mg/5 mL 30 ml PO DAILY PRN Con stipation 10/09/22 Unknown History oral suspension (Milk of Magnesia) metformin 500 mg tablet,extended 500 mg PO DAILY 10/09 Unknown History release 24 hr multivitamin 1 tab PO DAILY 10/09/22 Unkn own History polyethylene glycol 3350 17 gram 17 g PO DAILY 3 Unknown History oral powder packet (Miralax) sennosides 8.6 mg capsule (senna) 8.6 mg PO DAILY 09/27 09/18 Unknown History tamsulosin 0.4 mg capsule 0.8 mg PO QHS 10/09/22 Unkno wn History ascorbic acid (vitamin C) 500 mg mg PO 08/13/23 Unknow n History capsule cholecalciferol (vitamin D3) 25 25 mcg PO DAILY Unknown History mcg (1,000 unit) capsule clopidogrel 75 mg tablet (Plavix) 75 mg PO DAILY 08/13 Unknown History warfarin 5 mg tablet 9 mg PO DAILY 08/13/23 Unkno wn History zinc acetate 50 mg (zinc) capsule 50 mg PO DAILY 08/13 Unknown History Allergy/AdvReac Type Severity Reaction Status Date / Time No Known Allergies Allergy Verified 01/13/24 11:13 Family History Other CAD (coronary artery disease) Colon cancer Heart disease Hypertension Myocardial infarction Thyroid disorder Social History Smoking Status: Never smoker Physical Exam Const alert, oriented x3 and no apparent distress General Appearance: cooperative, comfortable and well developed Orientation / Consciousness: awake, oriented to person, oriented to place and oriented to time Exam Limitations: no limitations HEENT normocephalic and head/scalp atraumatic Head and Scalp: normal to inspection, normocephalic and atraumatic Face and Sinus: normal facial exam Nose: external nose normal External Ear: external ears normal Eyes EOMs intact bilaterally Resp normal respiratory effort, normal air movement, no retractions and no use of accessory muscles Effort and Inspection: able to speak in complete sentences Skin Wound Narrative: The ulceration on the distal portion of the patient's right midfoot has reopened after having been declared healed 1 week ago. The ulceration is small, and dimensions are documented elsewhere. The ulceration is full-thickness. There is a small amount of bioburden and slough. There is no sign of infection or cellulitis. There continues to be an area of dry, scaly, eczematous epithelium on the plantar aspect of the distal foot. Lipodermatosclerosis and hyperpigmentation are noted in the right gaiter area. Mild swelling and edema are noted in the patient's right lower extremity as well, though this continues to improve. A flexion contracture of the knee and an equinus contracture of the ankle with a varus hindfoot alignment are noted. A full-thickness ulceration is noted on the distal, medial right lower extremity. Ulcer margins are well beveled. There is a small amount of bioburden and nonviable tissue. There is no sign of infection or cellulitis. Dimensions are documented elsewhere. Neuro oriented x3, CN's II-XII intact bilaterally and moves all extremities Sensorium / Orientation: awake, alert, oriented to person, oriented to place and oriented to time Speech: speech normal Debridement Note Debridement Note Wound debrided: Right distal, medial lower extremity ulceration Laterality: Right Type of Debridement: Excisional debridement Anesthesia Used: 5% Lidocaine Gel Depth: Down to and including healthy tissue and in the subcutaneous layer Percentage of wound debrided: 100 Instrument Used: 5mm curette Tissue Removed: Bioburden and nonviable tissue Severity: Fat Layer Exposed Amount of bleeding with debridement: Mild Bleeding Controlled with: Compression and gauze Patient tolerated procedure: Patient tolerated procedure well Post-Debridement Measurements and Additional Note: Post-Debridement Measurements/Treatment - Nurse 1 - General Ulcer Assessment Start: 12/27/24 10:45 Freq: Status: Active Protocol: .TYLER Activity Type Activity Date Activity User E-sign Co-sign Detail Recorded Client Recorded Date Recorded By Document 12/27/24 10:46 [facility] [id number] 12/27/24 10:49 [facility] Document 01/03/25 10:36 [id number] 01/03/25 10:41 KW Document 01/10/25 10:43 [facility] [id number] 01/10/25 10:47 [facility] 12/27/24 01/03/25 01/10/25 10:46 10:36 10:43 - Today's Visit Information Type of service Follow-up Visit Follow-up Visit (Physician/[employer]CTION [employer]BER (Physician/[employer]CTION [employer]W [employer]BER ) ) Arrival Mode Wheelchair Wheelchair Transfer Assistance Other Other Transfer Assist (Other) 2 1 Patient Identification Verified (Name & Yes Yes ) Patient Requires Transmission-Based No No Precautions Vital Signs Temperature (97.8 F-99.1 F) 98.4 F 97.4 F L Temperature Source Temporal Temporal Pulse Rate (60-100) 62 53 L Pulse Location Monitor Monitor Respiratory Rate (12-18) 16 16 Respiratory rate source Observation Observation Oxygen Delivery Method Room Air Room Air Blood Pressure (90/60-120/80) 100/55 L 109/54 L Blood Pressure Mean 70 72 Source Monitor Monitor Position Sitting Blood Pressure Location Right Arm History Since Last Visit- (Skip if this is Patient's initial visit) Have you changed medications since your No last visit? Any new allergies or adverse reactions No Had a fall/change in ADL's that may No increase risk of falls Signs or symptoms of abuse and/or No neglect since last visit Have you been in the hospital since your No last visit? Has dressing in place as prescribed Yes Has compression in place as prescribed Yes Has offloadiing in place as prescribed N/A Experienced any changes in pain level or No management Left Footwear Surgical Shoe Slipper with pressure relief insole Right Footwear Surgical Shoe Slipper with pressure relief insole Pain Scale: 0-10 Numeric Is Patient Pain Free? Yes Yes Yes WC - Nurse 1 - General Ulcer Measurement Start: 12/27/24 10:45 Freq: Status: Active Protocol: Activity Type Activity Date Activity User E-sign Co-sign Detail Recorded Client Recorded Date Recorded By Document 12/27/24 10:46 [facility] [id number] 12/27/24 10:49 [facility] Document 01/03/25 10:36 [id number] 01/03/25 10:41 Document 01/10/25 10:43 [facility] [id number] 01/10/25 10:47 [facility] 12/27/24 01/03/25 01/10/25 10:46 10:36 10:43 Wound Center Nurse 1 #18- R MED ANGEL -Combined with other wound No No -Current Size (cm) - Length 2 1.7 1.8 -Current Size (cm) - Width 1.4 0.9 1 -Current Size (cm) - Depth 0.1 0.1 0.1 -Total Square Cm 2.8 1.53 1.8 -Date of Last Picture (Recall this 12/27/24 01/03/25 01/10/25 field) -Photo Taken Yes Yes -Epithelialization Small 1-33% -Tunneling No No -Undermining/Tunneling No No -Circular Undermining No No -Exudate Amt Medium Small Medium -Exudate Type Serosanguineous Serosanguineous Serosanguineous -Wound Margin Distinct, Distinct, Distinct, Outline Outline Outline Attached Attached Attached -Granulation Amt Medium (34-66%) Large (67-100%) Medium (34-66%) -Granulation Quality Red [place] Red -Slough/Fibrin Yes Yes -Necrosis Amt Medium (34-66%) Medium (34-66%) -Necrotic Tissue Type Adherent Slough Adherent Slough -Texture ([place]ul[place]-wound Skin Appearance) Assessed, Assessed Assessed Scarring -Moisture ([place]-wound Skin Appearance) Assessed Assessed,Dry/ Scaly -Color ([place]ul[place]-wound Skin Appearance) Assessed, Assessed Assessed Erythema -Temperature ([place]-wound Skin No Abnormality No Abnormality No Abnormality Appearance) (Pt Warm) (Pt Warm) (Pt Warm) -Tenderness on Palpation ([place]ul[place]-wound No No No Skin Appearance) -Ulcer Cleansing Soap and Water Soap and Water Soap and Water -Foul Odor after Cleansing No No No -Anesthetic Used 5% Lidocaine 5% Lidocaine 5% Lidocaine Gel Gel Gel 7-right plantar foot -Combined with other wound No No -Current Size (cm) - Length 1.2 0.1 0.1 -Current Size (cm) - Width 2 0.1 0.1 -Current Size (cm) - Depth 0.1 0.1 0.1 -Total Square Cm 2.4 0.01 0.01 -Date of Last Picture (Recall this 12/27/24 01/03/25 01/10/25 field) -Photo Taken Yes Yes -Epithelialization Small 1-33% Medium 34-66% -Tunneling No No -Undermining/Tunneling No No -Circular Undermining No No -Exudate Amt Medium Small Small -Exudate Type Serosanguineous Serosanguineous Sanguineous -Wound Margin Distinct, Thickened Distinct, Outline Outline Attached Attached -Granulation Amt Large (67-100%) Large (67-100%) Large (67-100%) -Granulation Quality [place] Red -Slough/Fibrin Yes Yes -Necrosis Amt Small (1-33%) Small (1-33%) -Necrotic Tissue Type Adherent Slough Adherent Slough -Texture ([place]ul[place]-wound Skin Appearance) Assessed, Assessed Assessed, Scarring Scarring -Moisture ([place]-wound Skin Appearance) Assessed,Dry/ Assessed Assessed,Dry/ Scaly Scaly -Color ([place]-wound Skin Appearance) Assessed Assessed Assessed -Temperature ([place]-wound Skin No Abnormality No Abnormality No Abnormality Appearance) (Pt Warm) (Pt Warm) (Pt Warm) -Tenderness on Palpation ([place]ul[place]-wound No No No Skin Appearance) -Ulcer Cleansing Soap and Water Soap and Water Soap and Water -Foul Odor after Cleansing No No No -Anesthetic Used 5% Lidocaine 5% Lidocaine 5% Lidocaine Gel Gel Gel Lower Limb Edema Present Yes Right Calf (cm) 35.8 Right Ankle (cm) 24.2 WC - Nurse 2 - General Ulcer CM Notes Start: 12/27/24 10:45 Freq: Status: Active Protocol: Activity Type Activity Date Activity User E-sign Co-sign Detail Recorded Client Recorded Date Recorded By Document 12/27/24 11:18 DS [id number] 12/27/24 11:21 DS Document 01/03/25 11:02 DS [id number] 01/03/25 11:10 DS Document 01/10/25 10:58 DS [id number] 01/10/25 11:04 DS 12/27/24 01/03/25 01/10/25 11:18 11:02 10:58 Wound Center Nurse 2 #18- R MED ANGEL -Time 11:18 11:05 10:58 -Correct Patient Yes Yes Yes -Correct Side, Site, Position Yes Yes Yes -Correct Procedure Yes Yes Yes -Procedure Performed Yes Yes Yes -Type of Procedure Debridement Debridement Debridement -Clinical Debridement Subcutaneous Subcutaneous Subcutaneous -Tissue Removed Subcutaneous Subcutaneous Subcutaneous -Post Debridement (cm) - Length 2.0 1.5 1.5 -Post Debridement (cm) - Width 1.5 1.1 1.2 -Post Debridement (cm) - Depth 0.1 0.1 0.1 -Total Square (Post) (cm) 3.00 1.65 1.80 -Area of Debridement (cm) - Length 2.0 1.5 1.5 -Area of Debridement (cm) - Width 1.5 1.1 1.2 -Total Square (Area) (cm) 3.00 1.65 1.80 -Tunneling No No No -Undermining/Tunneling No No No -Circular Undermining No No No -Wound/Ulcer Outcome Not Healed Not Healed Not Healed -Ulcer Cleansing Rinsed/ gauze Irrigated with Saline -Foul Odor after Cleansing No No No -Bioengineered Tissue No No No -Bleeding Controlled with Pressure Pressure Pressure -Treatment Response Procedure Procedure Tolerated Well Tolerated Well -Debridement - Subq, 1st 20sq cm No Yes Yes 7-right plantar foot -Time 11:18 11:06 10:58 -Correct Patient Yes Yes Yes -Correct Side, Site, Position Yes Yes Yes -Correct Procedure Yes Yes -Procedure Performed Yes No Yes -Type of Procedure Debridement Debridement -Clinical Debridement Subcutaneous Subcutaneous -Tissue Removed Subcutaneous Subcutaneous -Post Debridement (cm) - Length 2.1 0.8 -Post Debridement (cm) - Width 1.3 0.5 -Post Debridement (cm) - Depth 0.2 0.1 -Total Square (Post) (cm) 2.73 0.40 -Area of Debridement (cm) - Length 2.1 0.8 -Area of Debridement (cm) - Width 1.3 0.5 -Total Square (Area) (cm) 2.73 0.40 -Tunneling No No -Undermining/Tunneling No No -Circular Undermining No No -Wound/Ulcer Outcome Not Healed Healed- Not Healed Epithelialized -Ulcer Cleansing Rinsed/ gauze Irrigated with Saline -Foul Odor after Cleansing No No -Bioengineered Tissue No No -Bleeding Controlled with Pressure Pressure -Treatment Response Procedure Procedure Tolerated Well Tolerated Well -Debridement - Subq, 1st 20sq cm Yes No Pain Scale: 0-10 Numeric Is Patient Pain Free? Yes Yes Yes - Nurse 3 - General Ulcer D/C NN Start: 12/27/24 10:45 Freq: Status: Active Protocol: Activity Type Activity Date Activity User E-sign Co-sign Detail Recorded Client Recorded Date Recorded By Document 12/27/24 11:27 [facility] [id number] 12/27/24 11:28 BM Document 01/03/25 11:27 DS [id number] 01/03/25 11:29 DS Document 01/10/25 11:14 [facility] [id number] 01/10/25 11:16 [facility] 12/27/24 01/03/25 01/10/25 11:27 11:27 11:14 Wound Care Center Nurse 3 #18- R MED ANGEL -Ulcer Cleansing Rinsed/ Rinsed/ Irrigated with Irrigated with Saline Saline -Foul Odor after Cleansing No No -Primary Dressing Applied AMD Dressing Aquacel Extra Aquacel Extra 4x4,C Hydrogel -Primary Dressing Covered/Secured with Dry Gauze & Roll Gauze, Secured with Tape -Other Covering drsg per kw office technology instructor drsg per rn -AMD Dressing 4x4 1 -Aquacel Extra 1 1 -Hydrogel 1 7-right plantar foot -Ulcer Cleansing Rinsed/ Rinsed/ Irrigated with Irrigated with Saline Saline -Foul Odor after Cleansing No No -Primary Dressing Applied AMD Dressing Aquacel Extra 4x4,C Hydrogel -Other Dressing drsg per kw office technology instructor -Primary Dressing Covered/Secured with Dry Gauze & Roll Gauze, Secured with Tape -AMD Dressing 4x4 1 -Aquacel Extra 0 -Hydrogel 0 -Wound Comment(s) drsg per rn RLE -Multi-Layered Wrap Application Unna Boot - Right -Other applied per rn -Unna- Right (Qty applied) 1 LLE -Tubular Bandage Single Layer -Size of Tubigrip Used Size E -Size E ($) 1 -Other reapplied pts own single layer tubi BLE -Multi-Layered Wrap Application Unna Boot - Right -Tubular Bandage Double Layer -Size of Tubigrip Used Size E -Size E ($) 2 -Unna- Right (Qty applied) 1 Treatment Response Procedure Procedure Tolerated Well Tolerated Well Pain Scale: 0-10 Numeric Is Patient Pain Free? 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 Care [facility] Care Facility Facility Additional Wound Wound debrided: Right distal foot ulceration Laterality: Right Type of Debridement: Excisional debridement Anesthesia Used: 5% Lidocaine Gel Depth: Down to and including healthy tissue and in the subcutaneous layer Percentage of wound debrided: 100 Instrument Used: 3mm curette Tissue Removed: Bioburden and slough Severity: Fat Layer Exposed Amount of bleeding with debridement: Mild Bleeding Controlled with: Compression and gauze Patient tolerated procedure: Patient tolerated procedure well Charges/Coding Procedures Integumentary [id number]: [id number] Samina subq tissue 20 sq cm/< Assessment/Plan Assessment/Plan (1) Non-pressure chronic ulcer 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: CODE(S): L97.212 - Non-pressure chronic ulcer 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 (2) Venous stasis ulcer: CODE(S): I83.009 - Varicose veins of unspecified lower extremity with ulcer of unspecified site; L97.909 - Non-pressure chronic ulcer of unspecified part of unspecified lower leg with unspecified severity QUALIFIERS: Venous stasis ulcer site: calf Varicose vein presence: without varicose veins Laterality: right Non-pressure ulcer stage: with fat layer exposed Qualified Code(s): I87.2 - Venous insufficiency (chronic) (peripheral); L97.212 - Non-pressure chronic ulcer 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 (3) Non-pressure chronic ulcer of lower leg with fat layer exposed: CODE(S): L97.902 - Non-pressure chronic ulcer of unspecified part of unspecified lower leg with fat layer exposed QUALIFIERS: Laterality: right Qualified Code(s): L97.912 - Non- 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 (4) Non-pressure 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 foot with fat layer exposed: CODE(S): L97.512 - Non-pressure 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 foot with fat layer exposed (5) Venous stasis dermatitis of right lower extremity: CODE(S): I87.2 - Venous insufficiency (chronic) (peripheral) (6) Venous insufficiency (chronic) (peripheral): CODE(S): I87.2 - Venous insufficiency (chronic) (peripheral) (7) Peripheral vascular disease: CODE(S): I73.9 - Peripheral vascular disease, unspecified (8) Bilateral lower extremity edema: CODE(S): R60.0 - Localized edema (9) Debility: CODE(S): R53.81 - Other malaise (10) Tinea unguium: CODE(S): B35.1 - Tinea unguium PLAN: Plan This is an 85-year-old male with deformities in his right lower extremity and 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 He has ulcerations of the right distal lower extremity and right foot. The patient claims not to be diabetic. He has a history of venous and arterial disease. The patient is nonambulatory. We are to continue the use of moistened Aquacel Extra relative to the ulceration of the right medial calf and the right foot. Unna compression wrap will be applied to the right lower extremity, with intent to change twice weekly. Aquaphor has been recommended for topical use relative to the dry, scaly, eczematous epithelium on the right foot. Tubigrips are to be used for compression on the left lower extremity, and donned daily. The patient has been encouraged to elevate his lower extremities as much as possible. Elevation is to be to heart level, or higher. The patient has been encouraged to optimize his nutritional intake. The patient is to return in 1 week for reevaluation. Total time: 26 minutes
--- NOTE | 2025-01-18 10:15 | WC ---
PHOTO - RIGHT MED ANGEL 01-17-25
--- NOTE | 2025-01-20 12:50 | PCM.WC.HP ---
History of Present Illness Date of Service: 01/17/25 Chief Complaint: Chronic, non-healing, right lower extremity and foot ulcerations History of Wound: This is an 85-year-old male with chronic ulcerations, dermatitis, and excoriations in his right lower extremity and right foot. He has a history of chronic venous insufficiency. 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 The patient's care has been assumed from Dr. John Anna, who has relocated his practice of Podiatry. The patient has a history of edema in his lower extremities. 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 The patient is minimally ambulatory and only transfers from bed to wheelchair and wheelchair to bed. The patient is a resident of a prison. It is noted that the patient has previously undergone angioplasty and stent placement in the common iliac veins bilaterally, a procedure performed by Dr. Hossein Arvizu on July 09, 2023. FORMERLY [facility] Medical History Non-pressure chronic ulcer 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 Venous stasis ulcer Venous stasis dermatitis of right lower extremity Non-pressure chronic ulcer of lower leg with fat layer exposed Cellulitis of leg, right Debility Ulcer of right heel and midfoot with fat layer exposed Ulcer of left lower extremity with fat layer exposed Ulcer of right lower extremity with fat layer exposed Hypertension Diabetes Vascular dementia Hyperlipidemia Polyneuropathy Heart failure Peripheral vascular disease Home Medications Medication Instructions Recorded Last Taken Type atorvastatin 40 mg tablet 40 mg PO QHS 10/09/22 Unknown History cyanocobalamin (vitamin B-12) 500 500 mcg PO DAILY 10/09/22 Unknown History mcg tablet diphenhydramine 25 2 tab PO QHS PRN Pain 10/09/22 Unknown History mg-acetaminophen 500 mg tablet (Acetaminophen PM Extra Strength) docusate sodium 100 mg capsule 100 mg PO BID 10/09/22 Unknown History furosemide 40 mg tablet (Lasix) 40 mg PO DAILY 10/09/22 Unknown History gabapentin 300 mg capsule 300 mg PO TID 10/09/22 Unknown History magnesium hydroxide 400 mg/5 mL 30 ml PO DAILY PRN Constipation 10/09/22 Unknown History oral suspension (Milk of Magnesia) metformin 500 mg tablet,extended 500 mg PO DAILY 10/09/22 Unknown History release 24 hr multivitamin 1 tab PO DAILY 10/09/22 Unknown History polyethylene glycol 3350 17 gram 17 g PO DAILY 10/09/22 Unknown History oral powder packet (Miralax) sennosides 8.6 mg capsule (senna) 8.6 mg PO DAILY 10/09/22 Unknown History tamsulosin 0.4 mg capsule 0.8 mg PO QHS 10/09/22 Unknown History ascorbic acid (vitamin C) 500 mg mg PO 08/13/23 Unknown History capsule cholecalciferol (vitamin D3) 25 25 mcg PO DAILY 08/13/23 Unknown History mcg (1,000 unit) capsule clopidogrel 75 mg tablet (Plavix) 75 mg PO DAILY 08/13/23 Unknown History warfarin 5 mg tablet 9 mg PO DAILY 08/13/23 Unknown History zinc acetate 50 mg (zinc) capsule 50 mg PO DAILY 08/13/23 Unknown History Allergy/AdvReac Type Severity Reaction Status Date / Time No Known Allergies Allergy Verified 01/13/24 11:13 Family History Other CAD (coronary artery disease) Colon cancer Heart disease Hypertension Myocardial infarction Thyroid disorder Social History Smoking Status: Never smoker Physical Exam Const alert, oriented x3 and no apparent distress General Appearance: cooperative, comfortable and well developed Orientation / Consciousness: awake, oriented to person, oriented to place and oriented to time Exam Limitations: no limitations HEENT normocephalic and head/scalp atraumatic Head and Scalp: normal to inspection, normocephalic and atraumatic Face and Sinus: normal facial exam Nose: external nose normal External Ear: external ears normal Eyes EOMs intact bilaterally Resp normal respiratory effort, normal air movement, no retractions and no use of accessory muscles Effort and Inspection: able to speak in complete sentences Skin Wound Narrative: The ulceration on the distal portion of the patient's right midfoot appears to be healed and fully epithelialized. There is no sign of infection or cellulitis. There continues to be an area of dry, scaly, eczematous epithelium on the plantar aspect of the distal foot. Lipodermatosclerosis and hyperpigmentation are noted in the right gaiter area. Mild swelling and edema are noted in the patient's right lower extremity as well, though this continues to improve. A flexion contracture of the knee and an equinus contracture of the ankle with a varus hindfoot alignment are noted. A full-thickness ulceration is noted on the distal, medial right lower extremity. Ulcer margins are well beveled. There is a small amount of bioburden and nonviable tissue. There is no sign of infection or cellulitis. Dimensions are documented elsewhere. Neuro oriented x3, CN's II-XII intact bilaterally and moves all extremities Sensorium / Orientation: awake, alert, oriented to person, oriented to place and oriented to time Speech: speech normal Debridement Note Debridement Note Wound debrided: Right distal, medial lower extremity ulceration Laterality: Right Type of Debridement: Excisional debridement Anesthesia Used: 5% Lidocaine Gel Depth: Down to and including healthy tissue and in the subcutaneous layer Percentage of wound debrided: 100 Instrument Used: 3mm curette Tissue Removed: Bioburden and nonviable tissue Severity: Fat Layer Exposed Amount of bleeding with debridement: Mild Bleeding Controlled with: Compression and gauze Patient tolerated procedure: Patient tolerated procedure well Post-Debridement Measurements and Additional Note: Post-Debridement Measurements/Treatment - Nurse 1 - General Ulcer Assessment Start: 12/27/24 10:45 Freq: Status: Active Protocol: MARTA Activity Type Activity Date Activity User E-sign Co-sign Detail Recorded Client Recorded Date Recorded By Document 12/27/24 10:46 [facility] [id number] 12/27/24 10:49 [facility] Document 01/03/25 10:36 [id number] 01/03/25 10:41 Document 01/10/25 10:43 [facility] [id number] 01/10/25 10:47 [facility] Document 01/17/25 10:31 [facility] [id number] 01/17/25 10:47 [facility] 12/27/24 01/03/25 01/10/25 10:46 10:36 10:43 - Today's Visit Information Type of service Follow-up Visit Follow-up Visit (Physician/SPECIAL POPULATION PARAPROFESSIONAL (Physician/SPECIAL POPULATION PARAPROFESSIONAL ) ) Arrival Mode Wheelchair Wheelchair Transfer Assistance Other Other Transfer Assist (Other) 2 1 Patient Identification Verified (Name & Yes Yes ) Patient Requires Transmission-Based No No Precautions Vital Signs Temperature (97.8 F-99.1 F) 98.4 F 97.4 F L Temperature Source Temporal Temporal Pulse Rate (60-100) 62 53 L Pulse Location Monitor Monitor Respiratory Rate (12-18) 16 16 Respiratory rate source Observation Observation Oxygen Delivery Method Room Air Room Air Blood Pressure (90/60-120/80) 100/55 L 109/54 L Blood Pressure Mean 70 72 Source Monitor Monitor Position Sitting Blood Pressure Location Right Arm History Since Last Visit- (Skip if this is Patient's initial visit) Have you changed medications since your No last visit? Any new allergies or adverse reactions No Had a fall/change in ADL's that may No increase risk of falls Signs or symptoms of abuse and/or No neglect since last visit Have you been in the hospital since your No last visit? Has dressing in place as prescribed Yes Has compression in place as prescribed Yes Has offloadiing in place as prescribed N/A Experienced any changes in pain level or No management Left Footwear Surgical Shoe Slipper with pressure relief insole Right Footwear Surgical Shoe Slipper with pressure relief insole Pain Scale: 0-10 Numeric Is Patient Pain Free? Yes Yes Yes 01/17/25 10:31 - Today's Visit Information Type of service Follow-up Visit (Physician/SPECIAL POPULATION PARAPROFESSIONAL ) Arrival Mode Wheelchair Transfer Assistance Other Transfer Assist (Other) 1 Patient Identification Verified (Name & Yes ) Patient Requires Transmission-Based No Precautions Vital Signs Temperature (97.8 F-99.1 F) Temperature Source Temporal Pulse Rate (60-100) Pulse Location Monitor Respiratory Rate (12-18) Respiratory rate source Observation Oxygen Delivery Method Room Air Blood Pressure (90/60-120/80) Blood Pressure Mean Source Monitor Position Sitting Blood Pressure Location History Since Last Visit- (Skip if this is Patient's initial visit) Have you changed medications since your No last visit? Any new allergies or adverse reactions No Had a fall/change in ADL's that may No increase risk of falls Signs or symptoms of abuse and/or No neglect since last visit Have you been in the hospital since your No last visit? Has dressing in place as prescribed No Has compression in place as prescribed No Has offloadiing in place as prescribed N/A Experienced any changes in pain level or No management Left Footwear Surgical Shoe with pressure relief insole Right Footwear Surgical Shoe with pressure relief insole Pain Scale: 0-10 Numeric Is Patient Pain Free? Yes - Nurse 1 - General Ulcer Measurement Start: 12/27/24 10:45 Freq: Status: Active Protocol: Activity Type Activity Date Activity User E-sign Co-sign Detail Recorded Client Recorded Date Recorded By Document 12/27/24 10:46 BMF [id number] 12/27/24 10:49 BMF Document 01/03/25 10:36 KW [id number] 01/03/25 10:41 KW Document 01/10/25 10:43 BMF [id number] 01/10/25 10:47 BM Document 01/17/25 10:31 BMF [id number] 01/17/25 10:47 BMF 12/27/24 01/03/25 01/10/25 10:46 10:36 10:43 Wound Center Nurse 1 #18- R MED ANGEL -Combined with other wound No No -Current Size (cm) - Length 2 1.7 1.8 -Current Size (cm) - Width 1.4 0.9 1 -Current Size (cm) - Depth 0.1 0.1 0.1 -Total Square Cm 2.8 1.53 1.8 -Date of Last Picture (Recall this 12/27/24 01/03/25 01/10/25 field) -Photo Taken Yes Yes -Epithelialization Small 1-33% -Tunneling No No -Undermining/Tunneling No No -Circular Undermining No No -Exudate Amt Medium Small Medium -Exudate Type Serosanguineous Serosanguineous Serosanguineous -Wound Margin Distinct, Distinct, Distinct, Outline Outline Outline Attached Attached Attached -Granulation Amt Medium (34-66%) Large (67-100%) Medium (34-66%) -Granulation Quality Red [place] Red -Slough/Fibrin Yes Yes -Necrosis Amt Medium (34-66%) Medium (34-66%) -Necrotic Tissue Type Adherent Slough Adherent Slough -Texture (Yul[place]-wound Skin Appearance) Assessed, Assessed Assessed Scarring -Moisture ([place]ul[place]-wound Skin Appearance) Assessed Assessed,Dry/ Scaly -Color ([place]ul[place]-wound Skin Appearance) Assessed, Assessed Assessed Erythema -Temperature ([place]ul[place]-wound Skin No Abnormality No Abnormality No Abnormality Appearance) (Pt Warm) (Pt Warm) (Pt Warm) -Tenderness on Palpation (Yul[place]-wound No No No Skin Appearance) -Ulcer Cleansing Soap and Water Soap and Water Soap and Water -Foul Odor after Cleansing No No No -Anesthetic Used 5% Lidocaine 5% Lidocaine 5% Lidocaine Gel Gel Gel 7-right plantar foot -Combined with other wound No No -Current Size (cm) - Length 1.2 0.1 0.1 -Current Size (cm) - Width 2 0.1 0.1 -Current Size (cm) - Depth 0.1 0.1 0.1 -Total Square Cm 2.4 0.01 0.01 -Date of Last Picture (Recall this 12/27/24 01/03/25 01/10/25 field) -Photo Taken Yes Yes -Epithelialization Small 1-33% Medium 34-66% -Tunneling No No -Undermining/Tunneling No No -Circular Undermining No No -Exudate Amt Medium Small Small -Exudate Type Serosanguineous Serosanguineous Sanguineous -Wound Margin Distinct, Thickened Distinct, Outline Outline Attached Attached -Granulation Amt Large (67-100%) Large (67-100%) Large (67-100%) -Granulation Quality [place] Red -Slough/Fibrin Yes Yes -Necrosis Amt Small (1-33%) Small (1-33%) -Necrotic Tissue Type Adherent Slough Adherent Slough -Texture (Yuliet-wound Skin Appearance) Assessed, Assessed Assessed, Scarring Scarring -Moisture (Yul[place]-wound Skin Appearance) Assessed,Dry/ Assessed Assessed,Dry/ Scaly Scaly -Color (Yul[place]-wound Skin Appearance) Assessed Assessed Assessed -Temperature (Yul[place]-wound Skin No Abnormality No Abnormality No Abnormality Appearance) (Pt Warm) (Pt Warm) (Pt Warm) -Tenderness on Palpation (Yuliet-wound No No No Skin Appearance) -Ulcer Cleansing Soap and Water Soap and Water Soap and Water -Foul Odor after Cleansing No No No -Anesthetic Used 5% Lidocaine 5% Lidocaine 5% Lidocaine Gel Gel Gel -Wound Comment(s) Lower Limb Edema Present Yes Right Calf (cm) 35.8 Right Ankle (cm) 24.2 01/17/25 10:31 Wound Center Nurse 1 #18- R MED ANGEL -Combined with other wound No -Current Size (cm) - Length 1.9 -Current Size (cm) - Width 1 -Current Size (cm) - Depth 0.1 -Total Square Cm 1.9 -Date of Last Picture (Recall this 01/17/25 field) -Photo Taken Yes -Epithelialization -Tunneling No -Undermining/Tunneling No -Circular Undermining No -Exudate Amt Medium -Exudate Type Serosanguineous -Wound Margin Distinct, Outline Attached -Granulation Amt Large (67-100%) -Granulation Quality Red -Slough/Fibrin Yes -Necrosis Amt Small (1-33%) -Necrotic Tissue Type Adherent Slough -Texture (Yuliet-wound Skin Appearance) Assessed, Scarring -Moisture (Yul[place]-wound Skin Appearance) Assessed,Dry/ Scaly -Color (Yuliet-wound Skin Appearance) Assessed -Temperature ([place]ul[place]-wound Skin No Abnormality Appearance) (Pt Warm) -Tenderness on Palpation (Yuliet-wound No Skin Appearance) -Ulcer Cleansing Soap and Water -Foul Odor after Cleansing No -Anesthetic Used 5% Lidocaine Gel 7-right plantar foot -Combined with other wound No -Current Size (cm) - Length 0.1 -Current Size (cm) - Width 0.1 -Current Size (cm) - Depth 0.1 -Total Square Cm 0.01 -Date of Last Picture (Recall this 01/17/25 field) -Photo Taken Yes -Epithelialization Small 1-33% -Tunneling No -Undermining/Tunneling No -Circular Undermining No -Exudate Amt Medium -Exudate Type Serosanguineous -Wound Margin Distinct, Outline Attached -Granulation Amt Large (67-100%) -Granulation Quality Red -Slough/Fibrin No -Necrosis Amt -Necrotic Tissue Type -Texture (Yuliet-wound Skin Appearance) Assessed, Scarring -Moisture (Yuliet-wound Skin Appearance) Assessed, Maceration,Dry/ Scaly -Color (Yuliet-wound Skin Appearance) Assessed -Temperature ([place]ul[place]-wound Skin No Abnormality Appearance) (Pt Warm) -Tenderness on Palpation (Yuliet-wound No Skin Appearance) -Ulcer Cleansing Soap and Water -Foul Odor after Cleansing No -Anesthetic Used 5% Lidocaine Gel -Wound Comment(s) ^ WHITE, MOIST AND MACERATED Lower Limb Edema Present Right Calf (cm) Right Ankle (cm) WC - Nurse 2 - General Ulcer CM Notes Start: 12/27/24 10:45 Freq: Status: Active Protocol: Activity Type Activity Date Activity User E-sign Co-sign Detail Recorded Client Recorded Date Recorded By Document 12/27/24 11:18 DS [id number] 12/27/24 11:21 DS Document 01/03/25 11:02 DS [id number] 01/03/25 11:10 DS Document 01/10/25 10:58 DS [id number] 01/10/25 11:04 DS Document 01/17/25 11:14 DS [id number] 01/17/25 11:21 DS 12/27/24 01/03/25 01/10/25 11:18 11:02 10:58 Wound Center Nurse 2 #18- R MED ANGEL -Time 11:18 11:05 10:58 -Correct Patient Yes Yes Yes -Correct Side, Site, Position Yes Yes Yes -Correct Procedure Yes Yes Yes -Procedure Performed Yes Yes Yes -Type of Procedure Debridement Debridement Debridement -Clinical Debridement Subcutaneous Subcutaneous Subcutaneous -Tissue Removed Subcutaneous Subcutaneous Subcutaneous -Post Debridement (cm) - Length 2.0 1.5 1.5 -Post Debridement (cm) - Width 1.5 1.1 1.2 -Post Debridement (cm) - Depth 0.1 0.1 0.1 -Total Square (Post) (cm) 3.00 1.65 1.80 -Area of Debridement (cm) - Length 2.0 1.5 1.5 -Area of Debridement (cm) - Width 1.5 1.1 1.2 -Total Square (Area) (cm) 3.00 1.65 1.80 -Tunneling No No No -Undermining/Tunneling No No No -Circular Undermining No No No -Wound/Ulcer Outcome Not Healed Not Healed Not Healed -Ulcer Cleansing Rinsed/ gauze Irrigated with Saline -Foul Odor after Cleansing No No No -Bioengineered Tissue No No No -Bleeding Controlled with Pressure Pressure Pressure -Treatment Response Procedure Procedure Tolerated Well Tolerated Well -Debridement - Subq, 1st 20sq cm No Yes Yes 7-right plantar foot -Time 11:18 11:06 10:58 -Correct Patient Yes Yes Yes -Correct Side, Site, Position Yes Yes Yes -Correct Procedure Yes Yes -Procedure Performed Yes No Yes -Type of Procedure Debridement Debridement -Clinical Debridement Subcutaneous Subcutaneous -Tissue Removed Subcutaneous Subcutaneous -Post Debridement (cm) - Length 2.1 0.8 -Post Debridement (cm) - Width 1.3 0.5 -Post Debridement (cm) - Depth 0.2 0.1 -Total Square (Post) (cm) 2.73 0.40 -Area of Debridement (cm) - Length 2.1 0.8 -Area of Debridement (cm) - Width 1.3 0.5 -Total Square (Area) (cm) 2.73 0.40 -Tunneling No No -Undermining/Tunneling No No -Circular Undermining No No -Wound/Ulcer Outcome Not Healed Healed- Not Healed Epithelialized -Ulcer Cleansing Rinsed/ gauze Irrigated with Saline -Foul Odor after Cleansing No No -Bioengineered Tissue No No -Bleeding Controlled with Pressure Pressure -Treatment Response Procedure Procedure Tolerated Well Tolerated Well -Debridement - Subq, 1st 20sq cm Yes No Pain Scale: 0-10 Numeric Is Patient Pain Free? Yes Yes Yes 01/17/25 11:14 Wound Center Nurse 2 #18- R MED ANGEL -Time 11:14 -Correct Patient Yes -Correct Side, Site, Position Yes -Correct Procedure Yes -Procedure Performed Yes -Type of Procedure Debridement -Clinical Debridement Subcutaneous -Tissue Removed Subcutaneous -Post Debridement (cm) - Length 1.7 -Post Debridement (cm) - Width 0.8 -Post Debridement (cm) - Depth 0.1 -Total Square (Post) (cm) 1.36 -Area of Debridement (cm) - Length 1.7 -Area of Debridement (cm) - Width 0.8 -Total Square (Area) (cm) 1.36 -Tunneling No -Undermining/Tunneling No -Circular Undermining No -Wound/Ulcer Outcome Not Healed -Ulcer Cleansing GAUZE -Foul Odor after Cleansing No -Bioengineered Tissue No -Bleeding Controlled with Pressure -Treatment Response Procedure Tolerated Well -Debridement - Subq, 1st 20sq cm Yes 7-right plantar foot -Time 11:15 -Correct Patient Yes -Correct Side, Site, Position Yes -Correct Procedure -Procedure Performed No -Type of Procedure -Clinical Debridement -Tissue Removed -Post Debridement (cm) - Length -Post Debridement (cm) - Width -Post Debridement (cm) - Depth -Total Square (Post) (cm) -Area of Debridement (cm) - Length -Area of Debridement (cm) - Width -Total Square (Area) (cm) -Tunneling -Undermining/Tunneling -Circular Undermining -Wound/Ulcer Outcome Healed- Epithelialized -Ulcer Cleansing -Foul Odor after Cleansing -Bioengineered Tissue -Bleeding Controlled with -Treatment Response -Debridement - Subq, 1st 20sq cm Pain Scale: 0-10 Numeric Is Patient Pain Free? Yes WC - Nurse 3 - General Ulcer D/C NN Start: 12/27/24 10:45 Freq: Status: Active Protocol: Activity Type Activity Date Activity User E-sign Co-sign Detail Recorded Client Recorded Date Recorded By Document 12/27/24 11:27 BMF [id number] 12/27/24 11:28 BMF Document 01/03/25 11:27 DS [id number] 01/03/25 11:29 DS Document 01/10/25 11:14 BMF [id number] 01/10/25 11:16 BMF Document 01/17/25 16:18 KW [id number] 01/17/25 16:19 KW 12/27/24 01/03/25 01/10/25 11:27 11:27 11:14 Wound Care Center Nurse 3 #18- R MED ANGEL -Ulcer Cleansing Rinsed/ Rinsed/ Irrigated with Irrigated with Saline Saline -Foul Odor after Cleansing No No -Primary Dressing Applied AMD Dressing Aquacel Extra Aquacel Extra 4x4,C Hydrogel -Primary Dressing Covered/Secured with Dry Gauze & Roll Gauze, Secured with Tape -Other Covering drsg per kw retail service technician drsg per sinai rn -AMD Dressing 4x4 1 -Aquacel Extra 1 1 -Hydrogel 1 7-right plantar foot -Ulcer Cleansing Rinsed/ Rinsed/ Irrigated with Irrigated with Saline Saline -Foul Odor after Cleansing No No -Primary Dressing Applied AMD Dressing Aquacel Extra 4x4,C Hydrogel -Other Dressing drsg per kw retail service technician -Primary Dressing Covered/Secured with Dry Gauze & Roll Gauze, Secured with Tape -AMD Dressing 4x4 1 -Aquacel Extra 0 -Hydrogel 0 -Wound Comment(s) drsg per sinai rn RLE -Multi-Layered Wrap Application Unna Boot - Right -Other applied per sinai rn -Unna- Right (Qty applied) 1 LLE -Tubular Bandage Single Layer -Size of Tubigrip Used Size E -Size E ($) 1 -Other reapplied pts own single layer tubi BLE -Multi-Layered Wrap Application Unna Boot - Right -Tubular Bandage Double Layer -Size of Tubigrip Used Size E -Size E ($) 2 -Unna- Right (Qty applied) 1 Treatment Response Procedure Procedure Tolerated Well Tolerated Well Pain Scale: 0-10 Numeric Is Patient Pain Free? Yes Yes Yes WC - Visit Discharge Discharge Condition Stable Stable Stable Ambulatory Status Wheelchair Ambulatory, Wheelchair Walker, Wheelchair Transportation ecf [facility] transport ecf Medication Reconcilliation completed & provided to patient/care provider Clinical Summary of Care Provided Facility [facility] Facility 01/17/25 16:18 Wound Care Center Nurse 3 #18- R MED ANGEL -Ulcer Cleansing -Foul Odor after Cleansing -Primary Dressing Applied Aquacel Extra -Primary Dressing Covered/Secured with -Other Covering -AMD Dressing 4x4 -Aquacel Extra 1 -Hydrogel 7-right plantar foot -Ulcer Cleansing -Foul Odor after Cleansing -Primary Dressing Applied -Other Dressing aquacel extra -Primary Dressing Covered/Secured with Dry Gauze & Roll Gauze, Secured with Tape -AMD Dressing 4x4 -Aquacel Extra -Hydrogel -Wound Comment(s) RLE -Multi-Layered Wrap Application Unna Boot - Right -Other -Unna- Right (Qty applied) 1 LLE -Tubular Bandage -Size of Tubigrip Used -Size E ($) -Other BLE -Multi-Layered Wrap Application -Tubular Bandage -Size of Tubigrip Used -Size E ($) -Unna- Right (Qty applied) Treatment Response Pain Scale: 0-10 Numeric Is Patient Pain Free? Yes WC - Visit Discharge Discharge Condition Stable Ambulatory Status Wheelchair Transportation Medication Reconcilliation completed & No provided to patient/care provider Clinical Summary of Care Provided Yes Facility Type Additional Wound Tissue Removed: Bioburden and slough Charges/Coding Procedures Integumentary [id number]: [id number] Samina subq tissue 20 sq cm/< Assessment/Plan Assessment/Plan (1) Non-pressure chronic ulcer 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: CODE(S): L97.212 - Non-pressure chronic ulcer 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 (2) Venous stasis ulcer: CODE(S): I83.009 - Varicose veins of unspecified lower extremity with ulcer of unspecified site; L97.909 - Non-pressure chronic ulcer of unspecified part of unspecified lower leg with unspecified severity QUALIFIERS: Venous stasis ulcer site: calf Varicose vein presence: without varicose veins Laterality: right Non-pressure ulcer stage: with fat layer exposed Qualified Code(s): I87.2 - Venous insufficiency (chronic) (peripheral); L97.212 - Non-pressure chronic ulcer 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 (3) Non-pressure chronic ulcer of lower leg with fat layer exposed: CODE(S): L97.902 - Non-pressure chronic ulcer of unspecified part of unspecified lower leg with fat layer exposed QUALIFIERS: Laterality: right Qualified Code(s): L97.912 - Non-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 (4) Non-pressure 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 foot with fat layer exposed: CODE(S): L97.512 - Non-pressure 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 foot with fat layer exposed (5) Venous stasis dermatitis of right lower extremity: CODE(S): I87.2 - Venous insufficiency (chronic) (peripheral) (6) Venous insufficiency (chronic) (peripheral): CODE(S): I87.2 - Venous insufficiency (chronic) (peripheral) (7) Peripheral vascular disease: CODE(S): I73.9 - Peripheral vascular disease, unspecified (8) Bilateral lower extremity edema: CODE(S): R60.0 - Localized edema (9) Debility: CODE(S): R53.81 - Other malaise (10) Tinea unguium: CODE(S): B35.1 - Tinea unguium PLAN: Plan This is an 85-year-old male with deformities in his right lower extremity and 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 A full-thickness ulceration remains on the distal right medial calf. The patient claims not to be diabetic. He has a history of venous and arterial disease. The patient is nonambulatory. We are to continue the use of moistened Aquacel Extra relative to the ulceration of the right medial calf. An [place]na compression wrap will be applied to the right lower extremity, with intent to change twice weekly. Aquaphor has been recommended for topical use relative to the dry, scaly, eczematous epithelium on the right foot. Tubigrips are to be used for compression on the left lower extremity, and donned daily. The patient has been encouraged to elevate his lower extremities as much as possible. Elevation is to be to heart level, or higher. The patient has been encouraged to optimize his nutritional intake. The patient is to return in 1 week for reevaluation. Total time: 24 minutes
[2025-01-24 10:44] VITALS: BP 93/50; PULSE 76; RESP 18; TEMP 35.8
--- NOTE | 2025-01-25 13:19 | WC ---
PHOTO-RIGHT ANGEL 01/24/25
--- NOTE | 2025-01-25 20:43 | PCM.WC.HP ---
History of Present Illness Date of Service: 01/24/25 Chief Complaint: Chronic, non-healing, right lower extremity and foot ulcerations History of Wound: This is an 85-year-old male with chronic ulcerations, dermatitis, and excoriations in his right lower extremity and right foot. He has a history of chronic venous insufficiency. 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 The patient's care has been assumed from Dr. John Anna, who has relocated his practice of Podiatry. The patient has a history of edema in his lower extremities. 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 The patient is minimally ambulatory and only transfers from bed to wheelchair and wheelchair to bed. The patient is a resident of a senior care. It is noted that the patient has previously undergone angioplasty and stent placement in the common iliac veins bilaterally, a procedure performed by Dr. Hossein Arvizu on July 09, 2023. [facility] Medical History Non-pressure chronic ulcer 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 Venous stasis ulcer Venous stasis dermatitis of right lower extremity Non-pressure chronic ulcer of lower leg with fat layer exposed Cellulitis of leg, right Debility Ulcer of right heel and midfoot with fat layer exposed Ulcer of left lower extremity with fat layer exposed Ulcer of right lower extremity with fat layer exposed Hypertension Diabetes Vascular dementia Hyperlipidemia Polyneuropathy Heart failure Peripheral vascular disease Home Medications Medication Instructions Recorded Last Taken Type atorvastatin 40 mg tablet 40 mg PO QHS 10/09/22 Unknown History cyanocobalamin (vitamin B-12) 500 500 mcg PO DAILY 10/09/22 Unknown History mcg tablet diphenhydramine 25 2 tab PO QHS PRN Pain 10/09/22 Unknown History mg-acetaminophen 500 mg tablet (Acetaminophen PM Extra Strength) docusate sodium 100 mg capsule 100 mg PO BID 10/09/22 Unknown History furosemide 40 mg tablet (Lasix) 40 mg PO DAILY 10/09/22 Unknown History gabapentin 300 mg capsule 300 mg PO TID 10/09/22 Unknown History magnesium hydroxide 400 mg/5 mL 30 ml PO DAILY PRN Constipation 10/09/22 Unknown History oral suspension (Milk of Magnesia) metformin 500 mg tablet,extended 500 mg PO DAILY 10/09/22 Unknown History release 24 hr multivitamin 1 tab PO DAILY 10/09/22 Unknown History polyethylene glycol 3350 17 gram 17 g PO DAILY 10/09/22 Unknown History oral powder packet (Miralax) sennosides 8.6 mg capsule (senna) 8.6 mg PO DAILY 10/09/22 Unknown History tamsulosin 0.4 mg capsule 0.8 mg PO QHS 10/09/22 Unknown History ascorbic acid (vitamin C) 500 mg mg PO 08/13/23 Unknown History capsule cholecalciferol (vitamin D3) 25 25 mcg PO DAILY 08/13/23 Unknown History mcg (1,000 unit) capsule clopidogrel 75 mg tablet (Plavix) 75 mg PO DAILY 08/13/23 Unknown History warfarin 5 mg tablet 9 mg PO DAILY 08/13/23 Unknown History zinc acetate 50 mg (zinc) capsule 50 mg PO DAILY 08/13/23 Unknown History Allergy/AdvReac Type Severity Reaction Status Date / Time No Known Allergies Allergy Verified 01/13/24 11:13 Family History Other CAD (coronary artery disease) Colon cancer Heart disease Hypertension Myocardial infarction Thyroid disorder Social History Smoking Status: Never smoker Physical Exam Const alert, oriented x3 and no apparent distress General Appearance: cooperative, comfortable and well developed Orientation / Consciousness: awake, oriented to person, oriented to place and oriented to time Exam Limitations: no limitations HEENT normocephalic and head/scalp atraumatic Head and Scalp: normal to inspection, normocephalic and atraumatic Face and Sinus: normal facial exam Nose: external nose normal External Ear: external ears normal Eyes EOMs intact bilaterally Resp normal respiratory effort, normal air movement, no retractions and no use of accessory muscles Effort and Inspection: able to speak in complete sentences Skin Wound Narrative: The ulceration on the distal portion of the patient's right midfoot remains healed and fully epithelialized. There is no sign of infection or cellulitis. There continues to be an area of dry, scaly, eczematous epithelium on the plantar aspect of the distal foot. Lipodermatosclerosis, eczematous dermatitis, and hyperpigmentation are noted in the right gaiter area. Mild swelling and edema are noted in the patient's right lower extremity as well, though this continues to improve. A flexion contracture of the knee and an equinus contracture of the ankle with a varus hindfoot alignment are noted. A full-thickness ulceration is noted on the distal, medial right lower extremity. Ulcer margins are well beveled. There is a small amount of bioburden and nonviable tissue. There is no sign of infection or cellulitis. The ulceration is smaller, and dimensions are documented elsewhere. There is evidence of early peripheral epithelialization. Neuro oriented x3, CN's II-XII intact bilaterally and moves all extremities Sensorium / Orientation: awake, alert, oriented to person, oriented to place and oriented to time Speech: speech normal Debridement Note Debridement Note Wound debrided: Right distal, medial lower extremity ulceration Laterality: Right Type of Debridement: Excisional debridement Anesthesia Used: 5% Lidocaine Gel Depth: Down to and including healthy tissue and in the subcutaneous layer Percentage of wound debrided: 100 Instrument Used: 5mm curette Tissue Removed: Bioburden and nonviable tissue Severity: Fat Layer Exposed Amount of bleeding with debridement: Mild Bleeding Controlled with: Compression and gauze Patient tolerated procedure: Patient tolerated procedure well Post-Debridement Measurements and Additional Note: Post-Debridement Measurements/Treatment - Nurse 1 - General Ulcer Assessment Start: 12/27/24 10:45 Freq: Status: Active Protocol: MARTA Activity Type Activity Date Activity User E-sign Co-sign Detail Recorded Client Recorded Date Recorded By Document 12/27/24 10:46 [facility] [id number] 12/27/24 10:49 [facility] Document 01/03/25 10:36 [id number] 01/03/25 10:41 Document 01/10/25 10:43 [facility] [id number] 01/10/25 10:47 [facility] Document 01/17/25 10:31 [facility] [id number] 01/17/25 10:47 [facility] Document 01/24/25 10:44 KW [id number] 01/24/25 10:51 KW 12/27/24 01/03/25 01/10/25 10:46 10:36 10:43 - Today's Visit Information Type of service Follow-up Visit Follow-up Visit (Physician/CONTENT ENGINEER (Physician/CONTENT ENGINEER ) ) Arrival Mode Wheelchair Wheelchair Transfer Assistance Other Other Transfer Assist (Other) 2 1 Patient Identification Verified (Name & Yes Yes ) Patient Requires Transmission-Based No No Precautions Vital Signs Temperature (97.8 F-99.1 F) 98.4 F 97.4 F L Temperature Source Temporal Temporal Pulse Rate (60-100) 62 53 L Pulse Location Monitor Monitor Respiratory Rate (12-18) 16 16 Respiratory rate source Observation Observation Oxygen Delivery Method Room Air Room Air Blood Pressure (90/60-120/80) 100/55 L 109/54 L Blood Pressure Mean 70 72 Source Monitor Monitor Position Sitting Blood Pressure Location Right Arm History Since Last Visit- (Skip if this is Patient's initial visit) Have you changed medications since your No last visit? Any new allergies or adverse reactions No Had a fall/change in ADL's that may No increase risk of falls Signs or symptoms of abuse and/or No neglect since last visit Have you been in the hospital since your No last visit? Has dressing in place as prescribed Yes Has compression in place as prescribed Yes Has offloadiing in place as prescribed N/A Experienced any changes in pain level or No management Left Footwear Surgical Shoe Slipper with pressure relief insole Right Footwear Surgical Shoe Slipper with pressure relief insole Pain Scale: 0-10 Numeric Is Patient Pain Free? Yes Yes Yes 01/17/25 01/24/25 10:31 10:44 WC - Today's Visit Information Type of service Follow-up Visit Follow-up Visit (Physician/CONTENT ENGINEER (Physician/CONTENT ENGINEER ) ) Arrival Mode Wheelchair Wheelchair Transfer Assistance Other Manual,Other Transfer Assist (Other) 1 Patient Identification Verified (Name & Yes Yes ) Patient Requires Transmission-Based No Precautions Vital Signs Temperature (97.8 F-99.1 F) 96.5 F L Temperature Source Temporal Temporal Pulse Rate (60-100) 76 Pulse Location Monitor Monitor Respiratory Rate (12-18) 18 Respiratory rate source Observation Observation Oxygen Delivery Method Room Air Room Air Blood Pressure (90/60-120/80) 93/50 L Blood Pressure Mean 64 Source Monitor Position Sitting Blood Pressure Location History Since Last Visit- (Skip if this is Patient's initial visit) Have you changed medications since your No No last visit? Any new allergies or adverse reactions No No Had a fall/change in ADL's that may No No increase risk of falls Signs or symptoms of abuse and/or No No neglect since last visit Have you been in the hospital since your No No last visit? Has dressing in place as prescribed No Yes Has compression in place as prescribed No Yes Has offloadiing in place as prescribed N/A N/A Experienced any changes in pain level or No No management Left Footwear Surgical Shoe Surgical Shoe with pressure with pressure relief insole relief insole Right Footwear Surgical Shoe Surgical Shoe with pressure with pressure relief insole relief insole Pain Scale: 0-10 Numeric Is Patient Pain Free? Yes Yes WC - Nurse 1 - General Ulcer Measurement Start: 12/27/24 10:45 Freq: Status: Active Protocol: Activity Type Activity Date Activity User E-sign Co-sign Detail Recorded Client Recorded Date Recorded By Document 12/27/24 10:46 [facility] [id number] 12/27/24 10:49 [facility] Document 01/03/25 10:36 KW [id number] 01/03/25 10:41 KW Document 01/10/25 10:43 [facility] [id number] 01/10/25 10:47 [facility] Document 01/17/25 10:31 [facility] [id number] 01/17/25 10:47 [facility] Document 01/24/25 10:44 KW [id number] 01/24/25 10:51 KW 12/27/24 01/03/25 01/10/25 10:46 10:36 10:43 Wound Center Nurse 1 #18- R MED ANGEL -Combined with other wound No No -Current Size (cm) - Length 2 1.7 1.8 -Current Size (cm) - Width 1.4 0.9 1 -Current Size (cm) - Depth 0.1 0.1 0.1 -Total Square Cm 2.8 1.53 1.8 -Date of Last Picture (Recall this 12/27/24 01/03/25 01/10/25 field) -Photo Taken Yes Yes -Epithelialization Small 1-33% -Tunneling No No -Undermining/Tunneling No No -Circular Undermining No No -Exudate Amt Medium Small Medium -Exudate Type Serosanguineous Serosanguineous Serosanguineous -Wound Margin Distinct, Distinct, Distinct, Outline Outline Outline Attached Attached Attached -Granulation Amt Medium (34-66%) Large (67-100%) Medium (34-66%) -Granulation Quality Red Roxton Red -Slough/Fibrin Yes Yes -Necrosis Amt Medium (34-66%) Medium (34-66%) -Necrotic Tissue Type Adherent Slough Adherent Slough -Texture (Yuliet-wound Skin Appearance) Assessed, Assessed Assessed Scarring -Moisture (Yuliet-wound Skin Appearance) Assessed Assessed,Dry/ Scaly -Color (Yuliet-wound Skin Appearance) Assessed, Assessed Assessed Erythema -Temperature (Yuliet-wound Skin No Abnormality No Abnormality No Abnormality Appearance) (Pt Warm) (Pt Warm) (Pt Warm) -Tenderness on Palpation (Yuliet-wound No No No Skin Appearance) -Ulcer Cleansing Soap and Water Soap and Water Soap and Water -Foul Odor after Cleansing No No No -Anesthetic Used 5% Lidocaine 5% Lidocaine 5% Lidocaine Gel Gel Gel 7-right plantar foot -Combined with other wound No No -Current Size (cm) - Length 1.2 0.1 0.1 -Current Size (cm) - Width 2 0.1 0.1 -Current Size (cm) - Depth 0.1 0.1 0.1 -Total Square Cm 2.4 0.01 0.01 -Date of Last Picture (Recall this 12/27/24 01/03/25 01/10/25 field) -Photo Taken Yes Yes -Epithelialization Small 1-33% Medium 34-66% -Tunneling No No -Undermining/Tunneling No No -Circular Undermining No No -Exudate Amt Medium Small Small -Exudate Type Serosanguineous Serosanguineous Sanguineous -Wound Margin Distinct, Thickened Distinct, Outline Outline Attached Attached -Granulation Amt Large (67-100%) Large (67-100%) Large (67-100%) -Granulation Quality Roxton Roxton Red -Slough/Fibrin Yes Yes -Necrosis Amt Small (1-33%) Small (1-33%) -Necrotic Tissue Type Adherent Slough Adherent Slough -Texture (Yuliet-wound Skin Appearance) Assessed, Assessed Assessed, Scarring Scarring -Moisture (Yuliet-wound Skin Appearance) Assessed,Dry/ Assessed Assessed,Dry/ Scaly Scaly -Color (Yuliet-wound Skin Appearance) Assessed Assessed Assessed -Temperature (Yuliet-wound Skin No Abnormality No Abnormality No Abnormality Appearance) (Pt Warm) (Pt Warm) (Pt Warm) -Tenderness on Palpation (Yuliet-wound No No No Skin Appearance) -Ulcer Cleansing Soap and Water Soap and Water Soap and Water -Foul Odor after Cleansing No No No -Anesthetic Used 5% Lidocaine 5% Lidocaine 5% Lidocaine Gel Gel Gel -Wound Comment(s) Lower Limb Edema Present Yes Right Calf (cm) 35.8 Right Ankle (cm) 24.2 01/17/25 01/24/25 10:31 10:44 Wound Center Nurse 1 #18- R MED ANGEL -Combined with other wound No -Current Size (cm) - Length 1.9 1 -Current Size (cm) - Width 1 0.4 -Current Size (cm) - Depth 0.1 0.1 -Total Square Cm 1.9 0.4 -Date of Last Picture (Recall this 01/17/25 01/24/25 field) -Photo Taken Yes -Epithelialization -Tunneling No -Undermining/Tunneling No -Circular Undermining No -Exudate Amt Medium Small -Exudate Type Serosanguineous Serosanguineous -Wound Margin Distinct, Distinct, Outline Outline Attached Attached -Granulation Amt Large (67-100%) Large (67-100%) -Granulation Quality Red Red -Slough/Fibrin Yes -Necrosis Amt Small (1-33%) -Necrotic Tissue Type Adherent Slough -Texture (Yuliet-wound Skin Appearance) Assessed, Assessed Scarring -Moisture (Yuliet-wound Skin Appearance) Assessed,Dry/ Assessed,Dry/ Scaly Scaly -Color (Yuliet-wound Skin Appearance) Assessed Assessed -Temperature (Yuliet-wound Skin No Abnormality No Abnormality Appearance) (Pt Warm) (Pt Warm) -Tenderness on Palpation (Yuliet-wound No No Skin Appearance) -Ulcer Cleansing Soap and Water Soap and Water -Foul Odor after Cleansing No No -Anesthetic Used 5% Lidocaine 5% Lidocaine Gel Gel 7-right plantar foot -Combined with other wound No -Current Size (cm) - Length 0.1 -Current Size (cm) - Width 0.1 -Current Size (cm) - Depth 0.1 -Total Square Cm 0.01 -Date of Last Picture (Recall this 01/17/25 field) -Photo Taken Yes -Epithelialization Small 1-33% -Tunneling No -Undermining/Tunneling No -Circular Undermining No -Exudate Amt Medium -Exudate Type Serosanguineous -Wound Margin Distinct, Outline Attached -Granulation Amt Large (67-100%) -Granulation Quality Red -Slough/Fibrin No -Necrosis Amt -Necrotic Tissue Type -Texture (Yuliet-wound Skin Appearance) Assessed, Scarring -Moisture (Yuliet-wound Skin Appearance) Assessed, Maceration,Dry/ Scaly -Color (Yuliet-wound Skin Appearance) Assessed -Temperature (Yuliet-wound Skin No Abnormality Appearance) (Pt Warm) -Tenderness on Palpation (Yuliet-wound No Skin Appearance) -Ulcer Cleansing Soap and Water -Foul Odor after Cleansing No -Anesthetic Used 5% Lidocaine Gel -Wound Comment(s) ^ WHITE, MOIST AND MACERATED Lower Limb Edema Present Right Calf (cm) 35.5 Right Ankle (cm) 24 WC - Nurse 2 - General Ulcer CM Notes Start: 12/27/24 10:45 Freq: Status: Active Protocol: Activity Type Activity Date Activity User E-sign Co-sign Detail Recorded Client Recorded Date Recorded By Document 12/27/24 11:18 DS [id number] 12/27/24 11:21 DS Document 01/03/25 11:02 DS [id number] 01/03/25 11:10 DS Document 01/10/25 10:58 DS [id number] 01/10/25 11:04 DS Document 01/17/25 11:14 DS [id number] 01/17/25 11:21 DS Document 01/24/25 11:04 DS [id number] 01/24/25 11:07 DS 12/27/24 01/03/25 01/10/25 11:18 11:02 10:58 Wound Center Nurse 2 #18- R MED ANGEL -Time 11:18 11:05 10:58 -Correct Patient Yes Yes Yes -Correct Side, Site, Position Yes Yes Yes -Correct Procedure Yes Yes Yes -Procedure Performed Yes Yes Yes -Type of Procedure Debridement Debridement Debridement -Clinical Debridement Subcutaneous Subcutaneous Subcutaneous -Tissue Removed Subcutaneous Subcutaneous Subcutaneous -Post Debridement (cm) - Length 2.0 1.5 1.5 -Post Debridement (cm) - Width 1.5 1.1 1.2 -Post Debridement (cm) - Depth 0.1 0.1 0.1 -Total Square (Post) (cm) 3.00 1.65 1.80 -Area of Debridement (cm) - Length 2.0 1.5 1.5 -Area of Debridement (cm) - Width 1.5 1.1 1.2 -Total Square (Area) (cm) 3.00 1.65 1.80 -Tunneling No No No -Undermining/Tunneling No No No -Circular Undermining No No No -Wound/Ulcer Outcome Not Healed Not Healed Not Healed -Ulcer Cleansing Rinsed/ gauze Irrigated with Saline -Foul Odor after Cleansing No No No -Bioengineered Tissue No No No -Bleeding Controlled with Pressure Pressure Pressure -Treatment Response Procedure Procedure Tolerated Well Tolerated Well -Debridement - Subq, 1st 20sq cm No Yes Yes 7-right plantar foot -Time 11:18 11:06 10:58 -Correct Patient Yes Yes Yes -Correct Side, Site, Position Yes Yes Yes -Correct Procedure Yes Yes -Procedure Performed Yes No Yes -Type of Procedure Debridement Debridement -Clinical Debridement Subcutaneous Subcutaneous -Tissue Removed Subcutaneous Subcutaneous -Post Debridement (cm) - Length 2.1 0.8 -Post Debridement (cm) - Width 1.3 0.5 -Post Debridement (cm) - Depth 0.2 0.1 -Total Square (Post) (cm) 2.73 0.40 -Area of Debridement (cm) - Length 2.1 0.8 -Area of Debridement (cm) - Width 1.3 0.5 -Total Square (Area) (cm) 2.73 0.40 -Tunneling No No -Undermining/Tunneling No No -Circular Undermining No No -Wound/Ulcer Outcome Not Healed Healed- Not Healed Epithelialized -Ulcer Cleansing Rinsed/ gauze Irrigated with Saline -Foul Odor after Cleansing No No -Bioengineered Tissue No No -Bleeding Controlled with Pressure Pressure -Treatment Response Procedure Procedure Tolerated Well Tolerated Well -Debridement - Subq, 1st 20sq cm Yes No Pain Scale: 0-10 Numeric Is Patient Pain Free? Yes Yes Yes 01/17/25 01/24/25 11:14 11:04 Wound Center Nurse 2 #18- R MED ANGEL -Time 11:14 11:04 -Correct Patient Yes Yes -Correct Side, Site, Position Yes Yes -Correct Procedure Yes Yes -Procedure Performed Yes Yes -Type of Procedure Debridement Debridement -Clinical Debridement Subcutaneous Subcutaneous -Tissue Removed Subcutaneous Subcutaneous -Post Debridement (cm) - Length 1.7 1.1 -Post Debridement (cm) - Width 0.8 0.2 -Post Debridement (cm) - Depth 0.1 0.1 -Total Square (Post) (cm) 1.36 0.22 -Area of Debridement (cm) - Length 1.7 1.1 -Area of Debridement (cm) - Width 0.8 0.2 -Total Square (Area) (cm) 1.36 0.22 -Tunneling No No -Undermining/Tunneling No No -Circular Undermining No No -Wound/Ulcer Outcome Not Healed Not Healed -Ulcer Cleansing GAUZE Rinsed/ Irrigated with Saline -Foul Odor after Cleansing No No -Bioengineered Tissue No No -Bleeding Controlled with Pressure Pressure -Treatment Response Procedure Procedure Tolerated Well Tolerated Well -Debridement - Subq, 1st 20sq cm Yes Yes 7-right plantar foot -Time 11:15 11:07 -Correct Patient Yes Yes -Correct Side, Site, Position Yes Yes -Correct Procedure -Procedure Performed No No -Type of Procedure -Clinical Debridement -Tissue Removed -Post Debridement (cm) - Length -Post Debridement (cm) - Width -Post Debridement (cm) - Depth -Total Square (Post) (cm) -Area of Debridement (cm) - Length -Area of Debridement (cm) - Width -Total Square (Area) (cm) -Tunneling -Undermining/Tunneling -Circular Undermining -Wound/Ulcer Outcome Healed- Healed- Epithelialized Epithelialized -Ulcer Cleansing -Foul Odor after Cleansing -Bioengineered Tissue -Bleeding Controlled with -Treatment Response -Debridement - Subq, 1st 20sq cm Pain Scale: 0-10 Numeric Is Patient Pain Free? Yes Yes WC - Nurse 3 - General Ulcer D/C NN Start: 12/27/24 10:45 Freq: Status: Active Protocol: Activity Type Activity Date Activity User E-sign Co-sign Detail Recorded Client Recorded Date Recorded By Document 12/27/24 11:27 [facility] [id number] 12/27/24 11:28 BM Document 01/03/25 11:27 DS [id number] 01/03/25 11:29 DS Document 01/10/25 11:14 [facility] [id number] 01/10/25 11:16 BM Document 01/17/25 16:18 KW [id number] 01/17/25 16:19 KW Document 01/24/25 11:13 [facility] [id number] 01/24/25 11:14 [facility] 12/27/24 01/03/25 01/10/25 11:27 11:27 11:14 Wound Care Center Nurse 3 #18- R MED ANGEL -Ulcer Cleansing Rinsed/ Rinsed/ Irrigated with Irrigated with Saline Saline -Foul Odor after Cleansing No No -Primary Dressing Applied AMD Dressing Aquacel Extra Aquacel Extra 4x4,C Hydrogel -Other Dressing -Primary Dressing Covered/Secured with Dry Gauze & Roll Gauze, Secured with Tape -Other Covering drsg per kw yarn carrier drsg per rn -AMD Dressing 4x4 1 -Aquacel Extra 1 1 -Hydrogel 1 7-right plantar foot -Ulcer Cleansing Rinsed/ Rinsed/ Irrigated with Irrigated with Saline Saline -Foul Odor after Cleansing No No -Primary Dressing Applied AMD Dressing Aquacel Extra 4x4,C Hydrogel -Other Dressing drsg per yarn carrier -Primary Dressing Covered/Secured with Dry Gauze & Roll Gauze, Secured with Tape -AMD Dressing 4x4 1 -Aquacel Extra 0 -Hydrogel 0 -Wound Comment(s) drsg per rn RLE -Multi-Layered Wrap Application Unna Boot - Right -Other applied per rn -Unna- Right (Qty applied) 1 LLE -Tubular Bandage Single Layer -Size of Tubigrip Used Size E -Size E ($) 1 -Other reapplied pts own single layer tubi BLE -Multi-Layered Wrap Application Unna Boot - Right -Tubular Bandage Double Layer -Size of Tubigrip Used Size E -Size E ($) 2 -Unna- Right (Qty applied) 1 Treatment Response Procedure Procedure Tolerated Well Tolerated Well Pain Scale: 0-10 Numeric Is Patient Pain Free? Yes Yes Yes WC - Visit Discharge Discharge Condition Stable Stable Stable Ambulatory Status Wheelchair Ambulatory, Wheelchair Walker, Wheelchair Transportation ecf [facility] transport ecf Medication Reconcilliation completed & provided to patient/care provider Clinical Summary of Care Provided Facility Type Rental Coordinator Care Rental Coordinator Care Facility Facility 01/17/25 01/24/25 16:18 11:13 Wound Care Center Nurse 3 #18- R MED ANGEL -Ulcer Cleansing Rinsed/ Irrigated with Saline -Foul Odor after Cleansing No -Primary Dressing Applied Aquacel Extra Aquacel Extra -Other Dressing unna ; drsg per rn -Primary Dressing Covered/Secured with -Other Covering -AMD Dressing 4x4 -Aquacel Extra 1 1 -Hydrogel 7-right plantar foot -Ulcer Cleansing Rinsed/ Irrigated with Saline -Foul Odor after Cleansing No -Primary Dressing Applied -Other Dressing aquacel extra to use aquaphor at facility -Primary Dressing Covered/Secured with Dry Gauze & Roll Gauze, Secured with Tape -AMD Dressing 4x4 -Aquacel Extra -Hydrogel -Wound Comment(s) RLE -Multi-Layered Wrap Application Unna Boot - Unna Boot - Right Right -Other applied per jf rn -Unna- Right (Qty applied) 1 1 LLE -Tubular Bandage -Size of Tubigrip Used -Size E ($) -Other BLE -Multi-Layered Wrap Application -Tubular Bandage -Size of Tubigrip Used -Size E ($) -Unna- Right (Qty applied) Treatment Response Procedure Tolerated Well Pain Scale: 0-10 Numeric Is Patient Pain Free? Yes Yes WC - Visit Discharge Discharge Condition Stable Stable Ambulatory Status Wheelchair Wheelchair Transportation ecf Medication Reconcilliation completed & No provided to patient/care provider Clinical Summary of Care Provided Yes Facility Type Rental Coordinator Care Facility Additional Wound Tissue Removed: Bioburden and slough Charges/Coding Procedures Integumentary [id number]: [id number] Samina subq tissue 20 sq cm/< Assessment/Plan Assessment/Plan (1) Non-pressure chronic ulcer 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: CODE(S): L97.212 - Non-pressure chronic ulcer 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 (2) Venous stasis ulcer: CODE(S): I83.009 - Varicose veins of unspecified lower extremity with ulcer of unspecified site; L97.909 - Non-pressure chronic ulcer of unspecified part of unspecified lower leg with unspecified severity QUALIFIERS: Venous stasis ulcer site: calf Varicose vein presence: without varicose veins Laterality: right Non-pressure ulcer stage: with fat layer exposed Qualified Code(s): I87.2 - Venous insufficiency (chronic) (peripheral); L97.212 - Non-pressure chronic ulcer 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 (3) Non-pressure chronic ulcer of lower leg with fat layer exposed: CODE(S): L97.902 - Non-pressure chronic ulcer of unspecified part of unspecified lower leg with fat layer exposed QUALIFIERS: Laterality: right Qualified Code(s): L97.912 - Non-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 (4) Non-pressure 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 foot with fat layer exposed: CODE(S): L97.512 - Non-pressure 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 foot with fat layer exposed (5) Venous stasis dermatitis of right lower extremity: CODE(S): I87.2 - Venous insufficiency (chronic) (peripheral) (6) Venous insufficiency (chronic) (peripheral): CODE(S): I87.2 - Venous insufficiency (chronic) (peripheral) (7) Peripheral vascular disease: CODE(S): I73.9 - Peripheral vascular disease, unspecified (8) Bilateral lower extremity edema: CODE(S): R60.0 - Localized edema (9) Debility: CODE(S): R53.81 - Other malaise (10) Tinea unguium: CODE(S): B35.1 - Tinea unguium PLAN: Plan This is an 85-year-old male with deformities in his right lower extremity and 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 A full-thickness ulceration remains on the distal right medial calf. The patient claims not to be diabetic. He has a history of venous and arterial disease. The patient is nonambulatory. We are to continue the use of moistened Aquacel Extra relative to the ulceration of the right medial calf. An Unna compression wrap will be applied to the right lower extremity, with intent to change twice weekly. Aquaphor has been recommended for topical use relative to the dry, scaly, eczematous epithelium on the right foot. Tubigrips are to be used for compression on the left lower extremity, and donned daily. The patient has been encouraged to elevate his lower extremities as much as possible. Elevation is to be to heart level, or higher. The patient has been encouraged to optimize his nutritional intake. The patient is to return in 1 week for reevaluation. Total time: 25 minutes
== END 2025-01-26 23:59 | disposition home or self-care (01) ==
LOC: WC 10:45
PROVIDERS: PCP Family Medicine; Referring Provider Family Medicine; Visit Provider Surgery
DX: I83.012 Varicose veins of right lower extremity with ulcer of calf (principal); E11.621 Type 2 diabetes mellitus with foot ulcer; L97.212 Non-pressure chronic ulcer 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; L97.512 Non-pressure 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 foot with fat layer exposed; E11.59 Type 2 diabetes mellitus with other circulatory complications; E11.51 Type 2 diabetes mellitus with diabetic peripheral angiopathy without gangrene; E11.42 Type 2 diabetes mellitus with diabetic polyneuropathy; R53.81 Other malaise; I87.2 Venous insufficiency (chronic) (peripheral); B35.1 Tinea unguium; M24.561 Contracture, right knee; E78.5 Hyperlipidemia, unspecified; R60.0 Localized edema
CPT/HCPCS: 11042; 29580

== ENCOUNTER 2025-02-14 10:30 | Outpatient (RCR) | payer MEDICARE, BC, SELFPAY ==
[2025-01-31 10:28] VITALS: BP 96/49; PULSE 66; RESP 16; TEMP 36.1
--- NOTE | 2025-02-01 08:42 | WC ---
PHOTO: RT ANGEL 01.31.25
--- NOTE | 2025-02-01 14:35 | PCM.WC.HP ---
History of Present Illness Date of Service: 01/31/25 Chief Complaint: Chronic, non-healing, right lower extremity and foot ulcerations History of Wound: This is an 85-year-old male with chronic ulcerations, dermatitis, and excoriations in his right lower extremity and right foot. He has a history of chronic venous insufficiency. 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 The patient's care has been assumed from Dr. John Anna, who has relocated his practice of Podiatry. The patient has a history of edema in his lower extremities. 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 The patient is minimally ambulatory and only transfers from bed to wheelchair and wheelchair to bed. The patient is a resident of a detention. It is noted that the patient has previously undergone angioplasty and stent placement in the common iliac veins bilaterally, a procedure performed by Dr. Hossein Arvizu on July 09, 2023. [facility] Medical History Non-pressure chronic ulcer 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 Venous stasis ulcer Venous stasis dermatitis of right lower extremity Non-pressure chronic ulcer of lower leg with fat layer exposed Cellulitis of leg, right Debility Ulcer of right heel and midfoot with fat layer exposed Ulcer of left lower extremity with fat layer exposed Ulcer of right lower extremity with fat layer exposed Hypertension Diabetes Vascular dementia Hyperlipidemia Polyneuropathy Heart failure Peripheral vascular disease Home Medications ?Medication ?Instructions ?Recorded ?Last Taken ?Type atorvastatin 40 mg tablet 40 mg PO QHS 10/09/22 Unknown History cyanocobalamin (vitamin B-12) 500 500 mcg PO DAILY 10/09/22 Unknown History mcg tablet diphenhydramine 25 2 tab PO QHS PRN Pain 10/09/22 Unknown History mg-acetaminophen 500 mg tablet (Acetaminophen PM Extra Strength) docusate sodium 100 mg capsule 100 mg PO BID 10/09/22 Unknown History furosemide 40 mg tablet (Lasix) 40 mg PO DAILY 10/09/22 Unknown History gabapentin 300 mg capsule 300 mg PO TID 10/09/22 Unknown History magnesium hydroxide 400 mg/5 mL 30 ml PO DAILY PRN Constipation 10/09/22 Unknown History oral suspension (Milk of Magnesia) metformin 500 mg tablet,extended 500 mg PO DAILY 10/09/22 Unknown History release 24 hr multivitamin 1 tab PO DAILY 10/09/22 Unknown History polyethylene glycol 3350 17 gram 17 g PO DAILY 10/09/22 Unknown History oral powder packet (Miralax) sennosides 8.6 mg capsule (senna) 8.6 mg PO DAILY 10/09/22 Unknown History tamsulosin 0.4 mg capsule 0.8 mg PO QHS 10/09/22 Unknown History ascorbic acid (vitamin C) 500 mg mg PO 08/13/23 Unknown History capsule cholecalciferol (vitamin D3) 25 25 mcg PO DAILY 08/13/23 Unknown History mcg (1,000 unit) capsule clopidogrel 75 mg tablet (Plavix) 75 mg PO DAILY 08/13/23 Unknown History warfarin 5 mg tablet 9 mg PO DAILY 08/13/23 Unknown History zinc acetate 50 mg (zinc) capsule 50 mg PO DAILY 08/13/23 Unknown History Allergy/AdvReac Type Severity Reaction Status Date / Time No Known Allergies Allergy Verified 01/13/24 11:13 Family History Other CAD (coronary artery disease) Colon cancer Heart disease Hypertension Myocardial infarction Thyroid disorder Social History Smoking Status: Never smoker Physical Exam Const alert, oriented x3 and no apparent distress General Appearance: cooperative, comfortable and well developed Orientation / Consciousness: awake, oriented to person, oriented to place and oriented to time Exam Limitations: no limitations HEENT normocephalic and head/scalp atraumatic Head and Scalp: normal to inspection, normocephalic and atraumatic Face and Sinus: normal facial exam Nose: external nose normal External Ear: external ears normal Eyes EOMs intact bilaterally Resp normal respiratory effort, normal air movement, no retractions and no use of accessory muscles Effort and Inspection: able to speak in complete sentences Skin Wound Narrative: The ulceration on the distal portion of the patient's right midfoot remains healed and fully epithelialized. There is no sign of infection or cellulitis. There continues to be an area of dry, scaly, eczematous epithelium on the plantar aspect of the distal foot. Lipodermatosclerosis, eczematous dermatitis, and hyperpigmentation are noted in the right gaiter area. Slight swelling and edema are noted in the patient's right lower extremity as well, though this continues to improve. A flexion contracture of the knee and an equinus contracture of the ankle with a varus hindfoot alignment are noted. A full-thickness ulceration is noted on the distal, medial right lower extremity. Ulcer margins are moderately beveled. There is a small amount of bioburden and nonviable tissue. There is no sign of infection or cellulitis. The ulceration is slightly larger, and dimensions are documented elsewhere. The superficial linear wound is noted on the patient's right lateral calf. It is not full-thickness, and does not extend into the subcutaneous tissues. Given its location and linear configuration, there is suspicion that this may have been the result of scissors used to remove the patient Unna compression wrap in the patient's [place]. Neuro oriented x3, CN's II-XII intact bilaterally and moves all extremities Sensorium / Orientation: awake, alert, oriented to person, oriented to place and oriented to time Speech: speech normal Debridement Note Debridement Note Wound debrided: Right distal, medial lower extremity ulceration Laterality: Right Type of Debridement: Excisional debridement Anesthesia Used: 5% Lidocaine Gel Depth: Down to and including healthy tissue and in the subcutaneous layer Percentage of wound debrided: 100 Instrument Used: 5mm curette Tissue Removed: Bioburden and nonviable tissue Severity: Fat Layer Exposed Amount of bleeding with debridement: Mild Bleeding Controlled with: Compression and gauze Patient tolerated procedure: Patient tolerated procedure well Post-Debridement Measurements and Additional Note: Post-Debridement Measurements/Treatment WC - Nurse 1 - General Ulcer Assessment Start: 01/31/25 10:28 Freq: Status: Active Protocol: MARTA Activity Type Activity Date Activity User E-sign Co-sign Detail Recorded Client Recorded Date Recorded By Document 01/31/25 10:28 KW [id number] 01/31/25 10:35 KW 01/31/25 10:28 Vital Signs Temperature (97.8 F-99.1 F) 96.9 F L Temperature Source Temporal Pulse Rate (60-100) 66 Pulse Location Monitor Respiratory Rate (12-18) 16 Respiratory rate source Observation Oxygen Delivery Method Room Air Blood Pressure (90/60-120/80) 96/49 L Blood Pressure Mean 64 Source Monitor Position Sitting Blood Pressure Location Right Arm History Since Last Visit- (Skip if this is Patient's initial visit) Have you changed medications since your No last visit? Any new allergies or adverse reactions No Had a fall/change in ADL's that may No increase risk of falls Signs or symptoms of abuse and/or No neglect since last visit Have you been in the hospital since your No last visit? Has dressing in place as prescribed Yes Has compression in place as prescribed Yes Has offloadiing in place as prescribed Yes Experienced any changes in pain level or No management Left Footwear Surgical Shoe with pressure relief insole Right Footwear Surgical Shoe with pressure relief insole Pain Scale: 0-10 Numeric Is Patient Pain Free? Yes WC - Nurse 1 - General Ulcer Measurement Start: 01/31/25 10:28 Freq: Status: Active Protocol: Activity Type Activity Date Activity User E-sign Co-sign Detail Recorded Client Recorded Date Recorded By Document 01/31/25 10:28 KW [id number] 01/31/25 10:35 KW 01/31/25 10:28 Wound Center Nurse 1 #18- R MED ANGEL -Current Size (cm) - Length 1.6 -Current Size (cm) - Width 0.8 -Current Size (cm) - Depth 0.1 -Total Square Cm 1.28 -Date of Last Picture (Recall this 01/31/25 field) -Exudate Amt Small -Exudate Type Serosanguineous -Wound Margin Distinct, Outline Attached -Granulation Amt Large (67-100%) -Granulation Quality Red -Necrosis Amt Small (1-33%) -Necrotic Tissue Type Adherent Slough -Texture (Yuliet-wound Skin Appearance) Assessed -Moisture (Yuliet-wound Skin Appearance) Assessed -Color (Yuliet-wound Skin Appearance) Assessed, Hemosiderin Staining -Temperature (Yuliet-wound Skin No Abnormality Appearance) (Pt Warm) -Tenderness on Palpation (Yuliet-wound No Skin Appearance) -Ulcer Cleansing Soap and Water -Foul Odor after Cleansing No -Anesthetic Used 5% Lidocaine Gel 7-right plantar foot -Current Size (cm) - Length 0.1 -Current Size (cm) - Width 0.1 -Current Size (cm) - Depth 0.1 -Total Square Cm 0.01 -Date of Last Picture (Recall this 01/31/25 field) -Exudate Amt Small -Exudate Type Serosanguineous -Wound Margin Indistinct, Non -Visible -Texture (Yuliet-wound Skin Appearance) Assessed -Moisture (Yuliet-wound Skin Appearance) Assessed -Color (Yuliet-wound Skin Appearance) Assessed -Temperature (Yuliet-wound Skin No Abnormality Appearance) (Pt Warm) -Tenderness on Palpation (Yuliet-wound No Skin Appearance) -Ulcer Cleansing Soap and Water -Foul Odor after Cleansing No -Anesthetic Used 5% Lidocaine Gel WC - Nurse 2 - General Ulcer CM Notes Start: 01/31/25 10:28 Freq: Status: Active Protocol: Activity Type Activity Date Activity User E-sign Co-sign Detail Recorded Client Recorded Date Recorded By Document 01/31/25 10:44 DS [id number] 01/31/25 10:48 DS 01/31/25 10:44 Wound Center Nurse 2 #18- R MED ANGEL -Time 10:44 -Correct Patient Yes -Correct Side, Site, Position Yes -Correct Procedure Yes -Procedure Performed Yes -Type of Procedure Debridement -Clinical Debridement Subcutaneous -Tissue Removed Subcutaneous -Post Debridement (cm) - Length 1.5 -Post Debridement (cm) - Width 0.8 -Post Debridement (cm) - Depth 0.1 -Total Square (Post) (cm) 1.20 -Area of Debridement (cm) - Length 1.5 -Area of Debridement (cm) - Width 0.8 -Total Square (Area) (cm) 1.20 -Tunneling No -Undermining/Tunneling No -Circular Undermining No -Wound/Ulcer Outcome Not Healed -Ulcer Cleansing gauze -Foul Odor after Cleansing No -Bioengineered Tissue No -Debridement - Subq, 1st 20sq cm Yes Pain Scale: 0-10 Numeric Is Patient Pain Free? Yes - Nurse 3 - General Ulcer D/C NN Start: 01/31/25 10:28 Freq: Status: Active Protocol: Activity Type Activity Date Activity User E-sign Co-sign Detail Recorded Client Recorded Date Recorded By Document 01/31/25 10:56 KW [id number] 01/31/25 10:58 KW Edit Result 01/31/25 10:56 KW (1) [id number] 01/31/25 11:19 DS (1) RLE - Multi-Layered Wrap Application => Unna Boot - Right - Unna- Right (Qty applied) => 1 01/31/25 10:56 Wound Care Center Nurse 3 #18- R MED ANGEL -Primary Dressing Applied Aquacel Extra -Aquacel Extra 1 7-right plantar foot -Other Dressing aquaphor RLE -Multi-Layered Wrap Application Unna Boot - Right -Unna- Right (Qty applied) 1 Pain Scale: 0-10 Numeric Is Patient Pain Free? Yes WC - Visit Discharge Discharge Condition Stable Ambulatory Status Ambulatory Transportation Private Auto Medication Reconcilliation completed & No provided to patient/care provider Clinical Summary of Care Provided Yes Additional Wound Tissue Removed: Bioburden and slough Charges/Coding Procedures Integumentary [id number]: [id number] Samina subq tissue 20 sq cm/< Assessment/Plan Assessment/Plan (1) Non-pressure chronic ulcer 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: CODE(S): L97.212 - Non-pressure chronic ulcer 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 (2) Venous stasis ulcer: CODE(S): I83.009 - Varicose veins of unspecified lower extremity with ulcer of unspecified site; L97.909 - Non-pressure chronic ulcer of unspecified part of unspecified lower leg with unspecified severity QUALIFIERS: Venous stasis ulcer site: calf Varicose vein presence: without varicose veins Laterality: right Non-pressure ulcer stage: with fat layer exposed Qualified Code(s): I87.2 - Venous insufficiency (chronic) (peripheral); L97.212 - Non-pressure chronic ulcer 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 (3) Non-pressure chronic ulcer of lower leg with fat layer exposed: CODE(S): L97.902 - Non-pressure chronic ulcer of unspecified part of unspecified lower leg with fat layer exposed QUALIFIERS: Laterality: right Qualified Code(s): L97.912 - Non-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 (4) Non-pressure 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 foot with fat layer exposed: CODE(S): L97.512 - Non-pressure 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 foot with fat layer exposed (5) Venous stasis dermatitis of right lower extremity: CODE(S): I87.2 - Venous insufficiency (chronic) (peripheral) (6) Venous insufficiency (chronic) (peripheral): CODE(S): I87.2 - Venous insufficiency (chronic) (peripheral) (7) Peripheral vascular disease: CODE(S): I73.9 - Peripheral vascular disease, unspecified (8) Bilateral lower extremity edema: CODE(S): R60.0 - Localized edema (9) Debility: CODE(S): R53.81 - Other malaise (10) Tinea unguium: CODE(S): B35.1 - Tinea unguium PLAN: Plan This is an 85-year-old male with deformities in his right lower extremity and 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 A full-thickness ulceration remains on the distal right medial calf. The patient claims not to be diabetic. He has a history of venous and arterial disease. The patient is nonambulatory. We are to continue the use of moistened Aquacel Extra relative to the ulceration of the right medial calf. An Unna compression wrap will be applied to the right lower extremity, with intent to change twice weekly. Aquaphor has been recommended for topical use relative to the dry, scaly, eczematous epithelium on the right foot. Tubigrips are to be used for compression on the left lower extremity, and donned daily. The patient has been encouraged to elevate his lower extremities as much as possible. Elevation is to be to heart level, or higher. The patient has been encouraged to optimize his nutritional intake. The superficial, linear wound on the patient's right lateral calf is to be left undisturbed, and will be monitored on a serial basis. The patient is to return in 1 week for reevaluation. Total time: 24 minutes
[2025-02-07 10:54] VITALS: BP 94/58; PULSE 72; RESP 16; TEMP 36.4
--- NOTE | 2025-02-07 12:21 | WC ---
PHOTO-RIGHT ANGEL 02/07/25
--- NOTE | 2025-02-08 13:17 | PCM.WC.HP ---
History of Present Illness Date of Service: 02/07/25 Chief Complaint: Chronic, non-healing, right lower extremity and foot ulcerations History of Wound: This is an 85-year-old male with chronic ulcerations, dermatitis, and excoriations in his right lower extremity and right foot. He has a history of chronic venous insufficiency. 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 The patient's care has been assumed from Dr. John Anna, who has relocated his practice of Podiatry. The patient has a history of edema in his lower extremities. 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 The patient is minimally ambulatory and only transfers from bed to wheelchair and wheelchair to bed. The patient is a resident of a snf. It is noted that the patient has previously undergone angioplasty and stent placement in the common iliac veins bilaterally, a procedure performed by Dr. Hossein Arvizu on July 09, 2023. [facility]LY [facility] Medical History Non-pressure chronic ulcer 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 Venous stasis ulcer Venous stasis dermatitis of right lower extremity Non-pressure chronic ulcer of lower leg with fat layer exposed Cellulitis of leg, right Debility Ulcer of right heel and midfoot with fat layer exposed Ulcer of left lower extremity with fat layer exposed Ulcer of right lower extremity with fat layer exposed Hypertension Diabetes Vascular dementia Hyperlipidemia Polyneuropathy Heart failure Peripheral vascular disease Home Medications ?Medication ?Instructions ?Recorded ?Last Taken ?Type atorvastatin 40 mg tablet 40 mg PO QHS 10/09/22 Unknown History cyanocobalamin (vitamin B-12) 500 500 mcg PO DAILY 10/09/22 Unknown History mcg tablet diphenhydramine 25 2 tab PO QHS PRN Pain 10/09/22 Unknown History mg-acetaminophen 500 mg tablet (Acetaminophen PM Extra Strength) docusate sodium 100 mg capsule 100 mg PO BID 10/09/22 Unknown History furosemide 40 mg tablet (Lasix) 40 mg PO DAILY 10/09/22 Unknown History gabapentin 300 mg capsule 300 mg PO TID 10/09/22 Unknown History magnesium hydroxide 400 mg/5 mL 30 ml PO DAILY PRN Constipation 10/09/22 Unknown History oral suspension (Milk of Magnesia) metformin 500 mg tablet,extended 500 mg PO DAILY 10/09/22 Unknown History release 24 hr multivitamin 1 tab PO DAILY 10/09/22 Unknown History polyethylene glycol 3350 17 gram 17 g PO DAILY 10/09/22 Unknown History oral powder packet (Miralax) sennosides 8.6 mg capsule (senna) 8.6 mg PO DAILY 10/09/22 Unknown History tamsulosin 0.4 mg capsule 0.8 mg PO QHS 10/09/22 Unknown History ascorbic acid (vitamin C) 500 mg mg PO 08/13/23 Unknown History capsule cholecalciferol (vitamin D3) 25 25 mcg PO DAILY 08/13/23 Unknown History mcg (1,000 unit) capsule clopidogrel 75 mg tablet (Plavix) 75 mg PO DAILY 08/13/23 Unknown History warfarin 5 mg tablet 9 mg PO DAILY 08/13/23 Unknown History zinc acetate 50 mg (zinc) capsule 50 mg PO DAILY 08/13/23 Unknown History Allergy/AdvReac Type Severity Reaction Status Date / Time No Known Allergies Allergy Verified 01/13/24 11:13 Family History Other CAD (coronary artery disease) Colon cancer Heart disease Hypertension Myocardial infarction Thyroid disorder Social History Smoking Status: Never smoker Physical Exam Const alert, oriented x3 and no apparent distress General Appearance: cooperative, comfortable and well developed Orientation / Consciousness: awake, oriented to person, oriented to place and oriented to time Exam Limitations: no limitations HEENT normocephalic and head/scalp atraumatic Head and Scalp: normal to inspection, normocephalic and atraumatic Face and Sinus: normal facial exam Nose: external nose normal External Ear: external ears normal Eyes EOMs intact bilaterally Resp normal respiratory effort, normal air movement, no retractions and no use of accessory muscles Effort and Inspection: able to speak in complete sentences Skin Wound Narrative: The ulceration on the distal portion of the patient's right midfoot remains healed and fully epithelialized. There is no sign of infection or cellulitis. There continues to be an area of dry, scaly, eczematous epithelium on the plantar aspect of the distal foot, which is improving. Lipodermatosclerosis, eczematous dermatitis, and hyperpigmentation are noted in the right gaiter area. No significant swelling or edema are noted in the patient's right lower extremity. A flexion contracture of the knee and an equinus contracture of the ankle with a varus hindfoot alignment are noted. A full-thickness ulceration is noted on the distal, medial right lower extremity. Ulcer margins are moderately beveled. There is a small amount of bioburden and nonviable tissue. Increasing areas of pink, healthy granulation tissue are noted. There is no sign of infection or cellulitis. The ulceration is smaller, and dimensions are documented elsewhere. The superficial linear wound on the right lateral calf is completely healed. There is now noted to be a small, superficial wound on the proximal medial right calf, which has been noted, and will be observed serially. Neuro oriented x3, CN's II-XII intact bilaterally and moves all extremities Sensorium / Orientation: awake, alert, oriented to person, oriented to place and oriented to time Speech: speech normal Debridement Note Debridement Note Wound debrided: Right distal, medial lower extremity ulceration Laterality: Right Type of Debridement: Excisional debridement Anesthesia Used: 5% Lidocaine Gel and Cetacaine Depth: Down to and including healthy tissue and in the subcutaneous layer Percentage of wound debrided: 100 Instrument Used: 3mm curette Tissue Removed: Bioburden and nonviable tissue Severity: Fat Layer Exposed Amount of bleeding with debridement: Mild Bleeding Controlled with: Compression and gauze Patient tolerated procedure: Patient tolerated procedure well Post-Debridement Measurements and Additional Note: Post-Debridement Measurements/Treatment - Nurse 1 - General Ulcer Assessment Start: 01/31/25 10:28 Freq: Status: Active Protocol: MARTA Activity Type Activity Date Activity User E-sign Co-sign Detail Recorded Client Recorded Date Recorded By Document 01/31/25 10:28 [id number] 01/31/25 10:35 KW Document 02/07/25 10:54 [facility] [id number] 02/07/25 11:04 [facility] 01/31/25 02/07/25 10:28 10:54 - Today's Visit Information Type of service Nurse-only Visit Arrival Mode Wheelchair Transfer Assistance Other Transfer Assist (Other) 2 Patient Identification Verified (Name & Yes ) Patient Requires Transmission-Based No Precautions Vital Signs Temperature (97.8 F-99.1 F) 96.9 F L 97.6 F L Temperature Source Temporal Temporal Pulse Rate (60-100) 66 72 Pulse Location Monitor Monitor Respiratory Rate (12-18) 16 16 Respiratory rate source Observation Observation Oxygen Delivery Method Room Air Room Air Blood Pressure (90/60-120/80) 96/49 L 94/58 L Blood Pressure Mean 64 70 Source Monitor Monitor Position Sitting Sitting Blood Pressure Location Right Arm Right Arm History Since Last Visit- (Skip if this is Patient's initial visit) Have you changed medications since your No No last visit? Any new allergies or adverse reactions No No Had a fall/change in ADL's that may No No increase risk of falls Signs or symptoms of abuse and/or No No neglect since last visit Have you been in the hospital since your No No last visit? Has dressing in place as prescribed Yes Yes Has compression in place as prescribed Yes Yes Has offloadiing in place as prescribed Yes Yes Experienced any changes in pain level or No No management Left Footwear Surgical Shoe Surgical Shoe with pressure with pressure relief insole relief insole Right Footwear Surgical Shoe Surgical Shoe with pressure with pressure relief insole relief insole Pain Scale: 0-10 Numeric Is Patient Pain Free? Yes Yes WC - Nurse 1 - General Ulcer Measurement Start: 01/31/25 10:28 Freq: Status: Active Protocol: Activity Type Activity Date Activity User E-sign Co-sign Detail Recorded Client Recorded Date Recorded By Document 01/31/25 10:28 [id number] 01/31/25 10:35 Document 02/07/25 10:54 [facility] [id number] 02/07/25 11:04 [facility] 01/31/25 02/07/25 10:28 10:54 Wound Center Nurse 1 7-right plantar foot -Current Size (cm) - Length 0.1 -Current Size (cm) - Width 0.1 -Current Size (cm) - Depth 0.1 -Total Square Cm 0.01 -Date of Last Picture (Recall this 01/31/25 field) -Exudate Amt Small -Exudate Type Serosanguineous -Wound Margin Indistinct, Non -Visible -Texture (Yuliet-wound Skin Appearance) Assessed -Moisture (Yuliet-wound Skin Appearance) Assessed -Color (Yuliet-wound Skin Appearance) Assessed -Temperature (Yuliet-wound Skin No Abnormality Appearance) (Pt Warm) -Tenderness on Palpation (Yuliet-wound No Skin Appearance) -Ulcer Cleansing Soap and Water -Foul Odor after Cleansing No -Anesthetic Used 5% Lidocaine Gel #18- R MED ANGEL -Combined with other wound No -Current Size (cm) - Length 1.6 0.3 -Current Size (cm) - Width 0.8 0.2 -Current Size (cm) - Depth 0.1 0.1 -Total Square Cm 1.28 0.06 -Date of Last Picture (Recall this 01/31/25 02/07/25 field) -Photo Taken Yes -Epithelialization Large 67-100% -Exudate Amt Small -Exudate Type Serosanguineous -Wound Margin Distinct, Outline Attached -Granulation Amt Large (67-100%) -Granulation Quality Red -Necrosis Amt Small (1-33%) -Necrotic Tissue Type Adherent Slough -Texture (Yuliet-wound Skin Appearance) Assessed Assessed, Scarring -Moisture (Yuliet-wound Skin Appearance) Assessed Assessed,Dry/ Scaly -Color (Yuliet-wound Skin Appearance) Assessed, Assessed Hemosiderin Staining -Temperature (Yuliet-wound Skin No Abnormality No Abnormality Appearance) (Pt Warm) (Pt Warm) -Tenderness on Palpation (Yuliet-wound No No Skin Appearance) -Ulcer Cleansing Soap and Water Soap and Water -Foul Odor after Cleansing No No -Anesthetic Used 5% Lidocaine 5% Lidocaine Gel Gel WC - Nurse 2 - General Ulcer CM Notes Start: 01/31/25 10:28 Freq: Status: Active Protocol: Activity Type Activity Date Activity User E-sign Co-sign Detail Recorded Client Recorded Date Recorded By Document 01/31/25 10:44 [facility] [id number] 01/31/25 10:48 DS Document 02/07/25 11:07 [id number] 02/07/25 11:10 01/31/25 02/07/25 10:44 11:07 Wound Center Nurse 2 7-right plantar foot -Correct Patient Yes -Correct Side, Site, Position No -Correct Procedure No -Procedure Performed No -Wound/Ulcer Outcome Healed- Epithelialized #18- R MED ANGEL -Time 10:44 11:08 -Correct Patient Yes Yes -Correct Side, Site, Position Yes Yes -Correct Procedure Yes Yes -Procedure Performed Yes Yes -Type of Procedure Debridement Debridement -Clinical Debridement Subcutaneous Subcutaneous -Tissue Removed Subcutaneous Subcutaneous -Post Debridement (cm) - Length 1.5 0.4 -Post Debridement (cm) - Width 0.8 0.3 -Post Debridement (cm) - Depth 0.1 0.1 -Total Square (Post) (cm) 1.20 0.12 -Area of Debridement (cm) - Length 1.5 0.4 -Area of Debridement (cm) - Width 0.8 0.3 -Total Square (Area) (cm) 1.20 0.12 -Tunneling No No -Undermining/Tunneling No No -Circular Undermining No No -Wound/Ulcer Outcome Not Healed Not Healed -Ulcer Cleansing gauze Rinsed/ Irrigated with Saline -Foul Odor after Cleansing No No -Bioengineered Tissue No No -Bleeding Controlled with Pressure -Treatment Response Procedure Tolerated Well -Offloading No -Debridement - Subq, 1st 20sq cm Yes Yes Pain Scale: 0-10 Numeric Is Patient Pain Free? Yes Yes - Nurse 3 - General Ulcer D/C NN Start: 01/31/25 10:28 Freq: Status: Active Protocol: Activity Type Activity Date Activity User E-sign Co-sign Detail Recorded Client Recorded Date Recorded By Document 01/31/25 10:56 KW [id number] 01/31/25 10:58 KW Edit Result 01/31/25 10:56 KW (1) [id number] 01/31/25 11:19 DS Document 02/07/25 11:27 KW [id number] 02/07/25 11:27 KW (1) RLE - Multi-Layered Wrap Application => Unna Boot - Right - Unna- Right (Qty applied) => 1 01/31/25 02/07/25 10:56 11:27 Wound Care Center Nurse 3 7-right plantar foot -Other Dressing aquaphor #18- R MED ANGEL -Primary Dressing Applied Aquacel Extra Aquacel Extra -Aquacel Extra 1 1 RLE -Multi-Layered Wrap Application Unna Boot - Unna Boot - Right Right -Unna- Right (Qty applied) 1 1 Pain Scale: 0-10 Numeric Is Patient Pain Free? Yes Yes - Visit Discharge Discharge Condition Stable Stable Ambulatory Status Ambulatory Wheelchair Transportation Private Auto Medication Reconcilliation completed & No No provided to patient/care provider Clinical Summary of Care Provided Yes Yes Additional Wound Tissue Removed: Bioburden and slough Charges/Coding Procedures Integumentary [id number]: [id number] Samina subq tissue 20 sq cm/< Assessment/Plan Assessment/Plan (1) Non-pressure chronic ulcer 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: CODE(S): L97.212 - Non-pressure chronic ulcer 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 (2) Venous stasis ulcer: CODE(S): I83.009 - Varicose veins of unspecified lower extremity with ulcer of unspecified site; L97.909 - Non-pressure chronic ulcer of unspecified part of unspecified lower leg with unspecified severity QUALIFIERS: Venous stasis ulcer site: calf Varicose vein presence: without varicose veins Laterality: right Non-pressure ulcer stage: with fat layer exposed Qualified Code(s): I87.2 - Venous insufficiency (chronic) (peripheral); L97.212 - Non-pressure chronic ulcer 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 (3) Non-pressure chronic ulcer of lower leg with fat layer exposed: CODE(S): L97.902 - Non-pressure chronic ulcer of unspecified part of unspecified lower leg with fat layer exposed QUALIFIERS: Laterality: right Qualified Code(s): L97.912 - Non-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 (4) Non-pressure 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 foot with fat layer exposed: CODE(S): L97.512 - Non-pressure 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 foot with fat layer exposed (5) Venous stasis dermatitis of right lower extremity: CODE(S): I87.2 - Venous insufficiency (chronic) (peripheral) (6) Venous insufficiency (chronic) (peripheral): CODE(S): I87.2 - Venous insufficiency (chronic) (peripheral) (7) Peripheral vascular disease: CODE(S): I73.9 - Peripheral vascular disease, unspecified (8) Bilateral lower extremity edema: CODE(S): R60.0 - Localized edema (9) Debility: CODE(S): R53.81 - Other malaise (10) Tinea unguium: CODE(S): B35.1 - Tinea unguium PLAN: Plan This is an 85-year-old male with deformities in his right lower extremity and 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 A full-thickness ulceration remains on the distal right medial calf. The patient claims not to be diabetic. He has a history of venous and arterial disease. The patient is nonambulatory. We are to continue the use of moistened Aquacel Extra relative to the ulceration of the right medial calf. An Unna compression wrap will be applied to the right lower extremity, with intent to change weekly. Aquaphor has been recommended for topical use relative to the dry, scaly, eczematous epithelium on the right foot. Tubigrips are to be used for compression on the left lower extremity, and donned daily. The patient has been encouraged to elevate his lower extremities as much as possible. Elevation is to be to heart level, or higher. The patient has been encouraged to optimize his nutritional intake. The superficial, linear wound on the patient's right lateral calf is now completely healed. A small superficial ulceration is noted on the right medial and proximal calf, which will be within the Unna compression wrap, and will be monitored serially. The patient is to return in 1 week for reevaluation. Total time: 25 minutes
[2025-02-14 10:53] VITALS: BP 106/52; PULSE 69; RESP 18; TEMP 36.2
--- NOTE | 2025-02-15 12:10 | WC ---
PHOTO-RIGHT ISCHIUM 02/14/25
--- NOTE | 2025-02-16 13:30 | HP.PCM_ITS ---
History of Present Illness Date of Service: 02/16/25 Chief Complaint: Chronic, non-healing right lower extremity and foot ulcerations History of Wound: This is an 85-year-old male with chronic ulcerations, dermatitis, and excoriations in his right lower extremity and right foot. He has a history of chronic venous insufficiency. 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 The patient's care has been assumed from Dr. John Anna, who has relocated his practice of Podiatry. The patient has a history of edema in his lower extremities. 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 The patient is minimally ambulatory and only transfers from bed to wheelchair and wheelchair to bed. The patient is a resident of a senior care. It is noted that the patient has previously undergone angioplasty and stent placement in the common iliac veins bilaterally, a procedure performed by Dr. Hossein Arvizu on July 09, 2023. [facility] Medical History Non-pressure chronic ulcer 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 Venous stasis ulcer Venous stasis dermatitis of right lower extremity Non-pressure chronic ulcer of lower leg with fat layer exposed Cellulitis of leg, right Debility Ulcer of right heel and midfoot with fat layer exposed Ulcer of left lower extremity with fat layer exposed Ulcer of right lower extremity with fat layer exposed Hypertension Diabetes Vascular dementia Hyperlipidemia Polyneuropathy Heart failure Peripheral vascular disease Home Medications ?Medication ?Instructions ?Recorded ?Last Taken ?Type atorvastatin 40 mg tablet 40 mg PO QHS 10/09/22 Unknow n History cyanocobalamin (vitamin B-12) 500 500 mcg PO DAILY Unknown History mcg tablet diphenhydramine 25 2 tab PO QHS PRN Pain Unknown History mg-acetaminophen 500 mg tablet (Acetaminophen PM Extra Strength) docusate sodium 100 mg capsule 100 mg PO BID 10/09/22 Unknown History furosemide 40 mg tablet (Lasix) 40 mg PO DAILY 3 Unknown History gabapentin 300 mg capsule 300 mg PO TID 10/09/22 Unkno wn History magnesium hydroxide 400 mg/5 mL 30 ml PO DAILY PRN Con stipation 10/09/22 Unknown History oral suspension (Milk of Magnesia) metformin 500 mg tablet,extended 500 mg PO DAILY 10/09 Unknown History release 24 hr multivitamin 1 tab PO DAILY 10/09/22 Unkn own History polyethylene glycol 3350 17 gram 17 g PO DAILY 3 Unknown History oral powder packet (Miralax) sennosides 8.6 mg capsule (senna) 8.6 mg PO DAILY 09/27 09/18 Unknown History tamsulosin 0.4 mg capsule 0.8 mg PO QHS 10/09/22 Unkno wn History ascorbic acid (vitamin C) 500 mg mg PO 08/13/23 Unknow n History capsule cholecalciferol (vitamin D3) 25 25 mcg PO DAILY Unknown History mcg (1,000 unit) capsule clopidogrel 75 mg tablet (Plavix) 75 mg PO DAILY 08/13 Unknown History warfarin 5 mg tablet 9 mg PO DAILY 08/13/23 Unkno wn History zinc acetate 50 mg (zinc) capsule 50 mg PO DAILY 08/13 Unknown History Allergy/AdvReac Type Severity Reaction Status Date / Time No Known Allergies Allergy Verified 01/13/24 11:13 Family History Other CAD (coronary artery disease) Colon cancer Heart disease Hypertension Myocardial infarction Thyroid disorder Social History Smoking Status: Never smoker Physical Exam Const alert, oriented x3 and no apparent distress General Appearance: cooperative, comfortable and well developed Orientation / Consciousness: awake, oriented to person, oriented to place and oriented to time Exam Limitations: no limitations HEENT normocephalic and head/scalp atraumatic Head and Scalp: normal to inspection, normocephalic and atraumatic Face and Sinus: normal facial exam Nose: external nose normal External Ear: external ears normal Eyes EOMs intact bilaterally Resp normal respiratory effort, normal air movement, no retractions and no use of accessory muscles Effort and Inspection: able to speak in complete sentences Skin Wound Narrative: The ulceration on the distal portion of the patient's right midfoot remains healed and fully epithelialized. There is no sign of infection or cellulitis. Lipodermatosclerosis, eczematous dermatitis, and hyperpigmentation are noted in the right gaiter area. No significant swelling or edema are noted in the patient's right lower extremity. A flexion contracture of the knee and an equinus contracture of the ankle with a varus hindfoot alignment are noted. The ulceration on the distal, medial aspect of the right lower extremity appears to be completely healed and epithelialized. There is no sign of infection or cellulitis. Neuro oriented x3, CN's II-XII intact bilaterally and moves all extremities Sensorium / Orientation: awake, alert, oriented to person, oriented to place and oriented to time Speech: speech normal Debridement Note Debridement Note Debridement Free Text: The ulceration on the right distal, medial lower extremity was evaluated, and a sterile 3 mm curette was used to explore the site. Sloughed epidermis was elevated using the curette, revealing the ulceration to be completely healed and epithelialized beneath. No debridement was completed: No debridement was completed today Post-Debridement Measurements and Additional Note: Post-Debridement Measurements/Treatment - Nurse 1 - General Ulcer Assessment Start: 01/31/25 10:28 Freq: Status: Active Protocol: MARTA Activity Type Activity Date Activity User E-sign Co-sign Detail Recorded Client Recorded Date Recorded By Document 01/31/25 10:28 [id number] 01/31/25 10:35 KW Document 02/07/25 10:54 [facility] [id number] 02/07/25 11:04 [facility] Document 02/14/25 10:53 KW [id number] 02/14/25 10:56 KW 01/31/25 02/07/25 02/14/25 10:28 10:54 10:53 - Today's Visit Information Type of service Nurse-only Follow-up Visit 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 ) Arrival Mode Wheelchair Wheelchair Transfer Assistance Other Manual Transfer Assist (Other) 2 Patient Identification Verified (Name & Yes Yes ) Patient Requires Transmission-Based No No Precautions Vital Signs Temperature (97.8 F-99.1 F) 96.9 F L 97.6 F L 97.2 F L Temperature Source Temporal Temporal Temporal Pulse Rate (60-100) 66 72 69 Pulse Location Monitor Monitor Monitor Respiratory Rate (12-18) 16 16 18 Respiratory rate source Observation Observation Observation Oxygen Delivery Method Room Air Room Air Blood Pressure (90/60-120/80) 96/49 L 94/58 L 106/52 L Blood Pressure Mean 64 70 70 Source Monitor Monitor Monitor Position Sitting Sitting Semi-Fowlers Blood Pressure Location Right Arm Right Arm Left Arm History Since Last Visit- (Skip if this is Patient's initial visit) Have you changed medications since your No No No last visit? Any new allergies or adverse reactions No No No Had a fall/change in ADL's that may No No No increase risk of falls Signs or symptoms of abuse and/or No No No neglect since last visit Have you been in the hospital since your No No No last visit? Has dressing in place as prescribed Yes Yes Yes Has compression in place as prescribed Yes Yes Yes Has offloadiing in place as prescribed Yes Yes N/A Experienced any changes in pain level or No No No management Left Footwear Surgical Shoe Surgical Shoe Regular Shoe with pressure with pressure relief insole relief insole Right Footwear Surgical Shoe Surgical Shoe Regular Shoe with pressure with pressure relief insole relief insole Pain Scale: 0-10 Numeric Is Patient Pain Free? Yes Yes Yes WC - Nurse 1 - General Ulcer Measurement Start: 01/31/25 10:28 Freq: Status: Active Protocol: Activity Type Activity Date Activity User E-sign Co-sign Detail Recorded Client Recorded Date Recorded By Document 01/31/25 10:28 [id number] 01/31/25 10:35 [employer] Document 02/07/25 10:54 [facility] [id number] 02/07/25 11:04 [email or web address] Document 02/14/25 10:53 KW [id number] 02/14/25 10:56 KW 01/31/25 02/07/25 02/14/25 10:28 10:54 10:53 Wound Center Nurse 1 #18- R MED ANGEL -Combined with other wound No No -Current Size (cm) - Length 1.6 0.3 0.1 -Current Size (cm) - Width 0.8 0.2 0.1 -Current Size (cm) - Depth 0.1 0.1 0.1 -Total Square Cm 1.28 0.06 0.01 -Date of Last Picture (Recall this 01/31/25 02/07/25 field) -Photo Taken Yes Yes -Epithelialization Large 67-100% -Tunneling No -Undermining/Tunneling No -Circular Undermining No -Exudate Amt Small Medium -Exudate Type Serosanguineous Serosanguineous -Wound Margin Distinct, Distinct, Outline Outline Attached Attached -Granulation Amt Large (67-100%) Medium (34-66%) -Granulation Quality Red Charco -Slough/Fibrin Yes -Necrosis Amt Small (1-33%) Medium (34-66%) -Necrotic Tissue Type Adherent Slough Adherent Slough -Structure Exposed N/A -Texture (Yuliet-wound Skin Appearance) Assessed Assessed, Assessed Scarring -Moisture (Yuliet-wound Skin Appearance) Assessed Assessed,Dry/ Assessed Scaly -Color (Yuliet-wound Skin Appearance) Assessed, Assessed Assessed Hemosiderin Staining -Temperature (Yuliet-wound Skin No Abnormality No Abnormality No Abnormality Appearance) (Pt Warm) (Pt Warm) (Pt Warm) -Tenderness on Palpation (Yuliet-wound No No No Skin Appearance) -Ulcer Cleansing Soap and Water Soap and Water Wound Cleanser -Foul Odor after Cleansing No No No -Anesthetic Used 5% Lidocaine 5% Lidocaine 5% Lidocaine Gel Gel Gel 7-right plantar foot -Current Size (cm) - Length 0.1 -Current Size (cm) - Width 0.1 -Current Size (cm) - Depth 0.1 -Total Square Cm 0.01 -Date of Last Picture (Recall this 01/31/25 field) -Exudate Amt Small -Exudate Type Serosanguineous -Wound Margin Indistinct, Non -Visible -Texture (Yuliet-wound Skin Appearance) Assessed -Moisture (Yuliet-wound Skin Appearance) Assessed -Color (Yuliet-wound Skin Appearance) Assessed -Temperature (Yuliet-wound Skin No Abnormality Appearance) (Pt Warm) -Tenderness on Palpation (Yuliet-wound No Skin Appearance) -Ulcer Cleansing Soap and Water -Foul Odor after Cleansing No -Anesthetic Used 5% Lidocaine Gel Lower Limb Edema Present Yes Right Calf (cm) 29 Right Ankle (cm) 23 WC - Nurse 2 - General Ulcer CM Notes Start: 01/31/25 10:28 Freq: Status: Active Protocol: Activity Type Activity Date Activity User E-sign Co-sign Detail Recorded Client Recorded Date Recorded By Document 01/31/25 10:44 MERYL [id number] 01/31/25 10:48 MERYL Document 02/07/25 11:07 JUAN RAMON [id number] 02/07/25 11:10 JF Document 02/14/25 11:27 BM [id number] 02/14/25 11:33 BM 01/31/25 02/07/25 02/14/25 10:44 11:07 11:27 Wound Center Nurse 2 #18- R MED ANGEL -Time 10:44 11:08 11:27 -Correct Patient Yes Yes -Correct Side, Site, Position Yes Yes -Correct Procedure Yes Yes -Procedure Performed Yes Yes No -Type of Procedure Debridement Debridement -Clinical Debridement Subcutaneous Subcutaneous -Tissue Removed Subcutaneous Subcutaneous -Post Debridement (cm) - Length 1.5 0.4 0 -Post Debridement (cm) - Width 0.8 0.3 0 -Post Debridement (cm) - Depth 0.1 0.1 0 -Total Square (Post) (cm) 1.20 0.12 0 -Area of Debridement (cm) - Length 1.5 0.4 0 -Area of Debridement (cm) - Width 0.8 0.3 0 -Total Square (Area) (cm) 1.20 0.12 0 -Tunneling No No -Undermining/Tunneling No No -Circular Undermining No No -Wound/Ulcer Outcome Not Healed Not Healed Healed- Epithelialized -Ulcer Cleansing gauze Rinsed/ Irrigated with Saline -Foul Odor after Cleansing No No -Bioengineered Tissue No No -Bleeding Controlled with Pressure NA -Treatment Response Procedure Tolerated Well -Offloading No -Debridement - Subq, 1st 20sq cm Yes Yes 7-right plantar foot -Correct Patient Yes -Correct Side, Site, Position No -Correct Procedure No -Procedure Performed No -Wound/Ulcer Outcome Healed- Epithelialized Pain Scale: 0-10 Numeric Is Patient Pain Free? Yes Yes Yes WC - Nurse 3 - General Ulcer D/C NN Start: 01/31/25 10:28 Freq: Status: Active Protocol: Activity Type Activity Date Activity User E-sign Co-sign Detail Recorded Client Recorded Date Recorded By Document 01/31/25 10:56 KW [id number] 01/31/25 10:58 KW Edit Result 01/31/25 10:56 KW (1) [id number] 01/31/25 11:19 DS Document 02/07/25 11:27 KW [id number] 02/07/25 11:27 KW Document 02/14/25 12:06 RB [id number] 02/14/25 12:07 RB (1) RLE - Multi-Layered Wrap Application => Unna Boot - Right - Unna- Right (Qty applied) => 1 01/31/25 02/07/25 02/14/25 10:56 11:27 12:06 Wound Care Center Nurse 3 #18- R MED ANGEL -Primary Dressing Applied Aquacel Extra Aquacel Extra -Aquacel Extra 1 1 7-right plantar foot -Other Dressing aquaphor RLE -Multi-Layered Wrap Application Unna Boot - Unna Boot - Right Right -Tubular Bandage Single Layer -Size of Tubigrip Used Size D -Size D ($) 1 -Unna- Right (Qty applied) 1 1 Treatment Response Procedure Tolerated Well Pain Scale: 0-10 Numeric Is Patient Pain Free? Yes Yes Yes WC - Visit Discharge Discharge Condition Stable Stable Stable Ambulatory Status Ambulatory Wheelchair Ambulatory Transportation Private Auto Private Auto Medication Reconcilliation completed & No No No provided to patient/care provider Clinical Summary of Care Provided Yes Yes Yes Charges/Coding Visit Charges Office Visits / Consults: [id number] OV L3 Est 20min Assessment/Plan Assessment/Plan (1) Non-pressure chronic ulcer 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: CODE(S): L97.212 - Non-pressure chronic ulcer 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 (2) Venous stasis ulcer: CODE(S): I83.009 - Varicose veins of unspecified lower extremity with ulcer of unspecified site; L97.909 - Non-pressure chronic ulcer of unspecified part of unspecified lower leg with unspecified severity QUALIFIERS: Venous stasis ulcer site: calf Varicose vein presence: without varicose veins Laterality: right Non-pressure ulcer stage: with fat layer exposed Qualified Code(s): I87.2 - Venous insufficiency (chronic) (peripheral); L97.212 - Non-pressure chronic ulcer 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 (3) Non-pressure chronic ulcer of lower leg with fat layer exposed: CODE(S): L97.902 - Non-pressure chronic ulcer of unspecified part of unspecified lower leg with fat layer exposed QUALIFIERS: Laterality: right Qualified Code(s): L97.912 - Non- 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 (4) Non-pressure 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 foot with fat layer exposed: CODE(S): L97.512 - Non-pressure 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 foot with fat layer exposed (5) Venous stasis dermatitis of right lower extremity: CODE(S): I87.2 - Venous insufficiency (chronic) (peripheral) (6) Venous insufficiency (chronic) (peripheral): CODE(S): I87.2 - Venous insufficiency (chronic) (peripheral) (7) Peripheral vascular disease: CODE(S): I73.9 - Peripheral vascular disease, unspecified (8) Bilateral lower extremity edema: CODE(S): R60.0 - Localized edema (9) Debility: CODE(S): R53.81 - Other malaise (10) Tinea unguium: CODE(S): B35.1 - Tinea unguium PLAN: Plan This is an 85-year-old male with deformities in his right lower extremity and 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 The ulceration on the distal right medial calf is now healed and epithelialized. Therefore, the patient is to be discharged, and will follow-up henceforth on an as needed basis. The ulceration on the right foot also remains completely healed. The patient has been advised to elevate his lower extremities is much as possible. Elevation is to be to heart level, or higher. He has been encouraged to sleep on a flat mattress at night. Continued compression by means of Tubigrips at the patient's senior care has been advised. Due to the deformities in the patient's lower extremity, Tubigrips may be the best option for compression in this case, and should be available to the staff in the patient's senior care. A skin moisturizer such as Aquaphor has been recommended for long-term use of the dry, scaly, eczematous skin in the patient's right lower extremity. Total time: 24 minutes
== END 2025-02-23 07:50 | disposition home or self-care (01) ==
LOC: WC 10:30
PROVIDERS: PCP Family Medicine; Referring Provider Family Medicine; Visit Provider Surgery
DX: I83.012 Varicose veins of right lower extremity with ulcer of calf (principal); E11.621 Type 2 diabetes mellitus with foot ulcer; E11.622 Type 2 diabetes mellitus with other skin ulcer; L97.212 Non-pressure chronic ulcer 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; L97.512 Non-pressure 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 foot with fat layer exposed; L97.902 Non-pressure chronic ulcer of unspecified part of unspecified lower leg with fat layer exposed; E11.42 Type 2 diabetes mellitus with diabetic polyneuropathy; E11.59 Type 2 diabetes mellitus with other circulatory complications; E11.51 Type 2 diabetes mellitus with diabetic peripheral angiopathy without gangrene; B35.1 Tinea unguium; E78.5 Hyperlipidemia, unspecified; Z82.49 Family history of ischemic heart disease and other diseases of the circulatory system; I87.2 Venous insufficiency (chronic) (peripheral); M24.561 Contracture, right knee; R53.81 Other malaise; R60.0 Localized edema
CPT/HCPCS: 11042; 29580; 99213; G0463

== ENCOUNTER 2025-04-28 13:15 | Outpatient (RCR) | payer MEDICARE, BC, SELFPAY ==
[2025-04-04 10:23] VITALS: BP 107/80; PULSE 82; RESP 16; TEMP 36.4; BMI 24.4
--- NOTE | 2025-04-05 13:50 | WC ---
PHOTO-RIGHT LATERAL DORSAL FOOT 04/04/25
--- NOTE | 2025-04-09 12:50 | PCM.WC.HP ---
History of Present Illness Date of Service: 04/04/25 Chief Complaint: Chronic, non-healing right lower extremity and foot ulcerations History of Wound: This is an 85-year-old male who has been a long-term patient at the [facility]. Until approximately 6 weeks prior to this presentation, the patient had been treated for ulcerations on his right foot and calf. His wounds were subsequently healed, and the patient was discharged on February 14, 2025. The patient has a history of venous stasis ulcerations, chronic venous insufficiency, and venous stasis dermatitis. At the time of his most recent discharge, the patient was instructed to continue the conservative treatment measures relative to his chronic venous disease, which included leg elevation, avoidance of prolonged idle sitting, activity as tolerated, and daily compression by means of Tubigrips. These instructions were conveyed to the patient's longterm staff. Patient now presents with a new ulceration on the dorsum of his right foot. He again presents with swelling and edema in his lower extremities bilaterally. 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 The patient is minimally ambulatory and only transfers from bed to wheelchair and wheelchair to bed. The patient is a resident of a [facility]. It is noted that the patient has previously undergone angioplasty and stent placement in the common iliac veins bilaterally, a procedure performed by Dr. Hossein Arvizu on July 09, 2023. [facility] Medical History Swelling of both lower extremities Non-pressure chronic ulcer 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 Venous stasis ulcer Venous stasis dermatitis of right lower extremity Non-pressure chronic ulcer of lower leg with fat layer exposed Cellulitis of leg, right Debility Ulcer of right heel and midfoot with fat layer exposed Ulcer of left lower extremity with fat layer exposed Ulcer of right lower extremity with fat layer exposed Hypertension Diabetes Vascular dementia Hyperlipidemia Polyneuropathy Heart failure Peripheral vascular disease Home Medications Medication Instructions Recorded Last Taken Type atorvastatin 40 mg tablet 40 mg PO QHS 10/09/22 Unknown History cyanocobalamin (vitamin B-12) 500 500 mcg PO DAILY 10/09/22 Unknown History mcg tablet diphenhydramine 25 2 tab PO QHS PRN Pain 10/09/22 Unknown History mg-acetaminophen 500 mg tablet (Acetaminophen PM Extra Strength) docusate sodium 100 mg capsule 100 mg PO BID 10/09/22 Unknown History furosemide 40 mg tablet (Lasix) 40 mg PO DAILY 10/09/22 Unknown History gabapentin 300 mg capsule 300 mg PO TID 10/09/22 Unknown History magnesium hydroxide 400 mg/5 mL 30 ml PO DAILY PRN Constipation 10/09/22 Unknown History oral suspension (Milk of Magnesia) metformin 500 mg tablet,extended 500 mg PO DAILY 10/09/22 Unknown History release 24 hr multivitamin 1 tab PO DAILY 10/09/22 Unknown History polyethylene glycol 3350 17 gram 17 g PO DAILY 10/09/22 Unknown History oral powder packet (Miralax) sennosides 8.6 mg capsule (senna) 8.6 mg PO DAILY 10/09/22 Unknown History tamsulosin 0.4 mg capsule 0.8 mg PO QHS 10/09/22 Unknown History ascorbic acid (vitamin C) 500 mg mg PO 08/13/23 Unknown History capsule cholecalciferol (vitamin D3) 25 25 mcg PO DAILY 08/13/23 Unknown History mcg (1,000 unit) capsule clopidogrel 75 mg tablet (Plavix) 75 mg PO DAILY 08/13/23 Unknown History warfarin 5 mg tablet 9 mg PO DAILY 08/13/23 Unknown History zinc acetate 50 mg (zinc) capsule 50 mg PO DAILY 08/13/23 Unknown History Allergy/AdvReac Type Severity Reaction Status Date / Time No Known Allergies Allergy Verified 01/13/24 11:13 Family History Other CAD (coronary artery disease) Colon cancer Heart disease Hypertension Myocardial infarction Thyroid disorder Social History Smoking Status: Never smoker Vital Signs Vital Signs Vital Signs: Weight Weight: 180 lb Body Mass Index (BMI) 24.4 Physical Exam Const alert, oriented x3 and no apparent distress General Appearance: cooperative, comfortable and well developed Orientation / Consciousness: awake, oriented to person, oriented to place and oriented to time Exam Limitations: no limitations HEENT normocephalic and head/scalp atraumatic Head and Scalp: normal to inspection, normocephalic and atraumatic Face and Sinus: normal facial exam Nose: external nose normal External Ear: external ears normal Eyes EOMs intact bilaterally Resp normal respiratory effort, normal air movement, no retractions and no use of accessory muscles Effort and Inspection: able to speak in complete sentences Skin Wound Narrative: An ulceration is present on the dorsal surface of the patient's right foot. It appears to be full-thickness, extending through all layers of the dermis and into subcutaneous tissues. Ulcer margins are well beveled. Dimensions are documented elsewhere. There is no sign of infection or cellulitis. There is a moderate amount of bioburden and nonviable tissue. Moderate swelling and edema are noted in the right lower extremity. Lipodermatosclerosis, eczematous dermatitis, and hyperpigmentation are noted in the right gaiter area. A flexion contracture of the knee and an equinus contracture of the ankle with a varus hindfoot alignment are noted. Neuro oriented x3, CN's II-XII intact bilaterally and moves all extremities Sensorium / Orientation: awake, alert, oriented to person, oriented to place and oriented to time Speech: speech normal Debridement Note Debridement Note Wound debrided: Ulceration of the dorsal right foot Laterality: Right Wound Grade/Stage: Patricia Grade 1 Type of Debridement: Excisional debridement Anesthesia Used: 5% Lidocaine Gel Depth: Down to and including healthy tissue and in the subcutaneous layer Percentage of wound debrided: 100 Instrument Used: 5mm curette Tissue Removed: Bioburden and devitalized tissue Severity: Fat Layer Exposed Amount of bleeding with debridement: Mild Bleeding Controlled with: Compression and gauze Patient tolerated procedure: Patient tolerated procedure well Post-Debridement Measurements and Additional Note: Post-Debridement Measurements/Treatment - Nurse 1 - General Ulcer Assessment Start: 04/04/25 10:23 Freq: Status: Active Protocol: [email or web address] Activity Type Activity Date Activity User E-sign Co-sign Detail Recorded Client Recorded Date Recorded By Document 04/04/25 10:23 JUAN RAMON [id number] 04/04/25 10:28 JUAN RAMON 04/04/25 10:23 - Today's Visit Information Type of service Initial Visit Arrival Mode Wheelchair Patient Identification Verified (Name & Yes ) Patient Requires Transmission-Based No Precautions Height and Weight Height 6 ft Weight 180 lb Weight in Pounds 180.0 lbs Body Mass Index (BMI) 24.4 BMI Classification Normal Vital Signs Temperature (97.8 F-99.1 F) 97.5 F L Temperature Source Temporal Pulse Rate (60-100) 82 Pulse Location Monitor Respiratory Rate (12-18) 16 Respiratory rate source Observation Blood Pressure (90/60-120/80) 107/80 Blood Pressure Mean 89 Source Monitor Position Semi-Fowlers Blood Pressure Location Right Arm History Since Last Visit- (Skip if this is Patient's initial visit) Left Footwear Surgical Shoe with pressure relief insole Right Footwear Surgical Shoe with pressure relief insole Pain Scale: 0-10 Numeric Is Patient Pain Free? Yes WC - Nurse 1 - General Ulcer Measurement Start: 04/04/25 10:23 Freq: Status: Active Protocol: Activity Type Activity Date Activity User E-sign Co-sign Detail Recorded Client Recorded Date Recorded By Document 04/04/25 10:23 JUAN RAMON [id number] 04/04/25 10:28 JUAN RAMON 04/04/25 10:23 Wound Center Nurse 1 20-right medial dorsal foot -Combined with other wound No -Current Size (cm) - Length 1 -Current Size (cm) - Width 2 -Current Size (cm) - Depth 0.1 -Total Square Cm 2 -Photo Taken Yes -Epithelialization Medium 34-66% -Tunneling No -Circular Undermining No -Exudate Amt Medium -Exudate Type Serosanguineous -Wound Margin Flat & Intact -Granulation Amt Medium (34-66%) -Granulation Quality [place] -Slough/Fibrin Yes -Necrosis Amt Small (1-33%) -Necrotic Tissue Type Adherent Slough -Structure Exposed N/A -Texture (Yuliet-wound Skin Appearance) Assessed, Localized Edema -Moisture (Yuliet-wound Skin Appearance) No Abnormality, Dry/Scaly -Color (Yuliet-wound Skin Appearance) Assessed -Temperature (Yuliet-wound Skin No Abnormality Appearance) (Pt Warm) -Tenderness on Palpation (Yuliet-wound No Skin Appearance) -Ulcer Cleansing Soap and Water -Foul Odor after Cleansing No -Anesthetic Used 5% Lidocaine Gel 19-right lateral dorsal foot -Combined with other wound No -Current Size (cm) - Length 3.3 -Current Size (cm) - Width 3.3 -Current Size (cm) - Depth 0.1 -Total Square Cm 10.89 -Photo Taken Yes -Epithelialization Small 1-33% -Tunneling No -Undermining/Tunneling No -Circular Undermining No -Exudate Amt Medium -Exudate Type Serosanguineous -Wound Margin Distinct, Outline Attached -Granulation Amt Medium (34-66%) -Granulation Quality [place] -Slough/Fibrin Yes -Necrosis Amt Medium (34-66%) -Necrotic Tissue Type Adherent Slough -Structure Exposed N/A -Texture (Yuliet-wound Skin Appearance) Assessed, Localized Edema -Moisture (Yuliet-wound Skin Appearance) Assessed,Dry/ Scaly -Color (Yuliet-wound Skin Appearance) Assessed -Temperature (Yuliet-wound Skin No Abnormality Appearance) (Pt Warm) -Tenderness on Palpation (Yuliet-wound No Skin Appearance) -Ulcer Cleansing Soap and Water -Foul Odor after Cleansing No -Anesthetic Used 5% Lidocaine Gel Lower Limb Edema Present Yes Right Calf (cm) 30 Right Ankle (cm) 22 Left Calf (cm) 31.0 Left Ankle (cm) 23.4 WC - Nurse 2 - General Ulcer CM Notes Start: 04/04/25 10:23 Freq: Status: Active Protocol: Activity Type Activity Date Activity User E-sign Co-sign Detail Recorded Client Recorded Date Recorded By Document 04/04/25 10:42 DS [id number] 04/04/25 10:47 DS 04/04/25 10:42 Wound Center Nurse 2 20-right medial dorsal foot -Time 10:42 -Correct Patient Yes -Correct Side, Site, Position Yes -Correct Procedure Yes -Procedure Performed Yes -Type of Procedure Debridement -Clinical Debridement Subcutaneous -Tissue Removed Subcutaneous -Post Debridement (cm) - Length 2.3 -Post Debridement (cm) - Width 2.4 -Post Debridement (cm) - Depth 0.1 -Total Square (Post) (cm) 5.52 -Area of Debridement (cm) - Length 2.3 -Area of Debridement (cm) - Width 2.4 -Total Square (Area) (cm) 5.52 -Tunneling No -Undermining/Tunneling No -Circular Undermining No -Wound/Ulcer Outcome Not Healed -Ulcer Cleansing gauze -Foul Odor after Cleansing No -Bioengineered Tissue No -Bleeding Controlled with Pressure -Treatment Response Procedure Tolerated Well -Debridement - Subq, 1st 20sq cm Yes 19-right lateral dorsal foot -Time 10:43 -Correct Patient Yes -Correct Side, Site, Position Yes -Correct Procedure Yes -Procedure Performed Yes -Type of Procedure Debridement -Clinical Debridement Subcutaneous -Tissue Removed Subcutaneous -Post Debridement (cm) - Length 3.0 -Post Debridement (cm) - Width 2.6 -Post Debridement (cm) - Depth 0.1 -Total Square (Post) (cm) 7.80 -Area of Debridement (cm) - Length 3.0 -Area of Debridement (cm) - Width 2.6 -Total Square (Area) (cm) 7.80 -Tunneling No -Undermining/Tunneling No -Circular Undermining No -Wound/Ulcer Outcome Not Healed -Ulcer Cleansing gauze -Foul Odor after Cleansing No -Bioengineered Tissue No -Bleeding Controlled with Pressure -Treatment Response Procedure Tolerated Well -Debridement - Subq, 1st 20sq cm No Pain Scale: 0-10 Numeric Is Patient Pain Free? Yes - Nurse 3 - General Ulcer D/C NN Start: 04/04/25 10:23 Freq: Status: Active Protocol: Activity Type Activity Date Activity User E-sign Co-sign Detail Recorded Client Recorded Date Recorded By Document 04/04/25 11:30 [id number] 04/04/25 11:31 04/04/25 11:30 Wound Care Center Nurse 3 20-right medial dorsal foot -Ulcer Cleansing Rinsed/ Irrigated with Saline -Foul Odor after Cleansing No -Primary Dressing Applied Aquacel Extra -Primary Dressing Covered/Secured with Dry Gauze -Aquacel Extra 1 19-right lateral dorsal foot -Ulcer Cleansing Rinsed/ Irrigated with Saline -Foul Odor after Cleansing No -Primary Dressing Applied Aquacel Extra -Primary Dressing Covered/Secured with Dry Gauze -Aquacel Extra 0 LLE -Tubular Bandage Double Layer -Size of Tubigrip Used Size D -Size D ($) 2 RLE -Multi-Layered Wrap Application Unna Boot - Right -Unna- Right (Qty applied) 1 Pain Scale: 0-10 Numeric Is Patient Pain Free? Yes - Visit Discharge Discharge Condition Stable Ambulatory Status Ambulatory, Walker, Wheelchair Transportation Private Auto Medication Reconcilliation completed & Yes provided to patient/care provider Clinical Summary of Care Provided Yes Charges/Coding Multi Select Codes Visit Charges Office Visit/Consults: 35653 OV L3 Est 20min Integumentary Integumentary CPT Codes: 46575 Samina subq tissue 20 sq cm/< Assessment/Plan Assessment/Plan (1) Non-pressure 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 foot with fat layer exposed: CODE(S): L97.512 - Non-pressure 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 foot with fat layer exposed (2) Venous stasis dermatitis of right lower extremity: CODE(S): I87.2 - Venous insufficiency (chronic) (peripheral) (3) Venous insufficiency (chronic) (peripheral): CODE(S): I87.2 - Venous insufficiency (chronic) (peripheral) (4) Bilateral lower extremity edema: CODE(S): R60.0 - Localized edema (5) Swelling of both lower extremities: CODE(S): M79.89 - Other specified soft tissue disorders (6) Peripheral vascular disease: CODE(S): I73.9 - Peripheral vascular disease, unspecified (7) Debility: CODE(S): R53.81 - Other malaise (8) Tinea unguium: CODE(S): B35.1 - Tinea unguium (9) Polyneuropathy: CODE(S): G62.9 - Polyneuropathy, unspecified PLAN: Plan This is an 85-year-old male with deformities in his right lower extremity and 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 He presented anew with an ulceration on the dorsum of his right foot. Once again, the patient has been advised to elevate his lower extremities as much as possible. Elevation is to be to heart level, or higher. He has been encouraged to sleep on a flat mattress at night. Continued compression by means of double Tubigrips (left leg) at the patient's longterm has been advised. A skin moisturizer such as Aquaphor has been recommended for long-term use of the dry, scaly, eczematous skin in the patient's lower extremities. On the right, we are to implement the use of moistened Aquacel Extra to the ulceration on the dorsum of the right foot. Compression will be provided by means of an Unna compression wrap, which will be changed twice weekly. Patient is to return in 1 week for reevaluation. Total time: 25 minutes
[2025-04-11 10:40] VITALS: BP 115/56; PULSE 60; RESP 16; TEMP 35.9; BMI 24.4
--- NOTE | 2025-04-12 14:37 | WC ---
PHOTO-RIGHT LATERAL DORSAL 04/11/25
--- NOTE | 2025-04-12 14:38 | WC ---
PHOTO-RIGHT MED 04/11/25
--- NOTE | 2025-04-13 08:11 | PCM.WC.HP ---
History of Present Illness Date of Service: 04/11/25 Chief Complaint: Chronic, non-healing right lower extremity and foot ulcerations History of Wound: This is an 85-year-old male who has been a long-term patient at the [facility]. Until approximately 6 weeks prior to this presentation, the patient had been treated for ulcerations on his right foot and calf. His wounds were subsequently healed, and the patient was discharged on February 14, 2025. The patient has a history of venous stasis ulcerations, chronic venous insufficiency, and venous stasis dermatitis. At the time of his most recent discharge, the patient was instructed to continue the conservative treatment measures relative to his chronic venous disease, which included leg elevation, avoidance of prolonged idle sitting, activity as tolerated, and daily compression by means of Tubigrips. These instructions were conveyed to the patient's long term staff. The patient recently presented with a new ulceration on the dorsum of his right foot. He also has swelling and edema in his lower extremities bilaterally. 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 The patient is minimally ambulatory and only transfers from bed to wheelchair and wheelchair to bed. The patient is a resident of a [facility]. It is noted that the patient has previously undergone angioplasty and stent placement in the common iliac veins bilaterally, a procedure performed by Dr. Hossein Arvizu on July 09, 2023. [facility] Medical History Swelling of both lower extremities Non-pressure chronic ulcer 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 Venous stasis ulcer Venous stasis dermatitis of right lower extremity Non-pressure chronic ulcer of lower leg with fat layer exposed Cellulitis of leg, right Debility Ulcer of right heel and midfoot with fat layer exposed Ulcer of left lower extremity with fat layer exposed Ulcer of right lower extremity with fat layer exposed Hypertension Diabetes Vascular dementia Hyperlipidemia Polyneuropathy Heart failure Peripheral vascular disease Home Medications Medication Instructions Recorded Last Taken Type atorvastatin 40 mg tablet 40 mg PO QHS 10/09/22 Unknown History cyanocobalamin (vitamin B-12) 500 500 mcg PO DAILY 10/09/22 Unknown History mcg tablet diphenhydramine 25 2 tab PO QHS PRN Pain 10/09/22 Unknown History mg-acetaminophen 500 mg tablet (Acetaminophen PM Extra Strength) docusate sodium 100 mg capsule 100 mg PO BID 10/09/22 Unknown History furosemide 40 mg tablet (Lasix) 40 mg PO DAILY 10/09/22 Unknown History gabapentin 300 mg capsule 300 mg PO TID 10/09/22 Unknown History magnesium hydroxide 400 mg/5 mL 30 ml PO DAILY PRN Constipation 10/09/22 Unknown History oral suspension (Milk of Magnesia) metformin 500 mg tablet,extended 500 mg PO DAILY 10/09/22 Unknown History release 24 hr multivitamin 1 tab PO DAILY 10/09/22 Unknown History polyethylene glycol 3350 17 gram 17 g PO DAILY 10/09/22 Unknown History oral powder packet (Miralax) sennosides 8.6 mg capsule (senna) 8.6 mg PO DAILY 10/09/22 Unknown History tamsulosin 0.4 mg capsule 0.8 mg PO QHS 10/09/22 Unknown History ascorbic acid (vitamin C) 500 mg mg PO 08/13/23 Unknown History capsule cholecalciferol (vitamin D3) 25 25 mcg PO DAILY 08/13/23 Unknown History mcg (1,000 unit) capsule clopidogrel 75 mg tablet (Plavix) 75 mg PO DAILY 08/13/23 Unknown History warfarin 5 mg tablet 9 mg PO DAILY 08/13/23 Unknown History zinc acetate 50 mg (zinc) capsule 50 mg PO DAILY 08/13/23 Unknown History Allergy/AdvReac Type Severity Reaction Status Date / Time No Known Allergies Allergy Verified 01/13/24 11:13 Family History Other CAD (coronary artery disease) Colon cancer Heart disease Hypertension Myocardial infarction Thyroid disorder Social History Smoking Status: Never smoker Vital Signs Vital Signs Vital Signs: Weight Weight: 180 lb Body Mass Index (BMI) 24.4 Physical Exam Const alert, oriented x3 and no apparent distress General Appearance: cooperative, comfortable and well developed Orientation / Consciousness: awake, oriented to person, oriented to place and oriented to time Exam Limitations: no limitations HEENT normocephalic and head/scalp atraumatic Head and Scalp: normal to inspection, normocephalic and atraumatic Face and Sinus: normal facial exam Nose: external nose normal External Ear: external ears normal Eyes EOMs intact bilaterally Resp normal respiratory effort, normal air movement, no retractions and no use of accessory muscles Effort and Inspection: able to speak in complete sentences Skin Wound Narrative: An ulceration is present on the dorsal surface of the patient's right foot. It appears to be full-thickness, extending through all layers of the dermis and into subcutaneous tissues. Ulcer margins are well beveled. Dimensions are documented elsewhere. The ulceration appears larger than it was 1 week prior. There is no sign of infection or cellulitis. There is a moderate amount of bioburden and nonviable tissue. There is also an ulceration on the medial aspect of the patient's right foot. It is also full-thickness in nature. Ulcer margins are well beveled. Dimensions are documented elsewhere. There is no sign of infection or cellulitis. Moderate swelling and edema are noted in the right lower extremity. Lipodermatosclerosis, eczematous dermatitis, and hyperpigmentation are noted in the right gaiter area. A flexion contracture of the knee and an equinus contracture of the ankle with a varus hindfoot alignment are noted. Neuro oriented x3, CN's II-XII intact bilaterally and moves all extremities Sensorium / Orientation: awake, alert, oriented to person, oriented to place and oriented to time Speech: speech normal Psych cooperative, affect normal and speech normal Attitude: calm Activity / Motor Behavior: appropriate eye contact Mood & Affect: euthymic mood Debridement Note Debridement Note Wound debrided: Ulceration of the dorsal and medial right foot Laterality: Right Wound Grade/Stage: Patricia Grade 1 Type of Debridement: Excisional debridement Anesthesia Used: 5% Lidocaine Gel Depth: Down to and including healthy tissue and in the subcutaneous layer Percentage of wound debrided: 100 Instrument Used: 5mm curette Tissue Removed: Bioburden and devitalized tissue Severity: Fat Layer Exposed Amount of bleeding with debridement: Mild Bleeding Controlled with: Compression and gauze Patient tolerated procedure: Patient tolerated procedure well Post-Debridement Measurements and Additional Note: Post-Debridement Measurements/Treatment SASHA - Nurse 1 - General Ulcer Assessment Start: 04/04/25 10:23 Freq: Status: Active Protocol: MARTA Activity Type Activity Date Activity User E-sign Co-sign Detail Recorded Client Recorded Date Recorded By Document 04/04/25 10:23 JUAN RAMON [id number] 04/04/25 10:28 JUAN RAMON Document 04/11/25 10:40 JUAN RAMON [id number] 04/11/25 10:51 04/04/25 04/11/25 10:23 10:40 - Today's Visit Information Type of service Initial Visit Follow-up Visit (Physician/COMBO WELDER ) Arrival Mode Wheelchair Ambulatory, Walker, Wheelchair Patient Identification Verified (Name & Yes Yes ) Patient Requires Transmission-Based No No Precautions Height and Weight Height 6 ft Weight 180 lb Weight in Pounds 180.0 lbs Body Mass Index (BMI) 24.4 24.4 BMI Classification Normal Normal Vital Signs Temperature (97.8 F-99.1 F) 97.5 F L 96.7 F L Temperature Source Temporal Temporal Pulse Rate (60-100) 82 60 Pulse Location Monitor Monitor Respiratory Rate (12-18) 16 16 Respiratory rate source Observation Observation Blood Pressure (90/60-120/80) 107/80 115/56 L Blood Pressure Mean 89 75 Source Monitor Monitor Position Semi-Fowlers Semi-Fowlers Blood Pressure Location Right Arm Left Arm History Since Last Visit- (Skip if this is Patient's initial visit) Have you changed medications since your Yes last visit? Any new allergies or adverse reactions No Had a fall/change in ADL's that may No increase risk of falls Signs or symptoms of abuse and/or No neglect since last visit Have you been in the hospital since your No last visit? Has dressing in place as prescribed Yes Has compression in place as prescribed Yes Has offloadiing in place as prescribed N/A Experienced any changes in pain level or No management Left Footwear Surgical Shoe Surgical Shoe with pressure with pressure relief insole relief insole Right Footwear Surgical Shoe Surgical Shoe with pressure with pressure relief insole relief insole Pain Scale: 0-10 Numeric Is Patient Pain Free? Yes Yes - Nurse 1 - General Ulcer Measurement Start: 04/04/25 10:23 Freq: Status: Active Protocol: Activity Type Activity Date Activity User E-sign Co-sign Detail Recorded Client Recorded Date Recorded By Document 04/04/25 10:23 JUAN RAMON [id number] 04/04/25 10:28 Document 04/11/25 10:40 JUAN RAMON [id number] 04/11/25 10:51 04/04/25 04/11/25 10:23 10:40 Wound Center Nurse 1 20-right medial dorsal foot -Combined with other wound No No -Current Size (cm) - Length 1 1.5 -Current Size (cm) - Width 2 1.6 -Current Size (cm) - Depth 0.1 0.1 -Total Square Cm 2 2.40 -Photo Taken Yes Yes -Epithelialization Medium 34-66% Medium 34-66% -Tunneling No No -Undermining/Tunneling No -Circular Undermining No No -Exudate Amt Medium Small -Exudate Type Serosanguineous Serosanguineous -Wound Margin Flat & Intact Flat & Intact -Granulation Amt Medium (34-66%) Large (67-100%) -Granulation Quality [place] -Slough/Fibrin Yes Yes -Necrosis Amt Small (1-33%) Small (1-33%) -Necrotic Tissue Type Adherent Slough Adherent Slough -Structure Exposed N/A N/A -Texture (Yuliet-wound Skin Appearance) Assessed, Assessed, Localized Edema Localized Edema -Moisture (Yulite-wound Skin Appearance) No Abnormality, Assessed,Dry/ Dry/Scaly Scaly -Color (Yuliet-wound Skin Appearance) Assessed Assessed, Hemosiderin Staining -Temperature (Yuliet-wound Skin No Abnormality No Abnormality Appearance) (Pt Warm) (Pt Warm) -Tenderness on Palpation (Yuliet-wound No No Skin Appearance) -Ulcer Cleansing Soap and Water Soap and Water -Foul Odor after Cleansing No No -Anesthetic Used 5% Lidocaine 5% Lidocaine Gel Gel 19-right lateral dorsal foot -Combined with other wound No No -Current Size (cm) - Length 3.3 3.2 -Current Size (cm) - Width 3.3 4.2 -Current Size (cm) - Depth 0.1 0.2 -Total Square Cm 10.89 13.44 -Photo Taken Yes Yes -Epithelialization Small 1-33% Small 1-33% -Tunneling No No -Undermining/Tunneling No No -Circular Undermining No No -Exudate Amt Medium Medium -Exudate Type Serosanguineous Serosanguineous -Wound Margin Distinct, Flat & Intact Outline Attached -Granulation Amt Medium (34-66%) Large (67-100%) -Granulation Quality [place] -Slough/Fibrin Yes Yes -Necrosis Amt Medium (34-66%) Small (1-33%) -Necrotic Tissue Type Adherent Slough Adherent Slough -Structure Exposed N/A N/A -Texture (Yuliet-wound Skin Appearance) Assessed, Assessed, Localized Edema Localized Edema -Moisture (Yuliet-wound Skin Appearance) Assessed,Dry/ Assessed,Dry/ Scaly Scaly -Color (Yuliet-wound Skin Appearance) Assessed Assessed, Hemosiderin Staining -Temperature (Yuliet-wound Skin No Abnormality No Abnormality Appearance) (Pt Warm) (Pt Warm) -Tenderness on Palpation (Yuliet-wound No No Skin Appearance) -Ulcer Cleansing Soap and Water Soap and Water -Foul Odor after Cleansing No Yes -Anesthetic Used 5% Lidocaine 5% Lidocaine Gel Gel Lower Limb Edema Present Yes No Right Calf (cm) 30 30 Right Ankle (cm) 22 22.5 Left Calf (cm) 31.0 Left Ankle (cm) 23.4 WC - Nurse 2 - General Ulcer CM Notes Start: 04/04/25 10:23 Freq: Status: Active Protocol: Activity Type Activity Date Activity User E-sign Co-sign Detail Recorded Client Recorded Date Recorded By Document 04/04/25 10:42 DS [id number] 04/04/25 10:47 DS Document 04/11/25 11:16 DS [id number] 04/11/25 11:21 DS 04/04/25 04/11/25 10:42 11:16 Wound Center Nurse 2 20-right medial dorsal foot -Time 10:42 11:16 -Correct Patient Yes Yes -Correct Side, Site, Position Yes Yes -Correct Procedure Yes Yes -Procedure Performed Yes Yes -Type of Procedure Debridement Debridement -Clinical Debridement Subcutaneous Subcutaneous -Tissue Removed Subcutaneous Subcutaneous -Post Debridement (cm) - Length 2.3 1.5 -Post Debridement (cm) - Width 2.4 2.0 -Post Debridement (cm) - Depth 0.1 0.1 -Total Square (Post) (cm) 5.52 3.00 -Area of Debridement (cm) - Length 2.3 1.5 -Area of Debridement (cm) - Width 2.4 2.0 -Total Square (Area) (cm) 5.52 3.00 -Tunneling No No -Undermining/Tunneling No No -Circular Undermining No No -Wound/Ulcer Outcome Not Healed Not Healed -Ulcer Cleansing gauze gauze -Foul Odor after Cleansing No No -Bioengineered Tissue No No -Bleeding Controlled with Pressure Pressure -Treatment Response Procedure Tolerated Well -Debridement - Subq, 1st 20sq cm Yes No 19-right lateral dorsal foot -Time 10:43 11:17 -Correct Patient Yes Yes -Correct Side, Site, Position Yes Yes -Correct Procedure Yes Yes -Procedure Performed Yes Yes -Type of Procedure Debridement Debridement -Clinical Debridement Subcutaneous Subcutaneous -Tissue Removed Subcutaneous Subcutaneous -Post Debridement (cm) - Length 3.0 3.0 -Post Debridement (cm) - Width 2.6 5.0 -Post Debridement (cm) - Depth 0.1 0.1 -Total Square (Post) (cm) 7.80 15.00 -Area of Debridement (cm) - Length 3.0 3.0 -Area of Debridement (cm) - Width 2.6 5.0 -Total Square (Area) (cm) 7.80 15.00 -Tunneling No No -Undermining/Tunneling No No -Circular Undermining No No -Wound/Ulcer Outcome Not Healed Not Healed -Ulcer Cleansing gauze -Foul Odor after Cleansing No No -Bioengineered Tissue No No -Bleeding Controlled with Pressure Pressure -Treatment Response Procedure Procedure Tolerated Well Tolerated Well -Debridement - Subq, 1st 20sq cm No Yes Pain Scale: 0-10 Numeric Is Patient Pain Free? Yes Yes - Nurse 3 - General Ulcer D/C NN Start: 04/04/25 10:23 Freq: Status: Active Protocol: Activity Type Activity Date Activity User E-sign Co-sign Detail Recorded Client Recorded Date Recorded By Document 04/04/25 11:30 [id number] 04/04/25 11:31 Document 04/11/25 16:16 [id number] 04/11/25 16:17 04/04/25 04/11/25 11:30 16:16 Wound Care Center Nurse 3 20-right medial dorsal foot -Ulcer Cleansing Rinsed/ Rinsed/ Irrigated with Irrigated with Saline Saline -Foul Odor after Cleansing No No -Primary Dressing Applied Aquacel Extra Aquacel AG 4x4, Optilok 5x5 1/2 -Primary Dressing Covered/Secured with Dry Gauze -Aquacel Extra 1 -Aquacel AG 4x4 1 -Optilok 5x5 1/2 1 19-right lateral dorsal foot -Ulcer Cleansing Rinsed/ Rinsed/ Irrigated with Irrigated with Saline Saline -Foul Odor after Cleansing No No -Primary Dressing Applied Aquacel Extra Aquacel AG 4x4, Optilok 5x5 1/2 -Primary Dressing Covered/Secured with Dry Gauze -Aquacel Extra 0 -Aquacel AG 4x4 0 -Optilok 5x5 1/2 0 LLE -Tubular Bandage Double Layer -Size of Tubigrip Used Size D -Size D ($) 2 RLE -Lotion applied to leg before Yes compression wrap -Multi-Layered Wrap Application Unna Boot - Unna Boot - Right Right -Unna- Right (Qty applied) 1 1 Pain Scale: 0-10 Numeric Is Patient Pain Free? Yes Yes WC - Visit Discharge Discharge Condition Stable Stable Ambulatory Status Ambulatory, Walker, Walker, Wheelchair Wheelchair Transportation Private Auto Private Auto Medication Reconcilliation completed & Yes Yes provided to patient/care provider Clinical Summary of Care Provided Yes Yes Charges/Coding Procedures Integumentary [id number]: [id number] Samina subq tissue 20 sq cm/< Assessment/Plan Assessment/Plan (1) Non-pressure 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 foot with fat layer exposed: CODE(S): L97.512 - Non-pressure 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 foot with fat layer exposed (2) Venous stasis dermatitis of right lower extremity: CODE(S): I87.2 - Venous insufficiency (chronic) (peripheral) (3) Venous insufficiency (chronic) (peripheral): CODE(S): I87.2 - Venous insufficiency (chronic) (peripheral) (4) Bilateral lower extremity edema: CODE(S): R60.0 - Localized edema (5) Swelling of both lower extremities: CODE(S): M79.89 - Other specified soft tissue disorders (6) Peripheral vascular disease: CODE(S): I73.9 - Peripheral vascular disease, unspecified (7) Debility: CODE(S): R53.81 - Other malaise (8) Tinea unguium: CODE(S): B35.1 - Tinea unguium (9) Polyneuropathy: CODE(S): G62.9 - Polyneuropathy, unspecified PLAN: Plan This is an 85-year-old male with deformities in his right lower extremity and 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 He presented anew with an ulceration on the dorsum and medial portion of his right foot. Once again, the patient has been advised to elevate his lower extremities as much as possible. Elevation is to be to heart level, or higher. He has been encouraged to sleep on a flat mattress at night. Continued compression by means of double Tubigrips (left leg) at the patient's long term has been advised. A skin moisturizer such as Aquaphor has been recommended for long-term use for the dry, scaly, eczematous skin in the patient's lower extremities. On the right, we are to continue the use of moistened Aquacel Extra to the ulceration on the dorsum of the right foot. Compression will be provided by means of an Unna compression wrap, which will be changed twice weekly. It is noted that ultrasound assessment of the inferior vena cava and iliac vein stents was performed in July 2024, exhibiting normal venous flow patterns. It has been nearly 2 years since the patient's last lower extremity arterial study, and we will now request a repeat study to assess lower extremity arterial status. The patient is to return in 1 week for reevaluation. Total time: 26 minutes
[2025-04-18 10:56] VITALS: BP 100/62; PULSE 62; RESP 18; TEMP 36.4; BMI 24.4
--- NOTE | 2025-04-19 08:57 | WC ---
PHOTO-RIGHT LAT DORSAL 04/18/25
--- NOTE | 2025-04-19 08:58 | WC ---
PHOTO-RIGHT LAT DORSAL 04/18/25
--- NOTE | 2025-04-19 08:59 | WC ---
PHOTO-RIGHT MED DORSAL 04/18/25
--- NOTE | 2025-04-20 16:57 | PCM.WC.HP ---
History of Present Illness Date of Service: 04/18/25 Chief Complaint: Chronic, non-healing right foot ulcerations History of Wound: This is an 85-year-old male who has been a long-term patient at the [facility]. Until approximately 6 weeks prior to this presentation, the patient had been treated for ulcerations on his right foot and calf. His wounds were subsequently healed, and the patient was discharged on February 14, 2025. The patient has a history of venous stasis ulcerations, chronic venous insufficiency, and venous stasis dermatitis. At the time of his most recent discharge, the patient was instructed to continue the conservative treatment measures relative to his chronic venous disease, which included leg elevation, avoidance of prolonged idle sitting, activity as tolerated, and daily compression by means of Tubigrips. These instructions were conveyed to the patient's [place] [facility] staff. The patient recently presented with new ulcerations on the dorsum and medial portion of his right foot. He also has swelling and edema in his lower extremities bilaterally. 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 The patient is minimally ambulatory and only transfers from bed to wheelchair and wheelchair to bed. The patient is a resident of a [facility]. It is noted that the patient has previously undergone angioplasty and stent placement in the common iliac veins bilaterally, a procedure performed by Dr. Hossein Arvizu on July 09, 2023. FOR[facility]LY [facility], LATER [facility] Medical History Swelling of both lower extremities Non-pressure chronic ulcer 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 Venous stasis ulcer Venous stasis dermatitis of right lower extremity Non-pressure chronic ulcer of lower leg with fat layer exposed Cellulitis of leg, right Debility Ulcer of right heel and midfoot with fat layer exposed Ulcer of left lower extremity with fat layer exposed Ulcer of right lower extremity with fat layer exposed Hypertension Diabetes Vascular dementia Hyperlipidemia Polyneuropathy Heart failure Peripheral vascular disease Home Medications Medication Instructions Recorded Last Taken Type atorvastatin 40 mg tablet 40 mg PO QHS 10/09/22 Unknown History cyanocobalamin (vitamin B-12) 500 500 mcg PO DAILY 10/09/22 Unknown History mcg tablet diphenhydramine 25 2 tab PO QHS PRN Pain 10/09/22 Unknown History mg-acetaminophen 500 mg tablet (Acetaminophen PM Extra Strength) docusate sodium 100 mg capsule 100 mg PO BID 10/09/22 Unknown History furosemide 40 mg tablet (Lasix) 40 mg PO DAILY 10/09/22 Unknown History gabapentin 300 mg capsule 300 mg PO TID 10/09/22 Unknown History magnesium hydroxide 400 mg/5 mL 30 ml PO DAILY PRN Constipation 10/09/22 Unknown History oral suspension (Milk of Magnesia) metformin 500 mg tablet,extended 500 mg PO DAILY 10/09/22 Unknown History release 24 hr multivitamin 1 tab PO DAILY 10/09/22 Unknown History polyethylene glycol 3350 17 gram 17 g PO DAILY 10/09/22 Unknown History oral powder packet (Miralax) sennosides 8.6 mg capsule (senna) 8.6 mg PO DAILY 10/09/22 Unknown History tamsulosin 0.4 mg capsule 0.8 mg PO QHS 10/09/22 Unknown History ascorbic acid (vitamin C) 500 mg mg PO 08/13/23 Unknown History capsule cholecalciferol (vitamin D3) 25 25 mcg PO DAILY 08/13/23 Unknown History mcg (1,000 unit) capsule clopidogrel 75 mg tablet (Plavix) 75 mg PO DAILY 08/13/23 Unknown History warfarin 5 mg tablet 9 mg PO DAILY 08/13/23 Unknown History zinc acetate 50 mg (zinc) capsule 50 mg PO DAILY 08/13/23 Unknown History Allergy/AdvReac Type Severity Reaction Status Date / Time No Known Allergies Allergy Verified 01/13/24 11:13 Family History Other CAD (coronary artery disease) Colon cancer Heart disease Hypertension Myocardial infarction Thyroid disorder Social History Smoking Status: Never smoker Vital Signs Vital Signs Vital Signs: Weight Weight: 180 lb Body Mass Index (BMI) 24.4 Physical Exam Const alert, oriented x3 and no apparent distress General Appearance: cooperative, comfortable and well developed Orientation / Consciousness: awake, oriented to person, oriented to place and oriented to time Exam Limitations: no limitations HEENT normocephalic and head/scalp atraumatic Head and Scalp: normal to inspection, normocephalic and atraumatic Face and Sinus: normal facial exam Nose: external nose normal External Ear: external ears normal Eyes EOMs intact bilaterally Resp normal respiratory effort, normal air movement, no retractions and no use of accessory muscles Effort and Inspection: able to speak in complete sentences Skin Wound Narrative: An ulceration is present on the dorsal surface of the patient's right foot. It appears to be full-thickness, extending through all layers of the dermis and into subcutaneous tissues. Ulcer margins are well beveled. Dimensions are documented elsewhere. The ulceration appears larger than it was 1 week prior. There is no sign of infection or cellulitis. There is a moderate amount of bioburden and nonviable tissue. There is also an ulceration on the medial aspect of the patient's right foot. It is also full-thickness in nature. Ulcer margins are well beveled. Dimensions are documented elsewhere. There is no sign of infection or cellulitis. Moderate swelling and edema are noted in the right lower extremity. Lipodermatosclerosis, eczematous dermatitis, and hyperpigmentation are noted in the right gaiter area. A flexion contracture of the knee and an equinus contracture of the ankle with a varus hindfoot alignment are noted. Neuro oriented x3, CN's II-XII intact bilaterally and moves all extremities Sensorium / Orientation: awake, alert, oriented to person, oriented to place and oriented to time Speech: speech normal Psych cooperative, affect normal and speech normal Attitude: calm Activity / Motor Behavior: appropriate eye contact Mood & Affect: euthymic mood Debridement Note Debridement Note Wound debrided: Ulceration of the dorsal and medial right foot Laterality: Right Wound Grade/Stage: Patricia Grade 1 Type of Debridement: Excisional debridement Anesthesia Used: 5% Lidocaine Gel Depth: Down to and including healthy tissue and in the subcutaneous layer Percentage of wound debrided: 100 Instrument Used: 5mm curette Tissue Removed: Bioburden and devitalized tissue Severity: Fat Layer Exposed Amount of bleeding with debridement: Mild Bleeding Controlled with: Compression and gauze Patient tolerated procedure: Patient tolerated procedure well Post-Debridement Measurements and Additional Note: Post-Debridement Measurements/Treatment SASHA - Nurse 1 - General Ulcer Assessment Start: 04/04/25 10:23 Freq: Status: Active Protocol: MARTA Activity Type Activity Date Activity User E-sign Co-sign Detail Recorded Client Recorded Date Recorded By Document 04/04/25 10:23 JUAN RAMON [id number] 04/04/25 10:28 JUAN RAMON Document 04/11/25 10:40 JF [id number] 04/11/25 10:51 JF Document 04/18/25 10:56 JF [id number] 04/18/25 10:58 JF 04/04/25 04/11/25 04/18/25 10:23 10:40 10:56 - Today's Visit Information Type of service Initial Visit Follow-up Visit Follow-up Visit (Physician/WAGON DRIVER (Physician/WAGON DRIVER ) ) Arrival Mode Wheelchair Ambulatory, Ambulatory, Walker, Walker, Wheelchair Wheelchair Transfer Assistance Manual Patient Identification Verified (Name & Yes Yes Yes ) Patient Requires Transmission-Based No No No Precautions Height and Weight Height 6 ft Weight 180 lb Weight in Pounds 180.0 lbs Body Mass Index (BMI) 24.4 24.4 24.4 BMI Classification Normal Normal Normal Vital Signs Temperature (97.8 F-99.1 F) 97.5 F L 96.7 F L 97.6 F L Temperature Source Temporal Temporal Temporal Pulse Rate (60-100) 82 60 62 Pulse Location Monitor Monitor Monitor Respiratory Rate (12-18) 16 16 18 Respiratory rate source Observation Observation Observation Blood Pressure (90/60-120/80) 107/80 115/56 L 100/62 Blood Pressure Mean 89 75 74 Source Monitor Monitor Monitor Position Semi-Fowlers Semi-Fowlers Semi-Fowlers Blood Pressure Location Right Arm Left Arm Right Arm History Since Last Visit- (Skip if this is Patient's initial visit) Have you changed medications since your Yes Yes last visit? Any new allergies or adverse reactions No No Had a fall/change in ADL's that may No No increase risk of falls Signs or symptoms of abuse and/or No neglect since last visit Have you been in the hospital since your No No last visit? Has dressing in place as prescribed Yes Yes Has compression in place as prescribed Yes Yes Has offloadiing in place as prescribed N/A N/A Experienced any changes in pain level or No No management Left Footwear Surgical Shoe Surgical Shoe Regular Shoe with pressure with pressure relief insole relief insole Right Footwear Surgical Shoe Surgical Shoe Regular Shoe with pressure with pressure relief insole relief insole Pain Scale: 0-10 Numeric Is Patient Pain Free? Yes Yes Yes - Nurse 1 - General Ulcer Measurement Start: 04/04/25 10:23 Freq: Status: Active Protocol: Activity Type Activity Date Activity User E-sign Co-sign Detail Recorded Client Recorded Date Recorded By Document 04/04/25 10:23 [id number] 04/04/25 10:28 JF Document 04/11/25 10:40 [id number] 04/11/25 10:51 JF Document 04/18/25 10:56 [id number] 04/18/25 10:58 04/04/25 04/11/25 04/18/25 10:23 10:40 10:56 Wound Center Nurse 1 20-right medial dorsal foot -Combined with other wound No No No -Current Size (cm) - Length 1 1.5 1.2 -Current Size (cm) - Width 2 1.6 0.6 -Current Size (cm) - Depth 0.1 0.1 0.1 -Total Square Cm 2 2.40 0.72 -Photo Taken Yes Yes Yes -Epithelialization Medium 34-66% Medium 34-66% Medium 34-66% -Tunneling No No No -Undermining/Tunneling No No -Circular Undermining No No No -Exudate Amt Medium Small Small -Exudate Type Serosanguineous Serosanguineous Serosanguineous -Wound Margin Flat & Intact Flat & Intact Flat & Intact -Granulation Amt Medium (34-66%) Large (67-100%) Medium (34-66%) -Granulation Quality [place] Red Red -Slough/Fibrin Yes Yes Yes -Necrosis Amt Small (1-33%) Small (1-33%) Small (1-33%) -Necrotic Tissue Type Adherent Slough Adherent Slough Adherent Slough -Structure Exposed N/A N/A N/A -Texture ([place]ul[place]-wound Skin Appearance) Assessed, Assessed, Assessed, Localized Edema Localized Edema Localized Edema -Moisture ([place]ul[place]-wound Skin Appearance) No Abnormality, Assessed,Dry/ No Abnormality, Dry/Scaly Scaly Dry/Scaly -Color ([place]ul[place]-wound Skin Appearance) Assessed Assessed, Assessed, Hemosiderin Hemosiderin Staining Staining -Temperature ([place]ul[place]-wound Skin No Abnormality No Abnormality No Abnormality Appearance) (Pt Warm) (Pt Warm) (Pt Warm) -Tenderness on Palpation ([place]uliet-wound No No No Skin Appearance) -Ulcer Cleansing Soap and Water Soap and Water Soap and Water -Foul Odor after Cleansing No No No -Anesthetic Used 5% Lidocaine 5% Lidocaine 5% Lidocaine Gel Gel Gel 19-right lateral dorsal foot -Combined with other wound No No No -Current Size (cm) - Length 3.3 3.2 4.2 -Current Size (cm) - Width 3.3 4.2 4.0 -Current Size (cm) - Depth 0.1 0.2 0.1 -Total Square Cm 10.89 13.44 16.80 -Photo Taken Yes Yes Yes -Epithelialization Small 1-33% Small 1-33% Small 1-33% -Tunneling No No No -Undermining/Tunneling No No No -Circular Undermining No No No -Exudate Amt Medium Medium Medium -Exudate Type Serosanguineous Serosanguineous Serosanguineous -Wound Margin Distinct, Flat & Intact Flat & Intact Outline Attached -Granulation Amt Medium (34-66%) Large (67-100%) Large (67-100%) -Granulation Quality [place] Red Red -Slough/Fibrin Yes Yes Yes -Necrosis Amt Medium (34-66%) Small (1-33%) Small (1-33%) -Necrotic Tissue Type Adherent Slough Adherent Slough Adherent Slough -Structure Exposed N/A N/A N/A -Texture ([place]ul[place]-wound Skin Appearance) Assessed, Assessed, Assessed, Localized Edema Localized Edema Localized Edema -Moisture ([place]ul[place]-wound Skin Appearance) Assessed,Dry/ Assessed,Dry/ Assessed,Dry/ Scaly Scaly Scaly -Color ([place]uliet-wound Skin Appearance) Assessed Assessed, Assessed, Hemosiderin Hemosiderin Staining Staining -Temperature ([place]ul[place]-wound Skin No Abnormality No Abnormality No Abnormality Appearance) (Pt Warm) (Pt Warm) (Pt Warm) -Tenderness on Palpation (Yuliet-wound No No No Skin Appearance) -Ulcer Cleansing Soap and Water Soap and Water Soap and Water -Foul Odor after Cleansing No Yes No -Anesthetic Used 5% Lidocaine 5% Lidocaine 5% Lidocaine Gel Gel Gel Lower Limb Edema Present Yes No Yes Right Calf (cm) 30 30 31.5 Right Ankle (cm) 22 22.5 22.9 Left Calf (cm) 31.0 Left Ankle (cm) 23.4 WC - Nurse 2 - General Ulcer CM Notes Start: 04/04/25 10:23 Freq: Status: Active Protocol: Activity Type Activity Date Activity User E-sign Co-sign Detail Recorded Client Recorded Date Recorded By Document 04/04/25 10:42 DS [id number] 04/04/25 10:47 DS Document 04/11/25 11:16 DS [id number] 04/11/25 11:21 DS Document 04/18/25 11:12 DS [id number] 04/18/25 11:19 DS 04/04/25 04/11/25 04/18/25 10:42 11:16 11:12 Wound Center Nurse 2 20-right medial dorsal foot -Time 10:42 11:16 11:12 -Correct Patient Yes Yes Yes -Correct Side, Site, Position Yes Yes Yes -Correct Procedure Yes Yes Yes -Procedure Performed Yes Yes Yes -Type of Procedure Debridement Debridement Debridement -Clinical Debridement Subcutaneous Subcutaneous Subcutaneous -Tissue Removed Subcutaneous Subcutaneous Subcutaneous -Post Debridement (cm) - Length 2.3 1.5 0.5 -Post Debridement (cm) - Width 2.4 2.0 1.7 -Post Debridement (cm) - Depth 0.1 0.1 0.1 -Total Square (Post) (cm) 5.52 3.00 0.85 -Area of Debridement (cm) - Length 2.3 1.5 0.5 -Area of Debridement (cm) - Width 2.4 2.0 1.7 -Total Square (Area) (cm) 5.52 3.00 0.85 -Tunneling No No No -Undermining/Tunneling No No No -Circular Undermining No No No -Wound/Ulcer Outcome Not Healed Not Healed Not Healed -Ulcer Cleansing gauze gauze gauze -Foul Odor after Cleansing No No No -Bioengineered Tissue No No No -Bleeding Controlled with Pressure Pressure Pressure -Treatment Response Procedure Procedure Tolerated Well Tolerated Well -Debridement - Subq, 1st 20sq cm Yes No No 19-right lateral dorsal foot -Time 10:43 11:17 11:12 -Correct Patient Yes Yes Yes -Correct Side, Site, Position Yes Yes Yes -Correct Procedure Yes Yes Yes -Procedure Performed Yes Yes Yes -Type of Procedure Debridement Debridement Debridement -Clinical Debridement Subcutaneous Subcutaneous Subcutaneous -Tissue Removed Subcutaneous Subcutaneous Subcutaneous -Post Debridement (cm) - Length 3.0 3.0 4.0 -Post Debridement (cm) - Width 2.6 5.0 3.7 -Post Debridement (cm) - Depth 0.1 0.1 0.1 -Total Square (Post) (cm) 7.80 15.00 14.80 -Area of Debridement (cm) - Length 3.0 3.0 4.0 -Area of Debridement (cm) - Width 2.6 5.0 3.7 -Total Square (Area) (cm) 7.80 15.00 14.80 -Tunneling No No No -Undermining/Tunneling No No No -Circular Undermining No No No -Wound/Ulcer Outcome Not Healed Not Healed Not Healed -Ulcer Cleansing gauze gauze -Foul Odor after Cleansing No No No -Bioengineered Tissue No No No -Bleeding Controlled with Pressure Pressure Pressure -Treatment Response Procedure Procedure Procedure Tolerated Well Tolerated Well Tolerated Well -Debridement - Subq, 1st 20sq cm No Yes Yes Pain Scale: 0-10 Numeric Is Patient Pain Free? Yes Yes Yes WC - Nurse 3 - General Ulcer D/C NN Start: 04/04/25 10:23 Freq: Status: Active Protocol: Activity Type Activity Date Activity User E-sign Co-sign Detail Recorded Client Recorded Date Recorded By Document 04/04/25 11:30 [id number] 04/04/25 11:31 Document 04/11/25 16:16 [id number] 04/11/25 16:17 Document 04/18/25 11:40 [id number] 04/18/25 11:42 04/04/25 04/11/25 04/18/25 11:30 16:16 11:40 Wound Care Center Nurse 3 20-right medial dorsal foot -Ulcer Cleansing Rinsed/ Rinsed/ Rinsed/ Irrigated with Irrigated with Irrigated with Saline Saline Saline -Foul Odor after Cleansing No No No -Primary Dressing Applied Aquacel Extra Aquacel AG 4x4, Aquacel Extra Optilok 5x5 1/2 -Primary Dressing Covered/Secured with Dry Gauze -Other Covering abd pad -Aquacel Extra 1 1 -Aquacel AG 4x4 1 -Optilok 5x5 1/2 1 19-right lateral dorsal foot -Ulcer Cleansing Rinsed/ Rinsed/ Rinsed/ Irrigated with Irrigated with Irrigated with Saline Saline Saline -Foul Odor after Cleansing No No No -Primary Dressing Applied Aquacel Extra Aquacel AG 4x4, Aquacel Extra Optilok 5x5 1/2 -Primary Dressing Covered/Secured with Dry Gauze Other -Other Covering abd pad -Aquacel Extra 0 0 -Aquacel AG 4x4 0 -Optilok 5x5 1/2 0 LLE -Tubular Bandage Double Layer Double Layer -Size of Tubigrip Used Size D Size D -Size D ($) 2 2 RLE -Lotion applied to leg before Yes compression wrap -Multi-Layered Wrap Application Unna Boot - Unna Boot - Unna Boot - Right Right Right -Unna- Right (Qty applied) 1 1 1 Pain Scale: 0-10 Numeric Is Patient Pain Free? Yes Yes Yes WC - Visit Discharge Discharge Condition Stable Stable Stable Ambulatory Status Ambulatory, Walker, Ambulatory, Walker, Wheelchair Walker, Wheelchair Wheelchair Transportation Private Auto Private Auto Private Auto Medication Reconcilliation completed & Yes Yes No provided to patient/care provider Clinical Summary of Care Provided Yes Yes No Charges/Coding Procedures Integumentary [id number]: [id number] Samina subq tissue 20 sq cm/< Assessment/Plan Assessment/Plan (1) Non-pressure 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 foot with fat layer exposed: CODE(S): L97.512 - Non-pressure 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 foot with fat layer exposed (2) Venous stasis dermatitis of right lower extremity: CODE(S): I87.2 - Venous insufficiency (chronic) (peripheral) (3) Venous insufficiency (chronic) (peripheral): CODE(S): I87.2 - Venous insufficiency (chronic) (peripheral) (4) Bilateral lower extremity edema: CODE(S): R60.0 - Localized edema (5) Swelling of both lower extremities: CODE(S): M79.89 - Other specified soft tissue disorders (6) Peripheral vascular disease: CODE(S): I73.9 - Peripheral vascular disease, unspecified (7) Debility: CODE(S): R53.81 - Other malaise (8) Tinea unguium: CODE(S): B35.1 - Tinea unguium (9) Polyneuropathy: CODE(S): G62.9 - Polyneuropathy, unspecified PLAN: Plan This is an 85-year-old male with deformities in his right lower extremity and 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 He presented anew with an ulceration on the dorsum and medial portion of his right foot. Once again, the patient has been advised to elevate his lower extremities as much as possible. Elevation is to be to heart level, or higher. He has been encouraged to sleep on a flat mattress at night. Continued compression by means of double Tubigrips (left leg) at the patient's [place] [facility] facility has been advised. A skin moisturizer such as Aquaphor has been recommended for long-term use for the dry, scaly, eczematous skin in the patient's lower extremities. On the right, we are to continue the use of moistened Aquacel Extra to the ulceration on the dorsum of the right foot. Compression will be provided by means of an Unna compression wrap, which will be changed twice weekly. It is noted that ultrasound assessment of the inferior vena cava and iliac vein stents was performed in July 2024, exhibiting normal venous flow patterns. It has been nearly 2 years since the patient's last lower extremity arterial study, and we have requested a repeat study to assess lower extremity arterial status. The patient is to return in 1 week for reevaluation. Total time: 25 minutes
[2025-04-25 11:03] VITALS: BP 111/54; PULSE 69; RESP 16; TEMP 35.9; BMI 24.4
--- NOTE | 2025-04-25 13:01 | PCM.WC.HP ---
History of Present Illness Date of Service: 04/25/25 Chief Complaint: Chronic, non-healing right foot ulcerations History of Wound: This is an 85-year-old male who has been a long-term patient at the [facility]. Until approximately 6 weeks prior to this presentation, the patient had been treated for ulcerations on his right foot and calf. His wounds were subsequently healed, and the patient was discharged on February 14, 2025. The patient has a history of venous stasis ulcerations, chronic venous insufficiency, and venous stasis dermatitis. At the time of his most recent discharge, the patient was instructed to continue the conservative treatment measures relative to his chronic venous disease, which included leg elevation, avoidance of prolonged idle sitting, activity as tolerated, and daily compression by means of Tubigrips. These instructions were conveyed to the patient's retirement staff. The patient recently presented with new ulcerations on the dorsum and medial portion of his right foot. He also has swelling and edema in his lower extremities bilaterally. 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 The patient is minimally ambulatory and only transfers from bed to wheelchair and wheelchair to bed. The patient is a resident of a [facility]. It is noted that the patient has previously undergone angioplasty and stent placement in the common iliac veins bilaterally, a procedure performed by Dr. Hossein Arvizu on July 09, 2023. 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 Cellulitis of leg, right Debility Ulcer of right heel and midfoot with fat layer exposed Ulcer of left lower extremity with fat layer exposed Ulcer of right lower extremity with fat layer exposed Hypertension Diabetes Vascular dementia Hyperlipidemia Polyneuropathy Heart failure Peripheral vascular disease Home Medications Medication Instructions Recorded Last Taken Type atorvastatin 40 mg tablet 40 mg PO QHS 10/09/22 Unknown History cyanocobalamin (vitamin B-12) 500 500 mcg PO DAILY 10/09/22 Unknown History mcg tablet diphenhydramine 25 2 tab PO QHS PRN Pain 10/09/22 Unknown History mg-acetaminophen 500 mg tablet (Acetaminophen PM Extra Strength) docusate sodium 100 mg capsule 100 mg PO BID 10/09/22 Unknown History furosemide 40 mg tablet (Lasix) 40 mg PO DAILY 10/09/22 Unknown History gabapentin 300 mg capsule 300 mg PO TID 10/09/22 Unknown History magnesium hydroxide 400 mg/5 mL 30 ml PO DAILY PRN Constipation 10/09/22 Unknown History oral suspension (Milk of Magnesia) metformin 500 mg tablet,extended 500 mg PO DAILY 10/09/22 Unknown History release 24 hr multivitamin 1 tab PO DAILY 10/09/22 Unknown History polyethylene glycol 3350 17 gram 17 g PO DAILY 10/09/22 Unknown History oral powder packet (Miralax) sennosides 8.6 mg capsule (senna) 8.6 mg PO DAILY 10/09/22 Unknown History tamsulosin 0.4 mg capsule 0.8 mg PO QHS 10/09/22 Unknown History ascorbic acid (vitamin C) 500 mg mg PO 08/13/23 Unknown History capsule cholecalciferol (vitamin D3) 25 25 mcg PO DAILY 08/13/23 Unknown History mcg (1,000 unit) capsule clopidogrel 75 mg tablet (Plavix) 75 mg PO DAILY 08/13/23 Unknown History warfarin 5 mg tablet 9 mg PO DAILY 08/13/23 Unknown History zinc acetate 50 mg (zinc) capsule 50 mg PO DAILY 08/13/23 Unknown History Allergy/AdvReac Type Severity Reaction Status Date / Time No Known Allergies Allergy Verified 01/13/24 11:13 Family History Other CAD (coronary artery disease) Colon cancer Heart disease Hypertension Myocardial infarction Thyroid disorder Social History Smoking Status: Never smoker Vital Signs Vital Signs Vital Signs: 04/25/25 11:03 Temperature 96.7 F L Temperature Source Temporal Pulse Rate 69 Respiratory Rate 16 Blood Pressure 111/54 L Blood Pressure Mean 73 Blood Pressure Source Monitor Weight Weight: 180 lb Body Mass Index (BMI) 24.4 Physical Exam Const alert, oriented x3 and no apparent distress General Appearance: cooperative, comfortable and well developed Orientation / Consciousness: awake, oriented to person, oriented to place and oriented to time Exam Limitations: no limitations HEENT normocephalic and head/scalp atraumatic Head and Scalp: normal to inspection, normocephalic and atraumatic Face and Sinus: normal facial exam Nose: external nose normal External Ear: external ears normal Eyes EOMs intact bilaterally Resp normal respiratory effort, normal air movement, no retractions and no use of accessory muscles Effort and Inspection: able to speak in complete sentences Skin Wound Narrative: An ulceration is present on the dorsal surface of the patient's right foot. It appears to be full-thickness, extending through all layers of the dermis and into subcutaneous tissues. Ulcer margins are well beveled. Dimensions are documented elsewhere. There has been no significant improvement within the last week. There is no sign of infection or cellulitis. There is a moderate amount of bioburden and nonviable tissue. There is also an ulceration on the medial aspect of the patient's right foot. It is also full-thickness in nature. Ulcer margins are well beveled. Dimensions are documented elsewhere. There is no sign of infection or cellulitis. There is a moderate amount of bioburden and nonviable tissue. Moderate swelling and edema are noted in the right lower extremity. Lipodermatosclerosis, eczematous dermatitis, and hyperpigmentation are noted in the right gaiter area. A flexion contracture of the knee and an equinus contracture of the ankle with a varus hindfoot alignment are noted. Neuro oriented x3, CN's II-XII intact bilaterally and moves all extremities Sensorium / Orientation: awake, alert, oriented to person, oriented to place and oriented to time Speech: speech normal Psych cooperative, affect normal and speech normal Attitude: calm Activity / Motor Behavior: appropriate eye contact Mood & Affect: euthymic mood Debridement Note Debridement Note Wound debrided: Ulceration of the dorsal and medial right foot Laterality: Right Wound Grade/Stage: Patricia Grade 1 Type of Debridement: Excisional debridement Anesthesia Used: 5% Lidocaine Gel Depth: Down to and including healthy tissue and in the subcutaneous layer Percentage of wound debrided: 100 Instrument Used: 5mm curette Tissue Removed: Bioburden and devitalized tissue Severity: Fat Layer Exposed Amount of bleeding with debridement: Mild Bleeding Controlled with: Compression and gauze Patient tolerated procedure: Patient tolerated procedure well Post-Debridement Measurements and Additional Note: Post-Debridement Measurements/Treatment WC - Nurse 1 - General Ulcer Assessment Start: 04/04/25 10:23 Freq: Status: Active Protocol: WC.LOWEXT Activity Type Activity Date Activity User E-sign Co-sign Detail Recorded Client Recorded Date Recorded By Document 04/04/25 10:23 JF [id number] 04/04/25 10:28 JF Document 04/11/25 10:40 JF [id number] 04/11/25 10:51 JF Document 04/18/25 10:56 JF [id number] 04/18/25 10:58 JF Document 04/25/25 11:03 TS [id number] 04/25/25 11:17 TS 04/04/25 04/11/25 04/18/25 10:23 10:40 10:56 WC - Today's Visit Information Type of service Initial Visit Follow-up Visit Follow-up Visit (Physician/CERTIFIED FINANCIAL PLANNER (Physician/CERTIFIED FINANCIAL PLANNER ) ) Arrival Mode Wheelchair Ambulatory, Ambulatory, Walker, Walker, Wheelchair Wheelchair Transfer Assistance Manual Patient Identification Verified (Name & Yes Yes Yes ) Patient Requires Transmission-Based No No No Precautions Safety Precautions Height and Weight Height 6 ft Weight 180 lb Weight in Pounds 180.0 lbs Body Mass Index (BMI) 24.4 24.4 24.4 BMI Classification Normal Normal Normal Vital Signs Temperature (97.8 F-99.1 F) 97.5 F L 96.7 F L 97.6 F L Temperature Source Temporal Temporal Temporal Pulse Rate (60-100) 82 60 62 Pulse Location Monitor Monitor Monitor Respiratory Rate (12-18) 16 16 18 Respiratory rate source Observation Observation Observation Blood Pressure (90/60-120/80) 107/80 115/56 L 100/62 Blood Pressure Mean 89 75 74 Source Monitor Monitor Monitor Position Semi-Fowlers Semi-Fowlers Semi-Fowlers Blood Pressure Location Right Arm Left Arm Right Arm History Since Last Visit- (Skip if this is Patient's initial visit) Have you changed medications since your Yes Yes last visit? Any new allergies or adverse reactions No No Had a fall/change in ADL's that may No No increase risk of falls Signs or symptoms of abuse and/or No neglect since last visit Have you been in the hospital since your No No last visit? Has dressing in place as prescribed Yes Yes Has compression in place as prescribed Yes Yes Has offloadiing in place as prescribed N/A N/A Experienced any changes in pain level or No No management Left Footwear Surgical Shoe Surgical Shoe Regular Shoe with pressure with pressure relief insole relief insole Right Footwear Surgical Shoe Surgical Shoe Regular Shoe with pressure with pressure relief insole relief insole Pain Scale: 0-10 Numeric Is Patient Pain Free? Yes Yes Yes 04/25/25 11:03 WC - Today's Visit Information Type of service Follow-up Visit (Physician/CERTIFIED FINANCIAL PLANNER ) Arrival Mode Wheelchair Transfer Assistance Patient Identification Verified (Name & Yes ) Patient Requires Transmission-Based No Precautions Safety Precautions Fall Prevention Height and Weight Height Weight Weight in Pounds Body Mass Index (BMI) 24.4 BMI Classification Normal Vital Signs Temperature (97.8 F-99.1 F) 96.7 F L Temperature Source Temporal Pulse Rate (60-100) 69 Pulse Location Monitor Respiratory Rate (12-18) 16 Respiratory rate source Observation Blood Pressure (90/60-120/80) 111/54 L Blood Pressure Mean 73 Source Monitor Position Blood Pressure Location History Since Last Visit- (Skip if this is Patient's initial visit) Have you changed medications since your No last visit? Any new allergies or adverse reactions No Had a fall/change in ADL's that may No increase risk of falls Signs or symptoms of abuse and/or No neglect since last visit Have you been in the hospital since your No last visit? Has dressing in place as prescribed Yes Has compression in place as prescribed Yes Has offloadiing in place as prescribed No Experienced any changes in pain level or No management Left Footwear Surgical Shoe with pressure relief insole Right Footwear Surgical Shoe with pressure relief insole Pain Scale: 0-10 Numeric Is Patient Pain Free? Yes - Nurse 1 - General Ulcer Measurement Start: 04/04/25 10:23 Freq: Status: Active Protocol: Activity Type Activity Date Activity User E-sign Co-sign Detail Recorded Client Recorded Date Recorded By Document 04/04/25 10:23 JUAN RAMON [id number] 04/04/25 10:28 JF Document 04/11/25 10:40 JF [id number] 04/11/25 10:51 JF Document 04/18/25 10:56 JF [id number] 04/18/25 10:58 JF Document 04/25/25 11:03 TS [id number] 04/25/25 11:17 TS 04/04/25 04/11/25 04/18/25 10:23 10:40 10:56 Wound Center Nurse 1 20-right medial dorsal foot -Combined with other wound No No No -Current Size (cm) - Length 1 1.5 1.2 -Current Size (cm) - Width 2 1.6 0.6 -Current Size (cm) - Depth 0.1 0.1 0.1 -Total Square Cm 2 2.40 0.72 -Date of Last Picture (Recall this field) -Photo Taken Yes Yes Yes -Epithelialization Medium 34-66% Medium 34-66% Medium 34-66% -Tunneling No No No -Undermining/Tunneling No No -Circular Undermining No No No -Exudate Amt Medium Small Small -Exudate Type Serosanguineous Serosanguineous Serosanguineous -Wound Margin Flat & Intact Flat & Intact Flat & Intact -Granulation Amt Medium (34-66%) Large (67-100%) Medium (34-66%) -Granulation Quality [place] Red Red -Slough/Fibrin Yes Yes Yes -Necrosis Amt Small (1-33%) Small (1-33%) Small (1-33%) -Necrotic Tissue Type Adherent Slough Adherent Slough Adherent Slough -Structure Exposed N/A N/A N/A -Texture (Yuliet-wound Skin Appearance) Assessed, Assessed, Assessed, Localized Edema Localized Edema Localized Edema -Moisture (Yuliet-wound Skin Appearance) No Abnormality, Assessed,Dry/ No Abnormality, Dry/Scaly Scaly Dry/Scaly -Color (Yuliet-wound Skin Appearance) Assessed Assessed, Assessed, Hemosiderin Hemosiderin Staining Staining -Temperature (Yuliet-wound Skin No Abnormality No Abnormality No Abnormality Appearance) (Pt Warm) (Pt Warm) (Pt Warm) -Tenderness on Palpation (Yuliet-wound No No No Skin Appearance) -Ulcer Cleansing Soap and Water Soap and Water Soap and Water -Foul Odor after Cleansing No No No -Anesthetic Used 5% Lidocaine 5% Lidocaine 5% Lidocaine Gel Gel Gel 19-right lateral dorsal foot -Combined with other wound No No No -Current Size (cm) - Length 3.3 3.2 4.2 -Current Size (cm) - Width 3.3 4.2 4.0 -Current Size (cm) - Depth 0.1 0.2 0.1 -Total Square Cm 10.89 13.44 16.80 -Date of Last Picture (Recall this field) -Photo Taken Yes Yes Yes -Epithelialization Small 1-33% Small 1-33% Small 1-33% -Tunneling No No No -Undermining/Tunneling No No No -Circular Undermining No No No -Exudate Amt Medium Medium Medium -Exudate Type Serosanguineous Serosanguineous Serosanguineous -Wound Margin Distinct, Flat & Intact Flat & Intact Outline Attached -Granulation Amt Medium (34-66%) Large (67-100%) Large (67-100%) -Granulation Quality [place] Red Red -Slough/Fibrin Yes Yes Yes -Necrosis Amt Medium (34-66%) Small (1-33%) Small (1-33%) -Necrotic Tissue Type Adherent Slough Adherent Slough Adherent Slough -Structure Exposed N/A N/A N/A -Texture (Yuliet-wound Skin Appearance) Assessed, Assessed, Assessed, Localized Edema Localized Edema Localized Edema -Moisture (Yuliet-wound Skin Appearance) Assessed,Dry/ Assessed,Dry/ Assessed,Dry/ Scaly Scaly Scaly -Color (Yuliet-wound Skin Appearance) Assessed Assessed, Assessed, Hemosiderin Hemosiderin Staining Staining -Temperature (Yuliet-wound Skin No Abnormality No Abnormality No Abnormality Appearance) (Pt Warm) (Pt Warm) (Pt Warm) -Tenderness on Palpation (Yuilet-wound No No No Skin Appearance) -Ulcer Cleansing Soap and Water Soap and Water Soap and Water -Foul Odor after Cleansing No Yes No -Anesthetic Used 5% Lidocaine 5% Lidocaine 5% Lidocaine Gel Gel Gel Lower Limb Edema Present Yes No Yes Right Calf (cm) 30 30 31.5 Right Ankle (cm) 22 22.5 22.9 Left Calf (cm) 31.0 Left Ankle (cm) 23.4 04/25/25 11:03 Wound Center Nurse 1 20-right medial dorsal foot -Combined with other wound No -Current Size (cm) - Length 1.2 -Current Size (cm) - Width 1 -Current Size (cm) - Depth 0.1 -Total Square Cm 1.2 -Date of Last Picture (Recall this 04/25/25 field) -Photo Taken Yes -Epithelialization Medium 34-66% -Tunneling No -Undermining/Tunneling No -Circular Undermining No -Exudate Amt Medium -Exudate Type Serosanguineous -Wound Margin Distinct, Outline Attached -Granulation Amt Medium (34-66%) -Granulation Quality [place] -Slough/Fibrin Yes -Necrosis Amt Medium (34-66%) -Necrotic Tissue Type Adherent Slough -Structure Exposed -Texture (Yuliet-wound Skin Appearance) Assessed -Moisture (Yuliet-wound Skin Appearance) Assessed,Dry/ Scaly -Color (Yuliet-wound Skin Appearance) Assessed -Temperature (Yuliet-wound Skin No Abnormality Appearance) (Pt Warm) -Tenderness on Palpation (Yuliet-wound Skin Appearance) -Ulcer Cleansing Soap and Water -Foul Odor after Cleansing No -Anesthetic Used 5% Lidocaine Gel 19-right lateral dorsal foot -Combined with other wound No -Current Size (cm) - Length 4 -Current Size (cm) - Width 3.5 -Current Size (cm) - Depth 0.1 -Total Square Cm 14.0 -Date of Last Picture (Recall this 04/25/25 field) -Photo Taken Yes -Epithelialization Medium 34-66% -Tunneling No -Undermining/Tunneling No -Circular Undermining No -Exudate Amt Medium -Exudate Type Serosanguineous -Wound Margin Distinct, Outline Attached -Granulation Amt Medium (34-66%) -Granulation Quality [place],Red -Slough/Fibrin Yes -Necrosis Amt Medium (34-66%) -Necrotic Tissue Type Adherent Slough -Structure Exposed None/Limited to Skin Breakdown -Texture (Yuliet-wound Skin Appearance) Assessed, Scarring -Moisture (Yuliet-wound Skin Appearance) No Abnormality, Dry/Scaly -Color (Yuliet-wound Skin Appearance) Assessed -Temperature (Yuliet-wound Skin No Abnormality Appearance) (Pt Warm) -Tenderness on Palpation (Yuliet-wound No Skin Appearance) -Ulcer Cleansing Soap and Water -Foul Odor after Cleansing No -Anesthetic Used 5% Lidocaine Gel Lower Limb Edema Present Yes Right Calf (cm) 33 Right Ankle (cm) 23.4 Left Calf (cm) Left Ankle (cm) WC - Nurse 2 - General Ulcer CM Notes Start: 04/04/25 10:23 Freq: Status: Active Protocol: Activity Type Activity Date Activity User E-sign Co-sign Detail Recorded Client Recorded Date Recorded By Document 04/04/25 10:42 DS [id number] 04/04/25 10:47 DS Document 04/11/25 11:16 DS [id number] 04/11/25 11:21 DS Document 04/18/25 11:12 DS [id number] 04/18/25 11:19 DS Document 04/25/25 11:32 DS [id number] 04/25/25 11:41 DS 04/04/25 04/11/25 04/18/25 10:42 11:16 11:12 Wound Center Nurse 2 20-right medial dorsal foot -Time 10:42 11:16 11:12 -Correct Patient Yes Yes Yes -Correct Side, Site, Position Yes Yes Yes -Correct Procedure Yes Yes Yes -Procedure Performed Yes Yes Yes -Type of Procedure Debridement Debridement Debridement -Clinical Debridement Subcutaneous Subcutaneous Subcutaneous -Tissue Removed Subcutaneous Subcutaneous Subcutaneous -Post Debridement (cm) - Length 2.3 1.5 0.5 -Post Debridement (cm) - Width 2.4 2.0 1.7 -Post Debridement (cm) - Depth 0.1 0.1 0.1 -Total Square (Post) (cm) 5.52 3.00 0.85 -Area of Debridement (cm) - Length 2.3 1.5 0.5 -Area of Debridement (cm) - Width 2.4 2.0 1.7 -Total Square (Area) (cm) 5.52 3.00 0.85 -Tunneling No No No -Undermining/Tunneling No No No -Circular Undermining No No No -Wound/Ulcer Outcome Not Healed Not Healed Not Healed -Ulcer Cleansing gauze gauze gauze -Foul Odor after Cleansing No No No -Bioengineered Tissue No No No -Bleeding Controlled with Pressure Pressure Pressure -Treatment Response Procedure Procedure Tolerated Well Tolerated Well -Debridement - Subq, 1st 20sq cm Yes No No 19-right lateral dorsal foot -Time 10:43 11:17 11:12 -Correct Patient Yes Yes Yes -Correct Side, Site, Position Yes Yes Yes -Correct Procedure Yes Yes Yes -Procedure Performed Yes Yes Yes -Type of Procedure Debridement Debridement Debridement -Clinical Debridement Subcutaneous Subcutaneous Subcutaneous -Tissue Removed Subcutaneous Subcutaneous Subcutaneous -Post Debridement (cm) - Length 3.0 3.0 4.0 -Post Debridement (cm) - Width 2.6 5.0 3.7 -Post Debridement (cm) - Depth 0.1 0.1 0.1 -Total Square (Post) (cm) 7.80 15.00 14.80 -Area of Debridement (cm) - Length 3.0 3.0 4.0 -Area of Debridement (cm) - Width 2.6 5.0 3.7 -Total Square (Area) (cm) 7.80 15.00 14.80 -Tunneling No No No -Undermining/Tunneling No No No -Circular Undermining No No No -Wound/Ulcer Outcome Not Healed Not Healed Not Healed -Ulcer Cleansing gauze gauze -Foul Odor after Cleansing No No No -Bioengineered Tissue No No No -Bleeding Controlled with Pressure Pressure Pressure -Treatment Response Procedure Procedure Procedure Tolerated Well Tolerated Well Tolerated Well -Debridement - Subq, 1st 20sq cm No Yes Yes Pain Scale: 0-10 Numeric Is Patient Pain Free? Yes Yes Yes 04/25/25 11:32 Wound Center Nurse 2 20-right medial dorsal foot -Time 11:32 -Correct Patient Yes -Correct Side, Site, Position Yes -Correct Procedure Yes -Procedure Performed Yes -Type of Procedure Debridement -Clinical Debridement Subcutaneous -Tissue Removed Subcutaneous -Post Debridement (cm) - Length 1.9 -Post Debridement (cm) - Width 1.5 -Post Debridement (cm) - Depth 0.1 -Total Square (Post) (cm) 2.85 -Area of Debridement (cm) - Length 1.9 -Area of Debridement (cm) - Width 1.5 -Total Square (Area) (cm) 2.85 -Tunneling No -Undermining/Tunneling No -Circular Undermining No -Wound/Ulcer Outcome Not Healed -Ulcer Cleansing Rinsed/ Irrigated with Saline -Foul Odor after Cleansing No -Bioengineered Tissue No -Bleeding Controlled with Pressure -Treatment Response Procedure Tolerated Well -Debridement - Subq, 1st 20sq cm No 19-right lateral dorsal foot -Time 11:32 -Correct Patient Yes -Correct Side, Site, Position Yes -Correct Procedure Yes -Procedure Performed Yes -Type of Procedure Debridement -Clinical Debridement Subcutaneous -Tissue Removed Subcutaneous -Post Debridement (cm) - Length 3.5 -Post Debridement (cm) - Width 4.7 -Post Debridement (cm) - Depth 0.1 -Total Square (Post) (cm) 16.45 -Area of Debridement (cm) - Length 3.5 -Area of Debridement (cm) - Width 4.7 -Total Square (Area) (cm) 16.45 -Tunneling No -Undermining/Tunneling No -Circular Undermining No -Wound/Ulcer Outcome Not Healed -Ulcer Cleansing Rinsed/ Irrigated with Saline -Foul Odor after Cleansing No -Bioengineered Tissue No -Bleeding Controlled with Pressure -Treatment Response Procedure Tolerated Well -Debridement - Subq, 1st 20sq cm Yes Pain Scale: 0-10 Numeric Is Patient Pain Free? Yes WC - Nurse 3 - General Ulcer D/C NN Start: 04/04/25 10:23 Freq: Status: Active Protocol: Activity Type Activity Date Activity User E-sign Co-sign Detail Recorded Client Recorded Date Recorded By Document 04/04/25 11:30 JF [id number] 04/04/25 11:31 Document 04/11/25 16:16 [id number] 04/11/25 16:17 JF Document 04/18/25 11:40 JF [id number] 04/18/25 11:42 JF Document 04/25/25 11:52 TS [id number] 04/25/25 11:55 TS 04/04/25 04/11/25 04/18/25 11:30 16:16 11:40 Wound Care Center Nurse 3 20-right medial dorsal foot -Ulcer Cleansing Rinsed/ Rinsed/ Rinsed/ Irrigated with Irrigated with Irrigated with Saline Saline Saline -Foul Odor after Cleansing No No No -Primary Dressing Applied Aquacel Extra Aquacel AG 4x4, Aquacel Extra Optilok 5x5 1/2 -Primary Dressing Covered/Secured with Dry Gauze -Other Covering abd pad -Aquacel Extra 1 1 -Aquacel AG 4x4 1 -Optilok 5x5 1/2 1 19-right lateral dorsal foot -Ulcer Cleansing Rinsed/ Rinsed/ Rinsed/ Irrigated with Irrigated with Irrigated with Saline Saline Saline -Foul Odor after Cleansing No No No -Primary Dressing Applied Aquacel Extra Aquacel AG 4x4, Aquacel Extra Optilok 5x5 1/2 -Primary Dressing Covered/Secured with Dry Gauze Other -Other Covering abd pad -Aquacel Extra 0 0 -Aquacel AG 4x4 0 -Optilok 5x5 1/2 0 LLE -Tubular Bandage Double Layer Double Layer -Size of Tubigrip Used Size D Size D -Size D ($) 2 2 RLE -Lotion applied to leg before Yes compression wrap -Multi-Layered Wrap Application Unna Boot - Unna Boot - Unna Boot - Right Right Right -Unna- Right (Qty applied) 1 1 1 Pain Scale: 0-10 Numeric Is Patient Pain Free? Yes Yes Yes WC - Visit Discharge Discharge Condition Stable Stable Stable Ambulatory Status Ambulatory, Walker, Ambulatory, Walker, Wheelchair Walker, Wheelchair Wheelchair Transportation Private Auto Private Auto Private Auto Medication Reconcilliation completed & Yes Yes No provided to patient/care provider Clinical Summary of Care Provided Yes Yes No 04/25/25 11:52 Wound Care Center Nurse 3 20-right medial dorsal foot -Ulcer Cleansing Rinsed/ Irrigated with Saline -Foul Odor after Cleansing -Primary Dressing Applied Aquacel Extra -Primary Dressing Covered/Secured with -Other Covering -Aquacel Extra 1 -Aquacel AG 4x4 -Optilok 5x5 1/2 19-right lateral dorsal foot -Ulcer Cleansing Rinsed/ Irrigated with Saline -Foul Odor after Cleansing -Primary Dressing Applied Aquacel Extra -Primary Dressing Covered/Secured with -Other Covering -Aquacel Extra 0 -Aquacel AG 4x4 -Optilok 5x5 1/2 LLE -Tubular Bandage -Size of Tubigrip Used -Size D ($) RLE -Lotion applied to leg before compression wrap -Multi-Layered Wrap Application Unna Boot - Right -Unna- Right (Qty applied) 1 Pain Scale: 0-10 Numeric Is Patient Pain Free? Yes WC - Visit Discharge Discharge Condition Stable Ambulatory Status Walker Transportation retirement transport Medication Reconcilliation completed & No provided to patient/care provider Clinical Summary of Care Provided Yes Charges/Coding Procedures Integumentary [id number]: [id number] Samina subq tissue 20 sq cm/< Assessment/Plan Assessment/Plan (1) Non-pressure 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 foot with fat layer exposed: CODE(S): L97.512 - Non-pressure 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 foot with fat layer exposed (2) Venous stasis dermatitis of right lower extremity: CODE(S): I87.2 - Venous insufficiency (chronic) (peripheral) (3) Venous insufficiency (chronic) (peripheral): CODE(S): I87.2 - Venous insufficiency (chronic) (peripheral) (4) Bilateral lower extremity edema: CODE(S): R60.0 - Localized edema (5) Swelling of both lower extremities: CODE(S): M79.89 - Other specified soft tissue disorders (6) Peripheral vascular disease: CODE(S): I73.9 - Peripheral vascular disease, unspecified (7) Debility: CODE(S): R53.81 - Other malaise (8) Tinea unguium: CODE(S): B35.1 - Tinea unguium (9) Polyneuropathy: CODE(S): G62.9 - Polyneuropathy, unspecified PLAN: Plan This is an 85-year-old male with deformities in his right lower extremity and 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 He presented anew with an ulceration on the dorsum and medial portion of his right foot. Once again, the patient has been advised to elevate his lower extremities as much as possible. Elevation is to be to heart level, or higher. He has been encouraged to sleep on a flat mattress at night. Continued compression by means of double Tubigrips (left leg) at the patient's retirement has been advised. A skin moisturizer such as Aquaphor has been recommended for long-term use for the dry, scaly, eczematous skin in the patient's lower extremities. On the right, we are to continue the use of moistened Aquacel Extra to the ulceration on the dorsum of the right foot. Compression will be provided by means of an Unna compression wrap, which will be changed twice weekly. It appears that the staff at the patient's retirement has failed to apply the Unna compression wrap in satisfactory fashion, so the patient will be asked to return later this week for reapplication of his Unna compression wrap. It is noted that ultrasound assessment of the inferior vena cava and iliac vein stents was performed in July 2024, exhibiting normal venous flow patterns. It has been nearly 2 years since the patient's last lower extremity arterial study, and we requested a repeat study to assess lower extremity arterial status. A right lower extremity duplex ultrasound has been performed at the patient's retirement, not the diagnostic study which had been intended. Nonetheless, the duplex study which is of limited value. The conclusion reads "no evidence of hemodynamically significant arterial stenosis in the visualized artery", but does not specify to which artery it refers. Furthermore, "monophasic waveforms are seen in the right lower extremity…", though there is indication that the common femoral artery demonstrated biphasic waveforms and the mid superficial femoral artery demonstrated triphasic waveforms. These findings leave question as to the status of the more distal arterial perfusion in the right lower extremity. The patient is to return in 1 week for reevaluation. Total time: 26 minutes
--- NOTE | 2025-04-26 10:08 | WC ---
PHOTO-RIGHT MED DORSAL 04/25/25
--- NOTE | 2025-04-26 10:08 | WC ---
PHOTO-RIGHT LATERAL 04/25/25
[2025-04-28 13:48] VITALS: BP 106/60; PULSE 79; RESP 17; TEMP 36.2; BMI 24.4
== END 2025-04-28 23:59 | disposition home or self-care (01) ==
LOC: WC 13:15
PROVIDERS: PCP Family Medicine; Referring Provider Surgery; Visit Provider Surgery
DX: E11.621 Type 2 diabetes mellitus with foot ulcer (principal); L97.512 Non-pressure 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 foot with fat layer exposed; E11.59 Type 2 diabetes mellitus with other circulatory complications; E11.42 Type 2 diabetes mellitus with diabetic polyneuropathy; E11.51 Type 2 diabetes mellitus with diabetic peripheral angiopathy without gangrene; E78.5 Hyperlipidemia, unspecified; R53.81 Other malaise; M24.561 Contracture, right knee; I87.2 Venous insufficiency (chronic) (peripheral); B35.1 Tinea unguium; R60.0 Localized edema; M79.89 Other specified soft tissue disorders; I10 Essential (primary) hypertension
CPT/HCPCS: 11042; 29580; 87070; 87075; 87077; 87186; 87205; 99213; G0463